=== PATIENT | female | born 1980 | race Caucasian/White ===

== ENCOUNTER 2017-10-19 21:39 | Emergency (ER) | payer MEDICARE, MEDICAID, SELFPAY ==
[2017-10-19 21:45] VITALS: BP 144/87; PULSE 86; RESP 16; TEMP 36.7; O2SAT 98
--- NOTE | 2017-10-20 03:03 | ED.GENADUL_ITS ---
Discharge Plan Discharge Details Chief Complaint: RashLesion Clinical Impression: Hymenoptera reaction, Insect bite Primary Care Provider: Talisha Treviño ED Provider: Yoel White Disposition Patient Disposition: HOME Condition: Good Home Meds and New Rx's Prescriptions: New diphenhydramine-zinc acetate [Benadryl Extra Strength] 2-0.1 % cream 1 applic TP TID Qty: 15 RF: 0 No Action hydrochlorothiazide 12.5 MG capsule PO RF: 0 amitriptyline 100 mg Tablet RF: 0 Discharge Instructions Instructions: Insect Bite or Sting (ED) Additional Instructions: Please use the Benadryl cream as directed. Please follow-up with your primary care provider as soon as possible for reassessment. Please avoid any further contact with bedbugs. If you notice any worsening of your symptoms, or any new symptoms such as vomiting, diarrhea, fever, chills, shortness of breath, chest pain, numbness, weakness, or fainting , please return immediately to the emergency department for reevaluation. Please follow up with your primary care provider as soon as possible for reassessment and reevaluation. As always, it was a pleasure participating in your medical care today. Medical Decision Making MDM Narrative Medical decision making narrative: This is a 37-year-old female who presents for evaluation of bug bites, she is concerned that is secondary to bedbugs. She does demonstrate 5 lesions, 2 on her left calf, 3 on her scalp. There is no evidence of infection, abscess, drainage, or other significant abnormality. They are mildly itchy. With no signs of systemic infection, I feel that she is safe for discharge home. It may be from bedbugs or some other hymenoptera or arthropod bite. We will give the patient a prescription for Benadryl cream. Recommended close follow-up with PCP. We discussed red flags for which return the patient understood. I have extensively reviewed the treatment plan and discharge instructions with the patient. I have addressed all patient concerns at this time. The patient was made aware of what symptoms to monitor for that would warrant a return to the emergency department. Discussed the plan with the patient, they demonstrate verbal understanding and agreement with our assessment and plan at this time. HPI - General Adult General Date/Time Provider Initiated Documentation: 10/19/17 22:28 . HPI Narrative: This is a 37-year-old female with a past medical history of hypertension, tubal appendectomy, who presents today for evaluation of bites on her head and her calf. The patient states that she has bedbugs at home, and noticed some bites on her left calf and scalp. She talked to the landlord about it as well as her health services department who recommended she come to the ER for documentation of the bites. Patient admits to mild itching for these areas. She denies any systemic symptoms of fevers or chills. She denies any history of significant severe allergies, anaphylaxis, no other complaints. She has no other complaints at this time. She denies IV or illicit drug use. Related Data Home Medications Medication Instructions Recorded Confirmed hydrochlorothiazide 0 PO 07/14/17 amitriptyline 10/19/17 Previous Rx's Medication Instructions Recorded diphenhydramine-zinc acetate 1 applic TP TID #15 gm 10/19/17 [Benadryl Extra Strength] Allergies Allergy/AdvReac Type Severity Reaction Status Date / Time No Known Allergies Allergy Unverified 08/05/17 10:08 General Stated Complaint: RashLesion CLIFFORD: 5 Review of Systems Review of Systems 10 point review of systems was performed, pertinent positives and negatives are noted in the history of present illness. [facility] Medical History Abdominal pain Asthma Calcium nephrolithiasis Chronic back pain Dyspareunia, female Hypertension Tobacco use Social History Smoking/Tobacco Use Status: Current every day Surgical History Ligation of fallopian tube Tooth extraction bone spur R foot. Exam Narrative Exam Narrative: 1.Const: Well-nourished, Well-developed, appearing stated age 2.Eyes: PERRL, no conjunctival injection, and symmetrical lids. 3.ENT: Atraumatic external nose and ears. Moist MM. Neck: Symmetric, trachea midline, No thyromegaly. 4.CVS: +S1/S2, No murmurs or gallops. Peripheral pulses 2+ and equal in all extremities. Brisk capillary refill in all extremities. 5.RESP: Unlabored respiratory effort. Clear to auscultation bilaterally. No wheezes rales or rhonchi 6.GI: Soft, Nontender/Nondistended, No hepatosplenomegaly. No guarding or rebound. 7.MSK: Normocephalic/Atraumatic, Extremities w/o deformity or ttp No cyanosis or clubbing, Normal movement of all extremities 8.Skin: Warm, Dry. The patient has 5 total small erythematous lesions roughly 5 mm in diameter each. They look like small mosquito bites or insect bites. 2 are located on her left calf, and 3 are on her scalp. No bleeding, no signs of infection. No discharge. No signs of an abscess. No other abnormalities. 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 Sensation grossly intact, no focal neurologic deficits. 10.Psych: (AAO) x3. Appropriate mood and affect Course Vital Signs Temperature 36.7 C 10/19/17 21:45 Pulse 86 10/19/17 21:45 Respiratory Rate 16 10/19/17 21:45 Blood Pressure 144/87 H 10/19/17 21:45 Pulse Oximetry 98 10/19/17 21:45 Temperature 36.7 C 10/19/17 21:45 Pulse 86 10/19/17 21:45 Respiratory Rate 16 10/19/17 21:45 Blood Pressure 144/87 H 10/19/17 21:45 Pulse Oximetry 98 10/19/17 21:45
== END 2017-10-19 22:36 | disposition home or self-care (01) ==
PROVIDERS: Emergency Provider Student in an Organized Health Care Education/Training Program; PCP Family Medicine
DX: S80.862A Insect bite (nonvenomous), left lower leg, initial encounter (principal); S00.06XA Insect bite (nonvenomous) of scalp, initial encounter; W57.XXXA Bitten or stung by nonvenomous insect and other nonvenomous arthropods, initial encounter; I10 Essential (primary) hypertension
CPT/HCPCS: 99283

== ENCOUNTER 2018-02-14 20:37 | Emergency (ER) | payer MEDICARE, MEDICAID, SELFPAY ==
[2018-02-14 20:44] VITALS: BP 129/71; PULSE 110; RESP 16; TEMP 36.5; O2SAT 96
[2018-02-14 21:28] VITALS: BP 129/71; PULSE 110; RESP 16; TEMP 36.5; O2SAT 96
--- NOTE | 2018-02-14 21:31 | ED.GENADUL_ITS ---
Discharge Plan Disposition Patient Disposition: HOME Condition: Fair Discharge Details Chief Complaint: EarProblem Clinical Impression: URI (upper respiratory infection) Primary Care Provider: Talisha Treviño ED Provider: Ambreen Robins Home Meds and New Rx's Prescriptions: New amoxicillin 500 mg capsule 500 mg PO TID Qty: 21 RF: 0 Continued lisinopril 10 mg Tablet 10 mg PO DAILY RF: 0 cyclobenzaprine 10 mg Tablet 10 mg PO BID RF: 0 amitriptyline 100 mg Tablet RF: 0 Discharge Instructions Instructions: Upper Respiratory Infection (ED) Additional Instructions: Encourage hydration. Tylenol and/or Motrin as needed for discomfort. At this point, you have fluid behind your ear but it is likely viral. However, if your pain increases, persists over the next 48 hours, you develop fever begin antibiotics as prescribed. If you begin the antibiotics please take the entire course. If you develop shortness of breath, difficulty breathing or other new/worsening symptoms please seek care urgently once again. Follow up with primary care in one week if not improving. Referrals: Talisha Treviño [Primary Care Provider] - Medical Decision Making Patient is a 37 year old female, accompanied by daughter, with c/c of right ear pain and left eye irritation. Reprots that she has had cold with cough, congestion and sore throat for the past 2-3 days. Denies fevers/chill. No GI upset. States that right ear began hurting over the past 24-48 hours. No change in hearing. States that she feels that she has water in her ear. Has tried to flush the ear. Also noted discharge from the left eye yesterday. None recently. Was also noting the left eye to be injected. On exam, patient appears nontoxic. She has fluid behind the right TM with mild erythema. Left eye is normal. No discharge, no injection. PERRLA. Lungs clear. Advised that at this time her history and exam is most consistent with viral URI. Encouraged hydration. Tylneol and/or Ibuprofen. Will prescribed Amoxicllin with a watch and wait approach with insructions on when to begin abx. Advised on worsening symptoms that should prompt her to seek care urgently once again. Advised f/u with PCP in one week if not improving. All of her questions and concerns were addressed, she is in agreement iwth this plan. HPI General Mode of arrival: ambulatory . Date/Time Provider Initiated Documentation: 02/14/18 21:07 . Limitations to Documentation: no limitations . Information obtained by: patient and family . History of Present Illness 37 year old F presents to the emergency department with the chief complaint of URI symptoms , described as moderate, Quality is described as aching (right ear), and is localized to the head (right ear) and mouth (sore throat). Patient reports no radiation. Patient started experiencing this day(s) (4) and it has been constant. No relieving factors improve symptom(s), No exacerbating factors reported . Patient notes cough; denies fever/chills, headaches, loss of appetite, nausea/vomiting, rash and shortness of breath. Patient did receive the following treatments prior to arrival, none Related Data Home Medications Medication Instructions Recorded Confirmed amitriptyline 10/19/17 amoxicillin 500 mg PO TID #21 cap 02/14/18 cyclobenzaprine 10 mg PO BID 02/14/18 02/14/18 lisinopril 10 mg PO DAILY 02/14/18 02/14/18 Previous Rx's Medication Instructions Recorded amoxicillin 500 mg PO TID #21 cap 02/14/18 Allergies Allergy/AdvReac Type Severity Reaction Status Date / Time No Known Allergies Allergy Unverified 02/14/18 20:49 General Stated Complaint: EarProblem CLIFFORD: 4 Review of Systems Constitutional Reports as per HPI and Denies headache(s) Eyes Reports as per HPI, Denies blurry vision, Denies change in vision, Reports eye discharge (had left eye discharge yesterday), Denies itchy eyes and Denies eye pain ENT Reports as per HPI, Denies abnormal hearing, Denies ear discharge, Reports otalgia, Denies headache(s), Reports nasal congestion, Denies sinus pain, Reports sore throat, Denies throat swelling and Denies tongue swelling Cardiovascular Reports as per HPI, Denies chest pain and Denies dyspnea Respiratory Reports as per HPI, Reports cough, Denies pain on inspiration, Denies pain with cough, Denies dyspnea and Denies wheezing Gastrointestinal Reports as per HPI, Denies abdominal pain, Denies change in bowel habits, Denies nausea and Denies vomiting Integumentary/Breasts Reports as per HPI and Denies rash Neurologic Denies abnormal hearing and Denies headache(s) Allergic/Immunologic Denies itchy eyes, Denies throat swelling, Denies tongue swelling and Denies wheezing PFSH Medical History Abdominal pain Asthma Calcium nephrolithiasis Chronic back pain Dyspareunia, female Hypertension Tobacco use Surgical History Ligation of fallopian tube Tooth extraction bone spur R foot. Social History Smoking/Tobacco Use Status: Current every day History History Para 0 Hx # Term Pregnancies Multiple births Hx # Pregnancies Ectopic pregnancies AB induced Hx Number of Living Children AB spontaneous Exam Const General: cooperative, healthy appearing, comfortable, no acute distress, well developed and well groomed Nutritional Appearance: average body habitus and well nourished Orientation: alert and awake HENMT Head: normal to inspection, normocephalic and atraumatic Ears: hearing grossly normal bilaterally, external ears normal, TM normal on the left, mastoids normal and TM abnormal wth effusion serous on the right and erythematous on the right; with no loss of landmarks, not obstructed by cerumen, not perforated and not retracted General nose exam: external nose normal and nares normal Face and sinus: normal facial exam, sinuses nontender and face symmetric Mouth: oral mucosae normal, lip normal, tongue normal, oropharynx normal and moist mucous membranes Teeth and gingiva: dentition normal Throat: posterior oropharynx normal, tonsils normal and uvula midline Eyes General: appearance normal, both eyes and all related structures Neck Neck: normal visual inspection, full ROM, no lymphadenopathy and no meningeal signs Resp Effort & Inspection: normal respiratory effort, able to speak in complete sentences and no respiratory distress Auscultation: clear to auscultation bilaterally, no rales, no rhonchi and no wheezes Cardio Rate: regular rate Rhythm: regular rhythm Heart Sounds: S1 normal and S2 normal Skin General skin exam: no rashes or lesions noted Neuro General: alert and awake Cognition: normal cognition Speech: speech normal Gait: normal gait Psych Appearance: grossly normal and well kempt Mental Status: mental status grossly normal Speech and Movement: speech and movement normal Course Vital Signs Temperature 36.5 C 02/14/18 20:44 Pulse 110 H 02/14/18 20:44 Respiratory Rate 16 02/14/18 20:44 Blood Pressure 129/71 02/14/18 20:44 Pulse Oximetry 96 02/14/18 20:44 Temperature 36.5 C 02/14/18 20:44 Temperature Source Skin 02/14/18 20:44 Pulse 110 H 02/14/18 20:44 Respiratory Rate 16 02/14/18 20:44 Respiratory Effort Non-Labored 02/14/18 20:51 Blood Pressure 129/71 02/14/18 20:44 Pulse Oximetry 96 02/14/18 20:44 Oxygen Delivery Method Room Air 02/14/18 20:44 Oxygen Flow Rate 0 02/14/18 20:44
== END 2018-02-14 21:30 | disposition home or self-care (01) ==
PROVIDERS: Emergency Provider Physician Assistant; PCP Family Medicine
DX: J06.9 Acute upper respiratory infection, unspecified (principal); I10 Essential (primary) hypertension
CPT/HCPCS: 99283

== ENCOUNTER 2018-06-01 20:03 | Emergency (ER) | payer MEDICARE, MEDICAID, SELFPAY ==
[2018-06-01 20:04] VITALS: BP 156/86; PULSE 108; RESP 16; TEMP 36.5; O2SAT 99
--- NOTE | 2018-06-01 20:06 | W.ED.GENAD ---
Discharge Plan Disposition Patient Disposition: HOME Condition: Good Discharge Details Chief Complaint: Orthopedic Clinical Impression: Finger pain, right Primary Care Provider: Talisha Treviño ED Provider: Yoni Harris Meds and New Rx's Prescriptions: New naproxen sodium 500 mg tablet, ER multiphase 24 hr 1,000 mg PO DAILY Qty: 20 RF: 0 Continued cyclobenzaprine 10 mg Tablet 10 mg PO BID RF: 0 albuterol sulfate [Ventolin HFA] 90 mcg/actuation Hfa Aerosol Inhaler 2 puff Inhalation Q6H PRNRF: 0 amitriptyline 100 mg Tablet RF: 0 Discharge Instructions Additional Instructions: X-rays reveal no significant bony injury or deformity. With a splint during the day to prevent overuse. You may remove at night while sleeping. Take naproxen once a day as directed. Follow-up with primary care next week. Return to ED for fever, increased swelling/redness. Referrals: Talisha Treviño [Primary Care Provider] - Medical Decision Making Does not appear to be related to gout or septic joint. There is no erythema or warmth. She denies any specific injury but will get x-ray since it is not getting better. If negative will continue nonsteroidals but also placed in a splint for mobilization and referred back to primary care in a week or so. Patient x-ray per my review is negative. There is no bony abnormality identified. Patient placed in a baseball aluminum/foam splint by me. Patient told to wear during the day but not necessarily at night. Will be placed on naproxen twice a day for the next week. Follow-up with primary care next week. Return to ED if fever, increasing pain/redness/swelling. HPI General Mode of arrival: ambulatory. Date/Time Provider Initiated Documentation: 06/01/18 20:05. Limitations to Documentation: no limitations. Information obtained by: patient. HPI Narrative: Patient presents to ED with right index finger pain and swelling. There is no specific injury that she recalls. It is mostly swollen and painful at the PIP joint. She has difficulty bending the finger. This started about a week and a half ago. She has used ice, ibuprofen, acetaminophen. She denies fevers. She denies any redness or warmth to the area. She was hoping that it would just get better but since it has not and she feels is getting worse she came to the ED tonight. She is right-hand dominant. Related Data Home Medications Medication Instructions Recorded Confirmed amitriptyline 10/19/17 cyclobenzaprine 10 mg PO BID 02/14/18 06/01/18 albuterol sulfate [Ventolin HFA] 2 puff INHALATION Q6H PRN 06/01/18 06/01/18 naproxen sodium 1,000 mg PO DAILY #20 tab 06/01/18 Previous Rx's Medication Instructions Recorded naproxen sodium 1,000 mg PO DAILY #20 tab 06/01/18 Allergies Allergy/AdvReac Type Severity Reaction Status Date / Time No Known Allergies Allergy Unverified 06/01/18 20:11 General CLIFFORD: 4 Review of Systems Constitutional Denies fever(s) Musculoskeletal Reports joint swelling and Reports stiffness Integumentary/Breasts Denies erythema and Denies sores [facility] Medical History Abdominal pain (Chronic) Asthma (Chronic) Calcium nephrolithiasis (Chronic) Chronic back pain (Chronic) Hypertension (Chronic) Tobacco use (Chronic) Surgical History Ligation of fallopian tube (Chronic) Tooth extraction (Resolved) bone spur R foot. (Resolved) Social History Smoking/Tobacco Use Status: Current every day Alcohol Intake: never Drug use: Never Substance use type: does not use Do you feel safe at home: Yes Do you feel safe in your relationship?: Yes History History Para 0 Hx # Term Pregnancies Multiple births Hx # Pregnancies Ectopic pregnancies AB induced Hx Number of Living Children AB spontaneous Exam Narrative Exam Narrative: Well-developed well-nourished female in no acute distress. Afebrile. Right hand with swelling to the index PIP joint. No erythema or warmth noted. No swelling of any other joints noted. Decreased range of motion of the index finger because of pain. Only the PIP joint is affected. Wrist is normal. Left hand normal. Procedures Orthopedic Splinting/Casting Injury #1: Side: right Upper Extremity Injury Location: finger Upper Extremity Immobilizer: aluminum form splint
--- NOTE | 2018-06-01 20:11 | ED.GENADUL_ITS ---
Discharge Plan Disposition Patient Disposition: HOME Condition: Good Discharge Details Chief Complaint: Orthopedic Clinical Impression: Finger pain, right Primary Care Provider: Talisha Treviño ED Provider: Yoni Harris Meds and New Rx's Prescriptions: New naproxen sodium 500 mg tablet, ER multiphase 24 hr 1,000 mg PO DAILY Qty: 20 RF: 0 Continued cyclobenzaprine 10 mg Tablet 10 mg PO BID RF: 0 albuterol sulfate [Ventolin HFA] 90 mcg/actuation Hfa Aerosol Inhaler 2 puff Inhalation Q6H PRNRF: 0 amitriptyline 100 mg Tablet RF: 0 Discharge Instructions Additional Instructions: X-rays reveal no significant bony injury or deformity. With a splint during the day to prevent overuse. You may remove at night while sleeping. Take naproxen once a day as directed. Follow-up with primary care next week. Return to ED for fever, increased swelling/redness. Referrals: Talisha Treviño [Primary Care Provider] - Medical Decision Making Does not appear to be related to gout or septic joint. There is no erythema or warmth. She denies any specific injury but will get x-ray since it is not getting better. If negative will continue nonsteroidals but also placed in a splint for mobilization and referred back to primary care in a week or so. Patient x-ray per my review is negative. There is no bony abnormality identified. Patient placed in a baseball aluminum/foam splint by me. Patient told to wear during the day but not necessarily at night. Will be placed on naproxen twice a day for the next week. Follow-up with primary care next week. Return to ED if fever, increasing pain/redness/swelling. HPI General Mode of arrival: ambulatory . Date/Time Provider Initiated Documentation: 06/01/18 20:05 . Limitations to Documentation: no limitations . Information obtained by: patient . HPI Narrative: Patient presents to ED with right index finger pain and swelling. There is no specific injury that she recalls. It is mostly swollen and painful at the PIP joint. She has difficulty bending the finger. This started about a week and a half ago. She has used ice, ibuprofen, acetaminophen. She denies fevers. She denies any redness or warmth to the area. She was hoping that it would just get better but since it has not and she feels is getting worse she came to the ED tonight. She is right-hand dominant. Related Data Home Medications Medication Instructions Recorded Confirmed amitriptyline 10/19/17 cyclobenzaprine 10 mg PO BID 02/14/18 06/01/18 albuterol sulfate [Ventolin HFA] 2 puff INHALATION Q6H PRN 06/01/18 06/01/18 naproxen sodium 1,000 mg PO DAILY #20 tab 06/01/18 Previous Rx's Medication Instructions Recorded naproxen sodium 1,000 mg PO DAILY #20 tab 06/01/18 Allergies Allergy/AdvReac Type Severity Reaction Status Date / Time No Known Allergies Allergy Unverified 06/01/18 20:11 General CLIFFORD: 4 Review of Systems Constitutional Denies fever(s) Musculoskeletal Reports joint swelling and Reports stiffness Integumentary/Breasts Denies erythema and Denies sores [facility] Medical History Abdominal pain (Chronic) Asthma (Chronic) Calcium nephrolithiasis (Chronic) Chronic back pain (Chronic) Hypertension (Chronic) Tobacco use (Chronic) Surgical History Ligation of fallopian tube (Chronic) Tooth extraction (Resolved) bone spur R foot. (Resolved) Social History Smoking/Tobacco Use Status: Current every day Alcohol Intake: never Drug use: Never Substance use type: does not use Do you feel safe at home: Yes Do you feel safe in your relationship?: Yes History History Para 0 Hx # Term Pregnancies Multiple births Hx # Pregnancies Ectopic pregnancies AB induced Hx Number of Living Children AB spontaneous Exam Narrative Exam Narrative: Well-developed well-nourished female in no acute distress. Afebrile. Right hand with swelling to the index PIP joint. No erythema or warmth noted. No swelling of any other joints noted. Decreased range of motion of the index finger because of pain. Only the PIP joint is affected. Wrist is normal. Left hand normal. Procedures Orthopedic Splinting/Casting Injury #1: Side: right Upper Extremity Injury Location: finger Upper Extremity Immobilizer: aluminum form splint
--- NOTE | 2018-06-01 20:19 | DI.RAD_ITS ---
SYMPTOM/DIAGNOSIS: PAIN, SWELLING PIP RIGHT INDEX FINGER: Three views were obtained. No fracture is seen.
--- NOTE | 2018-06-01 21:13 | DI.VRAD_ITS ---
EXAM: XR Right Finger(s), 2 or More Views EXAM DATE/TIME: 06/01/2018 8:45 PM CLINICAL HISTORY: 38 years old, female; Signs and symptoms; Other: Pain and swelling pip TECHNIQUE: Imaging protocol: XR Right finger minimum 2 views. COMPARISON: No relevant prior studies available. FINDINGS: Bones/joints: Grossly unremarkable. Soft tissues: Suggestion of mild soft tissue swelling. IMPRESSION: Mild soft tissue swelling, no aggressive osseous lesions identified. Dictated and Authenticated by: Myron Peters MD. Ordering:YUNG Vallejo MD
== END 2018-06-01 21:15 | disposition home or self-care (01) ==
PROVIDERS: Emergency Provider Emergency Medicine; PCP Family Medicine
DX: M79.644 Pain in right finger(s) (principal)
CPT/HCPCS: 99283; 73140; 99282

== ENCOUNTER 2018-06-02 11:29 | Emergency (ER) | payer MEDICARE, MEDICAID, SELFPAY ==
[2018-06-02 11:31] VITALS: BP 141/76; PULSE 100; RESP 24; TEMP 36.6; O2SAT 100
--- NOTE | 2018-06-02 11:47 | DI.RAD_ITS ---
SYMPTOMS/DIAGNOSIS: SHORTNESS OF BREATH PA AND LATERAL CHEST: The heart is not enlarged. There is a retrocardiac hiatus hernia. The lungs are clear. No pleural effusion seen. CONCLUSION: No evidence of acute process.
--- NOTE | 2018-06-02 11:52 | ED.GENADUL_ITS ---
Discharge Plan Disposition Patient Disposition: HOME Condition: Improving Discharge Details Chief Complaint: SOB Clinical Impression: Shortness of breath Primary Care Provider: Talisha Treviño ED Provider: Bj Prince Home Meds and New Rx's Prescriptions: Continued cyclobenzaprine 10 mg Tablet 10 mg PO BID RF: 0 albuterol sulfate [Ventolin HFA] 90 mcg/actuation Hfa Aerosol Inhaler 2 puff Inhalation Q6H PRNRF: 0 naproxen sodium 500 mg tablet, ER multiphase 24 hr 1,000 mg PO DAILY Qty: 20 RF: 0 amitriptyline 100 mg Tablet RF: 0 Discharge Instructions Instructions: Dyspnea (ED) Additional Instructions: Continue to use your inhaler as directed and make sure that you use this with the spacer as it will give you more medication into your lungs and help with your shortness of breath. Please follow-up with respiratory therapy for further testing and return to the emergency department for any new or significant worsening of symptoms or follow-up with your primary care as needed for reassessment. Referrals: Talisha Treviño [Primary Care Provider] - (As needed for reassessment or if not improving) Discharge Data Discharge Date/Time-TO BE ENTERED AT DEPARTURE: 06/02/18 14:30 Medical Decision Making Patient presenting the emergency department for chief complaint of shortness of breath. Patient states that she has had a chronic cough for over the past month but today while riding in the back She started getting some shortness of breath. She used an inhaler which did not seem to help much and when she went up the stairs to her apartment she had continued shortness of breath causing her to come to the emergency department due to feeling that her inhaler did not help her. Patient denies any fever chills, productive cough, hemoptysis, syncope or chest pain. Physical exam is unremarkable and shows actually clear lung sounds with no diminished, no crackles no wheeze, patient is slightly tachypneic otherwise exam is unremarkable specifically showing no hypoxia. Given the patient is a smoker we do plan on doing chest x-ray and checking d-dimer along with labs given duration of symptoms. Pending results patient given albuterol nebulizer. Review of labs show no leukocytosis and a chronic anemia, low CO2 otherwise not deny diagnostic CMP, negative d-dimer. Chest x-ray shows no acute findings. Patient reassessed and states some improvement after albuterol nebulizer so RT was consulted for spacer instructions as patient states that she does not have a spacer. Patient does report improvement of symptoms after using inhaler with spacer. I feel that given patient's history of smoking there may be a chance she is developing COPD but at this time I also question possible anxiety as a source of her event today. Patient encouraged to continue to use albuterol inhaler and pulmonary function test referral was also placed to have possibility of COPD further evaluated. After discussion of diagnosis and plan of care patient has no further needs, questions, or concerns and states clear understanding to return to the emergency department for any worsening symptoms. HPI General Mode of arrival: ambulatory . Date/Time Provider Initiated Documentation: 06/02/18 11:30 . Limitations to Documentation: no limitations . Information obtained by: patient and RN notes reviewed . History of Present Illness 38 year old F presents to the emergency department with the chief complaint of Shortness of breath, Quality is described as other (Denies pain), Patient started experiencing this month(s) (1-worsening over the past couple hours) and it has been constant. No relieving factors improve symptom(s), Patient did receive the following treatments prior to arrival, other (Albuterol inhaler) Related Data Home Medications Medication Instructions Recorded Confirmed amitriptyline 10/19/17 cyclobenzaprine 10 mg PO BID 02/14/18 06/01/18 albuterol sulfate [Ventolin HFA] 2 puff INHALATION Q6H PRN 06/01/18 06/01/18 naproxen sodium 1,000 mg PO DAILY #20 tab 06/01/18 Previous Rx's Medication Instructions Recorded naproxen sodium 1,000 mg PO DAILY #20 tab 06/01/18 Allergies Allergy/AdvReac Type Severity Reaction Status Date / Time No Known Allergies Allergy Unverified 06/01/18 20:11 General Stated Complaint: SOB CLIFFORD: 3 Review of Systems Constitutional Denies chills, Denies fever(s) and Denies malaise Cardiovascular Denies chest pain, Denies chest pain with activity, Denies syncope, Denies irregular heart rhythm and Reports dyspnea Respiratory Reports as per HPI, Reports cough, Denies hemoptysis and Reports dyspnea Neurologic Denies syncope Psychiatric Denies anxiety PFSH Medical History Abdominal pain (Chronic) Asthma (Chronic) Calcium nephrolithiasis (Chronic) Chronic back pain (Chronic) Hypertension (Chronic) Tobacco use (Chronic) Surgical History Ligation of fallopian tube (Chronic) Tooth extraction (Resolved) bone spur R foot. (Resolved) Social History Smoking/Tobacco Use Status: Current every day Alcohol Intake: never Drug use: Never Substance use type: does not use Do you feel safe at home: Yes Do you feel safe in your relationship?: Yes History History Para 0 Hx # Term Pregnancies Multiple births Hx # Pregnancies Ectopic pregnancies AB induced Hx Number of Living Children AB spontaneous Exam Const General: cooperative, healthy appearing, comfortable, no acute distress, not diaphoretic and not ill appearing Nutritional Appearance: average body habitus Orientation: alert, awake and oriented x3 Limitations: mental status not altered Neck Neck: normal visual inspection, full ROM, trachea midline, supple and no anterior neck swelling Thyroid: thyroid normal Carotids: normal carotid upstroke and no bruits Chest Chest: normal inspection of the chest Resp Effort & Inspection: normal respiratory effort and able to speak in complete sentences Auscultation: clear to auscultation bilaterally Cardio Jugular venous pressure: no JVD Palpation: normal PMI Rate: regular rate Rhythm: regular rhythm Heart Sounds: S1 normal, S2 normal, no click, no gallops, no murmurs and no rubs Bruits: no abdominal aortic bruits and no carotid bruits Pulses: radial pulses present bilaterally 2+ Skin General skin exam: no rashes or lesions noted Neuro General: alert, awake, oriented x3, tone normal and moves all extremities Course Vital Signs Temperature 36.6 C 06/02/18 11:31 Pulse 100 H 06/02/18 11:31 Respiratory Rate 24 06/02/18 11:31 Blood Pressure 141/76 H 06/02/18 11:31 Pulse Oximetry 100 06/02/18 11:31 Temperature 36.6 C 06/02/18 11:31 Temperature Source Skin 06/02/18 11:31 Pulse 100 H 06/02/18 11:31 Respiratory Rate 24 06/02/18 11:31 Respiratory Effort 06/02/18 11:46 Blood Pressure 141/76 H 06/02/18 11:31 Blood Pressure Position Sitting 06/02/18 11:31 Pulse Oximetry 100 06/02/18 11:31 Oxygen Delivery Method Room Air 06/02/18 11:31 Oxygen Flow Rate 0 06/02/18 11:31 Pain Level 5 06/02/18 11:31
[2018-06-02] MEDS: Normal Saline Flush 10 ML SYR IVP (12:00)
[2018-06-02 12:09] LABS: Abs Immature Grans 0.03 k/cumm (0.0-0.09); Absolute Basophil Count 0.06 k/cumm (0.0-0.2); Absolute Eosinophil Count 0.15 k/cumm (0.0-0.7); Absolute Lymphocyte Count 2.83 k/cumm (1.2-3.4); Absolute Monocyte Count 0.73 k/cumm (0.11-0.7); Absolute Neutrophil Count 5.82 k/cumm (1.2-6.7); Basophils % 0.6; Eosinophils % 1.6; HCT 36.4 % (36.0-46.0); HGB 11.4 g/dL (12.0-15.5); Immature Grans % 0.3; Lymphocytes % 29.4; Mean Corp. HGB Concentration 31.3 g/dL (32.0-36.0); Mean Corpuscular Hemoglobin 22.5 pg (27.0-33.0); Mean Corpuscular Volume 71.9 fL (80-95); Mean Platelet Volume 10.4 fL (8.0-11.0); Monocytes % 7.6; Neutrophils % 60.5; Platelet Count 385 x1000/uL (130-400); RBC 5.06 m/cumm (4.00-5.20); RBC Distribution Width 17.8 % (11.7-14.6); White Blood Cell Count 9.62 k/cumm (4.4-10.8)
[2018-06-02 12:21] LABS: ALT 20 U/L (12-78); AST 10 U/L (15-37); Albumin 3.9 g/dL (3.4-5.0); Alkaline Phosphatase 110 U/L (46-116); Anion Gap 13.2 mmol/L (3-11); BUN 16 mg/dL (7-18); Bilirubin, Total 0.2 mg/dL (0.2-1.0); CO2 20.8 mmol/L (21.0-32.0); CREATININE 0.94 mg/dL (0.55-1.02); Calcium 9.1 mg/dL (8.5-10.1); Chloride 105 mmol/L (98-107); Glucose 177 mg/dL (70-100); Potassium 3.6 mmol/L (3.5-5.1); Sodium 139 mmol/L (136-145); Total Protein 8.2 g/dL (6.4-8.2)
[2018-06-02 12:40] LABS: D-Dimer 246 ng/mlFEU (<500)
[2018-06-02 12:43] LABS: Anisocytosis 2+; Hypochromasia 1+; Microcytosis 2+; Poikilocytes 2+; Polychromasia Present
[2018-06-02 12:53] VITALS: RESP 24
[2018-06-02 12:57] LABS: Diff Comment Diff Reviewed
[2018-06-02] MEDS: Albuterol 2.5 MG/3 ML INH SOLN VIAL UPD (12:58)
[2018-06-02 14:33] VITALS: BP 132/70; PULSE 82; RESP 18; TEMP 36.6; O2SAT 100
== END 2018-06-02 14:30 | disposition home or self-care (01) ==
PROVIDERS: Emergency Provider Nurse Practitioner Family; PCP Family Medicine
DX: R06.02 Shortness of breath (principal); D50.9 Iron deficiency anemia, unspecified; F17.210 Nicotine dependence, cigarettes, uncomplicated
CPT/HCPCS: 36415; 80053; 94640; 99284; 71046; 85025; 85379; J7613

== ENCOUNTER 2018-06-09 14:50 | Emergency (ER) | payer MEDICARE, MEDICAID, SELFPAY ==
[2018-06-09 14:52] VITALS: BP 132/76; PULSE 104; RESP 16; TEMP 36.5; O2SAT 96
--- NOTE | 2018-06-09 15:12 | DI.RAD_ITS ---
SYMPTOMS/DIAGNOSIS: PAIN, INJURY RIGHT INDEX FINGER: No fracture or dislocation is seen. IMPRESSION: Negative right index finger.
--- NOTE | 2018-06-09 15:16 | W.ED.GENAD ---
Discharge Plan Disposition Patient Disposition: HOME Condition: Stable Discharge Details Chief Complaint: Recheck Clinical Impression: Mallet deformity of right index finger Primary Care Provider: Talisha Treviño ED Provider: Bj Prince Home Meds and New Rx's Prescriptions: Continued cyclobenzaprine 10 mg Tablet 10 mg PO BID RF: 0 albuterol sulfate [Ventolin HFA] 90 mcg/actuation Hfa Aerosol Inhaler 2 puff Inhalation Q6H PRNRF: 0 naproxen sodium 500 mg tablet, ER multiphase 24 hr 1,000 mg PO DAILY Qty: 20 RF: 0 amitriptyline 100 mg Tablet RF: 0 Discharge Instructions Instructions: Jammed Finger (ED) Additional Instructions: Please continue to take [id number] naproxen or ibuprofen acetaminophen combination as directed on bottles. Please call orthopedic office on Tuesday for arrangement of follow-up appointment. Please wear mallet splint at all times. Referrals: Cisco Smith MD [ [facility] STAFF PHYSICIAN] - (Call the office for arrangement of follow-up appointment) Discharge Data Discharge Date/Time-TO BE ENTERED AT DEPARTURE: 06/09/18 16:15 Medical Decision Making Patient presenting to the emergency department for chief complaint of right index finger injury and pain. Patient states that she had injured it approximately 2 weeks ago and seen in the emergency department and was placed in a foam metal splint. Pain had not changed as she intermittently wore the splint over the last 2 weeks but then today she reinjured her finger stating she bent it backwards and then after then could not fully straighten her finger. Physical exam shows some swelling and tenderness to the PIP with mallet deformity to the DIP along with inability to fully extend DIP. Patient does otherwise have flexion of the finger and both flexion and extension movement of PIP.. Exam is otherwise unremarkable. Plan to perform radiological imaging to rule out avulsion fracture but mostly suspicious of ligamentous type injury. Patient given ibuprofen acetaminophen pending results. Review of radiological imaging shows no signs of acute fracture so patient placed in mallet finger splinting. And placed upon Ortho list for arrangement of follow-up appointment. Given the patient was in a straight finger splint. After discussion of diagnosis and plan of care patient has no further needs, questions, or concerns and states clear understanding to return to the emergency department for any worsening symptoms. HPI General Mode of arrival: ambulatory. Date/Time Provider Initiated Documentation: 06/09/18 14:50. Limitations to Documentation: no limitations. Information obtained by: patient and RN notes reviewed. History of Present Illness 38 year old F presents to the emergency department with the chief complaint of finger pain, described as severe, with intensity rated at 10. Quality is described as sharp, and is localized to the right and upper extremity. Patient started experiencing this week(s) (2) and it has been constant. No relieving factors improve symptom(s), Movement worsens symptoms . Patient notes no other symptoms.. Patient did receive the following treatments prior to arrival, NSAID Related Data Home Medications Medication Instructions Recorded Confirmed amitriptyline 10/19/17 cyclobenzaprine 10 mg PO BID 02/14/18 06/01/18 albuterol sulfate [Ventolin HFA] 2 puff INHALATION Q6H PRN 06/01/18 06/01/18 naproxen sodium 1,000 mg PO DAILY #20 tab 06/01/18 Previous Rx's Medication Instructions Recorded naproxen sodium 1,000 mg PO DAILY #20 tab 06/01/18 Allergies Allergy/AdvReac Type Severity Reaction Status Date / Time No Known Allergies Allergy Unverified 06/01/18 20:11 General Stated Complaint: Recheck CLIFFORD: 5 Review of Systems Musculoskeletal Reports as per HPI, Reports joint swelling, Reports limited range of motion, Denies numbness and Denies tingling Integumentary/Breasts Denies rash Neurologic Denies numbness and Denies tingling [facility] Medical History Abdominal pain (Chronic) Asthma (Chronic) Calcium nephrolithiasis (Chronic) Chronic back pain (Chronic) Hypertension (Chronic) Tobacco use (Chronic) Surgical History Ligation of fallopian tube (Chronic) Tooth extraction (Resolved) bone spur R foot. (Resolved) Social History Smoking/Tobacco Use Status: Current every day Alcohol Intake: never Drug use: Never Substance use type: does not use Do you feel safe at home: Yes Do you feel safe in your relationship?: Yes History History Para 0 Hx # Term Pregnancies Multiple births Hx # Pregnancies Ectopic pregnancies AB induced Hx Number of Living Children AB spontaneous Exam Const General: cooperative and no acute distress Orientation: alert, awake and oriented x3 Resp Effort & Inspection: normal respiratory effort and able to speak in complete sentences Cardio Rate: regular rate Rhythm: regular rhythm Extrem Right upper extremity: wrist Details: normal to inspection and normal ROM; no tenderness and hand Details: normal capillary refill, neurosensory exam normal, tendon exam abnormal Location: function limited secondary to pain (2nd digit), tenderness Location: of the 2nd digit Location: at the PIP joint and at the DIP joint, swelling Location: of the 2nd digit Location: at the PIP joint and other (Mallet finger deformity to the second digit) Course Vital Signs Temperature 36.5 C 06/09/18 14:52 Pulse 104 H 06/09/18 14:52 Respiratory Rate 16 06/09/18 14:52 Blood Pressure 132/76 06/09/18 14:52 Pulse Oximetry 96 06/09/18 14:52 Temperature 36.5 C 06/09/18 14:52 Temperature Source Skin 06/09/18 14:52 Pulse 104 H 06/09/18 14:52 Respiratory Rate 16 06/09/18 14:52 Respiratory Effort Non-Labored 06/09/18 14:58 Blood Pressure 132/76 06/09/18 14:52 Blood Pressure Position Sitting 06/09/18 14:52 Pulse Oximetry 96 06/09/18 14:52 Oxygen Delivery Method Room Air 06/09/18 14:52 Oxygen Flow Rate 0 06/09/18 14:52 Pain Level 10 06/09/18 14:52
[2018-06-09] MEDS: Ibuprofen 600 MG TAB PO (15:38)
[2018-06-09] MEDS: Acetaminophen 325 MG TAB 650 MG PO (15:38)
[2018-06-09 16:16] VITALS: BP 132/76; PULSE 104; RESP 16; TEMP 36.5; O2SAT 96
== END 2018-06-09 16:15 | disposition home or self-care (01) ==
PROVIDERS: Emergency Provider Nurse Practitioner Family; PCP Family Medicine
DX: S69.81XA Other specified injuries of right wrist, hand and finger(s), initial encounter (principal); X50.9XXA Other and unspecified overexertion or strenuous movements or postures, initial encounter; M20.011 Mallet finger of right finger(s)
CPT/HCPCS: 29125; 99283; 73140

== ENCOUNTER → 2018-06-20 10:33 | Outpatient (BNVA) | payer MEDICARE, MEDICAID, SELFPAY | PROVIDERS: PCP Family Medicine; Referring Provider Family Medicine; Visit Provider Orthopaedic Surgery | DX: M79.644 Pain in right finger(s) (principal) | CPT/HCPCS: 99202; 99212 ==

== ENCOUNTER 2018-07-19 16:02 | Emergency (ER) | payer MEDICARE, MEDICAID, SELFPAY ==
[2018-07-19 16:15] VITALS: BP 145/71; PULSE 96; RESP 16; TEMP 36.7; O2SAT 98
--- NOTE | 2018-07-19 17:15 | DI.CT_ITS ---
SYMPTOM/DIAGNOSIS: LEFT LOWER PELVIC PAIN CT ABDOMEN AND PELVIS: Comparison is 07/08/16. Dependent atelectatic changes are seen in the lung bases which are otherwise clear. The liver has a normal appearance and no suspicious hepatic mass is seen. The portal, superior mesenteric and splenic veins are patent. The gallbladder is negative. There is no biliary ductal dilatation. The pancreas, spleen and adrenal glands are unremarkable. There are bilateral hypodense lesions seen in the kidneys most likely reflect cysts. No suspicious solid renal mass or obstruction is identified. The urinary bladder is intact. There is a 2.1 cm peripherally enhancing cyst in the left ovary likely reflecting a recently ruptured follicle. The reproductive organs are otherwise unremarkable. The abdominal aorta is of normal caliber with mild atherosclerosis. No significant abdominal or pelvic adenopathy, ascites or pneumoperitoneum id present. There is a moderate amount of stool seen throughout the colon. No evidence of bowel obstruction or inflammation is seen. There is a normal appendix present. Degenerative changes are seen in the spine. IMPRESSION: Findings suggestive of a recently ruptured cyst or left ovarian follicle measuring 2.1 cm. 2. Moderate amount of retained stool in the bowel.
[2018-07-19 17:53] LABS: Lactate-non-spesis 0.9 mmol/l (0.6-1.4)
[2018-07-19 17:54] LABS: Abs Immature Grans 0.01 k/cumm (0.0-0.09); Absolute Basophil Count 0.05 k/cumm (0.0-0.2); Absolute Eosinophil Count 0.11 k/cumm (0.0-0.7); Absolute Lymphocyte Count 2.81 k/cumm (1.2-3.4); Absolute Neutrophil Count 3.26 k/cumm (1.2-6.7); Basophils % 0.7; Eosinophils % 1.6; HCT 33.8 % (36.0-46.0); HGB 10.4 g/dL (12.0-15.5); Immature Grans % 0.1; Lymphocytes % 40.5; Mean Corp. HGB Concentration 30.8 g/dL (32.0-36.0); Mean Corpuscular Hemoglobin 21.8 pg (27.0-33.0); Mean Platelet Volume 10.1 fL (8.0-11.0); Monocytes % 10.1; Platelet Count 415 x1000/uL (130-400); RBC 4.76 m/cumm (4.00-5.20); RBC Distribution Width 18.5 % (11.7-14.6); White Blood Cell Count 6.94 k/cumm (4.4-10.8)
[2018-07-19 18:00] LABS: Bilirubin Negative (Negative); Blood Moderate (Negative); Clarity Clear; Glucose Negative (Negative); Ketones Negative (Negative); Leukocyte Esterase Negative (Negative); Nitrite Negative (Negative); Specific Gravity >= 1.030 (1.005-1.025); Urobilinogen 0.2 EU/dL (Up TO 0.2); pH 5.5 (5-8)
[2018-07-19 18:03] LABS: Bacteria Few HPF (Negative); Casts Negative LPF (Negative); Crystals Negative HPF (Negative); Epithelial Cells Many HPF (Negative); Mucus Heavy (Negative); WBC 0-2 HPF (0-5)
[2018-07-19 18:04] LABS: C & S Indicated? No/Sq. Contamination
[2018-07-19] MEDS: MORPHine 10 MG/ML VIAL 4 MG IVP (18:06)
[2018-07-19] MEDS: Ketorolac 15 MG/ML VIAL IVP (18:06)
[2018-07-19] MEDS: Normal Saline 1,000 ML 1000 ML IV (18:07)
[2018-07-19 18:11] LABS: ALT 17 U/L (12-78); AST 12 U/L (15-37); Albumin 3.6 g/dL (3.4-5.0); Alkaline Phosphatase 86 U/L (46-116); Anion Gap 9.9 mmol/L (3-11); BUN 9 mg/dL (7-18); Bilirubin, Total 0.1 mg/dL (0.2-1.0); CO2 23.1 mmol/L (21.0-32.0); CREATININE 0.71 mg/dL (0.55-1.02); Chloride 105 mmol/L (98-107); Glucose 94 mg/dL (70-100); Lipase 79 U/L (73-393); Sodium 138 mmol/L (136-145); Total Protein 7.3 g/dL (6.4-8.2)
[2018-07-19 18:14] LABS: Anisocytosis 1+; Hypochromasia 1+; Microcytosis 1+
--- NOTE | 2018-07-19 18:37 | ED.GENADUL_ITS ---
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 Primary Care Provider: Talisha Treviño ED Provider: Yoel White Home Meds and New Rx's Prescriptions: New hydrocodone-acetaminophen [Whitehouse] 7.5-325 mg tablet 1 tab PO Q6H PRN (Reason: pain) Qty: 5 RF: 0 acetaminophen [Mapap Extra Strength] 500 MG tablet 1,000 mg PO Q6H 5 Days Qty: 60 RF: 0 ibuprofen [Motrin IB] 200 MG tablet 600 mg PO Q6H 5 Days Qty: 60 RF: 0 metronidazole 0.75 % gel 1 appful VG BID 5 Days Qty: 70 RF: 0 No Action cyclobenzaprine 10 mg Tablet 10 mg PO BID RF: 0 albuterol sulfate [Ventolin HFA] 90 mcg/actuation Hfa Aerosol Inhaler 2 puff Inhalation Q6H PRNRF: 0 naproxen sodium 500 mg tablet, ER multiphase 24 hr 1,000 mg PO DAILY Qty: 20 RF: 0 amitriptyline 100 mg Tablet RF: 0 Discharge Instructions Instructions: Ovarian Cyst (ED) Additional Instructions: Please follow-up promptly with Dr. Moya at [facility]. Please take the medications as needed for pain. If you do decide to take the Whitehouse, do not take any Tylenol with it as it already has some Tylenol in it. If you notice any worsening of your symptoms, or any new symptoms such as worsening vaginal bleeding, vomiting, diarrhea, fever, chills, shortness of breath, chest pain, numbness, weakness, or fainting , please return immediately to the emergency department for reevaluation. Please follow up with your primary care provider as soon as possible for reassessment and reevaluation. As always, it was a pleasure participating in your medical care today. Referrals: Roslyn Moya MD [ [facility] STAFF PHYSICIAN] - Medical Decision Making This is a 38-year-old female with past medical history of tubal ligation who presents today for vaginal bleeding. Patient states that she had her period 9 days ago, had 7 days without any bleeding, and then bleeding and left-sided pelvic pain for the last 4 days. Exam demonstrates notable reproducible tenderness in the left lower quadrant, in addition to tenderness on the left side bimanual exam. Mild bleeding is noted in the vaginal vault on exam. No other significant abnormalities. Differential includes atypical ectopic , ruptured ovarian cyst, or tubo-ovarian abscess less likely. We will get a CT scan, treat the patient's pain rehydrate and reassess. 9 PM Patient's laboratory work-up has returned, vital signs remain normal, no significant white count, hemoglobin is 10.4 which is near her baseline but slightly lower than normal. Electrolytes normal renal function stable, lipase normal, urinalysis shows no evidence of infection. CT scan was ordered and shows evidence of a 2.1 cm collapsed cyst suggestive of a ruptured ovarian cyst. After initial medications the patient states that she is feeling much better. No tachycardia and no hypotension, no signs of severe blood loss or hemodynamic compromise. I did contact Dr. Moya and discussed the case with her, she recommends close follow-up, and close outpatient reevaluation. She did also give the option of admission if the patient's pain was not controlled. I did discuss this with the patient, at this time the patient states that she feels much better and would like to go home. We discussed the risks and benefits of this and the patient understands. Patient will be discharged respecting her wishes to this shared decision making process. I had a long discussion with the patient regarding the importance of close follow-up and prompt return if she has any return or worsening of her symptoms. Additionally I did request that Dr. Moya make certain that prompt follow-up appointment is made, and she agrees to this and states that she will contact their able to get this follow-up made. Patient will be discharged home. Diagnosis ruptured ovarian cyst. I have extensively reviewed the treatment plan and discharge instructions with the patient. I have addressed all patient concerns at this time. The patient was made aware of what symptoms to monitor for that would warrant a return to the emergency department. Discussed the plan with the patient, they demonstrate verb al understanding and agreement with our assessment and plan at this time. EXAM: CT Abdomen and Pelvis With Contrast EXAM DATE/TIME: 07/19/2018 5:17 PM CLINICAL HISTORY: 38 years old, female; Abdominal pain; Patient HX: Llq pain TECHNIQUE: Imaging protocol: Axial computed tomography images of the abdomen and pelvis with intravenous contrast. Coronal and sagittal reformatted images were created and reviewed. COMPARISON: CT ABD PELVIS WITH CONTRAST 11/02/2015 9:58 AM FINDINGS: Lungs: Visualized lung bases are clear. Heart: Heart size normal. ABDOMEN: Liver: Normal size and contour. No mass lesions. Gallbladder and bile ducts: Normal. No calcified stones. No ductal dilation. Pancreas: Normal. No inflammatory changes or ductal dilation. Spleen: Normal. No splenomegaly. Adrenals: Normal. No adrenal mass. Kidneys and ureters: 6 mm probable cyst in the upper pole cortex of the right kidney. 9 mm probable cyst in the lower pole cortex of the right kidney. 6 cm probable cyst in the upper pole of the left kidney. The kidneys are otherwise unremarkable. No hydronephrosis or urolithiasis. Stomach and bowel: The configuration of the GE junction suggests prior fundoplication without evidence of acute associated complication. No evidence of obstruction.. The small bowel is normal with no evidence of obstruction. There is moderate stool distributed in the mid and proximal colon suggesting constipation. Appendix: The appendix is normal in caliber and demonstrates no evidence of appendicitis. PELVIS: Bladder: Unremarkable as visualized. Reproductive: 2.1 cm collapsed appearing cystic lesion in the left ovary with peripheral enhancement suggesting a recently ruptured cyst/follicle. This is within physiologic range but could produce pain symptoms. ABDOMEN and PELVIS: Intraperitoneal space: No free fluid or air. Bones/joints: No acute osseous abnormalities. Soft tissues: Unremarkable. Vasculature: Mild atherosclerotic aortoiliac calcification without aneurysm. Lymph nodes: No adenopathy. IMPRESSION: 1. 2.1 cm collapsed appearing peripherally enhancing cyst in the left ovary suggesting a recently ruptured cyst/follicle. 2. There is moderate stool distributed in the mid and proximal colon suggesting constipation. Thank you for allowing us to participate in the care of your patient. Dictated and Authenticated by: Yefri Guerra MD 07/19/2018 7:10 PM Eastern Time ([place] & [place]) HPI General Date/Time Provider Initiated Documentation: 07/19/18 16:19 . HPI Narrative: This is a 38-year-old female with a past medical history of tubal ligation, kidney stones, hypertension, who presents today for evaluation of left lower quadrant abdominal and pelvic pain. The patient states that she had a regular. 10 days ago, she had 1 week of no symptoms and no vaginal bleeding, and then for the last 4 days she developed left lower quadrant and left-sided pelvic pain, in conjunction with vaginal spotting. It is gradually been getting worse and is been unchanged with NSAIDs. She denies any vomiting, diarrhea, fever, chills, right-sided pain. She does have a history of kidney stones and states that this feels different. She denies any other complaints. She denies any recent STDs or other vaginal discharge previous to this. Related Data Home Medications Medication Instructions Recorded Confirmed amitriptyline 10/19/17 06/20/18 cyclobenzaprine 10 mg PO BID 02/14/18 07/19/18 albuterol sulfate [Ventolin HFA] 2 puff INHALATION Q6H PRN 06/01/18 07/19/18 naproxen sodium 1,000 mg PO DAILY #20 tab 06/01/18 07/19/18 acetaminophen [Mapap Extra 1,000 mg PO Q6H 5 Days #60 tab 07/19/18 Strength] hydrocodone-acetaminophen [Whitehouse] 1 tab PO Q6H PRN #5 tab 07/19/18 ibuprofen [Motrin Ib] 600 mg PO Q6H 5 Days #60 tab 07/19/18 metronidazole 1 appful VG BID 5 Days #70 gm 07/19/18 Previous Rx's Medication Instructions Recorded naproxen sodium 1,000 mg PO DAILY #20 tab 06/01/18 acetaminophen [Mapap Extra 1,000 mg PO Q6H 5 Days #60 tab 07/19/18 Strength] hydrocodone-acetaminophen [Whitehouse] 1 tab PO Q6H PRN #5 tab 07/19/18 ibuprofen [Motrin Ib] 600 mg PO Q6H 5 Days #60 tab 07/19/18 metronidazole 1 appful VG BID 5 Days #70 gm 07/19/18 Allergies Allergy/AdvReac Type Severity Reaction Status Date / Time No Known Allergies Allergy Unverified 07/19/18 16:18 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: 3 Review of Systems Review of Systems All systems reviewed & are unremarkable except as noted in HPI and below PFSH Social History Smoking/Tobacco Use Status: Current every day Alcohol Intake: never Drug use: Never Substance use type: does not use Do you feel safe at home: Yes Do you feel safe in your relationship?: Yes History History Para 0 Hx # Term Pregnancies Multiple births Hx # Pregnancies Ectopic pregnancies AB induced Hx Number of Living Children AB spontaneous Exam Narrative Exam Narrative: 1.Const: Well-nourished, Well-developed, appearing stated age 2.Eyes: PERRL, no conjunctival injection, and symmetrical lids. 3.ENT: Atraumatic external nose and ears. Moist MM. Neck: Symmetric, trachea midline, No thyromegaly. 4.CVS: +S1/S2, No murmurs or gallops. Peripheral pulses 2+ and equal in all extremities. Brisk capillary refill in all extremities. 5.RESP: Unlabored respiratory effort. Clear to auscultation bilaterally. No wheezes rales or rhonchi 6.GI: Soft,Nondistended, No hepatosplenomegaly. Left lower quadrant abdominal and pelvic tenderness. Vaginal exam was performed with female nurse Rachele at bedside, and she demonstrates mild cervical motion tenderness and notable tenderness for her left bimanual exam.. Mild bleeding is present. No cervical lesions. 7.MSK: Normocephalic/Atraumatic, Extremities w/o deformity or ttp No cyanosis or clubbing, Normal movement of all extremities 8.Skin: Warm, Dry. No rashes or lesions. 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 Sensation grossly intact, no focal neurologic deficits. 10.Psych: (AAO) x3. Appropriate mood and affect Course Vital Signs Temperature 36.7 C 07/19/18 16:15 Pulse 96 H 07/19/18 16:15 Respiratory Rate 16 07/19/18 16:15 Blood Pressure 145/71 H 07/19/18 16:15 Pulse Oximetry 98 07/19/18 16:15 Temperature 36.7 C 07/19/18 16:15 Temperature Source Skin 07/19/18 16:15 Pulse 96 H 07/19/18 16:15 Respiratory Rate 16 07/19/18 16:15 Respiratory Effort Non-Labored 07/19/18 16:15 Blood Pressure 145/71 H 07/19/18 16:15 Blood Pressure Position Sitting 07/19/18 16:15 Pulse Oximetry 98 07/19/18 16:15 Oxygen Delivery Method Room Air 07/19/18 16:15 Oxygen Flow Rate 0 07/19/18 16:15 Pain Level 6 07/19/18 17:52 Lab/Test Results Lab/Test Results: 07/19/18 18:20 Vaginal Vaginitis Screen - Pending Laboratory Tests Range/Units 07/19/18 07/19/18 07/19/18 17:28 17:46 17:46 WBC (4.4-10.8) k/cumm RBC (4.00-5.20) m/cumm Hgb (12.0-15.5) g/dL Hct (36.0-46.0) % MCV (80-95) fL MCH (27.0-33.0) pg MCHC (32.0-36.0) g/dL RDW (11.7-14.6) % Plt Count (130-400) x1000/uL MPV (8.0-11.0) fL Immature Gran % Neutrophils % Lymphocytes % Monocytes % Eosinophils % Basophils % Absolute Neutrophils (1.2-6.7) k/cumm Absolute Lymphocytes (1.2-3.4) k/cumm Absolute Monocytes (0.11-0.7) k/cumm Absolute Eosinophils (0.0-0.7) k/cumm Absolute Basophils (0.0-0.2) k/cumm RBC Morphology Hypochromasia Anisocytosis Microcytosis Sodium (136-145) mmol/L 138 Potassium (3.5-5.1) mmol/L 4.0 Chloride (98-107) mmol/L 105 Carbon Dioxide (21.0-32.0) mmol/L 23.1 Anion Gap (3-11) mmol/L 9.9 BUN (7-18) mg/dL 9 Creatinine (0.55-1.02) mg/dL 0.71 Estimated GFR/1.73 m2 (mL/min/1.73m2) >= 60.00 Glucose (70-100) mg/dL 94 Lactate (0.6-1.4) mmol/l 0.9 Calcium (8.5-10.1) mg/dL 9.0 Total Bilirubin (0.2-1.0) mg/dL 0.1 L AST (15-37) U/L 12 L ALT (12-78) U/L 17 Alkaline Phosphatase (46-116) U/L 86 Total Protein (6.4-8.2) g/dL 7.3 Albumin (3.4-5.0) g/dL 3.6 Lipase (73-393) U/L 79 Urine Color (Yellow) Yellow Urine Clarity Clear Urine pH (5-8) 5.5 Ur Specific [place] (1.005-1.025) >= 1.030 H Urine Protein (Negative) mg/dL Negative Urine Ketones (Negative) mg/dL Negative Urine Blood (Negative) Moderate H Urine Nitrite (Negative) Negative Urine Bilirubin (Negative) Negative Urine Urobilinogen (Up TO 0.2) EU/dL 0.2 Ur Leukocyte Esterase (Negative) Negative Urine RBC (0-2) 5-10 H Urine WBC (0-5) HPF 0-2 Ur Epithelial Cells (Negative) HPF Many Urine Crystals (Negative) HPF Negative Urine Bacteria (Negative) HPF Few Urine Casts (Negative) LPF Negative Urine Mucus (Negative) Heavy Ur Culture Indicated? No/sq. contamination Urine Glucose (Negative) mg/dL Negative Range/Units 07/19/18 17:46 WBC (4.4-10.8) k/cumm 6.94 RBC (4.00-5.20) m/cumm 4.76 Hgb (12.0-15.5) g/dL 10.4 L Hct (36.0-46.0) % 33.8 L MCV (80-95) fL 71.0 L MCH (27.0-33.0) pg 21.8 L MCHC (32.0-36.0) g/dL 30.8 L RDW (11.7-14.6) % 18.5 H Plt Count (130-400) x1000/uL 415 H MPV (8.0-11.0) fL 10.1 Immature Gran % 0.1 Neutrophils % 47.0 Lymphocytes % 40.5 Monocytes % 10.1 Eosinophils % 1.6 Basophils % 0.7 Absolute Neutrophils (1.2-6.7) k/cumm 3.26 Absolute Lymphocytes (1.2-3.4) k/cumm 2.81 Absolute Monocytes (0.11-0.7) k/cumm 0.70 Absolute Eosinophils (0.0-0.7) k/cumm 0.11 Absolute Basophils (0.0-0.2) k/cumm 0.05 RBC Morphology See below Hypochromasia 1+ Anisocytosis 1+ Microcytosis 1+ Sodium (136-145) mmol/L Potassium (3.5-5.1) mmol/L Chloride (98-107) mmol/L Carbon Dioxide (21.0-32.0) mmol/L Anion Gap (3-11) mmol/L BUN (7-18) mg/dL Creatinine (0.55-1.02) mg/dL Estimated GFR/1.73 m2 (mL/min/1.73m2) Glucose (70-100) mg/dL Lactate (0.6-1.4) mmol/l Calcium (8.5-10.1) mg/dL Total Bilirubin (0.2-1.0) mg/dL AST (15-37) U/L ALT (12-78) U/L Alkaline Phosphatase (46-116) U/L Total Protein (6.4-8.2) g/dL Albumin (3.4-5.0) g/dL Lipase (73-393) U/L Urine Color (Yellow) Urine Clarity Urine pH (5-8) Ur Specific [place] (1.005-1.025) Urine Protein (Negative) mg/dL Urine Ketones (Negative) mg/dL Urine Blood (Negative) Urine Nitrite (Negative) Urine Bilirubin (Negative) Urine Urobilinogen (Up TO 0.2) EU/dL Ur Leukocyte Esterase (Negative) Urine RBC (0-2) Urine WBC (0-5) HPF Ur Epithelial Cells (Negative) HPF Urine Crystals (Negative) HPF Urine Bacteria (Negative) HPF Urine Casts (Negative) LPF Urine Mucus (Negative) Ur Culture Indicated? Urine Glucose (Negative) mg/dL POC- Test(urine) Negative
[2018-07-19] MEDS: Omnipaque 350 MG/ML 100 ML BTL IJ (18:45)
--- NOTE | 2018-07-19 19:10 | DI.VRAD_ITS ---
EXAM: CT Abdomen and Pelvis With Contrast EXAM DATE/TIME: 07/19/2018 5:17 PM CLINICAL HISTORY: 38 years old, female; Abdominal pain; Patient HX: Llq pain TECHNIQUE: Imaging protocol: Axial computed tomography images of the abdomen and pelvis with intravenous contrast. Coronal and sagittal reformatted images were created and reviewed. COMPARISON: CT ABD PELVIS WITH CONTRAST 11/02/2015 9:58 AM FINDINGS: Lungs: Visualized lung bases are clear. Heart: Heart size normal. ABDOMEN: Liver: Normal size and contour. No mass lesions. Gallbladder and bile ducts: Normal. No calcified stones. No ductal dilation. Pancreas: Normal. No inflammatory changes or ductal dilation. Spleen: Normal. No splenomegaly. Adrenals: Normal. No adrenal mass. Kidneys and ureters: 6 mm probable cyst in the upper pole cortex of the right kidney. 9 mm probable cyst in the lower pole cortex of the right kidney. 6 cm probable cyst in the upper pole of the left kidney. The kidneys are otherwise unremarkable. No hydronephrosis or urolithiasis. Stomach and bowel: The configuration of the GE junction suggests prior fundoplication without evidence of acute associated complication. No evidence of obstruction.. The small bowel is normal with no evidence of obstruction. There is moderate stool distributed in the mid and proximal colon suggesting constipation. Appendix: The appendix is normal in caliber and demonstrates no evidence of appendicitis. PELVIS: Bladder: Unremarkable as visualized. Reproductive: 2.1 cm collapsed appearing cystic lesion in the left ovary with peripheral enhancement suggesting a recently ruptured cyst/follicle. This is within physiologic range but could produce pain symptoms. ABDOMEN and PELVIS: Intraperitoneal space: No free fluid or air. Bones/joints: No acute osseous abnormalities. Soft tissues: Unremarkable. Vasculature: Mild atherosclerotic aortoiliac calcification without aneurysm. Lymph nodes: No adenopathy. IMPRESSION: 1. 2.1 cm collapsed appearing peripherally enhancing cyst in the left ovary suggesting a recently ruptured cyst/follicle. 2. There is moderate stool distributed in the mid and proximal colon suggesting constipation. Dictated and Authenticated by: Yefri Guerra MD. Ordering:GREG Diallo MD
[2018-07-19] MEDS: HYDROcodone 5/Acetaminophen 325 TAB PO (20:10)
[2018-07-19 20:15] VITALS: BP 135/76; PULSE 76; RESP 16; O2SAT 100
--- NOTE | 2018-07-20 08:51 | NUR.NOTE ---
Nursing Note: Referral faxed to [facility] for follow up. Dr. Moya aware. Fatuma Bustamante.
[2018-07-21 14:54] LABS: Chlamydia Result Negative; GC Result Negative; Specimen Description CERVIX
== END 2018-07-19 20:17 | disposition home or self-care (01) ==
PROVIDERS: Emergency Provider Student in an Organized Health Care Education/Training Program; PCP Family Medicine
DX: N83.202 Unspecified ovarian cyst, left side (principal)
CPT/HCPCS: 36415; 80053; 81025; 83690; 87491; 87591; 96361; 96374; 96375; 96376; 99285; 74177; 81003; 81015; 83605; 85025; 87480; 87510; 87660; 99284; J1885; J2270; J3490

== ENCOUNTER 2018-08-26 20:57 | Emergency (ER) | payer MEDICARE, MEDICAID, SELFPAY ==
[2018-08-26 21:00] VITALS: BP 129/73; PULSE 94; RESP 18; TEMP 36.8; O2SAT 97
--- NOTE | 2018-08-26 21:31 | ED.GENADUL_ITS ---
Discharge Plan Disposition Patient Disposition: HOME Condition: Good Discharge Details Chief Complaint: Abd Prob Clinical Impression: Nausea, Epigastric pain Primary Care Provider: Talisha Treviño ED Provider: Yoni Harris Home Meds and New Rx's Prescriptions: Continued cyclobenzaprine 10 mg Tablet 10 mg PO BID RF: 0 albuterol sulfate [Ventolin HFA] 90 mcg/actuation Hfa Aerosol Inhaler 2 puff Inhalation Q6H PRNRF: 0 Discharge Instructions Additional Instructions: Please stick to a liquid/bland diet over the next 12 hours or so. Advanced as tolerated. Follow-up with primary care next week if continued problems. Return to ED for difficulty breathing, vomiting, worsening pain, other concerns. Referrals: Talisha Trevñio [Primary Care Provider] - Discharge Data Discharge Date/Time-TO BE ENTERED AT DEPARTURE: 08/26/18 22:40 Medical Decision Making <Yoni Harris MD - Last Filed: 08/26/18 22:27> Patient presenting with complaints of nausea and epigastric discomfort after drinking soda that she states smells like sulfur. She brought the soda in. I cannot detect a sulfur odor. Her vital signs and her physical exam are normal. Her abdomen is completely benign. She thought we could test the soda but I informed her we have no ability to do testing like that. We will give Zofran ODT followed by GI cocktail in 15 to 20 minutes and reevaluate. Patient feels better after medications. Continues to look well. Will discharge home with instructions to return if any worsening symptoms. <TELLY Lanza - Last Filed: 08/27/18 16:22> My name was added to chart in error, patient was not seen by myself. HPI <Yoni Harris MD - Last Filed: 08/26/18 22:27> General Mode of arrival: ambulatory . Date/Time Provider Initiated Documentation: 08/26/18 21:31 . Limitations to Documentation: no limitations . Information obtained by: patient . HPI Narrative: Patient presents to ED with complaint of nausea and epigastric discomfort. Patient states that she was fine until she drank some soda from a place out by [place]. She reports that she could smell a sulfur odor coming from the soda but did not realize it until after she drank half of it. She has subsequently had nausea and epigastric discomfort. She has not vomited but states that she typically cannot vomit because she has had a Molly fundoplication. She has no chest pain or shortness of breath. She has no radiation of pain into her back. She describes the pain in her abdomen as [id number]. Related Data Home Medications Medication Instructions Recorded Confirmed cyclobenzaprine 10 mg PO BID 02/14/18 08/26/18 albuterol sulfate [Ventolin HFA] 2 puff INHALATION Q6H PRN 06/01/18 08/26/18 Allergies Allergy/AdvReac Type Severity Reaction Status Date / Time No Known Allergies Allergy Unverified 08/26/18 21:04 General Stated Complaint: Abd Prob CLIFFORD: 3 Review of Systems <Yoni Harris MD - Last Filed: 08/26/18 22:27> Review of Systems As documented in HPI otherwise negative as below. Const: no fever, chills, weakness Resp: no cough, SOB, pleuritic pain CV: no CP, diaphoresis, edema, syncope GI: abdominal pain and nausea; no vomiting, diarrhea Neuro: no headache, numbness, focal weakness, confusion PFSH <Yoni Harris MD - Last Filed: 08/26/18 22:27> Medical History Abdominal pain (Chronic) Asthma (Chronic) Calcium nephrolithiasis (Chronic) Chronic back pain (Chronic) Hypertension (Chronic) Tobacco use (Chronic) Surgical History (Updated 08/26/18 @ 21:46 by Yoni Harris MD) bone spur R foot. (Resolved) Ligation of fallopian tube (Chronic) Status post Molly fundoplication (Acute) Tooth extraction (Resolved) Social History Smoking/Tobacco Use Status: Current every day Tobacco Type: cigarettes Smoking cigarettes per day: 4 Alcohol Intake: never Drug use: Never Substance use type: does not use Do you feel safe at home: Yes Do you feel safe in your relationship?: Yes History History Para 0 Hx # Term Pregnancies Multiple births Hx # Pregnancies Ectopic pregnancies AB induced Hx Number of Living Children AB spontaneous Exam <Yoni Harris MD - Last Filed: 08/26/18 22:27> Narrative Exam Narrative: Vitals: Afebrile with normal vitals. Const: WDWN female in NAD. HEENT: NC/AT. Normal facial exam. Eyes: Normal conjunctiva and sclera. Neck: Supple. Trachea midline. Lungs: Normal respiratory effort. Lungs are clear. Cor: RRR without murmur/gallop. Good radial pulses. GI: Soft. NT/ND. No guarding or rebound. Neuro: A+O x 3. CN grossly in tact. Good strength and no focal deficit. Ext: No C/C/E. No deformity or tenderness. Skin: Warm and dry without rash. Course <Yoni Harris MD - Last Filed: 08/26/18 22:27> Vital Signs Temperature 98.2 F 08/26/18 21:00 Pulse 94 H 08/26/18 21:00 Respiratory Rate 18 08/26/18 21:00 Blood Pressure 129/73 08/26/18 21:00 Pulse Oximetry 97 08/26/18 21:00 Temperature 98.2 F 08/26/18 21:00 Temperature Source Skin 08/26/18 21:00 Pulse 94 H 08/26/18 21:00 Respiratory Rate 18 08/26/18 21:00 Respiratory Effort Non-Labored 08/26/18 21:03 Blood Pressure 129/73 08/26/18 21:00 Blood Pressure Position Supine 08/26/18 21:00 Pulse Oximetry 97 08/26/18 21:00 Oxygen Delivery Method Room Air 08/26/18 21:00 Oxygen Flow Rate 0 08/26/18 21:00 Pain Level 9 08/26/18 21:12
[2018-08-26] MEDS: Ondansetron O.D.T. 4 MG TABEF PO (21:42)
[2018-08-26 22:41] VITALS: BP 138/79; PULSE 79; RESP 16; TEMP 36.8; O2SAT 97
== END 2018-08-26 22:40 | disposition home or self-care (01) ==
PROVIDERS: Emergency Provider Emergency Medicine; PCP Family Medicine
DX: R11.0 Nausea (principal); R10.13 Epigastric pain; I10 Essential (primary) hypertension
CPT/HCPCS: 99283

== ENCOUNTER 2018-09-15 19:15 | Emergency (ER) | payer MEDICARE, MEDICAID, SELFPAY ==
[2018-09-15 19:17] VITALS: BP 142/71; PULSE 106; RESP 16; TEMP 36.3; O2SAT 98
[2018-09-15 19:53] VITALS: RESP 18
--- NOTE | 2018-09-15 20:05 | ED.GENADUL_ITS ---
Discharge Plan Disposition Patient Disposition: HOME Condition: Good Discharge Details Chief Complaint: Vascular Clinical Impression: Lower extremity edema Primary Care Provider: Talisha Treviño ED Provider: Yoel White Home Meds and New Rx's Prescriptions: New furosemide [Lasix] 20 mg tablet 20 mg PO PRN PRN (Reason: edema) Qty: 2 RF: 0 No Action cyclobenzaprine 10 mg Tablet 10 mg PO BID RF: 0 albuterol sulfate [Ventolin HFA] 90 mcg/actuation Hfa Aerosol Inhaler 2 puff Inhalation Q6H PRNRF: 0 Discharge Instructions Instructions: Edema (ED) Additional Instructions: With the mild lower extremity edema that you have it is very important that you avoid any salt in your diet,. Please use the RACHEL stalking as directed. If you notice any worsening of your symptoms, or any new symptoms such as vomiting, diarrhea, fever, chills, shortness of breath, chest pain, numbness, weakness, or fainting , please return immediately to the emergency department for reevaluation. Please follow up with your primary care provider as soon as possible for reassessment and reevaluation. As always, it was a pleasure participating in your medical care today. Referrals: Talisha Treviño [Primary Care Provider] - Discharge Data Discharge Date/Time-TO BE ENTERED AT DEPARTURE: 09/15/18 20:16 Medical Decision Making This is a 38-year-old female who presents today for evaluation of subjective swelling of her lower feet bilaterally for the past few days. She has no PE or DVT red flags. She denies any recent calf tenderness or pain. Family does have a history of mild congestive heart failure and does occasionally take water pills. Exam demonstrates minimal trace barely discernible swelling of the feet bilaterally. No evidence of significant pretibial edema, or other significant edema. Normal neurovascular exam. Patient's history demonstrates notable salt intake at home. Bedside limited cardiac echo demonstrates no evidence of significant right heart strain, or severe hypokinesis. No evidence of significant left or right ventricular dilatation. The remainder of her exam is otherwise benign. With a long discussion, recommendations were given for diet modification, RACHEL stockings, and furosemide only to be used on a limited as needed basis until she can follow-up with her PCP. Feel that medication is the least necessary component, we recommended that she avoid any use of it and primarily focus on diet modification and RACHEL stockings. Signs and symptoms are clinically inconsistent with a DVT. Patient will be discharged home with close follow-up with her PCP at her already scheduled appointments. I have extensively reviewed the treatment plan and discharge instructions with the patient and their family. I have addressed all patient concerns at this time. The patient and family was made aware of what symptoms to monitor for that would warrant a return to the emergency department. Discussed the plan with the patient and family, they demonstrate verbal understanding and agreement with our assessment and plan at this time. HPI General Date/Time Provider Initiated Documentation: 09/15/18 19:46 . HPI Narrative: This is a 38-year-old female with a past medical history of asthma who presents for evaluation of swelling in her feet. Patient states that over the last few days she has noticed mild amount of swelling in her feet bilaterally. She denies any calf pain or tenderness, denies DVT risk factors such as recent long car rides, immobilization, recent surgery, prior history of DVT or PE, family history of PE or DVT, morbid obesity, exogenous estrogen and smoking, hemoptysis, history of cancer. Review of her diet demonstrates notable amount of salty chip intake, canned foods and canned vegetables, meats. She does state that her mother has a history of congestive heart failure and does take a water pill. She denies any complaints of shortness of breath, chest pain, chest heaviness, chest tightness, numbness tingling or weakness. She denies any other modifying factors. She has no other complaints at this time. She does have an appointment coming up with her primary care provider, but is requesting that we give her a water pill for diuresis. She has never been on a diuretic. Related Data Home Medications Medication Instructions Recorded Confirmed cyclobenzaprine 10 mg PO BID 02/14/18 09/15/18 albuterol sulfate [Ventolin HFA] 2 puff INHALATION Q6H PRN 06/01/18 09/15/18 furosemide [Lasix] 20 mg PO PRN PRN #2 tab 09/15/18 Previous Rx's Medication Instructions Recorded furosemide [Lasix] 20 mg PO PRN PRN #2 tab 09/15/18 Allergies Allergy/AdvReac Type Severity Reaction Status Date / Time No Known Allergies Allergy Unverified 09/15/18 19:23 General Stated Complaint: Vascular CLIFFORD: 3 Review of Systems Review of Systems All systems reviewed & are unremarkable except as noted in HPI and below PFSH Medical History Abdominal pain (Chronic) Asthma (Chronic) Calcium nephrolithiasis (Chronic) Chronic back pain (Chronic) Hypertension (Chronic) Tobacco use (Chronic) Surgical History (Updated 08/26/18 @ 21:46 by Yoni Harris MD) bone spur R foot. (Resolved) Ligation of fallopian tube (Chronic) Status post Molly fundoplication (Acute) Tooth extraction (Resolved) Social History Smoking/Tobacco Use Status: Current every day Tobacco Type: cigarettes Smoking cigarettes per day: 5 Alcohol Intake: never Drug use: Never Substance use type: does not use Do you feel safe at home: Yes Do you feel safe in your relationship?: Yes History History Para 0 Hx # Term Pregnancies Multiple births Hx # Pregnancies Ectopic pregnancies AB induced Hx Number of Living Children AB spontaneous Exam Narrative Exam Narrative: 1.Const: Well-nourished, Well-developed, appearing stated age 2.Eyes: PERRL, no conjunctival injection, and symmetrical lids. 3.ENT: Atraumatic external nose and ears. Moist MM. Neck: Symmetric, trachea midline, No thyromegaly. 4.CVS: +S1/S2, No murmurs or gallops. Peripheral pulses 2+ and equal in all extremities. Brisk capillary refill in all extremities. 5.RESP: Unlabored respiratory effort. Clear to auscultation bilaterally. No wheezes rales or rhonchi 6.GI: Soft, Nontender/Nondistended, No hepatosplenomegaly. No guarding or rebound. 7.MSK: Normocephalic/Atraumatic, Extremities w/o deformity or ttp No cyanosis or clubbing, Normal movement of all extremities. No calf tenderness. No significant pretibial pitting edema. Minimal trace barely discernible swelling of her feet bilaterally. Dorsalis pedis and posterior tibial pulse +2 bilaterally. 8.Skin: Warm, Dry. No rashes or lesions. 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 Sensation grossly intact, no focal neurologic deficits. 10.Psych: (AAO) x3. Appropriate mood and affect Course Vital Signs Temperature 36.3 C L 08/02/19 19:17 Pulse 106 H 09/15/18 19:17 Respiratory Rate 16 09/15/18 19:17 Blood Pressure 142/71 H 09/15/18 19:17 Pulse Oximetry 98 09/15/18 19:17 Temperature 36.3 C L 09/15/18 19:17 Temperature Source Skin 09/15/18 19:17 Pulse 106 H 09/15/18 19:17 Respiratory Rate 18 09/15/18 19:53 Respiratory Effort 09/15/18 19:53 Respiratory Depth Normal 09/15/18 19:53 Respiratory Pattern Normal 09/15/18 19:53 Blood Pressure 142/71 H 09/15/18 19:17 Blood Pressure Position Sitting 09/15/18 19:17 Pulse Oximetry 98 09/15/18 19:17 Oxygen Delivery Method Room Air 09/15/18 19:17 Oxygen Flow Rate 0 09/15/18 19:17 Pain Level 7 09/15/18 19:53
[2018-09-15 20:23] VITALS: BP 142/71; PULSE 106; RESP 18; O2SAT 98
[2018-09-15] MEDS: Furosemide 20 MG TAB 10 MG PO (20:23)
== END 2018-09-15 20:16 | disposition home or self-care (01) ==
PROVIDERS: Emergency Provider Student in an Organized Health Care Education/Training Program; PCP Family Medicine
DX: R60.0 Localized edema (principal); I10 Essential (primary) hypertension
CPT/HCPCS: 99283

== ENCOUNTER 2018-09-23 10:02 | Inpatient (IN) | payer MEDICARE, MEDICAID, SELFPAY ==
[2018-09-23] VITALS (14 sets, daily range): BP systolic 105–122; BP diastolic 55–74; PULSE 81–115; RESP 14–23; TEMP 36.4–37.1; O2SAT 95–100
--- NOTE | 2018-09-23 10:07 | DI.CT_ITS ---
SYMPTOM/DIAGNOSIS: MID ABD PAIN, INCARCERATED HERNIA ABDOMEN AND PELVIC CT: CT examination of the abdomen and pelvis was performed with a bolus infusion of 100 cc's of Omnipaque 350. Note is made of a large hiatal hernia with possible fundoplication. Liver, spleen and pancreas are unremarkable in appearance. Gallbladder and bile ducts are CT normal. Adrenals are unremarkable bilaterally. There appear to be a few small bilateral renal cysts. No evidence of nephrolithiasis. 2 mm. stone again noted in mid right ureter. No change from 07/19/18. No additional ureterolithiasis is seen. There is a small umbilical hernia which contains a knuckle of unobstructed bowel. No evidence of bowel obstruction elsewhere. Appendix is normal. Probable partially collapsed cyst left ovary, pelvic ultrasound may be obtained if clinically indicated. No gross adenopathy is seen in the abdomen or pelvis. CONCLUSION: No evidence of acute intra-abdominal process. Umbilical hernia contains a widely patent minimal knuckle of bowel with no evidence of obstruction or inflammation.
--- NOTE | 2018-09-23 10:08 | W.ED.GENAD ---
Discharge Plan Disposition Patient Disposition: [facility] INPATIENT Condition: Stable Discharge Details Chief Complaint: Abd Prob Clinical Impression: Abdominal hernia Primary Care Provider: Talisha Treviño ED Provider: Samuel Patricio Home Meds and New Rx's Prescriptions: No Action losartan-hydrochlorothiazide 50-12.5 mg tablet 1 tab PO DAILY RF: 0 cyclobenzaprine 10 mg Tablet 10 mg PO BID RF: 0 albuterol sulfate [Ventolin HFA] 90 mcg/actuation Hfa Aerosol Inhaler 2 puff Inhalation Q6H PRNRF: 0 Medical Decision Making 38 yo female who states she has a known abodminal hernia comes in with increased abdominal rosa the past few days. Denies vomit, fevers, chest pain, sob, has been taking nsaids without relief. She has a palpable hernia just superior to the umbilicus that is midline and I am unable to reduce it, no overlying erythema or warmth. Will obtain lab work and imaging to eval for possible strangulation vs sbo and monitor. labs show lactate of 2.0 otherwise unremarkable, awaiting ct ct confirms umbilical hernia no sbo .I am unable to reduce the hernia and has pain still, will consult with surgery Dr. Helms is planning on bringing the pt to the OR. Pt updated annd is in agreement with the plan Differential Diagnosis strangulated hernia, pancreatitis Medical Records Medical records reviewed: Yes I reviewed the patient's medical records. Imaging Data Radiologic Study: Attestation: I personally reviewed and interpreted this imaging study as follows: Imaging: CT Scan Radiologist's impression: IMPRESSION: 1. Small umbilical hernia containing partially herniated bowel loop again noted. No evidence of bowel obstruction. 2. Possible fundoplication changes of the GE junction with a hiatal hernia again noted 3. Prominent cystic structure is in the left ovary again seen, likely an expected follicle/cyst. Lab Data Lab results reviewed: Yes I reviewed the patient's lab results. HPI General Mode of arrival: ambulatory. Date/Time Provider Initiated Documentation: 09/23/18 10:03. Limitations to Documentation: no limitations. Information obtained by: patient. History of Present Illness 38 year old F presents to the emergency department with the chief complaint of abdominal pain, described as moderate, Quality is described as stabbing and aching, Patient started experiencing this day(s) (2) No relieving factors improve symptom(s), No exacerbating factors reported . Patient did receive the following treatments prior to arrival, NSAID Related Data Home Medications Medication Instructions Recorded Confirmed cyclobenzaprine 10 mg PO BID 02/14/18 09/23/18 albuterol sulfate [Ventolin HFA] 2 puff INHALATION Q6H PRN 06/01/18 09/23/18 losartan 50 mg-hydrochlorothiazide 1 tab PO DAILY 09/21/18 09/23/18 12.5 mg tablet Allergies Allergy/AdvReac Type Severity Reaction Status Date / Time No Known Allergies Allergy Unverified 09/23/18 10:11 General CLIFFORD: 3 Review of Systems Review of Systems All systems reviewed & are unremarkable except as noted in HPI and below Constitutional Denies chills, Denies fever(s) and Denies weakness Cardiovascular Denies chest pain and Denies dyspnea Respiratory Denies cough and Denies dyspnea Gastrointestinal Denies nausea and Denies vomiting Musculoskeletal Denies joint swelling Integumentary/Breasts Denies rash Neurologic Denies weakness Endocrine Denies heat intolerance [facility] Medical History (Updated 09/21/18 @ 15:00 by Nilsa Duong RN) Abdominal hernia (Acute) Abdominal pain (Chronic) Asthma (Chronic) Bilateral lower extremity edema (Acute) Calcium nephrolithiasis (Chronic) Chronic back pain (Chronic) GERD (gastroesophageal reflux disease) (Chronic) Hematuria (Acute) Hiatal hernia (Chronic) Hypertension (Chronic) IBS (irritable bowel syndrome) (Chronic) Insomnia (Acute) Prediabetes (Acute) Tobacco use (Chronic) Surgical History (Updated 08/26/18 @ 21:46 by Yoni Harris MD) bone spur R foot. (Resolved) Ligation of fallopian tube (Chronic) Status post Molly fundoplication (Acute) Tooth extraction (Resolved) Social History Smoking/Tobacco Use Status: Current every day Tobacco Type: cigarettes Alcohol Intake: never Drug use: Never Substance use type: does not use Do you feel safe at home: Yes Do you feel safe in your relationship?: Yes History History Para 0 Hx # Term Pregnancies Multiple births Hx # Pregnancies Ectopic pregnancies AB induced Hx Number of Living Children AB spontaneous Exam Const General: no acute distress Orientation: alert HENMT Head: normal to inspection Ears: external ears normal General nose exam: external nose normal Mouth: moist mucous membranes Eyes General: appearance normal, both eyes and all related structures Neck Neck: normal visual inspection Resp Effort & Inspection: normal respiratory effort and able to speak in complete sentences Cardio Rate: regular rate GI Palpation: soft Skin General skin exam: no rashes or lesions noted Neuro General: alert and oriented x3 Extrem General: normal to inspection Psych Mental Status: mental status grossly normal
--- NOTE | 2018-09-23 10:35 | NUR.NOTE ---
Nursing Note: Difficulty obtaining IV and labs after failed multiple attempts. additional assistance requested.
[2018-09-23] MEDS: fentaNYL 100 MCG/2 ML VIAL IVP ×2 (10:50→18:12)
[2018-09-23] MEDS: Normal Saline 1,000 ML 1000 ML IV (10:50)
--- NOTE | 2018-09-23 11:04 | NUR.NOTE ---
Nursing Note: pt attached to continuos pulse oximitery post fentanyl administration. will continue to monitor. pt states that she is starting to have pain relief. .
[2018-09-23 11:11] LABS: Abs Immature Grans 0.05 k/cumm (0.0-0.09); Absolute Basophil Count 0.05 k/cumm (0.0-0.2); Absolute Eosinophil Count 0.09 k/cumm (0.0-0.7); Absolute Monocyte Count 0.58 k/cumm (0.11-0.7); Absolute Neutrophil Count 6.01 k/cumm (1.2-6.7); Basophils % 0.6; HCT 39.5 % (36.0-46.0); HGB 12.4 g/dL (12.0-15.5); Immature Grans % 0.6; Lymphocytes % 23.6; Mean Corp. HGB Concentration 31.4 g/dL (32.0-36.0); Mean Corpuscular Hemoglobin 21.7 pg (27.0-33.0); Mean Platelet Volume 10.2 fL (8.0-11.0); Monocytes % 6.5; Neutrophils % 67.7; Platelet Count 474 x1000/uL (130-400); RBC 5.71 m/cumm (4.00-5.20); RBC Distribution Width 19.7 % (11.7-14.6); White Blood Cell Count 8.88 k/cumm (4.4-10.8)
[2018-09-23 11:16] LABS: Mean Corpuscular Volume 69.2 fL (80-95)
[2018-09-23 11:25] LABS: ALT 22 U/L (12-78); AST 7 U/L (15-37); Albumin 4.1 g/dL (3.4-5.0); Alkaline Phosphatase 95 U/L (46-116); Anion Gap 14.6 mmol/L (3-11); BUN 14 mg/dL (7-18); Bilirubin, Total 0.2 mg/dL (0.2-1.0); CO2 19.4 mmol/L (21.0-32.0); CREATININE 0.93 mg/dL (0.55-1.02); Calcium 9.1 mg/dL (8.5-10.1); Chloride 103 mmol/L (98-107); Glucose 140 mg/dL (70-100); Lipase 79 U/L (73-393); Potassium 3.7 mmol/L (3.5-5.1); Sodium 137 mmol/L (136-145); Total Protein 8.3 g/dL (6.4-8.2)
[2018-09-23 11:26] LABS: INR 0.9 (0.9-1.1)
--- NOTE | 2018-09-23 11:30 | NUR.NOTE ---
Nursing Note: Pt resting in stretcher, no signs of distress. eyes closed, facial expression and body language relaxed. slow and even respirations noted.
[2018-09-23] MEDS: Omnipaque 350 MG/ML 100 ML BTL IJ (11:41)
--- NOTE | 2018-09-23 12:24 | DI.VRAD_ITS ---
EXAM: CT Abdomen and Pelvis With Contrast EXAM DATE/TIME: 09/23/2018 10:08 AM CLINICAL HISTORY: 38 years old, female; Abdominal pain; Patient HX: Known incarcerated hernia TECHNIQUE: Imaging protocol: Axial computed tomography images of the abdomen and pelvis with intravenous contrast. Coronal and sagittal reformatted images were created and reviewed. COMPARISON: CT ABDOMEN PELVIS W 07/19/2018 6:38 PM FINDINGS: Mediastinum: Moderately large hiatal hernia versus postop changes of fundoplication Liver: Normal. No mass. Gallbladder and bile ducts: Normal. No calcified stones. No ductal dilation. Pancreas: Normal. No ductal dilation. Spleen: Normal. No splenomegaly. Adrenals: Normal. No mass. Kidneys and ureters: Bilateral simple cystic appearing lesions in both kidneys measuring up to 61 mm are incompletely evaluated due to small size. Calcification measuring 2 mm , appears unchanged in the midportion of the right ureter. Stomach and bowel: Small umbilical hernia containing partially herniated bowel loop again noted. No evidence of bowel obstruction. Appendix: Partially visualized appendix (image 50 of the sagittal images) appears unremarkable. Intraperitoneal space: Normal. No free air. No significant fluid collection. Vasculature: Normal. No abdominal aortic aneurysm. Lymph nodes: Normal. No enlarged lymph nodes. Bladder: Unremarkable as visualized. Reproductive: Uterus is prominent. Prominent cystic structure that enhances in the left ovary again noted, likely a follicle / cyst. Bones/joints: No acute fracture. No dislocation. Soft tissues: Unremarkable. IMPRESSION: 1. Small umbilical hernia containing partially herniated bowel loop again noted. No evidence of bowel obstruction. 2. Possible fundoplication changes of the GE junction with a hiatal hernia again noted 3. Prominent cystic structure is in the left ovary again seen, likely an expected follicle/cyst. Dictated and Authenticated by: Luis Cardona MD. Ordering:CURTIS Baker MD
--- NOTE | 2018-09-23 12:53 | NUR.NOTE ---
Nursing Note: pt awaiting surgical MD assessment.
--- NOTE | 2018-09-23 13:49 | W.PM.HP.N ---
Date of service: 09/23/18 Time of Service: 13:49 Assessment and Plan (1) Recurrent umbilical hernia with incarceration: Current visit: Yes Status: Acute Patient had a knuckle of bowel through the hernia She is having acute, severe pain. No fever white count. No diffuse peritonitis. She will be taken to the OR for urgent repair consent is obtained explaining risks and benefits of procedure including but not limited to bleeding infection pneumonia blood clots, possible damage to bowel or blood vessels. Possible recurrence. If there is bowel she will have to undergo bowel resection. It is small bowel that is hernia. If not, then we will place mesh. Risks of mesh include chronic pain, chronic numbness, recurrence, and infection that requires removal. Risks from anesthesia. We reviewed postop care and instructions. She will be admitted overnight to the hospital. In and discharge in a.m. History of Present Illness Chief Complaint: abdom pain Consults Consult date: 09/23/18 Requesting physician: Samuel Patricio Narrative: Incarcerated umbilical hernia. started today. Has had x3 repairs w/ no mesh placed. No vomiting. no fever/chills. Has chronic problems w/ constipation- no signs of obstruction. recently started on losaarten. this is making her dizzy and nausated. Review of Systems Review of Systems All systems reviewed & are unremarkable except as noted in HPI and below Constitutional Reports as per HPI, Reports system reviewed and no additional complaints, except as docu, Denies anorexia, Denies chills, Denies difficulty sleeping, Denies fatigue, Denies headache(s), Denies lethargy, Denies malaise, Denies poor appetite, Denies weakness, Denies weight gain and Denies weight loss Eyes Reports as per HPI, Reports system reviewed and no additional complaints, except as docu and Denies change in vision ENT Reports system reviewed and no additional complaints, except as docu, Reports as per HPI, Denies change in voice, Denies dental pain, Denies dysphagia, Reports dizziness, Denies facial pain, Denies headache(s) and Denies odynophagia Cardiovascular Reports as per HPI, Reports system reviewed and no additional complaints, except as docu, Denies chest pain, Denies chest pain with activity, Denies syncope, Denies leg edema and Denies dyspnea Respiratory Reports as per HPI, Reports system reviewed and no additional complaints, except as docu, Denies chest congestion, Denies cough, Denies pain with cough and Denies dyspnea Comments: asthma. no recent problems. only use MDI prn +smoker Gastrointestinal Reports as per HPI, Reports system reviewed and no additional complaints, except as docu, Denies abdominal pain, Denies bloating, Denies change in bowel habits, Denies change in stool character, Denies constipation, Denies cramping, Denies dysphagia, Denies early satiety, Denies heartburn, Denies diarrhea, Denies nausea, Denies odynophagia and Denies vomiting Comments: s/p mirtha and can't throw up severe pain no fever/chills. hx of umilical hernia and s/p repiar Musculoskeletal Reports system reviewed and no additional complaints, except as docu, Reports as per HPI, Denies abnormal gait, Denies arthralgias and Denies muscle weakness Integumentary/Breasts Reports system reviewed and no additional complaints, except as docu, Reports as per HPI, Denies changing lesions, Denies new lesions and Denies jaundice Neurologic Reports system reviewed and no additional complaints, except as docu, Reports as per HPI, Denies abnormal speech, Denies abnormal gait, Reports dizziness, Denies syncope, Denies headache(s), Denies memory loss and Denies weakness Psychiatric Reports system reviewed and no additional complaints, except as docu, Reports as per HPI, Denies change in appetite and Denies memory loss Endocrine Denies fatigue, Denies polydipsia and Denies polyuria Hematologic/Lymphatic Reports system reviewed and no additional complaints, except as docu, Denies easy bleeding and Denies easy bruising Allergic/Immunologic Denies system reviewed and no additional complaints, except as docu, Reports as per HPI and Denies urticaria [facility] Medical History Abdominal hernia (Acute) Abdominal pain (Chronic) Asthma (Chronic) Bilateral lower extremity edema (Acute) Calcium nephrolithiasis (Chronic) Chronic back pain (Chronic) GERD (gastroesophageal reflux disease) (Chronic) Hematuria (Acute) Hiatal hernia (Chronic) Hypertension (Chronic) IBS (irritable bowel syndrome) (Chronic) Insomnia (Acute) Prediabetes (Acute) Tobacco use (Chronic) Surgical History bone spur R foot. (Resolved) Ligation of fallopian tube (Chronic) Status post Mirtha fundoplication (Acute) Tooth extraction (Resolved) Social History Smoking/Tobacco Use Status: Current every day Tobacco Type: cigarettes Alcohol Intake: never Drug use: Never Substance use type: does not use Do you feel safe at home: Yes Do you feel safe in your relationship?: Yes History History Para 0 Hx # Term Pregnancies Multiple births Hx # Pregnancies Ectopic pregnancies AB induced Hx Number of Living Children AB spontaneous Meds Home Medications Medication Instructions Recorded Confirmed Type cyclobenzaprine 10 mg PO BID 02/14/18 09/23/18 History albuterol sulfate [Ventolin HFA] 2 puff INHALATION Q6H PRN 06/01/18 09/23/18 History losartan 50 mg-hydrochlorothiazide 1 tab PO DAILY 09/21/18 09/23/18 History 12.5 mg tablet Allergies Allergy/AdvReac Type Severity Reaction Status Date / Time No Known Allergies Allergy Unverified 09/23/18 10:11 Exam Const General: cooperative, healthy appearing, comfortable, no acute distress, well developed and well groomed Nutritional Appearance: average body habitus and well nourished Orientation: alert, awake and oriented x3 HENMT Head: normal to inspection, normocephalic and atraumatic Ears: hearing grossly normal bilaterally and external ears normal General nose exam: external nose normal Face and sinus: normal facial exam and sinuses nontender Mouth: oral mucosae normal, lip normal, tongue normal and moist mucous membranes Teeth and gingiva: dentures Eyes General: appearance normal, both eyes and all related structures Conjunctivae: conjunctivae normal Sclera: sclerae normal Pupils: PERRL Neck Neck: normal visual inspection and full ROM Chest Chest: normal inspection of the chest Resp Effort & Inspection: normal respiratory effort, able to speak in complete sentences, no cough, no nasal flaring, not tachypneic and no use of accessory muscles Auscultation: clear to auscultation bilaterally, no rales, no rhonchi and no wheezes Cardio Jugular venous pressure: no JVD Rate: regular rate Rhythm: regular rhythm GI Inspection: normal to inspection, no edema and non-distended Palpation: soft, no masses, nontender and No ascites Auscultation: normal bowel sounds Other: post sx changes. no redness or obvious buges. + bs pt won't allow exam b/c hurts too much. tender only around umbilicus and no distention or diffuse peritonitis. I did personally review the CT scan images Skin General skin exam: no rashes or lesions noted Trauma: no lacerations or abrasions Neuro General: alert, oriented x3, oriented, gait normal, moves all extremities, no focal motor deficits and CN's II-XI intact bilaterally Cognition: normal cognition Speech: speech normal Gait: normal gait Motor: muscle tone normal throughout Extrem General: normal to inspection, full ROM and no clubbing, cyanosis or edema Psych Appearance: grossly normal and well kempt Mental Status: mental status grossly normal Speech and Movement: speech and movement normal Affect: normal affect Results Labs : 09/23/18 10:50 09/23/18 10:50 Laboratory Results - last 24 hr 09/23/18 09/23/18 09/23/18 10:50 10:50 10:50 WBC 8.88 RBC 5.71 H Hgb 12.4 Hct 39.5 MCV 69.2 L MCH 21.7 L MCHC 31.4 L RDW 19.7 H Plt Count 474 H MPV 10.2 Immature Gran % 0.6 Neutrophils % 67.7 Lymphocytes % 23.6 Monocytes % 6.5 Eosinophils % 1.0 Basophils % 0.6 Absolute Neutrophils 6.01 Absolute Lymphocytes 2.10 Absolute Monocytes 0.58 Absolute Eosinophils 0.09 Absolute Basophils 0.05 PT INR APTT Sodium 137 Potassium 3.7 Chloride 103 Carbon Dioxide 19.4 L Anion Gap 14.6 H BUN 14 Creatinine 0.93 Estimated GFR/1.73 m2 >= 60.00 Glucose 140 H Lactate 2.0 H Calcium 9.1 Total Bilirubin 0.2 AST 7 L ALT 22 Alkaline Phosphatase 95 Total Protein 8.3 H Albumin 4.1 Lipase 79 09/23/18 10:50 WBC RBC Hgb Hct MCV MCH MCHC RDW Plt Count MPV Immature Gran % Neutrophils % Lymphocytes % Monocytes % Eosinophils % Basophils % Absolute Neutrophils Absolute Lymphocytes Absolute Monocytes Absolute Eosinophils Absolute Basophils PT 9.0 L INR 0.9 APTT 23.0 Sodium Potassium Chloride Carbon Dioxide Anion Gap BUN Creatinine Estimated GFR/1.73 m2 Glucose Lactate Calcium Total Bilirubin AST ALT Alkaline Phosphatase Total Protein Albumin Lipase Last Vital Signs Temp 36.6 C 09/23/18 10:08 Pulse 81 09/23/18 12:28 Resp 15 09/23/18 12:28 BP 115/69 09/23/18 12:28 Pulse Ox 100 09/23/18 12:28
--- NOTE | 2018-09-23 13:53 | NUR.NOTE ---
Nursing Note: call out to pharmacy to verify Zosyn
[2018-09-23] MEDS: PIPERACILLIN/TAZO 4.5 GM in Normal Saline 100 ML IVPB (14:30)
[2018-09-23] MEDS: Lactated Ringers 1,000 ML 80 ML IV (15:13)
--- NOTE | 2018-09-23 16:09 | ROE_ITS ---
Date of service: 09/23/18 Time of Service: 16:09 Operative Note DATE OF PROCEDURE: 09/23/18 PRE-OP DIAGNOSIS: incarcerated umbilical hernia POST-OP DIAGNOSIS: same PROCEDURE: open reapir w/ mesh see RN notes for brand/lot # 2x3 piece used HONEY PROCESSOR: Abdi Chung ANESTHESIA: ARTUR ESTIMATED BLOOD LOSS: 10 PATHOLOGY: none sent COMPLICATIONS: None Patient was transported to: PACU Patient's condition: stable Indications: incarcerated smal bowel on CT Findings: bowel viable. reduced w/ paralytic Procedure Description: dictated
[2018-09-23] MEDS: Normal Saline 1,000 ML 125 ML IV (18:12)
[2018-09-23] MEDS: Enoxaparin 40 MG/0.4 ML SYR SC (18:13)
--- NOTE | 2018-09-23 19:38 | NUR.NOTE ---
Nursing Note: Pt to [facility] floor at 1646 accompanied by family. Ambulated independently from stretcher to stretcher in room. VSS, A&Ox3, family at bedside. Pt oriented to MS floor, call wilkerson, etc. Pain medications administered at arrival. Call wilkerson within reach. RN will continue to monitor.
[2018-09-23] MEDS: ACETAMINOPHEN 1,000 MG/100 ML BTL 400 MG IVPB (20:55)
--- NOTE | 2018-09-23 23:44 | W.PM.PROGNOT ---
Date of Service Date of service: 09/23/18 Time of Service: 23:45 Assessment and Plan (1) Recurrent umbilical hernia with incarceration: Current visit: Yes Status: Acute I did review the patient's care with her nurse. Patient is doing well. She has adequate pain control. She is doing her I-S and we will get her a nicotine patch for smoking she is albuterol as needed for her asthma symptoms she has morphine and [place] for pain. She does not require any further antibiotics. She can have clear liquids and advance diet as tolerated. She should be up walking. She did get her home medications. And we should be able to discharge her in a.m. all her questions were asked she is particularly concerned about instructions when she goes home we will address those in the morning. Subjective Interval history since last seen: Pt is doing well. no headaches. No CP or SOB. no productive cough. no dysuria. no leg pain or swelling. pain is controlled. dressing c/d/i. urinating OK. tolerating lclears. no smoking. Exam Const General: cooperative, healthy appearing, comfortable, no acute distress, well developed and well groomed Nutritional Appearance: average body habitus and well nourished Orientation: alert, awake and oriented x3 HENMT Head: normal to inspection, normocephalic and atraumatic Ears: hearing grossly normal bilaterally and external ears normal General nose exam: external nose normal Face and sinus: normal facial exam and sinuses nontender Mouth: oral mucosae normal, lip normal, tongue normal and moist mucous membranes Teeth and gingiva: edentulous and other (no thrush) Eyes General: appearance normal, both eyes and all related structures Conjunctivae: conjunctivae normal Sclera: sclerae normal Pupils: PERRL Other: no eye pain or redness Neck Neck: normal visual inspection and full ROM Chest Chest: normal inspection of the chest Resp Effort & Inspection: normal respiratory effort, able to speak in complete sentences, no cough, no nasal flaring, not tachypneic and no use of accessory muscles Auscultation: clear to auscultation bilaterally, no rales, no rhonchi and no wheezes Cardio Jugular venous pressure: no JVD Rate: regular rate Rhythm: regular rhythm GI Inspection: normal to inspection, no edema and non-distended Palpation: soft, no masses, nontender and No ascites Auscultation: normal bowel sounds Other: dressing c/d/i. + bs pain controlled Skin General skin exam: no rashes or lesions noted Trauma: no lacerations or abrasions Neuro General: alert, oriented x3, oriented, gait normal, moves all extremities, no focal motor deficits and CN's II-XI intact bilaterally Cognition: normal cognition Speech: speech normal Gait: normal gait Motor: muscle tone normal throughout Extrem General: normal to inspection, full ROM and no clubbing, cyanosis or edema Psych Appearance: grossly normal and well kempt Mental Status: mental status grossly normal Speech and Movement: speech and movement normal Affect: normal affect Objective Objective Clinical Data: Abnormal lab results 09/23/18 09/23/18 09/23/18 Range/Units 10:50 10:50 10:50 RBC 5.71 H (4.00-5.20) m/cumm MCV 69.2 L (80-95) fL MCH 21.7 L (27.0-33.0) pg MCHC 31.4 L (32.0-36.0) g/dL RDW 19.7 H (11.7-14.6) % Plt Count 474 H (130-400) x1000/uL PT (9.3-11.0) sec Carbon Dioxide 19.4 L (21.0-32.0) mmol/L Anion Gap 14.6 H (3-11) mmol/L Glucose 140 H (70-100) mg/dL Lactate 2.0 H (0.6-1.4) mmol/L AST 7 L (15-37) U/L Total Protein 8.3 H (6.4-8.2) g/dL 09/23/18 Range/Units 10:50 RBC (4.00-5.20) m/cumm MCV (80-95) fL MCH (27.0-33.0) pg MCHC (32.0-36.0) g/dL RDW (11.7-14.6) % Plt Count (130-400) x1000/uL PT 9.0 L (9.3-11.0) sec Carbon Dioxide (21.0-32.0) mmol/L Anion Gap (3-11) mmol/L Glucose (70-100) mg/dL Lactate (0.6-1.4) mmol/L AST (15-37) U/L Total Protein (6.4-8.2) g/dL Vital Signs Temperature 36.8 C 09/23/18 23:23 Temperature Source Tympanic 09/23/18 23:23 Pulse 100 H 09/23/18 23:23 Pulse Rhythm Regular 09/23/18 17:31 Pulse Strength Normal 09/23/18 14:36 Respiratory Rate 17 09/23/18 23:23 Respiratory Effort Non-Labored 09/23/18 17:31 Respiratory Depth Normal 09/23/18 17:31 Respiratory Pattern Normal 09/23/18 17:31 Blood Pressure 120/66 09/23/18 23:23 Blood Pressure Position Sitting 09/23/18 10:08 Pulse Oximetry 95 09/23/18 23:23 Respiratory End-tidal CO2 27 09/23/18 16:19 Oxygen Delivery Method Room Air 09/23/18 23:23 Oxygen Flow Rate 0 09/23/18 23:23 Pain Level 0 09/23/18 23:23 Intake & Output 09/22/18 09/23/18 09/23/18 23:59 11:59 23:59 Intake Total 1000 / 2670 1670 / 2670 Output Total 350 / 350 Balance 1000 / 2320 1320 / 2320 Weight 63.957 kg Intake: IV 1000 / 1710 710 / 1710 Oral 960 / 960 Output: Urine 350 / 350 Other: Urine Color Yellow Urine Appearance Clear Urine Odor Normal Emesis Description None Voiding Methods Bedside Commode Laboratory Results WBC 8.88 k/cumm (4.4-10.8) 09/23/18 10:50 RBC 5.71 m/cumm (4.00-5.20) H 09/23/18 10:50 Hgb 12.4 g/dL (12.0-15.5) 09/23/18 10:50 Hct 39.5 % (36.0-46.0) 09/23/18 10:50 MCV 69.2 fL (80-95) L 09/23/18 10:50 MCH 21.7 pg (27.0-33.0) L 09/23/18 10:50 MCHC 31.4 g/dL (32.0-36.0) L 09/23/18 10:50 RDW 19.7 % (11.7-14.6) H 09/23/18 10:50 Plt Count 474 x1000/uL (130-400) H 09/23/18 10:50 MPV 10.2 fL (8.0-11.0) 09/23/18 10:50 Immature Gran % 0.6 09/23/18 10:50 67.7 09/23/18 10:50 23.6 09/23/18 10:50 6.5 09/23/18 10:50 1.0 09/23/18 10:50 0.6 09/23/18 10:50 Absolute Neutrophils 6.01 k/cumm (1.2-6.7) 09/23/18 10:50 Absolute Lymphocytes 2.10 k/cumm (1.2-3.4) 09/23/18 10:50 Absolute Monocytes 0.58 k/cumm (0.11-0.7) 09/23/18 10:50 Absolute Eosinophils 0.09 k/cumm (0.0-0.7) 09/23/18 10:50 Absolute Basophils 0.05 k/cumm (0.0-0.2) 09/23/18 10:50 PT 9.0 sec (9.3-11.0) L 09/23/18 10:50 INR 0.9 (0.9-1.1) 09/23/18 10:50 APTT 23.0 sec (21.0-31.4) 09/23/18 10:50 Sodium 137 mmol/L (136-145) 09/23/18 10:50 Potassium 3.7 mmol/L (3.5-5.1) 09/23/18 10:50 Chloride 103 mmol/L (98-107) 09/23/18 10:50 Carbon Dioxide 19.4 mmol/L (21.0-32.0) L 09/23/18 10:50 14.6 mmol/L (3-11) H 09/23/18 10:50 BUN 14 mg/dL (7-18) 09/23/18 10:50 0.93 mg/dL (0.55-1.02) 09/23/18 10:50 >= 60.00 (mL/min/1.73m2) 09/23/18 10:50 Glucose 140 mg/dL (70-100) H 09/23/18 10:50 2.0 mmol/L (0.6-1.4) H 09/23/18 10:50 Calcium 9.1 mg/dL (8.5-10.1) 09/23/18 10:50 0.2 mg/dL (0.2-1.0) 09/23/18 10:50 AST 7 U/L (15-37) L 09/23/18 10:50 ALT 22 U/L (12-78) 09/23/18 10:50 95 U/L (46-116) 09/23/18 10:50 8.3 g/dL (6.4-8.2) H 09/23/18 10:50 4.1 g/dL (3.4-5.0) 09/23/18 10:50 79 U/L (73-393) 09/23/18 10:50
[2018-09-24] MEDS: Ondansetron 4 MG/2 ML VIAL IVP (00:59)
[2018-09-24] MEDS: Normal Saline Flush 10 ML SYR IVP ×3 (00:59→11:22)
[2018-09-24] MEDS: Normal Saline 1,000 ML 125 ML IV (03:01)
[2018-09-24] MEDS: ACETAMINOPHEN 1,000 MG/100 ML BTL 400 MG IVPB (06:21)
[2018-09-24 08:09] VITALS: BP 138/74; PULSE 95; RESP 20; TEMP 36.9; O2SAT 98
--- NOTE | 2018-09-24 10:01 | PDOC.CMIN ---
Care Management Initial Assess REASON FOR HOSPITALIZATION:: Incarcerated Umbilical Hernia-recurrent PAST MEDICAL HISTORY/PAST SURGICAL HISTORY:: abdominal hernia, abdominal pain, asthma, bilat LEEE, calcium nephrolithiasis, chronic back pain, GERD, Hematuria, hiatal hernia, hypertension, IBS, Insomnia, Prediabetes, recurrent umbilical hernia with incarceration, tobacco use, bone spur R foot, ligation of fallopian tube, mirtha fundoplication, tooth extraction. PREVIOUS FUNCTIONAL STATUS/SOCIAL/FAMILY SUPPORTS:: Ruby resides in [facility], her significant other Gissell and daughter Margaret reside in [facility] as well. ADVANCE DIRECTIVES:: None on file at [facility]. Has patient been provided with information about the portal?: Yes Did the patient sign up for the portal?: No CODE STATUS:: Full Code INSURANCE COVERAGE / FINANCIAL ISSUES:: Medicare. Medicaid PRIMARY CARE PHYSICIAN:: Talisha Treviño POTENTIAL DISCHARGE NEEDS:: Follow up appointments. PATIENT/FAMILY EDUCATION NEEDS:: Review of community based supports, discharge instructions, discuss Ask Me Three. ANTICIPATED BARRIERS TO DISCHARGE:: None identified. TRANSPORTATION:: Via private vehicle with family. PLAN:: Ruby will continue to be closely monitored post operatively for pain and her diet slowly advanced as tolerated. Anticipate she will return home with no additional services. She will transport via private vehicle with family. CM will continue to follow and support discharge planning considerations.
--- NOTE | 2018-09-24 11:36 | PHARADMIT ---
Admission Pharmacy Clinical Review INCARCERATED IMBILICAL HERNIA-RECURRENT ( went to OR 09/23) Code Status Full Code Current Weight Wgt-64 kg Renally Cleared and Narrow Therapeutic Index Meds CrCl~ 57.7 mL/min Meds-OK QTc Value / Action Taken QTc-417 na BP Control, Fever BP- 138/74 Tmax-36.9C Electrolytes reviewed Na- 137 K+3.7 DVT Prophylaxis Lovenox 40mg Opiate Usage / Scheduled Bowel Regimen Ordered Yes No Plt/SCr for Heparin / Enoxaparin Plts-474 SCr-0.93 INR for Warfarin inr-0.9 H/H stable, WBC/Bands H&H- 12.4/39.5 WBC- 8.88 Antibiotic appropriateness Zosyn pre-op Cultures and Sensitivities none Surgical ABX d/c within 24 hr na DM control / Insulin Dosing BG-140 Heart Failure (Check EF%) (KING's, B-Block, Diuretics) none IV to PO Switch No Home Meds Reviewed Yes Home Meds Not Ordered Rg Mcclurebelauryn, Comments
--- NOTE | 2018-09-24 11:56 | W.PM.DS.N ---
Date of service: 09/24/18 Time of Service: 11:56 DS: Diagnosis Discharge Diagnosis (1) Recurrent umbilical hernia with incarceration: Status: Acute Discharge Plan Disposition Patient Disposition: HOME Condition: Stable Discharge Details Chief Complaint: Abd Prob Clinical Impression: Abdominal hernia Reason For Visit: INCARCERATED UMBILICAL HERNIA-RECURRENT Admit Date/Time: 09/23/18 16:11 Admit Provider: Katja Helms Attending Provider: Katja Helms Primary Care Provider: Talisha Treviño ED Provider: Samuel Patricio Hospital Course Hospital Course: unremarkable Home Meds and New Rx's Prescriptions: New magnesium hydroxide 400 mg/5 mL suspension 30 ml PO DAILY PRN PRNQty: 100 RF: 0 ibuprofen [IBU] 600 mg tablet 600 mg PO QID PRN (Reason: pain) Qty: 60 RF: 4 hydrocodone-acetaminophen 5-325 mg tablet 1 tab PO Q6H PRN (Reason: pain) Qty: 10 RF: 0 polyethylene glycol 3350 [Miralax] 17 gram/dose powder 17 gm PO DAILY Qty: 119 RF: 0 nicotine (polacrilex) [Quit 2] 2 mg lozenge 2 mg MM Q5H PRN (Reason: nicotine cravings) Qty: 24 RF: 0 Continued cyclobenzaprine 10 mg Tablet 10 mg PO BID RF: 0 albuterol sulfate [Ventolin HFA] 90 mcg/actuation Hfa Aerosol Inhaler 2 puff Inhalation Q6H PRNRF: 0 Discontinued losartan-hydrochlorothiazide 50-12.5 mg tablet 1 tab PO DAILY RF: 0 Discharge Instructions Additional Instructions: Keep an ice bag on the incision. 20 minutes on and 20 minutes off. Ice keeps the swelling down and swelling causes pain. Make sure you wrap the ice pack in a towel and don't apply directly to the skin. -No driving x3 days or of you are taking narcotic pain medications. -Follow-up with Dr. Helms. You will need to call for an appt on Tuesday. F/u on . -soft diet, avoid spicy greasy foods x 1 wk. -no straining to move bowels -pain meds are very constipating: if you do not move your bowels daily take a dose of OTC milk of magnesia -It is ok to shower. No bathe, soaking, swimming or hot tubs -Keep wound clean and dry. Wash incision with soap and water daily. Pat dry, don't rub. - You may find that your appetite is smaller. Eat 3-6 small meals throughout the day. It is important to drink lots of water after surgery, 6-10 glasses a day. 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 -We do want you up walking, at least 5-6 times per day. This is very important to prevent pneumonia and blood clots. You can climb stairs, take them slowly. -No lifting over 5 pounds. x 3 wks. This is very important to avoid developing a hernia in your incision. -You may find that you are very tired after surgery- this is normal. -please do not smoke for a minimum of 72 hours after surgery. -F/u w/ PCP this week as well regarding intolerance to losaartin. stop taking this medication. Activity:: no lifting over 5#'s xx 3 weeks. up walking to avoid pneumonia and blood clots x5 daily Equipment/Supplies:: No Equipment Needed Diet:: As Tolerated DS: Data Vitals/I&O Vitals and I&O: Vital Signs Temperature 36.9 C 09/24/18 08:09 Temperature Source Tympanic 09/24/18 08:09 Pulse 95 H 09/24/18 08:09 Pulse Rhythm Regular 09/24/18 08:23 Pulse Strength Normal 09/23/18 14:36 Respiratory Rate 20 09/24/18 08:09 Respiratory Effort Non-Labored 09/24/18 08:23 Respiratory Depth Normal 09/24/18 08:23 Respiratory Pattern Normal 09/24/18 08:23 Blood Pressure 138/74 09/24/18 08:09 Blood Pressure Position Sitting 09/23/18 10:08 Pulse Oximetry 98 09/24/18 08:09 Respiratory End-tidal CO2 27 09/23/18 16:19 Oxygen Delivery Method Room Air 09/24/18 08:09 Oxygen Flow Rate 0 09/24/18 08:09 Pain Level 9 09/24/18 11:22 Intake & Output 09/23/18 09/23/18 09/24/18 11:59 23:59 11:59 Intake Total 1000 / 2770 1770 / 2770 2760 / 2760 Output Total 550 / 550 500 / 500 Balance 1000 / 2220 1220 / 2220 2260 / 2260 Weight 63.957 kg Intake: IV 1000 / 1810 810 / 1810 2120 / 2120 Oral 960 / 960 640 / 640 Output: Urine 550 / 550 500 / 500 Other: Urine Color Pale Pale Yellow Yellow Urine Appearance Clear Clear Urine Odor None None Comment Void x2 in toilet. Emesis Description None Voiding Methods Toilet Toilet [facility] Medical History (Updated 09/23/18 @ 15:18 by Katja Helms DO) Abdominal hernia (Acute) Abdominal pain (Chronic) Asthma (Chronic) Bilateral lower extremity edema (Acute) Calcium nephrolithiasis (Chronic) Chronic back pain (Chronic) GERD (gastroesophageal reflux disease) (Chronic) Hematuria (Acute) Hiatal hernia (Chronic) Hypertension (Chronic) IBS (irritable bowel syndrome) (Chronic) Insomnia (Acute) Prediabetes (Acute) Recurrent umbilical hernia with incarceration (Acute) Tobacco use (Chronic) Surgical History bone spur R foot. (Resolved) Ligation of fallopian tube (Chronic) Status post Molly fundoplication (Acute) Tooth extraction (Resolved) Social History Smoking/Tobacco Use Status: Current every day Tobacco Type: cigarettes Alcohol Intake: never Drug use: Never Substance use type: does not use Do you feel safe at home: Yes Do you feel safe in your relationship?: Yes History History Para 0 Hx # Term Pregnancies Multiple births Hx # Pregnancies Ectopic pregnancies AB induced Hx Number of Living Children AB spontaneous
--- NOTE | 2018-09-24 12:48 | W.PM.PROGNOT ---
Date of Service Date of service: 09/24/18 Time of Service: 12:48 Assessment and Plan (1) Recurrent umbilical hernia with incarceration: Current visit: No Status: Acute see d/c summary needs to f/u w/ PCP this week- pt was getting dizzy and nauseated from BP and meds. this will require re-eval. BP stable while in hosp. avoid any heavy lifting ovwer 5#'s for 3 wks off of work x 1 wk. no straining to move bowels/avoid constipation- continue to use Miralax Subjective Interval history since last seen: Pt is doing well. no headaches. No CP or SOB. no productive cough. no dysuria. no leg pain or swelling. tolerating po's. pain is controlled. plan dc home today. reviewed finding surginy and care at home Exam Const General: cooperative, healthy appearing, comfortable, no acute distress, well developed and well groomed Nutritional Appearance: average body habitus and well nourished Orientation: alert, awake and oriented x3 HENMT Head: normal to inspection, normocephalic and atraumatic Ears: hearing grossly normal bilaterally and external ears normal General nose exam: external nose normal Face and sinus: normal facial exam and sinuses nontender Mouth: oral mucosae normal, lip normal, tongue normal and moist mucous membranes Teeth and gingiva: dentition normal Eyes General: appearance normal, both eyes and all related structures Conjunctivae: conjunctivae normal Sclera: sclerae normal Pupils: PERRL Neck Neck: normal visual inspection and full ROM Chest Chest: normal inspection of the chest Resp Effort & Inspection: normal respiratory effort, able to speak in complete sentences, no cough, no nasal flaring, not tachypneic and no use of accessory muscles Auscultation: clear to auscultation bilaterally, no rales, no rhonchi and no wheezes Cardio Jugular venous pressure: no JVD Rate: regular rate Rhythm: regular rhythm GI Inspection: normal to inspection, no edema, non-distended and incision (c/d/i) Palpation: soft, no masses, tender and No ascites Auscultation: normal bowel sounds Skin General skin exam: no rashes or lesions noted Trauma: no lacerations or abrasions Neuro General: alert, oriented x3, oriented, gait normal, moves all extremities, no focal motor deficits and CN's II-XI intact bilaterally Cognition: normal cognition Speech: speech normal Gait: normal gait Motor: muscle tone normal throughout Extrem General: normal to inspection, full ROM and no clubbing, cyanosis or edema Psych Appearance: grossly normal and well kempt Mental Status: mental status grossly normal Speech and Movement: speech and movement normal Affect: normal affect Objective Objective Clinical Data: Vital Signs Temperature 36.9 C 09/24/18 08:09 Temperature Source Tympanic 09/24/18 08:09 Pulse 95 H 09/24/18 08:09 Pulse Rhythm Regular 09/24/18 08:23 Pulse Strength Normal 09/23/18 14:36 Respiratory Rate 20 09/24/18 08:09 Respiratory Effort Non-Labored 09/24/18 08:23 Respiratory Depth Normal 09/24/18 08:23 Respiratory Pattern Normal 09/24/18 08:23 Blood Pressure 138/74 09/24/18 08:09 Blood Pressure Position Sitting 09/23/18 10:08 Pulse Oximetry 98 09/24/18 08:09 Respiratory End-tidal CO2 27 09/23/18 16:19 Oxygen Delivery Method Room Air 09/24/18 08:09 Oxygen Flow Rate 0 09/24/18 08:09 Pain Level 9 09/24/18 11:22 Intake & Output 09/23/18 09/24/18 09/24/18 23:59 11:59 23:59 Intake Total 1770 / 2770 2760 / 2760 Output Total 550 / 550 500 / 500 Balance 1220 / 2220 2260 / 2260 Intake: IV 810 / 1810 2120 / 2120 Oral 960 / 960 640 / 640 Output: Urine 550 / 550 500 / 500 Other: Urine Color Pale Pale Yellow Yellow Urine Appearance Clear Clear Urine Odor None None Comment Void x2 in toilet. Emesis Description None Voiding Methods Toilet Toilet Laboratory Results WBC 8.88 k/cumm (4.4-10.8) 09/23/18 10:50 RBC 5.71 m/cumm (4.00-5.20) H 09/23/18 10:50 Hgb 12.4 g/dL (12.0-15.5) 09/23/18 10:50 Hct 39.5 % (36.0-46.0) 09/23/18 10:50 MCV 69.2 fL (80-95) L 09/23/18 10:50 MCH 21.7 pg (27.0-33.0) L 09/23/18 10:50 MCHC 31.4 g/dL (32.0-36.0) L 09/23/18 10:50 RDW 19.7 % (11.7-14.6) H 09/23/18 10:50 Plt Count 474 x1000/uL (130-400) H 09/23/18 10:50 MPV 10.2 fL (8.0-11.0) 09/23/18 10:50 Immature Gran % 0.6 09/23/18 10:50 67.7 09/23/18 10:50 23.6 09/23/18 10:50 6.5 09/23/18 10:50 1.0 09/23/18 10:50 0.6 09/23/18 10:50 Absolute Neutrophils 6.01 k/cumm (1.2-6.7) 09/23/18 10:50 Absolute Lymphocytes 2.10 k/cumm (1.2-3.4) 09/23/18 10:50 Absolute Monocytes 0.58 k/cumm (0.11-0.7) 09/23/18 10:50 Absolute Eosinophils 0.09 k/cumm (0.0-0.7) 09/23/18 10:50 Absolute Basophils 0.05 k/cumm (0.0-0.2) 09/23/18 10:50 PT 9.0 sec (9.3-11.0) L 09/23/18 10:50 INR 0.9 (0.9-1.1) 09/23/18 10:50 APTT 23.0 sec (21.0-31.4) 09/23/18 10:50 Sodium 137 mmol/L (136-145) 09/23/18 10:50 Potassium 3.7 mmol/L (3.5-5.1) 09/23/18 10:50 Chloride 103 mmol/L (98-107) 09/23/18 10:50 Carbon Dioxide 19.4 mmol/L (21.0-32.0) L 09/23/18 10:50 14.6 mmol/L (3-11) H 09/23/18 10:50 BUN 14 mg/dL (7-18) 09/23/18 10:50 0.93 mg/dL (0.55-1.02) 09/23/18 10:50 >= 60.00 (mL/min/1.73m2) 09/23/18 10:50 Glucose 140 mg/dL (70-100) H 09/23/18 10:50 2.0 mmol/L (0.6-1.4) H 09/23/18 10:50 Calcium 9.1 mg/dL (8.5-10.1) 09/23/18 10:50 0.2 mg/dL (0.2-1.0) 09/23/18 10:50 AST 7 U/L (15-37) L 09/23/18 10:50 ALT 22 U/L (12-78) 09/23/18 10:50 95 U/L (46-116) 09/23/18 10:50 8.3 g/dL (6.4-8.2) H 09/23/18 10:50 4.1 g/dL (3.4-5.0) 09/23/18 10:50 79 U/L (73-393) 09/23/18 10:50
--- NOTE | 2018-09-25 10:42 | ROE_ITS ---
DATE OF PROCEDURE: September 23, 2018 PREOPERATIVE DIAGNOSIS: Incarcerated recurrent umbilical hernia. POSTOPERATIVE DIAGNOSIS: Incarcerated recurrent umbilical hernia. SURGEON: Katja Helms D.O. ANESTHESIA: General. METER INSTALLER: Adriana Aguilar ESTIMATED BLOOD LOSS: < 5 cc's NO DRAINS. NO SPECIMEN. CONDITION: The patient tolerated the procedure well without complications. INDICATION FOR PROCEDURE: Ms. Sprague is a 38-year-old female who presented to the E.R. with a known umbilical hernia. It is currently incarcerated with the small bowel on CT scan and is not reducible. She has had umbilical hernia repair twice before. Mesh was never placed before. The patient will be taken to the O.R. for repair today on an emergent basis. Informed consent was obtained explaining risks and benefits of the procedure including but not limited to bleeding, infection, pneumonia, blood clots, possible damage to bowel, bladder or underlying organs; possible recurrence; possible bowel resection, possible reaction to the mesh or infections necessitating removal; complications of anesthesia; other unforetold complications. DESCRIPTION OF PROCEDURE: The patient is brought to the operative room suite and placed in the supine position. Anesthesia is administered per the Department of Anesthesia. A Garza catheter was placed. She did receive preop antibiotics. The patient is prepped and draped in the usual sterile fashion using a ChloraPrep scrub solution. A time-out is performed. 30 cc's of 0.25% Marcaine with epinephrine is used as a local anesthetic. A 2-inch incision is made in the supraumbilical area. Small Trinidad retractors are used to facilitate visualization. The hernia is noted; bowel reduced with induction and with paralytics. Bowel visualized is pink and healthy. There is a small piece of omentum that is protruding through; this was replaced into the abdomen. Electrocautery was used to dissect around the fascia around the hernia site. And again, everything appears to be healthy and viable and no signs of any infections. The hernia defect is closed with two stitches of #2-0 Prolene and a soft Marlex mesh is placed over the defect and sewn in place with #2-0 Vicryl. The wound is then irrigated. The deep tissue and the bellybutton are reapproximated with #3-0 Vicryl. The skin is approximated with #4-0 Monocryl in running subcuticular fashion and the skin is closed with skin glue. Compression dressings are applied. The patient tolerated the procedure well without complications, transferred to recovery room in stable condition. She will be kept in the hospital overnight and discharged in the morning. cc: Talisha Treviño M.D.
== END 2018-09-24 13:14 | disposition home or self-care (01) | DRG 355 ==
LOC: ER 14:19 → SUR 15:05 → MS 16:54
PROVIDERS: Admitting Provider Surgery; Emergency Provider Emergency Medicine; PCP Family Medicine; Visit Provider Surgery
PROC: 0WUF0JZ Supplement Abdominal Wall with Synthetic Substitute, Open Approach (ICD-10-PCS; CPT 49000; principal; 2018-09-23 15:00)
DX: K42.0 Umbilical hernia with obstruction, without gangrene (principal); K21.9 Gastro-esophageal reflux disease without esophagitis
CPT/HCPCS: 49587; 36415; 80053; 83690; 96361; 96365; 96375; 99222; 99232; 99238; 99285; J1650; NC; 74177; 83605; 85025; 85610; 85730; C1781; J0131; J1100; J1885; J2250; J2405; J2543; J3010; J3490

== ENCOUNTER 2018-09-26 10:31 | Emergency (ER) | payer MEDICARE, MEDICAID, SELFPAY ==
[2018-09-26] VITALS (27 sets, daily range): BP systolic 133–154; BP diastolic 68–93; PULSE 83–97; RESP 10–23; TEMP 37.3; O2SAT 92–98
[2018-09-26] MEDS: Normal Saline 1,000 ML 1000 ML IV (11:00)
--- NOTE | 2018-09-26 11:08 | ED.GENADUL_ITS ---
Discharge Plan Disposition Patient Disposition: HOME Condition: Stable Discharge Details Chief Complaint: Abd Prob Clinical Impression: Postoperative abdominal pain, Abdominal wall cellulitis Primary Care Provider: Talisha Treviño ED Provider: Bj Prince Home Meds and New Rx's Prescriptions: Continued cyclobenzaprine 10 mg Tablet 10 mg PO BID RF: 0 albuterol sulfate [Ventolin HFA] 90 mcg/actuation Hfa Aerosol Inhaler 2 puff Inhalation Q6H PRNRF: 0 bisacodyl [Bisa-Lax] 5 mg tablet,delayed release (DR/EC) 5 mg PO QHS PRN (Reason: constipation) 14 Days Qty: 14 RF: 0 polyethylene glycol 3350 [Miralax] 17 gram/dose powder 17 gm PO DAILY Qty: 119 RF: 0 amoxicillin-pot clavulanate 875-125 mg tablet 1 tab PO BID 7 Days Qty: 14 RF: 0 magnesium hydroxide 400 mg/5 mL suspension 30 ml PO DAILY PRN PRNQty: 100 RF: 0 ibuprofen [IBU] 600 mg tablet 600 mg PO QID PRN (Reason: pain) Qty: 60 RF: 4 hydrocodone-acetaminophen 5-325 mg tablet 1 tab PO Q6H PRN (Reason: pain) Qty: 10 RF: 0 nicotine (polacrilex) [Quit 2] 2 mg lozenge 2 mg MM Q5H PRN (Reason: nicotine cravings) Qty: 24 RF: 0 Discharge Instructions Instructions: Cellulitis (ED), Abdominal Pain (ED) Additional Instructions: Return immediately to the emergency department for any new or significant worsening of symptoms otherwise follow-up with general surgery as previously arranged. Take your medication as prescribed and start your antibiotic dose tonight. Referrals: Katja Helms DO [OSTEOPATHIC DOCTOR] - Discharge Data Discharge Date/Time-TO BE ENTERED AT DEPARTURE: 09/26/18 14:17 Medical Decision Making Patient presenting the emergency department chief complaint of abdominal pain. Patient reports that she has been having abdominal pain since her surgery 3 days ago but yesterday morning it felt slightly better but then by the evening it felt worse. Patient states that she is passing gas but still has not had a bowel movement since preop. Patient saw her primary care provider today who sent her to the emergency department due to worsening abdominal pain. Patient has diffuse abdominal tenderness with soft abdomen, normal active bowel sounds. Abdominal wall does have erythema inferior to the incision site but incision site itself looks like it is healing well. No dehiscence. Patient denies any nausea vomiting, increase activity, or lifting. Plan to check labs but I feel that patient's diffuse abdominal pain is more secondary to her operation but erythema may be a secondary infection. Review of labs shows baseline anemia, no leukocytosis or left shift, nondiagn ostic CMP. Initially spoke with Dr. Madera who was unable to come and evaluate patient but stated that patient should be given medication for constipation and continue to use her pain medication. Given the erythema noted on the anterior abdomen and patient having point tenderness there I did call Dr. Helms. She was able to come and evaluate the patient and recommended IV medication along with patient be placed on Augmentin on outpatient basis. Patient placed upon these recommendations and did discuss return precautions along with follow-up with surgery. After discussion of diagnosis and plan of care patient has no further needs, questions, or concerns and states clear understanding to return to the emergency department for any worsening symptoms. HPI General Mode of arrival: ambulatory . Date/Time Provider Initiated Documentation: 09/26/18 10:36 . Limitations to Documentation: no limitations . Information obtained by: patient and RN notes reviewed . History of Present Illness 38 year old F presents to the emergency department with the chief complaint of abd pain, described as severe, with intensity rated at 10. Quality is described as burning and sharp, and is localized to the abdomen. Patient started experiencing this day(s) (3) and it has been constant. No exacerbating factors reported . Patient did receive the following treatments prior to arrival, none Related Data Home Medications Medication Instructions Recorded Confirmed cyclobenzaprine 10 mg PO BID 02/14/18 09/23/18 albuterol sulfate [Ventolin HFA] 2 puff INHALATION Q6H PRN 06/01/18 09/23/18 hydrocodone-acetaminophen 1 tab PO Q6H PRN #10 tab 09/24/18 ibuprofen [IBU] 600 mg PO QID PRN #60 tab 09/24/18 magnesium hydroxide 30 ml PO DAILY PRN PRN #100 ml 09/24/18 nicotine (polacrilex) [Quit 2] 2 mg MM Q5H PRN #24 each 09/24/18 amoxicillin-pot clavulanate 1 tab PO BID 7 Days #14 tab 09/26/18 bisacodyl [Bisa-Lax] 5 mg PO QHS PRN 14 Days #14 tab 09/26/18 polyethylene glycol 3350 [Miralax] 17 gm PO DAILY #119 gm 09/26/18 Previous Rx's Medication Instructions Recorded hydrocodone-acetaminophen 1 tab PO Q6H PRN #10 tab 09/24/18 ibuprofen [IBU] 600 mg PO QID PRN #60 tab 09/24/18 magnesium hydroxide 30 ml PO DAILY PRN PRN #100 ml 09/24/18 nicotine (polacrilex) [Quit 2] 2 mg MM Q5H PRN #24 each 09/24/18 amoxicillin-pot clavulanate 1 tab PO BID 7 Days #14 tab 09/26/18 bisacodyl [Bisa-Lax] 5 mg PO QHS PRN 14 Days #14 tab 09/26/18 polyethylene glycol 3350 [Miralax] 17 gm PO DAILY #119 gm 09/26/18 Allergies Allergy/AdvReac Type Severity Reaction Status Date / Time No Known Allergies Allergy Unverified 09/23/18 10:11 General Stated Complaint: Abd Prob CLIFFORD: 3 Review of Systems Constitutional Denies chills, Denies fever(s) and Reports poor appetite Cardiovascular Denies chest pain and Denies dyspnea Respiratory Denies cough and Denies dyspnea Gastrointestinal Reports as per HPI, Reports abdominal pain, Denies melena, Denies change in bowel habits, Reports constipation, Denies diarrhea, Denies nausea and Denies vomiting Genitourinary Denies dysuria and Denies urinary incontinence Integumentary/Breasts Denies rash [facility] Medical History Abdominal hernia (Acute) Abdominal pain (Chronic) Asthma (Chronic) Bilateral lower extremity edema (Acute) Calcium nephrolithiasis (Chronic) Chronic back pain (Chronic) GERD (gastroesophageal reflux disease) (Chronic) Hematuria (Acute) Hiatal hernia (Chronic) Hypertension (Chronic) IBS (irritable bowel syndrome) (Chronic) Insomnia (Acute) Prediabetes (Acute) Recurrent umbilical hernia with incarceration (Acute) Tobacco use (Chronic) Surgical History bone spur R foot. (Resolved) Ligation of fallopian tube (Chronic) Status post Molly fundoplication (Acute) Tooth extraction (Resolved) Social History Smoking/Tobacco Use Status: Current every day Tobacco Type: cigarettes Alcohol Intake: never Drug use: Never Substance use type: does not use Do you feel safe at home: Yes Do you feel safe in your relationship?: Yes History History Para 0 Hx # Term Pregnancies Multiple births Hx # Pregnancies Ectopic pregnancies AB induced Hx Number of Living Children AB spontaneous Exam Const General: cooperative Orientation: alert, awake and oriented x3 Resp Effort & Inspection: normal respiratory effort and able to speak in complete sentences Auscultation: clear to auscultation bilaterally Cardio Rate: regular rate Rhythm: regular rhythm Heart Sounds: S1 normal and S2 normal GI Inspection: incision (Superior to umbilical) and other (Erythema inferior to incision) Palpation: soft, no hepatosplenomegaly, not firm, no guarding, no masses, no pulsatile masses, not rigid, no splenomegaly and tender (Diffuse nonfocal) Gonzalez's sign negative Auscultation: normal bowel sounds Back/Spine/Pelvis Back: no CVA tenderness Neuro General: alert, awake, oriented x3, gait normal and moves all extremities Course Vital Signs Temperature 37.3 C 09/26/18 10:42 Pulse 94 H 09/26/18 10:42 Respiratory Rate 16 09/26/18 10:42 Blood Pressure 138/93 H 09/26/18 10:42 Pulse Oximetry 98 09/26/18 10:42 Temperature 37.3 C 09/26/18 10:42 Temperature Source Oral 09/26/18 10:42 Pulse 94 H 09/26/18 10:42 Respiratory Rate 16 09/26/18 10:42 Blood Pressure 138/93 H 09/26/18 10:42 Blood Pressure Position Supine 09/26/18 10:42 Pulse Oximetry 98 09/26/18 10:42 Oxygen Delivery Method Room Air 09/26/18 10:42 Oxygen Flow Rate 0 09/26/18 10:42 Pain Level 10 09/26/18 10:42
[2018-09-26 11:09] LABS: Lactate 0.9 mmol/L (0.6-1.4)
[2018-09-26 11:12] LABS: Abs Immature Grans 0.02 k/cumm (0.0-0.09); Absolute Basophil Count 0.04 k/cumm (0.0-0.2); Absolute Lymphocyte Count 2.28 k/cumm (1.2-3.4); Absolute Monocyte Count 0.84 k/cumm (0.11-0.7); Basophils % 0.5; Eosinophils % 1.2; HCT 32.3 % (36.0-46.0); HGB 10.1 g/dL (12.0-15.5); Immature Grans % 0.2; Lymphocytes % 26.3; Mean Corp. HGB Concentration 31.3 g/dL (32.0-36.0); Mean Corpuscular Hemoglobin 21.9 pg (27.0-33.0); Mean Corpuscular Volume 70.1 fL (80-95); Mean Platelet Volume 10.1 fL (8.0-11.0); Monocytes % 9.7; Neutrophils % 62.1; Platelet Count 407 x1000/uL (130-400); RBC 4.61 m/cumm (4.00-5.20); White Blood Cell Count 8.68 k/cumm (4.4-10.8)
[2018-09-26] MEDS: Ondansetron 4 MG/2 ML VIAL IVP (11:14)
[2018-09-26 11:21] LABS: Lipase 43 U/L (73-393)
[2018-09-26 11:24] LABS: ALT 18 U/L (12-78); AST 8 U/L (15-37); Albumin 3.4 g/dL (3.4-5.0); Alkaline Phosphatase 78 U/L (46-116); Anion Gap 12.6 mmol/L (3-11); BUN 9 mg/dL (7-18); Bilirubin, Total 0.3 mg/dL (0.2-1.0); CO2 22.4 mmol/L (21.0-32.0); CREATININE 0.78 mg/dL (0.55-1.02); Calcium 8.8 mg/dL (8.5-10.1); Chloride 104 mmol/L (98-107); Glucose 111 mg/dL (70-100); Potassium 3.3 mmol/L (3.5-5.1); Sodium 139 mmol/L (136-145); Total Protein 7.2 g/dL (6.4-8.2)
[2018-09-26 11:29] LABS: Anisocytosis 2+; Diff Comment RBC Morph Reviewed; Microcytosis 1+; Polychromasia Present
[2018-09-26 11:30] LABS: Poikilocytes 1+
--- NOTE | 2018-09-26 13:08 | W.PM.PROGNOT ---
Date of Service Date of service: 09/26/18 Time of Service: 13:08 Assessment and Plan (1) Recurrent umbilical hernia with incarceration: Current visit: No Status: Acute (2) Abdominal wall cellulitis: Current visit: Yes Status: Acute will treat more aggressively b/c of new placed mesh w/ Augmentin f/u in clinic as previously scheduled yogurt daily while on abx (3) Constipation due to pain medication: Current visit: Yes Status: Acute mg citrate Rx placed for dulcolax prn cont Miralax Subjective Interval history since last seen: pt noted an area of increasing redness that is actually inferior to the incision. It is very tender to touch. She has not had a BM since b/f surgery. She denies any dysuria. No cough. no CP or SOB. She c/o of abdominal cramping. She is passing gas. She has been tolerating po's and no N/V. She has no pain/swelling/redness in LE. no thrush or yeast. Exam Const General: cooperative, healthy appearing, comfortable and no acute distress Nutritional Appearance: average body habitus and well nourished Orientation: alert, awake and oriented x3 HENMT Head: normal to inspection Ears: hearing grossly normal bilaterally Mouth: moist mucous membranes and normal tongue Teeth and gingiva: poor dentition Eyes Conjunctivae: conjunctivae normal Sclera: sclerae normal Resp Effort & Inspection: normal respiratory effort and able to speak in complete sentences Auscultation: clear to auscultation bilaterally Cardio Rate: regular rate Rhythm: regular rhythm GI Inspection: incision Palpation: soft Auscultation: normal bowel sounds Other: incision itself is c/d/i. there is an area of redness about 2 below the incision. 2x2. red/tender. doesn't feel fluctuate. + BS Abdomen image: 1. 2. 3. Skin Other: see above Extrem General: normal to inspection and no calf tenderness Objective Objective Clinical Data: Abnormal lab results 09/26/18 09/26/18 09/26/18 Range/Units 10:55 10:55 10:55 Hgb 10.1 L (12.0-15.5) g/dL Hct 32.3 L (36.0-46.0) % MCV 70.1 L (80-95) fL MCH 21.9 L (27.0-33.0) pg MCHC 31.3 L (32.0-36.0) g/dL RDW 19.0 H (11.7-14.6) % Plt Count 407 H (130-400) x1000/uL Absolute Monocytes 0.84 H (0.11-0.7) k/cumm Potassium 3.3 L (3.5-5.1) mmol/L Anion Gap 12.6 H (3-11) mmol/L Glucose 111 H (70-100) mg/dL AST 8 L (15-37) U/L Lipase 43 L (73-393) U/L Vital Signs Temperature 37.3 C 09/26/18 10:42 Temperature Source Oral 09/26/18 10:42 Pulse 90 09/26/18 12:46 Pulse 93 H 09/26/18 12:50 Respiratory Rate 16 09/26/18 12:50 Respiratory Effort 09/26/18 11:41 Blood Pressure 133/76 09/26/18 12:46 Blood Pressure Mean 90 09/26/18 12:46 Blood Pressure Position Supine 09/26/18 10:42 Pulse Oximetry 95 09/26/18 12:50 Oxygen Delivery Method Room Air 09/26/18 10:42 Oxygen Flow Rate 0 09/26/18 10:42 Pain Level 10 09/26/18 10:42 Intake & Output 09/25/18 09/26/18 09/26/18 23:59 11:59 23:59 Weight 65.771 kg Laboratory Results WBC 8.68 k/cumm (4.4-10.8) 09/26/18 10:55 RBC 4.61 m/cumm (4.00-5.20) 09/26/18 10:55 Hgb 10.1 g/dL (12.0-15.5) L 09/26/18 10:55 Hct 32.3 % (36.0-46.0) L 09/26/18 10:55 MCV 70.1 fL (80-95) L 09/26/18 10:55 MCH 21.9 pg (27.0-33.0) L 09/26/18 10:55 MCHC 31.3 g/dL (32.0-36.0) L 09/26/18 10:55 RDW 19.0 % (11.7-14.6) H 09/26/18 10:55 Plt Count 407 x1000/uL (130-400) H 09/26/18 10:55 MPV 10.1 fL (8.0-11.0) 09/26/18 10:55 Immature Gran % 0.2 09/26/18 10:55 62.1 09/26/18 10:55 26.3 09/26/18 10:55 9.7 09/26/18 10:55 1.2 09/26/18 10:55 0.5 09/26/18 10:55 Absolute Neutrophils 5.40 k/cumm (1.2-6.7) 09/26/18 10:55 Absolute Lymphocytes 2.28 k/cumm (1.2-3.4) 09/26/18 10:55 Absolute Monocytes 0.84 k/cumm (0.11-0.7) H 09/26/18 10:55 Absolute Eosinophils 0.10 k/cumm (0.0-0.7) 09/26/18 10:55 Absolute Basophils 0.04 k/cumm (0.0-0.2) 09/26/18 10:55 Rbc morph reviewed 09/26/18 10:55 RBC Morphology See below 09/26/18 10:55 Present 09/26/18 10:55 1+ 09/26/18 10:55 2+ 09/26/18 10:55 1+ 09/26/18 10:55 Sodium 139 mmol/L (136-145) 09/26/18 10:55 Potassium 3.3 mmol/L (3.5-5.1) L 09/26/18 10:55 Chloride 104 mmol/L (98-107) 09/26/18 10:55 Carbon Dioxide 22.4 mmol/L (21.0-32.0) 09/26/18 10:55 12.6 mmol/L (3-11) H 09/26/18 10:55 BUN 9 mg/dL (7-18) 09/26/18 10:55 0.78 mg/dL (0.55-1.02) 09/26/18 10:55 >= 60.00 (mL/min/1.73m2) 09/26/18 10:55 Glucose 111 mg/dL (70-100) H 09/26/18 10:55 0.9 mmol/L (0.6-1.4) 09/26/18 10:55 Calcium 8.8 mg/dL (8.5-10.1) 09/26/18 10:55 0.3 mg/dL (0.2-1.0) 09/26/18 10:55 AST 8 U/L (15-37) L 09/26/18 10:55 ALT 18 U/L (12-78) 09/26/18 10:55 78 U/L (46-116) 09/26/18 10:55 7.2 g/dL (6.4-8.2) 09/26/18 10:55 3.4 g/dL (3.4-5.0) 09/26/18 10:55 43 U/L (73-393) L 09/26/18 10:55
[2018-09-26] MEDS: Magnesium Citrate 300 ML BTL PO (13:29)
[2018-09-26] MEDS: PIPERACILLIN/TAZO 3.375 GM in Normal Saline 50 ML IVPB (13:29)
[2018-09-26] MEDS: Ondansetron O.D.T. 4 MG TABEF PO (13:47)
--- NOTE | 2018-09-26 14:06 | NUR.NOTE ---
Nursing Note: pt resting in stretcher, no signs of distress. Patient states that she is feeling better after zofran administration
== END 2018-09-26 14:17 | disposition home or self-care (01) ==
PROVIDERS: Emergency Provider Nurse Practitioner Family; PCP Family Medicine
DX: R10.33 Periumbilical pain (principal); G89.18 Other acute postprocedural pain; L03.311 Cellulitis of abdominal wall; Y83.8 Other surgical procedures as the cause of abnormal reaction of the patient, or of later complication, without mention of misadventure at the time of the procedure; I10 Essential (primary) hypertension
CPT/HCPCS: 36415; 80053; 83690; 96361; 96365; 96375; 96376; 99284; NC; 83605; 85025; J2405; J2543

== ENCOUNTER → 2018-09-28 08:54 | Outpatient (BNVA) | payer MEDICARE, MEDICAID, SELFPAY | PROVIDERS: PCP Family Medicine; Referring Provider Family Medicine; Visit Provider Surgery | DX: K46.9 Unspecified abdominal hernia without obstruction or gangrene (principal); Z48.815 Encounter for surgical aftercare following surgery on the digestive system; G89.18 Other acute postprocedural pain | CPT/HCPCS: J2212; 96372 ==

== ENCOUNTER 2018-10-04 08:48 | Emergency (ER) | payer MEDICARE, MEDICAID, SELFPAY ==
[2018-10-04 08:48] VITALS: BP 136/93; PULSE 102; RESP 18; TEMP 36.6
--- NOTE | 2018-10-04 08:52 | W.ED.GENAD ---
Discharge Plan Disposition Patient Disposition: HOME Condition: Stable Discharge Details Chief Complaint: Abd Prob Clinical Impression: Fluid collection at surgical site, Abdominal pain Primary Care Provider: Talisha Treviño ED Provider: Ekaterina Seaman Home Meds and New Rx's Prescriptions: Continued cyclobenzaprine 10 mg Tablet 10 mg PO BID RF: 0 albuterol sulfate [Ventolin HFA] 90 mcg/actuation Hfa Aerosol Inhaler 2 puff Inhalation Q6H PRNRF: 0 bisacodyl [Bisa-Lax] 5 mg tablet,delayed release (DR/EC) 5 mg PO QHS PRN (Reason: constipation) 14 Days Qty: 14 RF: 0 polyethylene glycol 3350 [Miralax] 17 gram/dose powder 17 gm PO DAILY Qty: 119 RF: 0 ibuprofen [IBU] 600 mg tablet 600 mg PO QID PRN (Reason: pain) Qty: 60 RF: 4 Discharge Instructions Instructions: Abdominal Pain (ED) Additional Instructions: Alternate warm and cool compresses to the area several times daily for 20 minutes at a time. Alternate Tylenol and Motrin as needed and directed for pain. Follow-up with surgery next week in the office. Return to the emergency department if you develop any worsening or new concerning symptoms. Discharge Data Discharge Date/Time-TO BE ENTERED AT DEPARTURE: 10/04/18 11:38 Discharge Physician: Ekaterina Seaman Medical Decision Making 38-year-old female who is 11 days status post umbilical hernia repair after noted to have incarcerated hernia on CT in the ED. Patient was seen here 8 days ago and in the ED for surgical site pain and diagnosed with surgical site cellulitis and started on Augmentin. Patient states she stopped taking her Augmentin 2 days ago after taking it for 4 days due to GI upset. She took 1 dose this morning. She admits to nausea but denies any vomiting due to history of Molly. She admits to multiple episodes of diarrhea last night. Heart rate 102. Afebrile. Patient appears nontoxic. Her abdomen is soft and has periumbilical tenderness. Surgical site appears without abscess or significant infection. As this is patient's second visit here postop due to pain and she has stopped taking her antibiotics 2 days ago, will place an IV, draw screening labs, urinalysis as well as CT abdomen and pelvis, bolus IV fluids, Toradol and Zofran. Labs and imaging reviewed. White blood cell count 11. Hemoglobin stable at 10. Lactate 1. CT notes a fluid collection in the subcutaneous tissue with gas concerning for per surgical hematoma or possible infection. No deep infection noted. Results discussed with Dr. Madera and she will come to evaluate patient and perform bedside drainage to assess whether seroma or pus. Dr. Madera evaluated patient and aspirated some fluid from the site which was noted to be serous. She recommended that patient can stop the antibiotics. Recommended that she alternate Tylenol and Motrin, ice and heat and to follow-up with surgery in the office next week. A fluid culture was sent for analysis. Patient was advised to return to the ER with any worsening or concerning symptoms. Medical Records Medical records reviewed: Yes I reviewed the patient's medical records. Imaging Data Radiologic Study: Radiologist's impression: ABDOMEN AND PELVIC CT: CT examination of the abdomen and pelvis was performed with a bolus infusion of 100 cc's of Omnipaque 350. The examination is compared with most recent previous CT of 09/23/18. Patient had hernia repair reportedly on 09/23/18. On today's examination, the previously noted umbilical hernia has been repaired. There is a fluid collection at the surgical site which on transaxial images measures about 5 by 2.5 cm. in diameter. This contains fluid and a small quantity of gas. The findings are nonspecific, the findings may represent post surgical hematoma or serosa with unresorbed gas postoperatively. The possibility of infectious process not excluded on the basis of this examination. No intraperitoneal abnormality is seen, no bowel pathology. No recurrent hernia. Liver, spleen, pancreas, gallbladder and bile ducts appear normal. Bilateral renal cysts noted. Adrenals are unremarkable. Abdominal aorta and major vascular structures appear intact. CONCLUSION: Fluid and gas collection at the surgical site in the subcutaneous tissues as described above. No evidence of intraperitoneal abnormality or bowel pathology Lab Data Lab results reviewed: Yes I reviewed the patient's lab results. Laboratory Tests Range/Units 10/04/18 10/04/18 10/04/18 09:30 09:30 09:30 WBC (4.4-10.8) k/cumm 11.85 H RBC (4.00-5.20) m/cumm 4.60 Hgb (12.0-15.5) g/dL 10.1 L Hct (36.0-46.0) % 32.7 L MCV (80-95) fL 71.1 L MCH (27.0-33.0) pg 22.0 L MCHC (32.0-36.0) g/dL 30.9 L RDW (11.7-14.6) % 18.8 H Plt Count (130-400) x1000/uL 495 H MPV (8.0-11.0) fL 10.1 Immature Gran % 0.2 Neutrophils % 78.8 Lymphocytes % 11.9 Monocytes % 7.6 Eosinophils % 1.2 Basophils % 0.3 Absolute Neutrophils (1.2-6.7) k/cumm 9.34 H Absolute Lymphocytes (1.2-3.4) k/cumm 1.41 Absolute Monocytes (0.11-0.7) k/cumm 0.90 H Absolute Eosinophils (0.0-0.7) k/cumm 0.14 Absolute Basophils (0.0-0.2) k/cumm 0.04 Sodium (136-145) mmol/L 147 H Potassium (3.5-5.1) mmol/L 3.7 Chloride (98-107) mmol/L 111 H Carbon Dioxide (21.0-32.0) mmol/L 23.3 Anion Gap (3-11) mmol/L 12.7 H BUN (7-18) mg/dL 13 Creatinine (0.55-1.02) mg/dL 0.75 Estimated GFR/1.73 m2 (mL/min/1.73m2) >= 60.00 Glucose (70-100) mg/dL 126 H Lactate (0.6-1.4) mmol/L 1.0 Calcium (8.5-10.1) mg/dL 8.4 L Total Bilirubin (0.2-1.0) mg/dL 0.2 AST (15-37) U/L 7 L ALT (12-78) U/L 17 Alkaline Phosphatase (46-116) U/L 83 Total Protein (6.4-8.2) g/dL 6.9 Albumin (3.4-5.0) g/dL 3.3 L Urine Color (Yellow) Urine Clarity (Clear) Urine pH (5-8) Ur Specific [place] (1.005-1.025) Urine Protein (Negative) mg/dL Urine Ketones (Negative) mg/dL Urine Blood (Negative) Urine Nitrite (Negative) Urine Bilirubin (Negative) Urine Urobilinogen (Up TO 0.2) EU/dL Ur Leukocyte Esterase (Negative) Urine Glucose (Negative) mg/dL Range/Units 10/04/18 10:20 WBC (4.4-10.8) k/cumm RBC (4.00-5.20) m/cumm Hgb (12.0-15.5) g/dL Hct (36.0-46.0) % MCV (80-95) fL MCH (27.0-33.0) pg MCHC (32.0-36.0) g/dL RDW (11.7-14.6) % Plt Count (130-400) x1000/uL MPV (8.0-11.0) fL Immature Gran % Neutrophils % Lymphocytes % Monocytes % Eosinophils % Basophils % Absolute Neutrophils (1.2-6.7) k/cumm Absolute Lymphocytes (1.2-3.4) k/cumm Absolute Monocytes (0.11-0.7) k/cumm Absolute Eosinophils (0.0-0.7) k/cumm Absolute Basophils (0.0-0.2) k/cumm Sodium (136-145) mmol/L Potassium (3.5-5.1) mmol/L Chloride (98-107) mmol/L Carbon Dioxide (21.0-32.0) mmol/L Anion Gap (3-11) mmol/L BUN (7-18) mg/dL Creatinine (0.55-1.02) mg/dL Estimated GFR/1.73 m2 (mL/min/1.73m2) Glucose (70-100) mg/dL Lactate (0.6-1.4) mmol/L Calcium (8.5-10.1) mg/dL Total Bilirubin (0.2-1.0) mg/dL AST (15-37) U/L ALT (12-78) U/L Alkaline Phosphatase (46-116) U/L Total Protein (6.4-8.2) g/dL Albumin (3.4-5.0) g/dL Urine Color (Yellow) Yellow Urine Clarity (Clear) Clear Urine pH (5-8) 6.0 Ur Specific [place] (1.005-1.025) <= 1.005 Urine Protein (Negative) mg/dL Negative Urine Ketones (Negative) mg/dL Negative Urine Blood (Negative) Moderate H Urine Nitrite (Negative) Negative Urine Bilirubin (Negative) Negative Urine Urobilinogen (Up TO 0.2) EU/dL 0.2 Ur Leukocyte Esterase (Negative) Negative Urine Glucose (Negative) mg/dL Negative HPI General Mode of arrival: ambulatory. Date/Time Provider Initiated Documentation: 10/04/18 08:53. Limitations to Documentation: no limitations. Information obtained by: patient. HPI Narrative: Patient is a 38-year-old female who is 11 days status post incarcerated umbilical hernia repair who presents for abdominal pain since the surgery, worse since last night. She states the abdominal pain is intermittent, sharp and located above her bellybutton and in her lower abdomen. She states the pain is currently 10/10 she admits to multiple episodes of watery brown diarrhea last night. She admits to nausea but denies any vomiting. She states she cannot vomit due to her history of Molly fundoplication 2 years ago which was done due to chronic reflux. She was seen here in the ED 8 days ago for surgical site pain and was diagnosed with cellulitis and started on Augmentin. She states she took 4 days of Augmentin and stopped taking it 2 days ago due to GI upset. She states she did take 1 dose this morning. She denies any fever. She states she has been eating mainly clear liquids in addition to grilled cheese. She states she took Motrin 2 hours ago without relief. She has not eaten any food today yet. Related Data Home Medications Medication Instructions Recorded Confirmed cyclobenzaprine 10 mg PO BID 02/14/18 10/04/18 albuterol sulfate [Ventolin HFA] 2 puff INHALATION Q6H PRN 06/01/18 10/04/18 ibuprofen [IBU] 600 mg PO QID PRN #60 tab 09/24/18 10/04/18 bisacodyl [Bisa-Lax] 5 mg PO QHS PRN 14 Days #14 tab 09/26/18 10/04/18 polyethylene glycol 3350 [Miralax] 17 gm PO DAILY #119 gm 09/26/18 10/04/18 Previous Rx's Medication Instructions Recorded ibuprofen [IBU] 600 mg PO QID PRN #60 tab 09/24/18 bisacodyl [Bisa-Lax] 5 mg PO QHS PRN 14 Days #14 tab 09/26/18 polyethylene glycol 3350 [Miralax] 17 gm PO DAILY #119 gm 09/26/18 Allergies Allergy/AdvReac Type Severity Reaction Status Date / Time No Known Allergies Allergy Verified 10/04/18 08:52 General Stated Complaint: Abd Prob CLIFFORD: 3 Review of Systems Review of Systems All systems reviewed & are unremarkable except as noted in HPI and below Constitutional Reports as per HPI, Denies chills and Denies fever(s) Eyes Denies blurry vision ENT Denies dizziness, Denies sore throat and Denies throat swelling Cardiovascular Denies chest pain and Denies dyspnea Respiratory Denies cough and Denies dyspnea Gastrointestinal Reports abdominal pain, Denies diarrhea, Reports nausea and Denies vomiting Genitourinary Denies hematuria and Denies dysuria Musculoskeletal Denies back pain and Denies numbness Integumentary/Breasts Denies lesions and Denies rash Neurologic Denies dizziness, Denies focal weakness and Denies numbness Allergic/Immunologic Denies throat swelling [facility] Medical History (Updated 10/04/18 @ 11:33 by Esme Madera MD) Abdominal hernia (Acute) Abdominal pain (Chronic) Asthma (Chronic) Bilateral lower extremity edema (Acute) Calcium nephrolithiasis (Chronic) Chronic back pain (Chronic) Diarrhea due to drug (Acute) GERD (gastroesophageal reflux disease) (Chronic) Hematuria (Acute) Hiatal hernia (Chronic) Hypertension (Chronic) IBS (irritable bowel syndrome) (Chronic) Insomnia (Acute) Postoperative seroma (Acute) Prediabetes (Acute) Recurrent umbilical hernia with incarceration (Acute) Tobacco use (Chronic) Surgical History bone spur R foot. (Resolved) History of hernia repair (Chronic) Ligation of fallopian tube (Chronic) Status post Molly fundoplication (Acute) Tooth extraction (Resolved) Social History Smoking/Tobacco Use Status: Current every day Tobacco Type: cigarettes Alcohol Intake: never Drug use: Never Substance use type: does not use Do you feel safe at home: Yes Do you feel safe in your relationship?: Yes History History Para 0 Hx # Term Pregnancies Multiple births Hx # Pregnancies Ectopic pregnancies AB induced Hx Number of Living Children AB spontaneous Exam Const General: cooperative, healthy appearing and no acute distress HENMT Head: normal to inspection Face and sinus: normal facial exam Eyes General: appearance normal, both eyes and all related structures EOM: EOM intact bilaterally Neck Neck: normal visual inspection and No submandibular swelling Lymphatic: no lymphadenopathy noted Chest Chest: normal inspection of the chest and no tenderness Resp Effort & Inspection: normal respiratory effort and able to speak in complete sentences Auscultation: clear to auscultation bilaterally Cardio Rate: regular rate Rhythm: regular rhythm GI Inspection: normal to inspection and scar (superior to umbilicus, no drainage/erythema/induration/abscess) Palpation: soft, not firm, not rigid and tender (superior and inferior to umbilicus) Auscultation: hypoactive bowel sounds Skin General skin exam: no rashes or lesions noted Neuro General: alert, awake and oriented x3 Cognition: normal cognition Speech: speech normal Motor: muscle tone normal throughout Sensory Exam: no sensory deficits noted Extrem General: normal to inspection, full ROM, normal capillary refill, no calf tenderness bilaterally and no edema Psych Appearance: grossly normal Mental Status: mental status grossly normal Speech and Movement: speech and movement normal Affect: normal affect Course Vital Signs Temperature 97.9 F 10/04/18 08:48 Pulse 102 H 10/04/18 08:48 Respiratory Rate 18 10/04/18 08:48 Blood Pressure 136/93 H 10/04/18 08:48 Temperature 97.9 F 10/04/18 08:48 Temperature Source Skin 10/04/18 08:48 Pulse 102 H 10/04/18 08:48 Respiratory Rate 18 10/04/18 08:48 Blood Pressure 136/93 H 10/04/18 08:48 Oxygen Delivery Method Room Air 10/04/18 08:48 Oxygen Flow Rate 0 10/04/18 08:48 Pain Level 10 10/04/18 08:48
[2018-10-04 09:36] LABS: Abs Immature Grans 0.02 k/cumm (0.0-0.09); Absolute Eosinophil Count 0.14 k/cumm (0.0-0.7); Absolute Lymphocyte Count 1.41 k/cumm (1.2-3.4); Basophils % 0.3; Eosinophils % 1.2; HCT 32.7 % (36.0-46.0); HGB 10.1 g/dL (12.0-15.5); Immature Grans % 0.2; Lymphocytes % 11.9; Mean Corp. HGB Concentration 30.9 g/dL (32.0-36.0); Mean Corpuscular Volume 71.1 fL (80-95); Mean Platelet Volume 10.1 fL (8.0-11.0); Monocytes % 7.6; Neutrophils % 78.8; Platelet Count 495 x1000/uL (130-400); RBC Distribution Width 18.8 % (11.7-14.6); White Blood Cell Count 11.85 k/cumm (4.4-10.8)
[2018-10-04 09:38] LABS: Absolute Basophil Count 0.04 k/cumm (0.0-0.2); Absolute Neutrophil Count 9.34 k/cumm (1.2-6.7)
[2018-10-04] MEDS: Ondansetron 4 MG/2 ML VIAL IVP (09:40)
[2018-10-04] MEDS: Normal Saline 1,000 ML 1000 ML IV (09:44)
[2018-10-04] MEDS: Normal Saline Flush 10 ML SYR IVP ×2 (09:50→11:01)
[2018-10-04 09:53] LABS: ALT 17 U/L (12-78); AST 7 U/L (15-37); Albumin 3.3 g/dL (3.4-5.0); Alkaline Phosphatase 83 U/L (46-116); Anion Gap 12.7 mmol/L (3-11); BUN 13 mg/dL (7-18); Bilirubin, Total 0.2 mg/dL (0.2-1.0); CO2 23.3 mmol/L (21.0-32.0); CREATININE 0.75 mg/dL (0.55-1.02); Calcium 8.4 mg/dL (8.5-10.1); Chloride 111 mmol/L (98-107); Glucose 126 mg/dL (70-100); Potassium 3.7 mmol/L (3.5-5.1); Sodium 147 mmol/L (136-145); Total Protein 6.9 g/dL (6.4-8.2)
[2018-10-04] MEDS: Omnipaque 350 MG/ML 100 ML BTL IJ (10:10)
--- NOTE | 2018-10-04 10:27 | DI.CT_ITS ---
SYMPTOM/DIAGNOSIS: PERIUMBILICAL ABD PAIN, S/P HERNIA REPAIR, ? SEROMA OR ABSCESS ABDOMEN AND PELVIC CT: CT examination of the abdomen and pelvis was performed with a bolus infusion of 100 cc's of Omnipaque 350. The examination is compared with most recent previous CT of 09/23/18. Patient had hernia repair reportedly on 09/23/18. On today's examination, the previously noted umbilical hernia has been repaired. There is a fluid collection at the surgical site which on transaxial images measures about 5 by 2.5 cm. in diameter. This contains fluid and a small quantity of gas. The findings are nonspecific, the findings may represent post surgical hematoma or serosa with unresorbed gas postoperatively. The possibility of infectious process not excluded on the basis of this examination. No intraperitoneal abnormality is seen, no bowel pathology. No recurrent hernia. Liver, spleen, pancreas, gallbladder and bile ducts appear normal. Bilateral renal cysts noted. Adrenals are unremarkable. Abdominal aorta and major vascular structures appear intact. CONCLUSION: Fluid and gas collection at the surgical site in the subcutaneous tissues as described above. No evidence of intraperitoneal abnormality or bowel pathology.
[2018-10-04 10:46] LABS: Bilirubin Negative (Negative); Blood Moderate (Negative); Clarity Clear (Clear); Glucose Negative (Negative); Ketones Negative (Negative); Leukocyte Esterase Negative (Negative); Nitrite Negative (Negative); Specific Gravity <= 1.005 (1.005-1.025); Urobilinogen 0.2 EU/dL (Up TO 0.2)
[2018-10-04] MEDS: Ketorolac 30 MG/ML VIAL IVP (10:56)
[2018-10-04 11:02] LABS: Bacteria Rare HPF (Negative); C & S Indicated? No; Casts Negative LPF (Negative); Crystals Negative HPF (Negative); Epithelial Cells Moderate HPF (Negative); Mucus Trace (Negative); WBC 0-2 HPF (0-5)
[2018-10-04 11:13] VITALS: BP 147/71; PULSE 96; RESP 18; TEMP 36.7; O2SAT 98
--- NOTE | 2018-10-04 11:22 | SCONE_ITS ---
Date of service: 10/04/18 Time of Service: 11:22 Assessment and Plan (1) Postoperative seroma: Current visit: Yes A\\ Post-operative Seroma Incision is c/d/i without cellulitis P\\ I will send the fluid for culture. If it grows anything then will place patient back on antibiotics Ibuprofen and Tylenol for pain Heat and ice alternating for pain Follow up next week with someone in our office Qualifiers: Surgical complication system/body Area: subcutaneous tissue Procedure type: non-dermatologic Qualified Code(s): L76.34 - Postprocedural seroma of skin and subcutaneous tissue following other procedure (2) Diarrhea due to drug: Current visit: Yes A\\ Diarrhea most likely due to antibiotics P\\ Encourage yogurt Keep well hydrated History of Present Illness Chief Complaint: Abdominal pain Narrative: Mrs. Sprague is a 38-year-old female who underwent recurrent umbilical hernia repair with mesh on September [address] Bowie. 3 days later she went to the emergency department with increasing abdominal pain. At that time some cellulitis was noted and Dr. Bowie placed her on Augmentin. The patient only took the Augmentin for 4 days and then stopped it because she was having an upset stomach. She unfortunately never called our office to let us know that she could not finish her antibiotic course due to abdominal pain and diarrhea. She comes back to the emergency department today with diarrhea and stabbing abdominal pain. Her incision looks good. Work-up in the emergency department showed slightly elevated white count although she other labs look like she might be a little dehydrated. CT scan showed a fluid collection with some air in it. There is a question of abscess. I was called regarding the CT scan findings. The ER physician was not really concerned for infection as her incision looked clean dry and intact. I told him I would come and see the patient and assess her.. Consults Consult date: 10/04/18 Requesting physician: Ekaterina Seaman Review of Systems Constitutional Denies chills, Denies fever(s) and Denies night sweats Eyes Denies change in vision Cardiovascular Denies chest pain and Denies dyspnea Respiratory Denies cough and Denies dyspnea Gastrointestinal Reports as per HPI Genitourinary Reports system reviewed and no additional complaints, except as docu [facility] Medical History Abdominal hernia (Acute) Abdominal pain (Chronic) Asthma (Chronic) Bilateral lower extremity edema (Acute) Calcium nephrolithiasis (Chronic) Chronic back pain (Chronic) GERD (gastroesophageal reflux disease) (Chronic) Hematuria (Acute) Hiatal hernia (Chronic) Hypertension (Chronic) IBS (irritable bowel syndrome) (Chronic) Insomnia (Acute) Prediabetes (Acute) Recurrent umbilical hernia with incarceration (Acute) Tobacco use (Chronic) Surgical History bone spur R foot. (Resolved) History of hernia repair (Chronic) Ligation of fallopian tube (Chronic) Status post Molly fundoplication (Acute) Tooth extraction (Resolved) Social History Smoking/Tobacco Use Status: Current every day Tobacco Type: cigarettes Alcohol Intake: never Drug use: Never Substance use type: does not use Do you feel safe at home: Yes Do you feel safe in your relationship?: Yes History History Para 0 Hx # Term Pregnancies Multiple births Hx # Pregnancies Ectopic pregnancies AB induced Hx Number of Living Children AB spontaneous Exam Const General: cooperative, comfortable and no acute distress Orientation: alert and oriented x3 HENMT Head: normocephalic and atraumatic Resp Effort & Inspection: normal respiratory effort Auscultation: clear to auscultation bilaterally Cardio Rate: regular rate Rhythm: regular rhythm GI Inspection: normal to inspection and incision (c/d/i. No erythema is noted) Palpation: soft, no hepatosplenomegaly and nontender Auscultation: normal bowel sounds Results Last Vital Signs Temp 98.1 F 10/04/18 11:13 Pulse 96 H 10/04/18 11:13 Resp 18 10/04/18 11:13 BP 147/71 H 10/04/18 11:13 Pulse Ox 98 10/04/18 11:13 Labs : 10/04/18 09:30 10/04/18 09:30 Laboratory Results - last 24 hr 10/04/18 10/04/18 10/04/18 09:30 09:30 09:30 WBC 11.85 H RBC 4.60 Hgb 10.1 L Hct 32.7 L MCV 71.1 L MCH 22.0 L MCHC 30.9 L RDW 18.8 H Plt Count 495 H MPV 10.1 Immature Gran % 0.2 Neutrophils % 78.8 Lymphocytes % 11.9 Monocytes % 7.6 Eosinophils % 1.2 Basophils % 0.3 Absolute Neutrophils 9.34 H Absolute Lymphocytes 1.41 Absolute Monocytes 0.90 H Absolute Eosinophils 0.14 Absolute Basophils 0.04 Sodium 147 H Potassium 3.7 Chloride 111 H Carbon Dioxide 23.3 Anion Gap 12.7 H BUN 13 Creatinine 0.75 Estimated GFR/1.73 m2 >= 60.00 Glucose 126 H Lactate 1.0 Calcium 8.4 L Total Bilirubin 0.2 AST 7 L ALT 17 Alkaline Phosphatase 83 Total Protein 6.9 Albumin 3.3 L Urine Color Urine Clarity Urine pH Ur Specific [place] Urine Protein Urine Ketones Urine Blood Urine Nitrite Urine Bilirubin Urine Urobilinogen Ur Leukocyte Esterase Urine RBC Urine WBC Ur Epithelial Cells Urine Crystals Urine Bacteria Urine Casts Urine Mucus Ur Culture Indicated? Urine Glucose 10/04/18 10:20 WBC RBC Hgb Hct MCV MCH MCHC RDW Plt Count MPV Immature Gran % Neutrophils % Lymphocytes % Monocytes % Eosinophils % Basophils % Absolute Neutrophils Absolute Lymphocytes Absolute Monocytes Absolute Eosinophils Absolute Basophils Sodium Potassium Chloride Carbon Dioxide Anion Gap BUN Creatinine Estimated GFR/1.73 m2 Glucose Lactate Calcium Total Bilirubin AST ALT Alkaline Phosphatase Total Protein Albumin Urine Color Yellow Urine Clarity Clear Urine pH 6.0 Ur Specific [place] <= 1.005 Urine Protein Negative Urine Ketones Negative Urine Blood Moderate H Urine Nitrite Negative Urine Bilirubin Negative Urine Urobilinogen 0.2 Ur Leukocyte Esterase Negative Urine RBC 5-10 H Urine WBC 0-2 Ur Epithelial Cells Moderate Urine Crystals Negative Urine Bacteria Rare Urine Casts Negative Urine Mucus Trace Ur Culture Indicated? No Urine Glucose Negative Procedures Other Procedure Description/Findings: Pre-op Dx: Post-surgical fluid collection, ? abscess Post-op Dx: post-operative wound seroma Surgeon: Jeffery Madera MD Anesthesia: 2% Lidocaine with epinephrine 5 cc Blood loss: 0 Specimen: fluid for culture Complications: no immediate complications Procedure: After informed consent was obtained the patient was placed in a supine position. The skin was cleaned with chlorhexidine around the incision and infiltrated with the above local anesthetic. An 18-gauge needle was then placed through the anesthetized skin into the fluid pocket. 20 cc of serosanguineous fluid was removed without complication. The fluid was not cloudy at all and did not look infected. The needle was removed and a Band-Aid was placed. The fluid was sent for culture. The patient tolerated the procedure well and there were no immediate complications.
== END 2018-10-04 11:38 | disposition home or self-care (01) ==
PROVIDERS: Emergency Provider Physician Assistant; PCP Family Medicine
DX: R10.33 Periumbilical pain (principal); G89.18 Other acute postprocedural pain; R11.0 Nausea; R19.7 Diarrhea, unspecified; T36.0X5A Adverse effect of penicillins, initial encounter; L76.34 Postprocedural seroma of skin and subcutaneous tissue following other procedure; Y83.8 Other surgical procedures as the cause of abnormal reaction of the patient, or of later complication, without mention of misadventure at the time of the procedure; I10 Essential (primary) hypertension
CPT/HCPCS: 10160; 36415; 80053; 81025; 96361; 96374; 96375; 99252; 99285; 74177; 81003; 81015; 83605; 85025; 87070; 87205; J1885; J2405; J3490

== ENCOUNTER → 2018-10-18 10:29 | Outpatient (BNVA) | payer MEDICARE, MEDICAID, SELFPAY | PROVIDERS: PCP Family Medicine; Referring Provider Family Medicine; Visit Provider Surgery | DX: Z48.815 Encounter for surgical aftercare following surgery on the digestive system (principal); R10.9 Unspecified abdominal pain; M79.2 Neuralgia and neuritis, unspecified ==

== ENCOUNTER 2018-11-14 16:26 | Emergency (ER) | payer MEDICARE, MEDICAID, SELFPAY ==
[2018-11-14 16:28] VITALS: BP 160/90; PULSE 96; RESP 16; TEMP 36.6; O2SAT 100
--- NOTE | 2018-11-14 16:52 | W.ED.GENAD ---
Discharge Plan Disposition Patient Disposition: HOME Condition: Stable Discharge Details Chief Complaint: Abd Prob Clinical Impression: Abdominal pain, Abdominal hernia Primary Care Provider: Talisha Treviño ED Provider: Ekaterina Seaman Home Meds and New Rx's Prescriptions: Continued bisacodyl 5 mg tablet 5 mg PO ONCE RF: 0 gabapentin 100 mg capsule 100 mg PO QHS Qty: 60 RF: 2 lidocaine 5 % adhesive patch,medicated 3 patch TP DAILY Qty: 30 RF: 0 bisacodyl 5 mg tablet 5 mg PO BID Qty: 60 RF: 12 cyclobenzaprine 10 mg Tablet 10 mg PO BID RF: 0 albuterol sulfate [Ventolin HFA] 90 mcg/actuation Hfa Aerosol Inhaler 2 puff Inhalation Q6H PRNRF: 0 ibuprofen [IBU] 600 mg tablet 600 mg PO QID PRN (Reason: pain) Qty: 60 RF: 4 Discharge Instructions Instructions: Abdominal Pain (ED), Ventral Hernia (ED) Additional Instructions: Apply ice to the affected area several times daily for 20 minutes at a time. Take ibuprofen 600 mg every 6 hours while pain present. Limit heavy lifting more than 20 pounds while symptoms still present and until follow-up with surgery for further recommendations. Call surgery Dr. Helms's office tomorrow morning to schedule follow-up appointment for reevaluation. Return immediately to the emergency department if you develop any worsening or new concerning symptoms such as fever, increased pain, redness, swelling, vomiting or constipation. Referrals: Katja Helms DO [OSTEOPATHIC DOCTOR] - Discharge Data Discharge Date/Time-TO BE ENTERED AT DEPARTURE: 11/14/18 17:16 Discharge Physician: Ekaterina Seaman Medical Decision Making 1630 -- 38yo F who is 7 weeks status post umbilical hernia repair with Dr. Helms presents with right sided abdominal pain after lifting a heavy object a few days ago with concern for another hernia. She denies any fever. She appears nontoxic. There is a palpable 1 cm defect to the right and just superior to the umbilicus but no bowel palpable, and no overlying signs of cellulitis. Patient looks well with normal vitals - likely would recommend Tylenol, Motrin, ice, and follow-up with surgery for reevaluation. I do not see an indication for labs or imaging at this time. H/o tubal ligation. [id number] -- Case d/w Dr. Madera who recommends that pt avoid heavy lifting, take ibuprofen as needed for pain and call Dr. Helms tomorrow to schedule follow-up appointment for reevaluation. Patient feels good with plan at this time. She is advised to call Dr. Helms's office tomorrow morning and to return to the ER immediately if she develops any worsening pain, fever, vomiting or constipation. Medical Records Medical records reviewed: Yes I reviewed the patient's medical records. HPI General Mode of arrival: ambulatory. Date/Time Provider Initiated Documentation: 11/14/18 16:39. Limitations to Documentation: no limitations. Information obtained by: patient. HPI Narrative: Patient is a 38-year-old female with a history of GERD, IBS, hypertension, prediabetes who was also 7 weeks status post umbilical hernia repair with Dr. Helms who presents with concern for another hernia after heavy lifting a few days ago. Patient states she was helped lifting a bed for her mom's boyfriend when she felt a sudden onset of right upper abdominal pain. She states since then she has had continual abdominal pain. She denies fever, nausea, vomiting, urinary symptoms or change in bowel movements. Last bowel movement today and normal. She has been taking ibuprofen without relief. Related Data Home Medications Medication Instructions Recorded Confirmed cyclobenzaprine 10 mg PO BID 02/14/18 11/14/18 albuterol sulfate [Ventolin HFA] 2 puff INHALATION Q6H PRN 06/01/18 11/14/18 ibuprofen [IBU] 600 mg PO QID PRN #60 tab 09/24/18 11/14/18 bisacodyl 5 mg tablet 5 mg PO ONCE 10/18/18 11/14/18 gabapentin 100 mg capsule 100 mg PO QHS #60 cap 10/18/18 11/14/18 lidocaine 5 % topical patch 3 patch TP DAILY #30 each 10/18/18 11/14/18 bisacodyl 5 mg tablet 5 mg PO BID #60 tab 10/27/18 11/14/18 Previous Rx's Medication Instructions Recorded ibuprofen [IBU] 600 mg PO QID PRN #60 tab 09/24/18 gabapentin 100 mg capsule 100 mg PO QHS #60 cap 10/18/18 lidocaine 5 % topical patch 3 patch TP DAILY #30 each 10/18/18 bisacodyl 5 mg tablet 5 mg PO BID #60 tab 10/27/18 Allergies Allergy/AdvReac Type Severity Reaction Status Date / Time No Known Allergies Allergy Verified 11/14/18 19:41 General Stated Complaint: Abd Prob CLIFFORD: 3 Review of Systems Review of Systems ROS Unobtainable: All systems reviewed & are unremarkable except as noted in HPI and below Constitutional Constitutional: Reports as per HPI, Denies chills and Denies fever(s) Eyes Eyes: Denies blurry vision ENT Ears, Nose, Mouth, and Throat: Denies dizziness, Denies sore throat and Denies throat swelling Cardiovascular Cardiovascular: Denies chest pain and Denies dyspnea Respiratory Respiratory: Denies cough and Denies dyspnea Gastrointestinal Gastrointestinal: Reports abdominal pain, Denies diarrhea and Denies vomiting Genitourinary Genitourinary: Denies hematuria and Denies dysuria Musculoskeletal Musculoskeletal: Denies back pain and Denies numbness Integumentary/Breasts Skin/Breast: Denies lesions and Denies rash Neurologic Neurologic: Denies dizziness, Denies focal weakness and Denies numbness Allergic/Immunologic Allergic/Immunologic: Denies throat swelling [facility] Medical History Abdominal hernia (Acute) just above umbilicus Abdominal pain (Chronic) chronic RLQ pain that did not improve with ureteroscopy. LUQ pain. W/U at [facility]. Pt thinks that she has hiatal hernia. No evidence on imaging studies. Asthma (Chronic) stable. no exacerbations for 1 yr. 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 Chronic back pain (Chronic) Diarrhea due to drug (Acute) GERD (gastroesophageal reflux disease) (Chronic) Hematuria (Acute) Hiatal hernia (Chronic) Hypertension (Chronic) IBS (irritable bowel syndrome) (Chronic) Insomnia (Acute) Postoperative seroma (Acute) Prediabetes (Acute) Recurrent umbilical hernia with incarceration (Acute) Tobacco use (Chronic) Surgical History bone spur R foot. (Resolved) History of hernia repair (Chronic) Ligation of fallopian tube (Chronic) Status post Molly fundoplication (Acute) Tooth extraction (Resolved) Social History Smoking/Tobacco Use Status: Current every day Tobacco Type: cigarettes Alcohol Intake: never Drug use: Never Substance use type: does not use Do you feel safe at home: Yes Do you feel safe in your relationship?: Yes History History Para 0 Hx # Term Pregnancies Multiple births Hx # Pregnancies Ectopic pregnancies AB induced Hx Number of Living Children AB spontaneous Exam Const General: cooperative, healthy appearing and no acute distress HENMT Head: normal to inspection Face and sinus: normal facial exam Eyes General: appearance normal, both eyes and all related structures Pupils: PERRL EOM: EOM intact bilaterally Neck Neck: normal visual inspection and No submandibular swelling Lymphatic: no lymphadenopathy noted Chest Chest: normal inspection of the chest and no tenderness Resp Effort & Inspection: normal respiratory effort and able to speak in complete sentences Auscultation: clear to auscultation bilaterally Cardio Rate: regular rate Rhythm: regular rhythm GI Inspection: normal to inspection Palpation: soft, not firm, not rigid and nontender Auscultation: normal bowel sounds Abdomen image: 1. There is a palpable 1 cm defect with tenderness to palpation just superior and to the right of the umbilicus. There is no bowel present. There is no surrounding erythema, edema, induration or fluctuance. 2. Well-healing incisional umbilical hernia repair wound without erythema, edema, fluctuance, drainage or induration. Skin General skin exam: no rashes or lesions noted Neuro General: alert, awake and oriented x3 Cognition: normal cognition Speech: speech normal Motor: muscle tone normal throughout Sensory Exam: no sensory deficits noted Extrem General: normal to inspection, full ROM, normal capillary refill, no calf tenderness bilaterally and no edema Psych Appearance: grossly normal Mental Status: mental status grossly normal Speech and Movement: speech and movement normal Affect: normal affect Course Vital Signs Vital signs: Vital Signs Temperature 97.9 F 11/14/18 16:28 Pulse 96 H 11/14/18 16:28 Respiratory Rate 16 11/14/18 16:28 Blood Pressure 160/90 H 11/14/18 16:28 Pulse Oximetry 100 11/14/18 16:28 Temperature 97.9 F 11/14/18 16:28 Pulse 96 H 11/14/18 16:28 Respiratory Rate 16 11/14/18 16:28 Respiratory Effort Non-Labored 11/14/18 16:31 Blood Pressure 160/90 H 11/14/18 16:28 Blood Pressure Position Sitting 11/14/18 16:28 Pulse Oximetry 100 11/14/18 16:28 Oxygen Delivery Method Room Air 11/14/18 16:28 Oxygen Flow Rate 0 11/14/18 16:28
[2018-11-14 17:17] VITALS: BP 155/84; PULSE 89; RESP 16; O2SAT 99
== END 2018-11-14 17:16 | disposition home or self-care (01) ==
LOC: ER 17:06
PROVIDERS: Emergency Provider Physician Assistant; PCP Family Medicine
DX: R10.9 Unspecified abdominal pain (principal); K46.9 Unspecified abdominal hernia without obstruction or gangrene; Z98.890 Other specified postprocedural states
CPT/HCPCS: 99283

== ENCOUNTER 2018-11-14 19:32 | Emergency (ER) | payer MEDICARE, MEDICAID, SELFPAY ==
--- NOTE | 2018-11-14 19:38 | ED.GENADUL_ITS ---
Discharge Plan Disposition Patient Disposition: HOME Condition: Good Discharge Details Chief Complaint: Abd Prob Clinical Impression: Constipation, Abdominal pain Primary Care Provider: Talisha Treviño ED Provider: Ambreen Robins Home Meds and New Rx's Prescriptions: Continued bisacodyl 5 mg tablet 5 mg PO ONCE RF: 0 gabapentin 100 mg capsule 100 mg PO QHS Qty: 60 RF: 2 lidocaine 5 % adhesive patch,medicated 3 patch TP DAILY Qty: 30 RF: 0 bisacodyl 5 mg tablet 5 mg PO BID Qty: 60 RF: 12 cyclobenzaprine 10 mg Tablet 10 mg PO BID RF: 0 albuterol sulfate [Ventolin HFA] 90 mcg/actuation Hfa Aerosol Inhaler 2 puff Inhalation Q6H PRNRF: 0 ibuprofen [IBU] 600 mg tablet 600 mg PO QID PRN (Reason: pain) Qty: 60 RF: 4 Discharge Instructions Instructions: Constipation (ED), Abdominal Pain (ED) Additional Instructions: Encourage hydration. Please continue with Tylenol and ibuprofen as needed for discomfort. Please call general surgery tomorrow to schedule follow-up appointment. If you develop new or worsening symptoms seek care urgently once again. Your labs and your CT scan were reassuring today. They did note that you have some constipation. You may use [id number] laxatives or stool softeners if needed. Referrals: Talisha Treviño [Primary Care Provider] - Discharge Data Discharge Date/Time-TO BE ENTERED AT DEPARTURE: 11/14/18 22:03 Medical Decision Making Patient is a 38-year-old female presenting with chief complaint of abdominal pain. She was seen here a few hours ago and diagnosed with a 1 cm abdominal wall defect consistent with a hernia. She did have a supraumbilical hernia repair on September 23, 2017. Had been healing well until she overexerted herself recently when trying to make a bed. Patient reports after going home from the emergency department this afternoon, her pain greatly increased. States that th is got much worse after going up a flight of stairs into her apartment. She denies any nausea vomiting. Is not had any fevers or chills. Pain does not radiate. On exam, she is resting comfortably. She is known to be slightly tachycardic at 109. She does have a palpable area of swelling over the supraumbilical region consistent with hernia surgery. This may be swelling/post surgical changes or new hernia. Not appreciate any erythema or warmth. She does not have peritoneal findings. However, given the patient's level of pain and area of swelling, I am concerned for possible incarcerated hernia. Is unusual from the size of the defect. However, will obtain CT and labs. Discussed this plan with the patient who is in agreement. Labs reviewed. No leukocytosis. Patient is anemic but this is baseline for the patient. No electrolyte abnormalities. Glucose is elevated at 148. Atypical this is not for the patient. FINDINGS: Lungs: Dependent atelectasis. Liver: Normal. No mass. Gallbladder and bile ducts: Normal. No calcified stones. No ductal dilation. Pancreas: Normal. No ductal dilation. Spleen: Normal. No splenomegaly. Adrenals: Normal. No mass. Kidneys and ureters: Stable renal cysts. Stomach and bowel: Stable large retrocardiac hernia versus postsurgical changes from fundoplication similar to prior study 10/04/2018. Constipation. Food-filled stomach. Appendix: No evidence of appendicitis. Intraperitoneal space: Unremarkable. No free air. No significant fluid collection. Vasculature: Mild atherosclerotic disease. Lymph nodes: Unremarkable. No enlarged lymph nodes. Bladder: Unremarkable as visualized. Reproductive: Unremarkable as visualized. Bones/joints: Unremarkable. No acute fracture. Soft tissues: Periumbilical fat infiltration consistent with recent surgery. Interval decrease in the subcutaneous fluid around the umbilicus compared with the prior study. IMPRESSION: 1. Interval decrease in the subcutaneous fluid around the postsurgical changes of the umbilicus. 2. Stable retrocardiac hernia. 3. Constipation. Discussed these findings with the patient. Advised that there is no acute surgical intervention at this time. I advised that she still may have a small hernia that is not visible on the CT scan and that she should follow-up with her primary care or surgeon. She is given strict return precautions. She appears calm and in no acute distress. Is able to ambulate out of the department without assistance. She will call her surgeon tomorrow to schedule follow-up appointment. All of her questions and concerns were addressed and she is in agreement this plan. HPI General Mode of arrival: ambulatory . Date/Time Provider Initiated Documentation: 11/14/18 19:37 . Limitations to Documentation: no limitations . Information obtained by: patient and RN notes reviewed . History of Present Illness 38 year old F presents to the emergency department with the chief complaint of central abdominal pain, described as severe, with intensity rated at 10. Quality is described as stabbing, and is localized to the abdomen. Patient reports no radiation. Patient started experiencing this hour(s) and it has been constant. No relieving factors improve symptom(s), No exacerbating factors reported . Patient notes loss of appetite; denies chest pain, diaphoresis, fever/chills, headaches, nausea/vomiting and shortness of breath. Patient did receive the following treatments prior to arrival, none Related Data Home Medications Medication Instructions Recorded Confirmed cyclobenzaprine 10 mg PO BID 02/14/18 11/14/18 albuterol sulfate [Ventolin HFA] 2 puff INHALATION Q6H PRN 06/01/18 11/14/18 ibuprofen [IBU] 600 mg PO QID PRN #60 tab 09/24/18 11/14/18 bisacodyl 5 mg tablet 5 mg PO ONCE 10/18/18 11/14/18 gabapentin 100 mg capsule 100 mg PO QHS #60 cap 10/18/18 11/14/18 lidocaine 5 % topical patch 3 patch TP DAILY #30 each 10/18/18 11/14/18 bisacodyl 5 mg tablet 5 mg PO BID #60 tab 10/27/18 11/14/18 Previous Rx's Medication Instructions Recorded ibuprofen [IBU] 600 mg PO QID PRN #60 tab 09/24/18 gabapentin 100 mg capsule 100 mg PO QHS #60 cap 10/18/18 lidocaine 5 % topical patch 3 patch TP DAILY #30 each 10/18/18 bisacodyl 5 mg tablet 5 mg PO BID #60 tab 10/27/18 Allergies Allergy/AdvReac Type Severity Reaction Status Date / Time No Known Allergies Allergy Verified 11/14/18 19:41 General CLIFFORD: 3 Review of Systems Constitutional Constitutional: Reports as per HPI, Denies chills, Denies fatigue, Denies fever(s) and Denies headache(s) ENT Ears, Nose, Mouth, and Throat: Denies headache(s) Cardiovascular Cardiovascular: Reports as per HPI, Denies chest pain and Denies dyspnea Respiratory Respiratory: Reports as per HPI, Denies cough and Denies dyspnea Gastrointestinal Gastrointestinal: Reports as per HPI Musculoskeletal Musculoskeletal: Reports as per HPI and Denies back pain Integumentary/Breasts Skin/Breast: Reports as per HPI and Denies rash Neurologic Neurologic: Reports as per HPI and Denies headache(s) Endocrine Endocrine: Denies fatigue [facility] Medical History Abdominal hernia (Acute) just above umbilicus Abdominal pain (Chronic) chronic RLQ pain that did not improve with ureteroscopy. LUQ pain. W/U at [facility]. Pt thinks that she has hiatal hernia. No evidence on imaging studies. Asthma (Chronic) stable. no exacerbations for 1 yr. 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 Chronic back pain (Chronic) Diarrhea due to drug (Acute) GERD (gastroesophageal reflux disease) (Chronic) Hematuria (Acute) Hiatal hernia (Chronic) Hypertension (Chronic) IBS (irritable bowel syndrome) (Chronic) Insomnia (Acute) Postoperative seroma (Acute) Prediabetes (Acute) Recurrent umbilical hernia with incarceration (Acute) Tobacco use (Chronic) Surgical History bone spur R foot. (Resolved) History of hernia repair (Chronic) Ligation of fallopian tube (Chronic) Status post Molly fundoplication (Acute) Tooth extraction (Resolved) Social History Smoking/Tobacco Use Status: Current every day Tobacco Type: cigarettes Alcohol Intake: never Drug use: Never Substance use type: does not use Do you feel safe at home: Yes Do you feel safe in your relationship?: Yes History History Para 0 Hx # Term Pregnancies Multiple births Hx # Pregnancies Ectopic pregnancies AB induced Hx Number of Living Children AB spontaneous Exam Const General: cooperative, healthy appearing, comfortable, no acute distress and well developed Nutritional Appearance: average body habitus and well nourished Orientation: alert and awake HENMT Head: normal to inspection Mouth: moist mucous membranes Resp Effort & Inspection: normal respiratory effort, able to speak in complete sentences and no respiratory distress Auscultation: clear to auscultation bilaterally, no rales, no rhonchi and no wheezes Cardio Rate: regular rate Rhythm: regular rhythm Heart Sounds: S1 normal and S2 normal GI Inspection: no edema, non-distended, incision (supraumbilical, well healed incision), no visible herniation and no visible pulsation Palpation: no hepatosplenomegaly, no aortic enlargement, no guarding and hernia (patient has a palpable area of firmness and tenderness superior to incision) Percussion: normal to percussion Auscultation: normal bowel sounds Back/Spine/Pelvis Back: no CVA tenderness Skin General skin exam: no rashes or lesions noted Trauma: no lacerations or abrasions Neuro General: alert and awake Cognition: normal cognition Speech: speech normal Gait: normal gait Psych Appearance: grossly normal and well kempt Mental Status: mental status grossly normal Speech and Movement: speech and movement normal
--- NOTE | 2018-11-14 19:38 | NUR.NOTE ---
Nursing Note: pt was seen here several HRs ago and was diagnosed with a hernia and told to come back t ER if pain worsened and to follow up with surgery in the morning. pt is here because pain dos santos increased from a 9 to a 10 pain is on RUQ
[2018-11-14 19:39] VITALS: BP 142/79; RESP 109; TEMP 37.1; O2SAT 98
[2018-11-14 20:18] LABS: Abs Immature Grans 0.02 k/cumm (0.0-0.09); Absolute Basophil Count 0.05 k/cumm (0.0-0.2); Absolute Eosinophil Count 0.11 k/cumm (0.0-0.7); Absolute Lymphocyte Count 2.03 k/cumm (1.2-3.4); Absolute Monocyte Count 0.81 k/cumm (0.11-0.7); Absolute Neutrophil Count 4.44 k/cumm (1.2-6.7); Basophils % 0.7; Eosinophils % 1.5; HCT 33.2 % (36.0-46.0); HGB 10.4 g/dL (12.0-15.5); Immature Grans % 0.3; Lymphocytes % 27.2; Mean Corp. HGB Concentration 31.3 g/dL (32.0-36.0); Mean Corpuscular Hemoglobin 21.8 pg (27.0-33.0); Mean Corpuscular Volume 69.5 fL (80-95); Mean Platelet Volume 10.2 fL (8.0-11.0); Monocytes % 10.9; Neutrophils % 59.4; Platelet Count 417 x1000/uL (130-400); RBC 4.78 m/cumm (4.00-5.20); RBC Distribution Width 18.1 % (11.7-14.6); White Blood Cell Count 7.46 k/cumm (4.4-10.8)
[2018-11-14] MEDS: MORPHine 10 MG/ML VIAL 2 MG IVP (20:19)
[2018-11-14] MEDS: Normal Saline 1,000 ML 1000 ML IV (20:20)
[2018-11-14] MEDS: Omnipaque 350 MG/ML 100 ML BTL IJ (20:22)
[2018-11-14 20:29] LABS: ALT 19 U/L (14-59); AST 10 U/L (15-37); Albumin 3.7 g/dL (3.4-5.0); Alkaline Phosphatase 94 U/L (46-116); Anion Gap 9.7 mmol/L (3-11); BUN 13 mg/dL (7-18); Bilirubin, Total 0.2 mg/dL (0.2-1.0); CO2 23.3 mmol/L (21.0-32.0); CREATININE 0.92 mg/dL (0.55-1.02); Calcium 8.7 mg/dL (8.5-10.1); Chloride 107 mmol/L (98-107); Glucose 148 mg/dL (70-100); Potassium 3.7 mmol/L (3.5-5.1); Sodium 140 mmol/L (136-145); Total Protein 7.3 g/dL (6.4-8.2)
--- NOTE | 2018-11-14 20:35 | DI.CT_ITS ---
EXAM: CT ABDOMEN PELVIS W CLINICAL HISTORY: umbilical hernia, ?incarceration. TECHNIQUE: Imaging Protocol: Axial computed tomography images with coronal and sagittal reformatted images were created and reviewed CONTRAST MATERIAL: Intravenous: Omnipaque 350 Contrast volume:91 mL contrast route:IV - Oral: No COMPARISON: CT ABDOMEN PELVIS W from 10/04/2018 FINDINGS: ABDOMEN: Lung Bases: Mild dependent atelectasis. Liver: Normal density. The portal, superior mesenteric, and splenic veins are patent. No mass is alexandra ntified. Gallbladder and biliary tract: No radiodense calculus or dilation. Pancreas: Normal density, no abnormal calcifications or inflammatory process. Spleen: Normal. Kidneys: Normal size, contour and axis. No radiodense stones or obstructive uropathy. There are stabl e bilateral renal cysts. Adrenal glands: No masses seen. Abdominal Aorta: Abdominal portion non-dilated. PELVIS: Bladder: Symmetric distention, no gross wall thickening. Bowel: No obstruction or bowel wall thickening. Findings at the gastroesophageal junction may reflect prior fundoplication versus stable hiatal hernia. There is a large amount of stool in the colon. T his may reflect constipation. Peritoneal cavity: No ascites, collection or mesenteric inflammatory response. Bones: Within normal limits. Reproductive organs: Within normal limits. Lymph nodes: Unremarkable. Other: There has been interval decrease in size of the subcutaneous fluid collection in the periumbil ical region. There is infiltration in the soft tissues in the periumbilical region which may reflect recent surgery. Impression: Interval decrease in size of the subcutaneous periumbilical fluid collection. DATA REPOSITORY: All CT scans at this facility are submitted to the National Radiology Data Registry (NRDR) Dose Index Registry (DIR) with the [employer] (A[employer]). RADIATION OPTIMIZATION: All CT scans at this facility use at least one of these dose optimization te chniques: automated exposure control; mA and/or kV adjustment per patient size (includes targeted exa ms where dose is matched to clinical indication); or iterative reconstruction.
[2018-11-14 20:41] LABS: Anisocytosis 2+; Basophilic Stippling Present; Microcytosis 2+
--- NOTE | 2018-11-14 21:24 | DI.VRAD_ITS ---
PROCEDURE INFORMATION: Exam: CT Abdomen and pelvis with contrast Exam date and time: 11/14/2018 8:28 PM Clinical history: 38 years old, female; Abdominal pain; Periumbilical; Prior surgery; Surgery date: <1 month; Surgery type: Hernia repair x 3, last surgery 10/28/18 with mesh, HX mirtha and tubal ligation; Additional info: Umbilical hernia, ? incarceration TECHNIQUE: Imaging protocol: Computed tomography of the abdomen and pelvis with intravenous contrast. Radiation optimization: All CT scans at this facility use at least one of these dose optimization techniques: automated exposure control; mA and/or kV adjustment per patient size (includes targeted exams where dose is matched to clinical indication); or iterative reconstruction. Contrast material: OMNIPAQUE 350; Contrast volume: 91 ml; Contrast route: IV; COMPARISON: CT ABDOMEN PELVIS W 04/10/2018 10:02 FINDINGS: Lungs: Dependent atelectasis. Liver: Normal. No mass. Gallbladder and bile ducts: Normal. No calcified stones. No ductal dilation. Pancreas: Normal. No ductal dilation. Spleen: Normal. No splenomegaly. Adrenals: Normal. No mass. Kidneys and ureters: Stable renal cysts. Stomach and bowel: Stable large retrocardiac hernia versus postsurgical changes from fundoplication similar to prior study 10/04/2018. Constipation. Food-filled stomach. Appendix: No evidence of appendicitis. Intraperitoneal space: Unremarkable. No free air. No significant fluid collection. Vasculature: Mild atherosclerotic disease. Lymph nodes: Unremarkable. No enlarged lymph nodes. Bladder: Unremarkable as visualized. Reproductive: Unremarkable as visualized. Bones/joints: Unremarkable. No acute fracture. Soft tissues: Periumbilical fat infiltration consistent with recent surgery. Interval decrease in the subcutaneous fluid around the umbilicus compared with the prior study. IMPRESSION: 1. Interval decrease in the subcutaneous fluid around the postsurgical changes of the umbilicus. 2. Stable retrocardiac hernia. 3. Constipation. Dictated and Authenticated by: Edwige Barbosa MD. Ordering:OBIE Crook MD
[2018-11-14 22:04] VITALS: BP 142/79; PULSE 86; RESP 16; O2SAT 98
== END 2018-11-14 22:03 | disposition home or self-care (01) ==
PROVIDERS: Emergency Provider Physician Assistant; PCP Family Medicine
DX: K59.00 Constipation, unspecified (principal); R10.9 Unspecified abdominal pain
CPT/HCPCS: 36415; 80053; 96361; 96374; 99283; 99285; 74177; 85025; 99284; J2270; J3490

== ENCOUNTER → 2018-11-16 10:47 | Outpatient (BNVA) | payer MEDICARE, MEDICAID, SELFPAY | PROVIDERS: PCP Family Medicine; Referring Provider Family Medicine; Visit Provider Surgery | DX: K46.9 Unspecified abdominal hernia without obstruction or gangrene (principal); Z48.815 Encounter for surgical aftercare following surgery on the digestive system; Z87.19 Personal history of other diseases of the digestive system ==

== ENCOUNTER 2018-12-11 22:04 | Emergency (ER) | payer MEDICARE, MEDICAID, SELFPAY ==
[2018-12-11 22:10] VITALS: BP 150/84; PULSE 99; RESP 18; TEMP 36.6; O2SAT 98
--- NOTE | 2018-12-11 22:21 | W.ED.GENAD ---
Discharge Plan Disposition Patient Disposition: HOME Condition: Improving Discharge Details Chief Complaint: Urinary Clinical Impression: Acute cystitis Primary Care Provider: Talisha Treviño ED Provider: Prince Cummins Home Meds and New Rx's Prescriptions: New cephalexin 500 mg tablet 500 mg PO TID 7 Days Qty: 21 RF: 0 Continued bisacodyl 5 mg tablet 5 mg PO ONCE RF: 0 gabapentin 100 mg capsule 100 mg PO QHS Qty: 60 RF: 2 bisacodyl 5 mg tablet 5 mg PO BID Qty: 60 RF: 12 cyclobenzaprine 10 mg Tablet 10 mg PO BID RF: 0 albuterol sulfate [Ventolin HFA] 90 mcg/actuation Hfa Aerosol Inhaler 2 puff Inhalation Q6H PRNRF: 0 ibuprofen [IBU] 600 mg tablet 600 mg PO QID PRN (Reason: pain) Qty: 60 RF: 4 Discharge Instructions Instructions: Urinary Tract Infection in Women (ED) Additional Instructions: Small, frequent sips of fluids so that she maintain hydration. Follow-up with regular doctor if not improving in 3 days time. Return to the emergency department for any acute concerns. Medical Decision Making 38-year-old female presents from home with one episode 3 days ago of bloody urination, recurrent again tonight. She has not had a fever or back pain. She has otherwise recently been well. States she had a normal menses 2 weeks ago, does not feel she is having vaginal discharge tonight. She is well-appearing on exam. Abdomen is nontender. Urinalysis is notable for both blood as well as leuk esterase. Consistent with acute cystitis. I will treat with a course of Keflex. She is stable for outpatient management at this time. HPI General Mode of arrival: ambulatory. Date/Time Provider Initiated Documentation: 12/11/18 22:06. Limitations to Documentation: no limitations. Information obtained by: patient. History of Present Illness 38 year old F presents to the emergency department with the chief complaint of Blood after urination, described as mild, and is localized to the pelvis and genitals. Patient reports no radiation. Patient started experiencing this minute(s) and it has been now resolved. No exacerbating factors reported . Patient notes no other symptoms.. Patient did receive the following treatments prior to arrival, none Related Data Home Medications Medication Instructions Recorded Confirmed cyclobenzaprine 10 mg PO BID 02/14/18 12/11/18 albuterol sulfate [Ventolin HFA] 2 puff INHALATION Q6H PRN 06/01/18 12/11/18 ibuprofen [IBU] 600 mg PO QID PRN #60 tab 09/24/18 12/11/18 bisacodyl 5 mg tablet 5 mg PO ONCE 10/18/18 12/11/18 gabapentin 100 mg capsule 100 mg PO QHS #60 cap 10/18/18 12/11/18 bisacodyl 5 mg tablet 5 mg PO BID #60 tab 10/27/18 12/11/18 cephalexin 500 mg PO TID 7 Days #21 tab 12/11/18 Previous Rx's Medication Instructions Recorded ibuprofen [IBU] 600 mg PO QID PRN #60 tab 09/24/18 gabapentin 100 mg capsule 100 mg PO QHS #60 cap 10/18/18 bisacodyl 5 mg tablet 5 mg PO BID #60 tab 10/27/18 cephalexin 500 mg PO TID 7 Days #21 tab 12/11/18 Allergies Allergy/AdvReac Type Severity Reaction Status Date / Time No Known Allergies Allergy Verified 12/11/18 22:14 General Stated Complaint: Urinary CLIFFORD: 4 Review of Systems Narrative: No fever, no back pain, normal bowel movements, denies vaginal discharge or bleeding, denies rectal bleeding. She has had some nerve pain since having abdominal hernia repair with mesh in the summer. [facility] Medical History Abdominal hernia (Acute) just above umbilicus Abdominal pain (Chronic) chronic RLQ pain that did not improve with ureteroscopy. LUQ pain. W/U at [facility]. Pt thinks that she has hiatal hernia. No evidence on imaging studies. Asthma (Chronic) stable. no exacerbations for 1 yr. 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 Chronic back pain (Chronic) Diarrhea due to drug (Acute) GERD (gastroesophageal reflux disease) (Chronic) Hematuria (Acute) Hiatal hernia (Chronic) Hypertension (Chronic) IBS (irritable bowel syndrome) (Chronic) Insomnia (Acute) Postoperative seroma (Acute) Prediabetes (Acute) Recurrent umbilical hernia with incarceration (Acute) Tobacco use (Chronic) Surgical History bone spur R foot. (Resolved) History of hernia repair (Chronic) History of hernia surgery (Chronic) Ligation of fallopian tube (Chronic) Status post Molly fundoplication (Acute) Tooth extraction (Resolved) Social History Smoking/Tobacco Use Status: Current every day Tobacco Type: cigarettes Alcohol Intake: never Drug use: Never Substance use type: does not use Do you feel safe at home: Yes Do you feel safe in your relationship?: Yes History History Para 0 Hx # Term Pregnancies Multiple births Hx # Pregnancies Ectopic pregnancies AB induced Hx Number of Living Children AB spontaneous Exam Narrative Exam Narrative: GEN: awake, alert, oriented 3. Pleasant, well groomed, interactive. HEAD: Normocephalic, atraumatic ENT: Mucous membranes moist, oropharynx unremarkable, External ear exam unremarkable EYES: PERRL, EOMI NECK: Full ROM, no MIESHA, no menigismus CHEST/RESP: Nontender, clear to auscultation bilateral, no wheeze/rhonchi/rales CARDIOVASCULAR: RRR, no murmur, rub kenny. 2+ Rad pulse bilateral ABDOMEN: Soft, nontender, no mass. +Bowel sounds. No flank tenderness. EXT: Full ROM, no edema, no rash Neuro: Grossly normal neurologic exam, conversant, interactive. Psych: Speech fluent, thoughts congruent, affect normal Course Vital Signs Vital signs: Vital Signs Temperature 36.6 C 12/11/18 22:10 Pulse 99 H 12/11/18 22:10 Respiratory Rate 18 12/11/18 22:10 Blood Pressure 150/84 H 12/11/18 22:10 Pulse Oximetry 98 12/11/18 22:10 Temperature 36.6 C 12/11/18 22:10 Temperature Source Temporal Artery Scan 12/11/18 22:10 Pulse 99 H 12/11/18 22:10 Respiratory Rate 18 12/11/18 22:10 Blood Pressure 150/84 H 12/11/18 22:10 Pulse Oximetry 98 12/11/18 22:10 Oxygen Delivery Method Room Air 12/11/18 22:10 Oxygen Flow Rate 0 12/11/18 22:10
[2018-12-11 22:43] LABS: Bilirubin Negative (Negative); Blood Trace-intact (Negative); Clarity Cloudy (Clear); Glucose Negative (Negative); Ketones Negative (Negative); Leukocyte Esterase Trace (Negative); Nitrite Negative (Negative); Specific Gravity 1.025 (1.005-1.025); Urobilinogen 0.2 EU/dL (Up TO 0.2)
[2018-12-11 22:56] LABS: Bacteria Moderate HPF (Negative); C & S Indicated? No/Sq. Contamination; Crystals Negative HPF (Negative); Epithelial Cells Many HPF (Negative); Mucus Negative (Negative); RBC 0-2 (0-2); WBC 0-2 HPF (0-5)
[2018-12-11] MEDS: Cephalexin 500 MG CAP, 4 CAPS/BTL PO (23:03)
== END 2018-12-11 23:07 | disposition home or self-care (01) ==
PROVIDERS: Emergency Provider Emergency Medicine; PCP Family Medicine
DX: N30.01 Acute cystitis with hematuria (principal)
CPT/HCPCS: 99283; 81003; 81015

== ENCOUNTER → 2019-02-02 09:59 | Outpatient (BNVA) | payer MEDICARE, MEDICAID, SELFPAY | PROVIDERS: PCP Family Medicine; Referring Provider Family Medicine; Visit Provider Surgery | DX: R10.13 Epigastric pain (principal); Z87.19 Personal history of other diseases of the digestive system | CPT/HCPCS: 99212; 99213 ==

== ENCOUNTER 2019-02-17 09:58 | Emergency (ER) | payer MEDICARE, MEDICAID, SELFPAY ==
[2019-02-17 10:01] VITALS: BP 154/61; PULSE 96; O2SAT 98
--- NOTE | 2019-02-17 10:37 | W.ED.GENAD ---
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 Primary Care Provider: Talisha Treviño ED Provider: Ekaterina Seaman Home Meds and New Rx's Prescriptions: Continued amoxicillin-pot clavulanate 875-125 mg tablet 1 tab PO BID RF: 0 bisacodyl 5 mg tablet 5 mg PO BID Qty: 60 RF: 12 cyclobenzaprine 10 mg Tablet 10 mg PO BID RF: 0 albuterol sulfate [Ventolin HFA] 90 mcg/actuation Hfa Aerosol Inhaler 2 puff Inhalation Q6H PRNRF: 0 ibuprofen [IBU] 600 mg tablet 600 mg PO QID PRN (Reason: pain) Qty: 60 RF: 4 Discharge Instructions Instructions: Pelvic Pain in Women (ED) Additional Instructions: Call women's wellness on Tuesday morning to schedule follow-up appointment for reevaluation. Alternate Tylenol and Motrin as needed and directed for pain. Return to the emergency department if you develop any worsening or new concerning symptoms. Discharge Data Discharge Date/Time-TO BE ENTERED AT DEPARTURE: 02/17/19 12:55 Discharge Physician: Ekaterina Seaman Medical Decision Making 1010 -- 38yo F w/ a c/o vaginal pain for the past 10 days. She states the pain is external with urination but also occasionally has a sharp pain within the vagina. She denies any actual intravaginal pain that occurs during intercourse and states that she only has pain when sitting with urination after intercourse. She denies any fever, vomiting, lower abdominal pain, vaginal bleeding, lesions. She states she is sexually active with one partner and does not use protection. She appears nontoxic. Vitals within normal limits. Abdomen soft nontender. Pelvic exam revealed very small 1 mm white papules around labia minora bilaterally. There were no obvious vesicles, blisters. This area was nontender to palpation. Vaginal exam noted clear brown discharge likely consistent with recent post menses. There was no cervical motion tenderness or bilateral adnexal tenderness or mass. Urinalysis, vaginal path screen and GC chlamydia ordered. Discussed with patient that her symptoms could be due to possibly vaginal atrophy, genital warts, less likely herpes or other STD. 1230 --urinalysis negative for infection. test negative. Patient is requesting to leave and would rather not wait for the vaginal path screen results. Advised that patient follow-up with women's wellness for further evaluation. A skin swab of the labia minora area was obtained as part of the pelvic exam. The laboratory states that they cannot run this as this was not a sample of any fluid. Usual and customary return precautions given prior to discharge. After discharge vaginal path screen results returned and negative. Medical Records Medical records reviewed: Yes I reviewed the patient's medical records. Lab Data Lab results reviewed: Yes I reviewed the patient's lab results. Labs: 02/17/19 11:05 Vaginal Vaginitis Screen - Final Laboratory Tests Range/Units 02/17/19 11:25 Urine Color (Yellow) Yellow Urine Clarity (Clear) Clear Urine pH (5-8) 6.0 Ur Specific [place] (1.005-1.025) >= 1.030 H Urine Protein (Negative) mg/dL Negative Urine Ketones (Negative) mg/dL Negative Urine Blood (Negative) Small H Urine Nitrite (Negative) Negative Urine Bilirubin (Negative) Negative Urine Urobilinogen (Up TO 0.2) EU/dL 0.2 Ur Leukocyte Esterase (Negative) Negative Urine RBC (0-2) HPF 0-2 Urine WBC (0-5) HPF 0-2 Ur Epithelial Cells (Negative) HPF Moderate Urine Crystals (Negative) HPF Negative Urine Bacteria (Negative) HPF Few Urine Casts (Negative) LPF Negative Urine Mucus (Negative) Moderate Ur Culture Indicated? No/sq. contamination Urine Glucose (Negative) mg/dL Negative HPI General Mode of arrival: ambulatory. Date/Time Provider Initiated Documentation: 02/17/19 10:07. Limitations to Documentation: no limitations. Information obtained by: patient. History of Present Illness 38 year old F presents to the emergency department with the chief complaint of vaginal pain , Quality is described as sharp, and is localized to the genitals (vaginal pain). Patient started experiencing this day(s) (10) and it has been constant. No relieving factors improve symptom(s), No exacerbating factors reported . Patient notes denies fever/chills, headaches, loss of appetite, malaise, nausea/vomiting, rash, seizure, shortness of breath, syncope and weakness. Patient did receive the following treatments prior to arrival, none Related Data Home Medications Medication Instructions Recorded Confirmed cyclobenzaprine 10 mg PO BID 02/14/18 02/17/19 albuterol sulfate [Ventolin HFA] 2 puff INHALATION Q6H PRN 06/01/18 02/17/19 ibuprofen [IBU] 600 mg PO QID PRN #60 tab 09/24/18 02/17/19 bisacodyl 5 mg tablet 5 mg PO BID #60 tab 10/27/18 02/17/19 amoxicillin 875 mg-potassium 1 tab PO BID 02/02/19 02/17/19 clavulanate 125 mg tablet Previous Rx's Medication Instructions Recorded ibuprofen [IBU] 600 mg PO QID PRN #60 tab 09/24/18 bisacodyl 5 mg tablet 5 mg PO BID #60 tab 10/27/18 Allergies Allergy/AdvReac Type Severity Reaction Status Date / Time No Known Allergies Allergy Verified 02/17/19 10:07 General 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 Review of Systems All systems reviewed & are unremarkable except as noted in HPI and below Constitutional Constitutional: Reports as per HPI, Denies chills and Denies fever(s) Eyes Eyes: Denies blurry vision ENT Ears, Nose, Mouth, and Throat: Denies dizziness, Denies sore throat and Denies throat swelling Cardiovascular Cardiovascular: Denies chest pain and Denies dyspnea Respiratory Respiratory: Denies cough and Denies dyspnea Gastrointestinal Gastrointestinal: Denies abdominal pain, Denies diarrhea and Denies vomiting Genitourinary Genitourinary: Denies hematuria and Denies dysuria Comments: vaginal pain Musculoskeletal Musculoskeletal: Denies back pain and Denies numbness Integumentary/Breasts Skin/Breast: Denies lesions and Denies rash Neurologic Neurologic: Denies dizziness, Denies focal weakness and Denies numbness Allergic/Immunologic Allergic/Immunologic: Denies throat swelling [facility] Medical History Abdominal hernia (Acute) just above umbilicus Abdominal pain (Chronic) chronic RLQ pain that did not improve with ureteroscopy. LUQ pain. W/U at [facility]. Pt thinks that she has hiatal hernia. No evidence on imaging studies. Asthma (Chronic) stable. no exacerbations for 1 yr. 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 Chronic back pain (Chronic) Diarrhea due to drug (Acute) GERD (gastroesophageal reflux disease) (Chronic) Hematuria (Acute) Hiatal hernia (Chronic) Hypertension (Chronic) IBS (irritable bowel syndrome) (Chronic) Insomnia (Acute) Postoperative seroma (Acute) Prediabetes (Acute) Recurrent umbilical hernia with incarceration (Acute) Tobacco use (Chronic) Surgical History bone spur R foot. (Resolved) History of hernia repair (Chronic) History of hernia surgery (Chronic) Ligation of fallopian tube (Chronic) Status post Molly fundoplication (Acute) Tooth extraction (Resolved) Social History Smoking/Tobacco Use Status: Current every day Tobacco Type: cigarettes Alcohol Intake: never Drug use: Never Substance use type: does not use Do you feel safe at home: Yes Do you feel safe in your relationship?: Yes History History Para 0 Hx # Term Pregnancies Multiple births Hx # Pregnancies Ectopic pregnancies AB induced Hx Number of Living Children AB spontaneous Exam Const General: cooperative, healthy appearing and no acute distress HENMT Head: normal to inspection Face and sinus: normal facial exam Eyes General: appearance normal, both eyes and all related structures EOM: EOM intact bilaterally Neck Neck: normal visual inspection and No submandibular swelling Lymphatic: no lymphadenopathy noted Chest Chest: normal inspection of the chest and no tenderness Resp Effort & Inspection: normal respiratory effort and able to speak in complete sentences Auscultation: clear to auscultation bilaterally Cardio Rate: regular rate Rhythm: regular rhythm GI Inspection: normal to inspection Palpation: soft, not firm, not rigid and nontender Auscultation: normal bowel sounds Other: Tiny 1 mm skin colored/hypopigmented papules noted within labia minora. This is the area of burning. Unclear if this is normal vaginal anatomy, or pathology. There are no vesicles, blisters, obvious genital warts, vaginal discharge, erythema, edema to the external area. Cervix noted clear/brown fluid endocervical likely consistent with recent post menses. Otherwise cervix normal to inspection. No cervical motion tenderness, adnexal mass or tenderness. Skin General skin exam: no rashes or lesions noted Neuro General: alert, awake and oriented x3 Cognition: normal cognition Speech: speech normal Motor: muscle tone normal throughout Sensory Exam: no sensory deficits noted Extrem General: normal to inspection, full ROM, normal capillary refill, no calf tenderness bilaterally and no edema Psych Appearance: grossly normal Mental Status: mental status grossly normal Speech and Movement: speech and movement normal Affect: normal affect Course Vital Signs Vital signs: Vital Signs Pulse 96 H 02/17/19 10:01 Blood Pressure 154/61 H 02/17/19 10:01 Pulse Oximetry 98 02/17/19 10:01 Temperature Source Skin 02/17/19 10:01 Pulse 96 H 02/17/19 10:01 Respiratory Effort 02/17/19 10:08 Blood Pressure 154/61 H 02/17/19 10:01 Pulse Oximetry 98 02/17/19 10:01 Oxygen Delivery Method Room Air 02/17/19 10:01 Oxygen Flow Rate 0 02/17/19 10:01
[2019-02-17 11:27] LABS: Bilirubin Negative (Negative); Blood Small (Negative); Clarity Clear (Clear); Glucose Negative (Negative); Ketones Negative (Negative); Leukocyte Esterase Negative (Negative); Nitrite Negative (Negative); Specific Gravity >= 1.030 (1.005-1.025); Urobilinogen 0.2 EU/dL (Up TO 0.2)
[2019-02-17 11:36] LABS: Bacteria Few HPF (Negative); C & S Indicated? No/Sq. Contamination; Casts Negative LPF (Negative); Crystals Negative HPF (Negative); Epithelial Cells Moderate HPF (Negative); Mucus Moderate (Negative); RBC 0-2 HPF (0-2); WBC 0-2 HPF (0-5)
[2019-02-19 13:15] LABS: Chlamydia Result Negative (Negative); GC Result Negative (Negative)
== END 2019-02-17 12:55 | disposition home or self-care (01) ==
PROVIDERS: Emergency Provider Physician Assistant; PCP Family Medicine
DX: R10.2 Pelvic and perineal pain (principal); I10 Essential (primary) hypertension
CPT/HCPCS: 81025; 87491; 87591; 99283; 81003; 81015; 87070; 87205; 87480; 87510; 87660

== ENCOUNTER 2019-04-09 11:29 | Emergency (ER) | payer MEDICARE, MEDICAID, SELFPAY ==
[2019-04-09 11:42] VITALS: BP 146/65; PULSE 116; RESP 18; TEMP 36.8; O2SAT 97
--- NOTE | 2019-04-09 12:00 | DI.CT_ITS ---
EXAM: CT ABDOMEN AND PELVIS W CLINICAL HISTORY: RECENT MESH, ABDOMINAL PAIN TECHNIQUE: CT examination abdomen and pelvis was performed with a bolus infusion of 100 cc of Omnipa que 350. COMPARISON: CT ABDOMEN PELVIS W from 11/14/2018 FINDINGS: Images obtained through the lung bases are unremarkable. There is a hiatal hernia containing signifi cant portion of the gastric fundus. Prior surgery of the esophageal hiatus is noted. Liver, spleen and pancreas appear normal. Gallbladder and bile ducts are CT normal. Adrenals and ki dneys are unremarkable with small bilateral renal cysts and possible tiny nonobstructing upper pole l eft renal calculus. Abdominal aorta is of normal diameter and no major vascular abnormality is seen. Patient has reportedly had prior ventral hernia surgery and there are postsurgical changes of the ant erior abdominal wall. No recurrent hernia seen. No bowel abnormality. Unremarkable appearance of t he appendix. No evidence of diverticulitis. 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 No evidence of abdominal or pelvic adenopathy. IMPRESSION: No evidence of acute intraabdominal process.
[2019-04-09] MEDS: Normal Saline 1,000 ML 1000 ML IV ×2 (12:53→15:04)
[2019-04-09 12:55] LABS: Lactate 1.5 mmol/L (0.6-1.4)
[2019-04-09 13:03] LABS: Abs Immature Grans 0.03 k/cumm (0.0-0.09); Absolute Basophil Count 0.05 k/cumm (0.0-0.2); Absolute Eosinophil Count 0.12 k/cumm (0.0-0.7); Absolute Lymphocyte Count 1.88 k/cumm (1.2-3.4); Absolute Monocyte Count 0.86 k/cumm (0.11-0.7); Absolute Neutrophil Count 6.01 k/cumm (1.2-6.7); Basophils % 0.6; Eosinophils % 1.3; HCT 34.7 % (36.0-46.0); HGB 10.7 g/dL (12.0-15.5); Immature Grans % 0.3 %; Mean Corp. HGB Concentration 30.8 g/dL (32.0-36.0); Mean Corpuscular Volume 64.7 fL (80-95); Mean Platelet Volume 9.9 fL (8.0-11.0); Monocytes % 9.6; Neutrophils % 67.2; Platelet Count 554 x1000/uL (130-400); RBC 5.36 m/cumm (4.00-5.20); RBC Distribution Width 18.8 % (11.7-14.6); White Blood Cell Count 8.95 k/cumm (4.4-10.8)
[2019-04-09 13:12] LABS: PTT Activated 22.5 sec (21.0-31.4); Prothrombin Time 9.8 sec (9.3-11.0)
[2019-04-09 13:26] LABS: ALT 17 U/L (14-59); AST 11 U/L (15-37); Albumin 3.8 g/dL (3.4-5.0); Alkaline Phosphatase 108 U/L (46-116); Anion Gap 12.6 mmol/L (3-11); BUN 12 mg/dL (7-18); Bilirubin, Total 0.2 mg/dL (0.2-1.0); CO2 23.4 mmol/L (21.0-32.0); CREATININE 0.91 mg/dL (0.55-1.02); Calcium 8.7 mg/dL (8.5-10.1); Chloride 102 mmol/L (98-107); Glucose 143 mg/dL (74-106); Lipase 67 U/L (73-393); Potassium 3.1 mmol/L (3.5-5.1); Sodium 138 mmol/L (136-145); Total Protein 7.7 g/dL (6.4-8.2)
[2019-04-09 14:39] LABS: Bilirubin Negative (Negative); Blood Negative (Negative); Clarity Sl Cloudy (Clear); Glucose Negative (Negative); Ketones Negative (Negative); Leukocyte Esterase Negative (Negative); Nitrite Negative (Negative); Specific Gravity 1.025 (1.005-1.025); Urobilinogen 0.2 EU/dL (Up TO 0.2)
[2019-04-09] MEDS: Omnipaque 350 MG/ML 100 ML BTL IJ (14:46)
[2019-04-09] MEDS: Potassium Chloride 20 MEQ TABCR 40 MEQ PO (15:04)
--- NOTE | 2019-04-09 15:22 | W.ED.GENAD ---
Discharge Plan Disposition Patient Disposition: HOME Condition: Good Discharge Details Chief Complaint: Abd Prob Clinical Impression: Abdominal pain Primary Care Provider: Talisha Treviño ED Provider: Yoel White Home Meds and New Rx's Prescriptions: New oxycodone 5 mg capsule 5 mg PO BID PRN (Reason: pain) Qty: 7 RF: 0 No Action bisacodyl 5 mg tablet 5 mg PO BID Qty: 60 RF: 12 cyclobenzaprine 10 mg Tablet 10 mg PO BID RF: 0 promethazine 25 mg Tablet 25 mg PO Q12H PRNRF: 0 albuterol sulfate [ProAir HFA] 90 mcg/actuation Hfa Aerosol Inhaler See Rx Instructions .ROUTE .COMPLEX RF: 0 pantoprazole [Protonix] 40 mg Tablet,Delayed Release (Dr/Ec) 40 mg PO DAILY RF: 0 gabapentin 300 mg Capsule PO DAILY RF: 0 ibuprofen [IBU] 600 mg tablet 600 mg PO QID PRN (Reason: pain) Qty: 60 RF: 4 Discharge Instructions Instructions: Abdominal Pain (ED) Additional Instructions: At this time the CT scan shows no significant abnormalities that would require repeat surgery. Your symptoms may be secondary to the mesh, but there is no evidence of significant problem with the surgery itself. Your potassium is low, please eat foods that are high in potassium like bananas, legumes, kidney beans. Please follow-up closely with your surgeon in [place] Dr. Monae. Their clinic number is [phone] please take Tylenol and Motrin as needed for pain, and only for breakthrough pain please take the oxycodones if absolutely needed. If you notice any worsening of your symptoms, or any new symptoms such as vomiting, diarrhea, fever, chills, shortness of breath, chest pain, numbness, weakness, or fainting , please return immediately to the emergency department for reevaluation. Please follow up with your primary care provider as soon as possible for reassessment and reevaluation. As always, it was a pleasure participating in your medical care today. Referrals: Talisha Treviño [Primary Care Provider] - Medical Decision Making 38-year-old female with a past medical history of tubal ligation, irritable bowel syndrome, GERD, previous umbilical hernia surgery multiple times, the most recent being 2 to 3 months ago in conjunction with an incarcerated umbilical hernia, no mesh was placed at that time by Dr. Helms, however the patient had continued pain at home, which led to a subsequent second opinion in [place] with Dr. Monae, where she had a mesh placed 1 month ago. Since the mesh was placed she has had daily vomiting, continued pain and nausea. This is gradually been continuing and worsening, she is running out of her narcotic medications at this time and was concerned about this in conjunction with her continued and worsening pain. did contact her surgeon's office in [place], they recommended she come to the ER for further evaluation. Currently she denies any hematemesis, stools are normal. She denies any melena. She denies any fever or chills. She denies any chest pain or shortness of breath. No other complaints at this time. No other modifying factors. No urinary or vaginal symptoms. She does have a history of a tubal ligation. Physical exam demonstrates mild tenderness in in the umbilical region. No other abnormalities bruising signs of cellulitis warmth discharge or mass. CT scan was ordered and demonstrates no signs of acute process incarceration free fluid repeat hernia or other abnormality. I did contact [place] [facility], and spoke with Dr. Tiffanie Parker who is very familiar with the patient. I discussed the labs and imaging finding. She has no additional recommendations at this time and does recommend close follow-up on an outpatient basis. Patient's potassium is 3.1 and this was replaced with oral potassium, recommend continued foods high in potassium at home. This time with no signs of an acute surgical abdomen, no other significant life-threatening abnormality on exam I do feel that she can be safely discharged with close follow-up. I have extensively reviewed the treatment plan and discharge instructions with the patient. I have addressed all patient concerns at this time. The patient was made aware of what symptoms to monitor for that would warrant a return to the emergency department. Discussed the plan with the patient, they demonstrate verbal understanding and agreement with our assessment and plan at this time. FINDINGS: Images obtained through the lung bases are unremarkable. There is a hiatal hernia containing significant portion of the gastric fundus. Prior surgery of the esophageal hiatus is noted. Liver, spleen and pancreas appear normal. Gallbladder and bile ducts are CT normal. Adrenals and kidneys are unremarkable with small bilateral renal cysts and possible tiny nonobstructing upper pole left renal calculus. Abdominal aorta is of normal diameter and no major vascular abnormality is seen. Patient has reportedly had prior ventral hernia surgery and there are postsurgical changes of the anterior abdominal wall. No recurrent hernia seen. No bowel abnormality. Unremarkable appearance of the appendix. No evidence of diverticulitis. 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 No evidence of abdominal or pelvic adenopathy. IMPRESSION: No evidence of acute intraabdominal process. HPI General Date/Time Provider Initiated Documentation: 04/09/19 11:48. HPI Narrative: 38-year-old female with a past medical history of tubal ligation, irritable bowel syndrome, GERD, previous umbilical hernia surgery multiple times, the most recent being 2 to 3 months ago in conjunction with an incarcerated umbilical hernia, no mesh was placed at that time by Dr. Helms, however the patient had continued pain at home, which led to a subsequent second opinion in [place] with Dr. Monae, where she had a mesh placed 1 month ago. Since the mesh was placed she has had daily vomiting, continued pain and nausea. This is gradually been continuing and worsening, she is running out of her narcotic medications at this time and was concerned about this in conjunction with her continued and worsening pain. did contact her surgeon's office in [place], they recommended she come to the ER for further evaluation. Currently she denies any hematemesis, stools are normal. She denies any melena. She denies any fever or chills. She denies any chest pain or shortness of breath. No other complaints at this time. No other modifying factors. No urinary or vaginal symptoms. She does have a history of a tubal ligation. Related Data Home Medications Medication Instructions Recorded Confirmed cyclobenzaprine 10 mg PO BID 02/14/18 04/09/19 ibuprofen [IBU] 600 mg PO QID PRN #60 tab 09/24/18 04/09/19 bisacodyl 5 mg tablet 5 mg PO BID #60 tab 10/27/18 04/09/19 albuterol sulfate [ProAir HFA] See Rx Instructions .ROUTE .COMPLEX 04/09/19 04/09/19 gabapentin mg PO DAILY 04/09/19 oxycodone 5 mg PO BID PRN #7 cap 04/09/19 pantoprazole [Protonix] 40 mg PO DAILY 04/09/19 04/09/19 promethazine 25 mg PO Q12H PRN 04/09/19 04/09/19 Previous Rx's Medication Instructions Recorded ibuprofen [IBU] 600 mg PO QID PRN #60 tab 09/24/18 bisacodyl 5 mg tablet 5 mg PO BID #60 tab 10/27/18 oxycodone 5 mg PO BID PRN #7 cap 04/09/19 Allergies Allergy/AdvReac Type Severity Reaction Status Date / Time lisinopril AdvReac Mild cough Unverified 04/09/19 11:52 General Stated Complaint: Abd Prob CLIFFORD: 3 Review of Systems All systems reviewed & are unremarkable except as noted in HPI and below PFSH Social History Smoking/Tobacco Use Status: Current every day Tobacco Type: cigarettes Alcohol Intake: never Drug use: Never Substance use type: does not use Do you feel safe at home: Yes Do you feel safe in your relationship?: Yes History History Para 0 Hx # Term Pregnancies Multiple births Hx # Pregnancies Ectopic pregnancies AB induced Hx Number of Living Children AB spontaneous Exam Narrative Exam Narrative: 1.Const: Well-nourished, Well-developed, appearing stated age 2.Eyes: PERRL, no conjunctival injection, and symmetrical lids. 3.ENT: Atraumatic external nose and ears. Moist MM. Neck: Symmetric, trachea midline, No thyromegaly. 4.CVS: +S1/S2, No murmurs or gallops. Peripheral pulses 2+ and equal in all extremities. Brisk capillary refill in all extremities. 5.RESP: Unlabored respiratory effort. Clear to auscultation bilaterally. No wheezes rales or rhonchi 6.GI: Soft,Nondistended, No hepatosplenomegaly. No guarding or rebound. No signs of an acute surgical abdomen. Minimal tenderness over the umbilical region. No significant bruising. No postoperative redness, drainage discharge or warmth. No mass. 7.MSK: Normocephalic/Atraumatic, Extremities w/o deformity or ttp No cyanosis or clubbing, Normal movement of all extremities 8.Skin: Warm, Dry. No rashes or lesions. 9.Neuro: tannery gummer II-XII grossly intact. Sensation grossly intact, no focal neurologic deficits. 10.Psych: (AAO) x3. Appropriate mood and affect Course Vital Signs Vital signs: Vital Signs Temperature 36.8 C 04/09/19 11:42 Pulse 116 H 04/09/19 11:42 Respiratory Rate 18 04/09/19 11:42 Blood Pressure 146/65 H 04/09/19 11:42 Pulse Oximetry 97 04/09/19 11:42 Temperature 36.8 C 04/09/19 11:42 Temperature Source Skin 04/09/19 11:42 Pulse 116 H 04/09/19 11:42 Respiratory Rate 18 04/09/19 11:42 Respiratory Effort Non-Labored 04/09/19 14:26 Blood Pressure 146/65 H 04/09/19 11:42 Blood Pressure Position Sitting 04/09/19 11:42 Pulse Oximetry 97 04/09/19 11:42 Oxygen Delivery Method Room Air 04/09/19 11:42 Oxygen Flow Rate 0 04/09/19 11:42 Pain Level 5 04/09/19 13:00 Comment 04/09/19 11:42 Lab/Test Results Lab/Test Results: Laboratory Tests Range/Units 04/09/19 04/09/19 04/09/19 12:45 12:45 12:45 WBC (4.4-10.8) k/cumm 8.95 RBC (4.00-5.20) m/cumm 5.36 H Hgb (12.0-15.5) g/dL 10.7 L Hct (36.0-46.0) % 34.7 L MCV (80-95) fL 64.7 L MCH (27.0-33.0) pg 20.0 L MCHC (32.0-36.0) g/dL 30.8 L RDW (11.7-14.6) % 18.8 H Plt Count (130-400) x1000/uL 554 H MPV (8.0-11.0) fL 9.9 Immature Gran % % 0.3 Neutrophils % 67.2 Lymphocytes % 21.0 Monocytes % 9.6 Eosinophils % 1.3 Basophils % 0.6 Absolute Neutrophils (1.2-6.7) k/cumm 6.01 Absolute Lymphocytes (1.2-3.4) k/cumm 1.88 Absolute Monocytes (0.11-0.7) k/cumm 0.86 H Absolute Eosinophils (0.0-0.7) k/cumm 0.12 Absolute Basophils (0.0-0.2) k/cumm 0.05 PT (9.3-11.0) sec INR (0.9-1.1) APTT (21.0-31.4) sec Sodium (136-145) mmol/L 138 Potassium (3.5-5.1) mmol/L 3.1 L Chloride (98-107) mmol/L 102 Carbon Dioxide (21.0-32.0) mmol/L 23.4 Anion Gap (3-11) mmol/L 12.6 H BUN (7-18) mg/dL 12 Creatinine (0.55-1.02) mg/dL 0.91 Estimated GFR/1.73 m2 (mL/min/1.73m2) >= 60.00 Glucose (74-106) mg/dL 143 H Lactate (0.6-1.4) mmol/L 1.5 H Calcium (8.5-10.1) mg/dL 8.7 Total Bilirubin (0.2-1.0) mg/dL 0.2 AST (15-37) U/L 11 L ALT (14-59) U/L 17 Alkaline Phosphatase (46-116) U/L 108 Total Protein (6.4-8.2) g/dL 7.7 Albumin (3.4-5.0) g/dL 3.8 Lipase (73-393) U/L 67 Urine Color (Yellow) Urine Clarity (Clear) Urine pH (5-8) Ur Specific [place] (1.005-1.025) Urine Protein (Negative) mg/dL Urine Ketones (Negative) mg/dL Urine Blood (Negative) Urine Nitrite (Negative) Urine Bilirubin (Negative) Urine Urobilinogen (Up TO 0.2) EU/dL Ur Leukocyte Esterase (Negative) Urine Glucose (Negative) mg/dL Range/Units 04/09/19 04/09/19 12:45 14:17 WBC (4.4-10.8) k/cumm RBC (4.00-5.20) m/cumm Hgb (12.0-15.5) g/dL Hct (36.0-46.0) % MCV (80-95) fL MCH (27.0-33.0) pg MCHC (32.0-36.0) g/dL RDW (11.7-14.6) % Plt Count (130-400) x1000/uL MPV (8.0-11.0) fL Immature Gran % % Neutrophils % Lymphocytes % Monocytes % Eosinophils % Basophils % Absolute Neutrophils (1.2-6.7) k/cumm Absolute Lymphocytes (1.2-3.4) k/cumm Absolute Monocytes (0.11-0.7) k/cumm Absolute Eosinophils (0.0-0.7) k/cumm Absolute Basophils (0.0-0.2) k/cumm PT (9.3-11.0) sec 9.8 INR (0.9-1.1) 1.0 APTT (21.0-31.4) sec 22.5 Sodium (136-145) mmol/L Potassium (3.5-5.1) mmol/L Chloride (98-107) mmol/L Carbon Dioxide (21.0-32.0) mmol/L Anion Gap (3-11) mmol/L BUN (7-18) mg/dL Creatinine (0.55-1.02) mg/dL Estimated GFR/1.73 m2 (mL/min/1.73m2) Glucose (74-106) mg/dL Lactate (0.6-1.4) mmol/L Calcium (8.5-10.1) mg/dL Total Bilirubin (0.2-1.0) mg/dL AST (15-37) U/L ALT (14-59) U/L Alkaline Phosphatase (46-116) U/L Total Protein (6.4-8.2) g/dL Albumin (3.4-5.0) g/dL Lipase (73-393) U/L Urine Color (Yellow) Yellow Urine Clarity (Clear) Sl cloudy Urine pH (5-8) 6.0 Ur Specific [place] (1.005-1.025) 1.025 Urine Protein (Negative) mg/dL Negative Urine Ketones (Negative) mg/dL Negative Urine Blood (Negative) Negative Urine Nitrite (Negative) Negative Urine Bilirubin (Negative) Negative Urine Urobilinogen (Up TO 0.2) EU/dL 0.2 Ur Leukocyte Esterase (Negative) Negative Urine Glucose (Negative) mg/dL Negative POC- Test(urine) Negative
[2019-04-09 15:51] VITALS: BP 142/66; PULSE 98; RESP 16; TEMP 36.9; O2SAT 99
== END 2019-04-09 15:52 | disposition home or self-care (01) ==
PROVIDERS: Emergency Provider Student in an Organized Health Care Education/Training Program; PCP Family Medicine
DX: R10.33 Periumbilical pain (principal); G89.18 Other acute postprocedural pain; K42.0 Umbilical hernia with obstruction, without gangrene; E87.6 Hypokalemia; Z98.890 Other specified postprocedural states
CPT/HCPCS: 36415; 80053; 81025; 83690; 96361; 96374; 96375; 99285; 74177; 81003; 83605; 85025; 85610; 85730; J3490

== ENCOUNTER 2019-05-02 09:39 | Emergency (ER) | payer MEDICARE, MEDICAID, SELFPAY ==
--- NOTE | 2019-05-02 09:41 | W.ED.GENAD ---
Discharge Plan Disposition Patient Disposition: HOME Condition: Good Discharge Details Chief Complaint: GenMedical Clinical Impression: Nausea, Acute epigastric pain Primary Care Provider: Talisha Treviño ED Provider: Yoel White Home Meds and New Rx's Prescriptions: New potassium chloride 20 mEq tablet extended release 20 meq PO DAILY Qty: 5 RF: 0 dicyclomine 20 mg tablet 20 mg PO BID Qty: 20 RF: 0 No Action bisacodyl 5 mg tablet 5 mg PO BID Qty: 60 RF: 12 cyclobenzaprine 10 mg Tablet 10 mg PO BID RF: 0 promethazine 25 mg Tablet 25 mg PO Q12H PRNRF: 0 albuterol sulfate [ProAir HFA] 90 mcg/actuation Hfa Aerosol Inhaler See Rx Instructions .ROUTE .COMPLEX RF: 0 pantoprazole [Protonix] 40 mg Tablet,Delayed Release (Dr/Ec) 40 mg PO DAILY RF: 0 gabapentin 300 mg Capsule 300 mg PO DAILY RF: 0 oxycodone 5 mg capsule 5 mg PO BID PRN (Reason: pain) Qty: 7 RF: 0 ibuprofen [IBU] 600 mg tablet 600 mg PO QID PRN (Reason: pain) Qty: 60 RF: 4 Discharge Instructions Instructions: Iron Deficiency Anemia (ED), Acute Nausea and Vomiting (ED) Additional Instructions: At this time the ultrasound and x-ray show no evidence of significant abnormality. I am concerned that your symptoms are likely from a virus. Please stick with an easy diet over the next few days of soups, bread, rice, bananas. Avoid any spicy foods, greasy foods. Your potassium is low, which is very chronic for you, I would recommend taking the supplemental potassium as directed for the next few days. Your hemoglobin is also at its chronic slightly low level, but it does appear that there may be a slight worsening, potentially likely from your frequent procedures. Would recommend eating a diet high in red meats, and supplementing with iron. We have placed a referral for you with the surgeons here, please contact their office as soon as convenient. If you notice any worsening of your symptoms, or any new symptoms such as vomiting, diarrhea, fever, chills, shortness of breath, chest pain, numbness, weakness, or fainting , please return immediately to the emergency department for reevaluation. Please follow up with your primary care provider as soon as possible for reassessment and reevaluation. As always, it was a pleasure participating in your medical care today. Referrals: Caitlin Lopez MD [ [facility] STAFF PHYSICIAN] - Esme Madera MD [ [facility] STAFF PHYSICIAN] - Katja Helms DO [OSTEOPATHIC DOCTOR] - Discharge Data Discharge Date/Time-TO BE ENTERED AT DEPARTURE: 05/02/19 12:20 Medical Decision Making 38-year-old female with a past medical history of tubal ligation, irritable bowel syndrome, Molly, GERD, previous umbilical hernia surgery multiple times, the most recent being 2 to 3 months ago in conjunction with an incarcerated umbilical hernia, no mesh was placed at that time by Dr. Helms, however the patient had continued pain at home, which led to a subsequent second opinion in [place] with Dr. Monae, where she had a mesh placed 2 month ago, which per patient is because of continued symptoms of chronic lower abdominal pain. She presents today for evaluation of epigastric pain, which she states is in the location of her previous hernia, which I assume was her hiatal hernia. She states that for the last 4 days she has had epigastric pain in that area, nausea but no vomiting. She admits to regular bowel movements, but denies any hematochezia, melena, acholic stool or diarrhea. She states that when she discussed this with Dr. Monae's office they recommended that she be evaluated at [facility] where she had her Molly performed, however because of the current COVID scenario she states that no one is traveling to [facility] and would like to be referred to our surgeons here. She states that she is presenting now for evaluation of the current epigastric pain. Patient has no other complaints at this time. No other acute changes. She denies alcohol intake, history of pancreatitis or other abnormalities. She still does have her gallbladder. She denies pertinent family history. Physical exam demonstrates no evidence of an acute surgical abdomen. She does have mild epigastric tenderness, no bulging, no red warm firm mass. There is no evidence of significant ventral herniation that I can appreciate. No pain at McBurney's point, negative Gonzalez sign. Differential includes previous hernia complication, pancreatitis, less likely gallbladder pathology. I did discuss imaging options for the patient especially in light of her multiple CAT scans that she has had and at this time through notable discussion, weighing the risks and benefits, and a shared decision making process the patient has refused CT imaging at this time. Patient is of an appropriate age to make decisions. The patient is of sound mind, appears clinically sober, and has capacity to make decisions by my clinical exam. Respecting the patient's wishes we will hold off on CT imaging. We will get an abdominal series x-ray, labs, monitor closely and reassess. 10:47 AM Patient's laboratory work-up is returned, mostly unremarkable, potassium is 3.0, and the patient normally trends on the low end of normal for potassium. We will give 40 mEq orally here. We will also recommend prescription of potassium for home use and high potassium foods at home. Also of note the patient's hemoglobin is low at 10.1, now while this is certainly at the baseline for the patient her MCV has been noticing a gradual but slow trend down, suggesting a mild microcytic anemia. This may be secondary to the patient's multiple surgical procedures, or due to an underlying illness otherwise. She has no evidence of hematochezia, no melena, no other complaints to suggest a GI bleed. I do feel that this is notably chronic in nature and not acute or indicative of the problem today. We will add this to the referral with her surgeon for the outpatient basis. 10:46 AM X-ray and ultrasound have both returned negative, no acute process no evidence of obstruction or cholecystitis. I did rediscuss imaging with the patient she would like to continue to hold off on CAT scan. Patient's mother is here with notably identical symptoms, and in conjunction with her relatively unremarkable work-up I do feel her signs and symptoms at this time are clinically consistent with mild gastroenteritis and clinically inconsistent with incarcerated or strangulated hernia, or acute surgical abdominal pathology or cholecystitis.. No other evidence of significant acute surgical process. This time the patient symptoms are improved with Bentyl and NSAIDs. Signs and symptoms remain inconsistent with an acute surgical abdomen or pathology. This time I do feel close follow-up with surgery is notably important. We will place a referral with surgery per her request. Recommend bland diet, plenty of fluids, discussed red flags which to return. I have extensively reviewed the treatment plan and discharge instructions with the patient. I have addressed all patient concerns at this time. The patient was made aware of what symptoms to monitor for that would warrant a return to the emergency department. Discussed the plan with the patient, they demonstrate verbal understanding and agreement with our assessment and plan at this time. FINDINGS: Three views were obtained. Bowel gas pattern is within normal limits. No free intraperitoneal air seen. There appears to be a hiatal hernia. No gross organomegaly. IMPRESSION: No evidence of acute process. FINDINGS: Abdominal ultrasound was performed according to the usual protocol. Visualized liver parenchyma is normal in appearance. There is no evidence of cholelithiasis or gallbladder wall thickening. Negative sonographic Gonzalez sign noted. There is no biliary dilatation. Pancreas appears intact as visualized. Right kidney is unremarkable in appearance with no hydronephrosis or nephrolithiasis. Abdominal aorta nonvisualized. IVC of normal diameter. IMPRESSION: Negative abdominal ultrasound. No evidence of cholelithiasis. DATA REPOSITORY: [facility] General Date/Time Provider Initiated Documentation: 05/02/19 09:40. HPI Narrative: 38-year-old female with a past medical history of tubal ligation, irritable bowel syndrome, Molly, GERD, previous umbilical hernia surgery multiple times, the most recent being 2 to 3 months ago in conjunction with an incarcerated umbilical hernia, no mesh was placed at that time by Dr. Helms, however the patient had continued pain at home, which led to a subsequent second opinion in [place] with Dr. Monae, where she had a mesh placed 2 month ago, which per patient is because of continued symptoms of chronic lower abdominal pain. She presents today for evaluation of epigastric pain, which she states is in the location of her previous hernia, which I assume was her hiatal hernia. She states that for the last 4 days she has had epigastric pain in that area, nausea but no vomiting. She admits to regular bowel movements, but denies any hematochezia, melena, acholic stool or diarrhea. She states that when she discussed this with Dr. Monae's office they recommended that she be evaluated at [facility] where she had her Molly performed, however because of the current COVID scenario she states that no one is traveling to [facility] and would like to be referred to our surgeons here. She states that she is presenting now for evaluation of the current epigastric pain. Patient has no other complaints at this time. No other acute changes. She denies alcohol intake, history of pancreatitis or other abnormalities. She still does have her gallbladder. She denies pertinent family history. Related Data Home Medications Medication Instructions Recorded Confirmed cyclobenzaprine 10 mg PO BID 02/14/18 05/02/19 ibuprofen [IBU] 600 mg PO QID PRN #60 tab 09/24/18 05/02/19 bisacodyl 5 mg tablet 5 mg PO BID #60 tab 10/27/18 05/02/19 albuterol sulfate [ProAir HFA] See Rx Instructions .ROUTE .COMPLEX 04/09/19 05/02/19 gabapentin 300 mg PO DAILY 04/09/19 05/02/19 oxycodone 5 mg PO BID PRN #7 cap 04/09/19 05/02/19 pantoprazole [Protonix] 40 mg PO DAILY 04/09/19 05/02/19 promethazine 25 mg PO Q12H PRN 04/09/19 05/02/19 dicyclomine 20 mg PO BID #20 tab 05/02/19 potassium chloride 20 meq PO DAILY #5 tab 05/02/19 Previous Rx's Medication Instructions Recorded ibuprofen [IBU] 600 mg PO QID PRN #60 tab 09/24/18 bisacodyl 5 mg tablet 5 mg PO BID #60 tab 10/27/18 oxycodone 5 mg PO BID PRN #7 cap 04/09/19 dicyclomine 20 mg PO BID #20 tab 05/02/19 potassium chloride 20 meq PO DAILY #5 tab 05/02/19 Allergies Allergy/AdvReac Type Severity Reaction Status Date / Time lisinopril AdvReac Mild cough Unverified 04/09/19 11:52 General CLIFFORD: 3 Review of Systems All systems reviewed & are unremarkable except as noted in HPI and below PFSH Medical History Abdominal hernia (Acute) just above umbilicus Abdominal pain (Chronic) chronic RLQ pain that did not improve with ureteroscopy. LUQ pain. W/U at [facility]. Pt thinks that she has hiatal hernia. No evidence on imaging studies. Asthma (Chronic) stable. no exacerbations for 1 yr. 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 Chronic back pain (Chronic) Diarrhea due to drug (Acute) GERD (gastroesophageal reflux disease) (Chronic) Hematuria (Acute) Hiatal hernia (Chronic) Hypertension (Chronic) IBS (irritable bowel syndrome) (Chronic) Insomnia (Acute) Postoperative seroma (Acute) Prediabetes (Acute) Recurrent umbilical hernia with incarceration (Acute) Tobacco use (Chronic) Surgical History bone spur R foot. (Resolved) History of hernia repair (Chronic) History of hernia surgery (Chronic) Ligation of fallopian tube (Chronic) Status post Molly fundoplication (Acute) Tooth extraction (Resolved) Social History Smoking/Tobacco Use Status: Current every day Tobacco Type: cigarettes Alcohol Intake: never Drug use: Never Substance use type: does not use Do you feel safe at home: Yes Do you feel safe in your relationship?: Yes History History Para 0 Hx # Term Pregnancies Multiple births Hx # Pregnancies Ectopic pregnancies AB induced Hx Number of Living Children AB spontaneous Exam Narrative Exam Narrative: 1.Const: Well-nourished, Well-developed, appearing stated age 2.Eyes: PERRL, no conjunctival injection, and symmetrical lids. 3.ENT: Atraumatic external nose and ears. Moist MM. Neck: Symmetric, trachea midline, No thyromegaly. 4.CVS: +S1/S2, No murmurs or gallops. Peripheral pulses 2+ and equal in all extremities. Brisk capillary refill in all extremities. 5.RESP: Unlabored respiratory effort. Clear to auscultation bilaterally. No wheezes rales or rhonchi 6.GI: Soft, Nondistended, No hepatosplenomegaly. No guarding or rebound. Mild epigastric tenderness is present, negative Gonzalez sign, no pain at McBurney's point. Bowel sounds are present throughout. Questionable minimal rectus diastases, but no evidence of clear ventral hernia. No warm red or firm masses. 7.MSK: Normocephalic/Atraumatic, Extremities w/o deformity or ttp No cyanosis or clubbing, Normal movement of all extremities 8.Skin: Warm, Dry. No rashes or lesions. 9.Neuro: cupola melter II-XII grossly intact. Sensation grossly intact, no focal neurologic deficits. 10.Psych: (AAO) x3. Appropriate mood and affect
[2019-05-02 09:42] VITALS: BP 131/83; PULSE 105; RESP 16; TEMP 36.6; O2SAT 97
--- NOTE | 2019-05-02 09:45 | DI.RAD_ITS ---
EXAM: XR ABDOMEN FLAT UPRIGHT CLINICAL HISTORY: epigastric pain TECHNIQUE: COMPARISON: ABDOMEN FLAT PLATE from 07/22/2017 FINDINGS: Three views were obtained. Bowel gas pattern is within normal limits. No free intraperitoneal air s een. There appears to be a hiatal hernia. No gross organomegaly. IMPRESSION: No evidence of acute process.
[2019-05-02 09:49] VITALS: RESP 16
--- NOTE | 2019-05-02 10:00 | DI.US_ITS ---
EXAM: US ABDOMEN LIMITED CLINICAL HISTORY: epigastric and RUQ pain TECHNIQUE: Ultrasound performed using standard protocol. COMPARISON: No exams were available for comparison FINDINGS: Abdominal ultrasound was performed according to the usual protocol. Visualized liver parenchyma is n ormal in appearance. There is no evidence of cholelithiasis or gallbladder wall thickening. Negativ e sonographic Gonzalez sign noted. There is no biliary dilatation. Pancreas appears intact as visuali zed. Right kidney is unremarkable in appearance with no hydronephrosis or nephrolithiasis. Abdomina l aorta nonvisualized. IVC of normal diameter. IMPRESSION: Negative abdominal ultrasound. No evidence of cholelithiasis. DATA REPOSITORY:
[2019-05-02 10:19] LABS: Lactate 1.6 mmol/L (0.6-1.4)
[2019-05-02] MEDS: Dicyclomine 20 MG TAB PO (10:19)
[2019-05-02] MEDS: Ondansetron 4 MG/2 ML VIAL IVP (10:20)
[2019-05-02] MEDS: ACETAMINOPHEN 1,000 MG/100 ML BTL 400 MG IVPB (10:20)
[2019-05-02] MEDS: Normal Saline 1,000 ML 1000 ML IV (10:20)
[2019-05-02 10:21] LABS: Abs Immature Grans 0.03 k/cumm (0.0-0.09); Absolute Basophil Count 0.05 k/cumm (0.0-0.2); Absolute Eosinophil Count 0.12 k/cumm (0.0-0.7); Absolute Lymphocyte Count 2.19 k/cumm (1.2-3.4); Absolute Monocyte Count 0.88 k/cumm (0.11-0.7); Basophils % 0.5; Eosinophils % 1.2; HCT 33.4 % (36.0-46.0); HGB 10.1 g/dL (12.0-15.5); Immature Grans % 0.3 %; Lymphocytes % 22.4; Mean Corp. HGB Concentration 30.2 g/dL (32.0-36.0); Mean Corpuscular Volume 66.1 fL (80-95); Mean Platelet Volume 9.9 fL (8.0-11.0); Neutrophils % 66.6; Platelet Count 451 x1000/uL (130-400); RBC 5.05 m/cumm (4.00-5.20); RBC Distribution Width 19.4 % (11.7-14.6); White Blood Cell Count 9.77 k/cumm (4.4-10.8)
[2019-05-02 10:34] LABS: Prothrombin Time 9.9 sec (9.3-11.0)
[2019-05-02 10:42] LABS: ALT 14 U/L (14-59); AST 12 U/L (15-37); Albumin 3.7 g/dL (3.4-5.0); Alkaline Phosphatase 92 U/L (46-116); BUN 14 mg/dL (7-18); Bilirubin, Total 0.2 mg/dL (0.2-1.0); CREATININE 0.89 mg/dL (0.55-1.02); Calcium 8.9 mg/dL (8.5-10.1); Chloride 104 mmol/L (98-107); Glucose 132 mg/dL (74-106); Lipase 78 U/L (73-393); Sodium 140 mmol/L (136-145); Total Protein 7.3 g/dL (6.4-8.2)
[2019-05-02 10:46] LABS: Anisocytosis 1+; Diff Comment RBC Morph Reviewed; Microcytosis 1+; Poikilocytes 1+
[2019-05-02 11:55] LABS: Bilirubin Negative (Negative); Blood Negative (Negative); Clarity Clear (Clear); Glucose Negative (Negative); Ketones Negative (Negative); Leukocyte Esterase Negative (Negative); Nitrite Negative (Negative); Specific Gravity 1.025 (1.005-1.025); Urobilinogen 0.2 EU/dL (Up TO 0.2)
--- NOTE | 2019-05-02 11:57 | NUR.NOTE ---
Referral faxed to surgical assoc. [phone]
[2019-05-02] MEDS: Potassium Chloride 20 MEQ TABCR 40 MEQ PO (12:13)
[2019-05-02 12:20] VITALS: BP 131/78; PULSE 78; RESP 20; TEMP 37.1; O2SAT 98
== END 2019-05-02 12:20 | disposition home or self-care (01) ==
PROVIDERS: Emergency Provider Student in an Organized Health Care Education/Training Program; PCP Family Medicine
DX: R10.13 Epigastric pain (principal); R11.0 Nausea; E87.6 Hypokalemia
CPT/HCPCS: 80053; 83690; 96361; 96365; 96366; 96375; 99285; 74019; 76705; 81003; 83605; 85025; 85610; 85730; 99284; J0131; J2405

== ENCOUNTER 2019-05-09 09:33 | Emergency (ER) | payer MEDICARE, MEDICAID, SELFPAY ==
[2019-05-09 09:41] VITALS: BP 147/79; PULSE 127; RESP 16; TEMP 36.6; O2SAT 97
--- NOTE | 2019-05-09 09:51 | DI.RAD_ITS ---
EXAM: XR LUMBAR SPINE COMPLETE CLINICAL HISTORY: Fall. TECHNIQUE: 2D digital imaging was performed. COMPARISON: ABDOMEN FLAT PLATE from 07/22/2017 XR ABDOMEN FLAT UPRIGHT from 05/02/2019 FINDINGS: BONES: No fracture or destructive lesion. Vertebral bodies are unremarkable. No facet hypertrophy alexandra ntified. DISKS: Intervertebral disc spaces are maintained. ALIGNMENT: Lumbar spinal alignment is within normal limits. SOFT TISSUE: Normal. IMPRESSION: Unremarkable radiographs of the lumbar spine. DATA REPOSITORY: [facility] DOSE DELIVERED:
[2019-05-09 09:54] VITALS: RESP 16
--- NOTE | 2019-05-09 09:54 | W.ED.GENAD ---
Discharge Plan Disposition Patient Disposition: HOME Condition: Stable Discharge Details Chief Complaint: Dizzy/Sync Clinical Impression: Lumbar back sprain, Vertigo Primary Care Provider: Talisha Treviño ED Provider: Vandana Amanda Home Meds and New Rx's Prescriptions: New methocarbamol 500 mg tablet 500 mg PO TID PRN (Reason: spasm) Qty: 7 RF: 0 Continued bisacodyl 5 mg tablet 5 mg PO BID Qty: 60 RF: 12 cyclobenzaprine 10 mg Tablet 10 mg PO BID RF: 0 promethazine 25 mg Tablet 25 mg PO Q12H PRNRF: 0 albuterol sulfate [ProAir HFA] 90 mcg/actuation Hfa Aerosol Inhaler See Rx Instructions .ROUTE .COMPLEX RF: 0 pantoprazole [Protonix] 40 mg Tablet,Delayed Release (Dr/Ec) 40 mg PO DAILY RF: 0 gabapentin 300 mg Capsule 300 mg PO DAILY RF: 0 oxycodone 5 mg capsule 5 mg PO BID PRN (Reason: pain) Qty: 7 RF: 0 potassium chloride 20 mEq tablet extended release 20 meq PO DAILY Qty: 5 RF: 0 dicyclomine 20 mg tablet 20 mg PO BID Qty: 20 RF: 0 ibuprofen [IBU] 600 mg tablet 600 mg PO QID PRN (Reason: pain) Qty: 60 RF: 4 Discharge Instructions Instructions: Vertigo (ED), Lower Back Exercises (ED) Additional Instructions: Follow up with primary care provider in 3-5 days. Return to ED sooner if any worsening or concerns. Increase oral fluids. Please take Tylenol or Ibuprofen with food every 4-6 hours as needed for pain and swelling. Take medications as directed. Referrals: Talisha Treviño [Primary Care Provider] - Medical Decision Making 39-year-old female with a history of abdominal pain, abdominal hernia, asthma and chronic back pain presents after an episode of dizziness this morning where she reports that she fell on a tile floor. She denies hitting her head or any LOC. She is complaining of right lower paraspinous tenderness with palpation. She also has other multiple complaints including midepigastric abdominal pain from hernia which she has not followed up for as of yet and some right lower jaw/gum tenderness. She states that Flexeril is not working for back pain. She does have some mild tenderness to palpation of her midepigastrium, she has no teeth noted on her right lower gumline no area of fluctuance or swelling. At this time initial work-up includes CBC, CMP, lipase, normal saline, Zofran, Toradol, L-spine x-ray and urinalysis. FINDINGS: BONES: No fracture or destructive lesion. Vertebral bodies are unremarkable. No facet hypertrophy identified. DISKS: Intervertebral disc spaces are maintained. ALIGNMENT: Lumbar spinal alignment is within normal limits. SOFT TISSUE: Normal. IMPRESSION: Unremarkable radiographs of the lumbar spine. 1100: Initial work-up is within normal limits discussed results with patient. She is complaining of muscle spasms and is requesting a Valium. Valium p.o. 2 mg ordered. I viewed the x-rays and they look within normal limits at this time. Plan is to discharge patient home with additional muscle relaxer methocarbamol 500 mg 3 times a day as needed and instructed to follow-up with PCP. Differential Diagnosis includes: Occult fracture, Syncope, Lumbago HPI General Mode of arrival: ambulatory. Date/Time Provider Initiated Documentation: 05/09/19 09:37. Limitations to Documentation: no limitations. Information obtained by: patient. HPI Narrative: 39-year-old female with a history of abdominal pain, abdominal hernia, asthma and chronic back pain presents after an episode of dizziness this morning where she reports that she fell on a tile floor. She denies hitting her head or any LOC. She is complaining of right lower paraspinous tenderness with palpation. She also has other multiple complaints including midepigastric abdominal pain from hernia which she has not followed up for as of yet and some right lower jaw/gum tenderness. She states that Flexeril is not working for back pain. She does have some mild tenderness to palpation of her midepigastrium, she has no teeth noted on her right lower gumline no area of fluctuance or swelling. Related Data Home Medications Medication Instructions Recorded Confirmed cyclobenzaprine 10 mg PO BID 02/14/18 05/09/19 ibuprofen [IBU] 600 mg PO QID PRN #60 tab 09/24/18 05/09/19 bisacodyl 5 mg tablet 5 mg PO BID #60 tab 10/27/18 05/09/19 albuterol sulfate [ProAir HFA] See Rx Instructions .ROUTE .COMPLEX 04/09/19 05/09/19 gabapentin 300 mg PO DAILY 04/09/19 05/09/19 oxycodone 5 mg PO BID PRN #7 cap 04/09/19 05/09/19 pantoprazole [Protonix] 40 mg PO DAILY 04/09/19 05/09/19 promethazine 25 mg PO Q12H PRN 04/09/19 05/09/19 dicyclomine 20 mg PO BID #20 tab 05/02/19 05/09/19 potassium chloride 20 meq PO DAILY #5 tab 05/02/19 05/09/19 methocarbamol 500 mg PO TID PRN #7 tab 05/09/19 Previous Rx's Medication Instructions Recorded ibuprofen [IBU] 600 mg PO QID PRN #60 tab 09/24/18 bisacodyl 5 mg tablet 5 mg PO BID #60 tab 10/27/18 oxycodone 5 mg PO BID PRN #7 cap 04/09/19 dicyclomine 20 mg PO BID #20 tab 05/02/19 potassium chloride 20 meq PO DAILY #5 tab 05/02/19 methocarbamol 500 mg PO TID PRN #7 tab 05/09/19 Allergies Allergy/AdvReac Type Severity Reaction Status Date / Time lisinopril AdvReac Mild cough Unverified 05/09/19 09:45 General Stated Complaint: Dizzy/Sync CLIFFORD: 3 Review of Systems Narrative: Constitutional: Negative for weight loss, fever, alert and oriented, well groomed, normal body habitus, appears comfortable. HEENT: Denies headaches, blurry vision, nasal discharge, sore throat, trouble swallowing. Reports right lower gum tenderness, has a history of vertigo. Chest: Denies chest pain, palpitations, irregular rhythm, hypertension. Respiratory: Denies Shortness of breath, cough, hemoptysis. GI: Denies vomiting, constipation. Reports midepigastric abdominal pain, loose stools. Does have a history of hiatal hernia. : Denies dysuria, hematuria, flank pain, rectal bleeding. Neuro: Denies blurry vision, weakness, syncope, headache or facial numbness. Hematologic: Denies easy bruising, intolerance to heat or cold, hair loss. [facility] Medical History Abdominal hernia (Acute) just above umbilicus Abdominal pain (Chronic) chronic RLQ pain that did not improve with ureteroscopy. LUQ pain. W/U at [facility]. Pt thinks that she has hiatal hernia. No evidence on imaging studies. Asthma (Chronic) stable. no exacerbations for 1 yr. 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 Chronic back pain (Chronic) Diarrhea due to drug (Acute) GERD (gastroesophageal reflux disease) (Chronic) Hematuria (Acute) Hiatal hernia (Chronic) Hypertension (Chronic) IBS (irritable bowel syndrome) (Chronic) Insomnia (Acute) Postoperative seroma (Acute) Prediabetes (Acute) Recurrent umbilical hernia with incarceration (Acute) Tobacco use (Chronic) Surgical History bone spur R foot. (Resolved) History of hernia repair (Chronic) History of hernia surgery (Chronic) Ligation of fallopian tube (Chronic) Status post Molly fundoplication (Acute) Tooth extraction (Resolved) Social History Smoking/Tobacco Use Status: Current every day Tobacco Type: cigarettes Alcohol Intake: never Drug use: Never Substance use type: does not use Do you feel safe at home: Yes Do you feel safe in your relationship?: Yes History History Para 0 Hx # Term Pregnancies Multiple births Hx # Pregnancies Ectopic pregnancies AB induced Hx Number of Living Children AB spontaneous Exam Narrative Exam Narrative: Constitutional: Allert and oriented x3. Appears stated age. Normal body habitus. Head: Normocephalic, no trauma. Eyes: Pupils PERRLA, Red reflex noted, EOM's intact. Eyelids symmetrical withour lesions, discharge, or swelling. ENT: Bilateral TM's WNL, External ear normal to inspection, no mastoid TTP, swelling, or erythema, Nasal turbinates WNL, no nasal discharge. Poor dentition, she has absent teeth on her right lower jaw 27 through 32 are missing. No gingival erythema, swelling or area of fluctuance noted posterior pharynx WNL, no exudate. Chest: Tachycardia at 127, normal S1, S2, distal pulses intact. Resp: Lungs clear to auscultation bilaterally, no wheezes, rales, or rhonchi. Abdomen: Soft normal active bowel sounds all 4 quadrants. Mild tenderness to palpation midepigastrium negative Gonzalez sign. No tenderness over McBurney's point. Musculoskeletal: Normal gait, 5/5 strength to all four extremities. She does have right-sided lower paraspinous tenderness to palpation no midline L-spine tenderness or C-spine tenderness. Skin: No suspicious rashes or lesions. Capillary refill less than 2 sec. Neurologic: Cranial nerves II-XII intact. Alert and oriented x 3. DTR's intact. Hematologic/Lymphatic: No ecchymosis, no lymphadenopathy. Course Vital Signs Vital signs: Vital Signs Temperature 36.6 C 05/09/19 09:41 Pulse 127 H 05/09/19 09:41 Respiratory Rate 16 05/09/19 09:41 Blood Pressure 147/79 H 05/09/19 09:41 Pulse Oximetry 97 05/09/19 09:41 Temperature 36.6 C 05/09/19 09:41 Temperature Source Skin 05/09/19 09:41 Pulse 127 H 05/09/19 09:41 Respiratory Rate 16 05/09/19 09:41 Respiratory Effort Non-Labored 05/09/19 09:41 Blood Pressure 147/79 H 05/09/19 09:41 Blood Pressure Position Sitting 05/09/19 09:41 Pulse Oximetry 97 05/09/19 09:41 Pain Level 10 05/09/19 09:41
[2019-05-09] MEDS: Normal Saline 1,000 ML 1000 ML IV (10:19)
[2019-05-09 10:20] LABS: Bilirubin Negative (Negative); Blood Negative (Negative); Clarity Cloudy (Clear); Glucose Negative (Negative); Ketones Negative (Negative); Leukocyte Esterase Trace (Negative); Nitrite Negative (Negative); Specific Gravity >= 1.030 (1.005-1.025); Urobilinogen 0.2 EU/dL (Up TO 0.2)
[2019-05-09] MEDS: Ondansetron 4 MG/2 ML VIAL IVP (10:20)
[2019-05-09] MEDS: Ketorolac 15 MG/ML VIAL IVP (10:21)
[2019-05-09 10:27] LABS: Abs Immature Grans 0.02 k/cumm (0.0-0.09); Absolute Basophil Count 0.05 k/cumm (0.0-0.2); Absolute Eosinophil Count 0.12 k/cumm (0.0-0.7); Absolute Lymphocyte Count 2.28 k/cumm (1.2-3.4); Absolute Monocyte Count 0.89 k/cumm (0.11-0.7); Absolute Neutrophil Count 4.81 k/cumm (1.2-6.7); Basophils % 0.6; Eosinophils % 1.5; HCT 34.8 % (36.0-46.0); HGB 10.6 g/dL (12.0-15.5); Immature Grans % 0.2 %; Lymphocytes % 27.9; Mean Corp. HGB Concentration 30.5 g/dL (32.0-36.0); Mean Corpuscular Volume 65.7 fL (80-95); Monocytes % 10.9; Neutrophils % 58.9; Platelet Count 476 x1000/uL (130-400); RBC Distribution Width 20.7 % (11.7-14.6); White Blood Cell Count 8.17 k/cumm (4.4-10.8)
[2019-05-09 10:36] LABS: Lipase 105 U/L (73-393)
[2019-05-09 10:40] LABS: ALT 18 U/L (14-59); AST 11 U/L (15-37); Alkaline Phosphatase 99 U/L (46-116); Anion Gap 12.1 mmol/L (3-11); BUN 13 mg/dL (7-18); Bilirubin, Total 0.3 mg/dL (0.2-1.0); CO2 21.9 mmol/L (21.0-32.0); CREATININE 0.84 mg/dL (0.55-1.02); Calcium 9.1 mg/dL (8.5-10.1); Chloride 106 mmol/L (98-107); Glucose 144 mg/dL (74-106); Potassium 3.8 mmol/L (3.5-5.1); Sodium 140 mmol/L (136-145); Total Protein 7.6 g/dL (6.4-8.2)
[2019-05-09 10:51] LABS: C & S Indicated? No/Sq. Contamination; Epithelial Cells Many HPF (Negative)
[2019-05-09 11:08] VITALS: BP 132/70; PULSE 86; RESP 20; TEMP 37; O2SAT 99
[2019-05-09] MEDS: diazePAM 2 MG TAB PO (11:09)
[2019-05-09 11:52] VITALS: BP 132/70; PULSE 86; RESP 20; TEMP 37; O2SAT 99
== END 2019-05-09 11:55 | disposition home or self-care (01) ==
PROVIDERS: Emergency Provider Registered Nurse Emergency; PCP Family Medicine
DX: S33.5XXA Sprain of ligaments of lumbar spine, initial encounter (principal); W19.XXXA Unspecified fall, initial encounter; R42 Dizziness and giddiness; R68.84 Jaw pain; R10.13 Epigastric pain; I10 Essential (primary) hypertension
CPT/HCPCS: 36415; 80053; 83690; 96361; 96374; 96375; 99284; 72110; 81003; 81015; 85025; J1885; J2405

== ENCOUNTER 2019-05-21 14:55 | Emergency (ER) | payer MEDICARE, MEDICAID, SELFPAY ==
--- NOTE | 2019-05-21 15:00 | DI.US_ITS ---
EXAM: US ABDOMEN CLINICAL HISTORY: RUQ abdominal pain TECHNIQUE: Ultrasound performed using standard protocol. COMPARISON: US ABDOMEN LIMITED from 05/02/2019 FINDINGS: Abdominal ultrasound was performed according to the usual protocol. Gallbladder is contracted but th ere is no evidence of cholelithiasis. No biliary dilatation seen. Pancreas appears intact as visual ized. Kidneys appear normal. No evidence of urinary tract obstruction or nephrolithiasis. Liver and spleen appear normal. No hepatosplenomegaly. Abdominal aorta is of normal diameter as visualized. IMPRESSION: Negative abdominal ultrasound. DATA REPOSITORY:
[2019-05-21 15:01] VITALS: BP 144/97; PULSE 105; TEMP 37.1; O2SAT 99
--- NOTE | 2019-05-21 15:14 | W.ED.GENAD ---
Discharge Plan Disposition Patient Disposition: HOME Condition: Stable Discharge Details Chief Complaint: Abd Prob Clinical Impression: Abdominal pain Primary Care Provider: Talisha Treviño ED Provider: Vandana Amanda Home Meds and New Rx's Prescriptions: No Action bisacodyl 5 mg tablet 5 mg PO BID Qty: 60 RF: 12 cyclobenzaprine 10 mg Tablet 10 mg PO BID RF: 0 promethazine 25 mg Tablet 25 mg PO Q12H PRNRF: 0 pantoprazole [Protonix] 40 mg Tablet,Delayed Release (Dr/Ec) 40 mg PO DAILY RF: 0 potassium chloride 20 mEq tablet extended release 20 meq PO DAILY Qty: 5 RF: 0 ibuprofen [IBU] 600 mg tablet 800 mg PO BID RF: 0 Discharge Instructions Instructions: Abdominal Pain (ED) Additional Instructions: Continue your daily medications as discussed. Follow-up with your primary care doctor as discussed. Your ultrasound today is unremarkable. Follow-up with your outpatient testing as planned. Your labs are unchanged from your baseline and not alarming at this time. Return to the emergency room for any acute concerns, worsening or alarming symptoms sooner if needed Discharge Data Discharge Date/Time-TO BE ENTERED AT DEPARTURE: 05/21/19 18:31 Medical Decision Making <Vandana Amanda - Last Filed: 05/22/19 08:01> 39-year-old female presents with right upper quadrant abdominal pain which is been ongoing for 2 months. Patient has a history of hiatal hernia and hernia repair. She has had multiple CTs done in 2019 and reports that she supposed to follow-up at [facility]. She was seen last week for back pain and dizziness and a fall. She has a history of asthma, GERD, irritable bowel syndrome, and she is a smoker. Initial work-up ordered including labs, UA, and ultrasound to evaluate gallbladder. Normal saline and Bentyl p.o. ordered. Care is to be signed out to oncoming provider TELLY Velasquez pending lab work and ultrasound result. If normal ultrasound and labs expected discharge is to be discharged home with follow-up with GI or PCP as previously arranged. <TELLY Chapman - Last Filed: 05/22/19 21:55> This a 39-year-old patient who is signed out to me pending ultrasound of her right upper quadrant for concern of cholecystitis. Patient had reported abdominal pain for the last several months. Patient reports she has had multiple evaluations for the abdominal complaints over the last several months including CTs. Patient reports CT imaging is revealed no acute etiology of her pain. Patient has a plan to follow-up as an outpatient for endoscopy and colonoscopy by her description, patient is somewhat vague in her responses to my questions. I have tried to focus her discussion. Patient ultimately does report she has had multiple work-ups in the emergency room as well as has seen her outpatient providers for similar complaints of abdominal pain. Again patient was signed out pending ultrasound which is unremarkable for evidence of cholecystitis at this time. Ultrasound reveals a contracted gallbladder and per radiology asst patient had eaten prior to imaging which explains contracted finding. Patient's labs today reveal no significant leukocytosis. H&H are noted to be 10.4 and 34.1 respectively this is typical of this patient's labs. Patient's electrolytes within normal limits, kidney function normal, glucose noted to be 158 patient's LFTs reviewed and normal. Patient's lipase normal. Patient advised of her results this evening. Patient feels comfortable discharge home at this time. I recommended she continue to pursue outpatient follow-up with her primary care doctors and additional outpatient testing which seemed has been arranged or is planned with PCPs. Patient's vital signs reviewed and are normal. I was not asked to reevaluate this patient and did not specifically repeat the exam however patient does not feel comfortable in bed during our conversation and does feel comfortable discharge home at this time. The patient was stable and requested discharge. Prior to discharge, my usual and customary return precautions were reviewed with the patient - this included follow-up instructions and reasons to return to the Emergency Department if conditions worsens, does not improve as expected, or other new concerns arise. HPI <Vandana Amanda - Last Filed: 05/22/19 08:01> General Mode of arrival: ambulatory. Date/Time Provider Initiated Documentation: 05/21/19 15:00. Limitations to Documentation: no limitations. Information obtained by: patient. HPI Narrative: 39-year-old female presents with right upper quadrant abdominal pain which is been ongoing for 2 months. Patient has a history of hiatal hernia and hernia repair. She has had multiple CTs done in 2019 and reports that she supposed to follow-up at [facility]. She was seen last week for back pain and dizziness and a fall. She has a history of asthma, GERD, irritable bowel syndrome, and she is a smoker. Related Data Home Medications Medication Instructions Recorded Confirmed cyclobenzaprine 10 mg PO BID 02/14/18 05/21/19 bisacodyl 5 mg tablet 5 mg PO BID #60 tab 10/27/18 05/21/19 pantoprazole [Protonix] 40 mg PO DAILY 04/09/19 05/21/19 promethazine 25 mg PO Q12H PRN 04/09/19 05/21/19 potassium chloride 20 meq PO DAILY #5 tab 05/02/19 05/21/19 ibuprofen [IBU] 800 mg PO BID 05/21/19 05/21/19 Previous Rx's Medication Instructions Recorded bisacodyl 5 mg tablet 5 mg PO BID #60 tab 10/27/18 potassium chloride 20 meq PO DAILY #5 tab 05/02/19 Allergies Allergy/AdvReac Type Severity Reaction Status Date / Time lisinopril AdvReac Mild cough Unverified 05/21/19 15:07 General Stated Complaint: Abd Prob CLIFFORD: 3 Review of Systems <Vandana Amanda - Last Filed: 05/22/19 08:01> Narrative: Constitutional: Negative for weight loss, alert and oriented, well groomed, normal body habitus, appears comfortable. HEENT: Denies trauma, headaches, blurry vision, nasal discharge, sore throat, trouble swallowing. Chest: Denies chest pain, palpitations, irregular rhythm, hypertension. Respiratory: Denies Shortness of breath, cough, hemoptysis. GI: Denies nausea, vomiting, diarrhea, constipation. Positive right upper quadrant abdominal pain. : Denies dysuria, hematuria, flank pain, rectal bleeding. Neuro: Denies dizziness, blurry vision, weakness, syncope, headache or facial numbness. Hematologic: Denies easy bruising, intolerance to heat or cold, hair loss. [facility] <Vandana Amanda - Last Filed: 05/22/19 08:01> Medical History Abdominal hernia (Acute) just above umbilicus Abdominal pain (Chronic) chronic RLQ pain that did not improve with ureteroscopy. LUQ pain. W/U at [facility]. Pt thinks that she has hiatal hernia. No evidence on imaging studies. Asthma (Chronic) stable. no exacerbations for 1 yr. 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 Chronic back pain (Chronic) Diarrhea due to drug (Acute) GERD (gastroesophageal reflux disease) (Chronic) Hematuria (Acute) Hiatal hernia (Chronic) Hypertension (Chronic) IBS (irritable bowel syndrome) (Chronic) Insomnia (Acute) Postoperative seroma (Acute) Prediabetes (Acute) Recurrent umbilical hernia with incarceration (Acute) Tobacco use (Chronic) Surgical History bone spur R foot. (Resolved) History of hernia repair (Chronic) History of hernia surgery (Chronic) Ligation of fallopian tube (Chronic) Status post Molly fundoplication (Acute) Tooth extraction (Resolved) Social History Smoking/Tobacco Use Status: Current every day Tobacco Type: cigarettes Alcohol Intake: never Drug use: Never Substance use type: does not use Do you feel safe at home: Yes Do you feel safe in your relationship?: Yes History History Para 0 Hx # Term Pregnancies Multiple births Hx # Pregnancies Ectopic pregnancies AB induced Hx Number of Living Children AB spontaneous Exam <Vandana Amanda - Last Filed: 05/22/19 08:01> Narrative Exam Narrative: Constitutional: Alert and oriented x3. Appears stated age. Normal body habitus. Head: Normocephalic, no trauma. Eyes: Pupils PERRLA, Red reflex noted, EOM's intact. Eyelids symmetrical without lesions, discharge, or swelling. ENT: Bilateral TM's WNL, External ear normal to inspection, no mastoid TTP, swelling, or erythema, Nasal turbinates WNL, no nasal discharge. Normal dentition, Posterior pharynx WNL, no exudate. Chest: RRR, Normal S1, S2, distal pulses intact. Resp: Lungs clear to auscultation bilaterally, no wheezes, rales, or rhonchi. Abdomen: Right upper quadrant tender to palpation. Abdomen is soft. Musculoskeletal: Normal gait, 5/5 strength to all four extremities. Skin: No suspicious rashes or lesions. Capillary refill less than 2 sec. Neurologic: Cranial nerves II-XII intact. Alert and oriented x 3. DTR's intact. Hematologic/Lymphatic: No ecchymosis, no lymphadenopathy. Course <Vandana Amanda - Last Filed: 05/22/19 08:01> Vital Signs Vital signs: Vital Signs Temperature 37.1 C 05/21/19 15:01 Pulse 105 H 05/21/19 15:01 Blood Pressure 144/97 H 05/21/19 15:01 Pulse Oximetry 99 05/21/19 15:01 Temperature 37.1 C 05/21/19 15:01 Temperature Source Skin 05/21/19 15:01 Pulse 105 H 05/21/19 15:01 Blood Pressure 144/97 H 05/21/19 15:01 Blood Pressure Position Sitting 05/21/19 15:01 Pulse Oximetry 99 05/21/19 15:01 Oxygen Delivery Method Room Air 05/21/19 15:01 Oxygen Flow Rate 0 05/21/19 15:01 Pain Level 8 05/21/19 15:01 Comment 05/21/19 15:01
[2019-05-21 16:22] LABS: ALT 19 U/L (14-59); AST 13 U/L (15-37); Alkaline Phosphatase 114 U/L (46-116); Anion Gap 10.6 mmol/L (3-11); BUN 14 mg/dL (7-18); Bilirubin, Total 0.1 mg/dL (0.2-1.0); CO2 25.4 mmol/L (21.0-32.0); CREATININE 0.99 mg/dL (0.55-1.02); Calcium 9.3 mg/dL (8.5-10.1); Chloride 105 mmol/L (98-107); Glucose 158 mg/dL (74-106); Lipase 99 U/L (73-393); Potassium 3.6 mmol/L (3.5-5.1); Sodium 141 mmol/L (136-145); Total Protein 7.7 g/dL (6.4-8.2)
[2019-05-21] MEDS: Dicyclomine 10 MG CAP PO (16:26)
--- NOTE | 2019-05-21 16:30 | DI.VRAD_ITS ---
PROCEDURE INFORMATION: Exam: US Abdomen Complete Exam date and time: 05/21/2019 4:14 PM Age: 39 years old Clinical indication: Abdominal pain; Localized; Right upper quadrant (ruq) TECHNIQUE: Imaging protocol: Real-time ultrasound of the abdomen with image documentation. COMPARISON: US RENAL ULTRASOUND(P) 08/05/2017 8:58 AM FINDINGS: Liver: Normal. No mass. Gallbladder: Contracted. Common bile duct: Normal. No stones. No dilation. Pancreas: Visualized pancreas is unremarkable. Right kidney: Normal. No mass. No hydronephrosis. Left kidney: Normal. No mass. No hydronephrosis. Spleen: Normal. No splenomegaly. Aorta: Normal. No aneurysm. Inferior vena cava: Normal. IMPRESSION: No acute findings. Dictated and Authenticated by: Da Duckworth MD. Ordering:AMADA Ross MD
[2019-05-21 16:58] LABS: Abs Immature Grans 0.02 k/cumm (0.0-0.09); Absolute Basophil Count 0.06 k/cumm (0.0-0.2); Absolute Eosinophil Count 0.15 k/cumm (0.0-0.7); Absolute Lymphocyte Count 2.47 k/cumm (1.2-3.4); Absolute Monocyte Count 0.71 k/cumm (0.11-0.7); Absolute Neutrophil Count 4.88 k/cumm (1.2-6.7); Basophils % 0.7; Eosinophils % 1.8; HCT 34.1 % (36.0-46.0); HGB 10.4 g/dL (12.0-15.5); Immature Grans % 0.2 %; Lymphocytes % 29.8; Mean Corp. HGB Concentration 30.5 g/dL (32.0-36.0); Mean Corpuscular Hemoglobin 20.4 pg (27.0-33.0); Mean Corpuscular Volume 66.9 fL (80-95); Mean Platelet Volume 9.8 fL (8.0-11.0); Monocytes % 8.6; Neutrophils % 58.9; Platelet Count 516 x1000/uL (130-400); RBC Distribution Width 20.2 % (11.7-14.6); White Blood Cell Count 8.29 k/cumm (4.4-10.8)
[2019-05-21 17:11] LABS: Bilirubin Negative (Negative); Blood Trace-intact (Negative); Clarity Clear (Clear); Glucose Negative (Negative); Ketones Negative (Negative); Leukocyte Esterase Negative (Negative); Nitrite Negative (Negative); Specific Gravity 1.025 (1.005-1.025); Urobilinogen 0.2 EU/dL (Up TO 0.2)
[2019-05-21 17:15] LABS: Anisocytosis 2+; Hypochromasia 2+; Microcytosis 2+
[2019-05-21 17:32] VITALS: BP 126/77; PULSE 84; RESP 18; TEMP 37; O2SAT 97
[2019-05-21 17:50] LABS: Bacteria Negative HPF (Negative); C & S Indicated? No; Casts Negative LPF (Negative); Crystals Negative HPF (Negative); Epithelial Cells Many HPF (Negative); Mucus Negative (Negative); Other Cells Negative (Negative); RBC Negative HPF (0-2); WBC 0-2 HPF (0-5)
[2019-05-21 18:17] VITALS: BP 132/86; PULSE 90; TEMP 37; O2SAT 98
== END 2019-05-21 18:31 | disposition home or self-care (01) ==
PROVIDERS: Emergency Provider Registered Nurse Emergency; PCP Family Medicine
DX: R10.11 Right upper quadrant pain (principal); Z87.19 Personal history of other diseases of the digestive system; I10 Essential (primary) hypertension
CPT/HCPCS: 80053; 83690; 99284; 76700; 81003; 81015; 85025

== ENCOUNTER → 2019-06-19 14:42 | Outpatient (BNVA) | payer MEDICARE, MEDICAID, SELFPAY | PROVIDERS: PCP Family Medicine; Referring Provider Family Medicine; Visit Provider Urology | DX: R69 Illness, unspecified (principal) ==

== ENCOUNTER 2019-07-12 08:20 | Emergency (ER) | payer MEDICARE, MEDICAID, SELFPAY ==
[2019-07-12 08:30] VITALS: BP 124/69; PULSE 74; TEMP 36.6; O2SAT 96
[2019-07-12 09:10] LABS: Bilirubin Negative (Negative); Blood Negative (Negative); Clarity Clear (Clear); Glucose Negative (Negative); Ketones Negative (Negative); Leukocyte Esterase Negative (Negative); Nitrite Negative (Negative); Specific Gravity >= 1.030 (1.005-1.025)
--- NOTE | 2019-07-12 09:13 | W.ED.GENAD ---
Discharge Plan Disposition Patient Disposition: HOME Condition: Stable Discharge Details Chief Complaint: Urinary Clinical Impression: Candidiasis of vagina Primary Care Provider: Talisha Treviño ED Provider: Lei Hidalgo Home Meds and New Rx's Prescriptions: New fluconazole [Diflucan] 40 mg/mL suspension for reconstitution 150 mg PO DAILY 1 Days Qty: 3.75 RF: 0 Continued bisacodyl 5 mg tablet 5 mg PO BID Qty: 60 RF: 12 cyclobenzaprine 10 mg Tablet 10 mg PO BID RF: 0 promethazine 25 mg Tablet 25 mg PO Q12H PRNRF: 0 potassium chloride 20 mEq tablet extended release 20 meq PO DAILY Qty: 5 RF: 0 ibuprofen [IBU] 600 mg tablet 800 mg PO BID RF: 0 diazepam [Valium] 5 mg Tablet 5 mg PO BID PRNRF: 0 Discharge Instructions Instructions: Yeast Infection (ED) Additional Instructions: At this time you are presumptively being treated for a vaginal yeast infection. Liquid Diflucan x1 dose. Laboratory values are otherwise pending. Please watch for new or worsening symptoms and return to the ER for any concerns. I do recommend that you reach out to your primary care provider tomorrow for prompt outpatient reevaluation, they can also follow your laboratory values and give the results once they have resulted. Medical Decision Making <TELLY Newton - Last Filed: 07/12/19 09:39> 39-year-old female presenting with 2-3-week history of vaginal irritation, discharge, concerned for yeast infection. Reports she has had similar symptoms in the past. She reports that her surgery at [facility] went well on 06-24 and is denying any current abdominal pain, nausea, vomiting. Examination reveals a healthy-appearing 39-year-old female. Abdomen is soft, nontender, surgical incisions appear well healed. Pelvic examination performed with female RN in the room. There are no lesions noted. Scant white discharge, certainly could be consistent with mild yeast infection. Cultures obtained and will obtain urinalysis. Urinalysis without signs of infection. Vaginal swabs pending Patient reports that she needs liquid medication given her recent surgery. Will be given a one-time dose of 150 p.o. Diflucan, liquid. Case was discussed with Dr. Varner who evaluated the patient himself, please see his note Patient was discharged, I subsequently received a call from lab. Apparently there was a single swab missing from the kit and they were unable to run the vaginal path screen swab. Given how well the patient appeared, her evaluation, I do not feel as though the patient needs to be called emergently to return to the ER to have another swab obtained. Medical Records Medical records reviewed: Yes I reviewed the patient's medical records. Lab Data Lab results reviewed: Yes I reviewed the patient's lab results. Lab results narrative: 07/12/19 09:18 Vaginal Vaginitis Screen - Pending Laboratory Tests Range/Units 07/12/19 08:43 Urine Color (Yellow) Yellow Urine Clarity (Clear) Clear Urine pH (5-8) 6.0 Ur Specific [place] (1.005-1.025) >= 1.030 H Urine Protein (Negative) mg/dL Negative Urine Ketones (Negative) mg/dL Negative Urine Blood (Negative) Negative Urine Nitrite (Negative) Negative Urine Bilirubin (Negative) Negative Urine Urobilinogen (Up TO 0.2) EU/dL 1.0 H Ur Leukocyte Esterase (Negative) Negative Urine Glucose (Negative) mg/dL Negative <Fran Varner MD - Last Filed: 07/12/19 09:29> Patient seen, examined, and discussed with TELLY Hidalgo. Abdominal exam benign. I agree with treatment plan as discussed/documented. HPI <TELLY Newton - Last Filed: 07/12/19 09:39> General Mode of arrival: ambulatory. Date/Time Provider Initiated Documentation: 07/12/19 08:20. Limitations to Documentation: no limitations. Information obtained by: patient. HPI Narrative: This is a 39-year-old female presenting to the ER reporting 3-week history of mild vaginal irritation, swelling, white discharge. She reports that she is sexually active with one partner for the past 5 years, does not use protection, but denies history of STD exposure. She reports that her partner is asymptomatic. She reports this feels like previous yeast infections however has not tried any [id number] medication for her symptoms, nor did she bring this up to her primary care provider when she was last seen. Patient denies any vaginal bleeding, dysuria, hematuria, back pain, fevers, nausea, vomiting. The patient reports that she had recent surgery at [facility], the 11th of this month, for Molly fundoplication, which went well. She reports that the surgical site is still minimally uncomfortable. Patient has had tubal ligation. She has no additional questions or concerns. She denies any change in bowel or bladder function Related Data Home Medications Medication Instructions Recorded Confirmed cyclobenzaprine 10 mg PO BID 02/14/18 07/12/19 bisacodyl 5 mg tablet 5 mg PO BID #60 tab 10/27/18 07/12/19 promethazine 25 mg PO Q12H PRN 04/09/19 07/12/19 potassium chloride 20 meq PO DAILY #5 tab 05/02/19 07/12/19 ibuprofen [IBU] 800 mg PO BID 05/21/19 07/12/19 diazepam [Valium] 5 mg PO BID PRN 07/12/19 07/12/19 fluconazole [Diflucan] 150 mg PO DAILY 1 Days #3.75 ml 07/12/19 Previous Rx's Medication Instructions Recorded bisacodyl 5 mg tablet 5 mg PO BID #60 tab 10/27/18 potassium chloride 20 meq PO DAILY #5 tab 05/02/19 fluconazole [Diflucan] 150 mg PO DAILY 1 Days #3.75 ml 07/12/19 Allergies Allergy/AdvReac Type Severity Reaction Status Date / Time lisinopril AdvReac Mild cough Unverified 07/12/19 08:33 General Stated Complaint: Urinary CLIFFORD: 3 Review of Systems <TELLY Newton - Last Filed: 07/12/19 09:39> Constitutional Constitutional: Denies fever(s) Cardiovascular Cardiovascular: Denies chest pain and Denies dyspnea Respiratory Respiratory: Denies cough and Denies dyspnea Gastrointestinal Gastrointestinal: Reports abdominal pain (Status post surgery), Denies nausea and Denies vomiting Genitourinary Genitourinary: Denies abnormal vaginal bleeding, Denies dysuria and Reports vaginal discharge Musculoskeletal Musculoskeletal: Denies back pain Integumentary/Breasts Skin/Breast: Denies rash PFS <TELLY Newton - Last Filed: 07/12/19 09:39> Medical History Abdominal hernia (Acute) just above umbilicus Abdominal pain (Chronic) chronic RLQ pain that did not improve with ureteroscopy. LUQ pain. W/U at [facility]. Pt thinks that she has hiatal hernia. No evidence on imaging studies. Asthma (Chronic) stable. no exacerbations for 1 yr. 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 Chronic back pain (Chronic) Diarrhea due to drug (Acute) GERD (gastroesophageal reflux disease) (Chronic) Hematuria (Acute) Hiatal hernia (Chronic) Hypertension (Chronic) IBS (irritable bowel syndrome) (Chronic) Insomnia (Acute) Postoperative seroma (Acute) Prediabetes (Acute) Recurrent umbilical hernia with incarceration (Acute) Tobacco use (Chronic) Surgical History bone spur R foot. (Resolved) History of hernia repair (Chronic) History of hernia surgery (Chronic) Ligation of fallopian tube (Chronic) Status post Molly fundoplication (Acute) Tooth extraction (Resolved) Social History Smoking/Tobacco Use Status: Current every day Tobacco Type: cigarettes Alcohol Intake: never Drug use: Never Substance use type: does not use Do you feel safe at home: Yes Do you feel safe in your relationship?: Yes History History Para 0 Hx # Term Pregnancies Multiple births Hx # Pregnancies Ectopic pregnancies AB induced Hx Number of Living Children AB spontaneous Exam <TELLY Newton - Last Filed: 07/12/19 09:39> Const General: cooperative, healthy appearing, comfortable and no acute distress Orientation: alert and awake HENMT Head: normal to inspection, normocephalic and atraumatic Mouth: moist mucous membranes Eyes Conjunctivae: conjunctivae normal Neck Neck: normal visual inspection, trachea midline and supple Resp Effort & Inspection: normal respiratory effort and able to speak in complete sentences Auscultation: clear to auscultation bilaterally Cardio Rate: regular rate Rhythm: regular rhythm GI Inspection: incision (Surgical incisions appear well healing, otherwise unremarkable) Palpation: soft, not firm, no guarding, not rigid and nontender Auscultation: normal bowel sounds External Female Exam: normal external appearance ( exam performed with female RN in the room) Speculum Exam - Vagina: normal appearance of the vagina and abnormal vaginal discharge white (Mild) Speculum Exam - Cervix: normal appearance of the cervix Bimanual Exam- Vagina & Uterus: normal bimanual exam and normal palpation Bimanual Exam- Adnexa, other: normal adnexae Back/Spine/Pelvis Back: No back tenderness Skin General skin exam: no rashes or lesions noted Neuro General: patient alert, patient awake, moves all extremities and no focal motor deficits Sensory Exam: no sensory deficits noted Psych Appearance: grossly normal Mental Status: mental status grossly normal Course <TELLY Newton - Last Filed: 07/12/19 09:39> Vital Signs Vital signs: Vital Signs Temperature 36.6 C 07/12/19 08:30 Pulse 74 07/12/19 08:30 Blood Pressure 124/69 07/12/19 08:30 Pulse Oximetry 96 07/12/19 08:30 Temperature 36.6 C 07/12/19 08:30 Temperature Source Oral 07/12/19 08:30 Pulse 74 07/12/19 08:30 Respiratory Effort Non-Labored 07/12/19 08:40 Blood Pressure 124/69 07/12/19 08:30 Blood Pressure Position Sitting 07/12/19 08:30 Pulse Oximetry 96 07/12/19 08:30 Oxygen Delivery Method Room Air 07/12/19 08:30 Oxygen Flow Rate 0 07/12/19 08:30 Pain Level 10 07/12/19 08:30
[2019-07-16 13:18] LABS: Chlamydia Result Negative (Negative); GC Result Negative (Negative)
== END 2019-07-12 09:29 | disposition home or self-care (01) ==
PROVIDERS: Emergency Provider Physician Assistant; PCP Family Medicine
DX: B37.3 Candidiasis of vulva and vagina (principal); I10 Essential (primary) hypertension
CPT/HCPCS: 87491; 87591; 99284; 81003; 87480; 87510; 87660; 99283

== ENCOUNTER 2019-09-02 16:52 | Emergency (ER) | payer MEDICARE, MEDICAID, SELFPAY ==
[2019-09-02 17:01] VITALS: BP 132/103; PULSE 89; RESP 18; TEMP 36.1; O2SAT 98
--- NOTE | 2019-09-02 17:08 | W.ED.GENAD ---
Discharge Plan Disposition Patient Disposition: HOME Condition: Improving Discharge Details Chief Complaint: Abd Prob Clinical Impression: Abdominal pain Primary Care Provider: Talisha Treviño ED Provider: Rama Turner Home Meds and New Rx's Prescriptions: Continued bisacodyl 5 mg tablet 5 mg PO BID Qty: 60 RF: 12 cyclobenzaprine 10 mg Tablet 10 mg PO BID RF: 0 promethazine 25 mg Tablet 25 mg PO Q12H PRNRF: 0 ibuprofen [IBU] 600 mg tablet 800 mg PO BID RF: 0 tizanidine 2 mg Tablet 2 mg PO BID RF: 0 polyethylene glycol 3350 [Miralax] 17 gram Powder In Packet 17 g PO BID RF: 0 citalopram 20 mg Tablet 20 mg PO DAILY RF: 0 albuterol sulfate [Ventolin HFA] 90 mcg/actuation Hfa Aerosol Inhaler 2 puff INHALATION 6XD PRNRF: 0 Discharge Instructions Instructions: Abdominal Pain (ED) Additional Instructions: Drink at least 6 to 8 glasses water daily to stay well-hydrated. Continue your medications as previously prescribed Return for new or worsening symptoms Referrals: Talisha Treviño [Primary Care Provider] - Medical Decision Making This is a 39-year-old female patient who complaints of lower abdominal pain. She has had no fevers she is eating and drinking. Hemodynamically stable. Urine obtained which was negative. IV established and routine labs CBC CMP lipase obtained which were all unremarkable. During the visit patient used the restroom one more time and states she expelled a lot of gas which relieved her symptoms. At this point she feels back to her baseline and states she is stable for discharge to home. As her symptoms have resolved and she feels back at her baseline it is reasonable to discharge her to home with no further evaluation. She was advised to follow-up with her primary care provider. Her hemoglobin was noted at 9.8 which is just below her baseline of 10.1-10.4. Medical Records Medical records reviewed: Yes I reviewed the patient's medical records. Lab Data Lab results reviewed: Yes I reviewed the patient's lab results. Labs: Laboratory Tests Range/Units 09/02/19 09/02/19 09/02/19 17:05 17:30 17:30 WBC (4.4-10.8) k/cumm 10.26 RBC (4.00-5.20) m/cumm 4.66 Hgb (12.0-15.5) g/dL 9.8 L Hct (36.0-46.0) % 31.6 L MCV (80-95) fL 67.8 L MCH (27.0-33.0) pg 21.0 L MCHC (32.0-36.0) g/dL 31.0 L RDW (11.7-14.6) % 20.6 H Plt Count (130-400) x1000/uL 473 H MPV (8.0-11.0) fL 9.5 Immature Gran % % 0.2 Neutrophils % 62.6 Lymphocytes % 25.7 Monocytes % 9.6 Eosinophils % 1.3 Basophils % 0.6 Absolute Neutrophils (1.2-6.7) k/cumm 6.43 Absolute Lymphocytes (1.2-3.4) k/cumm 2.64 Absolute Monocytes (0.11-0.7) k/cumm 0.98 H Absolute Eosinophils (0.0-0.7) k/cumm 0.13 Absolute Basophils (0.0-0.2) k/cumm 0.06 Differential Comment Rbc morph reviewed RBC Morphology See below Anisocytosis 3+ Microcytosis 3+ Sodium (136-145) mmol/L 140 Potassium (3.5-5.1) mmol/L 3.9 Chloride (98-107) mmol/L 107 Carbon Dioxide (21.0-32.0) mmol/L 21.3 Anion Gap (3-11) mmol/L 11.7 H BUN (7-18) mg/dL 13 Creatinine (0.55-1.02) mg/dL 0.74 Estimated GFR/1.73 m2 (mL/min/1.73m2) >= 60.00 Glucose (74-106) mg/dL 97 Calcium (8.5-10.1) mg/dL 8.4 L Magnesium (1.8-2.4) mg/dL 2.2 Total Bilirubin (0.2-1.0) mg/dL 0.2 AST (15-37) U/L 13 L ALT (14-59) U/L 20 Alkaline Phosphatase (46-116) U/L 86 Total Protein (6.4-8.2) g/dL 7.1 Albumin (3.4-5.0) g/dL 3.7 Lipase (73-393) U/L 86 Urine Color (Yellow) Yellow Urine Clarity (Clear) Clear Urine pH (5-8) 6.0 Ur Specific [place] (1.005-1.025) >= 1.030 H Urine Protein (Negative) mg/dL Negative Urine Ketones (Negative) mg/dL Negative Urine Blood (Negative) Negative Urine Nitrite (Negative) Negative Urine Bilirubin (Negative) Negative Urine Urobilinogen (Up TO 0.2) EU/dL 0.2 Ur Leukocyte Esterase (Negative) Negative Urine Glucose (Negative) mg/dL Negative HPI General Mode of arrival: ambulatory. Date/Time Provider Initiated Documentation: 09/02/19 16:57. Limitations to Documentation: no limitations. Information obtained by: patient. HPI Narrative: Patient presents to the emergency department for evaluation of lower abdominal pain and discomfort that has occurred over the past 3 days. She denies any urinary frequency or dysuria. She states her appetite has been diminished. She denies any diarrhea or constipation. She has had no fever Related Data Home Medications Medication Instructions Recorded Confirmed cyclobenzaprine 10 mg PO BID 02/14/18 09/02/19 bisacodyl 5 mg tablet 5 mg PO BID #60 tab 10/27/18 09/02/19 promethazine 25 mg PO Q12H PRN 04/09/19 09/02/19 ibuprofen [IBU] 800 mg PO BID 05/21/19 09/02/19 albuterol sulfate [Ventolin HFA] 2 puff INHALATION 6XD PRN 09/02/19 09/02/19 citalopram 20 mg PO DAILY 09/02/19 09/02/19 polyethylene glycol 3350 [Miralax] 17 g PO BID 09/02/19 09/02/19 tizanidine 2 mg PO BID 09/02/19 09/02/19 Previous Rx's Medication Instructions Recorded bisacodyl 5 mg tablet 5 mg PO BID #60 tab 10/27/18 Allergies Allergy/AdvReac Type Severity Reaction Status Date / Time lisinopril AdvReac Mild cough Unverified 09/02/19 17:08 General Stated Complaint: Abd Prob CLIFFORD: 3 Review of Systems Constitutional Constitutional: Denies fever(s) and Reports poor appetite Eyes Eyes: Denies change in vision Cardiovascular Cardiovascular: Denies chest pain and Denies lightheadedness Respiratory Respiratory: Denies cough Gastrointestinal Gastrointestinal: Reports abdominal pain, Denies melena, Denies hematochezia, Denies constipation, Denies diarrhea, Denies nausea and Denies vomiting Genitourinary Genitourinary: Reports abnormal menses, Denies dyspareunia, Denies dysmenorrhea, Denies dysuria, Denies pelvic pain, Denies sexual dysfunction, Denies urinary urgency, Denies vaginal discharge, Denies vaginal dryness, Denies vaginal odor and Denies vaginal pruritus Musculoskeletal Musculoskeletal: Denies back pain Integumentary/Breasts Skin/Breast: Denies rash Hematologic/Lymphatic Hematologic/Lymphatic: Denies easy bleeding and Denies easy bruising [facility] Medical History Abdominal hernia (Acute) just above umbilicus Abdominal pain (Chronic) chronic RLQ pain that did not improve with ureteroscopy. LUQ pain. W/U at [facility]. Pt thinks that she has hiatal hernia. No evidence on imaging studies. Asthma (Chronic) stable. no exacerbations for 1 yr. 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 Chronic back pain (Chronic) Diarrhea due to drug (Acute) GERD (gastroesophageal reflux disease) (Chronic) Hematuria (Acute) Hiatal hernia (Chronic) Hypertension (Chronic) IBS (irritable bowel syndrome) (Chronic) Insomnia (Acute) Postoperative seroma (Acute) Prediabetes (Acute) Recurrent umbilical hernia with incarceration (Acute) Tobacco use (Chronic) Social History Smoking/Tobacco Use Status: Current every day Tobacco Type: cigarettes Alcohol Intake: never Drug use: Never Substance use type: does not use Do you feel safe at home: Yes Do you feel safe in your relationship?: Yes History History Para 0 Hx # Term Pregnancies Multiple births Hx # Pregnancies Ectopic pregnancies AB induced Hx Number of Living Children AB spontaneous Exam Const General: cooperative, healthy appearing, comfortable and no acute distress Nutritional Appearance: average body habitus Orientation: alert, awake and oriented x3 HENMT Head: normal to inspection, normocephalic and atraumatic Resp Effort & Inspection: normal respiratory effort Auscultation: clear to auscultation bilaterally Cardio Rate: regular rate Rhythm: regular rhythm GI Inspection: normal to inspection and non-distended Palpation: soft, not firm, no guarding, not rigid and tender in the LLQ and in the RLQ Skin General skin exam: no rashes or lesions noted Neuro General: patient alert, patient awake and patient oriented x3 Extrem General: normal to inspection and full ROM
[2019-09-02 17:15] LABS: Bilirubin Negative (Negative); Blood Negative (Negative); Clarity Clear (Clear); Glucose Negative (Negative); Ketones Negative (Negative); Leukocyte Esterase Negative (Negative); Nitrite Negative (Negative); Specific Gravity >= 1.030 (1.005-1.025); Urobilinogen 0.2 EU/dL (Up TO 0.2)
[2019-09-02] MEDS: Normal Saline 1,000 ML 1000 ML IV (17:38)
[2019-09-02 17:57] LABS: Abs Immature Grans 0.02 k/cumm (0.0-0.09); Absolute Basophil Count 0.06 k/cumm (0.0-0.2); Absolute Eosinophil Count 0.13 k/cumm (0.0-0.7); Absolute Lymphocyte Count 2.64 k/cumm (1.2-3.4); Absolute Monocyte Count 0.98 k/cumm (0.11-0.7); Absolute Neutrophil Count 6.43 k/cumm (1.2-6.7); Basophils % 0.6; Eosinophils % 1.3; HCT 31.6 % (36.0-46.0); HGB 9.8 g/dL (12.0-15.5); Immature Grans % 0.2 %; Lymphocytes % 25.7; Mean Corpuscular Volume 67.8 fL (80-95); Mean Platelet Volume 9.5 fL (8.0-11.0); Monocytes % 9.6; Neutrophils % 62.6; Platelet Count 473 x1000/uL (130-400); RBC 4.66 m/cumm (4.00-5.20); RBC Distribution Width 20.6 % (11.7-14.6); White Blood Cell Count 10.26 k/cumm (4.4-10.8)
[2019-09-02 18:09] LABS: ALT 20 U/L (14-59); AST 13 U/L (15-37); Albumin 3.7 g/dL (3.4-5.0); Alkaline Phosphatase 86 U/L (46-116); Anion Gap 11.7 mmol/L (3-11); BUN 13 mg/dL (7-18); Bilirubin, Total 0.2 mg/dL (0.2-1.0); CO2 21.3 mmol/L (21.0-32.0); CREATININE 0.74 mg/dL (0.55-1.02); Calcium 8.4 mg/dL (8.5-10.1); Chloride 107 mmol/L (98-107); Glucose 97 mg/dL (74-106); Lipase 86 U/L (73-393); Magnesium 2.2 mg/dL (1.8-2.4); Potassium 3.9 mmol/L (3.5-5.1); Sodium 140 mmol/L (136-145); Total Protein 7.1 g/dL (6.4-8.2)
[2019-09-02 18:40] LABS: Anisocytosis 3+; Diff Comment RBC Morph Reviewed; Microcytosis 3+
[2019-09-02 19:00] VITALS: BP 143/81; PULSE 78; RESP 16; O2SAT 96
== END 2019-09-02 19:15 | disposition home or self-care (01) ==
PROVIDERS: Emergency Provider Nurse Practitioner Acute Care; PCP Family Medicine
DX: R10.30 Lower abdominal pain, unspecified (principal); I10 Essential (primary) hypertension
CPT/HCPCS: 36415; 80053; 81025; 83690; 96360; 99284; 81003; 83735; 85025; 99283

== ENCOUNTER 2019-11-05 18:25 | Emergency (ER) | payer MEDICARE, MEDICAID, SELFPAY ==
--- NOTE | 2019-11-05 18:30 | DI.RAD_ITS ---
EXAM: XR KNEE RT 3V AP,LAT,HAZEL CLINICAL HISTORY: R anterior knee pain. TECHNIQUE: 2D digital imaging was performed. COMPARISON: No exams were available for comparison FINDINGS: BONES: No acute fracture is present. No bony destructive lesion is seen. JOINTS: The knee is normally aligned. No joint effusion is seen. SOFT TISSUE: Normal. IMPRESSION: Unremarkable radiographs of the right knee. DATA REPOSITORY: RADIATION DOSE DELIVERED:
[2019-11-05 18:31] VITALS: BP 167/83; PULSE 75; RESP 18; TEMP 36.1; O2SAT 98
--- NOTE | 2019-11-05 18:40 | ED.GENADUL_ITS ---
Discharge Plan Disposition Patient Disposition: HOME Condition: Stable Discharge Details Clinical Impression: Degenerative joint disease of right knee Primary Care Provider: Talisha Treviño ED Provider: Prince Cummins Home Meds and New Rx's Prescriptions: New tramadol 50 mg tablet 50 mg PO BID PRN (Reason: pain) Qty: 7 RF: 0 Continued bisacodyl 5 mg tablet 5 mg PO BID Qty: 60 RF: 12 ibuprofen [IBU] 600 mg tablet 800 mg PO BID RF: 0 tizanidine 2 mg Tablet 2 mg PO BID RF: 0 polyethylene glycol 3350 [Miralax] 17 gram Powder In Packet 17 g PO BID RF: 0 citalopram 20 mg Tablet 20 mg PO DAILY RF: 0 albuterol sulfate [Ventolin HFA] 90 mcg/actuation Hfa Aerosol Inhaler 2 puff INHALATION 6XD PRNRF: 0 Discharge Instructions Instructions: Osteoarthritis (ED) Additional Instructions: Marco bandage as needed for comfort while awake and out of bed. Remove at nighttime. I ice area to reduce discomfort. Ibuprofen as previously prescribed. You may use the prescribed tramadol as needed for severe or breakthrough pain. Follow-up with Dr. Edwards orthopedics as planned. Return to the ER for any acute concerns. Medical Decision Making 39-year-old female with 2 weeks of right anterior knee pain that is worse when climbing stairs. She has plans to follow-up with Dr. Edwards in orthopedics in approximately 2 weeks time. Her exam does reveal nonfocal anterior joint line tenderness without laxity, no effusion appreciated. She is referred for x-ray which reveals mild medial joint degenerative narrowing, no fractures or lesions. Will provide Marco bandage for comfort and compression. She requests a small number of tramadol which I do feel is reasonable. She will follow-up with orthopedics as planned. HPI General Mode of arrival: ambulatory . Date/Time Provider Initiated Documentation: 11/05/19 18:25 . Limitations to Documentation: no limitations . Information obtained by: patient . History of Present Illness 39 year old F presents to the emergency department with the chief complaint of Atraumatic right knee pain for 2 weeks, worse 3 days, described as moderate, Quality is described as constant, and is localized to the right and lower extremity. Patient distal. Patient started experiencing this day(s) and it has been constant. Rest improves symptom(s), Movement worsens symptoms . Patient notes denies fever/chills and rash. Patient did receive the following treatments prior to arrival, none Related Data Home Medications Medication Instructions Recorded Confirmed bisacodyl 5 mg tablet 5 mg PO BID #60 tab 10/27/18 11/05/19 ibuprofen [IBU] 800 mg PO BID 05/21/19 11/05/19 albuterol sulfate [Ventolin HFA] 2 puff INHALATION 6XD PRN 09/02/19 11/05/19 citalopram 20 mg PO DAILY 09/02/19 11/05/19 polyethylene glycol 3350 [Miralax] 17 g PO BID 09/02/19 11/05/19 tizanidine 2 mg PO BID 09/02/19 11/05/19 tramadol 50 mg PO BID PRN #7 tab 11/05/19 Previous Rx's Medication Instructions Recorded bisacodyl 5 mg tablet 5 mg PO BID #60 tab 10/27/18 tramadol 50 mg PO BID PRN #7 tab 11/05/19 Allergies Allergy/AdvReac Type Severity Reaction Status Date / Time lisinopril AdvReac Mild cough Unverified 11/05/19 18:34 General Stated Complaint: Orthopedic CLIFFORD: 3 Review of Systems Narrative: Denies fall or trauma. No fever, no chills, no rash, no swelling. Worse with walking up her 38 stairs. 6 systems reviewed and otherwise negative. [facility] Medical History (Updated 11/05/19 @ 19:26 by Prince Cummins MD) Abdominal hernia just above umbilicus Abdominal pain chronic RLQ pain that did not improve with ureteroscopy. LUQ pain. W/U at [facility]. Pt thinks that she has hiatal hernia. No evidence on imaging studies. Asthma stable. no exacerbations for 1 yr. 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 Chronic back pain Diarrhea due to drug GERD (gastroesophageal reflux disease) Hematuria Hiatal hernia Hypertension IBS (irritable bowel syndrome) Insomnia Postoperative seroma Prediabetes Recurrent umbilical hernia with incarceration Tobacco use Surgical History bone spur R foot. History of hernia repair History of hernia surgery Ligation of fallopian tube Status post Molly fundoplication Tooth extraction Social History Smoking/Tobacco Use Status: Current every day Tobacco Type: cigarettes Alcohol Intake: never Drug use: Never Substance use type: does not use Do you feel safe at home: Yes Do you feel safe in your relationship?: Yes History History Para 0 Hx # Term Pregnancies Multiple births Hx # Pregnancies Ectopic pregnancies AB induced Hx Number of Living Children AB spontaneous Exam Narrative Exam Narrative: GEN: awake, alert, oriented 3. Pleasant, well groomed, interactive. HEAD: Normocephalic, atraumatic ABDOMEN: Soft, nontender, no mass. +Bowel sounds EXT: Full ROM, no edema, no rash. Anterior knee tenderness. No significant change with varus or valgus stress. Motor is 5 out of 5. There is no laxity of the joint. There is no significant distal edema. Neuro: Grossly normal neurologic exam, conversant, interactive. Psych: Speech fluent, thoughts congruent, affect normal Course Vital Signs Vital signs: Vital Signs Temperature 36.1 C L 11/05/19 18:31 Pulse 75 11/05/19 18:31 Respiratory Rate 18 11/05/19 18:31 Blood Pressure 167/83 H 11/05/19 18:31 Pulse Oximetry 98 11/05/19 18:31 Temperature 36.1 C L 11/05/19 18:31 Pulse 75 11/05/19 18:31 Respiratory Rate 18 11/05/19 18:31 Respiratory Effort Non-Labored 11/05/19 18:37 Blood Pressure 167/83 H 11/05/19 18:31 Blood Pressure Position Sitting 11/05/19 18:31 Pulse Oximetry 98 11/05/19 18:31 Oxygen Delivery Method Room Air 11/05/19 18:31 Oxygen Flow Rate 0 11/05/19 18:31 Pain Level 10 11/05/19 18:31
[2019-11-05] MEDS: Acetaminophen 500 MG TAB 1000 MG PO (18:43)
--- NOTE | 2019-11-05 19:20 | DI.VRAD_ITS ---
PROCEDURE INFORMATION: Exam: XR Right Knee Exam date and time: 11/05/2019 7:08 PM Age: 39 years old Clinical indication: Right; Patient HX: Anterior knee pain, no known trauma TECHNIQUE: Imaging protocol: XR Right knee. Views: 3 views. COMPARISON: CR RIGHT KNEE COMPLETE 09/16/2015 5:05 PM FINDINGS: Bones/joints: Mild medial joint compartment degenerative narrowing. No focal bone lesions. No fracture. No significant joint effusion.. Soft tissues: Normal. IMPRESSION: 1. No acute findings. 2. Degenerative medial joint space narrowing of mild severity. Dictated and Authenticated by: Adnres Peñaloza MD. Ordering:AURA Morrison MD
[2019-11-05 19:33] VITALS: BP 159/88; PULSE 75; RESP 16; TEMP 36.8; O2SAT 97
== END 2019-11-05 19:45 | disposition home or self-care (01) ==
PROVIDERS: Emergency Provider Emergency Medicine; PCP Family Medicine
DX: M17.11 Unilateral primary osteoarthritis, right knee (principal); I10 Essential (primary) hypertension
CPT/HCPCS: 73562; 99283; 99284

== ENCOUNTER 2019-11-14 10:35 | Outpatient (CLI) | payer MEDICARE, MEDICAID, SELFPAY ==
--- NOTE | 2019-11-14 09:45 | DI.RAD_ITS ---
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 COMPARISON: CR,XR XR KNEE RT 3V AP,LAT,HAZEL from 11/05/2019 TECHNIQUE: 2D digital imaging was performed. FINDINGS: The patella are normally positioned bilaterally. There is no significant joint space narrowing. The re is minimal periarticular spurring. IMPRESSION: Minimal symmetric degenerative changes. DATA REPOSITORY: RADIATION DOSE DELIVERED:
== END 2019-11-14 10:55 ==
PROVIDERS: PCP Family Medicine; Referring Provider Family Medicine; Visit Provider Orthopaedic Surgery
DX: M17.11 Unilateral primary osteoarthritis, right knee (principal); M22.2X1 Patellofemoral disorders, right knee; M25.561 Pain in right knee
CPT/HCPCS: 73565; 99214

== ENCOUNTER 2019-12-20 09:44 | Emergency (ER) | payer MEDICARE, MEDICAID, SELFPAY ==
[2019-12-20] VITALS (13 sets, daily range): BP systolic 138–144; BP diastolic 68–88; PULSE 79–98; RESP 4–17; TEMP 36.8; O2SAT 95–100
[2019-12-20] MEDS: Normal Saline Flush 10 ML SYR IVP ×2 (10:00→11:10)
[2019-12-20] MEDS: Lactated Ringers 1,000 ML 1000 ML IV (10:23)
[2019-12-20 10:24] LABS: Abs Immature Grans 0.03 10^3/uL (0.0-0.06); Absolute Basophil Count 0.06 10^3/uL (0.0-0.2); Absolute Eosinophil Count 0.16 10^3/uL (0.0-0.7); Absolute Lymphocyte Count 2.25 10^3/uL (1.2-3.4); Basophils % 0.7; Eosinophils % 1.8; HCT 32.9 % (36.0-46.0); HGB 9.6 g/dL (11.2-15.7); Immature Grans % 0.3; Lymphocytes % 25.9; MCH 20.3 pg (27.0-33.0); MCHC 29.2 % (32.0-36.0); MCV 69.7 fL (80-95); MPV 10.3 fL (8.0-11.0); Monocytes % 9.2; Neutrophils % 62.1; Nucleated RBC 0 %; RBC 4.72 10^6/uL (3.93-5.22); RDW 18.8 % (11.7-14.6); RDW-SD 46.4 fL
[2019-12-20 10:35] LABS: ALT 13 U/L (14-59); AST 9 U/L (15-37); Albumin 3.6 g/dL (3.4-5.0); Alkaline Phosphatase 87 U/L (46-116); Anion Gap 11.7 mmol/L (3-11); BUN 12 mg/dL (7-18); Bilirubin, Total 0.2 mg/dL (0.2-1.0); CO2 22.3 mmol/L (21.0-32.0); CREATININE 0.82 mg/dL (0.55-1.02); Calcium 8.9 mg/dL (8.5-10.1); Chloride 108 mmol/L (98-107); Glucose 100 mg/dL (74-106); Lipase 65 U/L (73-393); Potassium 3.6 mmol/L (3.5-5.1); Sodium 142 mmol/L (136-145)
[2019-12-20 10:40] LABS: Anisocytosis 1+; Diff Comment RBC Morph Reviewed; Hypochromasia 3+; Microcytosis 3+; Platelet Count 469 10^3/uL (130-400)
[2019-12-20 10:41] LABS: Poikilocytes 1+; Polychromasia Present
[2019-12-20] MEDS: Normal Saline - Diluent 50 ML VIAL IV (11:09)
[2019-12-20] MEDS: Omnipaque 350 MG/ML 100 ML BTL IJ (11:09)
--- NOTE | 2019-12-20 11:10 | DI.CT_ITS ---
EXAM: CT ABDOMEN PELVIS W CLINICAL HISTORY: ruq abd pain, prior mirtha, prior hernia TECHNIQUE: Imaging Protocol: Axial computed tomography images with coronal and sagittal reformatted images were created and reviewed CONTRAST MATERIAL: Intravenous: Omnipaque 350 Contrast volume:100 mL Oral: No COMPARISON: CT CT ABDOMEN PELVIS W from 11/14/[address] ABDOMEN PELVIS W from 11/14/[address] ABDOMEN PELVIS W from 04/09/2019 FINDINGS: ABDOMEN: Lung Bases: Dependent atelectasis. Liver: Normal density. No measurable mass. Portal, Superior Mesenteric, and Splenic Veins: Unremarkable. Gallbladder and Biliary Tract: No radiodense calculus or dilation. Pancreas: Normal density, no abnormal calcifications or inflammatory process. Spleen: Normal. Adrenals: No masses seen. Kidneys: Normal size, contour and axis. 1 mm nonobstructing stone in the superior pole of the left ki dney. Calcification adjacent to the mid right ureter is unchanged. No masses seen. Abdominal Aorta: Abdominal portion non-dilated. Mild atherosclerosis. Bowel: No obstruction or bowel wall thickening. Appendix is unremarkable. The patient has a Mirtha fu ndoplication. Peritoneal Cavity: No ascites, collection or mesenteric inflammatory response. Lymph Nodes: Within normal limits. Bones: Unremarkable. Soft Tissues: No evidence of a recurrent abdominal wall hernia. PELVIS: Bladder: Symmetric distention, no gross wall thickening. Reproductive Organs: Unremarkable as visualized. Lymph Nodes: Within normal limits. Bones: Within normal limits. IMPRESSION: No acute abdominal or pelvic process. Findings were discussed with the emergency department on the date of the examination. RADIATION DOSE DELIVERED: 942.2mGy.cm Total DLP DATA REPOSITORY: All CT scans at this facility are submitted to the National Radiology Data Registry (NRDR) Dose Index Registry (DIR) with the [employer] ([employer]). RADIATION OPTIMIZATION: All CT scans at this facility use at least one of these dose optimization te chniques: automated exposure control; mA and/or kV adjustment per patient size (includes targeted exa ms where dose is matched to clinical indication); or iterative reconstruction.
--- NOTE | 2019-12-20 11:31 | W.ED.GENAD ---
Discharge Plan Disposition Patient Disposition: HOME Condition: Stable Discharge Details Clinical Impression: Acute upper abdominal pain, Nausea, Anemia Primary Care Provider: Edie Ellis ED Provider: Fran Varner Home Meds and New Rx's Prescriptions: New prochlorperazine maleate [Compazine] 10 mg tablet 10 mg PO BID PRNQty: 20 RF: 0 omeprazole 20 mg capsule,delayed release(DR/EC) 20 mg PO BID Qty: 60 RF: 0 Continued tizanidine 2 mg Tablet 2 mg PO BID RF: 0 polyethylene glycol 3350 [Miralax] 17 gram Powder In Packet 17 g PO BID RF: 0 citalopram 20 mg Tablet 20 mg PO DAILY RF: 0 albuterol sulfate [Ventolin HFA] 90 mcg/actuation Hfa Aerosol Inhaler 2 puff INHALATION 6XD PRNRF: 0 Discontinued ibuprofen [IBU] 600 mg tablet 800 mg PO BID RF: 0 Discharge Instructions Instructions: Abdominal Pain (ED), Anemia (ED) Additional Instructions: Please take medication as prescribed. Please stop taking ibuprofen. Please contact your primary care physician to arrange follow-up. Be sure to discuss your ongoing anemia. Please follow-up with your gastrointestinal surgical team or [facility] general surgeon. Please call them today to arrange timely follow-up. Return to the ER for any worsening or new concerning symptoms. Referrals: Caitlin Lopez MD [ [facility] STAFF PHYSICIAN] - Edie Ellis [Primary Care Provider] - Discharge Data Discharge Date/Time-TO BE ENTERED AT DEPARTURE: 12/20/19 12:17 Medical Decision Making 39-year-old female here status post remote Molly fundoplication, complicated by hernia and need for revision, here with 3 days of right upper abdominal pain and epigastric discomfort that feels like when she had hernia in the past. CT the abdomen pelvis was interpreted by radiology, I called and spoke with Dr. Connelly about the study, he notes negative study with no acute process, Molly fundoplication without inflammatory changes, no hernia. Labs reviewed and nondiagnostic. Patient continues to have anemia which she has had in the past. She denies bright red blood per rectum or black or dark stool. No leukocytosis. LFTs normal. Lipase normal. Patient was given IV fluid bolus. Patient was given Compazine orally for her nausea. I did call and speak with general surgeon on-call, Dr. Lopez, discussed ED presentation and course including diagnostics, she reviewed CT scan, she agrees with plan for antiemetic and PPI and will be happy to see the patient in follow-up for possible endoscopy. Usual customary discharge instructions were reviewed with patient. Patient verbalized understanding. I emphasized the need to return immediately for any worsening or new concerning symptoms and the importance of timely follow-up. HPI General Mode of arrival: ambulatory. Date/Time Provider Initiated Documentation: 12/20/19 09:53. Limitations to Documentation: no limitations. Information obtained by: patient. HPI Narrative: 39-year-old female here status post remote Molly fundoplication, complicated by hernia and need for revision, here with chief complaint of right upper quadrant abdominal pain. Patient notes 3 days of right upper abdominal pain and epigastric discomfort that feels like when she had hernia in the past. No modifiers. She does have associated nausea. Related Data Home Medications Medication Instructions Recorded Confirmed albuterol sulfate [Ventolin HFA] 2 puff INHALATION 6XD PRN 09/02/19 12/20/19 citalopram 20 mg PO DAILY 09/02/19 12/20/19 polyethylene glycol 3350 [Miralax] 17 g PO BID 09/02/19 12/20/19 tizanidine 2 mg PO BID 09/02/19 12/20/19 omeprazole 20 mg PO BID #60 cap 12/20/19 prochlorperazine maleate 10 mg PO BID PRN #20 tab 12/20/19 [Compazine] Previous Rx's Medication Instructions Recorded omeprazole 20 mg PO BID #60 cap 12/20/19 prochlorperazine maleate 10 mg PO BID PRN #20 tab 12/20/19 [Compazine] Allergies Allergy/AdvReac Type Severity Reaction Status Date / Time lisinopril AdvReac Mild cough Unverified 12/20/19 10:01 General Stated Complaint: Abd Prob CLIFFORD: 3 Review of Systems All systems reviewed & are unremarkable except as noted in HPI and below Constitutional Constitutional: Denies fever(s) Gastrointestinal Gastrointestinal: Reports abdominal pain [facility] Medical History Abdominal hernia just above umbilicus Abdominal pain chronic RLQ pain that did not improve with ureteroscopy. LUQ pain. W/U at [facility]. Pt thinks that she has hiatal hernia. No evidence on imaging studies. Asthma stable. no exacerbations for 1 yr. 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 Chronic back pain Diarrhea due to drug GERD (gastroesophageal reflux disease) Hematuria Hiatal hernia Hypertension IBS (irritable bowel syndrome) Insomnia Patellofemoral syndrome, right Postoperative seroma Prediabetes Recurrent umbilical hernia with incarceration Right knee pain Tobacco use Surgical History bone spur R foot. History of hernia repair History of hernia surgery Ligation of fallopian tube Status post Molly fundoplication Tooth extraction Social History Smoking/Tobacco Use Status: Current every day Tobacco Type: cigarettes Smoking risk assessment performed?: Yes Alcohol Intake: never Drug use: Never Substance use type: does not use Current gender identity: female Do you feel safe at home: Yes Do you feel safe in your relationship?: Yes History History Para 0 Hx # Term Pregnancies Multiple births Hx # Pregnancies Ectopic pregnancies AB induced Hx Number of Living Children AB spontaneous Exam Const General: cooperative and no acute distress HENMT Mouth: moist mucous membranes Eyes Conjunctivae: normal conjunctivae Sclera: normal sclerae Neck Neck: trachea midline and supple Resp Auscultation: clear to auscultation bilaterally, no rales, no rhonchi and no wheezes Cardio Jugular venous pressure: no JVD Rate: regular rate and not tachycardic Rhythm: regular rhythm GI Palpation: soft, not firm, no guarding, no masses, not rigid and tender in the epigastrum and in the RUQ Skin General skin exam: no rashes or lesions noted Neuro General: patient alert, patient awake, patient oriented x3 and tone normal Extrem General: no edema Psych Appearance: grossly normal Mental Status: mental status grossly normal Speech and Movement: speech and movement normal Course Vital Signs Vital signs: Vital Signs Temperature 36.8 C 12/20/19 09:49 Pulse 86 12/20/19 09:49 Respiratory Rate 17 12/20/19 09:49 Blood Pressure 140/68 12/20/19 09:49 Pulse Oximetry 100 12/20/19 09:49 Temperature 36.8 C 12/20/19 09:49 Temperature Source Temporal Artery Scan 12/20/19 09:49 Pulse 86 12/20/19 10:18 Pulse 84 12/20/19 10:30 Respiratory Rate 15 12/20/19 10:30 Respiratory Effort Non-Labored 12/20/19 09:57 Blood Pressure 144/78 H 12/20/19 11:19 Blood Pressure Mean 92 12/20/19 10:18 Blood Pressure Position Supine 12/20/19 09:49 Pulse Oximetry 98 12/20/19 10:30 Oxygen Delivery Method Room Air 12/20/19 09:49 Oxygen Flow Rate 0 12/20/19 09:49 Pain Level 10 12/20/19 09:49 Lab/Test Results Lab/Test Results: Laboratory Tests Range/Units 12/20/19 12/20/19 10:15 10:15 WBC (4.4-10.8) 10^3/uL 8.70 RBC (3.93-5.22) 10^6/uL 4.72 Hgb (11.2-15.7) g/dL 9.6 L Hct (36.0-46.0) % 32.9 L MCV (80-95) fL 69.7 L MCH (27.0-33.0) pg 20.3 L MCHC (32.0-36.0) % 29.2 L RDW (11.7-14.6) % 18.8 H Plt Count (130-400) 10^3/uL 469 H MPV (8.0-11.0) fL 10.3 Immature Gran % 0.3 Neutrophils % 62.1 Lymphocytes % 25.9 Monocytes % 9.2 Eosinophils % 1.8 Basophils % 0.7 Nucleated RBC % % 0 Absolute Neutrophils (1.2-6.7) 10^3/uL 5.40 Absolute Lymphocytes (1.2-3.4) 10^3/uL 2.25 Absolute Monocytes (0.1-0.8) 10^3/uL 0.80 Absolute Eosinophils (0.0-0.7) 10^3/uL 0.16 Absolute Basophils (0.0-0.2) 10^3/uL 0.06 RBC Morphology See below Polychromasia Present Hypochromasia 3+ Poikilocytosis 1+ Anisocytosis 1+ Microcytosis 3+ Sodium (136-145) mmol/L 142 Potassium (3.5-5.1) mmol/L 3.6 Chloride (98-107) mmol/L 108 H Carbon Dioxide (21.0-32.0) mmol/L 22.3 Anion Gap (3-11) mmol/L 11.7 H BUN (7-18) mg/dL 12 Creatinine (0.55-1.02) mg/dL 0.82 Estimated GFR/1.73 m2 (mL/min/1.73m2) >= 60.00 Glucose (74-106) mg/dL 100 Calcium (8.5-10.1) mg/dL 8.9 Total Bilirubin (0.2-1.0) mg/dL 0.2 AST (15-37) U/L 9 L ALT (14-59) U/L 13 L Alkaline Phosphatase (46-116) U/L 87 Total Protein (6.4-8.2) g/dL 7.0 Albumin (3.4-5.0) g/dL 3.6 Lipase (73-393) U/L 65
[2019-12-20] MEDS: Prochlorperazine 10 MG TAB PO (11:56)
[2019-12-20] MEDS: Pantoprazole 40 MG TABCR PO (12:02)
== END 2019-12-20 12:17 | disposition home or self-care (01) ==
PROVIDERS: Emergency Provider Student in an Organized Health Care Education/Training Program; PCP Nurse Practitioner Adult Health
DX: R10.11 Right upper quadrant pain (principal); R11.0 Nausea; D64.9 Anemia, unspecified; R10.13 Epigastric pain; Z98.890 Other specified postprocedural states; I10 Essential (primary) hypertension
CPT/HCPCS: 36415; 80053; 83690; 96360; 99285; 74177; 85025; J3490

== ENCOUNTER → 2019-12-24 13:54 | Outpatient (BNVA) | payer MEDICARE, MEDICAID, SELFPAY | PROVIDERS: PCP Nurse Practitioner Adult Health; Referring Provider Nurse Practitioner Adult Health; Visit Provider Surgery | DX: R11.0 Nausea (principal); D64.9 Anemia, unspecified; I10 Essential (primary) hypertension; Z87.19 Personal history of other diseases of the digestive system | CPT/HCPCS: 99214 ==

== ENCOUNTER 2019-12-25 07:33 | Outpatient (CLI) | payer MEDICARE, MEDICAID, SELFPAY ==
[2019-12-26 12:31] LABS: SARS-CoV-2 RNA Not Detected (NotDetected); SARS-CoV-2 RNA Source Nasal/Nares
== END 2019-12-25 07:53 ==
PROVIDERS: PCP Nurse Practitioner Adult Health; Visit Provider Surgery
DX: Z11.59 Encounter for screening for other viral diseases (principal); Z01.818 Encounter for other preprocedural examination
CPT/HCPCS: U0003

== ENCOUNTER 2019-12-28 08:35 | Day surgery (SDC) | payer MEDICARE, MEDICAID, SELFPAY ==
[2019-12-28 08:57] VITALS: BP 128/75; PULSE 90; RESP 18; TEMP 36.5; O2SAT 99
[2019-12-28] MEDS: Lactated Ringers 1,000 ML 80 ML IV (09:05)
--- NOTE | 2019-12-28 09:45 | W.PM.DSUDISC ---
Discharge Plan Disposition Patient Disposition: HOME Condition: Good Discharge Details Reason For Visit: EGD Attending Provider: Caitlin Lopez Primary Care Provider: Edie Ellis Home Meds and New Rx's Prescriptions: Continued prochlorperazine maleate [Compazine] 10 mg tablet 10 mg PO BID PRNQty: 20 RF: 0 omeprazole 20 mg capsule,delayed release(DR/EC) 20 mg PO BID Qty: 60 RF: 0 Linzess 145 mcg capsule 145 mcg PO DAILY RF: 0 tizanidine 2 mg Tablet 2 mg PO BID RF: 0 polyethylene glycol 3350 [Miralax] 17 gram Powder In Packet 17 g PO BID RF: 0 citalopram 20 mg Tablet 20 mg PO DAILY RF: 0 albuterol sulfate [Ventolin HFA] 90 mcg/actuation Hfa Aerosol Inhaler 2 puff INHALATION 6XD PRNRF: 0 Discharge Instructions Additional Instructions: Findings: A shallow but healing ulcer was noted in the stomach. My office will contact you with biopsy results. Continue the twice a day antacid (omeprazole) for two months. Please call if you develop: fevers >101.5 Nausea or Vomiting Abdominal pain that is not transient [facility] POST EGD INSTRUCTIONS 1. Because there will be medication in your system for the next 24 hours, you may feel a little sleepy. Your coordination will be affected. Therefore: a. Do not drive or operate dangerous equipment for 24 hours. b. Do not drink alcohol beverages for 24 hours (not even beer). c. Plan to go home and rest for the day. 2. Generally there are no restrictions on your activity after a day or so has gone by, but you may feel a bit fatigued for a few days. 3 After you arrive home you may have a light meal and return to a normal diet as you can tolerate it without feeling sick to your stomach. 4. After surgery, you may feel pain or discomfort. This should be only transient, but if it persists please contact your doctor. 5. If there are any questions regarding the findings of your procedure, please feel free to contact your doctor. 6. If you are unable to contact your doctor with a problem, contact the hospital at [phone]. 7. Continue all your regular medications unless directed otherwise. I understand the above instructions and have no questions. Signature of Patient or Responsible Adult Escort Date/Time Name of Responsible Adult Escort Signature of Nurse Date/Time Activity:: Activity as Tolerated Diet:: As Tolerated Discharge Orders Discharge Orders: Discharge Order (Routine); Ordered 12/28/19 Ordered By: Caitlin Lopez DS: Diagnosis Discharge Diagnosis (1) Gastric ulcer: Status: Acute
--- NOTE | 2019-12-28 09:46 | ENDO_ITS ---
Date of service: 12/28/19 Time of Service: 10:38 Endoscopy Report DATE OF PROCEDURE: 12/28/19 PRE-OP DIAGNOSIS: Nausea, anemia POST-OP DIAGNOSIS: other (Shallow gastric ulcer, s/p lap Molly) PROCEDURE: EGD with duodenal and gastric biopsies SURGEON: Caitlin Lopez ANESTHESIA: MAC INDICATIONS: This 39 year old woman presents with nausea on a daily basis. She also has microcytic anemia with a HgB of 9.6 PROCEDURE DESCRIPTION: The patient was placed in the left lateral position and propofol titrated to sedation. The endoscope was advanced into the esophagus under direct visualization. The scope was passed through the stomach and into the duodenum. There was no duodenitis or ulceration noted. Biopsies were taken from the second portion of the duodenum to evaluate for celiac disease. The stomach itself showed a shallow and healing ulcer in the antrum. Biopsies w ere taken from the periphery. Retroflexed view of the fundus and lesser curvature showed an intact wrap with no evidence of a recurrent hiatal hernia. The GE junction was inspected and showed no significant stricture, inflammation, masses or Barretts. The scope was slowly withdrawn with no other esophageal lesions found. The patient tolerated the procedure well and was stable to recovery. Advised to continue the BID PPI for 2 months.
--- NOTE | 2019-12-28 10:22 | STOM_PTH ---
PATIENT: Ruby Sprague LOC: [facility] U#:[id number] AGE/SX: 39/F ROOM: RE12/28/[address]: Caitlin Lopez MD : 1980 BED: DIS: 12/28/2019 SPEC #: [id number] RECD: 12/28/19 12:52 STATUS: TIFFANIE REQ #: [id number] LATASHA: 12/28/19 10:[address]: Caitlin Lopez DEPT: Surgical Specimen RECD BY: Candace He ENTERED: 12/28/19 12:52 SP TYPE: STOMACH OTHR DR: Edie Ellis Tissues: 1 - BIOPSY BOWEL 2 - STOMACH BIOPSY Procedures: GROSS AND MICRO LEVEL 4 Comments: [id number] ([id number] [facility]#)
[2019-12-28] MEDS: Simethicone 80 MG CHEW PO (10:49)
[2019-12-28 11:10] VITALS: BP 135/72; PULSE 80; RESP 16; TEMP 36.8; O2SAT 98
== END 2019-12-28 11:49 | disposition home or self-care (01) ==
PROVIDERS: PCP Nurse Practitioner Adult Health; Visit Provider Surgery
PROC: 0DJ68ZZ Inspection of Stomach, Via Natural or Artificial Opening Endoscopic (ICD-10-PCS; CPT 43235; principal; 2019-12-28 09:45)
DX: K25.9 Gastric ulcer, unspecified as acute or chronic, without hemorrhage or perforation (principal); D50.9 Iron deficiency anemia, unspecified; I10 Essential (primary) hypertension; J45.909 Unspecified asthma, uncomplicated
CPT/HCPCS: 43239; 88305; J2001; J2704

== ENCOUNTER 2020-01-04 04:19 | Outpatient (CLI) | payer MEDICARE, MEDICAID, SELFPAY ==
--- NOTE | 2020-01-04 | DI.RAD_ITS ---
EXAM: XR KNEE LT 3V AP,LAT,HAZEL CLINICAL HISTORY: LT KNEE JOINT PAIN,M25.562. TECHNIQUE: 2D digital imaging was performed. COMPARISON: CR,XR XR KNEE RT 3V AP,LAT,HAZEL from 11/05/2019 FINDINGS: BONES: No acute fracture is present. No bony destructive lesion is seen. JOINTS: The knee is normally aligned. No joint effusion is seen. SOFT TISSUE: Normal. IMPRESSION: Normal radiographs of the left knee. DATA REPOSITORY: RADIATION DOSE DELIVERED:
== END 2020-01-04 04:39 ==
PROVIDERS: PCP Nurse Practitioner Adult Health; Visit Provider Physician Assistant Medical
DX: M25.562 Pain in left knee (principal)
CPT/HCPCS: 73562

== ENCOUNTER 2020-01-07 10:06 | Emergency (ER) | payer MEDICARE, MEDICAID, SELFPAY ==
[2020-01-07 10:10] VITALS: BP 151/89; PULSE 87; RESP 18; TEMP 36.7; O2SAT 98
--- NOTE | 2020-01-07 10:36 | W.ED.GENAD ---
Discharge Plan Disposition Patient Disposition: HOME Condition: Stable Discharge Details Clinical Impression: Knee pain Primary Care Provider: Edie Ellis ED Provider: Lei Hidalgo Home Meds and New Rx's Prescriptions: Continued prochlorperazine maleate [Compazine] 10 mg tablet 10 mg PO BID PRNQty: 20 RF: 0 omeprazole 20 mg capsule,delayed release(DR/EC) 20 mg PO BID Qty: 60 RF: 0 Linzess 145 mcg capsule 145 mcg PO DAILY RF: 0 tizanidine 2 mg Tablet 2 mg PO BID RF: 0 polyethylene glycol 3350 [Miralax] 17 gram Powder In Packet 17 g PO BID RF: 0 citalopram 20 mg Tablet 20 mg PO DAILY RF: 0 albuterol sulfate [Ventolin HFA] 90 mcg/actuation Hfa Aerosol Inhaler 2 puff INHALATION 6XD PRNRF: 0 Discharge Instructions Instructions: Knee Pain (ED) Additional Instructions: I reviewed the x-ray that you had as an outpatient last week, was unremarkable. As we discussed where Marco wrap as needed, advance activity as tolerated. Rest, elevate, cool and/or warm compresses every 2 hours for 20 minutes. [id number] Tylenol and/or Motrin as directed for discomfort. Please watch for new or worsening symptoms and return to the ER for any concerns. Please follow-up with your doctor on Tuesday as already scheduled for your follow-up regarding your knee pain. Medical Decision Making 39-year-old female who has been experiencing left knee pain for at least 2 months presents requesting x-ray results. She denies any recent trauma or new symptoms since being evaluated by Dr. Logan. She does not want to wait until Tuesday when she is scheduled to be seen. I was able to review her left knee x-ray from 01-04-20, read by radiology as unremarkable. I relayed these results to the patient. She was relieved that nothing was wrong but frustrated as she still has discomfort and does not know why. She questions that she may need an MRI through her specialist. We discussed options, Marco wrap was applied. She will use [id number] Tylenol and/or Motrin, Marco wrap, cool and/or warm compresses. She will follow up on Tuesday as already scheduled, encouraged to return to the ER for new or worsening symptoms. Medical Records Medical records reviewed: Yes I reviewed the patient's medical records. HPI General Mode of arrival: ambulatory. Date/Time Provider Initiated Documentation: 01/07/20 10:06. Limitations to Documentation: no limitations. Information obtained by: patient. HPI Narrative: 39-year-old female with history of gastric ulcer, chronic knee pain, renal stones, anemia, asthma, GERD, IBS, presents to the ER requesting her x-ray results from last week. She states that she has been having a left sided knee pain for at least 2 months, has been seen as an outpatient by her specialist Dr. Logan who ordered outpatient x-rays. She has not received a call with her x-ray results and she is scheduled to see Dr. Logan on Tuesday but does not want to wait that long. She would like her x-ray results now and is questioning whether or not she should wear an Marco wrap. She has no additional questions or concerns. She reports the knee pain is mild to moderate, along the anterior aspect, worse with bearing weight or movement. She denies any obvious trauma, fever, chest pain, shortness of breath, numbness, tingling, weakness, pain or swelling in her calf. Related Data Home Medications Medication Instructions Recorded Confirmed albuterol sulfate [Ventolin HFA] 2 puff INHALATION 6XD PRN 09/02/19 01/07/20 citalopram 20 mg PO DAILY 09/02/19 01/07/20 polyethylene glycol 3350 [Miralax] 17 g PO BID 09/02/19 01/07/20 tizanidine 2 mg PO BID 09/02/19 01/07/20 omeprazole 20 mg PO BID #60 cap 12/20/19 01/07/20 prochlorperazine maleate 10 mg PO BID PRN #20 tab 12/20/19 01/07/20 [Compazine] Linzess 145 mcg PO DAILY 12/26/19 01/07/20 Previous Rx's Medication Instructions Recorded omeprazole 20 mg PO BID #60 cap 12/20/19 prochlorperazine maleate 10 mg PO BID PRN #20 tab 12/20/19 [Compazine] Allergies Allergy/AdvReac Type Severity Reaction Status Date / Time lisinopril AdvReac Mild cough Unverified 01/07/20 10:15 hydrocodone AdvReac Headache Verified 01/07/20 10:15 General Stated Complaint: Orthopedic CLIFFORD: 4 Review of Systems Constitutional Constitutional: Denies fever(s) and Denies weakness Cardiovascular Cardiovascular: Denies chest pain and Denies dyspnea Respiratory Respiratory: Denies dyspnea Musculoskeletal Musculoskeletal: Reports arthralgias, Denies numbness and Denies tingling Integumentary/Breasts Skin/Breast: Denies erythema Neurologic Neurologic: Denies numbness, Denies tingling and Denies weakness [facility] Medical History Abdominal hernia just above umbilicus Abdominal pain chronic RLQ pain that did not improve with ureteroscopy. LUQ pain. W/U at [facility]. Pt thinks that she has hiatal hernia. No evidence on imaging studies. Asthma stable. no exacerbations for 1 yr. 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 Chronic back pain Diarrhea due to drug GERD (gastroesophageal reflux disease) Hematuria Hiatal hernia Hypertension IBS (irritable bowel syndrome) Insomnia Patellofemoral syndrome, right Postoperative seroma Prediabetes Recurrent umbilical hernia with incarceration Right knee pain Tobacco use Surgical History bone spur R foot. History of hernia repair History of hernia surgery Hx of esophagogastroduodenoscopy Ligation of fallopian tube Status post Molly fundoplication Tooth extraction Social History Smoking/Tobacco Use Status: Current every day Tobacco Type: cigarettes Smoking risk assessment performed?: Yes Alcohol Intake: never Drug use: Never Substance use type: does not use Current gender identity: female Do you feel safe at home: Yes Do you feel safe in your relationship?: Yes History History Para 0 Hx # Term Pregnancies Multiple births Hx # Pregnancies Ectopic pregnancies AB induced Hx Number of Living Children AB spontaneous Exam Const General: cooperative, healthy appearing, comfortable and no acute distress Orientation: alert and awake HENAL Head: normal to inspection, normocephalic and atraumatic Eyes General: appearance normal, both eyes and all related structures Conjunctivae: conjunctivae normal Sclera: sclerae normal Neck Neck: normal visual inspection, trachea midline and supple Resp Effort & Inspection: normal respiratory effort and able to speak in complete sentences Cardio Rate: regular rate Rhythm: regular rhythm Skin General skin exam: no rashes or lesions noted Neuro General: patient alert, patient awake, moves all extremities and no focal motor deficits Cognition: normal cognition Speech: speech normal Gait: normal gait Motor: muscle tone normal throughout Sensory Exam: no sensory deficits noted Extrem General: normal to inspection, full ROM and capillary refill normal Left lower extremity: normal to inspection, full ROM, normal capillary refill and knee Details: normal to inspection, tenderness (Diffuse mild anterior aspect), normal ROM and knee ligament exam normal; no swelling, no ecchymosis and no unusual warmth Psych Appearance: grossly normal Mental Status: mental status grossly normal Course Vital Signs Vital signs: Vital Signs Temperature 36.7 C 01/07/20 10:10 Pulse 87 01/07/20 10:10 Respiratory Rate 18 01/07/20 10:10 Blood Pressure 151/89 H 01/07/20 10:10 Pulse Oximetry 98 01/07/20 10:10 Temperature 36.7 C 01/07/20 10:10 Temperature Source Temporal Artery Scan 01/07/20 10:10 Pulse 87 01/07/20 10:10 Respiratory Rate 18 01/07/20 10:10 Respiratory Effort Non-Labored 01/07/20 10:15 Blood Pressure 151/89 H 01/07/20 10:10 Blood Pressure Position Sitting 01/07/20 10:10 Pulse Oximetry 98 01/07/20 10:10 Oxygen Delivery Method Room Air 01/07/20 10:10 Oxygen Flow Rate 0 01/07/20 10:10 Pain Level 10 01/07/20 10:10
== END 2020-01-07 10:49 | disposition home or self-care (01) ==
PROVIDERS: Emergency Provider Physician Assistant; PCP Nurse Practitioner Adult Health
DX: M25.562 Pain in left knee (principal)
CPT/HCPCS: 99282; 99283

== ENCOUNTER 2020-04-23 13:42 | Outpatient (REF) | payer MEDICARE, MEDICAID, SELFPAY ==
[2020-04-23 16:14] LABS: HCT 32.7 % (36.0-46.0); HGB 9.6 g/dL (11.2-15.7); MCH 19.8 pg (27.0-33.0); MCHC 29.4 % (32.0-36.0); MCV 67.6 fL (80-95); Platelet Count 414 10^3/uL (130-400); RBC 4.84 10^6/uL (3.93-5.22); RDW-SD 47.6 fL; WBC 9.05 10^3/uL (4.4-10.8)
[2020-04-23 17:08] LABS: Anion Gap 12.6 mmol/L (3-11); BUN 9 mg/dL (7-18); CO2 20.4 mmol/L (21.0-32.0); CREATININE 0.7 mg/dL (0.55-1.02); Calcium 8.7 mg/dL (8.5-10.1); Calculated LDL 137 mg/dL (<100); Chloride 106 mmol/L (98-107); Cholesterol 198 mg/dL (<200); Glucose 84 mg/dL (74-106); HDL Cholesterol 27 mg/dL (40-60); Potassium 4.1 mmol/L (3.5-5.1); Sodium 139 mmol/L (136-145); Triglyceride 172 mg/dL (<150); Vitamin B12 148 pg/mL (193-986)
[2020-04-24 04:47] LABS: Vitamin D 25 Total 11.9 ng/ml (30-100)
== END 2020-04-23 13:43 | disposition home or self-care (01) ==
LOC: NCHCN 13:42
PROVIDERS: PCP Nurse Practitioner Adult Health; Visit Provider Physician Assistant
DX: D64.9 Anemia, unspecified (principal); I10 Essential (primary) hypertension; E55.9 Vitamin D deficiency, unspecified; E53.8 Deficiency of other specified B group vitamins
CPT/HCPCS: 80048; 80061; 82306; 85027; 82607

== ENCOUNTER 2020-05-30 09:46 | Emergency (ER) | payer MEDICARE, MEDICAID, SELFPAY ==
[2020-05-30 09:49] VITALS: BP 143/83; PULSE 94; RESP 14; TEMP 36.2; O2SAT 98
--- NOTE | 2020-05-30 10:00 | DI.RAD_ITS ---
EXAM: XR WRIST RT COMPLETE CLINICAL HISTORY: pain, tingling. TECHNIQUE: 2D digital imaging was performed. COMPARISON: No exams were available for comparison FINDINGS: BONES: No acute fracture is present. No bony destructive lesion is seen. JOINTS: The carpal bones are normally aligned. SOFT TISSUE: Normal. IMPRESSION: Unremarkable radiographs of the right wrist. DATA REPOSITORY: RADIATION DOSE DELIVERED:
[2020-05-30] MEDS: Acetaminophen 325 MG TAB 650 MG PO (10:14)
--- NOTE | 2020-05-30 10:25 | ED.GENADUL_ITS ---
Discharge Plan Disposition Patient Disposition: HOME Condition: Stable Discharge Details Clinical Impression: Acute pain of right wrist, Carpal tunnel syndrome Primary Care Provider: Edie Ellis ED Provider: Fran Varner Home Meds and New Rx's Prescriptions: New diclofenac sodium [Voltaren] 1 % gel 2 g topical QID Qty: 100 RF: 0 Continued omeprazole 20 mg capsule,delayed release(DR/EC) 20 mg PO BID Qty: 60 RF: 0 albuterol sulfate [ProAir HFA] 90 mcg/actuation Hfa Aerosol Inhaler 1 - 2 puff INHALATION PRN PRNRF: 0 pregabalin [Lyrica] 150 mg Capsule 150 mg PO BID RF: 0 Zelnorm 6 mg Tablet 6 mg PO BID RF: 0 cyanocobalamin (vitamin B-12) 1,000 mcg tablet 1,000 mcg PO DAILY RF: 0 cholecalciferol (vitamin D3) 25 mcg (1,000 unit) tablet 2,000 unit PO DAILY RF: 0 lactulose 10 gram/15 mL solution 15 ml PO BID PRNRF: 0 polyethylene glycol 3350 [Miralax] 17 gram Powder In Packet 17 g PO DAILY PRNRF: 0 citalopram 20 mg Tablet 20 mg PO HS RF: 0 No Action atorvastatin 20 mg tablet 20 mg PO DAILY RF: 0 Linzess 290 mcg capsule 290 mcg PO DAILY RF: 0 ibuprofen 800 mg tablet 800 mg PO TID PRNRF: 0 prochlorperazine maleate [Compazine] 10 mg tablet 10 mg PO BID PRNQty: 20 RF: 0 prednisone 20 mg tablet 40 mg PO DAILY Qty: 10 RF: 0 Discharge Instructions Instructions: Arthralgia (ED) Additional Instructions: Use wrist splint and rest your wrist. Avoid any activities that worsen pain. Please take ibuprofen over the counter. Take 600mg by mouth every 6 hours as needed for pain. Please take acetaminophen (tylenol) - 650mg every 6 hours by mouth as needed for pain. Please contact orthopedic to arrange follow-up. Return to the ER for any worsening or new concerning symptoms. Referrals: [facility] [Provider Group] Edie Ellis [Primary Care Provider] - Discharge Data Discharge Date/Time-TO BE ENTERED AT DEPARTURE: 05/30/20 11:38 Medical Decision Making 40-year-old female with 2 months of symptoms consistent with carpal tunnel syndrome right. No acute injury. No inflammatory changes on exam X-ray of the right wrist was reviewed no fracture or other concerning finding noted Volar wrist splint applied, patient was advised to rest her wrist and use Tylenol and ibuprofen and patient was encouraged to follow-up with orthopedics. HPI General Mode of arrival: ambulatory . Date/Time Provider Initiated Documentation: 05/30/20 09:59 . Limitations to Documentation: no limitations . Information obtained by: patient . HPI Narrative: 40-year-old female with 2 months of right wrist pain and tingling paresthesias in her 1st-3rd digit. Symptoms are moderate. No associated trauma. Related Data Home Medications Medication Instructions Recorded Confirmed citalopram 20 mg PO HS 09/02/19 06/09/20 polyethylene glycol 3350 [Miralax] 17 g PO DAILY PRN 09/02/19 05/30/20 omeprazole 20 mg PO BID #60 cap 12/20/19 05/30/20 prochlorperazine maleate 10 mg PO BID PRN #20 tab 12/20/19 01/07/20 [Compazine] Zelnorm 6 mg PO BID 05/30/20 05/30/20 albuterol sulfate [ProAir HFA] 1 - 2 puff INHALATION PRN PRN 05/30/20 06/09/20 cholecalciferol (vitamin D3) 2,000 unit PO DAILY 05/30/20 06/09/20 cyanocobalamin (vitamin B-12) 1,000 mcg PO DAILY 05/30/20 06/09/20 diclofenac sodium [Voltaren] 2 g TOPICAL QID #100 g 05/30/20 06/09/20 lactulose 15 ml PO BID PRN 05/30/20 05/30/20 pregabalin [Lyrica] 150 mg PO BID 05/30/20 06/09/20 prednisone 40 mg PO DAILY #10 tab 06/09/20 atorvastatin 20 mg tablet 20 mg PO DAILY 06/18/20 ibuprofen 800 mg tablet 800 mg PO TID PRN tab 06/18/20 linaclotide 290 mcg capsule 290 mcg PO DAILY 06/18/20 Previous Rx's Medication Instructions Recorded omeprazole 20 mg PO BID #60 cap 12/20/19 prochlorperazine maleate 10 mg PO BID PRN #20 tab 12/20/19 [Compazine] diclofenac sodium [Voltaren] 2 g TOPICAL QID #100 g 05/30/20 prednisone 40 mg PO DAILY #10 tab 06/09/20 Allergies Allergy/AdvReac Type Severity Reaction Status Date / Time lisinopril AdvReac Mild cough Unverified 05/30/20 09:58 hydrocodone AdvReac Headache Verified 05/30/20 09:58 General Stated Complaint: Orthopedic CLIFFORD: 4 Review of Systems Constitutional Constitutional: Denies fever(s) Musculoskeletal Musculoskeletal: Reports as per [facility] Medical History (Updated 06/18/20 @ 08:56 by Judith Howard RN) Abdominal hernia just above umbilicus Abdominal pain chronic RLQ pain that did not improve with ureteroscopy. LUQ pain. W/U at [facility]. Pt thinks that she has hiatal hernia. No evidence on imaging studies. Asthma stable. no exacerbations for 1 yr. 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 Chronic back pain Diarrhea due to drug Generalized anxiety disorder GERD (gastroesophageal reflux disease) Hematuria Hiatal hernia History of IBS History of prediabetes Hypertension IBS (irritable bowel syndrome) Insomnia Low back pain Myofascial pain syndrome Obesity Pain, joint, knee, left Patellofemoral syndrome, right Peripheral neuropathy Postoperative seroma Prediabetes Recurrent umbilical hernia with incarceration Right knee pain Smoker Tobacco dependence Tobacco use Vitamin B12 deficiency Vitamin B12 deficiency (non anemic) Vitamin D deficiency Surgical History bone spur R foot. History of hernia repair History of hernia surgery Hx of esophagogastroduodenoscopy Ligation of fallopian tube Status post Molly fundoplication Tooth extraction Social History Smoking/Tobacco Use Status: Current every day Tobacco Type: cigarettes Smoking risk assessment performed?: Yes Alcohol Intake: never Drug use: Never Substance use type: does not use Current gender identity: female Do you feel safe at home: Yes Do you feel safe in your relationship?: Yes History History Para 0 Hx # Term Pregnancies Multiple births Hx # Pregnancies Ectopic pregnancies AB induced Hx Number of Living Children AB spontaneous Exam Const General: cooperative and no acute distress Cardio Rate: regular rate Rhythm: regular rhythm Pulses: radial pulses present on the right 2+ Skin General skin exam: no rashes or lesions noted Extrem General: no edema Right upper extremity: wrist (+tinel's) Details: tenderness; no swelling and no unusual warmth Course Vital Signs Vital signs: Vital Signs Temperature 36.2 C L 05/30/20 09:49 Pulse 94 H 05/30/20 09:49 Respiratory Rate 14 05/30/20 09:49 Blood Pressure 143/83 H 05/30/20 09:49 Pulse Oximetry 98 05/30/20 09:49 Temperature 36.2 C L 05/30/20 09:49 Temperature Source Skin 05/30/20 09:49 Pulse 94 H 05/30/20 09:49 Respiratory Rate 14 05/30/20 09:49 Respiratory Effort 05/30/20 09:53 Blood Pressure 143/83 H 05/30/20 09:49 Blood Pressure Position Sitting 05/30/20 09:49 Pulse Oximetry 98 05/30/20 09:49 Oxygen Delivery Method Room Air 05/30/20 09:49 Oxygen Flow Rate 0 05/30/20 09:49 Pain Level 10 05/30/20 10:14 Lab/Test Results Lab/Test Results: POC- Test(urine) Negative
== END 2020-05-30 11:38 | disposition home or self-care (01) ==
PROVIDERS: Emergency Provider Student in an Organized Health Care Education/Training Program; PCP Nurse Practitioner Adult Health
DX: M25.531 Pain in right wrist (principal); G56.01 Carpal tunnel syndrome, right upper limb
CPT/HCPCS: 29125; 81025; 99283; 73110

== ENCOUNTER 2020-06-09 06:03 | Emergency (ER) | payer MEDICARE, MEDICAID, SELFPAY ==
--- NOTE | 2020-06-09 06:09 | ED.GENADUL_ITS ---
Discharge Plan Disposition Patient Disposition: HOME Condition: Good Discharge Details Clinical Impression: Carpal tunnel syndrome, Neuropathic pain Primary Care Provider: Edie Ellis ED Provider: Yoni Harris Meds and New Rx's Prescriptions: New prednisone 20 mg tablet 40 mg PO DAILY Qty: 10 RF: 0 Continued prochlorperazine maleate [Compazine] 10 mg tablet 10 mg PO BID PRNQty: 20 RF: 0 omeprazole 20 mg capsule,delayed release(DR/EC) 20 mg PO BID Qty: 60 RF: 0 Linzess 145 mcg capsule 145 mcg PO DAILY RF: 0 albuterol sulfate [ProAir HFA] 90 mcg/actuation Hfa Aerosol Inhaler 1 - 2 puff INHALATION PRN PRNRF: 0 ibuprofen 800 mg tablet 800 mg PO QID PRNRF: 0 pregabalin [Lyrica] 150 mg Capsule 150 mg PO BID RF: 0 Zelnorm 6 mg Tablet 6 mg PO BID RF: 0 cyanocobalamin (vitamin B-12) 1,000 mcg tablet 1,000 mcg PO DAILY RF: 0 cholecalciferol (vitamin D3) 25 mcg (1,000 unit) tablet 2,000 unit PO DAILY RF: 0 lactulose 10 gram/15 mL solution 15 ml PO BID PRNRF: 0 diclofenac sodium [Voltaren] 1 % gel 2 g topical QID Qty: 100 RF: 0 tizanidine 2 mg Tablet 2 mg PO BID RF: 0 polyethylene glycol 3350 [Miralax] 17 gram Powder In Packet 17 g PO DAILY PRNRF: 0 citalopram 20 mg Tablet 20 mg PO HS RF: 0 albuterol sulfate [Ventolin HFA] 90 mcg/actuation Hfa Aerosol Inhaler 2 puff INHALATION 6XD PRNRF: 0 Discharge Instructions Additional Instructions: Continue to wear the splint and use the gel previously prescribed. Please take the prednisone as directed. 4 Vicodin for use until follow-up with primary in [address] you on referral list for orthopedics to see if we can get you in sooner. Referrals: [facility] [Provider Group] Edie Ellis [Primary Care Provider] - Medical Decision Making Agree with diagnosis of carpal tunnel syndrome. Recommend continuing splint, nonsteroidals gel. Will burst with prednisone. Patient requesting pain medication until she can see primary. Agreed to provide Vicodin to go. Would not prescribe anything stronger. Will place on orthopedic referral list to try to get an earlier appointment. HPI General Mode of arrival: ambulatory . Date/Time Provider Initiated Documentation: 06/09/20 06:09 . Limitations to Documentation: no limitations . Information obtained by: patient and RN notes reviewed . HPI Narrative: Patient presents to ED with continued/worsening right wrist and hand pain. Seen last week and diagnosed as carpal tunnel. Has been wearing the splint, using the diclofenac gel, taking ibuprofen as directed. Does have follow-up appointment with primary care in 2 days. Cannot be seen by orthopedics until mid July. Is having difficulty sleeping and has burning pain in the wrist down into the thumb, index, long finger. Occasionally pain up into the forearm. Difficulty holding objects more so because of pain as opposed to true weakness. Related Data Home Medications Medication Instructions Recorded Confirmed albuterol sulfate [Ventolin HFA] 2 puff INHALATION 6XD PRN 09/02/19 06/09/20 citalopram 20 mg PO HS 09/02/19 06/09/20 polyethylene glycol 3350 [Miralax] 17 g PO DAILY PRN 09/02/19 05/30/20 tizanidine 2 mg PO BID 09/02/19 01/07/20 omeprazole 20 mg PO BID #60 cap 12/20/19 05/30/20 prochlorperazine maleate 10 mg PO BID PRN #20 tab 12/20/19 01/07/20 [Compazine] Linzess 145 mcg PO DAILY 12/26/19 06/09/20 Zelnorm 6 mg PO BID 05/30/20 05/30/20 albuterol sulfate [ProAir HFA] 1 - 2 puff INHALATION PRN PRN 05/30/20 06/09/20 cholecalciferol (vitamin D3) 2,000 unit PO DAILY 05/30/20 06/09/20 cyanocobalamin (vitamin B-12) 1,000 mcg PO DAILY 05/30/20 06/09/20 diclofenac sodium [Voltaren] 2 g TOPICAL QID #100 g 05/30/20 06/09/20 ibuprofen 800 mg PO QID PRN 05/30/20 06/09/20 lactulose 15 ml PO BID PRN 05/30/20 05/30/20 pregabalin [Lyrica] 150 mg PO BID 05/30/20 06/09/20 prednisone 40 mg PO DAILY #10 tab 06/09/20 Previous Rx's Medication Instructions Recorded omeprazole 20 mg PO BID #60 cap 12/20/19 prochlorperazine maleate 10 mg PO BID PRN #20 tab 12/20/19 [Compazine] diclofenac sodium [Voltaren] 2 g TOPICAL QID #100 g 05/30/20 prednisone 40 mg PO DAILY #10 tab 06/09/20 Allergies Allergy/AdvReac Type Severity Reaction Status Date / Time lisinopril AdvReac Mild cough Unverified 05/30/20 09:58 hydrocodone AdvReac Headache Verified 05/30/20 09:58 General CLIFFORD: 4 Review of Systems Constitutional Constitutional: Denies fever(s) Cardiovascular Cardiovascular: Denies dyspnea Respiratory Respiratory: Denies cough and Denies dyspnea Musculoskeletal Musculoskeletal: Reports limited range of motion (Right wrist) and Reports numbness Integumentary/Breasts Skin/Breast: Denies change in pigmentation and Denies erythema Neurologic Neurologic: Reports burning sensations and Reports numbness [facility] Medical History Abdominal hernia just above umbilicus Abdominal pain chronic RLQ pain that did not improve with ureteroscopy. LUQ pain. W/U at [facility]. Pt thinks that she has hiatal hernia. No evidence on imaging studies. Asthma stable. no exacerbations for 1 yr. 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 Chronic back pain Diarrhea due to drug GERD (gastroesophageal reflux disease) Hematuria Hiatal hernia Hypertension IBS (irritable bowel syndrome) Insomnia Patellofemoral syndrome, right Postoperative seroma Prediabetes Recurrent umbilical hernia with incarceration Right knee pain Tobacco use Surgical History bone spur R foot. History of hernia repair History of hernia surgery Hx of esophagogastroduodenoscopy Ligation of fallopian tube Status post Molly fundoplication Tooth extraction Social History Smoking/Tobacco Use Status: Current every day Tobacco Type: cigarettes Smoking risk assessment performed?: Yes Alcohol Intake: never Drug use: Never Substance use type: does not use Current gender identity: female Do you feel safe at home: Yes Do you feel safe in your relationship?: Yes History History Para 0 Hx # Term Pregnancies Multiple births Hx # Pregnancies Ectopic pregnancies AB induced Hx Number of Living Children AB spontaneous Exam Narrative Exam Narrative: Const: WDWN female in NAD. HEENT: NC/AT. Normal facial exam. Neck: Supple. Trachea midline. Lungs: Normal respiratory effort. Neuro: A+O x 3. Normal speech, mentation, gait. Cranial nerves II - XII grossly intact. Nonfocal but unable to perform good strength exam of right hand due to complaints of severe pain. Burning and numbness involving median nerve distribution. Ext: No abnormal swelling of upper extremities or hand. Limited range of motion of right wrist and hand due to pain. Skin: Warm and dry without erythema or rash.
[2020-06-09 06:10] VITALS: BP 148/84; PULSE 84; RESP 18; TEMP 36.6; O2SAT 98
== END 2020-06-09 06:57 | disposition home or self-care (01) ==
PROVIDERS: Emergency Provider Emergency Medicine; PCP Nurse Practitioner Adult Health
DX: G56.01 Carpal tunnel syndrome, right upper limb (principal)
CPT/HCPCS: 99283

== ENCOUNTER 2020-07-08 09:46 | Emergency (ER) | payer MEDICARE, MEDICAID, SELFPAY ==
[2020-07-08 09:49] VITALS: BP 155/90; PULSE 91; RESP 16; TEMP 36.8; O2SAT 98
--- NOTE | 2020-07-08 10:06 | ED.GENADUL_ITS ---
Discharge Plan Disposition Patient Disposition: HOME Condition: Stable Discharge Details Clinical Impression: Right wrist sprain, Sprain of forearm, right Primary Care Provider: Edie Ellis ED Provider: Samuel Patricio Home Meds and New Rx's Prescriptions: New tramadol 100 mg tablet 100 mg PO BID PRN (Reason: pain) Qty: 10 RF: 0 Continued atorvastatin 20 mg tablet 20 mg PO DAILY RF: 0 Linzess 290 mcg capsule 290 mcg PO DAILY RF: 0 ibuprofen 800 mg tablet 800 mg PO TID PRNRF: 0 albuterol sulfate [ProAir HFA] 90 mcg/actuation Hfa Aerosol Inhaler 1 - 2 puff INHALATION PRN PRNRF: 0 pregabalin [Lyrica] 150 mg Capsule 150 mg PO BID RF: 0 cyanocobalamin (vitamin B-12) 1,000 mcg tablet 1,000 mcg PO DAILY RF: 0 cholecalciferol (vitamin D3) 25 mcg (1,000 unit) tablet 2,000 unit PO DAILY RF: 0 diclofenac sodium [Voltaren] 1 % gel 2 g topical QID Qty: 100 RF: 0 polyethylene glycol 3350 [Miralax] 17 gram Powder In Packet 17 g PO DAILY PRNRF: 0 citalopram 20 mg Tablet 20 mg PO HS RF: 0 Discharge Instructions Instructions: Wrist Sprain (ED) Additional Instructions: Your xrays did not show any concerning findings continue using the diclofenac gel. Also use 1000mg tylenol and 600mg ibuprofen every 6 hours for pain do not drink alcohol or drive heavy machinery if you take the tramadol follow up with ortho as scheduled if you have severe worsening pain, fevers, or severe swelling return to the emergency department Medical Decision Making 40 yo female who was diagnosed with carpal tunnel syndrome last month and is wearing a splint on the right wrist comes in with increased pain in the right wrist. She states it started yesterday evening after her father was falling out of the bed of a pickup truck and she caught him which increased the pain in the right wrist. No falls or other trauma. She localizes the pain to the mid right wrist and forearm. She has limited range of motion due to the pain, normal distal sensation and pulses and no pain in the fingers or hand, full range of motion of the elbow and normal pulses. No erythema or warmth. Suspect sprain but will xray to evaluate for possible fracture. No snuffbox tenderness so doubt scaphoid fracture. No swelling and soft muscles so doubt compartment syndrome xrays unremarkable, suspect sprain, placed in thumb spica splin and has f/u on July 28 with ortho. REturn precautions given Differential Diagnosis Differential Diagnosis: strain, sprain, tendonitis Medical Records Medical records reviewed: Yes I reviewed the patient's medical records. Imaging Data Radiologic Study: Attestation: I personally reviewed and interpreted this imaging study as follows: Imaging: X-Ray Radiologist's impression: no acute findings wrist xray Radiologic Study #2: Attestation: I personally reviewed and interpreted this imaging study as follows: Imaging: X-Ray Radiologist's impression: no acute findings forearm xray HPI General Mode of arrival: ambulatory . Date/Time Provider Initiated Documentation: 07/08/20 09:58 . Limitations to Documentation: no limitations . Information obtained by: patient . History of Present Illness 40 year old F presents to the emergency department with the chief complaint of right arm pain, described as moderate, Quality is described as aching, and is localized to the right and upper extremity. Patient reports no radiation. Patient started experiencing this day(s) (1) and it has been constant. Rest improves symptom(s), Movement worsens symptoms . Patient notes no other symptoms.. Patient did receive the following treatments prior to arrival, NSAID Related Data Home Medications Medication Instructions Recorded Confirmed citalopram 20 mg PO HS 09/02/19 07/08/20 polyethylene glycol 3350 [Miralax] 17 g PO DAILY PRN 09/02/19 07/08/20 albuterol sulfate [ProAir HFA] 1 - 2 puff INHALATION PRN PRN 05/30/20 07/08/20 cholecalciferol (vitamin D3) 2,000 unit PO DAILY 05/30/20 07/08/20 cyanocobalamin (vitamin B-12) 1,000 mcg PO DAILY 05/30/20 07/08/20 diclofenac sodium [Voltaren] 2 g TOPICAL QID #100 g 05/30/20 07/08/20 pregabalin [Lyrica] 150 mg PO BID 05/30/20 07/08/20 atorvastatin 20 mg tablet 20 mg PO DAILY 06/18/20 07/08/20 ibuprofen 800 mg tablet 800 mg PO TID PRN tab 06/18/20 07/08/20 linaclotide 290 mcg capsule 290 mcg PO DAILY 06/18/20 07/08/20 tramadol 100 mg PO BID PRN #10 tab 07/08/20 Previous Rx's Medication Instructions Recorded diclofenac sodium [Voltaren] 2 g TOPICAL QID #100 g 05/30/20 tramadol 100 mg PO BID PRN #10 tab 07/08/20 Allergies Allergy/AdvReac Type Severity Reaction Status Date / Time lisinopril AdvReac Mild cough Unverified 07/08/20 09:55 hydrocodone AdvReac Headache Verified 07/08/20 09:55 General Stated Complaint: Orthopedic CLIFFORD: 4 Review of Systems All systems reviewed & are unremarkable except as noted in HPI and below Constitutional Constitutional: Denies chills and Denies fever(s) Cardiovascular Cardiovascular: Denies chest pain and Denies dyspnea Respiratory Respiratory: Denies cough and Denies dyspnea Gastrointestinal Gastrointestinal: Denies abdominal pain, Denies nausea and Denies vomiting Musculoskeletal Musculoskeletal: Denies joint swelling [facility] Medical History (Updated 07/08/20 @ 10:36 by Samuel Patricio MD) Abdominal hernia just above umbilicus Abdominal pain chronic RLQ pain that did not improve with ureteroscopy. LUQ pain. W/U at [facility]. Pt thinks that she has hiatal hernia. No evidence on imaging studies. Asthma stable. no exacerbations for 1 yr. 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 Chronic back pain Diarrhea due to drug Generalized anxiety disorder GERD (gastroesophageal reflux disease) Hematuria Hiatal hernia History of IBS History of prediabetes Hypertension IBS (irritable bowel syndrome) Insomnia Low back pain Myofascial pain syndrome Obesity Pain, joint, knee, left Patellofemoral syndrome, right Peripheral neuropathy Postoperative seroma Prediabetes Recurrent umbilical hernia with incarceration Right knee pain Smoker Tobacco dependence Tobacco use Vitamin B12 deficiency Vitamin B12 deficiency (non anemic) Vitamin D deficiency Surgical History bone spur R foot. History of hernia repair History of hernia surgery Hx of esophagogastroduodenoscopy Ligation of fallopian tube Status post Molly fundoplication Tooth extraction Social History Smoking/Tobacco Use Status: Current every day Tobacco Type: cigarettes Smoking risk assessment performed?: Yes Alcohol Intake: never Drug use: Never Substance use type: does not use Current gender identity: female Do you feel safe at home: Yes Do you feel safe in your relationship?: Yes History History Para 0 Hx # Term Pregnancies Multiple births Hx # Pregnancies Ectopic pregnancies AB induced Hx Number of Living Children AB spontaneous Exam Const General: no acute distress Orientation: alert HENMT Head: normal to inspection Ears: external ears normal General nose exam: external nose normal Mouth: moist mucous membranes Eyes General: appearance normal, both eyes and all related structures Neck Neck: normal visual inspection Resp Effort & Inspection: normal respiratory effort and able to speak in complete sentences Cardio Rate: regular rate Skin General skin exam: no rashes or lesions noted Neuro General: patient alert and patient oriented x3 Extrem General: normal to inspection Psych Mental Status: mental status grossly normal Course Vital Signs Vital signs: Vital Signs Temperature 36.8 C 07/08/20 09:49 Pulse 91 H 07/08/20 09:49 Respiratory Rate 16 07/08/20 09:49 Blood Pressure 155/90 H 07/08/20 09:49 Pulse Oximetry 98 07/08/20 09:49 Temperature 36.8 C 07/08/20 09:49 Temperature Source Oral 07/08/20 09:49 Pulse 91 H 07/08/20 09:49 Respiratory Rate 16 07/08/20 09:49 Respiratory Effort Non-Labored 07/08/20 09:54 Blood Pressure 155/90 H 07/08/20 09:49 Blood Pressure Position Sitting 07/08/20 09:49 Pulse Oximetry 98 07/08/20 09:49 Oxygen Delivery Method Room Air 07/08/20 09:49 Oxygen Flow Rate 0 07/08/20 09:49 Pain Level 10 07/08/20 10:01
[2020-07-08] MEDS: traMADol 50 MG TAB PO (10:08)
--- NOTE | 2020-07-08 10:20 | DI.RAD_ITS ---
Exam(s) XR FOREARM RT XR WRIST RT COMPLETE EXAM: XR WRIST RT COMPLETE CLINICAL HISTORY: pain. TECHNIQUE: 2D digital imaging was performed. COMPARISON: CR RIGHT HAND COMPLETE from 08/09/2009 CR XR finger RT index from 06/01/2018 CR XR finger RT index from 06/09/2018 CR XR WRIST RT COMPLETE from 05/30/2020 CR XR FOREARM RT from 07/08/2020 FINDINGS: BONES: No acute fracture is present. No bony destructive lesion is seen. JOINTS: The carpal bones are normally aligned. The elbow is unremarkable. Minimal degenerative yue nges. SOFT TISSUE: Normal. IMPRESSION: Unremarkable radiographs of the right wrist and right forearm. DATA REPOSITORY: RADIATION DOSE DELIVERED:
== END 2020-07-08 10:47 | disposition home or self-care (01) ==
PROVIDERS: Emergency Provider Emergency Medicine; PCP Nurse Practitioner Adult Health
DX: S63.591A Other specified sprain of right wrist, initial encounter (principal); X50.0XXA Overexertion from strenuous movement or load, initial encounter
CPT/HCPCS: 29125; 99284; 73090; 73110; 99283

== ENCOUNTER → 2020-07-28 08:43 | Outpatient (BNVA) | payer MEDICARE, MEDICAID, SELFPAY | PROVIDERS: PCP Nurse Practitioner Adult Health; Referring Provider Nurse Practitioner Adult Health; Visit Provider Student in an Organized Health Care Education/Training Program | DX: G56.01 Carpal tunnel syndrome, right upper limb (principal) | CPT/HCPCS: 99213 ==

== ENCOUNTER → 2020-08-07 08:32 | Outpatient (BNVA) | payer MEDICARE, MEDICAID, SELFPAY | PROVIDERS: PCP Nurse Practitioner Adult Health; Referring Provider Physician Assistant; Visit Provider Psychiatry & Neurology Neurology | DX: M25.531 Pain in right wrist (principal); R20.0 Anesthesia of skin | CPT/HCPCS: 95909; 99213 ==

== ENCOUNTER 2020-08-13 10:01 | Day surgery (SDC) | payer MEDICARE, MEDICAID, SELFPAY ==
[2020-08-13 10:20] VITALS: BP 134/83; PULSE 93; RESP 18; TEMP 36.1; O2SAT 98
[2020-08-13] MEDS: Lactated Ringers 1,000 ML 80 ML IV (10:40)
--- NOTE | 2020-08-13 11:02 | ANES.PREOP_ITS ---
General Info Date of Service Date Performed: 08/13/20 Height: 4 ft 10.5 in Weight: 71.3 kg Body Mass Index (BMI): 32.3 Surgical Procedure: Operation Date: 08/13/20 12:40 Proposed Procedures Side Surgeon p Wrist ECTR Right Cisco Smith MD Meds Allergies and Home Medications Allergies Allergy/AdvReac Type Severity Reaction Status Date / Time lisinopril AdvReac Mild cough Verified 08/13/20 10:18 hydrocodone AdvReac Headache Verified 08/13/20 10:18 Home Medication Medication Instructions Recorded albuterol sulfate [ProAir HFA] 1 - 2 puff INHALATION PRN PRN 05/30/20 cholecalciferol (vitamin D3) 2,000 unit PO DAILY 05/30/20 cyanocobalamin (vitamin B-12) 1,000 mcg PO DAILY 05/30/20 pregabalin [Lyrica] 150 mg PO BID 05/30/20 atorvastatin 20 mg tablet 20 mg PO DAILY 06/18/20 ibuprofen 800 mg tablet 800 mg PO TID PRN tab 06/18/20 linaclotide 290 mcg capsule 290 mcg PO DAILY 06/18/20 hydrocortisone 2.5 % topical cream 1 applic TOPICAL BID PRN 07/28/20 trazodone 50 mg PO HS 08/12/20 Current Visit Medications: Current Medications Generic Name Dose Route Start Last Admin Trade Name Freq PRN Reason Stop Dose Admin Ringer's Solution 1,000 mls @ 80 mls/hr 08/13/20 06:00 08/13/20 10:40 IV 09/11/20 23:59 80 mls/hr INFUSION JANETT Administration Cefazolin Sodium/Dextrose 2 gm in 50 mls @ 100 mls/hr 08/13/20 06:00 Ancef Duplex IVPB 09/11/20 23:59 PREOP JANETT IV Miscellaneous Supplies 1 each 08/13/20 06:00 Iv Access IV 09/11/20 23:59 DIRECTED JANETT Sodium Chloride 0 ml 08/13/20 06:00 Normal Saline Flush 10 Ml Syr IV 09/11/20 23:59 PRN PRN Sodium Chloride 0 ml 08/13/20 06:00 Normal Saline 10 Ml Vial IJ 09/11/20 23:59 DIRECTED PRN Sterile Water 0 ml 08/13/20 06:00 Water,Injection,Sterile 10 Ml Vial IJ 09/11/20 23:59 DIRECTED PRN PFS Active Problems Active Problems: Problem Status Onset Code Right carpal tunnel syndrome G56.01 Right wrist sprain S63.501A Sprain of forearm, right S63.501A Vitamin B12 deficiency E53.8 Acute pain of right wrist M25.531 Carpal tunnel syndrome G56.00 Gastric ulcer K25.9 Knee sprain S83.90XA Knee contusion S80.00XA Knee fracture [id number] Bilateral kidney stones 11/04/15 N20.0 Abdominal wall cellulitis L03.311 Constipation due to pain medication K59.03 Neuropathic pain M79.2 Abdominal pain R10.9 Patellofemoral syndrome, right M22.2X1 Right knee pain M25.561 History of hernia surgery Z98.890, Z87.19 Abdominal hernia K46.9 Recurrent umbilical hernia with incarceration K42.0 Medical History Medical History Abdominal hernia just above umbilicus Abdominal pain chronic RLQ pain that did not improve with ureteroscopy. LUQ pain. W/U at [facility]. Pt thinks that she has hiatal hernia. No evidence on imaging studies. Asthma stable. no exacerbations for 1 yr. 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 Chronic back pain Diarrhea due to drug Generalized anxiety disorder GERD (gastroesophageal reflux disease) Hematuria Hiatal hernia History of IBS History of prediabetes Hypertension IBS (irritable bowel syndrome) Insomnia Low back pain Myofascial pain syndrome Obesity Pain, joint, knee, left Patellofemoral syndrome, right Peripheral neuropathy Postoperative seroma Prediabetes Recurrent umbilical hernia with incarceration Right knee pain Smoker Tobacco dependence Tobacco use Vitamin B12 deficiency Vitamin B12 deficiency (non anemic) Vitamin D deficiency Surgical History Surgical History bone spur R foot. History of hernia repair History of hernia surgery Hx of esophagogastroduodenoscopy Ligation of fallopian tube Status post Molly fundoplication Tooth extraction Tobacco Smoking/Tobacco Use Status: Current every day (1/2 - 3/4 pack a day) Tobacco Type: cigarettes Smoking packs per day: 0.5 Smoking cigarettes per day: 10.0 Alcohol Alcohol Intake: never Substance Use Substance use: Never Substance use type: does not use Prental History History Para 0 Hx # Term Pregnancies Multiple births Hx # Pregnancies Ectopic pregnancies AB induced Hx Number of Living Children AB spontaneous Vital Signs and Lab Results Vital Signs Most Recent Vital Signs in EMR: Most Recent Vital Signs Temp Pulse Resp BP Pulse Ox 36.1 C L 93 H 18 134/83 98 08/13/20 10:20 08/13/20 10:20 08/13/20 10:20 08/13/20 10:20 08/13/20 10:20 Lab Results Blood Type / Crossmatch: No Data to Display Complete Blood Count: No Data to Display Complete Metabolic Panel: No Data to Display Liver Function Panel: No Data to Display Coagulation Panel: No Data to Display Cardiac Panel: No Data to Display Arterial Blood Gas: No Data to Display Venous Blood Gas: No Data to Display Pancreas Panel: No Data to Display Thyroid Panel: No Data to Display Infectious Disease: No Data to Display Blood Cultures: No Data to Display Toxicology Panel: No Data to Display Panel: No Data to Display Anesthesia Assessment and Plan Anesthesia History Personal History: No History of Anesthesia Complications Family History: No Family History of Anesthesia Complications Exercise Tolerance Exercise Tolerance: Metabolic Equivalents>4 Pertinent Negatives Pertinent Negatives: No Symptoms of GERD (Well controlled with medication), No Major Cardiovascular Symptoms or Complaints, No Major Pulmonary Symptoms or Complaints (Asthma well controlled today, no sx's today) and No History of CVA/TIA Cardiac & Pulmonary Exam Cardiac Exam: Normal S1/S2 Heart Sounds Pulmonary Exam: Clear Bilateral Breath Sounds Airway Exam Known Difficult Airway: No Mallampati Class: 2 Mouth Opening: Normal (> 3cm) Thyromental Distance: Greater than 3 cm Neck Range of Motion: Full ROM Neck Circumference: Normal Teeth Condition: Normal Dentition (Poor dentition on bottom) and Removable Dentures/Plates Upper (Upper) ASA Classification ASA Score: ASA 2 Emergency Case?: No NPO Status NPO Status: NPO Clears >2 hours, Solids >8 hours Status Status: Not Relevant due to Medical History Anesthesia Plan Resuscitation Status: Full Code Anesthesia Technique: General Anesthesia Airway Planned: Natural Airway Monitors Used: Standard Monitors
[2020-08-13 11:10] VITALS: BMI 32.3
--- NOTE | 2020-08-13 11:15 | W.PM.DSUDISC ---
Discharge Plan Disposition Patient Disposition: HOME Condition: Good Discharge Details Reason For Visit: R ECTR Attending Provider: Cisco Smith Primary Care Provider: Edie Ellis Home Meds and New Rx's Prescriptions: New acetaminophen 500 mg capsule 1,000 mg PO Q8H PRN PRNQty: 90 RF: 0 ibuprofen 600 mg tablet 600 mg PO TID PRN (Reason: pain) Qty: 30 RF: 0 oxycodone 5 mg tablet 5 mg PO Q8H MDD 15mg PRN (Reason: pain) Qty: 10 RF: 0 Continued hydrocortisone 2.5 % cream 1 applic topical BID PRNRF: 0 atorvastatin 20 mg tablet 20 mg PO DAILY RF: 0 Linzess 290 mcg capsule 290 mcg PO DAILY RF: 0 albuterol sulfate [ProAir HFA] 90 mcg/actuation Hfa Aerosol Inhaler 1 - 2 puff INHALATION PRN PRNRF: 0 pregabalin [Lyrica] 150 mg Capsule 150 mg PO BID RF: 0 cyanocobalamin (vitamin B-12) 1,000 mcg tablet 1,000 mcg PO DAILY RF: 0 cholecalciferol (vitamin D3) 25 mcg (1,000 unit) tablet 2,000 unit PO DAILY RF: 0 trazodone 100 mg tablet 50 mg PO HS RF: 0 Discontinued ibuprofen 800 mg tablet 800 mg PO TID PRNRF: 0 Discharge Instructions Stand Alone Forms: Luis Connell Tunnel Release Referrals: Cisco Smith MD [ [facility] STAFF PHYSICIAN] - Activity:: Activity as Tolerated Remove Dressings/Wound Care:: 48 hours Shower/Bathe:: 48 hours Diet:: As Tolerated Discharge Orders Discharge Orders: Discharge Order (Routine); Ordered 08/13/20 Ordered By: Abdi Chung DS: Diagnosis Discharge Diagnosis (1) Right carpal tunnel syndrome: Status: Acute
[2020-08-13] MEDS: ceFAZolin 2 GM/50 ML BAG IVPB (11:55)
[2020-08-13] MEDS: Sodium Bicarbonate 50 MEQ/50 ML VIAL (12:09)
--- NOTE | 2020-08-13 12:14 | ROE_ITS ---
Date of service: 08/13/20 Time of Service: 12:14 Operative Note Operative Note DATE OF PROCEDURE: 08/13/20 PRE-OP DIAGNOSIS: Right Carpal Tunnel Syndrome POST-OP DIAGNOSIS: same PROCEDURE: Right Endoscopic Carpal Tunnel Release SURGEON: Cisco Smith ANESTHESIA TYPE: General:No Airway Refer to Anesthesia Record ESTIMATED BLOOD LOSS: 0 PATHOLOGY: none sent TOURNIQUET TIME: 4 COMPLICATIONS: None Patient was transported to: same day Patient's condition: stable Indications: I have seen Ruby in clinic for symptoms of carpal tunnel syndrome. The numbness, tingling, and pain limited function. Clinical exam findings were multifocal and nerve conduction studies were not conclusive but the diagnosis of carpal tunnel syndrome seemed to be the most likely diagnosis. Nonoperative measures such as bracing, time, activity modifications had been tried but disability and pain persisted. I discussed carpal tunnel release with the patient. I reviewed the risks of the procedure to include, but not limited to, bleeding, infection, pain, stiffness, incomplete release, damage to nerves or vessels, persistent numbness, recurrence. Despite these risks, the patient elected to proceed. Findings: There was no significant tightness of the carpal tunnel. It was dilated and released successfully with the endoscopic with increased space within the tunnel. The antebrachial fascia was released proximally freeing the median nerve at the wrist. No masses. Procedure Description: Ruby was greeted in the preoperative holding area where the correct side was identified and marked. The consent was reviewed with the patient and signed. The history and physical was updated. All questions were answered. She was taken back to the operating room. The patient was placed into the supine position on the operating room table with the right arm on an arm board. A nonsterile tourniquet was placed high onto the arm. All bony prominences were well padded. Prophylactic antibiotics in the form of Cefazolin were administer ed. The right arm was then prepped with Chloraprep and draped in a standard fashion with stockinette and extremity drape. A timeout to confirm correct identity, side and site, procedure, allergies, anesthesia, and medical concerns was performed. The surgical site was marked in the volar wrist creases in line with the radial border of the fourth ray. This area was anesthetized with approximately 6cc of 1% Lidocaine. The limb was then exsanguinated with an Esmarch. The skin was incised with a 15 blade, approximately 1cm. The skin only was cut and the deeper tissue was dissected bluntly with a tenotomy scissor, avoiding passing nerve and venous structures. The fascia was penetrated and opened bluntly. A two-prong skin hook was placed under this proximal fascial edge. A series of hamate finders were used to identify and dilate the carpal tunnel. Synovial elevator was used to free synovial attachments to the underside of the transverse carpal ligament. My thumb was kept in the palm to helen the distal extent of the carpal tunnel and correctly position the hand. The Microaire endoscope was inserted without difficulty and without resistance. Excellent visualization showed horizontally running fibers of the transverse carpal ligament (TCL). The distal extent of the TCL was visualized and the end of the scope palpated with the thumb. The blade was elevated and withdrawn from distal to proximal. The TCL was split into two flaps. The endoscope was reinserted to confirm complete release and any remnant ligament was incised. The scope was withdrawn and the proximal aspect of the carpal tunnel was grossly inspected and appeared release with the median nerve visible. The antebrachial fascia at the level of the wrist was then freed from the overlying skin and then the underlying median nerve with blunt dissection. This was transected longitudinally for about 3cm proximal to the wrist incision. The wound was then irrigated with easy flow of irrigant distally and proximally. The incision was closed with a single 4-0 Nylon suture. The wound was dressed with Xeroform, Gauze, Kerlix and Marco. The tourniquet was deflated with the initial dressing and held with some pressure. Blood flow returned easily to all digits with capillary refill less than 2 seconds. The patient tolerated the procedure well and was returned to the Same Day Surgery area in a stable condition suffering no known complication.
[2020-08-13 12:20] VITALS: BP 108/63; PULSE 70; RESP 14; TEMP 36.2; O2SAT 94
--- NOTE | 2020-08-13 12:25 | W.ANESPOSTOP ---
Postoperative Evaluation Date, Time and Location Date Performed: 08/13/20 Time Performed: 12:25 Patient Location: Day Surgery Unit Vital Signs Most Recent Imported Vital Signs: Most Recent Vital Signs Temp Pulse Resp BP Pulse Ox 36.1 C L 93 H 18 134/83 98 08/13/20 10:20 08/13/20 10:20 08/13/20 10:20 08/13/20 10:20 08/13/20 10:20 Most Recent Manually Entered Vital Signs: Adult Blood Pressure: 108/63 Heart Rate: 89 Respirations: 14 Oxygen Saturation (%): 92 Temperature (C): 36.2 C Pain Score (0-10 Scale): 0 Pain Score Most Recent Pain Score: 0 Assessment Mental Status: Arousable with meaningful communication Airway and Respiratory Function: Patent airway with normal (patient baseline) respiratory exam Cardiovascular Function: Hemodynamically Stable Hydration Status: Adequately Hydrated Nausea & Vomiting: No Nausea or Vomiting Pain: Pt. Denies Any Pain Peripheral Nerve Block: Patient did not receive a nerve block
[2020-08-13 12:27] VITALS: BP 108/63; PULSE 89; RESP 14; TEMPC 36.2; O2SAT 92
[2020-08-13] MEDS: oxyCODONE 5 MG TAB PO (12:41)
[2020-08-13 12:50] VITALS: BP 119/72; PULSE 72; RESP 16; TEMP 36.3; O2SAT 98
== END 2020-08-13 13:10 | disposition home or self-care (01) ==
PROVIDERS: PCP Nurse Practitioner Adult Health; Visit Provider Student in an Organized Health Care Education/Training Program
PROC: 01N54ZZ Release Median Nerve, Percutaneous Endoscopic Approach (ICD-10-PCS; CPT 29848; principal; 2020-08-13 12:30)
DX: G56.01 Carpal tunnel syndrome, right upper limb (principal)
CPT/HCPCS: 29848; J0690; J2250; J2704

== ENCOUNTER → 2020-08-21 08:20 | Outpatient (BNVA) | payer MEDICARE, MEDICAID, SELFPAY | PROVIDERS: PCP Nurse Practitioner Adult Health; Referring Provider Nurse Practitioner Adult Health; Visit Provider Physician Assistant | DX: Z47.89 Encounter for other orthopedic aftercare (principal); G56.02 Carpal tunnel syndrome, left upper limb | CPT/HCPCS: 99213 ==

== ENCOUNTER 2020-09-24 13:42 | Outpatient (CLI) | payer MEDICARE, MEDICAID, SELFPAY ==
--- NOTE | 2020-09-24 13:15 | DI.RAD_ITS ---
Exam(s) XR WRIST RT COMPLETE EXAM: XR WRIST RT COMPLETE CLINICAL HISTORY: right wrist pain. TECHNIQUE: 2D digital imaging was performed. COMPARISON: CR XR WRIST RT COMPLETE from 07/08/2020 FINDINGS: BONES: No acute fracture is present. No bony destructive lesion is seen. JOINTS: The carpal bones are normally aligned. No significant degenerative changes. SOFT TISSUE: Normal. IMPRESSION: Unremarkable radiographs of the right wrist. DATA REPOSITORY: RADIATION DOSE DELIVERED:
== END 2020-09-24 13:43 | disposition home or self-care (01) ==
LOC: DIORS 13:42
PROVIDERS: PCP Nurse Practitioner Adult Health; Referring Provider Nurse Practitioner Adult Health; Visit Provider Physician Assistant
DX: G56.01 Carpal tunnel syndrome, right upper limb (principal); Z47.89 Encounter for other orthopedic aftercare; G89.18 Other acute postprocedural pain; M25.531 Pain in right wrist
CPT/HCPCS: 73110

== ENCOUNTER 2020-10-21 04:47 | Outpatient (CLI) | payer MEDICARE, MEDICAID, SELFPAY ==
[2020-10-21 09:32] LABS: HCT 32.6 % (36.0-46.0); HGB 10.1 g/dL (11.2-15.7); MCH 21.9 pg (27.0-33.0); MCV 70.6 fL (80-95); MPV 10.6 fL (8.0-11.0); Platelet Count 400 10^3/uL (130-400); RBC 4.62 10^6/uL (3.93-5.22); RDW 18.7 % (11.7-14.6); RDW-SD 46.5 fL; Reticulocyte 1.6 % (0.5-2.4); WBC 10.03 10^3/uL (4.4-10.8)
== END 2020-10-21 04:48 | disposition home or self-care (01) ==
PROVIDERS: PCP Nurse Practitioner Adult Health; Visit Provider Physician Assistant
DX: D64.9 Anemia, unspecified (principal)
CPT/HCPCS: 36415; 85027; 85045

== ENCOUNTER 2020-12-15 12:02 | Outpatient (REF) | payer MEDICARE, MEDICAID, SELFPAY ==
[2020-12-17 12:06] LABS: COVID-19 RT-PCR UVMMC Result Negative (Negative)
== END 2020-12-15 12:03 | disposition home or self-care (01) ==
LOC: LBN 12:02
PROVIDERS: PCP Nurse Practitioner Adult Health; Visit Provider Physician Assistant
DX: Z20.822 Contact with and (suspected) exposure to COVID-19 (principal); R43.8 Other disturbances of smell and taste
CPT/HCPCS: U0003

== ENCOUNTER 2020-12-20 10:27 | Emergency (ER) | payer MEDICARE, MEDICAID, SELFPAY ==
[2020-12-20 10:31] VITALS: BP 130/55; PULSE 69; RESP 16; TEMP 36.4; O2SAT 100
--- NOTE | 2020-12-20 10:39 | W.ED.GENAD ---
Discharge Plan Disposition Patient Disposition: HOME Condition: Good Discharge Details Clinical Impression: Acute oral pain, Jaw pain Primary Care Provider: Edie Ellis ED Provider: Ambreen Robins Home Meds and New Rx's Prescriptions: Continued atorvastatin 20 mg tablet 20 mg PO DAILY RF: 0 albuterol sulfate [ProAir HFA] 90 mcg/actuation Hfa Aerosol Inhaler 1 - 2 puff INHALATION PRN PRNRF: 0 pregabalin [Lyrica] 150 mg Capsule 150 mg PO BID RF: 0 sertraline 100 mg tablet 100 mg PO BOLUSMAXRATE RF: 0 folic acid 1 mg tablet 1 mg DAILY RF: 0 propranolol 20 mg tablet 20 mg PO DAILY RF: 0 amoxicillin-pot clavulanate 875-125 mg tablet 875 tab PO BID RF: 0 Linzess 290 mcg capsule 290 mcg PO DAILY RF: 0 Discharge Instructions Instructions: Toothache (ED) Additional Instructions: Your exam is reassuring here today. I do not see any evidence to suggest infection in your oral cavity. Your exam is very reassuring. As we discussed, this could be persistent discomfort associated with your recent swollen salivary gland, or pain associated with your TMJ. Please encourage hydration. You may continue with Tylenol and/or ibuprofen as needed for comfort. Please take as directed on the bottle. Keep please keep your upcoming dentist appointment. Please follow-up with your primary care in 2 weeks for reevaluation. If you develop fever/chills, swelling or other new/worsening symptom please seek care urgently once again. Referrals: Edie Ellis [Primary Care Provider] - Discharge Data Discharge Date/Time-TO BE ENTERED AT DEPARTURE: 12/20/20 15:45 Medical Decision Making Patient is a 40 year old female presenting today with c/c of dental pain. States that this started one week ago. Initially was seen in urgent care who diagnosed him with blocked salivary duct. She states that she was then seen by PCP 2 days ago who was concerned for, deep space infection and was started on Augmentin. Despite this, patient has had persistent symptoms. She is concerned taht she had some swollen gums. She denies any fevers/chills. No difficulty breathing, no difficulty swallowing. No pain with eating. On exam, patient appears nontoxic. She is handling secretions, normal respirations. Patient is largely edentulous. She indicates the right lower jawline is area of subjective swelling and discomfort. Cannot appreciate any swelling compared to the contralateral side. No discoloration. Normal posterior oropharynx. No swelling under the tongue. No enlarged lymph nodes. No enlarged salivary glands. Moist mucous membranes. She has good range of motion of the TMJ. No erythema or warmth in gums or jawline I do not see any evidence to suggest dental infection, enlarged salivary gland, abscess in the oropharynx, peritonsillar abscess, or Ludwigs. I advised her that if she had developed an infection, it appears to be improving. She reports she did initially have more objective swelling. Advised to continue with the Augmentin. She was concerned she may need a different antibiotic, we discussed antibiotic stewardship. I do not see need to change at this time. She has upcoming dental appointment. Gave APAP and NSAID to help with discomfort, this did begin bringing down her pain. Advised she f/u with PCP in 2 weeks for reevaluation. Return precautions were discussed. All of her questions and concerns were addressed, she is in agreement wt this plan. HPI General Mode of arrival: ambulatory. Date/Time Provider Initiated Documentation: 12/20/20 10:39. Limitations to Documentation: no limitations. Information obtained by: patient and RN notes reviewed. History of Present Illness 40 year old F presents to the emergency department with the chief complaint of right lower jaw pain, described as severe, Quality is described as aching, and is localized to the mouth. Patient reports no radiation. Patient started experiencing this week(s) (1) and it has been constant. No relieving factors improve symptom(s), No exacerbating factors reported . Patient notes no other symptoms.. Patient did receive the following treatments prior to arrival, none Related Data Home Medications Medication Instructions Recorded Confirmed albuterol sulfate [ProAir HFA] 1 - 2 puff INHALATION PRN PRN 05/30/20 12/20/20 pregabalin [Lyrica] 150 mg PO BID 05/30/20 12/20/20 atorvastatin 20 mg tablet 20 mg PO DAILY 06/18/20 12/20/20 Linzess 290 mcg PO DAILY 12/20/20 12/20/20 amoxicillin-pot clavulanate 875 tab PO BID 12/20/20 12/20/20 folic acid 1 mg DAILY 11/06/21 11/06/21 propranolol 20 mg PO DAILY 12/20/20 12/20/20 sertraline 100 mg PO BOLUSMAXRATE 12/20/20 12/20/20 Allergies Allergy/AdvReac Type Severity Reaction Status Date / Time lisinopril AdvReac Mild cough Verified 12/20/20 10:39 hydrocodone AdvReac Headache Verified 12/20/20 10:39 General Stated Complaint: DentalOral CLIFFORD: 4 Review of Systems Constitutional Constitutional: Reports as per HPI, Denies chills, Denies fever(s), Denies headache(s) and Denies poor appetite ENT Ears, Nose, Mouth, and Throat: Reports as per HPI, Reports dental pain, Denies dysphagia, Denies dry mouth, Denies otalgia, Reports facial pain, Denies headache(s), Denies hoarseness, Denies nasal congestion, Denies odynophagia and Denies sore throat Respiratory Respiratory: Reports as per HPI and Denies cough Gastrointestinal Gastrointestinal: Denies dysphagia and Denies odynophagia Integumentary/Breasts Skin/Breast: Reports as per HPI, Denies erythema, Denies rash and Denies skin pain Neurologic Neurologic: Reports as per HPI and Denies headache(s) [facility] Medical History (Updated 12/20/20 @ 11:36 by TELLY Lanza) Abdominal hernia just above umbilicus Abdominal pain chronic RLQ pain that did not improve with ureteroscopy. LUQ pain. W/U at [facility]. Pt thinks that she has hiatal hernia. No evidence on imaging studies. Asthma stable. no exacerbations for 1 yr. 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 Chronic back pain Diarrhea due to drug Generalized anxiety disorder GERD (gastroesophageal reflux disease) Hematuria Hiatal hernia History of IBS History of prediabetes Hypertension IBS (irritable bowel syndrome) Insomnia Left carpal tunnel syndrome Low back pain Myofascial pain syndrome Obesity Pain, joint, knee, left Patellofemoral syndrome, right Peripheral neuropathy Postoperative seroma Prediabetes Recurrent umbilical hernia with incarceration Right knee pain Smoker Tobacco dependence Tobacco use Vitamin B12 deficiency Vitamin B12 deficiency (non anemic) Vitamin D deficiency Surgical History (Updated 08/13/20 @ 11:16 by TELLY Aguilar) bone spur R foot. History of hernia repair History of hernia surgery Hx of esophagogastroduodenoscopy Ligation of fallopian tube Right carpal tunnel syndrome S/P ECTR: 08/13/2020 Status post Molly fundoplication Tooth extraction Family History Mother Diabetes Father Epilepsy Social History Smoking/Tobacco Use Status: Current every day Tobacco Type: cigarettes Smoking packs per day: 0.5 Smoking cigarettes per day: 10.0 Smoking risk assessment performed?: Yes Alcohol Intake: never Drug use: Never Substance use type: does not use Number of Children: 4 current occupation: Disabled Current gender identity: female What is your relationship status?: living with partner Panel score (0-1 are the most socially isolated patients): 1 Do you feel safe at home: Yes Do you feel safe in your relationship?: Yes History History Para 0 Hx # Term Pregnancies Multiple births Hx # Pregnancies Ectopic pregnancies AB induced Hx Number of Living Children AB spontaneous Exam Const General: cooperative, healthy appearing, comfortable, no acute distress, well developed and well groomed Nutritional Appearance: average body habitus and well nourished Orientation: alert and awake [facility] Head: normal to inspection, normocephalic and atraumatic Ears: hearing grossly normal bilaterally, external ears normal and TM's normal bilaterally General nose exam: external nose normal and nares normal Face and sinus: normal facial exam, sinuses nontender, face symmetric, no crepitus, no erythema, no edema, no fluctuance, no sinus tenderness and no tenderness Mouth: oral mucosae normal, lip normal, tongue normal, salivary ducts normal, oropharynx normal, moist mucous membranes, no drooling, no muffled voice, no trismus and No restricted motion Teeth and gingiva: normal gingiva and poor dentition Teeth image: 1. Area of pain. Edentulous in this are. No swelling, erythema, fluctuance, drainage. No swelling under tongue. Normal posterior oropharynx. No swelling to salivary ducts palpable. Handling secretions well. Throat: posterior oropharynx normal, tonsils normal and uvula midline Eyes General: appearance normal, both eyes and all related structures Neck Neck: normal visual inspection, full ROM, no lymphadenopathy, supple and no anterior neck swelling Resp Effort & Inspection: normal respiratory effort, able to speak in complete sentences and no respiratory distress Auscultation: clear to auscultation bilaterally, no rales, no rhonchi and no wheezes Cardio Rate: regular rate Rhythm: regular rhythm Heart Sounds: S1 normal and S2 normal Skin General skin exam: no rashes or lesions noted Trauma: no lacerations or abrasions Neuro General: patient alert and patient awake Cognition: normal cognition Speech: speech normal Gait: normal gait Psych Appearance: grossly normal and well kempt Mental Status: mental status grossly normal Speech and Movement: speech and movement normal Course Vital Signs Vital signs: Vital Signs Temperature 36.4 C L 12/20/20 10:31 Pulse 69 12/20/20 10:31 Respiratory Rate 16 12/20/20 10:31 Blood Pressure 130/55 L 12/20/20 10:31 Pulse Oximetry 100 12/20/20 10:31 Temperature 36.4 C L 12/20/20 10:31 Temperature Source Tympanic 12/20/20 10:31 Pulse 69 12/20/20 10:31 Respiratory Rate 16 12/20/20 10:31 Respiratory Effort Non-Labored 12/20/20 10:36 Blood Pressure 130/55 L 12/20/20 10:31 Blood Pressure Position Sitting 12/20/20 10:31 Pulse Oximetry 100 12/20/20 10:31 Oxygen Delivery Method Room Air 12/20/20 10:31 Oxygen Flow Rate 0 12/20/20 10:31 Pain Level 10 12/20/20 10:31
[2020-12-20] MEDS: Acetaminophen 500 MG TAB 1000 MG PO (11:45)
[2020-12-20] MEDS: Ibuprofen 600 MG TAB PO (11:46)
== END 2020-12-20 15:45 | disposition home or self-care (01) ==
PROVIDERS: Emergency Provider Physician Assistant; PCP Nurse Practitioner Adult Health
DX: R68.84 Jaw pain (principal)
CPT/HCPCS: 99283

== ENCOUNTER 2021-02-04 18:43 | Outpatient (REF) | payer MEDICARE, MEDICAID, SELFPAY ==
--- NOTE | 2021-02-04 14:24 | PAPFT_PTH ---
PATIENT: Ruby Sprague LOC: [facility]#:[id number] AGE/SX: 40/F ROOM: RE02/04/[address]: Caleb Ballard : 1980 BED: DIS: 02/04/2021 SPEC #: [id number] RECD: 02/04/21 18:55 STATUS: TIFFANIE REEdward #: [id number] LATASHA: 02/04/21 14:[address]: Caleb Ballard DEPT: [facility] Cytology RECD BY: Candace He ENTERED: 02/04/21 18:56 SP TYPE: PAPFT IKE DR: Edie Ellis Tissues: 1 - CX/ENDOCX FOR PAP SMEARS Procedures: PAP THIN PREP/UVM Screening HPV DNA PROBE Comments: [id number]
== END 2021-02-04 18:44 | disposition home or self-care (01) ==
LOC: NCHCN 18:43
PROVIDERS: PCP Nurse Practitioner Adult Health; Visit Provider Physician Assistant
DX: Z01.419 Encounter for gynecological examination (general) (routine) without abnormal findings (principal); Z11.51 Encounter for screening for human papillomavirus (HPV); Z12.4 Encounter for screening for malignant neoplasm of cervix; R10.2 Pelvic and perineal pain
CPT/HCPCS: 88142; 87480; 87510; 87624; 87660

== ENCOUNTER 2021-05-05 00:55 | Outpatient (CLI) | payer MEDICARE, MEDICAID, SELFPAY ==
--- NOTE | 2021-05-05 13:00 | DI.US_ITS ---
Exam(s) US PELVIS TRANSVAGINAL EXAM: US PELVIS TRANSVAGINAL CLINICAL HISTORY: PELVIC PAIN R10.2 W/ IRREGULAR MENSTRUATION TECHNIQUE: Transabdominal and transvaginal imaging was performed using standard protocol. COMPARISON: CT CT ABDOMEN PELVIS W from 12/20/2019 FINDINGS: KIDNEYS: Kidneys are symmetric in size. No evidence of renal calculi. No evidence of hydronephrosis. No renal mass or cyst identified. UTERUS: Anteverted. 8.3 x 4.3 x 5.9 cm Endometrium: 3 millimeters Myometrium: Heterogeneous. No focal fibroids. Cervix: Unremarkable. OVARIES: Right: Cyst or mass: None. Left: Cyst or mass: None. DOPPLER: Color: Symmetric and uniform flow to both ovaries. No hyperemia. CUL-DE-SAC: Free fluid: None. IMPRESSION: 1. Heterogeneous myometrium. Endometrial stripe within normal limits. 2. Unremarkable bilateral ovaries. DATA REPOSITORY:
== END 2021-05-05 01:15 ==
PROVIDERS: PCP Nurse Practitioner Adult Health; Visit Provider Physician Assistant
DX: R10.2 Pelvic and perineal pain (principal)
CPT/HCPCS: 76830; 76856

== ENCOUNTER 2021-05-29 13:13 | Outpatient (REF) | payer MEDICARE, MEDICAID, SELFPAY ==
[2021-05-29 20:41] LABS: HGB 12.9 g/dL (11.2-15.7)
[2021-05-31 13:16] LABS: Chlamydia Result Negative (Negative); GC Result Negative (Negative)
[2021-06-01 09:51] LABS: Syphilis Serology (RPR) Negative (Negative)
[2021-06-01 10:12] LABS: Hepatitis C Ab w Rflx HCV PCR Negative (Negative)
[2021-06-01 15:25] LABS: HIV-1/2 Ag & Ab Screen Negative (Negative)
== END 2021-05-29 13:14 | disposition home or self-care (01) ==
LOC: NCHCN 13:13
PROVIDERS: PCP Nurse Practitioner Adult Health; Visit Provider Physician Assistant
DX: Z11.3 Encounter for screening for infections with a predominantly sexual mode of transmission (principal); R10.2 Pelvic and perineal pain; D64.9 Anemia, unspecified; Z72.89 Other problems related to lifestyle
CPT/HCPCS: 86803; 87389; 87491; 87591; 85018; 86592; 87480; 87510; 87660

== ENCOUNTER 2021-08-03 08:08 | Emergency (ER) | payer MEDICARE, MEDICAID, SELFPAY ==
[2021-08-03 08:13] VITALS: BP 134/56; PULSE 87; RESP 17; TEMP 36.7; O2SAT 100
--- NOTE | 2021-08-03 08:45 | DI.RAD_ITS ---
Exam(s) XR FOOT LT COMPLETE EXAM: XR FOOT LT COMPLETE CLINICAL HISTORY: distal 4 5th metatarsal/toe injury. TECHNIQUE: 2D digital imaging was performed of the left foot. Three images were obtained. AP, obli que and lateral views were obtained. COMPARISON: CR LEFT FOOT COMPLETE from 03/03/2014 FINDINGS: BONES: No acute fracture is present. No bony destructive lesion is seen. JOINTS: No dislocation present. SOFT TISSUE: Normal. IMPRESSION: No acute fracture or dislocation. DATA REPOSITORY: RADIATION DOSE DELIVERED:
--- NOTE | 2021-08-03 09:12 | ED.GENADUL_ITS ---
Discharge Plan Disposition Patient Disposition: HOME Condition: Stable Discharge Details Clinical Impression: Foot pain, left Primary Care Provider: Caleb Ballard ED Provider: Bj Prince Home Meds and New Rx's Prescriptions: No Action atorvastatin 20 mg tablet 20 mg PO DAILY albuterol sulfate [ProAir HFA] 90 mcg/actuation Hfa Aerosol Inhaler 1 - 2 puff INHALATION PRN PRN pregabalin [Lyrica] 150 mg Capsule 150 mg PO DAILY sertraline 100 mg tablet 100 mg PO BOLUSMAXRATE Label Comments: TAKE 1 TABLET BY MOUTH EVERY DAY folic acid 1 mg tablet 1 mg DAILY Label Comments: TAKE 1 TABLET BY MOUTH DAILY propranolol 20 mg tablet 20 mg PO DAILY Label Comments: TAKE 1 TABLET BY MOUTH TWICE DAILY NEEDED FOR ANXIETY Linzess 290 mcg capsule 290 mcg PO DAILY Label Comments: TAKE 1 CAPSULE BY MOUTH DAILY ferrous sulfate [iron] 325 mg (65 mg iron) Tablet 325 mg PO DAILY topiramate 100 mg tablet 1 tab PO HS Label Comments: TAKE 1 TABLET BY MOUTH EVERY NIGHT Discharge Instructions Instructions: Foot Sprain (ED) Additional Instructions: You may continue to use [id number] pain medication as needed for discomfort. It is recommended that with any activity you use the postop shoe for additional support and allow for plenty of rest over the next 3 days with slowly increasing activity as tolerated by discomfort and swelling. You have been placed on a follow-up list to follow-up with orthopedist for reassessment and please contact their office in 2 days for arrangement of your appointment. Referrals: [facility] [Provider Group] Medical Decision Making Patient presenting to the emergency department for chief complaint of left foot pain. She reports injury to her fourth and fifth toes and metatarsals approximately 2 months ago. Her primary care provider at the time did not see t he need for radiological imaging but her pain has continued and not improved. She does report that she is recommended to wear a hard soled shoe but was unable to. Patient denies any new injury or trauma. Does state some intermittent swelling with increased activity and continued significant pain. Physical exam shows tenderness to even light touch to the fourth and fifth digit, normal appearance to foot and no obvious ecchymosis or other signs of injury or trauma. We will plan on performing radiological imaging for evaluation of fracture. Review of radiological imaging shows no signs of acute or subacute fracture. No dislocation, otherwise unremarkable acute x-ray imaging of the left foot. Suspect possible foot sprain with patient continuing to have repetitive injury given that she is not allowing for rest or appropriate footwear to aid in healing. Will place patient in postop shoe, encouraged continued use of [id number] pain medication along with rest over the next couple days, and to follow-up with orthopedic for reassessment given 2 months of discomfort. After discussion of diagnosis and plan of care patient has no further needs, questions, or concerns and states clear understanding to return to the emergency department for any worsening symptoms. This documentation was generated using [employer] system, please disregard any oddities of phrase or misspellings. Imaging Data Radiologic Study: Imaging: X-Ray Radiologist's impression: FINDINGS: BONES: No acute fracture is present. No bony destructive lesion is seen. JOINTS: No dislocation present. SOFT TISSUE: Normal. IMPRESSION: No acute fracture or dislocation. HPI General Mode of arrival: ambulatory . Date/Time Provider Initiated Documentation: 08/03/21 08:49 . Limitations to Documentation: no limitations . Information obtained by: patient, RN notes reviewed and old records reviewed . History of Present Illness 41 year old F presents to the emergency department with the chief complaint of lefyt foot injury, described as severe, with intensity rated at 10. Quality is described as aching, and is localized to the left and lower extremity. Patient reports no radiation. Patient started experiencing this month(s) (2) and it has been constant. No relieving factors improve symptom(s), Movement worsens symptoms . Patient notes no other symptoms.. Patient did receive the following treatments prior to arrival, none Related Data Home Medications Medication Instructions Recorded Confirmed albuterol sulfate 90 mcg/actuation 1 - 2 puff inhalation PRN PRN 05/30/20 08/03/21 aerosol inhaler (ProAir HFA) pregabalin 150 mg capsule (Lyrica) 150 mg PO DAILY 05/30/20 08/03/21 atorvastatin 20 mg tablet 20 mg PO DAILY 06/18/20 08/03/21 folic acid 1 mg tablet 1 mg DAILY 12/20/20 08/03/21 linaclotide 290 mcg capsule 290 mcg PO DAILY 12/20/20 08/03/21 (Linzess) propranolol 20 mg tablet 20 mg PO DAILY 12/20/20 08/03/21 sertraline 100 mg tablet 100 mg PO BOLUSMAXRATE 12/20/20 08/03/21 ferrous sulfate 325 mg (65 mg 325 mg PO DAILY 08/03/21 08/03/21 iron) tablet (iron) topiramate 100 mg tablet 1 tab PO HS 08/03/21 08/03/21 Allergies Allergy/AdvReac Type Severity Reaction Status Date / Time lisinopril AdvReac Mild cough Verified 08/03/21 08:21 hydrocodone AdvReac Headache Verified 08/03/21 08:21 General Stated Complaint: Orthopedic CLIFFORD: 4 Review of Systems Narrative: 6 systems reviewed and unremarkable except what is marked below. Musculoskeletal Musculoskeletal: Reports as per HPI, Reports arthralgias, Reports joint swelling (Intermittently with increased use), Denies numbness and Denies tingling Integumentary/Breasts Skin/Breast: Denies erythema and Denies rash Neurologic Neurologic: Denies numbness and Denies tingling PFSH All Active Problems (Updated 08/03/21 @ 09:43 by Bj Prince NP) Acute oral pain (Acute) Jaw pain (Acute) Foot pain, left (Acute) Right carpal tunnel syndrome (Acute) S/P ECTR: 08/13/2020 Right wrist sprain (Acute) Sprain of forearm, right (Acute) Vitamin B12 deficiency (Acute) Acute pain of right wrist (Acute) Carpal tunnel syndrome (Acute) Gastric ulcer (Acute) Knee sprain (Acute) Knee contusion (Acute) Knee fracture (Acute) Bilateral kidney stones (Acute 11/04/15) Abdominal wall cellulitis (Acute) Constipation due to pain medication (Acute) Neuropathic pain (Acute) Abdominal pain (Acute) Patellofemoral syndrome, right (Acute) Right knee pain (Acute) History of hernia surgery (Chronic) Abdominal hernia (Acute) just above umbilicus Recurrent umbilical hernia with incarceration (Acute) Medical History Abdominal pain chronic RLQ pain that did not improve with ureteroscopy. LUQ pain. W/U at [facility]. Pt thinks that she has hiatal hernia. No evidence on imaging studies. Asthma stable. no exacerbations for 1 yr. 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 Chronic back pain Diarrhea due to drug Generalized anxiety disorder GERD (gastroesophageal reflux disease) Hematuria Hiatal hernia History of IBS History of prediabetes Hypertension IBS (irritable bowel syndrome) Insomnia Low back pain Myofascial pain syndrome Obesity Pain, joint, knee, left Peripheral neuropathy Postoperative seroma Prediabetes Smoker Tobacco dependence Tobacco use Vitamin B12 deficiency (non anemic) Vitamin D deficiency Surgical History bone spur R foot. History of hernia repair Hx of esophagogastroduodenoscopy Ligation of fallopian tube Status post Molly fundoplication Tooth extraction Family History Mother Diabetes Father Epilepsy Social History Smoking/Tobacco Use Status: Current every day Tobacco Type: cigarettes Smoking packs per day: 0.5 Smoking cigarettes per day: 10.0 Smoking risk assessment performed?: Yes Alcohol Intake: never Drug use: Never Substance use type: does not use Number of Children: 4 current occupation: Disabled Current gender identity: female What is your relationship status?: living with partner Panel score (0-1 are the most socially isolated patients): 1 Do you feel safe at home: Yes Do you feel safe in your relationship?: Yes History History Para 0 Hx # Term Pregnancies Multiple births Hx # Pregnancies Ectopic pregnancies AB induced Hx Number of Living Children AB spontaneous Exam Const General: cooperative and no acute distress Orientation: alert, awake and oriented x3 Resp Effort & Inspection: normal respiratory effort and able to speak in complete sentences Cardio Rate: regular rate Rhythm: regular rhythm Pulses: posterior tibial pulses present and dorsalis pedis present Skin Trauma: no lacerations or abrasions Extrem General: normal exam except as noted Left lower extremity: foot Details: normal capillary refill, tenderness Location: of the dorsal foot Location: distally, of the plantar foot Location: distally and of another digit Location: the 4th digit, the 5th digit and along the entire digit; not of the base of the 5th metatarsal, abnormal ROM of toe Details: pain with active ROM and pain with passive ROM, vascular exam Details: dorsalis pedis pulse present, posterior tibial pulse present and normal capillary refill and motor-sensory exam Details: two point discrimination normal and light-touch normal; no lacerations and no ecchymosis Course Vital Signs Vital signs: Vital Signs Temperature 36.7 C 08/03/21 08:13 Pulse 87 08/03/21 08:13 Respiratory Rate 17 08/03/21 08:13 Blood Pressure 134/56 L 08/03/21 08:13 Pulse Oximetry 100 08/03/21 08:13 Temperature 36.7 C 08/03/21 08:13 Temperature Source Temporal Artery Scan 08/03/21 08:13 Pulse 87 08/03/21 08:13 Respiratory Rate 17 08/03/21 08:13 Respiratory Effort Non-Labored 08/03/21 08:16 Blood Pressure 134/56 L 08/03/21 08:13 Blood Pressure Position Sitting 08/03/21 08:13 Pulse Oximetry 100 08/03/21 08:13 Oxygen Delivery Method Room Air 08/03/21 08:13 Oxygen Flow Rate 0 08/03/21 08:13 Pain Level 10 08/03/21 08:16
== END 2021-08-03 09:51 | disposition home or self-care (01) ==
PROVIDERS: Emergency Provider Nurse Practitioner Family; PCP Physician Assistant
DX: M79.672 Pain in left foot (principal); X58.XXXA Exposure to other specified factors, initial encounter
CPT/HCPCS: 99283; 73630

== ENCOUNTER 2021-08-11 15:40 | Outpatient (REF) | payer MEDICARE, MEDICAID, SELFPAY ==
[2021-08-11 14:46] LABS: HCT 37.9 % (36.0-46.0); HGB 12.8 g/dL (11.2-15.7); MCH 29.5 pg (27.0-33.0); MCHC 33.8 % (32.0-36.0); MCV 87 fL (80-95); MPV 11.6 fL (8.0-11.0); Platelet Count 304 10^3/uL (130-400); RBC 4.34 10^6/uL (3.93-5.22); RDW 14.8 % (11.7-14.6); RDW-SD 47.9 fL; WBC 7.66 10^3/uL (4.4-10.8)
[2021-08-11 15:36] LABS: ALT 28 U/L (14-59); AST 16 U/L (15-37); Albumin 3.4 g/dL (3.4-5.0); Alkaline Phosphatase 88 U/L (46-116); Anion Gap 9.9 mmol/L (3-11); BUN 9 mg/dL (7-18); Bilirubin, Total 0.4 mg/dL (0.2-1.0); CO2 19.1 mmol/L (21.0-32.0); CREATININE 0.5 mg/dL (0.55-1.02); Calcium 8.4 mg/dL (8.5-10.1); Calculated LDL 93 mg/dL (<100); Chloride 110 mmol/L (98-107); Cholesterol 151 mg/dL (<200); Ferritin 15 ng/mL (8-252); Glucose 89 mg/dL (74-106); HDL Cholesterol 33 mg/dL (40-60); Sodium 139 mmol/L (136-145); TSH 0.86 uIU/mL (0.36-3.74); Total Protein 6.3 g/dL (6.4-8.2); Triglyceride 127 mg/dL (<150); Vitamin B12 162 pg/mL (193-986)
[2021-08-11 15:48] LABS: Hemoglobin A1C 5.7 % (<5.7)
[2021-08-11 15:58] LABS: FREE T4 0.98 ng/dL (0.76-1.46)
== END 2021-08-11 15:41 | disposition home or self-care (01) ==
LOC: NCHCN 15:40
PROVIDERS: PCP Physician Assistant; Visit Provider Physician Assistant
DX: D64.9 Anemia, unspecified (principal); I10 Essential (primary) hypertension; E53.8 Deficiency of other specified B group vitamins; R73.03 Prediabetes; L65.9 Nonscarring hair loss, unspecified; E78.5 Hyperlipidemia, unspecified
CPT/HCPCS: 80053; 80061; 85027; 82607; 82728; 83036; 84439; 84443

== ENCOUNTER 2021-08-24 09:24 | Emergency (ER) | payer MEDICARE, MEDICAID, SELFPAY ==
[2021-08-24 09:31] VITALS: BP 107/87; PULSE 80; RESP 18; TEMP 37.1; O2SAT 98
--- NOTE | 2021-08-24 09:37 | ED.GENADUL_ITS ---
Discharge Plan Disposition Patient Disposition: HOME Condition: Good Discharge Details Clinical Impression: Contusion, Muscle spasm, Lung nodule Primary Care Provider: Caleb Ballard ED Provider: Ambreen Robins Home Meds and New Rx's Prescriptions: New methocarbamol 500 mg tablet 1,000 mg PO TID PRN (Reason: muscle spasm) Qty: 20 0RF Continued atorvastatin 20 mg tablet 20 mg PO DAILY albuterol sulfate [ProAir HFA] 90 mcg/actuation Hfa Aerosol Inhaler 1 - 2 puff INHALATION PRN PRN pregabalin [Lyrica] 150 mg Capsule 150 mg PO DAILY sertraline 100 mg tablet 100 mg PO BOLUSMAXRATE Label Comments: TAKE 1 TABLET BY MOUTH EVERY DAY folic acid 1 mg tablet 1 mg DAILY Label Comments: TAKE 1 TABLET BY MOUTH DAILY propranolol 20 mg tablet 20 mg PO DAILY Label Comments: TAKE 1 TABLET BY MOUTH TWICE DAILY NEEDED FOR ANXIETY Linzess 290 mcg capsule 290 mcg PO DAILY Label Comments: TAKE 1 CAPSULE BY MOUTH DAILY ferrous sulfate [iron] 325 mg (65 mg iron) Tablet 325 mg PO DAILY topiramate 100 mg tablet 1 tab PO HS Label Comments: TAKE 1 TABLET BY MOUTH EVERY NIGHT Discharge Instructions Instructions: Contusion in Adults (ED), Muscle Spasm (ED) Additional Instructions: Your imaging is reassuring here today. No acute fracture or dislocation. Please encourage hydration. Please continue with Tylenol and/or ibuprofen as needed for discomfort. You may augment this with the methocarbamol as prescribed, this should help with some of the muscle spasm. Please encourage stretching, frequent ambulation. You may also find help with heat and/or ice. As we discussed, a small nodule was noted on your chest x-ray today. I would like for you to follow-up with your primary care regarding this as well as the pain in your back. Please call to schedule appointment in the next week. If you develop increased pain, shortness of breath, fever/chills or other new/worsening symptom please seek care urgently once again. Referrals: Caleb Ballard [Primary Care Provider] - Discharge Data Discharge Date/Time-TO BE ENTERED AT DEPARTURE: 08/24/21 13:02 Medical Decision Making Patient is a 41-year-old female presenting today with chief complaint of diffuse back pain. States that 2 days ago she was sitting on the ground when her 5-year-old granddaughter jumped onto her causing her to fall backwards. Suffered a 1 cm abrasion to the left scapula. Since then, her pain has become more diffuse about her back. No change in bowel or bladder habits. No fevers or chills. States that she used ibuprofen with minimal relief. Tetanus is up-to-date, states she had this within the last year. States that she also struck her left elbow and that she can occasionally have burning pain that radiates into the left hand. No dermatomal pattern with this discomfort, rather a fairly diffuse pain. Patient is [id number]. On exam, patient appears nontoxic. Her vital signs are stable. Patient was initially fitted with a collar by nursing staff. However, no midline C-spine pain was elicited. She does feel tight with range of motion and this is elicited bilaterally extending towards the shoulders. She does feel tight along the trapezius as well as paraspinal muscles extending down to her back. Patient diffusely tender although I feel no focal step-off or deformity. No focal area of discomfort on spine exam. Maximal along thoracic. She does have a well- healing 1 cm superficial abrasion over the left scapula with no surrounding erythema, warmth or drainage. Her lungs are clear. Exam the left upper extr emity reveals neurovascularly intact. No objective evidence of trauma. She has full range of motion at the elbow. Full range of motion of the wrist. 2+ distal pulses. Sensation is intact currently. She is point tender primarily over the olecranon on the left elbow. Based on mechanism and physical exam findings, I have fairly low suspicion for fracture. However, with the patient is severity of pain, I do feel that imaging would be appropriate. More likely, the patient suffering from some muscular spasm associated with her back injury. We will augment the ibuprofen she took with Tylenol, methocarbamol and lidocaine patch. Patient did not drive herself here. XR reviewed by radiologist: FINDINGS: 3 views No evidence of fracture or listesis.? No pars defects.? Disc spaces exhibit normal height at each level.? Bone density normal.? No osseous lesions.? No scoliosis.? Facet joints unremarkable.? Sacroiliac joints unremarkable. IMPRESSION: No significant radiographic findings on these three views of the lumbosacral spine and no significant change compared to 05/09/2019 FINDINGS: 3 views No evidence of compression fracture or listhesis.? No disc space narrowing.? No scoliosis.? No abnormal widening of the paraspinal lines. IMPRESSION: No significant radiograph findings in the thoracic spinal column. FINDINGS: 3 views There is no evidence of fracture or joint effusion.? No swelling of the olecranon bursa. Epicondyles appear unremarkable.? Bone density normal. IMPRESSION: No fracture evident.? No joint effusion. FINDINGS: 2 views: Previously present hiatal hernia is less evident on the present study. Heart size is normal.? The mediastinum is not widened. Right lung is clear.? There is platelike atelectasis in the left lung base.? This is in the inferior lingular segment. Also subtle suggestion of a small nodular infiltrate in the left upper lobe between the 1st and 2nd ribs interspace.? The medial aspect of the scapula is also over this area. Discussed findings with alison patient. Spoke with radiologist, they recommended f/u regarding the nodule. Patient will discuss nodule further with PCP. In regard to alison discomfort, patient's history and exam most consistent with muscular spasm. Encouraged movement, stretching, frequent ambulation. Encouraged hydration. Discussed OTC medications that can help. Will also continue with muscle relaxant. Advised not to drive or drink ETOH with this. Advised that she f/u with PCP regarding her back pain and LUE discomfort. The radiation of pain toard the hand from the left elbow likely associated with spasm or subclinical swelling. There is no indication of neurovascular defecit at this time. We did discuss new or worsening signs/symptoms that shold prompt her to return for reevaluation. Encouraged close f/u. All of her questions and concerns were addressed, she is in agreement with this plan. [facility] General Mode of arrival: ambulatory . Date/Time Provider Initiated Documentation: 08/24/21 09:28 . Limitations to Documentation: no limitations . Information obtained by: patient, RN notes reviewed and old records reviewed . History of Present Illness 41 year old F presents to the emergency department with the chief complaint of Diffuse back pain, left elbow pain, described as severe, with intensity rated at 10. Quality is described as burning (LUE) and aching (back), Patient reports radiation to back (initally started more focal and has spread diffusely) and extremity (Pain began in left elbow but now radiates toward the left hand). Patient started experiencing this day(s) and it has been constant. Immobilization improves symptom(s), Movement worsens symptoms . Patient notes no other symptoms.. Patient did receive the following treatments prior to arrival, NSAID Related Data Home Medications Medication Instructions Recorded Confirmed albuterol sulfate 90 mcg/actuation 1 - 2 puff inhalation PRN PRN 05/30/20 08/24/21 aerosol inhaler (ProAir HFA) pregabalin 150 mg capsule (Lyrica) 150 mg PO DAILY 05/30/20 08/24/21 atorvastatin 20 mg tablet 20 mg PO DAILY 06/18/20 08/24/21 folic acid 1 mg tablet 1 mg DAILY 12/20/20 08/24/21 linaclotide 290 mcg capsule 290 mcg PO DAILY 12/20/20 08/24/21 (Linzess) propranolol 20 mg tablet 20 mg PO DAILY 12/20/20 08/24/21 sertraline 100 mg tablet 100 mg PO BOLUSMAXRATE 12/20/20 08/24/21 ferrous sulfate 325 mg (65 mg 325 mg PO DAILY 08/03/21 08/24/21 iron) tablet (iron) topiramate 100 mg tablet 1 tab PO HS 08/03/21 08/24/21 methocarbamol 500 mg tablet 1,000 mg PO TID PRN muscle spasm 08/24/21 #20 tabs Previous Rx's Medication Instructions Recorded methocarbamol 500 mg tablet 1,000 mg PO TID PRN muscle spasm 08/24/21 #20 tabs Allergies Allergy/AdvReac Type Severity Reaction Status Date / Time lisinopril AdvReac Mild cough Verified 08/03/21 08:21 hydrocodone AdvReac Headache Verified 08/03/21 08:21 General Stated Complaint: Nk/Back Pain CLIFFORD: 3 Review of Systems Constitutional Constitutional: Reports as per HPI, Denies chills, Denies fever(s) and Denies headache(s) Eyes Eyes: Denies change in vision ENT Ears, Nose, Mouth, and Throat: Denies headache(s) Cardiovascular Cardiovascular: Denies chest pain, Denies dyspnea and Denies dyspnea on exertion Respiratory Respiratory: Denies cough, Denies dyspnea and Denies dyspnea on exertion Gastrointestinal Gastrointestinal: Denies abdominal pain, Denies change in bowel habits and Denies fecal incontinence Genitourinary Genitourinary: Reports as per HPI, Denies urinary incontinence and Denies urinary hesitancy Musculoskeletal Musculoskeletal: Reports as per HPI, Reports back pain, Denies muscle weakness and Reports stiffness Integumentary/Breasts Skin/Breast: Reports as per HPI Neurologic Neurologic: Reports as per HPI, Denies headache(s), Denies localized weakness, Denies sensory deficit and Denies paresthesias [facility] All Active Problems (Updated 08/24/21 @ 12:47 by TELLY Lanza) Acute oral pain (Acute) Jaw pain (Acute) Foot pain, left (Acute) Contusion (Acute) Muscle spasm (Acute) Lung nodule (Acute) Right carpal tunnel syndrome (Acute) S/P ECTR: 08/13/2020 Right wrist sprain (Acute) Sprain of forearm, right (Acute) Vitamin B12 deficiency (Acute) Acute pain of right wrist (Acute) Carpal tunnel syndrome (Acute) Gastric ulcer (Acute) Knee sprain (Acute) Knee contusion (Acute) Knee fracture (Acute) Bilateral kidney stones (Acute 11/04/15) Abdominal wall cellulitis (Acute) Constipation due to pain medication (Acute) Neuropathic pain (Acute) Abdominal pain (Acute) Patellofemoral syndrome, right (Acute) Right knee pain (Acute) History of hernia surgery (Chronic) Abdominal hernia (Acute) just above umbilicus Recurrent umbilical hernia with incarceration (Acute) Medical History Abdominal pain chronic RLQ pain that did not improve with ureteroscopy. LUQ pain. [facility] Pt thinks that she has hiatal hernia. No evidence on imaging studies. Asthma stable. no exacerbations for 1 yr. 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 Chronic back pain Diarrhea due to drug Generalized anxiety disorder GERD (gastroesophageal reflux disease) Hematuria Hiatal hernia History of IBS History of prediabetes Hypertension IBS (irritable bowel syndrome) Insomnia Low back pain Myofascial pain syndrome Obesity Pain, joint, knee, left Peripheral neuropathy Postoperative seroma Prediabetes Smoker Tobacco dependence Tobacco use Vitamin B12 deficiency (non anemic) Vitamin D deficiency Surgical History bone spur R foot. History of hernia repair Hx of esophagogastroduodenoscopy Ligation of fallopian tube Status post Molly fundoplication Tooth extraction Family History Mother Diabetes Father Epilepsy Social History Smoking/Tobacco Use Status: Current every day Tobacco Type: cigarettes Smoking packs per day: 0.5 Smoking cigarettes per day: 10.0 Smoking risk assessment performed?: Yes Alcohol Intake: never Drug use: Never Substance use type: does not use Number of Children: 4 current occupation: Disabled Current gender identity: female What is your relationship status?: living with partner Panel score (0-1 are the most socially isolated patients): 1 Do you feel safe at home: Yes Do you feel safe in your relationship?: Yes History History Para 0 Hx # Term Pregnancies Multiple births Hx # Pregnancies Ectopic pregnancies AB induced Hx Number of Living Children AB spontaneous Exam Const General: cooperative, healthy appearing, uncomfortable (moving slowely), no acute distress, well developed, well groomed and anxious Nutritional Appearance: average body habitus and well nourished Orientation: alert and awake [facility] Head: normal to inspection, no palpable skull fracture, normocephalic and atraumatic Eyes General: appearance normal, both eyes and all related structures Neck Neck: normal visual inspection, full ROM and no lymphadenopathy Chest Chest: normal inspection of the chest and normal palpation of entire chest wall Resp Effort & Inspection: normal respiratory effort and able to speak in complete sentences Auscultation: clear to auscultation bilaterally, no rales, no rhonchi and no wheezes Cardio Rate: regular rate Rhythm: regular rhythm Heart Sounds: S1 normal and S2 normal Back/Spine/Pelvis Cervical Spine: normal cervical lordosis, cervical ROM normal, cervical muscular tenderness (lateral toward shoulders, L>R), No pain with cervical ROM, No cervical spinal tenderness and No step off deformity Thoracic/Lumbar Spine: thoracic and lumbar spine normal to inspection, No mass, paraspinal tenderness, thoraco-lumbar ROM limited (secondary to discomfort), thoraco-lumbar spasm, thoracic spinal tenderness (diffuse pain, no focal area of discomfort) and lumbar spinal tenderness (diffuse discomfort, no focal area of discomfort. Thoracic more tender) Pelvis: no pain with anterior-posterior compression Sacroiliac joints: bilaterally nontender Skin Trauma: abrasion (small, superficial abrasion left scapula, healing well without infection) Neuro General: patient alert and patient awake Cognition: normal cognition Speech: speech normal Gait: normal gait Motor: muscle tone normal throughout, strength 5/5 throughout, no movement abnormalities noted and no fasciculations Sensory Exam: no sensory deficits noted (no saddle paresthesias) DTR's: Rt Patellar: 2+, Lt Patellar: 2+, Rt Ankle: 2+ and Lt Ankle: 2+ Extrem General: normal to inspection, full ROM, capillary refill normal, no joint enlargement, no pedal edema, no calf tenderness and normal gait Left upper extremity: normal to inspection, full ROM, normal capillary refill, no joint enlargement, shoulder/upper arm Details: inspection abnormal, elbow/forearm Details: normal to inspection, tenderness Location: of the olecranon, normal ROM and distal pulses intact; no swelling, no lacerations, no ecchymosis, no crepitus, no penetrating wound and no deformity, wrist Details: normal to inspection, normal ROM, normal vascular exam and radial pulse present; no tenderness (pain radiating from elbow but no pain with palpation at the wrist), no swelling, no unusual warmth, no ecchymosis, no crepitus and no deformity and hand Details: normal to inspection, normal capillary refill, neuromotor exam normal Details: wrist extension normal, thumb opposition normal, thumb IP flexion normal, thumb ADduction normal and fingers 2-5 ABduction normal, neurosensory exam normal and vascular exam Details: radial pulse present and normal capillary refill; no tenderness, no unusual warmth and no swelling; no cyanosis and no edema Psych Appearance: grossly normal and well kempt Mental Status: mental status grossly normal Speech and Movement: speech and movement normal Course Vital Signs Vital signs: Vital Signs Temperature 37.1 C 08/24/21 09:31 Pulse 80 08/24/21 09:31 Respiratory Rate 18 08/24/21 09:31 Blood Pressure 107/87 08/24/21 09:31 Pulse Oximetry 98 08/24/21 09:31 Temperature 37.1 C 08/24/21 09:31 Temperature Source Temporal Artery Scan 08/24/21 09:31 Pulse 80 08/24/21 09:31 Respiratory Rate 18 08/24/21 09:31 Blood Pressure 107/87 08/24/21 09:31 Blood Pressure Position Sitting 08/24/21 09:31 Pulse Oximetry 98 08/24/21 09:31 Oxygen Delivery Method Room Air 08/24/21 09:31 Oxygen Flow Rate 0 08/24/21 09:31
--- NOTE | 2021-08-24 09:45 | DI.RAD_ITS ---
Exam(s) XR ELBOW LT COMPLETE EXAM: XR ELBOW LT COMPLETE CLINICAL HISTORY: fall from seated position. TECHNIQUE: 2D digital imaging was performed. COMPARISON: No exams were available for comparison FINDINGS: 3 views There is no evidence of fracture or joint effusion. No swelling of the olecranon bursa. Epicondyles appear unremarkable. Bone density normal. IMPRESSION: No fracture evident. No joint effusion. DATA REPOSITORY: RADIATION DOSE DELIVERED:
--- NOTE | 2021-08-24 09:45 | DI.RAD_ITS ---
Exam(s) XR CHEST 2V PA LATERAL EXAM: XR CHEST 2V PA LATERAL CLINICAL HISTORY: fall from sitting postition. TECHNIQUE: 2D digital imaging was performed. COMPARISON: CR XR CHEST 2V PA LATERAL from 06/02/2018 FINDINGS: 2 views: Previously present hiatal hernia is less evident on the present study. Heart size is normal. The mediastinum is not widened. Right lung is clear. There is platelike atelectasis in the left lung base. This is in the inferior lingular segment. Also subtle suggestion of a small nodular infiltrate in the left upper lobe between the 1st and 2nd r ibs interspace. The medial aspect of the scapula is also over this area. IMPRESSION: There is subsegmental platelike atelectasis in the inferior lingular segment of the left lung. Also subtle suggestion of a 7 millimeter nodular infiltrate in the left upper lobe DATA REPOSITORY: RADIATION DOSE DELIVERED:
--- NOTE | 2021-08-24 09:45 | DI.RAD_ITS ---
Exam(s) XR THORACIC SPINE COMPLETE EXAM: XR THORACIC SPINE COMPLETE CLINICAL HISTORY: fall from sitted position. TECHNIQUE: 2D digital imaging was performed. COMPARISON: CR THORACIC SPINE from 04/04/2012 FINDINGS: 3 views No evidence of compression fracture or listhesis. No disc space narrowing. No scoliosis. No abnorm al widening of the paraspinal lines. IMPRESSION: No significant radiograph findings in the thoracic spinal column. DATA REPOSITORY: RADIATION DOSE DELIVERED:
--- NOTE | 2021-08-24 10:15 | DI.RAD_ITS ---
Exam(s) XR LUMBAR SPINE AP, LAT EXAM: XR LUMBAR SPINE AP, LAT CLINICAL HISTORY: fall from seated position. TECHNIQUE: 2D digital imaging was performed. COMPARISON: CR XR LUMBAR SPINE COMPLETE from 05/09/2019 FINDINGS: 3 views No evidence of fracture or listhesis. No pars defects. Disc spaces exhibit normal height at each le edilberto. Bone density normal. No osseous lesions. No scoliosis. Facet joints unremarkable. Sacroilia c joints unremarkable. IMPRESSION: No significant radiographic findings on these three views of the lumbosacral spine and no significant change compared to 05/09/2019 DATA REPOSITORY: RADIATION DOSE DELIVERED:
[2021-08-24] MEDS: Lidocaine 5% Patch 1 PATCH TP (10:46)
[2021-08-24] MEDS: Acetaminophen 325 MG TAB 650 MG PO (10:47)
[2021-08-24] MEDS: Methocarbamol 500 MG TAB 1000 MG PO (10:47)
[2021-08-24 12:54] VITALS: BP 113/77; PULSE 60; TEMP 36.4; O2SAT 98
[2021-08-24 12:59] VITALS: BP 113/77; PULSE 60; RESP 16; TEMP 36.4; O2SAT 98
== END 2021-08-24 13:02 | disposition home or self-care (01) ==
PROVIDERS: Emergency Provider Physician Assistant; PCP Physician Assistant
DX: S40.212A Abrasion of left shoulder, initial encounter; M62.838 Other muscle spasm; R91.1 Solitary pulmonary nodule; M54.50 Low back pain, unspecified; M54.6 Pain in thoracic spine; M25.522 Pain in left elbow; W18.30XA Fall on same level, unspecified, initial encounter; I10 Essential (primary) hypertension; F17.210 Nicotine dependence, cigarettes, uncomplicated
CPT/HCPCS: 99284; 71046; 72072; 72100; 73080

== ENCOUNTER → 2021-08-28 14:05 | Outpatient (CLI) | payer MEDICARE, MEDICAID, SELFPAY ==
--- NOTE | 2021-08-28 | DI.CT_ITS ---
Exam(s) CT THORACIC SPINE WO EXAM: CT THORACIC SPINE WO CLINICAL HISTORY: BACK PAIN, TENDERNESS T2-4, INJURY. TECHNIQUE: Imaging Protocol: Axial computed tomography images with coronal and sagittal reformatted images were created and reviewed. COMPARISON: No exams were available for comparison FINDINGS: Bones: No fractures or dislocations are seen. The alignment of the spine is normal including the cerv icothoracic junction. Soft tissues: The soft tissues of the chest are unremarkable. No large disk herniations are identifie d. IMPRESSION: Normal CT of the thoracic spine. RADIATION DOSE DELIVERED: 580.2mGy.cm Total DLP 580.2mGy.cm Total DLP DATA REPOSITORY: All CT scans at this facility are submitted to the National Radiology Data Registry (NRDR) Dose Index Registry (DIR) with the [employer] ([employer]). RADIATION OPTIMIZATION: All CT scans at this facility use at least one of these dose optimization te chniques: automated exposure control; mA and/or kV adjustment per patient size (includes targeted exa ms where dose is matched to clinical indication); or iterative reconstruction.
--- NOTE | 2021-08-28 | DI.CT_ITS ---
Exam(s) CT CERVICAL SPINE WO EXAM: CT CERVICAL SPINE WO CLINICAL HISTORY: C 3-4 TENDERNESS, INJURY, NECK PAIN. TECHNIQUE: Imaging Protocol: Axial computed tomography images with coronal and sagittal reformatted images were created and reviewed COMPARISON: No exams were available for comparison FINDINGS: Bones: No acute fracture or subluxation. Soft Tissues: Unremarkable. Lung Apices: Clear. IMPRESSION: No acute fracture or subluxation in the cervical spine. RADIATION DOSE DELIVERED: 270.94mGy.cm Total DLP 270.94mGy.cm Total DLP DATA REPOSITORY: All CT scans at this facility are submitted to the National Radiology Data Registry (NRDR) Dose Index Registry (DIR) with the [employer] ([employer]). RADIATION OPTIMIZATION: All CT scans at this facility use at least one of these dose optimization te chniques: automated exposure control; mA and/or kV adjustment per patient size (includes targeted exa ms where dose is matched to clinical indication); or iterative reconstruction.
--- NOTE | 2021-08-28 | DI.CT_ITS ---
Exam(s) CT LUMBAR SPINE WO EXAM: CT LUMBAR SPINE WO CLINICAL HISTORY: BACK PAIN, INJURY,TENDERNESS COMPLETE LS SPINE. TECHNIQUE: Imaging Protocol: Axial computed tomography images with coronal and sagittal reformatted images were created and reviewed. COMPARISON: CT CT THORACIC SPINE WO from 08/28/2021 FINDINGS: Bones: No fractures or dislocations are seen. The alignment of the spine is normal including the thor acolumbar junction. Soft tissues: The soft tissues of the visualized abdomen and chest are unremarkable. No large disk he rniations are identified. IMPRESSION: No acute fracture or subluxation in the lumbar spine. RADIATION DOSE DELIVERED: 542.38mGy.cm Total DLP 542.38mGy.cm Total DLP DATA REPOSITORY: All CT scans at this facility are submitted to the National Radiology Data Registry (NRDR) Dose Index Registry (DIR) with the [employer] ([employer]). RADIATION OPTIMIZATION: All CT scans at this facility use at least one of these dose optimization te chniques: automated exposure control; mA and/or kV adjustment per patient size (includes targeted exa ms where dose is matched to clinical indication); or iterative reconstruction.
== END ==
PROVIDERS: PCP Physician Assistant; Visit Provider Physician Assistant Medical
DX: S19.9XXA Unspecified injury of neck, initial encounter (principal); S39.92XA Unspecified injury of lower back, initial encounter; S29.9XXA Unspecified injury of thorax, initial encounter; X58.XXXA Exposure to other specified factors, initial encounter
CPT/HCPCS: 72125; 72128; 72131

== ENCOUNTER → 2021-12-24 02:10 | Outpatient (CLI) | payer MEDICARE, MEDICAID, SELFPAY ==
--- NOTE | 2021-12-24 | DI.RAD_ITS ---
Exam(s) XR CHEST 2V PA LATERAL EXAM: XR CHEST 2V PA LATERAL CLINICAL HISTORY: F/U PULMONARY NODULE, ON 09/04 XR, R91.1 TECHNIQUE: 2D digital imaging was performed of the chest. Two images were obtained. PA and lateral views were obtained. COMPARISON: CR XR CHEST 2V PA LATERAL from 06/02/2018 CR XR CHEST 2V PA LATERAL from 08/24/2021 FINDINGS: MEDIASTINUM: Normal. HEART: Normal. PULMONARY VASCULATURE: Normal. LUNGS: There is an ovoid density seen in the left upper lobe laterally. The lungs are otherwise lalo r. PLEURAL SPACE: No pleural effusion or pneumothorax. BONE:Within normal limits for the patient's age. OTHER FINDINGS:Normal. IMPRESSION: Small ovoid density in the left upper lobe. CT scan of the chest is recommended for further evaluati on. DATA REPOSITORY: RADIATION DOSE DELIVERED:
== END ==
PROVIDERS: PCP Physician Assistant; Visit Provider Physician Assistant
DX: R91.8 Other nonspecific abnormal finding of lung field (principal)
CPT/HCPCS: 71046

== ENCOUNTER → 2022-01-22 00:55 | Outpatient (CLI) | payer MEDICARE, MEDICAID, SELFPAY ==
--- NOTE | 2022-01-22 08:45 | DI.CT_ITS ---
Exam(s) CT CHEST WO EXAM: CT CHEST WO CLINICAL HISTORY: PULMONARY NODULE, R91.1. TECHNIQUE: Imaging protocol: Axial computed tomography images were obtained and coronal and sagittal reformatted images were created and reviewed. COMPARISON: CR XR CHEST 2V PA LATERAL from 12/24/2021 FINDINGS: The examination is limited due to patient motion artifact.. Tracheobronchial tree: Patent where visualized. Pulmonary parenchyma: No consolidation or dominant measurable mass. No architectural distortion. Mediastinum and Iesha: No dominant adenopathy or fluid collection. The esophagus is unremarkable. Thyroid gland: Unremarkable. Pleura: No effusion or pneumothorax. Heart: The heart is not dilated. No coronary artery calcifications are seen. No pericardial effusion. Aorta: Thoracic aorta non-dilated. Minimal atherosclerosis is present. Upper abdomen: Postsurgical changes are seen at the gastroesophageal junction. Lymph nodes: Within normal limits. Soft tissues: Unremarkable. Bones:Within normal limits for the patient's age. IMPRESSION: 1. No pulmonary nodules are identified. 2. No acute pulmonary process. RADIATION DOSE DELIVERED: 456.53mGy.cm Total DLP 456.53mGy.cm Total DLP DATA REPOSITORY: All CT scans at this facility are submitted to the National Radiology Data Registry (NRDR) Dose Index Registry (DIR) with the [employer] (ACR). RADIATION OPTIMIZATION: All CT scans at this facility use at least one of these dose optimization te chniques: automated exposure control; mA and/or kV adjustment per patient size (includes targeted exa ms where dose is matched to clinical indication); or iterative reconstruction.
== END ==
PROVIDERS: PCP Physician Assistant; Visit Provider Physician Assistant
DX: R91.1 Solitary pulmonary nodule (principal)
CPT/HCPCS: 71250

== ENCOUNTER 2022-01-27 15:35 | Outpatient (REF) | payer MEDICARE, MEDICAID, SELFPAY ==
[2022-01-27 20:59] LABS: HCT 39.8 % (36.0-46.0); HGB 13.1 g/dL (11.2-15.7); MCH 28.5 pg (27.0-33.0); MCHC 32.9 % (32.0-36.0); MCV 87 fL (80-95); MPV 11.1 fL (8.0-11.0); Platelet Count 339 10^3/uL (130-400); RDW 13.1 % (11.7-14.6); RDW-SD 41.1 fL; WBC 7.71 10^3/uL (4.4-10.8)
[2022-01-27 21:10] LABS: ESR 14 mm/hr (0-20)
[2022-01-27 21:33] LABS: Ferritin 10 ng/mL (8-252)
[2022-01-27 22:00] LABS: Hemoglobin A1C 6.1 % (<5.7)
== END 2022-01-27 15:36 | disposition home or self-care (01) ==
LOC: NCHCN 15:35
PROVIDERS: PCP Physician Assistant; Visit Provider Physician Assistant
DX: R73.03 Prediabetes (principal); D64.9 Anemia, unspecified
CPT/HCPCS: 85027; 85652; 82728; 83036

== ENCOUNTER 2022-07-02 09:23 | Emergency (ER) | payer MEDICARE, MEDICAID, SELFPAY ==
[2022-07-02 09:26] VITALS: BP 118/65; PULSE 86; RESP 16; TEMP 36.8; O2SAT 99
--- NOTE | 2022-07-02 09:43 | W.ED.GENAD ---
Discharge Plan Disposition Patient Disposition: Home Condition: Stable Discharge Details Clinical Impression: Pain, dental Primary Care Provider: Caleb Ballard ED Provider: Bj Prince Home Meds and New Rx's Prescriptions: New penicillin V potassium 500 mg tablet 500 mg PO QID 7 Days Qty: 28 0RF Continued prednisone 20 mg tablet 40 mg PO DAILY mecobalamin (vitamin B12) 1,000 mcg tablet,chewable 1,000 mcg PO DAILY ibuprofen 800 mg tablet 800 mg PO TID PRN zolpidem [Ambien] 5 mg tablet 5 mg PO QHS PRN cholecalciferol (vitamin D3) 25 mcg (1,000 unit) capsule 25 mcg PO DAILY atorvastatin 20 mg tablet 20 mg PO DAILY albuterol sulfate [ProAir HFA] 90 mcg/actuation Hfa Aerosol Inhaler 1 - 2 puff INHALATION PRN PRN pregabalin [Lyrica] 150 mg Capsule 150 mg PO DAILY sertraline 100 mg tablet 100 mg PO BOLUSMAXRATE Patient Comments: TAKE 1 TABLET BY MOUTH EVERY DAY folic acid 1 mg tablet 1 mg DAILY Patient Comments: TAKE 1 TABLET BY MOUTH DAILY propranolol 20 mg tablet 20 mg PO DAILY Patient Comments: TAKE 1 TABLET BY MOUTH TWICE DAILY NEEDED FOR ANXIETY Linzess 290 mcg capsule 290 mcg PO DAILY Patient Comments: TAKE 1 CAPSULE BY MOUTH DAILY ferrous sulfate [iron] 325 mg (65 mg iron) Tablet 325 mg PO DAILY topiramate 100 mg tablet 1 tab PO HS Patient Comments: TAKE 1 TABLET BY MOUTH EVERY NIGHT methocarbamol 500 mg tablet 1,000 mg PO TID PRN (Reason: muscle spasm) Qty: 20 0RF Discharge Instructions Instructions: Toothache (ED) Additional Instructions: At this time it does not appear that you have a dental abscess and you should continue to take [id number] acetaminophen or ibuprofen as needed for pain. You have been given a antibiotic to only use if you have facial swelling or obvious swelling to your gumline then start the antibiotic and take until fully completed. It is very important that you follow-up with a dental provider for definitive care of your dental complaint. Referrals: [facility] [Provider Group] - 1 week Medical Decision Making Patient presenting to the emergency department for chief complaint of dental pain. Patient has poor dentition to begin with but due to 3 days of dental pain is concern for possible abscess. Patient denies fever chills, facial swelling, difficulty breathing swallowing. Physical exam is unremarkable, patient states that pain and discomfort is around where 228 would be but patient has teeth 28 and 29 removed. No obvious abscess, no gumline swelling, no erythema. Patient overall does have poor dentition with multiple missing and removed teeth. no signs of deep neck space infection ( Retropharyngeal abscess, Nehemias's angina, Parapharyngeal space infection, Peritonsillar Abscess ([employer])) or Epiglottitis. Pt non toxic and stable. Will give patient pocket prescription for antibiotic but she was informed that she should not take this for at least 24 to 48 hours and should only started if she has facial swelling or more signs of obvious abscess otherwise patient instructed to follow-up with dental provider for definitive care. After discussion of diagnosis and plan of care patient has no further needs, questions, or concerns and states clear understanding to return to the emergency department for any worsening symptoms. This documentation was generated using [employer] dictation system, please disregard any oddities of phrase or misspellings. HPI General Mode of arrival: ambulatory. Date/Time Provider Initiated Documentation: 07/02/22 09:27. Limitations to Documentation: no limitations. Information obtained by: patient and RN notes reviewed. History of Present Illness 42 year old F presents to the emergency department with the chief complaint of Dental pain, described as moderate, Quality is described as aching, and is localized to the mouth. Patient started experiencing this day(s) (3) and it has been constant. No relieving factors improve symptom(s), No exacerbating factors reported . Patient notes no other symptoms.. Patient did receive the following treatments prior to arrival, NSAID Related Data Home Medications Medication Instructions Recorded Confirmed albuterol sulfate 90 mcg/actuation 1 - 2 puff inhalation PRN PRN 05/30/20 07/02/22 aerosol inhaler (ProAir HFA) pregabalin 150 mg capsule (Lyrica) 150 mg PO DAILY 05/30/20 07/02/22 atorvastatin 20 mg tablet 20 mg PO DAILY 06/18/20 07/02/22 folic acid 1 mg tablet 1 mg DAILY 12/20/20 07/02/22 linaclotide 290 mcg capsule 290 mcg PO DAILY 12/20/20 07/02/22 (Linzess) propranolol 20 mg tablet 20 mg PO DAILY 12/20/20 07/02/22 sertraline 100 mg tablet 100 mg PO BOLUSMAXRATE 12/20/20 07/02/22 ferrous sulfate 325 mg (65 mg 325 mg PO DAILY 08/03/21 07/02/22 iron) tablet (iron) topiramate 100 mg tablet 1 tab PO HS 08/03/21 07/02/22 methocarbamol 500 mg tablet 1,000 mg PO TID PRN muscle spasm 08/24/21 #20 tabs cholecalciferol (vitamin D3) 25 25 mcg PO DAILY 04/02/22 07/02/22 mcg (1,000 unit) capsule ibuprofen 800 mg tablet 800 mg PO TID PRN 04/02/22 07/02/22 mecobalamin (vitamin B12) 1,000 1,000 mcg PO DAILY 04/02/22 07/02/22 mcg chewable tablet prednisone 20 mg tablet 40 mg PO DAILY 04/02/22 zolpidem 5 mg tablet (Ambien) 5 mg PO QHS PRN 04/02/22 07/02/22 penicillin V potassium 500 mg 500 mg PO QID 7 days #28 tabs 07/02/22 tablet Previous Rx's Medication Instructions Recorded methocarbamol 500 mg tablet 1,000 mg PO TID PRN muscle spasm 08/24/21 #20 tabs penicillin V potassium 500 mg 500 mg PO QID 7 days #28 tabs 07/02/22 tablet Allergies Allergy/AdvReac Type Severity Reaction Status Date / Time lisinopril AdvReac Mild cough Verified 07/02/22 09:31 hydrocodone AdvReac Headache Verified 07/02/22 09:31 General Stated Complaint: DentalOral CLIFFORD: 4 Review of Systems Constitutional Constitutional: Denies chills and Denies fever(s) ENT Ears, Nose, Mouth, and Throat: Reports as per HPI, Denies change in voice, Reports dental pain, Denies dysphagia, Denies throat swelling and Denies tongue swelling Cardiovascular Cardiovascular: Denies chest pain and Denies dyspnea Respiratory Respiratory: Denies dyspnea, Denies stridor and Denies wheezing Gastrointestinal Gastrointestinal: Denies abdominal pain, Denies dysphagia, Denies nausea and Denies vomiting Integumentary/Breasts Skin/Breast: Denies rash Allergic/Immunologic Allergic/Immunologic: Denies throat swelling, Denies tongue swelling and Denies wheezing PFSH All Active Problems Pain, dental (Acute) Acute oral pain (Acute) Jaw pain (Acute) Right carpal tunnel syndrome (Acute) S/P ECTR: 08/13/2020 Right wrist sprain (Acute) Sprain of forearm, right (Acute) Vitamin B12 deficiency (Acute) Acute pain of right wrist (Acute) Carpal tunnel syndrome (Acute) Gastric ulcer (Acute) Knee sprain (Acute) Knee contusion (Acute) Knee fracture (Acute) Bilateral kidney stones (Acute 11/04/15) Abdominal wall cellulitis (Acute) Constipation due to pain medication (Acute) Neuropathic pain (Acute) Abdominal pain (Acute) Patellofemoral syndrome, right (Acute) Right knee pain (Acute) History of hernia surgery (Chronic) Abdominal hernia (Acute) just above umbilicus Recurrent umbilical hernia with incarceration (Acute) Medical History Abdominal pain chronic RLQ pain that did not improve with ureteroscopy. LUQ pain. W/U at [facility]. Pt thinks that she has hiatal hernia. No evidence on imaging studies. Asthma stable. no exacerbations for 1 yr. 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 Chronic back pain Diarrhea due to drug Generalized anxiety disorder GERD (gastroesophageal reflux disease) Hair loss Headache Hematuria Hiatal hernia History of IBS History of prediabetes Hyperlipidemia Hypertension IBS (irritable bowel syndrome) Insomnia Low back pain Myofascial pain syndrome Obesity Pain, joint, knee, left Peripheral neuropathy Phantosmia Postoperative seroma Prediabetes Radicular pain Smoker Tobacco dependence Tobacco use Vitamin B12 deficiency (non anemic) Vitamin D deficiency Surgical History bone spur R foot. History of hernia repair Hx of esophagogastroduodenoscopy Ligation of fallopian tube Status post Molly fundoplication Tooth extraction Family History Mother Diabetes Father Epilepsy Social History Smoking/Tobacco Use Status: Current every day Tobacco Type: e-cigarettes Smoking risk assessment performed?: Yes Alcohol Intake: never Drug use: Never Substance use type: does not use Number of Children: 4 current occupation: Disabled Current gender identity: female What is your relationship status?: living with partner Panel score (0-1 are the most socially isolated patients): 1 Do you feel safe at home: Yes Do you feel safe in your relationship?: Yes History History Para 0 Hx # Term Pregnancies Multiple births Hx # Pregnancies Ectopic pregnancies AB induced Hx Number of Living Children AB spontaneous Exam Const General: cooperative Orientation: alert, awake and oriented x3 Limitations: mental status not altered HENMT Head: normal to inspection, normocephalic and atraumatic Ears: hearing grossly normal bilaterally, normal mastoids bilaterally and no periauricular adenopathy General nose exam: external nose normal Mouth: oropharynx normal, no drooling, no muffled voice, normal tongue and no trismus Teeth and gingiva: caries, poor dentition and other (Gumline tenderness around missing tooth #28) Throat: posterior oropharynx normal, tonsils normal and uvula midline Eyes General: appearance normal, both eyes and all related structures Pupils: PERRL Neck Neck: normal visual inspection, full ROM, no lymphadenopathy, no meningeal signs, trachea midline, supple, no anterior neck swelling and no midline deformity Resp Effort & Inspection: normal respiratory effort and able to speak in complete sentences Course Vital Signs Vital signs: Vital Signs Temperature 36.8 C 07/02/22 09:26 Pulse 86 07/02/22 09:26 Respiratory Rate 16 07/02/22 09:26 Blood Pressure 118/65 07/02/22 09:26 Pulse Oximetry 99 07/02/22 09:26 Temperature 36.8 C 07/02/22 09:26 Temperature Source Tympanic 07/02/22 09:26 Pulse 86 07/02/22 09:26 Respiratory Rate 16 07/02/22 09:26 Blood Pressure 118/65 07/02/22 09:26 Blood Pressure Position Sitting 07/02/22 09:26 Pulse Oximetry 99 07/02/22 09:26 Oxygen Delivery Method Room Air 07/02/22 09:26 Oxygen Flow Rate 0 07/02/22 09:26 Pain Level 10 07/02/22 09:35
[2022-07-02 09:53] VITALS: BP 118/65; PULSE 86; RESP 16; TEMP 36.8; O2SAT 99
== END 2022-07-02 17:50 | disposition home or self-care (01) ==
PROVIDERS: Emergency Provider Nurse Practitioner Family; PCP Physician Assistant
DX: R68.84 Jaw pain (principal); K08.89 Other specified disorders of teeth and supporting structures; I10 Essential (primary) hypertension
CPT/HCPCS: 99283; 99284

== ENCOUNTER 2022-10-01 08:55 | Emergency (ER) | payer MEDICARE, MEDICAID, SELFPAY ==
[2022-10-01 09:10] VITALS: BP 103/72; PULSE 88; RESP 15; TEMP 37; O2SAT 100
--- NOTE | 2022-10-01 09:33 | ED.GENADUL_ITS ---
Discharge Plan Disposition Patient Disposition: Home Condition: Stable Discharge Details Clinical Impression: Head injury, closed Primary Care Provider: Caleb Ballard ED Provider: Bj Prince Home Meds and New Rx's Prescriptions: Continued prednisone 20 mg tablet 40 mg PO DAILY mecobalamin (vitamin B12) 1,000 mcg tablet,chewable 1,000 mcg PO DAILY ibuprofen 800 mg tablet 800 mg PO TID PRN zolpidem [Ambien] 5 mg tablet 5 mg PO QHS PRN cholecalciferol (vitamin D3) 25 mcg (1,000 unit) capsule 25 mcg PO DAILY atorvastatin 20 mg tablet 20 mg PO DAILY albuterol sulfate [ProAir HFA] 90 mcg/actuation Hfa Aerosol Inhaler 1 - 2 puff INHALATION PRN PRN pregabalin [Lyrica] 150 mg Capsule 150 mg PO DAILY sertraline 100 mg tablet 100 mg PO BOLUSMAXRATE Patient Comments: TAKE 1 TABLET BY MOUTH EVERY DAY folic acid 1 mg tablet 1 mg DAILY Patient Comments: TAKE 1 TABLET BY MOUTH DAILY propranolol 20 mg tablet 20 mg PO DAILY Patient Comments: TAKE 1 TABLET BY MOUTH TWICE DAILY NEEDED FOR ANXIETY Linzess 290 mcg capsule 290 mcg PO DAILY Patient Comments: TAKE 1 CAPSULE BY MOUTH DAILY ferrous sulfate [iron] 325 mg (65 mg iron) Tablet 325 mg PO DAILY topiramate 100 mg tablet 1 tab PO HS Patient Comments: TAKE 1 TABLET BY MOUTH EVERY NIGHT methocarbamol 500 mg tablet 1,000 mg PO TID PRN (Reason: muscle spasm) Qty: 20 0RF Discharge Instructions Instructions: Head Injury (ED) Additional Instructions: At this time I am not concerned for a major head injury or severe concussion. Your exam is nonconcerning and does not require any advanced imaging at this time. You may continue to take ibuprofen 600 mg every 6 hours along with 500 mg of acetaminophen at the same time. Get plenty of rest and stay well-hydrated. Feel free to return the emergency department for any new or significant worsening of symptoms otherwise follow-up with your primary care provider as needed Referrals: Caleb Ballard [Primary Care Provider] - (As needed for reassessment) Medical Decision Making Patient presenting to the emergency department for chief complaint of headache secondary to injury. She states that yesterday a small child threw a rock that hit her in the back of the head. She states it was a small to medium size rock. She denies any loss of consciousness, vomiting, or focal neurological symptoms. Since the injury she has had a headache, and intermittent nausea. Patient has a past medical history of headaches, back pain, insomnia, anxiety. Physical exam is completely benign. I cannot appreciate any sort of scalp defect, swelling, or even signs of injury. Neuro exam is otherwise unremarkable. I am not concerned for any intracranial process depressed skull fracture or life- threatening head injury. we will treat patient with IM Toradol acetaminophen and a dose of Zofran. Otherwise I do not feel any additional work-up is needed at this time. Informed patient of return and follow-up precautions. After discussion of diagnosis and plan of care patient has no further needs, questions, or concerns and states clear understanding to return to the emergency department for any worsening symptoms. This documentation was generated using [employer] system, please disregard any oddities of phrase or misspellings. HPI General Mode of arrival: ambulatory . Date/Time Provider Initiated Documentation: 10/01/22 09:21 . Limitations to Documentation: no limitations . Information obtained by: patient and RN notes reviewed . History of Present Illness 42 year old F presents to the emergency department with the chief complaint of head injury, described as moderate, Quality is described as aching, and is localized to the head. Patient started experiencing this day(s) (1) and it has been constant. No relieving factors improve symptom(s), Patient did receive the following treatments prior to arrival, NSAID Related Data Home Medications Medication Instructions Recorded Confirmed albuterol sulfate 90 mcg/actuation 1 - 2 puff inhalation PRN PRN 05/30/20 10/01/22 aerosol inhaler (ProAir HFA) pregabalin 150 mg capsule (Lyrica) 150 mg PO DAILY 05/30/20 10/01/22 atorvastatin 20 mg tablet 20 mg PO DAILY 06/18/20 10/01/22 folic acid 1 mg tablet 1 mg DAILY 12/20/20 10/01/22 linaclotide 290 mcg capsule 290 mcg PO DAILY 12/20/20 10/01/22 (Linzess) propranolol 20 mg tablet 20 mg PO DAILY 12/20/20 10/01/22 sertraline 100 mg tablet 100 mg PO BOLUSMAXRATE 12/20/20 10/01/22 ferrous sulfate 325 mg (65 mg 325 mg PO DAILY 08/03/21 10/01/22 iron) tablet (iron) topiramate 100 mg tablet 1 tab PO HS 08/03/21 10/01/22 methocarbamol 500 mg tablet 1,000 mg PO TID PRN muscle spasm 08/24/21 #20 tabs cholecalciferol (vitamin D3) 25 25 mcg PO DAILY 04/02/22 10/01/22 mcg (1,000 unit) capsule ibuprofen 800 mg tablet 800 mg PO TID PRN 04/02/22 10/01/22 mecobalamin (vitamin B12) 1,000 1,000 mcg PO DAILY 04/02/22 10/01/22 mcg chewable tablet prednisone 20 mg tablet 40 mg PO DAILY 04/02/22 10/01/22 zolpidem 5 mg tablet (Ambien) 5 mg PO QHS PRN 04/02/22 10/01/22 Previous Rx's Medication Instructions Recorded methocarbamol 500 mg tablet 1,000 mg PO TID PRN muscle spasm 08/24/21 #20 tabs Allergies Allergy/AdvReac Type Severity Reaction Status Date / Time lisinopril AdvReac Mild cough Verified 10/01/22 09:16 hydrocodone AdvReac Headache Verified 10/01/22 09:16 General Stated Complaint: HeadInjury CLIFFORD: 3 Review of Systems Constitutional Constitutional: Denies body ache(s), Denies chills, Denies fever(s), Reports headache(s) and Reports malaise Eyes Eyes: Denies change in vision ENT Ears, Nose, Mouth, and Throat: Denies dizziness and Reports headache(s) Cardiovascular Cardiovascular: Denies chest pain and Denies syncope Gastrointestinal Gastrointestinal: Reports nausea and Reports vomiting Neurologic Neurologic: Reports as per HPI, Denies dizziness, Denies syncope, Reports headache(s) and Denies sensory deficit PFSH All Active Problems Head injury, closed (Acute) Acute oral pain (Acute) Jaw pain (Acute) Right carpal tunnel syndrome (Acute) S/P ECTR: 08/13/2020 Right wrist sprain (Acute) Sprain of forearm, right (Acute) Vitamin B12 deficiency (Acute) Acute pain of right wrist (Acute) Carpal tunnel syndrome (Acute) Gastric ulcer (Acute) Knee sprain (Acute) Knee contusion (Acute) Knee fracture (Acute) Bilateral kidney stones (Acute 11/04/15) Abdominal wall cellulitis (Acute) Constipation due to pain medication (Acute) Neuropathic pain (Acute) Abdominal pain (Acute) Patellofemoral syndrome, right (Acute) Right knee pain (Acute) History of hernia surgery (Chronic) Abdominal hernia (Acute) just above umbilicus Recurrent umbilical hernia with incarceration (Acute) Medical History Abdominal pain chronic RLQ pain that did not improve with ureteroscopy. LUQ pain. W/U at [facility]. Pt thinks that she has hiatal hernia. No evidence on imaging studies. Asthma stable. no exacerbations for 1 yr. 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 Chronic back pain Diarrhea due to drug Generalized anxiety disorder GERD (gastroesophageal reflux disease) Hair loss Headache Hematuria Hiatal hernia History of IBS History of prediabetes Hyperlipidemia Hypertension IBS (irritable bowel syndrome) Insomnia Low back pain Myofascial pain syndrome Obesity Pain, joint, knee, left Peripheral neuropathy Phantosmia Postoperative seroma Prediabetes Radicular pain Smoker Tobacco dependence Tobacco use Vitamin B12 deficiency (non anemic) Vitamin D deficiency Surgical History bone spur R foot. History of hernia repair Hx of esophagogastroduodenoscopy Ligation of fallopian tube Status post Molly fundoplication Tooth extraction Family History Mother Diabetes Father Epilepsy Social History Smoking/Tobacco Use Status: Current every day Tobacco Type: e-cigarettes Smoking risk assessment performed?: Yes Alcohol Intake: never Drug use: Never Substance use type: does not use Housing: apartment Number of Children: 4 current occupation: Disabled Current gender identity: female What is your relationship status?: living with partner Panel score (0-1 are the most socially isolated patients): 1 Do you feel safe at home: Yes Do you feel safe in your relationship?: Yes History History Para 0 Hx # Term Pregnancies Multiple births Hx # Pregnancies Ectopic pregnancies AB induced Hx Number of Living Children AB spontaneous Exam Const General: cooperative, healthy appearing, no acute distress and well groomed Orientation: alert, awake and oriented x3 HENMT Head: normal to inspection Ears: hearing grossly normal bilaterally and TM's normal bilaterally Mouth: oral mucosae normal and moist mucous membranes Throat: posterior oropharynx normal Eyes Visual Solorio: normal visual solorio by confrontation Alignment and Position: alignment normal Periorbital: periorbital findings normal Eyelids: eyelids normal Sclera: sclerae normal Cornea: corneas normal Pupils: PERRL EOM: EOM intact bilaterally Neck Neck: normal visual inspection, full ROM, no lymphadenopathy and no meningeal signs Resp Effort & Inspection: normal respiratory effort and able to speak in complete sentences Auscultation: clear to auscultation bilaterally Cardio Rate: regular rate Rhythm: regular rhythm Heart Sounds: S1 normal and S2 normal Neuro General: patient alert, patient awake, patient oriented x3, gait normal, tone normal, moves all extremities, CN's II-XI intact bilaterally and not confused Cognition: normal cognition Speech: speech normal Motor: muscle tone normal throughout, strength 5/5 throughout, no pronator drift, no movement abnormalities noted and no fasciculations Sensory Exam: no sensory deficits noted Coordination: [id number] test normal, Romberg test normal and Does not sway with eyes open Course Vital Signs Vital signs: Vital Signs Temperature 37.0 C 10/01/22 09:10 Pulse 88 10/01/22 09:10 Respiratory Rate 15 10/01/22 09:10 Blood Pressure 103/72 10/01/22 09:10 Pulse Oximetry 100 10/01/22 09:10 Temperature 37.0 C 10/01/22 09:10 Temperature Source Temporal Artery Scan 10/01/22 09:10 Pulse 88 10/01/22 09:10 Respiratory Rate 15 10/01/22 09:10 Respiratory Effort Normal 10/01/22 09:14 Respiratory Depth Normal 10/01/22 09:14 Respiratory Pattern Normal 10/01/22 09:14 Blood Pressure 103/72 10/01/22 09:10 Blood Pressure Position Sitting 10/01/22 09:10 Pulse Oximetry 100 10/01/22 09:10 Oxygen Delivery Method Room Air 10/01/22 09:10 Oxygen Flow Rate 0 10/01/22 09:10 Pain Level 10 10/01/22 09:10
[2022-10-01] MEDS: Acetaminophen 500 MG TAB 1000 MG PO (09:45)
[2022-10-01] MEDS: Ketorolac 30 MG/ML VIAL (09:45)
== END 2022-10-01 09:46 | disposition home or self-care (01) ==
PROVIDERS: Emergency Provider Nurse Practitioner Family; PCP Physician Assistant
DX: S09.90XA Unspecified injury of head, initial encounter (principal); X58.XXXA Exposure to other specified factors, initial encounter
CPT/HCPCS: 96372; 99284; J1885

== ENCOUNTER 2022-10-05 10:27 | Emergency (ER) | payer MEDICARE, MEDICAID, SELFPAY ==
[2022-10-05 10:57] VITALS: BP 103/89; PULSE 75; RESP 18; TEMP 36.8; O2SAT 99
== END 2022-10-05 11:40 | disposition left against medical advice (07) ==
PROVIDERS: PCP Physician Assistant
DX: Z53.21 Procedure and treatment not carried out due to patient leaving prior to being seen by health care provider (principal)

== ENCOUNTER → 2022-10-06 10:31 | Outpatient (CLI) | payer MEDICARE, MEDICAID, SELFPAY ==
--- NOTE | 2022-10-06 | DI.CT_ITS ---
Exam(s) CT HEAD WO EXAM: CT HEAD WO CLINICAL HISTORY: CLOSED HEAD INJURY,Z87.820,STRUCK BY SMALL ROCK,MENTAL CHANGES,HEADACHE,?. TECHNIQUE: Imaging Protocol: Axial computed tomography images with coronal and sagittal reformatted images were created and reviewed COMPARISON: CT HEAD WITHOUT CONTRAST from 08/13/2010 FINDINGS: Ventricles and Extra axial spaces: Normal in size and morphology for the patient's age. Hemorrhage: None. Cerebral parenchyma: Normal. Midline shift: None. Brainstem/Cerebellum: Normal. Calvarium: Normal. Visualized Paranasal sinuses/Mastoids: Clear. Soft Tissues: Unremarkable. IMPRESSION: No acute intracranial process. RADIATION DOSE DELIVERED: 664.55mGy.cm Total DLP DATA REPOSITORY: All CT scans at this facility are submitted to the National Radiology Data Registry (NRDR) Dose Index Registry (DIR) with the [employer] (ACR). RADIATION OPTIMIZATION: All CT scans at this facility use at least one of these dose optimization te chniques: automated exposure control; mA and/or kV adjustment per patient size (includes targeted exa ms where dose is matched to clinical indication); or iterative reconstruction.
== END ==
PROVIDERS: PCP Physician Assistant; Visit Provider Physician Assistant Medical
DX: Z87.820 Personal history of traumatic brain injury (principal); R51.9 Headache, unspecified
CPT/HCPCS: 70450

== ENCOUNTER 2022-11-10 11:13 | Outpatient (REF) | payer MEDICARE, MEDICAID, SELFPAY ==
[2022-11-10 16:26] LABS: HCT 32.9 % (36.0-46.0); MCH 22.5 pg (27.0-33.0); MPV 11.4 fL (8.0-11.0); Platelet Count 382 10^3/uL (130-400); RBC 4.44 10^6/uL (3.93-5.22); RDW-SD 44.5 fL; WBC 6.81 10^3/uL (4.4-10.8)
[2022-11-10 17:28] LABS: ALT 27 U/L (14-59); AST 15 U/L (15-37); Albumin 3.4 g/dL (3.4-5.0); Alkaline Phosphatase 105 U/L (46-116); Anion Gap 12.3 mmol/L (3-11); BUN 15 mg/dL (7-18); Bilirubin, Total 0.2 mg/dL (0.2-1.0); CO2 17.7 mmol/L (21.0-32.0); CREATININE 0.8 mg/dL (0.55-1.02); Calculated LDL 91 mg/dL (<100); Chloride 109 mmol/L (98-107); Cholesterol 160 mg/dL (<200); Estimated GFR 93.12 (mL/min/1.73m2); FREE T4 0.94 ng/dL (0.76-1.46); Glucose 193 mg/dL (74-106); HDL Cholesterol 33 mg/dL (40-60); Sodium 139 mmol/L (136-145); TSH 1.77 uIU/mL (0.36-3.74); Total Protein 6.7 g/dL (6.4-8.2); Triglyceride 184 mg/dL (<150)
[2022-11-10 17:35] LABS: MCHC 30.4 % (32.0-36.0); MCV 74 fL (80-95); RDW 16.6 % (11.7-14.6)
[2022-11-10 18:07] LABS: Hemoglobin A1C 6.7 % (<5.7)
[2022-11-10 18:30] LABS: Vitamin B12 183 pg/mL (193-986)
== END 2022-11-10 11:14 | disposition home or self-care (01) ==
LOC: NCHCN 11:13
PROVIDERS: PCP Physician Assistant; Visit Provider Physician Assistant
DX: R41.3 Other amnesia (principal); R73.03 Prediabetes; E53.8 Deficiency of other specified B group vitamins; D64.9 Anemia, unspecified; I10 Essential (primary) hypertension
CPT/HCPCS: 80053; 80061; 85027; 82607; 83036; 84439; 84443

== ENCOUNTER 2022-12-02 01:44 | Outpatient (CLI) | payer MEDICARE, MEDICAID, SELFPAY ==
--- NOTE | 2022-12-02 09:45 | DI.RAD_ITS ---
Exam(s) XR FOOT LT COMPLETE EXAM: XR FOOT LT COMPLETE CLINICAL HISTORY: LT FOOT PAIN, M79.672,JUST LAT TO 5TH MTP. TECHNIQUE: 2D digital imaging was performed of the left foot. Three images were obtained. AP, obli que and lateral views were obtained. COMPARISON: CR LEFT FOOT COMPLETE from 01/03/2014 CR LEFT FOOT COMPLETE from 03/03/2014 CR XR FOOT LT COMPLETE from 08/03/2021 FINDINGS: BONES: No acute fracture is present. No bony destructive lesion is seen. There is no change in the ch ronic bilobed appearance of the head of the 5th metatarsal bone. This is unchanged dating back to th e oldest film available dating 2013. No destructive change is seen. JOINTS: No dislocation present. The joint spaces are well maintained. SOFT TISSUE: There is mild soft tissue swelling lateral to the head of the 5th metatarsal. IMPRESSION: 1. Mild soft tissue swelling lateral to the head of the 5th metatarsal. 2. Stable chronic appearance of the head of the 5th metatarsal bone. DATA REPOSITORY: RADIATION DOSE DELIVERED:
== END 2022-12-02 02:04 ==
LOC: DI 01:44
PROVIDERS: PCP Physician Assistant; Visit Provider Physician Assistant
DX: M79.672 Pain in left foot (principal)
CPT/HCPCS: 73630

== ENCOUNTER 2022-12-12 10:44 | Emergency (ER) | payer MEDICARE, MEDICAID, SELFPAY ==
[2022-12-12 10:45] VITALS: BP 113/54; PULSE 66; RESP 16; TEMP 36.7; O2SAT 99
--- NOTE | 2022-12-12 11:12 | ED.GENADUL_ITS ---
Discharge Plan Disposition Patient Disposition: Home Condition: Stable Discharge Details Clinical Impression: Back spasm, Right wrist sprain Primary Care Provider: Caleb Ballard ED Provider: Fran Varner Home Meds and New Rx's Prescriptions: Continued mecobalamin (vitamin B12) 1,000 mcg tablet,chewable 1,000 mcg PO DAILY ibuprofen 800 mg tablet 800 mg PO TID PRN zolpidem [Ambien] 5 mg tablet 5 mg PO QHS PRN atorvastatin 20 mg tablet 20 mg PO DAILY albuterol sulfate [ProAir HFA] 90 mcg/actuation Hfa Aerosol Inhaler 1 - 2 puff INHALATION PRN PRN pregabalin [Lyrica] 150 mg Capsule 150 mg PO DAILY sertraline 100 mg tablet 100 mg PO BOLUSMAXRATE Patient Comments: TAKE 1 TABLET BY MOUTH EVERY DAY folic acid 1 mg tablet 1 mg DAILY Patient Comments: TAKE 1 TABLET BY MOUTH DAILY propranolol 20 mg tablet 20 mg PO DAILY Patient Comments: TAKE 1 TABLET BY MOUTH TWICE DAILY NEEDED FOR ANXIETY Linzess 290 mcg capsule 290 mcg PO DAILY Patient Comments: TAKE 1 CAPSULE BY MOUTH DAILY ferrous sulfate [iron] 325 mg (65 mg iron) Tablet 325 mg PO DAILY topiramate 100 mg tablet 1 tab PO HS Patient Comments: TAKE 1 TABLET BY MOUTH EVERY NIGHT methocarbamol 500 mg tablet 1,000 mg PO TID PRN (Reason: muscle spasm) Qty: 20 0RF Discontinued prednisone 20 mg tablet 40 mg PO DAILY Hold Instructions: Prescription Finished cholecalciferol (vitamin D3) 25 mcg (1,000 unit) capsule 25 mcg PO DAILY Hold Instructions: Pt Stopped/Never Started Discharge Instructions Instructions: Muscle Spasm (ED), Wrist Sprain (ED) Additional Instructions: Please take ibuprofen over the counter. Take 600mg by mouth every 6 hours as needed for pain. Please contact your primary care physician to arrange follow-up. Return to the ER immediately for any worsening or new concerning symptoms. Referrals: Caleb Ballard [Primary Care Provider] - Medical Decision Making 42-year-old female here with fall from chair to the ground 2 days ago with injury to her right wrist. Patient has tenderness of her distal radius and ulna. She has pain with any flexion or extension at the wrist. No proximal forearm tenderness or pain. Patient is neurovascular intact distally. Patient also notes diffuse back pain that has since developed. She has diffuse paraspinal back tenderness with no focal midline tenderness. X-ray of the right wrist was reviewed and interpreted by radiology: There is no evidence of acute fracture in any of the visualized osseous structures. There is no evidence of misalignment or dislocation of any visualized joint. Plan for volar wrist splint and routine follow-up with PCP. Usual customary discharge instructions were reviewed. HPI General Mode of arrival: ambulatory . Date/Time Provider Initiated Documentation: 12/12/22 10:57 . Limitations to Documentation: no limitations . Information obtained by: patient . HPI Narrative: 42-year-old female presents with chief complaint of wrist pain. Patient notes she fell from the chair to the ground 2 days ago. She injured her right wrist during the fall. She has had pain in her wrist since the injury. She also notes that she adriano her back during the fall and has pain in her entire back as well. No other injury sustained. Related Data Home Medications Medication Instructions Recorded Confirmed albuterol sulfate 90 mcg/actuation 1 - 2 puff inhalation PRN PRN 05/30/20 12/12/22 aerosol inhaler (ProAir HFA) pregabalin 150 mg capsule (Lyrica) 150 mg PO DAILY 05/30/20 12/12/22 atorvastatin 20 mg tablet 20 mg PO DAILY 06/18/20 12/12/22 folic acid 1 mg tablet 1 mg DAILY 12/20/20 10/01/22 linaclotide 290 mcg capsule 290 mcg PO DAILY 12/20/20 12/12/22 (Linzess) propranolol 20 mg tablet 20 mg PO DAILY 12/20/20 12/12/22 sertraline 100 mg tablet 100 mg PO BOLUSMAXRATE 12/20/20 12/12/22 ferrous sulfate 325 mg (65 mg 325 mg PO DAILY 08/03/21 12/12/22 iron) tablet (iron) topiramate 100 mg tablet 1 tab PO HS 08/03/21 12/12/22 methocarbamol 500 mg tablet 1,000 mg (2 x 500 mg) PO TID PRN 08/24/21 12/12/22 muscle spasm #20 tabs ibuprofen 800 mg tablet 800 mg PO TID PRN 04/02/22 12/12/22 mecobalamin (vitamin B12) 1,000 1,000 mcg PO DAILY 04/02/22 12/12/22 mcg chewable tablet zolpidem 5 mg tablet (Ambien) 5 mg PO QHS PRN 04/02/22 12/12/22 Previous Rx's Medication Instructions Recorded methocarbamol 500 mg tablet 1,000 mg (2 x 500 mg) PO TID PRN 08/24/21 muscle spasm #20 tabs Allergies Allergy/AdvReac Type Severity Reaction Status Date / Time lisinopril AdvReac Mild cough Verified 12/12/22 11:01 hydrocodone AdvReac Headache Verified 12/12/22 11:01 General Stated Complaint: Orthopedic CLIFFORD: 4 Review of Systems Musculoskeletal Musculoskeletal: Reports as per HPI PFSH All Active Problems (Updated 12/12/22 @ 11:42 by Fran Varner MD) Right wrist sprain (Acute) Back spasm (Acute) Acute oral pain (Acute) Jaw pain (Acute) Right carpal tunnel syndrome (Acute) S/P ECTR: 08/13/2020 Right wrist sprain (Acute) Sprain of forearm, right (Acute) Vitamin B12 deficiency (Acute) Acute pain of right wrist (Acute) Carpal tunnel syndrome (Acute) Gastric ulcer (Acute) Knee sprain (Acute) Knee contusion (Acute) Knee fracture (Acute) Bilateral kidney stones (Acute 11/04/15) Abdominal wall cellulitis (Acute) Constipation due to pain medication (Acute) Neuropathic pain (Acute) Abdominal pain (Acute) Patellofemoral syndrome, right (Acute) Right knee pain (Acute) History of hernia surgery (Chronic) Abdominal hernia (Acute) just above umbilicus Recurrent umbilical hernia with incarceration (Acute) Medical History Abdominal pain chronic RLQ pain that did not improve with ureteroscopy. LUQ pain. W/U at [facility]. Pt thinks that she has hiatal hernia. No evidence on imaging studies. Asthma stable. no exacerbations for 1 yr. 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 Chronic back pain Diarrhea due to drug Generalized anxiety disorder GERD (gastroesophageal reflux disease) Hair loss Headache Hematuria Hiatal hernia History of IBS History of prediabetes Hyperlipidemia Hypertension IBS (irritable bowel syndrome) Insomnia Low back pain Myofascial pain syndrome Obesity Pain, joint, knee, left Peripheral neuropathy Phantosmia Postoperative seroma Prediabetes Radicular pain Smoker Tobacco dependence Tobacco use Vitamin B12 deficiency (non anemic) Vitamin D deficiency Surgical History bone spur R foot. History of hernia repair Hx of esophagogastroduodenoscopy Ligation of fallopian tube Status post Molly fundoplication Tooth extraction Family History Mother Diabetes Father Epilepsy Social History Smoking/Tobacco Use Status: Current every day Tobacco Type: e-cigarettes Smoking risk assessment performed?: Yes Alcohol Intake: never Drug use: Never Substance use type: does not use Housing: apartment Number of Children: 4 current occupation: Disabled Current gender identity: female What is your relationship status?: living with partner Panel score (0-1 are the most socially isolated patients): 1 Do you feel safe at home: Yes Do you feel safe in your relationship?: Yes History History Para 0 Hx # Term Pregnancies Multiple births Hx # Pregnancies Ectopic pregnancies AB induced Hx Number of Living Children AB spontaneous Exam Const General: cooperative and no acute distress HENMT Head: normocephalic and atraumatic Cardio Rate: regular rate and not tachycardic Rhythm: regular rhythm Back/Spine/Pelvis Cervical Spine: cervical ROM normal, No cervical spinal tenderness and No step off deformity Thoracic/Lumbar Spine: paraspinal tenderness (Entire back), No thoracic spinal tenderness and No lumbar spinal tenderness Neuro General: patient alert, patient awake and tone normal Extrem General: no edema Right upper extremity: wrist Details: tenderness Location: of the distal radius and of the distal ulna and abnormal ROM Details: pain with active ROM during Details: with extension and with flexion; no swelling and hand Details: neuromotor exam normal and neurosensory exam normal Course Vital Signs Vital signs: Vital Signs Temperature 36.7 C 12/12/22 10:45 Pulse 66 12/12/22 10:45 Respiratory Rate 16 12/12/22 10:45 Blood Pressure 113/54 L 12/12/22 10:45 Pulse Oximetry 99 12/12/22 10:45 Temperature 36.7 C 12/12/22 10:45 Temperature Source Skin 12/12/22 10:45 Pulse 66 12/12/22 10:45 Respiratory Rate 16 12/12/22 10:45 Respiratory Effort Normal 12/12/22 11:04 Blood Pressure 113/54 L 12/12/22 10:45 Blood Pressure Position Sitting 12/12/22 10:45 Pulse Oximetry 99 12/12/22 10:45 Oxygen Delivery Method Room Air 12/12/22 10:45 Oxygen Flow Rate 0 12/12/22 10:45 Pain Level 10 12/12/22 10:45
--- NOTE | 2022-12-12 11:26 | DI.RAD_ITS ---
Exam(s) XR WRIST RT COMPLETE EXAM: XR WRIST RT COMPLETE CLINICAL HISTORY: pain, fall. TECHNIQUE: 2D digital imaging was performed. Three views. COMPARISON: CR XR WRIST RT COMPLETE from 09/24/2020 FINDINGS: BONES: No acute fracture is present. No bony destructive lesion is seen. JOINTS: The carpal bones are normally aligned. SOFT TISSUE: Normal. IMPRESSION: Unremarkable radiographs of the right wrist. DATA REPOSITORY: RADIATION DOSE DELIVERED:
--- NOTE | 2022-12-12 11:31 | DI.VRAD_ITS ---
PROCEDURE INFORMATION: Exam: XR Right Wrist Exam date and time: 12/12/2022 11:14 AM Age: 42 years old Clinical indication: Injury or trauma; Fall; Swelling (edema); Wrist; Right; Injury date: 12/10/2022 TECHNIQUE: Imaging protocol: Radiologic exam of the right wrist. Views: 3 or more views. COMPARISON: CR XR WRIST RT COMPLETE 09/24/2020 1:40 PM FINDINGS: Bones/joints: There is no evidence of acute fracture in any of the visualized osseous structures.. There is no evidence of malalignment or dislocation of any visualized joint. Mild Degenerative changes in the carpal bones Soft tissues: Normal. IMPRESSION: 1. There is no evidence of acute fracture in any of the visualized osseous structures.. 2. There is no evidence of malalignment or dislocation of any visualized joint. Dictated and Authenticated by: Selvin Valentino MD. Ordering:PEDRO Peters MD
== END 2022-12-12 11:59 | disposition home or self-care (01) ==
PROVIDERS: Emergency Provider Student in an Organized Health Care Education/Training Program; PCP Physician Assistant
DX: M79.601 Pain in right arm (principal); M62.830 Muscle spasm of back; S63.501A Unspecified sprain of right wrist, initial encounter; W07.XXXA Fall from chair, initial encounter; I10 Essential (primary) hypertension; Z79.899 Other long term (current) drug therapy; F17.200 Nicotine dependence, unspecified, uncomplicated; M54.50 Low back pain, unspecified; M54.9 Dorsalgia, unspecified; Z88.8 Allergy status to other drugs, medicaments and biological substances
CPT/HCPCS: 29125; 99283; 73110

== ENCOUNTER → 2023-01-19 01:15 | Outpatient (CLI) | payer MEDICARE, MEDICAID, SELFPAY ==
--- NOTE | 2023-01-19 | DI.MRI_ITS ---
Exam(s) MR BRAIN WO EXAM: MR BRAIN WO CLINICAL HISTORY: MEMORY LOSS R41.3 TECHNIQUE: Multiplanar multisequence MRI of the brain was performed. COMPARISON: CT CT HEAD WO from 10/06/2022 FINDINGS: CEREBRAL PARENCHYMA: There is no evidence of intracranial hemorrhage, mass effect, or shift of midline structures. There are no extra-axial fluid collections. Ventricles are not enlarged or shifted. There is no significant focal signal abnormality in the cerebellar hemispheres nor within the kacey, m idbrain, and thalami. There is no abnormal signal abnormality in the periventricular white matter. No evidence of demyelin ating disease. There is no significant focal signal abnormality evident on diffusion imaging to suggest acute ischem ic event. No restricted diffusion. Amount of involutional changes consistent with this patient's age. No evidence of prominent atrophy. PITUITARY GLAND: No mass nor parasellar abnormality. No obvious abnormality in the cavernous sinuses. FLOW VOIDS: The expected flow void are noted. No evidence of obvious aneurysm nor obvious vascular ma lformation. PARANASAL SINUSES: The visualized paranasal sinuses appear unremarkable. No obvious finding ORBITS: No obvious findings. IMPRESSION: No significant intracranial findings on this noninfused MRI scan of the brain. DATA REPOSITORY:
--- OUTSIDE RECORDS SUMMARY | 2023-01-19 01:17 | XMS_ITS | CCD ---
Author Name Unknown Address [address] [place] [address] [id number] Organization Unknown Address [address] [place] [address] [id number] Care Team Providers Care Dental Secretary Name Role Phone SUMAN AHMADI Attending Physician [phone] Vital Signs Unknown or Not Available. Allergies Allergy Code Allergy Type Reaction Status No Known Allergies 0 No known allergies Active Procedures Unknown or Not Available. History of Immunizations Unknown or Not Available. Problems Unknown or Not Available. Results Unknown or Not Available. Active Medications Unknown or Not Available. Medications Administered During Visit Unknown or Not Available. Encounters Encounter Diagnosis Diagnosis Code Start Date Personal history of traumatic brain injury [id number] 11/24/2022 Social History Smoking Status Code Start Date End Date Current every day smoker [id number] Patient Decision Aids Unknown or Not Available. Discharge Instructions You were admitted to [facility] on 11/24/2022 13:30 with a principal diagnosis of Personal history of traumatic brain injury You were discharged from [facility] Should you have any questions prior to discharge, please contact a member of your healthcare team. If you have left the hospital and have any questions, please contact your primary care physician. Chief Complaint and Reason For Visit Unknown or Not Available. Function Status Unknown or Not Available. Plan of Care Unknown or Not Available. Referral/Transition of Care Unknown or Not Available.
== END ==
PROVIDERS: PCP Physician Assistant; Visit Provider Physician Assistant
DX: R41.3 Other amnesia (principal)
CPT/HCPCS: 70551

== ENCOUNTER 2023-07-20 10:51 | Outpatient (REF) | payer MEDICARE, MEDICAID, SELFPAY ==
[2023-07-20 15:11] LABS: HCT 32.3 % (36.0-46.0); HGB 9.4 g/dL (11.2-15.7); MCH 20.8 pg (27.0-33.0); MPV 11.8 fL (8.0-11.0); Platelet Count 430 10^3/uL (130-400); RBC 4.53 10^6/uL (3.93-5.22); WBC 5.94 10^3/uL (4.4-10.8)
[2023-07-20 15:50] LABS: MCV 71 fL (80-95)
[2023-07-20 15:51] LABS: MCHC 29.1 % (32.0-36.0); RDW 18.7 % (11.7-14.6)
[2023-07-20 15:57] LABS: ALT 19 U/L (14-59); AST 9 U/L (15-37); Albumin 3.7 g/dL (3.4-5.0); Alkaline Phosphatase 94 U/L (46-116); BUN 13 mg/dL (7-18); Bilirubin, Total 0.3 mg/dL (0.2-1.0); CREATININE 0.8 mg/dL (0.55-1.02); Calcium 8.8 mg/dL (8.5-10.1); Calculated LDL 113 mg/dL (<100); Chloride 110 mmol/L (98-107); Cholesterol 178 mg/dL (<200); Estimated GFR 92.54 (mL/min/1.73m2); Glucose 145 mg/dL (74-106); HDL Cholesterol 40 mg/dL (40-60); Potassium 4.5 mmol/L (3.5-5.1); Sodium 142 mmol/L (136-145); Total Protein 7.1 g/dL (6.4-8.2); Triglyceride 125 mg/dL (<150); Vitamin B12 397 pg/mL (193-986)
[2023-07-20 16:03] LABS: Hemoglobin A1C 7.2 % (<5.7)
== END 2023-07-20 10:52 | disposition home or self-care (01) ==
LOC: NCHCN 10:51
PROVIDERS: PCP Physician Assistant; Visit Provider Physician Assistant
DX: E78.5 Hyperlipidemia, unspecified (principal); E11.9 Type 2 diabetes mellitus without complications; E53.8 Deficiency of other specified B group vitamins; D64.9 Anemia, unspecified
CPT/HCPCS: 80053; 80061; 85027; 82607; 83036

== ENCOUNTER 2023-10-06 16:58 | Outpatient (REF) | payer MEDICARE, MEDICAID, SELFPAY ==
--- OUTSIDE RECORDS SUMMARY | 2023-10-06 17:03 | XMS_ITS | Encounter Summary ---
Author Organization [facility] Address [facility] [place] [address] Care Team Providers Care Hotel Desk Clerk Name Role Phone Caleb Ballard Primary Care Provider [phone] Reason for Referral * Consultation (Routine) - Closed Specialty Diagnoses / Procedures Referred By Contac t Referred To Contact Pain Management Diagnoses Radicular pain Worsening chronic low back pain/ new RLE n/t/ CT (total spine) 08/28/21 @ [facility] Caleb Ballard PA [address] [place] [address] [place], [place] Referral ID Status Reason Start Date Expiration Date V isits Requested Visits Authorized [id number] Closed Consult, Test & Treat PCP Updated and/or Approved 09/07/2021 09/07/2022 6 6 Encounter Details Date Type Department Care Team (Late st Contact Info) Description 09/07/2021 Transcribe Orders eDH Incoming Referrals [phone] Caleb Ballard PA [address] [place] [address] Radicular pain Social History Tobacco Use Types Packs/Day Years Used Date Smoking Tobacco: Light Smoker Cigarettes Smokeless Tobacco: Never Comments:5 per day, will be starting patches Alcohol Use Standard Drinks/Week Comments No 0 (1 standard drink = 0.6 oz pur e alcohol) Sex and Gender Information Value Date Recorded Sex Assigned at Not on file Gender Identity Not on file Sexual Orientation Not on file documented as of this encounter Plan of Treatment Scheduled Referrals Name Type Priority Associated Diagnoses Orde r Schedule Referral to Spine Center Outpatient Referral Routine Radicular pain Ordered: 09/07/2021 documented as of this encounter Visit Diagnoses Diagnosis Radicular pain Neuralgia, neuritis, and radiculitis, unspecified documented in this encounter Care Teams Hotel Desk Clerk Relationship Specialty Start Date End Date Caleb Ballard PA [address] [place] [address] PCP - General Internal Medicine 10/28/20 documented as of this encounter
--- OUTSIDE RECORDS SUMMARY | 2023-10-06 17:03 | XMS_ITS | Encounter Summary ---
Author Organization [facility] Address [facility] [address] [place] [address] Care Team Providers Care Treater Name Role Phone Caleb Ballard Primary Care Provider [phone] Encounter Details Date Type Department Care Team (Late st Contact Info) Description 11/18/2020 Telephone [place]ematology [place] [phone] Katja Mc, APARTMENT MAINTENANCE MANAGER [facility] DR HEMATOLOGY [place] [address] Social History Tobacco Use Types Packs/Day Years [...] on file documented as of this encounter Miscellaneous Notes * Telephone Encounter - Katja Mc, RN - 11/18/2020 3:07 PM EDT Call placed to Ruby to remind her to garbage pick up man prescription for Folic Acid at the [facility] pharmacy in [facility]. In addition encouraged Ruby to continue taking vitamin B12. Instructed her that she will be contacted by [facility] for iron infusions. She wants to take oral iron rather that IV - Iexplained the issue she has with absorption. I encouraged her to seek transportation for the IV iron as this is most likely going to help her feel better along with replacement of Folic Acid and Vit B12. Will follow up next week. documented in this encounter Plan of Treatment Not on file documented as of this encounter Visit Diagnoses Not on filedocumented in this encounter Care Teams Treater Relationship Specialty Start Date End Date Caleb Ballard PA [address] [place] [address] PCP - General Internal Medicine 10/28/20 documented as of this encounter
--- OUTSIDE RECORDS SUMMARY | 2023-10-06 17:03 | XMS_ITS | Encounter Summary ---
Author Organization [facility] [place] [address] Care Team Providers Care Shop Clerk Name Role Phone Caleb Ballard Primary Care Provider [phone] Reason for Referral * Consultation (Routine) - Closed Specialty Diagnoses / Procedures Referred By Dayan parker Referred To Contact Neurology Diagnoses Memory loss Caleb Ballard PA [address] [place] [address] [facility] [address] [place] [phone] Referral ID Status Reason Start Date Expiration Date V isits Requested Visits Authorized [id number] Closed Consult, Test & Treat PCP Updated and/or Approved 11/01/2022 11/02/2023 12 12 Encounter Details Date Type Department Care Team (Late st Contact Info) Description 11/03/2022 Transcribe Orders eDH Incoming Referrals [phone] Caleb Ballard PA [address] [place] [address] Memory loss Social History Tobacco Use Types Packs/Day Years [...] Associated Diagnoses Orde r Schedule Referral to Neurology Outpatient Referral Routine Memory loss Ordered: 11/03/2022 documented as of this encounter Visit Diagnoses Diagnosis Memory loss documented in this encounter Care Teams Shop Clerk Relationship Specialty Start Date End Date Caleb Ballard PA [address] [place] [address] PCP - General Internal Medicine 10/28/20 documented as of this encounter
--- OUTSIDE RECORDS SUMMARY | 2023-10-06 17:03 | XMS_ITS ---
Author Organization Unknown Address [address] [place] [phone] Phone Care Team Providers Care Tree Tapping Laborer Name Role Phone DAIANA WILL Attending Unavailable PADILLA FLANAGAN Primary Unavailable Social History Type Status Start Date End Date Code Code Syst em Smoking History Current every day smoker [id number] SNOMED CT Sex Female Hospital Discharge Instructions Should you have any questions prior to discharge, please contact a member of your healthcare team. If you have left the hospital and have any questions, please contact your primary care physician. Reason For Referral No Data Found Allergies and Adverse Reactions Allergy Substance Reaction Severity Start Date Concern Status Co de Code System No Known Allergies Moderate Active [id number] SN OMED-CT Plan of Treatment No Data Found Encounters Encounter Diagnosis Start Date Code Code Sys tem Personal history of traumatic brain injury 11/24/2022 SNOMED-CT Personal Care Team Section Performer Name Performer Role Active Date Inactive Da italia
--- OUTSIDE RECORDS SUMMARY | 2023-10-06 17:03 | XMS_ITS | Encounter Summary ---
Author Organization [facility] [place] [address] Care Team Providers Care Presentation Team Member Name Role Phone Caleb Ballard Primary Care Provider [phone] Encounter Details Date Type Department Care Team (Latest Contact Info) Description 11/14/2020 11:00 AM EDT - 11/14/2020 11:59 PM EDT Hospital Encounter [place] [address] Microcytic anemia Discharge Disposition: Home Social History Tobacco Use Types Packs/Day Years [...] on file documented as of this encounter Medications at Time of Discharge Medication Sig Dispensed Refills Start Date End Date ferrous sulfate EC 325 mg (65 mg iron) Tablet, Delayed Release (E.C.) Take 1 tablet by mouth every other day. 30 tablet 2 11/14/2020 acetaminophen (Tylenol) 650 mg/20.3 mL Solution Take 20.3 mLs by mouth every 4 hours as needed (Mild Pain 1-3). 500 mL 06/28/2019 oxyCODONE (Roxicodone) 5 mg/5 mL Solution Take 5 mLs by mouth every 4 hours as needed for Pain (Moderate pain 4-10). 50 mL 06/28/2019 hydroCHLOROthiazide (Hydrodiuril) 25 mg Tablet TK 1 T PO D 04/06/2019 diazePAM (Valium) 5 mg Tablet TK 1 T PO BID FOR MUSCLE SPASM 06/01/2019 VENTOLIN HFA 90 mcg/actuation HFA Aerosol Inhaler 1-2 puffs as needed. 0 05/29/2018 cyclobenzaprine (FLEXERIL) 10 mg Tablet 1 tablet 2 times daily. 0 05/24/2018 ibuprofen (ADVIL;MOTRIN) 800 mg tablet 800MG = 1 Tablet(s), PO, Three times daily 10/03/2005 documented as of this encounter Plan of Treatment Not on file documented as of this encounter Procedures Procedure Name Priority Date/Time Associated Diagnosis Comments PATHOLOGY SLIDE REVIEW Routine 12:14 PM EDT TYPE AND SCREEN VALIDITY Routine 11/14/2020 11:26 AM EDT ABORH RECHECK STATUS Routine 11/14/2020 11:26 AM EDT ABO/RH TYPING Routine 11/14/2020 11:26 AM EDT Microcytic anemia ANTIBODY SCREEN Routine 11/14/2020 11:26 AM EDT Microcytic anemia HC ANTIBODY DETECTION,CAPTURE-R Routine 11/14/2020 11:26 AM EDT Microcytic anemia HC DIRECT ANTI-GLOBULIN TEST, BROAD SPECTRUM Routine 11/14/2020 11:26 AM EDT Microcytic anemia IMMUNOGLOBULIN FREE LIGHT CHAINS, SERUM Routine 11/14/2020 11:25 AM EDT Microcytic anemia PATHOLOGY SLIDE REVIEW Routine 11:25 AM EDT Microcytic anemia HC IGG, SERUM Routine 11/14/2020 11:25 AM EDT Microcytic anemia SCAN, PERIPHERAL BLOOD Routine 11:25 AM EDT HEMOGRAM Routine 11/14/2020 11:25 AM EDT Microcytic anemia DIFFERENTIAL, AUTOMATED Routine 11/15/19 11:25 AM EDT Microcytic anemia HC IRON BINDING CAPACITY Routine 11/14/2020 11:25 AM EDT Microcytic anemia HC RETIC,AUTO INCLUDES RETHE & IRF Routine 11/14/2020 11:25 AM EDT Microcytic anemia HC CBC,PLT & AUTO DIFF Routine 11:25 AM EDT Microcytic anemia HC SERUM PROT. ELECTROPHORESIS Routine 11/14/2020 11:25 AM EDT Microcytic anemia HC LACTIC DEHYDROGENASE Routine 11/15/19 11:25 AM EDT Microcytic anemia HC HAPTOGLOBINS, SERUM Routine 11:25 AM EDT Microcytic anemia HC FOLATE, SERUM Routine 11/14/2020 11:2 5 AM EDT Microcytic anemia HC FERRITIN, SERUM Routine 11/14/2020 11 :25 AM EDT Microcytic anemia HC VITAMIN B12 SERUM Routine 11/14/2020 11:25 AM EDT Microcytic anemia HC BETA 2 MICROGLOBULIN Routine 11/15/19 11:25 AM EDT Microcytic anemia COMPREHENSIVE METABOLIC PANEL Routine 11/14/2020 11:25 AM EDT Microcytic anemia documented in this encounter Results * Smear Review Report (11/14/2020 12:14 PM EDT) Smear Review Report [id number] ? Location: The signing pathologist has (i) examined the relevant preparation(s) for the specimen(s) and (ii) rendered or confirmed the diagnosis(es). . ? Smear Review DIAGNOSIS Microcytic anemia c/w iron defy Electronically signed by: ?Allison SOLORZANO, Obey Verified: ??11/14/2020 17:53 ??Hematopatholog ist Performed at: ??-[facility] Dept. of Pathology, [place], [place] DISCUSSION Reticulated Hemoglobin ( RET-HE test offered under reticulocyte count) is a more sensitive indicator of current iron stores and at 23.9 supports the finding . ADDITIONAL STUDIES See e-DH: LAB and PATHOLOGY, Lab Results, CBC and manual differential. CLINICAL INFORMATION . [facility] 11/14/2020 12:1 4 PM EDT Jovani Andino MD HEMATOLOGY ORDERABLE S Performing Organization Address [facility] Co de Phone Number [facility] [place] [address] * Type and Screen Validity (11/14/2020 11:26 AM EDT) T&S only valid at [facility] Comment:This Type and Screen result is only valid at the [facility] Blood 11/14/2020 11:2 6 AM EDT 11/14/2020 11:36 AM EDT Narrative Resulting Agency Comment Spec In Lab Jovani Andino MD BLOOD BANK LAB ORDER ROSENDO Performing Organization Address [facility]/ZIP Co de Phone Number [facility] [place] [address] * ABORH Recheck Status (11/14/2020 11:26 AM EDT) ABORH Type Recheck Completed [facility] Blood 11/14/2020 11:2 6 AM EDT 11/14/2020 11:36 AM EDT Narrative Resulting Agency Comment Spec In Lab Jovani Andino MD BLOOD BANK LAB ORDER ROSENDO [facility] [place] [address] * Antibody screen (11/14/2020 11:26 AM EDT) Ab Screen Interp Negative [facility] Expires at [id number] on: 11/17/2020 [facility] Blood 11/14/2020 11:2 6 AM EDT 11/14/2020 11:36 AM EDT Narrative Resulting Agency Comment Spec In Lab Jovani Andino MD BLOOD BANK LAB ORDER ROSENDO [facility] [place] [address] * ABO/Rh Typing (11/14/2020 11:26 AM EDT) ABORH Type A Pos [facility] Blood 11/14/2020 11:2 6 AM EDT 11/14/2020 11:36 AM EDT Narrative Resulting Agency Comment Spec In Lab Jovani Andino MD BLOOD BANK LAB ORDER ROSENDO [facility] [place] [address] * Direct antiglobulin test (11/14/2020 11:26 AM EDT) SUN Poly Negative [facility] Blood 11/14/2020 11:2 6 AM EDT 11/14/2020 11:36 AM EDT Narrative Resulting Agency Comment Spec In Lab Cisco Negro MD BLOOD BANK LAB ORD ERABLES [facility] [place] [place] [address] * Scan, Peripheral Blood (11/14/2020 11:25 AM EDT) Plat estimate Normal [facility] RBC Morphology Abnormal [facility] Microcyte 6-10 /HPF [facility] Hypochromia Slight [facility] Ovalocytes 1-5 /HPF [facility] [place] Cells 1-5 /HPF [facility] Blood 11/14/2020 11:2 5 AM EDT 11/14/2020 11:42 AM EDT Narrative Resulting Agency Comment Spec In Lab Jovani Andino MD HEMATOLOGY ORDERABLE S [facility] [place] [address] * Differential, Automated (11/14/2020 11:25 AM EDT) Pathologist [facility] Neutrophil % 55.9 % [facility] Neutrophil Absolute 4.39 1.70 - 6.10 x10(3)/[facility] LABORAT[facility] Lymph % 30.7 % [facility] Lymphocytes Abs 2.4 0.9 - 3.2 x10(3)/[facility] Monocyte % 9.6 % [facility] Monocyte Abs 0.8 0.3 - 0.9 x10(3)/[facility] Eos % 2.7 % [facility] Eosinophils Abs 0.2 0.0 - 0.4 x10(3)/[facility] Basophil % 1.0 % [facility] Baso Absolute 0.1 0.0 - 0.1 x10(3)/[facility] Immature Gran % 0.10 % [facility] Comment: Immature granulocytes(IG's)percentage and absolute count will include metamyelocytes, myelocytes, and promyelocytes. Blood smears from CBCs yielding IG's will be scanned manually for concordance. If this scan disagrees with the automated IG or if promyelocytes are noted, a manual differential will be performed. Immature Gran Absolute 0.01 0.00 - 0.04 x10(3)/mcL [facility] Blood 11/14/2020 11:2 5 AM EDT 11/14/2020 11:42 AM EDT Narrative Resulting Agency Comment Spec In Lab Jovani Andino MD HEMATOLOGY ORDERABLE S [facility] [place] [place] [address] * (ABNORMAL) Hemogram (11/14/2020 11:25 AM EDT) White Blood Cell 7.8 4.0 - 9.5 x10(3)/[facility] Red Blood Cell 5.06 4.00 - 5.21 x10(6)/[facility] Hemoglobin 10.9(L) 11.7 - 15.5 g/dL [facility] Hematocrit 35.2(L) 35.7 - 45.8 % [facility] Mean Cell Volume 69.6(L) 82.6 - 94.4 fL [facility] Mean Cell Hemoglobin 21.5(L) 27.1 - 32.0 pg [facility] Mean Cell Hemoglobin Concentration 31.0(L) 31.7 - 35.0 g/dL [facility] Platelet 388(H) 145 - 357 x10(3)/[facility] RDW Standard Deviation 45.1 37.0 - 46.0 [facility]ORY RDW coefficient of variation 18.7(H) 11.5 - 14.1 % [facility] Mean Platelet Volume 11.5 7.6 - 12.9 fL [facility] NRBC% auto 0.0 % [facility] NRBC Absolute 0.000 0.000 - 0.000 x10(3)/ L [facility] Blood 11/14/2020 11:2 5 AM EDT 11/14/2020 11:42 AM EDT Narrative Resulting Agency Comment Spec In Lab Jovani Andino MD HEMATOLOGY ORDERABLE S Performing Organization Address City/[facility]/ZIP Co de Phone Number [facility] [place] [address] * (ABNORMAL) Iron and TIBC (11/14/2020 11:25 AM EDT) Iron 11(L) 30 - 150 mcg/dL [facility] TIBC 400 250 - 450 mcg/dL [facility] Iron Saturation 3(L) 20 - 50 % [facility] Blood 11/14/2020 11:2 5 AM EDT 11/14/2020 11:42 AM EDT Narrative Resulting Agency Comment Spec In Lab Cisco Negro MD CHEMISTRY ORDERABL ES Performing Organization Address [facility] Co de Phone Number [facility] [place] [address] * (ABNORMAL) Comprehensive metabolic panel (non-fasting) (11/14/2020 11:25 AM EDT) [facility] Glucose 145 65 - 199 mg/dL [facility] Comment:Diabetes: >=200 mg/d L plus symptoms Blood Urea Nitrogen 13 8 - 18 mg/dL [facility] Creatinine 1.03 0.70 - 1.20 mg/dL [facility] Sodium 137 135 - 145 mmol/L [facility] Potassium 3.3(L) 3.5 - 5.0 mmol/L [facility] Comment: Please note: ??Patients with WBC >100,000 may have falsely elevated Potassium levels. ??For accurate Potassium quantification in these patients send serum separator tube (gold top) for subsequent determinations. ??Contact the Clinical Chemistry Laboratory if there are any questions. Chloride 107 98 - 107 mmol/L [facility] Carbon Dioxide 17(L) 22 - 31 mmol/L [facility] Anion Gap 13 5 - 15 mmol/L [facility] Calcium 9.2 8.5 - 10.5 mg/dL [facility] Protein, Total 7.3 6.1 - 8.0 g/dL [facility] Albumin 4.3 3.2 - 5.2 g/dL [facility] Aspartate Aminotransferase 14 0 - 30 unit/L [facility] Alanine Aminotransferase 13 0 - 30 unit/L [facility] Alkaline Phosphatase 119(H) 35 - 105 unit/L [facility] Bilirubin, Total 0.2 0.2 - 1.3 mg/dL [facility] Est Glomerular Filtration Rate 67 >=60 mL/min/1. 73 m?? [facility] Comment: This patient? s estimated glomerular filtration rate (eGFR) is between 67 mL/min/1.73 m2 (patients with less muscle mass) and 78 mL/min/1.73 m2 (patients with more muscle mass) as determined by the CKD-EPI equation. Assessment of eGFR is not appropriate when creatinine concentrations are rapidly changing. For clinical decisions where creatinine clearance will affect therapy, a 24-hour urine creatinine clearance may be advised. Assignment of CKD stage 1 - 5 for patients with an eGFR near the transition point between stages may be based on clinical assessment of muscle mass and symptoms in addition to eGFR. Blood 11/14/2020 11:2 5 AM EDT 11/14/2020 11:42 AM EDT Narrative Resulting Agency Comment Spec In Lab Cisco Negro MD CHEMISTRY ORDERABL ES [facility] [place] [address] * Lactate Dehydrogenase (11/14/2020 11:25 AM EDT) Lactate Dehydrogenase 149 110 - 220 unit/L [facility] Blood 11/14/2020 11:2 5 AM EDT 11/14/2020 11:42 AM EDT Narrative Resulting Agency Comment Spec In Lab Cisco Negro MD CHEMISTRY ORDERABL ES Performing Organization Address [facility]/ZIP Co de Phone Number [facility] [place] [address] * Peripheral Smear Review (11/14/2020 11:25 AM EDT) Peripheral Smear Review See Comment [facility] Comment: When completed by the Pathologist, report [id number] will display under Hematopathology Reports. Blood 11/14/2020 11:2 5 AM EDT 11/14/2020 11:42 AM EDT Narrative Resulting Agency Comment Spec In Lab Cisco Negro MD HEMATOLOGY ORDERAB LES Performing Organization Address [facility] Co de Phone Number [facility] [place] [address] * (ABNORMAL) Reticulocyte Count (11/14/2020 11:25 AM EDT) Reticulocyte % 1.0 0.7 - 2.5 % [facility] Retic Abs # 0.050 0.020 - 0.110 x10(6)/mcL [facility] Immature Retic% 21.9(H) 0.5 - 13.8 % [facility] Reticulated Hgb 23.9(L) 29.8 - 39.4 pg [facility] Blood 11/14/2020 11:2 5 AM EDT 11/14/2020 11:42 AM EDT Narrative Resulting Agency Comment Spec In Lab Cisco Negro MD HEMATOLOGY ORDERAB LES Performing Organization Address [facility]/ZIP Co de Phone Number [facility] [place] [address] * Vitamin B12 (11/14/2020 11:25 AM EDT) Vitamin B12 242 232 - 1,245 pg/mL [facility] Blood 11/14/2020 11:2 5 AM EDT 11/14/2020 11:42 AM EDT Narrative Resulting Agency Comment Spec In Lab Cisco Negro MD CHEMISTRY ORDERABL ES Performing Organization Address [facility]/ZIP Co de Phone Number [facility] [place] [address] * (ABNORMAL) Folate, serum (11/14/2020 11:25 AM EDT) Folate 4.6(L) 4.8 - 24.2 ng/mL [facility] Blood 11/14/2020 11:2 5 AM EDT 11/14/2020 11:42 AM EDT Narrative Resulting Agency Comment Spec In Lab Cisco Negro MD CHEMISTRY ORDERABL ES Performing Organization Address [facility] Co de Phone Number [facility] [place] [address] * (ABNORMAL) Ferritin (11/14/2020 11:25 AM EDT) Ferritin 7(L) 15 - 150 ng/mL [facility] Comment: Pediatric reference ranges not verified at [facility], interpret with caution. Reference ranges for females greater than 50 years of age approach values for men, i.e., 30-400 ng/mL. Blood 11/14/2020 11:2 5 AM EDT 11/14/2020 11:42 AM EDT Narrative Resulting Agency Comment Spec In Lab Cisco Negro MD CHEMISTRY ORDERABL ES Performing Organization Address [facility]/ZIP Co de Phone Number [facility] [place] [address] * Haptoglobin (11/14/2020 11:25 AM EDT) Haptoglobin 200 30 - 200 mg/dL [facility] Comment: Haptoglobin concentrations in newborns is low to undetectable; however, adult concentrations are usually attained by 4 months of age. ??No sex-related differences for haptoglobin have been detected. Blood 11/14/2020 11:2 5 AM EDT 11/14/2020 11:42 AM EDT Narrative Resulting Agency Comment Spec In Lab Cisco Negro MD CHEMISTRY ORDERABL ES Performing Organization Address [facility] Co de Phone Number [facility] [place] [address] * (ABNORMAL) Beta 2 Microglobulin, serum (11/14/2020 11:25 AM EDT) Beta 2 Microglobulin 2.3(H) 0.8 - 2.2 mg/L [facility] Blood 11/14/2020 11:2 5 AM EDT 11/14/2020 11:42 AM EDT Narrative Resulting Agency Comment Spec In Lab Cisco Negro MD CHEMISTRY ORDERABL ES Performing Organization Address [facility] Co de Phone Number [facility] [place] [address] * Immunoglobulins, Quantitative (11/14/2020 11:25 AM EDT) Immunoglobulin G 980 700 - 1,600 mg/dL [facility] Comment: Pediatric Reference Intervals obtained from the [employer] Reference Interval project. http://www.sickkids.ca/caliperproject/index.html IgA 191 70 - 400 mg/dL [facility] IgM 108 40 - 230 mg/dL [facility] Blood 11/14/2020 11:2 5 AM EDT 11/14/2020 11:42 AM EDT Narrative Resulting Agency Comment Spec In Lab Cisco Negro MD CHEMISTRY ORDERABL ES Performing Organization Address [facility] Co de Phone Number [facility] [place] [address] * Free Light Chains, Serum (11/14/2020 11:25 AM EDT) Reserve Free Light Chain 1.82 0.72 - 2.75 mg/dL [facility] Lambda Free Light Chain 2.04 0.57 - 2.15 mg/dL [facility] Reserve/Lambda FLC Ratio 0.8922 0.4000 - 2.5800 [facility] Blood 11/14/2020 11:2 5 AM EDT 11/14/2020 11:42 AM EDT Narrative Resulting Agency Comment Spec In Lab Cisco Negro MD CHEMISTRY ORDERABL ES Performing Organization Address [facility] Co de Phone Number [facility] [place] [address] * Protein Electrophoresis, serum (11/14/2020 11:25 AM EDT) Total Prot Electrophoresis 6.8 6.1 - 8.0 g/dL [facility] Albumin Electrophoresis 4.41 3.60 - 6.00 g/dL [facility] Alpha 1 Globulin 0.17 0.10 - 0.30 g/dL [facility] Alpha 2 Globulin 0.69 0.40 - 0.90 g/dL [facility] Beta Globulin 0.78 0.50 - 1.00 g/dL [facility] Gamma Globulin 0.74 0.50 - 1.30 g/dL [facility] M1 Band None Detected None Detected [facility] Blood 11/14/2020 11:2 5 AM EDT 11/14/2020 11:42 AM EDT Narrative Resulting Agency Comment Spec In Lab Cisco Negro MD CHEMISTRY ORDERABL ES Performing Organization Address [facility] Co de Phone Number [facility] [place] [address] documented in this encounter Visit Diagnoses Diagnosis Microcytic anemia Iron deficiency anemia, unspecified documented in this encounter Care Teams Presentation Team Member Relationship Specialty Start Date End Date Caleb Ballard PA [address] [place] [address] PCP - General Internal Medicine 10/28/20 documented as of this encounter
--- OUTSIDE RECORDS SUMMARY | 2023-10-06 17:03 | XMS_ITS | Encounter Summary ---
Author Organization [facility]ly [facility] Address [facility] Chris [address]dr[address]uez [place] [address] Care Team Providers Care Stringed Instrument Tuner Name Role Phone Caleb Ballard Primary Care Provider [phone] Encounter Details Date Type Department Care Team (Late st Contact Info) Description 11/18/2020 Orders Only [place] [address] Cisco Negro MD [facility] [address] [place] [address] Social History Tobacco Use Types Packs/Day Years [...] on filedocumented in this encounter Care Teams Stringed Instrument Tuner Relationship Specialty Start Date End Date Caleb Ballard PA [address] [place], [place] [id number] PCP - General Internal Medicine 10/28/20 documented as of this encounter
--- OUTSIDE RECORDS SUMMARY | 2023-10-06 17:03 | XMS_ITS | Clinical Summary ---
Author Organization [facility] Address [facility] [place] [address] Care Team Providers Care Retail Sales Representative Name Role Phone Caleb Ballard Primary Care Provider [phone] Allergies Active Allergy Reactions Criticality Noted Date Comments Lisinopril High 11/14/2020 Dry cough Medications Medication Sig Dispensed Refills Start Date End Date Status ibuprofen (ADVIL;MOTRIN) 800 mg tablet 800MG = 1 Tablet(s), PO, Three times daily 10/03/2005 Active VENTOLIN HFA 90 mcg/actuation HFA Aerosol Inhaler 1-2 puffs as needed. 0 05/29/2018 Active cyclobenzaprine (FLEXERIL) 10 mg Tablet 1 tablet 2 times daily. 0 05/24/2018 Active hydroCHLOROthiazide (Hydrodiuril) 25 mg Tablet TK 1 T PO D 04/06/2019 Active diazePAM (Valium) 5 mg Tablet TK 1 T PO BID FOR MUSCLE SPASM 06/01/2019 Active acetaminophen (Tylenol) 650 mg/20.3 mL Solution Take 20.3 mLs by mouth every 4 hours as needed (Mild Pain 1-3). 500 mL 06/28/2019 Active oxyCODONE (Roxicodone) 5 mg/5 mL Solution Take 5 mLs by mouth every 4 hours as needed for Pain (Moderate pain 4-10). 50 mL 06/28/2019 Active Additional Information Patient not taking.Reported on 11/14/2020 ferrous sulfate EC 325 mg (65 mg iron) Tablet, Delayed Release (E.C.) Take 1 tablet by mouth every other day. 30 tablet 2 11/14/2020 Active folic acid (Folvite) 1 mg Tablet Take 1 tablet by mouth daily. 90 tablet 3 11/18/2020 Active Active Problems Problem Noted Date Diagnosed Date S/P Molly fundoplication (w ithout gastrostomy tube) procedure 06/27/2019 Chronic bilateral low back pain without sciatica 06/22/2018 GERD (gastroesophageal reflux disease) 7 Social History Tobacco Use Types Packs/Day Years Used Date Smoking Tobacco: Light Smoker Cigarettes Smokeless Tobacco: Never Tobacco Cessation:Ready to Q uit: Yes Comments:5 per day, will be starting patches Alcohol Use Standard Drinks/Week Comments No 0 (1 standard drink = 0.6 oz pur e alcohol) Sex and Gender Information Value Date Recorded Sex Assigned at Not on file Gender Identity Not on file Sexual Orientation Not on file Last Filed Vital Signs Vital Sign Reading Time Taken Comments Blood Pressure 152/83 11/14/2020 10:01 AM EDT Pulse 85 11/14/2020 10:01 AM EDT Temperature 36.7 ??C (98.1 ??F) 11/14/2020 1 0:01 AM EDT Respiratory Rate 16 11/14/2020 10:0 1 AM EDT Oxygen Saturation 99% 11/14/2020 10: 01 AM EDT Inhaled Oxygen Concentration - - Weight 69.3 kg (152 lb 12.8 oz) 021 10:01 AM EDT Height 148.8 cm (4' 10.58) 11/14/2020 10:01 AM EDT Body Mass Index 31.3 11/14/2020 10:01 AM EDT Plan of Treatment Health Maintenance Due Date Last Done Comments CT Colonography 1978 Colonoscopy 1978 Colorectal Cancer Screening 1978 FIT DNA 1978 FIT 1978 Sigmoidoscopy (10 year) with FIT yearly 1978 Sigmoidoscopy 1978 Pneumococcal Vaccine: At-Ris k 5-64yrs (1 of 2 - PCV) 1984 HIV screen 1996 Hepatitis C Screening 1996 Lipid Screening 1996 Hepatitis B vaccine (0-59 yrs) (1) 1997 Tdap adult 1997 Tetanus vaccine 1997 HPV test 2008 PAP Smear 2008 Breast Cancer Share Decision Needed 2018 Breast Cancer screening 2018 Covid-19 Vaccine ( - 2022-2 4 season) 2022 Influenza (Flu) vaccine (1 o f 1 - Influenza standard series) 10/16/2023 Diabetes Screening (HgbA1C o r Glucose) 11/15/2023 11/14/2020, 06/28/2019, 06/27/2019, Additional history exists Procedures Procedure Name Priority Date/Time Associated Diagnosis Comments COMPREHENSIVE METABOLIC PANEL Routine 11/14/2020 11:25 AM EDT Microcytic anemia from Last 3 Months or Most Recently Relevant to Health Maintenance Results * (ABNORMAL) Comprehensive metabolic panel (non-fasting) (11/14/2020 11:25 AM EDT) Glucose 145 65 - 199 mg/dL [facility] Comment:Diabetes: >=200 mg/d L plus symptoms Blood Urea Nitrogen 13 8 - 18 mg/dL [facility] Creatinine 1.03 0.70 - 1.20 mg/dL [facility] Sodium 137 135 - 145 mmol/L [facility] Potassium 3.3(L) 3.5 - 5.0 mmol/L [facility] Comment: Please note: ??Patients with WBC >100,000 may have falsely elevated Potassium levels. ??For accurate Potassium quantification in these patients send serum separator tube (gold top) for subsequent determinations. ??Contact the Clinical Chemistry Laboratory if there are any questions. Chloride 107 98 - 107 mmol/L [facility] Carbon Dioxide 17(L) 22 - 31 mmol/L [facility] Anion Gap 13 5 - 15 mmol/L [facility] Calcium 9.2 8.5 - 10.5 mg/dL [facility] Protein, Total 7.3 6.1 - 8.0 g/dL [facility] Albumin 4.3 3.2 - 5.2 g/dL [facility] Aspartate Aminotransferase 14 0 - 30 unit/L [facility] Alanine Aminotransferase 13 0 - 30 unit/L [facility] Alkaline Phosphatase 119(H) 35 - 105 unit/L [facility] Bilirubin, Total 0.2 0.2 - 1.3 mg/dL [facility] Est Glomerular Filtration Rate 67 >=60 mL/min/1. 73 m?? [facility] Comment: This patient? s estimated glomerular [...] Lab Cisco Negro MD CHEMISTRY ORDERABL ES [facility] [place] [address] from Last 3 Months or Most Recently Relevant to Health Maintenance Advance Directives Documents on File Type Date Recorded Patient Parts Remover Padmini amezquita Personal [employer] Remover 04/22/2017 8:20 AM suad hunter Personal [employer] Remover 04/22/2017 8:20 AM monica riley Personal [employer] Remover 04/22/2017 8:20 AM suman suarez * Full Code (Latest Code Status on File) Date Activated Date Inactivated Comments 06/25/2019 2:12 PM 06/28/2019 6:26 PM Question Answer Comments Does patient have capacity to make decision: Yes * Full Code Date Activated Date Inactivated Comments 09/09/2016 3:54 PM 09/11/2016 3:19 PM Question Answer Comments Does patient have capacity to make decision: Yes Care Teams Retail Sales Representative Relationship Specialty Start Date End Date Caleb Ballard PA [address] [place] [address] PCP - General Internal Medicine 10/28/20
--- OUTSIDE RECORDS SUMMARY | 2023-10-06 17:04 | XMS_ITS | Encounter Summary ---
Author Organization [facility] Address [facility] Chris rodríguez [place] [address] Care Team Providers Care Rn Imcu Name Role Phone Caleb Ballard Primary Care Provider [phone] Reason for Visit * Consultation (Routine) - Closed Specialty Diagnoses / Procedures Referred By Dayan parker Referred To Contact Hematology and Oncology Diagnoses Anemia, unspecified Caleb Ballard PA [address] [facility] [address] [place] [address] [facility] [address] [place] [address] Referral ID Status Reason Start Date Expiration Date V isits Requested Visits Authorized [id number] Closed Consult, Test & Treat Connection Center PCP Updated and/or Approved 10/21/2020 04/20/2021 6 6 Encounter Details Date Type Department Care Team (Late st Contact Info) Description 11/14/2020 10:00 AM EDT Office Visit Hematology [place] [address] Cisco Negro MD [facility] [address] [place] [address] Jovani Andino MD [facility] HEMATOLOGY/[place] [address] Microcytic anemia (Primary Dx) Social History Tobacco Use Types Packs/Day Years [...] on file documented as of this encounter Last Filed Vital Signs Vital Sign Reading [...] Mass Index 31.3 11/14/2020 10:01 AM EDT documented in this encounter Progress Notes * Jovani Andino MD - 11/14/2020 10:00 AM EDT OUTPATIENT HEMATOLOGY/ ONCOLOGY CONSULTATION HISTORY PRESENT ILLNESS This patient is a 40 y.o. female with PMH GERD, erosive gastritis, and vitamin B12 deficiency presenting for evaluation of anemia. Initial Presentation She has been having ongoing fatigue for past couple of years. Patient initially had Molly fundoplication in 08/2016. It appeared hemoglobin was 12.1 at that time after the procedure. She used iron supplementation a couple years ago but did not feel like it helped. She had dysphasia and found to have recurrent hernia with a paraesophageal component and underwent revision of molly fundoplasty + hernia repair in 06/2019. Hemoglobin during that time was approximately in the 8s. Currently, she has decreased exercise tolerance and feels like she has to rest after 10-20 minutes. Family history of anemia in mother with CHIP. Current denies fevers, chills, drenching night sweats. She has irregular periods and requires 15 pads a day on heaviest cycles which she says is nothing new. No history of transfusion. She has history of vitamin B12 sometime this year. CBC 04/23/20 showed Hb 9.6 and MCV 67.6. Repeat CBC 10/20/20 showed Hb of 10.1 and MCV 70.6. Reticulocyte count was 1.6%. Relevant PMHx/ risk factors: GERD, erosive gastritis, and vitamin B12 deficiency Work up Imaging: - N/A Labs: - Repeat CBC 10/20/20 showed Hb of 10.1 and MCV 70.6. Reticulocyte count was 1.6% Biopsy: - N/A Stage: - N/A Treatment Course - Observation INTERIM HISTORY See presentation SOCIAL HISTORY- reviewed with significant changes noted Social History Socioeconomic History ??? Marital status: Spouse name: Not on file ??? Number of children: Not on file ??? Years of education: Not on file ??? Highest education level: Not on file Occupational History ??? Not on file Tobacco Use ??? Smoking status: Light Tobacco Smoker Packs/day: 0.25 Types: Cigarettes ??? Smokeless tobacco: Never Used ??? Tobacco comment: 5 per day, will be starting patches Vaping Use ??? Vaping Use: Never used Substance and Sexual Activity ??? Alcohol use: No ??? Drug use: No ??? Sexual activity: Not on file Other Topics Concern ??? Not on file Social History Narrative ??? Not on file Social Determinants of Health Financial Resource Strain: ??? Difficulty of Paying Living Expenses: Not on file Food Insecurity: ??? Worried About Running Out of Food in the Last Year: Not on file ??? Ran Out of Food in the Last Year: Not on file Transportation Needs: ??? Lack of Transportation (Medical): Not on file ??? Lack of Transportation (Non-Medical): Not on file Physical Activity: ??? Days of Exercise per Week: Not on file ??? Minutes of Exercise per Session: Not on file MEDICATIONS AND ALLERGIES- reviewed at this visit Medications 11/14/20 1009 Medication Sig Taking? acetaminophen (Tylenol) 650 mg/20.3 mL Solution Take 20.3 mLs by mouth every 4 hours as needed (Mild Pain 1-3). Yes VENTOLIN HFA 90 mcg/actuation HFA Aerosol Inhaler 1-2 puffs as needed. Yes ibuprofen (ADVIL;MOTRIN) 800 mg tablet 800MG = 1 Tablet(s), PO, Three times daily Yes oxyCODONE (Roxicodone) 5 mg/5 mL Solution Take 5 mLs by mouth every 4 hours as needed for Pain (Moderate pain 4-10). Patient not taking: Reported on 11/14/2020 hydroCHLOROthiazide (Hydrodiuril) 25 mg Tablet TK 1 T PO D diazePAM (Valium) 5 mg Tablet TK 1 T PO BID FOR MUSCLE SPASM cyclobenzaprine (FLEXERIL) 10 mg Tablet 1 tablet 2 times daily. PAST MEDICAL HISTORY- reviewed Patient Active Problem List Diagnosis Code ??? GERD (gastroesophageal reflux disease) K21.9 ??? Chronic bilateral low back pain without sciatica M54.50, G89.29 ??? S/P Molly fundoplication (without gastrostomy tube) procedure Z98.890 PAST SURGICAL HISTORY Past Surgical History: Procedure Laterality Date ??? PRO LAP, ESOPHAGOGAST FUNDOPLASTY N/A 09/09/2016 LAPAROSCOPIC MOLLY FUNDOPLASTY (WRVU 18.1) performed by César Barron MD at [facility] MAIN OR ??? PRO LAP, ESOPHAGUS, OTHER PROC N/A 06/25/2019 LAPAROSCOPIC REVISION OF MOLLY FUNDOPLASTY (WRVU *) performed by César Barron MD at [facility] OR ??? PRO LAP, ESOPHAGUS, OTHER PROC N/A 06/25/2019 LAPAROSCOPIC TAKEDOWN PREVIOUS MOLLY (WRVU *) performed by César Barron MD at [facility] OR ??? PRO UPPER GI ENDOSCOPY, BIOPSY N/A 07/30/2016 EGD WITH BIOPSY (WRVU 2.49) performed by Jovani Treviño MD at [facility] ENDOSCOPY ??? PRO UPPER GI ENDOSCOPY, DIAGNOSTIC N/A 06/25/2019 EGD, UPPER GI ENDOSCOPY performed by César Barron MD at [facility] MAIN OR ??? UMBILICAL HERNIA REPAIR FAMILY HISTORY- reviewed No family history on file. COMPREHENSIVE REVIEW OF SYSTEMS Besides what is mentioned in the HPI, all other systems are negative PHYSICAL EXAMINATION Patient Vitals for the past 24 hrs: Temp Pulse Resp BP SpO2 11/14/20 1001 36.7 ??C (98.1 ??F) 85 16 152/83 99 % NAD, pleasant, Heart is RRR Lung sounds are CTAB Abd is soft, NT/ ND, there is no palpable organomegally Lymphadenopathy is not appreciated in neck or axilla Joints are not swollen or inflamed There are no gross neurologic deficits. Facial movement is symmetric. Speech is fluent and congruent. Gait and balance are normal Affect and mood are appropriate for the situation There are no appreciable rashes LABORATORY EVALUATION No results found for this or any previous visit (from the past 24 hour(s)). RADIOGRAPHIC EVALUATION As above PATHOLOGY EVALUATION As above ASSESSMENT: Ruby Sprague is a 40 y.o. female with PMH GERD, erosive gastritis, and vitamin [id number] presenting for evaluation of anemia. #Microcytic anemia Suspect likely due to iron deficiency anemia with possibly a component of vitamin B12 deficiency. Thalassemia is a consideration but less likely, mother has CHIP which should not contribute to current presentation. Will order full anemia panel workup and start patient on oral supplementation ferrous sulfate 325mgevery other day. However due to gastric surgery/revision it may be difficult to replenish. Will also start IV iron infusion. Plan for patient to follow up with PCP Caleb Ballard in 3 months and re-check iron studies at that time. Jovani Andino MD Hematology/Oncology Fellow Pager: [phone] [facility] * Cisco Negro MD - 11/14/2020 10:00 AM EDT Images from the original note were not included. N [facility] HEMATOLOGY AND ONCOLOGY AT [facility] [address] Date: 11/14/2020 Patient Name: Ruby Sprague : 1980 Diagnosis: ____Iron deficiency anemia Referral to [site]: ____[facility] Orders: Venofer 300mg IV weekly x 4 Signature: ___Cisco Negro MD beeper # ____[phone] * Cisco Negro MD - 11/14/2020 10:00 AM EDT Hematology Staff Addendum I have seen and examined the patient, as well as reviewed the relevant clinical, laboratory and radiological data with Hematology medical team today. Please refer to comprehensive progress note from today, with which I concur, for complete details of our encounter with this patient. I have reviewedand endorse the plan as outlined and have made any additions/corrections below. Patient likely with severe MOISE. Will replete with IV iron in [facility] Pt unsure she will have ride to iron infusions Pt unable to reliably return to clinic, and wishes to f/u with PCP. Will reach out again if we can be of help. I recommend PCP check CBC, ferritin in February I am happy to see Ms Sprague back, but hoping we can manage her care closer to home to alleviate some social barriers. Cisco Negro MD Pager [phone] documented in this encounter Plan of Treatment Not on file documented as of this encounter Results * Direct antiglobulin test (11/14/2020 11:26 AM EDT) [facility] SUN Poly Negative [facility] Blood 11/14/2020 11:2 6 AM EDT 11/14/2020 11:36 AM EDT Narrative Resulting Agency Comment Spec In Lab Cisco Negro MD BLOOD BANK LAB ORD ERABLES [facility] [place] [address] * Protein Electrophoresis, serum (11/14/2020 11:25 AM EDT) [facility] Total Prot Electrophoresis 6.8 6.1 - 8.0 g/dL [facility] Albumin Electrophoresis 4.41 3.60 - 6.00 g/dL [facility] Alpha 1 Globulin 0.17 0.10 - 0.30 g/dL [facility] Alpha 2 Globulin 0.69 0.40 - 0.90 g/dL [facility] Beta Globulin 0.78 0.50 - 1.00 g/dL [facility] Gamma Globulin 0.74 0.50 - 1.30 g/dL [facility] M1 Band None Detected None Detected [facility] Blood 11/14/2020 11:2 5 AM EDT 11/14/2020 11:42 AM EDT Narrative Resulting Agency Comment Spec In Lab Cisco Negro MD CHEMISTRY ORDERABL ES Performing Organization Address [facility] Co de Phone Number [facility] [place] [address] * Free Light Chains, Serum (11/14/2020 11:25 AM EDT) [facility] Parc Free Light Chain 1.82 0.72 - 2.75 mg/dL [facility] Lambda Free Light Chain 2.04 0.57 - 2.15 mg/dL [facility] Parc/Lambda FLC Ratio 0.8922 0.4000 - 2.5800 [facility] Blood 11/14/2020 11:2 5 AM EDT 11/14/2020 11:42 AM EDT Narrative Resulting Agency Comment Spec In Lab Cisco Negro MD CHEMISTRY ORDERABL ES Performing Organization Address [facility] Co de Phone Number [facility] [place] [address] * Immunoglobulins, Quantitative (11/14/2020 11:25 AM EDT) Pathologist [facility] Immunoglobulin G 980 700 - 1,600 mg/dL [facility] Comment: Pediatric Reference Intervals obtained from the Caliper Reference Interval project. http://www.sickkids.ca/caliperproject/index.html IgA 191 70 - 400 mg/dL [facility] IgM 108 40 - 230 mg/dL [facility] Blood 11/14/2020 11:2 5 AM EDT 11/14/2020 11:42 AM EDT Narrative Resulting Agency Comment Spec In Lab Cisco Negro MD CHEMISTRY ORDERABL ES Performing Organization Address [facility] Co de Phone Number [facility] [place] [address] * (ABNORMAL) Beta 2 Microglobulin, serum (11/14/2020 11:25 AM EDT) Beta 2 Microglobulin 2.3(H) 0.8 - 2.2 mg/L [facility] Blood 11/14/2020 11:2 5 AM EDT 11/14/2020 11:42 AM EDT Narrative Resulting Agency Comment Spec In Lab Cisco Negro MD CHEMISTRY ORDERABL ES Performing Organization Address [facility] de Phone Number [facility] [place] [address] * Haptoglobin (11/14/2020 11:25 AM EDT) Haptoglobin 200 30 - 200 mg/dL [facility] Comment: Haptoglobin concentrations in newborns is low to undetectable; however, adult concentrations are usually attained by 4 months of age. ??No sex-related differences for haptoglobin have been detected. Blood 11/14/2020 11:2 5 AM EDT 11/14/2020 11:42 AM EDT Narrative Resulting Agency Comment Spec In Lab Cisco Negro MD CHEMISTRY ORDERABL ES Performing Organization Address [facility]/ZIP Co de Phone Number [facility] [place] [address] * (ABNORMAL) Ferritin (11/14/2020 11:25 AM EDT) Ferritin 7(L) 15 - 150 ng/mL [facility] Comment: Pediatric reference ranges not verified at [facility], interpret with caution. Reference ranges for females greater than 50 years of age approach values for men, i.e., 30-400 ng/mL. Blood 11/14/2020 11:2 5 AM EDT 11/14/2020 11:42 AM EDT Narrative Resulting Agency Comment Spec In Lab Cisco Negro MD CHEMISTRY ORDERABL ES Performing Organization Address [facility]/ZIP Co de Phone Number [facility] [place] [address] * (ABNORMAL) Folate, serum (11/14/2020 11:25 AM EDT) Folate 4.6(L) 4.8 - 24.2 ng/mL [facility] Blood 11/14/2020 11:2 5 AM EDT 11/14/2020 11:42 AM EDT Narrative Resulting Agency Comment Spec In Lab Cisco Negro MD CHEMISTRY ORDERABL ES Performing Organization Address City/[facility]/ZIP Co de Phone Number [facility] [place] [address] * Vitamin B12 (11/14/2020 11:25 AM EDT) Vitamin B12 242 232 - 1,245 pg/mL [facility] Blood 11/14/2020 11:2 5 AM EDT 11/14/2020 11:42 AM EDT Narrative Resulting Agency Comment Spec In Lab Cisco Negro MD CHEMISTRY ORDERABL ES [facility] [place] [address] * (ABNORMAL) Reticulocyte Count (11/14/2020 11:25 AM EDT) Reticulocyte % 1.0 0.7 - 2.5 % [facility] Retic Abs # 0.050 0.020 - 0.110 x10(6)/mcL [facility] Immature Retic% 21.9(H) 0.5 - 13.8 % [facility] Reticulated Hgb 23.9(L) 29.8 - 39.4 pg [facility] Blood 11/14/2020 11:2 5 AM EDT 11/14/2020 11:42 AM EDT Narrative Resulting Agency Comment Spec In Lab Cisco Negro MD HEMATOLOGY ORDERAB LES Performing Organization Address [facility] de Phone Number [facility] [place] [address] * Peripheral Smear Review (11/14/2020 11:25 AM EDT) Peripheral Smear Review See Comment [facility] Comment: When completed by the Pathologist, report [id number] will display under Hematopathology Reports. Blood 11/14/2020 11:2 5 AM EDT 11/14/2020 11:42 AM EDT Narrative Resulting Agency Comment Spec In Lab Cisco Negro MD HEMATOLOGY ORDERAB LES Performing Organization Address [facility] Co de Phone Number [facility] [place] [address] * Lactate Dehydrogenase (11/14/2020 11:25 AM EDT) Lactate Dehydrogenase 149 110 - 220 unit/L [facility] Blood 11/14/2020 11:2 5 AM EDT 11/14/2020 11:42 AM EDT Narrative Resulting Agency Comment Spec In Lab Cisco Negro MD CHEMISTRY ORDERABL ES [facility] [place] [address] * (ABNORMAL) Comprehensive metabolic panel (non-fasting) (11/14/2020 11:25 AM EDT) Glucose 145 65 - 199 mg/dL [facility] Comment:Diabetes: >=200 mg/d L plus symptoms Blood Urea Nitrogen 13 8 - 18 mg/dL [facility] Creatinine 1.03 0.70 - 1.20 mg/dL [facility] Sodium 137 135 - 145 mmol/L [facility] Potassium 3.3(L) 3.5 - 5.0 mmol/L [facility] Comment: Please note: ??Patients with WBC >100,000 may have falsely elevated Potassium levels. ??For accurate Potassium quantification in these patients send serum separator tube (gold top) for subsequent determinations. ??Contact the Clinical Chemistry Laboratory if there are any questions. Chloride 107 98 - 107 mmol/L [facility] Carbon Dioxide 17(L) 22 - 31 mmol/L [facility] Anion Gap 13 5 - 15 mmol/L [facility] Calcium 9.2 8.5 - 10.5 mg/dL [facility] Protein, Total 7.3 6.1 - 8.0 g/dL [facility] Albumin 4.3 3.2 - 5.2 g/dL [facility] Aspartate Aminotransferase 14 0 - 30 unit/L [facility] Alanine Aminotransferase 13 0 - 30 unit/L [facility] Alkaline Phosphatase 119(H) 35 - 105 unit/L [facility] Bilirubin, Total 0.2 0.2 - 1.3 mg/dL [facility] Est Glomerular Filtration Rate 67 >=60 mL/min/1. 73 m?? [facility] Comment: This patient? s estimated [...] MD CHEMISTRY ORDERABL ES Performing Organization Address City/[facility]/ZIP Co de Phone Number [facility] [place] [address] * (ABNORMAL) Iron and TIBC (11/14/2020 11:25 AM EDT) Iron 11(L) 30 - 150 mcg/dL [facility] TIBC 400 250 - 450 mcg/dL [facility] Iron Saturation 3(L) 20 - 50 % [facility] Blood 11/14/2020 11:2 5 AM EDT 11/14/2020 11:42 AM EDT Narrative Resulting Agency Comment Spec In Lab Cisco Negro MD CHEMISTRY ORDERABL ES Performing Organization Address City/[facility]/ZIP Co de Phone Number [facility] [place] [address] documented in this encounter Visit Diagnoses Diagnosis Microcytic anemia- Primary Iron deficiency anemia, unspecified documented in this encounter Care Teams Rn Imcu Relationship Specialty Start Date End Date Caleb Ballard PA [address] [place] [address] PCP - General Internal Medicine 10/28/20 documented as of this encounter
--- OUTSIDE RECORDS SUMMARY | 2023-10-06 17:04 | XMS_ITS | Encounter Summary ---
Author Organization [facility] [place] [address] Care Team Providers Care Business Management Manager Name Role Phone Talisha Treviño MD Primary Care Provider [phone] Encounter Details Date Type Department Care Team (Late st Contact Info) Description 07/23/2019 Telephone [place] [phone] Geri Avalos Social History Tobacco Use Types Packs/Day Years [...] encounter Miscellaneous Notes * Telephone Encounter - Geri Avalos - 07/23/2019 1:50 PM EDT Contacted patient to schedule a gif with oJhn (recall) but the patient stated that she still has not recovered from surgery and would like to wait to schedule. The patient said that she would contact the office when she was healed. documented in this encounter Plan of Treatment Not on file documented as of this encounter Visit Diagnoses Not on filedocumented in this encounter Care Teams Business Management Manager Relationship Specialty Start Date End Date Talisha Treviño MD [address] [place] [address] PCP - General Family Medicine 12/05/17 10/27/20 documented as of this encounter
--- OUTSIDE RECORDS SUMMARY | 2023-10-06 17:04 | XMS_ITS | Encounter Summary ---
Author Organization [facility] [place] [address] Care Team Providers Care Cable Cutter And Swager Name Role Phone Talisha Treviño MD Primary Care Provider [phone] Encounter Details Date Type Department Care Team (Late st Contact Info) Description 01/26/2019 Telephone [place] [phone] Hodan Singleton RN Social History Tobacco Use Types Packs/Day Years [...] encounter Miscellaneous Notes * Telephone Encounter - Hodan Singleton RN - 01/26/2019 3:59 PM EST Discussed below with Dr. Brantley in John Delaney'Carmen's absence. Please see Dr. Brantley's recommendation/response below for when patient returns call to the office. Covering for Tracia, patient with SIBO unable to tolerate neomycin or flagyl, rifaximin too expensive. I prescribed per augmentin 875/125 x10 days per Tracia's plan of care. * Telephone Encounter - Hodan Singleton RN - 01/26/2019 1:59 PM EST Patient calls the office leaving a message on the RN voicemail stating, I am getting sick from the new medication, getting confused, dry heaving a lot and major abdominal pain. occasionally not knowing where I am. Returned call to the patient to discuss above, was unable to reach patient by phone, left message on voicemail to call the office at her convenience. documented in this encounter Plan of Treatment Not on file documented as of this encounter Visit Diagnoses Not on filedocumented in this encounter Care Teams Cable Cutter And Swager Relationship Specialty Start Date End Date Talisha Treviño MD [address] [place] [address] PCP - General Family Medicine 12/05/17 10/27/20 documented as of this encounter
--- OUTSIDE RECORDS SUMMARY | 2023-10-06 17:04 | XMS_ITS | Encounter Summary ---
Author Organization [facility] [place] [address] Care Team Providers Care Lathe Puller Name Role Phone Talisha Treviño MD Primary Care Provider [phone] Reason for Visit * Reason Onset Date Comments Prior Authorization 12/20/2018 Encounter Details Date Type Department Care Team (Late st Contact Info) Description 12/20/2018 Tele[place] [phone] [facility] Prior Authorization Social History Tobacco Use Types Packs/Day Years [...] as of this encounter Miscellaneous Notes * Addendum Note - Tawana Duffy RN - 01/02/2019 4:23 PM ESTAddended by: TAWANA DUFFY on: 01/02/2019 04:23 PM Modules accepted: Orders * Telephone Encounter - Tawana Duffy RN - 01/02/2019 4:13 PM EST Received call from patient asking for status of PA for Rifaximin. Returned call to patient to advise per provider notes: Sibo: rifaximin 550mg bid x 14 days; if notcovered by insurance then neomycin 550mg tid x 14 days. Discussed potential side effects with patient and advised to stop should she develop tinnitus. She does not have a history of kidney disease. Discussed more common side effects. Advised to call if she experiences any adverse symptoms. New script for Neomycin pended to provider. * Telephone Encounter - Bety Sánchez LNA - 12/20/2018 11:25 AM EST Medication Prior Authorization 4L Gastroenterology / [place] [address] Subscriber Insurance: [employer] Phone: Fax: Physician: John Garner Return Pharmacy: [facility] Fax: Medication Requested: Xifaxin Strength: 550mg Frequency: Twice Daily Disp.: 28 Refills: 1 Currently taking: Diagnosis for this medication: SIBO ICD-10 code: K63.89 Prior medications trialed in this patient: Medication: Outcome/Adverse Reactions: Decision: Denied Tracking number/Case number/Reference number: Effective date: Start: End: documented in this encounter Plan of Treatment Not on file documented as of this encounter Visit Diagnoses Diagnosis Small intestinal bacterial overgrowth documented in this encounter Care Teams Lathe Puller Relationship Specialty Start Date End Date Talisha Treviño MD [address] [place] [address] PCP - General Family Medicine 12/05/17 10/27/20 documented as of this encounter
--- OUTSIDE RECORDS SUMMARY | 2023-10-06 17:04 | XMS_ITS | Encounter Summary ---
Author Organization [facility] Address [facility] [address] [place] [address] Care Team Providers Care Candles Pourer Name Role Phone Talisha Treviño MD Primary Care Provider [phone] Encounter Details Date Type Department Care Team (Late st Contact Info) Description 01/26/2019 Telephone [place] [id number] Ezequiel Brantley MD [facility] [place] [address] Social History Tobacco Use Types Packs/Day Years [...] encounter Miscellaneous Notes * Telephone Encounter - Ezequiel Brantley MD - 01/26/2019 2:44 PM EST Covering for Tracia, patient with SIBO unable to tolerate neomycin or flagyl, rifaximin too expensive. I prescribed per augmentin 875/125 x10 days per Tracia's plan of care. documented in this encounter Plan of Treatment Not on file documented as of this encounter Visit Diagnoses Not on filedocumented in this encounter Care Teams Candles Pourer Relationship Specialty Start Date End Date Talisha Treviño MD [address] [place] [address] PCP - General Family Medicine 12/05/17 10/27/20 documented as of this encounter
--- OUTSIDE RECORDS SUMMARY | 2023-10-06 17:04 | XMS_ITS | Encounter Summary ---
Author Organization [facility] Address [facility] [place] [address] Care Team Providers Care Material Handler 1St Shift Name Role Phone Talisha Treviño MD Primary Care Provider [phone] Reason for Visit * Auth/Cert Specialty Diagnoses / Procedures Referred By Dayan t Referred To Contact Diagnoses GERD (gastroesophageal reflux disease) recurrent hiatal hernia Post-Op monitoring Procedures PRO LAP, ESOPHAGUS, OTHER PROC PRO LAP, ESOPHAGUS, OTHER PROC PRO UPPER GI ENDOSCOPY, DIAGNOSTIC LAPAROSCOPIC REVISION OF BECCA FUNDOPLASTY (WRVU *) LAPAROSCOPIC TAKEDOWN PREVIOUS BECCA (WRVU *) EGD, UPPER GI ENDOSCOPY MODIFIER, HIATAL HERNIA Referral ID Status Reason Start Date Expiration Date Visits Re quested Visits Authorized [id number] 1 1 Encounter Details Date Type Department Care Team (Latest Contact Info) Description 06/25/2019 9:38 AM EDT - 06/28/2019 4:15 PM EDT Hospital Encounter [address] [place] [id number] Mariaelena Godinez MD [facility] [place] [address] Tachycardia; S/P Becca fundoplication (without gastrostomy tube) procedure Discharge Disposition: Home Social History Tobacco Use [...] Sign Reading Time Taken Comments Blood Pressure 125/76 06/28/2019 3:14 AM EDT Pulse 108 06/25/2019 7:38 PM EDT Temperature 36.9 ??C (98.4 ??F) 06/28/2019 3:14 AM ED T Respiratory Rate 18 06/28/2019 3:14 AM EDT Oxygen Saturation 89% 06/28/2019 12:00 PM EDT Inhaled Oxygen Concentration - - Weight 64.2 kg (141 lb 8.6 oz) 06/28/2019 8:00 A M EDT Height 149.9 cm (4' 11) 06/28/2019 8:00 AM EDT Body Mass Index 28.59 06/28/2019 8:00 AM EDT documented in this encounter Discharge Summaries * Margaret Rios PA - 06/26/2019 7:20 AM EDT General Surgery Discharge Summary Patient Name: Ruby Sprague Patient Age: 39 y.o. Birthdate: 1980 Admit date: 06/25/2019 Discharge date and time: 06/28/2019 Attending Physician: Mariaelena Godinez MD Primary Diagnosis: Recurrent Hiatal Hernia Secondary Diagnosis: Anxiety; Asthma; GERD; HTN; Post-op Anemia of Unknown Source; Hypoxemia secondary to Atelectasis Operations and Procedures: Laparoscopic Revision of Becca Fundoplasty with Takedown of Previous Becca and Intraoperative Upper Endoscopy Surgeons: Surgeon(s) and Role: * Mariaelena Godinez MD - Primary * Atif Mendez MD - Fellow History of Present Illness: Ruby Sprague is a 39-year-old female who underwent a Becca fundoplication back in August 2016. Recently she has developed dysphasia as well as recurrent reflux symptoms.She had a upper GI series done at an outside facility which showed a recurrent hernia with a paraesophageal component. It is possible her symptoms are all largely attributable to this recurrent hiatal hernia and a laparoscopic repair is recommended. Since she was last seen, she has had a repair of recurrent umbilical hernia with mesh, and this will not be a barrier to proceeding laparoscopically. Hospital Course: Ruby Sprague is a 39 y.o. female who was admitted on 06/25/2019 for laparoscopic revision of becca fundoplasty with takedown of previous becca and intraoperative upper endoscopy. The operative course was uneventful. On POD# 0 she was started on a post Becca clear liquid diet, and when she tolerated that she was advanced to a post Becca full liquid diet. She was noted to have a Hbg of 8.2, and on multiple checks it remained stable, there was no indication of active bleeding. On POD# 2 she was noted to continue having tachycardia and an oxygen requirement. An EKG demonstrated sinus tachycardia and ST & T wave abnormality, but her Troponin was <0.01. She was then noted to have hypokalemia and hypophosphatemia, which were repleted, and she was started on telemetry.When she continued to require oxygen, she was scheduled for a CT PE, which was negative for PE, butdid demonstrate bilateral small pleural effusions with associated compressive atelectasis. On POD# 3 her potassium remained low, so it was again repleted. She was no longer requiring supplemental oxygen. Her pain was managed with elixir Tylenol and Oxycodone. She was voiding without difficulty. On POD# 1 -3 the dressings were dry and intact and the wounds were benign. She did not have a bowel movement prior to discharge but was passing flatus and taking PO without difficulty. Prior to discharge on POD# 3 Ruby Sprague was afebrile, with stable vital signs. On POD# 3, she was discharged to home in stable condition. Vital Signs: Last value Range last 24hrs Temperature Temp: 36.9 ??C (98.4 ??F) Temp: [36.8 ??C (98.2 ??F)-37 ??C (98.6 ??F)] Heart Rate Heart Rate: (!) 108 Heart Rate: -- Blood Pressure BP: 125/76 BP: (125-152)/(76-94) Respiratory Rate Resp: 18 Resp: [15-18] SpO2 SpO2: (!) 89 % SpO2: [85 %-96 %] Pertinent Lab Data: Recent Labs 06/28/19 0721 06/27/19 0811 06/26/19 1136 06/26/19 0339 WBC 9.0 10.9* 14.2* 15.4* HGB 9.0* 8.3* 8.3* 8.2* HCT 29.7* 28.3* 28.2* 28.2* PLATELET 384* 415* 417* 419* Recent Labs 06/28/19 0721 06/27/19 0811 06/26/19 0339 06/25/19 1452 NA 138 140 139 138 K 2.9* 2.7* 3.5 3.6 CL 99 104 109* 106 CO2 26 25 21* 20* BUN 7* 5* 11 13 CREATININE 0.55* 0.65* 0.64* 0.88 GLUCOSE 99 111 144 281* CALCIUM 9.1 8.8 8.5 8.6 MAGNESIUM 0.86 0.74 -- 0.79 PHOS 4.0 2.2* -- 3.4 Physical Exam: General: NAD, resting comfortably, pleasant, conversant HEENT: PERRL, anicteric sclerae CVS: RRR Pulm: CTAB Abd: soft, appropriately tender, non-distended. 6 port sites without evidence of edema, erythema orecchymosis. No drainage or s/s of infection noted. : no problems with voiding Skin: warm, dry Ext: no c/c/e Neuro: CN 2-12 grossly intact, nonfocal,moving all four extremities spontaneously Imaging: Film Library- Storage Only Dx Gu Study Result Date: 06/11/2019 This exam is auto-finalizing. It's purpose is for storage only. Condition at discharge: Stable Mental Status: awake and alert, oriented x 3 Medications: Your Medications New Medications Dose Details oxyCODONE 5 mg/5 mL Soln Commonly known as: Roxicodone Take 5 mLs by mouth every 4 hours as needed for Pain (Moderate pain 4-10). 5 mg Quantity: 50 mL Refills: 0 potassium chloride ER 20 mEq Tbtq Commonly known as: K-Dur/Klor-Con Take 1 tablet by mouth 3 times daily for 30 days. Dissolve tablet in 6-8oz of water and drink. 20 mEq Quantity: 90 tablet Refills: 0 sennosides 8.8 mg/5 mL Syrp Commonly known as: Senokot Take 5 mLs by mouth daily as needed for up to 30 days. 5 mL Quantity: 150 mL Refills: 0 Continued medications with new dosing Dose Details acetaminophen 650 mg/20.3 mL Soln Commonly known as: Tylenol Take 20.3 mLs by mouth every 4 hours as needed (Mild Pain 1-3). What changed: reasons to take this 650 mg Quantity: 500 mL Refills: 0 promethazine 25 mg Tab Commonly known as: Phenergan Take 1 tablet by mouth every 6 hours as needed for Nausea for up to 7 days. What changed: See the new instructions. 25 mg Quantity: 28 tablet Refills: 0 Continued medications, unchanged Dose Details cyclobenzaprine 10 mg Tab Commonly known as: Flexeril 1 tablet 2 times daily. 1 tablet Refills: 0 diazePAM 5 mg Tab Commonly known as: Valium TK 1 T PO BID FOR MUSCLE SPASM Refills: 0 hydroCHLOROthiazide 25 mg Tab Commonly known as: Hydrodiuril TK 1 T PO D Refills: 0 ibuprofen 800 mg Tab Commonly known as: Advil;Motrin 800MG = 1 Tablet(s), PO, Three times daily Refills: 0 Ventolin HFA 90 mcg/actuation Hfaa 1-2 puffs as needed. Generic drug: albuterol 1-2 puff Refills: 0 STOPPED Medications Bisacodyl 5 mg Tab pantoprazole EC 40 mg Tbec Commonly known as: Protonix Disposition: Home Allergies: No Known Allergies Outpatient Services/Studies: No discharge procedures on file. Scheduled Appointments: Future Appointments and Orders Future Appointments and Orders Future Appointments Provider Department Dept Phone 08/01/2019 3:20 PM Mariaelena Godinez MD General Surgery at [facility] Arrive at: Industrial/Organizational Psychologist Area [phone] Future Orders Complete By Madalyn Walker standard [EQ135 Custom] As directed Process Instructions: Scheduling Instructions: Comments: Ruby Sprague [address] [address] Telephone Information: Diagnosis: Recent surgery with Unsteady gait Significant weakness, ataxia or gait abnormality Patient's: Hgt: 4'11Wgt : 141 lbs VENDOR: [facility] Ordering: Front wheel walker Deliver to [facility] room #: 318a cadence- dc today Questions: Vendor Name/Contact information: [facility] Instructions Given to Patient at Discharge: Call your doctor if you develop: Fever greater than 101.3 degrees Farenheit (38.5 degrees Celcius), chills, nausea or vomiting. Alsocall if you develop severe pain not relieved by your prescribed oral pain medicine. CALL THE GENERAL SURGERY CLINIC DURING WORKING HOURS AT , OR CALL AFTERCLINIC HOURS, WEEKENDS AND HOLIDAYS: ASK FOR THE GENERAL SURGERY RESIDENT LUMBER PULLER IF ANY OF THE ABOVE OCCUR. Activity level: Increase your activity slowly. You may tire easily, so frequent rest periods may be necessary. Do not lift more than 10 pounds for 4 weeks. Walk three times a day. Use common sense. Don't exhaust yourself. Driving: Do not drive while taking narcotic pain medications. If you are no longer taking pain medication, it should safe to drive when it no longer hurts getting in and out of the vehicle, and when you can quickly move your leg from the gas to the brake pedal without it causing pain. Diet: You should follow a post Becca diet, as instructed by the thermometer maker in the hospital for a period of approximately 3 weeks. The main purpose of this diet is to have you consume foods that will slide easily down into your stomach. Most foods when well chewed should pass through the esophagus and into your stomach. However, patients do not always chew foods well enough. Slow, thorough chewing isrecommended. Moistening foods with sauce, gravy, syrup or other liquids can be helpful. You should consume only very soft, small particle foods. You should not eat bread or drink carbonated beverages. You should start with more bland foods and if these are tolerated you may increase the amount of spice in your food. If you find there are foods that don't agree with you, try these sparingly until y ou can tolerate them. You need to remain in an upright position for 30-60 minutes after you eat. You may find that you need to eat smaller meals with frequent between meal snacks to get enough calories. Pills: Please crush all pills for 4 weeks. Other Medication Changes: Please discontinue the use of Protonix or any antacid medications until you are seen in the clinic for follow-up. This procedure should have helped with the heartburn symptoms, and if the medication is not stopped, we will not know if the surgery was successful. You have been given a medication to help keep your potassium levels in a normal range. Please continue this medication until otherwise directed by your PCP. There have been no changes to your other medications (other than crushing them for the next 4 weeks). Please resume taking them as you had prior to surgery. Pain Medication: Take only as needed. -Take the medication exactly as it is prescribed and make sure to read all instructions that come with the medication. -Over the next couple of days you should be requiring less of this medication to control your pain,so that eventually you will not need any at all. You do not have to take all of the medication thatwas prescribed, you may have some left over. -Use ibuprofen (motrin, advil) and/or tylenol prior to using this medication. If your pain is stillnot controlled, you may then use this medication. -Taking more than the prescribed amount of medication or using with alcohol or other drugs can cause you to stop breathing resulting in coma, brain damage or . -Opioids can slow reaction time, cause drowsiness or cloud judgement. No driving for 8 hours after any dose of opioid pain medication if one was prescribed for you. -Using this drug may cause addiction. While addiction is more common in people with a personal or family history of addiction, it can occur in anyone. -Opioids are at risk of being diverted by anyone with access to your home. Opioids should be storedin a safe and secure place, such as a locked cabinet or safe. -Unused opioids should be disposed of appropriately. They may be returned to a take-back location, or mixed with a small amount of water and poured over an undesirable waste such as used coffee grounds or cat litter. -Please note that most pain medications can cause constipation. You may use a stool softener such as Miralax to prevent this. Other Means for Pain Relief: Other than medications. ?? Learn deep breathing exercises or meditation to help you relax ?? Reduce stress ?? Your body produces natural endorphins from exercise which can help reduce pain. Even walking is considered exercise. Talk with your provider/surgical team about what exercises are appropriate for you to perform. ?? You may use a heating pad or apply ice to the painful area unless specifically discouraged by the surgical team. ?? Find ways to distract yourself from the pain. Shower/Bath: You may shower and let water run over wound 48 hours after your surgery. No soaking baths or swimming for 2 weeks from surgery. Wound Care: Once showering, wash your incision(s) daily with soap and rinse well, pat dry. Assess for any signsof infection such as increased redness, pain, warmth or drainage. The Steri-Strips will fall off in7-10 days. The brown bandaids can be removed at any time. Follow-up: You have a follow-up appointment scheduled to see Dr. Godinez at the [facility], on Tuesday, August 01, 2019 at 3:20pm. You will receive a letter in the mail confirming the appointment date and time. Your follow-up is very important to us. Please call [phone] if you do not hear from us within 7 days of discharge or if you need to change the appointment date/time. You also have an appointment at your PCP's office, either with Dr. Treviño or Dr. Shi at 3:05 on Tuesday, June 29, 2019. You were noted to have an elevated heart rate, low potassium, and an oxygen requirement while inpatient, please discuss these issues with your PCP. Signed: TELLY ALFARO 06/28/2019 Primary Care Physician: Talisha Treviño MD [address] / [facility] [address] documented in this encounter Discharge Instructions * Discharge Instructions* Margaret Rios PA - 06/28/2019 1:55 PM EDT Scheduled Appointments: Future Appointments and Orders Future Appointments and Orders Future Appointments Provider Department Dept Phone 08/01/2019 3:20 PM Mariaelena Godinez MD General Surgery at [facility] Arrive at: Industrial/Organizational Psychologist Area Instructions Given to Patient at Discharge: Call your doctor if you develop: Fever greater than 101.3 degrees Farenheit (38.5 degrees Celcius), chills, nausea or vomiting. Alsocall if you develop severe pain not relieved by your prescribed oral pain medicine. CALL THE GENERAL SURGERY CLINIC DURING WORKING HOURS AT , OR CALL AFTERCLINIC HOURS, WEEKENDS AND HOLIDAYS: ASK FOR THE GENERAL SURGERY RESIDENT LUMBER PULLER IF ANY OF THE ABOVE OCCUR. Activity level: Increase your activity slowly. You may tire easily, so frequent rest periods may be necessary. Do not lift more than 10 pounds for 4 weeks. Walk three times a day. Use common sense. Don't exhaust yourself. Driving: Do not drive while taking narcotic pain medications. If you are no longer taking pain medication, it should safe to drive when it no longer hurts getting in and out of the vehicle, and when you can quickly move your leg from the gas to the brake pedal without it causing pain. Diet: You should follow a post Becca diet, as instructed by the thermometer maker in the hospital for a period of approximately 3 weeks. The main purpose of this diet is to have you consume foods that will slide easily down into your stomach. Most foods when well chewed should pass through the esophagus and into your stomach. However, patients do not always chew foods well enough. Slow, thorough chewing isrecommended. Moistening foods with sauce, gravy, syrup or other liquids can be helpful. You should consume only very soft, small particle foods. You should not eat bread or drink carbonated beverages. You should start with more bland foods and if these are tolerated you may increase the amount of spice in your food. If you find there are foods that don't agree with you, try these sparingly until y ou can tolerate them. You need to remain in an upright position for 30-60 minutes after you eat. You may find that you need to eat smaller meals with frequent between meal snacks to get enough calories. Pills: Please crush all pills for 4 weeks. Other Medication Changes: Please discontinue the use of Protonix or any antacid medications until you are seen in the clinic for follow-up. This procedure should have helped with the heartburn symptoms, and if the medication is not stopped, we will not know if the surgery was successful. You have been given a medication to help keep your potassium levels in a normal range. Please continue this medication until otherwise directed by your PCP. There have been no changes to your other medications (other than crushing them for the next 4 weeks). Please resume taking them as you had prior to surgery. Pain Medication: Take only as needed. -Take the medication exactly as it is prescribed and make sure to read all instructions that come with the medication. -Over the next couple of days you should be requiring less of this medication to control your pain,so that eventually you will not need any at all. You do not have to take all of the medication thatwas prescribed, you may have some left over. -Use ibuprofen (motrin, advil) and/or tylenol prior to using this medication. If your pain is stillnot controlled, you may then use this medication. -Taking more than the prescribed amount of medication or using with alcohol or other drugs can cause you to stop breathing resulting in coma, brain damage or . -Opioids can slow reaction time, cause drowsiness or cloud judgement. No driving for 8 hours after any dose of opioid pain medication if one was prescribed for you. -Using this drug may cause addiction. While addiction is more common in people with a personal or family history of addiction, it can occur in anyone. -Opioids are at risk of being diverted by anyone with access to your home. Opioids should be storedin a safe and secure place, such as a locked cabinet or [employer]. -Unused opioids should be disposed of appropriately. They may be returned to a take-back location, or mixed with a small amount of water and poured over an undesirable waste such as used coffee grounds or cat litter. -Please note that most pain medications can cause constipation. You may use a stool softener such as Miralax to prevent this. Other Means for Pain Relief: Other than medications. ?? Learn deep breathing exercises or meditation to help you relax ?? Reduce stress ?? Your body produces natural endorphins from exercise which can help reduce pain. Even walking is considered exercise. Talk with your provider/surgical team about what exercises are appropriate for you to perform. ?? You may use a heating pad or apply ice to the painful area unless specifically discouraged by the surgical team. ?? Find ways to distract yourself from the pain. Shower/Bath: You may shower and let water run over wound 48 hours after your surgery. No soaking baths or swimming for 2 weeks from surgery. Wound Care: Once showering, wash your incision(s) daily with soap and rinse well, pat dry. Assess for any signsof infection such as increased redness, pain, warmth or drainage. The Steri-Strips will fall off in7-10 days. The brown bandaids can be removed at any time. Follow-up: You have a follow-up appointment scheduled to see Dr. Godinez at the [facility], on Thursday, August 01, 2019 at 3:20pm. You will receive a letter in the mail confirming the appointment date and time. Your follow-up is very important to us. Please call [phone] if you do not hear from us within 7 days of discharge or if you need to change the appointment date/time. You also have an appointment at your PCP's office, either with Dr. Treviño or Dr. Shi at 3:05 on Saturday, June 29, 2019. You were noted to have an elevated heart rate, low potassium, and an oxygen requirement while inpatient, please discuss these issues with your PCP. * Attachments The following attachments cannot be sent through Care Everywhere. * Becca Fundoplication: Post-op (Paraguayan) * Becca Fundoplication Surgery: General Info ([place]aguayan) documented in this encounter Medications at Time of Discharge Medication Sig Dispensed Refills Start Date End Date acetaminophen (Tylenol) 650 mg/20.3 mL Solution Take [...] 1 Tablet(s), PO, Three times daily 10/03/2005 potassium chloride ER (K-Dur/Klor-Con) 20 mEq Tab Sust.Rel. Particle/Crystal Take 1 tablet by mouth 3 times daily for 30 days. Dissolve tablet in 6-8oz of water and drink. 90 tablet 06/28/2019 07/28/2019 sennosides (Senokot) 8.8 mg/5 mL Syrup Take 5 mLs by mouth daily as needed for up to 30 days. 150 mL 06/28/2019 07/28/2019 promethazine (Phenergan) 25 mg Tablet Take 1 tablet by mouth every 6 hours as needed for Nausea for up to 7 days. 28 tablet 06/28/2019 07/05/2019 documented as of this encounter Progress Notes * Sandrnie Morton RN - 06/28/2019 3:59 PM EDT Patient alert and oriented x 4. Discharge instructions reviewed with patient at this time, all questions answered. Peripheral IV x 2 removed per TANKERMAN, cath tips intact. Patient tachycardic 100-120's at rest and 140's-150's with activity, team notified. Patient given oxy 5 mg x 2 for pain and valium 5mg x 1 this shift with positive effect. Patient oxygen saturation 90-94% this shift on room air. Patient did not require oxygen this shift but did require oxygen over night, team notified. IS encouraged every hour. Patient ambulating on unit with FWW and SBA, gait steady. Patient requested walker for use at home, sample case porter notified. [facility] delivered walker prior to discharge. Incision sitesCDI, PA removed bandaids prior to discharge. Patient left unit via wheelchair with TANKERMAN. Fiance to transport patient home at this time. Patient to follow up with PCP tomorrow. * Vale Solis RN - 06/28/2019 1:33 PM EDT Office of Care Management/Discharge Planning Note Care reviewed with primary medical team (Service: Gen Surg) and discussed in interdisciplinary rounds. Medical record reviewed. Patient to [facility] home via private car. Walker ordered through [facility]. No other services needed. Care Management will continue to monitor progress, follow for continuity of care, and assist with discharge planning. Patient Scheduler: Vale Solis Pager [phone] * Vale Solis RN - 06/28/2019 1:30 PM EDT The patient/payroll representative has been provided a list of Home Health Agencies/DME vendors which servetheir preferred geographic area. A letter describing our affiliations was reviewed with them and they were educated about their right to choose where referrals are placed. Patient requests referral to : [facility] for walker Expected date of discharge: now. Referral routed to the [employer] for matching with agency/vendor and to provide any required information. * Alia Ramos RN - 06/27/2019 5:00 PM EDT Patient off floor for CT. Tele removed. Will continue to monitor when patient returns to unit. Alia Ramos RN * Margaret Rios PA - 06/27/2019 10:40 AM EDT Minimally Invasive Surgery Inpatient Progress Note ID: Ruby Sprague is a 39 y.o. female s/p laparoscopic revision of becca fundoplasty with takedown of previous becca and intraoperative upper endosocpy. Now 2 Days Post-Op. 24hr events: ?? No acute events ?? Hbg 8.3 this am; continues to remain stable ?? Continues requiring oxygen, even with inactivity; Likely d/t atelectasis ?? EKG with sinus tachycardia and ST & T wave abnormalities; Troponins negative ?? Potassium and Phosphorous low this am; being replaced ?? Now on Telemetry Subjective: She admits to feeling ok this am, but states she feels very tired, and she is also noted to be shaky. She states she did not attempt any of the breakfast because she did not like what they gave her, but she did eat jello, and she has been drinking plenty of fluids. She did ambulate a few times yesterday, but had not attempted to ambulate yet this am. She states her pain is fairly wellcontrolled. She is also voiding without any problems. She currently denies n/v/cp/sob O: Last value Range last 24hrs Temperature Temp: 37.1 ??C (98.8 ??F) Temp: [36.9 ??C (98.4 ??F)-37.2 ??C (99 ??F)] Heart Rate Heart Rate: (!) 108 Heart Rate: -- Blood Pressure BP: 155/87 BP: (148-170)/(86-107) Respiratory Rate Resp: 17 Resp: [15-18] SpO2 SpO2: 94 % SpO2: [87 %-95 %] 06/25 0701 - 06/26 0700 In: 1000 [P.O.:1000] Out: 1750 [Urine:1750] Physical Exam: General: NAD, resting comfortably, pleasant, conversant HEENT: PERRL, anicteric sclerae CVS: Tachycardic, otherwise RRR Pulm: CTAB Abd: soft, appropriately tender, non-distended. 6 port sites without evidence of edema, erythema orecchymosis. No drainage or s/s of infection noted. : no problems with voiding Skin: warm, dry Ext: no c/c/e Neuro: non-focal, moving all four extremities spontaneously Labs: Recent Labs 06/27/19 0811 06/26/19 1136 06/26/19 0339 WBC 10.9* 14.2* 15.4* HGB 8.3* 8.3* 8.2* HCT 28.3* 28.2* 28.2* PLATELET 415* 417* 419* Recent Labs 06/27/19 0811 06/26/19 0339 06/25/19 1452 NA 140 139 138 K 2.7* 3.5 3.6 CL 104 109* 106 CO2 25 21* 20* BUN 5* 11 13 CREATININE 0.65* 0.64* 0.88 GLUCOSE 111 144 281* CALCIUM 8.8 8.5 8.6 MAGNESIUM 0.74 -- 0.79 PHOS 2.2* -- 3.4 Microbiology: None New Studies: EKG from 06/27/19 INTERPRETATION Preliminary Sinus tachycardia ST & T wave abnormality, consider anterolateral ischemia Abnormal ECG When compared with ECG of 06-OCT-2016 09:47, T wave inversion more evident in Anterior leads ASSESSMENT: Ruby Sprague is a 39 y.o. female s/p laparoscopic revision of becca fundoplasty with takedown of previous becca and intraoperative upper endosocpy. Now 2 Days Post-Op Progressing post-operatively with Hbg of 8.3 this am, continues to remain stable. No concerns for bleeding. Likely post-op anemia of uncertain cause. Potassium and Phosphorous low this am; replacing. Tachycardia, will monitor with telemetry. Continues to require oxygen for atelectasis, will attempt to wean when able. PLAN: NEURO: Pain control with elixir Tylenol and Oxycodone. Resume home Valium and Flexeril. CV: Continued tachycardia, EKG not completely normal, troponins negative. Resume home HCTZ. Monitorwith telemetry. PULM: Encourage frequent ambulation and IS use. Resume home Albuterol. Continues to require oxygen for atelectasis. GI: Diet Post-Becca Full Liquid diet Full Liquid : no problems with voiding; monitor UOP closely FEK: HLIV; monitor lytes and replace prn. Replace low potassium and phosphorous today. ID: no indication of active infection HEME: Hbg 8.3 this am; remains stable. No evidence of active bleeding ENDO: no active issues PROPHYLAXIS: None DISPO: Floor status, Full Code Plan for discharge tomorrow based on progress. TELLY ALFARO 06/27/2019 * Karson Madison - 06/26/2019 10:38 AM EDT Nutrition Services - Education Note Ruby Sprague : 1980 AGE: 39 y.o. MedDx/PMHx: Becca Reason for Nutrition Intervention: Consult Diet Order: Becca, Full liquids Appetite: Fair per patient Food allergies: NKFA Ht Readings from Last 3 Encounters: 06/25/19 147.3 cm (4' 10) 06/13/19 148.6 cm (4' 10.5) 12/18/18 148.6 cm (4' 10.5) Wt Readings from Last 3 Encounters: 06/25/19 61.7 kg (136 lb) 06/13/19 62 kg (136 lb 11.2 oz) 12/18/18 67.1 kg (148 lb) Body mass index is 28.42 kg/m??. Education: Becca dietary guidelines provided. Verbalized good understanding. Education material, with means of contact provided. Assessment: Patient seen regarding Consult - post-Becca diet education. Ruby verbalized good understanding of Becca guidelines. Highly recommended to follow foods allowed/foods not allowed list for 3 full weeks. Labor Relations Officer and patient discussed all foods on the allowed not allowed list in great detail. Patient had a list of questions, singer songwriter answered all questions patient had. Discussed incorporating supplemental shakes for additional calories and protein consumption. Labor Relations Officer will also provide 2 Boost Plus shakes on lunch tray for patient to take home and trial. Emphasized the importance ofno bread products, no carbonated beverages, no nuts, no seeds and no straw use and why. Encouraged 6 small meals daily with meats ground with gravy for the first week. Per patient, she had this procedure done a few years ago and was told by her Dr back than that she could drink soda after 3 days of her procedure. Labor Relations Officer encouraged patient to avoid soda for 3 weeks and if any concern, to check with her PA. Patient expressed good understanding. Patient consumed cream of rice cereal, and apple juice for breakfast. Labor Relations Officer collected patient???s diet appropriate lunch choices to promote and encourage PO Intake with foods patient likes. Encouraged strained soup, patient states that she does not have a motor transport inspector at home. Suggested pre made broth soup only. I have provided contact information in case any further questions should arise. Nutrition will continue to monitor and follow up with patient as needed. Nutrition Plan: Diet: Becca week 3. Encourage good po intake. Boost Plus or milk shakes 3 x day. No Bread, No Carbonated Beverages. 6 small meals encouraged. Meat ground with gravy for the first week. No nuts, no seeds. Moist/soft for 3 weeks. No straws. Monitor weight. Support and encouragement provided. Nutrition services to follow weekly through hospital course unless consulted in the interim. NAVIN Crook Pager #[phone] * Margaret Rios PA - 06/26/2019 7:46 AM EDT Minimally Invasive Surgery Inpatient Progress Note ID: Ruby Sprague is a 39 y.o. female s/p laparoscopic revision of becca fundoplasty with takedown of previous becca and intraoperative upper endosocpy. Now 1 Day Post-Op. 24hr events: ?? No acute events ?? Hbg 8.2 this am; also noted to have dizziness with ambulation ?? 2 episodes of nausea and retching Subjective: She admits to feeling ok this am. She states she feels better now than she did in the middle of the night. She was able to tolerate some of her breakfast, and states she has not had any nausea this morning. She also denies feeling dizzy when she is laying in the bed. She states her painis fairly well controlled. She is also voiding without any problems. She currently denies n/v/cp/sob O: Last value Range last 24hrs Temperature Temp: 36.8 ??C (98.2 ??F) Temp: [36 ??C (96.8 ??F)-36.8 ??C (98.2 ??F)] Heart Rate Heart Rate: (!) 108 Heart Rate: [87-108] Blood Pressure BP: (!) 154/95 BP: (116-171)/(47-96) Respiratory Rate Resp: 16 Resp: [15-16] SpO2 SpO2: 97 % SpO2: [93 %-100 %] 06/24 0701 - 06/25 0700 In: 2353 [P.O.:230; I.V.:2123] Out: 684 [Urine:675] Physical Exam: General: NAD, resting comfortably, pleasant, conversant HEENT: PERRL, anicteric sclerae CVS: RRR Pulm: CTAB Abd: soft, appropriately tender, non-distended. 6 port sites without evidence of edema, erythema orecchymosis. No drainage or s/s of infection noted. : no problems with voiding Skin: warm, dry Ext: no c/c/e Neuro: non-focal, moving all four extremities spontaneously Labs: Recent Labs 06/26/19 0339 WBC 15.4* HGB 8.2* HCT 28.2* PLATELET 419* Recent Labs 06/26/19 0339 06/25/19 1452 NA 139 138 K 3.5 3.6 CL 109* 106 CO2 21* 20* BUN 11 13 CREATININE 0.64* 0.88 GLUCOSE 144 281* CALCIUM 8.5 8.6 MAGNESIUM -- 0.79 PHOS -- 3.4 Microbiology: None New Studies: None ASSESSMENT: Ruby Sprague is a 39 y.o. female s/p laparoscopic revision of becca fundoplasty with takedown of previous becca and intraoperative upper endosocpy. Now 1 Day Post-Op Progressing post-operatively with Hbg of 8.2 this am, unsure of exact reason. Will recheck at 1200 and determine a plan at that time. PLAN: NEURO: Pain control with elixir Tylenol and Oxycodone. Resume home Valium and Flexeril. CV: No acute issues. Resume home HCTZ PULM: Encourage frequent ambulation and IS use. Resume home Albuterol. GI: Diet Post-Becca Full Liquid diet Full Liquid : no problems with voiding; monitor UOP closely FEK: HLIV; monitor lytes and replace prn ID: no indication of active infection HEME: Hbg 8.2 this am; dizziness when ambulating; will recheck and determine a plan ENDO: no active issues PROPHYLAXIS: None DISPO: Floor status, Full Code Plan for discharge later today or tomorrow based on progress. TELLY ALFARO 06/26/2019 * Kris Iverson RN - 06/25/2019 5:45 PM EDT Pt arrived to unit from PACU. Patient is sleepy, oriented x4. Vital signs stable. No complaints of chest pain or trouble breathing. No nausea or vomiting. Pain is 10/10 to midline chest & abdomen. Pt voided 100mL clear, yellow urine upon arriving to unit; ambulated to with 2 assist/FWW. Abdominal lap sites x6 are clean, dry and steri strips intact. See flowsheet for further assessments. Ptoriented to room and call wilkerson. Call wilkerson within reach. Will continue to monitor. Kris Iverson RN * Tawana Mistry RN - 06/25/2019 4:26 PM EDT 1620) Assuming care until patient able to get to her room. Resting comfortably. Awaiting floor to accept handoff. Allyson HERNANDEZ 1645) Handoff accepted and transportation requested. Allyson HERNANDEZ * Gema Oropeza RN - 06/25/2019 4:00 PM EDT Pt reports her abdominal pain is improving. She is sleeping quietly with even and unlabored respirations. She opens eyes spontaneously and is taking small sips of juice. * Gema Oropeza RN - 06/25/2019 3:31 PM EDT Pt is slowly becoming more alert. Facial expressions remain calm and relaxed, but she reports her upper abdomen is pretty painful. Head of bed elevated and treated for pain per PACU orders. Will continue to monitor. * Gema Oropeza RN - 06/25/2019 2:30 PM EDT Frequent episodes of bigeminy noted. Pt continues to rest quietly with even and unlabored respirations. PACU radiology resident notified. Labs ordered. Will continue to monitor. documented in this encounter H&P Notes * Atif Mendez MD - 06/25/2019 10:33 AM EDT Interval H&P HPI: The following was taken from Dr. Godinez's clinic note dated 06/13/2019: Ruby Sprague is a 39-year-old female who underwent a Becca fundoplication back in August 2016. I have not seen her back since her initial postoperative visit but more recently she has developed dysphasia as well as recurrent reflux symptoms. She had a upper GI series done at outside facility which shows a recurrent hernia with a paraesophageal component. Is a speak with her today I think her symptoms are all largely attributable to this recurrent hiatal hernia and I would recommend a laparoscopic repair. Since I last saw her she has had a repair of recurrent umbilical hernia with mesh I do not think this will be a barrier to proceeding laparoscopically. I mentioned risks to include possibility infection possibility bleeding requiring transfusion possible injury to the esophagus or stomach and a small chance of having to convert to the open surgery. There is also chance of recurrenceof hernia recurrence of reflux. Postop she is likely to experience a component of early satiety dysphasia and bloating majority symptoms diminished the further she gets out from surgery. Overall she seems understand would like to proceed we will give her date for surgery at some point in the near future. Overall I spent 40 minutes with her today the entire time in [id number] conversation regarding these issues PMH: Past Medical History: Diagnosis Date ??? Anxiety ??? Asthma ??? Back spasm ??? GERD (gastroesophageal reflux disease) ??? Hiatal hernia ??? HTN (hypertension) ??? Umbilical hernia PSH: Past Surgical History: Procedure Laterality Date ??? PRO LAP, ESOPHAGOGAST FUNDOPLASTY N/A 09/09/2016 LAPAROSCOPIC BECCA FUNDOPLASTY (WRVU 18.1) performed by Mariaelena Godinez MD at [facility] MAIN OR ??? PRO UPPER GI ENDOSCOPY, BIOPSY N/A 07/30/2016 EGD WITH BIOPSY (WRVU 2.49) performed by Jovani Treviño MD at [facility] ENDOSCOPY Medications: No current facility-administered medications on file prior to encounter. Current Outpatient Medications on File Prior to Encounter Medication Sig Dispense Refill ??? pantoprazole EC (Protonix) 40 mg Tablet, Delayed Release (E.C.) TK 1 T PO BID 30 MIN B ANGELIA AND SUPPER ??? hydroCHLOROthiazide (Hydrodiuril) 25 mg Tablet TK 1 T PO D ??? diazePAM (Valium) 5 mg Tablet TK 1 T PO BID FOR MUSCLE SPASM ??? promethazine (Phenergan) 25 mg Tablet TK 1 T PO Q 12 H PRN ??? Bisacodyl 5 mg Tablet Take 1 tablet by mouth 2 times daily. 60 tablet 11 ??? cyclobenzaprine (FLEXERIL) 10 mg Tablet 1 tablet 2 times daily. 0 ??? ibuprofen (ADVIL;MOTRIN) 800 mg tablet 800MG = 1 Tablet(s), PO, Three times daily ??? VENTOLIN HFA 90 mcg/actuation HFA Aerosol Inhaler 1-2 puffs as needed. 0 ??? acetaminophen (TYLENOL) 650 mg/20.3 mL Solution Take 20.3 mLs by mouth every 4 hours as needed.(Patient not taking: Reported on 06/13/2019) 3654 mL 3 Allergies: No Known Allergies Social Hx: Social History Socioeconomic History ??? Marital status: Spouse name: Not on file ??? Number of children: Not on file ??? Years of education: Not on file ??? Highest education level: Not on file Occupational History ??? Not on file Social Needs ??? Financial resource strain: Not on file ??? Food insecurity Worry: Not on file Inability: Not on file ??? Transportation needs Medical: Not on file Non-medical: Not on file Tobacco Use ??? Smoking status: Light Tobacco Smoker Packs/day: 0.25 Types: Cigarettes ??? Smokeless tobacco: Never Used ??? Tobacco comment: 5 per day, will be starting patches Substance and Sexual Activity ??? Alcohol use: No ??? Drug use: No ??? Sexual activity: Not on file Lifestyle ??? Physical activity Days per week: Not on file Minutes per session: Not on file ??? Stress: Not on file Relationships ??? Social connections Talks on phone: Not on file Gets together: Not on file Attends yazidism service: Not on file Active member of club or organization: Not on file Attends meetings of clubs or organizations: Not on file Relationship status: Not on file ??? Intimate partner violence Fear of current or ex partner: Not on file Emotionally abused: Not on file Physically abused: Not on file Forced sexual activity: Not on file Other Topics Concern ??? Not on file Social History Narrative ??? Not on file No interval changes. No recent illness or changes in health. Physical Exam: General: NAD Cardiac: RRR Respiratory: CTAB Abdomen: soft, NT/ND, prior incisions well healed Plan: Will proceed with planned surgery - laparoscopic hiatal hernia repair and redo- Becca fundoplication. Booked and consented. Atif Mendez MD documented in this encounter Miscellaneous Notes * Plan of Care - Gucci Elmore RN - 06/28/2019 7:44 AM EDT Problem: Patient Care Overview Goal: Plan of Care Review 06/26/1944406/28/19220 Coping/Psychosocial Plan Of Care Reviewed With -- patient Plan of Care Review Progress progress toward functional goals is gradual -- OUTCOME EVALUATION NOTE: OUTCOME SUMMARY: Pt anxious overnight, sleeping on/off. Nausea relieved by compazine IV. Abdominal pain relieved by oxycodone. PLAN MOVING FORWARD: Pain control, GI assessment. Full liquid diet for now. INDIVIDUALIZED FALL PREVENTION INTERVENTIONS: Patient-specific fall risk factors per assessment: [current deficits]: Pain meds, Assistance [level of assistance required for transfers and ambulation]: Up with standby. Supervision [direct monitoring required during toileting and ADLs]: Eyes onl Surveillance [continuous indirect monitoring]: Purposeful rounding, masimo Patient-specific fall prevention interventions for sensory deficits provided, if applicable: [X] No CPG GOAL OUTCOME EVALUATION: Goal: Individualization & Mutuality 06/26/19444 Individualization Patient Specific Goals Pain control, increase mobility Patient Specific Interventions Slow movements, clear liquids provided Goal: Fall Prevention-Safe Patient Handling 06/27/19 0800 06/27/19 2320 06/28/19 022 Daily Care Interventions Self-Care Promotion independence encouraged -- -- Perera Fall Risk History of Falling -- -- 0 Secondary Diagnosis -- -- 15 Ambulatory Aids -- -- 15 Intravenous Therapy/Heparin/Saline Lock -- -- 20 Gait/Transferring -- -- 10 Mental Status -- -- 0 Score -- -- 60 OTHER Perera Fall Risk -- -- High Restraint Interventions Safety Promotion/Fall Prevention -- -- activity supervised Positioning Body Position independent -- -- Activity Activity Type -- ambulated in wilson -- Activity Assistance Provided -- assistance, stand-by -- Assistive Device Utilized -- front-wheel walker -- Goal: Infection Control 06/27/19 0800 06/28/19 0221 Safety Interventions Isolation Precautions standard precautions maintained -- Infection Prevention rest/sleep promoted -- Coping Strategies Supportive Measures -- active listening utilized Goal: Discharge Needs Assessment 06/26/19 0445 06/26/19 1454 Discharge Needs Assessment Readmission Within The Last 30 Days -- no previous admission in last 30 days Current Discharge Risk -- dependent with mobility/activities of daily living Discharge Disposition still a patient -- Current Health Anticipated Changes Related to Illness -- none Activity/Self Care Review of Systems Equipment Currently Used at Home -- none Living Environment Transportation Available -- family or friend will provide (boyfriend able to come after 2pm) * Plan of Care - Alia Ramos RN - 06/27/2019 5:16 PM EDT Problem: Skin Integrity Impairment, Risk/Actual (Adult) Goal: Skin Integrity/Wound Healing Patient will demonstrate the desired outcomes by discharge/transition of care. Outcome: Ongoing (Interventions Implemented as Appropriate) 06/26/19444 Skin Integrity Impairment, Risk/Actual (Adult) Skin Integrity/Wound Healing making progress toward outcome OUTCOME EVALUATION NOTE: OUTCOME SUMMARY: Patient A/Ox4, patient tachy throughout shift, MD aware, on 2L NC, otherwise VSS. Patient placed ontele this shift. Pain controlled with scheduled and PRN medications, see mar. Dressings to abdomen with small amounts of dry serosanguinous drainage; otherwise, c/d/i. Patient up with standby assist and FWW, patient walked once around unit with nursing staff. Up to the bathroom, voiding adequately.Patient resting between care. Patient off unit to CT for PE rule out. Will continue to monitor. PLAN MOVING FORWARD: Pain control PT/OT Decrease oxygen demand CT for PE rule out D/C planning INDIVIDUALIZED FALL PREVENTION INTERVENTIONS: Patient-specific fall risk factors per assessment: [current deficits]: Pain, recent surgery, generalized weakness, hospital environment Assistance [level of assistance required for transfers and ambulation]: SBA w/FWW Supervision [direct monitoring required during toileting and ADLs]: Hands on eyes on Surveillance [continuous indirect monitoring]: Masimo, tele, hourly rounding, safety checks, nurse knowledge exchange CPG GOAL OUTCOME EVALUATION: Problem: Patient Care Overview Goal: Plan of Care Review Outcome: Ongoing (Interventions Implemented as Appropriate) 06/26/1944406/27/19 08 Coping/Psychosocial Plan Of Care Reviewed With -- patient Plan of Care Review Progress progress toward functional goals is gradual -- Goal: Individualization & Mutuality Outcome: Ongoing (Interventions Implemented as Appropriate) 06/26/19 044 Individualization Patient Specific Goals Pain control, increase mobility Patient Specific Interventions Slow movements, clear liquids provided Goal: Fall Prevention-Safe Patient Handling Outcome: Ongoing (Interventions Implemented as Appropriate) 06/27/19 0806/27/19 1655 Daily Care Interventions Self-Care Promotion independence encouraged -- Perera Fall Risk History of Falling 0 -- Secondary Diagnosis 15 -- Ambulatory Aids 15 -- Intravenous Therapy/Heparin/Saline Lock 20 -- Gait/Transferring 10 -- Mental Status 0 -- Score 60 -- OTHER Perera Fall Risk High -- Restraint Interventions Safety Promotion/Fall Prevention activity supervised;nonskid shoes/slippers when out of bed;safety round/check completed -- Positioning Body Position independent -- Activity Activity Type -- activity adjusted per tolerance Activity Assistance Provided -- assistance, stand-by Assistive Device Utilized -- front-wheel walker Goal: Infection Control Outcome: Ongoing (Interventions Implemented as Appropriate) 06/27/19 08 Safety Interventions Isolation Precautions standard precautions maintained Infection Prevention rest/sleep promoted Coping Strategies Supportive Measures active listening utilized;self-care encouraged Goal: Discharge Needs Assessment Outcome: Ongoing (Interventions Implemented as Appropriate) 06/26/1944406/26/19 1454 Discharge Needs Assessment Readmission Within The Last 30 Days -- no previous admission in last 30 days Current Discharge Risk -- dependent with mobility/activities of daily living Discharge Disposition still a patient -- Current Health Anticipated Changes Related to Illness -- none Activity/Self Care Review of Systems Equipment Currently Used at Home -- none Living Environment Transportation Available -- family or friend will provide (boyfriend able to come after 2pm) Goal: Interdisciplinary Rounds/Family Conf Outcome: Ongoing (Interventions Implemented as Appropriate) 06/26/19 1454 Interdisciplinary Rounds/Family Conf Participants nursing;physician;patient Problem: Nausea/Vomiting (Adult) Goal: Symptom Relief Patient will demonstrate the desired outcomes by discharge/transition of care. Outcome: Ongoing (Interventions Implemented as Appropriate) 06/26/19444 Nausea/Vomiting (Adult) Symptom Relief making progress toward outcome Goal: Adequate Hydration Patient will demonstrate the desired outcomes by discharge/transition of care. Outcome: Ongoing (Interventions Implemented as Appropriate) 06/26/19444 Nausea/Vomiting (Adult) Adequate Hydration making progress toward outcome Problem: Pain, Acute (Adult) Goal: Acceptable Pain Control/Comfort Level Patient will demonstrate the desired outcomes by discharge/transition of care. Outcome: Ongoing (Interventions Implemented as Appropriate) 06/26/19444 Pain, Acute (Adult) Acceptable Pain Control/Comfort Level making progress toward outcome * Plan of Care - Adelina Mills RN - 06/27/2019 5:06 AM EDT Problem: Patient Care Overview Goal: Plan of Care Review Outcome: Ongoing (Interventions Implemented as Appropriate) 06/26/1944406/26/192017 Coping/Psychosocial Plan Of Care Reviewed With -- patient Plan of Care Review Progress progress toward functional goals is gradual -- OUTCOME EVALUATION NOTE: OUTCOME SUMMARY: Patient progressing towards d/c goals appropriately at this time. Patient A&O x 4, maintaining on 2L NC throughout the night. IS and ambulation encouraged. High BPs this shift, PRN hydralazine ordered with + effect. Patient ambulated around unit with SBA. Patient voiding adequately. Abdominal lap sites with steri strips SUPERVISORY HISTORIAN and c/d/i. Patients pain adequately controlled, see MAR for medications given. Patient denies chest pain, shortness of breath, numbness or tingling. Will continue to monitor and help patient reach d/c goals. PLAN MOVING FORWARD: Pain control Monitor O2 needs D/c planning INDIVIDUALIZED FALL PREVENTION: Patient is currently a medium risk to Fall. Patient educated on bed/chair alarm, demonstrates proper use of call wilkerson and verbalizes understanding of fall preventions implemented. Patient-specific fall risk factors per assessment: [current deficits]: Recent surgery, IV Sites, Pain, Medications, Hospital Environment. Assistance [level of assistance required for transfers and ambulation]: SBA, FWW Supervision [direct monitoring required during toileting and ADLs]: Eyes on assistance with ADL's Surveillance [continuous indirect monitoring]: Masimo, Purposeful Rounding, Bedside Report Patient-specific fall prevention interventions for sensory deficits provided, if applicable: [X] Yes CPG GOAL OUTCOME EVALUATION: Goal: Individualization & Mutuality Outcome: Ongoing (Interventions Implemented as Appropriate) 06/26/19444 Individualization Patient Specific Goals Pain control, increase mobility Patient Specific Interventions Slow movements, clear liquids provided Goal: Fall Prevention-Safe Patient Handling Outcome: Ongoing (Interventions Implemented as Appropriate) 06/26/19145306/26/192017 Daily Care Interventions Self-Care Promotion independence encouraged;BADL personal objects within reach;safe use of adaptiveequipment encouraged -- Perera Fall Risk History of Falling -- 0 Secondary Diagnosis -- 15 Ambulatory Aids -- 15 Intravenous Therapy/Heparin/Saline Lock -- 20 Gait/Transferring -- 10 Mental Status -- 0 Score -- 60 OTHER Perera Fall Risk -- High Restraint Interventions Safety Promotion/Fall Prevention -- activity supervised;safety round/check completed Positioning Body Position -- supine, head elevated Activity Activity Type -- activity adjusted per tolerance Activity Assistance Provided -- assistance, stand-by Assistive Device Utilized -- front-wheel walker Goal: Infection Control Outcome: Ongoing (Interventions Implemented as Appropriate) 06/26/192017 Safety Interventions Isolation Precautions standard precautions maintained Infection Prevention rest/sleep promoted Coping Strategies Supportive Measures active listening utilized;verbalization of feelings encouraged Goal: Discharge Needs Assessment Outcome: Ongoing (Interventions Implemented as Appropriate) 06/26/1944406/26/191453 Discharge Needs Assessment Readmission Within The Last 30 Days -- no previous admission in last 30 days Current Discharge Risk -- dependent with mobility/activities of daily living Discharge Disposition still a patient -- Current Health Anticipated Changes Related to Illness -- none Activity/Self Care Review of Systems Equipment Currently Used at Home -- none Living Environment Transportation Available -- family or friend will provide (boyfriend able to come after 2pm) Goal: Interdisciplinary Rounds/Family Conf Outcome: Ongoing (Interventions Implemented as Appropriate) 06/26/191453 Interdisciplinary Rounds/Family Conf Participants nursing;physician;patient Problem: Nausea/Vomiting (Adult) Goal: Symptom Relief Patient will demonstrate the desired outcomes by discharge/transition of care. Outcome: Ongoing (Interventions Implemented as Appropriate) 06/26/19444 Nausea/Vomiting (Adult) Symptom Relief making progress toward outcome Goal: Adequate Hydration Patient will demonstrate the desired outcomes by discharge/transition of care. Outcome: Ongoing (Interventions Implemented as Appropriate) 06/26/19444 Nausea/Vomiting (Adult) Adequate Hydration making progress toward outcome Problem: Pain, Acute (Adult) Goal: Acceptable Pain Control/Comfort Level Patient will demonstrate the desired outcomes by discharge/transition of care. Outcome: Ongoing (Interventions Implemented as Appropriate) 06/26/19444 Pain, Acute (Adult) Acceptable Pain Control/Comfort Level making progress toward outcome * Plan of Care - Macy Gamez RN - 06/26/2019 3:02 PM EDT Problem: Skin Integrity Impairment, Risk/Actual (Adult) Goal: Skin Integrity/Wound Healing Patient will demonstrate the desired outcomes by discharge/transition of care. Outcome: Ongoing (Interventions Implemented as Appropriate) 06/26/19444 Skin Integrity Impairment, Risk/Actual (Adult) Skin Integrity/Wound Healing making progress toward outcome Problem: Patient Care Overview Goal: Plan of Care Review Outcome: Ongoing (Interventions Implemented as Appropriate) 06/26/1944406/26/19 1454 Coping/Psychosocial Plan Of Care Reviewed With -- patient Plan of Care Review Progress progress toward functional goals is gradual -- OUTCOME EVALUATION NOTE: OUTCOME SUMMARY: Patient alert and oriented; VSs stable on 2L NC. Pain well controlled with PRN oxycodone. Dressingsto abdomen with small amounts of dry serosanguinous drainage; otherwise, c/d/i. Patient up with standby assist and FWW; took several walks around the unit. Up to the bathroom, voiding small amounts with low- moderate PVRs. Patient resting between care. Will continue to monitor. PLAN MOVING FORWARD: Continue to monitor pain, encourage ambulation, titrate oxygen, discharge planning INDIVIDUALIZED FALL PREVENTION INTERVENTIONS: Patient-specific fall risk factors per assessment: [current deficits]: Narcotic medications, surgery, generalized weakness Assistance [level of assistance required for transfers and ambulation]: SBA w/ FWW Supervision [direct monitoring required during toileting and ADLs]: Arms' reach Surveillance [continuous indirect monitoring]: Masimo, purposeful rounding, bed alarm, bedside NKE,safety checks. Patient-specific fall prevention interventions for sensory deficits provided, if applicable: CPG GOAL OUTCOME EVALUATION: Goal: Individualization & Mutuality Outcome: Ongoing (Interventions Implemented as Appropriate) 06/26/19444 Individualization Patient Specific Goals Pain control, increase mobility Patient Specific Interventions Slow movements, clear liquids provided Goal: Fall Prevention-Safe Patient Handling Outcome: Ongoing (Interventions Implemented as Appropriate) 06/26/19 0900 06/26/19 1244 06/26/19 145 Daily Care Interventions Self-Care Promotion -- -- independence encouraged;BADL personal objects within reach;safe use of adaptive equipment encouraged Perera Fall Risk History of Falling 0 -- -- Secondary Diagnosis 15 -- -- Ambulatory Aids 15 -- -- Intravenous Therapy/Heparin/Saline Lock 20 -- -- Gait/Transferring 10 -- -- Mental Status 0 -- -- Score 60 -- -- OTHER Perera Fall Risk High -- -- Restraint Interventions Safety Promotion/Fall Prevention activity supervised;fall prevention program maintained;nonskid shoes/slippers when out of bed;safety round/check completed -- -- Positioning Body Position independent -- -- Activity Activity Type -- ambulated to bathroom -- Activity Assistance Provided -- assistance, stand-by -- Assistive Device Utilized -- front-wheel walker -- Goal: Infection Control Outcome: Ongoing (Interventions Implemented as Appropriate) 06/26/19 09 Safety Interventions Isolation Precautions standard precautions maintained Infection Prevention barrier precautions utilized;environmental surveillance performed;rest/sleep promoted Coping Strategies Supportive Measures active listening utilized;goal setting facilitated;positive reinforcement provided;verbalization of feelings encouraged Goal: Discharge Needs Assessment Outcome: Ongoing (Interventions Implemented as Appropriate) 06/26/1944406/26/191453 Discharge Needs Assessment Readmission Within The Last 30 Days -- no previous admission in last 30 days Current Discharge Risk -- dependent with mobility/activities of daily living Discharge Disposition still a patient -- Current Health Anticipated Changes Related to Illness -- none Activity/Self Care Review of Systems Equipment Currently Used at Home -- none Living Environment Transportation Available -- family or friend will provide (boyfriend able to come after 2pm) Goal: Interdisciplinary Rounds/Family Conf Outcome: Ongoing (Interventions Implemented as Appropriate) 06/26/191453 Interdisciplinary Rounds/Family Conf Participants nursing;physician;patient Problem: Nausea/Vomiting (Adult) Goal: Symptom Relief Patient will demonstrate the desired outcomes by discharge/transition of care. Outcome: Ongoing (Interventions Implemented as Appropriate) 06/26/19444 Nausea/Vomiting (Adult) Symptom Relief making progress toward outcome Goal: Adequate Hydration Patient will demonstrate the desired outcomes by discharge/transition of care. Outcome: Ongoing (Interventions Implemented as Appropriate) 06/26/19444 Nausea/Vomiting (Adult) Adequate Hydration making progress toward outcome Problem: Pain, Acute (Adult) Goal: Acceptable Pain Control/Comfort Level Patient will demonstrate the desired outcomes by discharge/transition of care. Outcome: Ongoing (Interventions Implemented as Appropriate) 06/26/19444 Pain, Acute (Adult) Acceptable Pain Control/Comfort Level making progress toward outcome * Initial Assessments - Vale Solis RN - 06/26/2019 2:20 PM EDT Office of Care Management Assessment Medical record reviewed. Plan of care and patient status discussed with direct care RN and/or Care Team in multidisciplinary rounds. Screen[age] y.o. female here for planned surgery - laparoscopic hiatal hernia repair and redo-Becca fundoplication . Present on Admission: ??? GERD (gastroesophageal reflux disease) Patient has not been admitted to a hospital within the last 30 days. Patient receiving hospital care under Same Day Overnight (OP) status. Admission order reviewed. Primary Insurance on file: MEDICARE Secondary Insurance on file: [place] Primary care provider on file: Talisha Treviño MD [phone] Advance Directive on file and Code Status: <no information>, Full Code HAS ADVANCED DIRECTIVE, REQUESTED COPY. MOTHER SPEAKS FOR DAUGHTER Patient???s Functional Status: bedrest, independent prior Living Situation:lives with velasquez, and mother lives down [address] in [facility] building. Mother and velasqueze will be with her [phone] [facility] [address] [facility] [address] Supports:Mother and velasqueze Assessment: Patient with no apparent RNCM/SW needs at this time. No housing, transportation, insurance, resources concerns identified at this time. Supports in place to achieve a safe post-hospital transition. No identified barriers to accessing necessary care and/or follow-up after discharge. Plan: Patient to d/c to home via private car tomorrow if pain controlled and medically ready. open source developer/Sales And Customer Relations Rep will continue to follow patient???s progress and remain available if situation changes for coordination of care, psychosocial support and/or discharge planning. Vale Solis RN Pager [phone] * Op Note - Mariaelena Godinez MD - 06/26/2019 1:43 PM EDT [facility] Operative Note Patient Name: Ruby Sprague : [id number] MR#: [id number] Case Date: 06/25/2019 Surgeon: Surgeon(s) and Role: * Mariaelena Godinez MD - Primary * Atif Mendez MD - Fellow Preoperative diagnosis: recurrent hiatal hernia Postoperative diagnosis: recurrent hiatal hernia Procedure(s) (LRB): LAPAROSCOPIC REVISION OF BECCA FUNDOPLASTY (WRVU *) (N/A) LAPAROSCOPIC TAKEDOWN PREVIOUS BECCA (WRVU *) (N/A) EGD, UPPER GI ENDOSCOPY (N/A) MODIFIER, HIATAL HERNIA (N/A) Indications for surgery: Patient is a 39-year-old female who had undergone a Becca fundoplication and 2017. She did well initially but had recurrent symptoms and following review of her options following appropriate evaluation she has elected to undergo repair of a recurrent hiatal hernia takedownof fundoplication and re-formation and upper GI endoscopy Findings at the time of surgery: Patient was noted to have a recurrent hiatal hernia she had initial fundoplication taken down the stomach returned to its anatomic configuration the stomach was completely reduced out of the mediastinum and upper GI endoscopy was performed which did not show any evidence of injury to the esophagus or stomach and also documented the location of the gastroesophagealjunction also confirming adequate intra-abdominal esophageal length. We close the diaphragm using pledgeted sutures and reformed a fundoplication over a 60 Burkinan bougie there were no complications. Details of the operation: Patient was brought to the operating placed in the supine position and following uneventful induction of general endotracheal anesthesia an orogastric tube was placed as well as Venodyne stockings and her legs were spread using straight leg extensions. Her abdomen was thenprepped and draped in the usual sterile fashion. A small incision was made in the left upper quadrant just below the costal margin and a Veress needle was inserted in the peritoneal cavity without complication and its location was confirmed using the saline drop test and a pneumoperitoneum to 15 mmHg pressure was obtained without difficulty. The first trocar was a 11 mm trocar placed 15 cm inferior to the xiphoid just left of midline through this a 45 degree laparoscope was inserted all remaining trochars were inserted under direct visualization. The Veress needle was visualized and no evidence of intra-abdominal injury was seen and the needle was removed. The next trocar was 11 mm trocar placed 10 cm from the xiphoid along left costal margin next trocar was a 5 mm trocar placed 20 cm long left costal margin next trocar was a 5 mm trocar placed midway between the left lateral trocar in the umbilicus. The next trocar was an 11 mm trocar placed 10 cm long of the right costal margin through this an expandable fan retractor was positioned below the left lower liver which is then retracted cephalad. Adhesions between the undersurface of the left lobe liver and the previous fundoplication were taken down using careful sharp and blunt dissection. The liver retractor was repositioned and held in place using a mechanical arm. Last trocar was a 5 mm trocar placed in the right upper quadrant. With the surgeons stand up in the patient's legs the upper abdomen was then visually inspectedshe was noted to have a recurrent hiatal hernia consistent with her preoperative imaging. Using atraumatic grasping forceps the hernia stomach was reduced back in the abdominal cavity the initial sutures from her fundoplication were visualized these were cut using sharp dissection. The left portionof the fundoplication fell away easily we did were able to develop a plane between the right portion of the fundoplication and the underlying esophagus and using combination of blunt sharp and harmonic dissection were able to dissect off the right half of the fundoplication there was some posteriorattachments of the fundoplication to the diaphragm again these were taken down using careful blunt and sharp dissection. We are able to develop a plane circumferentially around the esophagus and thiswas encircled with a Anders drain was was held in place using a Endoloop. Further periesophageal dissection was performed until we had the stomach completely mobilized out of the mediastinum and also returned to its original anatomic configuration. Both the anterior posterior vagus nerves were identified and left adherent to the wall of the esophagus. At this point an upper GI endoscopy was performed this was done to rule out any injury to the esophagus or stomach using the saline insufflationtest of which there was no injury. We also used it to confirm the true anatomic location of the isabella roesophageal junction in order to confirm our laparoscopic impression of where this was located. Were able to document at the gastroesophageal junction and also the document that she had adequate intra-abdominal length of esophagus. At this point the gastroscope was used to decompress the stomach and was removed. We then closed the diaphragmatic hiatus using interrupted sutures of 0 Nurolon tied over David pledgets following closure of the diaphragm the fundus was then wrapped from the left right direction posterior to the esophagus a 60 Burkinan bougie was passed by anesthesia down the esophagus into the stomach without difficulty. A fundoplication was then performed by 3 interrupted sutures of 2-0 Nurolon the initial bite included fundus and fundus the 2 subsequent sutures included fundus esophagus and fundus with care taken avoid injury to the anterior vagus nerve. Following completion of the fundoplication the bougie was removed and 2 additional posterior gastric sutures were placed between the fundus and the diaphragm. At this point the abdomen is irrigated excellent hemostasis was assured the Anders drain was cut and removed the liver retractor was released and removed and all trocar sites were then removed under direct visualization to assure hemostasis at these sites. All trocar sites were closed at the skin level using a running subcuticular closure of 4-0 Vicryl followed by Steri-Strips followed by Band-Aids overall she tolerated procedure well and was taken to recovery postop in stable condition Attestation: Case Date: 06/25/2019 I performed this procedure without the involvement of a resident. MARIAELENA GODINEZ MD 06/26/2019 * Plan of Care - Adelina Everett RN - 06/26/2019 5:01 AM EDT Problem: Skin Integrity Impairment, Risk/Actual (Adult) Intervention: Promote/Optimize Nutrition 06/26/19 4299 Nutrition Interventions Oral Nutrition Promotion physical activity promoted;safe use of adaptive equipment encouraged Intervention: Prevent/Manage Excess Moisture 06/25/19192706/26/19 0110 Hygiene Care Perineal Care -- absorbent pad changed;perianal area cleansed;perineal area cleansed Bathing/Skin Care -- bath, partial;dressed/undressed;linen changed Skin Interventions Skin Protection adhesive use limited;incontinence pads utilized;tubing/devices free from skin contact -- Intervention: Prevent/Minimize Sheer/Friction Injuries 06/25/191927 Skin Interventions Pressure Reduction Devices pressure-redistributing mattress utilized Pressure Reduction Techniques frequent weight shift encouraged Positioning Positioning/Transfer Devices pillows;in use Goal: Identify Related Risk Factors and Signs and Symptoms Related risk factors and signs and symptoms are identified upon initiation of Human Response Clinical Practice Guideline (CPG) Outcome: Outcome (s) achieved Date Met: 06/26/19 06/26/19444 Skin Integrity Impairment, Risk/Actual Skin Integrity Impairment, Risk/Actual: Related Risk Factors surgery/procedure Goal: Skin Integrity/Wound Healing Patient will demonstrate the desired outcomes by discharge/transition of care. Outcome: Ongoing (Interventions Implemented as Appropriate) 06/26/19444 Skin Integrity Impairment, Risk/Actual (Adult) Skin Integrity/Wound Healing making progress toward outcome Problem: Patient Care Overview Goal: Plan of Care Review Outcome: Ongoing (Interventions Implemented as Appropriate) 06/26/19444 Coping/Psychosocial Plan Of Care Reviewed With patient Plan of Care Review Progress progress toward functional goals is gradual OUTCOME EVALUATION NOTE: OUTCOME SUMMARY: Pt A/Ox4, but lethargic at beginning of shift, improving with shift progression. VSS on 3L NC. Steri strips and bandaids in place to lap sites x 6, c/d/i except for one site with small amount of serosanguinous drainage. Patient's pain level high throughout shift -11/23, but she states that it is tolerable and decreasing. Pt voiding in bedside commode, PVRs 100's-200's, but trending down. Pt had dry heaving/emesis episodes x 2 immediately after stand-pivoting back to bed. Pt denies shortness ofbreath or new numbness or tingling. Pt endorses chest pain r/t surgery, team aware. Pt very motivated, wanted to ambulate in hallway, made it 40 ft outside of room w/ 1 assist and felt lightheaded, wheeled back to bed via chair, VSS during episode. Pt pleasant and cooperative throughout shift. Willcontinue to monitor. PLAN MOVING FORWARD: Pain control Diet tolerance w/o nausea Mobilize D/c planning INDIVIDUALIZED FALL PREVENTION INTERVENTIONS: Pt is currently a high risk to fall. Patient educatedon bed/chair alarm, demonstrates proper use of call wilkerson and verbalizes understanding of fall preventions implemented. Patient-specific fall risk factors per assessment: [current deficits]: Pain, nausea, surgery, Pain,IV Sites, Hospital environment, medications. Assistance [level of assistance required for transfers and ambulation]: hands on, 1 assist w/ FWW Supervision [direct monitoring required during toileting and ADLs]: Eyes on, Moderate assistance with ADLs Surveillance [continuous indirect monitoring]: Masimo, bed alarm Patient-specific fall prevention interventions for sensory deficits provided, if applicable: [X] N/A Goal: Individualization & Mutuality Outcome: Ongoing (Interventions Implemented as Appropriate) 06/26/19444 Individualization Patient Specific Goals Pain control, increase mobility Patient Specific Interventions Slow movements, clear liquids provided Goal: Fall Prevention-Safe Patient Handling Outcome: Ongoing (Interventions Implemented as Appropriate) 06/25/191927 Perera Fall Risk History of Falling 0 Secondary Diagnosis 15 Ambulatory Aids 15 Intravenous Therapy/Heparin/Saline Lock 20 Gait/Transferring 10 Mental Status 0 Score 60 OTHER Perera Fall Risk High Restraint Interventions Safety Promotion/Fall Prevention activity supervised;fall prevention program maintained;nonskid shoes/slippers when out of bed;safety round/check completed Positioning Body Position supine, head elevated Activity Activity Type activity adjusted per tolerance Activity Assistance Provided assistance, 1 person;assistance, 2 people Assistive Device Utilized front-wheel walker Goal: Infection Control Outcome: Ongoing (Interventions Implemented as Appropriate) 06/25/191927 Safety Interventions Isolation Precautions standard precautions maintained Infection Prevention environmental surveillance performed;personal protective equipment utilized;rest/sleep promoted Coping Strategies Supportive Measures active listening utilized;counseling provided;decision- making supported;goal setting facilitated;positive reinforcement provided;problem solving facilitated;relaxation techniques promoted;self-care encouraged;verbalization of feelings encouraged Goal: Discharge Needs Assessment Outcome: Ongoing (Interventions Implemented as Appropriate) 06/26/19444 Discharge Needs Assessment Discharge Disposition still a patient Goal: Interdisciplinary Rounds/Family Conf Outcome: Ongoing (Interventions Implemented as Appropriate) 06/26/19444 Interdisciplinary Rounds/Family Conf Participants nursing;patient Problem: Nausea/Vomiting (Adult) Intervention: Minimize Nausea Triggers/Manage Symptoms 06/26/194906/26/19444 Coping/Psychosocial Interventions Environmental Support -- calm environment promoted;rest periods encouraged Monitor/Manage Hypovolemia Nausea/Vomiting Interventions cool cloth applied;nausea triggers minimized;slow deep breathing encouraged;other (see comments) (compazine) -- Intervention: Position to Prevent Aspiration 06/25/191927 Positioning Head of Bed (HOB) HOB at 20-30 degrees Body Position supine, head elevated Intervention: Promote/Maintain Hydration 06/26/19444 Nutrition Interventions Fluid/Electrolyte Management fluids provided Goal: Identify Related Risk Factors and Signs and Symptoms Related risk factors and signs and symptoms are identified upon initiation of Human Response Clinical Practice Guideline (CPG) Outcome: Outcome (s) achieved Date Met: 06/26/19 06/26/19444 Nausea/Vomiting Nausea/Vomiting: Related Risk Factors female gender;gastric irritation;recent surgery with general anesthesia Nausea/Vomiting: Signs and Symptoms abdominal discomfort/pain;report of queasy sensation;retching/gagging;weakness Goal: Symptom Relief Patient will demonstrate the desired outcomes by discharge/transition of care. Outcome: Ongoing (Interventions Implemented as Appropriate) 06/26/19444 Nausea/Vomiting (Adult) Symptom Relief making progress toward outcome Goal: Adequate Hydration Patient will demonstrate the desired outcomes by discharge/transition of care. Outcome: Ongoing (Interventions Implemented as Appropriate) 06/26/19444 Nausea/Vomiting (Adult) Adequate Hydration making progress toward outcome Problem: Pain, Acute (Adult) Intervention: Monitor/Manage Analgesia 06/25/19192706/26/19444 Manage Acute Burn Pain Bowel Intervention -- adequate fluid intake promoted;ambulation promoted;privacy promoted Pain Management Interventions pain management plan reviewed with patient/caregiver;relaxation techniques promoted;pillow support provided -- Safety Interventions Medication Review/Management medications reviewed;high risk medications identified -- Intervention: Mutually Develop/Implement Acute Pain Management Plan 06/25/19192706/26/19444 Cognitive Interventions Sensory Stimulation Regulation -- care clustered;lighting decreased;quiet environment promoted Manage Acute Burn Pain Pain Management Interventions pain management plan reviewed with patient/caregiver;relaxation techniques promoted;pillow support provided -- Intervention: Support/Optimize Psychosocial Response to Acute Pain 06/25/191927 Coping Strategies Supportive Measures active listening utilized;counseling provided;decision- making supported;goal setting facilitated;positive reinforcement provided;problem solving facilitated;relaxation techniques promoted;self-care encouraged;verbalization of feelings encouraged Diversional Activities smartphone Family/Support System Care self-care encouraged Trust Relationship/Rapport care explained;choices provided;emotional support provided;empathic listening provided;questions answered;questions encouraged;reassurance provided;thoughts/feelings acknowledged Goal: Identify Related Risk Factors and Signs and Symptoms Related risk factors and signs and symptoms are identified upon initiation of Human Response Clinical Practice Guideline (CPG) Outcome: Outcome (s) achieved Date Met: 06/26/19 06/26/19444 Pain, Acute Related Risk Factors (Acute Pain) procedure/treatment;surgery;persistent pain;disease process Signs and Symptoms (Acute Pain) guarding/abnormal posturing/positioning;verbalization of pain descriptors Goal: Acceptable Pain Control/Comfort Level Patient will demonstrate the desired outcomes by discharge/transition of care. Outcome: Ongoing (Interventions Implemented as Appropriate) 06/26/19444 Pain, Acute (Adult) Acceptable Pain Control/Comfort Level making progress toward outcome * Brief Op Note - Mariaelena Godinez MD - 06/25/2019 1:32 PM EDT Brief Operative Note Patient Name: Ruby Sprague : [id number] MR#: [id number] Case Date: 06/25/2019 Surgeon: Surgeon(s) and Role: * Mariaelena Gdoinez MD - Primary * Atif Mendez MD - Fellow Preoperative diagnosis: recurrent hiatal hernia Postoperative diagnosis: recurrent hiatal hernia Procedure(s) (LRB): LAPAROSCOPIC REVISION OF BECCA FUNDOPLASTY (WRVU *) (N/A) LAPAROSCOPIC TAKEDOWN PREVIOUS BECCA (WRVU *) (N/A) EGD, UPPER GI ENDOSCOPY (N/A) MODIFIER, HIATAL HERNIA (N/A) Anesthesia: General Findings: recurrent hiatal hernia Complications: none Intake: Intraprocedure Crystalloid Total lactated ringers infusion Volume (mL) 800 mL Transfusion No data found in the last 1 encounters. Output: Estimated Blood Loss: 9cc Urine Output:: (no urine output recorded) Other Output: (no other output recorded) Drains: none Specimens removed during surgery: none Disposition: PACU Condition: Stable Attestation: Case Date: 06/25/2019 No resident was involved. (Please see the Surgical Encounter Summary for any Implant and Specimen details pertinent to this patient.) documented in this encounter Plan of Treatment Not on file documented as of this encounter Procedures Procedure Name Priority Date/Time Associated Diagnosis Comments HEMOGRAM Routine 06/28/2019 7:21 AM EDT DIFFERENTIAL, AUTOMATED Routine 06/28/2019 7:21 AM EDT HC CBC,PLT & AUTO DIFF Routine 06/28/2019 7:21 AM EDT HC PHOSPHORUS, SERUM Routine 06/28/2019 7:21 AM EDT HC MAGNESIUM, SERUM Routine 06/28/2019 7 :21 AM EDT BASIC METABOLIC PANEL Routine 06/28/2019 7:[address] CHEST PULMONARY EMBOLISM W CONTRAST STAT 06/27/2019 5:22 PM EDT HEMOGRAM Timed 06/27/2019 8:11 AM EDT DIFFERENTIAL, AUTOMATED Timed 06/27/2019 8:11 AM EDT HC VENIPUNCTURE Timed 06/27/2019 8:11 AM EDT HC TROPONIN T STAT 06/27/2019 8:11 AM EDT PHOSPHORUS STAT 06/27/2019 8:11 AM EDT MAGNESIUM STAT 06/27/2019 8:11 AM EDT BASIC METABOLIC PANEL Timed 06/27/2019 8:11 AM EDT EKG 12-LEAD Routine 06/27/2019 7:21 AM EDT Tachycardia SCAN, PERIPHERAL BLOOD Timed 06/26/2019 11:36 AM EDT HEMOGRAM Timed 06/26/2019 11:36 AM EDT DIFFERENTIAL, AUTOMATED Timed 06/26/2019 11:36 AM EDT HC CBC,PLT & AUTO DIFF Timed 06/26/2019 11:36 AM EDT SCAN, PERIPHERAL BLOOD Routine 06/26/2019 3:39 AM EDT HEMOGRAM Routine 06/26/2019 3:39 AM EDT DIFFERENTIAL, AUTOMATED Routine 06/26/2019 3:39 AM EDT HC CBC,PLT & AUTO DIFF Routine 06/26/2019 3:39 AM EDT BASIC METABOLIC PANEL Routine 06/26/2019 3:39 AM EDT HC PHOSPHORUS, SERUM Routine 06/25/2019 2:52 PM EDT HC MAGNESIUM, SERUM Routine 06/25/2019 2 :52 PM EDT BASIC METABOLIC PANEL Routine 06/25/2019 2:52 PM EDT MODIFIER, HIATAL HERNIA Yes 06/25/2019 11:14 AM EDT recurrent hiatal hernia Upper GI Endoscopy, Diagnostic ([id number]) Yes 06/25/2019 11:14 AM EDT recurrent hiatal hernia Unlisted Laparoscopic Procedure Esophagus ([id number]) Yes 06/25/2019 11:14 AM EDT recurrent hiatal hernia Unlisted Laparoscopic Procedure Esophagus ([id number]) Yes 06/25/2019 11:14 AM EDT recurrent hiatal hernia ABORH RECHECK STATUS STAT 06/25/2019 9:59 AM EDT HC ABO-MICROTITER STAT 06/25/2019 9:5 9 AM EDT ABO/RH TYPING STAT 06/25/2019 9:59 AM EDT ANTIBODY SCREEN STAT 06/25/2019 9:59 AM EDT documented in this encounter Results * (ABNORMAL) Differential, Automated (06/28/2019 7:21 AM EDT) Pathologist [facility] Neutrophil % 62.7 % [facility] Neutrophil Absolute 5.66 1.70 - 6.10 x10(3)/ L [facility] Lymph % 23.1 % [facility] Lymphocytes Abs 2.1 0.9 - 3.2 x10(3)/ L [facility] Monocyte % 11.2 % [facility] Monocyte Abs 1.0(H) 0.3 - 0.9 x10(3)/[facility] Eos % 2.1 % [facility] Eosinophils Abs 0.2 0.0 - 0.4 x10(3)/[facility] Basophil % 0.7 % [facility] Baso Absolute 0.1 0.0 - 0.1 x10(3)/ L [facility] Immature Gran % 0.20 % [facility] Comment: Immature granulocytes(IG's)percentage and absolute count will include metamyelocytes, myelocytes, and promyelocytes. Blood smears from CBCs yielding IG's will be scanned manually for concordance. If this scan disagrees with the automated IG or if promyelocytes are noted, a manual differential will be performed. Immature Gran Absolute 0.02 0.00 - 0.04 x10(3)/ L [facility] Blood specimen (specimen) 06/28/2019 7:21 AM EDT 06/28/2019 7:26 AM EDT Narrative Resulting Agency Comment Spec In Lab Margaret VARNER HEMATOLOGY ORDERABLE S [facility] [place] [address] * (ABNORMAL) Hemogram (06/28/2019 7:21 AM EDT) White Blood Cell 9.0 4.0 - 9.5 x10(3)/[facility] Red Blood Cell 4.38 4.00 - 5.21 x10(6)/[facility] Hemoglobin 9.0(L) 11.7 - 15.5 gm/dL [facility] Hematocrit 29.7(L) 35.7 - 45.8 % [facility] Mean Cell Volume 67.8(L) 82.6 - 94.4 fL [facility] Mean Cell Hemoglobin 20.5(L) 27.1 - 32.0 pg [facility] Mean Cell Hemoglobin Concentration 30.3(L) 31.7 - 35.0 gm/dL [facility] Platelet 384(H) 145 - 357 x10(3)/[facility] RDW Standard Deviation 48.1(H) 37.0 - 46.0 [facility] RDW coefficient of variation 19.8(H) 11.5 - 14.1 % [facility] Mean Platelet Volume 9.4 7.6 - 12.9 fL [facility] NRBC% auto 0.0 % [facility] NRBC Absolute 0.000 0.000 - 0.000 x10(3)/[facility] Blood specimen (specimen) 06/28/2019 7:21 AM EDT 06/28/2019 7:26 AM EDT Narrative Resulting Agency Comment Spec In Lab Margaret VARNER HEMATOLOGY ORDERABLE S [facility] [place] [address] * Phosphorus (06/28/2019 7:21 AM EDT) Pathologist [facility] Phosphorus 4.0 2.5 - 4.5 mg/dL [facility] Comment:result rechecked-sabrina Blood specimen (specimen) 06/28/2019 7:21 AM EDT 06/28/2019 7:26 AM EDT Narrative Resulting Agency Comment Spec In Lab Mariaelena Godinez MD CHEMISTRY ORDERABLE S Performing Organization Address City/[facility]/ZIP Co de Phone Number [facility] [place] [address] * Magnesium (06/28/2019 7:21 AM EDT) Magnesium 0.86 0.69 - 1.07 mmol/L [facility] Blood specimen (specimen) 06/28/2019 7:21 AM EDT 06/28/2019 7:26 AM EDT Narrative Resulting Agency Comment Spec In Lab Mariaelena Godinez MD CHEMISTRY ORDERABLE S Performing Organization Address [facility] de Phone Number [facility] [place] [address] * (ABNORMAL) Basic Metabolic Panel (non-fasting) (06/28/2019 7:21 AM EDT) Glucose 99 65 - 199 mg/dL [facility] Comment:Diabetes: >=200 mg/d L plus symptoms Blood Urea Nitrogen 7(L) 8 - 18 mg/dL [facility] Creatinine 0.55(L) 0.70 - 1.20 mg/dL [facility] Sodium 138 135 - 145 mmol/L [facility] Potassium 2.9(Criti navneet) 3.5 - 5.0 mmol/L [facility] Comment: Called by: sabrina, Read back by: Ruby Morton, Date/Time:06/28/19 08:12. Please note: ??Patients with WBC >100,000 may have falsely elevated Potassium levels. ??For accurate Potassium quantification in these patients send serum separator tube (gold top) for subsequent determinations. ??Contact the Clinical Chemistry Laboratory if there are any questions. Chloride 99 98 - 107 mmol/L [facility] Carbon Dioxide 26 22 - 31 mmol/L [facility] Anion Gap 13 5 - 15 mmol/L [facility] Calcium 9.1 8.5 - 10.5 mg/dL [facility] Est Glomerular Filtration Rate 116 >=60 mL/min/1. 73 m?? [facility] Comment: The eGFR was calculated using the CKD-EPI equation. As with all creatinine based estimates of kidney function, eGFR values calculated with the CKD-EPI equation are not accurate in patients with acute kidney failure, extremes of body mass or the acutely ill. http://[employer]/[facility] eGFR 135 >=60 mL/min/1. 73 m?? [facility] Comment: The eGFR was calculated using the CKD-EPI equation. As with all creatinine based estimates of kidney function, eGFR values calculated with the CKD-EPI equation are not accurate in patients with acute kidney failure, extremes of body mass or the acutely ill. http://[employer]/[facility] Blood specimen (specimen) 06/28/2019 7:21 AM EDT 06/28/2019 7:26 AM EDT Narrative Resulting Agency Comment Spec In Lab Mariaelena Godinez MD CHEMISTRY ORDERABLE S [facility] [place] [address] * CT Angiogram Chest for Pulmonary Embolus w Contrast (06/27/2019 5:22 PM EDT) Anatomical Region Laterality Modality Chest Computed Tomogra phy Impressions 06/27/2019 5:43 PM EDT 1. ??No pulmonary embolism identified. 2. ??Bilateral small pleural effusions with associated compressive atelectasis versis pneumonia.. 3. ??Expected postsurgical changes at the distal esophagus/proximal stomach. I have personally reviewed the image(s) and the resident's interpretation and agree with the findings, Samuel Ren at 06/27/2019 5:43 PM Thank you for letting us participate in the care of this patient. For questions regarding this report, please contact the number below. ? Narrative 06/27/2019 5:43 PM EDT EXAMINATION: CTA CHEST PULMONARY EMBOLISM W CONTRAST CLINICAL HISTORY: Dyspnea on exertion 39yo 2 days s/p Becca redo with continued oxygen requirement and EKG changes. Please eval. TECHNIQUE: 3mm thick axial contiguous sections were obtained through the chest via helical acquisition after the intravenous administration of contrast, Administered 47.0 ml of OMNIPAQUE 350.00 mg/ml. Thin-section reconstructions as well as coronal and sagittal MIP reformatted images were generated to aid in evaluation. COMPARISON: Chest radiograph 10/06/2016 FINDINGS: Pulmonary arteries: No pulmonary arterial filling defects. Other cardiovascular structures: No significant findings. Pulmonary parenchyma: Small bilateral pleural effusions with associated compressive atelectasis. Airways: The large airways are patent and without debris. Pleura: No calcifications. Small bilateral effusions as above. Lymph nodes: No mediastinal or hilar adenopathy. Other mediastinal structures: Postsurgical changes in the distal esophagus/gastric cardia with surgical clips and paraesophageal edema which is likely postsurgical in nature. Upper abdomen: Status post fundoplication with surgical clips present within the proximal stomach. No other significant findings. Skeletal structures: No significant findings. Procedure Note Samuel Ren MD - 06/27/2019 EXAMINATION: CTA CHEST PULMONARY EMBOLISM W CONTRAST CLINICAL HISTORY: Dyspnea on exertion 39yo 2 days s/p Becca redo with continued oxygen requirement and EKGchanges. Please eval. TECHNIQUE: 3mm thick axial contiguous sections were obtained through thechest via helical acquisition after the intravenous administration ofcontrast, Administered 47.0 ml of OMNIPAQUE 350.00 mg/ml. Thin-sectionreconstructions as well as coronal and sagittal MIP reformatted images were generated to aidin evaluation. COMPARISON: Chest radiograph 10/06/2016 FINDINGS: Pulmonary arteries: No pulmonary arterial filling defects. Other cardiovascular structures: No significant findings. Pulmonary parenchyma: Small bilateral pleural effusions with associated compressive atelectasis. Airways: The large airways are patent and without debris. Pleura: No calcifications. Small bilateral effusions as above. Lymph nodes: No mediastinal or hilar adenopathy. Other mediastinal structures: Postsurgical changes in the distal esophagus/gastric cardia with surgical clips and paraesophageal edemawhich is likely postsurgical in nature. Upper abdomen: Status post fundoplication with surgical clips presentwithin the proximal stomach. No other significant findings. Skeletal structures: No significant findings. IMPRESSION 1. No pulmonary embolism identified. 2. Bilateral small pleural effusions with associated compressiveatelectasis versis pneumonia.. 3. Expected postsurgical changes at the distal esophagus/proximalstomach. I have personally reviewed the image(s) and the resident's interpretationand agree with the findings, Samuel Ren at 06/27/2019 5:43 PM Thank you for letting us participate in the care of this patient. Forquestions regarding this report, please contact the number below. Mariaelena Godinez MD IMG CT ORDERABLES * (ABNORMAL) Phosphorus (06/27/2019 8:11 AM EDT) Pathologist [facility] Phosphorus 2.2(L) 2.5 - 4.5 mg/dL [facility] Blood specimen (specimen) Venous Draw / Unknown 06/27/2019 8:11 AM EDT 06/27/2019 8:35 AM EDT Narrative Resulting Agency Comment Spec In Lab Atif Mendez MD CHEMISTRY ORDERABLES [facility] [place] [place] [address] * Magnesium (06/27/2019 8:11 AM EDT) Magnesium 0.74 0.69 - 1.07 mmol/L [facility] Blood specimen (specimen) Venous Draw / Unknown 06/27/2019 8:11 AM EDT 06/27/2019 8:35 AM EDT Narrative Resulting Agency Comment Spec In Lab Atif Mendez MD CHEMISTRY ORDERABLES Performing Organization Address City/[facility]/ZIP Co de Phone Number [facility] [place] [place] [address] * Troponin (06/27/2019 8:11 AM EDT) Pathologist [facility] Troponin-T <0.01 0.00 - 0.00 ng/mL [facility] Comment: The 99th percentile for Troponin T is less than 0.01 ng/mL, any detectable cTnT concentration using this assay should be considered elevated. According to the third universal definition of myocardial infarction the following criteria with a clinical presentation consistent with acute myocardial ischemia meets the diagnosis for a myocardial infarction (CT). Detection of a rise and/or fall of cTnT, with at least one value greater than the 99th percentile (> or = 0.01) and with at least one of the following ?? Symptoms of ischemia ?? New or presumed new significant EG-mbgbuyb-Q wave (ST-T) changes or new left bundle branch block (LBBB) ?? Development of pathologic Q waves in the ECG ?? Imaging evidence of new loss of viable myocardium or new regional wall motion abnormality ?? Identification of an intracoronary thrombus by angiography or autopsy Samples for cTnT testing should be obtained serially upon first assessment and again 3 to 6 hours later. If the clinical suspicion is high and previous samples have been negative an additional sample may be indicated. Reference: Third Cardwell Definition of Myocardial Infarction. Journal of the [employer] [place] [employer] 2012;60:1581-98 Blood specimen (specimen) 06/27/2019 8:11 AM EDT 06/27/2019 8:35 AM EDT Narrative Resulting Agency Comment Spec In Lab Mariaelena Godinez MD CHEMISTRY ORDERABLE S Performing Organization Address [facility]/ZIP Co de Phone Number [facility] [place] [place] [address] * (ABNORMAL) Differential, Automated (06/27/2019 8:11 AM EDT) Neutrophil % 68.3 % [facility] Neutrophil Absolute 7.46(H) 1.70 - 6.10 x10(3)/[facility] Lymph % 20.0 % [facility] Lymphocytes Abs 2.2 0.9 - 3.2 x10(3)/[facility] Monocyte % 10.1 % [facility] Monocyte Abs 1.1(H) 0.3 - 0.9 x10(3)/[facility] Eos % 0.6 % [facility] Eosinophils Abs 0.1 0.0 - 0.4 x10(3)/[facility] Basophil % 0.5 % [facility] Baso Absolute 0.0 0.0 - 0.1 x10(3)/[facility] Immature Gran % 0.50 % [facility] Comment: Immature granulocytes(IG's)percentage and absolute count will include metamyelocytes, myelocytes, and promyelocytes. Blood smears from CBCs yielding IG's will be scanned manually for concordance. If this scan disagrees with the automated IG or if promyelocytes are noted, a manual differential will be performed. Immature Gran Absolute 0.05(H) 0.00 - 0.04 x10(3)/[facility] Blood specimen (specimen) 06/27/2019 8:11 AM EDT 06/27/2019 8:35 AM EDT Narrative Resulting Agency Comment Spec In Lab Margaret VARNER HEMATOLOGY ORDERABLE S [facility] [place] [address] * (ABNORMAL) Hemogram (06/27/2019 8:11 AM EDT) White Blood Cell 10.9(H) 4.0 - 9.5 x10(3)/mc L [facility] Red Blood Cell 4.13 4.00 - 5.21 x10(6)/mc L [facility] Hemoglobin 8.3(L) 11.7 - 15.5 gm/dL [facility] Hematocrit 28.3(L) 35.7 - 45.8 % [facility] Mean Cell Volume 68.5(L) 82.6 - 94.4 fL [facility] Mean Cell Hemoglobin 20.1(L) 27.1 - 32.0 pg [facility] Mean Cell Hemoglobin Concentration 29.3(L) 31.7 - 35.0 gm/dL [facility] Platelet 415(H) 145 - 357 x10(3)/[facility] RDW Standard Deviation 48.4(H) 37.0 - 46.0 [facility] RDW coefficient of variation 20.0(H) 11.5 - 14.1 % [facility] Mean Platelet Volume 10.3 7.6 - 12.9 [facility] NRBC% auto 0.0 % [facility] NRBC Absolute 0.000 0.000 - 0.000 x10(3)/[facility] Blood specimen (specimen) 06/27/2019 8:11 AM EDT 06/27/2019 8:35 AM EDT Narrative Resulting Agency Comment Spec In Lab Margaret VARNER HEMATOLOGY ORDERABLE S [facility] [place] [address] * (ABNORMAL) Basic Metabolic Panel (non-fasting) (06/27/2019 8:11 AM EDT) Glucose 111 65 - 199 mg/dL [facility] Comment:Diabetes: >=200 mg/d L plus symptoms Blood Urea Nitrogen 5(L) 8 - 18 mg/dL [facility] Creatinine 0.65(L) 0.70 - 1.20 mg/dL [facility] Sodium 140 135 - 145 mmol/L [facility] Potassium 2.7(Criti navneet) 3.5 - 5.0 mmol/L [facility] Comment: Results rechecked Called by: tamy, Read back by: Laurel Ayoub, Date/Time:06/27/19 09:21. Please note: ??Patients with WBC >100,000 may have falsely elevated Potassium levels. ??For accurate Potassium quantification in these patients send serum separator tube (gold top) for subsequent determinations. ??Contact the Clinical Chemistry Laboratory if there are any questions. Chloride 104 98 - 107 mmol/L [facility] Carbon Dioxide 25 22 - 31 mmol/L [facility] Anion Gap 11 5 - 15 mmol/L [facility] Calcium 8.8 8.5 - 10.5 mg/dL [facility] Est Glomerular Filtration Rate 110 >=60 mL/min/1. 73 m?? [facility] Comment: The eGFR was calculated using the CKD-EPI equation. As with all creatinine based estimates of kidney function, eGFR values calculated with the CKD-EPI equation are not accurate in patients with acute kidney failure, extremes of body mass or the acutely ill. http://[employer]/[facility] eGFR 128 >=60 mL/min/1. 73 m?? [facility] Comment: The eGFR was calculated using the CKD-EPI equation. As with all creatinine based estimates of kidney function, eGFR values calculated with the CKD-EPI equation are not accurate in patients with acute kidney failure, extremes of body mass or the acutely ill. http://[employer]/[facility] Blood specimen (specimen) 06/27/2019 8:11 AM EDT 06/27/2019 8:35 AM EDT Narrative Resulting Agency Comment Spec In Lab Mariaelena Godinez MD CHEMISTRY ORDERABLE S [facility] [place] [address] * EKG 12 Lead (06/27/2019 7:21 AM EDT) [facility] Ventricular rate 109 BPM MUSE SYSTEM Atrial Rate 109 BPM MUSE SYSTEM P-R Interval 162 ms MUSE SYSTEM QRS Duration 80 ms MUSE SYSTEM Q-T Interval 328 ms MUSE SYSTEM QTC Calculated (Bezet) 441 ms MUSE SYSTEM Calculated P [place] 49 degrees MUSE SYSTEM Calculated R [place] 17 degrees MUSE SYSTEM Calculated T [place] -64 degrees MUSE SYSTEM INTERPRETATION Sinus tachycardia ST & T wave abnormality, consider anterolateral ischemia Abnormal ECG When compared with ECG of 06-OCT-2016 09:47, ST & T wave inversion now evident in Anterolateral leads I personally reviewed the tracing and edited the fellows interpretation Confirmed by fellow SenserJose Carlos ([id number]) on 06/27/2019 1:44:51 PM Confirmed by Kiera Woodard ([id number]) on 06/27/2019 3:12:50 PM MUSE SYSTEM 06/27/2019 7:21 AM EDT 06/27/2019 3:12 PM EDT Atif Mendez MD ECG ORDERABLES MUSE SYSTEM * Scan, Peripheral Blood (06/26/2019 11:36 AM EDT) [facility] Plat estimate Increased [facility] RBC Morphology Abnormal [facility] Microcyte 1-5 /HPF [facility] Hypochromia Slight [facility] Ovalocytes 1-5 /HPF [facility] Blood specimen (specimen) 06/26/2019 11:36 AM EDT 06/26/2019 11:50 AM EDT Narrative Resulting Agency Comment Spec In Lab Margaret VARNER HEMATOLOGY ORDERABLE S [facility] [place] [address] * (ABNORMAL) Differential, Automated (06/26/2019 11:36 AM EDT) [facility] Neutrophil % 77.7 % [facility] Neutrophil Absolute 11.02(H) 1.70 - 6.10 x10(3)/[facility] Lymph % 11.0 % [facility] Lymphocytes Abs 1.6 0.9 - 3.2 x10(3)/[facility] Monocyte % 10.6 % [facility] Monocyte Abs 1.5(H) 0.3 - 0.9 x10(3)/[facility] Eos % 0.1 % [facility] Eosinophils Abs 0.0 0.0 - 0.4 x10(3)/[facility] Basophil % 0.1 % [facility] Baso Absolute 0.0 0.0 - 0.1 x10(3)/[facility] Immature Gran % 0.50 % [facility] [facility] Comment: Immature granulocytes(IG's)percentage and absolute count will include metamyelocytes, myelocytes, and promyelocytes. Blood smears from CBCs yielding IG's will be scanned manually for concordance. If this scan disagrees with the automated IG or if promyelocytes are noted, a manual differential will be performed. Immature Gran Absolute 0.07(H) 0.00 - 0.04 x10(3)/[facility] LABORATORY Blood specimen (specimen) 06/26/2019 11:36 AM EDT 06/26/2019 11:50 AM EDT Narrative Resulting Agency Comment Spec In Lab Margaret VARNER HEMATOLOGY ORDERABLE S [facility] [place] [address] * (ABNORMAL) Hemogram (06/26/2019 11:36 AM EDT) [facility] White Blood Cell 14.2(H) 4.0 - 9.5 x10(3)/[facility] LABORATORY Red Blood Cell 4.14 4.00 - 5.21 x10(6)/ L [facility] Hemoglobin 8.3(L) 11.7 - 15.5 gm/dL [facility] Hematocrit 28.2(L) 35.7 - 45.8 % [facility] Mean Cell Volume 68.1(L) 82.6 - 94.4 fL [facility] Mean Cell Hemoglobin 20.0(L) 27.1 - 32.0 pg [facility] Mean Cell Hemoglobin Concentration 29.4(L) 31.7 - 35.0 gm/dL [facility] Platelet 417(H) 145 - 357 x10(3)/mc L [facility] RDW Standard Deviation 48.2(H) 37.0 - 46.0 fL [facility] RDW coefficient of variation 20.0(H) 11.5 - 14.1 % [facility] Mean Platelet Volume 9.7 7.6 - 12.9 fL [facility] NRBC% auto 0.0 % [facility] NRBC Absolute 0.000 0.000 - 0.000 x10(3)/mc L [facility] Blood specimen (specimen) 06/26/2019 11:36 AM EDT 06/26/2019 11:50 AM EDT Narrative Resulting Agency Comment Spec In Lab Margaret VARNER HEMATOLOGY ORDERABLE S [facility] [place] [address] * Scan, Peripheral Blood (06/26/2019 3:39 AM EDT) Plat estimate Increased [facility] RBC Morphology Abnormal [facility] Microcyte 1-5 /HPF [facility] Hypochromia Slight [facility] Ovalocytes 6-10 /HPF [facility] Morenci Cells 1-5 /HPF [facility] Blood specimen (specimen) 06/26/2019 3:39 AM EDT 06/26/2019 4:38 AM EDT Narrative Resulting Agency Comment Spec In Lab Atif Mendez MD HEMATOLOGY ORDERABLE S [facility] [place] [place] [address] * (ABNORMAL) Differential, Automated (06/26/2019 3:39 AM EDT) Neutrophil % 83.9 % [facility] Neutrophil Absolute 12.93(H) 1.70 - 6.10 x10(3)/[facility] LABORATORY Lymph % 6.9 % [facility] Lymphocytes Abs 1.1 0.9 - 3.2 x10(3)/[facility]ORATORY Monocyte % 8.4 % [facility] Monocyte Abs 1.3(H) 0.3 - 0.9 x10(3)/[facility] LABORATORY Eos % 0.0 % [facility] Eosinophils Abs 0.0 0.0 - 0.4 x10(3)/[facility]OR[facility] Basophil % 0.1 % [facility] Baso Absolute 0.0 0.0 - 0.1 x10(3)/[facility] Immature Gran % 0.70 % [facility] Comment: Immature granulocytes(IG's)percentage and absolute count will include metamyelocytes, myelocytes, and promyelocytes. Blood smears from CBCs yielding IG's will be scanned manually for concordance. If this scan disagrees with the automated IG or if promyelocytes are noted, a manual differential will be performed. Immature Gran Absolute 0.11(H) 0.00 - 0.04 x10(3)/ L [facility] Blood specimen (specimen) 06/26/2019 3:39 AM EDT 06/26/2019 4:38 AM EDT Narrative Resulting Agency Comment Spec In Lab Atif Mendez MD HEMATOLOGY ORDERABLE S [facility] [place] [address] * (ABNORMAL) Hemogram (06/26/2019 3:39 AM EDT) White Blood Cell 15.4(H) 4.0 - 9.5 x10(3)/mc L [facility] Red Blood Cell 4.01 4.00 - 5.21 x10(6)/mc L [facility] Hemoglobin 8.2(L) 11.7 - 15.5 gm/dL [facility] Hematocrit 28.2(L) 35.7 - 45.8 % [facility] Mean Cell Volume 70.3(L) 82.6 - 94.4 fL [facility] Mean Cell Hemoglobin 20.4(L) 27.1 - 32.0 pg [facility] Mean Cell Hemoglobin Concentration 29.1(L) 31.7 - 35.0 gm/dL [facility] Platelet 419(H) 145 - 357 x10(3)/mc L [facility] RDW Standard Deviation 49.9(H) 37.0 - 46.0 fL [facility] RDW coefficient of variation 19.8(H) 11.5 - 14.1 % [facility] Mean Platelet Volume 10.3 7.6 - 12.9 fL [facility] NRBC% auto 0.0 % [facility] NRBC Absolute 0.000 0.000 - 0.000 x10(3)/ L [facility] Blood specimen (specimen) 06/26/2019 3:39 AM EDT 06/26/2019 4:38 AM EDT Narrative Resulting Agency Comment Spec In Lab Atif Mendez MD HEMATOLOGY ORDERABLE S [facility] [place] [address] * (ABNORMAL) Basic Metabolic Panel (non-fasting) (06/26/2019 3:39 AM EDT) Glucose 144 65 - 199 mg/dL [facility] Comment:Diabetes: >=200 mg/d L plus symptoms Blood Urea Nitrogen 11 8 - 18 mg/dL [facility] Creatinine 0.64(L) 0.70 - 1.20 mg/dL [facility] Sodium 139 135 - 145 mmol/L [facility] Potassium 3.5 3.5 - 5.0 mmol/L [facility] Comment: Please note: ??Patients with WBC >100,000 may have falsely elevated Potassium levels. ??For accurate Potassium quantification in these patients send serum separator tube (gold top) for subsequent determinations. ??Contact the Clinical Chemistry Laboratory if there are any questions. Chloride 109(H) 98 - 107 mmol/L [facility] Carbon Dioxide 21(L) 22 - 31 mmol/L [facility] Anion Gap 9 5 - 15 mmol/L [facility] Calcium 8.5 8.5 - 10.5 mg/dL [facility] Est Glomerular Filtration Rate 111 >=60 mL/min/1. 73 m?? [facility] Comment: The eGFR was calculated using the CKD-EPI equation. As with all creatinine based estimates of kidney function, eGFR values calculated with the CKD-EPI equation are not accurate in patients with acute kidney failure, extremes of body mass or the acutely ill. http://[employer]/[facility]f eGFR 128 >=60 mL/min/1. 73 m?? [facility] Comment: The eGFR was calculated using the CKD-EPI equation. As with all creatinine based estimates of kidney function, eGFR values calculated with the CKD-EPI equation are not accurate in patients with acute kidney failure, extremes of body mass or the acutely ill. http://[employer]/[facility] Blood specimen (specimen) 06/26/2019 3:39 AM EDT 06/26/2019 4:38 AM EDT Narrative Resulting Agency Comment Spec In Lab Atif Mendez MD CHEMISTRY ORDERABLES [facility] [place] [address] * Phosphorus (06/25/2019 2:52 PM EDT) Phosphorus 3.4 2.5 - 4.5 mg/dL [facility] Blood specimen (specimen) 06/25/2019 2:52 PM EDT 06/25/2019 3:11 PM EDT Narrative Resulting Agency Comment Spec In Lab Mariaelena Godinez MD CHEMISTRY ORDERABLE S Performing Organization Address [facility] Co de Phone Number [facility] [place] [address] * Magnesium (06/25/2019 2:52 PM EDT) Pathologist [facility] Magnesium 0.79 0.69 - 1.07 mmol/L [facility] Blood specimen (specimen) 06/25/2019 2:52 PM EDT 06/25/2019 3:11 PM EDT Narrative Resulting Agency Comment Spec In Lab Mariaelena Godinez MD CHEMISTRY ORDERABLE S Performing Organization Address City/[facility]/ZIP Co de Phone Number [facility] [place] [address] * (ABNORMAL) Basic Metabolic Panel (non-fasting) (06/25/2019 2:52 PM EDT) Glucose 281(H) 65 - 199 mg/dL [facility] Comment:Diabetes: >=200 mg/d L plus symptoms Blood Urea Nitrogen 13 8 - 18 mg/dL [facility] Creatinine 0.88 0.70 - 1.20 mg/dL [facility] Sodium 138 135 - 145 mmol/L [facility] Potassium 3.6 3.5 - 5.0 mmol/L [facility] Comment: Please note: ??Patients with WBC >100,000 may have falsely elevated Potassium levels. ??For accurate Potassium quantification in these patients send serum separator tube (gold top) for subsequent determinations. ??Contact the Clinical Chemistry Laboratory if there are any questions. Chloride 106 98 - 107 mmol/L [facility] Carbon Dioxide 20(L) 22 - 31 mmol/L [facility] Anion Gap 12 5 - 15 mmol/L [facility] Calcium 8.6 8.5 - 10.5 mg/dL [facility] Est Glomerular Filtration Rate 82 >=60 mL/min/1. 73 m?? [facility] Comment: The eGFR was calculated using the CKD-EPI equation. As with all creatinine based estimates of kidney function, eGFR values calculated with the CKD-EPI equation are not accurate in patients with acute kidney failure, extremes of body mass or the acutely ill. http://[employer]/[facility] eGFR 95 >=60 mL/min/1. 73 m?? [facility] Comment: The eGFR was calculated using the CKD-EPI equation. As with all creatinine based estimates of kidney function, eGFR values calculated with the CKD-EPI equation are not accurate in patients with acute kidney failure, extremes of body mass or the acutely ill. http://[employer]/[facility]nk[facility] Blood specimen (specimen) 06/25/2019 2:52 PM EDT 06/25/2019 3:11 PM EDT Narrative Resulting Agency Comment Spec In Lab Mariaelena Godinez MD CHEMISTRY ORDERABLE S [facility] [place] [address] * ABORH Recheck Status (06/25/2019 9:59 AM EDT) ABORH Type Recheck Completed [facility] Blood specimen (specimen) 06/25/2019 9:59 AM EDT 06/25/2019 10:01 AM EDT Narrative Resulting Agency Comment Spec In Lab Mariaelena Godinez MD BLOOD BANK LAB JOS[facility] TOLLIVER Performing Organization Address City/[facility]/ZIP Co de Phone Number [facility] [place] [address] * Antibody screen (06/25/2019 9:59 AM EDT) Ab Screen Interp Negative [facility] Expires at [id number] on: 06/28/2019 [facility] Blood specimen (specimen) 06/25/2019 9:59 AM EDT 06/25/2019 10:01 AM EDT Narrative Resulting Agency Comment Spec In Lab Mariaelena Godinez MD BLOOD BANK LAB [facility] TOLLIVER Performing Organization Address [facility]/ZIP Co de Phone Number [facility] [place] [place] [address] * ABO/Rh Typing (06/25/2019 9:59 AM EDT) ABORH Type A Pos [facility] Blood specimen (specimen) 06/25/2019 9:59 AM EDT 06/25/2019 10:01 AM EDT Narrative Resulting Agency Comment Spec In Lab Mariaelena Godinez MD BLOOD BANK LAB [facility] TO[facility]IVER Performing Organization Address City/[facility] Co de Phone Number [facility] [place] [address] documented in this encounter Visit Diagnoses Diagnosis Tachycardia Tachycardia, unspecified S/P Becca fundoplication (without gastrostomy tube) procedure Follow-up examination, following unspecified surgery GERD (gastroesophageal reflux disease) Esophageal reflux S/P Becca fundoplication (without gastrostomy tube) procedure Follow-up examination, following unspecified surgery documented in this encounter Administered Medications Inactive Administered Medications - up to 3 most recent administrations Medication Order MAR Action Action Date Dose Rate Site acetaminophen (Tylenol) (32.02 mg/mL) oral liquid 650 mg 650 mg, Oral, EVERY 4 HOURS PRN, Starting on 06/25/19 at 1743, Until Bev 06/28/19 at 1821, Pain, Mild Pain 1-3, Maximum dose of acetaminophen is 4000 mg from all sources in 24 hours. Should be given concomitantly if other Analgesics are ordered., Routine Given 06/27/2019 1:07 PM EDT 650 mg Given 06/26/2019 6:04 PM EDT 650 mg Given 06/26/2019 12:28 AM EDT 650 mg acetaminophen (Tylenol) tablet 650 mg 650 mg, Oral, ONCE, 1 dose, On Tue06/25/19 at 1100, Administer with SIP of H2O only., Day of Surgery (Day of Procedure), Routine Given 06/25/2019 10:33 AM E DT 650 mg albuterol (PROVENTIL) nebulizer solution 2.5 mg 2.5 mg, Nebulization, 4 TIMES DAILY, First dose on Tue06/25/19 at 1800, Until Discontinued Given 06/28/2019 1:39 PM EDT 2.5 mg Given 06/28/2019 9:25 AM EDT 2.5 mg Given 06/27/2019 9:21 PM EDT 2.5 mg cyclobenzaprine (Flexeril) tablet 10 mg 10 mg, Oral, 2 TIMES DAILY, First dose on Tue06/26/19 at 0900, Until Discontinued, Routine Given 06/28/2019 9:25 AM EDT 10 mg Given 06/27/2019 9:21 PM EDT 10 mg Given 06/26/2019 8:59 AM EDT 10 mg diazePAM (Valium) tablet 5 mg 5 mg, Oral, 2 TIMES DAILY PRN, Starting on Tue06/26/19 at 0000, Until Bev 06/28/19 at 1821, Muscle spasm, Routine Given 06/28/2019 10:30 AM EDT 5 mg hydrALAZINE (APRESOLINE) injection 5 mg 5 mg, Intravenous, EVERY 6 HOURS PRN, Starting on Tue06/27/19 at 0325, Until Tue06/28/19 at 1821, High Blood Pressure, Give for SBP>180, Hold for HR <60 Given 06/27/2019 4:02 AM EDT 5 mg hydroCHLOROthiazide (Hydrodiuril) tablet 25 mg 25 mg, Oral, DAILY, First dose on Tue06/26/19 at 0900, Until Discontinued, Routine Given 06/28/2019 9:25 AM EDT 25 mg Given 06/27/2019 9:20 AM EDT 25 mg Given 06/26/2019 8:59 AM EDT 25 mg HYDROmorphone (DILAUDID) injection 0.2-0.4 mg 0.2-0.4 mg, Intravenous, EVERY 5 MIN PRN, Starting on Tue06/25/19 at 1342, Until Tue06/25/19 at 1714, Pain, Give 0.2 mg every 5 minutes PRN for mild to moderate pain (1-5) Give 0.4 mg every 5 minutes PRN for moderate to severe pain (6-10). Hold for respiratory rate less than 10 per minute. Maximum dose 4 mg over one hour. If multiple pain medications are ordered, start with hydromorphone or morphine and use fentanyl for breakthrough pain., PACU Recovery, Routine Given 06/25/2019 3:40 PM EDT 0.2 mg Given 06/25/2019 3:27 PM EDT 0.2 mg HYDROmorphone (DILAUDID) injection 0.4 mg 0.4 mg, Intravenous, EVERY 2 HOURS PRN, Starting on Tue06/25/19 at 1743, Until Tue06/26/19 at 0759, Pain, Severe pain not relieved by oral pain medications, Routine Given 06/26/2019 3:51 AM EDT 0 .4 mg Given 06/25/2019 9:35 PM EDT 0.4 mg iohexoL (OMNIPAQUE) 350 mg/mL solution 0-200 mL 0-200 mL, Intravenous, ONCE PRN, 1 dose, Starting on Tue06/27/19 at 1710, Until Tue06/27/19 at 1710, Per Protocol, Warning Vesicant/Irritant Medication , Radiology Contrast, Routine Given 06/27/2019 5:10 PM EDT 47 mLs lactated ringers infusion 1,000 mL, at 100 mL/hr, Intravenous, CONTINUOUS, Starting on Tue06/25/19 at 1100, Until Tue06/25/19 at 1450, Day of Surgery (Day of Procedure) New Bag 06/25/2019 1:56 PM EDT Rate/Dose Verify 06/25/2019 10:34 AM EDT 100 mL /hr New Bag 06/25/2019 10:30 AM EDT 1,000 mLs 100 mL/hr lactated ringers infusion 1,000 mL, at 100 mL/hr, Intravenous, CONTINUOUS, Starting on Tue06/25/19 at 1630, Until 06/26/19 at 0854, Recovery (Recovery-Hospital Unit) New Bag 06/26/2019 12:30 AM EDT 1,000 mLs 100 m L/hr New Bag 06/25/2019 4:06 PM EDT 1,000 mLs 100 mL/hr ondansetron (ZOFRAN) injection 4 mg 4 mg, Intravenous, EVERY 8 HOURS PRN, Starting on Tue06/25/19 at 1743, Until Bev 06/28/19 at 1821, Nausea, May repeat times one in 30 minutes if ineffective. If multiple antiemetics are ordered, use ondansetron first, Recovery (Recovery-Hospital Unit) ondansetron (Zofran) tablet 4 mg 4 mg, Oral, EVERY 8 HOURS PRN, Starting on Tue06/25/19 at 1743, Until Bev 06/28/19 at 1821, Nausea, Vomiting, If multiple antiemetics are ordered, use ondansetron first. PO Preferred. If patient unable to take PO, may give IV if ordered. May repeat times one in 45 minutes if ineffective., Recovery (Recovery-Hospital Unit), Routine oxyCODONE (Roxicodone) (1 mg/mL) oral liquid 5 mg 5 mg, Oral, EVERY 4 HOURS PRN, Starting on Tue06/25/19 at 1631, Until Bev 06/28/19 at 1821, Pain, Moderate pain 4-10, Routine Given 06/28/2019 3:20 PM EDT 5 mg Given 06/28/2019 9:31 AM EDT 5 mg Given 06/28/2019 2:21 AM EDT 5 mg potassium chloride ER (K-Dur/Klor-Con) tablet 20 mEq 20 mEq, Oral, 3 TIMES DAILY, 6 doses, First dose on Tue06/27/19 at 1000, Last dose on Tue06/28/19 at 2100, 20 mEq tablet may be dissolved in water for administration, Routine Given 06/28/2019 3:31 PM EDT 20 mEq Given 06/28/2019 9:25 AM EDT 20 mEq Given 06/27/2019 9:20 PM EDT 20 mEq prochlorperazine (COMPAZINE) injection 10 mg 10 mg, Intravenous, EVERY 6 HOURS PRN, Starting on Tue06/25/19 at 2128, Until Bev 06/28/19 at 1821, Nausea, Routine Given 06/27/2019 9:37 PM EDT 10 mg Given 06/26/2019 12:48 AM EDT 10 mg sodium chloride 0.9 % (flush) flush 5 mL 5 mL, Intravenous, 2 TIMES DAILY, First dose on Tue06/25/19 at 2100, Until Discontinued, Recovery (Recovery-Hospital Unit), Routine Given 06/28/2019 9:26 AM EDT 5 mLs Given 06/27/2019 9:21 PM EDT 5 mLs Given 06/27/2019 9:21 AM EDT 5 mLs sodium chloride 0.9 % (flush) flush 5-20 mL 5-20 mL, Intravenous, EVERY 1 MIN PRN, Starting on Tue06/25/19 at 1743, Until Bev 06/28/19 at 1821, flush, Flush pertains to all indwelling lines. Flush per protocol found in the job aid using the link provided on this medication record., Recovery (Recovery-Hospital Unit), Routine Given 06/25/2019 9:35 PM EDT 5 mLs documented in this encounter Active and Recently Administered Medications Times are shown in EDT. Scheduled Medication Order 06/26/2019 06/27/2019 06/28/2019 albuterol (PROVENTIL) nebulizer solution 2.5 mg 2.5 mg, Nebulization, 4 TIMES DAILY, First dose on Tue06/25/19 at 1800, Until Discontinued 0859 (Given - Provider: Macy Gamez RN)1225 (Given - Provider: Macy Gamez RN)1805 (Given - Provider: Ruby Cowan RN)202 (Given - Provider: Adelina Mills RN) 09 (Given - Provider: Alia Ramos RN)1308 (Given - Provider: Alia Ramos RN)1834 (Given - Provider: Alia Ramos RN)212 (Given - Provider: Gucci Elmore RN) 09 (Given - Provider: Sandrine Morton RN)1339 (Given - Provider: Sandrine Morton RN) cyclobenzaprine (Flexeril) tablet 10 mg 10 mg, Oral, 2 TIMES DAILY, First dose on Tue06/26/19 at 0900, Until Discontinued, Routine 0859 (Given - Provider: Macy Gamez RN)2100 (Not Given - Provider: Adelina Mills RN - Reason: Patient/family refused) 09 (Not Given - Provider: Alia Ramos RN - Reason: Patient/family refused)2120 (Given - Provider: Gucci Elmore, DAVID) 09 (Given - Provider: Sandrine Morton RN) hydroCHLOROthiazide (Hydrodiuril) tablet 25 mg 25 mg, Oral, DAILY, First dose on Tue06/26/19 at 0900, Until Discontinued, Routine 0859 (Given - Provider: Macy Gamez RN) 09 (Given - Provider: Alia Ramos RN - Comment: BP 155/87, okay per PA) 09 (Given - Provider: Sandrine Morton RN) potassium chloride ER (K-Dur/Klor-Con) tablet 20 mEq 20 mEq, Oral, 3 TIMES DAILY, 6 doses, First dose on Tue06/27/19 at 1000, Last dose on Tue06/28/19 at 2100, 20 mEq tablet may be dissolved in water for administration, Routine 1030 (Given - Provider: Alia Ramos RN)1450 (Given - Provider: Alia Ramos RN)2119 (Given - Provider: Gucci Elmore, DAVID) 09 (Given - Provider: Sandrine Morton RN)153 (Given - Provider: Sandrine Morton RN) sodium chloride 0.9 % (flush) flush 5 mL 5 mL, Intravenous, 2 TIMES DAILY, First dose on Tue06/25/19 at 2100, Until Discontinued, Recovery (Recovery-Hospital Unit), Routine 0028 (Given - Provider: Adelina Everett RN)09 (Given - Provider: Macy Gamez, DAVID)2024 (Given - Provider: Adelina Mills, DAVID) 09 (Given - Provider: Alia Ramos RN)2120 (Given - Provider: Gucci Elmore RN) 0926 (Given - Provider: Sandrine Morton, DAVID) Continuous Medication Order 06/26/2019 06/27/2019 06/28/2019 lactated ringers infusion (CANCELED) 1,000 mL, at 100 mL/hr, Intravenous, CONTINUOUS, Starting on Tue06/25/19 at 1630, Until Tue06/26/19 at 0854, Recovery (Recovery-Hospital Unit) 0030 (New Bag - Provider: Adelina Everett RN) PRN Medication Order 06/26/2019 06/27/2019 06/28/2019 acetaminophen (Tylenol) (32.02 mg/mL) oral liquid 650 mg 650 mg, Oral, EVERY 4 HOURS PRN, Starting on Tue06/25/19 at 1743, Until Bev 06/28/19 at 1821, Pain, Mild Pain 1-3, Maximum dose of acetaminophen is 4000 mg from all sources in 24 hours. Should be given concomitantly if other Analgesics are ordered., Routine 0028 (Given - Provider: Adelina Everett RN)1804 (Given - Provider: Ruby Cowan RN) 1307 (Given - Provider: Alia Ramos RN) diazePAM (Valium) tablet 5 mg 5 mg, Oral, 2 TIMES DAILY PRN, Starting on Tue06/26/19 at 0000, Until Bev 06/28/19 at 1821, Muscle spasm, Routine 1030 (Given - Provider: Sandrine Morton, DAVID) hydrALAZINE (APRESOLINE) injection 5 mg 5 mg, Intravenous, EVERY 6 HOURS PRN, Starting on Tue06/27/19 at 0325, Until Bev 06/28/19 at 1821, High Blood Pressure, Give for SBP>180, Hold for HR <60 0402 (Given - Provider: Adelina Mills RN) HYDROmorphone (DILAUDID) injection 0.4 mg (CANCELED) 0.4 mg, Intravenous, EVERY 2 HOURS PRN, Starting on Tue06/25/19 at 1743, Until Tue06/26/19 at 0759, Pain, Severe pain not relieved by oral pain medications, Routine 0351 (Given - Provider: Adelina Everett RN) iohexoL (OMNIPAQUE) 350 mg/mL solution 0-200 mL (COMPLETED) 0-200 mL, Intravenous, ONCE PRN, 1 dose, Starting on Tue06/27/19 at 1710, Until Tue06/27/19 at 1710, Per Protocol, Warning Vesicant/Irritant Medication , Radiology Contrast, Routine 171 (Given - Provider: Maggie Kraus) lidocaine (XYLOCAINE) 10 mg/mL (1 %) injection 3 mg 3 mg (0.3 mL), Subcutaneous, ONCE PRN, 1 dose, Starting on 06/25/19 at 1743, Until Bev 06/28/19 at 1821, for discomfort with PIV insertion, Recovery (Recovery-Hospital Unit), Routine ondansetron (ZOFRAN) injection 4 mg(Linked Group 1) 4 mg, Intravenous, EVERY 8 HOURS PRN, Starting on Tue06/25/19 at 1743, Until Bev 06/28/19 at 1821, Nausea, May repeat times one in 30 minutes if ineffective. If multiple antiemetics are ordered, use ondansetron first, Recovery (Recovery-Hospital Unit) 2127 (See Alternative - Provider: Gucci Elmore RN) ondansetron (Zofran) tablet 4 mg(Linked Group 1) 4 mg, Oral, EVERY 8 HOURS PRN, Starting on Tue06/25/19 at 1743, Until Bev 06/28/19 at 1821, Nausea, Vomiting, If multiple antiemetics are ordered, use ondansetron first. PO Preferred. If patient unable to take PO, may give IV if ordered. May repeat times one in 45 minutes if ineffective., Recovery (Recovery-Hospital Unit), Routine 2127 (Not Given - Provider: Gucci Elmore RN - Reason: Patient/family refused - Comment: pt states gives her h.a.) oxyCODONE (Roxicodone) (1 mg/mL) oral liquid 5 mg 5 mg, Oral, EVERY 4 HOURS PRN, Starting on Tue06/25/19 at 1631, Until Bev 06/28/19 at 1821, Pain, Moderate pain 4-10, Routine 0028 (Given - Provider: Adelina Everett RN)0659 (Given - Provider: Adelina Everett RN)1229 (Given - Provider: Macy Gamez DAVID)1804 (Given - Provider: Ruby Cowan, DAVID)2212 (Given - Provider: Adelina Mills, DAVID) 0208 (Given - Provider: Adelina Mills RN)0614 (Given - Provider: Adelina Mills, DAVID)1030 (Given - Provider: Alia Ramos, DAVID)1450 (Given - Provider: Alia Ramos, DAVID)1944 (Given - Provider: Gucci Elmore, DAVID) 0221 (Given - Provider: Gucci Elmore, RN)0931 (Given - Provider: Sandrine Morton, DAVID)1520 (Given - Provider: Darling Connelly RN) prochlorperazine (COMPAZINE) injection 10 mg 10 mg, Intravenous, EVERY 6 HOURS PRN, Starting on 06/25/19 at 2128, Until Bev 06/28/19 at 1821, Nausea, Routine 0048 (Given - Provider: Adelina Everett RN) 2136 (Given - Provider: Gucci Elmore, DAVID) sodium chloride 0.9 % (flush) flush 5-20 mL 5-20 mL, Intravenous, EVERY 1 MIN PRN, Starting on 06/25/19 at 1743, Until Bev 06/28/19 at 1821, flush, Flush pertains to all indwelling lines. Flush per protocol found in the job aid using the link provided on this medication record., Recovery (Recovery-Hospital Unit), Routine Linked Groups Order Group 1: ondansetron (Zofran) tablet 4 mgJump to med 4 mg, Oral, EVERY 8 HOURS PRN, Starting on 06/25/19 at 1743, Until Bev 06/28/19 at 1821, Nausea, Vomiting, If multiple antiemetics are ordered, use ondansetron first. PO Preferred. If patient unable to take PO, may give IV if ordered. May repeat times one in 45 minutes if ineffective., Recovery (Recovery-Hospital Unit), Routine Or ondansetron (ZOFRAN) injection 4 mgJump to med 4 mg, Intravenous, EVERY 8 HOURS PRN, Starting on 06/25/19 at 1743, Until Bev 06/28/19 at 1821, Nausea, May repeat times one in 30 minutes if ineffective. If multiple antiemetics are ordered, use ondansetron first, Recovery (Recovery-Hospital Unit) documented in this encounter Care Teams Material Handler 1St Shift Relationship Specialty Start Date End Date Talisha Treviño MD [address] [place] [address] PCP - General Family Medicine 12/05/17 10/27/20 documented as of this encounter
--- OUTSIDE RECORDS SUMMARY | 2023-10-06 17:04 | XMS_ITS | Encounter Summary ---
Author Organization [facility] [place] [address] Care Team Providers Care Sugar Cane Planter Name Role Phone Talisha Treviño MD Primary Care Provider [phone] Encounter Details Date Type Department Care Team (Late st Contact Info) Description 07/26/2019 Telephone [place] [phone] José Feldman Social History Tobacco Use Types Packs/Day Years [...] encounter Miscellaneous Notes * Telephone Encounter - José Feldman - 07/26/2019 2:11 PM EDT Spoke to patient, who does not think the procedure is necessary anymore. Directed patient to follow up with RMD and submit a new referral with updated info if necessary. documented in this encounter Plan of Treatment Not on file documented as of this encounter Visit Diagnoses Not on filedocumented in this encounter Care Teams Sugar Cane Planter Relationship Specialty Start Date End Date Talisha Treviño MD [address] [place] [address] PCP - General Family Medicine 12/05/17 10/27/20 documented as of this encounter
--- OUTSIDE RECORDS SUMMARY | 2023-10-06 17:04 | XMS_ITS | Encounter Summary ---
Author Organization [facility] Address [facility] [address] [place] [address] Care Team Providers Care Frame Changer Name Role Phone Talisha Treviño MD Primary Care Provider [phone] Reason for Visit * Reason Onset Date Comments Medication Refill 02/19/2019 Encounter Details Date Type Department Care Team (Late st Contact Info) Description 02/19/2019 Refill [place] [address] John Garner APRN [facility] DR [place] [address] Small intestinal bacterial overgrowth Social History Tobacco Use Types Packs/Day Years [...] overgrowth documented in this encounter Care Teams Frame Changer Relationship Specialty Start Date End Date Talisha Treviño MD [address] [place] [address] PCP - General Family Medicine 12/05/17 10/27/20 documented as of this encounter
--- OUTSIDE RECORDS SUMMARY | 2023-10-06 17:04 | XMS_ITS | Encounter Summary ---
Author Organization [facility] [place] [address] Care Team Providers Care Global Marketing Manager Name Role Phone Talisha Treviño MD Primary Care Provider [phone] Encounter Details Date Type Department Care Team (Late st Contact Info) Description 07/02/2019 Telephone [place] [phone] Lakshmi Duckworth RN Social History Tobacco Use Types Packs/Day [...] encounter Miscellaneous Notes * Telephone Encounter - Lakshmi Duckworth RN - 07/02/2019 11:18 AM EDT Ms. Sprague is s/p lap Molly redo on 06/25/[address] Barron. She went home on 06/27. She calls today to request a refill of oxycodone, a prescription for a muscle relaxer, and a prescription for another laxative. Pt reports she has not had a BM since pre-op. She has taken senna liquid daily per her prescription. She reports she feels a BM is imminent yet is not happening. Recommended she get MOM and use that according to instructions on the bottle while also continuing her senna as prescribed until she has a good BM. She agrees. Discussed she was getting flexeril and valium in the hospital as she was on those pre-op for her back pain. She reports she does not have prescriptions for those and would like valium as it is more effective for her. She reports she is almost out of oxycodone. She states she fell in the shower yesterday, and she had to take extra oxycodone to help with the pain that caused. She isn't sure how shefell but denies hitting her head. She reports taking liquid Tylenol as well. Overall her pain is the same as it was in the hospital but slightly better. Advised I will send her prescription requests to a provider. documented in this encounter Plan of Treatment Not on file documented as of this encounter Visit Diagnoses Not on filedocumented in this encounter Care Teams Global Marketing Manager Relationship Specialty Start Date End Date Talisha Treviño MD [address] [place] [address] PCP - General Family Medicine 12/05/17 10/27/20 documented as of this encounter
--- OUTSIDE RECORDS SUMMARY | 2023-10-06 17:04 | XMS_ITS | Encounter Summary ---
Author Organization [place] [address] Care Team Providers Care Semiconductor Lab Technician Name Role Phone Talisha Treviño MD Primary Care Provider [phone] Encounter Details Date Type Department Care Team (Late st Contact Info) Description 06/12/2019 [place] [phone] Hodan Singleton RN Social History Tobacco Use [...] Telephone Encounter - Hodan Singleton RN - 06/12/2019 10:27 AM EDT Patient calls the office leaving a message on the RN voicemail stating that John Garner APRN prescribed a medication for bacterial overgrowth, but I never received the medication. Before returning call to patient, this scientific technical writer reviewed the chart. Patient had a positive HBT on 12/05/2018, was seen on 12/18/2018, Rifaximin was prescribed, but patients insurance denied coverage. Per documentation patient was unable to tolerate neomycin or flagyl, augmentin 875/125mg x10 days was prescribed by a covering provider on 01/26/2019 in John Garner's absence. Yesterday our office reached out to patient to schedule her routine follow up with John Garner APRN, office staff spoke with patient today, but declined appointment per documentation. Returned call to patient to discuss above. Patient states, I never took the last medication that was called in, because the when I called the pharmacy they said they didn't have in and then I had alot going on with me and jennifer mom's surgeries so I didn't call back. Patient states that she is seeing a surgeon at [facility] tomorrow, 06/13/19, for her hernia. Explained to patient that once things have settled down and she knows if she will be having surgery she can contact our office to schedule an appointment to review plan gong forward. Patient verbalized understanding and agrees with plan. Forwarding to John Garner APRN documented in this encounter Plan of Treatment Not on file documented as of this encounter Visit Diagnoses Not on filedocumented in this encounter Care Teams Semiconductor Lab Technician Relationship Specialty Start Date End Date Talisha Treviño MD [address] [place] [address] PCP - General Family Medicine 12/05/17 10/27/20 documented as of this encounter
--- OUTSIDE RECORDS SUMMARY | 2023-10-06 17:04 | XMS_ITS | Encounter Summary ---
Author Organization [facility] [place] [facility] Address [facility] [address] [place] [address] Care Team Providers Care Program Officer Name Role Phone Talisha Treviño MD Primary Care Provider [phone] Reason for Visit * Reason Comments Hernia Encounter Details Date Type Department Care Team (Latest Contact Info) Description 06/13/2019 1:20 PM EDT Office [place] [address] César Barron MD [facility] [place] [address] Paraesophageal hernia Social History Tobacco Use Types Packs/Day Years [...] Sign Reading Time Taken Comments Blood Pressure 131/59 06/13/2019 12:41 PM EDT Pulse 115 06/13/2019 12:41 PM EDT Temperature - - Respiratory Rate 18 06/13/2019 12:41 PM EDT Oxygen Saturation 100% 06/13/2019 12:41 PM EDT Inhaled Oxygen Concentration - - Weight 62 kg (136 lb 11.2 oz) 06/13/2019 12:41 P M EDT Height 148.6 cm (4' 10.5) 06/13/2019 12:41 PM E DT Body Mass Index 28.08 06/13/2019 12:41 PM EDT documented in this encounter Progress Notes * César Barron MD - 06/13/2019 1:20 PM EDT Patient is a 39-year-old female who underwent a Molly fundoplication back in August 2016. I have notseen her back since her initial postoperative visit [...] injury to the esophagus or stomach and asmall chance of having to convert to the open surgery. There is also chance of recurrence of herniarecurrence of reflux. Postop she is likely to experience a component of early satiety dysphasia andbloating majority symptoms diminished the further she gets out from surgery. Overall she seems understand would like to proceed we will give her date for surgery at some point in the near future. Overall I spent 40 minutes with her today the entire time in [id number] conversation regarding these issues documented in this encounter Plan of Treatment Not on file documented as of this encounter Visit Diagnoses Diagnosis Paraesophageal hernia Diaphragmatic hernia without mention of obstruction or gangrene documented in this encounter Care Teams Program Officer Relationship Specialty Start Date End Date Talisha Treviño MD [address] [place] [address] PCP - General Family Medicine 12/05/17 10/27/20 documented as of this encounter
--- OUTSIDE RECORDS SUMMARY | 2023-10-06 17:04 | XMS_ITS | Encounter Summary ---
Author Organization [facility] [place] [address] Care Team Providers Care Mate Relief Name Role Phone Talisha Treviño MD Primary Care Provider [phone] Encounter Details Date Type Department Care Team (Late st Contact Info) Description 12/18/2018 Telephone [place] [phone] Tawana Newell, RN Social History Tobacco Use Types Packs/Day [...] encounter Miscellaneous Notes * Telephone Encounter - Tawana Newell RN - 12/18/2018 2:52 PM EST Received message from patient stating that she needs a prior authorization for Rifaximin. Returned call. Advised that I would pass on to prior auth team. documented in this encounter Plan of Treatment Not on file documented as of this encounter Visit Diagnoses Not on filedocumented in this encounter Care Teams Mate Relief Relationship Specialty Start Date End Date Talisha Treviño MD [address] [place] [address] PCP - General Family Medicine 12/05/17 10/27/20 documented as of this encounter
--- OUTSIDE RECORDS SUMMARY | 2023-10-06 17:04 | XMS_ITS | Encounter Summary ---
Author Organization [place] [address] Care Team Providers Care Pbx Installer Name Role Phone Talisha Treviño MD Primary Care Provider [phone] Encounter Details Date Type Department Care Team (Late st Contact Info) Description 06/06/2019 Telephone [place] [phone] Geri Avalos Social History Tobacco Use Types [...] * Telephone Encounter - Geri Avalos - 06/12/2019 8:15 AM EDT Patient declined to schedule at this time because she may have to go back in for surgery. A reminder letter is being sent and the patient stated she would contact the office to schedule at a later date. * Telephone Encounter - Geri Avalos - 06/11/2019 8:38 AM EDT Left message for patient to contact the office to schedule an May with Tracia but no voicemail picked up (recall). * Telephone Encounter - Geri Avalos - 06/06/2019 8:54 AM EDT Attempted phoning patient to schedule May with Tracia but no voicemail picked up (recall). documented in this encounter Plan of Treatment Not on file documented as of this encounter Visit Diagnoses Not on filedocumented in this encounter Care Teams Pbx Installer Relationship Specialty Start Date End Date Talisha Treviño MD [address] [place] [address] PCP - General Family Medicine 12/05/17 10/27/20 documented as of this encounter
--- OUTSIDE RECORDS SUMMARY | 2023-10-06 17:04 | XMS_ITS | Encounter Summary ---
Author Organization [facility] [place] [address] Care Team Providers Care Guest Service Representative Name Role Phone Talisha Treviño MD Primary Care Provider Encounter Details Date Type Department Care Team (Late st Contact Info) Description 07/13/2019 Telephone [place] [phone] Poonam Palomino RN Social History Tobacco Use Types Packs/Day [...] encounter Miscellaneous Notes * Telephone Encounter - Poonam Mariee RN - 07/13/2019 1:06 PM EDT I received a call labeled as urgent from Ruby who in her messages wants to know if she can now eat bread and swallow her pills. I called her and reveiwed the below information which was obtained from her discharge paperwork. Patient Name: Ruby Sprague : [id number] MR#: [id number] Case Date: 06/25/2019 Surgeon: Surgeon(s) and Role: * César Barron MD - Primary * Atif Mendez MD - Fellow Preoperative diagnosis: recurrent hiatal hernia Postoperative diagnosis: recurrent hiatal hernia ?? Procedure(s) (LRB): LAPAROSCOPIC REVISION OF MOLLY FUNDOPLASTY (WRVU *) (N/A) LAPAROSCOPIC TAKEDOWN PREVIOUS MOLLY (WRVU *) (N/A) EGD, UPPER GI ENDOSCOPY (N/A) MODIFIER, HIATAL HERNIA (N/A) ?? 07/16/2019 Diet: You should follow a post Molly diet, as instructed by the revenue accounting manager in the hospital for aperiod of approximately 3 weeks. The main purpose of this diet is to have you consume foods that will slide easily down into your stomach. Most foods when well chewed should pass through the esophagus and into your stomach. However, patients do not always chew foods well enough. Slow, thorough chewing is recommended. Moistening foods with sauce, gravy, syrup or [...] agree with you, try these sparingly until you can tolerate them. You need to remain in an upright position for 30-60 minutes after you eat. You may find that you need to eat smaller meals with frequent between meal snacks to get enough calories. 07/23/2019?? Pills: Please crush all pills for 4 weeks. ?? General Surgery Discharge Summary?? Patient Name: Ruby Sprague Patient Age: 39 y.o. Birthdate: 1980 Admit date: 06/25/2019 Discharge date and time: 06/28/2019 Attending Physician: César Barron MD Primary Diagnosis: Recurrent Hiatal Hernia Secondary Diagnosis: Anxiety; Asthma; GERD; HTN; Post-op Anemia of Unknown Source; Hypoxemia secondary to Atelectasis Operations and Procedures: Laparoscopic Revision of Molly Fundoplasty with Takedown of Previous Molly and Intraoperative Upper Endoscopy Surgeons: Surgeon(s) and Role: * César Barron MD - Primary * Atif Mendez MD - Fellow ??History of Present Illness: Ruby Sprague is a 39-year-old female who underwent a Molly fundoplication back in August 2016. ??Recently she has developed dysphasia as well as recurrent reflux symptoms. ??She had a upper GI series done at an outside facility which showed a recurrent hernia with a p araesophageal component. ??It is possible her symptoms are all largely attributable to this recurrent hiatal hernia and a laparoscopic repair is recommended. ??Since she was last seen, she has had a repair of recurrent umbilical hernia with mesh, and this will not be a barrier to proceeding laparoscopically. ? Hospital Course: Ruby Sprague is a 39 y.o. female who was admitted on 06/25/2019 for laparoscopic revision of molly fundoplasty with takedown of previous molly and intraoperative upper endoscopy. The operative course was uneventful. On POD# 0 she was started on a post Molly clear liquid diet, and when she tolerated that she was advanced to a post Molly full liquid diet. She was noted to have a Hbg of 8.2, and on multiple checks it remained stable, there was no indication of active bleeding. ?? On POD# 2 she was noted to [...] small pleural effusions with associated compressive atelectasis. ?? On POD# 3 her potassium remained low, so it was again repleted. She was no longer requiring supplemental oxygen. ?? Her pain was managed with elixir Tylenol [...] was discharged to home in stable condition. ?? documented in this encounter Plan of Treatment Not on file documented as of this encounter Visit Diagnoses Not on filedocumented in this encounter Care Teams Guest Service Representative Relationship Specialty Start Date End Date Talisha Treviño MD [address] [place] [address] PCP - General Family Medicine 12/05/17 10/27/20 documented as of this encounter
--- OUTSIDE RECORDS SUMMARY | 2023-10-06 17:04 | XMS_ITS | Encounter Summary ---
Author Organization [facility] Address [facility] [address] Care Team Providers Care Hydro Plant Site Manager Name Role Phone Talisha Treviño MD Primary Care Provider [phone] Reason for Visit * Reason Onset Date Comments Medication Refill Medication Refill 07/02/2019 Encounter Details Date Type Department Care Team (Late st Contact Info) Description 06/28/2019 Refill [place] [address] Margaret Rios PA [facility] [place] [address] Social History Tobacco Use Types Packs/Day Years [...] on filedocumented in this encounter Care Teams Hydro Plant Site Manager Relationship Specialty Start Date End Date Talisha Treviño MD [address] [place] [address] PCP - General Family Medicine 12/05/17 10/27/20 documented as of this encounter
--- OUTSIDE RECORDS SUMMARY | 2023-10-06 17:04 | XMS_ITS | Encounter Summary ---
Author Organization [facility] [place] [address] Care Team Providers Care Metal Extrusion Supervisor Name Role Phone Talisha Treviño MD Primary Care Provider [phone] Encounter Details Date Type Department Care Team (Late st Contact Info) Description 11/20/2018 Telephone [place] [address]-1000 Tawana Newell RN Social History Tobacco Use Types Packs/Day [...] Telephone Encounter - Tawana Newell RN - 11/20/2018 5:29 PM EDT Returned call to patient. Reviewed that she would need to be off her laxatives x 1 week prior to the HBT. She confirms that she will be able to do this. Reviewed other instructions for HBT with patient. * Telephone Encounter - Tawana Newell RN - 11/20/2018 5:27 PM EDT ----- Message from Fernanda Almodovar sent at 11/14/2018 5:26 PM EDT ----- Regarding: FW: Tracia patient rescheduled for HBT-Lactulose on . 12/05/18 Tawana, Would you mind calling Ruby to let her know about this? That is why I sent the question to John and you in case she had any other questions or concerns. Thank you! Fernanda ----- Message ----- From: John Garner APRN Sent: 11/13/2018 10:09 AM EDT To: Fernanda Almodovar Subject: RE: Lluviaa patient rescheduled for HBT-Lactu# That would be ideal. ----- Message ----- From: Fernanda Almodovar Sent: 11/10/2018 4:28 PM EDT To: Tawana Newell RN, John Garner APRN, # Subject: John patient rescheduled for HBT-Lactulose# Hello, Finally getting a chance to send this message. Ruby is taking Dulcolax twice daily as directed by her surgeon who did her hernia surgery on September 23, 2018. She does have problems with constipation if she stops the Dulcolax. Does she need to stop the Dulcolax 1 week prior to the HBT-Lactulose as her patient instructions read? Thank you! Fernanda documented in this encounter Plan of Treatment Not on file documented as of this encounter Visit Diagnoses Not on filedocumented in this encounter Care Teams Metal Extrusion Supervisor Relationship Specialty Start Date End Date Talisha Treviño MD [address] [place] [address] PCP - General Family Medicine 12/05/17 10/27/20 documented as of this encounter
--- OUTSIDE RECORDS SUMMARY | 2023-10-06 17:04 | XMS_ITS | Encounter Summary ---
Author Organization [facility] [place] [address] Care Team Providers Care Office Engineer Name Role Phone Talisha Treviño MD Primary Care Provider [phone] Reason for Visit * Surgical (Routine) - Closed Specialty Diagnoses / Procedures Referred By Dayan parker Referred To Contact Gastroenterology Diagnoses Gas/bloat/distention Procedures Lactulose breath test John Garner APRN [facility] [place] [address] [facility] [address] [place] [address] Referral ID Status Reason Start Date Expiration Date Visits Re quested Visits Authorized [id number] Closed 09/18/2018 09/18/2019 1 1 Encounter Details Date Type Department Care Team (Latest Contact Info) Description 12/05/2018 8:00 AM EDT Procedure visit [place] [address] Small intestinal bacterial overgrowth; Bloating Social History Tobacco Use Types Packs/Day Years [...] on file documented as of this encounter Progress Notes * Angelic Villarreal APRN - 12/05/2018 8:00 AM EDT Gastroenterology Breath Test Report Patient: Ruby Sprague Date Of : 1980 PCP: Talisha Treviño MD Referring: John Garner STUDY DATE: 12/06/2018 PROVIDER: Angelic Villarreal APRN INDICATION: bloating ppmH2 ppmCH4 CO2(f) Fasting Baseline 13 21 3.4/1.79 Administer sugar: Lactulose 10g with 90 mL H2O Sample Time ppmH2 ppmCH4 CO2(f) 1. 15 min 14 24 3.5/1.74 2. 30 min 16 28 3.9/1.56 3. 45 min 14 24 3.8/1.60 4. 60 min 21 30 3.4/1.79 5. 75 min 50 38 3.5/1.74 6. 90 min 68 41 3.6/1.69 7. 105 min 70 40 3.5/1.74 8. 120 min 90 41 4.1/1.48 Interpretation: Positive hydrogen breath test. Patient had excess production of methane which can be associated with constipation. Patient reported abdominal pain, bloating, and nausea symptoms during the test. Clinical interpretation is based on the Hydrogen and Methane-Based Breath Testing in Gastrointestinal Disorders: The [place] Consensus (Am J Gastroenterol 2017; 112(5):775-84. Apositive breath test is defined as a rise in hydrogen production >20 ppm compared to baseline within 90 minutes. Methane-positive is defined by at least 10 ppm production of methane. Signed, Angelic Villarreal APRN Gastroenterology and Hepatology [place] [id number] P: [phone] F: [phone] Copy: John Treviño MD documented in this encounter Plan of Treatment Not on file documented as of this encounter Visit Diagnoses Diagnosis Small intestinal bacterial overgrowth Bloating Flatulence, eructation, and gas pain documented in this encounter Care Teams Office Engineer Relationship Specialty Start Date End Date Talisha Treviño MD [address] [place], [place] [address] PCP - General Family Medicine 12/05/17 10/27/20 documented as of this encounter
--- OUTSIDE RECORDS SUMMARY | 2023-10-06 17:04 | XMS_ITS | Encounter Summary ---
Author Organization [facility] [place] [address] Care Team Providers Care Business Office Representative Name Role Phone Talisha Treviño MD Primary Care Provider [phone] Encounter Details Date Type Department Care Team (Late st Contact Info) Description 06/11/2019 Telephone [place] [address]1000 Helena Kraus Social History Tobacco Use Types Packs/Day Years [...] filedocumented in this encounter Care Teams Business Office Representative Relationship Specialty Start Date End Date Talisha Treviño MD [address] [place] [address] PCP - General Family Medicine 12/05/17 10/27/20 documented as of this encounter
--- OUTSIDE RECORDS SUMMARY | 2023-10-06 17:04 | XMS_ITS | Encounter Summary ---
Author Organization [facility] [place] [address] Care Team Providers Care Colliery Clerk Name Role Phone Talisha Treviño MD Primary Care Provider [phone] Encounter Details Date Type Department Care Team (Late st Contact Info) Description 02/05/2019 Telephone [place] [id number] Tawana Newell RN Social History Tobacco Use [...] encounter Miscellaneous Notes * Telephone Encounter - Twaana Newell RN - 02/20/2019 9:40 AM EST Returned call to patient to advise that probiotics prescribed. Send patient hand outs on SIBO diet for her review. * Telephone Encounter - Tawana Newell RN - 02/19/2019 9:58 AM EST Returned call to patient to relay message from provider: She should stop (Augmentin). Will review if alternative ideas are indicated. Patient states she is not able to come in for an appointment with Carin Saha to discuss SIBO diet. * Telephone Encounter - Tawana Newell RN - 02/05/2019 12:23 PM EST Received call from patient who states I think I'm having a side effect to Augmentin. Patient states she is having pain in her bones and muscles. She states she has only taken one per day since 01/26. Patient has tried neomycin, flagyl. She wasn't approved for Rifaximin. Advised I would review with provider to determine if patient should proceed with the remaining course of medication since she has not taken twice daily as prescribed. Alternative idea - submit updated PA to insurance for Rifaximin in light of failed courses of antibiotics? documented in this encounter Plan of Treatment Not on file documented as of this encounter Visit Diagnoses Not on filedocumented in this encounter Care Teams Colliery Clerk Relationship Specialty Start Date End Date Talisha Treviño MD [address] [place] [address] PCP - General Family Medicine 12/05/17 10/27/20 documented as of this encounter
--- OUTSIDE RECORDS SUMMARY | 2023-10-06 17:04 | XMS_ITS | Encounter Summary ---
Author Organization Formerly [facility] Address [facility] [address] Care Team Providers Care Integration Developer Name Role Phone Talisha Treviño MD Primary Care Provider Encounter Details Date Type Department Care Team (Late st Contact Info) Description 06/08/2019 Ancillary Procedure [place] [id number] César Barron MD [facility] [place] [address] Social History Tobacco Use Types Packs/Day Years [...] Procedure Name Priority Date/Time Associated Diagnosis Comments FILM LIBRARY STORAGE ONLY DX STUDY Routine 06/08/2019 12:00 AM EDT documented in this encounter Results * Film Library- Storage Only DX Study (06/08/2019 12:00 AM EDT) Narrative RAD - 06/11/2019 2:06 PM EDT This exam is auto-finalizing. It's purpose is for storage only. César Barron MD IMG FILM LIBRARY OR DERABLES Performing Organization Address City/State/[facility] Co de Phone Number [place], [place] documented in this encounter Visit Diagnoses Not on filedocumented in this encounter Care Teams Integration Developer Relationship Specialty Start Date End Date Talisha Treviño MD [address] [place] [address] PCP - General Family Medicine 12/05/17 10/27/20 documented as of this encounter
--- OUTSIDE RECORDS SUMMARY | 2023-10-06 17:04 | XMS_ITS | Encounter Summary ---
Author Organization [facility] Address [facility] [address] [place] [address] Care Team Providers Care Sap Business Intelligence Consultant Name Role Phone Talisha Treviño MD Primary Care Provider [phone] Reason for Referral * Diagnostic Test (Routine) - Specialty Diagnoses / Procedures Referred By Dayan parker Referred To Contact Radiology Diagnoses Paraesophageal hernia Procedures XR Fluoro Barium Swallow César Barron MD [facility] [place] [address] [facility] Rad Xray [address] [place] [address] [place] [address] Referral ID Status Reason Start Date Expiration Date Visits Requested Visits Authorized [id number] Specialty Service Requested 06/08/2019 12/07/2020 1 1 Encounter Details Date Type Department Care Team (Late st Contact Info) Description 06/08/2019 Orders [place] [address] [facility] [place] [address] Paraesophageal hernia Social History Tobacco Use Types [...] of this encounter Plan of Treatment Scheduled Orders Name Type Priority Associated Diagnoses Orde r Schedule XR Fluoro Barium Swallow Imaging Routine Paraesophageal hernia Expected: 06/08/2019, Expires: 06/07/2020 documented as of this encounter Visit Diagnoses Diagnosis Paraesophageal hernia Diaphragmatic hernia without mention of obstruction or gangrene documented in this encounter Care Teams Sap Business Intelligence Consultant Relationship Specialty Start Date End Date Talisha Treviño MD [address] [place] [address] PCP - General Family Medicine 12/05/17 10/27/20 documented as of this encounter
--- OUTSIDE RECORDS SUMMARY | 2023-10-06 17:04 | XMS_ITS | Encounter Summary ---
Author Organization [facility] [place] [address] Care Team Providers Care Deckhand Sponge Boat Name Role Phone Talisha Treviño MD Primary Care Provider [phone] Encounter Details Date Type Department Care Team (Late st Contact Info) Description 01/08/2019 Telephone [place] [phone] Tawana Newell RN Social History Tobacco Use [...] Telephone Encounter - Tawana Newell RN - 01/17/2019 10:37 AM EST Phoned patient to advise script sent to her pharmacy. * Telephone Encounter - Tawana Newell RN - 01/08/2019 3:08 PM EST Received message from patient asking for update on alternative medication to be prescribed for SIBO. Call placed to patient. LVMM letting patient know that Neomycin script pended to provider. documented in this encounter Plan of Treatment Not on file documented as of this encounter Visit Diagnoses Not on filedocumented in this encounter Care Teams Deckhand Sponge Boat Relationship Specialty Start Date End Date Talisha Treviño MD [address] [place] [address] PCP - General Family Medicine 12/05/17 10/27/20 documented as of this encounter
--- OUTSIDE RECORDS SUMMARY | 2023-10-06 17:04 | XMS_ITS | Encounter Summary ---
Author Organization [facility] Address [facility] [address] [place] [address] Care Team Providers Care Network Technical Analyst Name Role Phone Talisha Treviño MD Primary Care Provider [phone] Encounter Details Date Type Department Care Team (Late st Contact Info) Description 12/18/2018 8:30 AM EST Office [place] [phone] John Garner APRN [facility] [place] [address] Small intestinal bacterial overgrowth Social History Tobacco [...] Sign Reading Time Taken Comments Blood Pressure 138/82 12/18/2018 8:39 AM EST Pulse 105 12/18/2018 8:39 AM EST Temperature - - Respiratory Rate - - Oxygen Saturation - - Inhaled Oxygen Concentration - - Weight 67.1 kg (148 lb) 12/18/2018 8:39 AM EST Height 148.6 cm (4' 10.5) 12/18/2018 8:39 AM ES T Body Mass Index 30.41 12/18/2018 8:39 AM EST documented in this encounter Progress Notes * John Garner, DAVID - 12/18/2018 8:30 AM EST _25___minutes of this__30__-minute visit were spent in face to face discussion and/or counseling the patient, regarding symptoms and treatment options as detailed below. The patient is here for follow up regarding gi testing. Positive hbt. Ongoing gas and bloating. Worse after eating. Hx of mirtha fundoplication 2017. Recently began having reflux. miralax did not work well for constipation. Pt began taking dulcolax 5mg bid. This is allowing her to have a bowel movement qod. She is having more stool and feels more empty. Plan: 1. Gerd: omeprazole 40mg qd, 30 minutes before breakfast. 2. Sibo: rifaximin 550mg bid x 14 days; if not covered by insurance then neomycin 550mg tid x 14 days 3. Constipation: dulcolax 2-4 tablets qd; goal: daily stool 4. Pelvic floor dysfunction: encouraged use of foot stool 5. Pt will call with progress. documented in this encounter Plan of Treatment Not on file documented as of this encounter Visit Diagnoses Diagnosis Small intestinal bacterial overgrowth documented in this encounter Care Teams Network Technical Analyst Relationship Specialty Start Date End Date Talisha Treviño MD [address] [place] [address] PCP - General Family Medicine 12/05/17 10/27/20 documented as of this encounter
--- OUTSIDE RECORDS SUMMARY | 2023-10-06 17:04 | XMS_ITS | Encounter Summary ---
Author Organization [facility] Address [facility] [place] [address] Care Team Providers Care Sales Service Route Manager Name Role Phone Talisha Treviño MD Primary Care Provider [phone] Reason for Visit * Reason Onset Date Comments Abdominal Pain 01/19/2019 from Neomycin Encounter Details Date Type Department Care Team (Late st Contact Info) Description 01/19/2019 Tele[place] [address] Nadia Myers Abdominal Pain (from Neomycin) Social History Tobacco Use Types Packs/Day Years [...] Telephone Encounter - Tawana Newell RN - 01/23/2019 10:17 AM EST Follow-up call placed to patient to advise that alternative prescribed for treatment of SIBO and sent to her pharmacy. Discussed abstaining from alcohol while on flagyl. Patient verbalizes understanding. * Telephone Encounter - Tawana Newell RN - 01/22/2019 4:00 PM EST Received call back from patient. Discussed that she has had stomach upset/severe nausea since starting on Neomycin. She has only taken 5 tablets total since starting medication one week ago. Has not been able to tolerate twice dailydosing. Agreed with patient to stop Neomycin. Advised that I would review alternative with provider. Insurance will not cover Rifaximin for SIBO.Only covered for IBS-D. Per HBT results: Interpretation: Positive hydrogen breath test. Patient had excess production of methane which can be associated with constipation. Patient reported abdominal pain, bloating, and nausea symptoms during the test. * Telephone Encounter - Tawana Newell RN - 01/22/2019 9:10 AM EST Call returned. [facility] requesting call back. * Telephone Encounter - Nadia Myers - 01/19/2019 10:28 AM EST Caller and relationship to patient (if other than patient): self Best time to reach caller: [place] Message or Reason for Call: Medication, Neomycin is upsetting patient's stomach, stomach pains. Is there another medication she could take without side effects? Appt Needed and Reason: No Call Back Provider: Daysi documented in this encounter Plan of Treatment Not on file documented as of this encounter Visit Diagnoses Not on filedocumented in this encounter Care Teams Sales Service Route Manager Relationship Specialty Start Date End Date Talisha Treviño MD [address] [place] [address] PCP - General Family Medicine 12/05/17 10/27/20 documented as of this encounter
--- OUTSIDE RECORDS SUMMARY | 2023-10-06 17:04 | XMS_ITS | Encounter Summary ---
Author Organization [facility] [place] [address] Care Team Providers Care Rn Hematology Name Role Phone Talisha Treviño MD Primary Care Provider [phone] Encounter Details Date Type Department Care Team (Late st Contact Info) Description 07/06/2019 Telephone [place] [phone] Poonam Palomino, RN Social History Tobacco Use Types Packs/Day [...] Telephone Encounter - Poonam Mariee RN - 07/06/2019 3:58 PM EDT I received a call from Ruby, we reviewed her diet. I let her know Soda Pop is not recommended. she can have mac and cheese and hamburger (cooked in gravy). She will continue to be compliant with her dietary choices. We discussed everything needs to be soft and wet and to drink as she is eating to ensue easy passage. I gave her the general surgery nurse's line to call for any problems, questions or concerns. I let her know there is someone collection agent at all times. She notes she thinks she is doing well, she has had some follow up with her PCP for medications as she had a fall. She feels she is doing better and notes only some residual tenderness at times. She has follow up with Dr. Barron and will come as scheduled. Case Date: 06/25/2019 ?? Surgeon: Surgeon(s) and Role: * César Barron MD - Primary * Atif Mendez MD - Fellow ?? Preoperative diagnosis: recurrent hiatal hernia ?? Postoperative diagnosis: recurrent hiatal hernia ?? Procedure(s) (LRB): LAPAROSCOPIC REVISION OF MOLLY FUNDOPLASTY (WRVU *) (N/A) LAPAROSCOPIC TAKEDOWN PREVIOUS MOLLY (WRVU *) (N/A) EGD, UPPER GI ENDOSCOPY (N/A) MODIFIER, HIATAL HERNIA (N/A) ?? Indications for surgery: Patient is a 39-year-old female who had undergone a Molly fundoplication and 2017. She did well initially but had recurrent symptoms and following review of her options following appropriate evaluation she has elected to undergo repair of a recurrent hiatal hernia takedownof fundoplication and re-formation and upper GI endoscopy ?? Findings at the time of surgery: Patient [...] and reformed a fundoplication over a 60 [place] bougie there were no complications. documented in this encounter Plan of Treatment Not on file documented as of this encounter Visit Diagnoses Not on filedocumented in this encounter Care Teams Rn Hematology Relationship Specialty Start Date End Date Talisha Treviño MD [address] [place] [address] PCP - General Family Medicine 12/05/17 10/27/20 documented as of this encounter
--- OUTSIDE RECORDS SUMMARY | 2023-10-06 17:04 | XMS_ITS | Encounter Summary ---
Author Organization [facility] Address [facility] [place] [address] Care Team Providers Care Cutter And Presser Name Role Phone Talisha Treviño MD Primary Care Provider [phone] Reason for Visit * Reason Onset Date Comments Medication Refill 01/08/2019 Medication Refill 01/16/2019 Encounter Details Date Type Department Care Team (Late st Contact Info) Description 01/08/2019 Refill [place] [address] John Garner APRN [facility] DR [place] [address] Small intestinal bacterial overgrowth Social History Tobacco [...] overgrowth documented in this encounter Care Teams Cutter And Presser Relationship Specialty Start Date End Date Talisha Treviño MD [address] [place] [address] PCP - General Family Medicine 12/05/17 10/27/20 documented as of this encounter
--- OUTSIDE RECORDS SUMMARY | 2023-10-06 17:04 | XMS_ITS | Encounter Summary ---
Author Organization [facility] Address [facility] [address] [place] [address] Care Team Providers Care Etcher Apprentice Name Role Phone Talisha Treviño MD Primary Care Provider [phone] Reason for Visit * Reason Onset Date Comments Medication Refill 01/23/2019 Encounter Details Date Type Department Care Team (Late st Contact Info) Description 01/23/2019 Ref[place] [address] John Garner APRN [facility] DR GASTROENTER[place] [address] Small intestinal bacterial overgrowth Social History Tobacco [...] overgrowth documented in this encounter Care Teams Etcher Apprentice Relationship Specialty Start Date End Date Talisha Treviño MD [address] [place] [address] PCP - General Family Medicine 12/05/17 10/27/20 documented as of this encounter
--- OUTSIDE RECORDS SUMMARY | 2023-10-06 17:04 | XMS_ITS | Encounter Summary ---
Author Organization [facility] [place] [address] Care Team Providers Care Nurse Aide Name Role Phone Talisha Treviño MD Primary Care Provider [phone] Encounter Details Date Type Department Care Team (Latest Contact Info) Description 12/25/2019 1:33 PM EST - 12/25/2019 11:59 PM EST Hospital [place] [address] Discharge Disposition: Home Social History Tobacco Use [...] Procedure Name Priority Date/Time Associated Diagnosis Comments COVID-19 PCR Routine 12/25/2019 8:48 AM EST documented in this encounter Results * COVID-19 PCR (12/25/2019 8:48 AM EST) SARS-CoV-2 RNA Not Detected Not Detected [facility] Comment: This result should be interpreted in combination with the clinical observations, patient history and epidemiological information in making a final diagnosis. For testing of asymptomatic individuals, assay performance characteristics and clinical utility have not been evaluated. Testing for SARS-CoV-2 (Severe acute respiratory syndrome coronavirus 2, formerly known as 2019 novel coronavirus or 2019-nCoV) to aid in the diagnosis of COVID-19 is performed using the [employer] m SARS-CoV-2 Assay as authorized by the FDA Emergency Use Authorization (EUA). This EUA assay is intended for In-vitro Diagnostic (IVD) use with respiratory specimens such as nasopharyngeal swabs collected from individuals during the acute phase of infection. This assay is performed based on the instructions for use provided by [employer] and additional guidance provided by CDC and FDA. Testing is performed in the [facility] within the Department of Pathology and Laboratory Medicine at [facility], certified under the Clinical Laboratory Improvement Amendments of 1988 (CLIA), 42 U.S.C. 263a, to perform high complexity tests. Assay performance has been verified according to clinical laboratory regulatory requirements for use with specimens collected from individuals suspected of COVID-19. Test results are provided above. A result of ? Not Detected? indicates that the viral RNA target is not present above the limit of detection, but does not preclude SARS-CoV-2 infection. False negative results may occur if a specimen is improperly collected, transported or handled; if amplification inhibitors are present; or if inadequate numbers of viral particles are present in the specimen. When a diagnostic test is negative, the possibility of a false negative result should be considered in the context of a patient? s recent exposures and the presence of clinical signs and symptoms consistent with COVID-19. A result of ? Detected? indicates that RNA from SARS-CoV-2 was detected and the patient is infected. As required or requested by public health authorities, positive specimens may be sent for additional testing. Positive and negative predictive values for this test are highly dependent on disease prevalence. A result of ? Invalid? indicates that neither the viral RNA targets nor the internal control target was detected. An invalid result suggests the presence of inhibitors. Recollection and re-testing is recommended in the case of an invalid result. CDC COVID-19 criteria for testing on human specimens and clinical management guidance information are available at the CDC Coronavirus Disease 2019 (COVID-19) webpage under ? Information for Healthcare Professionals? (https://www.cdc.gov/coronavirus/2019-ncov/hcp/index.html) Additional information about this and other EUA tests can be found in provider and patient fact sheets at the following FDA website: https://www.fda.gov/medical-devices/gobkxeqjwvi-piewwfr-2363-toddw-74-lfweprjic- use-a fftzpfapdbvjx-jpghwdm-ppkmclo/althr-vaxwfzwobqo-nbbm SARS-CoV-2 RNA Source Nasal [facility] Specimen from nose (specimen) Other / Unknown 12/25/2019 8:48 AM EST 12/26/2019 1:09 AM EST Narrative Resulting Agency Comment Spec In Lab Caitlin Lopez MD MOLECULAR ORDERABLES Performing Organization Address City/State/[facility] Co de Phone Number [facility] [place] [address] documented in this encounter Visit Diagnoses Not on filedocumented in this encounter Care Teams Nurse Aide Relationship Specialty Start Date End Date Talisha Treviño MD [address] [place] [address] PCP - General Family Medicine 12/05/17 10/27/20 documented as of this encounter
--- OUTSIDE RECORDS SUMMARY | 2023-10-06 17:04 | XMS_ITS | Encounter Summary ---
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 Name Role Phone Talisha Treviño MD Primary Care Provider [phone] Reason for Visit * Auth/Cert Specialty Diagnoses / Procedures Referred By Contac t Referred To Contact Diagnoses GERD (gastroesophageal reflux disease) recurrent hiatal hernia Post-Op monitoring Procedures PRO LAP, ESOPHAGUS, OTHER PROC PRO LAP, ESOPHAGUS, OTHER PROC PRO UPPER GI ENDOSCOPY, DIAGNOSTIC LAPAROSCOPIC REVISION OF BECCA FUNDOPLASTY (WRVU *) LAPAROSCOPIC TAKEDOWN PREVIOUS BECCA (WRVU *) EGD, UPPER GI ENDOSCOPY MODIFIER, HIATAL HERNIA Referral ID Status Reason Start Date Expiration Date Visits Re quested Visits Authorized [id number] 1 1 Encounter Details Date Type Department Care Team (Late st Contact Info) Description 06/25/2019 11:09 AM EDT Anesthesia Event [place] [address] Lakshmi Elise MD [facility] [address] [place] [address] Anesthesia Record Procedure Summary Procedure Name Responsible Anesthesiologist Anesthesia Start Time Anesthesia Stop Time LAPAROSCOPIC REVISION OF BECCA FUNDOPLASTY (WRVU 48.75) (Abdomen) Lakshmi Elise MD 06/25/19 1109 06/25/19 1356 Events Date Time Event Comment 06/25/2019 1037 1109 AN Verify 1109 Start 1115 An Start Data 1121 An Induction 1123 An Intubation 1132 Anesthesia Ready 1207 An Data Art Pulse ox malfuc tion 1225 Airway Problems Reverse T be rg reversed for pulmonary assessment. No breath sounds on left. ETT pulled back to 18 cm for diminished breath sounds on left. Surgeon and MDA aware 1247 Quick Note EGD by surgical pathologist 1254 Break/Relief In I assumed ca re for Break Relief before which we: 1. Identified the patient 2. Identified the responsible provider(s) 3. Reviewed the pertinent medical history 4. Discussed the surgical plan and course 5. Reviewed intra-op anesthesia management and issues during anesthesia 6. Set expectations for the relief (and/or post-procedure) period 7. Allowed opportunity for questions and acknowledgement of understanding LAKSHMI ELISE MD 1318 Quick Note Bougie out @ SR 1328 Break/Relief Out 1344 Extubation/LMA Out 1350 an stop data 1356 Recovery or ICU Handoff Vaishali ent care was transferred to the destination unit staff after review of the patient's medical history, current anesthetic/surgical status and plan, according to the Provider Handoff Checklist. 1356 Stop Meds Name Total IV Lidocaine 40 mg Propofol 140 mg Propofol INF 357.86 mg Rocuronium 50 mg Ondansetron 4 mg Dexamethasone 8 mg Neostigmine 3 mg Glycopyrrolate 0.4 mg HYDROmorphone 1.5 mg ceFAZolin (Ancef) 2g in dextrose 5% 100 mL (2 x 1g/50mL premix bags) IV 2 g lactated ringers infusion 1,000 mL * Agents Name O2 Air N2O Sevoflurane (et) O2 Auxiliary Flowmeter 1 * Blood No blood administrations on file. Lines, Drains, and Airways Type Details Placement Removal Incision 09/11/16; 0734; abdo men; laparoscopic punctures (specify); LDA not present upon assessment; 10/12/21 (LDA cleanup utility RA#[id number]); 1715 (LDA cleanup utility RA#[id number]) 09/11/16 0734 by Bianka Mccabe RN 10/12/21 1715 by Lalitha Rosales (RETIRED) Peripheral IV Line - Single Lumen 06/25/19; 1027; metacarpal vein (top of hand), left; [id number] catheter system; 20 gauge; Concepción Miles; distraction, intradermal injection; no longer indicated, removed per policy/procedure, catheter/device intact, site care per policy/procedure; 06/28/19; 1600 06/25/19 1027 by Tammie Loya RN 06/28/19 1600 by Sandrine Morton RN NG/OG Tube 06/25/19; 1125; orogastric; 18 Fr; mouth; Secured; low continuous suction; 06/25/19; 1330 06/25/19 1125 by Angelic Ponce CRNA 06/25/19 1330 by Angelic Ponce CRNA (RETIRED) Peripheral IV Line - Single Lumen 06/25/19; 1132; metacarpal vein (top of hand), right; [id number]-[id number] catheter system; 18 gauge; YESSI Yadav; (under GA); 0; painful with flush, pt doesn't need two IV's, other IV patent; site symptomatic; 06/26/19; 0100 06/25/19 1132 by Angelic Ponce CRNA 06/26/19 0100 by Adelina Chang RN Incision 06/25/19; 1155; abdo men (dressing: mastisol,steri strips and bandaids); laparoscopic puncture (x multiple sites); 10/12/21 (LDA cleanup utility RA#[id number]); 171 (LDA cleanup utility RA#[id number]) 06/25/19 1155 by Ruby Rowan RN 10/12/21 1715 by Lalitha Rosales ETT Mask Ventilation: Ea sy (1); ETT Type: Cuffed; ETT Size: 6.5 mm; Frances Blade: 2; Notes: Asleep, Pre-O2, Stylette; Attempts: 1; Laryngoscopy Grade: 1; ETT Placement Verified By: Auscultation, Capnometry, Visual; Secured at Teeth: 22 cm; Inserted by: YESSI Yadav; Removal Date: 06/25/19; Removal Time: 1344 06/25/19 1225 by Angelic Ponce CRNA 06/25/19 1344 by Angelic Ponce CRNA documented in this encounter Social History Tobacco Use Types Packs/Day Years [...] on file documented as of this encounter OR Notes * Anesthesia Postprocedure Evaluation - Lakshmi Elise MD - 06/25/2019 3:09 PM EDT Department of Anesthesiology Post-procedure Note Patient: Ruby Sprague Procedure Summary Date: 06/25/19 Room / Location: [address] MAIN OR Anesthesia Start: 1109 Anesthesia Stop: 1356 Procedures: LAPAROSCOPIC REVISION OF BECCA FUNDOPLASTY (WRVU *) (N/A Abdomen) LAPAROSCOPIC TAKEDOWN PREVIOUS BECCA (WRVU *) (N/A Abdomen) EGD, UPPER GI ENDOSCOPY (N/A ) MODIFIER, HIATAL HERNIA (N/A Abdomen) Diagnosis: (recurrent hiatal hernia) Surgeon: César Barron MD Responsible Provider: Lakshmi Elise MD Anesthesia Type: general ASA Status: 2 All Anesthesia Providers: Anesthesiologist: Lakshmi Elise MD DESK TOP PUBLISHER: Angelic Ponce CRNA Vitals Value Taken Time BP 144/76 06/25/2019 2:44 PM Temp 36 ??C (96.8 ??F) 06/25/2019 1:51 PM Pulse 99 06/25/2019 2:44 PM Resp SpO2 99 % 06/25/2019 2:44 PM Pain Level Patient Location: PACU/[facility] Level of Consciousness: Conscious but Sleepy Pain Management: Satisfactory Analgesia PONV: None Cardiovascular Status: At Baseline Respiratory Status: At Baseline Postoperative Fluid Status: Intravascular EUvolemia Possible Anesthetic Complications: NONE apparent at time of evaluation Final Primary Anesthesia Type: General (The anesthetic type performed was the same as planned.) Comments: * Anesthesia Preprocedure Evaluation - Lakshmi Elise MD - 06/25/2019 10:37 AM EDT Images from the original note were not included. Pre-Anesthesia Evaluation for: Ruby Sprague a 39 y.o. female. Procedure(s): LAPAROSCOPIC REVISION OF BECCA FUNDOPLASTY (WRVU *) LAPAROSCOPIC TAKEDOWN PREVIOUS BECCA (WRVU *) EGD, UPPER GI ENDOSCOPY MODIFIER, HIATAL HERNIA Patient Active Problem List Diagnosis ??? Chronic bilateral low back pain without sciatica ??? GERD (gastroesophageal reflux disease) Past Medical History: Diagnosis Date ??? Anxiety ??? Asthma ??? Back spasm ??? GERD (gastroesophageal reflux disease) ??? Hiatal hernia ??? HTN (hypertension) ??? Umbilical hernia Past Surgical History: Procedure Laterality Date ??? PRO LAP, ESOPHAGOGAST FUNDOPLASTY N/A 09/09/2016 LAPAROSCOPIC BECCA FUNDOPLASTY (WRVU 18.1) performed by César Barron MD at [facility] MAIN OR ??? PRO UPPER GI ENDOSCOPY, BIOPSY N/A 07/30/2016 EGD WITH BIOPSY (WRVU 2.49) performed by Jovani Treviño MD at [facility] ENDOSCOPY ??? UMBILICAL HERNIA REPAIR Social History Tobacco Use ??? Smoking status: Light Tobacco Smoker Packs/day: 0.25 Types: Cigarettes ??? Smokeless tobacco: Never Used ??? Tobacco comment: 5 per day, will be starting patches Substance Use Topics ??? Alcohol use: No Social History Substance and Sexual Activity Drug Use No No Known Allergies Medications: MAR and/or home medications have been reviewed. Physical Exam: Most Recent Vitals: 06/25/19 1009 BP: 121/78 Pulse: 87 Resp: 16 Temp: 36.7 ??C (98.1 ??F) SpO2: 100% Body mass index is 28.42 kg/m??. Height: 147.3 cm (4' 10) Weight: 61.7 kg (136 lb) Airway Assessment: Mallampati: II TM distance: >3 FB Neck ROM: full Cardiovascular Assessment: Pulmonary Assessment: Dental Assessment: (+) upper dentures Misc Assessment: IV access: Peripheral line Anesthesia Plan: ASA 2 general, with a(n) intravenous induction 39 y.o. female with a history of HTN (controlled on meds) and GERD scheduled for: Procedure(s): LAPAROSCOPIC REVISION OF BECCA FUNDOPLASTY (WRVU *) LAPAROSCOPIC TAKEDOWN PREVIOUS BECCA (WRVU *) EGD, UPPER GI ENDOSCOPY MODIFIER, HIATAL HERNIA Previous anesthetics without issue- 09/09/16 Lap Becca, Mac 3, grade 1 view, no PONV Tobacco: 1/2 PPD GERD: on Protonix Plan GA with routine monitors- ETT. Plans and risks reviewed. Questions answered. Region - Other Informed Consent: Anesthetic plan and risks discussed with patient. Plan discussed with DESK TOP PUBLISHER and attending. PAT Clinic Note documented in this encounter Plan of Treatment Not on file documented as of this encounter Visit Diagnoses Not on filedocumented in this encounter Administered Medications Inactive Administered Medications - up to 3 most recent administrations Medication Order MAR Action Action Date Dose Rate Site ceFAZolin (Ancef) 2g in dextrose 5% 100 mL (2 x 1g/50mL premix bags) IV 2 g, Intravenous, 30 MIN PRE-OP, 1 dose, On Tue06/25/19 at 1100, Administer over 30 Minutes, Total dose of ceFAZolin 2 grams, administered using two ceFAZolin 1g/50mL IV bags. Infuse each ceFAZolin 1g/50mL bag over 30 minutes (100 ml/hr) for total infusion time of 60 minutes. On the MAR, document administration of first bag using New Bag (1 of 2) MAR action for dose of 1g. On the APR, document administration of second bag using Next Bag (2 of 2) MAR action for dose of 1g (resulting in total dose of 2g)., Indication for (Active or Suspected): Prophylaxis Given 06/25/2019 11:49 AM EDT 2 g dexamethasone (DECADRON) injection PRN, Starting on Tue06/25/19 at 1133, Until Tue06/25/19 at 1356, Anesthesia Intra-op, Routine Given 06/25/2019 11:33 AM EDT 8 mg glycopyrrolate (ROBINUL) multi-dose injection PRN, Starting on Tue06/25/19 at 1333, Until Tue06/25/19 at 1356, Anesthesia Intra-op, Routine Given 06/25/2019 1:33 PM EDT 0.4 mg HYDROmorphone (DILAUDID) injection PRN, Starting on Tue06/25/19 at 1109, Until Tue06/25/19 at 1356, Anesthesia Intra-op, Routine Given 06/25/2019 12:36 PM EDT 0.5 mg Given 06/25/2019 11:58 AM EDT 0.5 mg Given 06/25/2019 11:09 AM EDT 0.5 mg lactated ringers infusion 1,000 mL, at 100 mL/hr, Intravenous, CONTINUOUS, Starting on Tue06/25/19 at 1100, Until Tue06/25/19 at 1450, Day of Surgery (Day of Procedure) New Bag 06/25/2019 1:56 PM EDT Rate/Dose Verify 06/25/2019 10:34 AM EDT 100 mL /hr New Bag 06/25/2019 10:30 AM EDT 1,000 mLs 100 mL/hr lidocaine (PF) (XYLOCAINE) 100 mg/5 mL (2 %) injection PRN, Starting on Tue06/25/19 at 1121, Until Tue06/25/19 at 1356, Anesthesia Intra-op, Routine Given 06/25/2019 11:21 AM EDT 40 mg neostigmine (BLOXIVERZ) injection PRN, Starting on Tue06/25/19 at 1333, Until Tue06/25/19 at 1356, Anesthesia Intra-op, Routine Given 06/25/2019 1:33 PM EDT 3 mg ondansetron (ZOFRAN) injection PRN, Starting on Tue06/25/19 at 1330, Until Tue06/25/19 at 1356, Anesthesia Intra-op, Routine Given 06/25/2019 1:30 PM EDT 4 mg propofol (DIPRIVAN) 10 mg/mL bolus injection (Anesthesia) PRN, Starting on Tue06/25/19 at 1121, Until Tue06/25/19 at 1356, Anesthesia Intra-op Given 06/25/2019 11:21 AM EDT 140 mg propofol (DIPRIVAN) infusion CONTINUOUS PRN, Starting on Tue06/25/19 at 1102, Until Tue06/25/19 at 1356, Anesthesia Intra-op, Routine New Bag 06/25/2019 11:32 AM EDT 50 mcg/kg/min 18.5 mL/hr rocuronium (ZEMURON) multi-dose injection PRN, Starting on Tue06/25/19 at 1121, Until 06/25/19 at 1356, Anesthesia Intra-op, Routine Given 06/25/2019 12:06 PM EDT 10 mg Given 06/25/2019 11:21 AM EDT 40 mg documented in this encounter Care Teams Light Rail Operator Relationship Specialty Start Date End Date Talisha Treviño MD [address] [place] [address] PCP - General Family Medicine 12/05/17 10/27/20 documented as of this encounter
--- OUTSIDE RECORDS SUMMARY | 2023-10-06 17:04 | XMS_ITS | Encounter Summary ---
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 Off Saw Operator Name Role Phone Talisha Treviño MD Primary Care Provider [phone] Reason for Visit * Auth/Cert Specialty Diagnoses [...] Expiration Date Visits Re quested Visits Authorized [id number] 1 1 Encounter Details Date Type Department Care Team (Late st Contact Info) Description 06/25/2019 10:06 AM EDT - 06/25/2019 2:04 PM EDT Surgery [place] [id number] Mariaelena Godinez MD [facility] [place] [address] LAPAROSCOPIC REVISION OF BECCA FUNDOPLASTY (WRVU 48.75) Social History Tobacco Use Types Packs/Day Years [...] Sign Reading Time Taken Comments Blood Pressure 116/47 06/25/2019 1:51 PM EDT Pulse 90 06/25/2019 1:51 PM EDT Temperature 36 ??C (96.8 ??F) 06/25/2019 1:51 PM EDT Respiratory Rate 16 06/25/2019 10:09 AM EDT Oxygen Saturation 97% 06/25/2019 1:51 PM EDT Inhaled Oxygen Concentration - - Weight 61.7 kg (136 lb) 06/25/2019 10:09 AM EDT Height 147.3 cm (4' 10) 06/25/2019 10:09 AM EDT Body Mass Index 28.59 06/28/2019 [...] PM Mariaelena Godinez MD General [facility] at [facility] Arrive at: Extension Work Instructor Area [phone] Future Orders Complete By Madalyn Walker standard [EQ135 Custom] As directed Process Instructions: Scheduling Instructions: Comments: Ruby Sprague [address] [place] [id number] Telephone Information: Diagnosis: Recent surgery with Unsteady gait Significant weakness, ataxia or gait abnormality Patient's: Hgt: 4'11Wgt : 141 lbs VENDOR: [facility] Ordering: Front wheel walker [facility] room #: 318a cadence- dc today Questions: [...] HOLIDAYS: ASK FOR THE GENERAL SURGERY RESIDENT INSTRUCTIONAL COORDINATOR IF ANY OF THE ABOVE OCCUR. Activity [...] post Becca diet, as instructed by the cyber workforce developer and manager in the hospital for a period of [...] at the General Surgery Outpatient Clinic - Extension Work Instructor 4L, on Tuesday, August 01, 2019 at 3:20pm. You will receive a letter in the mail confirming the appointment date and time. Your follow-up is very important to us. Please call [phone] if you do not hear from us [...] Talisha Treviño MD [address] / [facility] [address] documented in this encounter Discharge Instructions * Discharge Instructions* Margaret Rios PA - 06/28/2019 1:55 PM EDT Scheduled Appointments: Future Appointments and Orders Future Appointments and Orders Future Appointments Provider Department Dept Phone 08/01/2019 3:20 PM Mariaelena Godinez MD General Surgery at [facility] Arrive at: Extension Work Instructor Area 4L [phone] Instructions Given to Patient at Discharge: Call your doctor if you develop: Fever greater than 101.3 degrees Farenheit (38.5 degrees Celcius), chills, nausea or vomiting. Alsocall if you develop severe pain not relieved by your prescribed oral pain medicine. CALL THE GENERAL SURGERY CLINIC DURING WORKING HOURS AT , OR CALL AFTERCLINIC HOURS, WEEKENDS AND HOLIDAYS: ASK FOR THE GENERAL SURGERY RESIDENT INSTRUCTIONAL COORDINATOR IF ANY OF THE ABOVE OCCUR. Activity [...] post Becca diet, as instructed by the cyber workforce developer and manager in the hospital for a period of [...] at the General Surgery Outpatient Clinic - Extension Work Instructor 4L, on Tuesday, August 01, 2019 at 3:20pm. You will receive a letter in the mail confirming the appointment date and time. Your follow-up is very important to us. Please call [phone] if you do not hear from us [...] through Care Everywhere. * Becca Fundoplication: Post-op (Bahraini) * Becca Fundoplication Surgery: General Info (Bahraini) documented in this encounter Medications at Time [...] as of this encounter Progress Notes * Sandrine Morton RN - 06/28/2019 3:59 PM EDT Patient alert and oriented x 4. Discharge instructions reviewed with patient at this time, all questions answered. Peripheral IV x 2 removed per COMPLIANCE PROFESSIONAL, cath tips intact. Patient tachycardic 100-120's at [...] Patient requested walker for use at home, registered nurse hh case manager notified. [facility] delivered walker prior to discharge. Incision sitesCDI, PA removed bandaids prior to discharge. Patient left unit via wheelchair with COMPLIANCE PROFESSIONAL. Fiance to transport patient home at this time. Patient to follow up with PCP tomorrow. * Vale Solis RN - 06/28/2019 1:33 PM EDT Office of Care Management/Discharge Planning Note Care reviewed with primary medical team (Service: Gen Surg) and discussed in interdisciplinary rounds. Medical record reviewed. Patient to tn home via private car. Walker ordered through [facility]. No other services needed. Care Management will continue to monitor progress, follow for continuity of care, and assist with discharge planning. 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 A letter describing our affiliations was reviewed with them and they were educated about their right to choose where referrals are placed. Patient requests referral to : [facility] for walker Expected date of discharge: now. Referral routed to the Oven Laborer for matching with agency/vendor and to provide [...] not allowed list for 3 full weeks. Vegetable Preparer and patient discussed all foods on the allowed not allowed list in great detail. Patient had a list of questions, public relations writer answered all questions patient had. Discussed incorporating supplemental shakes for additional calories and protein consumption. Vegetable Preparer will also provide 2 Boost Plus shakes [...] soda after 3 days of her procedure. Vegetable Preparer encouraged patient to avoid soda for 3 weeks and if any concern, to check with her PA. Patient expressed good understanding. Patient consumed cream of rice cereal, and apple juice for breakfast. Vegetable Preparer collected patient???s diet appropriate lunch choices to promote and encourage PO Intake with foods patient likes. Encouraged strained soup, patient states that she does not have a tracer powder blender at home. Suggested pre made broth soup [...] consulted in the interim. NAVIN Crook Pager #[phone] * Margaret Rios PA - 06/26/2019 7:46 [...] urine upon arriving to unit; ambulated to BR with 2 assist/FWW. Abdominal lap sites x6 are clean, dry and steri strips intact. See flowsheet for further assessments. Ptoriented to room and call rock. Call rock within reach. Will continue to monitor. Kris [...] quietly with even and unlabored respirations. PACU residential tech notified. Labs ordered. Will continue to monitor. [...] with her today the entire time in [id number] conversation regarding these issues PMH: Past Medical History: Diagnosis Date ??? Anxiety ??? Asthma ??? Back spasm ??? GERD (gastroesophageal reflux disease) ??? Hiatal hernia ??? HTN (hypertension) ??? Umbilical hernia PSH: Past Surgical History: Procedure Laterality Date ??? PRO LAP, ESOPHAGOGAST FUNDOPLASTY N/A 09/09/2016 LAPAROSCOPIC BECCA FUNDOPLASTY (WRVU 18.1) performed by Mariaelena Godinez MD at [facility] MAIN OR ??? PRO UPPER GI ENDOSCOPY, BIOPSY N/A 07/30/2016 EGD WITH BIOPSY (WRVU 2.49) performed by Jovani Treviño MD at [facility] ENDOSCOPY Medications: No current facility-administered medications on [...] file Gets together: Not on file Attends zoroastrianism service: Not on file Active member of [...] Outcome: Ongoing (Interventions Implemented as Appropriate) 06/26/19 145 Interdisciplinary Rounds/Family Conf Participants nursing;physician;patient Problem: Nausea/Vomiting [...] adequately. Abdominal lap sites with steri strips RIDE OPERATOR and c/d/i. Patients pain adequately controlled, see [...] file: MEDICARE Secondary Insurance on file: MEDICAID [place] Primary care provider on file: Talisha Treviño MD [phone] Advance Directive on file and Code Status: <no information>, Full Code HAS ADVANCED DIRECTIVE, REQUESTED COPY. MOTHER SPEAKS FOR DAUGHTER Patient???s Functional Status: bedrest, independent prior Living Situation:lives with velasquez, and mother lives [place] [address] [facility]. Mother and velasqueze will be with her 24-[address] [facility] [address] [facility] [address] Supports:Mother and velasqueze Assessment: Patient with no apparent RNCM/SW needs at this time. No housing, transportation, insurance, resources concerns identified at this time. Supports in place to achieve a safe post-hospital transition. No identified barriers to accessing necessary care and/or follow-up after discharge. Plan: Patient to d/c to home via private car tomorrow if pain controlled and medically ready. solar installer pv/Tax Manager Public will continue to follow patient???s progress and remain available if situation changes for coordination of care, psychosocial support and/or discharge planning. Vale Solis RN Pager [phone] * Op Note - Mariaelena Godinez MD - 06/26/2019 1:43 PM EDT [facility] Operative Note Patient Name: Ruby Sprague : [id number] MR#: [id number] Case Date: 06/25/2019 Surgeon: Surgeon(s) and Role: [...] and reformed a fundoplication over a 60 Icelandic bougie there were no complications. Details of [...] the esophagus and thiswas encircled with a Sebree drain was was held in place using [...] direction posterior to the esophagus a 60 Icelandic bougie was passed by anesthesia down the [...] is irrigated excellent hemostasis was assured the Sebree drain was cut and removed the liver [...] Impairment, Risk/Actual (Adult) Intervention: Promote/Optimize Nutrition 06/26/19 5447 Nutrition Interventions Oral Nutrition Promotion physical activity [...] drainage. Patient's pain level high throughout shift 8-11/23, but she states that it is tolerable [...] Operative Note Patient Name: Ruby Sprague : [id number] MR#: [id number] Case Date: 06/25/2019 Surgeon: Surgeon(s) and Role: [...] recurrent hiatal hernia Upper GI Endoscopy, Diagnostic (22219) Yes 06/25/2019 11:14 AM EDT recurrent hiatal hernia Unlisted Laparoscopic Procedure Esophagus (79459) Yes 06/25/2019 11:14 AM EDT recurrent hiatal hernia Unlisted Laparoscopic Procedure Esophagus (17971) Yes 06/25/2019 11:14 AM EDT recurrent hiatal hernia ABORH RECHECK STATUS STAT 06/25/2019 9:59 AM EDT HC ABO-MICROTITER STAT 06/25/2019 9:5 9 AM EDT ABO/RH TYPING STAT 06/25/2019 9:59 AM EDT ANTIBODY SCREEN STAT 06/25/2019 9:59 AM EDT documented in this encounter Results * (ABNORMAL) Differential, Automated (06/28/2019 7:21 AM EDT) Neutrophil % 62.7 % [facility] Neutrophil Absolute 5.66 1.70 - 6.10 x10(3)/ L [facility] Lymph % 23.1 % [facility] Lymphocytes Abs 2.1 0.9 - 3.2 x10(3)/[facility] Monocyte % 11.2 % [facility] Monocyte Abs 1.0(H) 0.3 - 0.9 x10(3)/[facility] Eos % 2.1 % [facility] Eosinophils Abs 0.2 0.0 - 0.4 x10(3)/[facility] Basophil % 0.7 % [facility] Baso Absolute 0.1 0.0 - 0.1 x10(3)/[facility] Immature Gran % 0.20 % [facility] Comment: Immature granulocytes(IG's)percentage and absolute count will include metamyelocytes, myelocytes, and promyelocytes. Blood smears from CBCs yielding IG's will be scanned manually for concordance. If this scan disagrees with the automated IG or if promyelocytes are noted, a manual differential will be performed. Immature Gran Absolute 0.02 0.00 - 0.04 x10(3)/[facility] Blood specimen (specimen) 06/28/2019 7:21 AM EDT 06/28/2019 7:26 AM EDT Narrative Resulting Agency Comment Spec In Lab Margaret VARNER HEMATOLOGY ORDERABLE S [facility] [place] [address] * (ABNORMAL) Hemogram (06/28/2019 7:21 AM EDT) White Blood Cell 9.0 4.0 - 9.5 x10(3)/[facility] Red Blood Cell 4.38 4.00 - 5.21 x10(6)/[facility] Hemoglobin 9.0(L) 11.7 - 15.5 gm/dL [facility] Hematocrit 29.7(L) 35.7 - 45.8 % [facility] Mean Cell Volume 67.8(L) 82.6 - 94.4 fL [facility] Mean Cell Hemoglobin 20.5(L) 27.1 - 32.0 pg [facility] Mean Cell Hemoglobin Concentration 30.3(L) 31.7 - 35.0 gm/dL [facility] Platelet 384(H) 145 - 357 x10(3)/[facility] RDW Standard Deviation 48.1(H) 37.0 - 46.0 fL [facility] RDW coefficient of variation 19.8(H) 11.5 - 14.1 % [facility] Mean Platelet Volume 9.4 7.6 - 12.9 fL [facility] NRBC% auto 0.0 % [facility] NRBC Absolute 0.000 0.000 - 0.000 x10(3)/[facility] Blood specimen (specimen) 06/28/2019 7:21 AM EDT 06/28/2019 7:26 AM EDT Narrative Resulting Agency Comment Spec In Lab Margaret VARNER HEMATOLOGY ORDERABLE S [facility] [place] [address] * Phosphorus (06/28/2019 7:21 AM EDT) Phosphorus 4.0 2.5 - 4.5 mg/dL [facility] Comment:result rechecked-sabrina Blood specimen (specimen) 06/28/2019 7:21 AM EDT 06/28/2019 7:26 AM EDT Narrative Resulting Agency Comment Spec In Lab Mariaelena Godinez MD CHEMISTRY ORDERABLE S [facility] [address] * Magnesium (06/28/2019 7:21 AM EDT) Pathologist [facility] Magnesium 0.86 0.69 - 1.07 mmol/L [facility] Blood specimen (specimen) 06/28/2019 7:21 AM EDT 06/28/2019 7:26 AM EDT Narrative Resulting Agency Comment Spec In Lab Mariaelena Godinez MD CHEMISTRY ORDERABLE S Performing Organization Address [facility] Co de Phone Number [facility] [place] [address] * (ABNORMAL) Basic Metabolic Panel (non-fasting) (06/28/2019 7:21 AM EDT) [facility] Glucose 99 65 - 199 mg/dL [facility] Comment:Diabetes: >=200 mg/d L plus symptoms Blood Urea Nitrogen 7(L) 8 - 18 mg/dL [facility] Creatinine 0.55(L) 0.70 - 1.20 mg/dL [facility] Sodium 138 135 - 145 mmol/L [facility] Potassium 2.9(Criti navneet) 3.5 - 5.0 mmol/L [facility] Comment: Called by: sabrina, Read back by: Ruby Morton, Date/Time:06/28/19 08:12. Please note: ??Patients with WBC >100,000 may have falsely elevated Potassium levels. ??For accurate Potassium quantification in these patients send serum separator tube (gold top) for subsequent determinations. ??Contact the Clinical Chemistry Laboratory if there are any questions. Chloride 99 98 - 107 mmol/L [facility] Carbon Dioxide 26 22 - 31 mmol/L [facility] Anion Gap 13 5 - 15 mmol/L [facility] Calcium 9.1 8.5 - 10.5 mg/dL [facility] Est Glomerular Filtration Rate 116 >=60 mL/min/1. 73 m?? [facility] Comment: The eGFR was calculated using the CKD-EPI equation. As with all creatinine based estimates of kidney function, eGFR values calculated with the CKD-EPI equation are not accurate in patients with acute kidney failure, extremes of body mass or the acutely ill. [email or web address] eGFR 135 >=60 mL/min/1. 73 m?? [facility] Comment: The eGFR was calculated using the CKD-EPI equation. As with all creatinine based estimates of kidney function, eGFR values calculated with the CKD-EPI equation are not accurate in patients with acute kidney failure, extremes of body mass or the acutely ill. [email or web address] Blood specimen (specimen) 06/28/2019 7:21 AM EDT 06/28/2019 7:26 AM EDT Narrative Resulting Agency Comment Spec In Lab Mariaelena Godinez MD CHEMISTRY ORDERABLE S [facility] [place] [address] * CT Angiogram Chest for Pulmonary Embolus [...] Phosphorus (06/27/2019 8:11 AM EDT) Pathologist [facility] Phosphorus 2.2(L) 2.5 - 4.5 mg/dL [facility] Blood specimen (specimen) Venous Draw / Unknown 06/27/2019 8:11 AM EDT 06/27/2019 8:35 AM EDT Narrative Resulting Agency Comment Spec In Lab Atif Mendez MD CHEMISTRY ORDERABLES [facility] [place] [address] * Magnesium (06/27/2019 8:11 AM EDT) Magnesium 0.74 0.69 - 1.07 mmol/L [facility] Blood specimen (specimen) Venous Draw / Unknown 06/27/2019 8:11 AM EDT 06/27/2019 8:35 AM EDT Narrative Resulting Agency Comment Spec In Lab Atif Mendez MD CHEMISTRY ORDERABLES Performing Organization Address [facility] Co de Phone Number [facility] [place] [address] * Troponin (06/27/2019 8:11 AM EDT) [facility] Troponin-T <0.01 0.00 - 0.00 ng/mL [facility] Comment: The 99th percentile for Troponin T is less than 0.01 ng/mL, any detectable cTnT concentration using this assay should be considered elevated. According to the third universal definition of myocardial infarction the following criteria with a clinical presentation consistent with acute myocardial ischemia meets the diagnosis for a myocardial infarction (MO). Detection of a rise and/or fall of cTnT, with at least one value greater than the 99th percentile (> or = 0.01) and with at least one of the following ?? Symptoms of ischemia ?? New or presumed new significant EL-gsqnyiv-N wave (ST-T) changes or new left bundle [...] additional sample may be indicated. Reference: Third [place] Definition of Myocardial Infarction. Journal of the [place] [employer] 2012;60:1581-98 Blood specimen (specimen) 06/27/2019 8:11 AM EDT 06/27/2019 8:35 AM EDT Narrative Resulting Agency Comment Spec In Lab Mariaelena Godinez MD CHEMISTRY ORDERABLE S Performing Organization Address [facility] Co de Phone Number [facility] [place] [address] * (ABNORMAL) Differential, Automated (06/27/2019 8:11 AM EDT) Neutrophil % 68.3 % [facility] Neutrophil Absolute 7.46(H) 1.70 - 6.10 x10(3)/[facility] Lymph % 20.0 % [facility] Lymphocytes Abs 2.2 0.9 - 3.2 x10(3)/[facility] Monocyte % 10.1 % [facility] Monocyte Abs 1.1(H) 0.3 - 0.9 x10(3)/[facility] Eos % 0.6 % [facility] Eosinophils Abs 0.1 0.0 - 0.4 x10(3)/[facility] Basophil % 0.5 % [facility] Baso Absolute 0.0 0.0 - 0.1 x10(3)/[facility] Immature Gran % 0.50 % [facility] Comment: Immature granulocytes(IG's)percentage and absolute count will include metamyelocytes, myelocytes, and promyelocytes. Blood smears from CBCs yielding IG's will be scanned manually for concordance. If this scan disagrees with the automated IG or if promyelocytes are noted, a manual differential will be performed. Immature Gran Absolute 0.05(H) 0.00 - 0.04 x10(3)/[facility] Blood specimen (specimen) 06/27/2019 8:11 AM EDT 06/27/2019 8:35 AM EDT Narrative Resulting Agency Comment Spec In Lab Margaret VARNER HEMATOLOGY ORDERABLE S [facility] [place] [address] * (ABNORMAL) Hemogram (06/27/2019 8:11 AM EDT) White Blood Cell 10.9(H) 4.0 - 9.5 x10(3)/mc L [facility] Red Blood Cell 4.13 4.00 - 5.21 x10(6)/[facility] Hemoglobin 8.3(L) 11.7 - 15.5 gm/dL [facility] Hematocrit 28.3(L) 35.7 - 45.8 % [facility] Mean Cell Volume 68.5(L) 82.6 - 94.4 fL [facility] Mean Cell Hemoglobin 20.1(L) 27.1 - 32.0 pg [facility] Mean Cell Hemoglobin Concentration 29.3(L) 31.7 - 35.0 gm/dL [facility] Platelet 415(H) 145 - 357 x10(3)/[facility] RDW Standard Deviation 48.4(H) 37.0 - 46.0 fL [facility] RDW coefficient of variation 20.0(H) 11.5 - 14.1 % [facility] Mean Platelet Volume 10.3 7.6 - 12.9 [facility] NRBC% auto 0.0 % [facility] NRBC Absolute 0.000 0.000 - 0.000 x10(3)/[facility] Blood specimen (specimen) 06/27/2019 8:11 AM EDT 06/27/2019 8:35 AM EDT Narrative Resulting Agency Comment Spec In Lab Margaret VARNER HEMATOLOGY ORDERABLE S [facility] [place] [address] * (ABNORMAL) Basic Metabolic Panel (non-fasting) (06/27/2019 8:11 AM EDT) Glucose 111 65 - 199 mg/dL [facility] Comment:Diabetes: >=200 mg/d L plus symptoms Blood Urea Nitrogen 5(L) 8 - 18 mg/dL [facility] Creatinine 0.65(L) 0.70 - 1.20 mg/dL [facility] Sodium 140 135 - 145 mmol/L [facility] Potassium 2.7(Criti navneet) 3.5 - 5.0 mmol/L [facility] Comment: Results rechecked Called by: tamy, Read back by: Laurel Ayoub, Date/Time:06/27/19 09:21. Please note: ??Patients with WBC >100,000 may have falsely elevated Potassium levels. ??For accurate Potassium quantification in these patients send serum separator tube (gold top) for subsequent determinations. ??Contact the Clinical Chemistry Laboratory if there are any questions. Chloride 104 98 - 107 mmol/L [facility] Carbon Dioxide 25 22 - 31 mmol/L [facility] Anion Gap 11 5 - 15 mmol/L [facility] Calcium 8.8 8.5 - 10.5 mg/dL [facility] Est Glomerular Filtration Rate 110 >=60 mL/min/1. 73 m?? [facility] Comment: The eGFR was calculated using the CKD-EPI equation. As with all creatinine based estimates of kidney function, eGFR values calculated with the CKD-EPI equation are not accurate in patients with acute kidney failure, extremes of body mass or the acutely ill. [email or web address] eGFR 128 >=60 mL/min/1. 73 m?? [facility] Comment: The eGFR was calculated using the CKD-EPI equation. As with all creatinine based estimates of kidney function, eGFR values calculated with the CKD-EPI equation are not accurate in patients with acute kidney failure, extremes of body mass or the acutely ill. [email or web address] Blood specimen (specimen) 06/27/2019 8:11 AM EDT 06/27/2019 8:35 AM EDT Narrative Resulting Agency Comment Spec In Lab Mariaelena Godinez MD CHEMISTRY ORDERABLE S [facility] [place] [address] * EKG 12 Lead (06/27/2019 7:21 AM EDT) Ventricular rate 109 BPM MUSE SYSTEM Atrial Rate 109 BPM MUSE SYSTEM P-R Interval 162 ms MUSE SYSTEM QRS Duration 80 ms MUSE SYSTEM Q-T Interval 328 ms MUSE SYSTEM QTC Calculated (Bezet) 441 ms MUSE SYSTEM Calculated P [place] 49 degrees MUSE SYSTEM Calculated R [place] 17 degrees MUSE SYSTEM Calculated T [place] -64 degrees MUSE SYSTEM INTERPRETATION Sinus tachycardia ST & T wave abnormality, consider anterolateral ischemia Abnormal ECG When compared with ECG of 06-OCT-2016 09:47, ST & T wave inversion now evident in Anterolateral leads I personally reviewed the tracing and edited the fellows interpretation Confirmed by fellow SenserJose Carlos ([id number]) on 06/27/2019 1:44:51 PM Confirmed by Kiera Woodard ([id number]) on 06/27/2019 3:12:50 PM MUSE SYSTEM 06/27/2019 7:21 AM EDT 06/27/2019 3:12 PM EDT Atif Mendez MD ECG ORDERABLES MUSE SYSTEM * Scan, Peripheral Blood (06/26/2019 11:36 AM EDT) Pathologist [facility] Plat estimate Increased [facility] RBC Morphology Abnormal [facility] Microcyte 1-5 /HPF [facility] Hypochromia Slight [facility] Ovalocytes 1-5 /HPF [facility] Blood specimen (specimen) 06/26/2019 11:36 AM EDT 06/26/2019 11:50 AM EDT Narrative Resulting Agency Comment Spec In Lab Margaret VARNER HEMATOLOGY ORDERABLE S [facility] [place] [address] * (ABNORMAL) Differential, Automated (06/26/2019 11:36 AM EDT) [facility] Neutrophil % 77.7 % [facility] Neutrophil Absolute 11.02(H) 1.70 - 6.10 x10(3)/[facility] Lymph % 11.0 % [facility] Lymphocytes Abs 1.6 0.9 - 3.2 x10(3)/[facility] Monocyte % 10.6 % [facility] Monocyte Abs 1.5(H) 0.3 - 0.9 x10(3)/[facility] Eos % 0.1 % [facility] Eosinophils Abs 0.0 0.0 - 0.4 x10(3)/[facility] Basophil % 0.1 % [facility] Baso Absolute 0.0 0.0 - 0.1 x10(3)/[facility] Immature Gran % 0.50 % [facility] Comment: Immature granulocytes(IG's)percentage and absolute count will include metamyelocytes, myelocytes, and promyelocytes. Blood smears from CBCs yielding IG's will be scanned manually for concordance. If this scan disagrees with the automated IG or if promyelocytes are noted, a manual differential will be performed. Immature Gran Absolute 0.07(H) 0.00 - 0.04 x10(3)/[facility] Blood specimen (specimen) 06/26/2019 11:36 AM EDT 06/26/2019 11:50 AM EDT Narrative Resulting Agency Comment Spec In Lab Margaret VARNER HEMATOLOGY ORDERABLE S [facility] [place] [address] * (ABNORMAL) Hemogram (06/26/2019 11:36 AM EDT) White Blood Cell 14.2(H) 4.0 - 9.5 x10(3)/[facility] Red Blood Cell 4.14 4.00 - 5.21 x10(6)/[facility] Hemoglobin 8.3(L) 11.7 - 15.5 gm/dL [facility] Hematocrit 28.2(L) 35.7 - 45.8 % [facility] Mean Cell Volume 68.1(L) 82.6 - 94.4 fL [facility] Mean Cell Hemoglobin 20.0(L) 27.1 - 32.0 pg [facility] Mean Cell Hemoglobin Concentration 29.4(L) 31.7 - 35.0 gm/dL [facility] Platelet 417(H) 145 - 357 x10(3)/mc L [facility] RDW Standard Deviation 48.2(H) 37.0 - 46.0 fL [facility] RDW coefficient of variation 20.0(H) 11.5 - 14.1 % [facility] Mean Platelet Volume 9.7 7.6 - 12.9 fL [facility] NRBC% auto 0.0 % [facility] NRBC Absolute 0.000 0.000 - 0.000 x10(3)/mc L [facility] Blood specimen (specimen) 06/26/2019 11:36 AM EDT 06/26/2019 11:50 AM EDT Narrative Resulting Agency Comment Spec In Lab Margaret VARNER HEMATOLOGY ORDERABLE S [facility] [place] [address] * Scan, Peripheral Blood (06/26/2019 3:39 AM EDT) Plat estimate Increased [facility] RBC Morphology Abnormal [facility] Microcyte 1-5 /HPF [facility] Hypochromia Slight [facility] Ovalocytes 6-10 /HPF [facility] Bernardo Cells 1-5 /HPF [facility] Blood specimen (specimen) 06/26/2019 3:39 AM EDT 06/26/2019 4:38 AM EDT Narrative Resulting Agency Comment Spec In Lab Atif Mendez MD HEMATOLOGY ORDERABLE S [facility] [address] * (ABNORMAL) Differential, Automated (06/26/2019 3:39 AM EDT) Neutrophil % 83.9 % [facility] Neutrophil Absolute 12.93(H) 1.70 - 6.10 x10(3)/ L [facility] Lymph % 6.9 % [facility] Lymphocytes Abs 1.1 0.9 - 3.2 x10(3)/ L [facility] Monocyte % 8.4 % [facility] Monocyte Abs 1.3(H) 0.3 - 0.9 x10(3)/ L [facility] Eos % 0.0 % [facility] Eosinophils Abs 0.0 0.0 - 0.4 x10(3)/[facility] Basophil % 0.1 % [facility] Baso Absolute 0.0 0.0 - 0.1 x10(3)/ L [facility] Immature Gran % 0.70 % [facility] Comment: Immature granulocytes(IG's)percentage and absolute count will include metamyelocytes, myelocytes, and promyelocytes. Blood smears from CBCs yielding IG's will be scanned manually for concordance. If this scan disagrees with the automated IG or if promyelocytes are noted, a manual differential will be performed. Immature Gran Absolute 0.11(H) 0.00 - 0.04 x10(3)/ L [facility] Blood specimen (specimen) 06/26/2019 3:39 AM EDT 06/26/2019 4:38 AM EDT Narrative Resulting Agency Comment Spec In Lab Atif Mendez MD HEMATOLOGY ORDERABLE S [facility] [place] [address] * (ABNORMAL) Hemogram (06/26/2019 3:39 AM EDT) White Blood Cell 15.4(H) 4.0 - 9.5 x10(3)/mc L [facility] Red Blood Cell 4.01 4.00 - 5.21 x10(6)/mc L [facility] Hemoglobin 8.2(L) 11.7 - 15.5 gm/dL [facility] Hematocrit 28.2(L) 35.7 - 45.8 % [facility] Mean Cell Volume 70.3(L) 82.6 - 94.4 fL [facility] Mean Cell Hemoglobin 20.4(L) 27.1 - 32.0 pg [facility] Mean Cell Hemoglobin Concentration 29.1(L) 31.7 - 35.0 gm/dL [facility] Platelet 419(H) 145 - 357 x10(3)/mc L [facility] RDW Standard Deviation 49.9(H) 37.0 - 46.0 fL [facility] RDW coefficient of variation 19.8(H) 11.5 - 14.1 % [facility] Mean Platelet Volume 10.3 7.6 - 12.9 fL [facility] NRBC% auto 0.0 % [facility] NRBC Absolute 0.000 0.000 - 0.000 x10(3)/mc L [facility] Blood specimen (specimen) 06/26/2019 3:39 AM EDT 06/26/2019 4:38 AM EDT Narrative Resulting Agency Comment Spec In Lab Atif Mendez MD HEMATOLOGY ORDERABLE S Performing Organization Address City/[facility]/ZIP Co de Phone Number [facility] [place] [address] * (ABNORMAL) Basic Metabolic Panel (non-fasting) (06/26/2019 3:39 AM EDT) Glucose 144 65 - 199 mg/dL [facility] Comment:Diabetes: >=200 mg/d L plus symptoms Blood Urea Nitrogen 11 8 - 18 mg/dL [facility] Creatinine 0.64(L) 0.70 - 1.20 mg/dL [facility] Sodium 139 135 - 145 mmol/L [facility] Potassium 3.5 3.5 - 5.0 mmol/L [facility] Comment: Please note: ??Patients with WBC >100,000 may have falsely elevated Potassium levels. ??For accurate Potassium quantification in these patients send serum separator tube (gold top) for subsequent determinations. ??Contact the Clinical Chemistry Laboratory if there are any questions. Chloride 109(H) 98 - 107 mmol/L [facility] Carbon Dioxide 21(L) 22 - 31 mmol/L [facility] Anion Gap 9 5 - 15 mmol/L [facility] Calcium 8.5 8.5 - 10.5 mg/dL [facility] Est Glomerular Filtration Rate 111 >=60 mL/min/1. 73 m?? [facility] Comment: The eGFR was calculated using the CKD-EPI equation. As with all creatinine based estimates of kidney function, eGFR values calculated with the CKD-EPI equation are not accurate in patients with acute kidney failure, extremes of body mass or the acutely ill. [email or web address] eGFR 128 >=60 mL/min/1. 73 m?? [facility] Comment: The eGFR was calculated using the CKD-EPI equation. As with all creatinine based estimates of kidney function, eGFR values calculated with the CKD-EPI equation are not accurate in patients with acute kidney failure, extremes of body mass or the acutely ill. [email or web address] Blood specimen (specimen) 06/26/2019 3:39 AM EDT 06/26/2019 4:38 AM EDT Narrative Resulting Agency Comment Spec In Lab Atif Mendez MD CHEMISTRY ORDERABLES [facility] [address] * Phosphorus (06/25/2019 2:52 PM EDT) Pathologist [facility] Phosphorus 3.4 2.5 - 4.5 mg/dL [facility] Blood specimen (specimen) 06/25/2019 2:52 PM EDT 06/25/2019 3:11 PM EDT Narrative Resulting Agency Comment Spec In Lab Mariaelena Godinez MD CHEMISTRY ORDERABLE S Performing Organization Address [facility]/ZIP Co de Phone Number [facility] [place] [address] * Magnesium (06/25/2019 2:52 PM EDT) Pathologist [facility] Magnesium 0.79 0.69 - 1.07 mmol/L [facility] Blood specimen (specimen) 06/25/2019 2:52 PM EDT 06/25/2019 3:11 PM EDT Narrative Resulting Agency Comment Spec In Lab Mariaelena Godinez MD CHEMISTRY ORDERABLE S Performing Organization Address City/[facility]/ZIP Co de Phone Number [facility] [place] [address] * (ABNORMAL) Basic Metabolic Panel (non-fasting) (06/25/2019 2:52 PM EDT) Glucose 281(H) 65 - 199 mg/dL [facility] Comment:Diabetes: >=200 mg/d L plus symptoms Blood Urea Nitrogen 13 8 - 18 mg/dL [facility] Creatinine 0.88 0.70 - 1.20 mg/dL [facility] Sodium 138 135 - 145 mmol/L [facility] Potassium 3.6 3.5 - 5.0 mmol/L [facility] Comment: Please note: ??Patients with WBC >100,000 may have falsely elevated Potassium levels. ??For accurate Potassium quantification in these patients send serum separator tube (gold top) for subsequent determinations. ??Contact the Clinical Chemistry Laboratory if there are any questions. Chloride 106 98 - 107 mmol/L [facility] Carbon Dioxide 20(L) 22 - 31 mmol/L [facility] Anion Gap 12 5 - 15 mmol/L [facility] Calcium 8.6 8.5 - 10.5 mg/dL [facility] Est Glomerular Filtration Rate 82 >=60 mL/min/1. 73 m?? [facility] Comment: The eGFR was calculated using the CKD-EPI equation. As with all creatinine based estimates of kidney function, eGFR values calculated with the CKD-EPI equation are not accurate in patients with acute kidney failure, extremes of body mass or the acutely ill. [email or web address] eGFR 95 >=60 mL/min/1. 73 m?? [facility] Comment: The eGFR was calculated using the CKD-EPI equation. As with all creatinine based estimates of kidney function, eGFR values calculated with the CKD-EPI equation are not accurate in patients with acute kidney failure, extremes of body mass or the acutely ill. [email or web address] Blood specimen (specimen) 06/25/2019 2:52 PM EDT 06/25/2019 3:11 PM EDT Narrative Resulting Agency Comment Spec In Lab Mariaelena Godinez MD CHEMISTRY ORDERABLE S [facility] [address] * ABORH Recheck Status (06/25/2019 9:59 AM EDT) ABORH Type Recheck Completed [facility] Blood specimen (specimen) 06/25/2019 9:59 AM EDT 06/25/2019 10:01 AM EDT Narrative Resulting Agency Comment Spec In Lab Mariaelena Godinez MD BLOOD BANK LAB ORDE RABLES Performing Organization Address City/[facility]/ZIP Co de Phone Number [facility] [place] [address] * Antibody screen (06/25/2019 9:59 AM EDT) Ab Screen Interp Negative [facility] Expires at 2359 on: 06/28/2019 [facility] Blood specimen (specimen) 06/25/2019 9:59 AM EDT 06/25/2019 10:01 AM EDT Narrative Resulting Agency Comment Spec In Lab Mariaelena Godinez MD BLOOD BANK LAB JOSÉ TOLLIVER Performing Organization Address [facility] Co de Phone Number [facility] [place] [address] * ABO/Rh Typing (06/25/2019 9:59 AM EDT) ABORH Type A Pos [facility] Blood specimen (specimen) 06/25/2019 9:59 AM EDT 06/25/2019 10:01 AM EDT Narrative Resulting Agency Comment Spec In Lab aMriaelena Godinez MD BLOOD BANK LAB JOSÉ TOLLIVER Performing Organization Address [facility] Co de Phone Number [facility] [place] [address] documented in this encounter Visit Diagnoses Not [...] Given 06/26/2019 12:28 AM EDT 650 mg albuterol (PROVENTIL) nebulizer solution 2.5 mg 2.5 mg, Nebulization, 4 TIMES DAILY, First dose on Tue06/25/19 at 1800, Until Discontinued Given 06/28/2019 1:39 PM EDT 2.5 mg Given 06/28/2019 9:25 AM EDT 2.5 mg Given 06/27/2019 9:21 PM EDT 2.5 mg BUpivacaine (PF) (MARCAINE) 0.25 % (2.5 mg/mL) injection ONCE PRN, Starting on Tue06/25/19 at 1330, Until Tue06/28/19 at 1821, Intra-Operative (Intra-Procedure), Routine Given 06/25/2019 1:30 PM EDT 16 mLs 19- Surgical Site cyclobenzaprine (Flexeril) tablet 10 mg 10 mg, Oral, 2 TIMES DAILY, First dose on Tue06/26/19 at 0900, Until Discontinued, Routine Given 06/28/2019 9:25 AM EDT 10 mg Given 06/27/2019 9:21 PM EDT 10 mg Given 06/26/2019 8:59 AM EDT 10 mg diazePAM (Valium) tablet 5 mg 5 mg, Oral, 2 TIMES DAILY PRN, Starting on Tue06/26/19 at 0000, Until Tue06/28/19 at 1821, Muscle spasm, Routine Given 06/28/2019 [...] Given 06/26/2019 8:59 AM EDT 25 mg ondansetron (ZOFRAN) injection 4 mg 4 mg, [...] Gamez RN)1805 (Given - Provider: Ruby Cowan RN)2024 (Given - Provider: Adelina Mills RN) 0920 (Given - Provider: Alia Ramos RN)1308 (Given - Provider: Alia Ramos RN)1834 (Given - Provider: Alia Ramos RN)212 (Given - Provider: Gucci Elmore RN) 0925 (Given - Provider: Sandrine Morton, DAVID)1339 (Given - Provider: Sandrine Morton, DAVID) cyclobenzaprine (Flexeril) tablet 10 mg 10 mg, Oral, 2 TIMES DAILY, First dose on Tue06/26/19 at 0900, Until Discontinued, Routine 0859 (Given - Provider: Macy Gamez RN)2100 (Not Given - Provider: Adelina Mills RN - Reason: Patient/family refused) 09 (Not Given - Provider: Alia Ramos RN - Reason: Patient/family refused)212 (Given - Provider: Gucci Elmore, DAVID) 0925 (Given - Provider: Sandrine Morton, DAVID) hydroCHLOROthiazide (Hydrodiuril) tablet 25 mg 25 mg, Oral, DAILY, First dose on Tue06/26/19 at 0900, Until Discontinued, Routine 0859 (Given - Provider: Macy Gamez, DAVID) 0920 (Given - Provider: Alia Ramos RN - Comment: BP 155/87, okay per PA) 0925 (Given - Provider: Sandrine Morton RN) potassium chloride ER (K-Dur/Klor-Con) tablet 20 mEq 20 mEq, Oral, 3 TIMES DAILY, 6 doses, First dose on Tue06/27/19 at 1000, Last dose on Tue06/28/19 at 2100, 20 mEq tablet may be dissolved in water for administration, Routine 1030 (Given - Provider: Alia Ramos RN)1450 (Given - Provider: Alia Ramos, DAVID)212 (Given - Provider: Gucci Elmore, DAVID) 09 (Given - Provider: Sandrine Morton RN)153 (Given - Provider: Sandrine Morton RN) sodium chloride 0.9 % (flush) flush 5 mL 5 mL, Intravenous, 2 TIMES DAILY, First dose on Tue06/25/19 at 2100, Until Discontinued, Recovery (Recovery-Hospital Unit), Routine 0028 (Given - Provider: Adelina Everett RN)09 (Given - Provider: Macy Gamez, DAVID)2024 (Given - Provider: Adelina Mills RN) 09 (Given - Provider: Alia Ramos RN)212 (Given - Provider: Gucci Elmore, DAVID) 0926 (Given - Provider: Sandrine Morton, DAVID) [...] PRN, Starting on Tue06/25/19 at 1743, Until Tue06/28/19 at 1821, Pain, Mild Pain 1-3, Maximum dose of acetaminophen is 4000 mg from all sources in 24 hours. Should be given concomitantly if other Analgesics are ordered., Routine 0028 (Given - Provider: Adelina Everett RN)1804 (Given - Provider: uRby Cowan RN) 1307 (Given - Provider: Alia Ramos, DAVID) diazePAM (Valium) tablet 5 mg 5 mg, Oral, 2 TIMES DAILY PRN, Starting on Tue06/26/19 at 0000, Until Tue06/28/19 at 1821, Muscle spasm, Routine 1030 (Given - Provider: Sandrine Morton RN) hydrALAZINE (APRESOLINE) injection 5 mg 5 mg, [...] Warning Vesicant/Irritant Medication , Radiology Contrast, Routine 1710 (Given - Provider: Maggie Kraus) lidocaine (XYLOCAINE) 10 mg/mL (1 %) injection 3 mg 3 mg (0.3 mL), Subcutaneous, ONCE PRN, 1 dose, Starting on Tue06/25/19 at 1743, Until Bev [...] Unit) 2127 (See Alternative - Provider: Gucci Elmore, RN) ondansetron (Zofran) tablet 4 mg(Linked Group [...] Routine 2127 (Not Given - Provider: Gucci Elmore, RN - Reason: Patient/family refused - Comment: pt states gives her h.a.) oxyCODONE (Roxicodone) (1 mg/mL) oral liquid 5 mg 5 mg, Oral, EVERY 4 HOURS PRN, Starting on 06/25/19 at 1631, Until Bev 06/28/19 at 1821, Pain, Moderate pain 4-10, Routine 0028 (Given - Provider: Adelina Everett RN)0659 (Given - Provider: Adelina Everett RN)1229 (Given - Provider: Macy Gamez, DAVID)1804 (Given - Provider: Ruby Cowan, DAVID)2212 (Given - Provider: Adelina Mills RN) 0208 (Given - Provider: Adelina Mills RN)0614 (Given - Provider: Adelina Mills RN)1030 (Given - Provider: Alia Ramos, DAVID)1450 (Given - Provider: Alia Ramos RN)1944 (Given - Provider: Gucci Elmore, RN) 0221 (Given - Provider: Gucci Elmore, RN)0931 (Given - Provider: Sandrine Morton, DAVID)1520 (Given - Provider: Darling Connelly, DAVID) prochlorperazine (COMPAZINE) injection 10 mg 10 mg, Intravenous, EVERY 6 HOURS PRN, Starting on 06/25/19 at 2128, Until Bev 06/28/19 at 1821, Nausea, Routine 0048 (Given - Provider: Adelina Everett RN) 213 (Given - Provider: Gucci Elmore RN) sodium chloride 0.9 % (flush) flush 5-20 [...] Unit) documented in this encounter Care Teams Stave Log Cut Off Saw Operator Relationship Specialty Start Date End Date Talisha Treviño MD [address] [place] [address] PCP - General Family Medicine 12/05/17 10/27/20 documented as of this encounter
--- OUTSIDE RECORDS SUMMARY | 2023-10-06 17:05 | XMS_ITS | Encounter Summary ---
Author Organization [facility] [place] [address] Care Team Providers Care Stab Setter And Driller Name Role Phone Shital Brooke APRN Primary Care Provider [phone] Reason for Visit * Reason Onset Date Comments Other 09/13/2016 Encounter Details Date Type Department Care Team (Late st Contact Info) Description 09/13/2016 Telephone [place] [address] Concepción Michel, RN Other Social History Tobacco Use Types Packs/Day Years Used Date Smoking Tobacco: Every Day Cigarettes Alcohol Use Standard Drinks/Week Comments No 0 (1 standard drink = 0.6 oz pur e alcohol) Sex and Gender Information Value Date Recorded Sex Assigned at Not on file Gender Identity Not on file Sexual Orientation Not on file documented as of this encounter Miscellaneous Notes * Telephone Encounter - Concepción Michel, RN - 09/13/2016 11:27 AM EDT Images from the original note were not included. Nursing Triage - Phone Note DATE OF CALL: 09/13/2016 TIME OF CALL: 11:27 AM PATIENT DATE OF : 1980 CALLER: Pt to the General Surgery Clinic Learning Needs Assessment Reviewed: Yes SUBJECTIVE - I would like to eat more. PERTINENT PAST MEDICAL HISTORY: Pt is s/p Op Note Date of Service: 09/09/2016 3:18 PM César Barron MD General Surgery []Hide copied text []Hover for attribution information [facility] [place] ?? Patient Name: Ruby Sprague DOB: [id number] MR#: [id number] ?? Case Date: 09/09/2016 ?? Surgeon: Surgeon(s) and Role: * César Barron MD - Primary * Atif Mendez MD ?? Preoperative diagnosis: GERD ?? Postoperative diagnosis: GERD ?? Procedure(s) (LRB): LAPAROSCOPIC MOLLY FUNDOPLASTY (WRVU 18.1) (N/A) MODIFIER, HIATAL HERNIA (N/A) ? Indications for Procedure: The patient is a 33-year-old female with long- standing history of gastroesophageal reflux disease. Following appropriate preoperative evaluation and review of her therapeutic options, she has elected to undergo a laparoscopic Molly fundoplication. ?? Operative Findings: The patient was noted to have a small hiatal hernia and a modest amount of paraesophageal scarring. She underwent a 3-stitch, 2.5-cm fundoplication performed over a 60-Romanian bougie. There were no intraoperative complications. ?? NURSING OBJECTIVE/ASSESSMENT: Pt reports that she is tolerating full liquids. I asked her if she has the post molly diet and she states I left it at the hospital. I gave her all the guide lines and put a copy in the mail for her. INTERVENTION/PLAN/ FOLLOW UP: PT will go slow and call with any questions or concerns. She has the guidelines and the diet is in the mail. If your symptoms do not improve, or they worsen, report to your local emergency department. CALLER AGREES: Yes PCP: Shital Brooke APRN documented in this encounter Plan of Treatment Not on file documented as of this encounter Visit Diagnoses Not on filedocumented in this encounter Care Teams Stab Setter And Driller Relationship Specialty Start Date End Date Shital Brooke APRN [facility] [place] [address] PCP - General Family Medicine 07/20/16 12/04/17 documented as of this encounter
--- OUTSIDE RECORDS SUMMARY | 2023-10-06 17:05 | XMS_ITS | Encounter Summary ---
Author Organization Formerly [facility] Address [facility] [place] [address] Care Team Providers Care Prospecting Driller Name Role Phone Shital Brooke JANET Primary Care Provider Encounter Details Date Type Department Care Team (Latest Contact Info) Description 02/25/2017 - 02/25/2017 11:59 PM EST Hospital Encounter Radiology Library at [facility] [place] [address] Leonardo Burris [place] [facility] [place] [address] Discharge Disposition: Home Social History Tobacco Use Types Packs/Day Years Used Date Smoking Tobacco: Every Day Cigarettes Smokeless Tobacco: Current Alcohol Use Standard Drinks/Week Comments No 0 (1 standard drink = 0.6 oz pur e alcohol) Sex and Gender Information Value Date Recorded Sex Assigned at Not on file Gender Identity Not on file Sexual Orientation Not on file documented as of this encounter Medications at Time of Discharge Medication Sig Dispensed Refills Start Date End Date ibuprofen (ADVIL;MOTRIN) 800 mg tablet 800MG = 1 Tablet(s), PO, Three times daily 10/03/2005 omeprazole (PRILOSEC) 20 mg Capsule, Delayed Release(E.C.) Take 1 capsule by mouth daily. 30 capsule 5 11/03/2016 04/07/2017 cyclobenzaprine (FLEXERIL) 5 mg Tablet Take 1-2 tablets by mouth 3 times daily as needed for Muscle spasms. 15 tablet 10/06/2016 04/07/2017 oxyCODONE (ROXICODONE) 5 mg/5 mL Solution Take 5 mLs by mouth every 4 hours as needed for Pain. 20 mL 09/26/2016 04/07/2017 acetaminophen (TYLENOL) 650 mg/20.3 mL Solution Take 20.3 mLs by mouth every 4 hours as needed. 3654 mL 3 09/11/2016 06/28/2019 hydroCHLOROthiazide (HYDRODIURIL) 12.5 mg Tablet Take 12.5 mg by mouth daily. 06/22/2018 amitriptyline (ELAVIL) 100 mg Tablet Take 50 mg by mouth Daily. Reported on 08/25/2016 06/13/2019 meclizine (ANTIVERT) 25 mg Tablet Take 25 mg by mouth Three times a day. 06/22/2018 polyethylene glycol (MIRALAX) 17 gram/dose Powder Take 17-34 g by mouth daily. 850 g 11 07/01/2016 03/28/2017 documented as of this encounter Plan of Treatment Not on file documented as of this encounter Procedures Procedure Name Priority Date/Time Associated Diagnosis Comments FILM LIBRARY STORAGE ONLY DX LOWER EXTREMITY Routine 02/25/2017 12:00 AM EST documented in this encounter Results * Film Library- Storage Only DX Lower Extremity (02/25/2017 12:00 AM EST) Narrative [facility] - 12/05/2017 8:39 AM EDT This exam is for storage only and is auto-finalizing. Leonardo Burris APRN IMG FILM LIBRARY ORDERABLES Performing Organization Address City/State/[facility] Co de Phone Number [place], [place] documented in this encounter Visit Diagnoses Not on filedocumented in this encounter Care Teams Prospecting Driller Relationship Specialty Start Date End Date Shital Brooke APRN [address] [place] [address] PCP - General Family Medicine 07/20/16 12/04/17 documented as of this encounter
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
--- OUTSIDE RECORDS SUMMARY | 2023-10-06 17:05 | XMS_ITS | Encounter Summary ---
Author Organization [facility] Address [facility] Chris [address] [address] Care Team Providers Care Associate Director Regulatory Affairs Name Role Phone Shital Brooke APRN Primary Care Provider [phone] Reason for Visit * Reason Comments Chest Pain Encounter Details Date Type Department Care Team (Late st Contact Info) Description 10/06/2016 9:38 AM EDT - 10/06/2016 12:33 PM EDT [place] [address] Dione Silveira MD [facility] [address] [place] [address] Atypical chest pain; Chest pain, unspecified type; Epigastric pain Discharge Disposition: Home Social History Tobacco Use [...] Sign Reading Time Taken Comments Blood Pressure 132/64 10/06/2016 12:31 PM EDT Pulse 72 10/06/2016 12:31 PM EDT Temperature 36.8 ??C (98.2 ??F) 10/06/2016 9:47 AM ED T Respiratory Rate 16 10/06/2016 12:31 PM EDT Oxygen Saturation 98% 10/06/2016 12:31 PM EDT Inhaled Oxygen Concentration - - Weight 68 kg (150 lb) 10/06/2016 9:47 AM EDT Height 147.3 cm (4' 10) 10/06/2016 9:47 AM EDT Body Mass Index 31.35 10/06/2016 9:47 AM EDT documented in this encounter Discharge Instructions * Discharge Instructions* Dione Silveira MD - 10/06/2016 12:16 PM EDT We will let Dr. Barron's office know about your ongoing discomfort. Please keep your appointment next week Return if your pain worsens, if you develop shortness of breath, feel sick, develop a fever or haveother medical concerns Follow up with your PCP Continue to increase your activity - gentle activity will help you get back to your baseline. documented in this encounter Medications at Time of Discharge Medication Sig Dispensed Refills Start Date End Date ibuprofen (ADVIL;MOTRIN) 800 mg tablet 800MG = 1 Tablet(s), PO, Three times daily 10/03/2005 cyclobenzaprine (FLEXERIL) 5 mg Tablet Take 1-2 [...] 07/01/2016 03/28/2017 documented as of this encounter ED Notes * Cholo Richards 10/06/2016 11:35 AM EDT Ruby Sprague is an 36 y.o. female who presents to the ED with: Chief Complaint Patient presents with ??? Chest Pain I saw this patient 10/06/2016 at ~ 11:35 AM HPI Ruby Sprague is a 36 y.o. female with a PMH significant for GERD and recent Molly fundoplication for antireflux surgery in late August of this year who presents to the Emergency Department with upper abdominal and chest pain. The patient states that pain has been ongoing ever since she had the procedure on 09/09. She states the pain was improved with the oxycodone she was prescribed after the procedure, but now that she has run out, the pain has worsened. She has been taking some ibuprofen without significant relief. The pain is located over the epigastric area, substernal area, and left side of the chest with radiation up to the left shoulder. She states the pain is relatively constant and does not have aggravating or alleviating factors. She does not have shortness of breath, palpitations, back or jaw pain. No diaphoresis, nausea, or vomiting. She has called the surgery clinic multiple times. She had not established care with her PCP yet and was instructed to do so. The patient stat es she has a PCP now but has not followed up with her yet. She has a scheduled appointment later this month to follow-up in the surgery clinic. The patient still has some of her Steri-Strips intact from her laboratory procedure and was told to just let them fall off. The patient has no known cardiac history, no known family history of cardiac. She is a smoker and smokes roughly 5 cigarettes per day. The patient does not have hemoptysis, syncope or near-syncope, unilateral leg swelling or pain, a history of DVT or PE, FH of clotting disorders, recent surgery or immobilization and does not take estrogen products. Review of Systems: Review of Systems Constitutional: Negative for chills, diaphoresis and fever. HENT: Negative for rhinorrhea, sore throat and trouble swallowing. Eyes: Negative for visual disturbance. Respiratory: Negative for cough, shortness of breath and wheezing. Cardiovascular: Positive for chest pain. Negative for palpitations and leg swelling. Gastrointestinal: Positive for abdominal pain. Negative for constipation, diarrhea, nausea and vomiting. Genitourinary: Negative for dysuria and hematuria. Musculoskeletal: Negative for back pain and neck pain. Skin: Negative for rash. Neurological: Negative for light-headedness, numbness and headaches. Psychiatric/Behavioral: Negative for agitation and confusion. Patient Vitals for the past 8 hrs: BP Temp Temp src Pulse Resp SpO2 Height Weight 10/06/16 0947 145/78 36.8 ??C (98.2 ??F) Oral 80 18 97 % (!) 147.3 cm (4' 10) 68 kg (150 lb) 10/06/16 0945 145/78 - - 80 - 97 % - - I have reviewed the vital signs, which demonstrates AVSS Physical Exam: Physical Exam Constitutional: She is oriented to person, place, and time. She appears well- developed and well-nourished. No distress. HENT: Head: Normocephalic and atraumatic. Right Ear: External ear normal. Left Ear: External ear normal. Nose: Nose normal. Mouth/Throat: Oropharynx is clear and moist. No oropharyngeal exudate. Eyes: Conjunctivae are normal. Pupils are equal, round, and reactive to light. Neck: Normal range of motion. No thyromegaly present. Cardiovascular: Normal rate, regular rhythm, normal heart sounds and intact distal pulses. No murmur heard. Pulmonary/Chest: Effort normal and breath sounds normal. No respiratory distress. She has no wheezes. Abdominal: Soft. Bowel sounds are normal. She exhibits no distension. No significant tenderness throughout. She does have 5 Steri-Strips still in place with wounds that appear well healing Musculoskeletal: Normal range of motion. She exhibits no edema or tenderness. Lymphadenopathy: She has no cervical adenopathy. Neurological: She is alert and oriented to person, place, and time. No cranial nerve deficit. Skin: Skin is warm and dry. She is not diaphoretic. ED Course: - Patient was evaluated and discussed with Dr. Silveira - Medications, allergies and past medical history reviewed ED Course: - Medications and fluid administered: Tylenol, Flexeril - I have reviewed the labs, which are significant for: no leukocytosis or anemia, CO2 21, normal LFTs and lipase, and negative troponin - I have reviewed the imaging, which is significant for: unremarkable CXR - I have reviewed the EKG, which is significant for: NSR with rate of [address] or T wavechanges Assessment and Plan: MDM: 36 y.o. female who presents for upper abdominal and chest pain following her niece's fundoplication that was done roughly one month ago. The patient has continued to have pain following stoppingher narcotics. Given she is having chest pain, an EKG was performed and labs were sent including a troponin. LFTs and lipase were also sent given her complaints of some epigastric pain. Her labs are overall reassuring and her EKG did not show any acute signs of ischemia. A chest x-ray was performedgiven her recent procedure and does not show any evidence of diaphragmatic hernia or tracking of mediastinal air. The patient is overall well-appearing and hemodynamically stable. She was treated with Tylenol and was also given a Flexeril, which somewhat improved her pain. She was instructed to follow up as planned next week with her surgery team here at [facility] and to also follow up with her primary care provider within the next 2 days to make sure she is improving. The patient was amenable to this plan. She was given a prescription for Flexeril to use at home. Return precautions were verbally discussed with the patient. The patient expressed understanding that they could come back to the ED at any time and agreed to the follow-up plan. Plan: - Discharge home - Tylenol, NSAIDs prn - Rx Flexeril - Follow up with PCP, surgery - Return precautions were discussed with the pt This note was written using Cli[employer] dictation software Cholo Richards MD Resident 10/06/16 8572 Associated attestation - Dione Silveira MD - 10/11/2016 10:19 AM EDT The patient was seen in conjunction with Dr. Richards, the resident physician. I have independently performed the jones portions of the history and physical exam. I have reviewed all diagnostic studies personally including labs, imaging studies and EKG's. I have discussed the details of the case with the resident and agree with the assessment and plan as described in the resident note above unless noted otherwise below. Reassuring abd exam, and labs, not short Of breath, pain not c/w ACS - as it was post op and persistent. Agree with plan per Dr. Richards * Jose Nava, RN - 10/06/2016 11:30 AM EDT Pt unable to swollow pills, med changed to fluid. documented in this encounter Plan of Treatment Not on file documented as of this encounter Procedures Procedure Name Priority Date/Time Associated Diagnosis Comments XR CHEST PA AND LATERAL STAT 10/06/2016 10:56 AM EDT HEMOGRAM STAT 10/06/2016 10:07 AM EDT DIFFERENTIAL, AUTOMATED STAT 10/06/2016 10:07 AM EDT GOLD TUBE HOLD STAT 10/06/2016 10:07 AM EDT BLUE TUBE HOLD STAT 10/06/2016 10:07 AM EDT CBC (WITH DIFF) STAT 10/06/2016 10:07 AM EDT TROPONIN STAT 10/06/2016 10:07 AM EDT LIPASE STAT 10/06/2016 10:07 AM EDT HEPATIC FUNCTION PANEL STAT 10/06/2016 10:07 AM EDT BASIC METABOLIC PANEL STAT 10/06/2016 10:07 AM EDT EKG 12-LEAD STAT 10/06/2016 9:47 AM EDT documented in this encounter Results * XR Chest PA & Lateral (Generic) (10/06/2016 10:56 AM EDT) Anatomical Region Laterality Modality Chest N/A Digital Radiogra phy Impressions 10/06/2016 11:03 AM EDT No significant abnormality. Narrative 10/06/2016 11:03 AM EDT EXAMINATION: XR CHEST PA AND LATERAL (GENERIC) CLINICAL HISTORY: pain in mid and left side of chest that has been worsening over the past month. recent nissens fundoplication procedure 1 month ago TECHNIQUE: Standing PA and lateral chest COMPARISON: None FINDINGS: The lungs are clear. The cardiomediastinal silhouette and yusuf appear normal. No pleural effusion, pneumothorax or significant bone abnormality is seen. Procedure Note César Wick MD - 10/06/2016 EXAMINATION: XR CHEST PA AND LATERAL (GENERIC) CLINICAL HISTORY: pain in mid and left side of chest that has beenworsening over the past month. recent nissens fundoplication procedure 1 month ago TECHNIQUE: Standing PA and lateral chest COMPARISON: None FINDINGS: The lungs are clear. The cardiomediastinal silhouette and yusuf appearnormal. No pleural effusion, pneumothorax or significant bone abnormality is seen. IMPRESSION No significant abnormality. Andres Cho MD IMG DX ORDERABLES * Lipase (10/06/2016 10:07 AM EDT) Lipase 17 0 - 60 unit/L [facility] Blood specimen (specimen) Venous Draw / Unknown 10/06/2016 10:07 AM EDT 10/06/2016 10:16 AM EDT Narrative Resulting Agency Comment Spec In Lab Dione Silveira MD CHEMISTRY ORDERABLE S [facility] [place] [address] * Hepatic Function Panel (10/06/2016 10:07 AM EDT) Protein, Total 7.0 6.1 - 8.0 gm/dL [facility] Albumin 4.1 3.2 - 5.2 gm/dL [facility] Aspartate Aminotransferase 13 0 - 30 unit/L [facility] Alanine Aminotransferase 12 0 - 30 unit/L [facility] Alkaline Phosphatase 77 40 - 104 unit/L [facility] Bilirubin, Total 0.2 0.2 - 1.3 mg/dL [facility] Bilirubin, Direct 0.1 0.0 - 0.3 mg/dL [facility] Blood specimen (specimen) Venous Draw / Unknown 10/06/2016 10:07 AM EDT 10/06/2016 10:16 AM EDT Narrative Resulting Agency Comment Spec In Lab Dione Silveira MD CHEMISTRY ORDERABLE S Performing Organization Address [facility]/ZIP Co de Phone Number [facility] [place] [address] * Gold Tube HOLD (10/06/2016 10:07 AM EDT) Gold Hold Sample in lab. [facility] Blood specimen (specimen) No Charge / Unknown 10/06/2016 10:07 AM EDT 10/06/2016 10:14 AM EDT Dione Silveira MD CHEMISTRY ORDERABLE S Performing Organization Address City/[facility] Co de Phone Number [facility] [place] [address] * Differential, Automated (10/06/2016 10:07 AM EDT) Neutrophil % 61.2 % [facility] Neutrophil Absolute 5.29 1.70 - 6.10 x10(3)/[facility] Lymph % 24.8 % [facility] Lymphocytes Abs 2.1 0.9 - 3.2 x10(3)/[facility] Monocyte % 10.9 % [facility] Monocyte Abs 0.9 0.3 - 0.9 x10(3)/[facility] Eos % 1.9 % [facility] Eosinophils Abs 0.2 0.0 - 0.4 x10(3)/[facility] Basophil % 0.9 % [facility] Baso Absolute 0.1 0.0 - 0.1 x10(3)/[facility] Immature Gran % 0.30 % [facility] Comment: Immature granulocytes(IG's)percentage and absolute count will include metamyelocytes, myelocytes, and promyelocytes. Blood smears from CBCs yielding IG's will be scanned manually for concordance. If this scan disagrees with the automated IG or if promyelocytes are noted, a manual differential will be performed. Immature Gran Absolute 0.03 0.00 - 0.04 x10(3)/[facility] Blood specimen (specimen) 10/06/2016 10:07 AM EDT 10/06/2016 10:13 AM EDT Narrative Resulting Agency Comment Spec In Lab Dione Silveira MD HEMATOLOGY ORDERABL ES [facility] [place] [address] * (ABNORMAL) Hemogram (10/06/2016 10:07 AM EDT) White Blood Cell 8.6 4.0 - 9.5 x10(3)/[facility] Red Blood Cell 4.87 4.00 - 5.21 x10(6)/[facility] Hemoglobin 12.1 11.7 - 15.5 gm/dL [facility] Hematocrit 37.1 35.7 - 45.8 % [facility] Mean Cell Volume 76.2(L) 82.6 - 94.4 fL [facility] Mean Cell Hemoglobin 24.8(L) 27.1 - 32.0 pg [facility] Mean Cell Hemoglobin Concentration 32.6 31.7 - 35.0 gm/dL [facility] Platelet 383(H) 145 - 357 x10(3)/ L [facility] RDW Standard Deviation 48.0(H) 37.0 - 46.0 fL [facility] RDW coefficient of variation 17.4(H) 11.5 - 14.1 % [facility] Mean Platelet Volume 10.8 7.6 - 12.9 fL [facility] NRBC% auto 0.0 % [facility] NRBC Absolute 0.000 0.000 - 0.000 x10(3)/mc L [facility] Blood specimen (specimen) 10/06/2016 10:07 AM EDT 10/06/2016 10:13 AM EDT Narrative Resulting Agency Comment Spec In Lab Dione Silveira MD HEMATOLOGY ORDERABL ES [facility] [place] [address] * (ABNORMAL) Basic Metabolic Panel (non-fasting) (10/06/2016 10:07 AM EDT) Glucose 102 65 - 199 mg/dL [facility] Comment:Diabetes: >=200 mg/d L plus symptoms Blood Urea Nitrogen 9 8 - 18 mg/dL [facility] Creatinine 0.66(L) 0.70 - 1.20 mg/dL [facility] Comment: Please note that the pediatric reference intervals supplied above were not validated at [facility]. Results from pediatric patients should be interpreted in conjunction to the patient's age, height and muscle mass. Sodium 143 135 - 145 mmol/L [facility] Potassium 3.7 3.5 - 5.0 mmol/L [facility] Comment: Please note: ??Patients with WBC >100,000 may have falsely elevated Potassium levels. ??For accurate Potassium quantification in these patients send serum separator tube (gold top) for subsequent determinations. ??Contact the Clinical Chemistry Laboratory if there are any questions. Chloride 108(H) 98 - 107 mmol/L [facility] Carbon Dioxide 21(L) 22 - 31 mmol/L [facility] Anion Gap 14 5 - 15 mmol/L [facility] Calcium 9.5 8.5 - 10.5 mg/dL [facility] Est Glomerular Filtration Rate >60 >=60 [facility] Comment: This estimated GFR (eGFR) value was calculated using the MDRD equation which has been validated on patients between the ages of 18 and 70. The MDRD should not be used to assess kidney function in patients < 18 years of age or in patients with extremes of body mass, or in patients with acute kidney failure. This value should be multiplied by 1.2 for patients. For further information please copy and paste the following links into your internet browser. http://Orteq/DHnkdep [email or web address]://Orteq/DHMCnkf Blood specimen (specimen) 10/06/2016 10:07 AM EDT 10/06/2016 10:13 AM EDT Narrative Resulting Agency Comment Spec In Lab Dione Silveira MD CHEMISTRY ORDERABLE S [facility] [place] [address] * Troponin T (10/06/2016 10:07 AM EDT) Troponin-T <0.01 0.00 - 0.00 ng/mL [facility] Comment: The 99th percentile for Troponin T is less than 0.01 ng/mL, any detectable cTnT concentration using this assay should be considered elevated. According to the third universal definition of myocardial infarction the following criteria with a clinical presentation consistent with acute myocardial ischemia meets the diagnosis for a myocardial infarction (NC). Detection of a rise and/or fall of cTnT, with at least one value greater than the 99th percentile (> or = 0.01) and with at least one of the following ?? Symptoms of ischemia ?? New or presumed new significant NK-mznbqis-B wave (ST-T) changes or new left bundle [...] additional sample may be indicated. Reference: Third [place] Definition of Myocardial Infarction. Journal of the [place] [employer] 2012;60:1581-98 Blood specimen (specimen) 10/06/2016 10:07 AM EDT 10/06/2016 10:13 AM EDT Narrative Resulting Agency Comment Spec In Lab Dione Silveira MD CHEMISTRY ORDERABLE S Performing Organization Address [facility] Co de Phone Number [facility] [place] [address] * Blue Tube HOLD (10/06/2016 10:07 AM EDT) Blue Hold Sample in lab. [facility] Blood specimen (specimen) 10/06/2016 10:07 AM EDT 10/06/2016 10:13 AM EDT Dione Silveira MD HEMATOLOGY ORDERABL ES Performing Organization Address [facility] Co de Phone Number [facility] [place] [address] * EKG 12 Lead (10/06/2016 9:47 AM EDT) Ventricular rate 75 BPM MUSE SYSTEM Atrial Rate 75 BPM MUSE SYSTEM P-R Interval 122 ms MUSE SYSTEM QRS Duration 78 ms MUSE SYSTEM Q-T Interval 394 ms MUSE SYSTEM QTC Calculated (Bezet) 439 ms MUSE SYSTEM Calculated P [place] 37 degrees MUSE SYSTEM Calculated R [place] 5 degrees MUSE SYSTEM Calculated T [place] -22 degrees MUSE SYSTEM INTERPRETATION Normal sinus rhythm Minimal voltage criteria for LVH, may be normal variant Nonspecific T wave abnormality Abnormal ECG When compared with ECG of 09-SEP-2016 20:56, Vent. rate has decreased BY ??39 BPM Confirmed by MD ERIN, RAJENDRA ([id number]) on 10/06/2016 6:10:48 PM MUSE SYSTEM 10/06/2016 9:47 AM EDT 10/06/2016 6:10 PM EDT Dione Silveira MD ECG ORDERABLES Performing Organization Address [facility]/ZIP Co de Phone Number MUSE SYSTEM documented in this encounter Visit Diagnoses Diagnosis Atypical chest pain Other chest pain Chest pain, unspecified type Epigastric pain Abdominal pain, epigastric documented in this encounter Administered Medications Inactive Administered Medications - up to 3 most recent administrations Medication Order MAR Action Action Date Dose Rate Site acetaminophen (TYLENOL) 650 mg/20.3 mL oral liquid 1 dose, Starting on Tue10/06/16 at 1146, Until Tue10/06/16 at 1147, JOSE NAVA: cabinet override Given 10/06/2016 11:47 AM EDT 1,000 mg cyclobenzaprine (FLEXERIL) tablet 10 mg 10 mg, Oral, ONCE, 1 dose, On Tue10/06/16 at 1203, STAT Given 10/06/2016 12:03 PM EDT 10 mg documented in this encounter Active and Recently Administered Medications Times are shown in EDT. Scheduled Medication Order 10/04/2016 10/05/2016 10/06/2016 acetaminophen (TYLENOL) tablet 1,000 mg 1,000 mg, Oral, ONCE, 1 dose, On Tue10/06/16 at 1035, Maximum dose of acetaminophen is 4000 mg from all sources in 24 hours., STAT 1035 (Not Given - Pr ovider: Jose Nava RN - Reason: See comment - Comment: pt can not take pills, changed to liquid) cyclobenzaprine (FLEXERIL) tablet 10 mg (COMPLETED) 10 mg, Oral, ONCE, 1 dose, On Tue10/06/16 at 1203, STAT 1203 (Given - Provid er: Jose Nava RN - Comment: med crushed and given with applesauce) No Frequency Medication Order 10/04/2016 10/05/2016 10/06/2016 acetaminophen (TYLENOL) 650 mg/20.3 mL oral liquid (COMPLETED) 1 dose, Starting on Tue10/06/16 at 1146, Until Tue10/06/16 at 1147, JOSE NAVA: cabinet override 1147 (Given - Provid er: Jose Nava RN - Comment: oral route) documented in this encounter Care Teams Associate Director Regulatory Affairs Relationship Specialty Start Date End Date Shital Brooke, [address] [place] [address] PCP - General Family Medicine 07/20/16 12/04/17 documented as of this encounter
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
--- OUTSIDE RECORDS SUMMARY | 2023-10-06 17:05 | XMS_ITS | Encounter Summary ---
Author Organization [facility] Address [facility] [place] [address] Care Team Providers Care Punch Press Feeder Name Role Phone Shital Brooke APRN Primary Care Provider [phone] Reason for Visit * Reason Comments Other Encounter Details Date Type Department Care Team (Late st Contact Info) Description 09/22/2016 Telephone [place] [phone] Lakshmi Duckworth RN Other Social History Tobacco Use Types [...] Telephone Encounter - Lakshmi Duckworth RN - 09/22/2016 2:04 PM EDT Ms. Sprague is s/p lap Molly on 09/09/[address] Barron. She calls to ask if she can eat saltine crackers with butter - advised they would be too dry and would get stuck in her throat even if she chewed them really well. She asks when she can stop crushing her pills - advised that is 4 weeks fromsurgery which would be Oct 07. documented in this encounter Plan of Treatment Not on file documented as of this encounter Visit Diagnoses Not on filedocumented in this encounter Care Teams Punch Press Feeder Relationship Specialty Start Date End Date Shital Brooke, METAL GRINDER [address] [place] [place] [address] PCP - General Family Medicine 07/20/16 12/04/17 documented as of this encounter
--- OUTSIDE RECORDS SUMMARY | 2023-10-06 17:05 | XMS_ITS | Encounter Summary ---
Author Organization [facility] Address [facility] [place] [address] Care Team Providers Care Purchasing Analyst Name Role Phone Edwardo Shital GONZALES Primary Care Provider [phone] Reason for Visit * Reason Onset Date Comments Constipation 08/09/2017 Encounter Details Date Type Department Care Team (Late st Contact Info) Description 08/09/2017 Telephone [place] [phone] Emmanuel Morel RN Constipation Social History Tobacco Use Types Packs/Day Years [...] Telephone Encounter - Hodan Singleton RN - 08/11/2017 1:36 PM EDT Per JANET Neves: reviewed her xray Moderate amount of stool. This does not indicate not having a bowel movement for one month She does not necessarily need a clean out. She can use something over the counter. miralax 1-3 capfuls daily or pericolace 2-4 qhs or dulcolax 2 qhs Returned call to the patient to discuss above. Patient verbalized understanding and agrees with plan. * Telephone Encounter - Hodan Singleton RN - 08/10/2017 9:17 AM EDT Received x-rays from [facility], these were faxed down to be scanned into the patients chart and originals were given to John Garner APRN for her review and to advise. * Telephone Encounter - Emamnuel Morel RN - 08/09/2017 1:42 PM EDT Patient calls complaining of severe constipation. No significant bowel movement for 1 month. Seen recently by urologist, Dr. David Felton in [facility], for removal of kidney stones. After an x-ray showed incidental finding of constipation he prescribed her magnesium citrate. This caused nausea and she couldn't finish it. No BM. Having intermittent abdominal pain. Has tried suppositories and miralax with no effect. Requesting a referral for a surgical clean out under anesthesia. Discussed with John Garner APRN. After reviewing x-ray may recommend clean out with Go-Lytely, but need to see x- ray first X-ray urgently requested from [facility]. Advised patient of above. Patient states she will probably go to ED in [place] to be seen instead. documented in this encounter Plan of Treatment Not on file documented as of this encounter Visit Diagnoses Not on filedocumented in this encounter Care Teams Purchasing Analyst Relationship Specialty Start Date End Date Shital Brooke APRN [address] [place] [address] PCP - General Family Medicine 07/20/16 12/04/17 documented as of this encounter
--- OUTSIDE RECORDS SUMMARY | 2023-10-06 17:05 | XMS_ITS | Encounter Summary ---
Author Organization [facility] Address [facility] [place] [address] Care Team Providers Care Government Affairs Researcher Name Role Phone Shital Brooke APRN Primary Care Provider [phone] Reason for Referral * Consultation (Routine) - Closed Specialty Diagnoses / Procedures Referred By Dayan parker Referred To Contact Otolaryngology Diagnoses Lichen planus Jovani Treviño MD [facility] [place] [address] [facility] Otolaryngology [address] [place] [phone] Referral ID Status Reason Start Date Expiration Date V isits Requested Visits Authorized [id number] Closed Consult, Test & Treat 07/30/2016 07/30/2017 1 1 Encounter Details Date Type Department Care Team (Late st Contact Info) Description 07/30/2016 Orders [place] [address] Jovani Treviño MD [facility] [place] [address] Lichen planus Social History Tobacco Use Types Packs/Day Years [...] Associated Diagnoses Orde r Schedule Referral to ENT Outpatient Referral Routine Lichen planus Ordered: 07/30/2016 documented as of this encounter Visit Diagnoses Diagnosis Lichen planus documented in this encounter Care Teams Government Affairs Researcher Relationship Specialty Start Date End Date Shital Brooke, CASH REGISTER BALANCER [address] [place] [address] PCP - General Family Medicine 07/20/16 12/04/17 documented as of this encounter
--- OUTSIDE RECORDS SUMMARY | 2023-10-06 17:05 | XMS_ITS | Encounter Summary ---
Author Organization [facility] [place] [address] Care Team Providers Care Food Preparation Worker Name Role Phone Talisha Treviño MD Primary Care Provider [phone] Encounter Details Date Type Department Care Team (Late st Contact Info) Description 05/30/2018 Telephone [place] [phone] Kaila Fontanez Social History Tobacco Use Types Packs/Day Years [...] encounter Miscellaneous Notes * Telephone Encounter - Kaila Fontanez - 05/30/2018 8:43 AM EDT Left a VM for PT to call [phone] to re-schedule June 21 appt with Leonardo Burris. documented in this encounter Plan of Treatment Not on file documented as of this encounter Visit Diagnoses Not on filedocumented in this encounter Care Teams Food Preparation Worker Relationship Specialty Start Date End Date Talisha Treviño MD [address] [place] [address] PCP - General Family Medicine 12/05/17 10/27/20 documented as of this encounter
--- OUTSIDE RECORDS SUMMARY | 2023-10-06 17:05 | XMS_ITS | Encounter Summary ---
Author Organization [facility] Address [facility] [address] [place] [address] Care Team Providers Care Pecan Grower Name Role Phone Shital Brooke CARPET CUTTER Primary Care Provider [phone] Encounter Details Date Type Department Care Team (Late st Contact Info) Description 09/27/2016 Telephone [place] [phone] Ricardo Hwang MD [facility] [place] [address] Social History Tobacco Use Types Packs/Day Years [...] encounter Miscellaneous Notes * Telephone Encounter - Ricardo Hwang MD - 09/27/2016 6:45 PM EDT Patient called again today and said that she is in a lot of pain in the chest and neck and the doses I gave her yesterday, did not suffice. She has yet not established care with her PCP and I recommended her to do that. I did not prescribe any more narcotic pain medication and I advised her that ifshe truly is not feeling well and has that much pain then it would be advisable for her to come to ED and get herself checked out to make sure she is alright. She was in agreement with this plan. Ricardo Hwang M.D. PGY2-General Surgery [id number] documented in this encounter Plan of Treatment Not on file documented as of this encounter Visit Diagnoses Not on filedocumented in this encounter Care Teams Pecan Grower Relationship Specialty Start Date End Date Shital Brooke, CARPET CUTTER [address] [place] [address] PCP - General Family Medicine 07/20/16 12/04/17 documented as of this encounter
--- OUTSIDE RECORDS SUMMARY | 2023-10-06 17:05 | XMS_ITS | Encounter Summary ---
Author Organization [facility] [place] [address] Care Team Providers Care Welding Machine Operator Helper Gas Name Role Phone Shital Brooke APRN Primary Care Provider [phone] Encounter Details Date Type Department Care Team (Late st Contact Info) Description 09/21/2016 Telephone [place] [phone] Concepción Michel, RN Social History Tobacco Use Types Packs/Day [...] Telephone Encounter - Concepción Michel, RN - 09/21/2016 1:41 PM EDT Nursing Triage - Phone Note DATE OF CALL: 09/21/2016 TIME OF CALL: 1:41 PM PATIENT DATE OF : 1980 CALLER: Pt to the General surgical clinic Learning Needs Assessment Reviewed: Yes SUBJECTIVE - I would like another prescription for pain. PERTINENT PAST MEDICAL HISTORY: Pt to the [facility] Operative Note ?? Patient Name: Ruby Sprague : [id number] MR#: [id number] ?? Case Date: 09/09/2016 ?? Surgeon: Surgeon(s) [...] to undergo a laparoscopic Molly fundoplication. ?? NURSING OBJECTIVE/ASSESSMENT: PT calling requesting another prescription for oxycodone elixar. Thiswill be the third request for pain prescription. INTERVENTION/PLAN/ FOLLOW UP: Discussed with Dr. Hwang , at this time we will not refill the Roxicodone prescription. PT to take liquid tylenol/ibuprofen use heat and ice. If your symptoms do not improve, or they worsen, report to your local emergency department. CALLER AGREES: Yes PCP: Shital Brooke APRN documented in this encounter Plan of Treatment Not on file documented as of this encounter Visit Diagnoses Not on filedocumented in this encounter Care Teams Welding Machine Operator Helper Gas Relationship Specialty Start Date End Date Sihtal Brooke APRN [address] [place] [address] [place] [address] PCP - General Family Medicine 07/20/16 12/04/17 documented as of this encounter
--- OUTSIDE RECORDS SUMMARY | 2023-10-06 17:05 | XMS_ITS | Encounter Summary ---
Author Organization [facility] [place] [address] Care Team Providers Care Social Media Marketing Manager Name Role Phone Shital Brooke APRN Primary Care Provider [phone] Encounter Details Date Type Department Care Team (Late st Contact Info) Description 03/31/2017 [place] [phone] Hodan Singleton RN Social History Tobacco Use [...] Telephone Encounter - Hodan Singleton RN - 04/01/2017 9:53 AM EST Patient requesting that John write a letter to Medicare stating that she needs a tummy tuck Made patient aware that this is not something that a GI provider normally does and that if anyone she should discuss with her PCP. Patient verbalized understanding. * Telephone Encounter - Hodan Singleton RN - 04/01/2017 9:46 AM EST Patient returned call to the office. This radio script writer returned her call , but was unable to reach her. Left message on patients VM asking her to leave a good time to reach her or to have the guidance secretary put the call through to the RN pager. * Telephone Encounter - Hodan Singleton RN - 03/31/2017 9:33 AM EST Patient calls the office leaving a message on the RN voicemail stating, [please call me. Returned call to patient, unable to reach patient by phone, left message on voicemail to call the office at her convenience. documented in this encounter Plan of Treatment Not on file documented as of this encounter Visit Diagnoses Not on filedocumented in this encounter Care Teams Social Media Marketing Manager Relationship Specialty Start Date End Date Shital Brooke APRN [address] [place] [address] PCP - General Family Medicine 07/20/16 12/04/17 documented as of this encounter
--- OUTSIDE RECORDS SUMMARY | 2023-10-06 17:05 | XMS_ITS | Encounter Summary ---
Author Organization [facility] Address [facility] [address] [place] [address] Care Team Providers Care Rabbit Dresser Name Role Phone Shital Brooke APRN Primary Care Provider Encounter Details Date Type Department Care Team (Latest Contact Info) Description 08/02/2016 9:00 PM EDT Tech [place] [address] Eric Martinez MD [facility] [place] [address] Gastroesophageal reflux disease, esophagitis presence not specified Social History Tobacco Use Types Packs/Day Years Used Date Smoking Tobacco: Every Day Cigarettes Alcohol Use Standard Drinks/Week Comments No 0 (1 standard drink = 0.6 oz pur e alcohol) Sex and Gender Information Value Date Recorded Sex Assigned at Not on file Gender Identity Not on file Sexual Orientation Not on file documented as of this encounter Progress Notes * Eric Martinez MD - 08/02/2016 9:00 PM EDT [id number] WIRELESS pH CAPSULE STUDY AFTER UPPER ENDOSCOPY Ruby Sprague Female, 36 y.o., 1980 , SR None PCP: Shital Brooke APRN STUDY DATES: 07/30/16 to 08/01/16 INTERPRETATION DATE: 08/02/16 PROVIDER: [place] ([id number]) INDICATION Reflux symptoms. Upper endoscopy on 07/30/16 revealed LA grade C esophagitis. NOTE: This study was performed off of medications used to treat acid reflux. METHODS After upper endoscopy where landmarks were visualized and measured, in a supervised setting, and after informed consent, a Petersen pH telemetry capsule was deployed orally and attached to the esophageal wall at 5 cm above the upper border of the LES. No complications were noted during this procedure. FINDINGS Visual inspection of the study shows fluctuations in pH values throughout the study consistent witha technically adequate study. DAY ONE Upright: 7 hours, 58 minutes Supine: 16 hours, 2 minutes Total Number of Reflux Episodes: 37 Upright Position: 23 Supine Position: 14 Reflux Episodes Longer than Five Minutes: 4 Upright: 3 Supine: 1 Duration of Longest Episode: 27 minute(s), supine position Total Distal Esophageal Acid Exposure Time: 2 hours, 20 minute(s). Percent of Total Recording Time: 10.4% Percent of Upright Recording Time: 23.1% Percent of Supine Recording Time: 4.9% Calculated DeMeester Score (normal values are up to 14.72) Day One Calculated DeMeester Score: 34.5 DAY TWO Upright: 8 hours, 3 minutes Supine: 15 hours, 57 minutes Total Number of Reflux Episodes: 74 Upright Position: 24 Supine Position: 50 Reflux Episodes Longer than Five Minutes: 12 Upright: 0 Supine: 12 Duration of Longest Episode: 23 minute(s), supine position Total Distal Esophageal Acid Exposure Time: 3 hours, 12 minute(s). Percent of Total Recording Time: 15.1% Percent of Upright Recording Time: 5.2% Percent of Supine Recording Time: 19.8% Calculated DeMeester Score (normal values are up to 14.72) Day Two Calculated DeMeester Score: 54.3 Gwjjm-Bandn-Eomh (Total) Fraction of Time with pH Less Than 4%: 12.7% Vppkl-Ogfjw-Tzor DeMeester Score (Total): 44.2 Day One Symptoms Association Probability (SAP) for Heartburn: 0% Chest pain: 0% Regurgitation: 96% Day Two SAP for Heartburn: 0% Chest pain: 0% Regurgitation: 100% Qkqmx-Uujjt-Xoik SAP for Heartburn: 0% Chest pain: 0% Regurgitation: 98% IMPRESSION During this recording period, while the patient was not on medications for acid reflux, there was evidence of pathologic acid reflux into the distal esophagus on both day one and day two. Symptom association for regurgitation was elevated and statistically significant. NORMAL VALUES FOR WIRELESS pH CAPSULE STUDY 1. Total number of reflux episodes = less than 50. 2. Number of episodes longer than 5 minutes = less than 3. 3. Acid exposure time Total = less than 5.3% Upright = less than 6.3% Supine = less than 1.2%. ADDENDUM SAP expresses the likelihood that a specific symptom, i.e., heartburn, regurgitation, chest pain, is associated with acid reflux. By convention, SAP values greater than 95% are positive. Eric Martinez, PhD, MD scale assembly set up worker, [facility] [employer] Chief, Section of Gastroenterology and Hepatology [facility] [place] [address] V: [phone] F: [phone] ROXANNE/isabel EC/CC: PCP - fax copy 08/03/16 John Garner APRN - staff msg copy 08/03/16 documented in this encounter Plan of Treatment Not on file documented as of this encounter Visit Diagnoses Diagnosis Gastroesophageal reflux disease, esophagitis presence not specified documented in this encounter Care Teams Rabbit Dresser Relationship Specialty Start Date End Date Shital Brooke APRN [address] [place] [address] PCP - General Family Medicine 07/20/16 12/04/17 documented as of this encounter
--- OUTSIDE RECORDS SUMMARY | 2023-10-06 17:05 | XMS_ITS | Encounter Summary ---
Author Organization [facility] Address [facility] [address] [place] [address] Care Team Providers Care Rn Pool Name Role Phone Shital Brooke APRN Primary Care Provider [phone] Encounter Details Date Type Department Care Team (Late st Contact Info) Description 09/26/2016 Telephone [place] [id number] Ricardo Hwang MD [facility] [place] [address] Social History Tobacco Use Types Packs/Day Years [...] Telephone Encounter - Ricardo Hwang MD - 09/26/2016 8:49 AM EDT Patient called again today and reported that her pain in the chest and back had not gone away. Her cold and cough had gone away and tylenol and ibuprofen was not helping. She also wanted to start eating solid food which I advised her against doing as she had not yet completed her 3 week of Post mirtha diet. I prescribed 20 ml of oxycodone liquid and sent it to her pharmacy and told her that she would have to call her PCP for more pain medications if she needs it. Ricardo Hwang M.D. PGY2-General Surgery [id number] documented in this encounter Plan of Treatment Not on file documented as of this encounter Visit Diagnoses Not on filedocumented in this encounter Care Teams Rn Pool Relationship Specialty Start Date End Date Shital Brooke, FLOORING GRADER [address] [place] [address] PCP - General Family Medicine 07/20/16 12/04/17 documented as of this encounter
--- OUTSIDE RECORDS SUMMARY | 2023-10-06 17:05 | XMS_ITS | Encounter Summary ---
Author Organization [facility] Address [facility] [place] [address] Care Team Providers Care Small Products I Assembler Name Role Phone Shital Brooke APRN Primary Care Provider [phone] Reason for Visit * Auth/Cert Specialty Diagnoses / Procedures Referred By Contac t Referred To Contact Diagnoses GERD (gastroesophageal reflux disease) GERD Procedures PRO LAP, ESOPHAGOGAST FUNDOPLASTY LAPAROSCOPIC BECCA FUNDOPLASTY (WRVU 18.1) MODIFIER, HIATAL HERNIA Referral ID Status Reason Start Date Expiration Date Visits Re quested Visits Authorized [id number] 1 1 Encounter Details Date Type Department Care Team (Late st Contact Info) Description 09/09/2016 12:54 PM EDT Anesthesia Event [place] [address] Helena Spicer MD [facility] [place] [address] Rodri Mathews MD [facility] [place] [address] Anesthesia Record Procedure Summary Procedure Name Responsible Anesthesiologist Anesthesia Start Time Anesthesia Stop Time LAPAROSCOPIC BECCA FUNDOPLASTY (WRVU 18.1) (Abdomen) Helena Spicer MD 09/09/16 1254 09/09/16 1554 Events Date Time Event Comment 09/09/2016 1211 1254 AN Verify 1254 Start 1255 An Start Data 1305 An Induction 1306 An Intubation 1307 Anesthesia Ready 1311 Break/Relief In Helena suero MD 1331 Procedure Start 1341 Break/Relief Out 1350 Quick Note OG and temp pro be out per surgeon request 1449 Quick Note Bougie in 1451 An Data Art Pulse ox not re ading well on ear, moved to nose with improved wave form 1503 Quick Note Bougie out 1508 Break/Relief In Helena suero MD 1538 Procedure Stop 1540 Extubation/LMA Out 1545 an stop data 1552 Recovery or ICU Handoff Vaishali ent care was transferred to the destination unit staff after review of the patient's medical history, current anesthetic/surgical status and plan, according to the Provider Handoff Checklist. 1554 Stop Meds Name Total Midazolam 2 mg fentaNYL 175 mcg Propofol 200 mg Rocuronium 50 mg PHENYLephrine 480 mcg Ondansetron 4 mg Dexamethasone 8 mg Neostigmine 2 mg Glycopyrrolate 0.2 mg ceFAZolin (ANCEF) 3g in dextrose 5% 100 mL 2 g Succinylcholine 120 mg Labetalol 10 mg Propofol INF 146.2 mg lactated Ringers infusion 1,000 mL 1,300 mL * Agents Name O2 Air N2O Sevoflurane (et) * Blood No blood administrations on file. Lines, Drains, and Airways Type Details Placement Removal (RETIRED) Peripheral IV Line - Single Lumen 09/09/16; 1051; basilic vein (medial side of arm), left; euzg-cct-zgyfni catheter system; 20 gauge, 1 in length; DAVID Lopes; intradermal injection, tolerated well, appears comfortable; 0; 09/11/16; 1122 09/09/16 1051 by Renee Almaguer RN 09/11/16 1122 by Stefanie Tesfaye LNA ETT Mask Ventilation: No t Attempted (0); ETT Type: Cuffed; ETT Size: 7 mm; Mac Blade: 3; Notes: Asleep, Pre-O2, RSI, Cricoid Pressure, Stylette; Attempts: 1; Laryngoscopy Grade: 1; ETT Placement Verified By: Auscultation, Capnometry; Secured at Teeth: 21 cm; Inserted by: Bisi; Removal Date: 09/09/16; Removal Time: 1540 09/09/16 1306 by Rodri Mathews MD 09/09/16 1540 by Rodri Mathews MD (RETIRED) Peripheral IV Line - Single Lumen 09/09/16; 1315; other (see comments); 20 gauge; no longer indicated; 09/11/16; 1122 09/09/16 1315 by Rodri Mathews MD 09/11/16 1122 by Stefanie Tesfaye LNA documented in this encounter Social History Tobacco [...] OR Notes * Anesthesia Postprocedure Evaluation - Rodri Mathwes MD - 09/09/2016 5:45 PM EDT [facility] [place] Department of Anesthesiology Post-procedure Note Patient: Ruby Sprague Procedure Summary Date Anesthesia Start Anesthesia Stop Room / Location 09/09/16 1254 1554 [facility] OR 26 / [facility] MAIN OR Procedure Diagnosis Surgeon Responsible Provider LAPAROSCOPIC BECCA FUNDOPLASTY (WRVU 18.1) (N/A Abdomen); MODIFIER, HIATAL HERNIA (N/A ) (GERD) César Barron MD Peters, Julia C, MD All Anesthesia Providers: Anesthesiologist: Helena Spicer MD Hardboard Factory Worker: Rodri Mathews MD Last (1hr) Vitals: BP 161/86 (09/09/16 1730) Temp Pulse 95 (09/09/16 1730) Resp 16 (09/09/16 1730) SpO2 92 % (09/09/16 1730) Patient Location: PACU/[facility] Level of Consciousness: Conscious but Sleepy Pain Management: Satisfactory Analgesia PONV: PONV Resolved with Rx Cardiovascular Status: At Baseline and Hemodynamically Stable Respiratory Status: Supplemental O2 (NC or FM) Postoperative Fluid Status: Intravascular EUvolemia Possible Anesthetic Complications: NONE apparent at time of evaluation Final Primary Anesthesia Type: General (The anesthetic type performed was the same as planned.) Comments: Mild nausea, received zofran 4 mg in PACU with improvement. * Anesthesia Preprocedure Evaluation - Helena Spicer MD - 09/08/2016 4:38 PM EDT Pre-Anesthesia Evaluation for: Ruby Sprague a 36 y.o. female. Procedure(s): LAPAROSCOPIC BECCA FUNDOPLASTY (WRVU 18.1) MODIFIER, HIATAL HERNIA There are no active problems to display for this patient. No past medical history on file. Past Surgical History: Procedure Laterality Date ??? PRO UPPER GI ENDOSCOPY, BIOPSY N/A 07/30/2016 EGD WITH BIOPSY (WRVU 2.49) performed by Jovani Treviño MD at [facility] ENDOSCOPY Social History Substance Use Topics ??? Smoking status: Current Every Day Smoker Packs/day: 0.50 ??? Smokeless tobacco: Not on file ??? Alcohol use No History Drug Use No No Known Allergies Medications: MAR and/or home medications have been reviewed. Physical Exam: There were no vitals filed for this visit. There is no height or weight on file to calculate BMI. Airway Assessment: Mallampati: I TM distance: >3 FB Neck ROM: full Cardiovascular Assessment: Pulmonary Assessment: Dental Assessment: (+) upper dentures Misc Assessment: Anesthesia Plan: ASA 2 general, with a(n) intravenous induction 36 y.o. female with hiatal hernia presenting for laparoscopic becca fundoplasty and hiatal hernia repair PMH significant for current smoker (0.5 ppd), HTN, GERD (with breakthrough sx while on PPI), grade C esophagitis, obesity (BMI 33), asthma, Vertigo, IBS-C Anesthetic hx: No reported prior complications with anesthesia Airway hx: no records No results for input(s): ABORH in the last 7068 hours. Allergies: No Known Allergies NPO Status: Appropriate Anesthetic Plan: RSI GA with ETT Standard ASA monitoring Adequate IV access Region - Other Informed Consent: Anesthetic plan and risks discussed with patient. Plan discussed with resident. PAT Staff Note documented in this encounter Plan of Treatment Not on file documented as of this encounter Visit Diagnoses Not on filedocumented in this encounter Administered Medications Inactive Administered Medications - up to 3 most recent administrations Medication Order MAR Action Action Date Dose Rate Site ceFAZolin (ANCEF) 3g in dextrose 5% 100 mL 3 g, Intravenous, 30 MIN PRE-OP, 1 dose, On Tue09/10/16 at 0000, Administer over 30 Minutes, Indication for (Active or Suspected): Prophylaxis Given 09/09/2016 1:07 PM EDT 2 g dexamethasone (DECADRON) injection PRN, Starting on Tue09/09/16 at 1331, Until Bev 09/09/16 at 1554, Anesthesia Intra-op, Routine Given 09/09/2016 1:31 PM EDT 8 mg fentaNYL 50 mcg/mL multi-dose injection PRN, Starting on Tue09/09/16 at 1329, Until Bev 09/09/16 at 1554, Pain, Anesthesia Intra-op, Routine Given 09/09/2016 3:31 PM EDT 25 mcg Given 09/09/2016 1:45 PM EDT 50 mcg Given 09/09/2016 1:38 PM EDT 50 mcg glycopyrrolate (ROBINUL) multi-dose injection PRN, Starting on Tue09/09/16 at 1518, Until Tue09/09/16 at 1554, Anesthesia Intra-op, Routine Given 09/09/2016 3:18 PM EDT 0.2 mg labetalol (NORMODYNE,TRANDATE) multi-dose injection PRN, Starting on Tue09/09/16 at 1349, Until Tue09/09/16 at 1554, High Blood Pressure, Anesthesia Intra-op, Routine Given 09/09/2016 1:49 PM EDT 10 mg midazolam (PF) (VERSED) 1 mg/mL multi-dose injection PRN, Starting on Tue09/09/16 at 1252, Until Tue09/09/16 at 1554, Sleep, Anesthesia Intra-op, Routine Given 09/09/2016 12:52 PM EDT 2 mg neostigmine (BLOXIVERZ) injection PRN, Starting on Tue09/09/16 at 1518, Until Tue09/09/16 at 1554, Anesthesia Intra-op, Routine Given 09/09/2016 3:18 PM EDT 2 mg ondansetron (ZOFRAN) injection PRN, Starting on Tue09/09/16 at 1457, Until Tue09/09/16 at 1554, Nausea, Anesthesia Intra-op, Routine Given 09/09/2016 2:57 PM EDT 4 mg PHENYLephrine HCl in NS (PF) (CHET-SYNEPHRINE) 0.8 mg/10 mL (80 mcg/mL) multi-dose injection Syrg PRN, Starting on Bev 09/09/16 at 1434, Until Bev 09/09/16 at 1554, Anesthesia Intra-op, Routine Given 09/09/2016 2:59 PM EDT 160 mcg Given 09/09/2016 2:49 PM EDT 160 mcg Given 09/09/2016 2:39 PM EDT 80 mcg propofol (DIPRIVAN) 10 mg/mL bolus injection (Anesthesia) PRN, Starting on Bev 09/09/16 at 1305, Until Bev 09/09/16 at 1554, Anesthesia Intra-op Given 09/09/2016 1:05 PM EDT 200 mg propofol (DIPRIVAN) infusion CONTINUOUS PRN, Starting on Bev 09/09/16 at 1352, Until Bev 09/09/16 at 1554, Anesthesia Intra-op, Routine New Bag 09/09/2016 1:52 PM EDT 50 mcg/kg/min 20.4 mL/hr rocuronium (ZEMURON) multi-dose injection PRN, Starting on Bev 09/09/16 at 1315, Until Bev 09/09/16 at 1554, Anesthesia Intra-op, Routine Given 09/09/2016 2:20 PM EDT 20 mg Given 09/09/2016 1:15 PM EDT 30 mg succinylcholine (ANECTINE) injection PRN, Starting on Bev 09/09/16 at 1305, Until Bev 09/09/16 at 1554, Anesthesia Intra-op, Routine Given 09/09/2016 1:05 PM EDT 120 mg documented in this encounter Care Teams Small Products I Assembler Relationship Specialty Start Date End Date Shital Brooke APRN [address] [place] [address] PCP - General Family Medicine 07/20/16 12/04/17 documented as of this encounter
--- OUTSIDE RECORDS SUMMARY | 2023-10-06 17:05 | XMS_ITS | Encounter Summary ---
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 Name Role Phone Shital Brooke APRN Primary Care Provider [phone] Reason for Visit * Auth/Cert Specialty Diagnoses / Procedures Referred By Dayan t Referred To Contact Diagnoses GERD (gastroesophageal reflux disease) GERD Procedures PRO LAP, ESOPHAGOGAST FUNDOPLASTY LAPAROSCOPIC MIRTHA FUNDOPLASTY (WRVU 18.1) MODIFIER, HIATAL HERNIA Referral ID Status Reason Start Date Expiration Date Visits Re quested Visits Authorized [id number] 1 1 Encounter Details Date Type Department Care Team (Latest Contact Info) Description 09/09/2016 10:06 AM EDT - 09/11/2016 1:19 PM EDT Hospital Encounter [address] [place] [address] Mariaelena Godinez MD [facility] [place] [address] Gastroesophageal reflux disease, esophagitis presence not specified Discharge Disposition: Home Social History Tobacco Use [...] Sign Reading Time Taken Comments Blood Pressure 153/98 09/11/2016 7:41 AM EDT Pulse 106 09/11/2016 7:41 AM EDT Temperature 37.2 ??C (99 ??F) 09/11/2016 7:41 AM EDT Respiratory Rate 18 09/11/2016 7:41 AM EDT Oxygen Saturation 96% 09/11/2016 3:03 AM EDT Inhaled Oxygen Concentration - - Weight 68 kg (150 lb) 09/09/2016 10:40 AM EDT Height 147.3 cm (4' 10) 09/09/2016 10:40 AM EDT Body Mass Index 31.35 09/09/2016 10:40 AM EDT documented in this encounter Discharge Summaries * Inocencia Mendez - 09/11/2016 9:56 AM EDT General Surgery Discharge Summary Patient Name: Ruby Sprague Patient Age: 36 y.o. Birthdate: 1980 Admit date: 09/09/2016 Discharge date and time: 09/11/2016 Attending Physician: Mariaelena Godinez MD Primary Diagnosis: GERD Secondary Diagnosis: Hypophosphatemia Operations and Procedures: Laparoscopic Mirtha Fundoplasty Surgeons: Surgeon(s) and Role: * Mariaelena Godinez MD - Primary * Inocencia Mendez MD History of Present Illness: Ruby Sprague is a 36-year-old female who is referred to for possibleantireflux surgery. She states she has had significant reflux symptoms for manyyears. She is currently on a PPI and states that she has significant breakthrough symptoms. She has had previous surgery of umbilical hernia repair in the past. She has had a recentupper GI endoscopy which showed grade C esophagitis and a hiatal hernia. She had esophageal motility done, which showed a normotensive lower esophageal sphincter with appropriate relaxation. She has normal esophageal motility, although theydo mention she had one swallow that had significantly higher pressures than normal, possibly consistent with a jackhammer diagnosis. She does not give any symptoms that correlate to this finding, butthis was explained to her. She also had pH probe testing, on day 1 of the study she had acid in herdistal esophagus for 10.4% of the time; the second day it was just over 15%, both days a significant pathologic amount of reflux. The goal of surgery would be to repair her hiatal hernia and perform a full fundoplication and it is very likely we could do this laparoscopically. ?? Hospital Course: Ruby Sprague is a 36 y.o. female who was admitted on 09/09/2016 for laparoscopicnissen fundoplasty. The operative course was uneventful. On POD# 0 she was started on a post Nissenclear liquid diet, and when she tolerated that she was advanced to a post Mirtha full liquid diet. She was noted to have low phosphorous, and that was replaced. She was changed to oral pain medications and the PRODUCTION UNDERWRITER was discontinued on POD# 1. She was voiding without difficulty. On POD# 1 the dressings were dry and intact and the wounds were benign. She did not have a bowel movement prior to discharge but was passing flatus and taking PO without difficulty. Prior to discharge Ruby Sprague was afebrile, with stable vital signs. On 2 Days Post-Op, she was discharged to home in stable condition. Vital Signs: Last value Range last 24hrs Temperature Temp: 37.2 ??C (99 ??F) Temp: [37 ??C (98.6 ??F)-37.4 ??C (99.3 ??F)] Heart Rate Heart Rate: 95 Heart Rate: -- Blood Pressure BP: (!) 153/98 BP: (140-175)/(87-113) Respiratory Rate Resp: 18 Resp: [16-20] SpO2 SpO2: 96 % SpO2: [93 %-97 %] Pertinent Lab Data: Recent Labs 09/11/16 0431 09/10/16 1440 09/10/16 0515 WBC 15.4* 22.3* 23.2* HGB 11.5* 12.0 11.9 HCT 35.1* 36.1 36.0 PLATELET 337 446* 419* Recent Labs 09/11/16 0431 09/10/16 1440 09/10/16 0515 09/09/16 2124 NA 138 140 137 134* K 4.0 4.0 3.9 4.0 CL 101 102 103 100 CO2 20* 20* 20* 19* BUN 8 8 9 10 CREATININE 0.74 0.88 0.79 0.80 GLUCOSE 144 150 167 236* CALCIUM 8.9 9.4 9.4 9.6 9.0 MAGNESIUM 0.83 0.93 0.98 0.73 PHOS 3.9 4.1 1.3* 1.1* Physical Exam: General: NAD, resting comfortably, pleasant, conversant HEENT: PERRL, anicteric sclerae CVS: RRR Pulm: CTAB Abd: soft, appropriately tender, non-distended. 7 port sites without evidence of edema, erythema orecchymosis. No drainage or s/s of infection noted. : no problems with voiding Skin: warm, dry Ext: no c/c/e Neuro: CN 2-12 grossly intact, nonfocal,moving all four extremities spontaneously Imaging: No results found. Condition at discharge: Stable Mental Status: awake and alert, oriented x 3 Medications: Your Medications New Medications Dose Details acetaminophen 650 mg/20.3 mL Soln Commonly known as: TYLENOL Take 20.3 mLs by mouth every 4 hours as needed. 650 mg Quantity: 3654 mL Refills: 3 oxyCODONE 5 mg/5 mL Soln Commonly known as: ROXICODONE Take 5-10 mLs by mouth every 4 hours as needed for Pain (for pain 1-5 give 5mg; for pain 6-10 give 10mg). 5-10 mg Quantity: 300 mL Refills: 0 Continued medications, unchanged Dose Details amitriptyline 100 mg Tab Commonly known as: ELAVIL Take 100 mg by mouth Daily. Reported on 08/25/2016 100 mg Refills: 0 hydroCHLOROthiazide 12.5 mg Tab Commonly known as: HYDRODIURIL Take 12.5 mg by mouth daily. 12.5 mg Refills: 0 ibuprofen 800 mg Tab Commonly known as: ADVIL;MOTRIN 800MG = 1 Tablet(s), PO, Three times daily Refills: 0 meclizine 25 mg Tab Commonly known as: ANTIVERT Take 25 mg by mouth Three times a day. 25 mg Refills: 0 polyethylene glycol 17 gram/dose Powd Commonly known as: MIRALAX Take 17-34 g by mouth daily. 17-34 g Quantity: 850 g Refills: 11 STOPPED Medications omeprazole 20 mg Cpdr Commonly known as: PriLOSEC Disposition: Home Allergies: No Known Allergies Outpatient Services/Studies: No discharge procedures on file. Scheduled Appointments: Future Appointments and Orders Future Appointments Provider Department Dept Phone 09/14/2016 9:00 AM John Garner APRN Gastroenterology [phone] 10/13/2016 4:20 PM Mariaelena Godinez MD General Surgery [phone] 10/20/2016 1:40 PM Adelina Howard MD Otolaryngology [phone] Instructions Given to Patient at Discharge: Call your doctor if you develop: Fever greater than 101.3 degrees Farenheit (38.5 degrees Celcius), chills, nausea or vomiting. [place]all if you develop severe pain not relieved by your prescribed oral pain medicine. CALL THE GENERAL SURGERY CLINIC DURING WORKING HOURS AT , OR CALL AFTERCLINIC HOURS, WEEKENDS AND HOLIDAYS: ASK FOR THE GENERAL SURGERY [address] MACHINE OPERATOR IF ANY OF THE ABOVE OCCUR. Activity level: Increase your activity slowly. You may tire easily, so frequent rest periods may be necessary. Do not lift more than 10 pounds for 4 weeks. Walk three times a day. Use common sense. Don't exhaust yourself. Diet: You should follow a post Mirtha diet, as instructed by the equip maint eng in the hospital for a period of [...] Medication Changes: Please discontinue the use of Prilosec or any other antacid medications until you are seen in the clinic for follow-up. This procedure should have helped with the heartburn symptoms, and if the medication is not stopped, we will not know if the surgery was successful. There have been no changes to your other medications. Please resume taking them as you had prior tosurgery. Pain Medication: Take only as needed. -Take [...] ways to distract yourself from the pain. Driving: Do not drive while taking narcotic pain medications such as Roxicodone. Shower/Bath: You may shower and let water [...] at the [facility], on Tuesday, October 13, 2016 at 4:20pm. You need to follow-up with your PCP regarding your blood pressure in the next 1- 2 weeks. Please call if you have any issues. You will receive a letter in the mail confirming the appointment date and time. Your follow-up is very important to us. Please call [phone] if you do not hear from us within 7 days of discharge or if you need to change the appointment date/time. Signed: INOCENCIA MENDEZ MD 09/11/2016 Primary Care Physician: Shital Brooke APRN [address] [facility] [id number] documented in this encounter Medications at Time of Discharge Medication Sig Dispensed Refills Start Date End Date ibuprofen (ADVIL;MOTRIN) 800 mg tablet 800MG = 1 Tablet(s), PO, Three times daily 10/03/2005 acetaminophen (TYLENOL) 650 mg/20.3 mL Solution Take 20.3 mLs by mouth every 4 hours as needed. 3654 mL 3 09/11/2016 06/28/2019 oxyCODONE (ROXICODONE) 5 mg/5 mL Solution Take 5-10 mLs by mouth every 4 hours as needed for Pain (for pain 1-5 give 5mg; for pain 6-10 give 10mg). 300 mL 09/11/2016 09/19/2016 hydroCHLOROthiazide (HYDRODIURIL) 12.5 mg Tablet Take 12.5 [...] 07/01/2016 03/28/2017 documented as of this encounter Progress Notes * Bianka Mccabe RN - 09/11/2016 12:41 PM EDT Patient Name: Ruby Sprague Patient Age: 36 y.o. Birthdate: 1980 Admit date: 09/09/2016 Attending Physician: Mariaelena Godinez MD Pt d/c'd to home with no services. Reviewed D/C instructions with patient and family, pt aware of when and why to notify MD and of follow up appointments. Pt had no questions regarding summary instructions. IV d/c'd, catheter intact. Rx rcvd by pt. MD Mendez aware of elevated BP and elevated HR, has advised pt to follow up with primary care. Pt left via wheelchair with her family who will be transporting her home. * Tad Robertson - 09/10/2016 10:10 AM EDT Nutrition Services - Education Note Ruby Sprague : 1980 AGE: 36 y.o. MedDx/PMHx: Mirtha Reason for Nutrition Intervention: Consult Diet Order: Mirtha, Full liquids Appetite: Fair Food allergies: NKFA Ht Readings from Last 3 Encounters: 09/09/16 (!) 147.3 cm (4' 10) 07/01/16 (!) 147.3 cm (4' 10) Wt Readings from Last 3 Encounters: 09/09/16 68 kg (150 lb) 08/25/16 68.5 kg (151 lb) 07/01/16 71.8 kg (158 lb 3.2 oz) Body mass index is 31.35 kg/(m^2). Education: Mirtha dietary guidelines. Verbalized good understanding. Education material, with means of contact provided. Assessment: Patient verbalized good understanding of Mirtha guidelines. Highly recommended to follow foods allowed/foods not allowed list. Encouraged pt to include a supplement drink into diet onceat home for additional calories and protein consumption. Pt family had concerns with housing once pt is discharged. Pt father stated he had booked a hotel for the pt and her fiance and was concerned about the three flights of stairs she would have to walk up. I spoke with Margaret VARNER about family concerns, Margaret stated she would address. Assisted pt with filling out her menu for lunch for today. I have provided contact information in case any further questions should arise. Nutrition Plan: Diet: Mirtha Encourage good po intake. Monitor weight. Support and encouragement provided. Nutrition services to follow weekly thru hospital course unless consulted in the interim. Tad Robertson DT * Margaret Rios PA - 09/10/2016 7:06 AM EDT Minimally Invasive Surgery Inpatient Progress Note ID: Ruby Sprague is a 36 y.o. female s/p laparoscopic mirtha fundoplasty. Now 1 Day Post-Op. 24hr events: ?? No acute events ?? Noted to have low Phosphorous; replaced with Potassium Phosphorous ?? Noted to have mildly elevated WBC without any outward s/s of infection Subjective: Admits to feeling ok this am. Has been voiding and tolerating clear liquids without anyproblems. She currently denies n/v/cp/sob. Has not ambulated out of the room, using commode beside bed. O: Last value Range last 24hrs Temperature Temp: 36.9 ??C (98.4 ??F) Temp: [36.4 ??C (97.5 ??F)-37.1 ??C (98.8 ??F)] Heart Rate Heart Rate: 95 Heart Rate: [77-99] Blood Pressure BP: (!) 130/96 BP: (130-174)/(73-96) Respiratory Rate Resp: 16 Resp: [14-21] SpO2 SpO2: 93 % SpO2: [91 %-100 %] 09/09 700 - 09/10 07 In: 2365.2 [P.O.:60; I.V.:2305.2] Out: 2080 [Urine:2074] Physical Exam: General: NAD, resting comfortably, pleasant, conversant HEENT: PERRL, anicteric sclerae CVS: RRR Pulm: CTAB Abd: soft, appropriately tender, non-distended. 7 port sites without evidence of edema, erythema orecchymosis. No drainage or s/s of infection noted. : no problems with voiding Skin: warm, dry Ext: no c/c/e Neuro: non-focal, moving all four extremities spontaneously Labs: Recent Labs 09/10/16 05 WBC 23.2* HGB 11.9 HCT 36.0 PLATELET 419* Recent Labs 09/10/1615 09/09/164 NA 137 134* K 3.9 4.0 CL 103 100 CO2 20* 19* BUN 9 10 CREATININE 0.79 0.80 GLUCOSE 167 236* CALCIUM 9.6 9.0 MAGNESIUM 0.98 0.73 PHOS 1.3* 1.1* Microbiology: None New Studies: None ASSESSMENT: Ruby Sprague is a 36 y.o. female s/p laparoscopic mirtha fundoplasty. Now 1 Day Post-Op Phosphorous noted to be low on post-op labs; replaced with K-Phos. Results continued to be low, Potassium Phosphate 15mmol x4 ordered. Slightly elevated WBC without s/s of infection or reasons for concern. Will continue to monitor. PLAN: NEURO: Pain control with PRODUCTION UNDERWRITER Dilaudid and IV Tylenol; transition to elixir Oxycodone and Tylenol when tolerating po. CV: No acute issues. PULM: Encourage frequent ambulation and IS use. GI: Diet Post-Mirtha Full Liquid diet Full Liquid : no problems with voiding; monitor UOP closely. FEK: LR 100cc/hr until tolerating adequate po intake; Phosphorous low, replace with Potassium Phosphate 15mmol x4; will continue to monitor. ID: no indication of active infection HEME: no indication of active bleeding ENDO: no active issues PROPHYLAXIS: JANETT for DVT DISPO: Floor status, Full Code Low phosphorous; replace and recheck. Progressing without any other problems. Possible discharge later today or tomorrow based on progress. TELLY ALFARO 09/10/2016 * Katja Rossi MD - 09/09/2016 8:21 PM EDT Post-op Check Patient Name: Ruby Sprague Patient Age: 36 y.o. Attending Physician: Mariaelena Godinez MD Ruby Sprague is a 36 y.o. female s/p Procedure(s) (LRB): LAPAROSCOPIC MIRTHA FUNDOPLASTY (WRVU 18.1) (N/A) MODIFIER, HIATAL HERNIA (N/A) Subjective: Ruby Sprague is a 36 year old female with history of GERD now s/p laparoscopic Mirtha fundoplication. Complaining of 8/10 constant chest tightness of 1 hour duration w/ no radiation or associated symptoms. Denies N/V, dizziness, diaphoresis, SOB. Vitals Last value Range last 24hrs Temperature Temp: 36.4 ??C (97.5 ??F) Temp: [36.4 ??C (97.5 ??F)-37 ??C (98.6 ??F)] Heart Rate Heart Rate: 95 Heart Rate: [77-99] Blood Pressure BP: (!) 169/94 BP: (147-174)/(73-95) Respiratory Rate Resp: 16 Resp: [14-21] SpO2 SpO2: 96 % SpO2: [91 %-100 %] General: NAD, A/O x 3 HEENT: NC/AT, PERRL, EOMI CV: RRR, no appreciable murmurs Pulm: CTAB, no w/r/r Abd: mildly distended. Minimally tender to palpation. Incisions c/d/i Extremity: no c/c/e Skin: Warm, Dry Neuro: CN 2-12 grossly intact, nonfocal No results for input(s): WBC, HGB, HCT, PLATELET, PT, INR, PTT in the last 72 hours. No results for input(s): NA, K, CL, CO2, BUN, CREATININE, GLUCOSE, CALCIUM, MAGNESIUM, PHOS in the last 72 hours. A/P: Ruby Sprague is a 36 y.o. female patient s/p above procedures currently in stable conditionand recovering well after surgery. - Appropriate for floor - EKG showed NSR, will f/u cardiac enzymes and BMP - BP elevated, prn hydralazine given. Otherwise vitals normal -UOP adequate - Continue post-op plan Katja Rossi MD 09/09/2016 8:21 PM * Loretta Hendrickson RN - 09/09/2016 8:11 PM EDT Pt BP 170/95, 5mg hydralazine given at change of shift. BP rechecked in 30 min; 169/94, additional 5mg of hydralazine given. Recheck, 155/89. Pt c/o slight chest discomfort. MD notified. EKG ordered.No actions taken. Will continue to monitor. * Bianka Mcacbe RN - 09/09/2016 6:50 PM EDT Pt arrived from PACU at 1850, oriented, requesting to urinate. Oriented to room and use of call wilkerson system. BP elevated 170s'/90's, made aware. Will continue to monitor and assess. * Enid Hunter RN - 09/09/2016 5:28 PM EDT C/o thirst , pain, wanting , and needing to urinate 1730 On bedpan twice in twenty minutes Medicated for pain and PRODUCTION UNDERWRITER set up... NPO status maintained 1800 Report to floor Asked again for Bedpan Placed on prior to transfer to floor * Marylin Hand RN - 09/09/2016 4:14 PM EDT Break coverage. documented in this encounter H&P Notes * Inocencia Mendez - 09/09/2016 12:20 PM EDT Interval H&P HPI: The following was taken from Dr. Godinez's clinic note dated 08/25/2016: Ruby Sprague is a 36-year-old female who is referred to me by for possible antireflux surgery. She states she has had significant reflux symptoms for many years. She is currently on a PPI and states that she has significant breakthrough symptoms. She has had previous surgery of umbilical hernia repair in the past. She has had a recent upper GI endoscopy which showed grade C esophagitis and a hiatal hernia. She had esophageal motility done, which showed a normotensive lower esophageal sphincter with appropriate relaxation. She normal esophageal motility, although they do mention she had one swallow that had significantly higher pressures than normal, possibly consistent with a jackhammer diagnosis. She does not give any symptoms that I could correlate to this finding, but I did explain it to her. She also has had pH probe testing, on day 1 of the study she had acid in her distal esophagus for 10.4% of the time; the second day it was just over 15%, both days a significant pathologic amount of reflux. I shared all this information with her today. I discussed with her, she would be a reasonable candidate for surgery. The goal of surgery would be to repair her hiatal hernia and perform a full fundoplication and it is very likely we could do this laparoscopically. I mentioned risks of surgery to include possibility of infection, possibility of bleeding requiring transfusion, possible injury to esophagus or stomach and a very small change of having to convert to open surgery and a roughly 10% chance of long-term risk of recurrent hernia or recurrent reflux. She does have a BMI in the low 30s, therefore, I would advocate for a low-fat preop diet for 2 weeks prior to the date of surgery in order to minimize the impact of fatty liver infiltration and exposure of the gastroesophageal junction. Postop, she is likely to experience a component of early satiety, dysphagia and bloating. The majority of symptoms decrease the further she gets out from surgery. Overall, she seems to understand and would like to proceed with this in mind. We will give her a date for surgery for surgery at some point in the near future, as well as urging compliance with the low-fat preop diet. PMH: No past medical history on file. PSH: Past Surgical History: Procedure Laterality Date ??? PRO UPPER GI ENDOSCOPY, BIOPSY N/A 07/30/2016 EGD WITH BIOPSY (WRVU 2.49) performed by Jovani Treviño MD at [facility] ENDOSCOPY Medications: No current facility-administered medications on file prior to encounter. Current Outpatient Prescriptions on File Prior to Encounter Medication Sig Dispense Refill ??? omeprazole (PRILOSEC) 20 mg Capsule, Delayed Release(E.C.) Take 20 mg by mouth daily. Reported on 07/30/2016 ??? meclizine (ANTIVERT) 25 mg Tablet Take 25 mg by mouth Three times a day. ??? polyethylene glycol (MIRALAX) 17 gram/dose Powder Take 17-34 g by mouth daily. 850 g 11 ??? ibuprofen (ADVIL;MOTRIN) 800 mg tablet 800MG = 1 Tablet(s), PO, Three times daily ??? amitriptyline (ELAVIL) 100 mg Tablet Take 100 mg by mouth Daily. Reported on 08/25/2016 Allergies: No Known Allergies Social Hx: Social History Social History ??? Marital status: Spouse name: N/A ??? Number of children: N/A ??? Years of education: N/A Occupational History ??? Not on file. Social History Main Topics ??? Smoking status: Current Every Day Smoker Packs/day: 0.50 ??? Smokeless tobacco: Not on file ??? Alcohol use No ??? Drug use: No ??? Sexual activity: Not on file Other Topics Concern ??? Not on file Social History Narrative No interval changes. No recent illness or changes in health. Physical Exam: General: NAD Cardiac: RRR Respiratory: CTAB Abdomen: soft, prior scar well healed, NT/ND Plan: Will proceed with planned surgery - lap mirtha fundoplication. Booked, marked, and consented. INOCENCIA MENDEZ MD documented in this encounter Miscellaneous Notes * Plan of Care - Adelina Pradhan RN - 09/11/2016 5:28 AM EDT Problem: Patient Care Overview Goal: Plan of Care Review Outcome: Ongoing (Interventions Implemented as Appropriate) 09/11/16 0526 Coping/Psychosocial Plan Of Care Reviewed With patient Plan of Care Review Progress no change OUTCOME EVALUATION NOTE: OUTCOME SUMMARY: Patient alert and orientated. Vital signs- hypertensive with pain overnight. Dressings clean, dry, and intact. PLAN MOVING FORWARD: Monitor vital signs, pain management, monitor labs closely. INDIVIDUALIZED FALL PREVENTION INTERVENTIONS: Patient-specific fall risk factors per assessment: [current deficits]: medical equipment, pain. Assistance [level of assistance required for transfers and ambulation]: one assist. Supervision [direct monitoring required during toileting and ADLs]: one assist. Surveillance [continuous indirect monitoring]: Rounding, room surveillance. * Plan of Care - Wandy Leiva RN - 09/10/2016 7:57 PM EDT Problem: Patient Care Overview Goal: Plan of Care Review Outcome: Ongoing (Interventions Implemented as Appropriate) 09/10/161951 Coping/Psychosocial Plan Of Care Reviewed With patient;significant other;father Plan of Care Review Progress improving OUTCOME EVALUATION NOTE: OUTCOME SUMMARY: Pt hoping to go home in AM. PRODUCTION UNDERWRITER dc'd, pt tolerating pain control w/10mg oxy and tylenol po. Pt ambulated unit. Pt's phos low and requires replacement prior to safe discharge. Pt stated understanding of this and agrees with plan. IV phos replacement and check labs in AM, then possible DC home. PLAN MOVING FORWARD: IV phos replacement, pain control. INDIVIDUALIZED FALL PREVENTION INTERVENTIONS: Patient-specific fall risk factors per assessment: [current deficits]: IV, pain meds Assistance [level of assistance required for transfers and ambulation]: SBA Supervision [direct monitoring required during toileting and ADLs]: No, pt demonstrates proper use of call wilkerson. Surveillance [continuous indirect monitoring]: Alber, staff rounding Patient-specific fall prevention interventions for sensory deficits provided, if applicable: [X] No CPG GOAL OUTCOME EVALUATION: * Initial Assessments - Uma Carcamo RN - 09/10/2016 12:51 PM EDT Office of Care Management Initial Assessment Uma Carcamo RN reviewed record and discussed patient with Care Team. Source of Information: Chart review, MD report, & patient interview. Introduced self/reviewed role; services accepted. Reason for Hospitalization: 36 y/o woman who had laparoscopic Mirtha Fundoplasty on 09/09/16. No past medical history on file. Hospitalizations Within the Past 30 Days: No Anticipated Length Of Stay (If known): 1-3 days Current Decision-Making Capacity: Patient alert, oriented, & able to make own choices. Advance Care Planning: No found in chart Current Coping/Education/Information Needs: Patient verbalizes understanding of procedure completed& dietary instructions provided. Current Functional Ability: Indpendent Functional Status Prior to Admission: Independent Home Environment: Currently staying in [facility] until permanent housing available. Social & Family Supports/Community Resources: Lives with boyfriend/Gissell eng. Behavioral Health History: Denies any Substance Use/Abuse: No Other Pertinent/Service Specific Information: No Health/Prescription Coverage: Primary Insurance: MEDICARE A+B Secondary Insurance: MEDICAID [place] Prescription Coverage: Medicaid Preferred Pharmacy: [facility] in [place], [place] Other: No Primary Care Provider: Shital Brooke, STORAGE MANAGEMENT ARCHITECT [phone] Patient/Caregiver Goals of Treatment: Control pain & confirm tolerance of oral intake for discharge home with dietary instructions. Potential Needs for Transition of Care: Rehab/SNF: No Home Health: No DME: No Dialysis: No Community Resources: No Transportation: Henri Lowe, will provide ride home. Other: No Anticipated Barriers to Discharge/Special Considerations: No barriers anticipated. Plan: CM will maintain contact with patient & providers to coordinate any services needed for discharge. Uma Carcamo RN Pager: [phone] * Plan of Care - Loretta Hendrickson RN - 09/10/2016 5:01 AM EDT Problem: Patient Care Overview Goal: Plan of Care Review Outcome: Ongoing (Interventions Implemented as Appropriate) 09/10/16 0502 Coping/Psychosocial Plan Of Care Reviewed With patient;spouse Plan of Care Review Progress improving OUTCOME EVALUATION NOTE: OUTCOME SUMMARY: Ruby had a good night. Pt slept in between care throughout shift. 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 Lap sites CDI. Pt voiding adequate amounts. Pt had high BPs, treated with hydralazine; see previous note. Will continue to monitor. PLAN MOVING FORWARD: Encourage independence. Encourage ambulation. Encourage fluids. Maintain pain control. Control nausea. INDIVIDUALIZED FALL PREVENTION INTERVENTIONS: Patient-specific fall risk factors per assessment: [current deficits]: Pain, narcotics, IV pole/line, vision aid Assistance [level of assistance required for transfers and ambulation]: SBA Supervision [direct monitoring required during toileting and ADLs]: Eyes on Surveillance [continuous indirect monitoring]: Masimo, purposeful rounding, call wilkerson in reach Patient-specific fall prevention interventions for sensory deficits provided, if applicable: [X] Yes, environmental modifications, lights adjusted to task, non- skid socks, glasses at bedside CPG GOAL OUTCOME EVALUATION: * Op Note - Mariaelena Godinez MD - 09/09/2016 3:18 PM EDT [facility] [place] Patient Name: Ruby Sprague : [id number] MR#: [id number] Case Date: 09/09/2016 Surgeon: Surgeon(s) and Role: * Mariaelena Godinez MD - Primary * Inocencia Mendez MD Preoperative diagnosis: GERD Postoperative diagnosis: GERD Procedure(s) (LRB): LAPAROSCOPIC MIRTHA FUNDOPLASTY (WRVU 18.1) (N/A) MODIFIER, HIATAL HERNIA (N/A) Indications for Procedure: The patient is a 33-year-old female with long- standing history of gastroesophageal reflux disease. Following appropriate preoperative evaluation and review of her therapeutic options, she has elected to undergo a laparoscopic Mirtha fundoplication. Operative Findings: The patient was noted to have a small hiatal hernia and a modest amount of paraesophageal scarring. She underwent a 3-stitch, 2.5-cm fundoplication performed over a 60-English bougie. There were no intraoperative complications. Details of Operation: The patient was brought to the Operating Room and placed in the supine position. Following uneventful induction of general endotracheal anesthesia, a Garza catheter was placed, as well as Venodyne stockings, and an orogastric tube. Her legs were then spread using the straight-leg extensions. The abdomen was prepped and draped in the usual sterile fashion. A small incision was made at the base of the umbilicus followed by insertion of a Veress needle into the peritoneal cavity. A pneumoperitoneum to 15- mmHg pressure was obtained without difficulty. The first trocar was a10-mm trocar placed 15 cm inferior to the xiphoid just left of midline. Through this, a 45-degree la paroscope was inserted. All remaining trocars were inserted under direct visualization. The next trocar was a 10-mm trocar placed 10 cm along the left costal margin. The next trocar was a 5-mm trocarplaced 20 cm along the left costal margin. The next trocar was a 5-mm trocar placed midway between the left lateral trocar and the umbilicus. The next trocar was a 10-mm trocar placed 10 cm along theright costal margin. Through this, an expandable fan retractor was positioned below the left lobe of the liver which was then retracted cephalad and held in place using mechanical arm. The next trocar was a 5-mm trocar placed in the right epigastrium. With the surgeon standing between the patient'slegs, the epiphrenic fat pad was grasped and retracted inferiorly to the patient's left, placing the hepatogastric omentum on stretch which was then divided using the harmonic scalpel. A blunt plane was developed between the right amalia of the diaphragm and the esophagus. Multiple cardiophrenic attachments were then taken down in the region of the angle of His. We then mobilized the fundus of the s sanya by beginning approximately one-half the way down the greater curvature of the stomach. All short gastric vessels and posterior gastric attachments were divided up to the angle of His. We then developed a posterior esophageal window under direct visualization and the anterior and posterior vagus nerves were left adherent to the wall of the esophagus. The esophagus was then encircled using a [place] which was held in place using Endoloop. Further paraesophageal dissection was performed until we had obtained approximately 3 cm of tension- free intraabdominal esophagus. At this point, the diaphragmatic hiatus was approximated using interrupted sutures of 0 Nurolon tied over David pledgets. We then wrapped the stomach posterior to the esophagus and a 60-English bougie was passed by Anesthesiology down the esophagus into the stomach without complication. With the bougie in place, a 3- stitch, 2.5-cm fundoplication was performed. Each bite of the fundoplication included fundus, esophagus, and fundus. Care was taken to avoid injury to the anterior vagus nerve with the esophageal suture bites. Following completion of the fundoplication, the bougie was removed. The abdomen was irrigated. Excellent hemostasis was assured. The Anders drain was cut and removed. The liver retractor wasreleased and removed. All trocars were removed under direct visualization and hemostasis was assured at the insertion site. The pneumoperitoneum was evacuated. All trocar sites were closed at the skin level using a running subcuticular closure of 4-0 Vicryl followed by Steri-Strips, followed by Band-Aids. Overall, the patient tolerated the procedure well and was taken to the recovery room postoperatively in stable condition. Attestation: Case Date: 09/09/2016 I was the attending for the procedure and was present throughout the operation and supervised the resident MARIAELENA GODINEZ MD 09/09/2016 documented in this encounter Plan of Treatment Not on file documented as of this encounter Procedures Procedure Name Priority Date/Time Associated Diagnosis Comments ECG SCAN 09/12/2016 12:00 AM EDT HEMOGRAM Routine 09/11/2016 4:31 AM EDT DIFFERENTIAL, AUTOMATED Routine 09/11/2016 4:31 AM EDT CBC (WITH DIFF) Routine 09/11/2016 4:31 AM EDT PHOSPHORUS Routine 09/11/2016 4:31 AM EDT MAGNESIUM Routine 09/11/2016 4:31 AM EDT BASIC METABOLIC PANEL Routine 09/11/2016 4:31 AM EDT HEMOGRAM Routine 09/10/2016 2:40 PM EDT DIFFERENTIAL, AUTOMATED Routine 09/10/2016 2:40 PM EDT CBC (WITH DIFF) Routine 09/10/2016 2:40 PM EDT PHOSPHORUS Routine 09/10/2016 2:40 PM EDT MAGNESIUM Routine 09/10/2016 2:40 PM EDT CALCIUM Routine 09/10/2016 2:40 PM EDT COMPREHENSIVE METABOLIC PANEL Routine 09/10/2016 2:40 PM EDT SCAN, PERIPHERAL BLOOD Routine 7 5:15 AM EDT HEMOGRAM Routine 09/10/2016 5:15 AM EDT DIFFERENTIAL, AUTOMATED Routine 09/10/2016 5:15 AM EDT CBC (WITH DIFF) Routine 09/10/2016 5:15 AM EDT PHOSPHORUS Routine 09/10/2016 5:15 AM EDT MAGNESIUM Routine 09/10/2016 5:15 AM EDT BASIC METABOLIC PANEL Routine 09/10/2016 5:15 AM EDT CARDIAC ENZYMES ([facility]) STAT 09/09/2016 9:24 PM EDT PHOSPHORUS Routine 09/09/2016 9:24 PM EDT MAGNESIUM Routine 09/09/2016 9:24 PM EDT BASIC METABOLIC PANEL Routine 09/09/2016 9:24 PM EDT EKG 12-LEAD STAT 09/09/2016 8:56 PM EDT Gastroesophageal reflux disease, esophagitis presence not specified MODIFIER, HIATAL HERNIA 09/09/2016 12:58 PM EDT GERD LAPAROSCOPIC MIRTHA FUNDOPLASTY (WRVU 18.1) 09/09/2016 12:58 PM EDT GERD documented in this encounter Results * SCAN DOC: ECG (09/12/2016 12:00 AM EDT) Narrative 09/12/2016 12:00 AM EDT Ordered by an unspecified provider. Scanning Provider MEDIA MGR SCAN EXT O RDR/RSLT * (ABNORMAL) Differential, Automated (09/11/2016 4:31 AM EDT) Neutrophil % 73.0 % [facility] Neutrophil Absolute 11.23(H) 1.70 - 6.10 x10(3)/mc L [facility] Lymph % 15.3 % [facility] Lymphocytes Abs 2.4 0.9 - 3.2 x10(3)/mc L [facility] Monocyte % 10.5 % [facility] Monocyte Abs 1.6(H) 0.3 - 0.9 x10(3)/mc L [facility] Eos % 0.2 % [facility] Eosinophils Abs 0.0 0.0 - 0.4 x10(3)/mc L [facility] Basophil % 0.4 % [facility] Baso Absolute 0.1 0.0 - 0.1 x10(3)/mc L [facility] Immature Gran % 0.60 % [facility] Comment: Immature granulocytes(IG's)percentage and absolute count will include metamyelocytes, myelocytes, and promyelocytes. Blood smears from CBCs yielding IG's will be scanned manually for concordance. If this scan disagrees with the automated IG or if promyelocytes are noted, a manual differential will be performed. Immature Gran Absolute 0.10(H) 0.00 - 0.04 x10(3)/mc L [facility] Blood specimen (specimen) 09/11/2016 4:31 AM EDT 09/11/2016 4:50 AM EDT Narrative Resulting Agency Comment Spec In Lab Mariaelena Godinez MD HEMATOLOGY ORDERABL ES [facility] [place] [address] * (ABNORMAL) Hemogram (09/11/2016 4:31 AM EDT) White Blood Cell 15.4(H) 4.0 - 9.5 x10(3)/[facility] Red Blood Cell 4.57 4.00 - 5.21 x10(6)/[facility] Hemoglobin 11.5(L) 11.7 - 15.5 gm/dL [facility] Hematocrit 35.1(L) 35.7 - 45.8 % [facility] Mean Cell Volume 76.8(L) 82.6 - 94.4 fL [facility] Mean Cell Hemoglobin 25.2(L) 27.1 - 32.0 pg [facility] Mean Cell Hemoglobin Concentration 32.8 31.7 - 35.0 gm/dL [facility] Platelet 337 145 - 357 x10(3)/[facility] RDW Standard Deviation 49.5(H) 37.0 - 46.0 [facility] RDW coefficient of variation 17.9(H) 11.5 - 14.1 % [facility] Mean Platelet Volume 10.2 7.6 - 12.9 [facility] NRBC% auto 0.0 % [facility] NRBC Absolute 0.000 0.000 - 0.000 x10(3)/mc L [facility] Blood specimen (specimen) 09/11/2016 4:31 AM EDT 09/11/2016 4:50 AM EDT Narrative Resulting Agency Comment Spec In Lab Mariaelena Godinez MD HEMATOLOGY ORDERABL ES Performing Organization Address City/[facility]/ZIP Co de Phone Number [facility] [place] [address] * Phosphorus (09/11/2016 4:31 AM EDT) Phosphorus 3.9 2.5 - 4.5 mg/dL [facility] Blood specimen (specimen) 09/11/2016 4:31 AM EDT 09/11/2016 4:50 AM EDT Narrative Resulting Agency Comment Spec In Lab Mariaelena Godinez MD CHEMISTRY ORDERABLE S Performing Organization Address [facility] Co de Phone Number [facility] [place] [address] * Magnesium (09/11/2016 4:31 AM EDT) Magnesium 0.83 0.69 - 1.07 mmol/L [facility] Blood specimen (specimen) 09/11/2016 4:31 AM EDT 09/11/2016 4:50 AM EDT Narrative Resulting Agency Comment Spec In Lab Mariaelena Godinez MD CHEMISTRY ORDERABLE S Performing Organization Address [facility] Co de Phone Number [facility] [place] [address] * (ABNORMAL) Basic Metabolic Panel (non-fasting) (09/11/2016 4:31 AM EDT) Glucose 144 65 - 199 mg/dL [facility] Comment:Diabetes: >=200 mg/d L plus symptoms Blood Urea Nitrogen 8 8 - 18 mg/dL [facility] Creatinine 0.74 0.70 - 1.20 mg/dL [facility] Comment: Please note that the pediatric reference intervals supplied above were not validated [place] [facility] Results from pediatric patients should be interpreted in conjunction to the patient's age, height and muscle mass. Sodium 138 135 - 145 mmol/L [facility] Potassium 4.0 3.5 - 5.0 mmol/L [facility] Comment: Please note: ??Patients with WBC >100,000 may have falsely elevated Potassium levels. ??For accurate Potassium quantification in these patients send serum separator tube (gold top) for subsequent determinations. ??Contact the Clinical Chemistry Laboratory if there are any questions. Chloride 101 98 - 107 mmol/L [facility] Carbon Dioxide 20(L) 22 - 31 mmol/L [facility] Anion Gap 17(H) 5 - 15 mmol/L [facility] Calcium 8.9 8.5 - 10.5 mg/dL [facility] Est Glomerular Filtration Rate >60 >=60 [facility] Comment: This estimated GFR (eGFR) [...] the following links into your internet browser. [email or web address] Blood specimen (specimen) 09/11/2016 4:31 AM EDT 09/11/2016 4:50 AM EDT Narrative Resulting Agency Comment Spec In Lab Mariaelena Godinez MD CHEMISTRY ORDERABLE S [facility] [place] [address] * (ABNORMAL) Differential, Automated (09/10/2016 2:40 PM EDT) Neutrophil % 76.7 % [facility] Neutrophil Absolute 17.12(H) 1.70 - 6.10 x10(3)/[facility] Lymph % 11.0 % [facility] Lymphocytes Abs 2.5 0.9 - 3.2 x10(3)/[facility] Monocyte % 11.1 % [facility] Monocyte Abs 2.5(H) 0.3 - 0.9 x10(3)/[facility] Eos % 0.0 % [facility] Eosinophils Abs 0.0 0.0 - 0.4 x10(3)/[facility] Basophil % 0.2 % [facility] Baso Absolute 0.0 0.0 - 0.1 x10(3)/[facility] Immature Gran % 1.00 % [facility] Comment: Immature granulocytes(IG's)percentage and absolute count will include metamyelocytes, myelocytes, and promyelocytes. Blood smears from CBCs yielding IG's will be scanned manually for concordance. If this scan disagrees with the automated IG or if promyelocytes are noted, a manual differential will be performed. Immature Gran Absolute 0.22(H) 0.00 - 0.04 x10(3)/[facility] Blood specimen (specimen) 09/10/2016 2:40 PM EDT 09/10/2016 2:47 PM EDT Narrative Resulting Agency Comment Spec In Lab Mariaelena Godinez MD HEMATOLOGY ORDERABL ES [facility] [place] [address] * (ABNORMAL) Hemogram (09/10/2016 2:40 PM EDT) White Blood Cell 22.3(H) 4.0 - 9.5 x10(3)/[facility] Red Blood Cell 4.81 4.00 - 5.21 x10(6)/mc L [facility] Hemoglobin 12.0 11.7 - 15.5 gm/dL [facility] Hematocrit 36.1 35.7 - 45.8 % [facility] Mean Cell Volume 75.1(L) 82.6 - 94.4 fL [facility] Mean Cell Hemoglobin 24.9(L) 27.1 - 32.0 pg [facility] Mean Cell Hemoglobin Concentration 33.2 31.7 - 35.0 gm/dL [facility] Platelet 446(H) 145 - 357 x10(3)/mc L [facility] RDW Standard Deviation 47.6(H) 37.0 - 46.0 fL [facility] RDW coefficient of variation 17.6(H) 11.5 - 14.1 % [facility] Mean Platelet Volume 10.4 7.6 - 12.9 [facility] NRBC% auto 0.0 % [facility] NRBC Absolute 0.000 0.000 - 0.000 x10(3)/mc L [facility] Blood specimen (specimen) 09/10/2016 2:40 PM EDT 09/10/2016 2:47 PM EDT Narrative Resulting Agency Comment Spec In Lab Mariaelena Godinez MD HEMATOLOGY ORDERABL ES [facility] [place] [address] * Phosphorus (09/10/2016 2:40 PM EDT) Phosphorus 4.1 2.5 - 4.5 mg/dL [facility] Comment:result rechecked-MARIAH Blood specimen (specimen) 09/10/2016 2:40 PM EDT 09/10/2016 2:47 PM EDT Narrative Resulting Agency Comment Spec In Lab Mariaelena Godinez MD CHEMISTRY ORDERABLE S Performing Organization Address City/[facility]/ZIP Co de Phone Number [facility] [place] [address] * Magnesium (09/10/2016 2:40 PM EDT) [facility] Magnesium 0.93 0.69 - 1.07 mmol/L [facility] Blood specimen (specimen) 09/10/2016 2:40 PM EDT 09/10/2016 2:47 PM EDT Narrative Resulting Agency Comment Spec In Lab Mariaelena Godinez MD CHEMISTRY ORDERABLE S Performing Organization Address [facility] Co de Phone Number [facility] [place] [address] * (ABNORMAL) Comprehensive metabolic panel (non-fasting) (09/10/2016 2:40 PM EDT) [facility] Glucose 150 65 - 199 mg/dL [facility] Comment:Diabetes: >=200 mg/d L plus symptoms Blood Urea Nitrogen 8 8 - 18 mg/dL [facility] Creatinine 0.88 0.70 - 1.20 mg/dL [facility] Comment: Please note that the pediatric reference intervals supplied above were not validated [place] [facility] Results from pediatric patients should be interpreted in conjunction to the patient's age, height and muscle mass. Sodium 140 135 - 145 mmol/L [facility] Potassium 4.0 3.5 - 5.0 mmol/L [facility] Comment: Please note: ??Patients with WBC >100,000 may have falsely elevated Potassium levels. ??For accurate Potassium quantification in these patients send serum separator tube (gold top) for subsequent determinations. ??Contact the Clinical Chemistry Laboratory if there are any questions. Chloride 102 98 - 107 mmol/L [facility] Carbon Dioxide 20(L) 22 - 31 mmol/L [facility] Anion Gap 18(H) 5 - 15 mmol/L [facility] Calcium 9.4 8.5 - 10.5 mg/dL [facility] Protein, Total 7.2 6.1 - 8.0 gm/dL [facility] Albumin 4.0 3.2 - 5.2 gm/dL [facility] Aspartate Aminotransferase 54(H) 0 - 30 unit/L [facility] Alanine Aminotransferase 73(H) 0 - 30 unit/L [facility] Alkaline Phosphatase 99 40 - 104 unit/L [facility] Bilirubin, Total 0.3 0.2 - 1.3 mg/dL [facility] Est Glomerular Filtration Rate >60 >=60 [facility] Comment: This estimated GFR (eGFR) [...] the following links into your internet browser. [email or web address] [email or web address] Blood specimen (specimen) 09/10/2016 2:40 PM EDT 09/10/2016 2:47 PM EDT Narrative Resulting Agency Comment Spec In Lab Mariaelena Godinez MD CHEMISTRY ORDERABLE S Performing Organization Address City/[facility]/[place] [address] * Calcium (09/10/2016 2:40 PM EDT) Calcium 9.4 8.5 - 10.5 mg/dL [facility] Blood specimen (specimen) 09/10/2016 2:40 PM EDT 09/10/2016 2:47 PM EDT Narrative Resulting Agency Comment Spec In Lab Mariaelena Godinez MD CHEMISTRY ORDERABLE S Performing Organization Address City/[facility]/ZIP Co de Phone Number [facility] [place] [address] * Scan, Peripheral Blood (09/10/2016 5:15 AM EDT) Pathologist [facility] Plat estimate Normal [facility] RBC Morphology Abnormal [facility] Microcyte 1-5 /HPF [facility] Ovalocytes 1-5 /HPF [facility] Blood specimen (specimen) 09/10/2016 5:15 AM EDT 09/10/2016 5:51 AM EDT Narrative Resulting Agency Comment Spec In Lab Mariaelena Godinez MD HEMATOLOGY ORDERABL ES [place] [id number] * (ABNORMAL) Differential, Automated (09/10/2016 5:15 AM EDT) Pathologist [facility] Neutrophil % 84.2 % [facility] Neutrophil Absolute 19.49(H) 1.70 - 6.10 x10(3)/mc L [facility] Lymph % 6.5 % [facility] Lymphocytes Abs 1.5 0.9 - 3.2 x10(3)/mc L [facility] Monocyte % 8.2 % [facility] Monocyte Abs 1.9(H) 0.3 - 0.9 x10(3)/mc L [facility] Eos % 0.0 % [facility] Eosinophils Abs 0.0 0.0 - 0.4 x10(3)/mc L [facility] Basophil % 0.1 % [facility] Baso Absolute 0.0 0.0 - 0.1 x10(3)/mc L [facility] Immature Gran % 1.00 % [facility] Comment: Immature granulocytes(IG's)percentage and absolute count will include metamyelocytes, myelocytes, and promyelocytes. Blood smears from CBCs yielding IG's will be scanned manually for concordance. If this scan disagrees with the automated IG or if promyelocytes are noted, a manual differential will be performed. Immature Gran Absolute 0.23(H) 0.00 - 0.04 x10(3)/ L [facility] Blood specimen (specimen) 09/10/2016 5:15 AM EDT 09/10/2016 5:51 AM EDT Narrative Resulting Agency Comment Spec In Lab Mariaelena Godinez MD HEMATOLOGY ORDERABL ES [facility] [place] [address] * (ABNORMAL) Hemogram (09/10/2016 5:15 AM EDT) White Blood Cell 23.2(H) 4.0 - 9.5 x10(3)/[facility] Red Blood Cell 4.78 4.00 - 5.21 x10(6)/[facility] Hemoglobin 11.9 11.7 - 15.5 gm/dL [facility] Hematocrit 36.0 35.7 - 45.8 % [facility] Mean Cell Volume 75.3(L) 82.6 - 94.4 fL [facility] Mean Cell Hemoglobin 24.9(L) 27.1 - 32.0 pg [facility] Mean Cell Hemoglobin Concentration 33.1 31.7 - 35.0 gm/dL [facility] Platelet 419(H) 145 - 357 x10(3)/ L [facility] RDW Standard Deviation 47.5(H) 37.0 - 46.0 fL [facility] RDW coefficient of variation 17.3(H) 11.5 - 14.1 % [facility] Mean Platelet Volume 10.5 7.6 - 12.9 fL [facility] NRBC% auto 0.0 % [facility] NRBC Absolute 0.000 0.000 - 0.000 x10(3)/ L [facility] Blood specimen (specimen) 09/10/2016 5:15 AM EDT 09/10/2016 5:51 AM EDT Narrative Resulting Agency Comment Spec In Lab Mariaelena Godinez MD HEMATOLOGY ORDERABL ES Performing Organization Address [facility]/ZIP Co de Phone Number [facility] [place] [address] * (ABNORMAL) Phosphorus (09/10/2016 5:15 AM EDT) Phosphorus 1.3(Critic al) 2.5 - 4.5 mg/dL [facility] Comment:Called by: tang, Read back by: loretta hendrickson, Date/Time:09/10/16 06:42. Blood specimen (specimen) 09/10/2016 5:15 AM EDT 09/10/2016 5:51 AM EDT Narrative Resulting Agency Comment Spec In Lab Mariaelena Godinez MD CHEMISTRY ORDERABLE S Performing Organization Address [facility]/ZIP Co de Phone Number [facility] [facility] [place] [address] * Magnesium (09/10/2016 5:15 AM EDT) [facility] Magnesium 0.98 0.69 - 1.07 mmol/L [facility] Blood specimen (specimen) 09/10/2016 5:15 AM EDT 09/10/2016 5:51 AM EDT Narrative Resulting Agency Comment Spec In Lab Mariaelena Godinez MD CHEMISTRY ORDERABLE S Performing Organization Address [facility]/ZIP Co de Phone Number [facility] [place] [address] * (ABNORMAL) Basic Metabolic Panel (non-fasting) (09/10/2016 5:15 AM EDT) Glucose 167 65 - 199 mg/dL [facility] Comment:Diabetes: >=200 mg/d L plus symptoms Blood Urea Nitrogen 9 8 - 18 mg/dL [facility] Creatinine 0.79 0.70 - 1.20 mg/dL [facility] Comment: Please note that the pediatric reference intervals supplied above were not validated at [facility]. Results from pediatric patients should be interpreted in conjunction to the patient's age, height and muscle mass. Sodium 137 135 - 145 mmol/L [facility] Potassium 3.9 3.5 - 5.0 mmol/L [facility] Comment: Please note: ??Patients with WBC >100,000 may have falsely elevated Potassium levels. ??For accurate Potassium quantification in these patients send serum separator tube (gold top) for subsequent determinations. ??Contact the Clinical Chemistry Laboratory if there are any questions. Chloride 103 98 - 107 mmol/L [facility] Carbon Dioxide 20(L) 22 - 31 mmol/L [facility] Anion Gap 14 5 - 15 mmol/L [facility] Calcium 9.6 8.5 - 10.5 mg/dL [facility] Est Glomerular Filtration Rate >60 >=60 [facility] Comment: This estimated GFR (eGFR) [...] the following links into your internet browser. [email or web address] Blood specimen (specimen) 09/10/2016 5:15 AM EDT 09/10/2016 5:51 AM EDT Narrative Resulting Agency Comment Spec In Lab Mariaelena Godinez MD CHEMISTRY ORDERABLE S [facility] [place] [address] * (ABNORMAL) Phosphorus (09/09/2016 9:24 PM EDT) Phosphorus 1.1(Critic al) 2.5 - 4.5 mg/dL [facility] Comment:Called by: joni, Read back by: Eladia Dominique, Date/Time:09/09/16 22:39_. Blood specimen (specimen) 09/09/2016 9:24 PM EDT 09/09/2016 9:38 PM EDT Narrative Resulting Agency Comment Spec In Lab Mariaelena Godinez MD CHEMISTRY ORDERABLE S Performing Organization Address [facility] Co de Phone Number [facility] [place] [address] * Magnesium (09/09/2016 9:24 PM EDT) [facility] Magnesium 0.73 0.69 - 1.07 mmol/L [facility] Blood specimen (specimen) 09/09/2016 9:24 PM EDT 09/09/2016 9:38 PM EDT Narrative Resulting Agency Comment Spec In Lab Mariaelena Godinez MD CHEMISTRY ORDERABLE S Performing Organization Address [facility] Co de Phone Number [facility] [place] [address] * (ABNORMAL) Basic Metabolic Panel (non-fasting) (09/09/2016 9:24 PM EDT) [facility] Glucose 236(H) 65 - 199 mg/dL [facility] Comment:Diabetes: >=200 mg/d L plus symptoms Blood Urea Nitrogen 10 8 - 18 mg/dL [facility] Creatinine 0.80 0.70 - 1.20 mg/dL [facility] Comment: Please note that the pediatric reference intervals supplied above were not validated at [facility]. Results from pediatric patients should be interpreted in conjunction to the patient's age, height and muscle mass. Sodium 134(L) 135 - 145 mmol/L [facility] Potassium 4.0 3.5 - 5.0 mmol/L [facility] Comment: Please note: ??Patients with WBC >100,000 may have falsely elevated Potassium levels. ??For accurate Potassium quantification in these patients send serum separator tube (gold top) for subsequent determinations. ??Contact the Clinical Chemistry Laboratory if there are any questions. Chloride 100 98 - 107 mmol/L [facility] Carbon Dioxide 19(L) 22 - 31 mmol/L [facility] Anion Gap 15 5 - 15 mmol/L [facility] Calcium 9.0 8.5 - 10.5 mg/dL [facility] Est Glomerular Filtration Rate >60 >=60 [facility] Comment: This estimated GFR (eGFR) [...] the following links into your internet browser. [email or web address] Blood specimen (specimen) 09/09/2016 9:24 PM EDT 09/09/2016 9:38 PM EDT Narrative Resulting Agency Comment Spec In Lab Mariaelena Godinez MD CHEMISTRY ORDERABLE S [facility] [place] [address] * (ABNORMAL) Cardiac Enzymes (09/09/2016 9:24 PM EDT) Troponin-T <0.03 <=0.03 ng/mL [facility] Comment: 0.03 ng/mL: Represents the 99th percentile upper reference limit for normals. >0.03 ng/mL: Elevated cardiac troponin T level indicative of myocardial damage. Diagnosis of acute, evolving or recent MN requires a typical rise and gradual fall of cTnT with at least ONE of the following: a) Ischemic symptoms b) Development of pathologic Q waves on the ECG c) ECG changes indicative of eschemia (S-T segment elevation/depression) d) Coronary artery intervention Serial bloods should be obtained for testing on admission, at 6 to 9 hrs and again at 12 to 24 hrs if earlier samples are negative and the clinical index of suspicion is high. Reference: [Myocardial infarction redefined? a consensus document of the Joint Society of Cardiology/[place] [employer] Committee for the redefinition of myocardial infarction. ??Journal of the [place] [employer] 2000; 36: 959-969] Creatine Kinase 161(H) 0 - 160 unit/L [facility] Blood specimen (specimen) 09/09/2016 9:24 PM EDT 09/09/2016 9:38 PM EDT Narrative Resulting Agency Comment Spec In Lab Mariaelena Godinez MD CHEMISTRY ORDERABLE S Performing Organization Address [facility] Co de Phone Number [facility] [place] [phone] * EKG 12 Lead (09/09/2016 8:56 PM EDT) Ventricular rate 114 BPM MUSE SYSTEM Atrial Rate 114 BPM MUSE SYSTEM P-R Interval 122 ms MUSE SYSTEM QRS Duration 84 ms MUSE SYSTEM Q-T Interval 346 ms MUSE SYSTEM QTC Calculated (Bezet) 476 ms MUSE SYSTEM Calculated P [place] 37 degrees MUSE SYSTEM Calculated R [place] 9 degrees MUSE SYSTEM Calculated T [place] 9 degrees MUSE SYSTEM INTERPRETATION Sinus tachycardia Minimal voltage criteria for LVH, may be normal variant ST & T wave abnormality, consider anterolateral ischemia Abnormal ECG No previous ECGs available Confirmed by MD GARCIA ARMIN ([id number]) on 09/10/2016 2:22:59 PM MUSE SYSTEM 09/09/2016 8:56 PM EDT 09/10/2016 2:22 PM EDT Mariaelena Godinez MD ECG ORDERABLES Performing Organization Address City/[facility]/ZIP Co de Phone Number MUSE SYSTEM documented in this encounter Visit Diagnoses Diagnosis Gastroesophageal reflux disease, esophagitis presence not specified GERD (gastroesophageal reflux disease) Esophageal reflux documented in this encounter Admitting Diagnoses Diagnosis GERD (gastroesophageal reflux disease) Esophageal reflux documented in this encounter Administered Medications Inactive Administered Medications - up to 3 most recent administrations Medication Order MAR Action Action Date Dose Rate Site acetaminophen (OFIRMEV) injection 1,000 mg 1,000 mg, Intravenous, at 400 mL/hr, Administer over 15 Minutes, EVERY 8 HOURS SCHEDULED, 3 doses, First dose on Tue09/09/16 at 1645, Last dose on Tue09/10/16 at 0600, Maximum dose of acetaminophen is 4000 mg from all sources in 24 hours., Routine, Is ketorolac (Toradol) IV contraindicated? Yes, Can this patient tolerate oral medications or suppositories? No Given 09/10/2016 5:48 AM EDT 1,000 mg 400 mL/hr Given 09/09/2016 11:30 PM EDT 1,000 mg 400 mL/hr Given 09/09/2016 4:20 PM EDT 1,000 mg 400 mL/hr acetaminophen (TYLENOL) 650 mg/20.3 mL oral liquid 650 mg 650 mg, Oral, EVERY 4 HOURS PRN, Starting on Tue09/10/16 at 0556, Until 09/11/16 at 1519, Pain, Maximum dose of acetaminophen is 4,000 mg from all sources in 24 hours., Routine Given 09/10/2016 4:58 PM EDT 650 mg Given 09/10/2016 12:52 PM EDT 650 mg heparin (porcine) subcutaneous injection 5,000 Units 5,000 Units, Subcutaneous, EVERY 8 HOURS SCHEDULED, First dose on Tue09/09/16 at 2200, Until Discontinued, Routine Given 09/11/2016 5:48 AM EDT 5,000 Unit s Given 09/10/2016 2:11 PM EDT 5,000 Units Given 09/10/2016 5:47 AM EDT 5,000 Units hydrALAZINE (APRESOLINE) injection 5-10 mg 5-10 mg, Intravenous, EVERY 6 HOURS PRN, Starting on Tue09/09/16 at 1850, Until 09/11/16 at 1519, High Blood Pressure, For SBP > 160, OK to give 5 mg additional Given 09/09/2016 8:38 PM EDT 5 mg Given 09/09/2016 7:00 PM EDT 5 mg hydroCHLOROthiazide (HYDRODIURIL) tablet 12.5 mg 12.5 mg, Oral, DAILY, First dose on Tue09/10/16 at 1000, Until Discontinued, Routine Given 09/11/2016 8:18 AM EDT 12.5 mg Given 09/10/2016 10:00 AM EDT 12.5 mg HYDROmorphone (DILAUDID) 1 mg/mL PRODUCTION UNDERWRITER 50 mL Intravenous, PRODUCTION UNDERWRITER ONLY, Starting on Bev 09/09/16 at 1645, Until Tue09/10/16 at 0932, Recovery (Recovery-Hospital Unit) New Syringe/Cartridge 09/09/2016 4:45 PM EDT HYDROmorphone (DILAUDID) syringe 0.2-0.4 mg 0.2-0.4 mg, Intravenous, EVERY 5 MIN PRN, Pain, Starting on Bev 09/09/16 at 1544, Until Bev 09/09/16 at 1810, For moderate pain (4-6) give: 0.2 mg every 5 minute prn For severe pain (7-10) give: 0.4 mg every 5 minutes prn Maximum dose: 4 mg per hour Hold for respiratory rate less than 10 per minute., PACU Recovery Given 09/09/2016 5:24 PM EDT 0.4 mg Given 09/09/2016 4:53 PM EDT 0.4 mg Given 09/09/2016 4:34 PM EDT 0.4 mg lactated Ringers infusion 1,000 mL 1,000 mL, at 100 mL/hr, Intravenous, CONTINUOUS, Starting on Bev 09/09/16 at 1115, Until Bev 09/09/16 at 1810, Day of Surgery (Day of Procedure) New Bag 09/09/2016 11:15 AM EDT 1,000 mLs 100 mL/hr lactated Ringers infusion 1,000 mL 1,000 mL, at 100 mL/hr, Intravenous, CONTINUOUS, Starting on Bev 09/09/16 at 1645, Until Tue09/10/16 at 0932, Recovery (Recovery-Hospital Unit) New Bag 09/10/2016 6:18 AM EDT 1,000 mLs 100 mL /hr New Bag 09/09/2016 4:30 PM EDT 1,000 mLs 100 mL/hr magnesium sulfate 1g in dextrose 5% 100mL 1 g, Intravenous, ONCE, 1 dose, On Tue09/10/16 at 0215, Administer over 60 Minutes New Bag 09/10/2016 2:24 AM EDT 1 g 100 mL/hr ondansetron (ZOFRAN) injection 4 mg 4 mg, Intravenous, EVERY 30 MIN PRN, Starting on Bev 09/09/16 at 1544, Until Bev 09/09/16 at 1810, Nausea, May repeat 4 mg once in 30 minutes. If multiple antiemetics ordered, use ondansetron first and if ineffective use prochlorperazine second and if ineffective use promethazine, PACU Recovery Given 09/09/2016 4:33 PM EDT 4 mg ondansetron (ZOFRAN) injection 4 mg 4 mg, Intravenous, EVERY 8 HOURS PRN, Starting on Bev 09/09/16 at 1850, Until 09/11/16 at 1519, Nausea, May repeat times one in 30 minutes if ineffective. If multiple antiemetics are ordered, use ondanstron first, Recovery (Recovery-Hospital Unit) Given 09/09/2016 10:35 PM EDT 4 mg ondansetron (ZOFRAN) tablet 4 mg 4 mg, Oral, EVERY 8 HOURS PRN, Starting on Bev 09/09/16 at 1850, Until 09/11/16 at 1519, Nausea, Vomiting, If multiple antiemetics are ordered, use ondansetron first. PO Preferred. If patient unable to take PO, may give IV if ordered. May repeat times one in 45 minutes if ineffective., Recovery (Recovery-Hospital Unit), Routine oxyCODONE (ROXICODONE) 5 mg/5 mL solution 5 mg 5 mg, Oral, EVERY 4 HOURS PRN, Starting on Bev 09/09/16 at 1615, Until Tue09/10/16 at 1249, Pain, Routine Given 09/10/2016 9:55 AM EDT 5 mg oxyCODONE (ROXICODONE) 5 mg/5 mL solution 5-10 mg 5-10 mg, Oral, EVERY 4 HOURS PRN, Starting on Tue09/10/16 at 1248, Until 09/11/16 at 1519, Pain, for pain 1-5 give 5mg; for pain 6-10 give 10mg, Routine Given 09/11/2016 8:19 AM EDT 10 mg Given 09/11/2016 3:11 AM EDT 10 mg Given 09/10/2016 10:28 PM EDT 10 mg potassium phosphate (monobasic) (K-PHOS) tablet 500 mg 500 mg, Oral, 4 TIMES DAILY WITH MEALS & NIGHTLY, 4 doses, First dose on Tue09/09/16 at 2345, Last dose on Tue09/10/16 at 1700, Dissolve tablets in 6-8 oz of water; for best results, soak tablets in water for 2-5 minutes, then stir and give to patient., STAT Given 09/10/2016 12:45 AM EDT 500 mg potassium phosphate 15 mMol in sodium chloride 0.9% 250 mL 15 mmol, Intravenous, EVERY 4 HOURS, 4 doses, First dose on Tue09/10/16 at 0800, Last dose on Tue09/10/16 at 2000, Administer over 4 Hours, Administer over 4-6 hours New Bag 09/10/2016 10:29 PM EDT 15 mmol 62.5 mL/hr New Bag 09/10/2016 6:11 PM EDT 15 mmol 62.5 mL/hr New Bag 09/10/2016 2:11 PM EDT 15 mmol 62.5 mL/hr prochlorperazine (COMPAZINE) injection 10 mg 10 mg, Intravenous, EVERY 6 HOURS PRN, Starting on Bev 09/09/16 at 1850, Until 09/11/16 at 1519, Nausea, Vomiting, If multiple antiemetics are ordered, use ondansetron first. If ondansetron ineffective use prochlorperazine. , Recovery (Recovery-Hospital Unit), Routine Given 09/10/2016 1:05 AM EDT 10 mg prochlorperazine (COMPAZINE) tablet 10 mg 10 mg, Oral, EVERY 6 HOURS PRN, Starting on Bev 09/09/16 at 1850, Until 09/11/16 at 1519, Nausea, Vomiting, If multiple antiemetics are ordered, use ondansetron first. If ondansetron ineffective use prochlorperazine. PO Preferred. If patient unable to take PO, may give IV if ordered., Recovery (Recovery-Hospital Unit), Routine sodium chloride 0.9 % flush 5 mL 5 mL, Intravenous, 2 TIMES DAILY, First dose on Bev 09/09/16 at 2100, Until Discontinued, Recovery (Recovery-Hospital Unit), Routine Given 09/11/2016 8:21 AM EDT 5 mLs Given 09/10/2016 9:00 PM EDT 5 mLs Given 09/10/2016 9:00 AM EDT 5 mLs documented in this encounter Active and Recently Administered Medications Times are shown in EDT. Scheduled Medication Order 09/09/2016 09/10/2016 09/11/2016 acetaminophen (OFIRMEV) injection 1,000 mg (COMPLETED) 1,000 mg, Intravenous, at 400 mL/hr, Administer over 15 Minutes, EVERY 8 HOURS SCHEDULED, 3 doses, First dose on Bev 09/09/16 at 1645, Last dose on Tue09/10/16 at 0600, Maximum dose of acetaminophen is 4000 mg from all sources in 24 hours., Routine, Is ketorolac (Toradol) IV contraindicated? Yes, Can this patient tolerate oral medications or suppositories? No 1620 (Given - Provider: Marylin Hand RN)2330 (Given - Provider: Silvana Hanson RN) 0548 (Given - Provider: Loretta Hendrickson RN) ceFAZolin (ANCEF) 3g in dextrose 5% 100 mL (COMPLETED) 3 g, Intravenous, 30 MIN PRE-OP, 1 dose, On Tue09/10/16 at 0000, Administer over 30 Minutes, Indication for (Active or Suspected): Prophylaxis 1307 (Given - Provider: Rodri Mathews MD) 0000 (Not Given - Provider: Loretta Hendrickson RN - Reason: See comment - Comment: pt in OR) heparin (porcine) subcutaneous injection 5,000 Units 5,000 Units, Subcutaneous, EVERY 8 HOURS SCHEDULED, First dose on Tue09/09/16 at 2200, Until Discontinued, Routine 2327 (Given - Provider: Silvana Hanson, DAVID) 0547 (Given - Provider: Loretta Hendrickson RN)1411 (Given - Provider: Gia Barnes RN)2229 (Not Given - Provider: Adelina Pradhan RN - Reason: Patient/family refused) 0548 (Given - Provider: Adelina Pradhan RN) hydroCHLOROthiazide (HYDRODIURIL) tablet 12.5 mg 12.5 mg, Oral, DAILY, First dose on Tue09/10/16 at 1000, Until Discontinued, Routine 1000 (Given - Provider: Wandy Leiva RN) 0818 (Given - Provider: Bianka Mccabe, RN) magnesium sulfate 1g in dextrose 5% 100mL (COMPLETED) 1 g, Intravenous, ONCE, 1 dose, On Tue09/10/16 at 0215, Administer over 60 Minutes 0224 (New Bag - Provider: Loretta Hendrickson, DAVID) potassium phosphate (monobasic) (K-PHOS) tablet 500 mg (CANCELED) 500 mg, Oral, 4 TIMES DAILY WITH MEALS & NIGHTLY, 4 doses, First dose on Tue09/09/16 at 2345, Last dose on Tue09/10/16 at 1700, Dissolve tablets in 6-8 oz of water; for best results, soak tablets in water for 2-5 minutes, then stir and give to patient., STAT 0045 (Given - Provider: Loretta Hendrickson RN)0800 (Not Given - Provider: Wandy Leiva RN - Reason: Medication Discontinued) potassium phosphate 15 mMol in sodium chloride 0.9% 250 mL (COMPLETED) 15 mmol, Intravenous, EVERY 4 HOURS, 4 doses, First dose on Tue09/10/16 at 0800, Last dose on Tue09/10/16 at 2000, Administer over 4 Hours, Administer over 4-6 hours 0941 (New Bag - Provider: Wandy Leiva RN)1411 (New Bag - Provider: Gia Barnes RN)1811 (New Bag - Provider: Wandy Leiva RN)2229 (New Bag - Provider: Adelina Pradhan, DAVID) sodium chloride 0.9 % flush 5 mL 5 mL, Intravenous, 2 TIMES DAILY, First dose on Tue09/09/16 at 2100, Until Discontinued, Recovery (Recovery-Hospital Unit), Routine 2037 (Given - Provider: Loretta Hendrickson, DAVID) 0900 (Given - Provider: Wandy Leiva RN)2100 (Given - Provider: Adelina Pradhan, DAVID) 0821 (Given - Provider: Bianka Mccabe, DAVID) Continuous Medication Order 09/09/2016 09/10/2016 09/11/2016 HYDROmorphone (DILAUDID) 1 mg/mL PRODUCTION UNDERWRITER 50 mL (CANCELED) Intravenous, PRODUCTION UNDERWRITER ONLY, Starting on Tue09/09/16 at 1645, Until Tue09/10/16 at 0932, Recovery (Recovery-Hospital Unit) 1645 (New Syringe/Cartridge - Provider: Marylin Hand RN) lactated Ringers infusion 1,000 mL (CANCELED) 1,000 mL, at 100 mL/hr, Intravenous, CONTINUOUS, Starting on Bev 09/09/16 at 1115, Until Bev 09/09/16 at 1810, Day of Surgery (Day of Procedure) 1115 (New Bag - Provider: Renee Almaguer RN)1540 (Anesthesia Volume Adjustment - Provider: Rodri Mathews MD) lactated Ringers infusion 1,000 mL (CANCELED) 1,000 mL, at 100 mL/hr, Intravenous, CONTINUOUS, Starting on Bev 09/09/16 at 1645, Until Tue09/10/16 at 0932, Recovery (Recovery-Hospital Unit) 1630 (New Bag - Provider: Marylin Hand RN) 0618 (New Bag - Provider: Loretta Hendrickson RN) PRN Medication Order 09/09/2016 09/10/2016 09/11/2016 acetaminophen (TYLENOL) 650 mg/20.3 mL oral liquid 650 mg 650 mg, Oral, EVERY 4 HOURS PRN, Starting on 09/10/16 at 0556, Until 09/11/16 at 1519, Pain, Maximum dose of acetaminophen is 4,000 mg from all sources in 24 hours., Routine 1252 (Given - Provider: Gia Barnes, DAVID)1658 (Given - Provider: Gia Barnes, RN) BUpivacaine (PF) (MARCAINE) 0.25 % (2.5 mg/mL) injection (CANCELED) ONCE PRN, Starting on Bev 09/09/16 at 1353, Until 09/11/16 at 1519, Intra-Operative (Intra-Procedure), Routine 1353 (Given - Provider: Mariaelena Godinez MD) diphenhydrAMINE (BENADRYL) injection 25 mg 25 mg, Intravenous, EVERY 30 MIN PRN, 2 doses, Starting on Bev 09/09/16 at 1850, Until 09/11/16 at 1519, Itching, May repeat dose in 30 minutes if pruritis not relieved. Per PRODUCTION UNDERWRITER order., Recovery (Recovery-Hospital Unit), Routine hydrALAZINE (APRESOLINE) injection 5-10 mg 5-10 mg, Intravenous, EVERY 6 HOURS PRN, Starting on Bev 09/09/16 at 1850, Until 09/11/16 at 1519, High Blood Pressure, For SBP > 160, OK to give 5 mg additional 1900 (Given - Provider: Bianka Mccabe RN)2037 (Given - Provider: Loretta Hendrickson, DAVID) HYDROmorphone (DILAUDID) syringe 0.2-0.4 mg (CANCELED) 0.2-0.4 mg, Intravenous, EVERY 5 MIN PRN, Pain, Starting on Bev 09/09/16 at 1544, Until Bev 09/09/16 at 1810, For moderate pain (4-6) give: 0.2 mg every 5 minute prn For severe pain (7-10) give: 0.4 mg every 5 minutes prn Maximum dose: 4 mg per hour Hold for respiratory rate less than 10 per minute., PACU Recovery 1608 (Given - Provider: Enid Hunter RN)1634 (Given - Provider: Marylin Hand RN)1653 (Given - Provider: Enid Hunter, DAVID)1724 (Given - Provider: Enid Hunter, DAVID) lidocaine (XYLOCAINE) 10 mg/mL (1 %) injection 3 mg 3 mg (0.3 mL), Subcutaneous, ONCE PRN, 1 dose, Starting on Bev 09/09/16 at 1850, Until 09/11/16 at 1519, for discomfort with PIV insertion, Recovery (Recovery-Hospital Unit), Routine naloxone (NARCAN) injection 0.2 mg 0.2 mg, Intravenous, EVERY 1 MIN PRN, Starting on Bev 09/09/16 at 1850, Until 09/11/16 at 1519, Opioid Reversal, May repeat every 60 seconds to increase respiratory rate. DO NOT exceed 2 mg total dose. Per PRODUCTION UNDERWRITER order., Recovery (Recovery-Hospital Unit), Routine ondansetron (ZOFRAN) injection 4 mg (CANCELED) 4 mg, Intravenous, EVERY 30 MIN PRN, Starting on Bev 09/09/16 at 1544, Until Bev 7/27/17 at 1810, Nausea, May repeat 4 mg once in 30 minutes. If multiple antiemetics ordered, use ondansetron first and if ineffective use prochlorperazine second and if ineffective use promethazine, PACU Recovery 1633 (Given - Provider: Marylin Hand RN) ondansetron (ZOFRAN) injection 4 mg(Linked Group 1) 4 mg, Intravenous, EVERY 8 HOURS PRN, Starting on Bev 09/09/16 at 1850, Until 09/11/16 at 1519, Nausea, May repeat times one in 30 minutes if ineffective. If multiple antiemetics are ordered, use ondanstron first, Recovery (Recovery-Hospital Unit) 2235 (Given - Provider: Loretta Hendrickson RN) ondansetron (ZOFRAN) tablet 4 mg(Linked Group 1) 4 mg, Oral, EVERY 8 HOURS PRN, Starting on Bev 09/09/16 at 1850, Until 09/11/16 at 1519, Nausea, Vomiting, If multiple antiemetics are ordered, use ondansetron first. PO Preferred. If patient unable to take PO, may give IV if ordered. May repeat times one in 45 minutes if ineffective., Recovery (Recovery-Hospital Unit), Routine 2235 (See Alternative - Provider: Loretta Hendrickson RN) oxyCODONE (ROXICODONE) 5 mg/5 mL solution 5 mg (CANCELED) 5 mg, Oral, EVERY 4 HOURS PRN, Starting on Bev 09/09/16 at 1615, Until 09/10/16 at 1249, Pain, Routine 0955 (Given - Provider: Gia Barnes, DAVID) oxyCODONE (ROXICODONE) 5 mg/5 mL solution 5-10 mg 5-10 mg, Oral, EVERY 4 HOURS PRN, Starting on 09/10/16 at 1248, Until 09/11/16 at 1519, Pain, for pain 1-5 give 5mg; for pain 6-10 give 10mg, Routine 1411 (Given - Provider: Gia Barnes, DAVID)1810 (Given - Provider: Wandy Leiva RN)2228 (Given - Provider: Adelina Pradhan RN) 0311 (Given - Provider: Brook rIaheta, DAVID)0819 (Given - Provider: Bianka Mccabe RN) prochlorperazine (COMPAZINE) injection 10 mg(Linked Group 2) 10 mg, Intravenous, EVERY 6 HOURS PRN, Starting on Bev 7 at 1850, Until 09/11/16 at 1519, Nausea, Vomiting, If multiple antiemetics are ordered, use ondansetron first. If ondansetron ineffective use prochlorperazine. , Recovery (Recovery-Hospital Unit), Routine 0105 (Given - Provider: Loretta Hendrickson, DAVID) prochlorperazine (COMPAZINE) tablet 10 mg(Linked Group 2) 10 mg, Oral, EVERY 6 HOURS PRN, Starting on Bev 7 at 1850, Until 09/11/16 at 1519, Nausea, Vomiting, If multiple antiemetics are ordered, use ondansetron first. If ondansetron ineffective use prochlorperazine. PO Preferred. If patient unable to take PO, may give IV if ordered., Recovery (Recovery-Hospital Unit), Routine 0105 (See Alternative - Provider: Loretta Hendrickson, DAVID) sodium chloride 0.9 % flush 5-20 mL 5-20 mL, Intravenous, EVERY 1 MIN PRN, Starting on Bev 09/09/16 at 1850, Until 09/11/16 at 1519, flush, Flush pertains to all indwelling lines. Flush per protocol found in the job aid using the link provided on this medication record., Recovery (Recovery-Hospital Unit), Routine Linked Groups Order Group 1: ondansetron (ZOFRAN) tablet 4 mgJump to med 4 mg, Oral, EVERY 8 HOURS PRN, Starting on Bev 09/09/16 at 1850, Until 09/11/16 at 1519, Nausea, Vomiting, If multiple antiemetics are ordered, use ondansetron first. PO Preferred. If patient unable to take PO, may give IV if ordered. May repeat times one in 45 minutes if ineffective., Recovery (Recovery-Hospital Unit), Routine Or ondansetron (ZOFRAN) injection 4 mgJump to med 4 mg, Intravenous, EVERY 8 HOURS PRN, Starting on Bev 09/09/16 at 1850, Until 09/11/16 at 1519, Nausea, May repeat times one in 30 minutes if ineffective. If multiple antiemetics are ordered, use ondanstron first, Recovery (Recovery- Hospital Unit) Group 2: prochlorperazine (COMPAZINE) tablet 10 mgJump to med 10 mg, Oral, EVERY 6 HOURS PRN, Starting on Bev 09/09/16 at 1850, Until 09/11/16 at 1519, Nausea, Vomiting, If multiple antiemetics are ordered, use ondansetron first. If ondansetron ineffective use prochlorperazine. PO Preferred. If patient unable to take PO, may give IV if ordered., Recovery (Recovery-Hospital Unit), Routine Or prochlorperazine (COMPAZINE) injection 10 mgJump to med 10 mg, Intravenous, EVERY 6 HOURS PRN, Starting on Bev 09/09/16 at 1850, Until 09/11/16 at 1519, Nausea, Vomiting, If multiple antiemetics are ordered, use ondansetron first. If ondansetron ineffective use prochlorperazine. , Recovery (Recovery-Hospital Unit), Routine documented in this encounter Care Teams Head Wrestling Coach Relationship Specialty Start Date End Date Shital Brooke, STORAGE MANAGEMENT ARCHITECT [address] [place] [address] PCP - General Family Medicine 07/20/16 12/04/17 documented as of this encounter
--- OUTSIDE RECORDS SUMMARY | 2023-10-06 17:05 | XMS_ITS | Encounter Summary ---
Author Organization [facility] Address [facility] [address] [place] [address] Care Team Providers Care Air Traffic Instructor Name Role Phone Shital Brooke APRN Primary Care Provider [phone] Encounter Details Date Type Department Care Team (Late st Contact Info) Description 09/25/2016 Telephone [place] [phone] Marybeth Barnes MD [facility] [place] [address] Social History Tobacco Use Types Packs/Day Years [...] encounter Miscellaneous Notes * Telephone Encounter - Marybeth Barnes MD - 09/25/2016 3:20 PM EDT [place] Manager Telephone Note Pt is s/p lap Molly repair on 09/09. She calls complaining of sore throat with runny nose and says nyquil 'isn't doing it' and is requesting codeine derivative medications to assist with cough. Explained that this is most likely not related to her surgery and she will need to be evaluated by a primary care provider for both her symptoms and for a narcotic derived prescription to manage her symptom s. Patient understood and agreed with plan. MARYBETH BARNES MD 09/25/2016 documented in this encounter Plan of Treatment Not on file documented as of this encounter Visit Diagnoses Not on filedocumented in this encounter Care Teams Air Traffic Instructor Relationship Specialty Start Date End Date Shital Brooke, SURGICAL COORDINATOR [address] [place] [address] PCP - General Family Medicine 07/20/16 12/04/17 documented as of this encounter
--- OUTSIDE RECORDS SUMMARY | 2023-10-06 17:05 | XMS_ITS | Encounter Summary ---
Author Organization [facility] [address] Care Team Providers Care Crime Scene Investigator Name Role Phone Shital Brooke APRN Primary Care Provider [phone] Encounter Details Date Type Department Care Team (Late st Contact Info) Description 10/25/2016 Telephone [place] [phone] Alannah Maza Social History Tobacco Use Types Packs/Day Years [...] encounter Miscellaneous Notes * Telephone Encounter - Alannah Maza - 10/25/2016 10:22 AM EDT Please completed the following grid for all new vertigo pts. Make the unshaded boxes yes for postive responses to the questions on the right. Make an appointment only for those services that have a postive response (yes) in that column. Neurotology Neurology Vestibular Rehab Audiology VNG with AE Do you have hearing loss that is worse in one ear? no no Does your ear feel full or ring ONLY when or around the time you have a dizzy spell? sometimes sometimes Is your dizziness worse when you lie down or roll over in bed? (BPPV) Schedule VNG first then PT nono Have you been previously seen or have an appointment with Neurology for your dizziness? no no Have you been previously seen an ENT doctor for your dizziness? 1. schedule VNG if have not had a VNG for 1 year or more 2. schedule audiogram if >6 mo since last AE no no no Do you have a history of migraine headaches? yes yes yes Do you have blackout spells or have your passed out at any time from feeling dizzy? yes yes yes Are you over 70 yrs of age or have balance problems on a regular basis? n/a n/a Appointments to be made (any marked unshaded box in the column above): Checklist for appts Completed If you have been seen in Neurology or ENT please provide all notes prior to your appointment. Please have them faxed to [phone]. Please provide any imaging (x-rays, CT Scans, MRIs) prior to your appointment. This would include the images along with the assessment of the scans. unsure We will be sending some information for your appointment. There is a questionnaire that needs to befilled out and mailed in prior to your appointment or brought in the day of your appointment. Please make sure to complete this questionnaire as it provides valuable information for our vertigo team. Should you have any questions regarding your appointment, please contact us at [phone]. If they are yes for BPPV they should see PT (Here at [facility] no outside PT ) first and no VNG Date Mailed Vertigo Information: documented in this encounter Plan of Treatment Not on file documented as of this encounter Visit Diagnoses Not on filedocumented in this encounter Care Teams Crime Scene Investigator Relationship Specialty Start Date End Date Shital Brooke APRN [address] [place] [address] PCP - General Family Medicine 07/20/16 12/04/17 documented as of this encounter
--- OUTSIDE RECORDS SUMMARY | 2023-10-06 17:05 | XMS_ITS | Encounter Summary ---
Author Organization [facility] Address [facility] [place] [address] Care Team Providers Care Belling Machine Operator Name Role Phone Shital Brooke APRN Primary Care Provider [phone] Encounter Details Date Type Department Care Team (Late st Contact Info) Description 09/19/2016 Orders [place] [address] Miguel Avila MD [facility] [place] [address] Social History Tobacco Use Types Packs/Day Years Used Date Smoking Tobacco: Every Day Cigarettes Alcohol Use Standard Drinks/Week Comments No 0 (1 standard drink = 0.6 oz pur e alcohol) Sex and Gender Information Value Date Recorded Sex Assigned at Not on file Gender Identity Not on file Sexual Orientation Not on file documented as of this encounter Progress Notes * Miguel Avila MD - 09/19/2016 8:54 AM EDT Surgery Telephone Note Received call from Ruby Celestine who reports she has been doing relatively well after her surgerybut still has some epigastric pain and mild pain over her lower ribs on the left. This is worst when she lays down and finds it hard to get comfortable. Pain is improving when compared to pain at time of discharge. Is using tylenol as well. Patient will run out of oxycodone liquid today and is hoping for a refill. Denies fever, chills, N/V, CP, SOB. Patient also would like to know if it is safe to resume miralax for constipation. Discussed that this is in fact safe and was listed on her AVS as medication to continue. Have written for 3 days of oxycodone liquid. Patient will contact the clinic if she has ongoing pain or pain that is worsening to be evaluated. Reviewed worrisome signs and symptoms with patient and she reported understanding and would contact the clinic with any further questions or concerns. Adriane Avila Vascular Surgery, PGY2 Pager #[phone] documented in this encounter Plan of Treatment Not on file documented as of this encounter Visit Diagnoses Not on filedocumented in this encounter Care Teams Belling Machine Operator Relationship Specialty Start Date End Date Shital Brooke APRN [address] [place] [address] PCP - General Family Medicine 07/20/16 12/04/17 documented as of this encounter
--- OUTSIDE RECORDS SUMMARY | 2023-10-06 17:05 | XMS_ITS | Encounter Summary ---
Author Organization [facility] Address [facility] [address] [place] [address] Care Team Providers Care Card Dealer Name Role Phone Shital Brooke APRN Primary Care Provider [phone] Encounter Details Date Type Department Care Team (Latest Contact Info) Description 11/03/2016 4:40 PM EDT Office Visit [place] [address] César Barron MD [facility] [place] [address] Paraesophageal hernia Social History Tobacco Use Types [...] as of this encounter Progress Notes * César Barron MD - 11/03/2016 4:40 PM EDT Ruby Sprague is a 36-year-old female who presents in followup. She is status post laparoscopic Molly fundoplication and hernia repair 09/09/16. She initially did well from surgery; however, she states that almost a month out from surgery she developed chest pain that led to an evaluation in the ED which was negative for any diagnostic abnormalities, and she states now that she feels as though some of her reflux symptoms have returned, and she feels food is catching in her upper abdomen. As best I can tell, this may represent some rebound hyperacidity secondary to elevated gastrin levels on chronic PPI use. My advice would be to go back on a PPI on a daily basis for the next 2 weeks, followed by every other day use for the next 2 weeks and then stop. I would like to see her back in 4 weeks with a barium swallow to allow us to assess the postoperative anatomy, and I will see her back on that same day. Otherwise, on exam, all trocar sites are healing well without any evidence of erythema or herniation. Her abdomen is soft, flat, and nontender. documented in this encounter Plan of Treatment Not on file documented as of this encounter Visit Diagnoses Diagnosis Paraesophageal hernia Diaphragmatic hernia without mention of obstruction or gangrene documented in this encounter Care Teams Card Dealer Relationship Specialty Start Date End Date Shital Brooke, JANET [address] [place] [address] PCP - General Family Medicine 07/20/16 12/04/17 documented as of this encounter
--- OUTSIDE RECORDS SUMMARY | 2023-10-06 17:05 | XMS_ITS | Encounter Summary ---
Author Organization [facility] Address [facility] [address] [place] [address] Care Team Providers Care Crime Victim Specialist Name Role Phone Edwardo Shital JANET Primary Care Provider [phone] Reason for Referral * Consultation (Routine) - Closed Specialty Diagnoses / Procedures Referred By Dayan parker Referred To Contact Plastic Surgery Diagnoses Bloated abdomen John Garner APRN [facility] [place] [address] [facility] Surg [address] [place] [address] Referral ID Status Reason Start Date Expiration Date V isits Requested Visits Authorized [id number] Closed Consult, Test & Treat 03/28/2017 03/28/2018 1 1 Encounter Details Date Type Department Care Team (Late st Contact Info) Description 03/28/2017 9:30 AM EST Office [place] [address] John Garner APRN [facility] [place] [address] Chronic idiopathic constipation; Bloated abdomen Social History Tobacco Use Types Packs/Day Years [...] Sign Reading Time Taken Comments Blood Pressure 117/73 03/28/2017 9:31 AM EST Pulse 137 03/28/2017 9:31 AM EST Temperature - - Respiratory Rate - - Oxygen Saturation - - Inhaled Oxygen Concentration - - Weight 65.9 kg (145 lb 3.2 oz) 03/28/2017 9:31 A M EST Height 148.6 cm (4' 10.5) 03/28/2017 9:31 AM ES T Body Mass Index 29.83 03/28/2017 9:31 AM EST documented in this encounter Progress Notes * John Garner RN - 03/28/2017 9:30 AM EST _25___minutes of this__30__-minute visit were spent in face to face discussion and/or counseling the patient, regarding symptoms and treatment options as detailed below. Pt is here due to stomach issues. Pt has a hx of gerd. Grade C esophagitis. Underwent a mirtha in August 2016. Pt is having upper abdominal distention post-prandially. Does not improve with passage of gas. Significant amount of flatulence. No reflux, dysphagia, odynophagia, n/v. Weight overall stable. Reviewed diet. Salads, milk, whole wheat products. No correlation with sx and diet. No chronic nsaids. Long hx of constipation. Slow transit. Without laxatives will not have a bowel movement for severalweeks. a month. Takes miralax 17-34grams every two weeks. No blood in stool. No fecal seepage. No straining. Feels empty after defecation. Pt discussed her long hx of back pain. She has lost some weight. But would like to consult with someone about a tummy tuck. Plan: 1. Gas/bloat/distention: low fodmap diet; kefir; schedule hbt 2. CIC: possible slow transit. Discussed using miralax regularly. kub today 3. Gif in 6-8 weeks documented in this encounter Plan of Treatment Scheduled Referrals Name Type Priority Associated Diagnoses Orde r Schedule Referral to Plastic Surgery Outpatient Referral Routine Bloated abdomen Ordered: 03/28/2017 documented as of this encounter Visit Diagnoses Diagnosis Chronic idiopathic constipation Unspecified constipation Bloated abdomen Flatulence, eructation, and gas pain documented in this encounter Care Teams Crime Victim Specialist Relationship Specialty Start Date End Date Shital Brooke, JANET [address] [place] [address] PCP - General Family Medicine 07/20/16 12/04/17 documented as of this encounter
--- OUTSIDE RECORDS SUMMARY | 2023-10-06 17:05 | XMS_ITS | Encounter Summary ---
Author Organization [facility] [place] [address] Care Team Providers Care Flight Test Data Acquisition Technician Name Role Phone Talisha Treviño MD Primary Care Provider [phone] Encounter Details Date Type Department Care Team (Late st Contact Info) Description 09/19/2018 Telephone [place] [address] Serenity Pacheco Social History Tobacco Use Types Packs/Day Years [...] encounter Miscellaneous Notes * Telephone Encounter - Serenity Pacheco - 09/19/2018 1:33 PM EDT BREATH TEST CLINICAL SAFETY CHECKLIST 09/19/2018 Serenity Sprague [address] [facility] [address] [facility] [address] [id number] : 1980 REFERRING PROVIDER: John PRIMARY CARE PROVIDER: Talisha Treviño MD PRIMARY SYMPTOM (DIARRHEA, ABDOMINAL PAIN, ETC): other: gas, bloat, distention SUGAR(S) REQUESTED (lactose, lactulose, glucose, fructose): lactulose If a provider requests lactose or fructose breath testing: Do we have documentation of previous lactulose or glucose breath testing? IF YES: ok to schedule IF NO: The provider must submit an additional request for a lactulose or glucose breath test. DO NOT SCHEDULE either breath test, until this request is submitted. Separate breath test appointments are needed to test multiple sugars. If a patient needs more than one breath test, the breath tests must be scheduled on separate days. QUESTIONS FOR THE PATIENT DIABETIC? n Diabetic patients should speak with their PCP or managing provider at least two weeks before the test to ask what medication or insulin adjustments are needed for testing. Patients fast 12 hours before testing and the test lasts 2-3 hours. DID THE PATIENT HAVE A COLONOSCOPY OR ANTIBIOTICS IN THE LAST 4 WEEKS? No to both If yes, the breath test must be scheduled at least four weeks after colonoscopy or last antibiotic dose. DOES THE PATIENT USE A WHEELCHAIR? n VERBAL PATIENT INSTRUCTIONS The written instructions are very important for the patient to review and contain specific dietary and medication instructions prior to testing. These instructions will give the patient the most accurate test result. The patient should speak with their referring provider or our office if they have any questions. APPOINTMENT NOTES TEMPLATE lactulose breath test, symptom: other: gas, bloat, distention, RMD: Traciparveen, PCP: Talisha Treviño MD, wheelchair: No Please copy/paste the template above for each breath test that is needed. documented in this encounter Plan of Treatment Not on file documented as of this encounter Visit Diagnoses Not on filedocumented in this encounter Care Teams Flight Test Data Acquisition Technician Relationship Specialty Start Date End Date Talisha Treviño MD [address] [place] [id number] PCP - General Family Medicine 12/05/17 10/27/20 documented as of this encounter
--- OUTSIDE RECORDS SUMMARY | 2023-10-06 17:05 | XMS_ITS | Encounter Summary ---
Author Organization [facility] Address [facility] [address] [place] [address] Care Team Providers Care Policy Loan Calculator Name Role Phone Shital Brooke APRN Primary Care Provider [phone] Encounter Details Date Type Department Care Team (Latest Contact Info) Description 07/30/2016 6:46 AM EDT - 07/30/2016 9:47 AM EDT Hospital En[place] [address] Jovani Treviño MD [facility] [place] [address] Discharge Disposition: Home Social History Tobacco Use [...] Sign Reading Time Taken Comments Blood Pressure 161/81 07/30/2016 9:20 AM EDT Pulse 92 07/30/2016 8:49 AM EDT Temperature - - Respiratory Rate 18 07/30/2016 8:49 AM EDT Oxygen Saturation 96% 07/30/2016 9:20 AM EDT Inhaled Oxygen Concentration - - Weight - - Height - - Body Mass Index - - documented in this encounter Discharge Instructions * Discharge Instructions* Gia Graves RN - 07/30/2016 8:49 AM EDT Please call [phone] before 8pm with problems, questions or concerns, after 5pm call the Hospital at [phone] and ask to speak to the Pneumatic Deicer Inspector weapons engineer and the pleating machine operator will contact that person for you. Discharge instructions reviewed with patient who expresses understanding. You may have received medications before and/or during your procedure which effects your judgement and reaction time. Do not drive, operate machinery, drink alcoholic beverages or make important decisions for 24 hours. Be careful on stairs as you may be unsteady on your feet. You may eat a regular diet as tolerated. Do not smoke if you are alone. IV site: Slight redness or tenderness is normal, you can use a warm compress if you would like. If tenderness and/or redness increase or if foul drainage occurs, please contact your Doctor. * Attachments The following attachments cannot be sent through Care Everywhere. * EGD (UPPER ENDOSCOPY): POST-OP (AMHARIC) documented in this encounter Medications at Time of Discharge Medication Sig Dispensed Refills Start Date End Date ibuprofen (ADVIL;MOTRIN) 800 mg tablet 800MG = 1 Tablet(s), PO, Three times daily 10/03/2005 omeprazole (PRILOSEC) 20 mg Capsule, Delayed Release(E.C.) Take 20 mg by mouth daily. Reported on 07/30/2016 09/11/2016 amitriptyline (ELAVIL) 100 mg Tablet Take 50 mg by mouth Daily. Reported on 08/25/2016 06/13/2019 lisinopril (PRINIVIL;ZESTRIL) 10 mg Tablet Take 10 mg by mouth. 017 meclizine (ANTIVERT) 25 mg Tablet Take 25 mg by mouth Three times a day. 06/22/2018 cyclobenzaprine (FLEXERIL) 10 mg Tablet TAKE ONE TABLET BY MOUTH AT BEDTIME NEEDED 1 06/28/2016 08/25/2016 polyethylene glycol (MIRALAX) 17 gram/dose Powder Take 17-34 g by mouth daily. 850 g 11 07/01/2016 03/28/2017 documented as of this encounter H&P Notes * Jovani Treviño MD - 07/30/2016 7:54 AM EDT PROBLEM LIST There is no problem list on file for this patient. HISTORY OF PRESENT ILLNESS Ruby Sprague is a 36 y.o. y/o who presents for EGD for dyspepsia. MEDICATIONS No current facility-administered medications on file prior to encounter. Current Outpatient Prescriptions on File Prior to Encounter Medication Sig Dispense Refill ??? amitriptyline (ELAVIL) 100 mg Tablet Take 100 mg by mouth Daily. ??? lisinopril (PRINIVIL;ZESTRIL) 10 mg Tablet Take 10 mg by mouth. ??? meclizine (ANTIVERT) 25 mg Tablet Take 25 mg by mouth Three times a day. ??? cyclobenzaprine (FLEXERIL) 10 mg Tablet TAKE ONE TABLET BY MOUTH AT BEDTIME NEEDED 1 ??? polyethylene glycol (MIRALAX) 17 gram/dose Powder Take 17-34 g by mouth daily. 850 g 11 ??? [DISCONTINUED] pantoprazole (PROTONIX) 40 mg Tablet, Delayed Release (E.C.) Take 1 tablet by mouth daily. (Patient not taking: Reported on 07/29/2016) 90 tablet 3 ??? ibuprofen (ADVIL;MOTRIN) 800 mg tablet 800MG = 1 Tablet(s), PO, Three times daily PHYSICAL EXAM: Blood pressure (!) 153/92, pulse 88, resp. rate 16, last menstrual period 07/15/2016, SpO2 94 %. GEN: Alert, cooperative. Pleasant. In NAD HEENT: No oropharyngeal lesions. Neck supple. No masses. Thyroid symmetric LUNGS: CTAB CARD: RRR without m/g/r ASAII RECENT LABS No results found for this or any previous visit (from the past 24 hour(s)). ASSESSMENT AND PLAN Ruby Sprague is a 36 y.o. y/o who presents for endoscopy. Risks extensively discussed including bleeding, infection, reaction to anesthesia, perforation, and/or other unforseen complication. Consent signed and patient well informed of the risks of the procedure. documented in this encounter Plan of Treatment Not on file documented as of this encounter Procedures Procedure Name Priority Date/Time Associated Diagnosis Comments UPPER GI ENDOSCOPY Routine 07/30/2016 8: 03 AM EDT EGD WITH BIOPSY (WRVU 2.39) 07/30/2016 8:02 AM EDT Gastroesophageal reflux disease, esophagitis presence not specified documented in this encounter Results * UPPER GI ENDOSCOPY (07/30/2016 8:03 AM EDT) Pathologist [facility] UPPER GI ENDOSCOPY [facility] Endoscopy Procedure Date: 07/30/2016 8:03 AM ? Patient Name: Ruby Sprague ? N: [id number] ? Date of : 1980 ? Age: 36 ? Order #: [id number] ? Instrument Name: [id number] ? Procedure: ? Upper GI endoscopy Indications: ? Heartburn, Abnormal PHELPS pH capsule ? results Providers: ? Jovani Treviño MD, Marco A ? Bc, DAVID, Nellie Gonzalez, ? Global Lead Referring : ?Yefri Hare Medicines: ? Fentanyl 250 micrograms IV, Midazolam ? 5 mg IV, Diphenhydramine 50 mg IV Complications: ? No immediate complications. Procedure: ? Pre-Anesthesia Assessment: ? - Prior to the procedure, a History ? and Physical was performed, and ? patient medications, allergies and ? sensitivities were reviewed. The ? patient's tolerance of previous ? anesthesia was reviewed. ? - The risks and benefits of the ? procedure and the sedation options ? and risks were discussed with the ? patient. All questions were answered ? and informed consent was obtained. ? - Patient identification and proposed ? procedure were verified prior to the ? procedure by the physician. The ? procedure was verified in the ? pre-procedure area. ? - Pre-procedure physical examination ? revealed no contraindications to ? sedation. ? - ASA Grade Assessment: II - A ? patient with mild systemic disease. ? - After reviewing the risks and ? benefits, the patient was deemed in ? satisfactory condition to undergo the ? procedure. ? - The anesthesia plan was to use ? moderate sedation/analgesia ? (conscious sedation). ? The procedure, indications, benefits, ? risks and alternatives were explained ? to the patient. Specifically ? discussed were potential ? complications including, but not ? limited to, bleeding, perforation, ? infection, missing a cancer, and ? adverse medication reactions. The ? Endoscope was introduced through the ? mouth, and advanced to the second ? part of duodenum. The patient ? tolerated the procedure well. The ? upper GI endoscopy was accomplished ? without difficulty. The patient ? tolerated the procedure well. ? Findings: ? The examined duodenum was normal. ? The entire examined stomach was normal. ? LA Grade C (one or more mucosal breaks continuous ? between tops of 2 or more mucosal folds, less than ? 75% circumference) esophagitis was found. The PHELPS ? capsule with delivery system was introduced through ? the mouth and advanced into the esophagus, such that ? the PHELPS pH capsule was positioned 29 cm from the ? incisors, which was 6 cm proximal to the GE junction. ? The PHELPS pH capsule was then deployed and attached ? to the esophageal mucosa. The delivery system was ? then withdrawn. Endoscopy was utilized for probe ? placement and diagnostic evaluation. ? Slightly nodular erythema was found throughout the ? hard palate ? Moderate Sedation: ? I was present during the intraservice time as ? documented by the sedation RN. Impression: ?- LA Grade C reflux esophagitis. ? - Slightly nodular erythema was found ? diffusely, throughout the hard palate ? - The PHELPS pH capsule was deployed. ? - No specimens collected. Recommendation: ?- Discharge patient to home ? (ambulatory). ? - Resume previous diet. ? - Continue present medications. ? - Follow an antireflux regimen. ? - Return to referring physician as ? previously scheduled. ? - Follow up PHELPS recordings ? - Follow up with ENT regarding ? findings on hard palate. ? Procedure Code(s): ?? --- Professional --- ? 77930, Esophagogastroduoden oscopy, ? flexible, transoral; diagnostic, ? including collection of specimen(s) ? by brushing or washing, when ? performed (separate procedure) ? --- Technical --- ? 28129, 59, ? Esophagogastroduoden oscopy, flexible, ? transoral; diagnostic, including ? collection of specimen(s) by brushing ? or washing, when performed (separate ? procedure) ? 18333, TC, Esophagus, ? gastroesophageal reflux test; with ? mucosal attached telemetry pH ? electrode placement, recording, ? analysis and interpretation CPT copyright 2016 [employer]. All rights reserved. The codes documented in this report are preliminary and upon security analyst review may be revised to meet current compliance requirements. Attending Participation: ? I was present and participated during the entire ? procedure, including non-jones portions. ? _ Jovani Treviño MD 07/30/2016 9:03:52 AM This report has been signed electronically. Number of Addenda: 0 Note Initiated On: 07/30/2016 8:03 AM PROVATION 07/30/2016 8:03 AM EDT Yefri Hare MD GENERAL SURGICAL ORD ERABLES PROVATION documented in this encounter Visit Diagnoses Not on filedocumented in this encounter Active and Recently Administered Medications Times are shown in EDT. PRN Medication Order 07/28/2016 07/29/2016 07/30/2016 diphenhydrAMINE (BENADRYL) injection (CANCELED) ONCE PRN, Starting on Tue07/30/16 at 0813, Until Tue07/30/16 at 1147, Intra-Operative (Intra-Procedure), Routine 0813 (Given - Provid er: Marco A Yancey RN)0816 (Given - Provider: Marco A Yancey RN) fentaNYL 50 mcg/mL multi-dose injection (CANCELED) ONCE PRN, Starting on Tue07/30/16 at 0813, Until Tue07/30/16 at 1147, Intra-Operative (Intra-Procedure), Routine 0813 (Given - Provid er: Marco A Yancey RN)0816 (Given - Provider: Marco A Yancey RN)0820 (Given - Provider: Marco A Yancey RN)0824 (Given - Provider: Marco A Yancey RN)0829 (Given - Provider: Marco A Yancey RN) midazolam (PF) (VERSED) 1 mg/mL multi-dose injection (CANCELED) ONCE PRN, Starting on Tue07/30/16 at 0823, Until Tue07/30/16 at 1147, Intra-Operative (Intra-Procedure), Routine 0813 (Given - Provid er: Marco A Yancey RN)0816 (Given - Provider: Marco A Yancey RN)0820 (Given - Provider: Marco A Yancey RN)0823 (Given - Provider: Marco A Yancey RN)0829 (Given - Provider: Marco A Yancey RN) documented in this encounter Care Teams Policy Loan Calculator Relationship Specialty Start Date End Date Shital Brooke APRN [address] [place] [address] PCP - General Family Medicine 07/20/16 12/04/17 documented as of this encounter
--- OUTSIDE RECORDS SUMMARY | 2023-10-06 17:05 | XMS_ITS | Encounter Summary ---
[place] [address] Care Team Providers Care Industrial Ecology Technician Name Role Phone Shital Brooke APRN Primary Care Provider [phone] Encounter Details Date Type Department Care Team (Latest Contact Info) Description 07/30/2016 8:00 AM EDT Procedure visit [place] [address] Gastroesophageal reflux disease, esophagitis presence not specified [...] as of this encounter Progress Notes * Brook Maddox RN - 07/30/2016 8:00 AM EDT At 8:31 Petersen capsule deployed following EGD with Dr. Jimmy Mukherjee and Dr. Javier Treviño present. Placed at 29cm from incisors without difficulty. Capsule visualized via scope with good attachment. Study being performed off acid suppression medications. First pH: 5.5 Petersen teaching completed prior to procedures. Patient verbalized understanding of Petersen procedure and use of the athletic instructor. documented in this encounter Plan of Treatment Not on file documented as of this encounter Visit Diagnoses Diagnosis Gastroesophageal reflux disease, esophagitis presence not specified documented in this encounter Care Teams Industrial Ecology Technician Relationship Specialty Start Date End Date Shital Brooke, JANET [address] [place] [address] PCP - General Family Medicine 07/20/16 12/04/17 documented as of this encounter
--- OUTSIDE RECORDS SUMMARY | 2023-10-06 17:05 | XMS_ITS | Encounter Summary ---
Author Organization [place] [address] Care Team Providers Care Ventilating Engineer Name Role Phone Talisha Treviño MD Primary Care Provider [phone] Encounter Details Date Type Department Care Team (Late st Contact Info) Description 09/15/2018 [place] [phone] Maria Guadalupe Turner Social History Tobacco Use Types Packs/Day Years [...] encounter Miscellaneous Notes * Telephone Encounter - Maria Guadalupe Turner - 09/15/2018 2:31 PM EDT Pt called in asking if she could still sched the HBT Tracia orders last year for her. I let her know I would make sure that was ok with Tracia and I would give her a call back on her mobile line whenI hear back documented in this encounter Plan of Treatment Not on file documented as of this encounter Visit Diagnoses Not on filedocumented in this encounter Care Teams Ventilating Engineer Relationship Specialty Start Date End Date Talisha Treviño MD [address] [place], [place] [address] PCP - General Family Medicine 12/05/17 10/27/20 documented as of this encounter
--- OUTSIDE RECORDS SUMMARY | 2023-10-06 17:05 | XMS_ITS | Encounter Summary ---
Author Organization [facility] Address [facility] [address] [place] [address] Care Team Providers Care Manufacturing Engineering Director Name Role Phone Shital Brooke APRN Primary Care Provider Encounter Details Date Type Department Care Team (Late st Contact Info) Description 07/30/2016 8:00 AM EDT - 07/30/2016 8:30 AM EDT [place] [address] Jovani Treviño MD [facility] [place] [address] EGD WITH BIOPSY (WRVU 2.39) Social History Tobacco Use Types Packs/Day Years [...] Sign Reading Time Taken Comments Blood Pressure 173/101 07/30/2016 8:30 AM EDT Pulse 121 07/30/2016 8:30 AM EDT Temperature - - Respiratory Rate 14 07/30/2016 8:30 AM EDT Oxygen Saturation 94% 07/30/2016 8:30 AM EDT Inhaled Oxygen Concentration - - Weight - - Height - - Body Mass Index - - documented in this encounter Discharge Instructions * Discharge Instructions* Gia Graves RN - 07/30/2016 8:49 AM EDT Please call [phone] before 8pm with problems, questions or concerns, after 5pm call the Hospital at [phone] and ask to speak to the Water Main Installer Helper exhibition designer and the dehydrator operator will contact that person for you. [...] Care Everywhere. * EGD (UPPER ENDOSCOPY): POST-OP ([place]) documented in this encounter Medications at Time [...] GI ENDOSCOPY (07/30/2016 8:03 AM EDT) Pathologist [facility] UPPER GI ENDOSCOPY [facility] Endoscopy Procedure Date: 07/30/2016 8:03 AM ? Patient Name: Ruby Sprague ? N: [id number] ? Date of : 1980 ? Age: 36 ? Order #: [id number] ? Instrument Name: [id number] ? Procedure: ? Upper GI endoscopy Indications: ? Heartburn, Abnormal PHELPS pH capsule ? results Providers: ? Jovani Treviño MD, Marco A ? Bc, DAVID, Nellie Gonzalez, ? Sales Attendant Referring : ?Yefri Hare Medicines: ? Fentanyl [...] Procedure Code(s): ?? --- Professional --- ? 98393, Esophagogastroduoden oscopy, ? flexible, transoral; diagnostic, ? including collection of specimen(s) ? by brushing or washing, when ? performed (separate procedure) ? --- Technical --- ? 44363, 59, ? Esophagogastroduoden oscopy, flexible, ? transoral; diagnostic, including ? collection of specimen(s) by brushing ? or washing, when performed (separate ? procedure) ? 38149, TC, Esophagus, ? gastroesophageal reflux test; with ? mucosal attached telemetry pH ? electrode placement, recording, ? analysis and interpretation CPT copyright 2016 [employer]. All rights reserved. The codes documented in this report are preliminary and upon insurance coder review may be revised to meet current [...] PROVATION documented in this encounter Visit Diagnoses Diagnosis Gastroesophageal reflux disease, esophagitis presence not specified documented in this encounter Administered Medications Inactive Administered Medications - up to 3 most recent administrations Medication Order MAR Action Action Date Dose Rate Site diphenhydrAMINE (BENADRYL) injection ONCE PRN, Starting on Tue07/30/16 at 0813, Until Tue07/30/16 at 1147, Intra-Operative (Intra-Procedure), Routine Given 07/30/2016 8:16 AM EDT 25 mg Given 07/30/2016 8:13 AM EDT 25 mg fentaNYL 50 mcg/mL multi-dose injection ONCE PRN, Starting on Tue07/30/16 at 0813, Until Tue07/30/16 at 1147, Intra-Operative (Intra-Procedure), Routine Given 07/30/2016 8:29 AM EDT 50 mcg Given 07/30/2016 8:24 AM EDT 50 mcg Given 07/30/2016 8:20 AM EDT 50 mcg midazolam (PF) (VERSED) 1 mg/mL multi-dose injection ONCE PRN, Starting on Tue07/30/16 at 0823, Until Tue07/30/16 at 1147, Intra-Operative (Intra-Procedure), Routine Given 07/30/2016 8:29 AM EDT 1 mg Given 07/30/2016 8:23 AM EDT 1 mg Given 07/30/2016 8:20 AM EDT 1 mg documented in this encounter Active and Recently Administered Medications Times are shown in EDT. PRN Medication Order 07/28/2016 07/29/2016 07/30/2016 diphenhydrAMINE (BENADRYL) injection (CANCELED) ONCE PRN, Starting on Tue07/30/16 at 0813, Until Tue07/30/16 at 1147, Intra-Operative (Intra-Procedure), Routine 08 (Given - Provid er: Marco A Yancey RN)0816 (Given - Provider: Marco A Yancey, DAVID) fentaNYL 50 mcg/mL multi-dose injection (CANCELED) ONCE PRN, Starting on Tue07/30/16 at 0813, Until Tue07/30/16 at 1147, Intra-Operative (Intra-Procedure), Routine 0813 (Given - Provid er: Marco A Yancey RN)0816 (Given - Provider: Marco A Yancey RN)0820 (Given - Provider: Marco A Yancey RN)0824 (Given - Provider: Marco A Yancey RN)0829 (Given - Provider: Marco A Yancey, RN) midazolam (PF) (VERSED) 1 mg/mL multi-dose injection (CANCELED) ONCE PRN, Starting on Tue07/30/16 at 0823, Until Tue07/30/16 at 1147, Intra-Operative (Intra-Procedure), Routine 0813 (Given - Provid er: Marco A Yancey, RN)0816 (Given - Provider: Marco A Yancey, DAVID)08 (Given - Provider: Marco A Yancey, DAVID)0823 (Given - Provider: Marco A Yancey, DAVID)08 (Given - Provider: Marco A Yancey, DAVID) documented in this encounter Care Teams Manufacturing Engineering Director Relationship Specialty Start Date End Date Shital Brooke, CARPENTER REPAIR [address] [place] [address] PCP - General Family Medicine 07/20/16 12/04/17 documented as of this encounter
--- OUTSIDE RECORDS SUMMARY | 2023-10-06 17:05 | XMS_ITS | Encounter Summary ---
Author Organization [facility] Address [facility] [address] [place] [address] Care Team Providers Care Econometrician Name Role Phone Edwardo Shital JANET Primary Care Provider [phone] Reason for Visit * Reason Comments Gastroesophageal Reflux * Consultation (Routine) - Closed Specialty Diagnoses / Procedures Referred By Dayan parker Referred To Contact General Surgery Diagnoses Gastroesophageal reflux disease, esophagitis presence not specified John Garner APRN [facility] [place] [address] [facility] [address] [place] [address] Referral ID Status Reason Start Date Expiration Date V isits Requested Visits Authorized [id number] Closed Consult, Test & Treat 07/01/2016 07/01/2017 1 1 Encounter Details Date Type Department Care Team (Latest Contact Info) Description 08/25/2016 9:20 AM EDT Office [place] [phone] César Barron MD [facility] [place] [address] Gastroesophageal reflux disease with esophagitis Social History Tobacco Use Types Packs/Day Years [...] Sign Reading Time Taken Comments Blood Pressure 121/54 08/25/2016 9:16 AM EDT Pulse 88 08/25/2016 9:16 AM EDT Temperature 36.7 ??C (98 ??F) 08/25/2016 9:16 AM EDT Respiratory Rate 18 08/25/2016 9:16 AM EDT Oxygen Saturation 99% 08/25/2016 9:16 AM EDT Inhaled Oxygen Concentration - - Weight 68.5 kg (151 lb) 08/25/2016 9:16 AM EDT Height - - Body Mass Index 31.56 07/01/2016 7:47 AM EDT documented in this encounter Progress Notes * César Barron MD - 08/25/2016 9:20 AM EDT Ruby Sprague is a 36-year-old female [...] urging compliance with the low-fat preop diet. documented in this encounter Plan of Treatment Scheduled Referrals Name Type Priority Associated Diagnoses Orde r Schedule Referral to General Surgery Outpatient Referral Routine Gastroesophageal reflux disease, esophagitis presence not specified Ordered: 07/01/2016 documented as of this encounter Visit Diagnoses Diagnosis Gastroesophageal reflux disease with esophagitis documented in this encounter Care Teams Econometrician Relationship Specialty Start Date End Date Shital Brooke APRN [address] [place] [address] PCP - General Family Medicine 07/20/16 12/04/17 documented as of this encounter
--- OUTSIDE RECORDS SUMMARY | 2023-10-06 17:05 | XMS_ITS | Encounter Summary ---
Author Organization [facility] [place] [address] Care Team Providers Care Podiatrist Name Role Phone Shital Brooke APRN Primary Care Provider [phone] Encounter Details Date Type Department Care Team (Late st Contact Info) Description 09/20/2016 Telephone [place] [phone] Poonam Palomino RN Social History Tobacco Use [...] Telephone Encounter - Poonam Mariee RN - 09/20/2016 10:24 AM EDT I received a call from Ruby she notes she has not moved her bowels since her surgery Nursing Triage - Phone Note DATE OF CALL: 09/20/2016 TIME OF CALL: 10:25 AM PATIENT DATE OF : 1980 CALLER: Ruby Learning Needs Assessment Reviewed: Yes SUBJECTIVE - I have shoulder pain and I have not moved my bowels since before surgery. PERTINENT PAST MEDICAL HISTORY: NURSING OBJECTIVE/ASSESSMENT: Ruby calls to say she still has shoulder pain since surgery which is uncomfortable for her if she hiccups or coughs. This is expected with this type of surgery and can take some time to resolve I reassured her. Symptom onset: Location: Duration: Characteristics: Aggravating factors: Relieving factors: Timing: Severity: INTERVENTION/PLAN/ FOLLOW UP: She notes she is constipated and has not moved her bowels since surgery. She said she is drinking a32 ounce bottle of Gator solomon with 2 cap fulls of Miralax powder in it which is what she normally does. She said she started taking the Morena lax yesterday when she realized she may be constipated. She wanted a refill of oxycodone but I explained this would add to the constipation and she has oxycodone currently at home but wanted more in case of greater pain. She is to push fluids, ambulate, take laxatives and will let us know how she does. She notes she has a long history of trouble with constipation and has had to seek care in the past for this. I let her know I would write this up and let Dr. Barron know. If your symptoms do not improve, or they worsen, report to your local emergency department. CALLER AGREES: Yes PCP: Shital Brooke APRN Patient Name: Ruby Sprague Patient Age: 36 y.o. Birthdate: 1980 Admit date: 09/09/2016 Discharge date and time: 09/11/2016 Attending Physician: César Barron MD ?? Primary Diagnosis: GERD Secondary Diagnosis: Hypophosphatemia Operations and Procedures: Laparoscopic Molly Fundoplasty Surgeon(s) and Role: * César Barron MD - Primary * Atif Mendez MD ?? History of Present Illness: Ruby Sprague is a 36-year-old female who is referred to for possibleantireflux surgery. ??She states she has had significant reflux symptoms for manyyears. ??She is currently on a PPI and states that she has significant breakthrough symptoms. ??She has had previous surgery of umbilical hernia repair in the past. She has had a recent upper GI endoscopy which showed grade C esophagitis and a hiatal hernia. ??She had esophageal motility done, which showed a normotensive lower esophageal sphincter with appropriate relaxation. 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 ??She does not give any symptoms that correlate to this finding,but this was explained to her. ??She also had pH probe testing, on day 1 of the study she had acid in her distal esophagus for 10.4% of the time; the second day it was just over 15%, both days a significant pathologic amount of reflux. ??The goal of surgery would be to repair her hiatal hernia and perform a full fundoplication and it is very likely we could do this laparoscopically. ? Hospital Course: Ruby Sprague is a 36 [...] changed to oral pain medications and the [employer] was discontinued on POD# 1. She was [...] on filedocumented in this encounter Care Teams Podiatrist Relationship Specialty Start Date End Date Shital Brooke, JANET [address] [place] [address] PCP - General Family Medicine 07/20/16 12/04/17 documented as of this encounter
--- OUTSIDE RECORDS SUMMARY | 2023-10-06 17:05 | XMS_ITS | Encounter Summary ---
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 Role Phone Shital Brooke APRN Primary Care Provider [phone] Reason for Visit * Auth/Cert Specialty Diagnoses / Procedures Referred By Contac t Referred To Contact Diagnoses GERD (gastroesophageal reflux disease) GERD Procedures PRO LAP, ESOPHAGOGAST FUNDOPLASTY LAPAROSCOPIC MIRTHA FUNDOPLASTY (WRVU 18.1) MODIFIER, HIATAL HERNIA Referral ID Status Reason Start Date Expiration Date Visits Re quested Visits Authorized [id number] 1 1 Encounter Details Date Type Department Care Team (Late st Contact Info) Description 09/09/2016 11:28 AM EDT - 09/09/2016 2:56 PM EDT Surgery [place] [address] Mariaelena Godinez MD [facility] [place] [address] LAPAROSCOPIC MIRTHA FUNDOPLASTY (WRVU 18.1) Social History Tobacco Use Types Packs/Day Years [...] Sign Reading Time Taken Comments Blood Pressure 147/78 09/09/2016 10:40 AM EDT Pulse 77 09/09/2016 10:40 AM EDT Temperature 37 ??C (98.6 ??F) 09/09/2016 10:40 AM EDT Respiratory Rate 16 09/09/2016 10:40 AM EDT Oxygen Saturation 99% 09/09/2016 10:40 AM EDT Inhaled Oxygen Concentration - - Weight 68 kg (150 lb) 09/09/2016 10:40 AM EDT Height 147.3 cm (4' 10) 09/09/2016 10:40 AM EDT Body Mass Index 31.35 09/09/2016 10:40 AM EDT documented in this encounter Discharge Summaries * Inocencia Mednez - 09/11/2016 9:56 AM EDT General Surgery [...] changed to oral pain medications and the PROTECTIVE SIGNAL INSTALLER HELPER was discontinued on POD# 1. She was [...] 09/14/2016 9:00 AM John Garner APRN Gastroenterology [phone] 10/13/2016 4:20 PM Mariaelena Godinez MD General Surgery [phone] 10/20/2016 1:40 PM Adelina Howard MD Otolaryngology [phone] Instructions Given to Patient at Discharge: Call your doctor if you develop: Fever greater than 101.3 degrees Farenheit (38.5 degrees Celcius), chills, nausea or vomiting. Alsocall if you develop severe pain not relieved by your prescribed oral pain medicine. CALL THE GENERAL SURGERY CLINIC DURING WORKING HOURS AT , OR CALL AFTERCLINIC HOURS, WEEKENDS AND HOLIDAYS: ASK FOR THE GENERAL SURGERY RESIDENT ANIMAL CARE ASSISTANT IF ANY OF THE ABOVE OCCUR. Activity level: Increase your activity slowly. You may tire easily, so frequent rest periods may be necessary. Do not lift more than 10 pounds for 4 weeks. Walk three times a day. Use common sense. Don't exhaust yourself. Diet: You should follow a post Mirtha diet, as instructed by the continuing education director in the hospital for a period of [...] at the General Surgery Outpatient [facility] - [facility] All Operator 4L, on Tuesday, October 13, 2016 at 4:20pm. You need to follow-up with your PCP regarding your blood pressure in the next 1- 2 weeks. Please call if you have any issues. You will receive a letter in the mail confirming the appointment date and time. Your follow-up is very important to us. Please call [phone] if you do not hear from us within 7 days of discharge or if you need to change the appointment date/time. Signed: INOCENCIA MENDEZ MD 09/11/2016 Primary Care Physician: Shital Brooke APRN [phone] [facility] [id number] documented in this encounter Medications at Time [...] course unless consulted in the interim. Tad Robertson, DT * Margaret Rios PA - 09/10/2016 [...] 93 % SpO2: [91 %-100 %] 09/09 07 - 09/10 0700 In: 2365.2 [P.O.:60; I.V.:2305.2] Out: 2080 [Urine:2074] [...] 11.9 HCT 36.0 PLATELET 419* Recent Labs 09/10/1651409/09/164 NA 137 134* K 3.9 4.0 CL [...] to monitor. PLAN: NEURO: Pain control with PROTECTIVE SIGNAL INSTALLER HELPER Dilaudid and IV Tylenol; transition to elixir [...] taken. Will continue to monitor. * Bianka Mccabe RN - 09/09/2016 6:50 PM EDT Pt [...] in twenty minutes Medicated for pain and PROTECTIVE SIGNAL INSTALLER HELPER set up... NPO status maintained 1800 Report [...] 2.49) performed by Jovani Treviño MD at [facility] Medications: No current facility-administered medications on [...] Pt hoping to go home in AM. PROTECTIVE SIGNAL INSTALLER HELPER dc'd, pt tolerating pain control w/10mg oxy [...] Admission: Independent Home Environment: Currently staying in [facility] until permanent housing available. Social & Family Supports/Community Resources: Lives with boyfriend/Gissell eng. Behavioral Health History: Denies any Substance Use/Abuse: No Other Pertinent/Service Specific Information: No Health/Prescription Coverage: Primary Insurance: MEDICARE A+B Secondary Insurance: MEDICAID [place] Prescription Coverage: Medicaid Preferred Pharmacy: [facility] in [place], [place] Other: No Primary Care Provider: Shital Brooke, CRITICAL CARE CNS [phone] Patient/Caregiver Goals of Treatment: Control pain & [...] needed for discharge. Uma Carcamo RN Pager: [phone] * Plan of Care - Loretta Hendrickson [...] care throughout shift. Pain well controlled with PROTECTIVE SIGNAL INSTALLER HELPER.Pt c/o intermittent nausea; treated with zofran and [...] 09/09/2016 3:18 PM EDT [facility] Operative Note Patient Name: Ruby Sprague : [id number] MR#: [id number] Case Date: 09/09/2016 Surgeon: Surgeon(s) and Role: [...] a 3-stitch, 2.5-cm fundoplication performed over a 60-Bulgarian bougie. There were no intraoperative complications. Details [...] The esophagus was then encircled using a Anders which was held in place using Endoloop. Further paraesophageal dissection was performed until we had obtained approximately 3 cm of tension- free intraabdominal esophagus. At this point, the diaphragmatic hiatus was approximated using interrupted sutures of 0 Nurolon tied over David pledgets. We then wrapped the stomach posterior to the esophagus and a 60-Bulgarian bougie was passed by Anesthesiology down the [...] was irrigated. Excellent hemostasis was assured. The [place] drain was cut and removed. The liver [...] 4:31 AM EDT) Neutrophil % 73.0 % [facility] Neutrophil Absolute 11.23(H) 1.70 - 6.10 x10(3)/mc L [facility] Lymph % 15.3 % [facility] Lymphocytes Abs 2.4 0.9 - 3.2 x10(3)/mc L [facility] Monocyte % 10.5 % [facility] Monocyte Abs 1.6(H) 0.3 - 0.9 x10(3)/mc L [facility] Eos % 0.2 % [facility] Eosinophils Abs 0.0 0.0 - 0.4 x10(3)/mc L [facility] Basophil % 0.4 % [facility] Baso Absolute 0.1 0.0 - 0.1 x10(3)/mc L [facility] Immature Gran % 0.60 % [facility] Comment: Immature granulocytes(IG's)percentage and absolute count will include metamyelocytes, myelocytes, and promyelocytes. Blood smears from CBCs yielding IG's will be scanned manually for concordance. If this scan disagrees with the automated IG or if promyelocytes are noted, a manual differential will be performed. Immature Gran Absolute 0.10(H) 0.00 - 0.04 x10(3)/[facility] Blood specimen (specimen) 09/11/2016 4:31 AM EDT 09/11/2016 4:50 AM EDT Narrative Resulting Agency Comment Spec In Lab Mariaelena Godinez MD HEMATOLOGY ORDERABL ES [facility] [place] [address] * (ABNORMAL) Hemogram (09/11/2016 4:31 AM EDT) White Blood Cell 15.4(H) 4.0 - 9.5 x10(3)/[facility] Red Blood Cell 4.57 4.00 - 5.21 x10(6)/[facility] Hemoglobin 11.5(L) 11.7 - 15.5 gm/dL [facility] Hematocrit 35.1(L) 35.7 - 45.8 % [facility] Mean Cell Volume 76.8(L) 82.6 - 94.[address] [facility] Mean Cell Hemoglobin 25.2(L) 27.1 - 32.[address] [facility] Mean Cell Hemoglobin Concentration 32.8 31.7 - 35.0 gm/dL [facility] Platelet 337 145 - 357 x10(3)/[facility] RDW Standard Deviation 49.5(H) 37.0 - 46.0 [facility] RDW coefficient of variation 17.9(H) 11.5 - 14.1 % [facility] Mean Platelet Volume 10.2 7.6 - 12.9 [facility] NRBC% auto 0.0 % [facility] NRBC Absolute 0.000 0.000 - 0.000 x10(3)/mc L [facility] Blood specimen (specimen) 09/11/2016 4:31 AM EDT 09/11/2016 4:50 AM EDT Narrative Resulting Agency Comment Spec In Lab Mariaelena Godinez MD HEMATOLOGY ORDERABL ES Performing Organization Address City/[facility]/ZIP Co de Phone Number [facility] [place] [address] * Phosphorus (09/11/2016 4:31 AM EDT) Phosphorus 3.9 2.5 - 4.5 mg/dL [facility] Blood specimen (specimen) 09/11/2016 4:31 AM EDT 09/11/2016 4:50 AM EDT Narrative Resulting Agency Comment Spec In Lab Mariaelena Godinez MD CHEMISTRY ORDERABLE S Performing Organization Address [facility] Co de Phone Number [facility] [place] [address] * Magnesium (09/11/2016 4:31 AM EDT) Magnesium 0.83 0.69 - 1.07 mmol/L [facility] Blood specimen (specimen) 09/11/2016 4:31 AM EDT 09/11/2016 4:50 AM EDT Narrative Resulting Agency Comment Spec In Lab Mariaelena Godinez MD CHEMISTRY ORDERABLE S Performing Organization Address [facility] Co de Phone Number [facility] [place] [address] * (ABNORMAL) Basic Metabolic Panel (non-fasting) (09/11/2016 4:31 AM EDT) Glucose 144 65 - 199 mg/dL [facility] Comment:Diabetes: >=200 mg/d L plus symptoms Blood Urea Nitrogen 8 8 - 18 mg/dL [facility] Creatinine 0.74 0.70 - 1.20 mg/dL [facility] Comment: Please note that the pediatric reference intervals supplied above were not validated at [facility]. Results from pediatric patients should be interpreted in conjunction to the patient's age, height and muscle mass. Sodium 138 135 - 145 mmol/L [facility] Potassium 4.0 3.5 - 5.0 mmol/L [facility] Comment: Please note: ??Patients with WBC >100,000 may have falsely elevated Potassium levels. ??For accurate Potassium quantification in these patients send serum separator tube (gold top) for subsequent determinations. ??Contact the Clinical Chemistry Laboratory if there are any questions. Chloride 101 98 - 107 mmol/L [facility] Carbon Dioxide 20(L) 22 - 31 mmol/L [facility] Anion Gap 17(H) 5 - 15 mmol/L [facility] Calcium 8.9 8.5 - 10.5 mg/dL [facility] Est Glomerular Filtration Rate >60 >=60 [facility] Comment: This estimated GFR (eGFR) value [...] the following links into your internet browser. [email or web address] Blood specimen (specimen) 09/11/2016 4:31 AM EDT 09/11/2016 4:50 AM EDT Narrative Resulting Agency Comment Spec In Lab Mariaelena Godinez MD CHEMISTRY ORDERABLE S [facility] [place] [address] * (ABNORMAL) Differential, Automated (09/10/2016 2:40 PM EDT) Neutrophil % 76.7 % [facility] Neutrophil Absolute 17.12(H) 1.70 - 6.10 x10(3)/[facility] Lymph % 11.0 % [facility] Lymphocytes Abs 2.5 0.9 - 3.2 x10(3)/[facility] Monocyte % 11.1 % [facility] Monocyte Abs 2.5(H) 0.3 - 0.9 x10(3)/[facility] Eos % 0.0 % [facility] Eosinophils Abs 0.0 0.0 - 0.4 x10(3)/[facility] Basophil % 0.2 % [facility] Baso Absolute 0.0 0.0 - 0.1 x10(3)/[facility] Immature Gran % 1.00 % [facility] Comment: Immature granulocytes(IG's)percentage and absolute count will include metamyelocytes, myelocytes, and promyelocytes. Blood smears from CBCs yielding IG's will be scanned manually for concordance. If this scan disagrees with the automated IG or if promyelocytes are noted, a manual differential will be performed. Immature Gran Absolute 0.22(H) 0.00 - 0.04 x10(3)/[facility] Blood specimen (specimen) 09/10/2016 2:40 PM EDT 09/10/2016 2:47 PM EDT Narrative Resulting Agency Comment Spec In Lab Mariaelena Godinez MD HEMATOLOGY ORDERABL ES [facility] [place] [address] * (ABNORMAL) Hemogram (09/10/2016 2:40 PM EDT) White Blood Cell 22.3(H) 4.0 - 9.5 x10(3)/[facility] Red Blood Cell 4.81 4.00 - 5.21 x10(6)/mc L [facility] Hemoglobin 12.0 11.7 - 15.5 gm/dL [facility] Hematocrit 36.1 35.7 - 45.8 % [facility] Mean Cell Volume 75.1(L) 82.6 - 94.[address] [facility] Mean Cell Hemoglobin 24.9(L) 27.1 - 32.[address] [facility] Mean Cell Hemoglobin Concentration 33.2 31.7 - 35.0 gm/dL [facility] Platelet 446(H) 145 - 357 x10(3)/mc L [facility] RDW Standard Deviation 47.6(H) 37.0 - 46.[address] [facility] RDW coefficient of variation 17.6(H) 11.5 - 14.1 % [facility] Mean Platelet Volume 10.4 7.6 - 12.9 [facility] NRBC% auto 0.0 % [facility] NRBC Absolute 0.000 0.000 - 0.000 x10(3)/mc L [facility] Blood specimen (specimen) 09/10/2016 2:40 PM EDT 09/10/2016 2:47 PM EDT Narrative Resulting Agency Comment Spec In Lab Mariaelena Godinez MD HEMATOLOGY ORDERABL ES [facility] [place] [address] * Phosphorus (09/10/2016 2:40 PM EDT) Phosphorus 4.1 2.5 - 4.5 mg/dL [facility] Comment:result rechecked-MARIAH Blood specimen (specimen) 09/10/2016 2:40 PM EDT 09/10/2016 2:47 PM EDT Narrative Resulting Agency Comment Spec In Lab Mariaelena Godinez MD CHEMISTRY ORDERABLE S Performing Organization Address City/[facility]/ZIP Co de Phone Number [facility] [place] [address] * Magnesium (09/10/2016 2:40 PM EDT) Pathologist [facility] Magnesium 0.93 0.69 - 1.07 mmol/L [facility] Blood specimen (specimen) 09/10/2016 2:40 PM EDT 09/10/2016 2:47 PM EDT Narrative Resulting Agency Comment Spec In Lab Mariaelena Godinez MD CHEMISTRY ORDERABLE S Performing Organization Address [facility] Co de Phone Number [facility] [place] [address] * (ABNORMAL) Comprehensive metabolic panel (non-fasting) (09/10/2016 2:40 PM EDT) [facility] Glucose 150 65 - 199 mg/dL [facility] Comment:Diabetes: >=200 mg/d L plus symptoms Blood Urea Nitrogen 8 8 - 18 mg/dL [facility] Creatinine 0.88 0.70 - 1.20 mg/dL [facility] Comment: Please note that the pediatric reference intervals supplied above were not validated at [facility]. Results from pediatric patients should be interpreted in conjunction to the patient's age, height and muscle mass. Sodium 140 135 - 145 mmol/L [facility] Potassium 4.0 3.5 - 5.0 mmol/L [facility] Comment: Please note: ??Patients with WBC >100,000 may have falsely elevated Potassium levels. ??For accurate Potassium quantification in these patients send serum separator tube (gold top) for subsequent determinations. ??Contact the Clinical Chemistry Laboratory if there are any questions. Chloride 102 98 - 107 mmol/L [facility] Carbon Dioxide 20(L) 22 - 31 mmol/L [facility] Anion Gap 18(H) 5 - 15 mmol/L [facility] Calcium 9.4 8.5 - 10.5 mg/dL [facility] Protein, Total 7.2 6.1 - 8.0 gm/dL [facility] Albumin 4.0 3.2 - 5.2 gm/dL [facility] Aspartate Aminotransferase 54(H) 0 - 30 unit/L [facility] Alanine Aminotransferase 73(H) 0 - 30 unit/L [facility] Alkaline Phosphatase 99 40 - 104 unit/L [facility] Bilirubin, Total 0.3 0.2 - 1.3 mg/dL [facility] Est Glomerular Filtration Rate >60 >=60 [facility] Comment: This estimated GFR (eGFR) value [...] the following links into your internet browser. [email or web address] Blood specimen (specimen) 09/10/2016 2:40 PM EDT 09/10/2016 2:47 PM EDT Narrative Resulting Agency Comment Spec In Lab Mariaelena Godinez MD CHEMISTRY ORDERABLE S Performing Organization Address City/[facility]/ZIP Co de Phone Number [facility] [place] [address] * Calcium (09/10/2016 2:40 PM EDT) Calcium 9.4 8.5 - 10.5 mg/dL [facility] Blood specimen (specimen) 09/10/2016 2:40 PM EDT 09/10/2016 2:47 PM EDT Narrative Resulting Agency Comment Spec In Lab Mariaelena Godinez MD CHEMISTRY ORDERABLE S [facility] [place] [address] * Scan, Peripheral Blood (09/10/2016 5:15 AM EDT) Pathologist [facility] Plat estimate Normal [facility] RBC Morphology Abnormal [facility] Microcyte 1-5 /HPF [facility] Ovalocytes 1-5 /HPF [facility] Blood specimen (specimen) 09/10/2016 5:15 AM EDT 09/10/2016 5:51 AM EDT Narrative Resulting Agency Comment Spec In Lab Mariaelena Godinez [place] [address] * (ABNORMAL) Differential, Automated (09/10/2016 5:15 AM EDT) Pathologist [facility] Neutrophil % 84.2 % [facility] Neutrophil Absolute 19.49(H) 1.70 - 6.10 x10(3)/mc L [facility] Lymph % 6.5 % [facility] Lymphocytes Abs 1.5 0.9 - 3.2 x10(3)/mc L [facility] Monocyte % 8.2 % [facility] Monocyte Abs 1.9(H) 0.3 - 0.9 x10(3)/mc L [facility] Eos % 0.0 % [facility] Eosinophils Abs 0.0 0.0 - 0.4 x10(3)/mc L [facility] Basophil % 0.1 % [facility] Baso Absolute 0.0 0.0 - 0.1 x10(3)/mc L [facility] Immature Gran % 1.00 % [facility] Comment: Immature granulocytes(IG's)percentage and absolute count will include metamyelocytes, myelocytes, and promyelocytes. Blood smears from CBCs yielding IG's will be scanned manually for concordance. If this scan disagrees with the automated IG or if promyelocytes are noted, a manual differential will be performed. Immature Gran Absolute 0.23(H) 0.00 - 0.04 x10(3)/ L [facility] Blood specimen (specimen) 09/10/2016 5:15 AM EDT 09/10/2016 5:51 AM EDT Narrative Resulting Agency Comment Spec In Lab Mariaelena Godinez MD HEMATOLOGY ORDERABL ES [facility] [place] [address] * (ABNORMAL) Hemogram (09/10/2016 5:15 AM EDT) White Blood Cell 23.2(H) 4.0 - 9.5 x10(3)/[facility] Red Blood Cell 4.78 4.00 - 5.21 x10(6)/[facility] Hemoglobin 11.9 11.7 - 15.5 gm/dL [facility] Hematocrit 36.0 35.7 - 45.8 % [facility] Mean Cell Volume 75.3(L) 82.6 - 94.[address] [facility] Mean Cell Hemoglobin 24.9(L) 27.1 - 32.[address] [facility] Mean Cell Hemoglobin Concentration 33.1 31.7 - 35.0 gm/dL [facility] Platelet 419(H) 145 - 357 x10(3)/ L [facility] RDW Standard Deviation 47.5(H) 37.0 - 46.[address] [facility] RDW coefficient of variation 17.3(H) 11.5 - 14.1 % [facility] Mean Platelet Volume 10.5 7.6 - 12.[address] [facility] NRBC% auto 0.0 % [facility] NRBC Absolute 0.000 0.000 - 0.000 x10(3)/ L [facility] Blood specimen (specimen) 09/10/2016 5:15 AM EDT 09/10/2016 5:51 AM EDT Narrative Resulting Agency Comment Spec In Lab Mariaelena Godinez MD HEMATOLOGY ORDERABL ES Performing Organization Address [facility]/ZIP Co de Phone Number [facility] [place] [address] * (ABNORMAL) Phosphorus (09/10/2016 5:15 AM EDT) Phosphorus 1.3(Critic al) 2.5 - 4.5 mg/dL [facility] Comment:Called by: tang, Read back by: loretta hendrickson, Date/Time:09/10/16 06:42. Blood specimen (specimen) 09/10/2016 5:15 AM EDT 09/10/2016 5:51 AM EDT Narrative Resulting Agency Comment Spec In Lab Mariaelena Godinez MD CHEMISTRY ORDERABLE S Performing Organization Address [facility]/ZIP Co de Phone Number [facility] [place] [address] * Magnesium (09/10/2016 5:15 AM EDT) [facility] Magnesium 0.98 0.69 - 1.07 mmol/L [facility] Blood specimen (specimen) 09/10/2016 5:15 AM EDT 09/10/2016 5:51 AM EDT Narrative Resulting Agency Comment Spec In Lab Mariaelena Godinez MD CHEMISTRY ORDERABLE S Performing Organization Address [facility]/ZIP Co de Phone Number [facility] [place] [address] * (ABNORMAL) Basic Metabolic Panel (non-fasting) (09/10/2016 5:15 AM EDT) Glucose 167 65 - 199 mg/dL [facility] Comment:Diabetes: >=200 mg/d L plus symptoms Blood Urea Nitrogen 9 8 - 18 mg/dL [facility] Creatinine 0.79 0.70 - 1.20 mg/dL [facility] Comment: Please note that the pediatric reference intervals supplied above were not validated at [facility]. Results from pediatric patients should be interpreted in conjunction to the patient's age, height and muscle mass. Sodium 137 135 - 145 mmol/L [facility] Potassium 3.9 3.5 - 5.0 mmol/L [facility] Comment: Please note: ??Patients with WBC >100,000 may have falsely elevated Potassium levels. ??For accurate Potassium quantification in these patients send serum separator tube (gold top) for subsequent determinations. ??Contact the Clinical Chemistry Laboratory if there are any questions. Chloride 103 98 - 107 mmol/L [facility] Carbon Dioxide 20(L) 22 - 31 mmol/L [facility] Anion Gap 14 5 - 15 mmol/L [facility] Calcium 9.6 8.5 - 10.5 mg/dL [facility] Est Glomerular Filtration Rate >60 >=60 [facility] Comment: This estimated GFR (eGFR) value [...] the following links into your internet browser. [email or web address] Blood specimen (specimen) 09/10/2016 5:15 AM EDT 09/10/2016 5:51 AM EDT Narrative Resulting Agency Comment Spec In Lab Mariaelena Godinez MD CHEMISTRY ORDERABLE S [facility] [place] [address] * (ABNORMAL) Phosphorus (09/09/2016 9:24 PM EDT) [facility] Phosphorus 1.1(Critic al) 2.5 - 4.5 mg/dL [facility] Comment:Called by: joni, Read back by: Eladia Dominique, Date/Time:09/09/16 22:39_. Blood specimen (specimen) 09/09/2016 9:24 PM EDT 09/09/2016 9:38 PM EDT Narrative Resulting Agency Comment Spec In Lab Mariaelena Godinez MD CHEMISTRY ORDERABLE S Performing Organization Address [facility] Co de Phone Number [facility] [place] [address] * Magnesium (09/09/2016 9:24 PM EDT) [facility] Magnesium 0.73 0.69 - 1.07 mmol/L [facility] Blood specimen (specimen) 09/09/2016 9:24 PM EDT 09/09/2016 9:38 PM EDT Narrative Resulting Agency Comment Spec In Lab Mariaelena Godinez MD CHEMISTRY ORDERABLE S Performing Organization Address [facility] Co de Phone Number [facility] [place] [address] * (ABNORMAL) Basic Metabolic Panel (non-fasting) (09/09/2016 9:24 PM EDT) [facility] Glucose 236(H) 65 - 199 mg/dL [facility] Comment:Diabetes: >=200 mg/d L plus symptoms Blood Urea Nitrogen 10 8 - 18 mg/dL [facility] Creatinine 0.80 0.70 - 1.20 mg/dL [facility] Comment: Please note that the pediatric reference intervals supplied above were not validated at [facility]. Results from pediatric patients should be interpreted in conjunction to the patient's age, height and muscle mass. Sodium 134(L) 135 - 145 mmol/L [facility] Potassium 4.0 3.5 - 5.0 mmol/L [facility] Comment: Please note: ??Patients with WBC >100,000 may have falsely elevated Potassium levels. ??For accurate Potassium quantification in these patients send serum separator tube (gold top) for subsequent determinations. ??Contact the Clinical Chemistry Laboratory if there are any questions. Chloride 100 98 - 107 mmol/L [facility] Carbon Dioxide 19(L) 22 - 31 mmol/L [facility] Anion Gap 15 5 - 15 mmol/L [facility] Calcium 9.0 8.5 - 10.5 mg/dL [facility] Est Glomerular Filtration Rate >60 >=60 [facility] Comment: This estimated GFR (eGFR) value [...] the following links into your internet browser. [email or web address] [email or web address] Blood specimen (specimen) 09/09/2016 9:24 PM EDT 09/09/2016 9:38 PM EDT Narrative Resulting Agency Comment Spec In Lab Mariaelena Godinez MD CHEMISTRY ORDERABLE S [facility] [place] [address] * (ABNORMAL) Cardiac Enzymes (09/09/2016 9:24 PM EDT) Troponin-T <0.03 <=0.03 ng/mL [facility] Comment: 0.03 ng/mL: Represents the 99th percentile upper reference limit for normals. >0.03 ng/mL: Elevated cardiac troponin T level indicative of myocardial damage. Diagnosis of acute, evolving or recent GA requires a typical rise and gradual fall [...] consensus document of the Joint Society of Cardiology/[place] [employer] Committee for the redefinition of myocardial infarction. ??Journal of the [place] College of [employer]iology 2000; 36: 959-969] Creatine Kinase 161(H) 0 - 160 unit/L [facility] Blood specimen (specimen) 09/09/2016 9:24 PM EDT 09/09/2016 9:38 PM EDT Narrative Resulting Agency Comment Spec In Lab Mariaelena Godinez MD CHEMISTRY ORDERABLE S Performing Organization Address [facility] Co de Phone Number [facility] [place] [phone] * EKG 12 Lead (09/09/2016 8:56 PM EDT) Ventricular rate 114 BPM MUSE SYSTEM Atrial Rate 114 BPM MUSE SYSTEM P-R Interval 122 ms MUSE SYSTEM QRS Duration 84 ms MUSE SYSTEM Q-T Interval 346 ms MUSE SYSTEM QTC Calculated (Bezet) 476 ms MUSE SYSTEM Calculated P [place] 37 degrees MUSE SYSTEM Calculated R [place] 9 degrees MUSE SYSTEM Calculated T [place] 9 degrees MUSE SYSTEM INTERPRETATION Sinus tachycardia Minimal voltage criteria for LVH, may be normal variant ST & T wave abnormality, consider anterolateral ischemia Abnormal ECG No previous ECGs available Confirmed by MD GARCIA ARMIN ([id number]) on 09/10/2016 2:22:59 PM MUSE SYSTEM 09/09/2016 8:56 PM EDT 09/10/2016 2:22 PM EDT Mariaelena Godinez MD ECG ORDERABLES Performing Organization Address City/[facility]/ZIP Co de Phone Number MUSE SYSTEM documented in this encounter Visit Diagnoses Not on filedocumented in this encounter Admitting Diagnoses Diagnosis GERD [...] Given 09/10/2016 12:52 PM EDT 650 mg BUpivacaine (PF) (MARCAINE) 0.25 % (2.5 mg/mL) injection ONCE PRN, Starting on Bev 09/09/16 at 1353, Until 09/11/16 at 1519, Intra-Operative (Intra-Procedure), Routine Given 09/09/2016 1:53 PM EDT 7 mLs heparin (porcine) subcutaneous injection 5,000 Units 5,000 [...] EDT 12.5 mg HYDROmorphone (DILAUDID) 1 mg/mL PROTECTIVE SIGNAL INSTALLER HELPER 50 mL Intravenous, PROTECTIVE SIGNAL INSTALLER HELPER ONLY, Starting on Bev 09/09/16 at 1645, [...] EVERY 8 HOURS SCHEDULED, First dose on Bev 09/09/16 at 2200, Until Discontinued, Routine 2327 (Given - Provider: Silvana Hanson RN) 0547 (Given - Provider: Loretta Hendrickson RN)1411 (Given - Provider: Gia Barnes RN)2229 (Not Given - Provider: Adelina Pradhan RN - Reason: Patient/family refused) 0548 (Given - Provider: Adelina Pradhan, DAVID) hydroCHLOROthiazide (HYDRODIURIL) tablet 12.5 mg 12.5 mg, Oral, DAILY, First dose on Tue09/10/16 at 1000, Until Discontinued, Routine 1000 (Given - Provider: Wandy Leiva RN) 0818 (Given - Provider: Bianka Mccabe, DAVID) magnesium sulfate 1g in dextrose 5% 100mL [...] patient., STAT 0045 (Given - Provider: Loretta Hendrickson, DAVID)0800 (Not Given - Provider: Wandy Leiva RN [...] Barnes RN)1811 (New Bag - Provider: Wandy Leiva, DAVID)2229 (New Bag - Provider: Adelina Pradhan, DAVID) sodium chloride 0.9 % flush 5 mL 5 mL, Intravenous, 2 TIMES DAILY, First dose on Tue09/09/16 at 2100, Until Discontinued, Recovery (Recovery-Hospital Unit), Routine 2037 (Given - Provider: Loretta Hendrickson RN) 0900 (Given - Provider: Wandy Leiva RN)2100 (Given - Provider: Adelina Pradhan RN) 0821 (Given - Provider: Bianka Mccabe RN) Continuous Medication Order 09/09/2016 09/10/2016 09/11/2016 HYDROmorphone (DILAUDID) 1 mg/mL PROTECTIVE SIGNAL INSTALLER HELPER 50 mL (CANCELED) Intravenous, PROTECTIVE SIGNAL INSTALLER HELPER ONLY, Starting on Bev 09/09/16 at 1645, [...] RN) 0618 (New Bag - Provider: Loretta Hendrickson, DAVID) PRN Medication Order 09/09/2016 09/10/2016 09/11/2016 acetaminophen (TYLENOL) 650 mg/20.3 mL oral liquid 650 mg 650 mg, Oral, EVERY 4 HOURS PRN, Starting on 09/10/16 at 0556, Until 09/11/16 at 1519, Pain, Maximum dose of acetaminophen is 4,000 mg from all sources in 24 hours., Routine 1252 (Given - Provider: Gia Barnes, DAVID)1658 (Given - Provider: Gia Barnes, DAVID) BUpivacaine (PF) (MARCAINE) 0.25 % (2.5 mg/mL) [...] 30 minutes if pruritis not relieved. Per PROTECTIVE SIGNAL INSTALLER HELPER order., Recovery (Recovery-Hospital Unit), Routine hydrALAZINE (APRESOLINE) injection 5-10 mg 5-10 mg, Intravenous, EVERY 6 HOURS PRN, Starting on Bev 09/09/16 at 1850, Until 09/11/16 at 1519, High Blood Pressure, For SBP > 160, OK to give 5 mg additional 190 (Given - Provider: Bianka Mccabe RN)2037 (Given - Provider: Loretta Hendrickson RN) HYDROmorphone (DILAUDID) syringe 0.2-0.4 mg (CANCELED) 0.2-0.4 [...] NOT exceed 2 mg total dose. Per PROTECTIVE SIGNAL INSTALLER HELPER order., Recovery (Recovery-Hospital Unit), Routine ondansetron (ZOFRAN) [...] Pain, Routine 0955 (Given - Provider: Gia Barnes RN) oxyCODONE (ROXICODONE) 5 mg/5 mL solution 5-10 mg 5-10 mg, Oral, EVERY 4 HOURS PRN, Starting on 09/10/16 at 1248, Until 09/11/16 at 1519, Pain, for pain 1-5 give 5mg; for pain 6-10 give 10mg, Routine 1411 (Given - Provider: Gia Barnes, RN)1810 (Given - Provider: Wandy Leiva, RN)2228 (Given - Provider: Adelina Pradhan, DAVID) 0311 (Given - Provider: Brook Iraheta, RN)0819 (Given - Provider: Bianka Mccabe, DAVID) prochlorperazine (COMPAZINE) injection 10 mg(Linked Group 2) [...] Routine documented in this encounter Care Teams Rotary Screen Printing Machine Operator Relationship Specialty Start Date End Date Shital Brooke, CRITICAL CARE CNS [address] [place] [address] PCP - General Family Medicine 07/20/16 12/04/17 documented as of this encounter
--- OUTSIDE RECORDS SUMMARY | 2023-10-06 17:05 | XMS_ITS | Encounter Summary ---
Author Organization [facility] Address [facility] [place] [address] Care Team Providers Care Reel Film Inspector Name Role Phone Mary Carmenkdprashant Shital JANET Primary Care Provider [phone] Reason for Visit * Reason Comments Advice Only panni * Consultation (Routine) - Closed Specialty Diagnoses / Procedures Referred By Dayan parker Referred To Contact Plastic Surgery Diagnoses Bloated abdomen John Garner APRN [facility] [place] [address] [facility] [address] [place] [address] Referral ID Status Reason Start Date Expiration Date V isits Requested Visits Authorized [id number] Closed Consult, Test & Treat 03/28/2017 03/28/2018 1 1 Encounter Details Date Type Department Care Team (Late st Contact Info) Description 04/07/2017 10:15 AM EST Office [place] [address] Samuel Peck MD [facility] [place] [address] Abdominal panniculus Social History Tobacco Use Types Packs/Day Years [...] Sign Reading Time Taken Comments Blood Pressure - - Pulse - - Temperature - - Respiratory Rate - - Oxygen Saturation - - Inhaled Oxygen Concentration - - Weight 68 kg (150 lb) 04/07/2017 10:09 AM EST Height 149.9 cm (4' 11) 04/07/2017 10:09 AM EST Body Mass Index 30.3 04/07/2017 10:09 AM EST documented in this encounter Progress Notes * Samuel Peck MD - 04/07/2017 10:15 AM EST Plastic Surgery Consultation Note PCP: Shital Brooke APRN CC: Abdominal pannus HPI: Ruby Sprague is a 36 y.o. female seen in my office today for consideration for abdominal panniculectomy at the request of John Garner APRN. She reports she has been trying to lose weightbut is having difficulty losing weight in her stomach. Her maximum weight was 155 lbs. She now weighs 150 lbs and has a goal weight of approximately 120 pounds. She denies any rashes due to her abdomen. She has back pain but has not consulted a math specialist for this. She denies hx of skin problems at site of abdominal panniculus. She currently smokes 1/2 pack of cigarettes a day. She has had prior abdominal surgeries including a hernia repair and fundoplasty. No past medical history on file. Past Surgical History: Procedure Laterality Date ??? PRO LAP, ESOPHAGOGAST FUNDOPLASTY N/A 09/09/2016 LAPAROSCOPIC BECCA FUNDOPLASTY (WRVU 18.1) performed by César Barron MD at [facility] OR ??? PRO UPPER GI ENDOSCOPY, BIOPSY N/A 07/30/2016 EGD WITH BIOPSY (WRVU 2.49) performed by Jovani Treviño MD at [facility] ENDOSCOPY Social History Social History ??? Marital status: Spouse name: N/A ??? Number of children: N/A ??? Years of education: N/A Occupational History ??? Not on file. Social History Main Topics ??? Smoking status: Current Every Day Smoker Packs/day: 0.50 ??? Smokeless tobacco: Current User ??? Alcohol use No ??? Drug use: No ??? Sexual activity: Not on file Other Topics Concern ??? Not on file Social History Narrative Examination: Ht 149.9 cm (4' 11) Wt 68 kg (150 lb) BMI 30.3 kg/m2 female in no acute distress, comfortable. She was well oriented and asked appropriate questions throughout the visit. HEENT: MMM, normocephalic, sclera: white, no facial abrasions Muscuskeletal: gross full ROM x 4 extrem, ambulating, no lesions Abdomen: intra-abdominal fullness and upper abdominal fullness, lower abdomenal panniculus overhanging belt line but not covering mons or genitalia. Grade 1: Panniculus barely covers the hairline of the mons pubis but not the genitalia She has a well healed, pericumbilical scars Hernia palpable no Diastasis no Active rash or intertrigo no Impression: Ruby Sprague is not a suitable candidate for panniculectomy. I explained that insurance will typically cover the panniculectomy procedure if there is evidence of recurrent infections due to the abdominal fold. It is also more likely to be done for patients who have lost a significantamount of weight, most likely from gastric surgery. I emphasized that the panniculectomy is not a weight loss procedure and that results are optimal when it is done when patients are at a stable goalweight. We will submit the request to insurance to determine if the procedure will be covered. Photos were obtained today. Insurance Guidelines [ ] Pannus grade 2 or higher [ ] Rashes; prescribed and documented treatment for any rashes that don???t respond to 3 - 6 monthsof treatment. [ ] If the weight has been lost due to gastric bypass, it must be 18 months s/p bariatric surgery [ ] Patient must be at goal weight and stable 6 months Based on this, we will request insurance pre-determination. I will communicate my recommendations to Shital Brooke APRN. I, Nola Broderick, am acting as scribe for Samuel Knowles MD . All work documented was performed by Samuel Knowles MD. ???I performed the above scribed service and agree with the accuracy of the note?? Samuel Peck MD. documented in this encounter Plan of Treatment Scheduled Referrals Name Type Priority Associated Diagnoses Orde r Schedule Referral to Plastic Surgery Outpatient Referral Routine Bloated abdomen Ordered: 03/28/2017 documented as of this encounter Visit Diagnoses Diagnosis Abdominal panniculus Localized adiposity documented in this encounter Care Teams Reel Film Inspector Relationship Specialty Start Date End Date Shital Brooke, DIRECTOR OF EVENT MANAGEMENT [address] [place] [address] PCP - General Family Medicine 07/20/16 12/04/17 documented as of this encounter
--- OUTSIDE RECORDS SUMMARY | 2023-10-06 17:06 | XMS_ITS | Encounter Summary ---
Author Organization [facility] Address [address] [place] [address] Care Team Providers Care Ratoprinter Name Role Phone Elio Caleb Augustine BERGER Primary Care Provider [phone] [phone] Reason for Referral * Office Procedure (Routine) - Specialty Report Received Specialty Diagnoses / Procedures Referred By Dayan parker Referred To Contact Neurology Diagnoses Visual field defect Procedures VISUAL EVOKED POTENTIAL (VEP) Jayden Roger MD [address] [place] [phone] [facility] [address] [place] [address] Referral ID Status Reason Start Date Expiration Date V isits Requested Visits Authorized [id number] Specialty Report Received 02/29/2020 1 1 * Office Procedure (Routine) - Specialty Report Received Specialty Diagnoses / Procedures Referred By Dayan parker Referred To Contact Neurology Diagnoses Visual field defect Procedures ELECTRORETINOGRAM (ERG) Jayden Roger MD [address] [address] [facility] [address] [place] [address] Referral ID Status Reason Start Date Expiration Date V isits Requested Visits Authorized [id number] Specialty Report Received 02/29/2020 1 1 Reason for Visit * Reason Comments Referral Request Eye Problem Encounter Details Date Type Department Care Team (Late st Contact Info) Description 02/29/2020 10:00 EST Office Visit [facility] Ophthalmology - Main [place] [address] [place] [address] Jayden Roger MD [address] [facility], [address] [place] [address] Social History Tobacco Use Types Packs/Day Years Used Date Smoking Tobacco: Every Day Cigarettes Smokeless Tobacco: Never Comments:02/29/20 - Pt down t o 5 cigs/day. Alcohol Use Standard Drinks/Week Comments Yes 1 (1 standard drink = 0.6 oz pur e alcohol) Interpersonal Safety Answer Date Record ed Physically Hurt Never 09/16/2019 Verbally Threaten Not on file 09/16/2019 Sex and Gender Information Value Date Recorded Sex Assigned at Not on file Gender Identity Female 02/27/2020 19:23 EST Sexual Orientation Not on file COVID-19 Exposure Response Date Recorded In the last month, have you been in contact with someone who was confirmed or suspected to have Coronavirus / COVID-19? No / Unsure 02/27/2020 19:23 EST documented as of this encounter Progress Notes * Jayden Roger MD - 02/29/2020 1000 EST DIVISION OF OPHTHALMOLOGY [facility] NEURO-OPHTHALMOLOGY FOLLOW-UP 02/29/2020 Ms. Sprague returned for follow-up Neuro-Ophthalmological examination because of the history of left eye pain and vision loss. To recall this is a 39-year-old woman who was initially evaluated by my colleague Dr. Lizarraga due tovisual field defect in the left eye, thought potentially nonphysiologic at the time. The patient was subsequently seen by me in May 2019 via telemedicine consult due to recurrence of her symptomatology. She had seen Dr. Jackman with an OCT suggesting possible sectorial thinning that not particularly different when compared to previous evaluations by Dr. Dowell. In addition, when the patient was last seen by Dr. Lizarraga, the patient had subnormal best corrected visual acuity and ongoing visual field defect. When I saw the patient virtually, I recommended that we continue with the plan that had been formulated by Dr. Dowell five years prior; specifically to obtain visual evoked potentials and ERG. The patient has not had these in the interval she reports ongoing eye pain and headache. The patient's symptoms persist and are similar to what she is described in the past however she reports that this is new 10/10 left eye pain. She reports that it hurts all the time she describes pain with eye movement over the past few weeks (she describes this previously) the patient has occasional nausea she has not had no double vision she does describe a kaleidoscope of colors in the left eye that lasts seconds. Patient has tried artificial tears she reports that [id number] medications provide minimal relief. A trial of magnesium riboflavin and co-Q10 have not been helpful. Shedenies other difficulties in the interval. Of note, in 2014 in the context of her evaluations with Dr. Dowell she did have dedicated contrast-enhanced MRI of the brain and orbits that showed no pathology to account for the patient's symptoms. The ocular history, medical history, surgical history, social history, family history, medications and allergies are all unchanged except as noted above and documented in the EMR. The neuro-ophthalmic examination found the patient be communicative cooperative for testing. Visualacuities with correction were 20/25 in the right eye without pinhole improvement Peña 1+ near card; 20/40 in the left eye with pinhole or refractive refinement, Peña 7. Color vision (Ishihara) showed no dyschromatopsia in the right eye; the patient was unable to identify even the control plate with the left eye. The pupils were equal in size and showed normal response to light and near with no afferent pupillary defect. The external examination eyes and orbits was normal. The patient was profoundly light sensitive and reports pain with eye movement however ductions appeared full there wasno nystagmus. Choppy pursuit with otherwise normal saccades. Applanation tonometry at 1115 hrs. was16 mils helen in the right eye 15 that was marked in the left eye. Slit-lamp examination was limiteddue to the patient's profound light sensitivity but showed normal anterior segments with no cell/or other anterior chamber allergy to account for the patient's symptomatology. Automated Bloom woo were performed with a moderate degree of technical difficulty the right eye showed a few scattered areas of decreased sensitivity medium score -0.59 dB a foveal threshold 37 dB the left eye showed a dense inferior temporal defect that crosses the vertical and horizontal seems to spare the macula mean deviation score -12.22 dB and foveal threshold 35 dB. Dilated stereoscopic (indirect) funduscopy found the nerves to be pink healthy flat cup-to-disc ratio of 0.5 in each eye the vessels are mildly tortuous the macula remarkable. Spectral domain OCT nerve fiber layer analysis showed no clear thi nning or edema at the discs with average in fiber thickness of 85 ??m on the right and 84 ??m on the left there may be a few areas of sectorial thinning in the each eye working. Superiorly there was no evidence for thinning or edema at the macula. FORMULATION: This is a 39-year-old woman seen for follow-up neuro ophthalmic evaluation because of a history of left eye pain and visual field defect. 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 She has had neuroimaging to evaluate this in the past with no lesion noted. I recommended that we pursue the visual evoked potential and ERG placed in order for the same today we will determine follow-up pending the results of that study in the meantime I recommended that the patient continue to treat with artificial tears. There are features of her symptoms that are suggestive of migraine and ultimately that may be the cause of her pain symptoms however quadrantic defect requires further evaluation. Nonetheless, I am reassured that it is at least stable when compared to studies [id number] and the patient has previously had negative neuroimaging. Please do not hesitate to contact me with any further questions or concerns. Sincerely, Jayden Roger MD Diplomate, the [place] [employer] Neu[employer] title searcher Department of Ophthalmology documented in this encounter Plan of Treatment Pending Results Name Type Priority Associated Diagnoses Date /Time BLOOM VF 24-2 STANDARD - OU - BOTH EYES Ophthalmology Routine Visual field defect 02/29/2020 10:37 EST OCT, OPTIC NERVE - OU - BOTH EYES Ophthalmology Routine Visual field defect 02/29/2020 10:37 EST documented as of this encounter Procedures Procedure Name Priority Date/Time Associated Diagnosis Comments OCT, OPTIC NERVE - OU - BOTH EYES Routine 02/29/2020 10:37 EST Visual field defect BLOOM VF 24-2 STANDARD - OU - BOTH EYES Routine 02/29/2020 10:37 EST Visual field defect documented in this encounter Results * VISUAL EVOKED POTENTIAL (VEP) (03/20/2020 12:30 EST) Narrative [facility] POINT OF CARE - 03/20/2020 12:30 EST Luis Aranda MD ? 03/24/2020 10:56 Electroretinogram ??Report Referring Physician: ? Jayden Roger MD Study Number: ?ERG 21? 3 Clinical Indication: Patient with left eye pain and visual field defect in need of further definition of the cause. Patient condition: ??Alert and cooperative Visual Acuity: ??Left ?? 20/40 ?Right 20/20 with correction Medications Administered: ?? proparacaine 0.5% tropicamide 1% Technical Description: ??The patient's eye to be tested is numbed, dialted and dark adapted for 30 minutes in a dark room. ??A DTL fiber electrode is placed in the eye referenced to Fz. ??A Ganzfeld stimulator is used for all flash stimuli. ??In the dark adapted state a very dim flash is used to elicit a pure monserrat response. ??A bright flash is used to elicit a mixed monserrat and cone response and the oscillatory potentials. ??The eye is then light adapted for 10 minutes ??and the bright flash elicits a pure cone response and thirty Hz flicker stimulus also provides a pure cone response. ??Filter settings are: ?? LFF 0.3Hz, HFF 500Hz Findings: ??See ??data in scans in PRISM Impression: The photopic and scotopic electroretinogram to whole field flashes entirely normal in the left and right eyes. ??The implicit time calculated by the computer on the 30 Hz flicker is borderline in the left eye but there is no confirmation of this in the bright flash in the photopic state or scotopic state. Luis Aranda MD, PhD [facility] Neurology [facility] Clinical [facility] Pattern Visual Evoked Potential Report Referring Physician: ? Jayden Roger MD Study Number: ?EP 21? 5 Clinical Indication: Patient with left eye pain and left visual field defect in need of further delineation of the possible origin. Patient condition: Alert and cooperative Technical Description: ??Independent monocular stimulation is performed using a pattern reversal stimulus with standard check size of 27 minutes. ??Filter settings are: ??LFF 1 Hz, HFF 1,000 Hz. ??At least two independent averages are obtained. ??Eight recording channels are employed including Oz-Fz as well as O1 and O2 and other lateral posterior channels. Findings: Wave ?? Left (msec) ??Right (msec) ??L.D. (msec) P100 ?? 91.0 ?? 94.0 ? 3.0 ? L.D. = Latency Difference Impression: The latency of the pattern reversal visual evoked potential is entirely normal in each eye and comparisons in terms of latency between the eyes is also normal. ??There are no significant hemispheric asymmetries to suggest a retrochiasmatic process, although this does not exclude the possibility of a chiasmatic disturbance Luis Aranda MD, PhD [facility] Neurology [facility] Clinical Neurophysiology Jayden Roger MD NEUROLOGY [facility] Organization Address City/State/[facility] Co de Phone Number [facility] * ELECTRORETINOGRAM (ERG) (03/20/2020 12:30 EST) Narrative [facility] POINT OF CARE - 03/20/2020 12:30 EST Luis Aranda MD ? 03/24/2020 10:56 Electroretinogram ??Report Referring Physician: ? Jayden Roger MD Study Number: ?ERG 21? 3 Clinical Indication: Patient with left eye pain and visual field defect in need of further definition of the cause. Patient condition: ??Alert and cooperative Visual Acuity: ??Left ?? 20/40 ?Right 20/20 with correction Medications Administered: ?? proparacaine 0.5% tropicamide 1% Technical Description: ??The patient's eye to be tested is numbed, dialted and dark adapted for 30 minutes in a dark room. ??A DTL fiber electrode is placed in the eye referenced to Fz. ??A Ganzfeld stimulator is used for all flash stimuli. ??In the dark adapted state a very dim flash is used to elicit a pure monserrat response. ??A bright flash is used to elicit a mixed monserrat and cone response and the oscillatory potentials. ??The eye is then light adapted for 10 minutes ??and the bright flash elicits a pure cone response and thirty Hz flicker stimulus also provides a pure cone response. ??Filter settings are: ?? LFF 0.3Hz, HFF 500Hz Findings: ??See ??data in scans in PRISM Impression: The photopic and scotopic electroretinogram to whole field flashes entirely normal in the left and right eyes. ??The implicit time calculated by the computer on the 30 Hz flicker is borderline in the left eye but there is no confirmation of this in the bright flash in the photopic state or scotopic state. Luis Aranda MD, PhD ABPN Neurology [facility] Clinical Neurophysiology Pattern Visual Evoked Potential Report Referring Physician: ? Jayden Roger MD Study Number: ?EP 21? 5 Clinical Indication: Patient with left eye pain and left visual field defect in need of further delineation of the possible origin. Patient condition: Alert and cooperative Technical Description: ??Independent monocular stimulation is performed using a pattern reversal stimulus with standard check size of 27 minutes. ??Filter settings are: ??LFF 1 Hz, HFF 1,000 Hz. ??At least two independent averages are obtained. ??Eight recording channels are employed including Oz-Fz as well as O1 and O2 and other lateral posterior channels. Findings: Wave ?? Left (msec) ??Right (msec) ??L.D. (msec) P100 ?? 91.0 ?? 94.0 ? 3.0 ? L.D. = Latency Difference Impression: The latency of the pattern reversal visual evoked potential is entirely normal in each eye and comparisons in terms of latency between the eyes is also normal. ??There are no significant hemispheric asymmetries to suggest a retrochiasmatic process, although this does not exclude the possibility of a chiasmatic disturbance Luis Aranda MD, PhD ABPN Neurology [facility] Clinical Neurophysiology Jayden Roger MD NEUROLOGY [facility] POINT OF CARE documented in this encounter Visit Diagnoses Diagnosis Visual field defect- Primary Visual field defect, unspecified Visual field defect Visual field defect, unspecified Decreased peripheral vision of left eye Pain of left eye Pain in or around eye documented in this encounter Historical Medications * This list may reflect changes made after this encounter. Medication Sig Dispensed Refills Start Date End Date linaCLOtide (LINZESS) 145 mcg capsule Take 145 mcg by mouth daily. citalopram (CELEXA) 20 mg tablet Take 20 mg by mouth at bedtime. tiZANidine (ZANAFLEX) 2 mg tablet Take 2 mg by mouth daily. added in this encounter Eye Exam Visual Acuity (Snellen - Linear) Right eye Left eye Dist cc 20/25 20/40 Dist ph cc NI NI Near cc J1+ J7 Correction: Glasses Tonometry (Applanation, 11:15) Right eye Left eye Pressure 16 15 Pupils Dark Light Shape React APD Right eye 4 3 Round Brisk None Left eye 4 3 Round Brisk No apparen t APD Visual Woo Right eye Left eye Full Restrictions Total inferior t emporal, inferior nasal deficiencies Extraocular Movement Unable to assess eye movements - pt winces in pain when left eye moves beyond primary gaze. Neuro/Psych Oriented x3: Yes Mood/Affect: Normal [place] Right eye Left eye straight lines - all 4 corners v isualized wavy lines sup to dot, can only visualize the top corners. Color Right eye Left eye Ishihara 12/12 correct unable to identi fy test plate Slit Lamp Exam Right eye Left eye Anterior Chamber mod, quiet mod, quiet Wearing Rx Sphere Cylinder [place] Right eye -3.75 +1.75 129 Left eye -2.25 +0.50 089 Age: 1yr Type: SVL - distanc Care Teams Ratoprinter Relationship Specialty Start Date End Date Caleb Ballard RPA [facility] [address] [place], [place] [id number] PCP - General 02/27/20 documented as of this encounter
--- OUTSIDE RECORDS SUMMARY | 2023-10-06 17:06 | XMS_ITS | Encounter Summary ---
Author Organization [facility] Address [address] [place] [address] Care Team Providers Care Mortar Maker Name Role Phone Caleb Ballard RPA Primary Care Provider [phone] [phone] Encounter Details Date Type Department Care Team (Late st Contact Info) Description 05/30/2021 Lab Requisition [facility] Pathology & Laboratory Medicine - [facility] [address] [place] [address] Outr Resulting Lab, Provider Social History Tobacco Use Types Packs/Day Years [...] 19:23 EST Sexual Orientation Not on file documented as of this encounter Plan of Treatment Not on file documented as of this encounter Procedures Procedure Name Priority Date/Time Associated Diagnosis Comments CHLAMYDIA/N. GONORRHOEAE AMPLIFIED NUCLEIC ACID Routine 05/29/2021 10:14 EDT documented in this encounter Results * CHLAMYDIA/N. GONORRHOEAE AMPLIFIED RNA (05/29/2021 10:14 EDT) Neisseria gonorrhoeae Result Negative Negative 05/31/2021 13:10 EDT [facility] Chlamydia trachomatis Result Negative Negative 05/31/2021 13:10 EDT [facility] Urine URINE / Unknown 05/29/2021 1 0:14 EDT 05/30/2021 22:25 EDT Narrative [facility] - 05/31/2021 13:10 EDT A first catch urine specimen is acceptable for detection of Gonorrhea and Chlamydia, but might detect up to 10% fewer infections when compared with vaginal and endocervical swab samples. Provider Outr Resulting Lab MICROBIOLOGY - GENERAL ORDERABLES [facility] [address] [place] [address] documented in this encounter Visit Diagnoses Not on filedocumented in this encounter Care Teams Mortar Maker Relationship Specialty Start Date End Date Caleb Ballard RPA [address] [place] [address] PCP - General 02/27/20 documented as of this encounter
--- OUTSIDE RECORDS SUMMARY | 2023-10-06 17:06 | XMS_ITS | Encounter Summary ---
Author Organization [facility] Address [address] [place] [address] Care Team Providers Care Title One Teacher Name Role Phone Naty Ballardrick Augustine BERGER Primary Care Provider [phone] [phone] Encounter Details Date Type Department Care Team (Late st Contact Info) Description 09/12/2020 Lab Requisition [facility] Pathology & Laboratory Medicine - [address] [address] Miguel Vaughn MD [address] [place] [phone] Gastro-esophageal reflux disease without esophagitis; Other postprocedural complications and disorders of digestive system Social History Tobacco Use Types Packs/Day Years [...] Procedure Name Priority Date/Time Associated Diagnosis Comments SURGICAL PATHOLOGY Today 09/11/2020 11 :00 EDT Gastro-esophageal reflux disease without esophagitis Other postprocedural complications and disorders of digestive system documented in this encounter Results * SURGICAL PATHOLOGY (09/11/2020 11:00 EDT) Note to Patient The following pathology results have been interpreted by your pathologist and may be available to you before your health provider has had the opportunity to review them. Please allow time for your provider to receive these results and explore management options, if applicable. 09/16/2020 13:23 [facility] Final Diagnosis A. DUODENUM, BIOPSY: - No significant pathologic abnormality B. DUODENUM, BULB, BIOPSY: - Mild peptic duodenitis C. STOMACH, ANTRUM, BIOPSY: - Mild reactive (chemical) gastropathy D. STOMACH, BODY, BIOPSY: - No significant pathologic abnormality E. ESOPHAGUS, DISTAL, BIOPSY: - Squamous mucosa with no significant pathologic abnormality F. ESOPHAGUS, MID, BIOPSY: - Squamous mucosa with no significant pathologic abnormality 09/16/2020 13:23 [facility] Attestation By the signature below, the attending physician certifies that they have 1) personally conducted a gross and/or microscopic examination of the described specimen(s), and/or personally interpreted the results of laboratory testing of the described specimen(s), and 2) personally rendered or confirmed the above diagnosis. 09/16/2020 13:23 [facility] at 1323 Clinical History GERD, nausea, slipped mirtha fundoplication, gastric erosions; clinical diagnosis code: K21.9, K91.89, R11 09/16/2020 13:23 [facility] Gross Description A. Received in formalin labelled with proper patient identification (initials C, R) and duodenum Bx are 2 fragments of stanley soft tissue (0.2 x 0.2 x 0.2 cm and 0.4 x 0.2 x 0.2 cm). The specimen is entirely submitted in A1. B. Received in formalin labelled with proper patient identification (initials C, R) and duodenal bulb Bx are fragments of stanley soft tissue (0.1 x 0.1 x 0.1 cm and 0.3 x 0.2 x 0.2 cm). The specimen is entirely submitted in B1. C. Received in formalin labelled with proper patient identification (initials C, R) and antrum Bx is a single fragment of stanley soft tissue (0.3 x 0.3 x 0.2 cm). The specimen is entirely submitted in C1. D. Received in formalin labelled with proper patient identification (initials C, R) and gastric body Bx is a single fragment of stanley-yellow soft tissue (0.4 x 0.3 x 0.2 cm). The specimen is entirely submitted in D1. E. Received in formalin labelled with proper patient identification (initials C, R) and distal esophagus Bx are 2 fragments of quiroga-white soft tissue (0.2 x 0.2 x 0.2 cm and 0.4 x 0.3 x 0.2 cm). The specimen is entirely submitted in E1. F. Received in formalin labelled with proper patient identification (initials C, R) and midesophagus Bx are 2 fragments of pink-white soft tissue (0.2 x 0.2 x 0.2 cm and 0.3 x 0.2 x 0.2 cm). The specimen is entirely submitted in F1. TELLY CAZARES(ASCP) 09/12/2020 11:29 09/16/2020 13:23 [facility] Performing Lab [facility] 09/16/2020 13:23 T [facility] Scanned Images 09/16/2020 13:23 [facility] Tissue ENTIRE ESOPHAGUS / Unknown 09/11/2020 11:00 EDT 09/12/2020 9:43 EDT Tissue specimen (specimen) STRUCTURE OF SMALL INTESTINE / Unknown 09/11/2020 11:00 EDT 09/12/2020 9:43 EDT Tissue specimen (specimen) STOMACH STRUCTURE / Unknown 09/11/2020 11:00 EDT 09/12/2020 9:43 EDT Tissue specimen (specimen) STOMACH STRUCTURE / Unknown 09/11/2020 11:00 EDT 09/12/2020 9:43 EDT Tissue specimen (specimen) ESOPHAGEAL STRUCTURE / Unknown 09/11/2020 11:00 EDT 09/12/2020 9:43 EDT Tissue specimen (specimen) ESOPHAGEAL STRUCTURE / Unknown 09/11/2020 11:00 EDT 09/12/2020 9:43 EDT Miguel Vaughn MD PATHOLOGY ORD ERABLES [facility] [address] [place] [address] documented in this encounter Visit Diagnoses Diagnosis Gastro-esophageal reflux disease without esophagitis Esophageal reflux Other postprocedural complications and disorders of digestive system documented in this encounter Care Teams Title One Teacher Relationship Specialty Start Date End Date Caleb Ballard RPA [address] [place] [address] PCP - General 02/27/20 documented as of this encounter
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
--- OUTSIDE RECORDS SUMMARY | 2023-10-06 17:06 | XMS_ITS | Encounter Summary ---
Author Organization [facility] Address [address] [place] [address] Care Team Providers Care Heel Packer Name Role Phone Shital Brooke SAMUEL Primary Care Provider [phone] Reason for Visit * Reason Onset Date Comments Appointment Related 04/13/2016 Encounter Details Date Type Department Care Team (Late st Contact Info) Description 04/13/2016 Telephone [facility] Bariatric Surgery - [address] [phone] Maegan Horton MD [address] [place] [phone] Appointment Related Social History Tobacco Use Types Packs/Day Years [...] encounter Miscellaneous Notes * Telephone Encounter - Padma Bruce - 04/13/2016 7839 EST Called Ruby to confirm surgery check-in time with Dr. Mckeon. Surgery is scheduled on 2017 at 10:15 am. She will check-in with Level 3 Registration at the [facility] [place] [facility] by 08:15 am. Reminder, nothing by mouth after midnight, except medications with small sips of water. documented in this encounter Plan of Treatment Not on file documented as of this encounter Visit Diagnoses Not on filedocumented in this encounter Care Teams Heel Packer Relationship Specialty Start Date End Date Shital Brooke NP [address] [place] [address] PCP - General 02/26/16 02/26/20 documented as of this encounter
--- OUTSIDE RECORDS SUMMARY | 2023-10-06 17:06 | XMS_ITS | Encounter Summary ---
Author Organization [facility] Address [address] [place] [address] Care Team Providers Care Registered Safety Engineer Name Role Phone Shital Brooke BARREL INSPECTOR TIGHT Primary Care Provider [phone] Reason for Visit * Reason Onset Date Comments Other 04/26/2016 Pt is at the [facility] ER and the Nurse has questions about Pain med, and to touch base please call Encounter Details Date Type Department Care Team (Late st Contact Info) Description 04/26/2016 Telephone [facility] General Surgery - [address] [address] Maegan Horton MD [address] [place] [phone] Other ( Pt is at the [place] ER and the Nurse has questions about Pain med, and to touch base please call ) Social History Tobacco Use Types Packs/Day Years [...] encounter Miscellaneous Notes * Telephone Encounter - Ekaterina Hunter RN - 04/26/2016 1247 EDT Spoke with nurse Ambreen in [place], [place] ER. She has questions regarding care for patient. Patient is s/p umbilical hernia repair on 04/14/[address] Horton. She states that the patient was taking oxycodone for pain management but stopped because of nausea.She states on physical exam, patient is afebrile with non- tender abdomen. Does c/o generalized abdominal pain. Advised her that I spoke with patient on 04/21/16, post op day 7 and explained to her that she neededto be seen by provider for more pain medication if she was still experiencing that much pain. Advised the nurse to get ultrasound to rule out recurrence and if no hernia, advise ibuprofen/tylenol. Made appt with Dr. Horton for 04/30/16 at 1pm for follow up. Nurse agrees with plan and will call me with any questions or concerns. Electronically signed by Ekaterina Hunter RN CBN documented in this encounter Plan of Treatment Not on file documented as of this encounter Visit Diagnoses Not on filedocumented in this encounter Care Teams Registered Safety Engineer Relationship Specialty Start Date End Date Shital Brooke [place] [address] [place] [address] PCP - General 02/26/16 02/26/20 documented as of this encounter
--- OUTSIDE RECORDS SUMMARY | 2023-10-06 17:06 | XMS_ITS | Encounter Summary ---
Author Organization [facility] Address [address] [place] [address] Care Team Providers Care High Worker Name Role Phone Caleb Ballard CELINE Primary Care Provider [phone] Reason for Visit * Reason Comments Eye Problem Encounter Details Date Type Department Care Team (Late st Contact Info) Description 04/16/2020 9:15 EST Office Visit [facility] Ophthalmology - [address] [phone] Yoni Vega MD [address] [facility], [address] [place] [address] Social History Tobacco Use Types [...] as of this encounter Progress Notes * Yoni Vega MD - 04/16/2020 0915 EST Chief Complaint Patient presents with ??? Eye Problem Comments Retina consult per Dr Roger,Pt stats left eye pain x few months with blurry vision, very sensitive to light, + tearing, pain 10/10 at times, no flashes no floaters, using AT's once a week both eyes HPI Location: Left eye Pain: Quality: Aching, Burning, Blurry, Stabbing Severity: Severe Duration: Days Timing: Constant Lasts: Continuous Context: Retina consult per Dr Roger,Pt stats left eye pain x few months with blurry vision, very sensitive to light, + tearing, pain 10/10 at times, no flashes no floaters, using AT's once a week both eyes Modifying factors: nothing Associated Signs & Symptoms: unknown Visual Fluctuations: None Attestation: Base Eye Exam Visual Acuity (Snellen - Linear) Right Left Dist sc 20/150 Dist cc 20/25 -2 Dist ph sc 20/80 Dist ph cc NI Correction: Glasses Tonometry (Applanation, 9:11) Right Left Pressure 18 17 Pupils Dark Light Shape React APD Right 4 3 Round Brisk None Left 4 3 Round Brisk None Visual Woo Right Left Full Restrictions Total inferior temporal, inferior nasal deficiencies Neuro/Psych Oriented x3: Yes Mood/Affect: Normal Dilation Both eyes: Phenylephrine 2.5%, Tropicamide 1% @ 9:11 Slit Lamp and Fundus Exam External Exam Right Left External Normal Normal Slit Lamp Exam Right Left Lids/Lashes Normal Normal Conjunctiva/Sclera White and quiet White and quiet Cornea Clear Clear Anterior Chamber Deep and quiet Trace Cell Iris Round and reactive Round and reactive Lens Clear Clear Vitreous Normal no vit cell Fundus Exam Right Left Disc Healthy Rim deep C/D Ratio 0.5 0.5 Macula Normal dry, couple tiny hard drusen Vessels Normal Normal Periphery flat, no holes, tears or lesions flat, no holes, tears or lesions Imaging: B-Scan Ultrasound - OS - Left Eye Quality was good. Findings included normal observations. Notes No evidence of T sign consistent with posterior scleritis Impression: 1. Pain of left eye B-SCAN ULTRASOUND - OS - LEFT EYE 2. Visual field defect Plan: Eye pain left eye, ? Etiology? ? AC inflammation seen post dilation VF defect but no APD and nl scan No retinal abnormality to explain I, Dr. Vega, have performed my own HPI and reviewed the tech's ROS. I have also reviewed the patient's past medical, family, social and surgical history, as well as the patient's medications, allergies, and problem list. I am scribing for, Yoni Vega MD, while he is personally performing the service. JOO Wade (Scribe) documented in this encounter Plan of Treatment Not on file documented as of this encounter Procedures Procedure Name Priority Date/Time Associated Diagnosis Comments B-SCAN ULTRASOUND - OS - LEFT EYE Routine 04/16/2020 12:50 EST Pain of left eye documented in this encounter Results * B-SCAN ULTRASOUND - OS - LEFT EYE (04/16/2020 12:50 EST) Narrative [facility] POINT OF CARE - 04/16/2020 12:50 EST Quality was good. Findings included normal observations. Notes No evidence of T sign consistent with posterior scleritis bscan of the retina-indication media opacity preventing adequate visualization of the fundus with indirect ophthalmoscopy FINDINGS- shows the retina to be flat in all cuts including superior, superonasal,nasal, inferior, inferiornasal,nasal,superiornasal,disc and macular cuts ASSESS- no evidence on Bscan of retinal detachment or mass lesion Plan no retinal detachment surgery or laser surgery for holes or tears based on bscan done today Yoni Vega MD OPHTH ULTRASOUND [facility] POINT OF CARE documented in this encounter Visit Diagnoses Diagnosis Pain of left eye- Primary Pain in or around eye Visual field defect Visual field defect, unspecified documented in this encounter Eye Exam Visual Acuity (Snellen - Linear) Right eye Left eye Dist sc 20/150 Dist cc 20/25 -2 Dist ph sc 20/80 Dist ph cc NI Correction: Glasses Tonometry (Applanation, 9:11) Right eye Left eye Pressure 18 17 Pupils Dark Light Shape React APD Right eye 4 3 Round Brisk None Left eye 4 3 Round Brisk None Visual Woo Right eye Left eye Full Restrictions Total inferior t emporal, inferior nasal deficiencies Neuro/Psych Oriented x3: Yes Mood/Affect: Normal Dilation Both eyes: Phenylephrine 2.5 %, Tropicamide 1% @ 9:11 External Exam Right eye Left eye External Normal Normal Slit Lamp Exam Right eye Left eye Lids/Lashes Normal Normal Conjunctiva/Sclera White and quiet White and lobito et Cornea Clear Clear Anterior Chamber Deep and quiet Trace Cell Iris Round and reactive Round and tahir ctive Lens Clear Clear Vitreous Normal no vit cell Fundus Exam Right eye Left eye Disc Healthy Rim deep C/D Ratio 0.5 0.5 Macula Normal dry, couple tiny hard drusen Vessels Normal Normal Periphery flat, no holes, tears or lesions flat, no holes, tears or lesions Care Teams High Worker Relationship Specialty Start Date End Date Caleb Ballard RPA [address] [place] [id number] PCP - General 02/27/20 documented as of this encounter
--- OUTSIDE RECORDS SUMMARY | 2023-10-06 17:06 | XMS_ITS | Encounter Summary ---
Author Organization [facility] Address [address] [place] [address] Care Team Providers Care Sales Clerk Name Role Phone Caleb Ballard RPA Primary Care Provider [phone] Encounter Details Date Type Department Care Team (Late st Contact Info) Description 12/15/2020 Lab Requisition [facility] Pathology & Laboratory Medicine - [facility] [address] [place] [address] Outr Resulting Lab, Provider Social History Tobacco [...] Procedure Name Priority Date/Time Associated Diagnosis Comments ZZCOVID-19 TEST [facility] PCR Today 12/15/2020 9:32 EDT COVID-19 TESTING Routine 12/15/2020 9:32 EDT documented in this encounter Results * COVID-19 TEST [facility] PCR (12/15/2020 9:32 EDT) Swab ENTIRE NASOPHARYNX / Unknown 12/15/2020 9:32 EDT 12/16/2020 16:45 EDT Provider Outr Resulting Lab MICROBIOLOGY - GENERAL ORDERABLES Performing Organization Address City/[facility]/ZIP Co de Phone Number [facility] [address] [place] [address] * COVID-19 TESTING (12/15/2020 9:32 EDT) COVID-19 rt-PCR Result Negative Negative 12/17/2020 12:01 EDT [facility] Comment: This test has not been FDA cleared or approved. This test has been authorized by FDA under an EUA for use by authorized laboratories. This test has been authorized only for detection of nucleic acid from 2019-nCoV, not for any other viruses or pathogens. This test is only authorized for the duration of the declaration that circumstances exist justifying the authorization of emergency use of in vitro diagnostic tests for detection and/or diagnosis of 2019-nCoV under section 564(b)(1) of Act, 21 U.S.C ?? 360bbb-3(b) (1), unless the authorization is terminated or revoked sooner. Negative results do not preclude 2019-nCoV infection and should not be used as the sole basis for treatment or other patient management decisions. Negative results must be combined with clinical observations, patient history, and epidemiological information. Testing was performed using the goldie SARS-CoV-2 assay ([employer] on the Goldie 6800 System Performing Lab Goldie 6800 [facility] 12/17/2020 12:01 EDT [facility] Swab 12/15/2020 9:32 EDT 12/16/2020 16:45 EDT Provider Outr Resulting Lab MICROBIOLOGY - GENERAL ORDERABLES Performing Organization Address City/[facility]/ZIP Co de Phone Number [facility] [address] [place] [address] documented in this encounter Visit Diagnoses Not on filedocumented in this encounter Care Teams Sales Clerk Relationship Specialty Start Date End Date Caleb Ballard RPA [address] [place] [id number] PCP - General 02/27/20 documented as of this encounter
--- OUTSIDE RECORDS SUMMARY | 2023-10-06 17:06 | XMS_ITS | Encounter Summary ---
Author Organization [facility] Address [address] [place] [address] Care Team Providers Care Electrical Equipment Tester Name Role Phone Shital Brooke FACE WORKER Primary Care Provider Reason for Visit * Reason Comments Abdominal Pain Surgery 04/14/16 for u mbilical hernia. Increasing pain since surgery. Encounter Details Date Type Department Care Team (Late st Contact Info) Description 05/25/2016 11:32 EDT - 05/25/2016 19:17 EDT Emergency [facility] Emergency Department - [address] [id number] Laurel Reza PA-C [address] [place] [phone] Geronimo Sarmiento PA-C [address] [place] [phone] Abdi Vital MD [address] [place] [phone] Emergency, MD Iza Epigastric pain (Primary Dx) Discharge Disposition: Home or Self Care Social History Tobacco Use Types Packs/Day Years [...] Sign Reading Time Taken Comments Blood Pressure 142/81 05/25/20161915 EDT Pulse 86 05/25/2016 191 EDT Temperature 37.1 ??C (98.8 ??F) 05/25/2016 1139 EDT Respiratory Rate 16 05/25/20161915 EDT Oxygen Saturation 98% 05/25/2016 191 EDT Inhaled Oxygen Concentration - - Weight 63.5 kg (140 lb) 05/25/2016 1139 EDT Height 147.3 cm (4' 10) 05/25/2016 1139 EDT Body Mass Index 29.26 05/25/2016 1139 EDT documented in this encounter Discharge Diagnoses Diagnosis R10.33 Periumbilical pain-R10.33[ICD-10-CM] G89.29 Other chronic pain-G89.29[ICD-10-CM] R10.10 Upper abdominal pain, unspecified-R10.10[ICD-10-CM] F17.210 Nicotine dependence, cigarettes, uncomplicated-F17.210[ICD-10-CM] Z98.890 Other specified postprocedural states-Z98.890[ICD-10-CM] Z79.899 Other mcfp (current) drug therapy-Z79.899[ICD-10-CM] documented in this encounter Discharge Instructions * Discharge Instructions* Geronimo Sarmiento PA - 05/25/2016 19:26 EDT Follow-up with your primary care provider for further care. You may try the Bentyl as prescribed for abdominal cramps. At this time the CT scan shows no abnormalities around the hernia site Bentyl * Attachments The following attachments cannot be sent through Care Everywhere. * ABDOMINAL PAIN (YI) documented in this encounter Medications at Time of Discharge Medication Sig Dispensed Refills Start Date End Date amitriptyline (ELAVIL) 100 mg tablet Take 100 mg by mouth at bedtime as needed for Sleep. Reported on 03/08/2016 dicyclomine (BENTYL) 10 mg capsule Take 1 Cap by mouth 4 times daily (before meals and at bedtime). 15 Cap 05/25/2016 lisinopril (PRINIVIL, ZESTRIL) 10 mg tablet Take 10 mg by mouth daily. meclizine (ANTIVERT) 25 mg tabletIndications:vertigo Take 25 mg by mouth 3 times daily as needed. oxyCODONE (ROXICODONE) 5 mg immediate release tablet Take 1-2 Tabs by mouth every 6 hours as needed for Pain. Daily Max: 40 mg 20 Tab 2016 traMADol (ULTRAM) 50 mg tablet Take 50 mg by mouth every 6 hours. Reported on 05/25/2016 documented as of this encounter Ordered Prescriptions Prescription Sig Dispensed Refills Start Date End Da te dicyclomine (BENTYL) 10 mg capsule Take 1 Cap by mouth 4 times daily (before meals and at bedtime). 15 Cap 05/25/2016 documented in this encounter Discharge Disposition Disposition Code Departure Means Destination Home or Self Nursing Home documented in this encounter Consult Notes * Migel Rhodes MD - 05/25/2016 1534 EDT Emergency Department Surgical Consult Admit Date: 05/25/2016 Date of Service: 05/25/2016 Hospital day: LOS: 0 days Chief Complaint: Pain at prior Hernia Site HPI: (The history is obtained from the chart, providers, and the patient.) Ms. Ruby Sprague is a 36 y.o. female who presents to the [facility] ED with worsening abdominal pain for 3-4 weeks after having an umbilical hernia repaired by Dr. Horton on 04/14/16. The patient presented on 04/14 for an outpatient repair of her umbilical hernia. It was discovered while seeing her PCP for chronic upper abdominal pain for which she had been referred to GI at [facility] however has not seen. The repair was uncomplicated, without mesh, and she was discharged home from PACU on POD 0. On 04/21, she called the general surgery clinic and asked for more pain medications since the oxycodone she was prescribed made her nauseated; however, she was told she should no longer be needing painmeds and agreed with that. However, she presents to an OSH ER on 04/26 requesting more pain medication for ongoing, generalized, abdominal pain. She was discharged with the plan to follow-up with Dr. Horton on 04/30. He statedthat she was doing well at that time, without issues related to her prior surgery, and did not believe she needed additional pain medication. However, the pain persisted per the patient, and she made several trips to the ED near her home. She believes they found a defect and needed to be seen by Dr. Horton. An appointment was made for the 07 of June. However, her pain again worsened, and she now presented to the [facility] ED. She states her pain has been constant since surgery but has intensified since seeing Dr. Horton. She describes it as a constant, sharp, non-radiating pain at her incision. She has some nausea with it but no vomiting. She has not experienced changes in bowel movements or urination. The pain feels similar to her pre-operative pain. Movement and activity make the pain worse. After 2 hours of laying/relaxing, sometimes the pain improves. She has not experienced constipation symptoms or had weightloss. Ruby Sprague otherwise denies dizziness, lightheadedness, headache, changes in vision/taste, confusion, trouble swallowing, difficulty word finding, fevers, chills, vomiting, chest pain, palpitations, SOB, changes in bowel or bladder habits/functions, weakness, numbness, tingling, or unexplained lumps, bumps, bruises, or bleeding. PMH PSH No past medical history on file. Past Surgical History: Procedure Laterality Date ??? MOUTH SURGERY 2006 Upper teeth extracted ??? TUBAL LIGATION Social History Family history Social History Substance Use Topics ??? Smoking status: Current Every Day Smoker Packs/day: 0.25 ??? Smokeless tobacco: Never Used ??? Alcohol use 0.6 oz/week 1 Cans of beer per week Family History Problem Relation Age of Onset ??? Diabetes Mother Medications (Not in a hospital admission) Allergies No Known Allergies Review of Systems: Pertinent items are noted in Subjective/HPI Objective/Physical Exam: VS: Patient Vitals for the past 8 hrs: BP Pulse Heart Rate Resp Temp SpO2 05/25/16 1606 (!) 158/87 - 84 BPM 16 - 99 % 05/25/16 1139 (!) 145/133 94 - - 37.1 ??C (98.8 ??F) 99 % Pain: Patient Vitals for the past 8 hrs: Numeric Pain Level (Scale 1-10) 05/25/16 1606 10 05/25/16 1139 10 Exam: General Appearance: alert, cooperative, no distress Lung: clear to auscultation bilaterally, non labored breathing Heart: regular rhythm Abdomen: soft, extremely tender near incision site when touching skin, non- tender in remainder of abdomen Extremities: all extremities warm and well perfused Skin: Skin color, temperature, turgor normal. No rashes or lesions, incision is clean, dry, well-healed, without redness Data Review: CBC, BMP, Pending Radiography: (Please refer to the chart for a full radiology report including all of the findings and impressions.) CT with IV contrast pending Assessment Active Hospital Problems Diagnosis ??? Periumbilical abdominal pain Priority: Medium Chronic, Has been referred to GI MsJed Sprague is a 36 y.o. female s/p umbilical hernia repair with persistent abdominal pain most consistent with her chronic abdominal pain to which she had been referred to GI medicine. However, to ensure this is not a more urgent or surgical issues, we recommend a set of labs with a CT scan with IV contrast to assess her more completely. Problems/Plan/Recomendations: - Full set of labs (CBC, BMP) - CT with IV contrast - Follow-up with GI as originally planned - PCP for evaluation of pain - Would not prescribe narcotics for any concern related to surgical pain unless source identified on CT Thank you for involving us in the care of this patient. Please call us with questions or with acutechanges in symptoms or exam. Migel Rhodes MD 16:32, 05/25/16 documented in this encounter ED Notes * Geronimo Sarmiento PA - 05/25/2016 1917 EDT DOS: 05/25/2016 Chief Complaint Patient presents with ??? Abdominal Pain Surgery 04/14/16 for umbilical hernia. Increasing pain since surgery. HPI The patient is a 36 y.o. female who presents today with Abdominal Pain (Surgery 04/14/16 for umbilical hernia. Increasing pain since surgery. ) HPI Comments: 36-year-old female here complaining of abdominal pain, states that the patient had surgery approximately 6 weeks ago of a small umbilical hernia with 1 suture placed. Notes state the patient has been to her primary care provider in [facility] multiple times needing pain medications. Shestates that she went to [facility] had recent ultrasound which was normal. She arrives here complaining again of diffuse abdominal pain especially worse around her umbilicus no nausea vomiting requesting pain medication The history is provided by the patient. Abdominal Pain Associated symptoms: no chest pain, no chills, no dysuria, no fever, no shortness of breath and no sore throat Review of Systems Review of Systems Constitutional: Negative. Negative for chills and fever. HENT: Negative. Negative for congestion, sore throat and trouble swallowing. Eyes: Negative. Negative for visual disturbance. Respiratory: Negative. Negative for chest tightness and shortness of breath. Cardiovascular: Negative. Negative for chest pain, palpitations and leg swelling. Gastrointestinal: Positive for abdominal pain. Negative for abdominal distention. Endocrine: Negative. Genitourinary: Negative. Negative for dysuria and frequency. Musculoskeletal: Negative. Negative for arthralgias. Skin: Negative. Negative for rash. Allergic/Immunologic: Negative. Negative for immunocompromised state. Neurological: Negative. Negative for dizziness and headaches. Hematological: Negative. Negative for adenopathy. Does not bruise/bleed easily. Psychiatric/Behavioral: Negative. Negative for confusion. All other systems reviewed and are negative. No Known Allergies Vital Signs Vitals Reassessment?: Yes Temp: 37.1 ??C (98.8 ??F) Temp src: Tympanic Pulse: 86 Heart Rate: 84 BPM Resp: 16 SpO2: 98 % BP: (!) 142/81 BP MAP: 136 mm Hg BP Device: BP Machine Patient Position: Sitting BP Cuff Location: Right arm O2 Device: None (Room air) Physical Exam Constitutional: She appears well-developed and well-nourished. HENT: Head: Normocephalic and atraumatic. Right Ear: External ear normal. Left Ear: External ear normal. Nose: Nose normal. Eyes: Pupils are equal, round, and reactive to light. Right eye exhibits no discharge. Left eye exhibits no discharge. Neck: Normal range of motion. Neck supple. No tracheal deviation present. Cardiovascular: Normal rate, regular rhythm and normal heart sounds. Pulmonary/Chest: Breath sounds normal. No respiratory distress. Abdominal: Soft. Bowel sounds are normal. She exhibits no distension and no mass. There is tenderness. There is guarding. There is no rebound. Moderate tenderness in the periumbilical region to very light palpation Musculoskeletal: Normal range of motion. She exhibits no edema or deformity. Neurological: She is alert. She has normal strength. No sensory deficit. Skin: No rash noted. Psychiatric: She has a normal mood and affect. Nursing note and vitals reviewed. RESULTS EKG orders: None Radiology orders: CT ABDOMEN, PELVIS W CONTRAST Imaging Reviewed. I have independently reviewed the images. There are no significant abnormalities ED Lab Results Labs Reviewed HEMAGRAM AND DIFFERENTIAL - Abnormal Result Value Status MCV 75 (*) Final MCH 24.0 (*) Final RDW-CV 18.6 (*) Final PLT 406 (*) Final ABS Monocytes 0.85 (*) Final WBC 10.06 Final RBC 4.99 Final Hemoglobin 12.0 Final HCT 37.4 Final Hypochromia 1+ Final MCHC 32.1 Final RDW-SD 49.6 Final Anisocytosis 1+ Final MPV 10.7 Final Neutrophils 61.2 Final Lymphocytes 27.2 Final Monocytes 8.4 Final Eosinophils 1.8 Final Basophils 0.9 Final Immature Grans 0.5 Final ABS Neutrophils 6.15 Final ABS Lymphs 2.74 Final ABS Eosinophils 0.18 Final ABS Basophils 0.09 Final ABS Immature Grans 0.05 Final Type of Diff: Automated Final POCT URINE DIPSTICK - Abnormal Ketones Trace (*) Final Protein Trace (*) Final Color YELLOW Final Clarity, UA Clear Final Glucose Neg Final Bilirubin Neg Final Specific [place] >=1.030 Final Blood Neg Final pH 5.5 Final Urobilinogen 0.2 Final Nitrite Neg Final Leuk Esterase Neg Final Tech ID [id number] Final BASIC METABOLIC PANEL Sodium 142 Final Potassium 4.1 Final Chloride 109 Final CO2 23 Final BUN 13 Final Creatinine 0.72 Final GFR, Calculated 107 Final Calcium 9.3 Final Calculated Calcium 9.2 Final Glucose, Serum 79 Final Fasting? Unknown Final POCT TEST, CLINITEK UPT Result Neg Final Tech ID [id number] Final Relevant Data Procedures Imaging Results CT ABDOMEN, PELVIS W CONTRAST (Final result) Result time: 05/26/16 11:41:[address] ABDOMEN AND PELVIS Final result Narrative: CT ABDOMEN, PELVIS W CONTRAST 05/25/2016 5:36 PM Clinical History/Comments: Periumbilical pain status post 6 weeks hernia repair Technique: CT of the abdomen and pelvis was performed following the administration intravenous contrast; coronal and sagittal multiplanar reconstructions generated. Comparison: 11/02/2015 CT abdomen pelvis. Findings: Lower chest: With exception of minimal dependent bibasilar atelectasis, there is no significant abnormality of the lungs. Hepatobiliary: There is a tiny periportal cyst, as well as an adjacent small ill-defined hypoattenuating lesion in the right hepatic lobe (axial 104). Otherwise, liver is unremarkable. Gallbladder is normal. There is no intrahepatic or extrahepatic biliary ductal dilatation. Spleen, pancreas, adrenal glands: A splenic cyst along the posterior aspect (axial 76) is unchanged since October 2015. Pancreas and adrenal glands are normal. Kidneys, ureters, bladder: There are multiple bilateral renal cysts. An eccentrically positioned 4 mm calculus associated with the mid right ureter is redemonstrated. There is no associated hydronephrosis. This is unchanged compared to October 2015. Of note, there had been a calculus within the lower pole of the right kidney in October 2014, which is no longer present. There are multiple other small nonobstructing calculi within the kidneys. Uterus, ovaries: There are small cysts in the region of the adnexa on both sides, though largest on the left is decreased in comparison to 2016 CT. Uterus is unremarkable. Bowel: There is no obstruction, adjacent stranding, or abnormal enhancement. Appendix is normal (coronal 203). Peritoneal cavity / Subperitoneal space: There is no intraperitoneal fluid or collection. Lymphovascular: No lymphadenopathy. Punctate calcifications are scattered throughout the aorto iliac vasculature. Abdominal wall: Patient is post periumbilical hernia repair, with expected minimal soft tissue stranding locally. There is no associated collection or findings concerning for infection. No recurrent hernia is identified. Musculoskeletal: No significant abnormality. Impression: 1. No acute abnormalities. 2. Unchanged eccentrically positioned 4 mm calcification likely within the proximal to mid right ureter and likely representing chronic nonobstructive ureteral calculus. Mild eccentric thickening of the ureter is identified in this region, similar as November 02, 2015. Urological consultation is advised. 3. Multiple additional nonobstructive renal calculi are noted. 3. Post hernia repair with minimal soft tissue stranding locally around the umbilicus, unremarkable post repair. 4. Small bilateral ovarian cysts. 5. Unchanged splenic cyst. 6. Tiny hypoattenuating lesions of the inferior right hepatic lobe, unchanged since prior CT, likely cysts. Dr. Richy Carcamo reviewed these findings with Lakshmi Crowe, RN (triage nurse) at [facility], who will relay the findings and recommendation for urology consult to Shital Obrien (PCP) on 05/26/2016 10:30 AM. I have personally reviewed the images and the above interpretation and agree with the findings. Preliminary result Narrative: PRELIMINARY RESIDENT REPORT CT ABDOMEN, PELVIS W CONTRAST 05/25/2016 5:36 PM Clinical History/Comments: Periumbilical pain status post 6 weeks hernia repair Technique: CT of the abdomen and pelvis was performed following the administration intravenous contrast; coronal and sagittal multiplanar reconstructions generated. Comparison: 11/02/2015 CT abdomen pelvis. Findings: Lower chest: With exception of minimal dependent bibasilar atelectasis, there is no significant abnormality of the lungs. Hepatobiliary: There is a tiny periportal cyst, as well as an adjacent small ill-defined hypoattenuating lesion in the right hepatic lobe (axial 104). Otherwise, liver is unremarkable. Gallbladder is normal. There is no intrahepatic or extrahepatic biliary ductal dilatation. Spleen, pancreas, adrenal glands: A splenic cyst along the posterior aspect (axial 76) is unchanged since October 2015. Pancreas and adrenal glands are normal. Kidneys, ureters, bladder: There are multiple bilateral renal cysts. An eccentrically positioned 4 mm calculus associated with the mid right ureter is redemonstrated. There is no associated hydronephrosis. This is unchanged compared to October 2015. Of note, there had been a calculus within the lower pole of the right kidney in October 2014, which is no longer present. There are multiple other small nonobstructing calculi within the kidneys. Uterus, ovaries: There are small cysts in the region of the adnexa on both sides, though largest on the left is decreased in comparison to 2016 CT. Uterus is unremarkable. Bowel: There is no obstruction, adjacent stranding, or abnormal enhancement. Appendix is normal (coronal 203). Peritoneal cavity / Subperitoneal space: There is no intraperitoneal fluid or collection. Lymphovascular: No lymphadenopathy. Punctate calcifications are scattered throughout the aorto iliac vasculature. Abdominal wall: Patient is post periumbilical hernia repair, with expected minimal soft tissue stranding locally. There is no associated collection or findings concerning for infection. No recurrent hernia is identified. Musculoskeletal: No significant abnormality. Impression: 1. No acute abnormalities. 2. Unchanged eccentrically positioned 4 mm calcification likely within the proximal to mid right ureter and likely representing chronic nonobstructive ureteral calculus. Mild eccentric thickening of the ureter is identified in this region, similar as November 02, 2015. Urological consultation is advised. 3. Multiple additional nonobstructive renal calculi are noted. 3. Post hernia repair with minimal soft tissue stranding locally around the umbilicus, unremarkable post repair. 4. Small bilateral ovarian cysts. 5. Unchanged splenic cyst. 6. Tiny hypoattenuating lesions of the inferior right hepatic lobe, unchanged since prior CT, likely cysts. Dr. Richy Carcamo reviewed these findings with Lakshmi Crowe, RN (triage nurse) at [facility], who will relay the findings and recommendation for urology consult to Shital Obrien (PCP) on 05/26/2016 10:30 AM. I have personally reviewed the images and the above interpretation and agree with the findings. Preliminary result Narrative: PRELIMINARY RESIDENT REPORT CT ABDOMEN, PELVIS W CONTRAST 05/25/2016 5:36 PM Clinical History/Comments: Periumbilical pain status post 6 weeks hernia repair Technique: CT of the abdomen and pelvis was performed following the administration intravenous contrast; coronal and sagittal multiplanar reconstructions generated. Comparison: 11/02/2015 CT abdomen pelvis. Findings: Lower chest: With exception of minimal dependent bibasilar atelectasis, there is no significant abnormality of the lungs. Hepatobiliary: There is a tiny periportal cyst, as well as an adjacent small ill-defined hypoattenuating lesion in the right hepatic lobe (axial 104). Otherwise, liver is unremarkable. Gallbladder is normal. There is no intrahepatic or extrahepatic biliary ductal dilatation. Spleen, pancreas, adrenal glands: A splenic cyst along the posterior aspect (axial 76) is unchanged since October 2015. Pancreas and adrenal glands are normal. Kidneys, ureters, bladder: There are multiple bilateral renal cysts. An eccentrically positioned 4 mm calculus associated with the mid right ureter is redemonstrated. There is no associated hydronephrosis. This is unchanged compared to October 2015. Of note, there had been a calculus within the lower pole of the right kidney in October 2014, which is no longer present. There are multiple other small nonobstructing calculi within the kidneys. Uterus, ovaries: There are small cysts in the region of the adnexa on both sides, though largest on the left is decreased in comparison to 2016 CT. Uterus is unremarkable. Bowel: There is no obstruction, adjacent stranding, or abnormal enhancement. Appendix is normal (coronal 203). Peritoneal cavity / Subperitoneal space: There is no intraperitoneal fluid or collection. Lymphovascular: No lymphadenopathy. Punctate calcifications are scattered throughout the aorto iliac vasculature. Abdominal wall: Patient is post periumbilical hernia repair, with expected minimal soft tissue stranding locally. There is no associated collection or findings concerning for infection. No recurrent hernia is identified. Musculoskeletal: No significant abnormality. Impression: 1. No acute abnormalities. 2. Unchanged eccentrically positioned 4 mm calcification likely within the proximal to mid right ureter and likely representing chronic nonobstructive ureteral calculus. Mild eccentric thickening of the ureter is identified in this region, similar as November 02, 2015. Urological consultation is advised. 3. Multiple additional nonobstructive renal calculi are noted. 3. Post hernia repair with minimal soft tissue stranding locally around the umbilicus, unremarkable post repair. 4. Small bilateral ovarian cysts. 5. Unchanged splenic cyst. 6. Tiny hypoattenuating lesions of the inferior right hepatic lobe, unchanged since prior CT, likely cysts. Dr. Richy Carcamo reviewed these findings with Lakshmi Crowe, RN (triage nurse) at [facility], who will relay the findings and recommendation for urology consult to Shital Obrien (PCP) on 05/26/2016 10:30 AM. Preliminary result Narrative: PRELIMINARY RESIDENT REPORT CT ABDOMEN, PELVIS W CONTRAST 05/25/2016 5:36 PM Clinical History/Comments: Periumbilical pain status post 6 weeks hernia repair Technique: CT of the abdomen and pelvis was performed following the administration intravenous contrast; coronal and sagittal multiplanar reconstructions generated. Comparison: 11/02/2015 CT abdomen pelvis. Findings: Lower chest: With exception of minimal dependent bibasilar atelectasis, there is no significant abnormality of the lungs. Hepatobiliary: There is a tiny periportal cyst, as well as an adjacent small ill-defined hypoattenuating lesion in the right hepatic lobe (axial 104). Otherwise, liver is unremarkable. Gallbladder is normal. There is no intrahepatic or extrahepatic biliary ductal dilatation. Spleen, pancreas, adrenal glands: A splenic cyst along the posterior aspect (axial 76) is unchanged since October 2015. Pancreas and adrenal glands are normal. Kidneys, ureters, bladder: There are multiple bilateral renal cysts. An eccentrically positioned 4 mm calculus associated with the mid right ureter is redemonstrated. There is no associated hydronephrosis. This is unchanged compared to October 2015. Of note, there had been a calculus within the lower pole of the right kidney in October 2014, which is no longer present. There are multiple other small nonobstructing calculi within the kidneys. Uterus, ovaries: There are small cysts in the region of the adnexa on both sides, though largest on the left is decreased in comparison to 2015 CT. Uterus is unremarkable. Bowel: There is no obstruction, adjacent stranding, or abnormal enhancement. Appendix is normal (coronal 203). Peritoneal cavity / Subperitoneal space: There is no intraperitoneal fluid or collection. Lymphovascular: No lymphadenopathy. Punctate calcifications are scattered throughout the aorto iliac vasculature. Abdominal wall: Patient is post periumbilical hernia repair, with expected minimal soft tissue stranding locally. There is no associated collection or findings concerning for infection. No recurrent hernia is identified. Musculoskeletal: No significant abnormality. Impression: 1. No acute abnormalities. 2. Unchanged eccentrically positioned 4 mm calcification likely within the proximal to mid right ureter and likely representing chronic nonobstructive ureteral calculus. Mild eccentric thickening of the ureter is identified in this region, similar as November 02, 2015. Urological consultation is advised. 3. Multiple additional nonobstructive renal calculi are noted. 3. Post hernia repair with minimal soft tissue stranding locally around the umbilicus, unremarkable post repair. 4. Small bilateral ovarian cysts. 5. Unchanged splenic cyst. 6. Tiny hypoattenuating lesions of the inferior right hepatic lobe, unchanged since prior CT, likely cysts. Preliminary result Narrative: PRELIMINARY RESIDENT REPORT CT ABDOMEN, PELVIS W CONTRAST 05/25/2016 5:36 PM Clinical History/Comments: Periumbilical pain status post 6 weeks hernia repair Technique: CT of the abdomen and pelvis was performed following the administration intravenous contrast; coronal and sagittal multiplanar reconstructions generated. Comparison: 11/02/2015 CT abdomen pelvis. Findings: Lower chest: With exception of minimal dependent bibasilar atelectasis, there is no significant abnormality of the lungs. Hepatobiliary: There is a tiny periportal cyst, as well as an adjacent small ill-defined hypoattenuating lesion in the right hepatic lobe (axial 104). Otherwise, liver is unremarkable. Gallbladder is normal. There is no intrahepatic or extrahepatic biliary ductal dilatation. Spleen, pancreas, adrenal glands: A splenic cyst along the posterior aspect (axial 76) is unchanged since October 2015. Pancreas and adrenal glands are normal. Kidneys, ureters, bladder: There are multiple bilateral renal cysts. An eccentrically positioned 4 mm calculus associated with the mid right ureter is redemonstrated. There is no associated hydronephrosis. This is unchanged compared to October 2015. Of note, there had been a calculus within the lower pole of the right kidney in October 2014, which is no longer present. There are multiple other small nonobstructing calculi within the kidneys. Uterus, ovaries: There are small cysts in the region of the adnexa on both sides, though largest on the left is decreased in comparison to 2016 CT. Uterus is unremarkable. Bowel: There is no obstruction, adjacent stranding, or abnormal enhancement. Appendix is normal (coronal 203). Peritoneal cavity / Subperitoneal space: There is no intraperitoneal fluid or collection. Lymphovascular: No lymphadenopathy. Punctate calcifications are scattered throughout the aorto iliac vasculature. Abdominal wall: Patient is post periumbilical hernia repair, with expected minimal soft tissue stranding locally. There is no associated collection or findings concerning for infection. Musculoskeletal: No significant abnormality. Impression: 1. No acute abnormalities. 2. Unchanged eccentrically positioned 4 mm calcification likely within the proximal to mid right ureter and likely representing chronic nonobstructive ureteral calculus. Multiple additional nonobstructive renal calculi are noted. 3. Post hernia repair with minimal soft tissue stranding locally around the umbilicus, unremarkable post repair. 4. Small bilateral ovarian cysts. 5. Unchanged splenic cyst. 6. Tiny hypoattenuating lesions of the inferior right hepatic lobe, unchanged since prior CT, likely cysts. Dr. Richy Carcamo discussed with Dr. Lei Winslow, senior client services vice president. Preliminary result Narrative: PRELIMINARY RESIDENT REPORT PRELIMINARY RESIDENT REPORT: COMPARISON: 11/02/2015 CT abdomen and pelvis There is minimal soft tissue stranding the region of the recent periumbilical hernia repair. There is no herniation of fat or bowel in this region. No fluid collections or findings concerning for abscess or wound infection. There are multiple bilateral renal cysts. An eccentrically positioned 4 mm calculus associated with the mid right ureter is redemonstrated. There is no associated hydronephrosis. This is unchanged compared to October 2015. Of note, there had been a calculus within the lower pole of the right kidney in October 2014, which is no longer present. There are multiple other small nonobstructing calculi within the kidneys. A cyst along the posterior aspect of the spleen is unchanged. No bowel obstruction. Appendix is normal (coronal 203). Lungs show minimal dependent bibasilar atelectasis. IMPRESSION: 1. No acute abnormalities. 2. Unchanged eccentrically positioned 4 mm calcification associated with the mid right ureter, likely representing a chronic nonobstructive ureteral calculus. Multiple additional nonobstructive renal calculi are noted. 3. Post hernia repair with minimal soft tissue stranding around the umbilicus, unremarkable post repair. Dr. Richy Carcamo discussed with Dr. Lei Winslow, senior client services vice president. ED COURSE A medical screening exam was performed. Patient was seen by surgical team they recommended doing a CT chest to clear that there is no other surgical intervention needed. This was performed which was read as normal with no surgical complications. ASSESSMENT AND PLAN Final diagnoses: Epigastric pain ED Current Prescriptions Medication Dispense Auth. Provider dicyclomine (BENTYL) 10 mg capsule 15 Cap Geronimo Sarmiento PA DISPOSITION: Discharged The patient's pain was managed to an adequate level weighing risk vs. benefit of further medications. Upon departure from the Emergency Department, the patient's pain was 5 on a zero to ten scale. Condition at departure from the Emergency Department: Good PCP: Shital Brooke [facility] 05/28/2016 22:04 No flowsheet data found. * Abdi Vital MD - 05/25/2016 1517 EDT I, Rama Prescott, am scribing for Abdi Vital M.D. while he is personally performing the service. Rama Prescott 05/25/2016 15:17 I performed a history and exam of this patient and discussed the case with the PA. Any descrepency between my chart and the PA chart reflect differences in the history and exam that were present on my evaluation of the patient. I fully participated in the patient's care. My plan is outlined below. Ruby Sprague is a 36 y.o. female with a history of s/p periumbilical hernia repair on 04/14 byDr. Horton. Patient presents to the ED with progressive constant pain around the hernia site. Shestates that she has had pain prior to her surgery but that it worsened following the procedure. Patient endorses normal bowel movements and passing of gas recently. She has presented to an outside provider for post-op pain multiple times. Patient reports that she has been getting hot and cold lately. Patient denies fever, vomiting, dysuria, chest pain, shortness of breath, cough, sore throat, or any other medical complaints. ROS: Positive for abdominal pain, subjective fever and chills. Negative for constipation, fever, vomiting, dysuria, chest pain, shortness of breath, cough, sore throat. My standard 10 point review ofsystems for this complaint is otherwise negative PE: Nontoxic appearing, normocephalic atraumatic, mucous membranes are moist, neck supple, lungs are clear bilaterally, heart regular rhythm, abdomen soft and minimally diffusely tender. No rash on visible skin. No gross deformities of extremities. No edema. Awake and alert. Patient is following commands speaking in full sentences. Affect is normal. Assessment: 36 yo F who presents with pain around her hernia ~6 weeks s/p hernia repair. No signs of infection on exam. Plan is for surg consult given proximity to surgery and CT scan. PLAN: Patient to receive CT abdomen in the ED. Patient signed out to oncoming ED MD with CT pending. This documentation is recorded by Rama Prescott acting as Scribe under the direction and presence of Abdi Vital M.D.: I personally performed the services recorded by the scribe in my presence. I confirm the scribe's documentation has been reviewed by me to accurately and completely record my work,treatment, procedures, and medical decision making. * Seble Delong, RN - 05/25/2016 3423 EDT Pt amb to bathroom for urine specimen. documented in this encounter Plan of Treatment Not on file documented as of this encounter Procedures Procedure Name Priority Date/Time Associated Diagnosis Comments CT ABDOMEN, PELVIS W CONTRAST STAT 05/25/2016 17:36 EDT COMPLETE BLOOD COUNT AND DIFFERENTIAL STAT 05/25/2016 16:01 EDT BASIC METABOLIC PANEL (BMP) STAT 05/25/2016 16:01 EDT POCT TEST, CLINITEK STAT 05/25/2016 15:02 EDT POCT URINE DIPSTICK, CLINITEK STAT 05/25/2016 15:00 EDT documented in this encounter Results * CT ABDOMEN, PELVIS W CONTRAST (05/25/2016 17:36 EDT) Anatomical Region Laterality Modality Other 05/25/2016 17:3 6 EDT 05/26/2016 11:41 EDT Narrative 05/26/2016 11:[address] ABDOMEN, PELVIS W CONTRAST ??05/25/2016 5:36 PM Clinical History/Comments: Periumbilical pain status post 6 weeks hernia repair Technique: CT of the abdomen and pelvis was performed following the administration intravenous contrast; coronal and sagittal multiplanar reconstructions generated. Comparison: 11/02/2015 CT abdomen pelvis. Findings: Lower chest: With exception of minimal dependent bibasilar atelectasis, there is no significant abnormality of the lungs. Hepatobiliary: There is a tiny periportal cyst, as well as an adjacent small ill-defined hypoattenuating lesion in the right hepatic lobe (axial 104). Otherwise, liver is unremarkable. Gallbladder is normal. There is no intrahepatic or extrahepatic biliary ductal dilatation. Spleen, pancreas, adrenal glands: A splenic cyst along the posterior aspect (axial 76) is unchanged since October 2015. Pancreas and adrenal glands are normal. Kidneys, ureters, bladder: There are multiple bilateral renal cysts. An eccentrically positioned 4 mm calculus associated with the mid right ureter is redemonstrated. There is no associated hydronephrosis. This is unchanged compared to October 2015. Of note, there had been a calculus within the lower pole of the right kidney in October 2014, which is no longer present. There are multiple other small nonobstructing calculi within the kidneys. Uterus, ovaries: There are small cysts in the region of the adnexa on both sides, though largest on the left is decreased in comparison to 2016 CT. Uterus is unremarkable. Bowel: There is no obstruction, adjacent stranding, or abnormal enhancement. Appendix is normal (coronal 203). Peritoneal cavity / Subperitoneal space: There is no intraperitoneal fluid or collection. Lymphovascular: No lymphadenopathy. Punctate calcifications are scattered throughout the aorto iliac vasculature. Abdominal wall: Patient is post periumbilical hernia repair, with expected minimal soft tissue stranding locally. There is no associated collection or findings concerning for infection. No recurrent hernia is identified. Musculoskeletal: No significant abnormality. Impression: 1. No acute abnormalities. 2. Unchanged eccentrically positioned 4 mm calcification likely within the proximal to mid right ureter and likely representing chronic nonobstructive ureteral calculus. Mild eccentric thickening of the ureter is identified in this region, similar as November 02, 2015. Urological consultation is advised. 3. Multiple additional nonobstructive renal calculi are noted. 3. Post hernia repair with minimal soft tissue stranding locally around the umbilicus, unremarkable post repair. 4. Small bilateral ovarian cysts. 5. Unchanged splenic cyst. 6. Tiny hypoattenuating lesions of the inferior right hepatic lobe, unchanged since prior CT, likely cysts. Dr. Richy Carcamo reviewed these findings with Lakshmi Crowe RN (triage nurse) [facility], who will relay the findings and recommendation for urology consult to Shital Obrien (PCP) on 05/26/2016 10:30 AM. I have personally reviewed the images and the above interpretation and agree with the findings. Procedure Note Yang Bruce MD - 05/26/2016 CT ABDOMEN, PELVIS W CONTRAST 05/25/2016 5:36 PM Clinical History/Comments: Periumbilical pain status post 6 weeks hernia repair Technique: CT of the abdomen and pelvis was performed following the administration intravenous contrast; coronal and sagittal multiplanar reconstructions generated. Comparison: 11/02/2015 CT abdomen pelvis. Findings: Lower chest: With exception of minimal dependent bibasilar atelectasis, there is no significant abnormality of the lungs. Hepatobiliary: There is a tiny periportal cyst, as well as an adjacent small ill-defined hypoattenuating lesion in the right hepatic lobe (axial 104). Otherwise, liver is unremarkable. Gallbladder is normal. There is no intrahepatic or extrahepatic biliary ductal dilatation. Spleen, pancreas, adrenal glands: A splenic cyst along the posterior aspect (axial 76) is unchanged since October 2015. Pancreas and adrenal glands are normal. Kidneys, ureters, bladder: There are multiple bilateral renal cysts. An eccentrically positioned 4 mm calculus associated with the mid right ureter is redemonstrated. There is no associated hydronephrosis. This is unchanged compared to October 2015. Of note, there had been a calculus within the lower pole of the right kidney in October 2014, which is no longer present. There are multiple other small nonobstructing calculi within the kidneys. Uterus, ovaries: There are small cysts in the region of the adnexa on both sides, though largest on the left is decreased in comparison to 2016 CT. Uterus is unremarkable. Bowel: There is no obstruction, adjacent stranding, or abnormal enhancement. Appendix is normal (coronal 203). Peritoneal cavity / Subperitoneal space: There is no intraperitoneal fluid or collection. Lymphovascular: No lymphadenopathy. Punctate calcifications are scattered throughout the aorto iliac vasculature. Abdominal wall: Patient is post periumbilical hernia repair, with expected minimal soft tissue stranding locally. There is no associated collection or findings concerning for infection. No recurrent hernia is identified. Musculoskeletal: No significant abnormality. Impression: 1. No acute abnormalities. 2. Unchanged eccentrically positioned 4 mm calcification likely within the proximal to mid right ureter and likely representing chronic nonobstructive ureteral calculus. Mild eccentric thickening of the ureter is identified in this region, similar as November 02, 2015. Urological consultation is advised. 3. Multiple additional nonobstructive renal calculi are noted. 3. Post hernia repair with minimal soft tissue stranding locally around the umbilicus, unremarkable post repair. 4. Small bilateral ovarian cysts. 5. Unchanged splenic cyst. 6. Tiny hypoattenuating lesions of the inferior right hepatic lobe, unchanged since prior CT, likely cysts. Dr. Richy Carcamo reviewed these findings with Lakshmi Crowe, RN (triage nurse) [facility], who will relay the findings and recommendation for urology consult to Shital Obrien (PCP) on 05/26/2016 10:30 AM. I have personally reviewed the images and the above interpretation and agree with the findings. Geronimo Sarmiento PA-C IMG CT ORDERABLES * (ABNORMAL) HEMAGRAM AND DIFFERENTIAL (05/25/2016 16:01 EDT) WBC 10.06 4.0 - 12.4 K/cmm 05/25/2016 16:31 [facility] RBC 4.99 3.86 - 5.04 M/cmm 05/25/2016 16:31 [facility] Hemoglobin 12.0 11.6 - 15.2 gm/dl 05/25/2016 16:31 [facility] HCT 37.4 34.9 - 44.4 % 05/25/2016 16:31 [facility] MCV 75(L) 81 - 98 fl 05/25/2016 16:31 [facility] MCH 24.0(L) 26.7 - 33.3 pg 05/25/2016 16:31 [facility] Hypochromia 1+ 05/25/2016 16:31 [facility] MCHC 32.1 32.1 - 35.9 gm/dl 05/25/2016 16:31 [facility] RDW-CV 18.6(H) 11.7 - 14.6 % 05/25/2016 16:31 [facility] RDW-SD 49.6 37.6 - 50.3 fl 05/25/2016 16:31 [facility] Anisocytosis 1+ 05/25/2016 16:31 [facility] PLT 406(H) 141 - 377 K/cmm 05/25/2016 16:31 [facility] MPV 10.7 9.5 - 12.7 fl 05/25/2016 16:31 [facility] % Neutrophils 61.2 % 05/25/2016 16:31 [facility] % Lymphocytes 27.2 % 05/25/2016 16:31 [facility] % Monocytes 8.4 % 05/25/2016 16:31 [facility] % Eosinophils 1.8 % 05/25/2016 16:31 [facility] % Basophils 0.9 % 05/25/2016 16:31 [facility] % Immature Grans 0.5 % 05/26/19 17 16:31 [facility] ABS Neutrophils 6.15 2.20 - 8.85 K/cmm 05/25/2016 16:31 [facility] ABS Lymphs 2.74 1.09 - 3.30 K/cmm 05/25/2016 16:31 [facility] ABS Monocytes 0.85(H) 0.1 - 0.8 K/cmm 05/25/2016 16:31 [facility] ABS Eosinophils 0.18 0.03 - 0.61 K/cmm 05/25/2016 16:31 [facility] ABS Basophils 0.09 0.01 - 0.11 K/cmm 05/25/2016 16:31 [facility] ABS Immature Grans 0.05 0 - 0.06 K/cmm 05/25/2016 16:31 [facility] Type of Diff: Automated 05/25/2016 16:31 [facility] Blood specimen (specimen) BLOOD SPECIMEN / Unknown 05/25/2016 16:01 EDT 05/25/2016 16:17 EDT Geronimo Sarmiento PA-C PACKAGES & DNA PROBE ORDERABLES Performing Organization Address City/[facility]/ZIP Co de Phone Number [facility] [address] [place] [address] * BASIC METABOLIC PANEL (05/25/2016 16:01 EDT) Sodium 142 136 - 145 mEq/L 05/25/2016 16:46 T [facility] Potassium 4.1 3.5 - 5.0 mEq/L 05/25/2016 16:46 [facility] Chloride 109 96 - 110 mEq/L 05/25/2016 16:46 [facility] CO2 23 22 - 32 mEq/L 05/25/2016 16:46 [facility] BUN 13 10 - 26 mg/dl 05/25/2016 16:46 [facility] Creatinine 0.72 0.52 - 1.04 mg/dl 05/25/2016 16:46 [facility] GFR, Calculated 107 >60 ml/min/1.7 3m2 05/25/2016 16:46 [facility] Comment: eGFR calculated using CKD-EPI equation for non Americans. Multiply eGFR by 1.16 for Americans. Calcium 9.3 8.5 - 10.5 mg/dl 05/25/2016 16:46 [facility] Calculated Calcium 9.2 8.5 - 10.5 mg/dl 05/25/2016 16:46 [facility] Glucose, Serum 79 70 - 100 mg/dl 05/25/2016 16:46 [facility] Fasting? Unknown 05/25/2016 16:18 [facility] Blood specimen (specimen) BLOOD SPECIMEN / Unknown 05/25/2016 16:01 EDT 05/25/2016 16:17 EDT Geronimo Sarmiento PA-C CHEMISTRY & BLOOD GA S ORDERABLES Performing Organization Address [facility]/ZIP Co de Phone Number [facility] [address] [place] [address] * POCT TEST, CLINITEK (05/25/2016 15:02 EDT) UPT Result Neg Neg 05/25/2016 15:20 [facility] thermal surfacing machine operator ID [id number] 05/25/2016 15:20 [facility] Comment:Test performed at [facility] Urine specimen (specimen) URINE / Unknown 05/25/2016 15:02 EDT 05/25/2016 15:20 EDT Laurel Reza PA-C POINT OF CAR E TEST ORDERABLES [facility] [address] [place] [address] * (ABNORMAL) POCT URINE DIPSTICK (05/25/2016 15:00 EDT) Color YELLOW 05/25/2016 15:13 [facility] Clarity, UA Clear 05/25/2016 15:13 [facility] Glucose Neg Neg 05/25/2016 15:13 [facility] Bilirubin Neg Neg 05/25/2016 15:13 [facility] Ketones Trace(A) Neg 05/25/2016 15:13 [facility] Specific [place] >=1.030 1.001 - 1.035 05/25/2016 15:13 [facility] Blood Neg Neg 05/25/2016 15:13 [facility] pH 5.5 4.6 - 8.0 05/25/2016 15:13 [facility] Protein Trace(A) Neg 05/25/2016 15:13 [facility] Urobilinogen 0.2 0.2 - 1.0 E.U./dl 05/25/2016 15:13 [facility] Nitrite Neg Neg 05/25/2016 15:13 [facility] Leuk Esterase Neg Neg 05/25/2016 15:13 [facility] thermal surfacing machine operator ID [id number] 05/25/2016 15:13 [facility] Comment:Test performed at [facility] Urine specimen (specimen) URINE / Unknown 05/25/2016 15:00 EDT 05/25/2016 15:13 EDT Laurel Reza PA-C POINT OF CAR E TEST ORDERABLES [facility] [address] [place] [address] documented in this encounter Visit Diagnoses Diagnosis Epigastric pain- Primary Abdominal pain, epigastric Periumbilical abdominal pain Abdominal pain, periumbilic documented in this encounter Administered Medications Inactive Administered Medications - up to 3 most recent administrations Medication Order MAR Action Action Date Dose Rate Site ketOROLAC (TORADOL) injection 30 mg 30 mg, intravenous, NOW X1, 1 dose, On e 05/25/16 at 1845, STAT Given 05/25/2016 18:36 EDT 30 mg traMADol (ULTRAM) tablet 50 mg 50 mg, oral, NOW X1, 1 dose, On Tue05/25/16 at 1915, STAT Given 05/25/2016 19:16 EDT 50 mg documented in this encounter Active and Recently Administered Medications Times are shown in EDT. Scheduled Medication Order 05/23/2016 05/24/2016 05/25/2016 ketOROLAC (TORADOL) injection 30 mg (COMPLETED) 30 mg, intravenous, NOW X1, 1 dose, On Tue05/25/16 at 1845, STAT 1836 (Given - Provid er: Seble Delong, DAVID) traMADol (ULTRAM) tablet 50 mg (COMPLETED) 50 mg, oral, NOW X1, 1 dose, On Tue05/25/16 at 1915, STAT 1916 (Given - Provid er: Seble Delong, RN) documented in this encounter Orders Nursing Count Last Ordered Date First Orde red Date INSERT PERIPHERAL IV 1 05/25/2016 documented in this encounter Care Teams Electrical Equipment Tester Relationship Specialty Start Date End Date Shital Brooke NP [address] [place] [address] PCP - General 02/26/16 02/26/20 documented as of this encounter
--- OUTSIDE RECORDS SUMMARY | 2023-10-06 17:06 | XMS_ITS | Encounter Summary ---
Author Organization [facility] Address [facility] [place] [address] Care Team Providers Care Mathematics Department Chair Name Role Phone Regina Correa MD Primary Care Provider [phone] Encounter Details Date Type Department Care Team (Latest Contact Info) Description 04/04/2012 - 04/04/2012 11:59 PM EST Hospital Encounter [place] [address] Leonardo Burris APRN [facility] [place] [address] Discharge Disposition: Home Social History Tobacco Use Types Packs/Day Years Used Date Smoking Tobacco: Never Assessed Sex and Gender Information Value Date Recorded [...] Diagnosis Comments FILM LIBRARY STORAGE ONLY DX SPINE Routine 04/04/2012 12:00 AM EST documented in this encounter Results * Film Library- Storage Only DX Spine (04/04/2012 12:00 AM EST) Narrative [facility] - 12/05/2017 8:19 AM EDT This exam is for storage only and is auto-finalizing. Leonardo Burris HOG CONFINEMENT SYSTEM MANAGER IMG FILM LIBRARY ORDERABLES Performing Organization Address City/State/[facility] Co de Phone Number DH [place], [place] documented in this encounter Visit Diagnoses Not on filedocumented in this encounter Care Teams Mathematics Department Chair Relationship Specialty Start Date End Date Regina Correa MD [address] [place] [id number] PCP - General 01/06/10 08/14/12 documented as of this encounter
--- OUTSIDE RECORDS SUMMARY | 2023-10-06 17:06 | XMS_ITS | Encounter Summary ---
Author Organization [facility] [address] [place] [address] Care Team Providers Care Jammer Hooker Name Role Phone Braydon Casillas APRN Primary Care Provider [phone] Encounter Details Date Type Department Care Team (Latest Contact Info) Description 09/16/2015 - 09/16/2015 11:59 PM EDT Hospital Encounter [place] [address] Leonardo Burris APRN [facility] [place] [address] Discharge Disposition: Home Social History Tobacco Use [...] Diagnosis Comments FILM LIBRARY STORAGE ONLY DX KNEE Routine 09/16/2015 12:00 AM EDT documented in this encounter Results * Film Library- Storage Only DX Knee (09/16/2015 12:00 AM EDT) Narrative [facility] - 12/05/2017 8:35 AM EDT This exam is for storage only and is auto-finalizing. Leonardo Burris APRN IMG FILM LIBRARY ORDERABLES Performing Organization Address City/State/[facility] Co de Phone Number [place], [place] documented in this encounter Visit Diagnoses Not on filedocumented in this encounter Care Teams Jammer Hooker Relationship Specialty Start Date End Date Braydon Casillas APRN PCP - General 08/15/12 11/09/15 documented as of this encounter
--- OUTSIDE RECORDS SUMMARY | 2023-10-06 17:06 | XMS_ITS | Encounter Summary ---
Author Organization [facility] Address [address] [place] [address] Care Team Providers Care Ultrasound Specialist Name Role Phone Shital Brooke OXYGEN FURNACE OPERATOR Primary Care Provider [phone] Reason for Visit * Reason Onset Date Comments Other 05/25/2016 Patient called. Extremely uncomfortable, wants to know if she comes [facility] ER if they can help her. Please call Encounter Details Date Type Department Care Team (Late st Contact Info) Description 05/25/2016 Telephone [facility] General Surgery - [facility] [address] [place] [address] Maegan Horton MD [address] [place] [phone] Other (Patient called. Extremely uncomfortable, wants to know if she comes [facility] if they can help her. Please call) Social History Tobacco Use Types Packs/Day Years [...] Telephone Encounter - Ekaterina Hunter RN - 05/25/2016 1012 EDT Spoke with patient. S/p umbilical hernia repair on 04/14/[address] Horton. She calls today to report that she is in a lot of pain and she keeps going to [facility] and they aren't doing anything.Wants to know if she should come to [facility] ER. I also asked if patient had an ultrasound to see if recurrent hernia, and patient couldn't recall. Advised patient to go to ER for evaluation. Patient agrees with plan. Electronically signed by Ekaterina Hunter RN CBN documented in this encounter Plan of Treatment Not on file documented as of this encounter Visit Diagnoses Not on filedocumented in this encounter Care Teams Ultrasound Specialist Relationship Specialty Start Date End Date Shital Brooke NP [address] [place] [address] PCP - General 02/26/16 02/26/20 documented as of this encounter
--- OUTSIDE RECORDS SUMMARY | 2023-10-06 17:06 | XMS_ITS | Encounter Summary ---
Author Organization [facility] Address [address] [place] [address] Care Team Providers Care Emergency Care Attendant Name Role Phone Shital Brooke ACADEMIC AFFAIRS COORDINATOR Primary Care Provider [phone] Reason for Visit * Reason Onset Date Comments Other 06/21/2019 Encounter Details Date Type Department Care Team (Late st Contact Info) Description 06/21/2019 Telephone [facility] Op[facility]mology - Main [place] [address] [place], [place] [id number] Jayden Roger MD [address] [facility], [address] [place] [address] Other Social History Tobacco Use Types Packs/Day [...] encounter Miscellaneous Notes * Telephone Encounter - Parris [place]ley - 06/22/2019 1611 EDT Pt having should surgery. Last time she had this in 2011 it took 3m to recover. Said she will call us to schedule once she can make the drive here. She will call if she has any concerns in the meantime * Telephone Encounter - Rosy Rea COA - 06/21/2019 1408 EDT Gladis Baxter has reminder to call patient back to schedule an appointment when she is able to make the trip here. * Telephone Encounter - Corinne Strickland - 06/21/2019 1350 EDT Called to schedule 6wk follow up. She said she is getting surgery around the and isn't sure what the recovery period is but wont be comfortable to drive here anytime soon. * Telephone Encounter - Corinne Strickland - 06/21/2019 1201 EDT Pt wanted to let Dr Roger know that she has received her lenses she was required to get. documented in this encounter Plan of Treatment Not on file documented as of this encounter Visit Diagnoses Not on filedocumented in this encounter Care Teams Emergency Care Attendant Relationship Specialty Start Date End Date Shital Brooke NP [address] [place] [address] PCP - General 02/26/16 02/26/20 documented as of this encounter
--- OUTSIDE RECORDS SUMMARY | 2023-10-06 17:06 | XMS_ITS | Encounter Summary ---
Author Organization [facility] Address [address] [place] [address] Care Team Providers Care Custom Tailor Apprentice Name Role Phone Shital Brooke NP Primary Care Provider [phone] Caleb Ballard RPA Primary Care Provider [phone] Encounter Details Date Type Department Care Team (Late st Contact Info) Description 07/12/2019 Lab Requisition [facility] Pathology & Laboratory Medicine - [address] [id number] Outr Resulting Lab, Provider Social History Tobacco [...] Comments CHLAMYDIA/N. GONORRHOEAE AMPLIFIED NUCLEIC ACID Routine 07/12/2019 9:18 EDT documented in this encounter Results * CHLAMYDIA/N. GONORRHOEAE AMPLIFIED RNA (07/12/2019 9:18 EDT) Neisseria gonorrhoeae Result Negative Negative 07/16/2019 13:13 EDT [facility] Chlamydia trachomatis Result Negative Negative 07/16/2019 13:13 EDT [facility] Swab ENTIRE WALL OF CERVIX / Unknown 07/12/2019 9:18 EDT 07/12/2019 17:01 EDT Provider Outr Resulting Lab MICROBIOLOGY - GENERAL ORDERABLES Performing Organization Address City/State/[facility] Co de Phone Number [facility] [address] [place] [address] documented in this encounter Visit Diagnoses Not on filedocumented in this encounter Care Teams Custom Tailor Apprentice Relationship Specialty Start Date End Date Shital Brooke NP [address] [place], [place] [id number] PCP - General 02/26/16 02/26/20 Caleb Ballard RPA [address] [id number] PCP - General 02/27/20 documented as of this encounter
--- OUTSIDE RECORDS SUMMARY | 2023-10-06 17:06 | XMS_ITS | Encounter Summary ---
Author Organization [facility] Address [address] [place] [address] Care Team Providers Care Rn Labor And Delivery Name Role Phone Elio Caleb Augustine BERGER Primary Care Provider [phone] Reason for Visit * Reason Onset Date Comments Follow-up 04/01/2020 Encounter Details Date Type Department Care Team (Late st Contact Info) Description 04/01/2020 Telephone [facility] Ophthalmology - [address] [address] Jayden Roger MD [address] [facility], [address] [place] [address] Follow-up Social History Tobacco Use Types Packs/Day Years [...] encounter Miscellaneous Notes * Telephone Encounter - Bridgette Robison - 04/07/2020 1218 EST Pt called back and is scheduled * Telephone Encounter - Bridgette Robison - 04/07/2020 1130 EST Lmom for pt to call back and scheduled an appointment with one of our retina providers * Telephone Encounter - David Miller - 04/01/2020 1156 EST Patient reports she has not heard from either of the providers or labs that Dr. Roger advised she would be hearing from. Patient states she was told to call if not hearing from them by now. Patient's contact info updated. documented in this encounter Plan of Treatment Not on file documented as of this encounter Visit Diagnoses Not on filedocumented in this encounter Care Teams Rn Labor And Delivery Relationship Specialty Start Date End Date Caleb Ballard RPA [address] [place] [address] PCP - General 02/27/20 documented as of this encounter
--- OUTSIDE RECORDS SUMMARY | 2023-10-06 17:06 | XMS_ITS | Encounter Summary ---
Author Organization [facility] Address [address] [place] [address] Care Team Providers Care Simulation Tech Name Role Phone Caleb Ballard RPA Primary Care Provider [phone] Encounter Details Date Type Department Care Team (Late st Contact Info) Description 05/30/2021 Lab Requisition [facility] Pathology & Laboratory Medicine - [facility] [address] [place], [place] [address] Outr Resulting Lab, Provider Social History Tobacco [...] Procedure Name Priority Date/Time Associated Diagnosis Comments HIV 1/2 ANTIGEN AND ANTIBODY, 4TH GENERATION Routine 05/29/2021 10:14 EDT documented in this encounter Results * HIV 1/2 ANTIGEN AND ANTIBODY, 4TH GENERATION (05/29/2021 10:14 EDT) HIV 1 and 2 Antibody/p24 Antigen, 4th Generation Negative Negative 06/01/2021 15:20 EDT [facility] Comment:If acute HIV-1 infec tion is suspected in a high risk patient, submit plasma specimen for HIV-1 RNA quantitation test. Blood VENOUS BLOOD / Unknown 05/29/2021 10:14 EDT 05/30/2021 22:06 EDT Narrative [facility] - 06/01/2021 15:20 EDT Fourth Generation assay performed on the Siemens webtideaur XPT. Provider Outr Resulting Lab IMMUNOLOGY A ND SEROLOGY ORDERABLES [facility] [address] [place] [address] documented in this encounter Visit Diagnoses Not on filedocumented in this encounter Care Teams Simulation Tech Relationship Specialty Start Date End Date Caleb Ballard RPA [address] [place] [address] PCP - General 02/27/20 documented as of this encounter
--- OUTSIDE RECORDS SUMMARY | 2023-10-06 17:06 | XMS_ITS | Encounter Summary ---
Author Organization [facility] Address [address] [place] [address] Care Team Providers Care Obgyn Hospitalist Physician Name Role Phone EloisedraganShital plunkett SAMUEL Primary Care Provider [phone] Reason for Visit * Reason Comments Post-OP Follow Up POV Umb Hernia f/u E D 04/26 * Follow Up (Routine) - Closed Specialty Diagnoses / Procedures Referred By Contjessi t Referred To Contact General Surgery Diagnoses Umbilical hernia without obstruction and without gangrene Mariela Lou MD [address] [place] [address] Referral ID Status Reason Start Date Expiration Date V isits Requested Visits Authorized [id number] Closed Specialty Services Required 2016 1 1 Encounter Details Date Type Department Care Team (Late st Contact Info) Description 04/30/2016 13:00 EDT Office Visit [facility] General Surgery - Main [place] [address] [place], [place] [address] Maegan Horton MD [address] [place] [phone] S/P umbilical hernia repair, follow-up exam (Primary Dx) Social History Tobacco Use Types [...] as of this encounter Progress Notes * Maegan Horton MD - 04/30/2016 1300 EDT Subjective: [place] presents to the clinic following 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 Eating a regular diet without difficulty. Bowel movements are normal. The patient is not having anypain. CC: pain abd. Objective: General: alert, cooperative and no distress Abdomen: soft, bowel sounds active, non-tender, no hernias Incision: healing well, no drainage, no erythema, no hernia, no seroma, no swelling, well approximated Assessment: Doing well postoperatively.The op note was given to the patient. Plan: 1. Continue any current medications. 2. Wound care discussed. 3. Pt is to increase activities as tolerated. May drive starting today. Return to light duty in 2 weeks. Return to full duty in 4 weeks. 4. Follow up with his PCP & with us as needed. F/U with her GI physician.No surgical issues. Abd binder. documented in this encounter Plan of Treatment Not on file documented as of this encounter Visit Diagnoses Diagnosis S/P umbilical hernia repair, follow-up exam- Primary Follow-up examination, following other surgery documented in this encounter Discontinued Medications Medication Sig Discontinue Reason Start Date End Da te DM/PSEUDOEPHED/ACETAMIN OPHEN (VICKS DAYQUIL ORAL) Take by mouth. Reported on 04/30/2016 04/30/2016 documented as of this encounter Historical Medications * This list may reflect changes made after this encounter. Medication Sig Dispensed Refills Start Date End Date traMADol (ULTRAM) 50 mg tablet Take 50 mg by mouth every 6 hours. Reported on 05/25/2016 added in this encounter Care Teams Obgyn Hospitalist Physician Relationship Specialty Start Date End Date Shital Brooke NP [facility] [address] [facility] [place] [address] PCP - General 02/26/16 02/26/20 documented as of this encounter
--- OUTSIDE RECORDS SUMMARY | 2023-10-06 17:06 | XMS_ITS | Encounter Summary ---
Author Organization [facility] Address [address] [place] [address] Care Team Providers Care Musical Engineer Name Role Phone Caleb Ballard RPA Primary Care Provider [phone] Reason for Visit * Reason Onset Date Comments Appointment Related 03/19/2020 Encounter Details Date Type Department Care Team (Late st Contact Info) Description 03/19/2020 Telephone [facility] Neurophysiology - [facility] [address] [place], [place] [id number] Norberto Daly MD Appointment Related Social History Tobacco Use Types [...] 19:23 EST documented as of this encounter Miscellaneous Notes * Telephone Encounter - Fatuma Quick - 03/19/2020 1140 EST Pt called to confirm tomorrows appointment, confirmed Pt thinks she hit no on conformation call She would like to KEEP the appt documented in this encounter Plan of Treatment Not on file documented as of this encounter Visit Diagnoses Not on filedocumented in this encounter Care Teams Musical Engineer Relationship Specialty Start Date End Date Caleb Ballard RPA [address] [place] [address] PCP - General 02/27/20 documented as of this encounter
--- OUTSIDE RECORDS SUMMARY | 2023-10-06 17:06 | XMS_ITS | Encounter Summary ---
Author Organization [facility] Address [facility] [address] [place] [address] Care Team Providers Care Electronic Typesetting Machine Operator Name Role Phone Shital Brooke APRN Primary Care Provider [phone] Encounter Details Date Type Department Care Team (Latest Contact Info) Description 07/29/2016 8:00 PM EDT Tech [place] [address] Eric Martinez MD [facility] [place] [address] Gastroesophageal reflux disease, esophagitis presence not specified; Jackhammer esophagus Social History Tobacco Use Types Packs/Day Years Used Date Smoking Tobacco: Every Day Cigarettes Sex and Gender Information Value Date Recorded Sex Assigned at Not on file Gender Identity Not on file Sexual Orientation Not on file documented as of this encounter Progress Notes * Eric Martinez MD - 07/29/2016 8:00 PM EDT HIGH-RESOLUTION ESOPHAGEAL MANOMETRY [place] [address] [facility] [address] : 1980 STUDY DATE: 07-29-2016 PROVIDER: Eric Martinez, [place] ([id number]) INDICATION GERD; preoperative evaluation METHODS Stationary esophageal manometry was performed with the ManoScan ESO version 3.0 in a supervised setting after verbal consent and after topical anesthesia to the nares. This system uses 36 individual circumferential solid state sensors spaced 1 cm apart. The outer diameter of the probe is 4.2 mm. Length, resting pressure, pressure inversion point (PIP), and relaxation of the lower esophageal sphincter (LES) was measured. The high pressure zone of the upper esophageal sphincter (UES) was measured. Water swallows were provided after a 7-le-6-minute accommodation period to assess LES function andfunction of the esophageal body. FINDINGS LES (lower esophageal sphincter) Distal border of LES identified at 40.2 cm. Proximal border of LES identified at 37.2 cm. Hiatal hernia present? No Basal pressure respiratory mean pressure 15 mmHg (normal = 15-34 mmHg). Residual mean pressure (integrated relaxation pressure - IRP) 7 mmHg (normal = <15 mmHg). BODY OF ESOPHAGUS Water Swallows: 10. Failed: 0%. Transmitted (peristaltic): 100%. Panesophageal pressurization: 0% Premature: 0% Rapid: 0% With large breaks: 0%. With small breaks: 0%. DCI (distal contractile integral): 4272 mmHg-cm-s (normal is 450 to 5000 mmHg-cm-s). Contractile front velocity: 3.1 cm/s (normal is <9.0 cm/s). Intrabolus pressure (average maximum): 7.4 mmHg (normal is <17.0 mmHg). Distal latency: 7.8 UES (upper esophageal sphincter) Distal border of UES identified at 18.9 cm and extended to 16.4 cm. UES basal pressure 81 mmHg (normal = 34-104 mmHg). Residual pressure 7.5 mmHg (normal = <12 mmHg). IMPRESSION 1. Normal LES resting pressure. 2. Normal LES relaxation (IRP, integrated relaxation pressure). 3. Normal UES resting pressure. 4. Normal UES relaxation. 5. Normal motility in the body of the esophagus. 6. No evidence of a hiatal hernia on this study. 7. Normal DCI (distal contractile integral). This is a measure of contractile vigor. However, one swallow was associated with an overly strong contraction (elevated DCI of 9751). This is consistent with the diagnosis of jackhammer esophagus. This can be found in some individuals without symptoms ofchest pain or dysphagia. 8. Normal intrabolus pressure. This is a measure of esophageal clearance. *Measurements and diagnostic criteria per [place] 3.0 Classification. Eric Martinez, PhD, MD plastics engineer, [employer] Chief, Section of Gastroenterology and Hepatology [facility] [place] [address] [place] [address] V: [phone] F: [phone] CC/EC: PCP documented in this encounter Plan of Treatment Not on file documented as of this encounter Visit Diagnoses Diagnosis Gastroesophageal reflux disease, esophagitis presence not specified Jackhammer esophagus documented in this encounter Care Teams Electronic Typesetting Machine Operator Relationship Specialty Start Date End Date Shiatl Brooke, JANET [address] [place] [address] PCP - General Family Medicine 07/20/16 12/04/17 documented as of this encounter
--- OUTSIDE RECORDS SUMMARY | 2023-10-06 17:06 | XMS_ITS | Encounter Summary ---
Author Organization [facility] [address] [place] [address] Care Team Providers Care Abstract Searcher Name Role Phone Braydon Casillas APRN Primary Care Provider [phone] Encounter Details Date Type Department Care Team (Latest Contact Info) Description 07/05/2015 - 07/05/2015 11:59 PM EDT Hospital Encounter [place] [address] Leonardo Burris APRN [facility] [place] [address] Discharge Disposition: Home Social History Tobacco Use [...] FILM LIBRARY STORAGE ONLY DX KNEE Routine 07/05/2015 12:00 AM EDT documented in this encounter Results * Film Library- Storage Only DX Knee (07/05/2015 12:00 AM EDT) Narrative [facility] - 12/05/2017 8:26 AM EDT This exam is for storage only and is auto-finalizing. Leonardo Burris APRN IMG FILM LIBRARY ORDERABLES Performing Organization Address City/State/[facility] Co de Phone Number [place], [place] documented in this encounter Visit Diagnoses Not on filedocumented in this encounter Care Teams Abstract Searcher Relationship Specialty Start Date End Date Braydon Casillas APRN PCP - General 08/15/12 11/09/15 documented as of this encounter
--- OUTSIDE RECORDS SUMMARY | 2023-10-06 17:06 | XMS_ITS | Encounter Summary ---
Author Organization [facility] Address [address] [place] [address] Care Team Providers Care Mechanics Supervisor Name Role Phone Caleb Ballard Augustine BERGER Primary Care Provider [phone] Reason for Visit * Reason Comments Follow-up Encounter Details Date Type Department Care Team (Late st Contact Info) Description 03/26/2020 9:45 EST Telemedicine [facility] Ophthalmology - Main [place] [address] [place] [address], [place] [id number] Jayden Roger MD [address] [facility], [address] [place] [address] Visual field defect (Primary Dx) Social History Tobacco Use Types [...] 19:23 EST documented as of this encounter Patient Instructions * Patient Instructions* Jayden Roger MD - 03/26/2020 9:45 EST To Retina for ? Retinal cause of eye pain and field defect as possibly suggested by ERG Patient inquired about patient assistance for transportation to [facility] documented in this encounter Progress Notes * Jayden Roger MD - 03/26/2020 0945 EST DIVISION OF OPHTHALMOLOGY [facility] NEURO-OPHTHALMOLOGY TELEMEDICINE FOLLOW-UP 03/26/2020 Due to the priorities of social distancing and minimization of infectious exposure during the COVID-19 pandemic, this encounter was completed via telephone-based visit, with on-site follow up at a later date, as deemed necessary. The clinical encounter was conducted virtually using HIPAA-compliant videoconferencing technology, [employer]. At the time of the encounter, the patient was located at their [place] residence of record, please refer to the EMR for address details. Jayden Roger MD, the provider, was located at home [facility] . Verbal informed consent for telemedicine services was obtained by the clinicstaff at the time of scheduling. The following technical issues were present: None I spent 10 minutes in conversation and discussion via the video link, with more than 50% of that time used for counseling and coordination of care. Ms. Sprague was contacted for follow-up neuro-ophthalmological evaluation because of the history ofleft eye pain and a visual field defect. To recall this is a 39-year-old woman who was previously evaluated by my colleague Dr. Dowell due tovisual field defect in the left eye as well as persistent light sensitivity and chronic eye pain headache. The patient was evaluated by me in February 29, 2020 after having been seen via telemedicine link in the spring 2019 with recommendations to pursue the previously formulated plan from the time of her visit with Dr. Lizarraga. In part due to restrictions about Covid as well as the patient's own social situation, the patient did not have the electrophysiologic test and as such when seen by me onJanuary 15, in the context of persisting symptoms, I recommended and ordered the same. The patient was contacted today to review the results and discuss additional steps. In the meantime since the patient was last evaluated, she is discovered that by patching her left eye she can reduce her headaches and decrease her eye pain. She denies new difficulties in the interval. On March 20, 2020, the patient underwent visual evoked potential and electroretinogram. The visual evoked potentials were entirely normal. The electroretinogram suggested possible borderline signalfrom the left eye on the 30 Hz flicker that was not confirmed on other testing. Explained to the patient that this certainly could reflect artifact, however, given that this was seen in the symptomatic eye, I think it reasonable for the patient to have a consultation with my colleagues in the retina clinic to look a rash to note etiology of the patient's symptoms. FORMULATION: This is a 39-year-old woman who was contacted to review electrophysiology due to her persistent symptoms of left-sided eye pain and persistent field defect in the same eye. Mild the finding on the full-field ERG may be artifact, the fact that this is occurring in the symptomatic chronic Nunez's is to look into this further. I recommended the patient have a consultation with my colleagues in retina to look for a retinal or ocular cause, to include posterior scleritis. The patient expressed concerns that the symptoms may be multiple sclerosis related. There are no findings on her MRI from 2014 to suggest a structural cause for inflammation to support a diagnosis of multiple sclerosis, more importantly, the visual evoked potential be entirely normal is most sensitive test to exclude optic neuritis (related to multiple sclerosis) as a cause for the patient's symptoms. I have left things open ended with me for the time being, I look forward to my read that colleagues input. Please do not hesitate to contact me with any further questions or concerns. Sincerely, Jayden Roger MD Diplomate, the [place] [employer] duck farmer Department of Ophthalmology documented in this encounter Plan of Treatment Not on file documented as of this encounter Visit Diagnoses Diagnosis Visual field defect- Primary Visual field defect, unspecified documented in this encounter Care Teams Mechanics Supervisor Relationship Specialty Start Date End Date Caleb Ballard RPA [address] [place] [id number] PCP - General 02/27/20 documented as of this encounter
--- OUTSIDE RECORDS SUMMARY | 2023-10-06 17:06 | XMS_ITS | Encounter Summary ---
Author Organization [facility] Address [address] [place] [address] Care Team Providers Care Pocket Closer Name Role Phone Edwardo Shital BAKER Primary Care Provider Caleb Ballard RPA Primary Care Provider [phone] Encounter Details Date Type Department Care Team (Late st Contact Info) Description 02/18/2019 Lab Requisition [facility] Pathology & Laboratory Medicine - [address] [address] Unknown, Provider, Social History Tobacco Use Types Packs/Day Years [...] Comments CHLAMYDIA/N. GONORRHOEAE AMPLIFIED NUCLEIC ACID Routine 02/17/2019 11:05 EST documented in this encounter Results * CHLAMYDIA/N. GONORRHOEAE AMPLIFIED RNA (02/17/2019 11:05 EST) Neisseria gonorrhoeae Result Negative Negative 02/19/2019 13:10 EST [facility] Chlamydia trachomatis Result Negative Negative 02/19/2019 13:10 EST [facility] Swab SPECIMEN FROM UTERINE CERVIX / Unknown 02/17/2019 11:05 EST 02/18/2019 16:17 EST Provider Unknown MICROBIOLOGY - GENER AL ORDERABLES Performing Organization Address City/State/[facility] Co de Phone Number [facility] [address] [place] [address] documented in this encounter Visit Diagnoses Not on filedocumented in this encounter Care Teams Pocket Closer Relationship Specialty Start Date End Date Shital Brooke NP [address] [place], [place] [id number] PCP - General 02/26/16 02/26/20 Caleb Ballard RPA [address] [address] PCP - General 02/27/20 documented as of this encounter
--- OUTSIDE RECORDS SUMMARY | 2023-10-06 17:06 | XMS_ITS | Encounter Summary ---
Author Organization [facility] Address [facility] [place] [address] Care Team Providers Care Oracle Reports Developer Name Role Phone Yefri Hare MD Primary Care Provider [phone] Encounter Details Date Type Department Care Team (Latest Contact Info) Description 03/20/2016 - 03/20/2016 11:59 PM EST Hospital Encounter [place] [address] Leonardo Burris APRN [facility] [place] [id number] Discharge Disposition: Home Social History Tobacco Use [...] Diagnosis Comments FILM LIBRARY STORAGE ONLY DX SHOULDER Routine 03/20/2016 12:00 AM EST documented in this encounter Results * Film Library- Storage Only DX Shoulder (03/20/2016 12:00 AM EST) Narrative [facility] - 12/05/2017 8:38 AM EDT This exam is for storage only and is auto-finalizing. Leonardo Burris FACILITIES SPECIALIST IMG FILM LIBRARY ORDERABLES Performing Organization Address City/State/[facility] Co de Phone Number [place], [place] documented in this encounter Visit Diagnoses Not on filedocumented in this encounter Care Teams Oracle Reports Developer Relationship Specialty Start Date End Date Yefri Hare MD [address] [place] [address] PCP - General Family Medicine 11/10/15 07/19/16 documented as of this encounter
--- OUTSIDE RECORDS SUMMARY | 2023-10-06 17:06 | XMS_ITS | Encounter Summary ---
Author Organization [facility] Address [address] [place] [address] Care Team Providers Care Splash Line Operator Name Role Phone Caleb Ballard RPA Primary Care Provider [phone] Reason for Visit * Reason Onset Date Comments Appointment Related 05/07/2020 Encounter Details Date Type Department Care Team (Late st Contact Info) Description 05/07/2020 Telephone [facility] Ophthalmology - [address] [phone] Yoni Vega MD [address] [facility], [address] [place] [address] Appointment Related Social History Tobacco Use Types [...] encounter Miscellaneous Notes * Telephone Encounter - Divine Villa - 05/07/2020 1115 EDT LM Patient did not show today for a 1-2 week follow up (UNDILATED) she is overdue for this apt as her visit with Dr Vega was 04/16/20 She cancelled due to illness on 04/30 and we rescheduled to 05/07, called to check in and see if she is on her way or plans to come to today's appt? Pass call to Divine to discuss and schedule Divine Villa 05/07/2020 11:16 documented in this encounter Plan of Treatment Not on file documented as of this encounter Visit Diagnoses Not on filedocumented in this encounter Care Teams Splash Line Operator Relationship Specialty Start Date End Date Caleb Ballard RPA [address] [place] [address] PCP - General 02/27/20 documented as of this encounter
--- OUTSIDE RECORDS SUMMARY | 2023-10-06 17:06 | XMS_ITS | Encounter Summary ---
Author Organization [facility] Address [facility] [place] [address] Care Team Providers Care Clean Out Driller Helper Name Role Phone Yefri Hare MD Primary Care Provider [phone] Reason for Visit * Reason Onset Date Comments Other 07/06/2016 Encounter Details Date Type Department Care Team (Late st Contact Info) Description 07/06/2016 [place] [phone] Emmanuel Morel RN Other Social History Tobacco Use Types Packs/Day Years Used Date Smoking Tobacco: Every Day Cigarettes Sex and Gender Information Value Date Recorded Sex Assigned at Not on file Gender Identity Not on file Sexual Orientation Not on file documented as of this encounter Miscellaneous Notes * Telephone Encounter - Hodan Singleton RN - 07/07/2016 3:50 PM EDT Patient calls the office leaving a message on the RN voicemail stating, I spoke with someone about increasing the dose of my medication I can not pronounce. Returned call to patient. Per Dr. John Garner, SLAB DEPILER OPERATOR: Ok, 4 days is really not enough time. Really should wait 2-3 weeks. But she can go to 25mg qhs. Patient verbalized understanding and stated that she would try to give it a little while longer. * Telephone Encounter - Emmanuel Morel RN - 07/06/2016 9:04 AM EDT Patient calls with update. Has been taking desipramine 10 mg nightly x 4 days. Has not noticed any improvement in symptoms. Denies any side effects. Would like to try increasing dose. documented in this encounter Plan of Treatment Not on file documented as of this encounter Visit Diagnoses Not on filedocumented in this encounter Care Teams Clean Out Driller Helper Relationship Specialty Start Date End Date Yefri Hare MD [address] [place] [address] PCP - General Family Medicine 11/10/15 07/19/16 documented as of this encounter
--- OUTSIDE RECORDS SUMMARY | 2023-10-06 17:06 | XMS_ITS | Encounter Summary ---
Author Organization [facility] Address [address] [place] [address] Care Team Providers Care Registered Phlebotomist Part Time Name Role Phone Shital Brooke IT TEACHER Primary Care Provider [phone] Reason for Visit * Reason Onset Date Comments Medication Management 04/21/2016 Encounter Details Date Type Department Care Team (Late st Contact Info) Description 04/21/2016 Telephone [facility] General Surgery - [address] [address] Maegan Horton MD [address] [place] [phone] Medication Management Social History Tobacco Use Types Packs/Day Years [...] Telephone Encounter - Ekaterina Hunter RN - 04/21/2016 1353 EST Spoke with patient. S/p simple repair of umbilical hernia with 1 interrupted Ethibond suture on 04/14/[address] Horton. She calls today regarding getting a different pain medication than the oxycodone. She states that the oxycodone made her sick to her stomach and she had 10 pills left and took them to a pharmacy for appropriate disposal. Advised patient that she would need to be seen by surgeon for more pain medication. Advised her that she is 1 week out from surgery and her pain should be getting better. Encouraged rest, ibuprofen/tylenol for pain management. Advised her to call us back if pain not getting better and can schedule apt with surgeon. Patient agrees with plan. Electronically signed by Ekaterina Hunter RN CBN * Telephone Encounter - Divine Ureña - 04/21/2016 1144 EST Patient calling oxyCODONE making her vomiting. Wondering if she could get a different medication for Tramadol. Would like called into [facility] in [facility]. documented in this encounter Plan of Treatment Not on file documented as of this encounter Visit Diagnoses Not on filedocumented in this encounter Care Teams Registered Phlebotomist Part Time Relationship Specialty Start Date End Date Shital Brooke [place] [address] [place] [address] PCP - General 02/26/16 02/26/20 documented as of this encounter
--- OUTSIDE RECORDS SUMMARY | 2023-10-06 17:06 | XMS_ITS | Encounter Summary ---
Author Organization [facility] Address [address] [place] [address] Care Team Providers Care Boat Carpenter Name Role Phone Shital Brooke UI PROGRAMMER Primary Care Provider [phone] Encounter Details Date Type Department Care Team (Late st Contact Info) Description 12/28/2019 Results Only [facility] Lab - Main [place] [address] [place] [address] Unknown, Provider, Social History Tobacco Use Types [...] Priority Date/Time Associated Diagnosis Comments SURGICAL PATHOLOGY Routine 12/28/2019 documented in this encounter Results * SURGICAL PATHOLOGY (12/28/2019) 12/28/2019 12/31/2019 8:5 4 EST Narrative [facility] - 01/01/2020 15:01 EST ----- ------- Name: RAUL SPRAGUE ?: [birth year] ?Age/Sex: 39/F ?Unit#: [id number] ? Loc: LAB.POP ? Status: REG REF ?? Reg Date: 12/28/19 ? Pt.Phone Number: ? ----- ------- Specimen: [id number] ? STATUS: SOUT ?Spec Date:12/28/19 ? Physician Copies: ?NONE,NONE ? Tissues: A ?? Endoscopy specimen (DUODENAL BX) ? JAYLEN YOUSSEF ? B ?? Endoscopy specimen (SHALLOW GASTRIC ULCER BX) ?CANDICE FLANAGAN ?? CPT: 28269 ?? Units: ??2 ?FINAL DIAGNOSIS ? A. DUODENUM, BIOPSY: ? - Duodenal mucosa with no significant diagnostic abnormality. ? B. STOMACH, ULCER, BIOPSY: ? - Antral mucosa with mild active ? inflammation, foveolar metaplasia and mild reactive ? epithelial atypia; features consistent with nearby ulceration. ? - Negative for H. pylori on H E stains. ? - Negative for dysplasia and malignancy. ----- ------- ?COMMENT ? [id number] ? GROSS DESCRIPTION ? Received in formalin in two containers, each labeled with proper patient ? identification (initials C,R). ? A. ??Labeled duodenal biopsy are two fragments of stanley tissue measuring 0.3 cm ? and 0.4 cm in greatest dimension. ??The specimens are submitted in A. ? B. ??Labeled shallow gastric ulcer biopsy is a single fragment of stanley tissue ? (0.2 x 0.2 x 0.2 cm). ??The specimen is submitted in B. ??/KD Signed ____(signature on file)____ Wilfrido Kam 01/01/20 ? By the signature above, the attending physician certifies that he/she has personally conducted a gross and/or microscopic examination of the described specimens and rendered or confirmed the above diagnosis. Test Performed by [facility], [address] [place] [address] Stage Electrician: Padma Strickland MD PHD ----- ------- Provider Unknown PATHOLOGY ORDERABLES [facility] [address] [place] [address] documented in this encounter Visit Diagnoses Not on filedocumented in this encounter Care Teams Boat Carpenter Relationship Specialty Start Date End Date Shital Brooke NP [address] [place] [address] PCP - General 02/26/16 02/26/20 documented as of this encounter
--- OUTSIDE RECORDS SUMMARY | 2023-10-06 17:06 | XMS_ITS | Encounter Summary ---
Author Organization [facility] [address] [place] [address] Care Team Providers Care Front Office Associate Name Role Phone Braydon Casillas APRN Primary Care Provider [phone] Encounter Details Date Type Department Care Team (Latest Contact Info) Description 06/26/2015 - 06/26/2015 11:59 PM EDT Hospital Encounter [place] [address] Leonardo Burris [place] [facility] [place] [address] Discharge Disposition: Home Social History Tobacco Use [...] FILM LIBRARY STORAGE ONLY DX KNEE Routine 06/26/2015 12:00 AM EDT documented in this encounter Results * Film Library- Storage Only DX Knee (06/26/2015 12:00 AM EDT) Narrative [facility] - 12/05/2017 8:23 AM EDT This exam is for storage only and is auto-finalizing. Leonardo Burris APRN IMG FILM LIBRARY ORDERABLES Performing Organization Address City/State/[facility] Co de Phone Number [place], [place] documented in this encounter Visit Diagnoses Not on filedocumented in this encounter Care Teams Front Office Associate Relationship Specialty Start Date End Date Braydon Casillas APRN PCP - General 08/15/12 11/09/15 documented as of this encounter
--- OUTSIDE RECORDS SUMMARY | 2023-10-06 17:06 | XMS_ITS | Encounter Summary ---
Author Organization [facility] [place] [address] Care Team Providers Care Rodeo Clown Name Role Phone Yefri Hare MD Primary Care Provider [phone] Reason for Referral * Consultation (Routine) - Closed Specialty Diagnoses / Procedures Referred By Contac t Referred To Contact General Surgery Diagnoses Gastroesophageal reflux disease, esophagitis presence not specified John Garner APRN [facility] [place] [address] [facility] [address] [place] [phone] Referral ID Status Reason Start Date Expiration Date V isits Requested Visits Authorized [id number] Closed Consult, Test & Treat 07/01/2016 07/01/2017 1 1 Reason for Visit * Reason Comments GI Problem * Consultation (Routine) - Closed Specialty Diagnoses / Procedures Referred By Contac t Referred To Contact Gastroenterology Diagnoses IBS; GERD Yefri Hare MD [address] [place] [address] [place] [address] [facility] [address] [place] [id number] Referral ID Status Reason Start Date Expiration Date V isits Requested Visits Authorized [id number] Closed Consult, Test & Treat [facility] PCP Updated and/or Approved 11/10/2015 11/09/2016 1 1 Encounter Details Date Type Department Care Team (Latest Contact Info) Description 07/01/2016 8:00 AM EDT Office Visit [place] [address] John Garner APRN [facility] [place] [address] Gastroesophageal reflux disease, esophagitis presence not specified Social History Tobacco Use Types Packs/Day Years Used Date Smoking Tobacco: Every Day Cigarettes Sex and Gender Information Value Date Recorded Sex Assigned at Not on file Gender Identity Not on file Sexual Orientation Not on file documented as of this encounter Last Filed Vital Signs Vital Sign Reading Time Taken Comments Blood Pressure 125/97 07/01/2016 7:47 AM EDT Pulse 100 07/01/2016 7:47 AM EDT Temperature - - Respiratory Rate - - Oxygen Saturation - - Inhaled Oxygen Concentration - - Weight 71.8 kg (158 lb 3.2 oz) 07/01/2016 7:47 A M EDT Height 147.3 cm (4' 10) 07/01/2016 7:47 AM EDT Body Mass Index 33.06 07/01/2016 7:47 AM EDT documented in this encounter Progress Notes * John Garner RN - 07/01/2016 8:00 AM EDT Section of Gastroenterology and Hepatology [address] [place] [id number] .Ruby Sprague : 1980 Patient is here for further evaluation of gastrointestinal symptoms at the request of Yefri Hare MD. HPI: Long hx of gerd. Daily substernal burning. As well as regurgitation and acid taste. it macdonald my ears. Frequently awakes during the night with sx. No dysphagia, odynophagia, ent concerns. When sx are bad can have n/v. Intermittent chest pain associated with reflux sx. Frequent stomach burning and pain. Early satiety. Significant amount of gas and bloating. Post-prandial heaviness, fullness, distention. Weight fluctuates about 5 pounds. Intentionally trying to lose weight. Reviewed diet. Salads. Decreasing junk food. No coffee. No soda. Supper: meat/veg. Does not eat late. No food allergies. No chronic nsaids. She notes that the flexeril she is using for her back sometimes helps her stomach. I get spasms inmy stomach. Aggravating foods: coffee, chocolate, some vegetables, citrus. But as time goes on more foods bother her. Has tried nexium bid, prilosec bid, dexilant bid all with no relief. No relief from pepcid, zantac and carafate. Hx of ibs-c. Can go several weeks without a stool. miralax is helpful. If she remains active she can have 1-2 stools per week. Sometimes stools are hard and she has to strain. Does not feel empty. No blood in stool. Tried manydiet changes and adding fiber with no change in sx. 2014 normal colonoscopy. Associated lower abdominal cramping and urgency. Sx can improve with emptying. No fecal seepage or incontinence. Social History Social History ??? Marital status: Spouse name: N/A ??? Number of children: N/A ??? Years of education: N/A Occupational History ??? Not on file. Social History Main Topics ??? Smoking status: Current Every Day Smoker Packs/day: 0.50 ??? Smokeless tobacco: Not on file ??? Alcohol use Not on file ??? Drug use: Not on file ??? Sexual activity: Not on file Other Topics Concern ??? Not on file Social History Narrative ??? No narrative on file Medical History: asthma, htn, vertigo Surgical History: umbilical hernia repair; bone spur removed right foot Family History: grandfather: colon cancer No Known Allergies Current Outpatient Prescriptions: ??? amitriptyline (ELAVIL) 100 mg Tablet, Take 100 mg by mouth Daily., Disp: , Rfl: ??? lisinopril (PRINIVIL;ZESTRIL) 10 mg Tablet, Take 10 mg by mouth., Disp: , Rfl: ??? meclizine (ANTIVERT) 25 mg Tablet, Take 25 mg by mouth Three times a day., Disp: , Rfl: ??? cyclobenzaprine (FLEXERIL) 10 mg Tablet, TAKE ONE TABLET BY MOUTH AT BEDTIME NEEDED, Disp: ,Rfl: 1 ??? ibuprofen (ADVIL;MOTRIN) 800 mg tablet, 800MG = 1 Tablet(s), PO, Three times daily, Disp: , Rfl: ??? OXYcodone-acetaminophen (PERCOCET) 5-325 mg per tablet, 1 Tablet(s), PO, Q6H,PRN (Patient not taking: No sig reported), Disp: , Rfl: Review of Systems - Negative except General: Cardiac: Resp: GI: see above : MS: Neuro: Skin: Psyche: Sleep: Endo: Physical Exam: soft, tender throughout, no mass or organomegaly Impression: 1. Gerd: discussed medical and surgical tx. Pt would like to pursue surgery. Schedule upper endoscopy, moody off meds and hrem. Refer to general surgery. Trial of protonix 40mg qd, 30 minutes before breakfast. Can increase to bid. 2. IBS: low fodmap diet; kefir; miralax 1-2 capfuls qd. Desipramine 10mg qhs. May need to consider hbt. 3. Pelvic floor dysfunction: am routine; relaxation; foot stool or squatty potty. May need to consider PT. 4. Gif in 2-3 months. I spent a total of 55 minutes face to face with this patient; 40 minutes were spent counseling the patient in the medical problems described above. Sincerely, John Garner NP Section of Gastroenterology and Hepatology documented in this encounter Plan of Treatment Scheduled Orders Name Type Priority Associated Diagnoses Orde r Schedule UPPER GI ENDOSCOPY Procedures Routine Gastroesophageal reflux disease, esophagitis presence not specified Ordered: 07/01/2016 Scheduled Referrals Name Type Priority Associated Diagnoses Orde r Schedule Referral to General Surgery Outpatient Referral Routine Gastroesophageal reflux disease, esophagitis presence not specified Ordered: 07/01/2016 documented as of this encounter Visit Diagnoses Diagnosis Gastroesophageal reflux disease, esophagitis presence not specified documented in this encounter Care Teams Rodeo Clown Relationship Specialty Start Date End Date Yefri Hare MD [facility] [place] [id number] PCP - General Family Medicine 11/10/15 07/19/16 documented as of this encounter
--- OUTSIDE RECORDS SUMMARY | 2023-10-06 17:06 | XMS_ITS | Encounter Summary ---
Author Organization [facility] Address [facility] [place] [id number] Care Team Providers Care Crime Prevention Worker Name Role Phone Edwardo Shital JANET Primary Care Provider [phone] Reason for Visit * Diagnostic Test (Routine) - Canceled Specialty Diagnoses / Procedures Referred By Dayan parker Referred To Contact Gastroenterology Diagnoses Gastroesophageal reflux disease, esophagitis presence not specified GERD Procedures Manometry Esophageal HREM - sched by John Manjarrez APRN [facility] [place] [address] [facility] [place] [address] [place] [address] Referral ID Status Reason Start Date Expiration Date Visits Requested Visits Authorized [id number] Canceled Specialty Service Requested 07/01/2016 07/01/2017 1 1 Encounter Details Date Type Department Care Team (Latest Contact Info) Description 07/29/2016 3:00 PM EDT Procedure visit [place] [address] Gastroesophageal reflux disease, esophagitis presence not specified Social History Tobacco Use Types Packs/Day Years Used Date Smoking Tobacco: Every Day Cigarettes Sex and Gender Information Value Date Recorded Sex Assigned at Not on file Gender Identity Not on file Sexual Orientation Not on file documented as of this encounter Progress Notes * Brook Maddox RN - 07/29/2016 3:00 PM EDT HREM catheter placed via right naris without difficulty. Patient tolerated procedure well. documented in this encounter Plan of Treatment Not on file documented as of this encounter Visit Diagnoses Diagnosis Gastroesophageal reflux disease, esophagitis presence not specified documented in this encounter Care Teams Crime Prevention Worker Relationship Specialty Start Date End Date Shital Brooke, JANET [address] [place] [address] PCP - General Family Medicine 07/20/16 12/04/17 documented as of this encounter
--- OUTSIDE RECORDS SUMMARY | 2023-10-06 17:06 | XMS_ITS | Referral Summary ---
Author Organization [facility] Address [address] [place] [address] Care Team Providers Care Deputy Sheriff Building Guard Name Role Phone Naty Ballardrick Augustine [facility] Primary Care Provider [phone] Allergies No known active allergies Medications Medication Sig Dispensed Refills Start Date End Date Status amitriptyline (ELAVIL) 100 mg tablet Take 100 mg by mouth at bedtime as needed for Sleep. Reported on 03/08/2016 Active meclizine (ANTIVERT) 25 mg tabletIndications:pramod tigo Take 25 mg by mouth 3 times daily as needed. Active lisinopril (PRINIVIL, ZESTRIL) 10 mg tablet Take 10 mg by mouth daily. Active oxyCODONE (ROXICODONE) 5 mg immediate release tablet Take 1-2 Tabs by mouth every 6 hours as needed for Pain. Daily Max: 40 mg 20 Tab 2016 Active traMADol (ULTRAM) 50 mg tablet Take 50 mg by mouth every 6 hours. Reported on 05/25/2016 Active dicyclomine (BENTYL) 10 mg capsule Take 1 Cap by mouth 4 times daily (before meals and at bedtime). 15 Cap 05/25/2016 Active tiZANidine (ZANAFLEX) 2 mg tablet Take 2 mg by mouth daily. Active citalopram (CELEXA) 20 mg tablet Take 20 mg by mouth at bedtime. Active linaCLOtide (LINZESS) 145 mcg capsule Take 145 mcg by mouth daily. 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 Social History Tobacco Use Types Packs/Day Years [...] 19:23 EST Sexual Orientation Not on file Last Filed Vital Signs Vital Sign Reading Time Taken Comments Blood Pressure 142/81 05/25/2016 1916 EDT Pulse 86 05/25/2016 1916 EDT Temperature 37.1 ??C (98.8 ??F) 05/25/2016 1139 EDT Respiratory Rate 16 05/25/2016 1916 EDT Oxygen Saturation 98% 05/25/2016 1916 EDT Inhaled Oxygen Concentration - - Weight 63.5 kg (140 lb) 05/25/2016 1139 EDT Height 147.3 cm (4' 10) 05/25/2016 1139 EDT Body Mass Index 29.26 05/25/2016 1139 EDT Plan of Treatment Not on file Procedures Procedure Name Priority Date/Time Associated Diagnosis Comments HEPATITIS C AB W REFLEX TO HCV RNA BY PCR Routine 05/29/2021 10:14 EDT from Last 3 Months or Most Recently Relevant to Health Maintenance Results * HEPATITIS C AB W REFLEX TO HCV RNA BY PCR (05/29/2021 10:14 EDT) Hep C Antibody Negative Negative 06/01/2021 10:07 EDT [facility] Blood VENOUS BLOOD / Unknown 05/29/2021 10:14 EDT 05/30/2021 22:05 EDT Provider Outr Resulting Lab CHEMISTRY & BLOOD GAS ORDERABLES [facility] [address] [place] [address] from Last 3 Months or Most Recently Relevant to Health Maintenance [address] [place] [id number] Ruby Sprague Personal/Famil y Self [address] [place] [address] [place] [address] Ruby Sprague Personal/Famil y Self [address] [place] [address] [place] [address] Ruby Sprague Personal/Famil y Self [address] [place] [address] [place] [address] Carmen Spragueca L Personal/Famil y Self [address] [place] [address] [place] [address] Ruby Sprague Personal/Famil y Self [address] [place] [address] [place] [address] Ruby Sprague Personal/Famil y Self [address] [place] [address] [place] [address] Carmen Spragueca Benny Personal/Famil y Self [address] [place] [address] [place] [address] Care Teams Deputy Sheriff Building Guard Relationship Specialty Start Date End Date Caleb Ballard RPA [address] [facility] [address] [place] [address] PCP - General 02/27/20
--- OUTSIDE RECORDS SUMMARY | 2023-10-06 17:06 | XMS_ITS | Encounter Summary ---
Author Organization [facility] Address [address] [place] [address] Care Team Providers Care Transmission Tester Name Role Phone Shital Brooke CHINCHILLA FARMER Primary Care Provider [phone] Reason for Visit * Reason Onset Date Comments Provider Referred 02/21/2020 Encounter Details Date Type Department Care Team (Late st Contact Info) Description 02/21/2020 Telephone [facility] Ophthalmology - [address] [address] Jayden Roger MD [address] [facility], [address] [place] [address] Provider Referred Social History Tobacco Use Types Packs/Day Years [...] encounter Miscellaneous Notes * Telephone Encounter - Corinne Strickland - 02/25/2020 1536 EST PT scheduled 02/28 * Telephone Encounter - Corinne Strickland - 02/25/2020 1353 EST Tried calling patient again. Unable to leave message * Telephone Encounter - Corinne Strickland - 02/22/2020 1345 EST Unable to leave message on either phone * Telephone Encounter - Rommel Ashraf RN - 02/22/[address] Meron steinbergay to see next week. Dr. Lizarraga is out. Gladis to call and schedule. Rommel Gordillo RN 02/22/2020 8:39 * Telephone Encounter - Rommel Ashraf RN - 02/21/[address] Lizarraga. He would like Dr Roger to review. 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 Will fax exam notes to [facility]. documented in this encounter Plan of Treatment Not on file documented as of this encounter Visit Diagnoses Not on filedocumented in this encounter Care Teams Transmission Tester Relationship Specialty Start Date End Date [place] [address] PCP - General 02/26/16 02/26/20 documented as of this encounter
--- OUTSIDE RECORDS SUMMARY | 2023-10-06 17:06 | XMS_ITS | Encounter Summary ---
Author Organization [facility] Address [address] [place] [address] Care Team Providers Care Softwood Faller Name Role Phone Caleb Ballard RPA Primary Care Provider [phone] Encounter Details Date Type Department Care Team (Latest Contact Info) Description 02/09/2021 Lab Requisition [facility] Pathology & Laboratory Medicine - [facility] [address] [place] [address] Caleb Ballard, RPA [address] [place] [address] Encounter for general adult medical examination without abnormal findings; Encounter for screening for malignant neoplasm of cervix; Encounter for screening for human papillomavirus (HPV) Social History Tobacco Use Types Packs/Day Years [...] Procedure Name Priority Date/Time Associated Diagnosis Comments PAP TEST Today 02/04/2021 14:24 EST Encounter for general adult medical examination without abnormal findings Encounter for screening for malignant neoplasm of cervix Encounter for screening for human papillomavirus (HPV) HPV DNA DETECTION WITH GENOTYPING, PCR Today 02/04/2021 14:24 EST Encounter for general adult medical examination without abnormal findings Encounter for screening for malignant neoplasm of cervix Encounter for screening for human papillomavirus (HPV) documented in this encounter Results * HUMAN PAPILLOMAVIRUS (HPV) DETECTION-HIGH RISK TYPES (02/04/2021 14:24 EST) HPV other High Risk types, PCR Negative Negative 02/19/2021 15:15 [facility] Comment:No E6 or E7 mRNA is detected from HPV types 16,18,31,33,35,39,45,51,52,56,58,59,66, and 68 by lawn mower mechanic mediated amplification. Papanicolaou smear specimen (specimen) CERVIX UTERI STRUCTURE / Unknown 02/04/2021 14:24 EST 02/17/2021 11:33 EST Caleb Ballard [facility] MICRO[facility]OLOG[facility] - [facility] ORDERABLES [facility] [address] [place] [address] * PAP TEST (02/04/2021 14:24 EST) Specimens A. Cervix and/or Endocervix , ThinPrep Imaging System with Manual Evaluation 02/19/2021 15:15 [facility] Specimen Adequacy Satisfactory for Evaluation - transformation zone component present 02/19/2021 15:15 [facility] General Categorization Negative for intraepithelial lesion or malignancy 02/19/2021 15:15 [facility] Attestation . 02/19/2021 15:15 [facility] at 1515 Clinical History See below 02/19/19 15:15 [facility] HPV The result for the Human Papillomavirus (HPV) Detection-High Risk Types is Negative. No E6 or E7 mRNA is detected from HPV types 16,18,31,33,35,39 ,45,51,52,56,58,5 9,66, and 68 by lawn mower mechanic mediated amplification.Eugenia ting was performed on specimen [id number] and was resulted on 02/19/2021 0708 EST by CHERIE, LAB INSTRUMENT RESULTS IN 02/19/2021 15:15 EST [facility] Performing Lab [facility] 02/19/2021 15:15 EST [facility] Scanned Images 02/19/2021 15:15 EST [facility] Papanicolaou smear specimen (specimen) CERVIX UTERI STRUCTURE / Unknown 02/04/2021 14:24 EST 02/09/2021 15:20 EST Caleb Ballard RPA PATHOLOGY ORDERAB LES [facility] [address] [place] [address] documented in this encounter Visit Diagnoses Diagnosis Encounter for general adult medical examination without abnormal findings Unspecified general medical examination Encounter for screening for malignant neoplasm of cervix Screening for malignant neoplasm of the cervix Encounter for screening for human papillomavirus (HPV) Special screening examination for human papillomavirus (HPV) documented in this encounter Care Teams Softwood Faller Relationship Specialty Start Date End Date Caleb Ballard RPA [address] [place] [address] PCP - General 02/27/20 documented as of this encounter
--- OUTSIDE RECORDS SUMMARY | 2023-10-06 17:06 | XMS_ITS | Encounter Summary ---
Author Organization [facility] Address [address] [place] [address] Care Team Providers Care Malted Milk Supervisor Name Role Phone Elio Caleb Augustine BERGER Primary Care Provider [phone] [phone] Reason for Referral * Office Procedure (Routine) - Specialty Report Received Specialty Diagnoses / Procedures Referred By Dayan parker Referred To Contact Neurology Diagnoses Visual field defect Procedures VISUAL EVOKED POTENTIAL (VEP) Jayden Roger MD [address] [place] [phone] [facility] Neu[facility]usc [facility] Clin Neurophys [address] [place] [phone] Referral ID Status Reason Start Date Expiration Date V isits Requested Visits Authorized [id number] Specialty Report Received 02/29/2020 1 1 * Office Procedure (Routine) - Specialty Report Received Specialty Diagnoses / Procedures Referred By Dayan parker Referred To Contact Neurology Diagnoses Visual field defect Procedures ELECTRORETINOGRAM (ERG) Jayden Roger MD [address] [address] [facility] Clin Neurophys [address] [place] [address] Referral ID Status Reason Start Date Expiration Date V isits Requested Visits Authorized [id number] Specialty Report Received 02/29/2020 1 1 Reason for Visit * Office Procedure (Routine) - Specialty Report Received Specialty Diagnoses / Procedures Referred By Dayan parker Referred To Contact Neurology Diagnoses Visual field defect Procedures ELECTRORETINOGRAM (ERG) Jayden Roger MD [address] [place] [address], [address] [place] [address] [facility] Neuromusc [facility] Clin Neurophys [address] [place] [phone] Referral ID Status Reason Start Date Expiration Date V isits Requested Visits Authorized [id number] Specialty Report Received 02/29/2020 1 1 Encounter Details Date Type Department Care Team (Latest Contact Info) Description 03/20/2020 12:28 EST - 03/20/2020 23:59 EST Hospital Encounter [facility] [place] [address] Norberto Daly MD Visual field defect; Decreased peripheral vision of left eye; Pain of left eye Discharge Disposition: Home or Self Care Social [...] 19:23 EST documented as of this encounter Medications at Time of Discharge Medication Sig Dispensed Refills Start Date End Date amitriptyline (ELAVIL) 100 mg tablet Take 100 mg by mouth at bedtime as needed for Sleep. Reported on 03/08/2016 citalopram (CELEXA) 20 mg tablet Take 20 mg by mouth at bedtime. dicyclomine (BENTYL) 10 mg capsule Take 1 Cap by mouth 4 times daily (before meals and at bedtime). 15 Cap 05/25/2016 linaCLOtide (LINZESS) 145 mcg capsule Take 145 mcg by mouth daily. lisinopril (PRINIVIL, ZESTRIL) 10 mg tablet Take 10 mg by mouth daily. meclizine (ANTIVERT) 25 mg tabletIndications:vertigo Take 25 mg by mouth 3 times daily as needed. oxyCODONE (ROXICODONE) 5 mg immediate release tablet Take 1-2 Tabs by mouth every 6 hours as needed for Pain. Daily Max: 40 mg 20 Tab 2016 tiZANidine (ZANAFLEX) 2 mg tablet Take 2 mg by mouth daily. traMADol (ULTRAM) 50 mg tablet Take 50 mg by mouth every 6 hours. Reported on 05/25/2016 documented as of this encounter Discharge Disposition Disposition Code Departure Means Destination Home or Self Care documented in this encounter Procedure Notes * Luis Aranda MD - 03/20/2020 1230 ESTAssociated Order(s): ELECTRORETINOGRAM (ERG); VISUAL EVOKED POTENTIAL (VEP) Electroretinogram Report Referring Physician: Jayden Roger MD Study Number: ERG 21-3 Clinical Indication: Patient with left eye pain and visual field defect in need of further definition of the cause. Patient condition: Alert and cooperative Visual Acuity: Left 20/40 Right 20/20 with correction Medications Administered: proparacaine 0.5% tropicamide 1% Technical Description: The patient's eye to be tested is numbed, dialted and dark adapted for 30 minutes in a dark room. A DTL fiber electrode is placed in the eye referenced to Fz. A Ganzfeld stimulator is used for all flash stimuli. In the dark adapted state a very dim flash is used to elicit a pure monserrat response. A bright flash is used to elicit a mixed monserrat and cone response and the oscillatorypotentials. The eye is then light adapted for 10 minutes and the bright flash elicits a pure cone response and thirty Hz flicker stimulus also provides a pure cone response. Filter settings are: LFF 0.3Hz, HFF 500Hz Findings: See data in scans in PRISM Impression: The photopic and scotopic electroretinogram to whole field flashes entirely normal in the left and right eyes. The implicit time calculated by the computer on the 30 Hz flicker is borderline in the left eye but there is no confirmation of this in the bright flash in the photopic state or scotopic state. Luis Aranda MD, PhD [facility] Neurology [facility] Clinical Neurophysiology Pattern Visual Evoked Potential Report Referring Physician: Jayden Roger MD Study Number: [id number] 21-5 Clinical Indication: Patient with left eye pain and left visual field defect in need of further delineation of the possible origin. Patient condition: Alert and cooperative Technical Description: Independent monocular stimulation is performed using a pattern reversal stimulus with standard check size of 27 minutes. Filter settings are: LFF 1 Hz, HFF 1,000 Hz. At least two independent averages are obtained. Eight recording channels are employed including Oz-Fz as well as O1 and O2 and other lateral posterior channels. Findings: Wave Left (msec) Right (msec) L.D. (msec) P100 91.0 94.0 3.0 L.D. = Latency Difference Impression: The latency of the pattern reversal visual evoked potential is entirely normal in each eye and comparisons in terms of latency between the eyes is also normal. There are no significant hemispheric asymmetries to suggest a retrochiasmatic process, although this does not exclude the possibility of a chiasmatic disturbance Luis Aranda MD, PhD [facility] Neurology [facility] Clinical Neurophysiology documented in this encounter Plan of Treatment Not on file documented as of this encounter Procedures Procedure Name Priority Date/Time Associated Diagnosis Comments ELECTRORETINOGRAM (ERG) Routine 03/20/19 12:30 EST Visual field defect VISUAL EVOKED POTENTIAL (VEP) Routine 03/20/2020 12:30 EST Visual field defect documented in this encounter Results * VISUAL EVOKED POTENTIAL (VEP) (03/20/2020 12:30 EST) Narrative [facility] POINT OF CARE - 03/20/2020 12:30 [...] ABCN Clinical Neurophysiology Jayden Roger [facility] Organization Address City/State/ZIP Co de Phone Number [facility] POINT OF CARE * ELECTRORETINOGRAM (ERG) (03/20/2020 12:30 EST) Narrative [facility] POINT OF CARE - 03/20/2020 12:30 [...] state. Luis Aranda MD, PhD [facility] Pattern Visual Evoked Potential [...] disturbance Luis Aranda MD, PhD [facility] Neurology [facility] Clinical Neurophysiology Jayden Roger MD NEUROLOGY [facility] Organization Address City/State/ZIP Co de Phone Number [facility] POINT OF CARE documented in this encounter Visit Diagnoses Diagnosis Visual field defect Visual field defect, unspecified Decreased peripheral vision of left eye Pain of left eye Pain in or around eye documented in this encounter Care Teams Malted Milk Supervisor Relationship Specialty Start Date End Date Caleb Ballard RPA [address] [place] [id number] PCP - General 02/27/20 documented as of this encounter
--- OUTSIDE RECORDS SUMMARY | 2023-10-06 17:06 | XMS_ITS | Encounter Summary ---
Author Organization [facility] Address [address] [place] [address] Care Team Providers Care Manager Purchasing Name Role Phone EloisedraganShital plunkett SAMUEL Primary Care Provider Reason for Visit * Reason Onset Date Comments Abdominal Pain 05/24/2016 S/P Primary repa ir of umbilical hernia ON 04/14/16. Patient went to [facility] in [place] for pain, call patient for more details. Encounter Details Date Type Department Care Team (Late st Contact Info) Description 05/24/2016 Telephone [facility] General Surgery - [place] [address] [place], [place] [id number] Maegan Horton MD [address] [place] [phone] Abdominal Pain (S/P Primary repair of umbilical hernia ON 04/14/16. Patient went to [facility] in [place] for pain, call patient for more details.) Social History Tobacco Use Types Packs/Day Years [...] Telephone Encounter - Ekaterina Hunter RN - 05/24/2016 0956 EDT Spoke with patient. S/p umbilical hernia repair on 04/14/[address] Horton. She calls today to report that she has gone to the ER in [place] a couple of times in the past week with abdominal pain.She states that they found a defect and said she needs to be seen by Dr. Horton. Offered patient appointment on 06/07/16 at 3pm. Patient agrees with plan. Electronically signed by Ekaterina Hunter RN CBN documented in this encounter Plan of Treatment Not on file documented as of this encounter Visit Diagnoses Not on filedocumented in this encounter Care Teams Manager Purchasing Relationship Specialty Start Date End Date Shital Brooke NP [address] [address] PCP - General 02/26/16 02/26/20 documented as of this encounter
--- OUTSIDE RECORDS SUMMARY | 2023-10-06 17:06 | XMS_ITS | Encounter Summary ---
Author Organization [facility] Address [address] [place] [address] Care Team Providers Care Green Building Energy Engineer Name Role Phone Caleb Ballard RPA Primary Care Provider [phone] Reason for Visit * Reason Onset Date Comments Patient Information Update 07/08/2020 Encounter Details Date Type Department Care Team (Late st Contact Info) Description 07/08/2020 Telephone [facility] [place] [address] [place] [address] Edie Ellis NP [address] [place] [phone] Patient Information Update Social History Tobacco Use Types Packs/Day Years [...] encounter Miscellaneous Notes * Telephone Encounter - Renu Nassar - 07/08/2020 1208 EDT [facility] 07/08/20 Right wrist sprain. Discharged home. documented in this encounter Plan of Treatment Not on file documented as of this encounter Visit Diagnoses Not on filedocumented in this encounter Care Teams Green Building Energy Engineer Relationship Specialty Start Date End Date Caleb Ballard RPA [address] [place] [id number] PCP - General 02/27/20 documented as of this encounter
--- OUTSIDE RECORDS SUMMARY | 2023-10-06 17:06 | XMS_ITS | Encounter Summary ---
Author Organization [facility] Address [address] [place] [address] Care Team Providers Care Head Char Filter Tank Tender Name Role Phone Caleb Ballard RPA Primary Care Provider [phone] Encounter Details Date Type Department Care Team (Latest Contact Info) Description 02/27/2020 Travel Social History Tobacco Use Types Packs/Day Years [...] 19:23 EST documented as of this encounter Plan of Treatment Not on file documented as of this encounter Visit Diagnoses Not on filedocumented in this encounter Care Teams Head Char Filter Tank Tender Relationship Specialty Start Date End Date Caleb Ballard RPA [address] [place], [place] [id number] PCP - General 02/27/20 documented as of this encounter
--- OUTSIDE RECORDS SUMMARY | 2023-10-06 17:06 | XMS_ITS | Clinical Summary ---
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 Surgical History Surgery Date Site/Laterality Comments TUBAL LIGATION MOUTH SURGERY 02/14/2005 - 02/13/2006 Upper teeth extracted Family History Medical History Relation Comments Cataract Mother Diabetes Mother Blindness Neg Hx Glaucoma Neg Hx Keratoconus Neg Hx Macular Degeneration Neg Hx Retinal Detachment Neg Hx Retinitis Pigmentosa Neg Hx Relation Status Comments Mother Alive Social History Tobacco Use Types Packs/Day Years [...] 19:23 EST Sexual Orientation Not on file Obstetrics History Last Filed Vital Signs Vital Sign Reading Time Taken Comments Blood Pressure 142/81 05/25/2016 191 EDT Pulse 86 05/25/2016 1916 EDT Temperature 37.1 ??C (98.8 ??F) 05/25/2016 1139 EDT Respiratory Rate 16 05/25/2016 1916 EDT Oxygen Saturation 98% 05/25/2016 1916 EDT Inhaled Oxygen Concentration - - Weight 63.5 kg (140 lb) 05/25/2016 1139 EDT Height 147.3 cm (4' 10) 05/25/2016 1139 EDT Body Mass Index 29.26 05/25/2016 1139 EDT Plan of Treatment Health Maintenance Due Date Last Done Comments Pneumococcal Immunization (1 of 2 - PCV) 1984 Hepatitis B Vaccine (1 of 3 - 19+ 3-dose series) 04/14 COVID-19 Vaccine (1 - 2022-24 season) 2022 Hepatitis C Screen Completed 05/29/2021 Procedures Procedure Name Priority Date/Time Associated Diagnosis Comments HEPATITIS C AB W REFLEX TO HCV RNA BY PCR Routine 05/29/2021 10:14 EDT from Last 3 Months or Most Recently Relevant to Health Maintenance Results * HEPATITIS C AB W REFLEX TO HCV RNA BY PCR (05/29/2021 10:14 EDT) Hep C Antibody Negative Negative 06/01/2021 10:07 EDT [facility] Blood VENOUS BLOOD / Unknown 05/29/2021 10:14 EDT 05/30/2021 22:05 EDT Provider Outr Resulting Lab CHEMISTRY & BLOOD GAS ORDERABLES [facility] [address] [place] [address] from Last 3 Months or Most Recently Relevant to Health Maintenance [address] [place] [address] Carmen Spragueson Zapata Personal/Famil y Self [address] [place] [address] [address] [place] [address] Ruby Sprague Benny Personal/Famil y Self [address] [place] [address] [address] [place] [address] Ruby Sprague Benny Personal/Famil y Self [address] [place] [address] [address] [place] [address] Ruby Sprague Benny Personal/Famil y Self [address] [place] [address] [address] [place] [address] Ruby Sprague Personal/Famil y Self [address] [place] [address] [address] [place] [address] Ruby Sprague Personal/Famil y Self [address] [place] [address] Ruby Sprague Personal/Famil y Self [address] [place] [address] Care Teams Hebrew Teacher Relationship Specialty Start Date End Date Caleb Ballard RPA [address] [facility] [address] [place] [phone] PCP - General 02/27/20
--- OUTSIDE RECORDS SUMMARY | 2023-10-06 17:06 | XMS_ITS | Encounter Summary ---
Author Organization [facility] Address [address] [place] [address] Care Team Providers Care Roller Skates Assembler Name Role Phone ElioCaleb Augustine BERGER Primary Care Provider [phone] Reason for Visit * Reason Onset Date Comments Results 03/21/2020 Encounter Details Date Type Department Care Team (Late st Contact Info) Description 03/21/2020 Telephone [facility] Ophthalmology - [facility] [address] [place], [place] [phone] Jayden Roger MD [address] [facility], [address] [place] [address] Results Social History Tobacco Use Types Packs/Day Years [...] * Telephone Encounter - Corinne Strickland - 03/21/2020 1318 EST Pt scheduled for telemed 03/26 * Telephone Encounter - David Miller - 03/21/2020 1205 EST Patient requests to review results from [facility] labs completed 03/[address] Roger when possible. documented in this encounter Plan of Treatment Not on file documented as of this encounter Visit Diagnoses Not on filedocumented in this encounter Care Teams Roller Skates Assembler Relationship Specialty Start Date End Date Caleb Ballard RPA [address] [place] [address] PCP - General 02/27/20 documented as of this encounter
--- OUTSIDE RECORDS SUMMARY | 2023-10-06 17:06 | XMS_ITS | Encounter Summary ---
Author Organization [facility] Address [address] [place] [address] Care Team Providers Care Terminal Worker Name Role Phone Caleb Ballard RPA Primary Care Provider [phone] Encounter Details Date Type Department Care Team (Late st Contact Info) Description 05/30/2021 Lab Requisition [facility] Pathology & Laboratory Medicine - [facility] [address] [place], [place] [address] Outr Resulting Lab, Provider Social History Tobacco [...] Procedure Name Priority Date/Time Associated Diagnosis Comments SYPHILIS SEROLOGY Routine 05/29/2021 10: 14 EDT HEPATITIS C AB W REFLEX TO HCV RNA BY PCR Routine 05/29/2021 10:14 EDT documented in this encounter Results * SYPHILIS SEROLOGY (05/29/2021 10:14 EDT) Syphilis Serology Negative Negative 06/01/2021 9:41 EDT [facility] Blood VENOUS BLOOD / Unknown 05/29/2021 10:14 EDT 05/30/2021 22:05 EDT Provider Outr Resulting Lab IMMUNOLOGY A ND SEROLOGY ORDERABLES Performing Organization Address City/[facility]/ZIP Co de Phone Number [facility] [address] [place] [address] * HEPATITIS C AB W REFLEX TO HCV RNA BY PCR (05/29/2021 10:14 EDT) Hep C Antibody Negative Negative 06/01/2021 10:07 EDT [facility] Blood VENOUS BLOOD / Unknown 05/29/2021 10:14 EDT 05/30/2021 22:05 EDT Provider Outr Resulting Lab CHEMISTRY & BLOOD GAS ORDERABLES Performing Organization Address City/[facility]/ZIP Co de Phone Number [facility] [address] [place] [address] documented in this encounter Visit Diagnoses Not on filedocumented in this encounter Care Teams Terminal Worker Relationship Specialty Start Date End Date Caleb Ballard RPA [address] [place] [id number] PCP - General 02/27/20 documented as of this encounter
--- OUTSIDE RECORDS SUMMARY | 2023-10-06 17:06 | XMS_ITS | Encounter Summary ---
Author Organization [facility] Address [address] [place] [address] Care Team Providers Care Director Export Name Role Phone Shital Brooke NP Primary Care Provider [phone] Reason for Referral * (Routine) - Closed Specialty Diagnoses / Procedures Referred By Contac t Referred To Contact Mariela Lou MD [address] [place] [id number] Referral ID Status Reason Start Date Expiration Date V isits Requested Visits Authorized [id number] Closed Specialty Services Required 2016 1 1 Comments Please make an appointment with your physician in 4 week(s), they will call you with an appointment. Call your physician immediately if you have any fevers greater than 102.5, drainage from you wound that is not clear or looks infected, persistent bleeding, increasing abdominal pain, problems urinating, or persistent nausea/vomiting. * (Routine) - Closed Specialty Diagnoses / Procedures Referred By Contac t Referred To Contact Mariela Lou MD [address] [place] [id number] Referral ID Status Reason Start Date Expiration Date V isits Requested Visits Authorized [id number] Closed Specialty Services Required 2016 1 1 Comments We are currently collecting quality data on patients having surgery. You may receive a phone call, email, and/or letter about your surgery asking you a series of follow up questions to evaluate specifics aspects of your care. Thank you for your participation. * Follow Up (Routine) - Closed Specialty Diagnoses / Procedures Referred By Contac t Referred To Contact General Surgery Diagnoses Umbilical hernia without obstruction and without gangrene Mariela Lou MD [address] [place] [address] Referral ID Status Reason Start Date Expiration Date V isits Requested Visits Authorized [id number] Closed Specialty Services Required 2016 1 1 Question Answer Reason for Request: s/p umbilical hernia repair Scheduling Comments (optional ? describe specific scheduling needs if applicable): 4 weeks s/p dc Encounter Details Date Type Department Care Team (Latest Contact Info) Description 2016 8:17 EST - 2016 14:12 EST Hospital Encounter [facility] Perioperative Services- [address] [address] Maegan Horton MD [address] [place] [phone] Umbilical hernia without obstruction and without gangrene (Primary Dx) Discharge Disposition: Home or Self [...] Sign Reading Time Taken Comments Blood Pressure 140/93 2016 1315 EST Pulse - - Temperature 36.5 ??C (97.7 ??F) 2016 1358 EST Respiratory Rate 16 2016 1358 EST Oxygen Saturation 96% 2016 1400 EST Inhaled Oxygen Concentration - - Weight 69.4 kg (153 lb) 04/02/2016 0932 EST Height 147.3 cm (4' 10) 04/02/2016 0932 EST Body Mass Index 31.98 04/02/2016 0932 EST documented in this encounter Discharge Diagnoses Diagnosis K42.0 Umbilical hernia with obstruction, without gangrene-K42.0[ICD-10-CM] F17.210 Nicotine dependence, cigarettes, uncomplicated-F17.210[ICD-10-CM] K21.9 Gastro-esophageal reflux disease without esophagitis-K21.9[ICD-10-CM] documented in this encounter Medications at Time of Discharge Medication Sig Dispensed Refills Start Date End Date amitriptyline (ELAVIL) 100 mg tablet Take 100 mg by mouth at bedtime as needed for Sleep. Reported on 03/08/2016 lisinopril (PRINIVIL, ZESTRIL) 10 mg tablet Take 10 mg by mouth daily. meclizine (ANTIVERT) 25 mg tabletIndications:vertig o Take 25 mg by mouth 3 times daily as needed. oxyCODONE (ROXICODONE) 5 mg immediate release tablet Take 1-2 Tabs by mouth every 6 hours as needed for Pain. Daily Max: 40 mg 20 Tab 2016 DM/PSEUDOEPHED/ACETAMINO PHEN (VICKS DAYQUIL ORAL) Take by mouth. Reported on 04/30/2016 04/30/2016 documented as of this encounter Ordered Prescriptions Prescription Sig Dispensed Refills Start Date End Da te oxyCODONE (ROXICODONE) 5 mg immediate release tablet Take 1-2 Tabs by mouth every 6 hours as needed for Pain. Daily Max: 40 mg 20 Tab 2016 documented in this encounter Discharge Disposition Disposition Code Departure Means Destination Home or Self Care documented in this encounter Progress Notes * Carmen Elias, RN - 04/02/2016 0949 EST Ruby Sprague has been instructed as follows regarding medication administration for the day ofthe scheduled procedure. Date of Surgery: 2016 Instructions for Taking Medications Day of Surgery Medication Sig Last Dose Hold DOS Take DOS amitriptyline (ELAVIL) 100 mg tablet Take 100 mg by mouth at bedtime as needed for Sleep. Reported on 03/08/2016 hs DM/PSEUDOEPHED/ACETAMINOPHEN (VICKS DAYQUIL ORAL) Take by mouth. hs lisinopril (PRINIVIL, ZESTRIL) 10 mg tablet Take 10 mg by mouth daily. Yes meclizine (ANTIVERT) 25 mg tablet Take 25 mg by mouth 3 times daily as needed. yes No nsaids, vitamins or supplements for 7 days prior to surgery documented in this encounter H&P Notes * Mariela Fairchild MD - 2016 0908 EST GENERAL SURGERY H&P 2016 9:09 Subjective: Ruby Sprague is a 35 y.o. female who presents today for Hernia (npv/umbilical hernia on ct) I am seeing Ruby Sprague in consultation, at the request of Renee Knowles NP, for periumbilical pain and bulge.? Patient History of Present Illness: ?? This patient with chronic upper abd pain Under the care of GI. She is scheduled to see GI @ [facility] on April. Patient complains of a bulge that she & her PCP discovered it few weeks ago . She also noted a big bulge in the upper midline when contacting the abdominal wall muscles.He describes the bulge being noticeable when he is standing, walking or when lifting objects. It has not c hanged in size and he has no history of hernia. When lays down the bulge disappears. He has had no other significant symptoms The patient's problem list, allergies, immunizations, and medications were documented, reviewed, and updated as follows: ?? No past medical history on file. Past Surgical History: Procedure Laterality Date ??? MOUTH SURGERY 2006 Upper teeth extracted ??? TUBAL LIGATION Social History Social History ??? Marital status: Spouse name: N/A ??? Number of children: N/A ??? Years of education: N/A Occupational History ??? Not on file. Social History Main Topics ??? Smoking status: Current Every Day Smoker Packs/day: 0.25 ??? Smokeless tobacco: Never Used ??? Alcohol use 0.6 oz/week 1 Cans of beer per week ??? Drug use: No ??? Sexual activity: Not on file Other Topics Concern ??? Not on file Social History Narrative Family History Problem Relation Age of Onset ??? Diabetes Mother No current facility-administered medications on file prior to encounter. Current Outpatient Prescriptions on File Prior to Encounter Medication Sig Dispense Refill ??? amitriptyline (ELAVIL) 100 mg tablet Take 100 mg by mouth at bedtime as needed for Sleep. Reported on 03/08/2016 ??? meclizine (ANTIVERT) 25 mg tablet Take 25 mg by mouth 3 times daily as needed. Review of Systems: A 11-point review of systems was completed. Pertinent items are noted in Subjective/HPI. Constitutional: Negative for fever. HENT: Negative for neck pain. Eyes: Negative for blurred vision. Respiratory: Negative for shortness of breath. Cardiovascular: Negative for chest pain, palpitations and orthopnea. Gastrointestinal: (+) for abdominal pain. Genitourinary: Negative for dysuria. Skin: Negative for rash. Neurological: Negative for dizziness. Endo/Heme/Allergies: Negative. Psychiatric/Behavioral: Normal. ?? Objective: Physical Examination: Visit Vitals ??? BP (!) 145/89 (BP Cuff Location: Right arm, Patient Position: Semi fowlers) Comment: Jes is aware ??? Temp 36.9 ??C (98.4 ??F) (Oral) ??? Resp 18 ??? Ht (!) 147.3 cm (58) ??? Wt 69.4 kg (153 lb) ??? SpO2 97% ??? BMI 31.98 kg/m2 Constitutional: She appears well-nourished. No distress. Obese. HENT: Normal Head: Atraumatic. Right Ear: External ear normal. Left Ear: External ear normal. Mouth/Throat: Oropharynx is clear and moist. Eyes: Conjunctivae are normal. No scleral icterus. Neck: Neck supple. Cardiovascular: Normal rate, regular rhythm and normal heart sounds. Pulmonary/Chest: Effort normal and breath sounds normal. No respiratory distress. Abdominal: obvious abdominal scar. Abdomen soft, lax, no distention or tenderness. Bowel sounds arenormal .Supraumbilical bulge noticed on abdominal wall muscles contraction.Big midline defect extend from the above umbilicus to the epigastric area. Musculoskeletal: She exhibits no edema. Neurological: She is alert. Skin: Skin is warm. Psychiatric: She has a normal mood and affect. Her behavior is normal. Judgment and thought contentnormal. ?? Assessment: Ventral hernia( umbilical ) / divarication of recti muscle. Plan: OR for umbilical hernia repair NPO since midnight Pre-op antibiotics ordered Consent in chart ?? Mariela Fairchild MD 2016 9:10 documented in this encounter OR Notes * OR Surgeon - Maegan Horton MD - 2016 0000 EST OPERATIVE REPORT SERVICE DATE: 2016 SURGEON: Maegan Mckeon MD, FACS, [employer] PRINCIPAL: Mariela Lou MD PREOPERATIVE DIAGNOSIS: Reducible ventral umbilical hernia divarication of recti muscle. POSTOPERATIVE DIAGNOSIS: 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 FINDINGS: Small chronic incarcerated umbilical hernia with a defect about 1 cm and divarication of recti muscle. PROCEDURE: Simple repair of umbilical hernia with 1 interrupted Ethibond suture. ANESTHESIA: General with endotracheal intubation. INDICATIONS: This lady with chronic abdominal pain under the care of GI and she is complaining of abulge in the umbilical and supraumbilical area. We had a lengthy discussion about the nature of theumbilical as well as the divarication of recti muscle. She was informed that no intervention of divarication of recti muscle will be taken. We also discussed the repair of umbilical hernia. PAST MEDICAL HISTORY: Hypertension. PAST SURGICAL HISTORY: Mouth surgery and tubal ligation. ALLERGIES: None. The diagnosis, the plan procedure, the risks, benefits and alternatives were explained. The operative procedure was discussed including the risks of general anesthesia and medication and the potential risk of complications. The risks include but are not limited to bleeding, infection with abscess formation, visceral injury, vessel injury and recurrence. There could be also the need for reoperation. Postoperative recovery was discussed, as well as the need for post- surgery follow up. The patientand her family understood the risks and any and all questions were answered to the patient's satisfaction. Consent form was obtained. NARRATIVE: The patient was brought to the operating room on a stretcher, and then moved to operating table in supine position. He was strapped to the table. Both arms were kept abducted at the right angle of his body. After the induction of anesthesia, one dose of antibiotic prophylaxis was given. For DVT prophylaxis, sequential compression devices were applied to both lower extremities. For hypothermia prophylaxis, upper body Danielle Hugger was applied. The patient's abdomen was prepped and draped in usual sterile surgical fashion. The WHO comprehensive safety checklist was completed with the patient's participation. Everybody inthe room introduced him/herself. A time-out was completed. The patient was identified by the name, medical record number and date of . Plan for procedure was confirmed. Consent form was checked. Instruments and equipment were checked and everything we needed was available in the room. We started our procedure by making a small curved supraumbilical incision of about 2 cm in length. The wound was deepened in layers, skin, subcutaneous tissue until we reached the fascia. We dissected the subcutaneous tissue of the fascia 360 degrees for about 2 cm back to the healthy tissue. The umbilicus was detached. The hernia sac was identified, entered and the content reduced and the sac excised down to the fascial level. The size of the defect was about 1 cm. The peritoneal surface underlying the defect was swept of any adhesions. The edges of the fascia were grasped with 2 Arielle clamps. One interrupted [id number] Ethibond suture was utilized. The area was irrigated with warm normal saline and suctioned. No bleeding points were identified. The umbilicus was tacked back to the fascia by using Opal 2-0. The subcutaneous tissue was approximated using 3-0 Opal. The skin was approximated with Vicryl l 4-0 in PC 5 in subcuticular fashion. A total of 7 mL of mixed local anesthesia, Marcaine 0.5% and lidocaine 1% were infiltrated in the wound. Steri- Strip, tegaderm were applied. During the whole procedure, the patient remained stable. Hewas transferred to recovery room in stable condition. At the end of the procedure, all sponges, needles and instrument counts were correct. A medium-sized abdominal binder was applied. ESTIMATED BLOOD LOSS: Nil. URINE OUTPUT: Not recorded. FLUIDS: 1 L. SPECIMENS: None. COMPLICATIONS: None. CULTURE: None. DRAINS: None. I discussed the procedure immediately thereafter with her family and subsequently with her. POSTOPERATIVE RECOMMENDATIONS: To keep the patient n.p.o. for 2 hours, IV fluid, then to advance astolerated. Anticipated discharge this p.m. The patient was seen before discharge. She was doing well. Her vitals were stable. I instructed her no driving while on pain medication and no heavy abdominal exercise or lifting for at least 6 weeks. She can walk. she can jog without limitation. She can shower tomorrow, but no bathing. The patient demonstrated full understanding of these instructions and I will see him in 6 weeks. Prescription for pain medication was given. she was instructed to call our office if increased pain, incision discharge or erythema. Unless otherwise noted, there were no complications, no blood loss, no cultures obtained, no specimens removed, and no drains retained. Maegan Mckeon MD, LINDA LOVELL 06 01 PM / Maegan Mckeon MD, LINDA LOVELL rn Confirmation: [id number] Dictation ID: [id number] documented in this encounter Miscellaneous Notes * Brief Op Note - Mariela Fairchild MD - 2016 1057 EST Brief Post-Op Note Date of Surgery: 2016 Surgeon: Linda SOLORZANO Assistants: Carmine PGY3 Pre-Op Diagnosis: Umbilical hernia Post-Op Diagnosis: Same Procedure(s): Primary repair of umbilical hernia Findings: See formal op note for full details. Fat containing hernia. Anesthesia Type: General and Local Estimated Blood Loss: Unless otherwise noted, there was no blood loss, specimens removed, cultures obtained, or drains retained. The estimated blood loss was Minimal Fluids: Ruby Sprague received Crystalloids 600 mL of fluid replacement. Urine Output: NR Specimens/Cultures: None Drains/Packs: None Complications: None Disposition and Condition: Ruby Sprague was sent to PACU in Stable condition. Mariela Fairchild MD 2016 10:57 documented in this encounter Plan of Treatment Pending Results Name Type Priority Associated Diagnoses Date /Time OUTSIDE IMAGES - US BODY Imaging 03/08/2016 16:26 EST Scheduled Referrals Name Type Priority Associated Diagnoses Orde r Schedule AMB CONS/FOLLOW UP GENERAL SURGERY Outpatient Referral Routine Umbilical hernia without obstruction and without gangrene Ordered: 2016 PROVIDER FOLLOW-UP INSTRUCTIONS Outpatient Referral Routine Ordered: 2016 PROVIDER FOLLOW-UP INSTRUCTIONS Outpatient Referral Routine Ordered: 2016 documented as of this encounter Procedures Procedure Name Priority Date/Time Associated Diagnosis Comments ECG REPORT - SCANNED 04/19/2016 8:42 EST documented in this encounter Results * ECG REPORT - SCANNED (04/19/2016 8:42 EST) 04/19/2016 8:42 EST Scan 2 Content Director PROCEDURE/MINOR TRACEY GICAL ORDERABLES documented in this encounter Visit Diagnoses Diagnosis Umbilical hernia without obstruction and without gangrene- Primary documented in this encounter Administered Medications Inactive Administered Medications - up to 3 most recent administrations Medication Order MAR Action Action Date Dose Rate Site atropine 0.1 mg/mL syringe 0.5 mg 0.5 mg, intravenous, PRN, Starting on Tue04/14/16 at 1053, Until Tue04/14/16 at 1615, Symptomatic HR < 50, Routine, Recovery (only) ceFAZolin (ANCEF) syringe 2 g 2 g, intravenous, Administer over 10 Minutes, PRE-OP ONCE, 1 dose, On Tue04/14/16 at 0930, Routine Given by Other 2016 10:14 EST 2 g diphenhydrAMINE (BENADRYL) injection 6.25 mg 6.25 mg, intravenous, PRN, 2 doses, Starting on Tue04/14/16 at 1053, Until Tue04/14/16 at 1615, nausea, Routine, Recovery (only) fentaNYL citrate (PF) 50 mcg/mL injection 25-100 mcg 25-100 mcg, intravenous, EVERY 5 MIN PRN, Starting on Tue04/14/16 at 1053, Until Tue04/14/16 at 1615, Pain, Routine, Recovery (only) Given 2016 11:38 EST 50 mcg Given 2016 11:30 EST 50 mcg HYDROmorphone (DILAUDID) injection 0.2-1 mg 0.2-1 mg, intravenous, EVERY 10 MINUTES PRN, Starting on Tue04/14/16 at 1053, Until Tue04/14/16 at 1615, Pain, Routine, Recovery (only) Given 2016 11 :43 EST 0.5 mg Given 2016 11:37 EST 0.5 mg lactated ringers (LR) infusion at 25 mL/hr, intravenous, CONTINUOUS, Starting on Tue04/14/16 at 0900, Until Tue04/14/16 at 1615, Routine, Pre Op Day of Surgery New Bag 2016 8:52 EST 25 mL/hr lactated ringers (LR) infusion at 75 mL/hr, intravenous, CONTINUOUS, Starting on Tue04/14/16 at 1115, Until Tue04/14/16 at 1615, Routine, Recovery (only) New Bag 2016 11:46 EST 75 mL/hr metoCLOPramide (REGLAN) injection 10 mg 10 mg, intravenous, PRN, 1 dose, Starting on Tue04/14/16 at 1053, Until Tue04/14/16 at 1130, Nausea, Routine, Recovery (only) Given 2016 11:30 EST 10 mg naloxone (NARCAN) injection 0.2 mg 0.2 mg, intravenous, PRN, Starting on Tue04/14/16 at 1053, Until Tue04/14/16 at 1615, Opioid Reversal, Routine, Recovery (only) ondansetron (PF) (ZOFRAN) injection 2 mg 2 mg, intravenous, PRN, 1 dose, Starting on Tue04/14/16 at 1053, Until Tue04/14/16 at 1130, Nausea, Vomiting, Routine, Recovery (only) Given 2016 11:30 EST 2 mg oxyCODONE (ROXICODONE) immediate release tablet 5 mg 5 mg, oral, PRN, 2 doses, Starting on Tue04/14/16 at 1053, Until Tue04/14/16 at 1615, Pain, Routine, Recovery (only) Given 2016 11:30 EST 10 mg promethazine (PHENERGAN) 25 mg tablet 1 dose, Starting on Tue04/14/16 at 1355, Until Tue04/14/16 at 1358 promethazine (PHENERGAN) tablet 25 mg 25 mg, oral, Once (Without Time Specified), 1 dose, Starting on Tue04/14/16 at 1400, Until Tue04/14/16 at 1358, Routine, Recovery (only) Given 2016 13:58 EST 25 mg documented in this encounter Discontinued Medications Medication Sig Discontinue Reason Start Date End Da te UNABLE TO FIND daily. Med Name: high blood pressure medication Therapy completed 04/02/2016 Ibuprofen-Diphenhydram ine HCl 200-25 mg capsule Take by mouth at bedtime as needed Therapy completed 04/02/2016 documented as of this encounter Historical Medications * This list may reflect changes made after this encounter. Medication Sig Dispensed Refills Start Date End Date lisinopril (PRINIVIL, ZESTRIL) 10 mg tablet Take 10 mg by mouth daily. DM/PSEUDOEPHED/ACETAMINO PHEN (VICKS DAYQUIL ORAL) Take by mouth. Reported on 04/30/2016 04/30/2016 added in this encounter Active and Recently Administered Medications Times are shown in EST. Scheduled Medication Order 04/12/2016 04/13/2016 2016 ceFAZolin (ANCEF) syringe 2 g (COMPLETED) 2 g, intravenous, Administer over 10 Minutes, PRE-OP ONCE, 1 dose, On Tue04/14/16 at 0930, Routine 1014 (Given by Other - Provider: Allison Tan - Comment: Given by Suma Denny CRNA) promethazine (PHENERGAN) tablet 25 mg (COMPLETED) 25 mg, oral, Once (Without Time Specified), 1 dose, Starting on Tue04/14/16 at 1400, Until Tue04/14/16 at 1358, Routine, Recovery (only) 1358 (Given - Provid er: Ivis Aggarwal RN) Continuous Medication Order 04/12/2016 04/13/2016 2016 lactated ringers (LR) infusion at 25 mL/hr, intravenous, CONTINUOUS, Starting on Tue04/14/16 at 0900, Until Tue04/14/16 at 1615, Routine, Pre Op Day of Surgery 0852 (New Bag - Prov ider: Silvana Guerrero RN)1109 (Completed - Provider: Ivis Aggarwal RN) lactated ringers (LR) infusion at 75 mL/hr, intravenous, CONTINUOUS, Starting on Tue04/14/16 at 1115, Until Tue04/14/16 at 1615, Routine, Recovery (only) 1109 (Continued Infu hyun - Provider: Ivis Aggarwal RN)1146 (New Bag - Provider: Ivis Aggarwal RN) PRN Medication Order 04/12/2016 04/13/2016 2016 atropine 0.1 mg/mL syringe 0.5 mg 0.5 mg, intravenous, PRN, Starting on Tue04/14/16 at 1053, Until Tue04/14/16 at 1615, Symptomatic HR < 50, Routine, Recovery (only) diphenhydrAMINE (BENADRYL) injection 6.25 mg 6.25 mg, intravenous, PRN, 2 doses, Starting on Tue04/14/16 at 1053, Until Tue04/14/16 at 1615, nausea, Routine, Recovery (only) fentaNYL citrate (PF) 50 mcg/mL injection 25-100 mcg 25-100 mcg, intravenous, EVERY 5 MIN PRN, Starting on Tue04/14/16 at 1053, Until Tue04/14/16 at 1615, Pain, Routine, Recovery (only) 1130 (Given - Provid er: Ivis Aggarwal RN)1138 (Given - Provider: Ivis Aggarwal RN) HYDROmorphone (DILAUDID) injection 0.2-1 mg 0.2-1 mg, intravenous, EVERY 10 MINUTES PRN, Starting on Tue04/14/16 at 1053, Until Tue04/14/16 at 1615, Pain, Routine, Recovery (only) 1137 (Given - Provid er: Ivis Aggarwal RN)1143 (Given - Provider: Ivis Aggarwal RN) metoCLOPramide (REGLAN) injection 10 mg (COMPLETED) 10 mg, intravenous, PRN, 1 dose, Starting on Tue04/14/16 at 1053, Until Tue04/14/16 at 1130, Nausea, Routine, Recovery (only) 1130 (Given - Provid er: Ivis Aggarwal RN) naloxone (NARCAN) injection 0.2 mg 0.2 mg, intravenous, PRN, Starting on Tue04/14/16 at 1053, Until Tue04/14/16 at 1615, Opioid Reversal, Routine, Recovery (only) ondansetron (PF) (ZOFRAN) injection 2 mg (COMPLETED) 2 mg, intravenous, PRN, 1 dose, Starting on Tue04/14/16 at 1053, Until Tue04/14/16 at 1130, Nausea, Vomiting, Routine, Recovery (only) 1130 (Given - Provid er: Ivis Aggarwal RN) oxyCODONE (ROXICODONE) immediate release tablet 5 mg 5 mg, oral, PRN, 2 doses, Starting on Tue04/14/16 at 1053, Until Tue04/14/16 at 1615, Pain, Routine, Recovery (only) 1130 (Given - Provid er: Ivis Aggarwal RN) documented in this encounter Orders Medications Ordered That Troy ht Not Have Been Administered Count Last Ordered Date First Ordered Date atropine 0.1 mg/mL syringe 0.5 mg 1 017 diphenhydrAMINE (BENADRYL) i njection 6.25 mg 1 2016 naloxone (NARCAN) injection 0.2 mg 1 2016 Diet Count Last Ordered Date First Orde red Date DISCHARGE DIET 1 2016 Nursing Count Last Ordered Date First Orde red Date ACTIVITY INSTRUCTIONS 1 2016 APPLY WARMING BLANKET 1 2016 INSERT PERIPHERAL IV [address] SEQUENTIAL COMPRESSION DEVICE 1 04/14 WOUND CARE INSTRUCTIONS 2016 Transfer Count Last Ordered Date First Orde red Date NOTIFY PPS PACU PATIENT DISCHARGE 1 017 NOTIFY PPS PATIENT ARRIVAL IN PACU 1 2016 Discharge Count Last Ordered Date First Orde red Date DISCHARGE PATIENT 1 2016 Legal Count Last Ordered Date First Orde red Date MISCELLANEOUS DISCHARGE INSTRUCTIONS 02/2016 documented in this encounter Care Teams Director Export Relationship Specialty Start Date End Date Shital Brooke NP [address] [facility] [place] [address] PCP - General 02/26/16 02/26/20 documented as of this encounter
--- OUTSIDE RECORDS SUMMARY | 2023-10-06 17:06 | XMS_ITS | Encounter Summary ---
Author Organization [facility] Address [address] [place] [address] Care Team Providers Care Machine Repairer Maintenance Name Role Phone EdwardoNiaprashant BAKER Primary Care Provider [phone] Caleb Ballard RPA Primary Care Provider [phone] Encounter Details Date Type Department Care Team (Late st Contact Info) Description 03/02/2019 Lab Requisition [facility] Pathology & Laboratory Medicine - [address] [address] Betty Treviño MD [address] [place] [id number] Periumbilical pain Social History Tobacco Use Types Packs/Day [...] Date/Time Associated Diagnosis Comments SURGICAL PATHOLOGY Today 03/01/2019 8:30 EST Periumbilical pain documented in this encounter Results * SURGICAL PATHOLOGY (03/01/2019 8:30 EST) Final Diagnosis A. PERIUMBILICAL MESH AND ATTACHED SOFT TISSUE, EXCISION: - Portions of surgical mesh (gross diagnosis). - Fibro-aponeurotic and adipose tissue with focal fibrosis. 03/06/2019 5:52 [facility] at 0552 Clinical History Periumbilical mesh Excised umbilical mesh 03/06/2019 5:52 [facility] Attestation There was significant resident/fellow involvement in the diagnostic evaluation of this case. By the signature below, the attending physician certifies that they have personally conducted a gross and/or microscopic examination of the described specimens and rendered or confirmed the above diagnosis. 03/06/2019 5:52 [facility] at 0552 Gross Description A. Received in formalin labelled with proper patient identification (initials C, R) and excised umbilical mesh are 2 portions of clear mesh (5.0 x 2.5 x 1.5 cm and 6.3 x 2.6 x 1.7 cm). Each piece is surfaced by quiroga-white to yellow-pink fibrofatty tissue. The smaller portion of mesh has a small amount of attached green suture material. Paint Factory Worker sections of the fibrofatty tissue are submitted in A1. Nilsa Nieto 03/02/2019 10:51 03/06/2019 5:52 [facility] Resident/Luciano w: Patti Walsh MD 03/06/2019 5:52 [facility] Scanned Images 03/06/2019 5:52 [facility] Tissue FOREIGN BODY / Unknown 03/01/2019 8:30 EST 03/02/2019 8:48 EST Betty Treviño MD PATHOLOGY ORDERABLES [facility] [address] [place] [address] documented in this encounter Visit Diagnoses Diagnosis Periumbilical pain Abdominal pain, periumbilic documented in this encounter Care Teams Machine Repairer Maintenance Relationship Specialty Start Date End Date Shital Brooke NP [address] [place] [address] PCP - General 02/26/16 02/26/20 Caleb Ballard RPA [address] [facility] [address] [place], [place] [id number] PCP - General 02/27/20 documented as of this encounter
--- OUTSIDE RECORDS SUMMARY | 2023-10-06 17:06 | XMS_ITS | Encounter Summary ---
Author Organization [facility] Address [address] [place] [address] Care Team Providers Care Plate Molder Name Role Phone Shital Brooke COMMUNICATIONS PROGRAMMER Primary Care Provider [phone] Reason for Visit * Reason Onset Date Comments Other 05/24/2016 Wants to discuss patient as this is her 3rd trip to ER asking for pain meds. Please call Encounter Details Date Type Department Care Team (Late st Contact Info) Description 05/24/2016 Telephone [facility] General Surgery - Main [address] [address] Maegan Horton MD [address] [place] [phone] Other (Wants to discuss patient as this is her 3rd trip to ER asking for pain meds. Please call) Social History Tobacco Use Types [...] Ekaterina Hunter RN - 05/25/2016 1012 EDT Unable to reach. Electronically signed by Ekaterina Hunter, RN CBN documented in this encounter Plan of Treatment Not on file documented as of this encounter Visit Diagnoses Not on filedocumented in this encounter Care Teams Plate Molder Relationship Specialty Start Date End Date Shital Brooke NP [address] [place] [address] PCP - General 02/26/16 02/26/20 documented as of this encounter
--- OUTSIDE RECORDS SUMMARY | 2023-10-06 17:06 | XMS_ITS | Encounter Summary ---
Author Organization [facility] Address [address] [place] [address] Care Team Providers Care Panel Laminator Name Role Phone Caleb Ballard RPA Primary Care Provider [phone] Reason for Visit * Reason Onset Date Comments Appointment Related 04/30/2020 cancellation for today 04/30 Encounter Details Date Type Department Care Team (Late st Contact Info) Description 04/30/2020 Telephone [facility] Ophthalmology - [address] [address] Yoni Vega MD [address] [facility], [address] [place] [address] Appointment Related (cancellation for today 04/30) Social History Tobacco Use Types Packs/Day Years [...] * Telephone Encounter - [facility] - 04/30/2020 0820 [address]T Apt cancelled will call to reschedule [facility] 04/30/2020 8:21 * Telephone Encounter - Nadia Rushing - 04/30/2020 0654 EDT PAS Message: Patient called to cancel appointment with Dr Vega at 10 am today because she said she is not feeling well. Please call patient back to reschedule documented in this encounter Plan of Treatment Not on file documented as of this encounter Visit Diagnoses Not on filedocumented in this encounter Care Teams Panel Laminator Relationship Specialty Start Date End Date Caleb Ballard RPA [address] [place] [address] PCP - General 02/27/20 documented as of this encounter
--- OUTSIDE RECORDS SUMMARY | 2023-10-06 17:06 | XMS_ITS | Encounter Summary ---
Author Organization [facility] Address [address] [place] [address] Care Team Providers Care Airplane Charter Clerk Name Role Phone MerryNia cerdaprashant BAKER Primary Care Provider [phone] Caleb Ballard RPA Primary Care Provider [phone] Reason for Visit * Reason Onset Date Comments Post-op Problem 04/26/2016 S/P Umbilical he rnia on 04/14/16. Patient c/o constant abdominal pain, unable to sleep. Has no pain medicaiton. Encounter Details Date Type Department Care Team (Late st Contact Info) Description 04/26/2016 Telephone [facility] General Surgery - Main [place] [address] [place] [address] Maegan Horton MD [address] [place] [phone] Post-op Problem (S/P Umbilical hernia on 04/14/16. Patient c/o constant abdominal pain, unable to sleep. Has no pain medicaiton. ) Social History Tobacco Use Types Packs/Day [...] on filedocumented in this encounter Care Teams Airplane Charter Clerk Relationship Specialty Start Date End Date Shital Brooke NP [address] [place] [address] PCP - General 02/26/16 02/26/20 Caleb Ballard RPA [address] [address] PCP - General 02/27/20 documented as of this encounter
--- OUTSIDE RECORDS SUMMARY | 2023-10-06 17:07 | XMS_ITS | Encounter Summary ---
Author Organization [facility] Address [address] [place] [address] Care Team Providers Care Gym Attendant Name Role Phone Unavailable Primary Care Provider Unavailabl e Encounter Details Date Type Department Care Team (Late st Contact Info) Description 08/20/2009 Abstract Used for ABSTRACTING Data [phone] Unknown, Doctor Social History Tobacco Use Types Packs/Day Years [...]
--- OUTSIDE RECORDS SUMMARY | 2023-10-06 17:07 | XMS_ITS | Encounter Summary ---
Author Organization [facility] Address [address] [place] [address] Care Team Providers Care Hospitality Team Member Name Role Phone Renee Knowles NP Primary Care Provider [phone] Encounter Details Date Type Department Care Team (Late st Contact Info) Description 11/05/2014 Phlebotomy Only [facility] [address] [place] [address] [employer], Outpatient VFD (visual field defect); Eye pain, left; Decreased peripheral vision of left eye; Visual field contraction, left Social History Tobacco Use Types Packs/Day Years [...] Procedure Name Priority Date/Time Associated Diagnosis Comments HOMOCYSTEINE Routine 11/05/2014 12:58 EDT VFD (visual field defect) Eye pain, left Decreased peripheral vision of left eye Visual field contraction, left SS-B (LA) ANTIBODY, IGG Routine 11/05/2014 12:57 EDT VFD (visual field defect) Eye pain, left Decreased peripheral vision of left eye Visual field contraction, left ZZHN SSA ANTIBODIES BY DEBORAH Routine 11/05/2014 12:57 EDT VFD (visual field defect) Eye pain, left Decreased peripheral vision of left eye Visual field contraction, left SYPHILIS SEROLOGY Routine 11/05/2014 12: 57 EDT VFD (visual field defect) Eye pain, left Decreased peripheral vision of left eye Visual field contraction, left LYME AB Routine 11/05/2014 12:57 EDT VFD (visual field defect) Eye pain, left Decreased peripheral vision of left eye Visual field contraction, left PROTEIN S ACTIVITY Routine 11/05/2014 12 :57 EDT VFD (visual field defect) Eye pain, left Decreased peripheral vision of left eye Visual field contraction, left METHYLMALONIC ACID Routine 11/05/2014 12 :57 EDT VFD (visual field defect) Eye pain, left Decreased peripheral vision of left eye Visual field contraction, left VITAMIN A, S Routine 11/05/2014 12:57 EDT VFD (visual field defect) Eye pain, left Decreased peripheral vision of left eye Visual field contraction, left SED RATE Routine 11/05/2014 12:57 EDT VFD (visual field defect) Eye pain, left Decreased peripheral vision of left eye Visual field contraction, left COMPLETE BLOOD COUNT AND DIFFERENTIAL Routine 11/05/2014 12:57 EDT VFD (visual field defect) Eye pain, left Decreased peripheral vision of left eye Visual field contraction, left PROTEIN C ACTIVITY Routine 11/05/2014 12 :57 EDT VFD (visual field defect) Eye pain, left Decreased peripheral vision of left eye Visual field contraction, left RHEUMATOID FACTOR Routine 11/05/2014 12: 57 EDT VFD (visual field defect) Eye pain, left Decreased peripheral vision of left eye Visual field contraction, left ANGIOTENSIN CONVERTING ENZYME (KING) Routine 11/05/2014 12:57 EDT VFD (visual field defect) Eye pain, left Decreased peripheral vision of left eye Visual field contraction, left C REACTIVE PROTEIN Routine 11/05/2014 12 :57 EDT VFD (visual field defect) Eye pain, left Decreased peripheral vision of left eye Visual field contraction, left ANTI NUCLEAR AB (NISA), IFA Routine 11/05/2014 12:57 EDT VFD (visual field defect) Eye pain, left Decreased peripheral vision of left eye Visual field contraction, left BUN Routine 11/05/2014 12:57 EDT VFD (visual field defect) Eye pain, left Decreased peripheral vision of left eye Visual field contraction, left FOLATE Routine 11/05/2014 12:57 EDT VFD (visual field defect) Eye pain, left Decreased peripheral vision of left eye Visual field contraction, left VITAMIN B12 Routine 11/05/2014 12:57 EDT VFD (visual field defect) Eye pain, left Decreased peripheral vision of left eye Visual field contraction, left CREATININE Routine 11/05/2014 12:57 EDT VFD (visual field defect) Eye pain, left Decreased peripheral vision of left eye Visual field contraction, left documented in this encounter Results * HOMOCYSTEINE (11/05/2014 12:58 EDT) Homocysteine 11.8 4.5 - 12.4 umol/L 11/06/2014 12:38 EDT [facility] Comment: Reference range may not apply to non-fasting samples. It is not recommended that EDTA and serum from the same patient be used interchangeably. Serum concentrations have been observed to be up to 10% higher than EDTA plasma. ??Reference range may not apply to serum results. Blood specimen (specimen) BLOOD SPECIMEN / Unknown 11/05/2014 12:58 EDT 11/05/2014 13:18 EDT Kimani Lizarraga MD CHEMISTRY & BLOOD G ORDERABLES Performing Organization Address [facility] Co de Phone Number [facility] [address] [place] [address] * VITAMIN A, S (11/05/2014 12:57 EDT) [facility] Vitamin A 33.8 32.5 - 78.0 mcg/dL 11/08/2014 13:10 EDT [facility] Comment: Performed by: [place], [address], [place] [address], Division Supervisor: Candace Kim, Ph.D. Blood specimen (specimen) BLOOD SPECIMEN / Unknown 11/05/2014 12:57 EDT 11/05/2014 13:18 EDT Kimani Lizarraga MD CHEMISTRY & BLOOD G ORDERABLES Performing Organization Address [facility] de Phone Number [facility] [address] [place] [address] * PROTEIN C ACTIVITY (11/05/2014 12:57 EDT) [facility] Protein C Clot >150 71 - 199 % 11/07/2014 11:18 EDT [facility] Comment: a. ??Acquired Protein C deficiencies are associated with liver disease, oral anticoagulants, acute thrombotic events and DIC. b. ??Results may be affected by plasma heparin levels greater than 1.5 U/mL for UFH and 0.8 for LMWH. c. ??Results may be overestimated in the presence of direct thrombin inhibitors such as Hirudin (Refludan) and Argatroban (Novastan). d. ??Acute illness and/or thrombosis may influence test results in an unpredictable manner, therefore results should be interpreted with caution in this setting. Blood specimen (specimen) BLOOD SPECIMEN / Unknown 11/05/2014 12:57 EDT 11/05/2014 13:18 EDT Kimani Lizarraga MD HEMATOLOGY & PF4 OR DERABLES Performing Organization Address [facility] Co de Phone Number [facility] [address] [place] [address] * PROTEIN S ACTIVITY (11/05/2014 12:57 EDT) Protein S Activity 139 64 - 147 % 2014 9:57 EDT [facility] Comment: a. ??Acquired Protein S deficiencies are associated with oral anticoagulants, acute thrombotic events, , vitamin K deficiency, L-aspariginase treatment and inflammatory syndrome. Deficiencies may or may not be present with liver disease and DIC. b. ??Results may be affected by plasma heparin levels greater than 1.6U/mL for UFH or greater than 1.8 U/mL for LMWH. c. ??Results may be overestimated in the presence of direct thrombin inhibitors such as Hirudin (Refludan) and Argatroban (Novastan). d. ??Acute illness and/or thrombosis may influence test results in an unpredictable manner, therefore results should be interpreted with caution in this setting. e. ??Age and hormonal status may affect the normal range for females. Blood specimen (specimen) BLOOD SPECIMEN / Unknown 11/05/2014 12:57 EDT 11/05/2014 13:18 EDT Kimani Lizarraga MD HEMATOLOGY & PF4 OR DERABLES Performing Organization Address [facility] Co de Phone Number [facility] [address] [place] [address] * METHYLMALONIC ACID (11/05/2014 12:57 EDT) Pathologist [facility] Methylmalonic Acid 0.25 <=0.40 nmol/mL 11/08/2014 13:10 EDT [facility] Comment: Performed or Referred by: [facility] Labs: [employer] [facility] [employer] [facility], [address] [place] [address], Lab Dir: Earl Vance III, MD Blood specimen (specimen) BLOOD SPECIMEN / Unknown 11/05/2014 12:57 EDT 11/05/2014 13:18 EDT Kimani Lizarraga MD CHEMISTRY & BLOOD G ORDERABLES Performing Organization Address [facility] Co de Phone Number [facility] [address] [place] [address] * (ABNORMAL) HEMAGRAM AND DIFFERENTIAL (11/05/2014 12:57 ED) WBC 10.19 4.0 - 12.4 K/cmm 11/05/2014 13:27 [facility] RBC 4.37 3.86 - 5.04 M/cmm 11/05/2014 13:27 [facility] Hemoglobin 12.0 11.6 - 15.2 gm/dl 11/05/2014 13:27 [facility] HCT 36.2 34.9 - 44.4 % 11/05/2014 13:27 [facility] MCV 83 81 - 98 fl 11/05/2014 13:27 [facility] MCH 27.6 26.7 - 33.3 pg 11/05/2014 13:27 [facility] MCHC 33.2 32.1 - 35.9 gm/dl 11/05/2014 13:27 [facility] RDW-CV 16.6(H) 11.7 - 14.6 % 11/05/2014 13:27 [facility] RDW-SD 47.7 37.6 - 50.3 fl 11/05/2014 13:27 [facility] Anisocytosis 1+ 11/05/2014 13:27 [facility] PLT 397(H) 141 - 320 K/cmm 11/05/2014 13:27 [facility] MPV 8.3 7.5 - 11.2 fl 11/05/2014 13:27 [facility] % Neutrophils 65.6 45.5 - 79.7 % 11/05/2014 13:27 [facility] % Lymphocytes 22.9 15.0 - 46.8 % 11/05/2014 13:27 [facility] % Monocytes 7.6 1.8 - 12.0 % 11/05/2014 13:27 [facility] % Eosinophils 2.7 0.6 - 6.9 % 11/05/2014 13:27 [facility] % Basophils 1.2 0.2 - 1.4 % 11/05/2014 13[facility] Neutrophils 6.69 2.20 - 8.85 K/cm 11/05/2014 13:27 [facility] ABS Lymphs 2.33 1.09 - 3.30 K/[facility] 11/05/2014 13:27 [facility] ABS Monocytes 0.78 0.1 - 0.8 K/cm 11/05/2014 13:27 [facility] ABS Eosinophils 0.28 0.03 - 0.61 K/[facility] 11/05/2014 13:27 [facility] ABS Basophils 0.12(H) 0.01 - 0.11 K/[facility] 11/05/2014 13:27 [facility] Type of Diff: Automated 11/05/2014 13:27 [facility] Blood specimen (specimen) BLOOD SPECIMEN / Unknown 11/05/2014 12:57 EDT 11/05/2014 13:18 EDT Kimani Lizarraga MD PACKAGES & DNA PROB E ORDERABLES Performing Organization Address [facility] de Phone Number [facility] [address] [place] [address] * SSB ANTIBODIES BY DEBORAH (11/05/2014 12:57 EDT) SSB Antibody 1.9 <20 Units 11/08/2014 8:32 EDT [facility] Comment: Negative: <20 Units Weak Positive: 20 - 29 Units Moderate Positive: 40 - 80 Units Strong Positive: >80 Units The following results were obtained with the [employer] SS-B DEBORAH. SS-B values obtained with different manufacturers'assay methods may not be used interchangeably. The magnitude of the reported IgG levels cannot be correlated to an endpoint titer. Blood specimen (specimen) BLOOD SPECIMEN / Unknown 11/05/2014 12:57 EDT 11/05/2014 13:18 EDT Kimani Lizarraga MD IMMUNOLOGY AND SERO LOGY ORDERABLES Performing Organization Address [facility] Co de Phone Number [facility] [address] [place] [address] * SSA ANTIBODIES BY DEBORAH (11/05/2014 12:57 EDT) Pathologist [facility] SSA Antibody 2.0 <20 Units 11/08/2014 8:30 EDT [facility] Comment: Negative: <20 Units Weak Positive: 20 - 29 Units Moderate Positive: 40 - 80 Units Strong Positive: >80 Units The following results were obtained with the [facility] QUANTA Lite SS-A DEBORAH. SS-A values obtained with different manufacturers' assay methods may not be used interchangeably. The magnitude of the reported IgG levels cannot be correlated to an endpoint titer. Blood specimen (specimen) BLOOD SPECIMEN / Unknown 11/05/2014 12:57 EDT 11/05/2014 13:18 EDT Kimani Lizarraga MD IMMUNOLOGY AND SERO LOGY ORDERABLES Performing Organization Address [facility] Co de Phone Number [facility] [address] [place] [address] * RHEUMATOID FACTOR (11/05/2014 12:57 EDT) [facility] Rheumatoid Factor <20 <20 IU/ml 11/05/2014 15:12 EDT [facility] Blood specimen (specimen) BLOOD SPECIMEN / Unknown 11/05/2014 12:57 EDT 11/05/2014 13:18 EDT Kimani Lizarraga MD CHEMISTRY & BLOOD G ORDERABLES Performing Organization Address [facility] Co de Phone Number [facility] [address] [place] [address] * SYPHILIS SEROLOGY (11/05/2014 12:57 EDT) Pathologist [facility] Syphilis Serology Negative 11/06/2014 13:40 EDT [facility] Comment:Reference Range: Neg ative Blood specimen (specimen) BLOOD SPECIMEN / Unknown 11/05/2014 12:57 EDT 11/05/2014 13:18 EDT Kimani Lizarraga MD IMMUNOLOGY AND SERO LOGY ORDERABLES Performing Organization Address [facility] Co de Phone Number [facility] [address] [place] [address] * LYME AB (11/05/2014 12:57 EDT) Lyme AB Negative 11/06/2014 13:39 EDT [facility] Comment:Reference Range: Neg ative Blood specimen (specimen) BLOOD SPECIMEN / Unknown 11/05/2014 12:57 EDT 11/05/2014 13:18 EDT Kimani Lizarraga MD IMMUNOLOGY AND SERO LOGY ORDERABLES Performing Organization Address [facility] Co de Phone Number [facility] [address] [place] [address] * ANGIOTENSIN CONVERTING ENZYME (KING) (11/05/2014 12:57 EDT) Pathologist [facility] Angiotensin Converting Enzyme 38 8 - 53 U/L 11/08/2014 13:10 EDT [facility] Comment: Performed by: [place], [address], [place] [address], Division Supervisor: Candace Kim, Ph.D. Blood specimen (specimen) BLOOD SPECIMEN / Unknown 11/05/2014 12:57 EDT 11/05/2014 13:18 EDT Kimani Lizarraga MD CHEMISTRY & BLOOD G ORDERABLES Performing Organization Address [facility] Co de Phone Number [facility] [address] [place] [address] * (ABNORMAL) SED. RATE:WESTERGREN (11/05/2014 12:57 EDT) Pathologist [facility] Sed. Rate Westergren 36(H) 0 - 20 mm/hr 11/05/2014 13:34 EDT [facility] Blood specimen (specimen) BLOOD SPECIMEN / Unknown 11/05/2014 12:57 EDT 11/05/2014 13:18 EDT Kimani Lizarraga MD HEMATOLOGY & PF4 OR DERABLES Performing Organization Address City/[facility]/ZIP Co de Phone Number [facility] [address] [place] [address] * VITAMIN B12 (11/05/2014 12:57 EDT) Vitamin B-12 277 211 - 911 pg/ml 11/05/2014 14:48 EDT [facility] Blood specimen (specimen) BLOOD SPECIMEN / Unknown 11/05/2014 12:57 EDT 11/05/2014 13:18 EDT Kimani Lizarraga MD CHEMISTRY & BLOOD G ORDERABLES Performing Organization Address City/[facility]/ZIP Co de Phone Number [facility] [address] [place] [address] * BUN (11/05/2014 12:57 EDT) BUN 10 10 - 26 mg/dl 11/05/2014 14:14 EDT [facility] Blood specimen (specimen) BLOOD SPECIMEN / Unknown 11/05/2014 12:57 EDT 11/05/2014 13:18 EDT Kimani Lizarraga MD CHEMISTRY & BLOOD G ORDERABLES Performing Organization Address City/[facility] Co de Phone Number [facility] [address] [place] [address] * FOLATE (11/05/2014 12:57 EDT) Folate 8.9 ng/mL 11/05/2014 14:47 EDT [facility] Comment: Deficient: ??Less than 3.4 ng/mL Indeterminate: ??3.4-5.4 ng/mL Normal: ??Greater than 5.4 ng/mL Blood specimen (specimen) BLOOD SPECIMEN / Unknown 11/05/2014 12:57 EDT 11/05/2014 13:18 EDT Kimani Lizarraga MD CHEMISTRY & BLOOD G ORDERABLES Performing Organization Address City/[facility]/ZIP Co de Phone Number [facility] [address] [place] [address] * CREATININE (11/05/2014 12:57 EDT) Creatinine 0.77 0.52 - 1.04 mg/dl 11/05/2014 14:14 EDT [facility] GFR, Calculated 100 >60 ml/min/1.7 3m2 11/05/2014 14:14 EDT [facility] Comment: eGFR calculated using CKD-EPI equation for non Americans. Multiply eGFR by 1.16 for Americans. Blood specimen (specimen) BLOOD SPECIMEN / Unknown 11/05/2014 12:57 EDT 11/05/2014 13:18 EDT Kimani Lizarraga MD CHEMISTRY & BLOOD G ORDERABLES Performing Organization Address [facility] de Phone Number [facility] [address] [place] [address] * (ABNORMAL) C REACTIVE PROTEIN (11/05/2014 12:57 EDT) C Reactive Protein 10.7(H) <10.0 mg/L 11/05/2014 14:17 EDT [facility] Comment: Note units change to mg/L. Values will be 10 fold higher than with previous units of mg/dl. Blood specimen (specimen) BLOOD SPECIMEN / Unknown 11/05/2014 12:57 EDT 11/05/2014 13:18 EDT Kimani Lizarraga MD CHEMISTRY & BLOOD G ORDERABLES Performing Organization Address [facility] de Phone Number [facility] [address] [place] [address] * ANTI NUCLEAR ANTIBODY (11/05/2014 12:57 EDT) Anti Nuclear Ab <40 0 - 40 Dils 11/06/2014 15:25 EDT [facility] Blood specimen (specimen) BLOOD SPECIMEN / Unknown 11/05/2014 12:57 EDT 11/05/2014 13:18 EDT Kimani Lizarraga MD IMMUNOLOGY AND SERO LOGY ORDERABLES Performing Organization Address [facility]/ZIP Co de Phone Number [facility] [address] [place] [address] documented in this encounter Visit Diagnoses Diagnosis VFD (visual field defect) Visual field defect, unspecified Eye pain, left Decreased peripheral vision of left eye Visual field contraction, left documented in this encounter Care Teams Hospitality Team Member Relationship Specialty Start Date End Date Renee Knowles NP PCP - General 10/11/14 02/25/16 documented as of this encounter
--- OUTSIDE RECORDS SUMMARY | 2023-10-06 17:07 | XMS_ITS | Encounter Summary ---
Author Organization [facility] Address [address] [place] [address] Care Team Providers Care Machine Tech Name Role Phone Unknown, Provider Primary Care Provider [phone] Encounter Details Date Type Department Care Team (Latest Contact Info) Description 10/08/2014 10:14 EDT - 10/08/2014 23:59 EDT Hospital Encounter [address] [address] Unknown, Provider, Discharge Disposition: Home or Self Care Social History Tobacco Use Types Packs/Day Years Used Date Smoking Tobacco: Never Assessed Sex and Gender Information Value Date Recorded Sex Assigned at Not on file Gender Identity Female 02/27/2020 19:23 EST Sexual Orientation Not on file documented as of this encounter Discharge Disposition Disposition Code Departure Means Destination Home or Self Shelter documented in this encounter Plan of Treatment Not on file documented as of this encounter Visit Diagnoses Not on filedocumented in this encounter Care Teams Machine Tech Relationship Specialty Start Date End Date Unknown, Provider, PCP - General 09/06/14 10/10/14 documented as of this encounter
--- OUTSIDE RECORDS SUMMARY | 2023-10-06 17:07 | XMS_ITS | Encounter Summary ---
Author Organization [facility] Address [address] [place] [address] Care Team Providers Care Manager Bar Name Role Phone Liliana Barreto SAMUEL Primary Care Provider Encounter Details Date Type Department Care Team (Late st Contact Info) Description 10/15/2014 Results Only [facility] [phone] Gianni Veras MD [address] [facility] [address] [place] [address] Social History Tobacco Use Types Packs/Day Years [...] Date/Time Associated Diagnosis Comments SURGICAL PATHOLOGY Routine 10/15/2014 19 :01 EDT documented in this encounter Results * SURGICAL PATHOLOGY (10/15/2014 19:01 EDT) Pathology Report: SURGICAL PATHOLOGY REPORT Reports generated via electronic interface contain original data; however they are lacking the format of the original report. Caution should be taken when reading/interpret ing unformatted reports. Name: ? RAUL SPRAGUE ? Accession #: ? [id number] ? : ? 1980 (Age: 34) ??F ? Collect Date: ? 10/15/2014 ? Location: ? [facility] ? Receive Date: ? 10/16/2014 ? Provider: CINDA VERAS MD Copy to: LILIANA BARRETO BACK WINDER ? Final Pathologic Diagnosis: A. COLON, ASCENDING, BIOPSY: - ??Colonic mucosa with no diagnostic abnormality. B. COLON, DESCENDING, BIOPSY: - ??Colonic mucosa with increased ceroid laden macrophages in the lamina propria. C. COLON, SIGMOID, BIOPSY: - ??Colonic mucosa with no diagnostic abnormality. Document reviewed and electronically signed by: Amee Schuler MD Report ??Date: 10/18/2014 17:40 By the signature above, the attending physician certifies that he/she has personally conducted a gross and/or microscopic examination of the described specimens and rendered or confirmed the above diagnosis. Specimen(s) Received: A. ??Ascending colon bx B. ??Descending colon bx C. ??Sigmoid colon bx Clinical History: Pt had EGD w/bx recently 10/15/14; altered bowels; clinical diagnosis code: 536.8, 787.99 Gross Description: A. ?Received in formalin labelled with proper patient identification (initials C, R) and ascending colon bx is a single pink-stanley tissue fragment (0.3 x 0.2 x 0.2 cm). Submitted intact in A1. B. ?Received in formalin labelled with proper patient identification (initials C, R) and descending colon bx is a single pink-stanley tissue fragment (0.3 x 0.2 x 0.2 cm). Submitted intact in B1. C. ?Received in formalin labelled with proper patient identification (initials C, R) and sigmoid colon bx is a single pink-stanley tissue fragment (0.3 x 0.2 x 0.2 cm). Submitted intact in C1. 10/17/2014 11:31 AM End of Report [facility] 10/15/2014 19:0 1 EDT 10/16/2014 19:01 EDT Gianni Veras MD PATHOLOGY ORDERABLES [facility] [address] [place] [address] documented in this encounter Visit Diagnoses Not on filedocumented in this encounter Care Teams Manager Bar Relationship Specialty Start Date End Date Liliana Barreto NP PCP - General 10/11/14 02/25/16 documented as of this encounter
--- OUTSIDE RECORDS SUMMARY | 2023-10-06 17:07 | XMS_ITS | Encounter Summary ---
Author Organization [facility] Address [address] [place] [address] Care Team Providers Care Box Truck Washer Name Role Phone Shital Crockett POCKET MARKER Primary Care Provider [phone] Reason for Visit * Reason Comments Hernia npv/umbilical hernia on ct Encounter Details Date Type Department Care Team (Late st Contact Info) Description 03/08/2016 15:00 EST Office Visit [facility] General Surgery [address] [id number] Maegan Horton MD [address] [place] [phone] Umbilical hernia without obstruction and without gangrene (Primary Dx) Discharge Disposition: Auto Discharge Social History Tobacco Use Types Packs/Day Years [...] Sign Reading Time Taken Comments Blood Pressure 130/70 03/08/2016 1449 EST Pulse 64 03/08/2016 1449 EST Temperature - - Respiratory Rate - - Oxygen Saturation - - Inhaled Oxygen Concentration - - Weight 72 kg (158 lb 12.8 oz) 03/08/2016 1449 ES T Height 149.9 cm (4' 11) 03/08/2016 1449 EST Body Mass Index 32.07 03/08/2016 1449 EST documented in this encounter Discharge Diagnoses Diagnosis K42.9 Umbilical hernia without obstruction or gangrene-K42.9[ICD-10-CM] documented in this encounter Discharge Disposition Disposition Code Departure Means Destination Auto Discharge documented in this encounter Progress Notes * Maegan Horton MD - 03/08/2016 1500 EST [facility] General Surgery Consultation Note - Initial Visit Note Date: 03/08/2016 Patient: Raul Sprague Subjective: Raul Sprague is a 35 y.o. female who presents today for Hernia (npv/umbilical hernia on ct) I am seeing Raul Sprague in consultation, at the request of Renee Knowles NP, for periumbilical pain and bulge. Patient History of Present Illness: This patient with chronic upper abd pain Under the care of GI. She is scheduled to see GI @ [facility] on April. Patient complains of a bulge [...] were documented, reviewed, and updated as follows: Patient Active Problem List Diagnosis ??? Ataxic gait ??? Pain of left eye ??? Decreased peripheral vision of left eye ??? Visual field defects Allergies: Review of patient's allergies indicates no known allergies. Immunizations: There is no immunization history on file for this patient. Medications: Current Outpatient Prescriptions Medication Sig Dispense Refill ??? amitriptyline (ELAVIL) 100 mg tablet Take 100 mg by mouth at bedtime as needed for Sleep. Reported on 03/08/2016 ??? Ibuprofen-Diphenhydramine HCl 200-25 mg capsule Take by mouth at bedtime as needed ??? meclizine (ANTIVERT) 25 mg tablet Take 25 mg by mouth 3 times daily as needed. ??? UNABLE TO FIND daily. Med Name: high blood pressure medication No current facility-administered medications for this visit. History was documented as follows: PMH: HTN Past Surgical History: Procedure Laterality Date ??? [...] Relation Age of Onset ??? Diabetes Mother Review of Systems: A 11-point review of [...] Negative for dizziness. Endo/Heme/Allergies: Negative. Psychiatric/Behavioral: Normal. Objective: Physical Examination: Vitals: Visit Vitals ??? BP 130/70 ??? Pulse 64 ??? Ht (!) 149.9 cm (59) ??? Wt 72 kg (158 lb 12.8 oz) ??? BMI 32.07 kg/m2 Ms. Sprague is a pleasant female who is awake, alert, oriented x3. She did not show any signs of acute distress. She is not in pain. Her vitals were stable. Nursing note and vitals reviewed. The patient was examined & the plan was discussed in the presence of our RN, Ekaterina. Constitutional: She appears well-nourished. No distress. Obese. [...] behavior is normal. Judgment and thought contentnormal. Laboratory: Results Only on 02/19/2016 Component Date Value Ref Range Status ??? Pathology Report: 02/19/2016 Final Value:CYTOPATHOLOGY REPORT Reports generated via electronic interface contain original data; however they are lacking the format of the original report. Caution should be taken when reading/interpreting unformatted reports. Name: RAUL SPRAGUE : 1980 (Age: 35) F Collect Date: 02/19/2016 Location: [facility] Receive Date: 02/20/2016 Provider: MARGARET WALDRON MD Copy to: SHITAL CROCKETT NP Final Report SPECIMEN ADEQUACY Satisfactory for Evaluation - transformation zone component present GENERAL CATEGORIZATION Negative for Intraepithelial Lesion or Malignancy INTERPRETATION Reactive cellular changes associated with inflammation present (includes repair). Hormonal/Contraceptive status: None Other: Additional clinical information: previous PAP 2014 Specimen/Source: Pap Test, Cervix/Endocervix, ThinPrep Imaging System with manual evaluation Document reviewed and electronically signed by: MARLON FABIAN MD Report Date: 02/25/2016 10:42 HPV with Pap Test Date Ordered: 02/25/2016 Status: Signed Out Date Complete: 02/27/2016 By: System Interface Date Reported: 02/27/2016 Interpretation RESULT: Negative for HPV. No E6 or E7 mRNA is detected from HPV types 16,18,31,33,35, 39,45,51,52,56,58,59,66, and 68 by sexual assault response coordinator mediated amplification. Comments Document reviewed and electronically signed by: System Interface Report date: 02/27/2016 By the signature above, the attending physician certifies that he/she has personally conducted a gross and/or microscopic examination of the described specimens and rendered or confirmed the above diagnosis. End of Report Assessment: Ventral hernia( umbilical ) / divarication of recti muscle. Plan: I had a long discussion with the patient describing his risk for recurrence of the hernia due to her central obesity . She was informed that without significant lifestyle modification, repair was unlikely to be long-lasting. The operative procedure was discussed including the risks of general anesthetic and medications and the potential risk of complications. The risks include but not limited to infection, bleeding, recurrence, chronic pain, nerve, vessels & visceral injury . There could also be the need for re-operation. She demonstrated understanding. Post-operative recovery was discussed, as well as the need for postsurgery follow-up. The patient understands the risks; any and all questions were answered to the patient's satisfaction. She was encouraged to come to our emergency room if the hernia becomes incarcerated.After discussing the risks and benefits of a surgical repair, the patient decided he would like to lose weight before moving forward with surgical intervention as this will decrease the likelihood of recurrence. Also , she was made aware that her upper abd symptoms may persist following surgery.No intervention for divarication of recti muscle will be taken. He was counseled about signs & symptoms of incarceration. He was also was consoled about medical & surgical weight loss. I would like to thank Renee Knowles NP for providing me the opportunity to participate in the management of this patient. Submitted by: Maegan Horton MD documented in this encounter Plan of Treatment Not on file documented as of this encounter Results * (ABNORMAL) HEMAGRAM (03/08/2016 15:18 EST) WBC 12.05 4.0 - 12.4 K/cmm 03/08/2016 18:32 [facility] RBC 4.70 3.86 - 5.04 M/cmm 03/08/2016 18:32 [facility] Hemoglobin 11.4(L) 11.6 - 15.2 gm/dl 03/08/2016 18:32 [facility] HCT 36.1 34.9 - 44.4 % 03/08/2016 18:32 [facility] MCV 77(L) 81 - 98 fl 03/08/2016 18:32 [facility] MCH 24.3(L) 26.7 - 33.3 pg 03/08/2016 18:32 [facility] Hypochromia 1+ 03/08/2016 18:32 [facility] MCHC 31.6(L) 32.1 - 35.9 gm/dl 03/08/2016 18:32 [facility] RDW-CV 17.5(H) 11.7 - 14.6 % 03/08/2016 18:32 [facility] RDW-SD 48.4 37.6 - 50.3 fl 03/08/2016 18:32 [facility] Anisocytosis 1+ 03/08/2016 18:32 [facility] PLT 471(H) 141 - 377 K/cmm 03/08/2016 18:32 [facility] MPV 10.0 9.5 - 12.7 fl 03/08/2016 18:32 [facility] Blood specimen (specimen) BLOOD SPECIMEN / Unknown 03/08/2016 15:18 EST 03/08/2016 18:19 EST Maegan Horton MD HEMATOLOGY & PF4 ORD ERABLES Performing Organization Address City/State/[facility] Co de Phone Number [facility] [address] [place] [address] documented in this encounter Visit Diagnoses Diagnosis Umbilical hernia without obstruction and without gangrene- Primary documented in this encounter Historical Medications * This list may reflect changes made after this encounter. Medication Sig Dispensed Refills Start Date End Date meclizine (ANTIVERT) 25 mg tabletIndications:verti go Take 25 mg by mouth 3 times daily as needed. UNABLE TO FIND daily. Med Name: high blood pressure medication 04/02/2016 added in this encounter Care Teams Box Truck Washer Relationship Specialty Start Date End Date Shital Crockett NP [address] [place] [address] PCP - General 02/26/16 02/26/20 documented as of this encounter
--- OUTSIDE RECORDS SUMMARY | 2023-10-06 17:07 | XMS_ITS | Encounter Summary ---
Author Organization [facility] Address [address] [place] [address] Care Team Providers Care Group Reservations Coordinator Name Role Phone Benson Renee BAKER Primary Care Provider [phone] Encounter Details Date Type Department Care Team (Late st Contact Info) Description 12/07/2014 13:13 EDT - 12/07/2014 23:59 EDT Hospital Encounter [facility] [address] [place] [address] Kimani Lizarraga MD [address] [facility], [address] [place] [phone] Discharge Disposition: Home or Self Care Social [...] file documented as of this encounter Discharge Diagnoses Diagnosis Z01.89 Encounter for other specified special examinations-Z01.89[ICD-10-CM] documented in this encounter Medications at Time of Discharge Medication Sig Dispensed Refills Start Date End Date amitriptyline (ELAVIL) 100 mg tablet Take 100 mg by mouth at bedtime as needed for Sleep. Reported on 03/08/2016 Ibuprofen-Diphenhydramin e HCl 200-25 mg capsule Take by mouth at bedtime as needed 04/02/2016 documented as of this encounter Discharge Disposition Disposition Code Departure Means Destination Home or Self [facility] documented in this encounter Plan of Treatment Not on file documented as of this encounter Visit Diagnoses Not on filedocumented in this encounter Care Teams Group Reservations Coordinator Relationship Specialty Start Date End Date Renee Knowles NP PCP - General 10/11/14 02/25/16 documented as of this encounter
--- OUTSIDE RECORDS SUMMARY | 2023-10-06 17:07 | XMS_ITS | Encounter Summary ---
Author Organization [facility] Address [address] [place] [address] Care Team Providers Care Manufacture Specialist Name Role Phone Unavailable Primary Care Provider Unavailabl e Encounter Details Date Type Department Care Team (Late st Contact Info) Description 04/05/2013 Results Only [facility] Laboratory Services - [facility] ([facility] [address] [place] [address] Liliana Barreto NP [address] [place] [address] Social History Tobacco Use Types Packs/Day Years Used Date Smoking Tobacco: Never Assessed Sex and Gender Information Value Date Recorded Sex Assigned at Not on file Gender Identity Female 02/27/2020 19:23 EST Sexual Orientation Not on file documented as of this encounter Plan of Treatment Not on file documented as of this encounter Procedures Procedure Name Priority Date/Time Associated Diagnosis Comments PAP TEST- RESULT ONLY Routine 04/05/2013 0:00 EST documented in this encounter Results * PAP TEST- RESULT ONLY (04/05/2013 0:00 EST) Pathology Report: CYTOPATHOLOGY REPORT Reports generated via electronic interface contain original data; however they are lacking the format of the original report. Caution should be taken when reading/interpreti ng unformatted reports. Name: ? RAUL SPRAGUE ? Accession #: ? [id number] ? : ? 1980 (Age: 32) ??F ?Collect Date: ? 04/05/2013 ? Location: ? [facility] ? Receive Date: ? 04/09/2013 ? Provider: LILIANA BARRETO RESIDENTIAL SALES REPRESENTATIVE Copy to: ? Final Report SPECIMEN ADEQUACY ? Satisfactory for Evaluation - transformation zone component present GENERAL CATEGORIZATION ? Negative for Intraepithelial Lesion or Malignancy INTERPRETATION ? Shift in mary ellen present suggestive of bacterial vaginosis. Last Menstrual Period: 03/03/13 Specimen/Source: ??Pap Test, Cervix/Endocervix, ThinPrep Imaging System with manual evaluation Document reviewed and electronically signed by: ? Yvan Barajas, CT(ASCP) ? Report ??Date: 04/12/2013 12:49 HPV with Pap Test ? Date Ordered: ? 04/12/2013 ? Status: ?? Signed Out ?Date Complete: ? 04/16/2013 ? By: ??System Interface ? Date Reported: ? 04/16/2013 ? Interpretation RESULT: Negative for HPV. No E6 or E7 mRNA is detected from HPV types 16,18,31,33,35, 39,45,51,52,56,58, 59,66, and 68 by munitions handler supervisor mediated amplification. Comments Document reviewed and electronically signed by: ? System Interface ? Report date: 04/16/2013 By the signature above, the attending physician certifies that he/she has personally conducted a gross and/or microscopic examination of the described specimens and rendered or confirmed the above diagnosis. End of Report MÓNICA DUFFY 04/05/2013 04/09/2013 Liliana Barreto NP PATHOLOGY ORDERABLES Performing Organization Address City/State/[place] Co de Phone Number MÓNICA DUFFY [address] [place] [address] documented in this encounter Visit Diagnoses Not on filedocumented in this encounter
--- OUTSIDE RECORDS SUMMARY | 2023-10-06 17:07 | XMS_ITS | Encounter Summary ---
Author Organization [facility] Address [address] [place] [address] Care Team Providers Care Cardiographer Name Role Phone KnowlesRenee fernández SAMUEL Primary Care Provider Reason for Visit * Reason Comments Eye Problem decreased vision/ ey e pain Encounter Details Date Type Department Care Team (Late st Contact Info) Description 12/17/2014 15:00 EST Office Visit [facility] Ophthalmology - [address] [address] Kimani Lizarraga MD [address] [facility], [address] [place] [address] Discharge Disposition: Auto Discharge Social History Tobacco [...] as of this encounter Discharge Diagnoses Diagnosis H57.12 Ocular pain, left eye-H57.12[ICD-10-CM] H53.452 Other localized visual field defect, left eye-H53.452[ICD-10-CM] H53.40 Unspecified visual field defects-H53.40[ICD-10-CM] documented in this encounter Discharge Disposition Disposition Code Departure Means Destination Auto Discharge documented in this encounter Progress Notes * Kimani Lizarraga MD - 12/17/2014 1634 EST . Base Eye Exam Visual Acuity (Snellen - Linear) Right Left Dist cc 20/20 -1 20/200 Near cc J1+(-2) J10 Tonometry No done, No P-Binh, stains only. Pupils Dark Light React APD Right 6 4 Brisk None Left 7 5 Brisk None Pupils checked by LYNNE - normal Visual Woo Right Left Result Full Restrictions Partial superior temporal, inferior temporal, superior nasal, inferior nasal deficiencies Extraocular Movement Right Left Result Full, Ortho Full, Ortho Notes painful elevation. Neuro/Psych Oriented x3: Yes Mood/Affect: Normal Additional Tests Amsler Right Left Amsler Normal Wavy lines Color Right Left AO PIP 10/14 0/14 Stereo Fly: + Circles: 0/9 Slit Lamp and Fundus Exam Slit Lamp Exam Right Left Lids/Lashes Rosacea Rosacea Conjunctiva/Sclera Trace - 1+ LG Stain Trace - 1+ LG Stain Cornea No Stain, TBUT 2 No Stain, TBUT 2 Anterior Chamber Deep and quiet Deep and quiet Iris No TI No TI Refraction Wearing Rx Sphere Cylinder Center [place] Right -2.25 +0.25 120 Left -1.75 +0.25 075 Age: 1yrs Type: SVL Manifest Refraction (Retinoscopy) Sphere Cylinder Center [place] Dist Right Left -1.50 +0.75 080 20/80 Unrefined ROS, Medications, Allergies reviewed. This note has been dictated and scanned. MRI review of brain and orbits: Contrast-enhanced MRI of the brain within normal limits for age. No orbital abnormality identified IMP: Ruby was seen today for no specified reason. Diagnoses and associated orders for this visit: Eye pain, left - Visual Evoked Potential; Standing - Electroretinogram (ERG); Standing Decreased peripheral vision, left - Visual Evoked Potential; Standing - Electroretinogram (ERG); Standing Visual field defects - Visual Evoked Potential; Standing - Electroretinogram (ERG); Standing PLAN: See dictated note and notes in scans/media also. See shadow chart for hard copies of VF's and OCT's. I am scribing for Kimani Lizarraga MD while he is personally performing the service. Rosy Rea, MARCE 12/17/2014 16:54 documented in this encounter Consult Notes * Kimani Lizarraga MD - 12/18/2014 9842 EST [facility] OPHTHALMOLOGY CONSULTATION - 12/17/2014 Renee Knowles NP [address] [phone] Dear Ms Knowles: Our mutual patient returns today. We had seen her in the end of October because of pain in and around the left eye, decreased vision in the left eye, and a markedly contracted visual field. The examination at that time demonstrated a completely normal Goldmann field that is full and normal in the right eye and a contracted field in the left eye. Incidentally, the field in the left eye was contracted within about 5 to 10 degrees around fixation. We did do nerve fiber analysis. The average thickness is 85 microns in the right and 87 microns in the left, and there is no area that is significantly thinned or is there significant asymmetry. The macular region was normal in each eye. Because of the pain and abnormal vision and visual field, we did investigate. Specifically, she hadan MRI of the brain and orbits with and without enhancement. This was essentially normal with no enhancement of the optic nerve on either side. The only abnormality was a single punctate focus of high T2 signal in the subcortical white matter of the right frontal lobe. It was noted that a single focus of this type is considered within normal limits for the patient's age. There were no focal lesions to suggest demyelinating disease identified in the corpus callosum, brain stem, or cerebellum. The orbital scan was completely normal without any enhancement of the optic nerve or other abnormality. The next thing we did was multiple laboratory studies looking for causes for possible optic neuropathy. The study included a couple of abnormalities, one was a C-reactive protein of 10.7, less than 10 is normal, the next abnormality was that of a platelet count of 397. In addition, the sedimentation rate was 36. This is slightly high for her age. An additional abnormality was that the B12 was on the low side, but within the normal limits at 277. The methylmalonic acid was normal. Because of the inflammatory markers, I am going to ask her to check in with you again and perhaps repeat these to see if this was a one off, possibly related to some other inflammatory process going on at the time. In addition, I have ordered a visual-evoked potential and an electroretinogram looking to see if there is a conduction deficit in the left side as compared to the right or an abnormal retinal study. Neither of these should cause pain and that is a bit of a problem. I do not see a cause for the pain. Hopefully, you can evaluate for an inflammatory point of view to see if there is any further investigation pending repeating the results closer to home. We will set up the studies and hopefully we can get them done before the snow falls in [place]. I am going to leave things a bit open. We can review these results, but not that same day, so we can have her back to review them. If that is the case, then I would repeat a visual field to see if there has been any improvement or change, and we can also try a simultaneous Goldmann field as well. I will leave things a bit open. We will get the studies and then once they have been completed and we know the time for them, we can see if it is possible for them to come back another day to review the results and carry out additional testing. Thanking you in advance for your attention to the issues that were raised. Hopefully, we can find a cause for the discomfort she is having and the abnormal visual field, as well as her headache. P.S. It is fortunate that the MRI is totally unremarkable, and it was carried out with and without enhancement. Sincerely, Kimani Lizarraga MD 05 06 PM - Kimani Lizarraga MD cn Dictation ID: [id number] cc: Renee Knowles NP, [address] [address] Samuel Melgar OD, [facility] [address] [place] [address], [address], [place] [address] documented in this encounter Plan of Treatment Not on file documented as of this encounter Visit Diagnoses Diagnosis Eye pain, left- Primary Decreased peripheral vision, left Visual field defects Visual field defect, unspecified documented in this encounter Eye Exam Visual Acuity (Snellen - Linear) Right eye Left eye Dist cc 20/20 -1 20/200 Near cc J1+(-2) J10 Tonometry No done, No P-Binh, stains only. Pupils Dark Light React APD Right eye 6 4 Brisk None Left eye 7 5 Brisk None Pupils checked by LYNNE - normal Visual Woo Right eye Left eye Full Restrictions Partial outer cohen perior temporal, inferior temporal, superior nasal, inferior nasal deficiencies Extraocular Movement Right eye Left eye Full, Ortho Full, Ortho Notes painful elevation. Neuro/Psych Oriented x3: Yes Mood/Affect: Normal Amsler Right eye Left eye Normal Wavy lines Color Right eye Left eye AO PIP /14 0/14 Stereo Fly: + Circles: 0/9 Slit Lamp Exam Right eye Left eye Lids/Lashes Rosacea Rosacea Conjunctiva/Sclera Trace - 1+ LG Stain Trace - 1 + LG Stain Cornea No Stain, TBUT 2 No Stain, TBUT 2 Anterior Chamber Deep and quiet Deep and quiet Iris No TI No TI Wearing Rx Sphere Cylinder Center [place] Right eye -2.25 +0.25 120 Left eye -1.75 +0.25 075 Age: 1yrs Type: SVL Manifest Refraction (Retinoscopy) Sphere Cylinder Center [place] Dist [place] Right eye Left eye -1.50 +0.75 080 20/80 Unrefined Care Teams Cardiographer Relationship Specialty Start Date End Date Renee Knowles NP PCP - General 10/11/14 02/25/16 documented as of this encounter
--- OUTSIDE RECORDS SUMMARY | 2023-10-06 17:07 | XMS_ITS | Encounter Summary ---
Author Organization [facility] Address [address] [place] [address] Care Team Providers Care Opal Miner Name Role Phone Shital Brooke PARLIAMENTARY ARCHIVIST Primary Care Provider Reason for Visit * Reason Onset Date Comments Other 03/12/2016 Encounter Details Date Type Department Care Team (Late st Contact Info) Description 03/12/2016 Telephone [facility] General Surgery - [address] [address] Maegan Horton MD [address] [place] [phone] Other Social History Tobacco Use Types Packs/Day [...] encounter Miscellaneous Notes * Telephone Encounter - Rangel Garvey - 03/12/2016 1538 EST Attemempted to leave voicemail but none of the contact numbers we have are working. documented in this encounter Plan of Treatment Not on file documented as of this encounter Visit Diagnoses Not on filedocumented in this encounter Care Teams Opal Miner Relationship Specialty Start Date End Date Shital Brooke NP [address] [place] [address] PCP - General 02/26/16 02/26/20 documented as of this encounter
--- OUTSIDE RECORDS SUMMARY | 2023-10-06 17:07 | XMS_ITS | Encounter Summary ---
Author Organization [facility] Address [address] [place] [address] Care Team Providers Care Customer Service Supervisor Name Role Phone KnowlesRenee fernández SAMUEL Primary Care Provider [phone] Encounter Details Date Type Department Care Team (Late st Contact Info) Description 02/19/2016 Results Only [facility] [phone] Margaret Waldron MD [facility] [place], [place] [id number] Social History Tobacco Use Types Packs/Day Years [...] Diagnosis Comments PAP TEST- RESULT ONLY Routine 02/19/2016 0:00 EST documented in this encounter Results * PAP TEST- RESULT ONLY (02/19/2016 0:00 EST) Pathology Report: CYTOPATHOLOGY REPORT Reports generated via electronic interface contain original data; however they are lacking the format of the original report. Caution should be taken when reading/interpreti ng unformatted reports. Name: ? MAU, RAUL L ? Accession #: ? [id number] ? : ? 1980 (Age: 35) ??F ?Collect Date: ? 02/19/2016 ? Location: ? [facility] ? Receive Date: ? 02/20/2016 ? Provider: MARGARET WALDRON MD Copy to: [employer]IR [employer]OCK[employer]ER ? Final Report SPECIMEN ADEQUACY ? Satisfactory for Evaluation - transformation zone component present GENERAL CATEGORIZATION ? Negative for Intraepithelial Lesion or Malignancy INTERPRETATION ? Reactive cellular changes associated with inflammation present (includes repair). Hormonal/Contracep tive status: None Other: Additional clinical information: previous PAP 2014 Specimen/Source: ??Pap Test, Cervix/Endocervix, ThinPrep Imaging System with manual evaluation Document reviewed and electronically signed by: ? MARLON FABIAN MD ? Report ??Date: 02/25/2016 10:42 HPV with Pap Test ? Date Ordered: ? 02/25/2016 ? Status: ?? Signed Out ?Date Complete: ? 02/27/2016 ? By: ??System Interface ? Date Reported: ? 02/27/2016 ? Interpretation RESULT: Negative for HPV. No E6 or E7 mRNA is detected from HPV types 16,18,31,33,35, 39,45,51,52,56,58, 59,66, and 68 by utility service worker mediated amplification. Comments Document reviewed and electronically signed by: ? System Interface ? Report date: 02/27/2016 By the signature above, the attending physician certifies that he/she has personally conducted a gross and/or microscopic examination of the described specimens and rendered or confirmed the above diagnosis. End of Report [facility] 02/19/2016 02/20/2016 Margaret Waldron MD PATHOLOGY ORDERABLES [facility] [address] [place] [address] documented in this encounter Visit Diagnoses Not on filedocumented in this encounter Care Teams Customer Service Supervisor Relationship Specialty Start Date End Date Renee Knowles NP PCP - General 10/11/14 02/25/16 documented as of this encounter
--- OUTSIDE RECORDS SUMMARY | 2023-10-06 17:07 | XMS_ITS | Encounter Summary ---
Author Organization [facility] Address [address] [place] [address] Care Team Providers Care Senior Accountant Name Role Phone Knowles, Renee NP Primary Care Provider [phone] Reason for Referral * (Routine) - Closed Specialty Diagnoses / Procedures Referred By Dayan parker Referred To Contact Diagnoses VFD (visual field defect) Eye pain, left Decreased peripheral vision of left eye Visual field contraction, left Procedures OCT (OPHTHALMIC DIGITAL IMAGING, POSTERIOR SEGMENT) Kimani Lizararga MD [address] [place] [phone] Referral ID Status Reason Start Date Expiration Date Visits Re quested Visits Authorized [id number] Closed 11/05/2014 1 1 * (Routine) - Closed Specialty Diagnoses / Procedures [facility] Referred To Contact Diagnoses VFD (visual field defect) Eye pain, left Decreased peripheral vision of left eye Visual field contraction, left Procedures VISUAL FIELD EXAM, EXTENDED Kimani Lizarraga MD [address] [place] [phone] Referral ID Status Reason Start Date Expiration Date Visits Re quested Visits Authorized [id number] Closed 11/05/2014 1 1 Reason for Visit * Reason Comments Visual Field Change Patient refered by Wang Melgar OD due to temporal field loss in the left eye. Patient notes headache in the left eye and VF loss in the left eye for about one year. Patient denies tinnitus and obscurations. Notes baseline floaters as well as some itch and tearing. States FB senstations in left eye. Patient denies use of eye meds, history of Ocular surgery, Ocular injury, and flashes. Patient notes deficet of B12, D2, Iron and Potassium. Encounter Details Date Type Department Care Team (Late st Contact Info) Description 11/05/2014 9:00 EDT Office Visit [facility] Ophthalmology - [address] [address] Kimani Lizarraga MD [address] [facility], [address] [place] [address] Social History Tobacco Use Types [...] - Inhaled Oxygen Concentration - - Weight 68.9 kg (152 lb) 11/05/2014 0954 EDT Height 152.4 cm (5') 11/05/2014 0954 EDT Body Mass Index 29.69 11/05/2014 0954 EDT documented in this encounter Progress Notes * Kimani Lizarraga MD - 11/05/2014 1013 EDT . Base Eye Exam Visual Acuity (Snellen - Linear) Right Left Dist cc 20/30 +3 20/80 +1 Dist ph cc NI Near cc J1+(-2) J5 Tonometry (Applanation, 11:00) Right Left Pressure 14 14 Pupils Dark Light React APD Right 6 3 Brisk None Left 6 3 Brisk None Right trace larger than left. LYNNE agrees, no RAPD seen. Visual Woo Right Left Result Full Restrictions Partial superior temporal, inferior temporal, superior nasal, inferior nasal deficiencies Extraocular Movement Right Left Result Full, Ortho Full, Ortho Painful motility in left eye. Neuro/Psych Oriented x3: Yes Mood/Affect: Normal Dilation Both eyes: Paremyd @ 11:27 Additional Tests Amsler Right Left Amsler Normal Wavy lines Color Right Left AO PIP 12/14 0/14 Stereo Fly: + ? Fly Slit Lamp and Fundus Exam Slit Lamp Exam Right Left Lids/Lashes Rosacea Rosacea Conjunctiva/Sclera No LG Stain No LG Stain Cornea TBUT 7 TBUT 7, Barely trace infranasal SPK Anterior Chamber Deep and quiet Deep and quiet Iris No TI No TI Lens Trace Nuclear sclerosis, peripheral cortical Trace Nuclear sclerosis, peripheral cortical Vitreous Vitreous syneresis, rare cell Vitreous syneresis, rare cell Fundus Exam Right Left Disc intact rim, P&H, no pallor intact rim, P&H, no pallor C/D Ratio 0.4 x 0.4 0.5x0.5 Macula dry, brisk luteal reflex dry Vessels Normal; no sheathing Normal; no sheathing Periphery Normal, no inflammation, no pigment abnormalities Normal, no inflammation, no pigment abnormalities Edited by: Geronimo Collins; Kimani Lizarraga MD Refraction Wearing Rx Sphere Cylinder Beatrice Right -2.25 +0.50 120 Left -1.75 +0.25 080 Age: 1yrs Type: SVL Manifest Refraction (Retinoscopy) Sphere Cylinder Beatrice Dist Right -2.75 +1.00 120 20/25+ Left -1.50 +0.50 080 20/40+ Cornea examined, all 5 layers. ROS, Medications, Allergies reviewed. CVF, Pupil check and EOM's rechecked to include versions & ductions. Lids, lashes, lacrimal and orbit examined. All normal unless otherwise noted. This note has been dictated and scanned. 78D and 20D were used for the posterior exam. IMP: Ruby was seen today for visual field change. Diagnoses and associated orders for this visit: VFD (visual field defect) Comments: Left - Visual Field Exam, Extended - OCT (Ophthalmic Digital Imaging, Posterior Segment) - MR HEAD - MR ORBITS - Anti Nuclear Antibody; Future - C-Reactive Protein; Future - Creatinine; Future - Folate; Future - BUN; Future - Vitamin B12; Future - Sed. Rate:Westergren; Future - Angiotensin Converting Enzyme (KING); Future - Lyme Antibody; Future - Syphilis Serology; Future - Rheumatoid Factor; Future - SSA Antibodies by DEBORAH; Future - SSB Antibodies by DEBORAH; Future - Hemagram & Differential; Future - Methylmalonic Acid; Future - Protein S Activity; Future - Protein C Activity; Future - Homocysteine, Serum; Future - Vitamin A, S; Future Eye pain, left - Visual Field Exam, Extended - OCT (Ophthalmic Digital Imaging, Posterior Segment) - MR HEAD - MR ORBITS - Anti Nuclear Antibody; Future - C-Reactive Protein; Future - Creatinine; Future - Folate; Future - BUN; Future - Vitamin B12; Future - Sed. Rate:Westergren; Future - Angiotensin Converting Enzyme (KING); Future - Lyme Antibody; Future - Syphilis Serology; Future - Rheumatoid Factor; Future - SSA Antibodies by DEBORAH; Future - SSB Antibodies by DEBORAH; Future - Hemagram & Differential; Future - Methylmalonic Acid; Future - Protein S Activity; Future - Protein C Activity; Future - Homocysteine, Serum; Future - Vitamin A, S; Future Decreased peripheral vision of left eye - Visual Field Exam, Extended - OCT (Ophthalmic Digital Imaging, Posterior Segment) - MR HEAD - MR ORBITS - Anti Nuclear Antibody; Future - C-Reactive Protein; Future - Creatinine; Future - Folate; Future - BUN; Future - Vitamin B12; Future - Sed. Rate:Westergren; Future - Angiotensin Converting Enzyme (KING); Future - Lyme Antibody; Future - Syphilis Serology; Future - Rheumatoid Factor; Future - SSA Antibodies by DEBORAH; Future - SSB Antibodies by DEBORAH; Future - Hemagram & Differential; Future - Methylmalonic Acid; Future - Protein S Activity; Future - Protein C Activity; Future - Homocysteine, Serum; Future - Vitamin A, S; Future Visual field contraction, left - Visual Field Exam, Extended - OCT (Ophthalmic Digital Imaging, Posterior Segment) - MR HEAD - MR ORBITS - Anti Nuclear Antibody; Future - C-Reactive Protein; Future - Creatinine; Future - Folate; Future - BUN; Future - Vitamin B12; Future - Sed. Rate:Westergren; Future - Angiotensin Converting Enzyme (KING); Future - Lyme Antibody; Future - Syphilis Serology; Future - Rheumatoid Factor; Future - SSA Antibodies by DEBORAH; Future - SSB Antibodies by DEBORAH; Future - Hemagram & Differential; Future - Methylmalonic Acid; Future - Protein S Activity; Future - Protein C Activity; Future - Homocysteine, Serum; Future - Vitamin A, S; Future Other Orders - amitriptyline (ELAVIL) 100 mg tablet; Take 100 mg by mouth at bedtime as needed for Sleep - Ibuprofen-Diphenhydramine HCl 200-25 mg capsule; Take by mouth at bedtime as needed Test Performed: GVF Indications for test: Constricted visual field - left Results/Findings: Full right eye/ contracted Within 10 degrees left Plan: investigate Test Performed: OCT RNFL/Mac Indications for test: VF defect left/severely constricted. Results/Findings: 85/87- macula dry Plan: investigate PLAN: I am scribing for Kimani Lizarraga MD while he is personally performing the service. NICOLE Lopez (Scribe) documented in this encounter Consult Notes * Kimani Lizarraga MD - 11/05/20142124 EDT [facility] OPHTHALMOLOGY CONSULTATION - 11/05/2014 [facility] [address] [place] [address], [address] [place] [address] Melgar: I had the privilege of seeing your patient, and she was evaluated because of eye pain in the left, decreased vision, and contracted visual field, especially in the left eye. This note was dictated with the patient and her parents present. The patient was examined thoroughly. The pertinent historical features include a past history of head injuries. She also has a headache in and around the left eye, which increases with eye movement. The patient denies any operations on the eyes or patching. She was reported to have had some vitamindeficiencies and, in particular, vitamin B12. I will address that in just a moment. On examination, the patient's vision is 20/30 and 20/80. With careful refraction, she improves to 20/25 and 20/40+. Her near vision is Peña 1+ and Peña 5. The ocular pressure is 14 mmHg in each eye. The pupils are equal and there is no afferent defect. The confrontational field in the right eyeis full and the left eye is markedly contracted. It is important to note that the field does not expand with confrontation testing at varying distances. The ocular motility is completely normal and orthophoric. Versions and ductions are full. The color vision is 12/14 in the right eye correct and 0/14 in the left eye with the [employer] pseudoisochromatic plates. It is important that she could not see the demonstration plate either.The Amsler grid is normal in the right eye, and there were wavy lines present in the left eye. On stereopsis testing, she could just barely/question see the fly. The slit-lamp examination of the anterior segment and the adnexa is remarkably unremarkable. There is some rosacea, but no stain with lissamine green, and there is not a particularly rapid breakup ofthe tear film time. The breakup of the tear film time is about 7 seconds in each eye. There is onlya trace of some stain inferiorly on the left eye. The cornea is otherwise clear. The anterior chamber is deep and quiet and the iris is normal. There are no transillumination defects. In each eye, there is trace nuclear sclerosis and there are some peripheral cortical opacities, none of which should impair her vision. The capsule is healthy. In each eye, there is vitreous syneresis. There is a very rare cell in the vitreous in each eye. The optic nerves themselves are pink and healthy with a cup-disc ratio of about 0.4 and 0.5 in the right and 0.5 x 0.5 in the left. The cup is deep in each eye, but there is no pallor of the rim. Thevessels are normal and there are no hemorrhages or exudates and the macula is dry. There is no sheathing of the vessels. Finally, the retinal periphery was examined and is completely normal. There are no inflammatory changes and no pigment clumping. We did do visual woo. We did Goldmann visual woo. The field in the right eye is remarkably full. This is in contrast to the field that you provided for the right eye. In the left eye, the fieldis concentrically contracted within about 10 degrees around fixation and with the larger isopters. Next, we did nerve fiber analysis. The average thickness was 85 microns in the right and 87 microns in the left. There is no specifically thin area. There is some borderline areas that are thin, but not anything significant. The macula in each eye is completely dry and normal. There is no evidence of edema and no other changes on the optical coherence tomography. Because of the eye pain, decreased vision, and abnormal visual woo, as well as a past history ofvitamin deficiency, I have ordered multiple laboratory studies looking for causes for inflammatory,nutritional, and infectious causes for visual decrease. In addition, I have ordered an MRI of the brain and orbits with and without enhancement looking specifically for causes for the abnormal visual field and decreased vision in the left eye. It is important to note there are some features that are nonphysiologic in the examination, and we will keep that in mind as we investigate. I feel because of the eye pain and decreased vision, it isprudent that we look thoroughly one time, and I have ordered the MRI with and without enhancement and with MS protocol as well as ordered the laboratory studies. The patient will have the laboratory studies drawn today. She will have the MRI in the reasonable future. I will see her once the MRI has been completed, and we can review the laboratory studies at that time as well. The patient knows to call me if there is change or concern in the interval. Again, I will see her once all of the studies have been completed. I will keep you posted of the subsequent findings. Dr Melgar, thank you for allowing me to share in the care of this patient. Sincerely, Kimani Lizarraga MD 12 44 PM - Kimani Lizarraga MD cn Dictation ID: [id number] cc: Renee Knowles LAST REPAIRER, [address] [id number] Samuel Melgar OD, [facility] [address] [place] [address], [address], [place] [address] documented in this encounter Plan of Treatment Scheduled Orders Name Type Priority Associated Diagnoses Orde r Schedule VISUAL FIELD EXAM, EXTENDED Ophthalmology Routine VFD (visual field defect) Eye Pain, Left Decreased Peripheral Vision Of Left Eye Visual Field Contraction, Left Ordered: 11/05/2014 OCT (OPHTHALMIC DIGITAL IMAGING, POSTERIOR SEGMENT) Ophthalmology Routine VFD (visual field defect) Eye Pain, Left Decreased Peripheral Vision Of Left Eye Visual Field Contraction, Left Ordered: 11/05/2014 documented as of this encounter Procedures Procedure Name Priority Date/Time Associated Diagnosis Comments MR HEAD AND ORBIT W/WO CONTRAST 12/07/2014 14:57 EDT documented in this encounter Results * MR BRAIN AND ORBIT W/WO CONTRAST (12/07/2014 14:57 EDT) Anatomical Region Laterality Modality Other 12/07/2014 14:5 7 EDT 12/09/2014 14:52 EDT Narrative 12/09/2014 14:52 EDT MR BRAIN AND ORBIT W/WO CONTRAST ??12/07/2014 2:57 PM Clinical History/Comments: 368.40-Visual field defect, [id number]-CM 379.91-Pain in or around ugd-[id number]-5-CM; patient with unexplained vision loss left eye and contracted VF left eye/ pain on eye movement/ past history of head injuries. Comparison: None available. HEAD: Technique: Sagittal T2 FLAIR, axial T2, T2 FLAIR, SWI, DWI and triplanar T1 pre- and postcontrast MR images of the brain were obtained. Findings: The ventricles and sulci are age-appropriate. There is no midline shift. The basilar cisterns are patent. The cerebellar tonsils are in normal location. There is a single punctate focus of high T2 signal intensity demonstrated in the subcortical white matter of the right frontal lobe. A single focus of this type is considered within normal limits for patient age. There are no focal lesions identified in the corpus callosum, brainstem or cerebellum. Flow voids are demonstrated in the major intracranial arteries and dural venous sinuses. No enhancing lesions are seen following contrast administration. The paranasal sinuses and mastoid air cells are essentially clear. Incidental note is made of a typical hemangioma within the right mandibular condylar head. Impression: Contrast-enhanced MRI of the brain within normal limits for age. ORBITS: Technique: Axial T1 pre- and postcontrast and coronal T1, T2 and T1 postcontrast fat saturated MR images of the orbits were obtained. Findings: The orbital preseptal soft tissues are unremarkable in appearance. Globes and lacrimal glands appear normal. The retro-orbital fat is clear. The superior ophthalmic veins, extraocular muscles and optic nerves are symmetric in size and normal in caliber. No abnormal signal or enhancement is identified within the optic nerves. The optic chiasm appears normal. There is symmetric enhancement of the cavernous sinuses. Impression: No orbital abnormality identified. Procedure Note Tiffanie Arrieta MD - 12/09/2014 MR BRAIN AND ORBIT W/WO CONTRAST 12/07/2014 2:57 PM Clinical History/Comments: 368.40-Visual field defect, [id number]-TSK-4-CM 379.91-Pain in or around tau-NCE-5-CM; patient with unexplained vision loss left eye and contracted VF left eye/ pain on eye movement/ past history of head injuries. Comparison: None available. HEAD: Technique: Sagittal T2 FLAIR, axial T2, T2 FLAIR, SWI, DWI and triplanar T1 pre- and postcontrast MR images of the brain were obtained. Findings: The ventricles and sulci are age-appropriate. There is no midline shift. The basilar cisterns are patent. The cerebellar tonsils are in normal location. There is a single punctate focus of high T2 signal intensity demonstrated in the subcortical white matter of the right frontal lobe. A single focus of this type is considered within normal limits for patient age. There are no focal lesions identified in the corpus callosum, brainstem or cerebellum. Flow voids are demonstrated in the major intracranial arteries and dural venous sinuses. No enhancing lesions are seen following contrast administration. The paranasal sinuses and mastoid air cells are essentially clear. Incidental note is made of a typical hemangioma within the right mandibular condylar head. Impression: Contrast-enhanced MRI of the brain within normal limits for age. ORBITS: Technique: Axial T1 pre- and postcontrast and coronal T1, T2 and T1 postcontrast fat saturated MR images of the orbits were obtained. Findings: The orbital preseptal soft tissues are unremarkable in appearance. Globes and lacrimal glands appear normal. The retro-orbital fat is clear. The superior ophthalmic veins, extraocular muscles and optic nerves are symmetric in size and normal in caliber. No abnormal signal or enhancement is identified within the optic nerves. The optic chiasm appears normal. There is symmetric enhancement of the cavernous sinuses. Impression: No orbital abnormality identified. Kimani Lizarraga MD [facility] MRI ORDERABLES * HOMOCYSTEINE (11/05/2014 12:58 EDT) Pathologist [facility] Homocysteine 11.8 4.5 - 12.4 umol/L 11/06/2014 12:[address] [facility] Comment: Reference range may not [...] & BLOOD G ORDERABLES Performing Organization Address [facility] Co de Phone Number [facility] [address] [place] [address] * VITAMIN A, S (11/05/2014 12:57 EDT) [facility] Vitamin A 33.8 32.5 - 78.0 mcg/dL 11/08/2014 13:[address] [facility] Comment: Performed by: [facility], [address] [facility], [place] [address], Rail Project Engineer: Candace Kim, Ph.D. Blood specimen (specimen) BLOOD SPECIMEN / Unknown 11/05/2014 12:57 EDT 11/05/2014 13:18 EDT Kimani Lizarraga MD CHEMISTRY & BLOOD G ORDERABLES Performing Organization Address [facility] Co de Phone Number [facility] [address] [place] [address] * PROTEIN C ACTIVITY (11/05/2014 12:57 EDT) [facility] Protein C Clot >150 71 - 199 % 11/07/2014 11:[address] [facility] Comment: a. ??Acquired Protein C [...] & PF4 OR DERABLES Performing Organization Address [facility] de Phone Number [facility] [address] [place] [address] * PROTEIN S ACTIVITY (11/05/2014 12:57 EDT) Pathologist [facility] Protein S Activity 139 64 - 147 % 2014 9:[address] [facility] Comment: a. ??Acquired Protein S [...] & PF4 OR DERABLES Performing Organization Address [facility] Co de Phone Number [facility] [address] [place] [address] * METHYLMALONIC ACID (11/05/2014 12:57 EDT) Methylmalonic Acid 0.25 <=0.40 nmol/mL 11/08/2014 13:10 [facility] Comment: Performed or Referred by: [facility] Labs: [facility], [address] [facility], [place] [address], Lab Dir: Earl Vance III, MD Blood specimen (specimen) BLOOD SPECIMEN / Unknown 11/05/2014 12:57 EDT 11/05/2014 13:18 EDT Kimani Lizarraga MD CHEMISTRY & BLOOD G ORDERABLES [facility] [address] [place] [address] * (ABNORMAL) HEMAGRAM AND DIFFERENTIAL (11/05/2014 12:57 EDT) WBC 10.19 4.0 - 12.4 K/cmm 11/05/2014 13:27 [facility] RBC 4.37 3.86 - 5.04 M/cmm 11/05/2014 13:27 [facility] Hemoglobin 12.0 11.6 - 15.2 gm/dl 11/05/2014 13:27 [facility] HCT 36.2 34.9 - 44.4 % 11/05/2014 13:27 [facility] MCV 83 81 - 98 fl 11/05/2014 13:27 [facility] MCH 27.6 26.7 - 33.3 pg 11/05/2014 13:27 [facility] MCHC 33.2 32.1 - 35.9 gm/dl 11/05/2014 13:27 [facility] RDW-CV 16.6(H) 11.7 - 14.6 % 11/05/2014 13:27 [facility] RDW-SD 47.7 37.6 - 50.3 fl 11/05/2014 13:27 [facility] Anisocytosis 1+ 11/05/2014 13:27 [facility] PLT 397(H) 141 - 320 K/cmm 11/05/2014 13:27 [facility] MPV 8.3 7.5 - 11.2 fl 11/05/2014 13:27 [facility] % Neutrophils 65.6 45.5 - 79.7 % 11/05/2014 13:27 [facility] % Lymphocytes 22.9 15.0 - 46.8 % 11/05/2014 13:27 [facility] % Monocytes 7.6 1.8 - 12.0 % 11/05/2014 13:27 [facility] % Eosinophils 2.7 0.6 - 6.9 % 11/05/2014 13:27 [facility] % Basophils 1.2 0.2 - 1.4 % 11/05/2014 13:27 [facility] ABS Neutrophils 6.69 2.20 - 8.85 K/cmm 11/05/2014 13:27 [facility] ABS Lymphs 2.33 1.09 - 3.30 K/cmm 11/05/2014 13:27 [facility] ABS Monocytes 0.78 0.1 - 0.8 K/cmm 11/05/2014 13:27 [facility] ABS Eosinophils 0.28 0.03 - 0.61 K/cmm 11/05/2014 13:27 [facility] ABS Basophils 0.12(H) 0.01 - 0.11 K/cmm 11/05/2014 13:27 [facility] Type of Diff: Automated 11/05/2014 13:27 [facility] Blood specimen (specimen) BLOOD SPECIMEN / Unknown 11/05/2014 12:57 EDT 11/05/2014 13:18 EDT Kimani Lizarraga MD PACKAGES & DNA PROB E ORDERABLES [facility] [address] [place] [address] * SSB ANTIBODIES BY DEBORAH (11/05/2014 12:57 EDT) SSB Antibody 1.9 <20 Units 11/08/2014 8:32 EDT [facility] Comment: Negative: <20 Units Weak Positive: 20 - 29 Units Moderate Positive: 40 - 80 Units Strong Positive: >80 Units The following results were obtained with the [employer] SS-B DEBORAH. SS-B values obtained with different manufacturers'assay methods may not be used interchangeably. The magnitude of the reported IgG levels cannot be correlated to an endpoint titer. Blood specimen (specimen) BLOOD SPECIMEN / Unknown 11/05/2014 12:57 EDT 11/05/2014 13:18 EDT Kimani Lizarraga MD IMMUNOLOGY AND SERO LOGY ORDERABLES Performing Organization Address [facility] de Phone Number [facility] [address] [place] [address] * SSA ANTIBODIES BY DEBORAH (11/05/2014 12:57 EDT) SSA Antibody 2.0 <20 Units 11/08/2014 8:[address] [facility] Comment: Negative: <20 Units Weak Positive: 20 - 29 Units Moderate Positive: 40 - 80 Units Strong Positive: >80 Units The following results were obtained with the [employer] Lite SS-A DEBORAH. SS-A values obtained with different manufacturers' assay methods may not be used interchangeably. The magnitude of the reported IgG levels cannot be correlated to an endpoint titer. Blood specimen (specimen) BLOOD SPECIMEN / Unknown 11/05/2014 12:57 EDT 11/05/2014 13:18 EDT Kimani Lizarraga MD IMMUNOLOGY AND SERO LOGY ORDERABLES Performing Organization Address [facility] Co de Phone Number [facility] [address] [place] [address] * RHEUMATOID FACTOR (11/05/2014 12:57 EDT) Rheumatoid Factor <20 <20 IU/ml 11/05/2014 15:[address] [facility] Blood specimen (specimen) BLOOD SPECIMEN / Unknown 11/05/2014 12:57 EDT 11/05/2014 13:18 EDT Kimani Lizarraga MD CHEMISTRY & BLOOD G ORDERABLES Performing Organization Address [facility] Co de Phone Number [facility] [address] [place] [address] * SYPHILIS SEROLOGY (11/05/2014 12:57 EDT) Syphilis Serology Negative 11/06/2014 13:[address] [facility] Comment:Reference Range: Neg ative Blood specimen (specimen) BLOOD SPECIMEN / Unknown 11/05/2014 12:57 EDT 11/05/2014 13:18 EDT Kimani Lizarraga MD IMMUNOLOGY AND SERO LOGY ORDERABLES Performing Organization Address [facility] Co de Phone Number [facility] [address] [place] [address] * LYME AB (11/05/2014 12:57 EDT) Lyme AB Negative 11/06/2014 13:[address] [facility] Comment:Reference Range: Neg ative Blood specimen (specimen) BLOOD SPECIMEN / Unknown 11/05/2014 12:57 EDT 11/05/2014 13:18 EDT Kiamni Lizarraga MD IMMUNOLOGY AND SERO LOGY ORDERABLES Performing Organization Address [facility] Co de Phone Number [facility] [address] [place] [address] * ANGIOTENSIN CONVERTING ENZYME (KING) (11/05/2014 12:57 EDT) Angiotensin Converting Enzyme 38 8 - 53 U/L 11/08/2014 13:[address] [facility] Comment: Performed by: [facility] [place], [address], [place] [address], Rail Project Engineer: Candace Kim, Ph.D. Blood specimen (specimen) BLOOD SPECIMEN / Unknown 11/05/2014 12:57 EDT 11/05/2014 13:18 EDT Kimani Lizarraga MD CHEMISTRY & BLOOD G ORDERABLES Performing Organization Address City/[facility]/ZIP Co de Phone Number [facility] [address] [place] [address] * (ABNORMAL) SED. RATE:WESTERGREN (11/05/2014 12:57 EDT) [facility] Sed. Rate Westergren 36(H) 0 - 20 mm/hr 11/05/2014 13:[address] [facility] Blood specimen (specimen) BLOOD SPECIMEN / Unknown 11/05/2014 12:57 EDT 11/05/2014 13:18 EDT Kimani Lizarraga MD HEMATOLOGY & PF4 OR DERABLES Performing Organization Address [facility]/ZIP Co de Phone Number [facility] [address] [place] [address] * VITAMIN B12 (11/05/2014 12:57 EDT) [facility] Vitamin B-12 277 211 - 911 pg/ml 11/05/2014 14:[address] [facility] Blood specimen (specimen) BLOOD SPECIMEN / Unknown 11/05/2014 12:57 EDT 11/05/2014 13:18 EDT Kimani Lizarraga MD CHEMISTRY & BLOOD G ORDERABLES Performing Organization Address [facility] Co de Phone Number [facility] [address] [place] [address] * BUN (11/05/2014 12:57 EDT) [facility] BUN 10 10 - 26 mg/dl 11/05/2014 14:[address] [facility] Blood specimen (specimen) BLOOD SPECIMEN / Unknown 11/05/2014 12:57 EDT 11/05/2014 13:18 EDT Kimani Lizarraga MD CHEMISTRY & BLOOD G ORDERABLES Performing Organization Address [facility]/ZIP Co de Phone Number [facility] [address] [place] [address] * FOLATE (11/05/2014 12:57 EDT) [facility] Folate 8.9 ng/mL 11/05/2014 14:[address] [facility] Comment: Deficient: ??Less than 3.4 ng/mL Indeterminate: ??3.4-5.4 ng/mL Normal: ??Greater than 5.4 ng/mL Blood specimen (specimen) BLOOD SPECIMEN / Unknown 11/05/2014 12:57 EDT 11/05/2014 13:18 EDT Kimani Lizarraga MD CHEMISTRY & BLOOD G ORDERABLES Performing Organization Address [facility] Co de Phone Number [facility] [address] [place] [address] * CREATININE (11/05/2014 12:57 EDT) [facility] Creatinine 0.77 0.52 - 1.04 mg/dl 11/05/2014 14:[address] [facility] GFR, Calculated 100 >60 ml/min/1.7 3m2 11/05/2014 14:[address] [facility] Comment: eGFR calculated using CKD-EPI equation for non Americans. Multiply eGFR by 1.16 for Americans. Blood specimen (specimen) BLOOD SPECIMEN / Unknown 11/05/2014 12:57 EDT 11/05/2014 13:18 EDT Kimani Lizarraga MD CHEMISTRY & BLOOD G ORDERABLES Performing Organization Address [facility] de Phone Number [facility] [address] [place] [address] * (ABNORMAL) C REACTIVE PROTEIN (11/05/2014 12:57 EDT) [facility] C Reactive Protein 10.7(H) <10.0 mg/L 11/05/2014 14:[address] [facility] Comment: Note units change to mg/L. Values will be 10 fold higher than with previous units of mg/dl. Blood specimen (specimen) BLOOD SPECIMEN / Unknown 11/05/2014 12:57 EDT 11/05/2014 13:18 EDT Kimani Lizarraga MD CHEMISTRY & BLOOD G ORDERABLES Performing Organization Address City/[facility]/ZIP Co de Phone Number [facility] [address] [place] [address] * ANTI NUCLEAR ANTIBODY (11/05/2014 12:57 EDT) Anti Nuclear Ab <40 0 - 40 Dils 11/06/2014 15:[address] [facility] Blood specimen (specimen) BLOOD SPECIMEN / Unknown 11/05/2014 12:57 EDT 11/05/2014 13:18 EDT Kimani Lizarraga MD IMMUNOLOGY AND SERO LOGY ORDERABLES Performing Organization Address [facility] Co de Phone Number [facility] [address] [place] [address] documented in this encounter Visit Diagnoses Diagnosis VFD (visual field defect)- Primary Visual field defect, unspecified Eye pain, left Decreased peripheral vision of left eye Visual field contraction, left documented in this encounter Historical Medications * This list may reflect changes made after this encounter. Medication Sig Dispensed Refills Start Date End Date amitriptyline (ELAVIL) 100 mg tablet Take 100 mg by mouth at bedtime as needed for Sleep. Reported on 03/08/2016 Ibuprofen-Diphenhydramin e HCl 200-25 mg capsule Take by mouth at bedtime as needed 04/02/2016 added in this encounter Eye Exam Visual Acuity (Snellen - Linear) Right eye Left eye Dist cc 20/30 +3 20/80 +1 Dist ph cc NI Near cc J1+(-2) J5 Tonometry (Applanation, 11:00) Right eye Left eye Pressure 14 14 Pupils Dark Light React APD Right eye 6 3 Brisk None Left eye 6 3 Brisk None Right trace larger than left. LYNNE agrees, no RAPD seen. Visual Woo Right eye Left eye Full Restrictions Partial outer cohen perior temporal, inferior temporal, superior nasal, inferior nasal deficiencies Extraocular Movement Right eye Left eye Full, Ortho Full, Ortho Painful motility in left eye. Neuro/Psych Oriented x3: Yes Mood/Affect: Normal Dilation Both eyes: Paremyd @ 11:27 Amsler Right eye Left eye Normal Wavy lines Color Right eye Left eye AO PIP 12/14 0/14 Stereo Fly: + ? Fly Slit Lamp Exam Right eye Left eye Lids/Lashes Rosacea Rosacea Conjunctiva/Sclera No LG Stain No LG Stain Cornea TBUT 7 TBUT 7, Barely t race infranasal SPK Anterior Chamber Deep and quiet Deep and quiet Iris No TI No TI Lens Trace Nuclear sclero sis, peripheral cortical Trace Nuclear sclerosis, peripheral cortical Vitreous Vitreous syneresis, rare cell Vi treous syneresis, rare cell Fundus Exam Right eye Left eye Disc intact rim, P&H, no pallor intac t rim, P&H, no pallor C/D Ratio 0.4 x 0.4 0.5x0.5 Macula dry, brisk luteal reflex dry Vessels Normal; no sheathing Normal; no sheathing Periphery Normal, no inflammat ion, no pigment abnormalities Normal, no inflammation, no pigment abnormalities Wearing Rx Sphere Cylinder Beatrice Right eye -2.25 +0.50 120 Left eye -1.75 +0.25 080 Age: 1yrs Type: SVL Manifest Refraction (Retinoscopy) Sphere Cylinder Beatrice Dist VA Right eye -2.75 +1.00 120 20/25+ Left eye -1.50 +0.50 080 20/40+ Care Teams Senior Accountant Relationship Specialty Start Date End Date Renee Knowles NP PCP - General 10/11/14 02/25/16 documented as of this encounter
--- OUTSIDE RECORDS SUMMARY | 2023-10-06 17:07 | XMS_ITS | Encounter Summary ---
Author Organization [facility] Address [address] [place] [address] Care Team Providers Care Expanded Function Dental Assistant Name Role Phone Unknown, Provider Primary Care Provider [phone] Encounter Details Date Type Department Care Team (Late st Contact Info) Description 10/08/2014 Results Only [facility] [phone] Gianni Veras MD [address] [facility] [address] [place] [address] Social History Tobacco Use Types [...] Date/Time Associated Diagnosis Comments SURGICAL PATHOLOGY Routine 10/08/2014 6:56 EDT documented in this encounter Results * SURGICAL PATHOLOGY (10/08/2014 6:56 EDT) Pathology Report: SURGICAL PATHOLOGY REPORT Reports generated via electronic interface contain original data; however they are lacking the format of the original report. Caution should be taken when reading/interpretin g unformatted reports. Name: ? RAUL SPRAGUE ? Accession #: ? [id number] ? : ? 1980 (Age: 34) ??F ? Collect Date: ? 10/08/2014 ? Location: ? [facility] ? Receive Date: ? 10/09/2014 ? Provider: CINDA VERAS MD Copy to: LLIIANA BARRETO CRIMINAL LEGAL ASSISTANT ? Final Pathologic Diagnosis: A. SMALL BOWEL, DUODENUM, 2ND PORTION, BIOPSY: - ??Enteric mucosa with Juan David gland hyperplasia, otherwise unremarkable. B. STOMACH, ANTRUM AND BODY, BIOPSY: - ??Antral/transition al mucosa with reactive gastropathy. - ??Negative for Helicobacter pylori on H&E. - ??A separate fragment of unremarkable enteric-type mucosa. See comment. C. GASTROESOPHAGEAL JUNCTION, BIOPSY: - ??Squamous mucosa with features of reflux esophagitis. - ??Cardia type mucosa with foveolar hyperplasia; negative for intestinal metaplasia or dysplasia. Comment: Part B. A separate fragment of enteric type mucosa may represent a carry-over artifact from the small bowel sample. However, a possibility of intestinal metaplasia can not be entirely excluded and correlation/ follow up is recommended. Document reviewed and electronically signed by: AMARI MOTA MD Report ??Date: 10/14/2014 10:28 By the signature above, the attending physician certifies that he/she has personally conducted a gross and/or microscopic examination of the described specimens and rendered or confirmed the above diagnosis. Specimen(s) Received: A. ??2nd portion duodenum B. ??Antrum & body C. ??EGJ Clinical History: Dyspepsia; clinical diagnosis code: ??536.8 Gross Description: A. ?Received in formalin labelled with proper patient identification (initials C, R) and A. 2nd portion duodenum is a single light stanley tissue fragment (0.4 x 0.2 x 0.2 cm). Submitted intact in A1. B. ?Received in formalin labelled with proper patient identification (initials C, R) and B. antrum + body is one light stanley tissue and one white tissue (0.2 x 0.2 x 0.1 cm and 0.2 x 0.1 x 0.1 cm, respectively). Entirely submitted in B1. C. ?Received in formalin labelled with proper patient identification (initials C, R) and C. EGJ are four stanley-white tissues (0.4 x 0.2 x 0.1 cm to 0.1 x 0.1 x 0.1 cm). Entirely submitted in C1-C2. Luis Garay 10/10/2014 9:35 AM End of Report [facility] 10/08/2014 6:56 EDT 10/09/2014 6:56 EDT Gianni Veras MD PATHOLOGY ORDERABLES Performing Organization Address City/State/[facility] Co de Phone Number [facility] [address] [place] [address] documented in this encounter Visit Diagnoses Not on filedocumented in this encounter Care Teams Expanded Function Dental Assistant Relationship Specialty Start Date End Date Unknown, Provider, PCP - General 09/06/14 10/10/14 documented as of this encounter
--- OUTSIDE RECORDS SUMMARY | 2023-10-06 17:07 | XMS_ITS | Encounter Summary ---
Author Organization [facility] Address [address] [place] [address] Care Team Providers Care Wood Cabinet Finisher Name Role Phone Renee Knowles NP Primary Care Provider [phone] Encounter Details Date Type Department Care Team (Latest Contact Info) Description 10/15/2014 11:00 EDT - 10/15/2014 23:59 EDT Hospital Encounter [facility] - [address] [address] Unknown, Provider, Discharge Disposition: Home or Self Care Social History Tobacco Use Types Packs/Day Years Used Date Smoking Tobacco: Never Assessed Sex and Gender Information Value Date Recorded Sex Assigned at Not on file Gender Identity Female 02/27/2020 19:23 EST Sexual Orientation Not on file documented as of this encounter Discharge Disposition Disposition Code Departure Means Destination Home or Self Half-Way documented in this encounter Plan of Treatment Not on file documented as of this encounter Visit Diagnoses Not on filedocumented in this encounter Care Teams Wood Cabinet Finisher Relationship Specialty Start Date End Date Renee Knowles NP PCP - General 10/11/14 02/25/16 documented as of this encounter
--- OUTSIDE RECORDS SUMMARY | 2023-10-06 17:07 | XMS_ITS | Encounter Summary ---
Author Organization [facility] Address [address] [place] [address] Care Team Providers Care Affiliate Marketing Specialist Name Role Phone Shital Brooke PREPARATION SUPERVISOR Primary Care Provider Encounter Details Date Type Department Care Team (Late st Contact Info) Description 03/08/2016 Phlebotomy Only [address] [address] Investment Strategist, Outpatient Umbilical hernia without obstruction and without gangrene (Primary Dx) Social History Tobacco Use Types [...] Procedure Name Priority Date/Time Associated Diagnosis Comments COMPLETE BLOOD COUNT Routine 03/08/2016 15:18 EST Umbilical hernia without obstruction and without gangrene documented in this encounter Results * (ABNORMAL) HEMAGRAM (03/08/2016 15:18 EST) WBC 12.05 4.0 - 12.4 K/cmm 03/08/2016 18:[address] [facility] RBC 4.70 3.86 - 5.04 M/cmm 03/08/2016 18:32 [facility] Hemoglobin 11.4(L) 11.6 - 15.2 gm/dl 03/08/2016 18:32 [facility] HCT 36.1 34.9 - 44.4 % 03/08/2016 18:32 [facility] MCV 77(L) 81 - 98 fl 03/08/2016 18:32 [facility] MCH 24.3(L) 26.7 - 33.3 pg 03/08/2016 18:32 [facility] Hypochromia 1+ 03/08/2016 18:32 [facility] MCHC 31.6(L) 32.1 - 35.9 gm/dl 03/08/2016 18:32 [facility] RDW-CV 17.5(H) 11.7 - 14.6 % 03/08/2016 18:32 [facility] RDW-SD 48.4 37.6 - 50.3 fl 03/08/2016 18:32 [facility] Anisocytosis 1+ 03/08/2016 18:32 [facility] PLT 471(H) 141 - 377 K/cmm 03/08/2016 18:32 [facility] MPV 10.0 9.5 - 12.7 fl 03/08/2016 18:32 [facility] Blood specimen (specimen) BLOOD SPECIMEN / Unknown 03/08/2016 15:18 EST 03/08/2016 18:19 EST Maegan Horton MD HEMATOLOGY & PF4 ORD ERABLES [facility] [address] [place] [address] documented in this encounter Visit Diagnoses Diagnosis Umbilical hernia without obstruction and without gangrene- Primary documented in this encounter Care Teams Affiliate Marketing Specialist Relationship Specialty Start Date End Date Shital Brooke NP [address] [place] [address] PCP - General 02/26/16 02/26/20 documented as of this encounter
--- OUTSIDE RECORDS SUMMARY | 2023-10-06 17:07 | XMS_ITS | Encounter Summary ---
Author Organization [facility] Address [address] [place] [address] Care Team Providers Care Shop Hand Name Role Phone Shital Brooke HEALTH CARE LAW SPECIALIST Primary Care Provider Encounter Details Date Type Department Care Team (Lorna Contact Info) Description 03/02/2016 Results Only Imaging [facility] [phone] Unknown, Provider, Social History Tobacco Use Types [...] as of this encounter Plan of Treatment Pending Results Name Type Priority Associated Diagnoses Date /Time RAD OUTSIDE CD - US BODY Imaging 03/02/2016 16:50 EST OUTSIDE CD - CT BODY Imaging 02/14 16:50 EST OUTSIDE CD - CT BODY Imaging 02/14 16:50 EST documented as of this encounter Visit Diagnoses Not on filedocumented in this encounter Care Teams Shop Hand Relationship Specialty Start Date End Date Shital Brooke NP [address] [place] [address] PCP - General 02/26/16 02/26/20 documented as of this encounter
--- OUTSIDE RECORDS SUMMARY | 2023-10-06 17:07 | XMS_ITS | Encounter Summary ---
Author Organization [facility] Address [address] [place] [address] Care Team Providers Care Ground Crewman Aircraft Support Name Role Phone Knowles, Renee NP Primary Care Provider [phone] Reason for Visit * Reason Onset Date Comments Appointment Related 11/13/2014 Encounter Details Date Type Department Care Team (Late st Contact Info) Description 11/13/2014 Telephone [facility] Ophthalmology - [address] [phone] Kimani Lizarraga MD [address] [facility], [facility] [address] [place] [address] Appointment Related Social History Tobacco [...] encounter Miscellaneous Notes * Telephone Encounter - Norman Martinezna - 11/13/2014 1321 EDT Called and spoke to Ruby with date and time of MRI, which is scheduled on Tuesday, December 07, 2014 at 2 pm, at [facility] with check in time at 1:30 pm at 3-rd floor registration. Ruby will return to see Dr Lizarraga to review MRI and labs on Thursday, December 11, 2014 at 8 am. documented in this encounter Plan of Treatment Not on file documented as of this encounter Visit Diagnoses Not on filedocumented in this encounter Care Teams Ground Crewman Aircraft Support Relationship Specialty Start Date End Date Renee Knowles NP PCP - General 10/11/14 02/25/16 documented as of this encounter
[2023-10-06 19:33] LABS: HCT 36.7 % (36.0-46.0); HGB 10.8 g/dL (11.2-15.7); MCH 21.6 pg (27.0-33.0); MPV 10.8 fL (8.0-11.0); Platelet Count 385 10^3/uL (130-400); RDW-SD 52.8 fL; WBC 7.69 10^3/uL (4.4-10.8)
[2023-10-06 19:55] LABS: MCHC 29.4 % (32.0-36.0); MCV 73 fL (80-95)
[2023-10-06 19:56] LABS: RDW 20.4 % (11.7-14.6)
[2023-10-06 20:05] LABS: Iron 100 ug/dL (50-170); Total Iron Binding Capacity 389 ug/dL (250-450); Transferrin Sat 26 % (15-50)
== END 2023-10-06 16:59 | disposition home or self-care (01) ==
LOC: NCHCN 16:58
PROVIDERS: PCP Physician Assistant; Visit Provider Physician Assistant
DX: E11.9 Type 2 diabetes mellitus without complications (principal)
CPT/HCPCS: 85027; 83036; 83540; 83550

== ENCOUNTER 2023-11-07 09:57 | Emergency (ER) | payer MEDICARE, MEDICAID, SELFPAY ==
[2023-11-07 10:02] VITALS: BP 132/85; PULSE 80; RESP 18; TEMP 36.6; O2SAT 98
--- NOTE | 2023-11-07 10:14 | W.ED.GENAD ---
Discharge Plan Disposition Patient Disposition: Home Condition: Stable Discharge Details Clinical Impression: Closed fracture of fifth toe of left foot Primary Care Provider: Caleb Ballard ED Provider: Fran Varner Home Meds and New Rx's Prescriptions: Continued mecobalamin (vitamin B12) 1,000 mcg tablet,chewable 1,000 mcg PO DAILY ibuprofen 800 mg tablet 800 mg PO TID PRN zolpidem [Ambien] 5 mg tablet 5 mg PO QHS PRN atorvastatin 20 mg tablet 20 mg PO DAILY albuterol sulfate [ProAir HFA] 90 mcg/actuation Hfa Aerosol Inhaler 1 - 2 puff INHALATION PRN PRN pregabalin [Lyrica] 150 mg Capsule 150 mg PO DAILY folic acid 1 mg tablet 1 mg PO DAILY Patient Comments: TAKE 1 TABLET BY MOUTH DAILY propranolol 20 mg tablet 20 mg PO DAILY Patient Comments: TAKE 1 TABLET BY MOUTH TWICE DAILY NEEDED FOR ANXIETY Linzess 290 mcg capsule 290 mcg PO DAILY Patient Comments: TAKE 1 CAPSULE BY MOUTH DAILY ferrous sulfate [iron] 325 mg (65 mg iron) Tablet 325 mg PO DAILY topiramate 100 mg tablet 1 tab PO HS Patient Comments: TAKE 1 TABLET BY MOUTH EVERY NIGHT duloxetine 60 mg capsule,delayed release(DR/EC) 60 mg PO DAILY Patient Comments: TAKE ONE CAPSULE BY MOUTH EVERY DAY Discharge Instructions Instructions: Toe Fracture ED Additional Instructions: Please use orthopedic shoe and crutches. Weight-bear as tolerated. Keep your foot elevated is much as possible over the next week. Please take acetaminophen (tylenol) - 650mg every 6 hours by mouth as needed for pain. Take your ibuprofen as prescribed. Please follow-up with podiatry. Call to schedule an appointment. Return to the ER immediately for any worsening or new concerning symptoms. Referrals: Esther Norris DPM [[facility] STAFF PHYSICIAN] - Discharge Data Discharge Date/Time-TO BE ENTERED AT DEPARTURE: 11/07/23 11:46 HPI General Mode of arrival: ambulatory. Date/Time Provider Initiated Documentation: 11/07/23 10:07. Limitations to Documentation: no limitations. Information obtained by: patient. HPI Narrative: 43-year-old female here with left fifth toe injury. Patient notes she jammed her left fifth toe at 8 AM this morning on a stool. She has had pain since the injury. No other injury sustained. Related Data Home Medications ?Medication ?Instructions ?Recorded ?Confirmed albuterol sulfate 90 mcg/actuation 1 - 2 puff inhalation PRN PRN 05/30/20 11/07/23 aerosol inhaler (ProAir HFA) pregabalin 150 mg capsule (Lyrica) 150 mg PO DAILY 05/30/20 11/07/23 atorvastatin 20 mg tablet 20 mg PO DAILY 06/18/20 11/07/23 folic acid 1 mg tablet 1 mg PO DAILY 12/20/20 11/07/23 linaclotide 290 mcg capsule 290 mcg PO DAILY 12/20/20 11/07/23 (Linzess) propranolol 20 mg tablet 20 mg PO DAILY 12/20/20 11/07/23 ferrous sulfate 325 mg (65 mg 325 mg PO DAILY 08/03/21 11/07/23 iron) tablet (iron) topiramate 100 mg tablet 1 tab PO HS 08/03/21 11/07/23 ibuprofen 800 mg tablet 800 mg PO TID PRN 04/02/22 11/07/23 mecobalamin (vitamin B12) 1,000 1,000 mcg PO DAILY 04/02/22 11/07/23 mcg chewable tablet zolpidem 5 mg tablet (Ambien) 5 mg PO QHS PRN 04/02/22 11/07/23 duloxetine 60 mg capsule,delayed 60 mg PO DAILY 11/07/23 11/07/23 release Allergies Allergy/AdvReac Type Severity Reaction Status Date / Time lisinopril AdvReac Mild cough Verified 11/07/23 09:59 hydrocodone AdvReac Headache Verified 11/07/23 09:59 General Stated Complaint: Orthopedic CLIFFORD: 4 Review of Systems Musculoskeletal Musculoskeletal: Reports as per HPI Exam Extrem Left lower extremity: foot Details: tenderness Location: of another digit Location: the 5th digit; not of the base of the 5th metatarsal, abnormal ROM of toe Details: pain with passive ROM Location: of the 5th digit and motor-sensory exam Details: light-touch normal Course Vital Signs Vital signs: Vital Signs Temperature 36.6 C 11/07/23 10:02 Pulse 80 11/07/23 10:02 Respiratory Rate 18 11/07/23 10:02 Blood Pressure 132/85 11/07/23 10:02 Pulse Oximetry 98 11/07/23 10:02 Temperature 36.6 C 11/07/23 10:02 Pulse 80 11/07/23 10:02 Respiratory Rate 18 11/07/23 10:02 Respiratory Effort Normal, Non-Labored 11/07/23 10:07 Blood Pressure 132/85 11/07/23 10:02 Pulse Oximetry 98 11/07/23 10:02 Pain Level 10 11/07/23 10:02 Medical Decision Making 43-year-old female here with his left fifth toe pain after jamming her toe this morning. Patient took ibuprofen prior to arrival. Patient was given acetaminophen and ice. X-ray of the fifth toe was interpreted by radiology: Acute angulated fracture involving the proximal phalanx of the left 5th toe. Plan for post op shoe and outpatient followup with podiatry. Quality:SDOH Health Related Social Needs: No Data to Display PFSH All Active Problems (Updated 11/07/23 @ 11:24 by Fran Varner MD) Closed fracture of fifth toe of left foot (Acute) Acute oral pain (Acute) Jaw pain (Acute) Right carpal tunnel syndrome (Acute) S/P ECTR: 08/13/2020 Right wrist sprain (Acute) Sprain of forearm, right (Acute) Vitamin B12 deficiency (Acute) Acute pain of right wrist (Acute) Carpal tunnel syndrome (Acute) Gastric ulcer (Acute) Knee sprain (Acute) Knee contusion (Acute) Knee fracture (Acute) Bilateral kidney stones (Acute 11/04/15) Abdominal wall cellulitis (Acute) Constipation due to pain medication (Acute) Neuropathic pain (Acute) Abdominal pain (Acute) Patellofemoral syndrome, right (Acute) Right knee pain (Acute) History of hernia surgery (Chronic) Abdominal hernia (Acute) just above umbilicus Recurrent umbilical hernia with incarceration (Acute) Medical History Headache Phantosmia Hyperlipidemia Hair loss Radicular pain Smoker History of IBS History of prediabetes Low back pain Obesity Tobacco dependence Generalized anxiety disorder Myofascial pain syndrome Pain, joint, knee, left Vitamin B12 deficiency (non anemic) Vitamin D deficiency Peripheral neuropathy Diarrhea due to drug Postoperative seroma Hematuria Hiatal hernia IBS (irritable bowel syndrome) GERD (gastroesophageal reflux disease) Insomnia Prediabetes Bilateral lower extremity edema Asthma stable. no exacerbations for 1 yr. Hypertension Abdominal pain chronic RLQ pain that did not improve with ureteroscopy. LUQ pain. W/U at [facility]. Pt thinks that she has hiatal hernia. No evidence on imaging studies. 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 Surgical History Hx of esophagogastroduodenoscopy History of hernia repair Status post Molly fundoplication bone spur R foot. Ligation of fallopian tube Tooth extraction Family History Mother Diabetes Father Epilepsy Social History Smoking/Tobacco Use Status: Current every day Tobacco Type: e-cigarettes Smoking risk assessment performed?: Yes Alcohol Intake: never Drug use: Never Substance use type: does not use Housing: apartment Number of Children: 4 current occupation: Disabled Current gender identity: female What is your relationship status?: living with partner Panel score (0-1 are the most socially isolated patients): 1 Do you feel safe at home: Yes Do you feel safe in your relationship?: Yes Additional Social history: lives with boyfriend History History Para 0 Hx # Term Pregnancies Multiple births Hx # Pregnancies Ectopic pregnancies AB induced Hx Number of Living Children AB spontaneous
--- NOTE | 2023-11-07 10:39 | DI.RAD_ITS ---
Exam(s) XR TOE LT FIFTH EXAM: XR TOE LT FIFTH CLINICAL HISTORY: jammed, pain. TECHNIQUE: 2D digital imaging was performed. Three images were obtained. COMPARISON: CR XR FOOT LT COMPLETE from 12/02/2022 FINDINGS: BONES: There is an acute transverse oriented fracture through the proximal metaphysis of the proxima l phalanx of the left 5th toe. The fracture does not extend into the metatarsophalangeal joint. The distal fracture is significantly angulated dorsally. No bony destructive lesion is seen. JOINTS: No dislocation present. SOFT TISSUE: There is soft tissue swelling in the region of the 5th metatarsophalangeal joint. No ra diopaque foreign body is seen. IMPRESSION: Acute angulated fracture involving the proximal phalanx of the left 5th toe. DATA REPOSITORY: RADIATION DOSE DELIVERED:
[2023-11-07] MEDS: Acetaminophen 325 MG TAB 650 MG PO (10:44)
[2023-11-07 11:31] VITALS: BP 132/79; PULSE 65; RESP 16; O2SAT 98
== END 2023-11-07 11:46 | disposition home or self-care (01) ==
PROVIDERS: Emergency Provider Student in an Organized Health Care Education/Training Program; PCP Physician Assistant
DX: S92.512A Displaced fracture of proximal phalanx of left lesser toe(s), initial encounter for closed fracture (principal); W22.8XXA Striking against or struck by other objects, initial encounter
CPT/HCPCS: 99283; 73660

== ENCOUNTER → 2023-11-16 10:29 | Outpatient (BNVA) | payer MEDICARE, MEDICAID, SELFPAY | PROVIDERS: PCP Physician Assistant; Referring Provider Student in an Organized Health Care Education/Training Program; Visit Provider Nurse Practitioner Family | DX: M79.675 Pain in left toe(s) (principal) | CPT/HCPCS: NC OV ==

== ENCOUNTER → 2023-11-22 14:08 | Outpatient (BNVA) | payer MEDICARE, MEDICAID, SELFPAY ==
--- NOTE | 2024-01-11 15:05 | NUR.NOTE ---
Accessed patient chart to print provider note to be faxed to [facility] for billing purposes. Nursing Note:
== END ==
PROVIDERS: PCP Physician Assistant; Referring Provider Student in an Organized Health Care Education/Training Program; Visit Provider Podiatrist
DX: S92.512A Displaced fracture of proximal phalanx of left lesser toe(s), initial encounter for closed fracture (principal); W22.03XA Walked into furniture, initial encounter
CPT/HCPCS: 99203; 99213

== ENCOUNTER 2023-12-22 02:15 | Outpatient (CLI) | payer MEDICARE, MEDICAID, SELFPAY ==
--- NOTE | 2023-12-22 10:46 | DI.RAD_ITS ---
Exam(s) XR TOE LT FIFTH EXAM: XR TOE LT FIFTH CLINICAL HISTORY: F/U FX,? CONSOLIDATION,S92.502A,S90.32XA,CONTUSION LT FOOT. TECHNIQUE: 2D digital imaging was performed of the left toe. Three images were obtained. AP, obliq ue and lateral views were obtained. COMPARISON: CR XR TOE LT FIFTH from 11/07/2023 FINDINGS: BONES: There is again seen a fracture involving the proximal aspect of the proximal phalanx of the 5t h toe. Alignment appears similar compared to the prior examination. No bridging callus formation is seen at this time. No bony destructive lesion is seen. JOINTS: No dislocation present. SOFT TISSUE: Soft tissue swelling adjacent to the 5th metatarsophalangeal joint. IMPRESSION: Stable alignment of the fracture of the proximal phalanx of the 5th toe with associated soft tissue s welling. DATA REPOSITORY: RADIATION DOSE DELIVERED:
== END 2023-12-22 02:35 ==
PROVIDERS: PCP Physician Assistant; Visit Provider Podiatrist
DX: S92.512D Displaced fracture of proximal phalanx of left lesser toe(s), subsequent encounter for fracture with routine healing (principal); S90.32XD Contusion of left foot, subsequent encounter; S92.502D Displaced unspecified fracture of left lesser toe(s), subsequent encounter for fracture with routine healing
CPT/HCPCS: 73660

== ENCOUNTER 2024-01-31 01:38 | Outpatient (CLI) | payer MEDICARE, MEDICAID, SELFPAY ==
--- NOTE | 2024-01-31 07:23 | DI.RAD_ITS ---
Exam(s) XR FOOT LT COMPLETE EXAM: XR FOOT LT COMPLETE CLINICAL HISTORY: F/U Fx,S92.512A. TECHNIQUE: 2D digital imaging was performed of the left foot. Three images were obtained. AP, obli que and lateral views were obtained. COMPARISON: CR XR FOOT LT COMPLETE from 12/02/2022 CR XR TOE LT FIFTH from 12/22/2023 FINDINGS: BONES: There has been no change in alignment of the fracture involving the proximal phalanx of the 5t h toe. The fracture line is still visualized. No bony destructive lesion is seen. Unchanged chronic deformity involving the head of the 5th metatarsal bone. JOINTS: No dislocation present. SOFT TISSUE: Soft tissue swelling persists around the 5th MTP joint. IMPRESSION: Stable alignment of the fracture involving the proximal phalanx of the 5th toe. There is persistent associated soft tissue swelling. DATA REPOSITORY: RADIATION DOSE DELIVERED:
== END 2024-01-31 01:58 ==
PROVIDERS: PCP Physician Assistant; Visit Provider Podiatrist
DX: S92.512D Displaced fracture of proximal phalanx of left lesser toe(s), subsequent encounter for fracture with routine healing (principal); X58.XXXD Exposure to other specified factors, subsequent encounter
CPT/HCPCS: 73630

== ENCOUNTER → 2024-02-02 09:07 | Outpatient (BNVA) | payer MEDICARE, MEDICAID, SELFPAY | PROVIDERS: PCP Physician Assistant; Referring Provider Physician Assistant; Visit Provider Podiatrist | DX: S92.512A Displaced fracture of proximal phalanx of left lesser toe(s), initial encounter for closed fracture (principal); S92.502A Displaced unspecified fracture of left lesser toe(s), initial encounter for closed fracture; S90.32XA Contusion of left foot, initial encounter; L60.3 Nail dystrophy; M79.672 Pain in left foot; M86.9 Osteomyelitis, unspecified; X58.XXXA Exposure to other specified factors, initial encounter | CPT/HCPCS: 99215 ==

== ENCOUNTER 2024-02-03 12:57 | Outpatient (CLI) | payer MEDICARE, MEDICAID, SELFPAY ==
[2024-02-03 10:40] LABS: Abs Immature Grans 0.02 10^3/uL (0.0-0.06); Absolute Basophil Count 0.07 10^3/uL (0.0-0.2); Absolute Eosinophil Count 0.09 10^3/uL (0.0-0.7); Absolute Lymphocyte Count 1.89 10^3/uL (1.2-3.4); Absolute Monocyte Count 0.63 10^3/uL (0.1-0.8); Absolute Neutrophil Count 4.14 10^3/uL (1.2-6.7); Eosinophils % 1.3 %; HCT 34.8 % (36.0-46.0); HGB 10.5 g/dL (11.2-15.7); Immature Grans % 0.3 %; Lymphocytes % 27.6 %; MCH 21.7 pg (27.0-33.0); MCHC 30.2 % (32.0-36.0); MCV 72 fL (80-95); MPV 10.8 fL (8.0-11.0); Monocytes % 9.2 %; Neutrophils % 60.6 %; Platelet Count 409 10^3/uL (130-400); RBC 4.84 10^6/uL (3.93-5.22); RDW 17.1 % (11.7-14.6); RDW-SD 44.4 fL; WBC 6.84 10^3/uL (4.4-10.8)
[2024-02-03 10:44] LABS: ESR 13 mm/hr (0-20)
[2024-02-03 11:08] LABS: Diff Comment RBC Morph Reviewed; Microcytosis 2+; Poikilocytes 1+
[2024-02-03 11:35] LABS: ALT 16 U/L (14-59); AST 10 U/L (15-37); Albumin 3.6 g/dL (3.4-5.0); Alkaline Phosphatase 84 U/L (46-116); BUN 11 mg/dL (7-18); Bilirubin, Total 0.46 mg/dL (0.2-1.0); CREATININE 0.9 mg/dL (0.55-1.02); Calcium 9.1 mg/dL (8.5-10.1); Chloride 111 mmol/L (98-107); Estimated GFR 80.34 (mL/min/1.73m2); Glucose 113 mg/dL (74-106); Potassium 3.5 mmol/L (3.5-5.1); Sodium 144 mmol/L (136-145); Total Protein 6.9 g/dL (6.4-8.2)
[2024-02-03 11:48] LABS: C-Reactive Protein < 0.50 mg/dL (<or=0.5)
--- OUTSIDE RECORDS SUMMARY | 2024-02-03 13:02 | XMS_ITS ---
Author Organization Unknown Address [address] [place] [phone] Phone Care Team Providers Care Senior Software Analyst Name Role Phone DAIANA WILL Attending Unavailable PADILLA FLANAGAN Primary Unavailable Social History Type Status Start Date End Date Code Code Syst em Smoking History Current every day smoker [id number] SNOMED CT Sex Female Hospital Discharge Instructions [...] Code System No Known Allergies Moderate Active 580369952 SN OMED-CT Plan of Treatment No Data Found Encounters Encounter Diagnosis Start Date Code Code Sys tem Personal history of traumatic brain injury 11/24/2022 SNOMED-CT Personal Care Team Section Performer Name Performer Role Active Date Inactive Da italia
--- OUTSIDE RECORDS SUMMARY | 2024-02-03 13:02 | XMS_ITS | Encounter Summary ---
Author Organization [place] [address] Care Team Providers Care Bilingual Teacher Aide Name Role Phone Talisha Treviño MD Primary Care Provider [phone] Encounter Details Date Type Department Care Team (Late st Contact Info) Description 07/23/2019 Telephone [place] [phone] Geri Avalos Social History Tobacco Use Types [...] Contacted patient to schedule a gif with John (recall) but the patient stated that she still has not recovered from surgery and would like to wait to schedule. The patient said that she would contact the office when she was healed. documented in this encounter Plan of Treatment Not on file documented as of this encounter Visit Diagnoses Not on filedocumented in this encounter Care Teams Bilingual Teacher Aide Relationship Specialty Start Date End Date Talisha Treviño MD [address] [place] [address] PCP - General Family Medicine 12/05/17 10/27/20 documented as of this encounter
--- OUTSIDE RECORDS SUMMARY | 2024-02-03 13:02 | XMS_ITS | Encounter Summary ---
Author Organization [facility] Address [facility] [place] [address] Care Team Providers Care Egg Gatherer Name Role Phone Talisha Treviño MD Primary Care Provider [phone] Reason for Visit * Reason Onset Date Comments Medication Refill Medication Refill 07/02/2019 Encounter Details Date Type Department Care Team (Late st Contact Info) Description 06/28/2019 Refill [place] [address] Margaret Rios PA [facility] [place] [address] Social History Tobacco Use Types Packs/Day Years [...] on filedocumented in this encounter Care Teams Egg Gatherer Relationship Specialty Start Date End Date Talisha Treviño MD [address] [place] [address] PCP - General Family Medicine 12/05/17 10/27/20 documented as of this encounter
--- OUTSIDE RECORDS SUMMARY | 2024-02-03 13:02 | XMS_ITS | Encounter Summary ---
Author Organization [facility] [address] Care Team Providers Care Worm Raiser Name Role Phone Caleb Ballard Primary Care Provider [phone] Reason for Referral * Consultation (Routine) - Closed Specialty Diagnoses / Procedures Referred By Dayan parker Referred To Contact Neurology Diagnoses Memory loss Caleb Ballard PA [address] [place] [address] [facility] [address] [place] [id number] Referral ID Status Reason Start Date Expiration Date V isits Requested Visits Authorized [id number] Closed Consult, Test & Treat PCP Updated and/or Approved 11/01/2022 11/02/2023 12 12 Encounter Details Date Type Department Care Team (Late st Contact Info) Description 11/03/2022 Transcribe Orders eDH Incoming Referrals [phone] Caleb Ballard PA [address] [place] [address] Memory loss Social History Tobacco [...] loss documented in this encounter Care Teams Worm Raiser Relationship Specialty Start Date End Date Caleb Ballard PA [address] [place] [address] PCP - General Internal Medicine 10/28/20 documented as of this encounter
--- OUTSIDE RECORDS SUMMARY | 2024-02-03 13:02 | XMS_ITS | Encounter Summary ---
Author Organization [facility] [place] [address] Care Team Providers Care Lugger Name Role Phone Talisha Treviño MD Primary Care Provider [phone] Encounter Details Date Type Department Care Team (Latest Contact Info) Description 12/25/2019 1:33 PM EST - 12/25/2019 11:59 PM EST [place] [address] Discharge Disposition: Home Social History Tobacco Use [...] EST) SARS-CoV-2 RNA Not Detected Not Detected [facility] Comment: This result should be [...] diagnosis of COVID-19 is performed using the [employer] Alinity m SARS-CoV-2 Assay as authorized by the FDA Emergency Use Authorization (EUA). This EUA assay is intended for In-vitro Diagnostic (IVD) use with respiratory specimens such as nasopharyngeal swabs collected from individuals during the acute phase of infection. This assay is performed based on the instructions for use provided by [employer] and additional guidance provided by CDC and FDA. Testing is performed in the [facility] within the Department of Pathology and Laboratory Medicine at [facility], certified under the Clinical Laboratory [...] fact sheets at the following FDA website: https://www.fda.gov/medical-devices/yasywsddyja-oeahjyn-4779-rolpz-55-jboiosrfl- use-a ozkomxqpappvn-yacdwgq-wnldzrt/xjofc-waykmaqslqn-ecea SARS-CoV-2 RNA Source Nasal [facility] Specimen from nose (specimen) Other / Unknown 12/25/2019 8:48 AM EST 12/26/2019 1:09 AM EST Narrative Resulting Agency Comment Spec In Lab Caitlin Lopez MD MOLECULAR ORDERABLES Performing Organization Address City/State/[facility] Co de Phone Number [facility] [place] [address] documented in this encounter Visit Diagnoses Not on filedocumented in this encounter Care Teams Lugger Relationship Specialty Start Date End Date Talisha Treviño MD [address] [place] [address] PCP - General Family Medicine 12/05/17 10/27/20 documented as of this encounter
--- OUTSIDE RECORDS SUMMARY | 2024-02-03 13:02 | XMS_ITS | Encounter Summary ---
Author Organization [facility] [place] [address] Care Team Providers Care Peanut Picker Name Role Phone Talisha Treviño MD Primary Care Provider [phone] Encounter Details Date Type Department Care Team (Late st Contact Info) Description 07/26/2019 Tele[place] [phone] José Feldman Social History Tobacco Use Types [...] on filedocumented in this encounter Care Teams Peanut Picker Relationship Specialty Start Date End Date Talisha Treviño MD [address] [place] [address] PCP - General Family Medicine 12/05/17 10/27/20 documented as of this encounter
--- OUTSIDE RECORDS SUMMARY | 2024-02-03 13:02 | XMS_ITS | Clinical Summary ---
Author Organization [facility] Address [facility] [place] [address] Care Team Providers Care Billet Heater Operator Name Role Phone Caleb Ballard Primary Care Provider [phone] Allergies Active Allergy Reactions Criticality Noted Date [...] year) with FIT yearly 1978 Sigmoidoscopy 1978 HIV screen 1996 Hepatitis C Screening 1996 Lipid Screening 1996 Hepatitis B vaccine (0-59 yr s) (1) 1997 Tetanus/Diphtheria/Pertussis Vaccines (1 - Tdap) 1997 HPV test 2008 PAP Smear 2008 Breast Cancer Share Decision Needed 2018 Breast Cancer screening 2018 Covid-19 Vaccine (2023-2 5 season) 2023 Influenza (Flu) vaccine (1 o f 1 - Influenza standard series) 10/16/2023 Diabetes Screening (HgbA1C o r Glucose) Discontinued 11/14/2020, 06/28/2019, 06/27/2019, Additional history exists Procedures Procedure Name Priority Date/Time Associated Diagnosis Comments COMPREHENSIVE METABOLIC PANEL Routine 11/14/2020 11:25 AM EDT Microcytic anemia from Last 3 Months or Most Recently Relevant to Health Maintenance Results * (ABNORMAL) Comprehensive metabolic panel (non-fasting) (11/14/2020 11:25 AM EDT) Glucose 145 65 - 199 mg/dL [facility] Comment:Diabetes: >=200 mg/d L plus symptoms Blood Urea Nitrogen 13 8 - 18 mg/dL [facility] Creatinine 1.03 0.70 - 1.20 mg/dL [facility] Sodium 137 135 - 145 mmol/L [facility] Potassium 3.3(L) 3.5 - 5.0 mmol/L [facility] Comment: Please note: ??Patients with WBC >100,000 may have falsely elevated Potassium levels. ??For accurate Potassium quantification in these patients send serum separator tube (gold top) for subsequent determinations. ??Contact the Clinical Chemistry Laboratory if there are any questions. Chloride 107 98 - 107 mmol/L [facility] Carbon Dioxide 17(L) 22 - 31 mmol/L [facility] Anion Gap 13 5 - 15 mmol/L [facility] Calcium 9.2 8.5 - 10.5 mg/dL [facility] Protein, Total 7.3 6.1 - 8.0 g/dL [facility] Albumin 4.3 3.2 - 5.2 g/dL [facility] Aspartate Aminotransferase 14 0 - 30 unit/L [facility] Alanine Aminotransferase 13 0 - 30 unit/L [facility] Alkaline Phosphatase 119(H) 35 - 105 unit/L [facility] Bilirubin, Total 0.2 0.2 - 1.3 mg/dL [facility] Est Glomerular Filtration Rate 67 >=60 mL/min/1. 73 m?? [facility] Comment: This patient? s estimated [...] Lab Cisco Negro MD CHEMISTRY ORDERABL ES [facility] [place] [address] from Last 3 Months or Most Recently Relevant to Health Maintenance Advance Directives Documents on File Type Date Recorded Patient Fuel Cell Technician Expl bia Personal Fuel Cell Technician 04/22/2017 8:20 AM suad hunter Personal Fuel Cell Technician 04/22/2017 8:20 AM monica riley Personal Fuel Cell Technician 04/22/2017 8:20 AM suman suarez * Full Code (Latest Code Status on File) Date Activated Date Inactivated Comments 06/25/2019 2:12 PM 06/28/2019 6:26 PM Question Answer Comments Does patient have capacity to make decision: Yes * Full Code Date Activated Date Inactivated Comments 09/09/2016 3:54 PM 09/11/2016 3:19 PM Question Answer Comments Does patient have capacity to make decision: Yes Care Teams Billet Heater Operator Relationship Specialty Start Date End Date Caleb Ballard PA [address] [place] [address] PCP - General Internal Medicine 10/28/20
--- OUTSIDE RECORDS SUMMARY | 2024-02-03 13:02 | XMS_ITS | Encounter Summary ---
Author Organization [facility] Address [facility] [address] [address] Care Team Providers Care Sales Coach Name Role Phone Caleb Ballard Primary Care Provider [phone] Reason for Visit * Consultation (Routine) - Closed Specialty Diagnoses / Procedures Referred By Dayan parker Referred To Contact Hematology and Oncology Diagnoses Anemia, unspecified Caleb Ballard PA [address] [facility] [address] [place] [address] [facility] Hem Onc [address] [place] [address] Referral ID Status Reason Start Date Expiration Date V isits Requested Visits Authorized [id number] Closed Consult, Test & Treat Connection Center PCP Updated and/or Approved 10/21/2020 04/20/2021 6 6 Encounter Details Date Type Department Care Team (Late st Contact Info) Description 11/14/2020 10:00 AM EDT Office Visit Hematology [place] [phone] Cisco Negro MD [facility] [address] [place] [address] Jovani Andino MD Microcytic anemia (Primary Dx) Social History Tobacco [...] 18.1) performed by César Barron MD at [facility] OR ??? PRO LAP, ESOPHAGUS, OTHER PROC N/A 06/25/2019 LAPAROSCOPIC REVISION OF MOLLY FUNDOPLASTY (WRVU *) performed by César Barron MD at [facility] OR ??? PRO LAP, ESOPHAGUS, OTHER PROC N/A 06/25/2019 LAPAROSCOPIC TAKEDOWN PREVIOUS MOLLY (WRVU *) performed by César Barron MD at [facility] OR ??? PRO UPPER GI ENDOSCOPY, BIOPSY N/A 07/30/2016 EGD WITH BIOPSY (WRVU 2.49) performed by Jovani Treviño MD at [facility] ENDOSCOPY ??? PRO UPPER GI ENDOSCOPY, DIAGNOSTIC N/A 06/25/2019 EGD, UPPER GI ENDOSCOPY performed by César Barron MD at [facility] OR ??? UMBILICAL HERNIA REPAIR FAMILY HISTORY- [...] with PMH GERD, erosive gastritis, and vitamin [id number] presenting for evaluation of anemia. #Microcytic anemia [...] time. Jovani Andino MD Hematology/Oncology Fellow Pager: [phone] [facility] * Cisco Negro MD - 11/14/2020 10:00 AM EDT Images from the original note were not included. N [facility] HEMATOLOGY AND ONCOLOGY AT [facility] [id number] Date: 11/14/2020 Patient Name: Ruby Sprague : 1980 Diagnosis: ____Iron deficiency anemia Ref[facility] to [facility] Orders: Venofer 300mg IV weekly x 4 Signature: ___Cisco Negro MD beeper # ____[id number] * Cisco Negro MD - 11/14/2020 10:00 [...] MOISE. Will replete with IV iron in [facility] Pt unsure she will have ride to [...] some social barriers. Cisco Negro MD Pager [phone] documented in this encounter Plan of Treatment Not on file documented as of this encounter Results * Direct antiglobulin test (11/14/2020 11:26 AM EDT) SUN Poly Negative [facility] Blood 11/14/2020 11:2 6 AM EDT 11/14/2020 11:36 AM EDT Narrative Resulting Agency Comment Spec In Lab Cisco Negro MD BLOOD BANK LAB ORD ERABLES [facility] [place] [address] * Protein Electrophoresis, serum (11/14/2020 11:25 AM EDT) Total Prot Electrophoresis 6.8 6.1 - 8.0 g/dL [facility] Albumin Electrophoresis 4.41 3.60 - 6.00 g/dL [facility] Alpha 1 Globulin 0.17 0.10 - 0.30 g/dL [facility] Alpha 2 Globulin 0.69 0.40 - 0.90 g/dL [facility] Beta Globulin 0.78 0.50 - 1.00 g/dL [facility] Gamma Globulin 0.74 0.50 - 1.30 g/dL [facility] M1 Band None Detected None Detected [facility] Blood 11/14/2020 11:2 5 AM EDT 11/14/2020 11:42 AM EDT Narrative Resulting Agency Comment Spec In Lab Cisco Negro MD CHEMISTRY ORDERABL ES Performing Organization Address [facility] Co de Phone Number [facility] [place] [address] * Free Light Chains, Serum (11/14/2020 11:25 AM EDT) [place] Free Light Chain 1.82 0.72 - 2.75 mg/dL [facility] Lambda Free Light Chain 2.04 0.57 - 2.15 mg/dL [facility] [place]/Lambda FLC Ratio 0.8922 0.4000 - 2.5800 [facility] Blood 11/14/2020 11:2 5 AM EDT 11/14/2020 11:42 AM EDT Narrative Resulting Agency Comment Spec In Lab Cisco Negro MD CHEMISTRY ORDERABL ES Performing Organization Address [facility] Co de Phone Number [facility] [place] [address] * Immunoglobulins, Quantitative (11/14/2020 11:25 AM EDT) Immunoglobulin G 980 700 - 1,600 mg/dL [facility] Comment: Pediatric Reference Intervals obtained from the Caliper Reference Interval project. http://www.sickkids.ca/caliperproject/index.html IgA 191 70 - 400 mg/dL [facility] IgM 108 40 - 230 mg/dL [facility] Blood 11/14/2020 11:2 5 AM EDT 11/14/2020 11:42 AM EDT Narrative Resulting Agency Comment Spec In Lab Cisco Negro MD CHEMISTRY ORDERABL ES Performing Organization Address [facility]/ZIP Co de Phone Number [facility] [place] [address] * (ABNORMAL) Beta 2 Microglobulin, serum (11/14/2020 11:25 AM EDT) Beta 2 Microglobulin 2.3(H) 0.8 - 2.2 mg/L [facility] Blood 11/14/2020 11:2 5 AM EDT 11/14/2020 11:42 AM EDT Narrative Resulting Agency Comment Spec In Lab Cisco Negro MD CHEMISTRY ORDERABL ES Performing Organization Address [facility] Co de Phone Number [facility] [place] [address] * Haptoglobin (11/14/2020 11:25 AM EDT) Haptoglobin 200 30 - 200 mg/dL [facility] Comment: Haptoglobin concentrations in newborns is low to undetectable; however, adult concentrations are usually attained by 4 months of age. ??No sex-related differences for haptoglobin have been detected. Blood 11/14/2020 11:2 5 AM EDT 11/14/2020 11:42 AM EDT Narrative Resulting Agency Comment Spec In Lab Cisco Negro MD CHEMISTRY ORDERABL ES Performing Organization Address [facility]/ZIP Co de Phone Number [facility] [place] [address] * (ABNORMAL) Ferritin (11/14/2020 11:25 AM EDT) Ferritin 7(L) 15 - 150 ng/mL [facility] Comment: Pediatric reference ranges not verified at [facility], interpret with caution. Reference ranges for females greater than 50 years of age approach values for men, i.e., 30-400 ng/mL. Blood 11/14/2020 11:2 5 AM EDT 11/14/2020 11:42 AM EDT Narrative Resulting Agency Comment Spec In Lab Cisco Negro MD CHEMISTRY ORDERABL ES Performing Organization Address [facility]/ZIP Co de Phone Number [facility] [place] [address] * (ABNORMAL) Folate, serum (11/14/2020 11:25 AM EDT) Folate 4.6(L) 4.8 - 24.2 ng/mL [facility] Blood 11/14/2020 11:2 5 AM EDT 11/14/2020 11:42 AM EDT Narrative Resulting Agency Comment Spec In Lab Cisco Negro MD CHEMISTRY ORDERABL ES Performing Organization Address [facility]/ZIP Co de Phone Number [facility] [place] [address] * Vitamin B12 (11/14/2020 11:25 AM EDT) Vitamin B12 242 232 - 1,245 pg/mL [facility] Blood 11/14/2020 11:2 5 AM EDT 11/14/2020 11:42 AM EDT Narrative Resulting Agency Comment Spec In Lab Cisco Negro MD CHEMISTRY ORDERABL ES Performing Organization Address [facility] Co de Phone Number [facility] [place] [address] * (ABNORMAL) Reticulocyte Count (11/14/2020 11:25 AM EDT) Reticulocyte % 1.0 0.7 - 2.5 % [facility] Retic Abs # 0.050 0.020 - 0.110 x10(6)/mcL [facility] Immature Retic% 21.9(H) 0.5 - 13.8 % [facility] Reticulated Hgb 23.9(L) 29.8 - 39.4 pg [facility] Blood 11/14/2020 11:2 5 AM EDT 11/14/2020 11:42 AM EDT Narrative Resulting Agency Comment Spec In Lab Cisco Negro MD HEMATOLOGY ORDERAB LES Performing Organization Address [facility] Co de Phone Number [facility] [place] [address] * Peripheral Smear Review (11/14/2020 11:25 AM EDT) Peripheral Smear Review See Comment [facility] Comment: When completed by the Pathologist, report [id number] will display under Hematopathology Reports. Blood 11/14/2020 11:2 5 AM EDT 11/14/2020 11:42 AM EDT Narrative Resulting Agency Comment Spec In Lab Cisco Negro MD HEMATOLOGY ORDERAB LES Performing Organization Address [facility] Co de Phone Number [facility] [place] [address] * Lactate Dehydrogenase (11/14/2020 11:25 AM EDT) Lactate Dehydrogenase 149 110 - 220 unit/L [facility] Blood 11/14/2020 11:2 5 AM EDT 11/14/2020 11:42 AM EDT Narrative Resulting Agency Comment Spec In Lab Cisco Negro MD CHEMISTRY ORDERABL ES Performing Organization Address [facility] Co de Phone Number [facility] [place] [address] * (ABNORMAL) Comprehensive metabolic panel (non-fasting) (11/14/2020 [...] MD CHEMISTRY ORDERABL ES Performing Organization Address [facility] Co de Phone Number [facility] [place] [address] * (ABNORMAL) Iron and TIBC (11/14/2020 11:25 AM EDT) Iron 11(L) 30 - 150 mcg/dL [facility] TIBC 400 250 - 450 mcg/dL [facility] Iron Saturation 3(L) 20 - 50 % [facility] Blood 11/14/2020 11:2 5 AM EDT 11/14/2020 11:42 AM EDT Narrative Resulting Agency Comment Spec In Lab Cisco Negro MD CHEMISTRY ORDERABL ES Performing Organization Address [facility] Co de Phone Number [facility] [place] [address] documented in this encounter Visit Diagnoses Diagnosis Microcytic anemia- Primary Iron deficiency anemia, unspecified documented in this encounter Care Teams Sales Coach Relationship Specialty Start Date End Date Caleb Ballard PA [address] [place] [address] PCP - General Internal Medicine 10/28/20 documented as of this encounter
--- OUTSIDE RECORDS SUMMARY | 2024-02-03 13:02 | XMS_ITS | Encounter Summary ---
Author Organization [facility] [place] [address] Care Team Providers Care Equipment Installer Name Role Phone Caleb Ballard Primary Care Provider [phone] Encounter Details Date Type Department Care Team (Late st Contact Info) Description 11/18/2020 Telephone [place] [phone] Katja Mc, JANET Social History Tobacco Use Types Packs/Day Years [...] Miscellaneous Notes * Telephone Encounter - Katja Mc RN - 11/18/2020 3:07 PM EDT Call placed to Ruby to remind her to pick pack worker prescription for Folic Acid at the [facility] pharmacy in [facility]. In addition encouraged Ruby to continue taking vitamin B12. Instructed her that she will be contacted by [facility] for iron infusions. She wants to [...] on filedocumented in this encounter Care Teams Equipment Installer Relationship Specialty Start Date End Date Caleb Ballard PA [address] [place] [address] PCP - General Internal Medicine 10/28/20 documented as of this encounter
--- OUTSIDE RECORDS SUMMARY | 2024-02-03 13:02 | XMS_ITS | Encounter Summary ---
Author Organization [facility] [place] [address] Care Team Providers Care Staff Occupational Therapist Name Role Phone Talisha Treviño MD Primary Care Provider Encounter Details Date Type Department Care Team (Late st Contact Info) Description 07/06/2019 Telephone [place] [phone] Poonam Palomino, RN Social History Tobacco Use [...] I let her know there is someone post tronic machine operator at all times. She notes she thinks [...] and reformed a fundoplication over a 58 [place] bougie there were no complications. documented in this encounter Plan of Treatment Not on file documented as of this encounter Visit Diagnoses Not on filedocumented in this encounter Care Teams Staff Occupational Therapist Relationship Specialty Start Date End Date Talisha Treviño MD [address] [place] [address] PCP - General Family Medicine 12/05/17 10/27/20 documented as of this encounter
--- OUTSIDE RECORDS SUMMARY | 2024-02-03 13:02 | XMS_ITS | Encounter Summary ---
Author Organization [facility] [place] [address] Care Team Providers Care Merchandise Manager Name Role Phone Talisha Treviño MD Primary Care Provider [phone] Encounter Details Date Type Department Care Team (Late st Contact Info) Description 07/13/2019 Telephone [place] [phone] Poonam Palomino RN Social History Tobacco Use [...] discharge paperwork. Patient Name: Ruby Sprague : [id number] MR#: [id number] Case Date: 06/25/2019 Surgeon: Surgeon(s) and Role: [...] post Molly diet, as instructed by the public works supervisor in the hospital for aperiod of approximately [...] on filedocumented in this encounter Care Teams Merchandise Manager Relationship Specialty Start Date End Date Talisha Treviño MD [address] [place] [address] PCP - General Family Medicine 12/05/17 10/27/20 documented as of this encounter
--- OUTSIDE RECORDS SUMMARY | 2024-02-03 13:02 | XMS_ITS | Encounter Summary ---
Author Organization [facility] [place] [address] Care Team Providers Care Group Sales Manager Name Role Phone Talisha Treviño MD Primary Care Provider [phone] Encounter Details Date Type Department Care Team (Late st Contact Info) Description 07/02/2019 Telephone [place] [phone] Lakshmi Duckworth RN Social History Tobacco Use [...] filedocumented in this encounter Care Teams Group Sales Manager Relationship Specialty Start Date End Date Talisha Treviño MD [address] [place] [address] PCP - General Family Medicine 12/05/17 10/27/20 documented as of this encounter
--- OUTSIDE RECORDS SUMMARY | 2024-02-03 13:02 | XMS_ITS | Encounter Summary ---
Author Organization [facility] Address [facility] [address] [place] [address] Care Team Providers Care Supervisor Agricultural Education Name Role Phone Caleb Ballard Primary Care Provider [phone] Encounter Details Date Type Department Care Team (Late st Contact Info) Description 11/18/2020 Orders Only [place]ology [place] [address] Cisco Negro MD [facility] [address] [place] [address] Social History Tobacco Use Types Packs/Day Years [...] on filedocumented in this encounter Care Teams Supervisor Agricultural Education Relationship Specialty Start Date End Date Caleb Ballard PA [address] [place], [place] [id number] PCP - General Internal Medicine 10/28/20 documented as of this encounter
--- OUTSIDE RECORDS SUMMARY | 2024-02-03 13:02 | XMS_ITS | Encounter Summary ---
Author Organization [facility] [place] [address] Care Team Providers Care Psychiatry Adult Physician Name Role Phone Caleb Ballard Primary Care Provider [phone] Encounter Details Date Type Department Care Team (Latest Contact Info) Description 11/14/2020 11:00 AM EDT - 11/14/2020 11:59 PM EDT Hospital Encounter [place]ology [place] [address] Microcytic anemia Discharge Disposition: Home Social History [...] (11/14/2020 12:14 PM EDT) Smear Review Report [id number] ? Location: The signing pathologist has (i) examined the relevant preparation(s) for the specimen(s) and (ii) rendered or confirmed the diagnosis(es). . ? Smear Review DIAGNOSIS Microcytic anemia c/w iron defy Electronically signed by: ?Allison SOLORZANO, Obey Verified: ??11/14/2020 17:53 ??Hematopatholog ist Performed at: ??-[facility]. [facility] [place], [place], [place] DISCUSSION Reticulated Hemoglobin ( RET-HE test offered under reticulocyte count) is a more sensitive indicator of current iron stores and at 23.9 supports the finding . ADDITIONAL STUDIES See e-DH: LAB and PATHOLOGY, Lab Results, CBC and manual differential. CLINICAL INFORMATION . [facility] 11/14/2020 12:1 4 PM EDT Jovani Andino MD HEMATOLOGY ORDERABLE S Performing Organization Address [facility] Co de Phone Number [facility] [place] [address] * Type and Screen Validity (11/14/2020 11:26 AM EDT) T&S only valid at [facility]ORATORY Comment:This Type and Screen result is only valid at the [facility] Blood 11/14/2020 11:2 6 AM EDT 11/14/2020 11:36 AM EDT Narrative Resulting Agency Comment Spec In Lab Jovani Andino MD BLOOD BANK LAB ORDER ROSENDO Performing Organization Address [facility]/ZIP Co de Phone Number [facility] [place] [address] * ABORH Recheck Status (11/14/2020 11:26 AM EDT) ABORH Type Recheck Completed [facility] Blood 11/14/2020 11:2 6 AM EDT 11/14/2020 11:36 AM EDT Narrative Resulting Agency Comment Spec In Lab Jovani Andino MD BLOOD BANK LAB ORDER ROSENDO [facility] [place] [address] * Antibody screen (11/14/2020 11:26 AM EDT) Ab Screen Interp Negative [facility] Expires at [id number] on: 11/17/2020 [facility] Blood 11/14/2020 11:2 6 AM EDT 11/14/2020 11:36 AM EDT Narrative Resulting Agency Comment Spec In Lab Jovani Andino MD BLOOD BANK LAB ORDER ROSENDO [facility] [place] [address] * ABO/Rh Typing (11/14/2020 11:26 AM EDT) ABORH Type A Pos [facility] Blood 11/14/2020 11:2 6 AM EDT 11/14/2020 11:36 AM EDT Narrative Resulting Agency Comment Spec In Lab Jovani Andino MD BLOOD BANK LAB ORDER ROSENDO [facility] [place] [address] * Direct antiglobulin test (11/14/2020 11:26 AM EDT) SUN Poly Negative [facility] Blood 11/14/2020 11:2 6 AM EDT 11/14/2020 11:36 AM EDT Narrative Resulting Agency Comment Spec In Lab Cisco Negro MD BLOOD BANK LAB ORD ERABLES [facility] [place] [address] * Scan, Peripheral Blood (11/14/2020 11:25 AM EDT) Plat estimate Normal [facility] RBC Morphology Abnormal [facility] Microcyte 6-10 /HPF [facility] Hypochromia Slight [facility] Ovalocytes 1-5 /HPF [facility] Bernardo Cells 1-5 /HPF [facility] Blood 11/14/2020 11:2 5 AM EDT 11/14/2020 11:42 AM EDT Narrative Resulting Agency Comment Spec In Lab Jovani Adnino MD HEMATOLOGY ORDERABLE S [facility] [place] [address] * Differential, Automated (11/14/2020 11:25 AM EDT) Pathologist [facility] Neutrophil % 55.9 % [facility] Neutrophil Absolute 4.39 1.70 - 6.10 x10(3)/[facility]AT[facility] Lymph % 30.7 % [facility] Lymphocytes Abs 2.4 0.9 - 3.2 x10(3)/[facility] Monocyte % 9.6 % [facility] Monocyte Abs 0.8 0.3 - 0.9 x10(3)/[facility] Eos % 2.7 % [facility] Eosinophils Abs 0.2 0.0 - 0.4 x10(3)/[facility] Basophil % 1.0 % [facility] Baso Absolute 0.1 0.0 - 0.1 x10(3)/[facility] Immature Gran % 0.10 % [facility] Comment: Immature granulocytes(IG's)percentage and absolute count will include metamyelocytes, myelocytes, and promyelocytes. Blood smears from CBCs yielding IG's will be scanned manually for concordance. If this scan disagrees with the automated IG or if promyelocytes are noted, a manual differential will be performed. Immature Gran Absolute 0.01 0.00 - 0.04 x10(3)/mcL [facility] Blood 11/14/2020 11:2 5 AM EDT 11/14/2020 11:42 AM EDT Narrative Resulting Agency Comment Spec In Lab Jovani Andino MD HEMATOLOGY ORDERABLE S [facility] [place] [address] * (ABNORMAL) Hemogram (11/14/2020 11:25 AM EDT) White Blood Cell 7.8 4.0 - 9.5 x10(3)/[facility] Red Blood Cell 5.06 4.00 - 5.21 x10(6)/[facility] Hemoglobin 10.9(L) 11.7 - 15.5 g/dL [facility] Hematocrit 35.2(L) 35.7 - 45.8 % [facility] Mean Cell Volume 69.6(L) 82.6 - 94.4 fL [facility] Mean Cell Hemoglobin 21.5(L) 27.1 - 32.0 pg [facility] Mean Cell Hemoglobin Concentration 31.0(L) 31.7 - 35.0 g/dL [facility] Platelet 388(H) 145 - 357 x10(3)/[facility]ATORY RDW Standard Deviation 45.1 37.0 - 46.0 [facility] RDW coefficient of variation 18.7(H) 11.5 - 14.1 % [facility] Mean Platelet Volume 11.5 7.6 - 12.9 fL [facility] NRBC% auto 0.0 % [facility] NRBC Absolute 0.000 0.000 - 0.000 x10(3)/ L [facility] Blood 11/14/2020 11:2 5 AM EDT 11/14/2020 11:42 AM EDT Narrative Resulting Agency Comment Spec In Lab Jovani Andino MD HEMATOLOGY ORDERABLE S Performing Organization Address City/[facility]/ZIP Co de Phone Number [facility] [place] [address] * (ABNORMAL) Iron and TIBC (11/14/2020 11:25 AM EDT) Iron 11(L) 30 - 150 mcg/dL [facility] TIBC 400 250 - 450 mcg/dL [facility] Iron Saturation 3(L) 20 - 50 % [facility] Blood 11/14/2020 11:2 5 AM EDT 11/14/2020 11:42 AM EDT Narrative Resulting Agency Comment Spec In Lab Cisco Negro MD CHEMISTRY ORDERABL ES Performing Organization Address [facility] Co de Phone Number [facility] [place] [address] * (ABNORMAL) Comprehensive metabolic panel (non-fasting) (11/14/2020 11:25 AM EDT) [facility] Glucose 145 65 - 199 mg/dL [facility] Comment:Diabetes: >=200 mg/d L plus symptoms Blood Urea Nitrogen 13 8 - 18 mg/dL [facility] Creatinine 1.03 0.70 - 1.20 mg/dL [facility] Sodium 137 135 - 145 mmol/L [facility] Potassium 3.3(L) 3.5 - 5.0 mmol/L [facility] Comment: Please note: ??Patients with WBC >100,000 may have falsely elevated Potassium levels. ??For accurate Potassium quantification in these patients send serum separator tube (gold top) for subsequent determinations. ??Contact the Clinical Chemistry Laboratory if there are any questions. Chloride 107 98 - 107 mmol/L [facility] Carbon Dioxide 17(L) 22 - 31 mmol/L [facility] Anion Gap 13 5 - 15 mmol/L [facility] Calcium 9.2 8.5 - 10.5 mg/dL [facility] Protein, Total 7.3 6.1 - 8.0 g/dL [facility] Albumin 4.3 3.2 - 5.2 g/dL [facility] Aspartate Aminotransferase 14 0 - 30 unit/L [facility] Alanine Aminotransferase 13 0 - 30 unit/L [facility] Alkaline Phosphatase 119(H) 35 - 105 unit/L [facility] Bilirubin, Total 0.2 0.2 - 1.3 mg/dL [facility] Est Glomerular Filtration Rate 67 >=60 mL/min/1. 73 m?? [facility] Comment: This patient? s estimated [...] Lab Cisco Negro MD CHEMISTRY ORDERABL ES [facility] [place] [address] * Lactate Dehydrogenase (11/14/2020 11:25 AM EDT) Lactate Dehydrogenase 149 110 - 220 unit/L [facility] Blood 11/14/2020 11:2 5 AM EDT 11/14/2020 11:42 AM EDT Narrative Resulting Agency Comment Spec In Lab Cisco Negro MD CHEMISTRY ORDERABL ES Performing Organization Address [facility]/ZIP Co de Phone Number [facility] [place] [address] * Peripheral Smear Review (11/14/2020 11:25 AM EDT) Peripheral Smear Review See Comment [facility] Comment: When completed by the Pathologist, report [id number] will display under Hematopathology Reports. Blood 11/14/2020 11:2 5 AM EDT 11/14/2020 11:42 AM EDT Narrative Resulting Agency Comment Spec In Lab Cisco Negro MD HEMATOLOGY ORDERAB LES Performing Organization Address [facility] Co de Phone Number [facility] [place] [address] * (ABNORMAL) Reticulocyte Count (11/14/2020 11:25 AM EDT) Reticulocyte % 1.0 0.7 - 2.5 % [facility] Retic Abs # 0.050 0.020 - 0.110 x10(6)/mcL [facility] Immature Retic% 21.9(H) 0.5 - 13.8 % [facility] Reticulated Hgb 23.9(L) 29.8 - 39.4 pg [facility] Blood 11/14/2020 11:2 5 AM EDT 11/14/2020 11:42 AM EDT Narrative Resulting Agency Comment Spec In Lab Cisco Negor MD HEMATOLOGY ORDERAB LES Performing Organization Address [facility]/ZIP Co de Phone Number [facility] [place] [address] * Vitamin B12 (11/14/2020 11:25 AM EDT) Vitamin B12 242 232 - 1,245 pg/mL [facility] Blood 11/14/2020 11:2 5 AM EDT 11/14/2020 11:42 AM EDT Narrative Resulting Agency Comment Spec In Lab Cisco Negro MD CHEMISTRY ORDERABL ES Performing Organization Address [facility]/ZIP Co de Phone Number [facility] [place] [address] * (ABNORMAL) Folate, serum (11/14/2020 11:25 AM EDT) Folate 4.6(L) 4.8 - 24.2 ng/mL [facility] Blood 11/14/2020 11:2 5 AM EDT 11/14/2020 11:42 AM EDT Narrative Resulting Agency Comment Spec In Lab Cisco Negro MD CHEMISTRY ORDERABL ES Performing Organization Address [facility] Co de Phone Number [facility] [place] [address] * (ABNORMAL) Ferritin (11/14/2020 11:25 AM EDT) Ferritin 7(L) 15 - 150 ng/mL [facility] Comment: Pediatric reference ranges not verified at [facility], interpret with caution. Reference ranges for females greater than 50 years of age approach values for men, i.e., 30-400 ng/mL. Blood 11/14/2020 11:2 5 AM EDT 11/14/2020 11:42 AM EDT Narrative Resulting Agency Comment Spec In Lab Cisco Negro MD CHEMISTRY ORDERABL ES Performing Organization Address [facility]/ZIP Co de Phone Number [facility] [place] [address] * Haptoglobin (11/14/2020 11:25 AM EDT) Haptoglobin 200 30 - 200 mg/dL [facility] Comment: Haptoglobin concentrations in newborns is low to undetectable; however, adult concentrations are usually attained by 4 months of age. ??No sex-related differences for haptoglobin have been detected. Blood 11/14/2020 11:2 5 AM EDT 11/14/2020 11:42 AM EDT Narrative Resulting Agency Comment Spec In Lab Cisco Negro MD CHEMISTRY ORDERABL ES Performing Organization Address [facility] Co de Phone Number [facility] [place] [address] * (ABNORMAL) Beta 2 Microglobulin, serum (11/14/2020 11:25 AM EDT) Beta 2 Microglobulin 2.3(H) 0.8 - 2.2 mg/L [facility] Blood 11/14/2020 11:2 5 AM EDT 11/14/2020 11:42 AM EDT Narrative Resulting Agency Comment Spec In Lab Cisco Negro MD CHEMISTRY ORDERABL ES Performing Organization Address [facility] Co de Phone Number [facility] [place] [address] * Immunoglobulins, Quantitative (11/14/2020 11:25 AM EDT) Immunoglobulin G 980 700 - 1,600 mg/dL [facility] Comment: Pediatric Reference Intervals obtained from the Cal[employer] Reference Interval project. http://www.sickkids.ca/caliperproject/index.html IgA 191 70 - 400 mg/dL [facility] IgM 108 40 - 230 mg/dL [facility] Blood 11/14/2020 11:2 5 AM EDT 11/14/2020 11:42 AM EDT Narrative Resulting Agency Comment Spec In Lab Cisco Negro MD CHEMISTRY ORDERABL ES Performing Organization Address [facility] Co de Phone Number [facility] [place] [address] * Free Light Chains, Serum (11/14/2020 11:25 AM EDT) Brea Free Light Chain 1.82 0.72 - 2.75 mg/dL [facility] Lambda Free Light Chain 2.04 0.57 - 2.15 mg/dL [facility] Brea/Lambda FLC Ratio 0.8922 0.4000 - 2.5800 [facility] Blood 11/14/2020 11:2 5 AM EDT 11/14/2020 11:42 AM EDT Narrative Resulting Agency Comment Spec In Lab Cisco Negro MD CHEMISTRY ORDERABL ES Performing Organization Address [facility] Co de Phone Number [facility] [place] [address] * Protein Electrophoresis, serum (11/14/2020 11:25 AM EDT) Total Prot Electrophoresis 6.8 6.1 - 8.0 g/dL [facility] Albumin Electrophoresis 4.41 3.60 - 6.00 g/dL [facility] Alpha 1 Globulin 0.17 0.10 - 0.30 g/dL [facility] Alpha 2 Globulin 0.69 0.40 - 0.90 g/dL [facility] Beta Globulin 0.78 0.50 - 1.00 g/dL [facility] Gamma Globulin 0.74 0.50 - 1.30 g/dL [facility] M1 Band None Detected None Detected [facility] Blood 11/14/2020 11:2 5 AM EDT 11/14/2020 11:42 AM EDT Narrative Resulting Agency Comment Spec In Lab Cisco Negro MD CHEMISTRY ORDERABL ES Performing Organization Address [facility] Co de Phone Number [facility] [place] [address] documented in this encounter Visit Diagnoses Diagnosis Microcytic anemia Iron deficiency anemia, unspecified documented in this encounter Care Teams Psychiatry Adult Physician Relationship Specialty Start Date End Date Caleb Ballard PA [address] [place] [address] PCP - General Internal Medicine 10/28/20 documented as of this encounter
--- OUTSIDE RECORDS SUMMARY | 2024-02-03 13:02 | XMS_ITS | Encounter Summary ---
Author Organization [facility] Address [facility] [place] [address] Care Team Providers Care [employer] Member Name Role Phone Caleb Ballard Primary Care Provider [phone] Reason for Referral * Consultation (Routine) - Closed Specialty Diagnoses / Procedures Referred By Contac t Referred To Contact Pain Management Diagnoses Radicular pain Worsening chronic low back pain/ new RLE n/t/ CT (total spine) 08/28/21 @ [facility] Caleb Ballard PA [address] [place] [address] [place], [place] Referral ID Status Reason Start Date Expiration Date V isits Requested Visits Authorized [id number] Closed Consult, Test & Treat PCP Updated and/or Approved 09/07/2021 09/07/2022 6 6 Encounter Details Date Type Department Care Team (Late st Contact Info) Description 09/07/2021 Transcribe Orders eDH Incoming Referrals [phone] Caleb Ballard PA [address] [place] [address] Radicular pain Social History Tobacco [...] unspecified documented in this encounter Care Teams Ballet Company Member Relationship Specialty Start Date End Date Caleb Ballard PA [address] [place] [address] PCP - General Internal Medicine 10/28/20 documented as of this encounter
--- OUTSIDE RECORDS SUMMARY | 2024-02-03 13:03 | XMS_ITS | Encounter Summary ---
Author Organization [facility] Address [facility] [address] [place] [address] Care Team Providers Care School Bus Inspector Name Role Phone Talisha Treviño MD Primary Care Provider [phone] Reason for Visit * Reason Onset Date Comments Medication Refill 02/19/2019 Encounter Details Date Type Department Care Team (Late st Contact Info) Description 02/19/2019 Refill [place] [address] John Garner APRN [facility] [place] [address] Small intestinal bacterial overgrowth Social History Tobacco [...] overgrowth documented in this encounter Care Teams School Bus Inspector Relationship Specialty Start Date End Date Talisha Treviño MD [address] [place] [address] PCP - General Family Medicine 12/05/17 10/27/20 documented as of this encounter
--- OUTSIDE RECORDS SUMMARY | 2024-02-03 13:03 | XMS_ITS | Encounter Summary ---
Author Organization [facility] Address [facility] [place] [address] Care Team Providers Care Inspector Balance Wheel Motion Name Role Phone Talisha Treviño MD Primary Care Provider [phone] Reason for Referral * Diagnostic Test (Routine) - Specialty Diagnoses / Procedures Referred By Dayan parker Referred To Contact Radiology Diagnoses Paraesophageal hernia Procedures XR Fluoro Barium Swallow César Barron MD [facility] [place] [address] [facility] Rad Xray [address] [place] [address] [place] [address] Referral ID Status Reason Start Date Expiration Date Visits Requested Visits Authorized [id number] Specialty Service Requested 06/08/2019 12/07/2020 1 1 Encounter Details Date Type Department Care Team (Late st Contact Info) Description 06/08/2019 Orders Only General Surgery at [facility] [place] [id number] César Barron MD Paraesophageal hernia Social History Tobacco Use Types [...] gangrene documented in this encounter Care Teams Inspector Balance Wheel Motion Relationship Specialty Start Date End Date Talisha Treviño MD [address] [place] [address] PCP - General Family Medicine 12/05/17 10/27/20 documented as of this encounter
--- OUTSIDE RECORDS SUMMARY | 2024-02-03 13:03 | XMS_ITS | Encounter Summary ---
Author Organization [facility] [place] [address] Care Team Providers Care Top Screw Name Role Phone Talisha Treviño MD Primary Care Provider [phone] Reason for Visit * Auth/Cert Specialty Diagnoses [...] Expiration Date Visits Re quested Visits Authorized [id number] 1 1 Encounter Details Date Type Department Care Team (Latest Contact Info) Description 06/25/2019 9:38 AM EDT - 06/28/2019 4:15 PM EDT Hospital Encounter [address] [place] [id number] Mariaelena Godinez MD Tachycardia; S/P Becca fundoplication (without gastrostomy tube) [...] PM Mariaelena Godinez MD General Surgery at [facility] Arrive at: Director Social Welfare Area [phone] Future Orders Complete By Madalyn Walker standard [EQ135 Custom] As directed Process Instructions: Scheduling Instructions: Comments: Ruby Sprague [address] [place] [phone] Telephone Information: Diagnosis: Recent surgery with Unsteady gait Significant weakness, ataxia or gait abnormality Patient's: Hgt: 4'11Wgt : 141 lbs VENDOR: [facility] Ordering: Front wheel walker Deliver to [facility] room #: 318a cadence- dc today [...] HOLIDAYS: ASK FOR THE GENERAL SURGERY RESIDENT CARD FIXER IF ANY OF THE ABOVE OCCUR. Activity [...] post Becca diet, as instructed by the lawyers in the hospital for a period of [...] at the General Surgery Outpatient Clinic - Director Social Welfare 4, on Tuesday, August 01, 2019 at 3:20pm. You will receive a letter in the mail confirming the appointment date and time. Your follow-up is very important to us. Please call [phone] if you do not hear from us [...] 06/28/2019 Primary Care Physician: Talisha Treviño MD [address] [address] documented in this encounter Discharge Instructions * Discharge Instructions* Margaret Rios PA - 06/28/2019 1:55 PM EDT Scheduled Appointments: Future Appointments and Orders Future Appointments and Orders Future Appointments Provider Department Dept Phone 08/01/2019 3:20 PM Mariaelena Godinez MD General Surgery at [facility] Arrive at: Director Social Welfare Area Instructions Given to Patient at Discharge: Call your doctor if you develop: Fever greater than 101.3 degrees Farenheit (38.5 degrees Celcius), chills, nausea or vomiting. Alsocall if you develop severe pain not relieved by your prescribed oral pain medicine. CALL THE GENERAL SURGERY CLINIC DURING WORKING HOURS AT , OR CALL AFTERCLINIC HOURS, WEEKENDS AND HOLIDAYS: ASK FOR THE GENERAL SURGERY RESIDENT CARD FIXER IF ANY OF THE ABOVE OCCUR. Activity [...] post Becca diet, as instructed by the lawyers in the hospital for a period of [...] at the General Surgery Outpatient Clinic - Director Social Welfare 4L, on Tuesday, August 01, 2019 at 3:20pm. You will receive a letter in the mail confirming the appointment date and time. Your follow-up is very important to us. Please call [phone] if you do not hear from us [...] through Care Everywhere. * Becca Fundoplication: Post-op (Stateless) * Becca Fundoplication Surgery: General Info (Stateless) documented in this encounter Medications at Time [...] answered. Peripheral IV x 2 removed per AEROSPACE ENGINEER OFFICER ARMAMENT, cath tips intact. Patient tachycardic 100-120's at [...] Patient requested walker for use at home, dependency case manager notified. [facility] delivered walker prior to discharge. Incision sitesCDI, TELLY removed bandaids prior to discharge. Patient left unit via wheelchair with AEROSPACE ENGINEER OFFICER ARMAMENT. Fiance to transport patient home at this time. Patient to follow up with PCP tomorrow. * Vale Solis RN - 06/28/2019 1:33 PM EDT Office of Care Management/Discharge Planning Note Care reviewed with primary medical team (Service: Gen Surg) and discussed in interdisciplinary rounds. Medical record reviewed. Patient to [place] home via private car. Walker ordered through [facility]. No other services needed. Care Management will continue to monitor progress, follow for continuity of care, and assist with discharge planning. Oncology Patient Navigator: Vale Solis Pager [phone] * Vale Solis RN - 06/28/2019 1:30 PM EDT The patient/professional healthcare representative has been provided a list of Home Health Agencies/DME vendors which servetheir preferred geographic area. A letter describing our affiliations was reviewed with them and they were educated about their right to choose where referrals are placed. Patient requests referral to : [facility] for walker Expected date of discharge: now. Referral routed to the Apiculture Teacher for matching with agency/vendor and to provide [...] Abnormal ECG When compared with ECG of 23-AUG-2017 09:47, T wave inversion more evident in [...] based on progress. TELLY ALFARO 06/27/2019 * Karosn Madison - 06/26/2019 10:38 AM EDT Nutrition [...] not allowed list for 3 full weeks. Rn Lvn and patient discussed all foods on the allowed not allowed list in great detail. Patient had a list of questions, advertising copywriter answered all questions patient had. Discussed incorporating supplemental shakes for additional calories and protein consumption. Rn Lvn will also provide 2 Boost Plus shakes [...] soda after 3 days of her procedure. Rn Lvn encouraged patient to avoid soda for 3 weeks and if any concern, to check with her PA. Patient expressed good understanding. Patient consumed cream of rice cereal, and apple juice for breakfast. Rn Lvn collected patient???s diet appropriate lunch choices to promote and encourage PO Intake with foods patient likes. Encouraged strained soup, patient states that she does not have a outsole flexer at home. Suggested pre made broth soup [...] consulted in the interim. NAVIN Crook Pager #[phone] * Margaret Rios, PA - 06/26/2019 7:46 AM EDT Minimally [...] quietly with even and unlabored respirations. PACU resident services coordinator notified. Labs ordered. Will continue to monitor. [...] with her today the entire time in [id number] conversation regarding these issues PMH: Past Medical History: Diagnosis Date ??? Anxiety ??? Asthma ??? Back spasm ??? GERD (gastroesophageal reflux disease) ??? Hiatal hernia ??? HTN (hypertension) ??? Umbilical hernia PSH: Past Surgical History: Procedure Laterality Date ??? PRO LAP, ESOPHAGOGAST FUNDOPLASTY N/A 09/09/2016 LAPAROSCOPIC BECCA FUNDOPLASTY (WRVU 18.1) performed by Mariaelena Godinez MD at [facility] MAIN OR ??? PRO UPPER GI ENDOSCOPY, BIOPSY N/A 07/30/2016 EGD WITH BIOPSY (WRVU 2.49) performed by Jovani Treviño MD at [facility] ENDOSCOPY Medications: No current facility-administered medications [...] file Gets together: Not on file Attends presybeterian service: Not on file Active member of [...] adequately. Abdominal lap sites with steri strips MARCE and c/d/i. Patients pain adequately controlled, see [...] as Appropriate) 06/26/19 0900 06/26/19 1244 06/26/19 1454 Daily Care Interventions Self-Care Promotion -- -- [...] file: MEDICARE Secondary Insurance on [place] Primary care provider on file: Talisha Treviño MD [phone] Advance Directive on file and Code Status: <no information>, Full Code HAS ADVANCED DIRECTIVE, REQUESTED COPY. MOTHER SPEAKS FOR DAUGHTER Patient???s Functional Status: bedrest, independent prior Living Situation:lives with velasquez, and mother lives down [address] in [facility]. Mother and velasqueze will be with her [phone] [facility] [address] [facility] [address] Supports:Mother and carmen Assessment: Patient with no apparent RNCM/SW needs at this time. No housing, transportation, insurance, resources concerns identified at this time. Supports in place to achieve a safe post-hospital transition. No identified barriers to accessing necessary care and/or follow-up after discharge. Plan: Patient to d/c to home via private car tomorrow if pain controlled and medically ready. business broker/Supervisor Process Testing will continue to follow patient???s progress and remain available if situation changes for coordination of care, psychosocial support and/or discharge planning. Vale Solis RN Pager [phone] * Op Note - Mariaelena Godinez MD - 06/26/2019 1:43 PM EDT [facility] Operative Note Patient Name: Ruby Sprague : [id number] MR#: [id number] Case Date: 06/25/2019 Surgeon: Surgeon(s) and Role: [...] and reformed a fundoplication over a 60 Vincentian bougie there were no complications. Details of [...] direction posterior to the esophagus a 60 Vincentian bougie was passed by anesthesia down the [...] is irrigated excellent hemostasis was assured the Worthington drain was cut and removed the liver [...] Impairment, Risk/Actual (Adult) Intervention: Promote/Optimize Nutrition 06/26/19 0445 Nutrition Interventions Oral Nutrition Promotion physical activity promoted;safe use of adaptive equipment encouraged Intervention: Prevent/Manage Excess Moisture 06/25/19 1928 06/26/19 0110 Hygiene Care Perineal Care -- absorbent [...] Nausea/Vomiting (Adult) Intervention: Minimize Nausea Triggers/Manage Symptoms 06/26/190 06/26/19444 Coping/Psychosocial Interventions Environmental Support -- calm environment [...] Operative Note Patient Name: Ruby Sprague : [id number] MR#: [id number] Case Date: 06/25/2019 Surgeon: Surgeon(s) and Role: [...] recurrent hiatal hernia Upper GI Endoscopy, Diagnostic (90855) Yes 06/25/2019 11:14 AM EDT recurrent hiatal hernia Unlisted Laparoscopic Procedure Esophagus (90177) Yes 06/25/2019 11:14 AM EDT recurrent hiatal hernia Unlisted Laparoscopic Procedure Esophagus (79715) Yes 06/25/2019 11:14 AM EDT recurrent hiatal hernia ABORH RECHECK STATUS STAT 06/25/2019 9:59 AM EDT HC ABO-MICROTITER STAT 06/25/2019 9:5 9 AM EDT ABO/RH TYPING STAT 06/25/2019 9:59 AM EDT ANTIBODY SCREEN STAT 06/25/2019 9:59 AM EDT documented in this encounter Results * (ABNORMAL) Differential, Automated (06/28/2019 7:21 AM EDT) Neutrophil % 62.7 % [facility] Neutrophil Absolute 5.66 1.70 - 6.10 x10(3)/[facility] Lymph % 23.1 % [facility] Lymphocytes Abs 2.1 0.9 - 3.2 x10(3)/[facility] Monocyte % 11.2 % [facility] Monocyte Abs 1.0(H) 0.3 - 0.9 x10(3)/[facility] Eos % 2.1 % [facility] Eosinophils Abs 0.2 0.0 - 0.4 x10(3)/[facility] Basophil % 0.7 % [facility] Baso Absolute 0.1 0.0 - 0.1 x10(3)/[facility] Immature Gran % 0.20 % [facility] Comment: Immature granulocytes(IG's)percentage and absolute count will include metamyelocytes, myelocytes, and promyelocytes. Blood smears from CBCs yielding IG's will be scanned manually for concordance. If this scan disagrees with the automated IG or if promyelocytes are noted, a manual differential will be performed. Immature Gran Absolute 0.02 0.00 - 0.04 x10(3)/[facility] Blood specimen (specimen) 06/28/2019 7:21 AM EDT 06/28/2019 7:26 AM EDT Narrative Resulting Agency Comment Spec In Lab Margaret VARNER HEMATOLOGY ORDERABLE S [facility] [place] [address] * (ABNORMAL) Hemogram (06/28/2019 7:21 AM EDT) Pathologist [facility] White Blood Cell 9.0 4.0 - 9.5 x10(3)/[facility] Red Blood Cell 4.38 4.00 - 5.21 x10(6)/mc L [facility] Hemoglobin 9.0(L) 11.7 - 15.5 gm/dL [facility] Hematocrit 29.7(L) 35.7 - 45.8 % [facility] Mean Cell Volume 67.8(L) 82.6 - 94.4 fL [facility] Mean Cell Hemoglobin 20.5(L) 27.1 - 32.0 pg [facility] Mean Cell Hemoglobin Concentration 30.3(L) 31.7 - 35.0 gm/dL [facility] Platelet 384(H) 145 - 357 x10(3)/mc L [facility] RDW Standard Deviation 48.1(H) 37.0 - 46.0 fL [facility] RDW coefficient of variation 19.8(H) 11.5 - 14.1 % [facility] Mean Platelet Volume 9.4 7.6 - 12.9 [facility] NRBC% auto 0.0 % [facility] NRBC Absolute 0.000 0.000 - 0.000 x10(3)/mc L [facility] Blood specimen (specimen) 06/28/2019 7:21 AM EDT 06/28/2019 7:26 AM EDT Narrative Resulting Agency Comment Spec In Lab Margaret VARNER HEMATOLOGY ORDERABLE S [facility] [place] [address] * Phosphorus (06/28/2019 7:21 AM EDT) Phosphorus 4.0 2.5 - 4.5 mg/dL [facility] Comment:result rechecked-sabrina Blood specimen (specimen) 06/28/2019 7:21 AM EDT 06/28/2019 7:26 AM EDT Narrative Resulting Agency Comment Spec In Lab Mariaelena Godinez MD CHEMISTRY ORDERABLE S Performing Organization Address City/[facility]/ZIP Co de Phone Number [facility] [place] [address] * Magnesium (06/28/2019 7:21 AM EDT) [facility] Magnesium 0.86 0.69 - 1.07 mmol/L [facility] Blood specimen (specimen) 06/28/2019 7:21 AM EDT 06/28/2019 7:26 AM EDT Narrative Resulting Agency Comment Spec In Lab Mariaelena Godinez MD CHEMISTRY ORDERABLE S Performing Organization Address [facility] Co de Phone Number [facility] [place] [address] * (ABNORMAL) Basic Metabolic Panel (non-fasting) (06/28/2019 7:21 AM EDT) [facility] Glucose 99 65 - 199 mg/dL [facility] Comment:Diabetes: >=200 mg/d L plus symptoms Blood Urea Nitrogen 7(L) 8 - 18 mg/dL [facility] Creatinine 0.55(L) 0.70 - 1.20 mg/dL [facility] Sodium 138 135 - 145 mmol/L [facility] Potassium 2.9(Criti navneet) 3.5 - 5.0 mmol/L [facility] Comment: Called by: sabrina, Read back by: Ruby Morton, Date/Time:06/28/19 08:12. Please note: ??Patients with WBC >100,000 may have falsely elevated Potassium levels. ??For accurate Potassium quantification in these patients send serum separator tube (gold top) for subsequent determinations. ??Contact the Clinical Chemistry Laboratory if there are any questions. Chloride 99 98 - 107 mmol/L [facility] Carbon Dioxide 26 22 - 31 mmol/L [facility] Anion Gap 13 5 - 15 mmol/L [facility] Calcium 9.1 8.5 - 10.5 mg/dL [facility] Est Glomerular Filtration Rate 116 >=60 mL/min/1. 73 m?? [facility] Comment: The eGFR was calculated using the CKD-EPI equation. As with all creatinine based estimates of kidney function, eGFR values calculated with the CKD-EPI equation are not accurate in patients with acute kidney failure, extremes of body mass or the acutely ill. http://[employer]/[facility] eGFR 135 >=60 mL/min/1. 73 m?? [facility] Comment: The eGFR was calculated using the CKD-EPI equation. As with all creatinine based estimates of kidney function, eGFR values calculated with the CKD-EPI equation are not accurate in patients with acute kidney failure, extremes of body mass or the acutely ill. http://[employer] [facility]nkf Blood specimen (specimen) 06/28/2019 7:21 AM EDT 06/28/2019 7:26 AM EDT Narrative Resulting Agency Comment Spec In Lab Mariaelena Godinez MD CHEMISTRY ORDERABLE S [facility] [place] [address] * CT Angiogram Chest for Pulmonary Embolus [...] (ABNORMAL) Phosphorus (06/27/2019 8:11 AM EDT) Pathologist [facility] Phosphorus 2.2(L) 2.5 - 4.5 mg/dL [facility] Blood specimen (specimen) Venous Draw / Unknown 06/27/2019 8:11 AM EDT 06/27/2019 8:35 AM EDT Narrative Resulting Agency Comment Spec In Lab Atif Mendez MD CHEMISTRY ORDERABLES [facility] [place] [address] * Magnesium (06/27/2019 8:11 AM EDT) Magnesium 0.74 0.69 - 1.07 mmol/L [facility] Blood specimen (specimen) Venous Draw / Unknown 06/27/2019 8:11 AM EDT 06/27/2019 8:35 AM EDT Narrative Resulting Agency Comment Spec In Lab Atif Mendez MD CHEMISTRY ORDERABLES Performing Organization Address [facility] Co de Phone Number [facility] [place] [address] * Troponin (06/27/2019 8:11 AM EDT) [facility] Troponin-T <0.01 0.00 - 0.00 ng/mL [facility] Comment: The 99th percentile for Troponin T is less than 0.01 ng/mL, any detectable cTnT concentration using this assay should be considered elevated. According to the third universal definition of myocardial infarction the following criteria with a clinical presentation consistent with acute myocardial ischemia meets the diagnosis for a myocardial infarction (MT). Detection of a rise and/or fall of cTnT, with at least one value greater than the 99th percentile (> or = 0.01) and with at least one of the following ?? Symptoms of ischemia ?? New or presumed new significant VS-nigikbf-I wave (ST-T) changes or new left bundle [...] additional sample may be indicated. Reference: Third [place] Definition of Myocardial Infarction. Journal of the [place] [employer] 2012;60:1581-98 Blood specimen (specimen) 06/27/2019 8:11 AM EDT 06/27/2019 8:35 AM EDT Narrative Resulting Agency Comment Spec In Lab Mariaelena Godinez MD CHEMISTRY ORDERABLE S Performing Organization Address [facility]/ZIP Co de Phone Number [facility] [place] [address] * (ABNORMAL) Differential, Automated (06/27/2019 8:11 AM EDT) [facility] Neutrophil % 68.3 % [facility] Neutrophil Absolute 7.46(H) 1.70 - 6.10 x10(3)/[facility] Lymph % 20.0 % [facility] Lymphocytes Abs 2.2 0.9 - 3.2 x10(3)/[facility] Monocyte % 10.1 % [facility] Monocyte Abs 1.1(H) 0.3 - 0.9 x10(3)/[facility] Eos % 0.6 % [facility] Eosinophils Abs 0.1 0.0 - 0.4 x10(3)/[facility] Basophil % 0.5 % [facility] Baso Absolute 0.0 0.0 - 0.1 x10(3)/[facility] Immature Gran % 0.50 % [facility] Comment: Immature granulocytes(IG's)percentage and absolute count will include metamyelocytes, myelocytes, and promyelocytes. Blood smears from CBCs yielding IG's will be scanned manually for concordance. If this scan disagrees with the automated IG or if promyelocytes are noted, a manual differential will be performed. Immature Gran Absolute 0.05(H) 0.00 - 0.04 x10(3)/[facility] Blood specimen (specimen) 06/27/2019 8:11 AM EDT 06/27/2019 8:35 AM EDT Narrative Resulting Agency Comment Spec In Lab Margaret VARNER HEMATOLOGY ORDERABLE S [facility] [place] [address] * (ABNORMAL) Hemogram (06/27/2019 8:11 AM EDT) Pathologist [facility] White Blood Cell 10.9(H) 4.0 - 9.5 x10(3)/[facility] Red Blood Cell 4.13 4.00 - 5.21 x10(6)/mc L [facility] Hemoglobin 8.3(L) 11.7 - 15.5 gm/dL [facility] Hematocrit 28.3(L) 35.7 - 45.8 % [facility] Mean Cell Volume 68.5(L) 82.6 - 94.4 fL [facility] Mean Cell Hemoglobin 20.1(L) 27.1 - 32.0 pg [facility] Mean Cell Hemoglobin Concentration 29.3(L) 31.7 - 35.0 gm/dL [facility] Platelet 415(H) 145 - 357 x10(3)/mc L [facility] RDW Standard Deviation 48.4(H) 37.0 - 46.0 [facility] RDW coefficient of variation 20.0(H) 11.5 - 14.1 % [facility] Mean Platelet Volume 10.3 7.6 - 12.9 [facility] NRBC% auto 0.0 % [facility] NRBC Absolute 0.000 0.000 - 0.000 x10(3)/mc L [facility] Blood specimen (specimen) 06/27/2019 8:11 AM EDT 06/27/2019 8:35 AM EDT Narrative Resulting Agency Comment Spec In Lab Margaret VARNER HEMATOLOGY ORDERABLE S [facility] [place] [address] * (ABNORMAL) Basic Metabolic Panel (non-fasting) (06/27/2019 8:11 AM EDT) Glucose 111 65 - 199 mg/dL [facility] Comment:Diabetes: >=200 mg/d L plus symptoms Blood Urea Nitrogen 5(L) 8 - 18 mg/dL [facility] Creatinine 0.65(L) 0.70 - 1.20 mg/dL [facility] Sodium 140 135 - 145 mmol/L [facility] Potassium 2.7(Criti navneet) 3.5 - 5.0 mmol/L [facility] Comment: Results rechecked Called by: tamy, Read back by: Laurel Ayoub, Date/Time:06/27/19 09:21. Please note: ??Patients with WBC >100,000 may have falsely elevated Potassium levels. ??For accurate Potassium quantification in these patients send serum separator tube (gold top) for subsequent determinations. ??Contact the Clinical Chemistry Laboratory if there are any questions. Chloride 104 98 - 107 mmol/L [facility] Carbon Dioxide 25 22 - 31 mmol/L [facility] Anion Gap 11 5 - 15 mmol/L [facility] Calcium 8.8 8.5 - 10.5 mg/dL [facility] Est Glomerular Filtration Rate 110 >=60 mL/min/1. 73 m?? [facility] Comment: The eGFR was calculated using the CKD-EPI equation. As with all creatinine based estimates of kidney function, eGFR values calculated with the CKD-EPI equation are not accurate in patients with acute kidney failure, extremes of body mass or the acutely ill. http://[employer] [facility] eGFR 128 >=60 mL/min/1. 73 m?? [facility] Comment: The eGFR was calculated using the CKD-EPI equation. As with all creatinine based estimates of kidney function, eGFR values calculated with the CKD-EPI equation are not accurate in patients with acute kidney failure, extremes of body mass or the acutely ill. http://[employer]/[facility]nkf Blood specimen (specimen) 06/27/2019 8:11 AM EDT 06/27/2019 8:35 AM EDT Narrative Resulting Agency Comment Spec In Lab Mariaelena Godinez MD CHEMISTRY ORDERABLE S [facility] [place] [address] * EKG 12 Lead (06/27/2019 7:21 AM EDT) Ventricular rate 109 BPM MUSE SYSTEM Atrial Rate 109 BPM MUSE SYSTEM P-R Interval 162 ms MUSE SYSTEM QRS Duration 80 ms MUSE SYSTEM Q-T Interval 328 ms MUSE SYSTEM QTC Calculated (Bezet) 441 ms MUSE SYSTEM Calculated P Cisco 49 degrees MUSE SYSTEM Calculated R Cisco 17 degrees MUSE SYSTEM Calculated T Cisco -64 degrees MUSE SYSTEM INTERPRETATION Sinus tachycardia ST & T wave abnormality, consider anterolateral ischemia Abnormal ECG When compared with ECG of 06-OCT-2016 09:47, ST & T wave inversion now evident in Anterolateral leads I personally reviewed the tracing and edited the fellows interpretation Confirmed by fellow Senser, Jose Carlos Kingston ([id number]) on 06/27/2019 1:44:51 PM Confirmed by Kiera Woodard ([id number]) on 06/27/2019 3:12:50 PM MUSE SYSTEM 06/27/2019 7:21 AM EDT 06/27/2019 3:12 PM EDT Atif Mendez MD ECG ORDERABLES MUSE SYSTEM * Scan, Peripheral Blood (06/26/2019 11:36 AM EDT) Pathologist [facility] Plat estimate Increased [facility] RBC Morphology Abnormal [facility] Microcyte 1-5 /HPF [facility] Hypochromia Slight [facility] Ovalocytes 1-5 /HPF [facility] Blood specimen (specimen) 06/26/2019 11:36 AM EDT 06/26/2019 11:50 AM EDT Narrative Resulting Agency Comment Spec In Lab Margaret VARNER HEMATOLOGY ORDERABLE S [facility] [place] [address] * (ABNORMAL) Differential, Automated (06/26/2019 11:36 AM EDT) Neutrophil % 77.7 % [facility] Neutrophil Absolute 11.02(H) 1.70 - 6.10 x10(3)/mc L [facility] Lymph % 11.0 % [facility] Lymphocytes Abs 1.6 0.9 - 3.2 x10(3)/[facility] Monocyte % 10.6 % [facility] Monocyte Abs 1.5(H) 0.3 - 0.9 x10(3)/[facility] Eos % 0.1 % [facility] Eosinophils Abs 0.0 0.0 - 0.4 x10(3)/[facility] Basophil % 0.1 % [facility] Baso Absolute 0.0 0.0 - 0.1 x10(3)/[facility] Immature Gran % 0.50 % [facility] Comment: Immature granulocytes(IG's)percentage and absolute count will include metamyelocytes, myelocytes, and promyelocytes. Blood smears from CBCs yielding IG's will be scanned manually for concordance. If this scan disagrees with the automated IG or if promyelocytes are noted, a manual differential will be performed. Immature Gran Absolute 0.07(H) 0.00 - 0.04 x10(3)/[facility] Blood specimen (specimen) 06/26/2019 11:36 AM EDT 06/26/2019 11:50 AM EDT Narrative Resulting Agency Comment Spec In Lab Margaret VARNER HEMATOLOGY ORDERABLE S [facility] [place] [address] * (ABNORMAL) Hemogram (06/26/2019 11:36 AM EDT) White Blood Cell 14.2(H) 4.0 - 9.5 x10(3)/[facility] Red Blood Cell 4.14 4.00 - 5.21 x10(6)/[facility] Hemoglobin 8.3(L) 11.7 - 15.5 gm/dL [facility] Hematocrit 28.2(L) 35.7 - 45.8 % [facility] Mean Cell Volume 68.1(L) 82.6 - 94.4 fL [facility] Mean Cell Hemoglobin 20.0(L) 27.1 - 32.0 pg [facility] Mean Cell Hemoglobin Concentration 29.4(L) 31.7 - 35.0 gm/dL [facility] Platelet 417(H) 145 - 357 x10(3)/mc L [facility] RDW Standard Deviation 48.2(H) 37.0 - 46.0 fL [facility] RDW coefficient of variation 20.0(H) 11.5 - 14.1 % [facility] Mean Platelet Volume 9.7 7.6 - 12.9 fL [facility] NRBC% auto 0.0 % [facility] NRBC Absolute 0.000 0.000 - 0.000 x10(3)/mc L [facility] Blood specimen (specimen) 06/26/2019 11:36 AM EDT 06/26/2019 11:50 AM EDT Narrative Resulting Agency Comment Spec In Lab Margaret VARNER HEMATOLOGY ORDERABLE S [facility] [place] [address] * Scan, Peripheral Blood (06/26/2019 3:39 AM EDT) Plat estimate Increased [facility] RBC Morphology Abnormal [facility] Microcyte 1-5 /HPF [facility] Hypochromia [facility] Ovalocytes 6-10 /HPF [facility] Bernardo Cells 1-5 /HPF [facility] Blood specimen (specimen) 06/26/2019 3:39 AM EDT 06/26/2019 4:38 AM EDT Narrative Resulting Agency Comment Spec In Lab Atif Mendez MD HEMATOLOGY ORDERABLE S [facility] [place] [address] * (ABNORMAL) Differential, Automated (06/26/2019 3:39 AM EDT) Neutrophil % 83.9 % [facility] Neutrophil Absolute 12.93(H) 1.70 - 6.10 x10(3)/mc L [facility] Lymph % 6.9 % [facility] Lymphocytes Abs 1.1 0.9 - 3.2 x10(3)/ L [facility] Monocyte % 8.4 % [facility] Monocyte Abs 1.3(H) 0.3 - 0.9 x10(3)/ L [facility] Eos % 0.0 % [facility] Eosinophils Abs 0.0 0.0 - 0.4 x10(3)/ L [facility] Basophil % 0.1 % [facility] Baso Absolute 0.0 0.0 - 0.1 x10(3)/ L [facility] Immature Gran % 0.70 % [facility] Comment: Immature granulocytes(IG's)percentage and absolute count will include metamyelocytes, myelocytes, and promyelocytes. Blood smears from CBCs yielding IG's will be scanned manually for concordance. If this scan disagrees with the automated IG or if promyelocytes are noted, a manual differential will be performed. Immature Gran Absolute 0.11(H) 0.00 - 0.04 x10(3)/ L [facility] Blood specimen (specimen) 06/26/2019 3:39 AM EDT 06/26/2019 4:38 AM EDT Narrative Resulting Agency Comment Spec In Lab Atif Mendez MD HEMATOLOGY ORDERABLE S Performing Organization Address City/[facility]/ZIP Co de Phone Number [facility] [place] [address] * (ABNORMAL) Hemogram (06/26/2019 3:39 AM EDT) [facility] White Blood Cell 15.4(H) 4.0 - 9.5 x10(3)/[facility] Red Blood Cell 4.01 4.00 - 5.21 x10(6)/[facility] Hemoglobin 8.2(L) 11.7 - 15.5 gm/dL [facility] Hematocrit 28.2(L) 35.7 - 45.8 % [facility] Mean Cell Volume 70.3(L) 82.6 - 94.4 fL [facility] Mean Cell Hemoglobin 20.4(L) 27.1 - 32.0 pg [facility] Mean Cell Hemoglobin Concentration 29.1(L) 31.7 - 35.0 gm/dL [facility] Platelet 419(H) 145 - 357 x10(3)/[facility] RDW Standard Deviation 49.9(H) 37.0 - 46.0 [facility] RDW coefficient of variation 19.8(H) 11.5 - 14.1 % [facility] Mean Platelet Volume 10.3 7.6 - 12.9 fL [facility] NRBC% auto 0.0 % [facility] NRBC Absolute 0.000 0.000 - 0.000 x10(3)/[facility] Blood specimen (specimen) 06/26/2019 3:39 AM EDT 06/26/2019 4:38 AM EDT Narrative Resulting Agency Comment Spec In Lab Atif Mendez MD HEMATOLOGY ORDERABLE S [facility] [place] [address] * (ABNORMAL) Basic Metabolic Panel (non-fasting) (06/26/2019 3:39 AM EDT) Glucose 144 65 - 199 mg/dL [facility] Comment:Diabetes: >=200 mg/d L plus symptoms Blood Urea Nitrogen 11 8 - 18 mg/dL [facility] Creatinine 0.64(L) 0.70 - 1.20 mg/dL [facility] Sodium 139 135 - 145 mmol/L [facility] Potassium 3.5 3.5 - 5.0 mmol/L [facility] Comment: Please note: ??Patients with WBC >100,000 may have falsely elevated Potassium levels. ??For accurate Potassium quantification in these patients send serum separator tube (gold top) for subsequent determinations. ??Contact the Clinical Chemistry Laboratory if there are any questions. Chloride 109(H) 98 - 107 mmol/L [facility] Carbon Dioxide 21(L) 22 - 31 mmol/L [facility] Anion Gap 9 5 - 15 mmol/L [facility] Calcium 8.5 8.5 - 10.5 mg/dL [facility] Est Glomerular Filtration Rate 111 >=60 mL/min/1. 73 m?? [facility] Comment: The eGFR was calculated using the CKD-EPI equation. As with all creatinine based estimates of kidney function, eGFR values calculated with the CKD-EPI equation are not accurate in patients with acute kidney failure, extremes of body mass or the acutely ill. http://[employer]/[facility] eGFR 128 >=60 mL/min/1. 73 m?? [facility] Comment: The eGFR was calculated using the CKD-EPI equation. As with all creatinine based estimates of kidney function, eGFR values calculated with the CKD-EPI equation are not accurate in patients with acute kidney failure, extremes of body mass or the acutely ill. http://[employer] [facility] Blood specimen (specimen) 06/26/2019 3:39 AM EDT 06/26/2019 4:38 AM EDT Narrative Resulting Agency Comment Spec In Lab Atif Mendez MD CHEMISTRY ORDERABLES [facility] [place] [address] * Phosphorus (06/25/2019 2:52 PM EDT) Pathologist [facility] Phosphorus 3.4 2.5 - 4.5 mg/dL [facility] Blood specimen (specimen) 06/25/2019 2:52 PM EDT 06/25/2019 3:11 PM EDT Narrative Resulting Agency Comment Spec In Lab Mariaelena Godinez MD CHEMISTRY ORDERABLE S Performing Organization Address [facility]/ZIP Co de Phone Number [facility] [place] [address] * Magnesium (06/25/2019 2:52 PM EDT) [facility] Magnesium 0.79 0.69 - 1.07 mmol/L [facility] Blood specimen (specimen) 06/25/2019 2:52 PM EDT 06/25/2019 3:11 PM EDT Narrative Resulting Agency Comment Spec In Lab Mariaelena Godinez MD CHEMISTRY ORDERABLE S Performing Organization Address [facility] Co de Phone Number [facility] [place] [address] * (ABNORMAL) Basic Metabolic Panel (non-fasting) (06/25/2019 2:52 PM EDT) Pathologist [facility] Glucose 281(H) 65 - 199 mg/dL [facility] Comment:Diabetes: >=200 mg/d L plus symptoms Blood Urea Nitrogen 13 8 - 18 mg/dL [facility] Creatinine 0.88 0.70 - 1.20 mg/dL [facility] Sodium 138 135 - 145 mmol/L [facility] Potassium 3.6 3.5 - 5.0 mmol/L [facility] Comment: Please note: ??Patients with WBC >100,000 may have falsely elevated Potassium levels. ??For accurate Potassium quantification in these patients send serum separator tube (gold top) for subsequent determinations. ??Contact the Clinical Chemistry Laboratory if there are any questions. Chloride 106 98 - 107 mmol/L [facility] Carbon Dioxide 20(L) 22 - 31 mmol/L [facility] Anion Gap 12 5 - 15 mmol/L [facility] Calcium 8.6 8.5 - 10.5 mg/dL [facility] Est Glomerular Filtration Rate 82 >=60 mL/min/1. 73 m?? [facility] Comment: The eGFR was calculated using the CKD-EPI equation. As with all creatinine based estimates of kidney function, eGFR values calculated with the CKD-EPI equation are not accurate in patients with acute kidney failure, extremes of body mass or the acutely ill. http://[employer]/[facility] eGFR 95 >=60 mL/min/1. 73 m?? [facility] Comment: The eGFR was calculated using the CKD-EPI equation. As with all creatinine based estimates of kidney function, eGFR values calculated with the CKD-EPI equation are not accurate in patients with acute kidney failure, extremes of body mass or the acutely ill. http://[employer]/DHnkf Blood specimen (specimen) 06/25/2019 2:52 PM EDT 06/25/2019 3:11 PM EDT Narrative Resulting Agency Comment Spec In Lab Mariaelena Godinez MD CHEMISTRY ORDERABLE S [facility] [place] [address] * ABORH Recheck Status (06/25/2019 9:59 AM EDT) ABORH Type Recheck Completed [facility] Blood specimen (specimen) 06/25/2019 9:59 AM EDT 06/25/2019 10:01 AM EDT Narrative Resulting Agency Comment Spec In Lab Mariaelena Godinez MD BLOOD BANK LAB JOSÉ TOLLIVER [facility] [place] [address] * Antibody screen (06/25/2019 9:59 AM EDT) Ab Screen Interp Negative [facility] Expires at 2359 on: 06/28/2019 [facility] Blood specimen (specimen) 06/25/2019 9:59 AM EDT 06/25/2019 10:01 AM EDT Narrative Resulting Agency Comment Spec In Lab Mariaelena Godinez MD BLOOD BANK LAB ORDMilan TOLLIVER [facility] [place] [address] * ABO/Rh Typing (06/25/2019 9:59 AM EDT) ABORH Type A Pos [facility] Blood specimen (specimen) 06/25/2019 9:59 AM EDT 06/25/2019 10:01 AM EDT Narrative Resulting Agency Comment Spec In Lab Mariaelena Godinez MD BLOOD BANK LAB ORDMilan TOLLIVER [facility] [place] [address] documented in this encounter Visit Diagnoses Diagnosis [...] Until Tue06/26/19 at 0854, Recovery (Recovery-Hospital Unit) New Bag [...] Tue06/25/19 at 1743, Until Tue06/28/19 at 1821, flush, Flush pertains to all [...] Ramos RN)1834 (Given - Provider: Alia Ramos RN)2121 (Given - Provider: Gucci Elmore RN) 0925 (Given - Provider: Sandrine Morton, DAVID)1339 (Given - Provider: Sandrine Morton, DAVID) cyclobenzaprine (Flexeril) tablet 10 mg 10 mg, Oral, 2 TIMES DAILY, First dose on Tue06/26/19 at 0900, Until Discontinued, Routine 0859 (Given - Provider: Macy Gamez, DAVID)2100 (Not Given - Provider: Adelina Mills RN - Reason: Patient/family refused) 09 (Not Given - Provider: Alia Ramos RN - Reason: Patient/family refused)2120 (Given - Provider: Gucci Elmore, RN) 09 (Given - Provider: Sandrine Morton, DAVID) hydroCHLOROthiazide (Hydrodiuril) tablet 25 mg 25 mg, Oral, DAILY, First dose on Tue06/26/19 at 0900, Until Discontinued, Routine 0859 (Given - Provider: Macy Gamez, DAVID) 09 (Given - Provider: Alia Ramos RN - Comment: BP 155/87, okay vance VARNER) 09 (Given - Provider: Sandrine Morton, DAVID) potassium chloride ER (K-Dur/Klor-Con) tablet 20 mEq 20 mEq, Oral, 3 TIMES DAILY, 6 doses, First dose on Tue06/27/19 at 1000, Last dose on Tue06/28/19 at 2100, 20 mEq tablet may be dissolved in water for administration, Routine 1030 (Given - Provider: Alia Ramos RN)1450 (Given - Provider: Alia Ramos RN)2119 (Given - Provider: Gucci Elmore, DAVID) 09 (Given - Provider: Sandrine Morton, DAVID)1531 (Given - Provider: Sandrine Morton, DAVID) sodium chloride 0.9 % (flush) flush 5 mL 5 mL, Intravenous, 2 TIMES DAILY, First dose on Tue06/25/19 at 2100, Until Discontinued, Recovery (Recovery-Hospital Unit), Routine 0028 (Given - Provider: Adelina Everett RN)09 (Given - Provider: Macy Gamez RN)2024 (Given - Provider: Adelina Mills RN) 09 (Given - Provider: Alia Ramos, DAVID)2120 (Given - Provider: Gucci Elmore, RN) 0926 (Given - Provider: Sandrine Morton, DAVID) Continuous Medication Order 06/26/2019 06/27/2019 06/28/2019 lactated ringers infusion (CANCELED) 1,000 mL, at 100 mL/hr, Intravenous, CONTINUOUS, Starting on Tue06/25/19 at 1630, Until Tue06/26/19 at 0854, Recovery (Recovery-Hospital Unit) 0030 (New Bag - Provider: Adelina Everett, RN) PRN Medication Order 06/26/2019 06/27/2019 06/28/2019 [...] ordered., Routine 0028 (Given - Provider: Adelina Everett, RN)1804 (Given - Provider: Ruby Cowan RN) [...] medications, Routine 0351 (Given - Provider: Adelina Everett, DAVID) iohexoL (OMNIPAQUE) 350 mg/mL solution 0-200 mL (COMPLETED) 0-200 mL, Intravenous, ONCE PRN, 1 dose, Starting on Tue06/27/19 at 1710, Until Tue06/27/19 at 1710, Per Protocol, Warning Vesicant/Irritant Medication , Radiology Contrast, Routine 1709 (Given - Provider: Maggie Kraus) lidocaine (XYLOCAINE) [...] 2127 (Not Given - Provider: Gucci Elmore, DAVID - Reason: Patient/family refused - Comment: pt states gives her h.a.) oxyCODONE (Roxicodone) (1 mg/mL) oral liquid 5 mg 5 mg, Oral, EVERY 4 HOURS PRN, Starting on 06/25/19 at 1631, Until Bev 06/28/19 at 1821, Pain, Moderate pain 4-10, Routine 0028 (Given - Provider: Adelina Everett RN)0659 (Given - Provider: Adelina Everett RN)1229 (Given - Provider: Macy Gamez RN)1804 (Given - Provider: Ruby Cowan RN)2212 (Given - Provider: Adelina Mills RN) 0208 (Given - Provider: Adelina Mills RN)0614 (Given - Provider: Adelina Mills RN)1030 (Given - Provider: Alia Ramos, DAVID)1450 (Given - Provider: Alia Ramos, DAVID)1944 (Given - Provider: Gucci Elmore, RN) 0221 (Given - Provider: Gucci Elmore, RN)0931 (Given - Provider: Sandrine Morton, DAVID)1520 (Given - Provider: Darling Connelly, DAVID) prochlorperazine (COMPAZINE) injection 10 mg 10 mg, Intravenous, EVERY 6 HOURS PRN, Starting on 06/25/19 at 2128, Until Bev 06/28/19 at 1821, Nausea, Routine 0048 (Given - Provider: Adelina Everett RN) 2137 (Given - Provider: Gucci Elmore, RN) sodium chloride 0.9 % (flush) flush [...] Unit) documented in this encounter Care Teams Top Screw Relationship Specialty Start Date End Date Talisha Treviño MD [address] [place] [address] PCP - General Family Medicine 12/05/17 10/27/20 documented as of this encounter
--- OUTSIDE RECORDS SUMMARY | 2024-02-03 13:03 | XMS_ITS | Encounter Summary ---
Author Organization [facility] Address [facility] Chris [address] [place] [address] Care Team Providers Care Pipe And Test Supervisor Name Role Phone Talisha Treviño MD Primary Care Provider [phone] Reason for Visit * Auth/Cert Specialty Diagnoses [...] Expiration Date Visits Re quested Visits Authorized [id number] 1 1 Encounter Details Date Type Department Care Team (Late st Contact Info) Description 06/25/2019 11:09 AM EDT Anesthesia Event [place] [address] Lakshmi Elise MD [facility] [place] [address] Anesthesia Record Procedure Summary Procedure Name Responsible [...] aware 1247 Quick Note EGD by surgical instrument repair specialist 1254 Break/Relief In I assumed ca re [...] 1027; metacarpal vein (top of hand), left; tcty-zys-[id number] catheter system; 20 gauge; Concepción Miles; distraction, [...] 1132; metacarpal vein (top of hand), right; feyb-wly-xuanlf catheter system; 18 gauge; YESSI Yadav; (under [...] Procedure Summary Date: 06/25/19 Room / Location: [address] MAIN OR Anesthesia Start: 1109 Anesthesia [...] All Anesthesia Providers: Anesthesiologist: Lakshmi Elise MD BUMP GRADER OPERATOR: Angelic Ponce CRNA Vitals Value Taken Time BP 144/76 06/25/2019 2:44 PM Temp 36 ??C (96.8 ??F) 06/25/2019 1:51 PM Pulse 99 06/25/2019 2:44 PM Resp SpO2 99 % 06/25/2019 2:44 PM Pain Level Patient Location: PACU/[facility] Level of Consciousness: Conscious but Sleepy [...] 18.1) performed by César Barron MD at [facility] MAIN OR ??? PRO UPPER GI ENDOSCOPY, BIOPSY N/A 07/30/2016 EGD WITH BIOPSY (WRVU 2.49) performed by Jovani Treviño MD at [facility] ENDOSCOPY ??? UMBILICAL HERNIA REPAIR Social History [...] risks discussed with patient. Plan discussed with BUMP GRADER OPERATOR and attending. PAT Clinic Note documented in [...] mg documented in this encounter Care Teams Pipe And Test Supervisor Relationship Specialty Start Date End Date Talisha Treviño MD [address] [place] [address] PCP - General Family Medicine 12/05/17 10/27/20 documented as of this encounter
--- OUTSIDE RECORDS SUMMARY | 2024-02-03 13:03 | XMS_ITS | Encounter Summary ---
Author Organization [facility] [place] [address] Care Team Providers Care Maintenance Groundman Name Role Phone Talisha Treviño MD Primary Care Provider [phone] Encounter Details Date Type Department Care Team (Late st Contact Info) Description 02/05/2019 [place] [phone] Tawana Newell RN Social History Tobacco Use [...] Telephone Encounter - Tawana Newell RN - 02/20/2019 9:40 AM EST Returned call to patient to advise that probiotics prescribed. Send patient hand outs on SIBO diet for her review. * Telephone Encounter - Tawana Newlel RN - 02/19/2019 9:58 AM EST Returned [...] on filedocumented in this encounter Care Teams Maintenance Groundman Relationship Specialty Start Date End Date Talisha Treviño MD [address] [place] [address] PCP - General Family Medicine 12/05/17 10/27/20 documented as of this encounter
--- OUTSIDE RECORDS SUMMARY | 2024-02-03 13:03 | XMS_ITS | Encounter Summary ---
Author Organization [facility] [place] [address] Care Team Providers Care Indirect Sales Exec Name Role Phone Talisha Treviño MD Primary Care Provider [phone] Reason for Visit * Reason Onset Date Comments Prior Authorization 12/20/2018 Encounter Details Date Type Department Care Team (Late st Contact Info) Description 12/20/2018 Telephone [place] [phone] Bety S[facility]chez, [facility] Prior Authorization Social History Tobacco Use Types [...] Prior Authorization 4L Gastroenterology / [place] [address] Subscriber Insurance: Equivalent DATA Phone: Fax: Physician: John Garner Return Pharmacy: [...] overgrowth documented in this encounter Care Teams Indirect Sales Exec Relationship Specialty Start Date End Date Talisha Treviño MD [address] [place] [address] PCP - General Family Medicine 12/05/17 10/27/20 documented as of this encounter
--- OUTSIDE RECORDS SUMMARY | 2024-02-03 13:03 | XMS_ITS | Encounter Summary ---
Author Organization [facility] [place] [address] Care Team Providers Care Frame Table Operator Helper Name Role Phone Talisha Treviño MD Primary Care Provider [phone] Encounter Details Date Type Department Care Team (Late st Contact Info) Description 01/26/2019 Telephone [place] [phone] Ezequiel Brantley MD Social History Tobacco Use Types Packs/Day Years [...] on filedocumented in this encounter Care Teams Frame Table Operator Helper Relationship Specialty Start Date End Date Talisha Treviño MD [address] [place] [address] PCP - General Family Medicine 12/05/17 10/27/20 documented as of this encounter
--- OUTSIDE RECORDS SUMMARY | 2024-02-03 13:03 | XMS_ITS | Encounter Summary ---
Author Organization [facility] [place] [address] Care Team Providers Care Retail Sales Consultant Name Role Phone Talisha Treviño MD Primary Care Provider [phone] Encounter Details Date Type Department Care Team (Late st Contact Info) Description 01/26/2019 [place] [phone] Hodan Singleton RN Social History Tobacco Use [...] on filedocumented in this encounter Care Teams Retail Sales Consultant Relationship Specialty Start Date End Date Talisha Treviño MD [address] [place] [address] PCP - General Family Medicine 12/05/17 10/27/20 documented as of this encounter
--- OUTSIDE RECORDS SUMMARY | 2024-02-03 13:03 | XMS_ITS | Encounter Summary ---
Author Organization [facility] [place] [address] Care Team Providers Care Yam Curer Name Role Phone Talisha Treviño MD Primary Care Provider [phone] Encounter Details Date Type Department Care Team (Late st Contact Info) Description 09/19/2018 Telephone [place] [address] Serenity Pacheco Social History Tobacco Use Types [...] CLINICAL SAFETY CHECKLIST 09/19/2018 Serenity Sprague [address] [facility] [address] [facility] [address] [id number] : 1980 REFERRING PROVIDER: John PRIMARY CARE [...] on filedocumented in this encounter Care Teams Yam Curer Relationship Specialty Start Date End Date Talisha Treviño MD [address] [place] [id number] PCP - General Family Medicine 12/05/17 10/27/20 documented as of this encounter
--- OUTSIDE RECORDS SUMMARY | 2024-02-03 13:03 | XMS_ITS | Encounter Summary ---
Author Organization [facility] Address [facility] [address] Care Team Providers Care Bilingual Operator Name Role Phone Talisha Treviño MD Primary Care Provider [phone] Reason for Referral * Consultation (Routine) - Closed Specialty Diagnoses / Procedures Referred By Contac t Referred To Contact Pain Management Diagnoses Chronic bilateral low back pain without sciatica Leonardo Burris APRN [facility] [place] [address] [facility] [address] [place] [address] Referral ID Status Reason Start Date Expiration Date V isits Requested Visits Authorized [id number] Closed Consult, Test & Treat 06/22/2018 06/22/2019 1 1 Reason for Visit * Reason Comments Back Pain Neck Pain Encounter Details Date Type Department Care Team (Late st Contact Info) Description 06/22/2018 10:00 AM EDT Office [place] [address] Leonardo Burris APRN Chronic bilateral low back pain without sciatica [...] this encounter Progress Notes * Leonardo Burris, DETONATOR MAKER - 06/22/2018 10:00 AM EDT SUBJECTIVE: Ruby [...] 2 years ago. She is also trialed primary care nurse not helpful. Review of systems is negative constitutional, GI, symptoms. Patient smokes 5 cigarettes a day although is working to quit and begin using nicotine patches, shedenies alcohol use, and lives in [facility] with her fianc??. She is on [...] patient does report having had x-rays in [facility] in the past and was not advised [...] sciatica documented in this encounter Care Teams Bilingual Operator Relationship Specialty Start Date End Date Talisha Treviño MD [address] [place] [address] PCP - General Family Medicine 12/05/17 10/27/20 documented as of this encounter
--- OUTSIDE RECORDS SUMMARY | 2024-02-03 13:03 | XMS_ITS | Encounter Summary ---
Author Organization [facility] Address [facility] [place] [address] Care Team Providers Care Metal Fabricating Shop Helper Name Role Phone Mary Carmenkdprashant Shital JANET Primary Care Provider [phone] Reason for Visit * Reason Comments Advice Only panni * Consultation (Routine) - Closed Specialty Diagnoses / Procedures Referred By Dayan parker Referred To Contact Plastic Surgery Diagnoses Bloated abdomen John Garner APRN [facility] [address] [place] [address] [facility] [address] [place] [address] Referral ID Status Reason Start Date Expiration Date V isits Requested Visits Authorized [id number] Closed Consult, Test & Treat 03/28/2017 03/28/2018 1 1 Encounter Details Date Type Department Care Team (Late st Contact Info) Description 04/07/2017 10:15 AM EST Office [place] [address] [facility] [place] [address] Abdominal panniculus Social History Tobacco [...] back pain but has not consulted a citizen participation specialist for this. She denies hx of [...] 18.1) performed by César Barron MD at [facility] MAIN OR ??? PRO UPPER GI ENDOSCOPY, BIOPSY N/A 07/30/2016 EGD WITH BIOPSY (WRVU 2.49) performed by Jovani Treviño MD at [facility] ENDOSCOPY Social History Social History ??? Marital [...] adiposity documented in this encounter Care Teams Metal Fabricating Shop Helper Relationship Specialty Start Date End Date Shital Brooke, ASPHALT TAMPING MACHINE OPERATOR [address] [place] [address] PCP - General Family Medicine 07/20/16 12/04/17 documented as of this encounter
--- OUTSIDE RECORDS SUMMARY | 2024-02-03 13:03 | XMS_ITS | Encounter Summary ---
Author Organization [facility] [place] [address] Care Team Providers Care Yeast Culture Operator Name Role Phone Talisha Treviño MD Primary Care Provider [phone] Reason for Visit * Auth/Cert Specialty Diagnoses [...] Expiration Date Visits Re quested Visits Authorized [id number] 1 1 Encounter Details Date Type Department Care Team (Late st Contact Info) Description 06/25/2019 10:06 AM EDT - 06/25/2019 2:04 PM EDT Surgery [place] [phone] Mariaelena Godinez MD LAPAROSCOPIC REVISION OF BECCA FUNDOPLASTY (WRVU 48.75) [...] PM Mariaelena Godinez MD General Surgery at [facility] Arrive at: Administrator Social Welfare Area [phone] Future Orders Complete By Madalyn Aguirre standard [EQ135 Custom] As directed Process Instructions: Scheduling Instructions: Comments: Ruby Sprague [address] [address] Telephone Information: Diagnosis: Recent surgery with Unsteady gait Significant weakness, ataxia or gait abnormality Patient's: Hgt: 4'11Wgt : 141 lbs VENDOR: [facility] Ordering: Front wheel walker Deliver to [facility] hospital room #: 318a cadence- nd today Questions: Vendor Name/Contact information: [facility] Instructions [...] HOLIDAYS: ASK FOR THE GENERAL SURGERY RESIDENT HEEL LIFT GOUGER IF ANY OF THE ABOVE OCCUR. Activity [...] post Becca diet, as instructed by the cotton cleaner in the hospital for a period of [...] place, such as a locked cabinet or [employer]. -Unused opioids should be disposed of appropriately. [...] at the General Surgery Outpatient Clinic - Administrator Social Welfare 4, on Tuesday, August 01, 2019 at 3:20pm. You will receive a letter in the mail confirming the appointment date and time. Your follow-up is very important to us. Please call [phone] if you do not hear from us [...] 06/28/2019 Primary Care Physician: Talisha Treviño MD [address] / [facility] [id number] documented in this encounter Discharge Instructions * Discharge Instructions* Margaret Riso PA - 06/28/2019 1:55 PM EDT Scheduled Appointments: Future Appointments and Orders Future Appointments and Orders Future Appointments Provider Department Dept Phone 08/01/2019 3:20 PM Mariaelena Godinez MD General Surgery at [facility] Arrive at: Administrator Social Welfare Area Instructions Given to Patient [...] HOLIDAYS: ASK FOR THE GENERAL SURGERY RESIDENT HEEL LIFT GOUGER IF ANY OF THE ABOVE OCCUR. Activity [...] post Becca diet, as instructed by the cotton cleaner in the hospital for a period of [...] at the General Surgery Outpatient Clinic - Administrator Social Welfare 4L, on Thursday, August 01, 2019 at 3:20pm. You will receive a letter in the mail confirming the appointment date and time. Your follow-up is very important to us. Please call [phone] if you do not hear from us [...] through Care Everywhere. * Becca Fundoplication: Post-op (Ukrainian) * Becca Fundoplication Surgery: General Info (Ukrainian) documented in this encounter Medications at Time [...] answered. Peripheral IV x 2 removed per CORN PICKER, cath tips intact. Patient tachycardic 100-120's at [...] Patient requested walker for use at home, mental health case manager notified. [facility] delivered walker prior to discharge. Incision sitesGUILLEITELLY removed bandaids prior to discharge. Patient left unit via wheelchair with CORN PICKER. Fiance to transport patient home at this [...] of care, and assist with discharge planning. Insulation Engineman: Vale Solis Pager [phone] * Vale Solis RN - 06/28/2019 1:30 PM EDT The patient/footwear sales representative has been provided a list of Home Health Agencies/DME vendors which servetheir preferred geographic area. A letter describing our affiliations was reviewed with them and they were educated about their right to choose where referrals are placed. Patient requests referral to : [facility] for walker Expected date of discharge: now. Referral routed to the Porcelain Waxer for matching with agency/vendor and to provide [...] progress. TELLY ALFARO 06/27/2019 * Karson Madison Wang - 06/26/2019 10:38 AM EDT Nutrition Services [...] not allowed list for 3 full weeks. After School Program Teacher and patient discussed all foods on the allowed not allowed list in great detail. Patient had a list of questions, lyric writer answered all questions patient had. Discussed incorporating supplemental shakes for additional calories and protein consumption. After School Program Teacher will also provide 2 Boost Plus shakes [...] soda after 3 days of her procedure. After School Program Teacher encouraged patient to avoid soda for 3 weeks and if any concern, to check with her PA. Patient expressed good understanding. Patient consumed cream of rice cereal, and apple juice for breakfast. After School Program Teacher collected patient???s diet appropriate lunch choices to promote and encourage PO Intake with foods patient likes. Encouraged strained soup, patient states that she does not have a bindery library technical assistant at home. Suggested pre made broth soup [...] consulted in the interim. NAVIN Crook Pager #[phone] * Margaret Rios PA - 06/26/2019 7:46 [...] four extremities spontaneously Labs: Recent Labs 06/26/19 033 WBC 15.4* HGB 8.2* HCT 28.2* PLATELET [...] quietly with even and unlabored respirations. PACU vice president medical affairs notified. Labs ordered. Will continue to monitor. [...] with her today the entire time in znoa-de-wlka conversation regarding these issues PMH: Past Medical History: Diagnosis Date ??? Anxiety ??? Asthma ??? Back spasm ??? GERD (gastroesophageal reflux disease) ??? Hiatal hernia ??? HTN (hypertension) ??? Umbilical hernia PSH: Past Surgical History: Procedure Laterality Date ??? PRO LAP, ESOPHAGOGAST FUNDOPLASTY N/A 09/09/2016 LAPAROSCOPIC BECCA FUNDOPLASTY (WRVU 18.1) performed by Mariaelena Godinez MD at [facility] MAIN OR ??? PRO UPPER GI ENDOSCOPY, BIOPSY N/A 07/30/2016 EGD WITH BIOPSY (WRVU 2.49) performed by Jovani Treviño MD at [facility] ENDOSCOPY Medications: No current facility-administered medications [...] file Gets together: Not on file Attends mandaeism service: Not on file Active member of [...] provided Goal: Fall Prevention-Safe Patient Handling 06/27/19 0806/27/19231906/28/19220 Daily Care Interventions Self-Care Promotion independence encouraged [...] front-wheel walker -- Goal: Infection Control 06/27/19 0806/28/19220 Safety Interventions Isolation Precautions standard precautions maintained -- Infection Prevention rest/sleep promoted -- Coping Strategies Supportive Measures -- active listening utilized Goal: Discharge Needs Assessment 06/26/195 06/26/19 1454 Discharge Needs Assessment Readmission Within [...] care. Outcome: Ongoing (Interventions Implemented as Appropriate) 06/26/195 Pain, Acute (Adult) Acceptable Pain Control/Comfort Level [...] care. Outcome: Ongoing (Interventions Implemented as Appropriate) 06/26/19 0445 Nausea/Vomiting (Adult) Adequate Hydration making progress toward outcome Problem: Pain, Acute (Adult) Goal: Acceptable Pain Control/Comfort Level Patient will demonstrate the desired outcomes by discharge/transition of care. Outcome: Ongoing (Interventions Implemented as Appropriate) 06/26/19 0445 Pain, Acute (Adult) Acceptable Pain Control/Comfort Level [...] file: MEDICARE Secondary Insurance on file: MEDICAID MD Primary care provider on file: Talisha Treviño MD [phone] Advance Directive on file and Code Status: <no information>, Full Code HAS ADVANCED DIRECTIVE, REQUESTED COPY. MOTHER SPEAKS FOR DAUGHTER Patient???s Functional Status: bedrest, independent prior Living Situation:lives with velasquez, and mother lives [place] [address] in [facility]. Mother and velasqueze will be with her 24-7 [address] [facility] [address] [facility] [address] Supports:Mother and carmen Assessment: Patient with no apparent RNCM/SW needs at this time. No housing, transportation, insurance, resources concerns identified at this time. Supports in place to achieve a safe post-hospital transition. No identified barriers to accessing necessary care and/or follow-up after discharge. Plan: Patient to d/c to home via private car tomorrow if pain controlled and medically ready. night order selector/Instructor Ground Services will continue to follow patient???s progress and remain available if situation changes for coordination of care, psychosocial support and/or discharge planning. Vale Solis RN Pager [phone] * Op Note - Mariaelena Godinez MD - 06/26/2019 1:43 PM EDT [facility] Operative Note Patient Name: Ruby Sprague : [id number] MR#: [id number] Case Date: 06/25/2019 Surgeon: Surgeon(s) and Role: [...] and reformed a fundoplication over a 60 Mongolian bougie there were no complications. Details of [...] the esophagus and thiswas encircled with a Trezevant drain was was held in place using [...] direction posterior to the esophagus a 60 Mongolian bougie was passed by anesthesia down the [...] is irrigated excellent hemostasis was assured the Trezevant drain was cut and removed the liver [...] Handling Outcome: Ongoing (Interventions Implemented as Appropriate) 06/25/19 192 Perera Fall Risk History of Falling 0 [...] Nausea/Vomiting (Adult) Intervention: Minimize Nausea Triggers/Manage Symptoms 06/26/19 0050 06/26/19444 Coping/Psychosocial Interventions Environmental Support -- calm [...] Operative Note Patient Name: Ruby Sprague : [id number] MR#: [id number] Case Date: 06/25/2019 Surgeon: Surgeon(s) and Role: [...] recurrent hiatal hernia Upper GI Endoscopy, Diagnostic (60985) Yes 06/25/2019 11:14 AM EDT recurrent hiatal hernia Unlisted Laparoscopic Procedure Esophagus (57902) Yes 06/25/2019 11:14 AM EDT recurrent hiatal hernia Unlisted Laparoscopic Procedure Esophagus (28005) Yes 06/25/2019 11:14 AM EDT recurrent hiatal hernia ABORH RECHECK STATUS STAT 06/25/2019 9:59 AM EDT HC ABO-MICROTITER STAT 06/25/2019 9:5 9 AM EDT ABO/RH TYPING STAT 06/25/2019 9:59 AM EDT ANTIBODY SCREEN STAT 06/25/2019 9:59 AM EDT documented in this encounter Results * (ABNORMAL) Differential, Automated (06/28/2019 7:21 AM EDT) [facility] Neutrophil % 62.7 % [facility] Neutrophil Absolute 5.66 1.70 - 6.10 x10(3)/[facility] Lymph % 23.1 % [facility] Lymphocytes Abs 2.1 0.9 - 3.2 x10(3)/[facility] Monocyte % 11.2 % [facility] Monocyte Abs 1.0(H) 0.3 - 0.9 x10(3)/[facility] Eos % 2.1 % [facility] Eosinophils Abs 0.2 0.0 - 0.4 x10(3)/[facility] Basophil % 0.7 % [facility] Baso Absolute 0.1 0.0 - 0.1 x10(3)/[facility] Immature Gran % 0.20 % [facility] Comment: Immature granulocytes(IG's)percentage and absolute count will include metamyelocytes, myelocytes, and promyelocytes. Blood smears from CBCs yielding IG's will be scanned manually for concordance. If this scan disagrees with the automated IG or if promyelocytes are noted, a manual differential will be performed. Immature Gran Absolute 0.02 0.00 - 0.04 x10(3)/[facility] Blood specimen (specimen) 06/28/2019 7:21 AM EDT 06/28/2019 7:26 AM EDT Narrative Resulting Agency Comment Spec In Lab Margaert VARNER HEMATOLOGY ORDERABLE S [facility] [place] [address] * (ABNORMAL) Hemogram (06/28/2019 7:21 AM EDT) [facility] White Blood Cell 9.0 4.0 - 9.5 x10(3)/[facility] Red Blood Cell 4.38 4.00 - 5.21 x10(6)/[facility] Hemoglobin 9.0(L) 11.7 - 15.5 gm/dL [facility] Hematocrit 29.7(L) 35.7 - 45.8 % [facility] Mean Cell Volume 67.8(L) 82.6 - 94.4 fL [facility] Mean Cell Hemoglobin 20.5(L) 27.1 - 32.0 pg [facility] Mean Cell Hemoglobin Concentration 30.3(L) 31.7 - 35.0 gm/dL [facility] Platelet 384(H) 145 - 357 x10(3)/mc L [facility] RDW Standard Deviation 48.1(H) 37.0 - 46.0 [facility] RDW coefficient of variation 19.8(H) 11.5 - 14.1 % [facility] Mean Platelet Volume 9.4 7.6 - 12.9 [facility] NRBC% auto 0.0 % [facility] NRBC Absolute 0.000 0.000 - 0.000 x10(3)/mc L [facility] Blood specimen (specimen) 06/28/2019 7:21 AM EDT 06/28/2019 7:26 AM EDT Narrative Resulting Agency Comment Spec In Lab Margaret VARNER HEMATOLOGY ORDERABLE S Performing Organization Address City/State/[facility] Co de Phone Number [facility] [place] [address] * Phosphorus (06/28/2019 7:21 AM EDT) Phosphorus 4.0 2.5 - 4.5 mg/dL [facility] Comment:result rechecked-sabrina Blood specimen (specimen) 06/28/2019 7:21 AM EDT 06/28/2019 7:26 AM EDT Narrative Resulting Agency Comment Spec In Lab Mariaelena Godinez MD CHEMISTRY ORDERABLE S [facility] [place] [address] * Magnesium (06/28/2019 7:21 AM EDT) Pathologist [facility] Magnesium 0.86 0.69 - 1.07 mmol/L [facility] Blood specimen (specimen) 06/28/2019 7:21 AM EDT 06/28/2019 7:26 AM EDT Narrative Resulting Agency Comment Spec In Lab Mariaelena Godinez MD CHEMISTRY ORDERABLE S [facility] [place] [address] * (ABNORMAL) Basic Metabolic Panel (non-fasting) (06/28/2019 7:21 AM EDT) [facility] Glucose 99 65 - 199 mg/dL [facility] Comment:Diabetes: >=200 mg/d L plus symptoms Blood Urea Nitrogen 7(L) 8 - 18 mg/dL [facility] Creatinine 0.55(L) 0.70 - 1.20 mg/dL [facility] Sodium 138 135 - 145 mmol/L [facility] Potassium 2.9(Criti navneet) 3.5 - 5.0 mmol/L [facility] Comment: Called by: sabrina, Read back by: Ruby Morton, Date/Time:06/28/19 08:12. Please note: ??Patients with WBC >100,000 may have falsely elevated Potassium levels. ??For accurate Potassium quantification in these patients send serum separator tube (gold top) for subsequent determinations. ??Contact the Clinical Chemistry Laboratory if there are any questions. Chloride 99 98 - 107 mmol/L [facility] Carbon Dioxide 26 22 - 31 mmol/L [facility] Anion Gap 13 5 - 15 mmol/L [facility] Calcium 9.1 8.5 - 10.5 mg/dL [facility] Est Glomerular Filtration Rate 116 >=60 mL/min/1. 73 m?? [facility] Comment: The eGFR was calculated using the CKD-EPI equation. As with all creatinine based estimates of kidney function, eGFR values calculated with the CKD-EPI equation are not accurate in patients with acute kidney failure, extremes of body mass or the acutely ill. [email or web address] eGFR 135 >=60 mL/min/1. 73 m?? [facility] Comment: The eGFR was calculated using the CKD-EPI equation. As with all creatinine based estimates of kidney function, eGFR values calculated with the CKD-EPI equation are not accurate in patients with acute kidney failure, extremes of body mass or the acutely ill. [email or web address] Blood specimen (specimen) 06/28/2019 7:21 AM EDT 06/28/2019 7:26 AM EDT Narrative Resulting Agency Comment Spec In Lab Mariaelena Godinez MD CHEMISTRY ORDERABLE S [facility] [place] [id number] * CT Angiogram Chest for Pulmonary Embolus [...] report, please contact the number below. ? Electronically signed by: PAUL Sykes [facility] ([phone]), at 06/27/2019 5:43 PM Narrative 06/27/2019 5:43 PM EDT EXAMINATION: CTA [...] * (ABNORMAL) Phosphorus (06/27/2019 8:11 AM EDT) Phosphorus 2.2(L) 2.5 - 4.5 mg/dL [facility] Blood specimen (specimen) Venous Draw / Unknown 06/27/2019 8:11 AM EDT 06/27/2019 8:35 AM EDT Narrative Resulting Agency Comment Spec In Lab Atif Mendez MD CHEMISTRY ORDERABLES [facility] [place] [address] * Magnesium (06/27/2019 8:11 AM EDT) Magnesium 0.74 0.69 - 1.07 mmol/L [facility] Blood specimen (specimen) Venous Draw / Unknown 06/27/2019 8:11 AM EDT 06/27/2019 8:35 AM EDT Narrative Resulting Agency Comment Spec In Lab Atif Mendez MD CHEMISTRY ORDERABLES Performing Organization Address [facility] Co de Phone Number [facility] [place] [address] * Troponin (06/27/2019 8:11 AM EDT) Pathologist [facility] Troponin-T <0.01 0.00 - 0.00 ng/mL [facility] Comment: The 99th percentile for [...] ischemia ?? New or presumed new significant RX-[id number] wave (ST-T) changes or new left bundle [...] additional sample may be indicated. Reference: [place] Definition of Myocardial Infarction. Journal of the [place] [employer] 2012;60:1581-98 Blood specimen (specimen) 06/27/2019 8:11 AM EDT 06/27/2019 8:35 AM EDT Narrative Resulting Agency Comment Spec In Lab Mariaelena Godinez MD CHEMISTRY ORDERABLE S Performing Organization Address [facility] Co de Phone Number [facility] [place] [address] * (ABNORMAL) Differential, Automated (06/27/2019 8:11 AM EDT) [facility] Neutrophil % 68.3 % [facility] Neutrophil Absolute 7.46(H) 1.70 - 6.10 x10(3)/[facility] Lymph % 20.0 % [facility] Lymphocytes Abs 2.2 0.9 - 3.2 x10(3)/[facility] Monocyte % 10.1 % [facility] Monocyte Abs 1.1(H) 0.3 - 0.9 x10(3)/[facility] Eos % 0.6 % [facility] Eosinophils Abs 0.1 0.0 - 0.4 x10(3)/[facility] Basophil % 0.5 % [facility] Baso Absolute 0.0 0.0 - 0.1 x10(3)/[facility] Immature Gran % 0.50 % [facility] Comment: Immature granulocytes(IG's)percentage and absolute count will include metamyelocytes, myelocytes, and promyelocytes. Blood smears from CBCs yielding IG's will be scanned manually for concordance. If this scan disagrees with the automated IG or if promyelocytes are noted, a manual differential will be performed. Immature Gran Absolute 0.05(H) 0.00 - 0.04 x10(3)/[facility] Blood specimen (specimen) 06/27/2019 8:11 AM EDT 06/27/2019 8:35 AM EDT Narrative Resulting Agency Comment Spec In Lab Margaret VARNER HEMATOLOGY ORDERABLE S [facility] [place] [address] * (ABNORMAL) Hemogram (06/27/2019 8:11 AM EDT) White Blood Cell 10.9(H) 4.0 - 9.5 x10(3)/[facility] Red Blood Cell 4.13 4.00 - 5.21 x10(6)/[facility] Hemoglobin 8.3(L) 11.7 - 15.5 gm/dL [facility] Hematocrit 28.3(L) 35.7 - 45.8 % [facility] Mean Cell Volume 68.5(L) 82.6 - 94.4 fL [facility] Mean Cell Hemoglobin 20.1(L) 27.1 - 32.0 pg [facility] Mean Cell Hemoglobin Concentration 29.3(L) 31.7 - 35.0 gm/dL [facility] Platelet 415(H) 145 - 357 x10(3)/mc L [facility] RDW Standard Deviation 48.4(H) 37.0 - 46.0 fL [facility] RDW coefficient of variation 20.0(H) 11.5 - 14.1 % [facility] Mean Platelet Volume 10.3 7.6 - 12.9 fL [facility] NRBC% auto 0.0 % [facility] NRBC Absolute 0.000 0.000 - 0.000 x10(3)/mc L [facility] Blood specimen (specimen) 06/27/2019 8:11 AM EDT 06/27/2019 8:35 AM EDT Narrative Resulting Agency Comment Spec In Lab Margaret VARNER HEMATOLOGY ORDERABLE S [facility] [place] [address] * (ABNORMAL) Basic Metabolic Panel (non-fasting) (06/27/2019 8:11 AM EDT) Glucose 111 65 - 199 mg/dL [facility] Comment:Diabetes: >=200 mg/d L plus symptoms Blood Urea Nitrogen 5(L) 8 - 18 mg/dL [facility] Creatinine 0.65(L) 0.70 - 1.20 mg/dL [facility] Sodium 140 135 - 145 mmol/L [facility] Potassium 2.7(Criti navneet) 3.5 - 5.0 mmol/L [facility] Comment: Results rechecked Called by: tamy, Read back by: Laurel Ayoub, Date/Time:06/27/19 09:21. Please note: ??Patients with WBC >100,000 may have falsely elevated Potassium levels. ??For accurate Potassium quantification in these patients send serum separator tube (gold top) for subsequent determinations. ??Contact the Clinical Chemistry Laboratory if there are any questions. Chloride 104 98 - 107 mmol/L [facility] Carbon Dioxide 25 22 - 31 mmol/L [facility] Anion Gap 11 5 - 15 mmol/L [facility] Calcium 8.8 8.5 - 10.5 mg/dL [facility] Est Glomerular Filtration Rate 110 >=60 mL/min/1. 73 m?? [facility] Comment: The eGFR was calculated using the CKD-EPI equation. As with all creatinine based estimates of kidney function, eGFR values calculated with the CKD-EPI equation are not accurate in patients with acute kidney failure, extremes of body mass or the acutely ill. [email or web address] eGFR 128 >=60 mL/min/1. 73 m?? [facility] Comment: The eGFR was calculated using the CKD-EPI equation. As with all creatinine based estimates of kidney function, eGFR values calculated with the CKD-EPI equation are not accurate in patients with acute kidney failure, extremes of body mass or the acutely ill. [email or web address] Blood specimen (specimen) 06/27/2019 8:11 AM EDT 06/27/2019 8:35 AM EDT Narrative Resulting Agency Comment Spec In Lab Mariaelena Godinez MD CHEMISTRY ORDERABLE S [facility] [place] [address] * EKG 12 Lead (06/27/2019 7:21 AM EDT) Ventricular rate 109 BPM MUSE SYSTEM Atrial Rate 109 BPM MUSE SYSTEM P-R Interval 162 ms MUSE SYSTEM QRS Duration 80 ms MUSE SYSTEM Q-T Interval 328 ms MUSE SYSTEM QTC Calculated (Bezet) 441 ms MUSE SYSTEM Calculated P [place] 49 degrees MUSE SYSTEM Calculated R [place] 17 degrees MUSE SYSTEM Calculated T [place] -64 degrees MUSE SYSTEM INTERPRETATION Sinus tachycardia ST & T wave abnormality, consider anterolateral ischemia Abnormal ECG When compared with ECG of 06-OCT-2016 09:47, ST & T wave inversion now evident in Anterolateral leads I personally reviewed the tracing and edited the fellows interpretation Confirmed by fellow SenserJose Carlos ([id number]) on 06/27/2019 1:44:51 PM Confirmed by Kiera Woodard ([id number]) on 06/27/2019 3:12:50 PM MUSE SYSTEM 06/27/2019 7:21 AM EDT 06/27/2019 3:12 PM EDT Atif Mendez MD ECG ORDERABLES Performing Organization Address City/[facility]/ZIP Co de Phone Number MUSE SYSTEM * Scan, Peripheral Blood (06/26/2019 11:36 AM EDT) Plat estimate Increased [facility] RBC Morphology Abnormal [facility] Microcyte 1-5 /HPF [facility] Hypochromia Slight [facility] Ovalocytes 1-5 /HPF [facility] Blood specimen (specimen) 06/26/2019 11:36 AM EDT 06/26/2019 11:50 AM EDT Narrative Resulting Agency Comment Spec In Lab Margaret VARNER HEMATOLOGY ORDERABLE S [facility] [place] [address] * (ABNORMAL) Differential, Automated (06/26/2019 11:36 AM EDT) Neutrophil % 77.7 % [facility] Neutrophil Absolute 11.02(H) 1.70 - 6.10 x10(3)/mc L [facility] Lymph % 11.0 % [facility] Lymphocytes Abs 1.6 0.9 - 3.2 x10(3)/ L [facility] Monocyte % 10.6 % [facility] Monocyte Abs 1.5(H) 0.3 - 0.9 x10(3)/ L [facility] Eos % 0.1 % [facility] Eosinophils Abs 0.0 0.0 - 0.4 x10(3)/[facility] Basophil % 0.1 % [facility] Baso Absolute 0.0 0.0 - 0.1 x10(3)/[facility] Immature Gran % 0.50 % [facility] Comment: Immature granulocytes(IG's)percentage and absolute count will include metamyelocytes, myelocytes, and promyelocytes. Blood smears from CBCs yielding IG's will be scanned manually for concordance. If this scan disagrees with the automated IG or if promyelocytes are noted, a manual differential will be performed. Immature Gran Absolute 0.07(H) 0.00 - 0.04 x10(3)/[facility] Blood specimen (specimen) 06/26/2019 11:36 AM EDT 06/26/2019 11:50 AM EDT Narrative Resulting Agency Comment Spec In Lab Margaret VARNER HEMATOLOGY ORDERABLE S [facility] [place] [address] * (ABNORMAL) Hemogram (06/26/2019 11:36 AM EDT) White Blood Cell 14.2(H) 4.0 - 9.5 x10(3)/[facility] Red Blood Cell 4.14 4.00 - 5.21 x10(6)/[facility] Hemoglobin 8.3(L) 11.7 - 15.5 gm/dL [facility] Hematocrit 28.2(L) 35.7 - 45.8 % [facility] Mean Cell Volume 68.1(L) 82.6 - 94.4 fL [facility] Mean Cell Hemoglobin 20.0(L) 27.1 - 32.0 pg [facility] Mean Cell Hemoglobin Concentration 29.4(L) 31.7 - 35.0 gm/dL [facility] Platelet 417(H) 145 - 357 x10(3)/mc L [facility] RDW Standard Deviation 48.2(H) 37.0 - 46.0 fL [facility] RDW coefficient of variation 20.0(H) 11.5 - 14.1 % [facility] Mean Platelet Volume 9.7 7.6 - 12.9 fL [facility] NRBC% auto 0.0 % [facility] NRBC Absolute 0.000 0.000 - 0.000 x10(3)/mc L [facility] Blood specimen (specimen) 06/26/2019 11:36 AM EDT 06/26/2019 11:50 AM EDT Narrative Resulting Agency Comment Spec In Lab Margaret VARNER HEMATOLOGY ORDERABLE S [facility] [place] [address] * Scan, Peripheral Blood (06/26/2019 3:39 AM EDT) Plat estimate Increased [facility] RBC Morphology Abnormal [facility] Microcyte 1-5 /HPF [facility] Hypochromia Slight [facility] Ovalocytes 6-10 /HPF [facility] [place] Cells 1-5 /HPF [facility] Blood specimen (specimen) 06/26/2019 3:39 AM EDT 06/26/2019 4:38 AM EDT Narrative Resulting Agency Comment Spec In Lab Atif Mendez MD HEMATOLOGY ORDERABLE S Performing Organization Address City/[facility]/ZIP Co de Phone Number [facility] [place] [address] * (ABNORMAL) Differential, Automated (06/26/2019 3:39 AM EDT) Neutrophil % 83.9 % [facility] Neutrophil Absolute 12.93(H) 1.70 - 6.10 x10(3)/mc L [facility] Lymph % 6.9 % [facility] Lymphocytes Abs 1.1 0.9 - 3.2 x10(3)/ L [facility] Monocyte % 8.4 % [facility] Monocyte Abs 1.3(H) 0.3 - 0.9 x10(3)/ L [facility] Eos % 0.0 % [facility] Eosinophils Abs 0.0 0.0 - 0.4 x10(3)/[facility] Basophil % 0.1 % [facility] Baso Absolute 0.0 0.0 - 0.1 x10(3)/[facility] Immature Gran % 0.70 % [facility] Comment: Immature granulocytes(IG's)percentage and absolute count will include metamyelocytes, myelocytes, and promyelocytes. Blood smears from CBCs yielding IG's will be scanned manually for concordance. If this scan disagrees with the automated IG or if promyelocytes are noted, a manual differential will be performed. Immature Gran Absolute 0.11(H) 0.00 - 0.04 x10(3)/ L [facility] Blood specimen (specimen) 06/26/2019 3:39 AM EDT 06/26/2019 4:38 AM EDT Narrative Resulting Agency Comment Spec In Lab Atif Mendez MD HEMATOLOGY ORDERABLE S Performing Organization Address [facility]/ZIP Co de Phone Number [facility] [place] [address] * (ABNORMAL) Hemogram (06/26/2019 3:39 AM EDT) White Blood Cell 15.4(H) 4.0 - 9.5 x10(3)/[facility] Red Blood Cell 4.01 4.00 - 5.21 x10(6)/[facility] Hemoglobin 8.2(L) 11.7 - 15.5 gm/dL [facility] Hematocrit 28.2(L) 35.7 - 45.8 % [facility] Mean Cell Volume 70.3(L) 82.6 - 94.4 fL [facility] Mean Cell Hemoglobin 20.4(L) 27.1 - 32.0 pg [facility] Mean Cell Hemoglobin Concentration 29.1(L) 31.7 - 35.0 gm/dL [facility] Platelet 419(H) 145 - 357 x10(3)/[facility] RDW Standard Deviation 49.9(H) 37.0 - 46.0 [facility] RDW coefficient of variation 19.8(H) 11.5 - 14.1 % [facility] Mean Platelet Volume 10.3 7.6 - 12.9 [facility] NRBC% auto 0.0 % [facility] NRBC Absolute 0.000 0.000 - 0.000 x10(3)/[facility] Blood specimen (specimen) 06/26/2019 3:39 AM EDT 06/26/2019 4:38 AM EDT Narrative Resulting Agency Comment Spec In Lab Atif Mendez MD HEMATOLOGY ORDERABLE S [facility] [place] [address] * (ABNORMAL) Basic Metabolic Panel (non-fasting) (06/26/2019 3:39 AM EDT) Pathologist [facility] Glucose 144 65 - 199 mg/dL [facility] Comment:Diabetes: >=200 mg/d L plus symptoms Blood Urea Nitrogen 11 8 - 18 mg/dL [facility] Creatinine 0.64(L) 0.70 - 1.20 mg/dL [facility] Sodium 139 135 - 145 mmol/L [facility] Potassium 3.5 3.5 - 5.0 mmol/L [facility] Comment: Please note: ??Patients with WBC >100,000 may have falsely elevated Potassium levels. ??For accurate Potassium quantification in these patients send serum separator tube (gold top) for subsequent determinations. ??Contact the Clinical Chemistry Laboratory if there are any questions. Chloride 109(H) 98 - 107 mmol/L [facility] Carbon Dioxide 21(L) 22 - 31 mmol/L [facility] Anion Gap 9 5 - 15 mmol/L [facility] Calcium 8.5 8.5 - 10.5 mg/dL [facility] Est Glomerular Filtration Rate 111 >=60 mL/min/1. 73 m?? [facility] Comment: The eGFR was calculated using the CKD-EPI equation. As with all creatinine based estimates of kidney function, eGFR values calculated with the CKD-EPI equation are not accurate in patients with acute kidney failure, extremes of body mass or the acutely ill. [email or web address]/DHMCnkf eGFR 128 >=60 mL/min/1. 73 m?? [facility] Comment: The eGFR was calculated using the CKD-EPI equation. As with all creatinine based estimates of kidney function, eGFR values calculated with the CKD-EPI equation are not accurate in patients with acute kidney failure, extremes of body mass or the acutely ill. [email or web address] Blood specimen (specimen) 06/26/2019 3:39 AM EDT 06/26/2019 4:38 AM EDT Narrative Resulting Agency Comment Spec In Lab Atif Mendez MD CHEMISTRY ORDERABLES [facility] [place] [address] * Phosphorus (06/25/2019 2:52 PM EDT) Phosphorus 3.4 2.5 - 4.5 mg/dL [facility] Blood specimen (specimen) 06/25/2019 2:52 PM EDT 06/25/2019 3:11 PM EDT Narrative Resulting Agency Comment Spec In Lab Mariaelena Godinez MD CHEMISTRY ORDERABLE S Performing Organization Address [facility]/ZIP Co de Phone Number [facility] [place] [address] * Magnesium (06/25/2019 2:52 PM EDT) Pathologist [facility] Magnesium 0.79 0.69 - 1.07 mmol/L [facility] Blood specimen (specimen) 06/25/2019 2:52 PM EDT 06/25/2019 3:11 PM EDT Narrative Resulting Agency Comment Spec In Lab Mariaelena Godinez MD CHEMISTRY ORDERABLE S Performing Organization Address City/[facility]/ZIP Co de Phone Number [facility] [place] [address] * (ABNORMAL) Basic Metabolic Panel (non-fasting) (06/25/2019 2:52 PM EDT) Pathologist [facility] Glucose 281(H) 65 - 199 mg/dL [facility] Comment:Diabetes: >=200 mg/d L plus symptoms Blood Urea Nitrogen 13 8 - 18 mg/dL [facility] Creatinine 0.88 0.70 - 1.20 mg/dL [facility] Sodium 138 135 - 145 mmol/L [facility] Potassium 3.6 3.5 - 5.0 mmol/L [facility] Comment: Please note: ??Patients with WBC >100,000 may have falsely elevated Potassium levels. ??For accurate Potassium quantification in these patients send serum separator tube (gold top) for subsequent determinations. ??Contact the Clinical Chemistry Laboratory if there are any questions. Chloride 106 98 - 107 mmol/L [facility] Carbon Dioxide 20(L) 22 - 31 mmol/L [facility] Anion Gap 12 5 - 15 mmol/L [facility] Calcium 8.6 8.5 - 10.5 mg/dL [facility] Est Glomerular Filtration Rate 82 >=60 mL/min/1. 73 m?? [facility] Comment: The eGFR was calculated using the CKD-EPI equation. As with all creatinine based estimates of kidney function, eGFR values calculated with the CKD-EPI equation are not accurate in patients with acute kidney failure, extremes of body mass or the acutely ill. http://Crowdmark/[employer] eGFR 95 >=60 mL/min/1. 73 m?? [facility] Comment: The eGFR was calculated using the CKD-EPI equation. As with all creatinine based estimates of kidney function, eGFR values calculated with the CKD-EPI equation are not accurate in patients with acute kidney failure, extremes of body mass or the acutely ill. http://[email or web address]/DHMCnkf Blood specimen (specimen) 06/25/2019 2:52 PM EDT 06/25/2019 3:11 PM EDT Narrative Resulting Agency Comment Spec In Lab Mariaelena Godinez MD CHEMISTRY ORDERABLE S Performing Organization Address City/[facility]/ZIP Co de Phone Number [facility] [place] [address] * ABORH Recheck Status (06/25/2019 9:59 AM EDT) ABORH Type Recheck Completed [facility] Blood specimen (specimen) 06/25/2019 9:59 AM EDT 06/25/2019 10:01 AM EDT Narrative Resulting Agency Comment Spec In Lab Mariaelena Godinez MD BLOOD BANK LAB ORDE RABLES [facility] [place] [address] * Antibody screen (06/25/2019 9:59 AM EDT) Ab Screen Interp Negative [facility] Expires at 2359 on: 06/28/2019 [facility] Blood specimen (specimen) 06/25/2019 9:59 AM EDT 06/25/2019 10:01 AM EDT Narrative Resulting Agency Comment Spec In Lab Mariaelena Godinez MD BLOOD BANK LAB ORDE SHAREE [facility] [place] [address] * ABO/Rh Typing (06/25/2019 9:59 AM EDT) ABORH Type A Pos [facility] Blood specimen (specimen) 06/25/2019 9:59 AM EDT 06/25/2019 10:01 AM EDT Narrative Resulting Agency Comment Spec In Lab Mariaelena Godinez MD BLOOD BANK LAB ORDE SHAREE Performing Organization Address City/[facility]/ZIP Co de Phone Number [facility] [place] [address] documented in this encounter Visit Diagnoses Not [...] Tue06/25/19 at 1743, Until Tue06/28/19 at 1821, Nausea, May repeat times one [...] RN)202 (Given - Provider: Adelina Mills RN) 0920 (Given - Provider: Alia Ramos RN)1308 (Given - Provider: Alia Ramos RN)1834 (Given - Provider: Alia Ramos RN)212 (Given - Provider: Gucci Elmore, DAVID) 0925 (Given - Provider: Sandrine Morton, DAVID)1339 (Given - Provider: Sandrine Morton RN) cyclobenzaprine (Flexeril) tablet 10 mg 10 mg, Oral, 2 TIMES DAILY, First dose on Tue06/26/19 at 0900, Until Discontinued, Routine 0859 (Given - Provider: Macy Gamez RN)2100 (Not Given - Provider: Adelina Mills RN - Reason: Patient/family refused) 0920 (Not Given - Provider: Alia Ramos RN - Reason: Patient/family refused)212 (Given - Provider: Gucci [place]more, DAVID) 0925 (Given - Provider: Sandrine Morton RN) hydroCHLOROthiazide (Hydrodiuril) tablet 25 mg 25 mg, Oral, DAILY, First dose on Tue06/26/19 at 0900, Until Discontinued, Routine 0859 (Given - Provider: Macy Gamez, DAVID) 09 (Given - Provider: Alia Ramos RN - Comment: BP 155/87, kristin VARNER) 09 (Given - Provider: Sandrine Morton, DAVID) potassium chloride ER (K-Dur/Klor-Con) tablet 20 mEq 20 mEq, Oral, 3 TIMES DAILY, 6 doses, First dose on Tue06/27/19 at 1000, Last dose on Tue06/28/19 at 2100, 20 mEq tablet may be dissolved in water for administration, Routine 1030 (Given - Provider: Alia Ramos RN)1450 (Given - Provider: Alia Ramos RN)212 (Given - Provider: Gucci Elmore, DAVID) 09 (Given - Provider: Sandrine Morton, DAVID)153 (Given - Provider: Sandrine Morton RN) sodium chloride 0.9 % (flush) flush 5 mL 5 mL, Intravenous, 2 TIMES DAILY, First dose on Tue06/25/19 at 2100, Until Discontinued, Recovery (Recovery-Hospital Unit), Routine 0028 (Given - Provider: Adelina Everett RN)09 (Given - Provider: Macy Gamez RN)2024 (Given - Provider: Adelina Mills RN) 09 (Given - Provider: Alia Ramos, DAVID)2120 (Given - Provider: Gucci Elmore, DAVID) 0926 (Given - Provider: Sandrine Morton RN) Continuous Medication Order 06/26/2019 06/27/2019 06/28/2019 lactated [...] Adelina Everett RN)1804 (Given - Provider: Ruby Cowan, DAVID) 1307 (Given - Provider: Alia Ramos RN) [...] Ruby Cowan RN)2212 (Given - Provider: Adelina Mills, DAVID) 0208 (Given - Provider: Adelina Mills RN)0614 (Given - Provider: Adelina Mills RN)1030 (Given - Provider: Alia Ramos RN)1450 (Given - Provider: Alia Ramos RN)1944 (Given - Provider: Gucci Elmore RN) 0221 (Given - Provider: Gucci Elmore RN)0931 (Given - Provider: Sandrine R Markwed, RN)1520 (Given - Provider: Darling Connelly RN) prochlorperazine (COMPAZINE) injection 10 mg 10 mg, Intravenous, EVERY 6 HOURS PRN, Starting on Tue06/25/19 at 2128, Until Bev 06/28/19 at 1821, Nausea, Routine 0048 (Given - Provider: Adelina Everett RN) 2137 (Given - Provider: Gucci Elmore RN) sodium [...] Unit) documented in this encounter Care Teams Yeast Culture Operator Relationship Specialty Start Date End Date Talisha Treviño MD [address] [place] [address] PCP - General Family Medicine 12/05/17 10/27/20 documented as of this encounter
--- OUTSIDE RECORDS SUMMARY | 2024-02-03 13:03 | XMS_ITS | Encounter Summary ---
Author Organization [facility] Address [facility] [place] [address] Care Team Providers Care Remedial Masseur Name Role Phone Talisha Treviño MD Primary Care Provider [phone] Reason for Visit * Reason Onset Date Comments Abdominal Pain 01/19/2019 from Neomycin Encounter Details Date Type Department Care Team (Late st Contact Info) Description 01/19/2019 Tele[place] [address] Nadia Myers Abdominal Pain (from Neomycin) Social [...] - 01/22/2019 9:10 AM EST Call returned. [facility] requesting call back. * Telephone [...] on filedocumented in this encounter Care Teams Remedial Masseur Relationship Specialty Start Date End Date Talisha Treviño MD [address] [place] [address] PCP - General Family Medicine 12/05/17 10/27/20 documented as of this encounter
--- OUTSIDE RECORDS SUMMARY | 2024-02-03 13:03 | XMS_ITS | Encounter Summary ---
Author Organization [facility] [place] [address] Care Team Providers Care Counter Stacker Name Role Phone Talisha Treviño MD Primary Care Provider [phone] Reason for Visit * Reason Comments Hernia Encounter Details Date Type Department Care Team (Latest Contact Info) Description 06/13/2019 1:20 PM EDT Office [place] [address] César Barron MD Paraesophageal hernia Social History [...] with her today the entire time in [id number] conversation regarding these issues documented in this encounter Plan of Treatment Not on file documented as of this encounter Visit Diagnoses Diagnosis Paraesophageal hernia Diaphragmatic hernia without mention of obstruction or gangrene documented in this encounter Care Teams Counter Stacker Relationship Specialty Start Date End Date Talisha Treviño MD [address] [place] [address] PCP - General Family Medicine 12/05/17 10/27/20 documented as of this encounter
--- OUTSIDE RECORDS SUMMARY | 2024-02-03 13:03 | XMS_ITS | Encounter Summary ---
Author Organization [facility] [place] [address] Care Team Providers Care Police Commissioner Name Role Phone Talisha Treviño MD Primary Care Provider [phone] Encounter Details Date Type Department Care Team (Late st Contact Info) Description 01/08/2019 [place] [phone] Tawana Newell RN Social History Tobacco Use [...] on filedocumented in this encounter Care Teams Police Commissioner Relationship Specialty Start Date End Date Talisha Treviño MD [address] [place] [address] PCP - General Family Medicine 12/05/17 10/27/20 documented as of this encounter
--- OUTSIDE RECORDS SUMMARY | 2024-02-03 13:03 | XMS_ITS | Encounter Summary ---
Author Organization [place] [address] Care Team Providers Care Haulpak Driver Name Role Phone Talisha Treviño MD Primary Care Provider [phone] Encounter Details Date Type Department Care Team (Late st Contact Info) Description 06/06/2019 Telephone [place] [phone] Geri Avalos Social History Tobacco Use Types [...] on filedocumented in this encounter Care Teams Haulpak Driver Relationship Specialty Start Date End Date Talisha Treviño MD [address] [place] [address] PCP - General Family Medicine 12/05/17 10/27/20 documented as of this encounter
--- OUTSIDE RECORDS SUMMARY | 2024-02-03 13:03 | XMS_ITS | Encounter Summary ---
Author Organization [facility] Address [facility] [place] [address] Care Team Providers Care Cold Press Loader Name Role Phone Talisha Treviño MD Primary Care Provider [phone] Reason for Visit * Reason Onset Date Comments Medication Refill 01/08/2019 Medication Refill 01/16/2019 Encounter Details Date Type Department Care Team (Late st Contact Info) Description 01/08/2019 Refill [place] [address] John Garner APRN [facility] [place] [address] Small intestinal bacterial overgrowth Social History Tobacco [...] overgrowth documented in this encounter Care Teams Cold Press Loader Relationship Specialty Start Date End Date Talisha Treviño MD [address] [place] [address] PCP - General Family Medicine 12/05/17 10/27/20 documented as of this encounter
--- OUTSIDE RECORDS SUMMARY | 2024-02-03 13:03 | XMS_ITS | Encounter Summary ---
Author Organization [place] [address] Care Team Providers Care Curtain Stitcher Name Role Phone Talisha Treviño MD Primary Care Provider [phone] Encounter Details Date Type Department Care Team (Late st Contact Info) Description 11/20/2018 Telephone [place] [phone] Tawana Newell RN Social History Tobacco Use [...] on filedocumented in this encounter Care Teams Curtain Stitcher Relationship Specialty Start Date End Date Talisha Treviño MD [address] [place] [address] PCP - General Family Medicine 12/05/17 10/27/20 documented as of this encounter
--- OUTSIDE RECORDS SUMMARY | 2024-02-03 13:03 | XMS_ITS | Encounter Summary ---
Author Organization [facility] Address [facility] [place] [address] Care Team Providers Care Clean Out Driller Helper Name Role Phone Edwardo Shital GONZALES Primary Care Provider [phone] Reason for Visit * Reason Onset Date Comments Constipation 08/09/2017 Encounter Details Date Type Department Care Team (Late st Contact Info) Description 08/09/2017 Telephone [place] [phone] Emmanuel Morel RN Constipation Social History Tobacco [...] 08/10/2017 9:17 AM EDT Received x-rays from [facility], these were faxed down to be scanned into the patients chart and originals were given to John Garner APRN for her review and to advise. * Telephone Encounter - Emmanuel Morel RN - 08/09/2017 1:42 PM EDT Patient calls complaining of severe constipation. No significant bowel movement for 1 month. Seen recently by urologist, Dr. David Felton in [facility], for removal of kidney stones. After an [...] x- ray first X-ray urgently requested from [facility]. Advised patient of above. Patient states she will probably go to ED in [place] to be seen instead. documented in this encounter Plan of Treatment Not on file documented as of this encounter Visit Diagnoses Not on filedocumented in this encounter Care Teams Clean Out Driller Helper Relationship Specialty Start Date End Date Shital Brooke APRN [address] [place] [address] PCP - General Family Medicine 07/20/16 12/04/17 documented as of this encounter
--- OUTSIDE RECORDS SUMMARY | 2024-02-03 13:03 | XMS_ITS | Encounter Summary ---
Author Organization [facility] [place] [address] Care Team Providers Care Roll Cutting Operator Name Role Phone Talisha Treviño MD Primary Care Provider [phone] Reason for Visit * Surgical (Routine) - Closed Specialty Diagnoses / Procedures Referred By Dayan parker Referred To Contact Gastroenterology Diagnoses Gas/bloat/distention Procedures Lactulose breath test John Garner APRN [facility] [address] [place] [address] [facility] [address] [address] [place] [address] Referral ID Status Reason Start Date Expiration Date Visits Re quested Visits Authorized [id number] Closed 09/18/2018 09/18/2019 1 1 Encounter Details Date Type Department Care Team (Latest Contact Info) Description 12/05/2018 8:00 AM EDT Procedure visit [place] [address] Small intestinal bacterial overgrowth; Bloating Social History [...] Breath Testing in Gastrointestinal Disorders: The [place] Consensus (Am J Gastroenterol 2017; 112(5):775-84. Apositive breath test is defined as a rise in hydrogen production >20 ppm compared to baseline within 90 minutes. Methane-positive is defined by at least 10 ppm production of methane. Signed, Angelic Villarreal APRN Gastroenterology and Hepatology [place] [id number] P: [phone] F: [phone] Copy: John Treviño MD documented in this encounter Plan of Treatment Not on file documented as of this encounter Visit Diagnoses Diagnosis Small intestinal bacterial overgrowth Bloating Flatulence, eructation, and gas pain documented in this encounter Care Teams Roll Cutting Operator Relationship Specialty Start Date End Date Talisha Treviño MD [address] [place], [place] [address] PCP - General Family Medicine 12/05/17 10/27/20 documented as of this encounter
--- OUTSIDE RECORDS SUMMARY | 2024-02-03 13:03 | XMS_ITS | Encounter Summary ---
Author Organization [facility] [place] [address] Care Team Providers Care Personal Injury Law Specialist Name Role Phone Talisha Treviño MD Primary Care Provider [phone] Encounter Details Date Type Department Care Team (Late st Contact Info) Description 05/30/2018 Telephone [place] [phone] Kaila Fontanez Social History Tobacco Use Types [...] Left a VM for PT to call [phone] to re-schedule June 21 appt with Leonadro Burris. documented in this encounter Plan of Treatment Not on file documented as of this encounter Visit Diagnoses Not on filedocumented in this encounter Care Teams Personal Injury Law Specialist Relationship Specialty Start Date End Date Talisha Treviño MD [address] [place] [address] PCP - General Family Medicine 12/05/17 10/27/20 documented as of this encounter
--- OUTSIDE RECORDS SUMMARY | 2024-02-03 13:03 | XMS_ITS | Encounter Summary ---
Author Organization [facility] [place] [address] Care Team Providers Care Gauge Controller Name Role Phone Talisha Treviño MD Primary Care Provider [phone] Encounter Details Date Type Department Care Team (Late st Contact Info) Description 06/11/2019 Telephone [place] [phone] Helena Kraus Social History Tobacco Use Types [...] on filedocumented in this encounter Care Teams Gauge Controller Relationship Specialty Start Date End Date Talisha Treviño MD [address] [place] [address] PCP - General Family Medicine 12/05/17 10/27/20 documented as of this encounter
--- OUTSIDE RECORDS SUMMARY | 2024-02-03 13:03 | XMS_ITS | Encounter Summary ---
Author Organization [facility] Address [facility] [address] [place] [address] Care Team Providers Care Unloading Checker Name Role Phone Talisha Treviño MD Primary Care Provider [phone] Encounter Details Date Type Department Care Team (Late st Contact Info) Description 12/18/2018 8:30 AM EST Office [place] [phone] John Garner APRN [facility] [place] [address] Small intestinal bacterial overgrowth Social History Tobacco [...] overgrowth documented in this encounter Care Teams Unloading Checker Relationship Specialty Start Date End Date Talisha Treviño MD [address] [place] [address] PCP - General Family Medicine 12/05/17 10/27/20 documented as of this encounter
--- OUTSIDE RECORDS SUMMARY | 2024-02-03 13:03 | XMS_ITS | Encounter Summary ---
Author Organization [facility] Address [facility] [place] [address] Care Team Providers Care Licensed Midwife Name Role Phone Talisha Treviño MD Primary Care Provider [phone] Reason for Visit * Reason Comments Pain Management new patient Back Pain * Consultation (Routine) - Closed Specialty Diagnoses / Procedures Referred By Dayan parker Referred To Contact Pain Management Diagnoses Chronic bilateral low back pain without sciatica Leonardo Burris [place] [facility] [place] [address] [facility] [address] [place] [phone] Referral ID Status Reason Start Date Expiration Date V isits Requested Visits Authorized [id number] Closed Consult, Test & Treat 06/22/2018 06/22/2019 1 1 Encounter Details Date Type Department Care Team (Late st Contact Info) Description 06/29/2018 10:00 AM EDT Office [place] [address] Angelic Hammond APRN Chronic bilateral low back pain without [...] Qi Gong 6) See handout for Functional Orthodoxy Program documented in this encounter Progress Notes [...] HISTORY: Lives with velasquez, velasquez works for [employer] She states she has been on disability [...] file Gets together: Not on file Attends roman catholic service: Not on file Active member of [...] LAPAROSCOPIC BECCA FUNDOPLASTY (WRVU 18.1) performed by Cséar Barron MD at [facility] MAIN OR ??? PRO UPPER GI ENDOSCOPY, BIOPSY N/A 07/30/2016 EGD WITH BIOPSY (WRVU 2.49) performed by Jovani Treviño MD at [facility] ENDOSCOPY ALLERGIES: Patient has no known [...] equal bilaterally; no skin breakdown ?? Palpation: tenderness points, Bilateral thoracic and lumbar spine [...] cessation and anti-inflammatory diet. Other considerations include resident care manager rn and cognitive behavioral therapy. If patient continues to have functional goals that she is not meeting I would recommend the Functional mormon program which she discussed with Leonardo Burris [...] - cognitive beavioral therapy 7) Consider Functional Orthodoxy Program Ruby Sprague had the opportunity to ask questions and indicated that all questions were answeredto her satisfaction. Thank you for the opportunity to participate in Ruby Sprague's care. Thank you for this referral, [place] [address]. Angelic Hammond, MSN, SACK FILLER- C, LOOM CONTROL CHAIN BUILDER Nurse Practitioner [facility] [address] [address] [facility] documented in this encounter Plan of Treatment Scheduled Referrals Name Type Priority Associated Diagnoses Orde r Schedule Referral to Pain Clinic Outpatient Referral Routine Chronic bilateral low back pain without sciatica Ordered: 06/22/2018 documented as of this encounter Visit Diagnoses Diagnosis Chronic bilateral low back pain without sciatica documented in this encounter Care Teams Licensed Midwife Relationship Specialty Start Date End Date Talisha Treviño MD [address] [place] [address] PCP - General Family Medicine 12/05/17 10/27/20 documented as of this encounter
--- OUTSIDE RECORDS SUMMARY | 2024-02-03 13:03 | XMS_ITS | Encounter Summary ---
Author Organization [facility] [place] [address] Care Team Providers Care Bee Keeper Name Role Phone Talisha Treviño MD Primary Care Provider [phone] Encounter Details Date Type Department Care Team (Late st Contact Info) Description 06/12/2019 Telephone Gastroenterology [place] [phone] Hodan Singleton RN Social History Tobacco Use [...] medication. Before returning call to patient, this typewriter aligner reviewed the chart. Patient had a positive [...] that she is seeing a surgeon at [facility] tomorrow, 06/13/19, for her hernia. Explained to [...] on filedocumented in this encounter Care Teams Bee Keeper Relationship Specialty Start Date End Date Talisha Treviño MD [address] [place] [address] PCP - General Family Medicine 12/05/17 10/27/20 documented as of this encounter
--- OUTSIDE RECORDS SUMMARY | 2024-02-03 13:03 | XMS_ITS | Encounter Summary ---
Author Organization [facility] Address [facility] Chris [address] [address] Care Team Providers Care Adult Nurse Practitioner Name Role Phone Talisha Treviño MD Primary Care Provider [phone] Reason for Visit * Reason Onset Date Comments Medication Refill 01/23/2019 Encounter Details Date Type Department Care Team (Late st Contact Info) Description 01/23/2019 Refill [place] [address] John Garner APRN [facility] [place] [address] Small intestinal bacterial overgrowth Social History Tobacco [...] overgrowth documented in this encounter Care Teams Adult Nurse Practitioner Relationship Specialty Start Date End Date Talisha Treviño MD [address] [place] [address] PCP - General Family Medicine 12/05/17 10/27/20 documented as of this encounter
--- OUTSIDE RECORDS SUMMARY | 2024-02-03 13:03 | XMS_ITS | Encounter Summary ---
Author Organization [facility] [place] [address] Care Team Providers Care Olive Brine Tester Name Role Phone Talisha Treviño MD Primary Care Provider [phone] Encounter Details Date Type Department Care Team (Late st Contact Info) Description 09/15/2018 [place] [phone] Maria Guadalupe Turner Social History Tobacco Use [...] on filedocumented in this encounter Care Teams Olive Brine Tester Relationship Specialty Start Date End Date Talisha Treviño MD [address] [place], [place] [address] PCP - General Family Medicine 12/05/17 10/27/20 documented as of this encounter
--- OUTSIDE RECORDS SUMMARY | 2024-02-03 13:03 | XMS_ITS | Encounter Summary ---
Author Organization [place] [address] Care Team Providers Care Supervisor Cook Room Name Role Phone Talisha Treviño MD Primary Care Provider [phone] Encounter Details Date Type Department Care Team (Late st Contact Info) Description 12/18/2018 Telephone [place] [phone] Tawana Newell, RN Social History Tobacco Use [...] filedocumented in this encounter Care Teams Supervisor Cook Room Relationship Specialty Start Date End Date Talisha Treviño MD [address] [place] [address] PCP - General Family Medicine 12/05/17 10/27/20 documented as of this encounter
--- OUTSIDE RECORDS SUMMARY | 2024-02-03 13:03 | XMS_ITS | Encounter Summary ---
Author Organization [facility] Address [facility] [place] [address] Care Team Providers Care Medical Delivery Technician Name Role Phone Talisha Treviño MD Primary Care Provider [phone] Encounter Details Date Type Department Care Team (Late st Contact Info) Description 06/08/2019 Ancillary Procedure Radiology Library at [facility] [place] [phone] César Barron MD Social History Tobacco Use Types Packs/Day [...] DX Study (06/08/2019 12:00 AM EDT) Narrative [facility] - 06/11/2019 2:06 PM EDT This exam is auto-finalizing. It's purpose is for storage only. César Barron MD IMG FILM LIBRARY OR DERABLES [facility] [place], [place] documented in this encounter Visit Diagnoses Not on filedocumented in this encounter Care Teams Medical Delivery Technician Relationship Specialty Start Date End Date Talisha Treviño MD [address] [place] [address] PCP - General Family Medicine 12/05/17 10/27/20 documented as of this encounter
--- OUTSIDE RECORDS SUMMARY | 2024-02-03 13:04 | XMS_ITS | Encounter Summary ---
Author Organization [facility] Address [facility] [place] [address] Care Team Providers Care Central Office Installer Name Role Phone Shital Brooke APRN Primary Care Provider [phone] Reason for Visit * Reason Comments Other Encounter Details Date Type Department Care Team (Late st Contact Info) Description 09/22/2016 Telephone [place] [address] Lakshmi Duckworth RN Other Social History Tobacco [...] on filedocumented in this encounter Care Teams Central Office Installer Relationship Specialty Start Date End Date Shital Brooke, FIELD COORDINATOR [address] [place] [address] PCP - General Family Medicine 07/20/16 12/04/17 documented as of this encounter
--- OUTSIDE RECORDS SUMMARY | 2024-02-03 13:04 | XMS_ITS | Encounter Summary ---
Author Organization [facility] Address [facility] [place] [address] Care Team Providers Care Medical Laboratory Manager Name Role Phone Shital Brooke APRN Primary Care Provider [phone] Encounter Details Date Type Department Care Team (Late st Contact Info) Description 09/26/2016 Telephone [place] [phone] Ricardo Hwang MD Social History Tobacco Use Types Packs/Day [...] needs it. Ricardo Hwang M.D. PGY2-General Surgery 4588 documented in this encounter Plan of Treatment Not on file documented as of this encounter Visit Diagnoses Not on filedocumented in this encounter Care Teams Medical Laboratory Manager Relationship Specialty Start Date End Date Shital Brooke APRN [address] [place] [address] PCP - General Family Medicine 07/20/16 12/04/17 documented as of this encounter
--- OUTSIDE RECORDS SUMMARY | 2024-02-03 13:04 | XMS_ITS | Encounter Summary ---
Author Organization [facility] Address [facility] [address] [place] [address] Care Team Providers Care Drop Shipment Clerk Name Role Phone Shital Brooke APRN Primary Care Provider Encounter Details Date Type Department Care Team (Late st Contact Info) Description 07/30/2016 8:00 AM EDT - 07/30/2016 8:30 AM EDT Surgery [place] [address] Jovani Treviño MD [facility] [place] [address] EGD WITH BIOPSY (WRVU 2.39) Social History [...] - 07/30/2016 8:49 AM EDT Please call [phone] before 8pm with problems, questions or concerns, after 5pm call the Hospital at [phone] and ask to speak to the Bank Note Designer residential subcontractor and the record press operator will contact that person for you. [...] Care Everywhere. * EGD (UPPER ENDOSCOPY): POST-OP ([place]) documented in this encounter Medications at Time [...] GI ENDOSCOPY (07/30/2016 8:03 AM EDT) Pathologist [facility] UPPER GI ENDOSCOPY [facility] Endoscopy Procedure Date: 07/30/2016 8:03 AM ? Patient Name: Ruby Sprague ? N: [id number] ? Date of : 1980 ? Age: 36 ? Order #: [id number] ? Instrument Name: [id number] ? Procedure: ? Upper GI endoscopy Indications: ? Heartburn, Abnormal PHELPS pH capsule ? results Providers: ? Jovani Treviño MD, Marco A ? Bc, DAIVD, Nellie Gonzalez, ? Articulation Officer Referring : ?Yefri Hare Medicines: ? Fentanyl [...] Procedure Code(s): ?? --- Professional --- ? 97615, Esophagogastroduoden oscopy, ? flexible, transoral; diagnostic, ? including collection of specimen(s) ? by brushing or washing, when ? performed (separate procedure) ? --- Technical --- ? 84796, 59, ? Esophagogastroduoden oscopy, flexible, ? transoral; diagnostic, including ? collection of specimen(s) by brushing ? or washing, when performed (separate ? procedure) ? 63355, TC, Esophagus, ? gastroesophageal reflux test; with ? mucosal attached telemetry pH ? electrode placement, recording, ? analysis and interpretation CPT copyright 2016 [employer]. All rights reserved. The codes documented in this report are preliminary and upon skid wrapper review may be revised to meet current [...] DAVID) documented in this encounter Care Teams Drop Shipment Clerk Relationship Specialty Start Date End Date Shital Brooke, SENIOR ASIC DESIGN ENGINEER [address] [place] [address] PCP - General Family Medicine 07/20/16 12/04/17 documented as of this encounter
--- OUTSIDE RECORDS SUMMARY | 2024-02-03 13:04 | XMS_ITS | Encounter Summary ---
[place] [address] Care Team Providers Care Drill Punch Operator Name Role Phone Shital Brooke APRN Primary Care Provider [phone] Encounter Details Date Type Department Care Team (Latest Contact Info) Description 07/30/2016 8:00 AM EDT Procedure visit [place] [address] Gastroesophageal reflux disease, esophagitis presence not specified [...] of Petersen procedure and use of the toy parts former supervisor. documented in this encounter Plan of Treatment Not on file documented as of this encounter Visit Diagnoses Diagnosis Gastroesophageal reflux disease, esophagitis presence not specified documented in this encounter Care Teams Drill Punch Operator Relationship Specialty Start Date End Date Shital Brooke, JANET [address] [place] [address] PCP - General Family Medicine 07/20/16 12/04/17 documented as of this encounter
--- OUTSIDE RECORDS SUMMARY | 2024-02-03 13:04 | XMS_ITS | Encounter Summary ---
Author Organization [facility] [place] [address] Care Team Providers Care Tree Care Foreman Name Role Phone Shital Brooke APRN Primary Care Provider [phone] Reason for Visit * Reason Onset Date Comments Other 09/13/2016 Encounter Details Date Type Department Care Team (Late st Contact Info) Description 09/13/2016 Telephone [place] [address] Concepción Michel, RN Other Social History Tobacco [...] []Hide copied text []Hover for attribution information [facility] Operative Note ?? Patient Name: Ruby Sprague DOB: [id number] MR#: [id number] ?? Case Date: 09/09/2016 ?? Surgeon: Surgeon(s) [...] a 3-stitch, 2.5-cm fundoplication performed over a 60-Portuguese bougie. There were no intraoperative complications. ?? [...] emergency department. CALLER AGREES: Yes PCP: Shital Brokoe APRN documented in this encounter Plan of Treatment Not on file documented as of this encounter Visit Diagnoses Not on filedocumented in this encounter Care Teams Tree Care Foreman Relationship Specialty Start Date End Date Shital Brooke APRN [facility] [place] [address] PCP - General Family Medicine 07/20/16 12/04/17 documented as of this encounter
--- OUTSIDE RECORDS SUMMARY | 2024-02-03 13:04 | XMS_ITS | Encounter Summary ---
Author Organization [facility] Address [facility] [place] [address] Care Team Providers Care Mutual Fund Sales Agent Name Role Phone Shital Brooke APRN Primary Care Provider Encounter Details Date Type Department Care Team (Latest Contact Info) Description 02/25/2017 - 02/25/2017 11:59 PM [facility] Hospital Encounter Radiology Library at [facility] [place] [place] [address] Leonardo Burris APRN Discharge Disposition: Home Social History Tobacco Use [...] Lower Extremity (02/25/2017 12:00 AM EST) Narrative [facility] - 12/05/2017 8:39 AM EDT This exam is for storage only and is auto-finalizing. Leonardo Burris APRN IMG FILM LIBRARY ORDERABLES Performing Organization Address City/State/[facility] Co de Phone Number [place], [place] documented in this encounter Visit Diagnoses Not on filedocumented in this encounter Care Teams Mutual Fund Sales Agent Relationship Specialty Start Date End Date Shital Brooke APRN [address] [place] [address] PCP - General Family Medicine 07/20/16 12/04/17 documented as of this encounter
--- OUTSIDE RECORDS SUMMARY | 2024-02-03 13:04 | XMS_ITS | Encounter Summary ---
[place] [address] Care Team Providers Care Imaging Science Professor Name Role Phone Shital Brooke APRN Primary Care Provider [phone] Encounter Details Date Type Department Care Team (Latest Contact Info) Description 07/29/2016 8:00 PM EDT Tech [place] [address] Eric Martinez MD Gastroesophageal reflux disease, esophagitis presence not specified; [...] EDT HIGH-RESOLUTION ESOPHAGEAL MANOMETRY Ruby Sprague [address] [address] : 1980 STUDY DATE: 07-29-2016 PROVIDER: Eric [place] ([id number]) INDICATION GERD; preoperative evaluation METHODS Stationary esophageal [...] measured. Water swallows were provided after a 7-me-5-minute accommodation period to assess LES function andfunction [...] esophageal clearance. *Measurements and diagnostic criteria per Acton 3.0 Classification. Eric Martinez, PhD, MD senior investigator, [facility] [employer] Chief, Section of Gastroenterology and Hepatology [facility] [place] [address] V: [phone] F: [phone] CC/EC: PCP documented in this encounter Plan of Treatment Not on file documented as of this encounter Visit Diagnoses Diagnosis Gastroesophageal reflux disease, esophagitis presence not specified Jackhammer esophagus documented in this encounter Care Teams Imaging Science Professor Relationship Specialty Start Date End Date Shital Brooke, JANET [address] [place] [address] PCP - General Family Medicine 07/20/16 12/04/17 documented as of this encounter
--- OUTSIDE RECORDS SUMMARY | 2024-02-03 13:04 | XMS_ITS | Encounter Summary ---
Author Organization [facility] [place] [address] Care Team Providers Care Store Lead Name Role Phone Shital Brooke APRN Primary Care Provider [phone] Encounter Details Date Type Department Care Team (Late st Contact Info) Description 09/21/2016 Telephone [place] [address] Concepción Michel, RN Social History Tobacco Use [...] PERTINENT PAST MEDICAL HISTORY: Pt to the [facility] Operative Note ?? Patient Name: Ruby Sprague : [id number] MR#: [id number] ?? Case Date: 09/09/2016 ?? Surgeon: Surgeon(s) [...] on filedocumented in this encounter Care Teams Store Lead Relationship Specialty Start Date End Date Shital Brooke APRN [address] [place] [address] [place] [address] PCP - General Family Medicine 07/20/16 12/04/17 documented as of this encounter
--- OUTSIDE RECORDS SUMMARY | 2024-02-03 13:04 | XMS_ITS | Encounter Summary ---
Author Organization [facility] Address [facility] [place] [id number] Care Team Providers Care Integration Consultant Name Role Phone Edwardo Shital JANET Primary Care Provider [phone] Reason for Visit * Diagnostic Test (Routine) - Canceled Specialty Diagnoses / Procedures Referred By Dayan parker Referred To Contact Gastroenterology Diagnoses Gastroesophageal reflux disease, esophagitis presence not specified GERD Procedures Manometry Esophageal HREM - sched by John Manjarrez APRN [facility] DR GASTROENTER[place]Y [place] [address] [facility] [address] [place] [address] Referral ID Status Reason Start Date Expiration Date Visits Requested Visits Authorized [id number] Canceled Specialty Service Requested 07/01/2016 07/01/2017 1 1 Encounter Details Date Type Department Care Team (Latest Contact Info) Description 07/29/2016 3:00 PM EDT Procedure visit [place] [address] Gastroesophageal reflux disease, esophagitis presence not specified [...] specified documented in this encounter Care Teams Integration Consultant Relationship Specialty Start Date End Date Shital Brooke, JNAET [address] [place] [address] PCP - General Family Medicine 07/20/16 12/04/17 documented as of this encounter
--- OUTSIDE RECORDS SUMMARY | 2024-02-03 13:04 | XMS_ITS | Encounter Summary ---
Author Organization [facility] Address [facility] [place] [address] Care Team Providers Care Baling Press Operator Name Role Phone Yefri Hare MD Primary Care Provider [phone] Reason for Visit * Reason Onset Date Comments Other 07/06/2016 Encounter Details Date Type Department Care Team (Late st Contact Info) Description 07/06/2016 Telephone [place] [phone] Emmanuel Morel RN Other Social History Tobacco [...] call to patient. Per Dr. John Garner, FUN HOUSE OPERATOR: Ok, 4 days is really not [...] on filedocumented in this encounter Care Teams Baling Press Operator Relationship Specialty Start Date End Date Yefri Hare MD PCP - General Family Medicine 11/10/15 07/19/16 documented as of this encounter
--- OUTSIDE RECORDS SUMMARY | 2024-02-03 13:04 | XMS_ITS | Encounter Summary ---
[place] [address] Care Team Providers Care Children'S Literature Professor Name Role Phone Shital Brooke APRN Primary Care Provider [phone] Reason for Visit * Auth/Cert Specialty Diagnoses / Procedures Referred By Contac t Referred To Contact Diagnoses GERD (gastroesophageal reflux disease) GERD Procedures PRO LAP, ESOPHAGOGAST FUNDOPLASTY LAPAROSCOPIC BECCA FUNDOPLASTY (WRVU 18.1) MODIFIER, HIATAL HERNIA Referral ID Status Reason Start Date Expiration Date Visits Re quested Visits Authorized [id number] 1 1 Encounter Details Date Type Department Care Team (Late st Contact Info) Description 09/09/2016 12:54 PM EDT Anesthesia Event [place] [address] Helena Spicer MD Martinson, Francis E, MD Anesthesia Record Procedure Summary Procedure Name Responsible [...] Note Bougie out 1508 Break/Relief In Helena Vee suero MD 1538 Procedure Stop 1540 Extubation/LMA [...] basilic vein (medial side of arm), left; qogx-cjo-linoou catheter system; 20 gauge, 1 in length; DAVDI Lopes; intradermal injection, tolerated well, appears comfortable; [...] Notes * Anesthesia Postprocedure Evaluation - Rodri Mathews MD - 09/09/2016 5:45 PM EDT [facility] Department of Anesthesiology Post-procedure Note Patient: Ruby Sprague Procedure Summary Date Anesthesia Start Anesthesia Stop Room / Location 09/09/16 1254 1554 [facility] MAIN OR Procedure Diagnosis Surgeon Responsible Provider LAPAROSCOPIC BECCA FUNDOPLASTY (WRVU 18.1) (N/A Abdomen); MODIFIER, HIATAL HERNIA (N/A ) (GERD) César Barron MD Peters, Julia C, MD All Anesthesia Providers: Anesthesiologist: Helena Spicer MD Neurosurgical Physician Assistant: Rodri Mathews MD Last (1hr) Vitals: BP 161/86 (09/09/16 1730) Temp Pulse 95 (09/09/16 1730) Resp 16 (09/09/16 1730) SpO2 92 % (09/09/16 1730) Patient Location: PACU/[facility] Level of Consciousness: Conscious but Sleepy [...] 2.49) performed by Jovani Treviño MD at [facility] ENDOSCOPY Social History Substance Use Topics [...] discussed with patient. Plan discussed with resident. [facility] Staff Note documented in this encounter Plan [...] g dexamethasone (DECADRON) injection PRN, Starting on Bev 09/09/16 at 1331, Until Bev 09/09/16 at 1554, Anesthesia Intra-op, Routine Given 09/09/2016 1:31 PM EDT 8 mg fentaNYL 50 mcg/mL multi-dose injection PRN, Starting on Ebv 09/09/16 at 1329, Until Bev 09/09/16 at 1554, Pain, Anesthesia Intra-op, Routine Given 09/09/2016 3:31 PM EDT 25 mcg Given 09/09/2016 1:45 PM EDT 50 mcg Given 09/09/2016 1:38 PM EDT 50 mcg glycopyrrolate (ROBINUL) multi-dose injection PRN, Starting on Bev 09/09/16 at 1518, Until Bev 09/09/16 at 1554, Anesthesia Intra-op, Routine Given 09/09/2016 3:18 PM EDT 0.2 mg labetalol (NORMODYNE,TRANDATE) multi-dose injection PRN, Starting on Bev 09/09/16 at 1349, Until Bev 09/09/16 at 1554, High Blood Pressure, Anesthesia Intra-op, Routine Given 09/09/2016 1:49 PM EDT 10 mg midazolam (PF) (VERSED) 1 mg/mL multi-dose injection PRN, Starting on Bev 09/09/16 at 1252, Until Tue09/09/16 at 1554, Sleep, Anesthesia Intra-op, Routine Given 09/09/2016 12:52 PM EDT 2 mg neostigmine (BLOXIVERZ) injection PRN, Starting on Bev 09/09/16 at 1518, Until Tue09/09/16 at 1554, Anesthesia Intra-op, Routine Given 09/09/2016 3:18 PM EDT 2 mg ondansetron (ZOFRAN) injection PRN, Starting on Bev 09/09/16 at 1457, Until Tue09/09/16 at 1554, Nausea, Anesthesia Intra-op, Routine Given 09/09/2016 2:57 PM EDT 4 mg PHENYLephrine HCl in NS (PF) (CHET-SYNEPHRINE) 0.8 mg/10 mL (80 mcg/mL) multi-dose injection Syrg PRN, Starting on Bev 09/09/16 at 1434, Until Tue09/09/16 at 1554, Anesthesia Intra-op, Routine [...] mg documented in this encounter Care Teams Children'S Literature Professor Relationship Specialty Start Date End Date Shital Brooke APRN [address] [place] [address] PCP - General Family Medicine 07/20/16 12/04/17 documented as of this encounter
--- OUTSIDE RECORDS SUMMARY | 2024-02-03 13:04 | XMS_ITS | Encounter Summary ---
Author Organization [facility] Address [place] [address] Care Team Providers Care Automatic Paint Sprayer Operator Name Role Phone Yefri Hare MD Primary Care Provider [phone] Encounter Details Date Type Department Care Team (Latest Contact Info) Description 03/20/2016 - 03/20/2016 11:59 PM EST Hospital Encounter Radiology Library at [facility] [place] [address] Leonardo Burris APRN Discharge Disposition: Home Social [...] DX Shoulder (03/20/2016 12:00 AM EST) Narrative RAD - 12/05/2017 8:38 AM EDT This exam is for storage only and is auto-finalizing. Leonardo Burris APRN IMG FILM LIBRARY ORDERABLES [place], [place] documented in this encounter Visit Diagnoses Not on filedocumented in this encounter Care Teams Automatic Paint Sprayer Operator Relationship Specialty Start Date End Date Yefri Hare MD PCP - General Family Medicine 11/10/15 07/19/16 documented as of this encounter
--- OUTSIDE RECORDS SUMMARY | 2024-02-03 13:04 | XMS_ITS | Encounter Summary ---
Author Organization [facility] [place] [address] Care Team Providers Care Leather Tanner Name Role Phone Shital Brooke APRN Primary Care Provider Encounter Details Date Type Department Care Team (Late st Contact Info) Description 03/31/2017 Telephone [place] [phone] Hodan Singleton RN Social History Tobacco Use [...] Patient returned call to the office. This business writer returned her call , but was unable to reach her. Left message on patients VM asking her to leave a good time to reach her or to have the city secretary put the call through to the [...] on filedocumented in this encounter Care Teams Leather Tanner Relationship Specialty Start Date End Date Shital Brooke APRN [address] [place] [address] PCP - General Family Medicine 07/20/16 12/04/17 documented as of this encounter
--- OUTSIDE RECORDS SUMMARY | 2024-02-03 13:04 | XMS_ITS | Encounter Summary ---
[place] [address] Care Team Providers Care Brazing Machine Operator Name Role Phone Yefri Hare MD Primary Care Provider [phone] Reason for Referral * Consultation (Routine) - Closed Specialty Diagnoses / Procedures Referred By Dayan t Referred To Contact General Surgery Diagnoses Gastroesophageal reflux disease, esophagitis presence not specified John Garner APRN [facility] [place] [address] [facility] Gen Surgery [address] [place] [phone] Referral ID Status Reason Start Date Expiration Date V isits Requested Visits Authorized [id number] Closed Consult, Test & Treat 07/01/2016 07/01/2017 1 1 Reason for Visit * Reason Comments GI Problem * Consultation (Routine) - Closed Specialty Diagnoses / Procedures Referred By Contjessi t Referred To Contact Gastroenterology Diagnoses IBS; GERD Yefri Hare MD [address] [place] [address] [place] [address] [facility] Gastro [address] [place] [phone] Referral ID Status Reason Start Date Expiration Date V isits Requested Visits Authorized [id number] Closed Consult, Test & Treat [facility] PCP Updated and/or Approved 11/10/2015 11/09/2016 1 1 Encounter Details Date Type Department Care Team (Latest Contact Info) Description 07/01/2016 8:00 AM EDT Office Visit [place] [address] John Garner APRN [facility] [place] [address] Gastroesophageal reflux disease, esophagitis presence not specified [...] AM EDT Section of Gastroenterology and Hepatology [address] [place] [address] .Ruby Sprague : 1980 Patient is here [...] specified documented in this encounter Care Teams Brazing Machine Operator Relationship Specialty Start Date End Date Yefri Hare MD PCP - General Family Medicine 11/10/15 07/19/16 documented as of this encounter
--- OUTSIDE RECORDS SUMMARY | 2024-02-03 13:04 | XMS_ITS | Encounter Summary ---
Author Organization [facility] [place] [address] Care Team Providers Care Form Setter Name Role Phone Shital Brooke APRN Primary Care Provider [phone] Encounter Details Date Type Department Care Team (Late st Contact Info) Description 09/19/2016 Orders Only [place] [phone] Miguel Avila MD Social History Tobacco Use Types Packs/Day [...] Surgery Telephone Note Received call from Ruby Sprague who reports she has been doing relatively [...] concerns. Adriane Avila Vascular Surgery, PGY2 Pager #[phone] documented in this encounter Plan of Treatment Not on file documented as of this encounter Visit Diagnoses Not on filedocumented in this encounter Care Teams Form Setter Relationship Specialty Start Date End Date Shital Brooke, JANET [address] [place] [address] PCP - General Family Medicine 07/20/16 12/04/17 documented as of this encounter
--- OUTSIDE RECORDS SUMMARY | 2024-02-03 13:04 | XMS_ITS | Encounter Summary ---
Author Organization [facility] Address [facility] [place] [address] Care Team Providers Care Construction Site Crossing Guard Name Role Phone Shital Brooke APRN Primary Care Provider [phone] Encounter Details Date Type Department Care Team (Late st Contact Info) Description 09/27/2016 Telephone [place] [phone] Ricardo Hwang MD Social History Tobacco Use [...] this plan. Ricardo Hwang M.D. PGY2-General Surgery 8613 documented in this encounter Plan of Treatment Not on file documented as of this encounter Visit Diagnoses Not on filedocumented in this encounter Care Teams Construction Site Crossing Guard Relationship Specialty Start Date End Date Shital Brooke, JANET [address] [place] [address] PCP - General Family Medicine 07/20/16 12/04/17 documented as of this encounter
--- OUTSIDE RECORDS SUMMARY | 2024-02-03 13:04 | XMS_ITS | Encounter Summary ---
Author Organization [facility] [place] [address] Care Team Providers Care Cork Insulation Setter Name Role Phone Shital Brooke APRN Primary Care Provider [phone] Encounter Details Date Type Department Care Team (Late st Contact Info) Description 09/20/2016 Telephone [place] [phone] Poonam Palomino RN Social History Tobacco Use [...] changed to oral pain medications and the EM PHYSICIAN was discontinued on POD# 1. She was [...] on filedocumented in this encounter Care Teams Cork Insulation Setter Relationship Specialty Start Date End Date Shital Brooke, JANET [address] [place] [address] PCP - General Family Medicine 07/20/16 12/04/17 documented as of this encounter
--- OUTSIDE RECORDS SUMMARY | 2024-02-03 13:04 | XMS_ITS | Encounter Summary ---
Author Organization [facility] [place] [address] Care Team Providers Care Senior Research Scientist Name Role Phone Shital Brooke APRN Primary Care Provider [phone] Encounter Details Date Type Department Care Team (Late st Contact Info) Description 10/25/2016 Telephone [place] [phone] Alannah Maza Social History Tobacco Use Types [...] your appointment. Please have them faxed to [phone]. Please provide any imaging (x-rays, CT Scans, [...] regarding your appointment, please contact us at [phone]. If they are yes for BPPV they should see PT (Here at [facility] no outside PT ) first and no VNG Date Mailed Vertigo Information: documented in this encounter Plan of Treatment Not on file documented as of this encounter Visit Diagnoses Not on filedocumented in this encounter Care Teams Senior Research Scientist Relationship Specialty Start Date End Date Shital Brooke APRN [address] [place] [address] PCP - General Family Medicine 07/20/16 12/04/17 documented as of this encounter
--- OUTSIDE RECORDS SUMMARY | 2024-02-03 13:04 | XMS_ITS | Encounter Summary ---
Author Organization [facility] Address [facility] [address] [address] Care Team Providers Care Parimutuel Ticket Checker Name Role Phone Shital Brooke APRN Primary Care Provider Reason for Visit * Reason Comments Chest Pain Encounter Details Date Type Department Care Team (Late st Contact Info) Description 10/06/2016 9:38 AM EDT - 10/06/2016 12:33 PM EDT Emergency [place] [address] Dione Silveira MD [facility] [place] [address] Atypical chest pain; Chest pain, unspecified type; [...] week with her surgery team here at [facility] and to also follow up with her [...] the pt This note was written using Glowpoint dictation software Cholo Richards MD Resident 10/06/16 6449 Associated attestation - Dione Silveira MD - [...] EDT) Lipase 17 0 - 60 unit/L [facility] Blood specimen (specimen) Venous Draw / Unknown 10/06/2016 10:07 AM EDT 10/06/2016 10:16 AM EDT Narrative Resulting Agency Comment Spec In Lab Dione Silveira MD CHEMISTRY ORDERABLE S [facility] [place] [address] * Hepatic Function Panel (10/06/2016 10:07 AM EDT) Protein, Total 7.0 6.1 - 8.0 gm/dL [facility] Albumin 4.1 3.2 - 5.2 gm/dL [facility] Aspartate Aminotransferase 13 0 - 30 unit/L [facility] Alanine Aminotransferase 12 0 - 30 unit/L [facility] Alkaline Phosphatase 77 40 - 104 unit/L [facility] Bilirubin, Total 0.2 0.2 - 1.3 mg/dL [facility] Bilirubin, Direct 0.1 0.0 - 0.3 mg/dL [facility] Blood specimen (specimen) Venous Draw / Unknown 10/06/2016 10:07 AM EDT 10/06/2016 10:16 AM EDT Narrative Resulting Agency Comment Spec In Lab Dione Silveira MD CHEMISTRY ORDERABLE S Performing Organization Address [facility]/ZIP Co de Phone Number [facility] [place] [address] * Gold Tube HOLD (10/06/2016 10:07 AM EDT) Gold Hold Sample in lab. [facility] Blood specimen (specimen) No Charge / Unknown 10/06/2016 10:07 AM EDT 10/06/2016 10:14 AM EDT Dione Silveira MD CHEMISTRY ORDERABLE S Performing Organization Address City/[facility] Co de Phone Number [facility] [place] [address] * Differential, Automated (10/06/2016 10:07 AM EDT) Neutrophil % 61.2 % [facility] Neutrophil Absolute 5.29 1.70 - 6.10 x10(3)/[facility] Lymph % 24.8 % [facility] Lymphocytes Abs 2.1 0.9 - 3.2 x10(3)/[facility] Monocyte % 10.9 % [facility] Monocyte Abs 0.9 0.3 - 0.9 x10(3)/[facility] LABOR[facility] Eos % 1.9 % [facility] Eosinophils Abs 0.2 0.0 - 0.4 x10(3)/[facility] LAB[facility] Basophil % 0.9 % [facility] Baso Absolute 0.1 0.0 - 0.1 x10(3)/[facility] LABOR[facility]ORY Immature Gran % 0.30 % [facility] Comment: Immature granulocytes(IG's)percentage and absolute count will include metamyelocytes, myelocytes, and promyelocytes. Blood smears from CBCs yielding IG's will be scanned manually for concordance. If this scan disagrees with the automated IG or if promyelocytes are noted, a manual differential will be performed. Immature Gran Absolute 0.03 0.00 - 0.04 x10(3)/[facility] Blood specimen (specimen) 10/06/2016 10:07 AM EDT 10/06/2016 10:13 AM EDT Narrative Resulting Agency Comment Spec In Lab Dione Silveira MD HEMATOLOGY ORDERABL ES [facility] [place] [address] * (ABNORMAL) Hemogram (10/06/2016 10:07 AM EDT) White Blood Cell 8.6 4.0 - 9.5 x10(3)/[facility]ORATORY Red Blood Cell 4.87 4.00 - 5.21 x10(6)/[facility] Hemoglobin 12.1 11.7 - 15.5 gm/dL [facility] Hematocrit 37.1 35.7 - 45.8 % [facility] Mean Cell Volume 76.2(L) 82.6 - 94.4 fL [facility] Mean Cell Hemoglobin 24.8(L) 27.1 - 32.0 pg [facility] Mean Cell Hemoglobin Concentration 32.6 31.7 - 35.0 gm/dL [facility] Platelet 383(H) 145 - 357 x10(3)/ L [facility] RDW Standard Deviation 48.0(H) 37.0 - 46.0 fL [facility] RDW coefficient of variation 17.4(H) 11.5 - 14.1 % [facility] Mean Platelet Volume 10.8 7.6 - 12.9 fL [facility] NRBC% auto 0.0 % [facility] NRBC Absolute 0.000 0.000 - 0.000 x10(3)/mc L [facility] Blood specimen (specimen) 10/06/2016 10:07 AM EDT 10/06/2016 10:13 AM EDT Narrative Resulting Agency Comment Spec In Lab Dione Silveira MD HEMATOLOGY ORDERABL ES [facility] [place] [address] * (ABNORMAL) Basic Metabolic Panel (non-fasting) (10/06/2016 10:07 AM EDT) Glucose 102 65 - 199 mg/dL [facility] Comment:Diabetes: >=200 mg/d L plus symptoms Blood Urea Nitrogen 9 8 - 18 mg/dL [facility] Creatinine 0.66(L) 0.70 - 1.20 mg/dL [facility] Comment: Please note that the pediatric reference intervals supplied above were not validated at [facility]. Results from pediatric patients should be interpreted in conjunction to the patient's age, height and muscle mass. Sodium 143 135 - 145 mmol/L [facility] Potassium 3.7 3.5 - 5.0 mmol/L [facility] Comment: Please note: ??Patients with WBC >100,000 may have falsely elevated Potassium levels. ??For accurate Potassium quantification in these patients send serum separator tube (gold top) for subsequent determinations. ??Contact the Clinical Chemistry Laboratory if there are any questions. Chloride 108(H) 98 - 107 mmol/L [facility] Carbon Dioxide 21(L) 22 - 31 mmol/L [facility] Anion Gap 14 5 - 15 mmol/L [facility] Calcium 9.5 8.5 - 10.5 mg/dL [facility] Est Glomerular Filtration Rate >60 >=60 [facility] Comment: This estimated GFR (eGFR) [...] the following links into your internet browser. [email or web address] Blood specimen (specimen) 10/06/2016 10:07 AM EDT 10/06/2016 10:13 AM EDT Narrative Resulting Agency Comment Spec In Lab Dione Silveira MD CHEMISTRY ORDERABLE S [facility] [place] [address] * Troponin T (10/06/2016 10:07 AM EDT) Troponin-T <0.01 0.00 - 0.00 ng/mL [facility] Comment: The 99th percentile for Troponin T is less than 0.01 ng/mL, any detectable cTnT concentration using this assay should be considered elevated. According to the third universal definition of myocardial infarction the following criteria with a clinical presentation consistent with acute myocardial ischemia meets the diagnosis for a myocardial infarction (MA). Detection of a rise and/or fall of cTnT, with at least one value greater than the 99th percentile (> or = 0.01) and with at least one of the following ?? Symptoms of ischemia ?? New or presumed new significant TE-ltoqhca-Q wave (ST-T) changes or new left bundle [...] additional sample may be indicated. Reference: Third [place] Definition of Myocardial Infarction. Journal of the [place] [employer] 2012;60:1581-98 Blood specimen (specimen) 10/06/2016 10:07 AM EDT 10/06/2016 10:13 AM EDT Narrative Resulting Agency Comment Spec In Lab Dione Silveira MD CHEMISTRY ORDERABLE S Performing Organization Address [facility] Co de Phone Number [facility] [place] [address] * Blue Tube HOLD (10/06/2016 10:07 AM EDT) Blue Hold Sample in lab. [facility] Blood specimen (specimen) 10/06/2016 10:07 AM EDT 10/06/2016 10:13 AM EDT Dione Silveira MD HEMATOLOGY ORDERABL ES Performing Organization Address [facility] Co de Phone Number [facility] [place] [address] * EKG 12 Lead (10/06/2016 9:47 AM EDT) Ventricular rate 75 BPM MUSE SYSTEM Atrial Rate 75 BPM MUSE SYSTEM P-R Interval 122 ms MUSE SYSTEM QRS Duration 78 ms MUSE SYSTEM Q-T Interval 394 ms MUSE SYSTEM QTC Calculated (Bezet) 439 ms MUSE SYSTEM Calculated P Bryant 37 degrees MUSE SYSTEM Calculated R Bryant 5 degrees MUSE SYSTEM Calculated T Bryant -22 degrees MUSE SYSTEM INTERPRETATION Normal sinus rhythm Minimal voltage criteria for LVH, may be normal variant Nonspecific T wave abnormality Abnormal ECG When compared with ECG of 09-SEP-2016 20:56, Vent. rate has decreased BY ??39 BPM Confirmed by MD ERIN, RAJENDRA ([id number]) on 10/06/2016 6:10:48 PM MUSE SYSTEM 10/06/2016 9:47 AM EDT 10/06/2016 6:10 PM EDT iDone Silveira MD ECG ORDERABLES Performing Organization Address [facility]/ZIP Co de Phone Number MUSE SYSTEM [...] route) documented in this encounter Care Teams Parimutuel Ticket Checker Relationship Specialty Start Date End Date Shital Brooke, CARBONIZER TESTER [address] [place] [address] PCP - General Family Medicine 07/20/16 12/04/17 documented as of this encounter
--- OUTSIDE RECORDS SUMMARY | 2024-02-03 13:04 | XMS_ITS | Encounter Summary ---
Author Organization [facility] Address [facility] [place] [address] Care Team Providers Care Aco Coordinator Name Role Phone Shital Brooke APRN Primary Care Provider [phone] Reason for Referral * Consultation (Routine) - Closed Specialty Diagnoses / Procedures Referred By Dayan parker Referred To Contact Otolaryngology Diagnoses Lichen planus Jovani Treviño MD [facility] [place] [address] [facility] [address] [place] [phone] Referral ID Status Reason Start Date Expiration Date V isits Requested Visits Authorized [id number] Closed Consult, Test & Treat 07/30/2016 07/30/2017 1 1 Encounter Details Date Type Department Care Team (Late st Contact Info) Description 07/30/2016 Orders [place] [address] Jovani Treviño MD [facility] [place] [address] Lichen planus Social History Tobacco [...] planus documented in this encounter Care Teams Aco Coordinator Relationship Specialty Start Date End Date Shital Brooke, SALON COORDINATOR [address] [place] [address] PCP - General Family Medicine 07/20/16 12/04/17 documented as of this encounter
--- OUTSIDE RECORDS SUMMARY | 2024-02-03 13:04 | XMS_ITS | Encounter Summary ---
Author Organization [facility] [place] [address] Care Team Providers Care Surgical Manager Name Role Phone Shital Brooke APRN Primary Care Provider [phone] Encounter Details Date Type Department Care Team (Latest Contact Info) Description 08/02/2016 9:00 PM EDT Tech Visit Gastroenterology at [place] [id number] Eric Martinez MD Gastroesophageal reflux disease, esophagitis presence not specified [...] Martinez MD - 08/02/2016 9:00 PM EDT [id number] WIRELESS pH CAPSULE STUDY AFTER UPPER ENDOSCOPY Ruby Sprague Female, 36 y.o., 1980 , SR None PCP: Shital Brooke APRN STUDY DATES: 07/30/16 to 08/01/16 INTERPRETATION DATE: 08/02/16 PROVIDER: Eric Martinez, [place] ([id number]) INDICATION Reflux symptoms. Upper endoscopy on 07/30/16 [...] 14.72) Day Two Calculated DeMeester Score: 54.3 Vcejh-Jynzp-Uped (Total) Fraction of Time with pH Less Than 4%: 12.7% Offmr-Sneyf-Yfrg DeMeester Score (Total): 44.2 Day One Symptoms Association Probability (SAP) for Heartburn: 0% Chest pain: 0% Regurgitation: 96% Day Two SAP for Heartburn: 0% Chest pain: 0% Regurgitation: 100% Dylhx-Vrlzz-Mszk SAP for Heartburn: 0% Chest pain: 0% [...] 95% are positive. Eric Martinez, PhD, MD electric track switch maintainer, [facility] [employer] Chief, Section of Gastroenterology and Hepatology [facility] [place] [address] V: [phone] F: [phone] BEL/bcchandra EC/CC: PCP - fax copy 08/03/16 John Garner APRN - staff msg copy 08/03/16 documented in this encounter Plan of Treatment Not on file documented as of this encounter Visit Diagnoses Diagnosis Gastroesophageal reflux disease, esophagitis presence not specified documented in this encounter Care Teams Surgical Manager Relationship Specialty Start Date End Date Shital Brooke APRN [address] [place] [address] PCP - General Family Medicine 07/20/16 12/04/17 documented as of this encounter
--- OUTSIDE RECORDS SUMMARY | 2024-02-03 13:04 | XMS_ITS | Encounter Summary ---
Author Organization [facility] Address [facility] [address] [place] [address] Care Team Providers Care Air Bag Buffer Name Role Phone Shital Brooke JANET Primary Care Provider [phone] Reason for Visit * Reason Comments Gastroesophageal Reflux * Consultation (Routine) - Closed Specialty Diagnoses / Procedures Referred By Dayan parker Referred To Contact General Surgery Diagnoses Gastroesophageal reflux disease, esophagitis presence not specified John Garner PLANT INSPECTOR [facility] [place] [address] [facility] [address] [place] [address] Referral ID Status Reason Start Date Expiration Date V isits Requested Visits Authorized [id number] Closed Consult, Test & Treat 07/01/2016 07/01/2017 1 1 Encounter Details Date Type Department Care Team (Latest Contact Info) Description 08/25/2016 9:20 AM EDT Office [place] [address] César Barron MD Gastroesophageal reflux disease with esophagitis Social History [...] esophagitis documented in this encounter Care Teams Air Bag Buffer Relationship Specialty Start Date End Date Shital Brooke APRN [address] [place] [place] [address] PCP - General Family Medicine 07/20/16 12/04/17 documented as of this encounter
--- OUTSIDE RECORDS SUMMARY | 2024-02-03 13:04 | XMS_ITS | Encounter Summary ---
Author Organization [facility] [place] [address] Care Team Providers Care Tin Cutter Name Role Phone Shital Brooke APRN Primary Care Provider [phone] Encounter Details Date Type Department Care Team (Latest Contact Info) Description 11/03/2016 4:40 PM EDT Office [place] [id number] César Barron MD Paraesophageal hernia Social History [...] gangrene documented in this encounter Care Teams Tin Cutter Relationship Specialty Start Date End Date Shital Brooke, JANET [address] [place] [address] PCP - General Family Medicine 07/20/16 12/04/17 documented as of this encounter
--- OUTSIDE RECORDS SUMMARY | 2024-02-03 13:04 | XMS_ITS | Encounter Summary ---
Author Organization [facility] Address [facility] [address] [place] [address] Care Team Providers Care Supervisor Sandblaster Name Role Phone Shital Brooke APRN Primary Care Provider [phone] Encounter Details Date Type Department Care Team (Latest Contact Info) Description 07/30/2016 6:46 AM EDT - 07/30/2016 9:47 AM EDT Hospital Encounter [place] [address] Jovani Treviño MD [facility] [place] [address] Discharge Disposition: Home Social History Tobacco Use [...] - 07/30/2016 8:49 AM EDT Please call [phone] before 8pm with problems, questions or concerns, after 5pm call the Hospital at [phone] and ask to speak to the Sales Producer construction sales representative and the foundation drill operator helper will contact that person for you. Discharge [...] Care Everywhere. * EGD (UPPER ENDOSCOPY): POST-OP (MACANESE) documented in this encounter Medications at Time [...] EDT) Pathologist [facility] UPPER GI ENDOSCOPY [facility] Endoscopy Procedure Date: 07/30/2016 8:03 AM ? Patient Name: Ruby Sprague ? N: [id number] ? Date of : 1980 ? Age: 36 ? Order #: [id number] ? Instrument Name: [id number] ? Procedure: ? Upper GI endoscopy Indications: ? Heartburn, Abnormal PHELPS pH capsule ? results Providers: ? Jovani Treviño MD, Marco A ? Bc, DAVID, Nellie Gonzalez, ? Agricultural Mechanic Referring : ?Yefri Hare Medicines: ? Fentanyl [...] Procedure Code(s): ?? --- Professional --- ? 65283, Esophagogastroduoden oscopy, ? flexible, transoral; diagnostic, ? including collection of specimen(s) ? by brushing or washing, when ? performed (separate procedure) ? --- Technical --- ? 98790, 59, ? Esophagogastroduoden oscopy, flexible, ? transoral; diagnostic, including ? collection of specimen(s) by brushing ? or washing, when performed (separate ? procedure) ? 21158, TC, Esophagus, ? gastroesophageal reflux test; with ? mucosal attached telemetry pH ? electrode placement, recording, ? analysis and interpretation CPT copyright 2016 [employer]. All rights reserved. The codes documented in this report are preliminary and upon knot cutter review may be revised to meet current [...] RN) documented in this encounter Care Teams Supervisor Sandblaster Relationship Specialty Start Date End Date Shital Brooke APRN [address] [place] [address] PCP - General Family Medicine 07/20/16 12/04/17 documented as of this encounter
--- OUTSIDE RECORDS SUMMARY | 2024-02-03 13:04 | XMS_ITS | Encounter Summary ---
[place] [address] Care Team Providers Care Lab Coordinator Name Role Phone Shital Brooke APRN Primary Care Provider [phone] Reason for Visit * Auth/Cert Specialty Diagnoses / Procedures Referred By Contac t Referred To Contact Diagnoses GERD (gastroesophageal reflux disease) GERD Procedures PRO LAP, ESOPHAGOGAST FUNDOPLASTY LAPAROSCOPIC MIRTHA FUNDOPLASTY (WRVU 18.1) MODIFIER, HIATAL HERNIA Referral ID Status Reason Start Date Expiration Date Visits Re quested Visits Authorized [id number] 1 1 Encounter Details Date Type Department Care Team (Late st Contact Info) Description 09/09/2016 11:28 AM EDT - 09/09/2016 2:56 PM EDT Surgery [place] [address] Mariaelena Godinez MD LAPAROSCOPIC MIRTHA FUNDOPLASTY (WRVU 18.1) Social History [...] changed to oral pain medications and the FOOD AND NUTRITION SERVICES SUPERVISOR was discontinued on POD# 1. She was [...] 09/14/2016 9:00 AM John Garner APRN Gastroenterology [phone] 10/13/2016 4:20 PM Mariaelena Godinez MD General Surgery [phone] 10/20/2016 1:40 PM Adelina Howard MD Otolaryngology [phone] Instructions Given to Patient at Discharge: Call your doctor if you develop: Fever greater than 101.3 degrees Farenheit (38.5 degrees Celcius), chills, nausea or vomiting. Alsocall if you develop severe pain not relieved by your prescribed oral pain medicine. CALL THE GENERAL SURGERY CLINIC DURING WORKING HOURS AT , OR CALL AFTERCLINIC HOURS, WEEKENDS AND HOLIDAYS: ASK FOR THE GENERAL SURGERY RESIDENT FAC ENGINEER IF ANY OF THE ABOVE OCCUR. Activity level: Increase your activity slowly. You may tire easily, so frequent rest periods may be necessary. Do not lift more than 10 pounds for 4 weeks. Walk three times a day. Use common sense. Don't exhaust yourself. Diet: You should follow a post Mirtha diet, as instructed by the chef german in the hospital for a period of [...] at the [facility], on Thursday, October 13, 2016 at 4:20pm. You need to follow-up with your PCP regarding your blood pressure in the next 1- 2 weeks. Please call if you have any issues. You will receive a letter in the mail confirming the appointment date and time. Your follow-up is very important to us. Please call [phone] if you do not hear from us within 7 days of discharge or if you need to change the appointment date/time. Signed: INOCENCIA MENDEZ MD 09/11/2016 Primary Care Physician: JANET Krishnan DR / [facility] [id number] documented in this encounter Medications at Time [...] course unless consulted in the interim. NAVIN Cardenas * Margaret Rios PA - 09/10/2016 7:06 [...] 93 % SpO2: [91 %-100 %] 09/09 0701 - 09/10 0700 In: 2365.2 [P.O.:60; I.V.:2305.2] [...] four extremities spontaneously Labs: Recent Labs 09/10/16 0515 WBC 23.2* HGB 11.9 HCT 36.0 PLATELET 419* Recent Labs 09/10/16 0515 09/09/16 2124 NA 137 134* K 3.9 4.0 CL [...] to monitor. PLAN: NEURO: Pain control with FOOD AND NUTRITION SERVICES SUPERVISOR Dilaudid and IV Tylenol; transition to elixir [...] now s/p laparoscopic Mirtha fundoplication. Complaining of 810 constant chest tightness of 1 hour duration [...] use of call wilkerson system. BP elevated 170s'/90'sMD made aware. Will continue to monitor and assess. * Enid Hunter RN - 09/09/2016 5:28 PM EDT C/o thirst , pain, wanting , and needing to urinate 1730 On bedpan twice in twenty minutes Medicated for pain and FOOD AND NUTRITION SERVICES SUPERVISOR set up... NPO status maintained 1800 Report to floor Asked again for Bedpan Placed on prior to transfer to floor * Marylin Hand, RN - 09/09/2016 4:14 PM EDT Break coverage. documented in this encounter H&P Notes * Inocencia Mendez Jacklyn - 09/09/2016 12:20 PM EDT Interval H&P [...] 2.49) performed by Jovani Treviño MD at [facility] Medications: No current facility-administered medications [...] Pt hoping to go home in AM. FOOD AND NUTRITION SERVICES SUPERVISOR dc'd, pt tolerating pain control w/10mg oxy [...] of call wilkerson. Surveillance [continuous indirect monitoring]: Masimo, staff rounding Patient-specific fall prevention interventions for [...] Home Environment: Currently staying in [facility] until permanent housing available. Social & Family Supports/Community Resources: Lives with boyfriend/Gissell eng. Behavioral Health History: Denies any Substance Use/Abuse: No Other Pertinent/Service Specific Information: No Health/Prescription Coverage: Primary Insurance: MEDICARE A+B Secondary Insurance: MEDICAID [place] Prescription Coverage: Medicaid Preferred Pharmacy: [facility] in [place], [place] Other: No Primary Care Provider: Shital Brooke APRN [phone] Patient/Caregiver Goals of Treatment: Control pain & [...] needed for discharge. Uma Carcamo RN Pager: [phone] * Plan of Care - Loretta Hendrickson [...] care throughout shift. Pain well controlled with FOOD AND NUTRITION SERVICES SUPERVISOR.Pt c/o intermittent nausea; treated with zofran and [...] Godinez MD - 09/09/2016 3:18 PM EDT [facility] Operative Note Patient Name: Ruby Sprague : [id number] MR#: [id number] Case Date: 09/09/2016 Surgeon: Surgeon(s) and Role: [...] a 3-stitch, 2.5-cm fundoplication performed over a 60-Frisian bougie. There were no intraoperative complications. Details [...] then mobilized the fundus of the s tomach by beginning approximately one-half the way down [...] stomach posterior to the esophagus and a 60-Frisian bougie was passed by Anesthesiology down the [...] Absolute 11.23(H) 1.70 - 6.10 x10(3)/mc L [facility] Lymph % 15.3 % [facility] Lymphocytes Abs 2.4 0.9 - 3.2 x10(3)/mc L [facility] Monocyte % 10.5 % [facility] Monocyte Abs 1.6(H) 0.3 - 0.9 x10(3)/mc L [facility] Eos % 0.2 % [facility] Eosinophils Abs 0.0 0.0 - 0.4 x10(3)/mc L [facility] Basophil % 0.4 % [facility] Baso Absolute 0.1 0.0 - 0.1 x10(3)/mc L [facility] Immature Gran % 0.60 % [facility] Comment: Immature granulocytes(IG's)percentage and absolute count will include metamyelocytes, myelocytes, and promyelocytes. Blood smears from CBCs yielding IG's will be scanned manually for concordance. If this scan disagrees with the automated IG or if promyelocytes are noted, a manual differential will be performed. Immature Gran Absolute 0.10(H) 0.00 - 0.04 x10(3)/[facility] Blood specimen (specimen) 09/11/2016 4:31 AM EDT 09/11/2016 4:50 AM EDT Narrative Resulting Agency Comment Spec In Lab Mariaelena Godinez MD HEMATOLOGY ORDERABL ES [facility] [place] [address] * (ABNORMAL) Hemogram (09/11/2016 4:31 AM EDT) White Blood Cell 15.4(H) 4.0 - 9.5 x10(3)/[facility] Red Blood Cell 4.57 4.00 - 5.21 x10(6)/[facility] Hemoglobin 11.5(L) 11.7 - 15.5 gm/dL [facility] Hematocrit 35.1(L) 35.7 - 45.8 % [facility] Mean Cell Volume 76.8(L) 82.6 - 94.4 fL [facility] Mean Cell Hemoglobin 25.2(L) 27.1 - 32.0 pg [facility] Mean Cell Hemoglobin Concentration 32.8 31.7 - 35.0 gm/dL [facility] Platelet 337 145 - 357 x10(3)/[facility] RDW Standard Deviation 49.5(H) 37.0 - 46.0 fL [facility] RDW coefficient of variation 17.9(H) 11.5 - 14.1 % [facility] Mean Platelet Volume 10.2 7.6 - 12.9 fL [facility] NRBC% auto 0.0 % [facility] NRBC Absolute 0.000 0.000 - 0.000 x10(3)/mc L [facility] Blood specimen (specimen) 09/11/2016 4:31 AM EDT 09/11/2016 4:50 AM EDT Narrative Resulting Agency Comment Spec In Lab Mariaelena Godinez MD HEMATOLOGY ORDERABL ES Performing Organization Address [facility] Phone Number [facility] [place] [address] * Phosphorus (09/11/2016 4:31 AM EDT) Phosphorus 3.9 2.5 - 4.5 mg/dL [facility] Blood specimen (specimen) 09/11/2016 4:31 AM EDT 09/11/2016 4:50 AM EDT Narrative Resulting Agency Comment Spec In Lab Mariaelena Godinez MD CHEMISTRY ORDERABLE S Performing Organization Address [facility] Phone Number [facility] [place] [address] * Magnesium (09/11/2016 4:31 AM EDT) Magnesium 0.83 0.69 - 1.07 mmol/L [facility] Blood specimen (specimen) 09/11/2016 4:31 AM EDT 09/11/2016 4:50 AM EDT Narrative Resulting Agency Comment Spec In Lab Mariaelena Godinez MD CHEMISTRY ORDERABLE S Performing Organization Address [facility] de Phone Number [facility] [place] [address] * (ABNORMAL) Basic Metabolic Panel (non-fasting) (09/11/2016 4:31 AM EDT) Glucose 144 65 - 199 mg/dL [facility] Comment:Diabetes: >=200 mg/d L plus symptoms Blood Urea Nitrogen 8 8 - 18 mg/dL [facility] Creatinine 0.74 0.70 - 1.20 mg/dL [facility] Comment: Please note that the pediatric reference intervals supplied above were not validated at [facility]. Results from pediatric patients should be interpreted in conjunction to the patient's age, height and muscle mass. Sodium 138 135 - 145 mmol/L [facility] Potassium 4.0 3.5 - 5.0 mmol/L [facility] Comment: Please note: ??Patients with WBC >100,000 may have falsely elevated Potassium levels. ??For accurate Potassium quantification in these patients send serum separator tube (gold top) for subsequent determinations. ??Contact the Clinical Chemistry Laboratory if there are any questions. Chloride 101 98 - 107 mmol/L [facility] Carbon Dioxide 20(L) 22 - 31 mmol/L [facility] Anion Gap 17(H) 5 - 15 mmol/L [facility] Calcium 8.9 8.5 - 10.5 mg/dL [facility] Est Glomerular Filtration Rate >60 >=60 [facility] Comment: This estimated GFR [...] the following links into your internet browser. [email or web address] Blood specimen (specimen) 09/11/2016 4:31 AM EDT 09/11/2016 4:50 AM EDT Narrative Resulting Agency Comment Spec In Lab Mariaelena Godinez MD CHEMISTRY ORDERABLE S [facility] [place] [address] * (ABNORMAL) Differential, Automated (09/10/2016 2:40 PM EDT) Neutrophil % 76.7 % [facility] Neutrophil Absolute 17.12(H) 1.70 - 6.10 x10(3)/[facility] Lymph % 11.0 % [facility] Lymphocytes Abs 2.5 0.9 - 3.2 x10(3)/[facility] Monocyte % 11.1 % [facility] Monocyte Abs 2.5(H) 0.3 - 0.9 x10(3)/[facility] Eos % 0.0 % [facility] Eosinophils Abs 0.0 0.0 - 0.4 x10(3)/[facility] Basophil % 0.2 % [facility] Baso Absolute 0.0 0.0 - 0.1 x10(3)/[facility] Immature Gran % 1.00 % [facility] Comment: Immature granulocytes(IG's)percentage and absolute count will include metamyelocytes, myelocytes, and promyelocytes. Blood smears from CBCs yielding IG's will be scanned manually for concordance. If this scan disagrees with the automated IG or if promyelocytes are noted, a manual differential will be performed. Immature Gran Absolute 0.22(H) 0.00 - 0.04 x10(3)/[facility] Blood specimen (specimen) 09/10/2016 2:40 PM EDT 09/10/2016 2:47 PM EDT Narrative Resulting Agency Comment Spec In Lab Mariaelena Godinez MD HEMATOLOGY ORDERABL ES [facility] [place] [address] * (ABNORMAL) Hemogram (09/10/2016 2:40 PM EDT) White Blood Cell 22.3(H) 4.0 - 9.5 x10(3)/[facility] Red Blood Cell 4.81 4.00 - 5.21 x10(6)/[facility] Hemoglobin 12.0 11.7 - 15.5 gm/dL [facility] Hematocrit 36.1 35.7 - 45.8 % [facility] Mean Cell Volume 75.1(L) 82.6 - 94.4 fL [facility] Mean Cell Hemoglobin 24.9(L) 27.1 - 32.0 pg [facility] Mean Cell Hemoglobin Concentration 33.2 31.7 - 35.0 gm/dL [facility] Platelet 446(H) 145 - 357 x10(3)/mc L [facility] RDW Standard Deviation 47.6(H) 37.0 - 46.0 fL [facility] RDW coefficient of variation 17.6(H) 11.5 - 14.1 % [facility] Mean Platelet Volume 10.4 7.6 - 12.9 fL [facility] NRBC% auto 0.0 % [facility] NRBC Absolute 0.000 0.000 - 0.000 x10(3)/mc L [facility] Blood specimen (specimen) 09/10/2016 2:40 PM EDT 09/10/2016 2:47 PM EDT Narrative Resulting Agency Comment Spec In Lab Mariaelena Godinez MD HEMATOLOGY ORDERABL ES Performing Organization Address [facility]/ZIP Co de Phone Number [facility] [place] [address] * Phosphorus (09/10/2016 2:40 PM EDT) Phosphorus 4.1 2.5 - 4.5 mg/dL [facility] Comment:result rechecked-MARIAH Blood specimen (specimen) 09/10/2016 2:40 PM EDT 09/10/2016 2:47 PM EDT Narrative Resulting Agency Comment Spec In Lab Mariaelena Godinez MD CHEMISTRY ORDERABLE S Performing Organization Address City/[facility]/ZIP Co de Phone Number [facility] [place] [address] * Magnesium (09/10/2016 2:40 PM EDT) Magnesium 0.93 0.69 - 1.07 mmol/L [facility] Blood specimen (specimen) 09/10/2016 2:40 PM EDT 09/10/2016 2:47 PM EDT Narrative Resulting Agency Comment Spec In Lab Mariaelena Godinez MD CHEMISTRY ORDERABLE S [facility] [place] [address] * (ABNORMAL) Comprehensive metabolic panel (non-fasting) (09/10/2016 2:40 PM EDT) Glucose 150 65 - 199 mg/dL [facility] Comment:Diabetes: >=200 mg/d L plus symptoms Blood Urea Nitrogen 8 8 - 18 mg/dL [facility] Creatinine 0.88 0.70 - 1.20 mg/dL [facility] Comment: Please note that the pediatric reference intervals supplied above were not validated at [facility]. Results from pediatric patients should be interpreted in conjunction to the patient's age, height and muscle mass. Sodium 140 135 - 145 mmol/L [facility] Potassium 4.0 3.5 - 5.0 mmol/L [facility] Comment: Please note: ??Patients with WBC >100,000 may have falsely elevated Potassium levels. ??For accurate Potassium quantification in these patients send serum separator tube (gold top) for subsequent determinations. ??Contact the Clinical Chemistry Laboratory if there are any questions. Chloride 102 98 - 107 mmol/L [facility] Carbon Dioxide 20(L) 22 - 31 mmol/L [facility] Anion Gap 18(H) 5 - 15 mmol/L [facility] Calcium 9.4 8.5 - 10.5 mg/dL [facility] Protein, Total 7.2 6.1 - 8.0 gm/dL [facility] Albumin 4.0 3.2 - 5.2 gm/dL [facility] Aspartate Aminotransferase 54(H) 0 - 30 unit/L [facility] Alanine Aminotransferase 73(H) 0 - 30 unit/L [facility] Alkaline Phosphatase 99 40 - 104 unit/L [facility] Bilirubin, Total 0.3 0.2 - 1.3 mg/dL [facility] Est Glomerular Filtration Rate >60 >=60 [facility] Comment: This estimated GFR [...] the following links into your internet browser. [email or web address] Blood specimen (specimen) 09/10/2016 2:40 PM EDT 09/10/2016 2:47 PM EDT Narrative Resulting Agency Comment Spec In Lab Mariaelena Godinez MD CHEMISTRY ORDERABLE S Performing Organization Address City/[facility] Co de Phone Number [facility] [place] [address] * Calcium (09/10/2016 2:40 PM EDT) Calcium 9.4 8.5 - 10.5 mg/dL [facility] Blood specimen (specimen) 09/10/2016 2:40 PM EDT 09/10/2016 2:47 PM EDT Narrative Resulting Agency Comment Spec In Lab Mariaelena Godinez MD CHEMISTRY ORDERABLE S Performing Organization Address City/[facility]/ZIP Co de Phone Number [facility] [place] [address] * Scan, Peripheral Blood (09/10/2016 5:15 AM EDT) Plat estimate Normal [facility] RBC Morphology Abnormal [facility] Microcyte 1-5 /HPF [facility] Ovalocytes 1-5 /HPF [facility] Blood specimen (specimen) 09/10/2016 5:15 AM EDT 09/10/2016 5:51 AM EDT Narrative Resulting Agency Comment Spec In Lab Mariaelena Godinez MD HEMATOLOGY ORDERABL ES [facility] [place] [address] * (ABNORMAL) Differential, Automated (09/10/2016 5:15 AM EDT) Pathologist [facility] Neutrophil % 84.2 % [facility] Neutrophil Absolute 19.49(H) 1.70 - 6.10 x10(3)/mc L [facility] Lymph % 6.5 % [facility] Lymphocytes Abs 1.5 0.9 - 3.2 x10(3)/mc L [facility] Monocyte % 8.2 % [facility] Monocyte Abs 1.9(H) 0.3 - 0.9 x10(3)/mc L [facility] Eos % 0.0 % [facility] Eosinophils Abs 0.0 0.0 - 0.4 x10(3)/mc L [facility] Basophil % 0.1 % [facility] Baso Absolute 0.0 0.0 - 0.1 x10(3)/mc L [facility] Immature Gran % 1.00 % [facility] Comment: Immature granulocytes(IG's)percentage and absolute count will include metamyelocytes, myelocytes, and promyelocytes. Blood smears from CBCs yielding IG's will be scanned manually for concordance. If this scan disagrees with the automated IG or if promyelocytes are noted, a manual differential will be performed. Immature Gran Absolute 0.23(H) 0.00 - 0.04 x10(3)/ L [facility] Blood specimen (specimen) 09/10/2016 5:15 AM EDT 09/10/2016 5:51 AM EDT Narrative Resulting Agency Comment Spec In Lab Mariaelena Godinez MD HEMATOLOGY ORDERABL ES [facility] [place] [address] * (ABNORMAL) Hemogram (09/10/2016 5:15 AM EDT) White Blood Cell 23.2(H) 4.0 - 9.5 x10(3)/[facility] Red Blood Cell 4.78 4.00 - 5.21 x10(6)/[facility] Hemoglobin 11.9 11.7 - 15.5 gm/dL [facility] Hematocrit 36.0 35.7 - 45.8 % [facility] Mean Cell Volume 75.3(L) 82.6 - 94.4 fL [facility] Mean Cell Hemoglobin 24.9(L) 27.1 - 32.0 pg [facility] Mean Cell Hemoglobin Concentration 33.1 31.7 - 35.0 gm/dL [facility] Platelet 419(H) 145 - 357 x10(3)/[facility] RDW Standard Deviation 47.5(H) 37.0 - 46.0 [facility] RDW coefficient of variation 17.3(H) 11.5 - 14.1 % [facility] Mean Platelet Volume 10.5 7.6 - 12.9 fL [facility] NRBC% auto 0.0 % [facility] NRBC Absolute 0.000 0.000 - 0.000 x10(3)/[facility] Blood specimen (specimen) 09/10/2016 5:15 AM EDT 09/10/2016 5:51 AM EDT Narrative Resulting Agency Comment Spec In Lab Mariaelena Godinez MD HEMATOLOGY ORDERABL ES Performing Organization Address [facility] de Phone Number [facility] [place] [address] * (ABNORMAL) Phosphorus (09/10/2016 5:15 AM EDT) Phosphorus 1.3(Critic al) 2.5 - 4.5 mg/dL [facility] Comment:Called by: tang, Read back by: loretta hendrickson, Date/Time:09/10/16 06:42. Blood specimen (specimen) 09/10/2016 5:15 AM EDT 09/10/2016 5:51 AM EDT Narrative Resulting Agency Comment Spec In Lab Mariaelena Godinez MD CHEMISTRY ORDERABLE S Performing Organization Address [facility] de Phone Number [facility] [place] [address] * Magnesium (09/10/2016 5:15 AM EDT) Magnesium 0.98 0.69 - 1.07 mmol/L [facility] Blood specimen (specimen) 09/10/2016 5:15 AM EDT 09/10/2016 5:51 AM EDT Narrative Resulting Agency Comment Spec In Lab Mariaelena Godinez MD CHEMISTRY ORDERABLE S Performing Organization Address [facility] Co de Phone Number [facility] [place] [address] * (ABNORMAL) Basic Metabolic Panel (non-fasting) (09/10/2016 5:15 AM EDT) Glucose 167 65 - 199 mg/dL [facility] Comment:Diabetes: >=200 mg/d L plus symptoms Blood Urea Nitrogen 9 8 - 18 mg/dL [facility] Creatinine 0.79 0.70 - 1.20 mg/dL [facility] Comment: Please note that the pediatric reference intervals supplied above were not validated at [facility]. Results from pediatric patients should be interpreted in conjunction to the patient's age, height and muscle mass. Sodium 137 135 - 145 mmol/L [facility] Potassium 3.9 3.5 - 5.0 mmol/L [facility] Comment: Please note: ??Patients with WBC >100,000 may have falsely elevated Potassium levels. ??For accurate Potassium quantification in these patients send serum separator tube (gold top) for subsequent determinations. ??Contact the Clinical Chemistry Laboratory if there are any questions. Chloride 103 98 - 107 mmol/L [facility] Carbon Dioxide 20(L) 22 - 31 mmol/L [facility] Anion Gap 14 5 - 15 mmol/L [facility] Calcium 9.6 8.5 - 10.5 mg/dL [facility] Est Glomerular Filtration Rate >60 >=60 [facility] Comment: This estimated GFR [...] the following links into your internet browser. [email or web address] Blood specimen (specimen) 09/10/2016 5:15 AM EDT 09/10/2016 5:51 AM EDT Narrative Resulting Agency Comment Spec In Lab Mariaelena Godinez MD CHEMISTRY ORDERABLE S [facility] [place] [address] * (ABNORMAL) Phosphorus (09/09/2016 9:24 PM EDT) Phosphorus 1.1(Critic al) 2.5 - 4.5 mg/dL [facility] Comment:Called by: pv, Read back by: Eladia Dominique, Date/Time:09/09/16 22:39_. Blood specimen (specimen) 09/09/2016 9:24 PM EDT 09/09/2016 9:38 PM EDT Narrative Resulting Agency Comment Spec In Lab Mariaelena Godinez MD CHEMISTRY ORDERABLE S Performing Organization Address [facility] Co de Phone Number [facility] [place] [address] * Magnesium (09/09/2016 9:24 PM EDT) Magnesium 0.73 0.69 - 1.07 mmol/L [facility] Blood specimen (specimen) 09/09/2016 9:24 PM EDT 09/09/2016 9:38 PM EDT Narrative Resulting Agency Comment Spec In Lab Mariaelena Godinez MD CHEMISTRY ORDERABLE S Performing Organization Address [facility] [facility] Co de Phone Number [facility] [place] [address] * (ABNORMAL) Basic Metabolic Panel (non-fasting) (09/09/2016 9:24 PM EDT) Glucose 236(H) 65 - 199 mg/dL [facility] Comment:Diabetes: >=200 mg/d L plus symptoms Blood Urea Nitrogen 10 8 - 18 mg/dL [facility] Creatinine 0.80 0.70 - 1.20 mg/dL [facility] Comment: Please note that the pediatric reference intervals supplied above were not validated at [facility]. Results from pediatric patients should be interpreted in conjunction to the patient's age, height and muscle mass. Sodium 134(L) 135 - 145 mmol/L [facility] Potassium 4.0 3.5 - 5.0 mmol/L [facility] Comment: Please note: ??Patients with WBC >100,000 may have falsely elevated Potassium levels. ??For accurate Potassium quantification in these patients send serum separator tube (gold top) for subsequent determinations. ??Contact the Clinical Chemistry Laboratory if there are any questions. Chloride 100 98 - 107 mmol/L [facility] Carbon Dioxide 19(L) 22 - 31 mmol/L [facility] Anion Gap 15 5 - 15 mmol/L [facility] Calcium 9.0 8.5 - 10.5 mg/dL [facility] Est Glomerular Filtration Rate >60 >=60 [facility] Comment: This estimated GFR [...] the following links into your internet browser. [email or web address] Blood specimen (specimen) 09/09/2016 9:24 PM EDT 09/09/2016 9:38 PM EDT Narrative Resulting Agency Comment Spec In Lab Mariaelena Godinez MD CHEMISTRY ORDERABLE S [facility] [place] [address] * (ABNORMAL) Cardiac Enzymes (09/09/2016 9:24 PM EDT) Troponin-T <0.03 <=0.03 ng/mL [facility] Comment: 0.03 ng/mL: Represents the [...] consensus document of the Joint Society of Cardiology/[place] College [employer] Committee for the redefinition of myocardial infarction. ??Journal of the [place] College [employer]iology 2000; 36: 959-969] Creatine Kinase 161(H) 0 - 160 unit/L [facility] Blood specimen (specimen) 09/09/2016 9:24 PM EDT 09/09/2016 9:38 PM EDT Narrative Resulting Agency Comment Spec In Lab Mariaelena Godinez MD CHEMISTRY ORDERABLE S Performing Organization Address [facility] Co de Phone Number [facility] [place] [address] * EKG 12 Lead (09/09/2016 8:56 PM EDT) Ventricular rate 114 BPM MUSE SYSTEM Atrial Rate 114 BPM MUSE SYSTEM P-R Interval 122 ms MUSE SYSTEM QRS Duration 84 ms MUSE SYSTEM Q-T Interval 346 ms MUSE SYSTEM QTC Calculated (Bezet) 476 ms MUSE SYSTEM Calculated P Mcdavid 37 degrees MUSE SYSTEM Calculated R Mcdavid 9 degrees MUSE SYSTEM Calculated T Mcdavid 9 degrees MUSE SYSTEM INTERPRETATION Sinus tachycardia Minimal voltage criteria for LVH, may be normal variant ST & T wave abnormality, consider anterolateral ischemia Abnormal ECG No previous ECGs available Confirmed by MD GARCIA ARMIN ([id number]) on 09/10/2016 2:22:59 PM MUSE SYSTEM 09/09/2016 8:56 PM EDT 09/10/2016 2:22 PM EDT Mariaelena Godinez MD ECG ORDERABLES Performing Organization Address [facility] Co de Phone Number MUSE SYSTEM documented [...] EDT 12.5 mg HYDROmorphone (DILAUDID) 1 mg/mL [employer] SUPERVISOR 50 mL Intravenous, FO[employer] AND NUTRITION SERVICES SUPERVISOR ONLY, Starting on Bev 09/09/16 at 1645, [...] & NIGHTLY, 4 doses, First dose on Bev 09/09/16 at 2345, Last dose on Tue09/10/16 at [...] Minutes 0224 (New Bag - Provider: Loretta Hendrickson RN) potassium phosphate (monobasic) (K-PHOS) tablet 500 mg [...] 09/09/2016 09/10/2016 09/11/2016 HYDROmorphone (DILAUDID) 1 mg/mL [employer] SUPERVISOR 50 mL (CANCELED) Intravenous, [employer]UTRITION SERVICES SUPERVISOR ONLY, Starting on Bev 09/09/16 at 1645, [...] hours., Routine 1252 (Given - Provider: Gia Barnes RN)1658 (Given - Provider: Gia Barnes RN) BUpivacaine (PF) (MARCAINE) 0.25 % (2.5 mg/mL) injection (CANCELED) ONCE PRN, Starting on Bev 09/09/16 at 1353, Until 09/11/16 at 1519, Intra-Operative (Intra-Procedure), Routine 1353 (Given - Provider: Mariaelena Godinez MD) diphenhydrAMINE (BENADRYL) injection 25 mg 25 mg, Intravenous, EVERY 30 MIN PRN, 2 doses, Starting on Bev 09/09/16 at 1850, Until 7/29/17 at 1519, Itching, May repeat dose in 30 minutes if pruritis not relieved. Per [employer]ITION SERVICES SUPERVISOR order., Recovery (Recovery-Hospital Unit), Routine hydrALAZINE (APRESOLINE) [...] PACU Recovery 1608 (Given - Provider: Enid Hunter, DAVID)1634 (Given - Provider: Marylin Hand RN)1653 (Given - Provider: Enid Hunter, DAVID)1724 (Given - Provider: Enid Hunter, RN) lidocaine (XYLOCAINE) 10 mg/mL (1 %) injection [...] NOT exceed 2 mg total dose. Per [employer] AND NUTRITION SERVICES SUPERVISOR order., Recovery (Recovery-Hospital Unit), Routine ondansetron (ZOFRAN) [...] (Recovery-Hospital Unit) 2235 (Given - Provider: Loretta Hendrickson, DAVID) ondansetron (ZOFRAN) tablet 4 mg(Linked Group 1) [...] Routine 2235 (See Alternative - Provider: Loretta Hendrickson, DAVID) oxyCODONE (ROXICODONE) 5 mg/5 mL solution 5 [...] 10mg, Routine 1411 (Given - Provider: Gia Barnes RN)1810 (Given - Provider: Wandy Leiva RN)2228 (Given - Provider: Adelina Pradhan, DAVID) 0311 (Given - Provider: Brook Iraheta, RN)0819 (Given - Provider: Bianka Mccabe RN) prochlorperazine [...] Routine 0105 (See Alternative - Provider: Loretta Hendrickson RN) sodium chloride 0.9 % flush 5-20 mL [...] Routine documented in this encounter Care Teams Lab Coordinator Relationship Specialty Start Date End Date Shital Brooke, JANET [address] [place] [address] PCP - General Family Medicine 07/20/16 12/04/17 documented as of this encounter
--- OUTSIDE RECORDS SUMMARY | 2024-02-03 13:04 | XMS_ITS | Encounter Summary ---
Author Organization Counts Include [facility] Address [facility] [place] [address] Care Team Providers Care Director Smb Sales Name Role Phone Shital Brooke APRN Primary Care Provider [phone] Encounter Details Date Type Department Care Team (Late st Contact Info) Description 09/25/2016 Telephone [place] [phone] Marybeth Barnes MD Social History Tobacco Use Types Packs/Day [...] Barnes MD - 09/25/2016 3:20 PM EDT [employer] Telephone Note Pt is s/p lap Molly [...] on filedocumented in this encounter Care Teams Director Smb Sales Relationship Specialty Start Date End Date Shital Brooke, JANET [address] [place] [address] PCP - General Family Medicine 07/20/16 12/04/17 documented as of this encounter
--- OUTSIDE RECORDS SUMMARY | 2024-02-03 13:04 | XMS_ITS | Encounter Summary ---
Author Organization [facility] Address [facility] [address] [place] [address] Care Team Providers Care Enterprise Architect Manager Name Role Phone Edwardo Shital JANET Primary Care Provider [phone] Reason for Referral * Consultation (Routine) - Closed Specialty Diagnoses / Procedures Referred By Dayan parker Referred To Contact Plastic Surgery Diagnoses Bloated abdomen John Garner APRN [facility] [place] [address] [facility] [address] [place] [address] Referral ID Status Reason Start Date Expiration Date V isits Requested Visits Authorized [id number] Closed Consult, Test & Treat 03/28/2017 03/28/2018 1 1 Encounter Details Date Type Department Care Team (Late st Contact Info) Description 03/28/2017 9:30 AM EST Office [place] [phone] John Garner APRN [facility] [place] [address] Chronic idiopathic constipation; Bloated abdomen [...] pain documented in this encounter Care Teams Enterprise Architect Manager Relationship Specialty Start Date End Date Shital Brooke, JANET [address] [place] [address] PCP - General Family Medicine 07/20/16 12/04/17 documented as of this encounter
--- OUTSIDE RECORDS SUMMARY | 2024-02-03 13:04 | XMS_ITS | Encounter Summary ---
[place] [address] Care Team Providers Care Computer Science Intern Name Role Phone Shital Brooke APRN Primary Care Provider Reason for Visit * Auth/Cert Specialty Diagnoses / Procedures Referred By Contac t Referred To Contact Diagnoses GERD (gastroesophageal reflux disease) GERD Procedures PRO LAP, ESOPHAGOGAST FUNDOPLASTY LAPAROSCOPIC MIRTHA FUNDOPLASTY (WRVU 18.1) MODIFIER, HIATAL HERNIA Referral ID Status Reason Start Date Expiration Date Visits Re quested Visits Authorized [id number] 1 1 Encounter Details Date Type Department Care Team (Latest Contact Info) Description 09/09/2016 10:06 AM EDT - 09/11/2016 1:19 PM EDT Hospital Encounter [address] [place] [address] Mariaelena Godinez MD Gastroesophageal reflux disease, esophagitis presence not [...] changed to oral pain medications and the DIRECTOR OF SOCIAL SERVICES was discontinued on POD# 1. She was [...] 09/14/2016 9:00 AM John Garner APRN Gastroenterology [phone] 10/13/2016 4:20 PM Mariaelena Godinez MD General Surgery [phone] 10/20/2016 1:40 PM Adelina Howard MD Otolaryngology [phone] Instructions Given to Patient at Discharge: Call your doctor if you develop: Fever greater than 101.3 degrees Farenheit (38.5 degrees Celcius), chills, nausea or vomiting. Alsocall if you develop severe pain not relieved by your prescribed oral pain medicine. CALL THE GENERAL SURGERY CLINIC DURING WORKING HOURS AT , OR CALL AFTERCLINIC HOURS, WEEKENDS AND HOLIDAYS: ASK FOR THE GENERAL SURGERY RESIDENT ORNAMENTAL IRONWORKING SUPERVISOR IF ANY OF THE ABOVE OCCUR. Activity level: Increase your activity slowly. You may tire easily, so frequent rest periods may be necessary. Do not lift more than 10 pounds for 4 weeks. Walk three times a day. Use common sense. Don't exhaust yourself. Diet: You should follow a post Mirtha diet, as instructed by the home care chaplain in the hospital for a period of [...] at the [facility], on Thursday, October 13, 2016 at 4:20pm. You need to follow-up with your PCP regarding your blood pressure in the next 1- 2 weeks. Please call if you have any issues. You will receive a letter in the mail confirming the appointment date and time. Your follow-up is very important to us. Please call [phone] if you do not hear from us within 7 days of discharge or if you need to change the appointment date/time. Signed: INOCENCIA MENDEZ MD 09/11/2016 Primary Care Physician: Shital Brooke APRN [address] / [facility] [id number] documented in this encounter Medications at Time [...] 09/10 0700 In: 2365.2 [P.O.:60; I.V.:2305.2] Out: 2081 [Urine:2074] Physical Exam: General: NAD, resting comfortably, [...] to monitor. PLAN: NEURO: Pain control with DIRECTOR OF SOCIAL SERVICES Dilaudid and IV Tylenol; transition to elixir [...] now s/p laparoscopic Mirtha fundoplication. Complaining of 09/23 constant chest tightness of 1 hour duration [...] in twenty minutes Medicated for pain and DIRECTOR OF SOCIAL SERVICES set up... NPO status maintained 1800 Report [...] 2.49) performed by Jovani Treviño MD at [facility] Medications: No current facility-administered medications [...] Pt hoping to go home in AM. DIRECTOR OF SOCIAL SERVICES dc'd, pt tolerating pain control w/10mg oxy [...] Admission: Independent Home Environment: Currently staying in [facility] until permanent housing available. Social & Family Supports/Community Resources: Lives with boyfriend/Gissell eng. Behavioral Health History: Denies any Substance Use/Abuse: No Other Pertinent/Service Specific Information: No Health/Prescription Coverage: Primary Insurance: MEDICARE A+B Secondary Insurance: MEDICAID [place] Prescription Coverage: Medicaid Preferred Pharmacy: [facility] in [place], [place] Other: No Primary Care Provider: Shital Brooke APRN [phone] Patient/Caregiver Goals of Treatment: Control pain & [...] needed for discharge. Uma Carcamo RN Pager: [phone] * Plan of Care - Loretta Hendrickson [...] care throughout shift. Pain well controlled with DIRECTOR OF SOCIAL SERVICES.Pt c/o intermittent nausea; treated with zofran and [...] Godinez MD - 09/09/2016 3:18 PM EDT [facility] Operative Note Patient Name: Ruby Sprague : [id number] MR#: [id number] Case Date: 09/09/2016 Surgeon: Surgeon(s) and Role: [...] a 3-stitch, 2.5-cm fundoplication performed over a 60-Persian bougie. There were no intraoperative complications. Details [...] The esophagus was then encircled using a Export which was held in place using Endoloop. Further paraesophageal dissection was performed until we had obtained approximately 3 cm of tension- free intraabdominal esophagus. At this point, the diaphragmatic hiatus was approximated using interrupted sutures of 0 Nurolon tied over David pledgets. We then wrapped the stomach posterior to the esophagus and a 60-Persian bougie was passed by Anesthesiology down the [...] 4:31 AM EDT) Neutrophil % 73.0 % [facility] Neutrophil Absolute 11.23(H) 1.70 - 6.10 x10(3)/mc L [facility] Lymph % 15.3 % [facility] Lymphocytes Abs 2.4 0.9 - 3.2 x10(3)/mc L [facility] Monocyte % 10.5 % [facility] Monocyte Abs 1.6(H) 0.3 - 0.9 x10(3)/mc L [facility] Eos % 0.2 % [facility] Eosinophils Abs 0.0 0.0 - 0.4 x10(3)/mc L [facility] Basophil % 0.4 % [facility] Baso Absolute 0.1 0.0 - 0.1 x10(3)/mc L [facility] Immature Gran % 0.60 % [facility] Comment: Immature granulocytes(IG's)percentage and absolute count will include metamyelocytes, myelocytes, and promyelocytes. Blood smears from CBCs yielding IG's will be scanned manually for concordance. If this scan disagrees with the automated IG or if promyelocytes are noted, a manual differential will be performed. Immature Gran Absolute 0.10(H) 0.00 - 0.04 x10(3)/ L [facility] Blood specimen (specimen) 09/11/2016 4:31 AM EDT 09/11/2016 4:50 AM EDT Narrative Resulting Agency Comment Spec In Lab Mariaelena Godinez MD HEMATOLOGY ORDERABL ES [facility] [place] [address] * (ABNORMAL) Hemogram (09/11/2016 4:31 AM EDT) White Blood Cell 15.4(H) 4.0 - 9.5 x10(3)/[facility] Red Blood Cell 4.57 4.00 - 5.21 x10(6)/[facility] Hemoglobin 11.5(L) 11.7 - 15.5 gm/dL [facility] Hematocrit 35.1(L) 35.7 - 45.8 % [facility] Mean Cell Volume 76.8(L) 82.6 - 94.4 fL [facility] Mean Cell Hemoglobin 25.2(L) 27.1 - 32.0 pg [facility] Mean Cell Hemoglobin Concentration 32.8 31.7 - 35.0 gm/dL [facility] Platelet 337 145 - 357 x10(3)/[facility] RDW Standard Deviation 49.5(H) 37.0 - 46.0 fL [facility] RDW coefficient of variation 17.9(H) 11.5 - 14.1 % [facility] Mean Platelet Volume 10.2 7.6 - 12.9 fL [facility] NRBC% auto 0.0 % [facility] NRBC Absolute 0.000 0.000 - 0.000 x10(3)/ L [facility] Blood specimen (specimen) 09/11/2016 4:31 AM EDT 09/11/2016 4:50 AM EDT Narrative Resulting Agency Comment Spec In Lab Mariaelena Godinez MD HEMATOLOGY ORDERABL ES Performing Organization Address [facility] de Phone Number [facility] [place] [address] * Phosphorus (09/11/2016 4:31 AM EDT) Phosphorus 3.9 2.5 - 4.5 mg/dL [facility] Blood specimen (specimen) 09/11/2016 4:31 AM EDT 09/11/2016 4:50 AM EDT Narrative Resulting Agency Comment Spec In Lab Mariaelena Godinez MD CHEMISTRY ORDERABLE S Performing Organization Address [facility] Phone Number [facility] [place] [address] * Magnesium (09/11/2016 4:31 AM EDT) Magnesium 0.83 0.69 - 1.07 mmol/L [facility] Blood specimen (specimen) 09/11/2016 4:31 AM EDT 09/11/2016 4:50 AM EDT Narrative Resulting Agency Comment Spec In Lab Mariaelena Godinez MD CHEMISTRY ORDERABLE S Performing Organization Address [facility] de Phone Number [facility] [place] [address] * (ABNORMAL) Basic Metabolic Panel (non-fasting) (09/11/2016 4:31 AM EDT) Glucose 144 65 - 199 mg/dL [facility] Comment:Diabetes: >=200 mg/d L plus symptoms Blood Urea Nitrogen 8 8 - 18 mg/dL [facility] Creatinine 0.74 0.70 - 1.20 mg/dL [facility] Comment: Please note that the pediatric reference intervals supplied above were not validated at [facility]. Results from pediatric patients should be interpreted in conjunction to the patient's age, height and muscle mass. Sodium 138 135 - 145 mmol/L [facility] Potassium 4.0 3.5 - 5.0 mmol/L [facility] Comment: Please note: ??Patients with WBC >100,000 may have falsely elevated Potassium levels. ??For accurate Potassium quantification in these patients send serum separator tube (gold top) for subsequent determinations. ??Contact the Clinical Chemistry Laboratory if there are any questions. Chloride 101 98 - 107 mmol/L [facility] Carbon Dioxide 20(L) 22 - 31 mmol/L [facility] Anion Gap 17(H) 5 - 15 mmol/L [facility] Calcium 8.9 8.5 - 10.5 mg/dL [facility] Est Glomerular Filtration Rate >60 >=60 [facility] Comment: This estimated GFR (eGFR) [...] the following links into your internet browser. http://Food on the Table/DHnkdep http://Food on the Table/DHMCnkf Blood specimen (specimen) 09/11/2016 4:31 AM EDT 09/11/2016 4:50 AM EDT Narrative Resulting Agency Comment Spec In Lab Mariaelena Godinez MD CHEMISTRY ORDERABLE S [facility] [place] [place] [address] * (ABNORMAL) Differential, Automated (09/10/2016 2:40 PM EDT) Neutrophil % 76.7 % [facility] Neutrophil Absolute 17.12(H) 1.70 - 6.10 x10(3)/ L [facility] Lymph % 11.0 % [facility] Lymphocytes Abs 2.5 0.9 - 3.2 x10(3)/[facility] Monocyte % 11.1 % [facility] Monocyte Abs 2.5(H) 0.3 - 0.9 x10(3)/[facility] Eos % 0.0 % [facility] Eosinophils Abs 0.0 0.0 - 0.4 x10(3)/[facility] Basophil % 0.2 % [facility] Baso Absolute 0.0 0.0 - 0.1 x10(3)/[facility] Immature Gran % 1.00 % [facility] Comment: Immature granulocytes(IG's)percentage and absolute count will include metamyelocytes, myelocytes, and promyelocytes. Blood smears from CBCs yielding IG's will be scanned manually for concordance. If this scan disagrees with the automated IG or if promyelocytes are noted, a manual differential will be performed. Immature Gran Absolute 0.22(H) 0.00 - 0.04 x10(3)/[facility] Blood specimen (specimen) 09/10/2016 2:40 PM EDT 09/10/2016 2:47 PM EDT Narrative Resulting Agency Comment Spec In Lab Mariaelena Godinez MD HEMATOLOGY ORDERABL ES [facility] [place] [place] [address] * (ABNORMAL) Hemogram (09/10/2016 2:40 PM EDT) White Blood Cell 22.3(H) 4.0 - 9.5 x10(3)/[facility] Red Blood Cell 4.81 4.00 - 5.21 x10(6)/[facility] Hemoglobin 12.0 11.7 - 15.5 gm/dL [facility] Hematocrit 36.1 35.7 - 45.8 % [facility] Mean Cell Volume 75.1(L) 82.6 - 94.4 fL [facility] Mean Cell Hemoglobin 24.9(L) 27.1 - 32.0 pg [facility] Mean Cell Hemoglobin Concentration 33.2 31.7 - 35.0 gm/dL [facility] Platelet 446(H) 145 - 357 x10(3)/mc L [facility] RDW Standard Deviation 47.6(H) 37.0 - 46.0 fL [facility] RDW coefficient of variation 17.6(H) 11.5 - 14.1 % [facility] Mean Platelet Volume 10.4 7.6 - 12.9 fL [facility] NRBC% auto 0.0 % [facility] NRBC Absolute 0.000 0.000 - 0.000 x10(3)/mc L [facility] Blood specimen (specimen) 09/10/2016 2:40 PM EDT 09/10/2016 2:47 PM EDT Narrative Resulting Agency Comment Spec In Lab Mariaelena Godinez MD HEMATOLOGY ORDERABL ES Performing Organization Address [facility] Co de Phone Number [facility] [place] [address] * Phosphorus (09/10/2016 2:40 PM EDT) Phosphorus 4.1 2.5 - 4.5 mg/dL [facility] Comment:result rechecked-MARIAH Blood specimen (specimen) 09/10/2016 2:40 PM EDT 09/10/2016 2:47 PM EDT Narrative Resulting Agency Comment Spec In Lab Mariaelena Godinez MD CHEMISTRY ORDERABLE S Performing Organization Address City/[facility]/ZIP Co de Phone Number [facility] [place] [address] * Magnesium (09/10/2016 2:40 PM EDT) Magnesium 0.93 0.69 - 1.07 mmol/L [facility] Blood specimen (specimen) 09/10/2016 2:40 PM EDT 09/10/2016 2:47 PM EDT Narrative Resulting Agency Comment Spec In Lab Mariaelena Godinez MD CHEMISTRY ORDERABLE S [facility] [place] [address] * (ABNORMAL) Comprehensive metabolic panel (non-fasting) (09/10/2016 2:40 PM EDT) Pathologist [facility] Glucose 150 65 - 199 mg/dL [facility] Comment:Diabetes: >=200 mg/d L plus symptoms Blood Urea Nitrogen 8 8 - 18 mg/dL [facility] Creatinine 0.88 0.70 - 1.20 mg/dL [facility] Comment: Please note that the pediatric reference intervals supplied above were not validated at [facility]. Results from pediatric patients should be interpreted in conjunction to the patient's age, height and muscle mass. Sodium 140 135 - 145 mmol/L [facility] Potassium 4.0 3.5 - 5.0 mmol/L [facility] Comment: Please note: ??Patients with WBC >100,000 may have falsely elevated Potassium levels. ??For accurate Potassium quantification in these patients send serum separator tube (gold top) for subsequent determinations. ??Contact the Clinical Chemistry Laboratory if there are any questions. Chloride 102 98 - 107 mmol/L [facility] Carbon Dioxide 20(L) 22 - 31 mmol/L [facility] Anion Gap 18(H) 5 - 15 mmol/L [facility] Calcium 9.4 8.5 - 10.5 mg/dL [facility] Protein, Total 7.2 6.1 - 8.0 gm/dL [facility] Albumin 4.0 3.2 - 5.2 gm/dL [facility] Aspartate Aminotransferase 54(H) 0 - 30 unit/L [facility] Alanine Aminotransferase 73(H) 0 - 30 unit/L [facility] Alkaline Phosphatase 99 40 - 104 unit/L [facility] Bilirubin, Total 0.3 0.2 - 1.3 mg/dL [facility] Est Glomerular Filtration Rate >60 >=60 [facility] Comment: This estimated GFR (eGFR) [...] the following links into your internet browser. http://Food on the Table/DHnkdep http://Food on the Table/DHMCnkf Blood specimen (specimen) 09/10/2016 2:40 PM EDT 09/10/2016 2:47 PM EDT Narrative Resulting Agency Comment Spec In Lab Mariaelena Godinez MD CHEMISTRY ORDERABLE S Performing Organization Address City/[facility] Co de Phone Number [facility] [place] [address] * Calcium (09/10/2016 2:40 PM EDT) Calcium 9.4 8.5 - 10.5 mg/dL [facility] Blood specimen (specimen) 09/10/2016 2:40 PM EDT 09/10/2016 2:47 PM EDT Narrative Resulting Agency Comment Spec In Lab Mariaelena Godinez MD CHEMISTRY ORDERABLE S Performing Organization Address City/[facility]/ZIP Co de Phone Number [facility] [place] [address] * Scan, Peripheral Blood (09/10/2016 5:15 AM EDT) Pathologist [facility] Plat estimate Normal [facility] RBC Morphology Abnormal [facility] Microcyte 1-5 /HPF [facility] Ovalocytes 1-5 /HPF [facility] Blood specimen (specimen) 09/10/2016 5:15 AM EDT 09/10/2016 5:51 AM EDT Narrative Resulting Agency Comment Spec In Lab Mariaelena Godinez MD HEMATOLOGY ORDERABL ES [facility] [place] [place] [address] * (ABNORMAL) Differential, Automated (09/10/2016 5:15 AM EDT) Pathologist [facility] Neutrophil % 84.2 % [facility] Neutrophil Absolute 19.49(H) 1.70 - 6.10 x10(3)/mc L [facility] Lymph % 6.5 % [facility] Lymphocytes Abs 1.5 0.9 - 3.2 x10(3)/mc L [facility] Monocyte % 8.2 % [facility] Monocyte Abs 1.9(H) 0.3 - 0.9 x10(3)/mc L [facility] Eos % 0.0 % [facility] Eosinophils Abs 0.0 0.0 - 0.4 x10(3)/mc L [facility] Basophil % 0.1 % [facility] Baso Absolute 0.0 0.0 - 0.1 x10(3)/mc L [facility] Immature Gran % 1.00 % [facility] Comment: Immature granulocytes(IG's)percentage and absolute count will include metamyelocytes, myelocytes, and promyelocytes. Blood smears from CBCs yielding IG's will be scanned manually for concordance. If this scan disagrees with the automated IG or if promyelocytes are noted, a manual differential will be performed. Immature Gran Absolute 0.23(H) 0.00 - 0.04 x10(3)/ L [facility] Blood specimen (specimen) 09/10/2016 5:15 AM EDT 09/10/2016 5:51 AM EDT Narrative Resulting Agency Comment Spec In Lab Mariaelena Godinez MD HEMATOLOGY ORDERABL ES [facility] [place] [address] * (ABNORMAL) Hemogram (09/10/2016 5:15 AM EDT) White Blood Cell 23.2(H) 4.0 - 9.5 x10(3)/[facility] Red Blood Cell 4.78 4.00 - 5.21 x10(6)/[facility] Hemoglobin 11.9 11.7 - 15.5 gm/dL [facility] Hematocrit 36.0 35.7 - 45.8 % [facility] Mean Cell Volume 75.3(L) 82.6 - 94.4 fL [facility] Mean Cell Hemoglobin 24.9(L) 27.1 - 32.0 pg [facility] Mean Cell Hemoglobin Concentration 33.1 31.7 - 35.0 gm/dL [facility] Platelet 419(H) 145 - 357 x10(3)/[facility] RDW Standard Deviation 47.5(H) 37.0 - 46.0 [facility] RDW coefficient of variation 17.3(H) 11.5 - 14.1 % [facility] Mean Platelet Volume 10.5 7.6 - 12.9 fL [facility] NRBC% auto 0.0 % [facility] NRBC Absolute 0.000 0.000 - 0.000 x10(3)/[facility] Blood specimen (specimen) 09/10/2016 5:15 AM EDT 09/10/2016 5:51 AM EDT Narrative Resulting Agency Comment Spec In Lab Mariaelena Godinez MD HEMATOLOGY ORDERABL ES Performing Organization Address [facility] de Phone Number [facility] [place] [address] * (ABNORMAL) Phosphorus (09/10/2016 5:15 AM EDT) Phosphorus 1.3(Critic al) 2.5 - 4.5 mg/dL [facility] Comment:Called by: tang, Read back by: loretta hendrickson, Date/Time:09/10/16 06:42. Blood specimen (specimen) 09/10/2016 5:15 AM EDT 09/10/2016 5:51 AM EDT Narrative Resulting Agency Comment Spec In Lab Mariaelena Godinez MD CHEMISTRY ORDERABLE S Performing Organization Address [facility] de Phone Number [facility] [place] [address] * Magnesium (09/10/2016 5:15 AM EDT) Magnesium 0.98 0.69 - 1.07 mmol/L [facility] Blood specimen (specimen) 09/10/2016 5:15 AM EDT 09/10/2016 5:51 AM EDT Narrative Resulting Agency Comment Spec In Lab Mariaelena Godinez MD CHEMISTRY ORDERABLE S Performing Organization Address [facility] de Phone Number [facility] [place] [address] * (ABNORMAL) Basic Metabolic Panel (non-fasting) (09/10/2016 5:15 AM EDT) Glucose 167 65 - 199 mg/dL [facility] Comment:Diabetes: >=200 mg/d L plus symptoms Blood Urea Nitrogen 9 8 - 18 mg/dL [facility] Creatinine 0.79 0.70 - 1.20 mg/dL [facility] Comment: Please note that the pediatric reference intervals supplied above were not validated at [facility]. Results from pediatric patients should be interpreted in conjunction to the patient's age, height and muscle mass. Sodium 137 135 - 145 mmol/L [facility] Potassium 3.9 3.5 - 5.0 mmol/L [facility] Comment: Please note: ??Patients with WBC >100,000 may have falsely elevated Potassium levels. ??For accurate Potassium quantification in these patients send serum separator tube (gold top) for subsequent determinations. ??Contact the Clinical Chemistry Laboratory if there are any questions. Chloride 103 98 - 107 mmol/L [facility] Carbon Dioxide 20(L) 22 - 31 mmol/L [facility] Anion Gap 14 5 - 15 mmol/L [facility] Calcium 9.6 8.5 - 10.5 mg/dL [facility] Est Glomerular Filtration Rate >60 >=60 [facility] Comment: This estimated GFR (eGFR) [...] the following links into your internet browser. http://Food on the Table/DHnkdep http://Food on the Table/DHMCnkf Blood specimen (specimen) 09/10/2016 5:15 AM EDT 09/10/2016 5:51 AM EDT Narrative Resulting Agency Comment Spec In Lab Mariaelena Godinez MD CHEMISTRY ORDERABLE S [facility] [place] [address] * (ABNORMAL) Phosphorus (09/09/2016 9:24 PM EDT) Phosphorus 1.1(Critic al) 2.5 - 4.5 mg/dL [facility] Comment:Called by: pv, Read back by: Eladia Dominique, Date/Time:09/09/16 22:39_. Blood specimen (specimen) 09/09/2016 9:24 PM EDT 09/09/2016 9:38 PM EDT Narrative Resulting Agency Comment Spec In Lab Mariaelena Godinez MD CHEMISTRY ORDERABLE S Performing Organization Address [facility] Co de Phone Number [facility] [place] [address] * Magnesium (09/09/2016 9:24 PM EDT) Magnesium 0.73 0.69 - 1.07 mmol/L [facility] Blood specimen (specimen) 09/09/2016 9:24 PM EDT 09/09/2016 9:38 PM EDT Narrative Resulting Agency Comment Spec In Lab Mariaelena Godinez MD CHEMISTRY ORDERABLE S Performing Organization Address [facility] [facility] Co de Phone Number [facility] [place] [address] * (ABNORMAL) Basic Metabolic Panel (non-fasting) (09/09/2016 9:24 PM EDT) Glucose 236(H) 65 - 199 mg/dL [facility] Comment:Diabetes: >=200 mg/d L plus symptoms Blood Urea Nitrogen 10 8 - 18 mg/dL [facility] Creatinine 0.80 0.70 - 1.20 mg/dL [facility] Comment: Please note that the pediatric reference intervals supplied above were not validated at [facility]. Results from pediatric patients should be interpreted in conjunction to the patient's age, height and muscle mass. Sodium 134(L) 135 - 145 mmol/L [facility] Potassium 4.0 3.5 - 5.0 mmol/L [facility] Comment: Please note: ??Patients with WBC >100,000 may have falsely elevated Potassium levels. ??For accurate Potassium quantification in these patients send serum separator tube (gold top) for subsequent determinations. ??Contact the Clinical Chemistry Laboratory if there are any questions. Chloride 100 98 - 107 mmol/L [facility] Carbon Dioxide 19(L) 22 - 31 mmol/L [facility] Anion Gap 15 5 - 15 mmol/L [facility] Calcium 9.0 8.5 - 10.5 mg/dL [facility] Est Glomerular Filtration Rate >60 >=60 [facility] Comment: This estimated GFR (eGFR) [...] the following links into your internet browser. http://Food on the Table/DHnkdep http://Food on the Table/DHMCnkf Blood specimen (specimen) 09/09/2016 9:24 PM EDT 09/09/2016 9:38 PM EDT Narrative Resulting Agency Comment Spec In Lab Mariaelena Godinez MD CHEMISTRY ORDERABLE S [facility] [place] [address] * (ABNORMAL) Cardiac Enzymes (09/09/2016 9:24 PM EDT) Troponin-T <0.03 <=0.03 ng/mL [facility] Comment: 0.03 ng/mL: Represents the 99th percentile upper reference limit for normals. >0.03 ng/mL: Elevated cardiac troponin T level indicative of myocardial damage. Diagnosis of acute, evolving or recent SD requires a typical rise and gradual fall [...] consensus document of the Joint Society of Cardiology/[employer] College of Cardiology Committee for the redefinition of myocardial infarction. ??Journal of the [employer] College of Cardiology 2000; 36: 959-969] Creatine Kinase 161(H) 0 - 160 unit/L [facility] Blood specimen (specimen) 09/09/2016 9:24 PM EDT 09/09/2016 9:38 PM EDT Narrative Resulting Agency Comment Spec In Lab Mariaelena Godinez MD CHEMISTRY ORDERABLE S Performing Organization Address [facility] Co de Phone Number [facility] [place] [address] * EKG 12 Lead (09/09/2016 8:56 PM EDT) Ventricular rate 114 BPM MUSE SYSTEM Atrial Rate 114 BPM MUSE SYSTEM P-R Interval 122 ms MUSE SYSTEM QRS Duration 84 ms MUSE SYSTEM Q-T Interval 346 ms MUSE SYSTEM QTC Calculated (Bezet) 476 ms MUSE SYSTEM Calculated P [place] 37 degrees MUSE SYSTEM Calculated R [place] 9 degrees MUSE SYSTEM Calculated T [place] 9 degrees MUSE SYSTEM INTERPRETATION Sinus tachycardia Minimal voltage criteria for LVH, may be normal variant ST & T wave abnormality, consider anterolateral ischemia Abnormal ECG No previous ECGs available Confirmed by MD GARCIA ARMIN ([id number]) on 09/10/2016 2:22:59 PM MUSE SYSTEM 09/09/2016 8:56 PM EDT 09/10/2016 2:22 PM EDT Mariaelena Godinez MD ECG ORDERABLES Performing Organization Address [facility] Co de Phone Number MUSE SYSTEM [...] EDT 12.5 mg HYDROmorphone (DILAUDID) 1 mg/mL DIRECTOR OF SOCIAL SERVICES 50 mL Intravenous, DIRECTOR OF SOCIAL SERVICES ONLY, Starting on Bev 09/09/16 at 1645, Until Tue09/10/16 at 0932, Recovery (Recovery-Hospital Unit) New Syringe/Cartridge 09/09/2016 4:45 PM EDT HYDROmorphone (DILAUDID) syringe 0.2-0.4 mg 0.2-0.4 mg, Intravenous, EVERY 5 MIN PRN, Pain, Starting on Bev 09/09/16 at 1544, Until Tue09/09/16 at 1810, For moderate pain (4-6) give: [...] 1615, Until 09/10/16 at 1249, Pain, Routine Given 09/10/2016 9:55 [...] NIGHTLY, 4 doses, First dose on Bev 7/27/17 at 2345, Last dose on Tue09/10/16 at [...] Leiva RN) 0818 (Given - Provider: Bianka Mccabe RN) magnesium sulfate 1g in dextrose 5% [...] Hendrickson, DAVID) 0900 (Given - Provider: Wandy Leiva, DAVID)2100 (Given - Provider: Adelina Pradhan, DAVID) 0821 (Given - Provider: Bianka Mccabe, DAVID) Continuous Medication Order 09/09/2016 09/10/2016 09/11/2016 HYDROmorphone (DILAUDID) 1 mg/mL DIRECTOR OF SOCIAL SERVICES 50 mL (CANCELED) Intravenous, DIRECTOR OF SOCIAL SERVICES ONLY, Starting on Bev 09/09/16 at 1645, [...] Starting on Bev 09/09/16 at 1645, Until 09/10/16 at 0932, Recovery (Recovery-Hospital Unit) 1630 (New [...] 30 minutes if pruritis not relieved. Per DIRECTOR OF SOCIAL SERVICES order., Recovery (Recovery-Hospital Unit), Routine hydrALAZINE (APRESOLINE) [...] NOT exceed 2 mg total dose. Per DIRECTOR OF SOCIAL SERVICES order., Recovery (Recovery-Hospital Unit), Routine ondansetron (ZOFRAN) injection 4 mg (CANCELED) 4 mg, Intravenous, EVERY 30 MIN PRN, Starting on Bev 09/09/16 at 1544, Until Bev 09/09/16 at 1810, Nausea, May repeat 4 mg once in 30 minutes. If multiple antiemetics ordered, use ondansetron first and if ineffective use prochlorperazine second and if ineffective use promethazine, PACU Recovery 1633 (Given - Provider: Marylin Hand, RN) ondansetron (ZOFRAN) injection 4 mg(Linked Group 1) 4 mg, Intravenous, EVERY 8 HOURS PRN, Starting on Bev 09/09/16 at 1850, Until 09/11/16 at 1519, Nausea, May repeat times one in 30 minutes if ineffective. If multiple antiemetics are ordered, use ondanstron first, Recovery (Recovery-Hospital Unit) 2235 (Given - Provider: Loretta Hendrickson, RN) ondansetron (ZOFRAN) tablet 4 mg(Linked Group [...] Pradhan RN) 0311 (Given - Provider: Brook Iraheta RN)0819 (Given - Provider: Bianka Mccabe RN) prochlorperazine (COMPAZINE) injection 10 mg(Linked Group 2) 10 mg, Intravenous, EVERY 6 HOURS PRN, Starting on Bev 09/09/16 at 1850, Until 09/11/16 at 1519, Nausea, Vomiting, If multiple antiemetics are ordered, use ondansetron first. If ondansetron ineffective use prochlorperazine. , Recovery (Recovery-Hospital Unit), Routine 0105 (Given - Provider: Loretta Hendrickson RN) prochlorperazine (COMPAZINE) tablet 10 mg(Linked Group 2) [...] Routine documented in this encounter Care Teams Computer Science Intern Relationship Specialty Start Date End Date Shital Brooke, AJNET [address] [place] [address] PCP - General Family Medicine 07/20/16 12/04/17 documented as of this encounter
--- OUTSIDE RECORDS SUMMARY | 2024-02-03 13:05 | XMS_ITS | Encounter Summary ---
Author Organization [facility] Address [address] [place] [address] Care Team Providers Care Concrete Vibrator Operator Name Role Phone Caleb Ballard RPA Primary Care Provider [phone] Reason for Visit * Reason Onset Date Comments Patient Information Update 07/08/2020 Encounter Details Date Type Department Care Team (Late st Contact Info) Description 07/08/2020 Telephone [facility] [place] [address] [place] [address] Edie Ellis NP [address] [place] [phone] Patient Information Update Social History Tobacco Use Types Packs/Day Years Used Date Smoking Tobacco: Every Day Cigarettes Smokeless Tobacco: Never Comments:02/29/20 - Pt down t o 5 cigs/day. Alcohol Use Standard Drinks/Week Comments Yes 1 (1 standard drink = 0.6 oz pur e alcohol) Interpersonal Safety Answer Date Record ed Physically Hurt Never 09/16/2019 Verbally Threaten Not on file 09/16/2019 Comments Unknown Sex and Gender Information Value Date Recorded Sex Assigned at Not on file Legal Sex Female 17:45 EST Gender Identity Female 02/27/2020 19:23 EST Sexual Orientation Not on file documented as of this encounter Miscellaneous Notes * Telephone Encounter - Renu Nassar - 07/08/2020 1208 EDT [facility] 07/08/20 Right wrist sprain. Discharged home. documented in this encounter Plan of Treatment Not on file documented as of this encounter Visit Diagnoses Not on filedocumented in this encounter Care Teams Concrete Vibrator Operator Relationship Specialty Start Date End Date Caleb Ballard RPA [address] [place] [address] PCP - General 02/27/20 documented as of this encounter
--- OUTSIDE RECORDS SUMMARY | 2024-02-03 13:05 | XMS_ITS | Encounter Summary ---
Author Organization [facility] Address [address] [place] [address] Care Team Providers Care Cpa Tax Name Role Phone ElioCaleb Augustine BERGER Primary Care Provider [phone] Encounter Details Date Type Department Care Team (Late st Contact Info) Description 09/12/2020 Lab Requisition [facility] Pathology & Laboratory Medicine - [address] [address] Miguel Vaughn MD [address] [place] [phone] Gastro-esophageal reflux disease without esophagitis; Other [...] explore management options, if applicable. 09/16/2020 13:23 [facility] Final Diagnosis A. DUODENUM, BIOPSY: [...] with no significant pathologic abnormality 09/16/2020 13:23 [facility] Attestation By the signature below, the attending physician certifies that they have 1) personally conducted a gross and/or microscopic examination of the described specimen(s), and/or personally interpreted the results of laboratory testing of the described specimen(s), and 2) personally rendered or confirmed the above diagnosis. 09/16/2020 13:23 [facility] at 1323 Clinical History GERD, nausea, slipped mirtha fundoplication, gastric erosions; clinical diagnosis code: K21.9, K91.89, R11 09/16/2020 13:23 [facility] Gross Description A. Received in [...] F1. TELLY CAZARES(ASCP) 09/12/2020 11:29 09/16/2020 13:23 [facility] Performing Lab [facility] 09/16/2020 13:23 T [facility] Scanned Images 09/16/2020 13:23 [facility] Tissue ENTIRE ESOPHAGUS / Unknown [...] Unknown 09/11/2020 11:00 EDT 09/12/2020 9:43 EDT us Miguel Vaughn MD PATHOLOGY ORDERABLES Final Result [facility] [address] [place] [address] documented in this encounter Visit Diagnoses Diagnosis Gastro-esophageal reflux disease without esophagitis Esophageal reflux Other postprocedural complications and disorders of digestive system documented in this encounter Care Teams Cpa Tax Relationship Specialty Start Date End Date Caleb Ballard RPA [address] [place] [address] PCP - General 02/27/20 documented as of this encounter
--- OUTSIDE RECORDS SUMMARY | 2024-02-03 13:05 | XMS_ITS | Encounter Summary ---
Author Organization [facility] Address [address] [place] [address] Care Team Providers Care 8Th Grade Teacher Name Role Phone Caleb Ballard RPA Primary Care Provider [phone] Encounter Details Date Type Department Care Team (Late st Contact Info) Description 05/30/2021 Lab Requisition [facility] Pathology & Laboratory Medicine - [facility] [address] [place], [place] [address] Outr Resulting Lab, Provider Social History Tobacco [...] 4th Generation Negative Negative 06/01/2021 15:20 EDT [facility] Comment:If acute HIV-1 infec tion is suspected in a high risk patient, submit plasma specimen for HIV-1 RNA quantitation test. Blood VENOUS BLOOD / Unknown 05/29/2021 10:14 EDT 05/30/2021 22:06 EDT Narrative [facility] - 06/01/2021 15:20 EDT Fourth Generation assay performed on the Innolightaur XPT. us Provider Outr Resulting Lab IMMUNOLOGY AND SEROL OGY ORDERABLES Final Result [facility] [address] [place] [address] documented in this encounter Visit Diagnoses Not on filedocumented in this encounter Care Teams 8Th Grade Teacher Relationship Specialty Start Date End Date Caleb Ballard RPA [address] [place] [address] PCP - General 02/27/20 documented as of this encounter
--- OUTSIDE RECORDS SUMMARY | 2024-02-03 13:05 | XMS_ITS | Encounter Summary ---
Author Organization [facility] Address [address] [place] [address] Care Team Providers Care Accreditation Manager Name Role Phone Shital Brooke HOGSHEAD DUMPER Primary Care Provider [phone] Reason for Visit * Reason Onset Date Comments Other 06/21/2019 Encounter Details Date Type Department Care Team (Late st Contact Info) Description 06/21/2019 Telephone [facility] Ophthalmology - Main [place] [address] [place] [address] Jayden Roger MD [address] [place] [address] [address] [place] [address] Other Social History Tobacco Use Types Packs/Day Years Used Date Smoking Tobacco: Every Day Cigarettes Smokeless Tobacco: Never Alcohol Use Standard Drinks/Week Comments Yes 1 (1 standard drink = 0.6 oz pur e alcohol) Comments Unknown Sex and Gender Information Value Date Recorded Sex Assigned at Not on file Legal Sex Female 17:45 EST Gender Identity Female 02/27/2020 19:23 EST Sexual Orientation Not on file documented as of this encounter Miscellaneous Notes * Telephone Encounter - Corinne Strickland - 06/22/2019 1611 EDT Pt having should [...] on filedocumented in this encounter Care Teams Accreditation Manager Relationship Specialty Start Date End Date Shital Brooke NP [address] [place] [place] [address] PCP - General 02/26/16 02/26/20 documented as of this encounter
--- OUTSIDE RECORDS SUMMARY | 2024-02-03 13:05 | XMS_ITS | Encounter Summary ---
Author Organization [facility] Address [facility] [place] [address] Care Team Providers Care Mandolin Repair Person Name Role Phone Braydon Casillas APRN Primary Care Provider [phone] Encounter Details Date Type Department Care Team (Latest Contact Info) Description 06/26/2015 - 06/26/2015 11:59 PM EDT Hospital Encounter Radiology Library at [facility] [place] [place] [address] Leonardo Burris APRN Discharge Disposition: Home Social [...] DX Knee (06/26/2015 12:00 AM EDT) Narrative [facility] - 12/05/2017 8:23 AM EDT This exam is for storage only and is auto-finalizing. Leonardo Burris APRN IMG FILM LIBRARY ORDERABLES [facility] [place], [place] documented in this encounter Visit Diagnoses Not on filedocumented in this encounter Care Teams Mandolin Repair Person Relationship Specialty Start Date End Date Braydon Casillas APRN PCP - General 08/15/12 11/09/15 documented as of this encounter
--- OUTSIDE RECORDS SUMMARY | 2024-02-03 13:05 | XMS_ITS | Encounter Summary ---
Author Organization [facility] Address [address] [place] [address] Care Team Providers Care Home Planning Consultant Salesperson Name Role Phone Caleb Ballard CELINE Primary Care Provider [phone] Reason for Visit * Reason Comments Follow-up Encounter Details Date Type Department Care Team (Late st Contact Info) Description 03/26/2020 9:45 EST Telemedicine [facility] Ophthalmology - Main [place] [address] [place] [address] Jayden Roger MD [address] [place] [address] [address] [place] [address] Visual field defect (Primary Dx) Social History [...] inquired about patient assistance for transportation to [facility] documented in this encounter Progress Notes * Jayden Roger MD - 03/26/2020 0945 EST DIVISION OF OPHTHALMOLOGY [facility] NEURO-OPHTHALMOLOGY TELEMEDICINE FOLLOW-UP 03/26/2020 Due to the priorities of social distancing and minimization of infectious exposure during the COVID-19 pandemic, this encounter was completed via telephone-based visit, with on-site follow up at a later date, as deemed necessary. The clinical encounter was conducted virtually using HIPAA-compliant videoconferencing technology, Drivy. At the time of the encounter, the patient was located at their [place] residence of record, please refer to the EMR for address details. Jayden Roger MD, the provider, was located at home [facility] . Verbal informed consent for telemedicine services [...] and as such when seen by me onJan 15, in the context of persisting symptoms, [...] concerns. Sincerely, Jayden Roger MD Diplomate, the [place] [employer]rology dip tanker Department of Ophthalmology documented in this encounter Plan of Treatment Not on file documented as of this encounter Visit Diagnoses Diagnosis Visual field defect- Primary Visual field defect, unspecified documented in this encounter Care Teams Home Planning Consultant Salesperson Relationship Specialty Start Date End Date Caleb Ballard RPA [address] [place] [address] PCP - General 02/27/20 documented as of this encounter
--- OUTSIDE RECORDS SUMMARY | 2024-02-03 13:05 | XMS_ITS | Encounter Summary ---
Author Organization [facility] Address [address] [place] [address] Care Team Providers Care Genetics Teacher Name Role Phone Naty Ballardrick Augustine BERGER Primary Care Provider [phone] Reason for Visit * Reason Onset Date Comments Appointment Related 04/30/2020 cancellation for today 04/30 Encounter Details Date Type Department Care Team (Late st Contact Info) Description 04/30/2020 Telephone [facility] Ophthalmology - [address] [address] Yoni Vega MD [address] [facility], [address] [place] [address] Appointment Related (cancellation for today [...] on filedocumented in this encounter Care Teams Genetics Teacher Relationship Specialty Start Date End Date Caleb Ballard RPA [address] [place] [address] PCP - General 02/27/20 documented as of this encounter
--- OUTSIDE RECORDS SUMMARY | 2024-02-03 13:05 | XMS_ITS | Encounter Summary ---
Author Organization [facility] Address [facility] [place] [address] Care Team Providers Care Consumer Product Advisor Name Role Phone Braydon Casillas APRN Primary Care Provider [phone] Encounter Details Date Type Department Care Team (Latest Contact Info) Description 09/16/2015 - 09/16/2015 11:59 PM EDT Hospital Encounter Radiology Library at [facility] [place] [address] Leonardo Burris APRN Discharge Disposition: Home Social [...] DX Knee (09/16/2015 12:00 AM EDT) Narrative [facility] - 12/05/2017 8:35 AM EDT This exam is for storage only and is auto-finalizing. Leonardo Burris APRN IMG FILM LIBRARY ORDERABLES [facility] [place], [place] documented in this encounter Visit Diagnoses Not on filedocumented in this encounter Care Teams Consumer Product Advisor Relationship Specialty Start Date End Date Braydon Casillas APRN PCP - General 08/15/12 11/09/15 documented as of this encounter
--- OUTSIDE RECORDS SUMMARY | 2024-02-03 13:05 | XMS_ITS | Encounter Summary ---
Author Organization [facility] Address [address] [place] [address] Care Team Providers Care Greaser Helper Name Role Phone Shital Brooke PRINCIPAL CLERK TYPIST Primary Care Provider [phone] Reason for Visit * Reason Onset Date Comments Other 04/26/2016 Pt is at the [facility] ER and the Nurse has questions about Pain med, and to touch base please call Encounter Details Date Type Department Care Team (Late st Contact Info) Description 04/26/2016 Telephone [facility] General Surgery - [address] [address] Maegan Horton MD [address] [place] [phone] Other ( Pt is at the [place] ER and the Nurse has questions about [...] 1247 EDT Spoke with nurse Ambreen in [place], [place] ER. She has questions regarding care [...] on filedocumented in this encounter Care Teams Greaser Helper Relationship Specialty Start Date End Date Shital Brooke NP [address] [place] [address] PCP - General 02/26/16 02/26/20 documented as of this encounter
--- OUTSIDE RECORDS SUMMARY | 2024-02-03 13:05 | XMS_ITS | Encounter Summary ---
Author Organization [facility] Address [address] [place] [address] Care Team Providers Care Staffing Analyst Name Role Phone Shital Brooke WRAPPING CLERK Primary Care Provider [phone] Reason for Visit * Reason Onset Date Comments Abdominal Pain 05/24/2016 S/P Primary repa ir of umbilical hernia ON 04/14/16. Patient went to [facility] in [place] for pain, call patient for more details. Encounter Details Date Type Department Care Team (Late st Contact Info) Description 05/24/2016 Telephone [facility] General Surgery - Main [place] [address] [place] [address] Maegan Horton MD [address] [place] [phone] Abdominal Pain (S/P Primary repair of umbilical hernia ON 04/14/16. Patient went to [facility] in [place] for pain, call patient for more details.) [...] she has gone to the ER in [place] a couple of times in the past [...] on filedocumented in this encounter Care Teams Staffing Analyst Relationship Specialty Start Date End Date Shital [place] [address] [place] [address] PCP - General 02/26/16 02/26/20 documented as of this encounter
--- OUTSIDE RECORDS SUMMARY | 2024-02-03 13:05 | XMS_ITS | Encounter Summary ---
Author Organization [facility] Address [address] [place] [address] Care Team Providers Care Filtrose Crusher Name Role Phone Caleb Ballard RPA Primary Care Provider [phone] Encounter Details Date Type Department Care Team (Late st Contact Info) Description 05/30/2021 Lab Requisition [facility] Pathology & Laboratory Medicine - [facility] [address] [place] [address] Outr Resulting Lab, Provider Social History Tobacco [...] Syphilis Serology Negative Negative 06/01/2021 9:41 EDT [facility] Blood VENOUS BLOOD / Unknown 05/29/2021 10:14 EDT 05/30/2021 22:05 EDT us Provider Outr Resulting Lab IMMUNOLOGY AND SEROL OGY ORDERABLES Final Result Performing Organization Address City/[facility]/ZIP Co de Phone Number [facility] [address] [place] [address] * HEPATITIS C AB W REFLEX TO HCV RNA BY PCR (05/29/2021 10:14 EDT) Hep C Antibody Negative Negative 06/01/2021 10:07 EDT [facility] Blood VENOUS BLOOD / Unknown 05/29/2021 10:14 EDT 05/30/2021 22:05 EDT us Provider Outr Resulting Lab CHEMISTRY & BLOOD GA S ORDERABLES Final Result Performing Organization Address City/[facility]/ZIP Co de Phone Number [facility] [address] [place] [address] documented in this encounter Visit Diagnoses Not on filedocumented in this encounter Care Teams Filtrose Crusher Relationship Specialty Start Date End Date Caleb Ballard RPA [address] [place] [address] PCP - General 02/27/20 documented as of this encounter
--- OUTSIDE RECORDS SUMMARY | 2024-02-03 13:05 | XMS_ITS | Encounter Summary ---
Author Organization [facility] Address [address] [place] [address] Care Team Providers Care Draughtsman Name Role Phone Shital Brooke BOTANY PROFESSOR Primary Care Provider [phone] Reason for Visit * Reason Onset Date Comments Other 05/24/2016 Wants to discuss patient as this is her 3rd trip to ER asking for pain meds. Please call Encounter Details Date Type Department Care Team (Late st Contact Info) Description 05/24/2016 Telephone [facility] General Surgery - Main [address] [address] Maegan Horton MD [address] [place] [address] Other (Wants to discuss patient as [...] Unable to reach. Electronically signed by Ekaterina Hunter RN CBN documented in this encounter Plan of Treatment Not on file documented as of this encounter Visit Diagnoses Not on filedocumented in this encounter Care Teams Draughtsman Relationship Specialty Start Date End Date Shital Brooke NP [address] [place] [address] PCP - General 02/26/16 02/26/20 documented as of this encounter
--- OUTSIDE RECORDS SUMMARY | 2024-02-03 13:05 | XMS_ITS | Encounter Summary ---
Author Organization [facility] Address [address] [place] [address] Care Team Providers Care Head Of Quality Name Role Phone Caleb Ballard RPA Primary Care Provider [phone] Encounter Details Date Type Department Care Team (Late st Contact Info) Description 05/30/2021 Lab Requisition [facility] Pathology & Laboratory Medicine - [facility] [address] [place], [place] [id number] Outr Resulting Lab, Provider Social History Tobacco [...] gonorrhoeae Result Negative Negative 05/31/2021 13:10 EDT [facility] Chlamydia trachomatis Result Negative Negative 05/31/2021 13:10 EDT [facility] Urine URINE / Unknown 05/29/2021 1 0:14 EDT 05/30/2021 22:25 EDT Narrative [facility] - 05/31/2021 13:10 EDT A first catch urine specimen is acceptable for detection of Gonorrhea and Chlamydia, but might detect up to 10% fewer infections when compared with vaginal and endocervical swab samples. us Provider Outr Resulting Lab MICROBIOLOGY - GENER AL ORDERABLES Final Result [facility] [address] [place] [address] documented in this encounter Visit Diagnoses Not on filedocumented in this encounter Care Teams Head Of Quality Relationship Specialty Start Date End Date Caleb Ballard RPA [address] [place] [address] PCP - General 02/27/20 documented as of this encounter
--- OUTSIDE RECORDS SUMMARY | 2024-02-03 13:05 | XMS_ITS | Encounter Summary ---
Author Organization [facility] Address [facility] [place] [address] Care Team Providers Care Blast Hole Driller Name Role Phone Braydon Casillas APRN Primary Care Provider [phone] Encounter Details Date Type Department Care Team (Latest Contact Info) Description 07/05/2015 - 07/05/2015 11:59 PM EDT Hospital Encounter Radiology Library [place] [address] Leonardo Burris APRN Discharge Disposition: Home Social [...] DX Knee (07/05/2015 12:00 AM EDT) Narrative [facility] - 12/05/2017 8:26 AM EDT This exam is for storage only and is auto-finalizing. Leonardo Burris APRN IMG FILM LIBRARY ORDERABLES [place], [place] documented in this encounter Visit Diagnoses Not on filedocumented in this encounter Care Teams Blast Hole Driller Relationship Specialty Start Date End Date Braydon Casillas APRN PCP - General 08/15/12 11/09/15 documented as of this encounter
--- OUTSIDE RECORDS SUMMARY | 2024-02-03 13:05 | XMS_ITS | Encounter Summary ---
Author Organization [facility] Address [address] [place] [address] Care Team Providers Care Incident Analyst Name Role Phone Caleb Ballard CELINE Primary Care Provider [phone] Reason for Visit * Reason Comments Eye Problem Encounter Details Date Type Department Care Team (Late st Contact Info) Description 04/16/2020 9:15 EST Office Visit [facility] Ophthalmology - [address] [id number] Yoni Vega MD [address] [facility], Level 5 [place] [address] Social History Tobacco Use Types [...] - LEFT EYE (04/16/2020 12:50 EST) Narrative [facility] POINT OF CARE - 04/16/2020 12:50 EST [...] or tears based on bscan done today us Yoni Vega MD OPHTH ULTRASOUND Final Result [facility] POINT OF CARE documented in this encounter [...] no holes, tears or lesions Care Teams Incident Analyst Relationship Specialty Start Date End Date Caleb Ballard, CELINE [address] [place] [address] PCP - General 02/27/20 documented as of this encounter
--- OUTSIDE RECORDS SUMMARY | 2024-02-03 13:05 | XMS_ITS | Encounter Summary ---
Author Organization [facility] Address [facility] [place] [address] Care Team Providers Care Cow Tester Name Role Phone Regina Correa MD Primary Care Provider [phone] Encounter Details Date Type Department Care Team (Latest Contact Info) Description 04/04/2012 - 04/04/2012 11:59 PM EST Hospital Encounter Radiology Library at [facility] [place] [address] Leonardo Burris APRN Discharge Disposition: Home Social [...] DX Spine (04/04/2012 12:00 AM EST) Narrative RAD - 12/05/2017 8:19 AM EDT This exam is for storage only and is auto-finalizing. Leonardo Burris APRN IMG FILM LIBRARY ORDERABLES [place], [place] documented in this encounter Visit Diagnoses Not on filedocumented in this encounter Care Teams Cow Tester Relationship Specialty Start Date End Date Regina Correa MD [address] [place] [address] PCP - General 01/06/10 08/14/12 documented as of this encounter
--- OUTSIDE RECORDS SUMMARY | 2024-02-03 13:05 | XMS_ITS | Encounter Summary ---
Author Organization [facility] Address [address] [place] [address] Care Team Providers Care Community Relations Liaison Name Role Phone Caleb Ballard RPA Primary Care Provider [phone] Encounter Details Date Type Department Care Team (Latest Contact Info) Description 02/09/2021 Lab Requisition [facility] Pathology & Laboratory Medicine - [facility] [address] [place] [address] Caleb Ballard, RPA [address] [place] [address] Encounter for general adult medical examination [...] Risk types, PCR Negative Negative 02/19/2021 15:15 EST [facility] Comment:No E6 or E7 mRNA is detected from HPV types 16,18,31,33,35,39,45,51,52,56,58,59,66, and 68 by oil sprayer mediated amplification. Papanicolaou smear specimen (specimen) CERVIX UTERI STRUCTURE / Unknown 02/04/2021 14:24 EST 02/17/2021 11:33 EST Caleb Ballard [facility] MICROBIOLOGY - GENERAL OR DERABLES Final Result [facility] [address] [place] [address] * PAP TEST (02/04/2021 14:24 EST) Specimens A. Cervix and/or Endocervix , ThinPrep Imaging System with Manual Evaluation 02/19/2021 15:15 EST [facility] Specimen Adequacy Satisfactory for Evaluation - transformation zone component present 02/19/2021 15:15 EST [facility] General Categorization Negative for intraepithelial lesion or malignancy 02/19/2021 15:15 EST [facility] Attestation . 02/19/2021 15:15 [facility] at 1515 Clinical History See below 02/19/19 15:15 EST [facility] HPV The result for the Human Papillomavirus (HPV) Detection-High Risk Types is Negative. No E6 or E7 mRNA is detected from HPV types 16,18,31,33,35,39 ,45,51,52,56,58,5 9,66, and 68 by oil sprayer mediated amplification.Eugenia ting was performed on specimen [id number] and was resulted on 02/19/2021 0708 EST by CHERIE, LAB INSTRUMENT RESULTS IN 02/19/2021 15:15 EST [facility] Performing Lab [facility] 02/19/2021 15:15 EST [facility] Scanned Images 02/19/2021 15:15 EST [facility] Papanicolaou smear specimen (specimen) CERVIX UTERI STRUCTURE / Unknown 02/04/2021 14:24 EST 02/09/2021 15:20 EST us Caleb Ballard RPA PATHOLOGY ORDERABLES Madeline l Result [facility] [address] [place] [address] documented in this encounter Visit Diagnoses Diagnosis Encounter for general adult medical examination without abnormal findings Unspecified general medical examination Encounter for screening for malignant neoplasm of cervix Screening for malignant neoplasm of the cervix Encounter for screening for human papillomavirus (HPV) Special screening examination for human papillomavirus (HPV) documented in this encounter Care Teams Community Relations Liaison Relationship Specialty Start Date End Date Caleb Ballard RPA [address] [place] [address] PCP - General 02/27/20 documented as of this encounter
--- OUTSIDE RECORDS SUMMARY | 2024-02-03 13:05 | XMS_ITS | Encounter Summary ---
Author Organization [facility] Address [address] [place] [address] Care Team Providers Care Signal Tower Director Name Role Phone Caleb Ballard RPA Primary Care Provider [phone] Reason for Referral * Office Procedure (Routine) - Specialty Report Received Specialty Diagnoses / Procedures Referred By Dayan parker Referred To Contact Neurology Diagnoses Visual field defect Procedures VISUAL EVOKED POTENTIAL (VEP) Jayden [place] MD Phone: tel: fax: [facility] Neurophysiology [facility] (Caleb [address]) [address] [place] [address] Phone: tel: fax: Referral ID Status Reason Start Date Expiration Date V isits Requested Visits Authorized [id number] Specialty Report Received 02/29/2020 1 1 * Office Procedure (Routine) - Specialty Report Received Specialty Diagnoses / Procedures Referred By Dayan parker Referred To Contact Neurology Diagnoses Visual field defect Procedures ELECTRORETINOGRAM (ERG) Jayden [place] MD Phone: tel: fax: [facility] Neurophysiology [facility] (Caleb [address]) [address] [place] [address] Phone: tel: fax: Referral ID Status Reason Start Date Expiration Date V isits Requested Visits Authorized [id number] Specialty Report Received 02/29/2020 1 1 Reason for Visit * Reason Comments Referral Request Eye Problem Encounter Details Date Type Department Care Team (Late st Contact Info) Description 02/29/2020 10:00 EST Office Visit [facility] Ophthalmology - Main [address] [phone] Jayden [place] MD 1 [facility], Level 2 [place] [address] Social History Tobacco Use Types Packs/Day Years [...] 02/29/2020 1000 EST DIVISION OF OPHTHALMOLOGY [facility] NEURO-OPHTHALMOLOGY FOLLOW-UP 02/29/2020 Ms. Sprague returned for [...] has tried artificial tears she reports that [id number] medications provide minimal relief. A trial of [...] at least stable when compared to studies [id number] and the patient has previously had negative neuroimaging. Please do not hesitate to contact me with any further questions or concerns. Sincerely, Jayden [place] MD Diplomate, the [place] [employer] manager math Department of Ophthalmology documented in this encounter [...] EVOKED POTENTIAL (VEP) (03/20/2020 12:30 EST) Narrative [facility] POINT OF CARE - 03/20/2020 12:30 EST [...] disturbance Luis Aranda MD, PhD ABPN Neurology [facility] Clinical Neurophysiology Jayden [place] MD NEUROLOGY ORDERABLES Fin al Result [facility] POINT OF CARE * ELECTRORETINOGRAM (ERG) (03/20/2020 12:30 EST) Narrative [facility] POINT OF CARE - 03/20/2020 12:30 EST [...] MD, PhD ABPN Neurology [facility] Clinical Neurophysiology us Jayden [place] MD NEUROLOGY ORDERABLES Fin al Result [facility] POINT OF CARE documented in this encounter Visit Diagnoses Diagnosis Visual field defect- Primary Visual field defect, unspecified Visual field defect Visual field defect, unspecified Decreased peripheral vision of left eye Pain of left eye Pain in or around eye documented in this encounter Historical Medications * This list may reflect changes made after this encounter. linaCLOtide (LINZESS) 145 mcg capsule Take 145 [...] quiet mod, quiet Wearing Rx Sphere Cylinder [place] Right eye -3.75 +1.75 129 Left eye -2.25 +0.50 089 Age: 1yr Type: SVL - distanc Care Teams Signal Tower Director Relationship Specialty Start Date End Date Caleb Ballard RPA [address] [place] [address] PCP - General 02/27/20 documented as of this encounter
--- OUTSIDE RECORDS SUMMARY | 2024-02-03 13:05 | XMS_ITS | Encounter Summary ---
Author Organization [facility] Address [address] [place] [address] Care Team Providers Care Fabrication And Assembly Supervisor Name Role Phone Naty Ballardrick Augustine BERGER Primary Care Provider [phone] Reason for Visit * Reason Onset Date Comments Appointment Related 03/19/2020 Encounter Details Date Type Department Care Team (Late st Contact Info) Description 03/19/2020 Telephone [facility] Neurophysiology - [facility] (Caleb [facility]) [address] [place] [address] Norberto Daly MD Appointment Related Social History [...] on filedocumented in this encounter Care Teams Fabrication And Assembly Supervisor Relationship Specialty Start Date End Date Caleb Ballard RPA [address] [place] [address] PCP - General 02/27/20 documented as of this encounter
--- OUTSIDE RECORDS SUMMARY | 2024-02-03 13:05 | XMS_ITS | Encounter Summary ---
Author Organization [facility] Address [address] [place] [address] Care Team Providers Care Batter Scaler Name Role Phone Edwardo Shital BAKER Primary Care Provider [phone] Caleb Ballard RPA Primary Care Provider [phone] Encounter Details Date Type Department Care Team (Late st Contact Info) Description 02/18/2019 Lab Requisition [facility] Pathology & Laboratory Medicine - [address] [address] Unknown, Provider, Social History Tobacco Use Types [...] gonorrhoeae Result Negative Negative 02/19/2019 13:10 EST [facility] Chlamydia trachomatis Result Negative Negative 02/19/2019 13:10 EST [facility] Swab SPECIMEN FROM UTERINE CERVIX / Unknown 02/17/2019 11:05 EST 02/18/2019 16:17 EST us Provider Unknown MICROBIOLOGY - GENERAL ORDER ROSENDO Final Result [facility] [address] [place] [address] documented in this encounter Visit Diagnoses Not on filedocumented in this encounter Care Teams Batter Scaler Relationship Specialty Start Date End Date Shital Brooke NP [address] [place], [place] [phone] PCP - General 02/26/16 02/26/20 Caleb Ballard RPA [address] [phone] PCP - General 02/27/20 documented as of this encounter
--- OUTSIDE RECORDS SUMMARY | 2024-02-03 13:05 | XMS_ITS | Referral Summary ---
Author Organization [facility] Address [address] [place] [address] Care Team Providers Care Sand Worker Name Role Phone ElioCaleb Augustine [facility] Primary Care Provider [phone] Allergies No known active allergies Medications amitriptyline (ELAVIL) 100 mg tablet Take 100 mg by mouth at bedtime as needed for Sleep. Reported on 03/08/2016 Active meclizine (ANTIVERT) 25 mg tabletIndicatio ns:vertigo Take 25 mg by mouth 3 times [...] Date Diagnosed Date Periumbilical abdominal pain 05/25/2016 Overview (05/25/2016): Chronic, Has been referred to GI Pain [...] 05/25/2016 1139 EDT Respiratory Rate 16 05/25/2016 191 EDT Oxygen Saturation 98% 05/25/2016 1916 EDT [...] C Antibody Negative Negative 06/01/2021 10:07 EDT [facility] Blood VENOUS BLOOD / Unknown 05/29/2021 10:14 EDT 05/30/2021 22:05 EDT us Provider Outr Resulting Lab CHEMISTRY & BLOOD GA S ORDERABLES Final Result [facility] [address] [place] [address] from Last 3 Months or Most Recently Relevant to Health Maintenance Insurance [address] [place] [address] [place] [address] [place] [address] [address] [place] [address] [address] [place] [address] Care Teams Sand Worker Relationship Specialty Start Date End Date Caleb Ballard RPA [address] [facility] [address] [place] [address] PCP - General 02/27/20
--- OUTSIDE RECORDS SUMMARY | 2024-02-03 13:05 | XMS_ITS | Encounter Summary ---
Author Organization [facility] Address [address] [place] [address] Care Team Providers Care Mold Blower Name Role Phone Naty Ballardrick Augustine BERGER Primary Care Provider [phone] Reason for Visit * Reason Onset Date Comments Follow-up 04/01/2020 Encounter Details Date Type Department Care Team (Late st Contact Info) Description 04/01/2020 Telephone [facility] Ophthalmology - Main [address] [address] Jayden [place] MD [address] [place] [address] [address] [place] [address] Follow-up Social History Tobacco Use Types Packs/Day [...] on filedocumented in this encounter Care Teams Mold Blower Relationship Specialty Start Date End Date Caleb Ballard RPA [address] [place] [address] PCP - General 02/27/20 documented as of this encounter
--- OUTSIDE RECORDS SUMMARY | 2024-02-03 13:05 | XMS_ITS | Encounter Summary ---
Author Organization [facility] Address [address] [place] [address] Care Team Providers Care Manager Sourcing Name Role Phone EdwardoNiaprashant BAKER Primary Care Provider [phone] Caleb Ballard RPA Primary Care Provider [phone] Encounter Details Date Type Department Care Team (Late st Contact Info) Description 03/02/2019 Lab Requisition [facility] Pathology & Laboratory Medicine - [address] [address] Betty Treviño MD [address] [place] [address] Periumbilical pain Social History Tobacco Use Types [...] adipose tissue with focal fibrosis. 03/06/2019 5:52 [facility] at 0552 Clinical History Periumbilical mesh Excised umbilical mesh 03/06/2019 5:52 EST [facility] Attestation There was significant resident/fellow involvement in the diagnostic evaluation of this case. By the signature below, the attending physician certifies that they have personally conducted a gross and/or microscopic examination of the described specimens and rendered or confirmed the above diagnosis. 03/06/2019 5:52 [facility] at 0552 Gross Description A. [...] small amount of attached green suture material. Master Control Supervisor sections of the fibrofatty tissue are submitted in A1. Nilsa Nieto 03/02/2019 10:51 03/06/2019 5:52 EST [facility] Resident/Luciano w: Patti Walsh MD 03/06/2019 5:52 EST [facility] Scanned Images 03/06/2019 5:52 [facility] Tissue FOREIGN BODY / Unknown 03/01/2019 8:30 EST 03/02/2019 8:48 EST us Betty Treviño MD PATHOLOGY ORDERABLES Final Resul t [facility] [address] [place] [address] documented in this encounter Visit Diagnoses Diagnosis Periumbilical pain Abdominal pain, periumbilic documented in this encounter Care Teams Manager Sourcing Relationship Specialty Start Date End Date Shital Brooke NP [address] [place] [address] PCP - General 02/26/16 02/26/20 Caleb Ballard RPA [address] [facility] [address] [place] [address] PCP - General 02/27/20 documented as of this encounter
--- OUTSIDE RECORDS SUMMARY | 2024-02-03 13:05 | XMS_ITS | Encounter Summary ---
Author Organization [facility] Address [address] [place] [address] Care Team Providers Care Coper Hand Name Role Phone MerryShital cerda SAMUEL Primary Care Provider [phone] Caleb Ballard RPA Primary Care Provider [phone] Reason for Visit * Reason Onset Date Comments Post-op Problem 04/26/2016 S/P Umbilical he rnia on 04/14/16. Patient c/o constant abdominal pain, unable to sleep. Has no pain medicaiton. Encounter Details Date Type Department Care Team (Late st Contact Info) Description 04/26/2016 Telephone [facility] General Surgery - Main [place] [address] [place] [address] Maegan Horton MD [address] [place] [address] Post-op Problem (S/P Umbilical hernia on [...] on filedocumented in this encounter Care Teams Coper Hand Relationship Specialty Start Date End Date Shital Brooke NP [address] [place] [address] PCP - General 02/26/16 02/26/20 Caleb Ballard RPA [address] [address] PCP - General 02/27/20 documented as of this encounter
--- OUTSIDE RECORDS SUMMARY | 2024-02-03 13:05 | XMS_ITS | Encounter Summary ---
Author Organization [facility] Address [address] [place] [address] Care Team Providers Care Coal Screener Name Role Phone EloisedraganShital plunkett SAMUEL Primary Care Provider [phone] Reason for Visit * Reason Comments Post-OP Follow Up POV Umb Hernia f/u E D 04/26 * Follow Up (Routine) - Closed Specialty Diagnoses / Procedures Referred By Dayan t Referred To Contact General Surgery Diagnoses Umbilical hernia without obstruction and without gangrene Mariela Lou MD Phone: tel: fax: Referral ID Status Reason Start Date Expiration Date V isits Requested Visits Authorized [id number] Closed Specialty Services Required 2016 1 1 Encounter Details Date Type Department Care Team (Late st Contact Info) Description 04/30/2016 13:00 EDT Office Visit [facility] General Surgery - Main [place] [address] [place], [place] [address] Maegan Horton MD [address] [place] [address] S/P umbilical hernia repair, follow-up exam [...] may reflect changes made after this encounter. traMADol (ULTRAM) 50 mg tablet Take 50 mg by mouth every 6 hours. Reported on 05/25/2016 added in this encounter Care Teams Coal Screener Relationship Specialty Start Date End Date Shital [place] [address] [place] [address] PCP - General 02/26/16 02/26/20 documented as of this encounter
--- OUTSIDE RECORDS SUMMARY | 2024-02-03 13:05 | XMS_ITS | Encounter Summary ---
Author Organization [facility] Address [address] [place] [address] Care Team Providers Care Relief Worker Name Role Phone Shital Brooke GIS INSTRUCTOR Primary Care Provider [phone] Reason for Visit * Reason Onset Date Comments Provider Referred 02/21/2020 Encounter Details Date Type Department Care Team (Late st Contact Info) Description 02/21/2020 Telephone [facility] Ophthalmology - Main [place] [address] [place] [address] Jayden Roger MD [address] [place] [address] [address] [place] [address] Provider Referred Social History Tobacco Use Types [...] RN - 02/22/[address] Roger okay to see next week. Dr. Lizarraga is out. Gladis to call and schedule. Rommel Gordillo RN 02/22/2020 8:39 * Telephone Encounter - Rommel Ashraf RN - 02/21/[address] Lizarraga. He would like Dr Roger to review. 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 Will fax exam notes to [facility]. documented in this encounter Plan of Treatment Not on file documented as of this encounter Visit Diagnoses Not on filedocumented in this encounter Care Teams Relief Worker Relationship Specialty Start Date End Date [place] [address] PCP - General 02/26/16 02/26/20 documented as of this encounter
--- OUTSIDE RECORDS SUMMARY | 2024-02-03 13:05 | XMS_ITS | Encounter Summary ---
Author Organization [facility] Address [address] [place] [address] Care Team Providers Care Business Administrator Name Role Phone Shital Brooke NP Primary Care Provider [phone] Caleb Ballard RPA Primary Care Provider [phone] Encounter Details Date Type Department Care Team (Late st Contact Info) Description 07/12/2019 Lab Requisition [facility] Pathology & Laboratory Medicine - [facility] [address] [address], [place] [id number] Outr Resulting Lab, Provider Social History Tobacco [...] gonorrhoeae Result Negative Negative 07/16/2019 13:13 EDT [facility] Chlamydia trachomatis Result Negative Negative 07/16/2019 13:13 EDT [facility] Swab ENTIRE WALL OF CERVIX / Unknown 07/12/2019 9:18 EDT 07/12/2019 17:01 EDT us Provider Outr Resulting Lab MICROBIOLOGY - GENER AL ORDERABLES Final Result [facility] [address] [place] [address] documented in this encounter Visit Diagnoses Not on filedocumented in this encounter Care Teams Business Administrator Relationship Specialty Start Date End Date Shital Brooke NP [address] [place] [address] PCP - General 02/26/16 02/26/20 Caleb Ballard RPA [address] [address] PCP - General 02/27/20 documented as of this encounter
--- OUTSIDE RECORDS SUMMARY | 2024-02-03 13:05 | XMS_ITS | Encounter Summary ---
Author Organization [facility] Address [address] [place] [address] Care Team Providers Care Molybdenum Steamer Operator Name Role Phone Shital Brooke RN NEW GRADUATE Primary Care Provider [phone] Reason for Visit * Reason Onset Date Comments Other 05/25/2016 Patient called. Extremely uncomfortable, wants to know if she comes [facility] if they can help her. Please call Encounter Details Date Type Department Care Team (Late st Contact Info) Description 05/25/2016 Telephone [facility] General Surgery - [facility] [address] [place] [address] Maegan Horton MD [address] [place] [phone] Other (Patient called. Extremely uncomfortable, wants [...] of pain and she keeps going to [place] [facility] and they aren't doing anything.Wants to know if she should come to [facility] ER. I also asked if patient had an ultrasound to see if recurrent hernia, and patient couldn't recall. Advised patient to go to ER for evaluation. Patient agrees with plan. Electronically signed by Ekaterina Hunter RN CBN documented in this encounter Plan of Treatment Not on file documented as of this encounter Visit Diagnoses Not on filedocumented in this encounter Care Teams Molybdenum Steamer Operator Relationship Specialty Start Date End Date Shital Brooke NP [address] [place] [address] PCP - General 02/26/16 02/26/20 documented as of this encounter
--- OUTSIDE RECORDS SUMMARY | 2024-02-03 13:05 | XMS_ITS | Encounter Summary ---
Author Organization [facility] Address [address] [place] [address] Care Team Providers Care Distribution Center Manager Name Role Phone Shital Brooke OPTICAL GLASS SILVERER Primary Care Provider Encounter Details Date Type Department Care Team (Late st Contact Info) Description 12/28/2019 Results Only [facility] - [address] [place] [id number] Unknown, Provider, Social History Tobacco Use Types [...] (12/28/2019) 12/28/2019 12/31/2019 8:5 4 EST Narrative [facility] - 01/01/2020 15:01 EST ----- ------- Name: RAUL SPRAGUE ?: 76 ?Age/Sex: 39/F ?Unit#: [id number] ? Loc: LAB.POP ? Status: REG REF ?? Reg Date: 12/28/19 ? Pt.Phone Number: ? ----- ------- Specimen: [id number] ? STATUS: SOUT ?Spec Date:12/28/19 ? Physician Copies: ?NONE,NONE ? Tissues: A ?? Endoscopy specimen (DUODENAL BX) ? JAYLEN YOUSSEF ? B ?? Endoscopy specimen (SHALLOW GASTRIC ULCER BX) ?CANDICE FLANAGAN ?? CPT: 07928 ?? Units: ??2 ?FINAL DIAGNOSIS ? A. [...] dysplasia and malignancy. ----- ------- ?COMMENT ? [id number] ? GROSS DESCRIPTION ? Received in formalin [...] confirmed the above diagnosis. Test Performed by [facility], [address] [place] [id number] Physics Technician: Padma Strickland MD PHD ----- ------- us Provider Unknown PATHOLOGY ORDERABLES Final R esult [facility] [address] [place] [address] documented in this encounter Visit Diagnoses Not on filedocumented in this encounter Care Teams Distribution Center Manager Relationship Specialty Start Date End Date Shital Brooke NP [address] [facility], [place] [id number] PCP - General 02/26/16 02/26/20 documented as of this encounter
--- OUTSIDE RECORDS SUMMARY | 2024-02-03 13:05 | XMS_ITS | Encounter Summary ---
Author Organization [facility] Address [address] [place] [address] Care Team Providers Care Account Planner Name Role Phone Caleb Ballard RPA Primary Care Provider [phone] Encounter Details Date Type Department Care Team [...] on filedocumented in this encounter Care Teams Account Planner Relationship Specialty Start Date End Date Caleb Ballard RPA [address] [place], [place] [phone] PCP - General 02/27/20 documented as of this encounter
--- OUTSIDE RECORDS SUMMARY | 2024-02-03 13:05 | XMS_ITS | Encounter Summary ---
Author Organization [facility] Address [address] [place] [address] Care Team Providers Care Psychologist Experimental Name Role Phone Caleb Ballard RPA Primary Care Provider [phone] Encounter Details Date Type Department Care Team (Late st Contact Info) Description 12/15/2020 Lab Requisition [facility] Pathology & Laboratory Medicine - [facility] [address] [place], [place] [address] Outr Resulting Lab, Provider Social History Tobacco [...] Priority Date/Time Associated Diagnosis Comments ZZCOVID-19 TEST [facility] PCR Today 12/15/2020 9:32 EDT COVID-19 TESTING Routine 12/15/2020 9:32 EDT documented in this encounter Results * COVID-19 TEST [facility] PCR (12/15/2020 9:32 EDT) Swab ENTIRE NASOPHARYNX / Unknown 12/15/2020 9:32 EDT 12/16/2020 16:45 EDT us Provider Outr Resulting Lab MICROBIOLOGY - GENER AL ORDERABLES Final Result [facility] [address] [place] [address] * COVID-19 TESTING (12/15/2020 9:32 EDT) COVID-19 rt-PCR Result Negative Negative 12/17/2020 12:01 EDT [facility] Comment: This test has not [...] performed using the goldie SARS-CoV-2 assay ([employer] on the Goldie 6800 System Performing Lab Goldie 6800 [facility] 12/17/2020 12:01 EDT [facility] Swab 12/15/2020 9:32 EDT 12/16/2020 16:45 EDT us Provider Outr Resulting Lab MICROBIOLOGY - GENER AL ORDERABLES Final Result [facility] [address] [place] [address] documented in this encounter Visit Diagnoses Not on filedocumented in this encounter Care Teams Psychologist Experimental Relationship Specialty Start Date End Date Caleb Ballard RPA [address] [place] [address] PCP - General 02/27/20 documented as of this encounter
--- OUTSIDE RECORDS SUMMARY | 2024-02-03 13:05 | XMS_ITS | Encounter Summary ---
Author Organization [facility] Address [address] [place] [address] Care Team Providers Care Dairy Truck Driver Name Role Phone Shital Brooke MARKETING MGR Primary Care Provider [phone] Reason for Visit * Reason Comments Abdominal Pain Surgery 04/14/16 for u mbilical hernia. Increasing pain since surgery. Encounter Details Date Type Department Care Team (Late st Contact Info) Description 05/25/2016 11:32 EDT - 05/25/2016 19:17 EDT Emergency [facility] Emergency Department - [address] [id number] Laurel Reza PA-C [address] [place] [phone] Geronimo Sarmiento PA-C [address] [place] [phone] Abdi Vital MD [address] [place] [phone] Emergency, MD Iza Epigastric pain (Primary Dx) [...] - Weight 63.5 kg (140 lb) 05/25/2016 113 EDT Height 147.3 cm (4' 10) 05/25/2016 1139 EDT Body Mass Index 29.26 05/25/2016 1139 EDT documented in this encounter Discharge Diagnoses Diagnosis R10.33 Periumbilical pain-R10.33[ICD-10-CM] G89.29 Other chronic pain-G89.29[ICD-10-CM] R10.10 Upper abdominal pain, unspecified-R10.10[ICD-10-CM] F17.210 Nicotine dependence, cigarettes, uncomplicated-F17.210[ICD-10-CM] Z98.890 Other specified postprocedural states-Z98.890[ICD-10-CM] Z79.899 Other shelter (current) drug therapy-Z79.899[ICD-10-CM] documented in this encounter [...] sent through Care Everywhere. * ABDOMINAL PAIN (TUNISIAN) documented in this encounter Medications at Time of Discharge amitriptyline (ELAVIL) 100 mg tablet Take 100 mg by mouth at bedtime as needed for Sleep. Reported on 03/08/2016 dicyclomine (BENTYL) 10 mg capsule Take 1 Cap by mouth 4 times daily (before meals and at bedtime). 15 Cap 05/25/2016 lisinopril (PRINIVIL, ZESTRIL) 10 mg tablet Take 10 mg by mouth daily. meclizine (ANTIVERT) 25 mg tabletIndications :vertigo Take 25 mg by mouth 3 times daily as needed. oxyCODONE (ROXICODONE) 5 mg immediate release tablet Take 1-2 Tabs by mouth every 6 hours as needed for Pain. Daily Max: 40 mg 20 Tab 2016 traMADol (ULTRAM) 50 mg tablet Take 50 mg by mouth every 6 hours. Reported on 05/25/2016 documented as of this encounter Ordered Prescriptions Prescription Sig Dispense Quantity Refills Last Filled Start Date End Date dicyclomine (BENTYL) 10 mg capsule Take 1 Cap by mouth 4 times daily (before meals and at bedtime). 15 Cap 05/25/2016 documented in this encounter Discharge Disposition Disposition Code Departure Means Destination Home or Self Long Term documented in this encounter Consult Notes * Migel Rhodes MD - 05/25/2016 1534 EDT Emergency Department Surgical Consult Admit Date: 05/25/2016 Date of Service: 05/25/2016 Hospital day: LOS: 0 days Chief Complaint: Pain at prior Hernia Site HPI: (The history is obtained from the chart, providers, and the patient.) Ms. Ruby Sprague is a 36 y.o. female who presents to the [facility] ED with worsening abdominal pain for 3-4 weeks after having an umbilical hernia repaired by Dr. Horton on 04/14/16. The patient presented on 04/14 for an outpatient repair of her umbilical hernia. It was discovered while seeing her PCP for chronic upper abdominal pain for which she had been referred to GI at [facility] however has not seen. The repair was uncomplicated, without mesh, and she was discharged home from PACU on POD 0. On 04/21, she called the general surgery clinic and asked for more pain medications since the oxycodone she was prescribed made her nauseated; however, she was told she should no longer be needing painmeds and agreed with that. However, she presents to an [facility] ER on 04/26 requesting more pain medication [...] worsened, and she now presented to the [facility] ED. She states her pain has been [...] or exam. Migel Rhodes MD 16:32, 05/25/16 Cosigned by Christopher Shah MD at 05/26/2016 13:32 EDT documented in this encounter ED Notes * [...] pain medications. Shestates that she went to [facility] had recent ultrasound which was normal. She [...] Glucose Neg Final Bilirubin Neg Final Specific [place] >=1.030 Final Blood Neg Final pH 5.5 Final Urobilinogen 0.2 Final Nitrite Neg Final Leuk Esterase Neg Final Tech ID [id number] Final BASIC METABOLIC PANEL Sodium 142 Final Potassium 4.1 Final Chloride 109 Final CO2 23 Final BUN 13 Final Creatinine 0.72 Final GFR, Calculated 107 Final Calcium 9.3 Final Calculated Calcium 9.2 Final Glucose, Serum 79 Final Fasting? Unknown Final POCT TEST, [facility]ITE[facility] UPT Result Neg Final Tech ID [id number] Final Relevant Data Procedures Imaging Results CT [...] Lakshmi Crowe RN (triage nurse) at the [facility], who will relay the findings and recommendation [...] Lakshmi Crowe RN (triage nurse) at the [facility], who will relay the findings and recommendation [...] Lakshmi Crowe RN (triage nurse) at the [facility], who will relay the findings and recommendation [...] Carcamo discussed with Dr. Lei Winslow, senior vice president pharmacy. Preliminary result Narrative: PRELIMINARY RESIDENT REPORT PRELIMINARY [...] Carcamo discussed with Dr. Lei Winslow, senior vice president pharmacy. ED COURSE A medical screening exam was performed. Patient was seen by surgical team they recommended doing a CT chest to clear that there is no other surgical intervention needed. This was performed which was read as normal with no surgical complications. ASSESSMENT AND PLAN Final diagnoses: Epigastric pain ED Current Prescriptions Medication Dispense Auth. Provider dicyclomine (BENTYL) 10 mg capsule 15 Cap [place], TELLY Richey DISPOSITION: Discharged The patient's pain was managed to an adequate level weighing risk vs. benefit of further medications. Upon departure from the Emergency Department, the patient's pain was 5 on a zero to ten scale. Condition at departure from the Emergency Department: Good PCP: Shital Brooke [facility] 05/28/2016 22:04 No flowsheet data found. * Abdi Vital MD - 05/25/2016 6627 EDT I, Rama Prescott, am scribing for [...] and medical decision making. * Seble Delong, DAVID - 05/25/2016 0091 EDT Pt amb to bathroom for urine [...] Lakshmi Crowe, RN (triage nurse) at the [facility], who will relay the findings and recommendation [...] Lakshmi Crowe RN (triage nurse) at the [facility], who will relay the findings and recommendation for urology consult to Shital Obrien (PCP) on 05/26/2016 10:30 AM. I have personally reviewed the images and the above interpretation and agree with the findings. us Geronimo Sarmiento PA-C IMG CT ORDERABLES Final Resul t * (ABNORMAL) HEMAGRAM AND DIFFERENTIAL (05/25/2016 16:01 EDT) WBC 10.06 4.0 - 12.4 K/cmm 05/25/2016 16:31 [facility] RBC 4.99 3.86 - 5.04 M/cmm 05/25/2016 16:31 [facility] Hemoglobin 12.0 11.6 - 15.2 gm/dl 05/25/2016 16:31 [facility] HCT 37.4 34.9 - 44.4 % 05/25/2016 16:31 [facility] MCV 75(L) 81 - 98 fl 05/25/2016 16:31 [facility] MCH 24.0(L) 26.7 - 33.3 pg 05/25/2016 16:31 [facility] Hypochromia 1+ 05/25/2016 16:31 [facility] MCHC 32.1 32.1 - 35.9 gm/dl 05/25/2016 16:31 [facility] RDW-CV 18.6(H) 11.7 - 14.6 % 05/25/2016 16:31 [facility] RDW-SD 49.6 37.6 - 50.3 fl 05/25/2016 16:31 [facility] Anisocytosis 1+ 05/25/2016 16:31 [facility] PLT 406(H) 141 - 377 K/cmm 05/25/2016 16:31 [facility] MPV 10.7 9.5 - 12.7 fl 05/25/2016 16:31 [facility] % Neutrophils 61.2 % 05/25/2016 16:31 [facility] % Lymphocytes 27.2 % 05/25/2016 16:31 [facility] % Monocytes 8.4 % 05/25/2016 16:31 [facility] % Eosinophils 1.8 % 05/25/2016 16:31 [facility] % Basophils 0.9 % 05/25/2016 16:31 [facility] % Immature Grans 0.5 % 05/26/19 17 16:31 [facility] ABS Neutrophils 6.15 2.20 - 8.85 K/cmm 05/25/2016 16:31 [facility] ABS Lymphs 2.74 1.09 - 3.30 K/cmm 05/25/2016 16:31 [facility] ABS Monocytes 0.85(H) 0.1 - 0.8 K/cmm 05/25/2016 16:31 [facility] ABS Eosinophils 0.18 0.03 - 0.61 K/cmm 05/25/2016 16:31 [facility] ABS Basophils 0.09 0.01 - 0.11 K/cmm 05/25/2016 16:31 [facility] ABS Immature Grans 0.05 0 - 0.06 K/cmm 05/25/2016 16:31 T [facility] Type of Diff: Automated 05/25/2016 16:31 [facility] Blood specimen (specimen) BLOOD SPECIMEN / Unknown 05/25/2016 16:01 EDT 05/25/2016 16:17 EDT us Geronimo Sarmiento PA-C PACKAGES & DNA PROBE ORDERABL ES Final Result [facility] [address] [place] [address] * BASIC METABOLIC PANEL (05/25/2016 16:01 EDT) Sodium 142 136 - 145 mEq/L 05/25/2016 16:46 [facility] Potassium 4.1 3.5 - 5.0 mEq/L 05/25/2016 16:46 [facility] Chloride 109 96 - 110 mEq/L 05/25/2016 16:46 [facility] CO2 23 22 - 32 mEq/L 05/25/2016 16:46 [facility] BUN 13 10 - 26 mg/dl 05/25/2016 16:46 [facility] Creatinine 0.72 0.52 - 1.04 mg/dl 05/25/2016 16:46 [facility] GFR, Calculated 107 >60 ml/min/1.7 3m2 05/25/2016 16:46 [facility] Comment: eGFR calculated using CKD-EPI equation for non Americans. Multiply eGFR by 1.16 for Americans. Calcium 9.3 8.5 - 10.5 mg/dl 05/25/2016 16:46 [facility] Calculated Calcium 9.2 8.5 - 10.5 mg/dl 05/25/2016 16:46 [facility] Glucose, Serum 79 70 - 100 mg/dl 05/25/2016 16:46 [facility] Fasting? Unknown 05/25/2016 16:18 [facility] Blood specimen (specimen) BLOOD SPECIMEN / Unknown 05/25/2016 16:01 EDT 05/25/2016 16:17 EDT us Geronimo Sarmiento PA-C CHEMISTRY & BLOOD GAS ORDERAB LES Final Result Performing Organization Address [facility] Co de Phone Number [facility] [address] [place] [address] * POCT TEST, [facility] (05/25/2016 15:02 EDT) UPT Result Neg Neg 05/25/2016 15:20 EDT [facility] restaurant managing partner ID [id number] 05/25/2016 15:20 EDT [facility] Comment:Test performed at [facility] Department Urine specimen (specimen) URINE / Unknown 05/25/2016 15:02 EDT 05/25/2016 15:20 EDT us Laurel Reza PA-C POINT OF CARE TEST O RDERABLES Final Result Performing Organization Address City/[facility] Co de Phone Number [facility] [address] [place] [address] * (ABNORMAL) POCT URINE DIPSTICK (05/25/2016 15:00 EDT) Color YELLOW 05/25/2016 15:13 EDT [facility] Clarity, UA Clear 05/25/2016 15:13 EDT [facility] Glucose Neg Neg 05/25/2016 15:13 EDT [facility] Bilirubin Neg Neg 05/25/2016 15:13 T [facility] Ketones Trace(A) Neg 05/25/2016 15:13 T [facility] Specific [place] >=1.030 1.001 - 1.035 05/25/2016 15:13 EDT [facility] Blood Neg Neg 05/25/2016 15:13 T [facility] pH 5.5 4.6 - 8.0 05/25/2016 15:13 T [facility] Protein Trace(A) Neg 05/25/2016 15:13 EDT [facility] Urobilinogen 0.2 0.2 - 1.0 E.U./dl 05/25/2016 15:13 EDT [facility] Nitrite Neg Neg 05/25/2016 15:13 EDT [facility] Leuk Esterase Neg Neg 05/25/2016 15:13 EDT [facility] restaurant managing partner ID [id number] 05/25/2016 15:13 EDT [facility] Comment:Test performed at [facility] Department Urine specimen (specimen) URINE / Unknown 05/25/2016 15:00 EDT 05/25/2016 15:13 EDT us Laurel Reza PA-C POINT OF CARE TEST O RDERABLES Final Result [facility] [address] [place] [address] documented in this encounter Visit Diagnoses Diagnosis Epigastric pain- Primary Abdominal pain, epigastric Periumbilical abdominal pain Abdominal pain, periumbilic documented in this encounter Administered Medications Inactive Administered Medications - up to 3 most recent administrations Medication Order MAR Action Action Date Dose Rate Site ketOROLAC (TORADOL) injection 30 mg 30 mg, intravenous, NOW X1, 1 dose, On Tue05/25/16 at 1845, STAT Given 05/25/2016 18:36 EDT [...] STAT 1836 (Given - Provid er: Seble Delong RN) traMADol (ULTRAM) tablet 50 mg (COMPLETED) 50 mg, oral, NOW X1, 1 dose, On Tue05/25/16 at 1915, STAT 1916 (Given - Provid er: Seble Delong RN) documented in this encounter Orders Nursing Count Last Ordered Date First Orde red Date INSERT PERIPHERAL IV 1 05/25/2016 documented in this encounter Care Teams Dairy Truck Driver Relationship Specialty Start Date End Date Shital Brooke NP [address] [place] [address] PCP - General 02/26/16 02/26/20 documented as of this encounter
--- OUTSIDE RECORDS SUMMARY | 2024-02-03 13:05 | XMS_ITS | Encounter Summary ---
Author Organization [facility] Address [address] [place] [address] Care Team Providers Care Press Manager Name Role Phone Caleb Ballard RPA Primary Care Provider [phone] Reason for Referral * Office Procedure (Routine) - Specialty Report Received Specialty Diagnoses / Procedures Referred By Dayan parker Referred To Contact Neurology Diagnoses Visual field defect Procedures VISUAL EVOKED POTENTIAL (VEP) Jayden Roger MD Phone: tel: fax: [facility] Neurophysiology [facility] (Caleb [address]) [address] [place] [address] Phone: tel: fax: Referral ID Status Reason Start Date Expiration Date V isits Requested Visits Authorized [id number] Specialty Report Received 02/29/2020 1 1 * Office Procedure (Routine) - Specialty Report Received Specialty Diagnoses / Procedures Referred By Dayan parker Referred To Contact Neurology Diagnoses Visual field defect Procedures ELECTRORETINOGRAM (ERG) Jayden Roger MD Phone: tel: fax: [facility] Neurophysiology [facility] (Caleb 5) [address] [place] [address] Phone: tel: fax: Referral ID Status Reason Start Date Expiration Date V isits Requested Visits Authorized [id number] Specialty Report Received 02/29/2020 1 1 Reason for Visit * Office Procedure (Routine) - Specialty Report Received Specialty Diagnoses / Procedures Referred By Dayan parker Referred To Contact Neurology Diagnoses Visual field defect Procedures ELECTRORETINOGRAM (ERG) Jayden Roger MD Phone: tel: fax: [facility] Neurophysiology [facility] (Caleb 5) [address] [place] [address] Phone: tel: fax: Referral ID Status Reason Start Date Expiration Date V isits Requested Visits Authorized [id number] Specialty Report Received 02/29/2020 1 1 Encounter Details Date Type Department Care Team (Latest Contact Info) Description 03/20/2020 12:28 EST - 03/20/2020 23:59 EST Hospital Encounter [facility] Neurophysiology [facility] (Caleb 5) [address] [place] [address] Norberto Daly MD Visual field defect; Decreased [...] or scotopic state. Luis Aranda MD, PhD [facility] Neurology [facility] Clinical Neurophysiology Pattern Visual Evoked Potential Report [...] a chiasmatic disturbance Luis Aranda MD, PhD [facility] Neurology [facility] Clinical Neurophysiology documented in this encounter Plan of Treatment Not on file documented as of this encounter Procedures Procedure Name Priority Date/Time Associated Diagnosis Comments ELECTRORETINOGRAM (ERG) Routine 03/20/19 12:30 EST Visual field defect VISUAL EVOKED POTENTIAL (VEP) Routine 03/20/2020 12:30 EST Visual field defect documented in this encounter Results * VISUAL EVOKED POTENTIAL (VEP) (03/20/2020 12:30 EST) Narrative [facility] POINT OF CARE - 03/20/2020 12:30 [...] ABCN Clinical Neurophysiology Jayden Roger MD NEUROLOGY ORDERABLES Fin al Result [facility] POINT OF CARE * ELECTRORETINOGRAM (ERG) (03/20/2020 12:30 EST) Narrative [facility] POINT OF CARE - 03/20/2020 12:30 [...] ABCN Clinical Neurophysiology Jayden Roger MD NEUROLOGY ORDERABLES Fin al Result [facility] POINT OF CARE documented in this encounter Visit Diagnoses Diagnosis Visual field defect Visual field defect, unspecified Decreased peripheral vision of left eye Pain of left eye Pain in or around eye documented in this encounter Care Teams Press Manager Relationship Specialty Start Date End Date Caleb Ballard RPA [address] [place] [address] PCP - General 02/27/20 documented as of this encounter
--- OUTSIDE RECORDS SUMMARY | 2024-02-03 13:05 | XMS_ITS | Encounter Summary ---
Author Organization [facility] Address [address] [place] [address] Care Team Providers Care Window And Siding Craftsman Name Role Phone ElioCaleb Augustine BERGER Primary Care Provider [phone] Reason for Visit * Reason Onset Date Comments Results 03/21/2020 Encounter Details Date Type Department Care Team (Late st Contact Info) Description 03/21/2020 Telephone [facility] Ophthalmology - Main [place] [address] [place] [address] Jayden Roger MD [address] [place] [address] 2 [place] [address] Results Social History Tobacco Use Types Packs/Day [...] on filedocumented in this encounter Care Teams Window And Siding Craftsman Relationship Specialty Start Date End Date aCleb Ballard RPA [address] [place] [address] PCP - General 02/27/20 documented as of this encounter
--- OUTSIDE RECORDS SUMMARY | 2024-02-03 13:05 | XMS_ITS | Encounter Summary ---
Author Organization [facility] Address [address] [place] [address] Care Team Providers Care Technical Rep Name Role Phone Shital Brooke SAMUEL Primary Care Provider [phone] Reason for Visit * Reason Onset Date Comments Medication Management 04/21/2016 Encounter Details Date Type Department Care Team (Late st Contact Info) Description 04/21/2016 Telephone [facility] General Surgery [address] [address] Maegan Horton MD [address] [place] [phone] Medication Management Social History Tobacco Use [...] medication for Tramadol. Would like called into [facility] in [facility]. documented in this encounter Plan of Treatment Not on file documented as of this encounter Visit Diagnoses Not on filedocumented in this encounter Care Teams Technical Rep Relationship Specialty Start Date End Date Shital Brooke NP [place] [address] [place] [facility] [address] PCP - General 02/26/16 02/26/20 documented as of this encounter
--- OUTSIDE RECORDS SUMMARY | 2024-02-03 13:05 | XMS_ITS | Clinical Summary ---
Author Organization [facility] Address [address] [place] [address] Care Team Providers Care Vehicle Upholsterer Name Role Phone ElioaCleb Augustine [facility] Primary Care Provider [phone] Allergies No known active allergies Medications amitriptyline [...] - 19+ 3-dose series) 04/14 COVID-19 Vaccine ( - 2023- season) 2023 Hepatitis C Screen Completed 05/29/2021 Procedures Procedure Name Priority Date/Time Associated Diagnosis Comments HEPATITIS C AB W REFLEX TO HCV RNA BY PCR Routine 05/29/2021 10:14 EDT from Last 3 Months or Most Recently Relevant to Health Maintenance Results * HEPATITIS C AB W REFLEX TO HCV RNA BY PCR (05/29/2021 10:14 EDT) Hep C Antibody Negative Negative 06/01/2021 10:07 EDT [facility] Blood VENOUS BLOOD / Unknown 05/29/2021 10:14 EDT 05/30/2021 22:05 EDT us Provider Outr Resulting Lab CHEMISTRY & BLOOD GA S ORDERABLES Final Result [facility] [address] [place] [address] from Last 3 Months or Most Recently Relevant to Health Maintenance Insurance [address] [place] [address] [place] [address] [place] [address] [address] [place] [address] [address] [place] [address] [address] [place] [address] [address] [place] [address] [address] [place] [address] [address] [place] [address] Care Teams Vehicle Upholsterer Relationship Specialty Start Date End Date Caleb Ballard RPA [address] [facility] [address] [place] [address] PCP - General 02/27/20
--- OUTSIDE RECORDS SUMMARY | 2024-02-03 13:05 | XMS_ITS | Encounter Summary ---
Author Organization [facility] Address [address] [place] [address] Care Team Providers Care Trapper Animal Name Role Phone EloisedraganShital plunkett SAMUEL Primary Care Provider [phone] Reason for Visit * Reason Comments Neurologic Problem * Consult, Test and Treat (Routine) - Closed Specialty Diagnoses / Procedures Referred By Dayan parker Referred To Contact Ophthalmology Diagnoses Other localized visual field defect, bilateral Xanthelasma of right upper eyelid Xanthelasma of left upper eyelid Myopia, bilateral Regular astigmatism, bilateral Shippee, Vanessa, OD [address] [facility] [address] [place] [address] Phone: tel: fax: Kimani Lizarraga MD Phone: tel: fax: Referral ID Status Reason Start Date Expiration Date Visits Re quested Visits Authorized [id number] Closed 1 1 Encounter Details Date Type Department Care Team (Late st Contact Info) Description 05/31/2019 10:00 EDT Telemedicine [facility] Ophthalmology - Main [place] [address] [place], [place] [phone] Jayden Roger MD [address] [place] [address], [facility] [address] [place] [phone] Pain of left eye (Primary Dx); Visual [...] encounter, the patient was located at their [place] residence of record, please refer to the EMR for address details. Jayden Roger MD, the provider, was located at home [facility] . Verbal informed consent for telemedicine [...] Roger MD - 05/31/2019 0000 EDT [facility] NEURO-OPHTHALMOLOGY CONSULTATION - 05/31/2019 TELEMEDICINE VISIT [...] headaches. The patient recently was seen at [facility] for evaluation of ongoing blurry vision inthe left eye, and was prescribed correction for distance and near, as well as tint due to her significant light sensitivity. However, due to the [id number] cost of these spectacles, the patient has [...] reports that her primary care doctor and day camp unit leader are aware of her headaches, but because [...] from her right foot when she erin . In addition, her surgical history includes multiple [...] records forwarded from the patient's evaluation at [facility]; these date to January 30, 2019. At that time, the patient was found to have best corrected visual acuities on the order of 20/30 in each eye, with normal pressures and report of normal [id number]. I reviewed the automated solorio were obtained at her visit with [facility], these demonstratean inferior nasal defect with features [...] or concerns. Jayden Roger MD Diplomate, the [place] [employer] & Neurology kidney trimmer Department of Ophthalmology NEURO-OPHTHALMOLOGY documented in this encounter Plan of Treatment Not on file documented as of this encounter Visit Diagnoses Diagnosis Pain of left eye- Primary Pain in or around eye Visual field defects Visual field defect, unspecified documented in this encounter Care Teams Trapper Animal Relationship Specialty Start Date End Date Shital Brooke NP [facility] [place] [address] PCP - General 02/26/16 02/26/20 documented as of this encounter
--- OUTSIDE RECORDS SUMMARY | 2024-02-03 13:05 | XMS_ITS | Encounter Summary ---
Author Organization [facility] Address [address] [place] [address] Care Team Providers Care Health And Wellness Coordinator Name Role Phone Caleb Ballard RPA Primary Care Provider [phone] Reason for Visit * Reason Onset Date Comments Appointment Related 05/07/2020 Encounter Details Date Type Department Care Team (Late st Contact Info) Description 05/07/2020 Telephone [facility] Ophthalmology - [address] [phone] Yoni Vega MD [address] [facility], Level [address] [place] [address] Appointment Related Social History Tobacco [...] on filedocumented in this encounter Care Teams Health And Wellness Coordinator Relationship Specialty Start Date End Date Caleb Ballard RPA [address] [place] [address] PCP - General 02/27/20 documented as of this encounter
--- OUTSIDE RECORDS SUMMARY | 2024-02-03 13:06 | XMS_ITS | Encounter Summary ---
Author Organization [facility] Address [address] [place] [address] Care Team Providers Care Floor Sanding Machine Operator Name Role Phone Shital Crockett INSURANCE ADJUSTOR Primary Care Provider [phone] Reason for Visit * Reason Comments Hernia npv/umbilical hernia on ct Encounter Details Date Type Department Care Team (Late st Contact Info) Description 03/08/2016 15:00 EST Office Visit [facility] General Surgery [address] [phone] Maegan Horton MD [address] [place] [phone] Umbilical hernia without obstruction and without [...] Maegan Horton MD - 03/08/2016 1500 EST [facility] General Surgery Consultation Note - Initial Visit [...] She is scheduled to see GI @ [facility] on April. Patient complains of a bulge [...] be taken when reading/interpreting unformatted reports. Name: ARUL SPRAGUE : 1980 (Age: 35) F Collect Date: 02/19/2016 Location: [facility] Receive Date: 02/20/2016 Provider: MARGARET [...] HPV types 16,18,31,33,35, 39,45,51,52,56,58,59,66, and 68 by ladle liner helper mediated amplification. Comments Document reviewed and electronically [...] 12.05 4.0 - 12.4 K/cmm 03/08/2016 18:32 [facility] RBC 4.70 3.86 - 5.04 M/cmm 03/08/2016 18:32 [facility] Hemoglobin 11.4(L) 11.6 - 15.2 gm/dl 03/08/2016 18:32 [facility] HCT 36.1 34.9 - 44.4 % 03/08/2016 18:32 [facility] MCV 77(L) 81 - 98 fl 03/08/2016 18:32 [facility] MCH 24.3(L) 26.7 - 33.3 pg 03/08/2016 18:32 [facility] Hypochromia 1+ 03/08/2016 18:32 [facility] MCHC 31.6(L) 32.1 - 35.9 gm/dl 03/08/2016 18:32 [facility] RDW-CV 17.5(H) 11.7 - 14.6 % 03/08/2016 18:32 [facility] RDW-SD 48.4 37.6 - 50.3 fl 03/08/2016 18:32 [facility] Anisocytosis 1+ 03/08/2016 18:32 [facility] PLT 471(H) 141 - 377 K/cmm 03/08/2016 18:32 [facility] MPV 10.0 9.5 - 12.7 fl 03/08/2016 18:32 [facility] Blood specimen (specimen) BLOOD SPECIMEN / Unknown 03/08/2016 15:18 EST 03/08/2016 18:19 EST us Maegan Horton MD HEMATOLOGY & PF4 ORDERABLES Fi nal Result [facility] [address] [place] [address] documented in this encounter Visit Diagnoses Diagnosis Umbilical hernia without obstruction and without gangrene- Primary documented in this encounter Historical Medications * This list may reflect changes made after this encounter. meclizine (ANTIVERT) 25 mg tabletIndication s:vertigo Take 25 mg by mouth 3 times daily as needed. UNABLE TO FIND daily. Med Name: high blood pressure medication 7 added in this encounter Care Teams Floor Sanding Machine Operator Relationship Specialty Start Date End Date Shital Crockett [place] [address] [place] [address] PCP - General 02/26/16 02/26/20 documented as of this encounter
--- OUTSIDE RECORDS SUMMARY | 2024-02-03 13:06 | XMS_ITS | Encounter Summary ---
Author Organization [facility] Address [address] [place] [address] Care Team Providers Care Student Advisor Name Role Phone Shital Brooke INFORMATION CLERK [employer] Primary Care Provider [phone] Encounter Details Date Type Department Care Team (Lorna Contact Info) Description 03/02/2016 Results Only Imaging [facility] [phone] Unknown, Provider, MD Social History Tobacco Use Types Packs/Day [...] on filedocumented in this encounter Care Teams Student Advisor Relationship Specialty Start Date End Date Shital [place] [address] [place] [address] PCP - General 02/26/16 02/26/20 documented as of this encounter
--- OUTSIDE RECORDS SUMMARY | 2024-02-03 13:06 | XMS_ITS | Encounter Summary ---
Author Organization [facility] Address [address] [place] [address] Care Team Providers Care Milling Machine Set Up Operator Name Role Phone Unknown, Provider MD Primary Care Provider Unava ilable Encounter Details Date Type Department Care Team (Latest Contact Info) Description 10/08/2014 10:14 EDT - 10/08/2014 23:59 EDT Hospital Encounter [address] [address] Unknown, Provider, Discharge Disposition: Home or Self Care Social History Tobacco Use Types Packs/Day Years Used Date Smoking Tobacco: Never Assessed Comments Unknown Sex and Gender Information Value Date Recorded Sex Assigned at Not on file Legal Sex Female 17:45 EST Gender Identity Female 02/27/2020 19:23 EST Sexual Orientation Not on file documented as of this encounter Discharge Disposition Disposition Code Departure Means Destination Home or Self Senior Living documented in this encounter Plan of Treatment Not on file documented as of this encounter Visit Diagnoses Not on filedocumented in this encounter Care Teams Milling Machine Set Up Operator Relationship Specialty Start Date End Date Unknown, Provider, PCP - General 09/06/14 10/10/14 documented as of this encounter
--- OUTSIDE RECORDS SUMMARY | 2024-02-03 13:06 | XMS_ITS | Encounter Summary ---
Author Organization [facility] Address [address] [place] [address] Care Team Providers Care Head Operator Sulfide Name Role Phone Unknown, Provider Primary Care Provider Unava ilable Encounter Details Date Type Department Care Team (Late st Contact Info) Description 10/08/2014 Results Only [facility] [phone] Gianni Veras MD [address] [address] Social History Tobacco Use Types Packs/Day [...] ? RAUL SPRAGUE ? Accession #: ? [id number] ? : ? 1980 (Age: 34) ??F ? Collect Date: ? 10/08/2014 ? Location: ? [facility] ? Receive Date: ? 10/09/2014 ? Provider: CINDA VERAS MD Copy to: [facility]IA[facility]RE[facility] [employer] ? Final Pathologic Diagnosis: A. SMALL BOWEL, [...] B. antrum + body is one light stalney tissue and one white tissue (0.2 x [...] Garay 10/10/2014 9:35 AM End of Report [facility] 10/08/2014 6:56 EDT 10/09/2014 6:56 EDT us Gianni Veras MD PATHOLOGY ORDERABLES Final Resul t [facility] [address] [place] [address] documented in this encounter Visit Diagnoses Not on filedocumented in this encounter Care Teams Head Operator Sulfide Relationship Specialty Start Date End Date Unknown, Provider, PCP - General 09/06/14 10/10/14 documented as of this encounter
--- OUTSIDE RECORDS SUMMARY | 2024-02-03 13:06 | XMS_ITS | Encounter Summary ---
Author Organization [facility] Address [address] [place] [address] Care Team Providers Care Fingerprint Technician Name Role Phone KnowlesRenee fernández SAMUEL Primary Care Provider [phone] Reason for Visit * Reason Comments Eye Problem decreased vision/ ey e pain Encounter Details Date Type Department Care Team (Late st Contact Info) Description 12/17/2014 15:00 EST Office Visit [facility] Ophthalmology - [address] [address] Kimani Lizarraga MD [address] [place] [address], [address] [place] [address] Discharge Disposition: Auto Discharge Social [...] No TI Refraction Wearing Rx Sphere Cylinder Brinson Right -2.25 +0.25 120 Left -1.75 +0.25 075 Age: 1yrs Type: SVL Manifest Refraction (Retinoscopy) Sphere Cylinder Brinson Dist Right Left -1.50 +0.75 080 20/80 [...] Notes * Kimani Lizarraga MD - 12/18/2014 2956 EST [facility] OPHTHALMOLOGY CONSULTATION - 12/17/2014 Renee Knowles NP [address] [address] Dear Ms Knowles: Our mutual patient returns [...] them done before the snow falls in [place]. I am going to leave things a [...] - Kimani Lizarraga MD cn Dictation ID: [id number] cc: Renee Knowles HEALTH DIAGNOSTICS TEACHER, [address] [address] Samuel Melgar OD, [facility] [address] [place] [address], [address], [place] [address] documented in this encounter Plan of Treatment [...] Color Right eye Left eye AO PIP 14 0/14 Stereo Fly: + Circles: 0/9 Slit Lamp Exam Right eye Left eye Lids/Lashes Rosacea Rosacea Conjunctiva/Sclera Trace - 1+ LG Stain Trace - 1 + LG Stain Cornea No Stain, TBUT 2 No Stain, TBUT 2 Anterior Chamber Deep and quiet Deep and quiet Iris No TI No TI Wearing Rx Sphere Cylinder Brinson Right eye -2.25 +0.25 120 Left eye -1.75 +0.25 075 Age: 1yrs Type: SVL Manifest Refraction (Retinoscopy) Sphere Cylinder Brinson Dist [place] Right eye Left eye -1.50 +0.75 080 20/80 Unrefined Care Teams Fingerprint Technician Relationship Specialty Start Date End Date Renee Knowles NP PCP - General 10/11/14 02/25/16 documented as of this encounter
--- OUTSIDE RECORDS SUMMARY | 2024-02-03 13:06 | XMS_ITS | Encounter Summary ---
Author Organization [facility] Address [address] [place] [address] Care Team Providers Care Cv/Cvn Cv Tsc System Operator Name Role Phone Shital Brooke CRYSTAL MOUNTER Primary Care Provider [phone] Encounter Details Date Type Department Care Team (Late st Contact Info) Description 03/08/2016 Phlebotomy Only [address] [address] [employer], Outpatient Umbilical hernia without obstruction and without [...] 12.05 4.0 - 12.4 K/cmm 03/08/2016 18:32 [facility] RBC 4.70 3.86 - 5.04 M/cmm 03/08/2016 18:32 [facility] Hemoglobin 11.4(L) 11.6 - 15.2 gm/dl 03/08/2016 18:32 [facility] HCT 36.1 34.9 - 44.4 % 03/08/2016 18:32 [facility] MCV 77(L) 81 - 98 fl 03/08/2016 18:32 [facility] MCH 24.3(L) 26.7 - 33.3 pg 03/08/2016 18:32 [facility] Hypochromia 1+ 03/08/2016 18:32 [facility] MCHC 31.6(L) 32.1 - 35.9 gm/dl 03/08/2016 18:32 [facility] RDW-CV 17.5(H) 11.7 - 14.6 % 03/08/2016 18:32 [facility] RDW-SD 48.4 37.6 - 50.3 fl 03/08/2016 18:32 [facility] Anisocytosis 1+ 03/08/2016 18:32 [facility] PLT 471(H) 141 - 377 K/cmm 03/08/2016 18:32 [facility] MPV 10.0 9.5 - 12.7 fl 03/08/2016 18:32 [facility] Blood specimen (specimen) BLOOD SPECIMEN / Unknown 03/08/2016 15:18 EST 03/08/2016 18:19 EST us Maegan Horton MD HEMATOLOGY & PF4 ORDERABLES Fi nal Result [facility] [address] [place] [address] documented in this encounter Visit Diagnoses Diagnosis Umbilical hernia without obstruction and without gangrene- Primary documented in this encounter Care Teams Cv/Cvn Cv Tsc System Operator Relationship Specialty Start Date End Date Shital Brooke [place] [address] PCP - General 02/26/16 02/26/20 documented as of this encounter
--- OUTSIDE RECORDS SUMMARY | 2024-02-03 13:06 | XMS_ITS | Encounter Summary ---
Author Organization [facility] Address [address] [place] [address] Care Team Providers Care Tool Hardener Name Role Phone Shital Brooke CUSTOMER LEADER Primary Care Provider [phone] Reason for Visit * Reason Onset Date Comments Appointment Related 04/13/2016 Encounter Details Date Type Department Care Team (Late st Contact Info) Description 04/13/2016 Telephone [facility] Bariatric Surgery - [address] [phone] Maegan Horton MD [address] [place] [phone] Appointment Related Social History Tobacco Use [...] Telephone Encounter - Padma Bruce - 04/13/2016 3322 EST Called Ruby to confirm surgery check-in time with Dr. Mckeon. Surgery is scheduled on 2017 at 10:15 am. She will check-in with Level 3 Registration at the [facility] [place] [facility] by 08:15 am. Reminder, nothing by mouth after midnight, except medications with small sips of water. documented in this encounter Plan of Treatment Not on file documented as of this encounter Visit Diagnoses Not on filedocumented in this encounter Care Teams Tool Hardener Relationship Specialty Start Date End Date Shital Brokoe NP [address] [place] [address] PCP - General 02/26/16 02/26/20 documented as of this encounter
--- OUTSIDE RECORDS SUMMARY | 2024-02-03 13:06 | XMS_ITS | Encounter Summary ---
Author Organization [facility] Address [address] [place] [address] Care Team Providers Care Customer Account Specialist Name Role Phone Unavailable Primary Care Provider Unavailabl e Encounter Details Date Type Department Care Team (Late st Contact Info) Description 08/20/2009 Abstract Used for ABSTRACTING Data [phone] Unknown, Doctor Social History Tobacco Use Types [...]
--- OUTSIDE RECORDS SUMMARY | 2024-02-03 13:06 | XMS_ITS | Encounter Summary ---
Author Organization [facility] Address [address] [place] [address] Care Team Providers Care Extruder Operator Horizontal Name Role Phone Benson Renee BAKER Primary Care Provider [phone] Encounter Details Date Type Department Care Team (Late st Contact Info) Description 11/05/2014 Phlebotomy Only [facility], [place], [facility] [address] [place] [address] Software Quality Assurance Engineer, Outpatient VFD (visual field defect); Eye pain, [...] encounter Results * HOMOCYSTEINE (11/05/2014 12:58 EDT) [facility] Homocysteine 11.8 4.5 - 12.4 umol/L 11/06/2014 12:38 EDT [facility] Comment: Reference range may not [...] EDT Kimani Lizarraga MD CHEMISTRY & BLOOD GAS ORDER ROSENDO Final Result Performing Organization Address [facility] Co de Phone Number [facility] [address] [place] [address] * VITAMIN A, S (11/05/2014 12:57 EDT) Pathologist [facility] Vitamin A 33.8 32.5 - 78.0 mcg/dL 11/08/2014 13:10 EDT [facility] Comment: Performed by: [facility], [address], [place] [address], Senior Cobol Developer: Candace Kim, Ph.D. Blood specimen (specimen) BLOOD SPECIMEN / Unknown 11/05/2014 12:57 EDT 11/05/2014 13:18 EDT Kimani Lizarraga MD CHEMISTRY & BLOOD GAS ORDER ROSENDO Final Result Performing Organization Address [facility] de Phone Number [facility] [address] [place] [address] * PROTEIN C ACTIVITY (11/05/2014 12:57 EDT) [facility] Protein C Clot >150 71 - 199 % 11/07/2014 11:18 EDT [facility] Comment: a. ??Acquired Protein C [...] EDT Kimani Lizarraga MD HEMATOLOGY & PF4 ORDERABLES Final Result Performing Organization Address City/[facility]/ZIP Co de Phone Number [facility] [address] [place] [address] * PROTEIN S ACTIVITY (11/05/2014 12:57 EDT) Pathologist [facility] Protein S Activity 139 64 - 147 % 2014 9:57 EDT [facility] Comment: a. ??Acquired Protein S [...] EDT Kimani Lizarraga MD HEMATOLOGY & PF4 ORDERABLES Final Result Performing Organization Address [facility] Co de Phone Number [facility] [address] [place] [address] * METHYLMALONIC ACID (11/05/2014 12:57 EDT) Pathologist [facility] Methylmalonic Acid 0.25 <=0.40 nmol/mL 11/08/2014 13:10 EDT [facility] Comment: Performed or Referred by: [facility]: [facility], [address] [facility], [place] [address], Lab Dir: Earl Vance III, MD Blood specimen (specimen) BLOOD SPECIMEN / Unknown 11/05/2014 12:57 EDT 11/05/2014 13:18 EDT Kimani Lizarraga MD CHEMISTRY & BLOOD GAS ORDER ROSENDO Final Result [facility] [address] [place] [address] * (ABNORMAL) HEMAGRAM AND DIFFERENTIAL (11/05/2014 12:57 EDT) WBC 10.19 4.0 - 12.4 K/cmm 11/05/2014 13:27 [facility] RBC 4.37 3.86 - 5.04 M/cmm 11/05/2014 13:27 [facility] Hemoglobin 12.0 11.6 - 15.2 gm/dl 11/05/2014 13:27 [facility] HCT 36.2 34.9 - 44.4 % 11/05/2014 13:27 [facility] MCV 83 81 - 98 fl 11/05/2014 13:27 [facility] MCH 27.6 26.7 - 33.3 pg 11/05/2014 13:27 [facility] MCHC 33.2 32.1 - 35.9 gm/dl 11/05/2014 13:27 [facility] RDW-CV 16.6(H) 11.7 - 14.6 % 11/05/2014 13:27 [facility] RDW-SD 47.7 37.6 - 50.3 fl 11/05/2014 13:27 [facility] Anisocytosis 1+ 11/05/2014 13:27 [facility] PLT 397(H) 141 - 320 K/cmm 11/05/2014 13:27 [facility] MPV 8.3 7.5 - 11.2 fl 11/05/2014 13:27 [facility] % Neutrophils 65.6 45.5 - 79.7 % 11/05/2014 13:27 [facility] % Lymphocytes 22.9 15.0 - 46.8 % 11/05/2014 13:27 [facility] % Monocytes 7.6 1.8 - 12.0 % 11/05/2014 13:27 [facility] % Eosinophils 2.7 0.6 - 6.9 % 11/05/2014 13:27 [facility] % Basophils 1.2 0.2 - 1.4 % 11/05/2014 13:27 [facility] ABS Neutrophils 6.69 2.20 - 8.85 K/cm 11/05/2014 13:27 [facility] ABS Lymphs 2.33 1.09 - 3.30 K/cm 11/05/2014 13:27 [facility] ABS Monocytes 0.78 0.1 - 0.8 K/cm 11/05/2014 13:27 [facility] ABS Eosinophils 0.28 0.03 - 0.61 K/cm 11/05/2014 13:27 [facility] ABS Basophils 0.12(H) 0.01 - 0.11 K/cm 11/05/2014 13:27 [facility] Type of Diff: Automated 11/05/2014 13:27 [facility] Blood specimen (specimen) BLOOD SPECIMEN / Unknown 11/05/2014 12:57 EDT 11/05/2014 13:18 EDT Kimani Lizarraga MD PACKAGES & DNA PROBE ORDERA BLES Final Result [facility] [address] [place] [address] * SSB ANTIBODIES BY DEBORAH (11/05/2014 12:57 EDT) SSB Antibody 1.9 <20 Units 11/08/2014 8:32 T [facility] Comment: Negative: <20 Units Weak Positive: 20 - 29 Units Moderate Positive: 40 - 80 Units Strong Positive: >80 Units The following results were obtained with the [facility] SS-B DEBORAH. SS-B values obtained with different manufacturers'assay methods may not be used interchangeably. The magnitude of the reported IgG levels cannot be correlated to an endpoint titer. Blood specimen (specimen) BLOOD SPECIMEN / Unknown 11/05/2014 12:57 EDT 11/05/2014 13:18 EDT us Kimani Lizarraga MD IMMUNOLOGY AND SEROLOGY ORD ERABLES Final Result Performing Organization Address [facility]/ZIP Co de Phone Number [facility] [address] [place] [address] * SSA ANTIBODIES BY DEBORAH (11/05/2014 12:57 EDT) Pathologist [facility] SSA Antibody 2.0 <20 Units 11/08/2014 8:30 EDT [facility] Comment: Negative: <20 Units Weak Positive: 20 - 29 Units Moderate Positive: 40 - 80 Units Strong Positive: >80 Units The following results were obtained with the [facility] Lite SS-A DEBORAH. SS-A values obtained with different manufacturers' assay methods may not be used interchangeably. The magnitude of the reported IgG levels cannot be correlated to an endpoint titer. Blood specimen (specimen) BLOOD SPECIMEN / Unknown 11/05/2014 12:57 EDT 11/05/2014 13:18 EDT us Kimani Lizarraga MD IMMUNOLOGY AND SEROLOGY ORD ERABLES Final Result Performing Organization Address [facility] Co de Phone Number [facility] [address] [place] [address] * RHEUMATOID FACTOR (11/05/2014 12:57 EDT) [facility] Rheumatoid Factor <20 <20 IU/ml 11/05/2014 15:12 EDT [facility] Blood specimen (specimen) BLOOD SPECIMEN / Unknown 11/05/2014 12:57 EDT 11/05/2014 13:18 EDT Kimani Lizarraga MD CHEMISTRY & BLOOD GAS ORDER ROSENDO Final Result Performing Organization Address [facility]/ZIP Co de Phone Number [facility] [address] [place] [address] * SYPHILIS SEROLOGY (11/05/2014 12:57 EDT) Pathologist [facility] Syphilis Serology Negative 11/06/2014 13:40 EDT [facility] Comment:Reference Range: Neg ative Blood specimen (specimen) BLOOD SPECIMEN / Unknown 11/05/2014 12:57 EDT 11/05/2014 13:18 EDT Kimani Lizarraga MD IMMUNOLOGY AND SEROLOGY ORD ERABLES Final Result Performing Organization Address [facility]/ZIP Co de Phone Number [facility] [address] [place] [address] * LYME AB (11/05/2014 12:57 EDT) Lyme AB Negative 11/06/2014 13:39 EDT [facility] Comment:Reference Range: Neg ative Blood specimen (specimen) BLOOD SPECIMEN / Unknown 11/05/2014 12:57 EDT 11/05/2014 13:18 EDT Kimani Lizarraga MD IMMUNOLOGY AND SEROLOGY ORD ERABLES Final Result Performing Organization Address [facility] Co de Phone Number [facility] [address] [place] [address] * ANGIOTENSIN CONVERTING ENZYME (KING) (11/05/2014 12:57 EDT) [facility] Angiotensin Converting Enzyme 38 8 - 53 U/L 11/08/2014 13:10 EDT [facility] Comment: Performed by: [facility], [address], [place] [address], Senior Cobol Developer: Candace Kim, Ph.D. Blood specimen (specimen) BLOOD SPECIMEN / Unknown 11/05/2014 12:57 EDT 11/05/2014 13:18 EDT Kimani Lizarraga MD CHEMISTRY & BLOOD GAS ORDER ROSENDO Final Result Performing Organization Address [facility]/ZIP Co de Phone Number [facility] [address] [place] [address] * (ABNORMAL) SED. RATE:FALLONERGREN (11/05/2014 12:57 EDT) Pathologist [facility] Sed. Rate Westergren 36(H) 0 - 20 mm/hr 11/05/2014 13:34 EDT [facility] Blood specimen (specimen) BLOOD SPECIMEN / Unknown 11/05/2014 12:57 EDT 11/05/2014 13:18 EDT us Kimani Lizarraga MD HEMATOLOGY & PF4 ORDERABLES Final Result Performing Organization Address [facility]/ZIP Co de Phone Number [facility] [address] [place] [address] * VITAMIN B12 (11/05/2014 12:57 EDT) Vitamin B-12 277 211 - 911 pg/ml 11/05/2014 14:48 EDT [facility] Blood specimen (specimen) BLOOD SPECIMEN / Unknown 11/05/2014 12:57 EDT 11/05/2014 13:18 EDT us Kimani Lizarraga MD CHEMISTRY & BLOOD GAS ORDER ROSENDO Final Result Performing Organization Address [facility]/ZIP Co de Phone Number [facility] [address] [place] [address] * BUN (11/05/2014 12:57 EDT) BUN 10 10 - 26 mg/dl 11/05/2014 14:14 EDT [facility] Blood specimen (specimen) BLOOD SPECIMEN / Unknown 11/05/2014 12:57 EDT 11/05/2014 13:18 EDT Kimani Lizarraga MD CHEMISTRY & BLOOD GAS ORDER ROSENDO Final Result Performing Organization Address [facility] Co de Phone Number [facility] [address] [place] [address] * FOLATE (11/05/2014 12:57 EDT) Folate 8.9 ng/mL 11/05/2014 14:47 EDT [facility] Comment: Deficient: ??Less than 3.4 ng/mL Indeterminate: ??3.4-5.4 ng/mL Normal: ??Greater than 5.4 ng/mL Blood specimen (specimen) BLOOD SPECIMEN / Unknown 11/05/2014 12:57 EDT 11/05/2014 13:18 EDT Kimani Lizarraga MD CHEMISTRY & BLOOD GAS ORDER ROSENDO Final Result Performing Organization Address [facility] Co de Phone Number [facility] [address] [place] [address] * CREATININE (11/05/2014 12:57 EDT) Pathologist [facility] Creatinine 0.77 0.52 - 1.04 mg/dl 11/05/2014 14:14 EDT [facility] GFR, Calculated 100 >60 ml/min/1.7 3m2 11/05/2014 14:14 EDT [facility] Comment: eGFR calculated using CKD-EPI equation for non Americans. Multiply eGFR by 1.16 for Americans. Blood specimen (specimen) BLOOD SPECIMEN / Unknown 11/05/2014 12:57 EDT 11/05/2014 13:18 EDT Kimani Lizarraga MD CHEMISTRY & BLOOD GAS ORDER ROSENDO Final Result Performing Organization Address [facility] Co de Phone Number [facility] [address] [place] [address] * (ABNORMAL) C REACTIVE PROTEIN (11/05/2014 12:57 EDT) [facility] C Reactive Protein 10.7(H) <10.0 mg/L 11/05/2014 14:17 EDT [facility] Comment: Note units change to mg/L. Values will be 10 fold higher than with previous units of mg/dl. Blood specimen (specimen) BLOOD SPECIMEN / Unknown 11/05/2014 12:57 EDT 11/05/2014 13:18 EDT Kimani Lizarraga MD CHEMISTRY & BLOOD GAS ORDER ROSENDO Final Result Performing Organization Address [facility] Co de Phone Number [facility] [address] [place] [address] * ANTI NUCLEAR ANTIBODY (11/05/2014 12:57 EDT) Pathologist [facility] Anti Nuclear Ab <40 0 - 40 Dils 11/06/2014 15:25 EDT [facility] Blood specimen (specimen) BLOOD SPECIMEN / Unknown 11/05/2014 12:57 EDT 11/05/2014 13:18 EDT us Kimani Lizarraga MD IMMUNOLOGY AND SEROLOGY ORD ERABLES Final Result [facility] [address] [place] [address] documented in this encounter Visit Diagnoses Diagnosis VFD (visual field defect) Visual field defect, unspecified Eye pain, left Decreased peripheral vision of left eye Visual field contraction, left documented in this encounter Care Teams Extruder Operator Horizontal Relationship Specialty Start Date End Date Renee Knowles NP PCP - General 10/11/14 02/25/16 documented as of this encounter
--- OUTSIDE RECORDS SUMMARY | 2024-02-03 13:06 | XMS_ITS | Encounter Summary ---
Author Organization [facility] Address [address] [place] [address] Care Team Providers Care Operations Manager/Coordinator Name Role Phone KnowlesRenee fernández SAMUEL Primary Care Provider [phone] Encounter Details Date Type Department Care Team (Late st Contact Info) Description 02/19/2016 Results Only [facility] [phone] Margaret Waldron MD [facility] [place], [place] [id number] Social History Tobacco Use Types Packs/Day Years [...] ? RAUL SPRAGUE ? Accession #: ? [id number] ? : ? 1980 (Age: 35) ??F ?Collect Date: ? 02/19/2016 ? Location: ? [facility] ? Receive Date: ? 02/20/2016 ? Provider: MARGARET WALDRON MD Copy to: CLAIR CROCKETT SUPERVISOR LEAD REFINERY ? Final Report SPECIMEN ADEQUACY ? Satisfactory [...] types 16,18,31,33,35, 39,45,51,52,56,58, 59,66, and 68 by submersible pilot mediated amplification. Comments Document reviewed and electronically signed by: ? System Interface ? Report date: 02/27/2016 By the signature above, the attending physician certifies that he/she has personally conducted a gross and/or microscopic examination of the described specimens and rendered or confirmed the above diagnosis. End of Report [facility] 02/19/2016 02/20/2016 us Margaret Waldron MD PATHOLOGY ORDERABLES Final Res ult [facility] [address] [place] [address] documented in this encounter Visit Diagnoses Not on filedocumented in this encounter Care Teams Operations Manager/Coordinator Relationship Specialty Start Date End Date Renee Knowles NP PCP - General 10/11/14 02/25/16 documented as of this encounter
--- OUTSIDE RECORDS SUMMARY | 2024-02-03 13:06 | XMS_ITS | Encounter Summary ---
Author Organization [facility] Address [address] [place] [address] Care Team Providers Care Fuel Oil Clerk Name Role Phone Shital Brooke PLANT SAFETY ENGINEER Primary Care Provider [phone] Reason for Visit * Reason Onset Date Comments Other 03/12/2016 Encounter Details Date Type Department Care Team (Late st Contact Info) Description 03/12/2016 Telephone [facility] General Surgery - [address] [address] Maegan Horton MD [address] [place] [phone] Other Social History Tobacco Use Types [...] Telephone Encounter - Rangel Garvey - 03/12/2016 [id number] EST Attemempted to leave voicemail but none of the contact numbers we have are working. documented in this encounter Plan of Treatment Not on file documented as of this encounter Visit Diagnoses Not on filedocumented in this encounter Care Teams Fuel Oil Clerk Relationship Specialty Start Date End Date Shital Brooke [place] [address] [place] [address] PCP - General 02/26/16 02/26/20 documented as of this encounter
--- OUTSIDE RECORDS SUMMARY | 2024-02-03 13:06 | XMS_ITS | Encounter Summary ---
Author Organization [facility] Address [address] [place] [address] Care Team Providers Care Human Resource Consultant Name Role Phone Unavailable Primary Care Provider Unavailabl e Encounter Details Date Type Department Care Team (Late st Contact Info) Description 04/05/2013 Results Only [facility] Services - [facility] ([facility]) [address] [place] [address] Liliana Barreto NP [address] [place] [address] [...] ng unformatted reports. Name: ? MAU, RAUL ? Accession #: ? [id number] ? : ? 1980 (Age: 32) ??F ?Collect Date: ? 04/05/2013 ? Location: ? [facility] ? Receive Date: ? 04/09/2013 ? Provider: LILIANA BARRETO GAME MASTER Copy to: ? Final Report SPECIMEN ADEQUACY [...] types 16,18,31,33,35, 39,45,51,52,56,58, 59,66, and 68 by drying supervisor mediated amplification. Comments Document reviewed and electronically signed by: ? System Interface ? Report date: 04/16/2013 By the signature above, the attending physician certifies that he/she has personally conducted a gross and/or microscopic examination of the described specimens and rendered or confirmed the above diagnosis. End of Report MÓNICA DUFFY 04/05/2013 04/09/2013 us Liliana Barreto NP PATHOLOGY ORDERABLES Final Res ult MÓNICA DUFFY [address] [place] [address] documented in this encounter Visit Diagnoses Not on filedocumented in this encounter
--- OUTSIDE RECORDS SUMMARY | 2024-02-03 13:06 | XMS_ITS | Encounter Summary ---
Author Organization [facility] Address [address] [place] [address] Care Team Providers Care Parts Department Supervisor Name Role Phone Renee Knowles NP Primary Care Provider [phone] Reason for Referral * (Routine) - Closed Specialty Diagnoses / Procedures Referred By Contac t Referred To Contact Diagnoses VFD (visual field defect) Eye pain, left Decreased peripheral vision of left eye Visual field contraction, left Procedures OCT (OPHTHALMIC DIGITAL IMAGING, POSTERIOR SEGMENT) Kimani Lizarraga MD Phone: tel: fax: Referral ID Status Reason Start Date Expiration Date Visits Re quested Visits Authorized [id number] Closed 11/05/2014 1 1 * (Routine) - Closed Specialty Diagnoses / Procedures Referred By Contjessi t Referred To Contact Diagnoses VFD (visual field defect) Eye pain, left Decreased peripheral vision of left eye Visual field contraction, left Procedures VISUAL FIELD EXAM, EXTENDED Kimani Lizarraga MD Phone: tel: fax: Referral ID Status Reason Start Date Expiration Date Visits Re quested Visits Authorized [id number] Closed 11/05/2014 1 1 Reason for Visit [...] Info) Description 11/05/2014 9:00 EDT Office Visit [facility] Ophthalmology - [address] [address] Kimani Lizarraga MD [address] [facility], [address] [place] [address] Social History Tobacco Use Types [...] Lizarraga MD Refraction Wearing Rx Sphere Cylinder Uehling Right -2.25 +0.50 120 Left -1.75 +0.25 080 Age: 1yrs Type: SVL Manifest Refraction (Retinoscopy) Sphere Cylinder Uehling Dist Right -2.75 +1.00 120 20/25+ Left [...] Kimani Lizarraga MD - 11/05/20142124 EDT [facility] OPHTHALMOLOGY CONSULTATION - 11/05/2014 [facility], [address] [place] [address] Melgar: I had the privilege [...] 0/14 in the left eye with the [employer] pseudoisochromatic plates. It is important that [...] - Kimani Lizarraga MD cn Dictation ID: [id number] cc: Renee Knowles RECREATION ADVISER, [address] [address] Saumel Melgar OD, [facility] [address] [place] [address], [address], [place] [address] documented in this encounter Plan of Treatment [...] 2:57 PM Clinical History/Comments: 368.40-Visual field defect, [id number]-6-CM 379.91-Pain in or around snr-ECO-4-CM; patient with unexplained vision loss left eye [...] 2:57 PM Clinical History/Comments: 368.40-Visual field defect, xbosuntyeqb-DFM-2-CM 379.91-Pain in or around fvh-RNF-9-CM; patient with unexplained vision loss left eye [...] cavernous sinuses. Impression: No orbital abnormality identified. us Kimani Lizarraga MD [facility] [place] ORDERABLES Final Re sult * HOMOCYSTEINE (11/05/2014 12:58 EDT) [facility] Homocysteine 11.8 4.5 - 12.4 umol/L 11/06/2014 12:38 EDT [facility] Comment: Reference range may [...] ORDER ROSENDO Final Result Performing Organization Address [facility] de Phone Number [facility] [address] [place] [address] * VITAMIN A, S (11/05/2014 12:57 EDT) [facility] Vitamin A 33.8 32.5 - 78.0 mcg/dL 11/08/2014 13:10 EDT [facility] Comment: Performed by: [facility], [address] [facility], [place] [address], Outsole Rounder: Candace Kim, Ph.D. Blood specimen (specimen) BLOOD SPECIMEN / Unknown 11/05/2014 12:57 EDT 11/05/2014 13:18 EDT Kimani Lizarraga MD CHEMISTRY & BLOOD GAS ORDER ROSENDO Final Result Performing Organization Address [facility] Co de Phone Number [facility] [address] [place] [address] * PROTEIN C ACTIVITY (11/05/2014 12:57 EDT) [facility] Protein C Clot >150 71 - 199 % 11/07/2014 11:18 EDT [facility] Comment: a. ??Acquired Protein [...] PF4 ORDERABLES Final Result Performing Organization Address [facility] de Phone Number [facility] [address] [place] [address] * PROTEIN S ACTIVITY (11/05/2014 12:57 EDT) [facility] Protein S Activity 139 64 - 147 % 2014 9:57 EDT [facility] Comment: a. ??Acquired Protein [...] PF4 ORDERABLES Final Result Performing Organization Address [facility] Co de Phone Number [facility] [address] [place] [address] * METHYLMALONIC ACID (11/05/2014 12:57 EDT) Pathologist [facility] Methylmalonic Acid 0.25 <=0.40 nmol/mL 11/08/2014 13:10 [facility] Comment: Performed or Referred by: [facility] Labs: [facility], [address] , [place] [address], Lab Dir: Earl Vance III, MD Blood specimen (specimen) BLOOD SPECIMEN / Unknown 11/05/2014 12:57 EDT 11/05/2014 13:18 EDT us Kimani Lizarraga MD CHEMISTRY & BLOOD GAS ORDER ROSENDO Final Result [facility] [address] [place] [address] * (ABNORMAL) HEMAGRAM AND DIFFERENTIAL (11/05/2014 12:57 EDT) Pathologist [facility] WBC 10.19 4.0 - 12.4 K/cmm 11/05/2014 13:27 [facility] RBC 4.37 3.86 - 5.04 M/cmm 11/05/2014 13:27 [facility] Hemoglobin 12.0 11.6 - 15.2 gm/dl 11/05/2014 13:27 [facility] HCT 36.2 34.9 - 44.4 % 11/05/2014 13:27 [facility] MCV 83 81 - 98 fl 11/05/2014 13:27 [facility] MCH 27.6 26.7 - 33.3 pg 11/05/2014 13:27 [facility] MCHC 33.2 32.1 - 35.9 gm/dl 11/05/2014 13:27 [facility] RDW-CV 16.6(H) 11.7 - 14.6 % 11/05/2014 13:27 [facility] RDW-SD 47.7 37.6 - 50.3 fl 11/05/2014 13:27 [facility] Anisocytosis 1+ 11/05/2014 13:27 [facility] PLT 397(H) 141 - 320 K/cmm 11/05/2014 13:27 [facility] MPV 8.3 7.5 - 11.2 fl 11/05/2014 13:27 [facility] % Neutrophils 65.6 45.5 - 79.7 % 11/05/2014 13:27 [facility] % Lymphocytes 22.9 15.0 - 46.8 % 11/05/2014 13:27 [facility] % Monocytes 7.6 1.8 - 12.0 % 11/05/2014 13:27 [facility] % Eosinophils 2.7 0.6 - 6.9 % 11/05/2014 13:27 [facility] % Basophils 1.2 0.2 - 1.4 % 11/05/2014 13:27 [facility] ABS Neutrophils 6.69 2.20 - 8.85 K/[facility] 11/05/2014 13:27 [facility] ABS Lymphs 2.33 1.09 - 3.30 K/[facility] 11/05/2014 13:27 [facility] ABS Monocytes 0.78 0.1 - 0.8 K/cm 11/05/2014 13:27 [facility] ABS Eosinophils 0.28 0.03 - 0.61 K/cm 11/05/2014 13:27 [facility] ABS Basophils 0.12(H) 0.01 - 0.11 K/cm 11/05/2014 13:27 [facility] Type of Diff: Automated 11/05/2014 13:27 [facility] Blood specimen (specimen) BLOOD SPECIMEN / Unknown 11/05/2014 12:57 EDT 11/05/2014 13:18 EDT us Kimani Lizarraga MD PACKAGES & DNA PROBE ORDERA BLES Final Result [facility] [address] [place] [address] * SSB ANTIBODIES BY DEBORAH (11/05/2014 12:57 EDT) Pathologist [facility] SSB Antibody 1.9 <20 Units 11/08/2014 8:32 EDT [facility] Comment: Negative: <20 Units [...] ORD ERABLES Final Result Performing Organization Address [facility] de Phone Number [facility] [address] [place] [address] * SSA ANTIBODIES BY DEBORAH (11/05/2014 12:57 EDT) [facility] SSA Antibody 2.0 <20 Units 11/08/2014 8:30 EDT [facility] Comment: Negative: <20 Units [...] ORD ERABLES Final Result Performing Organization Address [facility] Co de Phone Number [facility] [address] [place] [address] * RHEUMATOID FACTOR (11/05/2014 12:57 EDT) [facility] Rheumatoid Factor <20 <20 IU/ml 11/05/2014 15:12 EDT [facility] Blood specimen (specimen) BLOOD SPECIMEN / Unknown 11/05/2014 12:57 EDT 11/05/2014 13:18 EDT Kimani Lizarraga MD CHEMISTRY & BLOOD GAS ORDER ROSENDO Final Result Performing Organization Address [facility] Co de Phone Number [facility] [address] [place] [address] * SYPHILIS SEROLOGY (11/05/2014 12:57 EDT) Syphilis Serology Negative 11/06/2014 13:40 EDT [facility] Comment:Reference Range: Neg ative Blood specimen (specimen) BLOOD SPECIMEN / Unknown 11/05/2014 12:57 EDT 11/05/2014 13:18 EDT Kimani Lizarraga MD IMMUNOLOGY AND SEROLOGY ORD ERABLES Final Result Performing Organization Address [facility] de Phone Number [facility] [address] [place] [address] * LYME AB (11/05/2014 12:57 EDT) Lyme AB Negative 11/06/2014 13:39 EDT [facility] Comment:Reference Range: Neg ative Blood specimen (specimen) BLOOD SPECIMEN / Unknown 11/05/2014 12:57 EDT 11/05/2014 13:18 EDT Kimani Lizarraga MD IMMUNOLOGY AND SEROLOGY ORD ERABLES Final Result Performing Organization Address [facility] de Phone Number [facility] [address] [place] [address] * ANGIOTENSIN CONVERTING ENZYME (KING) (11/05/2014 12:57 EDT) Angiotensin Converting Enzyme 38 8 - 53 U/L 11/08/2014 13:10 EDT [facility] Comment: Performed by: [facility], [address], [place] [address], Outsole Rounder: Candace Kim, Ph.D. Blood specimen (specimen) BLOOD SPECIMEN / Unknown 11/05/2014 12:57 EDT 11/05/2014 13:18 EDT us Kimani Lizarraga MD CHEMISTRY & BLOOD GAS ORDER ROSENDO Final Result Performing Organization Address [facility] Co de Phone Number [facility] [address] [place] [address] * (ABNORMAL) SED. RATE:WESTERGREN (11/05/2014 12:57 EDT) Sed. Rate Westergren 36(H) 0 - 20 mm/hr 11/05/2014 13:34 EDT [facility] Blood specimen (specimen) BLOOD SPECIMEN / Unknown 11/05/2014 12:57 EDT 11/05/2014 13:18 EDT us Kimani Lizarraga MD HEMATOLOGY & PF4 ORDERABLES Final Result Performing Organization Address [facility] Co de Phone Number [facility] [address] [place] [address] * VITAMIN B12 (11/05/2014 12:57 EDT) Pathologist [facility] Vitamin B-12 277 211 - 911 pg/ml 11/05/2014 14:48 EDT [facility] Blood specimen (specimen) BLOOD SPECIMEN / Unknown 11/05/2014 12:57 EDT 11/05/2014 13:18 EDT us Kimani Lizarraga MD CHEMISTRY & BLOOD GAS ORDER ROSENDO Final Result Performing Organization Address City/[facility]/ZIP Co de Phone Number [facility] [address] [place] [address] * BUN (11/05/2014 12:57 EDT) BUN 10 10 - 26 mg/dl 11/05/2014 14:14 EDT [facility] Blood specimen (specimen) BLOOD SPECIMEN / Unknown 11/05/2014 12:57 EDT 11/05/2014 13:18 EDT us Kimani Lizarraga MD CHEMISTRY & BLOOD GAS ORDER ROSENDO Final Result [facility] [address] [place] [address] * FOLATE (11/05/2014 12:57 EDT) Pathologist [facility] Folate 8.9 ng/mL 11/05/2014 14:47 EDT [facility] Comment: Deficient: ??Less than 3.4 ng/mL Indeterminate: ??3.4-5.4 ng/mL Normal: ??Greater than 5.4 ng/mL Blood specimen (specimen) BLOOD SPECIMEN / Unknown 11/05/2014 12:57 EDT 11/05/2014 13:18 EDT Kimani Lizarraga MD CHEMISTRY & BLOOD GAS ORDER ROSENDO Final Result Performing Organization Address [facility] Co de Phone Number [facility] [address] [place] [address] * CREATININE (11/05/2014 12:57 EDT) [facility] Creatinine 0.77 0.52 - 1.04 mg/dl 11/05/2014 14:14 EDT [facility] GFR, Calculated 100 >60 ml/min/1.7 3m2 11/05/2014 14:14 EDT [facility] Comment: eGFR calculated using CKD-EPI equation for non Americans. Multiply eGFR by 1.16 for Americans. Blood specimen (specimen) BLOOD SPECIMEN / Unknown 11/05/2014 12:57 EDT 11/05/2014 13:18 EDT us Kimani Lizarraga MD CHEMISTRY & BLOOD GAS ORDER ROSENDO Final Result Performing Organization Address City/[facility] Co de Phone Number [facility] [address] [place] [address] * (ABNORMAL) C REACTIVE PROTEIN (11/05/2014 12:57 EDT) [facility] C Reactive Protein 10.7(H) <10.0 mg/L 11/05/2014 14:17 EDT [facility] Comment: Note units change to mg/L. Values will be 10 fold higher than with previous units of mg/dl. Blood specimen (specimen) BLOOD SPECIMEN / Unknown 11/05/2014 12:57 EDT 11/05/2014 13:18 EDT Kimani Lizarraga MD CHEMISTRY & BLOOD GAS ORDER ROSENDO Final Result Performing Organization Address City/[facility]/ZIP Co de Phone Number [facility] [address] [place] [address] * ANTI NUCLEAR ANTIBODY (11/05/2014 12:57 EDT) Anti Nuclear Ab <40 0 - 40 Dils 11/06/2014 15:25 EDT [facility] Blood specimen (specimen) BLOOD SPECIMEN / Unknown 11/05/2014 12:57 EDT 11/05/2014 13:18 EDT Kimani Lizarraga MD IMMUNOLOGY AND SEROLOGY ORD ERABLES Final Result Performing Organization Address City/[facility] Co de Phone Number [facility] [address] [place] [address] documented in this encounter Visit Diagnoses Diagnosis VFD (visual field defect)- Primary Visual field defect, unspecified Eye pain, left Decreased peripheral vision of left eye Visual field contraction, left documented in this encounter Historical Medications * This list may reflect changes made after this encounter. amitriptyline (ELAVIL) 100 mg tablet Take 100 mg by mouth at bedtime as needed for Sleep. Reported on 03/08/2016 Ibuprofen-Diphen hydramine HCl 200-25 mg capsule Take by mouth [...] no pigment abnormalities Wearing Rx Sphere Cylinder Uehling Right eye -2.25 +0.50 120 Left eye -1.75 +0.25 080 Age: 1yrs Type: SVL Manifest Refraction (Retinoscopy) Sphere Cylinder Uehling Dist [place] Right eye -2.75 +1.00 120 20/25+ Left eye -1.50 +0.50 080 20/40+ Care Teams Parts Department Supervisor Relationship Specialty Start Date End Date Renee Knowles NP PCP - General 10/11/14 02/25/16 documented as of this encounter
--- OUTSIDE RECORDS SUMMARY | 2024-02-03 13:06 | XMS_ITS | Encounter Summary ---
Author Organization [facility] Address [address] [place] [address] Care Team Providers Care Supervisor Capacitor Processing Name Role Phone Shital Brooke NP Primary Care Provider [phone] Reason for Referral * (Routine) - Closed Specialty Diagnoses / Procedures Referred By Contac t Referred To Contact Mariela Lou MD Phone: tel: fax: Referral ID Status Reason Start Date Expiration Date V isits Requested Visits Authorized [id number] Closed Specialty Services Required 2016 1 1 [...] t Referred To Contact Mariela Lou MD Phone: tel: fax: Referral ID Status Reason Start Date Expiration Date V isits Requested Visits Authorized [id number] Closed Specialty Services Required 2016 1 1 [...] Expiration Date V isits Requested Visits Authorized [id number] Closed Specialty Services Required 2016 1 1 Question Answer Reason for Request: s/p umbilical hernia repair Scheduling Comments (optional ? describe specific scheduling needs if applicable): 4 weeks s/p dc Encounter Details Date Type Department Care Team (Latest Contact Info) Description 2016 8:17 EST - 2016 14:12 EST Hospital Encounter [facility] [place] [address] Maegan Horton MD [address] [place] [phone] Umbilical hernia without obstruction and without [...] by mouth daily. meclizine (ANTIVERT) 25 mg tabletIndication s:vertigo Take 25 mg by mouth 3 times daily as needed. oxyCODONE (ROXICODONE) 5 mg immediate release tablet Take 1-2 Tabs by mouth every 6 hours as needed for Pain. Daily Max: 40 mg 20 Tab 2016 DM/PSEUDOEPHED/A CETAMINOPHEN (VICKS DAYQUIL ORAL) Take by mouth. Reported on 04/30/2016 04/30/2016 documented as of this encounter Ordered Prescriptions Prescription Sig Dispense Quantity Refills Last Filled Start Date End Date oxyCODONE (ROXICODONE) 5 mg immediate release tablet Take 1-2 Tabs by mouth every 6 hours as needed for Pain. Daily Max: 40 mg 20 Tab 2016 documented in this encounter Discharge Disposition Disposition Code Departure Means Destination Home or Self Care documented in this encounter Progress Notes * Carmen Elias RN - 04/02/2016 0949 EST Ruby Sprague [...] She is scheduled to see GI @ [facility] on April. Patient complains of a [...] chart ?? Mariela Fairchild MD 2016 9:10 Cosigned by Maegan Horton MD at 2016 17:07 EST documented in this encounter OR Notes * OR Surgeon - Maegan Horton MD - 2016 0000 EST OPERATIVE REPORT SERVICE DATE: 2016 SURGEON: Maegan Mckeon MD, FACS, FASS CHILD CARE LEADER: Mariela Lou MD PREOPERATIVE DIAGNOSIS: Reducible ventral [...] grasped with 2 Arielle clamps. One interrupted [id number]-gd-[id number] Ethibond suture was utilized. The area was [...] Maegan Mckeon MD, LINDA LOVELL rn Confirmation: [id number] Dictation ID: [id number] documented in this encounter Miscellaneous Notes * [...] SCANNED (04/19/2016 8:42 EST) 04/19/2016 8:42 EST us Scan 2 Transportation Services Representative PROCEDURE/MINOR SURGICAL OR DERABLES Final Result documented in this encounter Visit Diagnoses Diagnosis [...] may reflect changes made after this encounter. lisinopril (PRINIVIL, ZESTRIL) 10 mg tablet Take 10 mg by mouth daily. DM/PSEUDOEPHED/A CETAMINOPHEN (VICKS DAYQUIL ORAL) Take by mouth. Reported [...] Date First Orde red Date ACTIVITY INSTRUCTIONS 2016 APPLY WARMING BLANKET 1 2016 INSERT PERIPHERAL IV [address] SEQUENTIAL COMPRESSION DEVICE 1 04/14 WOUND CARE INSTRUCTIONS 2016 Transfer Count Last Ordered Date First Orde red Date NOTIFY PPS PACU PATIENT DISCHARGE 017 NOTIFY PPS PATIENT ARRIVAL IN PACU 1 2016 Discharge Count Last Ordered Date First Orde red Date DISCHARGE PATIENT 1 2016 Legal Count Last Ordered Date First Orde red Date MISCELLANEOUS DISCHARGE INSTRUCTIONS 1 02/2016 documented in this encounter Care Teams Supervisor Capacitor Processing Relationship Specialty Start Date End Date Shital Brooke NP [address] [place] [address] PCP - General 02/26/16 02/26/20 documented as of this encounter
--- OUTSIDE RECORDS SUMMARY | 2024-02-03 13:06 | XMS_ITS | Encounter Summary ---
Author Organization [facility] Address [address] [place] [address] Care Team Providers Care Jetting Machine Operator Name Role Phone BarretoLiliana fernández SAMUEL Primary Care Provider [phone] Encounter Details Date Type Department Care Team (Late st Contact Info) Description 10/15/2014 Results Only [facility] [phone] Gianni Veras MD [address] [facility] [address] [place] [address] Social History Tobacco Use Types [...] when reading/interpret ing unformatted reports. Name: ? MAU, RAUL ? Accession #: ? [id number] ? : ? 1980 (Age: 34) ??F ? Collect Date: ? 10/15/2014 ? Location: ? [facility] ? Receive Date: ? 10/16/2014 ? Provider: CINDA VERAS MD Copy to: LILIANA BARRETO HOME EXTENSION AGENT ? Final Pathologic Diagnosis: A. COLON, ASCENDING, [...] C1. 10/17/2014 11:31 AM End of Report [facility] 10/15/2014 19:0 1 EDT 10/16/2014 19:01 EDT us Gianni Veras MD PATHOLOGY ORDERABLES Final Resul t [facility] [address] [place] [address] documented in this encounter Visit Diagnoses Not on filedocumented in this encounter Care Teams Jetting Machine Operator Relationship Specialty Start Date End Date Liliana Barreto NP PCP - General 10/11/14 02/25/16 documented as of this encounter
--- OUTSIDE RECORDS SUMMARY | 2024-02-03 13:06 | XMS_ITS | Encounter Summary ---
Author Organization [facility] Address [address] [place] [address] Care Team Providers Care Doctor Chiropractic Name Role Phone Renee Knowles NP Primary Care Provider [phone] Encounter Details Date Type Department Care Team (Late st Contact Info) Description 12/07/2014 13:13 EDT - 12/07/2014 23:59 EDT Hospital Encounter [facility] [address] [place] [address] Kimani Lizarraga MD [address] [facility], [address] [place] [phone] Discharge Disposition: Home or Self Care Social [...] Code Departure Means Destination Home or Self Skilled Nursing documented in this encounter Plan of Treatment Not on file documented as of this encounter Visit Diagnoses Not on filedocumented in this encounter Care Teams Doctor Chiropractic Relationship Specialty Start Date End Date Renee Knowles NP PCP - General 10/11/14 02/25/16 documented as of this encounter
--- OUTSIDE RECORDS SUMMARY | 2024-02-03 13:06 | XMS_ITS | Encounter Summary ---
Author Organization [facility] Address [address] [place] [address] Care Team Providers Care Health Practice Manager Name Role Phone Renee Knowles VINYL CUTTER Primary Care Provider [phone] Encounter Details Date Type Department Care Team (Latest Contact Info) Description 10/15/2014 11:00 EDT - 10/15/2014 23:59 EDT Hospital Encounter [facility] - [address] [address] Unknown, Provider, MD Discharge Disposition: Home or Self Care Social [...] filedocumented in this encounter Care Teams Health Practice Manager Relationship Specialty Start Date End Date Renee Knowles NP PCP - General 10/11/14 02/25/16 documented as of this encounter
--- OUTSIDE RECORDS SUMMARY | 2024-02-03 13:06 | XMS_ITS | Encounter Summary ---
Author Organization [facility] Address [address] [place] [address] Care Team Providers Care Theatre Arts Professor Name Role Phone BensonDeneenmargi BAKER Primary Care Provider [phone] Reason for Visit * Reason Onset Date Comments Appointment Related 11/13/2014 Encounter Details Date Type Department Care Team (Late st Contact Info) Description 11/13/2014 Telephone [facility] - [address] [phone] Kimani Lizarraga MD [address] [facility], [address] [place] [address] Appointment Related Social History Tobacco [...] encounter Miscellaneous Notes * Telephone Encounter - Isabella Martinez - 11/13/2014 1321 EDT Called and spoke to Ruby with date and time of MRI, which is scheduled on Tuesday, December 07, 2014 at 2 pm, at [facility] with check in time at 1:30 pm at 3-rd floor registration. Ruby will return to see Dr Lizarraga to review MRI and labs on Thursday, December 11, 2014 at 8 am. documented in this encounter Plan of Treatment Not on file documented as of this encounter Visit Diagnoses Not on filedocumented in this encounter Care Teams Theatre Arts Professor Relationship Specialty Start Date End Date Renee Knowles NP PCP - General 10/11/14 02/25/16 documented as of this encounter
== END 2024-02-03 12:58 | disposition home or self-care (01) ==
LOC: LBO 13:00
PROVIDERS: PCP Physician Assistant; Visit Provider Podiatrist
DX: M86.9 Osteomyelitis, unspecified (principal)
CPT/HCPCS: 36415; 80053; 85652; 85025; 86140

== ENCOUNTER 2024-03-01 13:05 | Emergency (ER) | payer MEDICARE, MEDICAID, SELFPAY ==
[2024-03-01 13:16] VITALS: BP 143/79; PULSE 81; RESP 16; TEMP 36.9; O2SAT 99
--- NOTE | 2024-03-01 13:20 | ED.GENADUL_ITS ---
Discharge Plan Disposition Patient Disposition: Home Condition: Stable Discharge Details Clinical Impression: Vulvovaginal candidiasis Primary Care Provider: Caleb Ballard ED Provider: Jurgen Arce Meds and New Rx's Prescriptions: New fluconazole 200 mg tablet 200 mg PO DAILY Qty: 1 0RF nystatin 100,000 unit/gram cream 1 applic topical BID 7 Days Qty: 30 0RF Continued mecobalamin (vitamin B12) 1,000 mcg tablet,chewable 1,000 mcg PO DAILY ibuprofen 800 mg tablet 800 mg PO TID PRN zolpidem [Ambien] 5 mg tablet 5 mg PO QHS PRN cholecalciferol (vitamin D3) 25 mcg (1,000 unit) tablet 25 mcg PO DAILY cyclobenzaprine 10 mg tablet 10 mg PO TID metformin 500 mg tablet 500 mg PO BID albuterol sulfate 90 mcg/actuation HFA aerosol inhaler 1 inh inhalation ONCE atorvastatin 20 mg tablet 20 mg PO DAILY pregabalin [Lyrica] 150 mg Capsule 150 mg PO DAILY folic acid 1 mg tablet 1 mg PO DAILY Patient Comments: TAKE 1 TABLET BY MOUTH DAILY propranolol 20 mg tablet 20 mg PO DAILY Patient Comments: TAKE 1 TABLET BY MOUTH TWICE DAILY NEEDED FOR ANXIETY Linzess 290 mcg capsule 290 mcg PO DAILY Patient Comments: TAKE 1 CAPSULE BY MOUTH DAILY ferrous sulfate [iron] 325 mg (65 mg iron) Tablet 325 mg PO DAILY topiramate 100 mg tablet 1 tab PO HS Patient Comments: TAKE 1 TABLET BY MOUTH EVERY NIGHT duloxetine 60 mg capsule,delayed release(DR/EC) 60 mg PO DAILY Patient Comments: TAKE ONE CAPSULE BY MOUTH EVERY DAY Discharge Instructions Instructions: Vulvovaginal yeast infection, Vaginal Yeast Infection, Adult ED Discharge Data Discharge Date/Time-TO BE ENTERED AT DEPARTURE: 03/01/24 15:43 Discharge Physician: Jurgen Arce HPI General Date/Time Provider Initiated Documentation: 03/01/24 13:19 . HPI Narrative: Patient presents emergency department complaining of vaginal itching for 3 days after she started having sex for the last 2 months with a new partner. Also reports urinary frequency urgency and burning. Denies fever chills denies back pain denies any lower abdominal pain denies any discharge Related Data Home Medications ?Medication ?Instructions ?Recorded ?Confirmed pregabalin 150 mg capsule (Lyrica) 150 mg PO DAILY 05/30/20 03/01/24 atorvastatin 20 mg tablet 20 mg PO DAILY 06/18/20 03/01/24 folic acid 1 mg tablet 1 mg PO DAILY 12/20/20 03/01/24 linaclotide 290 mcg capsule 290 mcg PO DAILY 12/20/20 03/01/24 (Linzess) propranolol 20 mg tablet 20 mg PO DAILY 12/20/20 03/01/24 ferrous sulfate 325 mg (65 mg 325 mg PO DAILY 08/03/21 03/01/24 iron) tablet (iron) topiramate 100 mg tablet 1 tab PO HS 08/03/21 03/01/24 ibuprofen 800 mg tablet 800 mg PO TID PRN 04/02/22 03/01/24 mecobalamin (vitamin B12) 1,000 1,000 mcg PO DAILY 04/02/22 03/01/24 mcg chewable tablet zolpidem 5 mg tablet (Ambien) 5 mg PO QHS PRN 04/02/22 03/01/24 duloxetine 60 mg capsule,delayed 60 mg PO DAILY 11/07/23 03/01/24 release albuterol sulfate 90 mcg/actuation 1 inh inhalation ONCE 11/11/23 03/01/24 aerosol inhaler cholecalciferol (vitamin D3) 25 25 mcg PO DAILY 11/11/23 03/01/24 mcg (1,000 unit) tablet cyclobenzaprine 10 mg tablet 10 mg PO TID 11/11/23 03/01/24 metformin 500 mg tablet 500 mg PO BID 11/11/23 03/01/24 fluconazole 200 mg tablet 200 mg PO DAILY #1 tab 03/01/24 nystatin 100,000 unit/gram topical 1 applic topical BID 7 days #30 03/01/24 cream grams Previous Rx's ?Medication ?Instructions ?Recorded fluconazole 200 mg tablet 200 mg PO DAILY #1 tab 03/01/24 nystatin 100,000 unit/gram topical 1 applic topical BID 7 days #30 03/01/24 cream grams Allergies Allergy/AdvReac Type Severity Reaction Status Date / Time lisinopril AdvReac Mild cough Verified 03/01/24 13:23 hydrocodone AdvReac Headache Verified 03/01/24 13:23 General CLIFFORD: 4 Review of Systems Narrative: Review of Systems: Constitutional: No fevers, chills, sweats Eye: No recent visual problems ENT: No ear pain, nasal congestion, sore throat Respiratory: No shortness of breath, cough Cardiovascular: No Chest pain, palpitations, syncope Gastrointestinal: No nausea, vomiting, diarrhea Roney/Lymph: Negative for bruising tendency, swollen lymph glands Endocrine: Negative for excessive thirst, excessive hunger Musculoskeletal: No back pain, neck pain, joint pain, muscle pain, decreased range of motion Integumentary: No rash, pruritus, abrasions Neurologic: Alert & oriented X 4 Psychiatric: No anxiety, depression Exam Narrative Exam Narrative: Exam; vitals signs as reported above normal Constitutional; In no acute distress, afebrile General: cooperative, healthy appearing, comfortable and no acute distress HEENT: Head: normal to inspection, no palpable skull fracture and normocephalic atraumatic Eyes: : appearance normal, both eyes and all related structures EOM intact bilaterally Pupils: PERRL : conjunctiva normal Direct ophthalmoscopy: normal light reflex, normal conjunctiva, normal visual acuity Ears: Normal TM, normal external canal Nose: normal no rhinorreha Neck no JVD, supple non tender Neck: normal visual inspection, full ROM and no lymphadenopathy Chest: normal inspection of the chest Respiratory : normal respiratory effort and able to speak in complete sentences no wheezing no rales Cardio Rate: regular rate, rhythm: regular rhythm normal heart sounds S1 and S2 no murmurs, gallops, or rubs GI : normal to inspection, normal bowel sounds, soft, non tender, non distended, no organomegaly Back/Spine/ no CVA tenderness Thoracic/Lumbar Spine: no tenderness or deformities Skin no rashes or lesions Neuro: patient alert oriented x 4 and no meningeal signs, Cranial Nerves: CN's II-XI intact bilaterally, Cognition: normal cognition, Speech: speech normal, Gait: normal gait, Depp tendon reflexes normal 2+ muscle strength 5/5 bilaterally Extremities, no edema, full range of motion, normal strength : Pelvic exam shows excoriation erythema in the labia minora no discharge no cervical motion tenderness Medical Decision Making MDM: Summary: Patient resents to the emergency department with vaginal itching but no discharge exam shows just mild erythema excretion of the labia majora and minora. Patient will be treated with fluconazole p.o. and nystatin intravaginal for most likely vulvovaginitis Data Review Analysis All the data on this patient was reviewed by me including laboratory and imaging studies as well as bedside studies performed by me Independent review of Studies Imaging Lab: Risk Stratification: Patient with low vaginitis will be discharged home with follow-up with her [employer] Differential Diagnosis: 1. Vulvovaginitis 2. Candidiasis 3. Herpes 4. 5. Consultants: Shared disposition: Patient is status her disposition will do accordingly Impression: Medical Records Medical records reviewed: Yes I reviewed the patient's medical records. Quality:SDOH Health Related Social Needs: No Data to Display PFSH All Active Problems (Updated 03/01/24 @ 15:44 by Jurgen Arce MD) Vulvovaginal candidiasis (Acute) Osteomyelitis (Acute) Dystrophy of nail due to trauma (Acute) Contusion of left foot (Acute) Displaced fracture of proximal phalanx of left lesser toe(s), initial encounter for closed fracture (Acute) Acute oral pain (Acute) Jaw pain (Acute) Right carpal tunnel syndrome (Acute) S/P ECTR: 08/13/2020 Right wrist sprain (Acute) Sprain of forearm, right (Acute) Vitamin B12 deficiency (Acute) Acute pain of right wrist (Acute) Carpal tunnel syndrome (Acute) Gastric ulcer (Acute) Knee sprain (Acute) Knee contusion (Acute) Knee fracture (Acute) Bilateral kidney stones (Acute 11/04/15) Abdominal wall cellulitis (Acute) Constipation due to pain medication (Acute) Neuropathic pain (Acute) Abdominal pain (Acute) Patellofemoral syndrome, right (Acute) Right knee pain (Acute) History of hernia surgery (Chronic) Abdominal hernia (Acute) just above umbilicus Recurrent umbilical hernia with incarceration (Acute) Medical History Headache Phantosmia Hyperlipidemia Hair loss Radicular pain Smoker History of IBS History of prediabetes Low back pain Obesity Tobacco dependence Generalized anxiety disorder Myofascial pain syndrome Pain, joint, knee, left Vitamin B12 deficiency (non anemic) Vitamin D deficiency Peripheral neuropathy Diarrhea due to drug Postoperative seroma Hematuria Hiatal hernia IBS (irritable bowel syndrome) GERD (gastroesophageal reflux disease) Insomnia Prediabetes Bilateral lower extremity edema Asthma stable. no exacerbations for 1 yr. Hypertension Abdominal pain chronic RLQ pain that did not improve with ureteroscopy. LUQ pain. W/U at [facility]. Pt thinks that she has hiatal hernia. No evidence on imaging studies. 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 Surgical History Hx of esophagogastroduodenoscopy History of hernia repair Status post Molly fundoplication bone spur R foot. Ligation of fallopian tube Tooth extraction Family History Mother Diabetes Father Epilepsy Social History Smoking/Tobacco Use Status: Current every day Tobacco Type: e-cigarettes Smoking risk assessment performed?: Yes Alcohol Intake: never Drug use: Never Substance use type: does not use Housing: apartment Number of Children: 4 current occupation: Disabled Current gender identity: female What is your relationship status?: living with partner Panel score (0-1 are the most socially isolated patients): 1 Do you feel safe at home: Yes Do you feel safe in your relationship?: Yes Additional Social history: lives with boyfriend History History Para 0 Hx # Term Pregnancies Multiple births Hx # Pregnancies Ectopic pregnancies AB induced Hx Number of Living Children AB spontaneous
[2024-03-01 14:14] LABS: Bilirubin Negative (Negative); Blood Moderate (Negative); Clarity Clear (Clear); Glucose Negative (Negative); Ketones Negative (Negative); Leukocyte Esterase Negative (Negative); Nitrite Negative (Negative); Specific Gravity >= 1.030 (1.005-1.025); Urobilinogen 0.2 mg/dL (Up to 0.2)
[2024-03-01 14:21] LABS: Bacteria Few HPF (Negative); C & S Indicated? No; Casts 0-2 Hyaline LPF (Negative); Crystals Negative HPF (Negative); Epithelial Cells Many HPF (Negative); Mucus Heavy (Negative); WBC 0-2 HPF (0-5)
== END 2024-03-01 15:43 | disposition home or self-care (01) ==
PROVIDERS: Emergency Provider Emergency Medicine Emergency Medical Services; PCP Physician Assistant
DX: B37.31 Acute candidiasis of vulva and vagina (principal); I10 Essential (primary) hypertension; E78.5 Hyperlipidemia, unspecified; Z87.891 Personal history of nicotine dependence
CPT/HCPCS: 99283; 81003; 81015

== ENCOUNTER → 2024-03-28 11:29 | Outpatient (BNVA) | payer MEDICARE, MEDICAID, SELFPAY | PROVIDERS: PCP Physician Assistant; Referring Provider Physician Assistant; Visit Provider Podiatrist | DX: S92.512D Displaced fracture of proximal phalanx of left lesser toe(s), subsequent encounter for fracture with routine healing (principal); L60.3 Nail dystrophy; S90.32XD Contusion of left foot, subsequent encounter; M79.672 Pain in left foot; M86.9 Osteomyelitis, unspecified | CPT/HCPCS: 99214; 73630 ==

== ENCOUNTER 2024-03-28 13:08 | Outpatient (CLI) | payer MEDICARE, MEDICAID, SELFPAY ==
--- NOTE | 2024-03-28 11:30 | DI.RAD_ITS ---
Exam(s) XR FOOT LT COMPLETE EXAM: XR FOOT LT COMPLETE CLINICAL HISTORY: S92.512A consolidated? 5th met head?. TECHNIQUE: 2D digital imaging was performed. COMPARISON: CR XR TOE LT FIFTH from 12/22/2023 CR XR FOOT LT COMPLETE from 01/31/2024 FINDINGS: 3 views Again noted is the previously described transverse/mildly oblique fracture in the proximal aspect of the proximal phalanx of 5th toe. Appearance is unchanged from 01/31/24. Fracture line is still visi ble. The adjacent head of the 5th metatarsal is again noted to be somewhat prominent in size and hypodense which is suspicious for osteomyelitis. However, on the present images there does appear to be a mor e intact appearing cortex over the head of the 5th metatarsal than on the previous images of 01/31/20. There is no obvious skin ulcer at this level nor gas in the soft tissues. There is no radiopaqu e foreign body. There are also subtle lucencies noted in the other metatarsal heads without cortical loss. These are probably related to osteopenia. Incidentally noted is some mild degenerative change in the metatarsophalangeal joint of the great toe . IMPRESSION: Stable appearance at the fracture site in the proximal phalanx of the 3rd toe. Abnormal appearance of the head of the 5th metatarsal which may indicate osteomyelitis although if th ere has been no puncture wound or skin ulcer than nonuse adjacent osteopenia would be significant con sideration. DATA REPOSITORY: RADIATION DOSE DELIVERED:
== END 2024-03-28 13:28 ==
LOC: DI 13:09
PROVIDERS: PCP Physician Assistant; Visit Provider Podiatrist
DX: S92.512D Displaced fracture of proximal phalanx of left lesser toe(s), subsequent encounter for fracture with routine healing (principal); X58.XXXD Exposure to other specified factors, subsequent encounter
CPT/HCPCS: 73630

== ENCOUNTER 2024-04-25 03:27 | Outpatient (CLI) | payer MEDICARE, MEDICAID, SELFPAY ==
--- NOTE | 2024-04-25 06:45 | DI.RAD_ITS ---
Exam(s) XR FOOT LT COMPLETE EXAM: XR FOOT LT COMPLETE CLINICAL HISTORY: ? Healing,DISPLACED FX PROXIMAL PHALANX,S92.512A. TECHNIQUE: 2D digital imaging was performed of the left foot. Three images were obtained. AP, obli que and lateral views were obtained. COMPARISON: CR XR TOE LT FIFTH from 11/07/2023 CR XR TOE LT FIFTH from 12/22/2023 CR XR FOOT LT COMPLETE from 01/31/2024 CR XR FOOT LT COMPLETE from 03/28/2024 FINDINGS: BONES: There has been no change in alignment of the fracture involving the proximal phalanx of the 5t h toe. There is incomplete healing of the fracture at its medial aspect. This is unchanged. There is a stable deformity involving the head of the 5th metatarsal. There is an erosion seen at the base of the 5th metatarsal bone. Differential considerations include infection versus arthrosis. JOINTS: No dislocation present. SOFT TISSUE: There is soft tissue swelling around the 5th MTP joint. IMPRESSION: 1. Stable appearance of the fracture of the proximal phalanx of the 5th toe. 2. Erosion seen at the base of the 5th metatarsal bone. Infection versus arthrosis. MRI may be cons idered for further evaluation. 3. Soft tissue swelling laterally at the level of the 5th MTP. 4. Stable osteopenia involving the head of the 5th metatarsal bone. No definite cortical disruption is seen. DATA REPOSITORY: RADIATION DOSE DELIVERED:
== END 2024-04-25 03:47 ==
LOC: DI 03:27
PROVIDERS: PCP Physician Assistant; Visit Provider Podiatrist
DX: S92.512D Displaced fracture of proximal phalanx of left lesser toe(s), subsequent encounter for fracture with routine healing (principal); X58.XXXD Exposure to other specified factors, subsequent encounter
CPT/HCPCS: 73630

== ENCOUNTER 2024-06-11 12:40 | Emergency (ER) | payer MEDICARE, MEDICAID, SELFPAY ==
[2024-06-11 12:43] VITALS: BP 136/64; PULSE 75; RESP 20; TEMP 37; O2SAT 99
[2024-06-11 12:48] VITALS: BP 136/64; PULSE 75; RESP 20; TEMP 37; O2SAT 99
--- NOTE | 2024-06-11 12:53 | ED.GENADUL_ITS ---
Discharge Plan Disposition Patient Disposition: Home Discharge Details Clinical Impression: Epidermoid cyst Primary Care Provider: Caleb Ballard ED Provider: Allison Nice Home Meds and New Rx's Prescriptions: No Action mecobalamin (vitamin B12) 1,000 mcg tablet,chewable 1,000 mcg PO DAILY ibuprofen 800 mg tablet 800 mg PO TID PRN zolpidem [Ambien] 5 mg tablet 5 mg PO QHS PRN cholecalciferol (vitamin D3) 25 mcg (1,000 unit) tablet 25 mcg PO DAILY cyclobenzaprine 10 mg tablet 10 mg PO TID metformin 500 mg tablet 500 mg PO BID albuterol sulfate 90 mcg/actuation HFA aerosol inhaler 1 inh inhalation ONCE atorvastatin 20 mg tablet 20 mg PO DAILY pregabalin [Lyrica] 150 mg Capsule 150 mg PO DAILY folic acid 1 mg tablet 1 mg PO DAILY Patient Comments: TAKE 1 TABLET BY MOUTH DAILY propranolol 20 mg tablet 20 mg PO DAILY Patient Comments: TAKE 1 TABLET BY MOUTH TWICE DAILY NEEDED FOR ANXIETY Linzess 290 mcg capsule 290 mcg PO DAILY Patient Comments: TAKE 1 CAPSULE BY MOUTH DAILY ferrous sulfate [iron] 325 mg (65 mg iron) Tablet 325 mg PO DAILY topiramate 100 mg tablet 1 tab PO HS Patient Comments: TAKE 1 TABLET BY MOUTH EVERY NIGHT duloxetine 60 mg capsule,delayed release(DR/EC) 60 mg PO DAILY Patient Comments: TAKE ONE CAPSULE BY MOUTH EVERY DAY Discharge Instructions Instructions: Epidermal Cyst (DC) Additional Instructions: Please follow-up with general surgery to have your cyst removed Use a heating pad for 15 to 20 minutes at a time every couple of hours. You may continue to use Tylenol ibuprofen as needed. Follow-up with surgery, express care, emergency dept if you develop new rash/ overlying redness, drainage from the cyst, or if you need to have it rechecked again. Return to emergency care if you develop new fevers, generalized feeling of unwellness, or if you are very worried and need to be rechecked again immdiately. Referrals: [facility] [Provider Group] HPI General Date/Time Provider Initiated Documentation: 06/11/24 12:53 . HPI Narrative: Ruby is a 44 year old female who presented to the ED today with sudden onset abdominal pain after lifting a heavy laundry bag last night. She describes a bulge or pop in her abdomen, followed by severe soreness rated at 10/10. Denies fever/chills, congestion, sore throat, cough, vomiting (though h/o Molly fundoplication prevents vomiting), change in bowel or bladder function, hematuria, dysuria, vaginal symptoms, leg numbness/pain or other masses/swelling. Mild nausea since onset of symptoms, has been able to tolerate some coffee and crackers today, but has had decreased appetite. Past medical history significant for prediabetes, hernias, and multiple abdominal surgeries, including emergency hernia repair. Attempted manual reduction of lump was painful and unsuccessful. Pain managed with ibuprofen 600 mg tonight and this AM with minimal relief. Related Data Home Medications ?Medication ?Instructions ?Recorded ?Confirmed pregabalin 150 mg capsule (Lyrica) 150 mg PO DAILY 05/30/20 06/11/24 atorvastatin 20 mg tablet 20 mg PO DAILY 06/18/20 06/11/24 folic acid 1 mg tablet 1 mg PO DAILY 12/20/20 06/11/24 linaclotide 290 mcg capsule 290 mcg PO DAILY 12/20/20 06/11/24 (Linzess) propranolol 20 mg tablet 20 mg PO DAILY 12/20/20 06/11/24 ferrous sulfate 325 mg (65 mg 325 mg PO DAILY 08/03/21 06/11/24 iron) tablet (iron) topiramate 100 mg tablet 1 tab PO HS 08/03/21 06/11/24 ibuprofen 800 mg tablet 800 mg PO TID PRN 04/02/22 06/11/24 mecobalamin (vitamin B12) 1,000 1,000 mcg PO DAILY 04/02/22 06/11/24 mcg chewable tablet zolpidem 5 mg tablet (Ambien) 5 mg PO QHS PRN 04/02/22 06/11/24 duloxetine 60 mg capsule,delayed 60 mg PO DAILY 11/07/23 06/11/24 release albuterol sulfate 90 mcg/actuation 1 inh inhalation ONCE 11/11/23 06/11/24 aerosol inhaler cholecalciferol (vitamin D3) 25 25 mcg PO DAILY 11/11/23 06/11/24 mcg (1,000 unit) tablet cyclobenzaprine 10 mg tablet 10 mg PO TID 11/11/23 06/11/24 metformin 500 mg tablet 500 mg PO BID 11/11/23 06/11/24 Allergies Allergy/AdvReac Type Severity Reaction Status Date / Time lisinopril AdvReac Mild cough Verified 06/11/24 12:49 hydrocodone AdvReac Headache Verified 06/11/24 12:49 General Stated Complaint: Abd Prob CLIFFORD: 3 Exam Narrative Exam Narrative: General Appearance: Normal, no acute distress. Vital signs: Within normal limits. Respiratory: Lungs clear to auscultation, easy work of breathing. Patient able to speak in full sentences. Cardiac: Regular rate and rhythm. Gastrointestinal: Abdomen remarkable for approximately 1 cm diameter tender mass noted inferior to umbilicus, no overlying skin changes or openings in the skin. Abdomen is soft, nondistended, otherwise nontender to palpation with normoactive bowel sounds. Skin: Warm and dry, no rash. Psychiatric: Normal. Course Vital Signs Vital signs: Vital Signs Temperature 37.0 C 06/11/24 12:43 Pulse 75 06/11/24 12:43 Respiratory Rate 20 06/11/24 12:43 Blood Pressure 136/64 06/11/24 12:43 Pulse Oximetry 99 06/11/24 12:43 Temperature 37.0 C 06/11/24 12:48 Temperature Source Oral 06/11/24 12:48 Pulse 75 06/11/24 12:48 Respiratory Rate 20 06/11/24 12:48 Blood Pressure 136/64 06/11/24 12:48 Blood Pressure Position Sitting 06/11/24 12:48 Pulse Oximetry 99 06/11/24 12:48 Oxygen Delivery Method Room Air 06/11/24 12:48 Oxygen Flow Rate 0 06/11/24 12:48 Medical Decision Making Initial Assessment: Patient presents with severe abdominal pain following lifting a heavy bag, with a history of hernias and recent bulge in the abdomen. Differential Diagnosis: - Possible cutaneous cyst: Considered due to proximity to the skin, no cutaneous findings suggestive of overlying cellulitis. Plan to perform an ultrasound to assess. - Hernia: History of hernias and bulge noted. Plan to perform an ultrasound and consider CT scan if inconclusive. ED Course: - Administered Tylenol and ibuprofen for pain management. - Ordered ultrasound to assess skin and abdominal wall. - Plan to consider CT scan if ultrasound is inconclusive or if any concerning findings. I independently interpreted the following tests: CBC, BMP, lactate. All reassuring. Consulted with Dr. Connelly, general surgeon. Reviewed patient presentation and imaging, he is in agreement with diagnosis of epidermoid cyst, this can be removed in office. Recommend calling general surgery office to schedule appointment in the next week or two. Final Assessment: Patient with severe abdominal pain and bulge in the abdomen. Ultrasound ordered to assess for cutaneous cyst or hernia. Pain management with Tylenol and ibuprofen initiated. Clinical Impression: - Cutaneous cyst without overlying cellulitis Disposition: - Discharge: Reviewed discharge instructions with patient, including surgery follow-up, warm compresses, and red flags indicate need for return to care. She voices agreement with plan of care. MDM Components Evaluation: - Number of Differential Diagnoses or Management Options: Possible cutaneous cyst, hernia - Amount and Complexity of Data Reviewed: Ultrasound ordered, consideration of CT scan - Risk of Complication and Morbidity or Mortality: Moderate risk due to history of hernias and severe pain Patient consented to the use of NEO Imaging Data Radiologic Study: Radiologist's impression: Exam(s) US SOFT TISS ABD WALL/LOW BACK EXAM: US SOFT TISS ABD WALL/LOW BACK CLINICAL HISTORY: painful mass inferior to umbilicus ?cyst vs hernia. TECHNIQUE: Ultrasound was performed using standard protocol. COMPARISON: CT CT ABDOMEN PELVIS W from 12/20/2019 FINDINGS: Sonographic assessment utilizing grayscale and color Doppler imaging was performed and targeted to the area of clinical concern. The area of concern corresponds cystic- appearing circumscribed collection in the subcutaneous measuring 7 x 6 x 8 millimeters. It appears to communicate with the skin. There is mild overlying skin thickening. Superimposed infection is not excluded. There is no evidence of a hernia. IMPRESSION: 8 millimeter subcutaneous fluid collection versus abscess. Quality:SDOH Health Related Social Needs: No Data to Display PFSH All Active Problems (Updated 06/11/24 @ 14:38 by Allison Schuster) Epidermoid cyst (Acute) 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 (Acute) Osteomyelitis (Acute) Dystrophy of nail due to trauma (Acute) Contusion of left foot (Acute) Displaced fracture of proximal phalanx of left lesser toe(s), initial encounter for closed fracture (Acute) Acute oral pain (Acute) Jaw pain (Acute) Right carpal tunnel syndrome (Acute) S/P ECTR: 08/13/2020 Right wrist sprain (Acute) Sprain of forearm, right (Acute) Vitamin B12 deficiency (Acute) Acute pain of right wrist (Acute) Carpal tunnel syndrome (Acute) Gastric ulcer (Acute) Knee sprain (Acute) Knee contusion (Acute) Knee fracture (Acute) Bilateral kidney stones (Acute 11/04/15) Abdominal wall cellulitis (Acute) Constipation due to pain medication (Acute) Neuropathic pain (Acute) Abdominal pain (Acute) Patellofemoral syndrome, right (Acute) Right knee pain (Acute) History of hernia surgery (Chronic) Abdominal hernia (Acute) just above umbilicus Recurrent umbilical hernia with incarceration (Acute) Medical History Headache Phantosmia Hyperlipidemia Hair loss Radicular pain Smoker History of IBS History of prediabetes Low back pain Obesity Tobacco dependence Generalized anxiety disorder Myofascial pain syndrome Pain, joint, knee, left Vitamin B12 deficiency (non anemic) Vitamin D deficiency Peripheral neuropathy Diarrhea due to drug Postoperative seroma Hematuria Hiatal hernia IBS (irritable bowel syndrome) GERD (gastroesophageal reflux disease) Insomnia Prediabetes Bilateral lower extremity edema Asthma stable. no exacerbations for 1 yr. Hypertension Abdominal pain chronic RLQ pain that did not improve with ureteroscopy. LUQ pain. W/U at [facility]. Pt thinks that she has hiatal hernia. No evidence on imaging studies. 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 Surgical History Hx of esophagogastroduodenoscopy History of hernia repair Status post Molly fundoplication bone spur R foot. Ligation of fallopian tube Tooth extraction Family History Mother Diabetes Father Epilepsy Social History Smoking/Tobacco Use Status: Current every day Tobacco Type: e-cigarettes Smoking risk assessment performed?: Yes Alcohol Intake: never Drug use: Never Substance use type: does not use Housing: apartment Number of Children: 4 current occupation: Disabled Current gender identity: female What is your relationship status?: living with partner Panel score (0-1 are the most socially isolated patients): 1 Do you feel safe at home: Yes Do you feel safe in your relationship?: Yes Additional Social history: lives with boyfriend History History Para 0 Hx # Term Pregnancies Multiple births Hx # Pregnancies Ectopic pregnancies AB induced Hx Number of Living Children AB spontaneous
--- NOTE | 2024-06-11 13:05 | DI.US_ITS ---
Exam(s) US SOFT TISS ABD WALL/LOW BACK EXAM: US SOFT TISS ABD WALL/LOW BACK CLINICAL HISTORY: painful mass inferior to umbilicus ?cyst vs hernia. TECHNIQUE: Ultrasound was performed using standard protocol. COMPARISON: CT CT ABDOMEN PELVIS W from 12/20/2019 FINDINGS: Sonographic assessment utilizing grayscale and color Doppler imaging was performed and targeted to th e area of clinical concern. The area of concern corresponds cystic- appearing circumscribed collection in the subcutaneous measur ing 7 x 6 x 8 millimeters. It appears to communicate with the skin. There is mild overlying skin th ickening. Superimposed infection is not excluded. There is no evidence of a hernia. IMPRESSION: 8 millimeter subcutaneous fluid collection versus abscess. DATA REPOSITORY:
[2024-06-11 13:24] LABS: Lactate 1.4 mmol/L (<or=2.0)
[2024-06-11 13:31] LABS: Abs Immature Grans 0.04 10^3/uL (0.0-0.06); Absolute Basophil Count 0.09 10^3/uL (0.0-0.2); Absolute Eosinophil Count 0.08 10^3/uL (0.0-0.7); Absolute Lymphocyte Count 1.81 10^3/uL (1.2-3.4); Absolute Monocyte Count 0.83 10^3/uL (0.1-0.8); Absolute Neutrophil Count 7.23 10^3/uL (1.2-6.7); Basophils % 0.9 %; Eosinophils % 0.8 %; HCT 32.8 % (36.0-46.0); HGB 9.9 g/dL (11.2-15.7); Immature Grans % 0.4 %; MCH 21.3 pg (27.0-33.0); MCHC 30.2 % (32.0-36.0); MCV 71 fL (80-95); Monocytes % 8.2 %; Neutrophils % 71.7 %; RBC 4.64 10^6/uL (3.93-5.22); RDW-SD 47.7 fL; WBC 10.08 10^3/uL (4.4-10.8)
[2024-06-11 13:37] LABS: Anion Gap 13.9 mmol/L (3-11); BUN 12 mg/dL (7-18); CO2 18.1 mmol/L (21.0-32.0); CREATININE 0.7 mg/dL (0.55-1.02); Calcium 9.1 mg/dL (8.5-10.1); Chloride 111 mmol/L (98-107); Estimated GFR 107.95 (mL/min/1.73m2); Glucose 129 mg/dL (74-106); Sodium 143 mmol/L (136-145)
[2024-06-11 13:48] LABS: Diff Comment Diff Reviewed
[2024-06-11 13:49] LABS: Microcytosis 2+
[2024-06-11] MEDS: Acetaminophen 325 MG TAB 650 MG PO (14:20)
[2024-06-11 14:39] VITALS: BP 120/56; PULSE 65; O2SAT 100
== END 2024-06-11 14:41 | disposition home or self-care (01) ==
PROVIDERS: Emergency Provider Nurse Practitioner Family; PCP Physician Assistant
DX: R10.9 Unspecified abdominal pain (principal); L72.0 Epidermal cyst; I11.0 Hypertensive heart disease with heart failure; E78.5 Hyperlipidemia, unspecified; F17.290 Nicotine dependence, other tobacco product, uncomplicated
CPT/HCPCS: 80048; 99284; 76705; 83605; 85025

== ENCOUNTER → 2024-06-13 15:12 | Outpatient (BNVA) | payer MEDICARE, MEDICAID, SELFPAY | PROVIDERS: PCP Physician Assistant; Referring Provider Physician Assistant; Visit Provider Surgery | DX: L72.0 Epidermal cyst (principal) | CPT/HCPCS: 99213 ==

== ENCOUNTER 2024-06-25 01:53 | Outpatient (CLI) | payer MEDICARE, MEDICAID, SELFPAY ==
--- NOTE | 2024-06-25 07:03 | DI.RAD_ITS ---
Exam(s) XR FOOT LT COMPLETE EXAM: XR FOOT LT COMPLETE CLINICAL HISTORY: ? HEALING,DISPLACED FX S92.502k. TECHNIQUE: 2D digital imaging was performed of the left foot. Three images were obtained. AP, obli que and lateral views were obtained. COMPARISON: CR XR FOOT LT COMPLETE from 04/25/2024 FINDINGS: BONES: There has been no change in alignment/appearance of the fracture through the proximal phalanx of the 5th toe. There has been interval increase in size of the erosion in the base of the 5th metat arsal. There is a small enthesophyte at the posterior calcaneus. Osteopenia. JOINTS: No dislocation present. SOFT TISSUE: Normal. IMPRESSION: 1. Stable appearance of the fracture involving the proximal phalanx of the 5th toe. 2. Interval increase in the erosion at the base of the 5th metatarsal. DATA REPOSITORY: RADIATION DOSE DELIVERED:
== END 2024-06-25 02:13 ==
LOC: DI 01:53
PROVIDERS: PCP Physician Assistant; Visit Provider Podiatrist
DX: S92.512D Displaced fracture of proximal phalanx of left lesser toe(s), subsequent encounter for fracture with routine healing (principal); X58.XXXD Exposure to other specified factors, subsequent encounter
CPT/HCPCS: 73630

== ENCOUNTER → 2024-06-27 11:02 | Outpatient (BNVA) | payer MEDICARE, MEDICAID, SELFPAY | PROVIDERS: PCP Physician Assistant; Referring Provider Physician Assistant; Visit Provider Podiatrist | DX: S92.502K Displaced unspecified fracture of left lesser toe(s), subsequent encounter for fracture with nonunion (principal); S92.512D Displaced fracture of proximal phalanx of left lesser toe(s), subsequent encounter for fracture with routine healing; L60.3 Nail dystrophy; S90.32XD Contusion of left foot, subsequent encounter; M79.672 Pain in left foot; M86.9 Osteomyelitis, unspecified; X58.XXXD Exposure to other specified factors, subsequent encounter | CPT/HCPCS: 99213 ==

== ENCOUNTER 2024-07-01 11:41 | Emergency (ER) | payer MEDICARE, MEDICAID, SELFPAY ==
[2024-07-01 11:49] VITALS: BP 116/78; PULSE 83; RESP 15; O2SAT 97
--- NOTE | 2024-07-01 12:15 | DI.CT_ITS ---
Exam(s) CT ABDOMEN PELVIS W EXAM: CT ABDOMEN PELVIS W CLINICAL HISTORY: Lower abdominal pain, abnormal vaginal bleeding TECHNIQUE: Imaging Protocol: Axial computed tomography images with coronal and sagittal reformatted images were created and reviewed. CONTRAST MATERIAL: Intravenous: Omnipaque 350 Contrast volume:75 mL Oral: No COMPARISON: CT CT ABDOMEN PELVIS W from 12/20/2019 FINDINGS: ABDOMEN: Lung Bases: No acute abnormality. Liver: Normal density. No measurable mass. Portal, Superior Mesenteric, and Splenic Veins: Unremarkable. Gallbladder and Biliary Tract: No radiodense calculus or dilation. Pancreas: Normal density, no abnormal calcifications or inflammatory process. Spleen: Normal. Adrenals: No masses seen. Kidneys: Normal size, contour and axis. There are nonobstructing stones seen in the kidneys bilateral ly. There are bilateral renal cysts. No follow-up is recommended. Abdominal Aorta: Abdominal portion non-dilated. Atherosclerotic calcification is present. Bowel: No obstruction or bowel wall thickening. Appendix is unremarkable. Peritoneal Cavity: No ascites, collection or mesenteric inflammatory response. No free air. Lymph Nodes: Within normal limits. Bones: Within normal limits for the patient's age. Soft Tissues: Unremarkable. PELVIS: Bladder: The urinary bladder is incompletely distended limiting evaluation. No gross abnormalities a re identified. Reproductive Organs: Unremarkable as visualized. Lymph Nodes: Within normal limits. Bones: Within normal limits for the patient's age. IMPRESSION: 1. No acute abdominal or pelvic process. 2. Bilateral nephrolithiasis. No hydronephrosis. 3. Unremarkable appearance of the reproductive organs on the CT examination. If symptoms persist, a pelvic ultrasound should be considered for further evaluation. RADIATION DOSE DELIVERED: 576.76mGy.cm Total DLP DATA REPOSITORY: All CT scans at this facility are submitted to the National Radiology Data Registry (NRDR) Dose Index Registry (DIR) with the [employer] (ACR). RADIATION OPTIMIZATION: All CT scans at this facility use at least one of these dose optimization te chniques: automated exposure control; mA and/or kV adjustment per patient size (includes targeted exa ms where dose is matched to clinical indication); or iterative reconstruction.
--- NOTE | 2024-07-01 12:25 | W.ED.GENAD ---
Discharge Plan Disposition Patient Disposition: Home Condition: Stable Discharge Details Clinical Impression: Abnormal vaginal bleeding in premenopausal patient, Abdominal pain Primary Care Provider: Caleb Ballard ED Provider: Vandana Amanda Home Meds and New Rx's Prescriptions: New doxycycline hyclate 100 mg capsule 100 mg PO BID 5 Days Qty: 10 0RF Rx Instructions: Take 1 capsule by mouth twice daily for the next 5 days Continued mecobalamin (vitamin B12) 1,000 mcg tablet,chewable 1,000 mcg PO DAILY ibuprofen 800 mg tablet 800 mg PO TID PRN zolpidem [Ambien] 5 mg tablet 5 mg PO QHS PRN cholecalciferol (vitamin D3) 25 mcg (1,000 unit) tablet 25 mcg PO DAILY metformin 500 mg tablet 500 mg PO BID albuterol sulfate 90 mcg/actuation HFA aerosol inhaler 1 inh inhalation ONCE cyclobenzaprine 10 mg tablet 10 mg PO TID PRN atorvastatin 20 mg tablet 20 mg PO DAILY pregabalin [Lyrica] 150 mg Capsule 150 mg PO DAILY folic acid 1 mg tablet 1 mg PO DAILY Patient Comments: TAKE 1 TABLET BY MOUTH DAILY propranolol 20 mg tablet 20 mg PO DAILY Patient Comments: TAKE 1 TABLET BY MOUTH TWICE DAILY NEEDED FOR ANXIETY Linzess 290 mcg capsule 290 mcg PO DAILY Patient Comments: TAKE 1 CAPSULE BY MOUTH DAILY ferrous sulfate [iron] 325 mg (65 mg iron) Tablet 325 mg PO DAILY topiramate 100 mg tablet 1 tab PO HS Patient Comments: TAKE 1 TABLET BY MOUTH EVERY NIGHT duloxetine 60 mg capsule,delayed release(DR/EC) 60 mg PO DAILY Patient Comments: TAKE ONE CAPSULE BY MOUTH EVERY DAY Discharge Instructions Instructions: Absent or irregular periods, Abdominal Pain, Adult ED Additional Instructions: At this time CT shows no acute abnormality. 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 I will place you on a few more days of the antibiotics you were previously given for the abdominal wall cyst. A prescription for 5 more days of the antibiotic was sent to the pharmacy on file. Please take this as directed. Follow up with primary care provider in 3-5 days. Return to ED sooner if any worsening or concerns. No evidence of urinary tract infection Please take Tylenol or Ibuprofen with food every 4-6 hours as needed for pain and swelling. Referrals: [facility] [Provider Group] - 1 week (For abnormal vaginal bleeding) Caleb Ballard [Primary Care Provider] - 3 days Discharge Data Discharge Date/Time-TO BE ENTERED AT DEPARTURE: 07/01/24 14:58 HPI General Mode of arrival: ambulatory. Date/Time Provider Initiated Documentation: 07/01/24 11:59. Limitations to Documentation: no limitations. Information obtained by: patient, RN notes reviewed and old records reviewed. HPI Narrative: 44-year-old female presents to the ER with a chief complaint of abnormal vaginal bleeding, pelvic pain. She also reports that she recently finished antibiotics yesterday she had taken doxycycline for the last 7 days for an epidermal cyst to her suprapubic area. She was seen by general surgery and had been scheduled for procedure to drain the cyst under anesthesia however, she was told per patient report that the surgery will have to wait until the infection is completely treated. She reports that she has been vaginal bleeding since June 17. She does have a history of heavy periods and is not currently on any control. She denies any dysuria fever chills nausea vomiting or diarrhea. Related Data Home Medications ?Medication ?Instructions ?Recorded ?Confirmed pregabalin 150 mg capsule (Lyrica) 150 mg PO DAILY 05/30/20 07/01/24 atorvastatin 20 mg tablet 20 mg PO DAILY 06/18/20 07/01/24 folic acid 1 mg tablet 1 mg PO DAILY 12/20/20 07/01/24 linaclotide 290 mcg capsule 290 mcg PO DAILY 12/20/20 07/01/24 (Linzess) propranolol 20 mg tablet 20 mg PO DAILY 12/20/20 07/01/24 ferrous sulfate 325 mg (65 mg 325 mg PO DAILY 08/03/21 07/01/24 iron) tablet (iron) topiramate 100 mg tablet 1 tab PO HS 08/03/21 07/01/24 ibuprofen 800 mg tablet 800 mg PO TID PRN 04/02/22 07/01/24 mecobalamin (vitamin B12) 1,000 1,000 mcg PO DAILY 04/02/22 07/01/24 mcg chewable tablet zolpidem 5 mg tablet (Ambien) 5 mg PO QHS PRN 04/02/22 07/01/24 duloxetine 60 mg capsule,delayed 60 mg PO DAILY 11/07/23 07/01/24 release albuterol sulfate 90 mcg/actuation 1 inh inhalation ONCE 11/11/23 07/01/24 aerosol inhaler cholecalciferol (vitamin D3) 25 25 mcg PO DAILY 11/11/23 07/01/24 mcg (1,000 unit) tablet metformin 500 mg tablet 500 mg PO BID 11/11/23 07/01/24 cyclobenzaprine 10 mg tablet 10 mg PO TID PRN 06/13/24 07/01/24 doxycycline hyclate 100 mg capsule 100 mg PO BID Cellulitis 5 days 07/01/24 #10 caps Previous Rx's ?Medication ?Instructions ?Recorded doxycycline hyclate 100 mg capsule 100 mg PO BID Cellulitis 5 days 07/01/24 #10 caps Allergies Allergy/AdvReac Type Severity Reaction Status Date / Time lisinopril AdvReac Mild cough Verified 07/01/24 11:53 hydrocodone AdvReac Headache Verified 07/01/24 11:53 General Stated Complaint: 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 Appears stated age. Normal body habitus. Head: Normocephalic, no trauma. Eyes: Pupils PERRL, Red reflex noted, EOM's intact. Eyelids symmetrical without lesions, discharge, or swelling. ENT: Bilateral TM's WNL, External ear normal to inspection, no mastoid TTP, swelling, or erythema, Nasal turbinates WNL, no nasal discharge. Normal dentition, Posterior pharynx WNL, no exudate. Chest: RRR, Normal S1, S2, distal pulses intact. Resp: Lungs clear to auscultation bilaterally, no wheezes, rales, or rhonchi. Abdomen: Soft, non-distended, Normoactive bowel sounds all 4 quads. Small area of healed scarring to lower mid suprapubic region. Mildly tender with palpation no surrounding erythema or induration. Musculoskeletal: Normal gait, Moves all 4 extremities without difficulty. Skin: No suspicious rashes or lesions. Capillary refill less than 2 sec. Neurologic: Cranial nerves II-XII intact. Alert and oriented x 3. Motor: No deficits noted. Sensory: Intact bilaterally all 4 extremities. Hematologic/Lymphatic: No ecchymosis, no lymphadenopathy. Course Vital Signs Vital signs: Vital Signs Pulse 83 07/01/24 11:49 Respiratory Rate 15 07/01/24 11:49 Blood Pressure 116/78 07/01/24 11:49 Pulse Oximetry 97 07/01/24 11:49 Pulse 83 07/01/24 11:49 Respiratory Rate 15 07/01/24 11:49 Blood Pressure 116/78 07/01/24 11:49 Blood Pressure Position Sitting 07/01/24 11:49 Pulse Oximetry 97 07/01/24 11:49 Oxygen Delivery Method Room Air 07/01/24 11:49 Oxygen Flow Rate 0 07/01/24 11:49 Medical Decision Making 44-year-old female presents to the ER with a chief complaint of abnormal vaginal bleeding, pelvic pain. She also reports that she recently finished antibiotics yesterday she had taken doxycycline for the last 7 days for an epidermal cyst to her suprapubic area. She was seen by general surgery and had been scheduled for procedure to drain the cyst under anesthesia however, she was told per patient report that the surgery will have to wait until the infection is completely treated. She reports that she has been vaginal bleeding since June 17. She does have a history of heavy periods and is not currently on any control. She denies any dysuria fever chills nausea vomiting or diarrhea. On exam there is no significant induration or surrounding erythema to the epidermal cyst, it is tender with palpation. I did discuss with patient that the abnormal vaginal bleeding could be related to perimenopause. She denies soaking through any pads an hour. I did discuss options such as few more days of antibiotics versus labs and imaging. Will go ahead with basic labs and imaging I do suspect discharged with few more days of antibiotics and follow-up with general surgery and her PCP. CBC shows white blood cell count of 12.04 hemoglobin 10.7 hematocrit 35.1 which is at patient's baseline, sodium 140 potassium slightly low at 3.3 glucose 165, urinalysis is pending at this time. CT abdomen shows no acute abdominal or pelvic process, will have patient follow-up as an outpatient for a pelvic ultrasound and follow-up with primary care provider for abnormal vaginal bleeding. This text was generated using Dryadation system, please disregard any oddities of phrase or misspellings. Imaging Data Radiologic Study: Imaging: CT Scan Radiologist's impression: FINDINGS: ABDOMEN: Lung Bases: No acute abnormality. Liver: Normal density. No measurable mass. Portal, Superior Mesenteric, and Splenic Veins: Unremarkable. Gallbladder and Biliary Tract: No radiodense calculus or dilation. Pancreas: Normal density, no abnormal calcifications or inflammatory process. Spleen: Normal. Adrenals: No masses seen. Kidneys: Normal size, contour and axis. There are nonobstructing stones seen in the kidneys bilaterally. There are bilateral renal cysts. No follow-up is recommended. Abdominal Aorta: Abdominal portion non-dilated. Atherosclerotic calcification is present. Bowel: No obstruction or bowel wall thickening. Appendix is unremarkable. Peritoneal Cavity: No ascites, collection or mesenteric inflammatory response. No free air. Lymph Nodes: Within normal limits. Bones: Within normal limits for the patient's age. Soft Tissues: Unremarkable. PELVIS: Bladder: The urinary bladder is incompletely distended limiting evaluation. No gross abnormalities are identified. Reproductive Organs: Unremarkable as visualized. Lymph Nodes: Within normal limits. Bones: Within normal limits for the patient's age. IMPRESSION: 1. No acute abdominal or pelvic process. 2. Bilateral nephrolithiasis. No hydronephrosis. 3. Unremarkable appearance of the reproductive organs on the CT examination. If symptoms persist, a pelvic ultrasound should be considered for further evaluation. Lab Data Lab results reviewed: Yes I reviewed the patient's lab results. Labs: Laboratory Tests Range/Units 07/01/24 12:38 WBC (4.4-10.8) 10^3/uL 12.04 H RBC (3.93-5.22) 10^6/uL 4.94 Hgb (11.2-15.7) g/dL 10.7 L Hct (36.0-46.0) % 35.1 L MCV (80-95) fL 71 L MCH (27.0-33.0) pg 21.7 L MCHC (32.0-36.0) % 30.5 L RDW (11.7-14.6) % 19.8 H Plt Count (130-400) 10^3/uL 392 MPV (8.0-11.0) fL 11.0 Immature Gran % % 0.4 Neutrophils % % 70.3 Lymphocytes % % 19.2 Monocytes % % 8.5 Eosinophils % % 0.9 Basophils % % 0.7 Nucleated RBC % (0.0-0.3) % 0.0 Absolute Neutrophils (1.2-6.7) 10^3/uL 8.46 H Absolute Lymphocytes (1.2-3.4) 10^3/uL 2.31 Absolute Monocytes (0.1-0.8) 10^3/uL 1.02 H Absolute Eosinophils (0.0-0.7) 10^3/uL 0.11 Absolute Basophils (0.0-0.2) 10^3/uL 0.08 Sodium (136-145) mmol/L 140 Potassium (3.5-5.1) mmol/L 3.3 L Chloride (98-107) mmol/L 107 Carbon Dioxide (21.0-32.0) mmol/L 21.4 Anion Gap (3-11) mmol/L 11.6 H BUN (7-18) mg/dL 18 Creatinine (0.55-1.02) mg/dL 0.9 Est GFR (CKD-EPI 2020) (mL/min/1.73m2) 79.85 Glucose (74-106) mg/dL 165 H Calcium (8.5-10.1) mg/dL 8.6 Total Bilirubin (0.2-1.0) mg/dL 0.4 AST (15-37) U/L 15 ALT (14-59) U/L 22 Alkaline Phosphatase (46-116) U/L 105 Total Protein (6.4-8.2) g/dL 7.0 Albumin (3.4-5.0) g/dL 3.3 L Quality:SDOH Health Related Social Needs: No Data to Display PFSH All Active Problems (Updated 07/01/24 @ 13:55 by Vandana Amanda NP) Abdominal pain (Acute) Abnormal vaginal bleeding in premenopausal patient (Acute) Epidermoid cyst (Acute) 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 (Acute) Osteomyelitis (Acute) Dystrophy of nail due to trauma (Acute) Contusion of left foot (Acute) Displaced fracture of proximal phalanx of left lesser toe(s), initial encounter for closed fracture (Acute) Acute oral pain (Acute) Jaw pain (Acute) Right carpal tunnel syndrome (Acute) S/P ECTR: 08/13/2020 Right wrist sprain (Acute) Sprain of forearm, right (Acute) Vitamin B12 deficiency (Acute) Acute pain of right wrist (Acute) Carpal tunnel syndrome (Acute) Gastric ulcer (Acute) Knee sprain (Acute) Knee contusion (Acute) Knee fracture (Acute) Bilateral kidney stones (Acute 11/04/15) Abdominal wall cellulitis (Acute) Constipation due to pain medication (Acute) Neuropathic pain (Acute) Abdominal pain (Acute) Patellofemoral syndrome, right (Acute) Right knee pain (Acute) History of hernia surgery (Chronic) Abdominal hernia (Acute) just above umbilicus Recurrent umbilical hernia with incarceration (Acute) Medical History Headache Phantosmia Hyperlipidemia Hair loss Radicular pain Smoker History of IBS History of prediabetes Low back pain Obesity Tobacco dependence Generalized anxiety disorder Myofascial pain syndrome Pain, joint, knee, left Vitamin B12 deficiency (non anemic) Vitamin D deficiency Peripheral neuropathy Diarrhea due to drug Postoperative seroma Hematuria Hiatal hernia IBS (irritable bowel syndrome) GERD (gastroesophageal reflux disease) Insomnia Prediabetes Bilateral lower extremity edema Asthma stable. no exacerbations for 1 yr. Hypertension Abdominal pain chronic RLQ pain that did not improve with ureteroscopy. LUQ pain. W/U at [facility]. Pt thinks that she has hiatal hernia. No evidence on imaging studies. 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 Surgical History Hx of esophagogastroduodenoscopy History of hernia repair Status post Molly fundoplication bone spur R foot. Ligation of fallopian tube Tooth extraction Family History Mother Diabetes Father Epilepsy Social History Smoking/Tobacco Use Status: Current every day Tobacco Type: e-cigarettes Smoking risk assessment performed?: Yes Alcohol Intake: never Drug use: Never Substance use type: does not use Housing: apartment Number of Children: 4 current occupation: Disabled Current gender identity: female What is your relationship status?: living with partner Panel score (0-1 are the most socially isolated patients): 1 Do you feel safe at home: Yes Do you feel safe in your relationship?: Yes Additional Social history: lives with boyfriend History History Para 0 Hx # Term Pregnancies Multiple births Hx # Pregnancies Ectopic pregnancies AB induced Hx Number of Living Children AB spontaneous
[2024-07-01 12:48] VITALS: BP 116/78; PULSE 83; RESP 15; TEMP 36.5; O2SAT 97
[2024-07-01 12:49] LABS: Abs Immature Grans 0.05 10^3/uL (0.0-0.06); Absolute Eosinophil Count 0.11 10^3/uL (0.0-0.7); Absolute Lymphocyte Count 2.31 10^3/uL (1.2-3.4); Absolute Monocyte Count 1.02 10^3/uL (0.1-0.8); Absolute Neutrophil Count 8.46 10^3/uL (1.2-6.7); Basophils % 0.7 %; Eosinophils % 0.9 %; HCT 35.1 % (36.0-46.0); HGB 10.7 g/dL (11.2-15.7); Immature Grans % 0.4 %; Lymphocytes % 19.2 %; MCH 21.7 pg (27.0-33.0); MCHC 30.5 % (32.0-36.0); MCV 71 fL (80-95); Monocytes % 8.5 %; Neutrophils % 70.3 %; Platelet Count 392 10^3/uL (130-400); RBC 4.94 10^6/uL (3.93-5.22); RDW 19.8 % (11.7-14.6); WBC 12.04 10^3/uL (4.4-10.8)
[2024-07-01 12:54] LABS: Absolute Basophil Count 0.08 10^3/uL (0.0-0.2)
[2024-07-01] MEDS: Omnipaque 350 MG/ML 100 ML BTL 75 ML IJ (13:01)
[2024-07-01] MEDS: Normal Saline - Diluent 50 ML VIAL IJ (13:02)
[2024-07-01 13:05] LABS: ALT 22 U/L (14-59); AST 15 U/L (15-37); Albumin 3.3 g/dL (3.4-5.0); Alkaline Phosphatase 105 U/L (46-116); Anion Gap 11.6 mmol/L (3-11); BUN 18 mg/dL (7-18); Bilirubin, Total 0.4 mg/dL (0.2-1.0); CO2 21.4 mmol/L (21.0-32.0); CREATININE 0.9 mg/dL (0.55-1.02); Calcium 8.6 mg/dL (8.5-10.1); Chloride 107 mmol/L (98-107); Estimated GFR 79.85 (mL/min/1.73m2); Glucose 165 mg/dL (74-106); Potassium 3.3 mmol/L (3.5-5.1); Sodium 140 mmol/L (136-145)
[2024-07-01 14:27] LABS: Bilirubin Negative (Negative); Blood Large (Negative); Clarity Clear (Clear); Glucose Negative (Negative); Ketones Negative (Negative); Leukocyte Esterase Negative (Negative); Nitrite Negative (Negative); Specific Gravity <= 1.005 (1.005-1.025); Urobilinogen 0.2 mg/dL (Up to 0.2)
[2024-07-01 14:45] LABS: RBC >50 HPF (0-2); WBC 0-2 HPF (0-5)
[2024-07-01 14:46] LABS: Bacteria Rare HPF (Negative); C & S Indicated? No; Casts Negative LPF (Negative); Crystals Negative HPF (Negative); Epithelial Cells Few HPF (Negative); Mucus Negative (Negative)
[2024-07-01 14:54] VITALS: PULSE 71; RESP 16; TEMP 36.5; O2SAT 98
== END 2024-07-01 14:58 | disposition home or self-care (01) ==
PROVIDERS: Emergency Provider Registered Nurse Emergency; PCP Physician Assistant
DX: R10.2 Pelvic and perineal pain (principal); N93.8 Other specified abnormal uterine and vaginal bleeding; N13.2 Hydronephrosis with renal and ureteral calculous obstruction; I10 Essential (primary) hypertension; E78.5 Hyperlipidemia, unspecified; F17.290 Nicotine dependence, other tobacco product, uncomplicated
CPT/HCPCS: 36415; 80053; 99285; 74177; 81003; 81015; 85025; 99284; J3490

== ENCOUNTER 2024-07-17 07:45 | Day surgery (SDC) | payer MEDICARE, MEDICAID, SELFPAY ==
--- NOTE | 2024-07-16 19:57 | W.PM.DSUDISC ---
Date of service: 07/17/24 Discharge Plan Disposition Patient Disposition: Home Condition: Good Discharge Details Reason For Visit: Excision and closure of periumbilical cyst Attending Provider: Eric Connelly Primary Care Provider: Caleb Ballard Home Meds and New Rx's Prescriptions: Continued norethindrone acetate 5 mg tablet 5 mg PO DAILY Qty: 30 1RF ibuprofen 800 mg tablet 800 mg PO Q8H PRN (Reason: pain) Qty: 90 2RF mecobalamin (vitamin B12) 1,000 mcg tablet,chewable 1,000 mcg PO DAILY zolpidem [Ambien] 5 mg tablet 5 mg PO QHS PRN cholecalciferol (vitamin D3) 25 mcg (1,000 unit) tablet 25 mcg PO DAILY metformin 500 mg tablet 500 mg PO BID albuterol sulfate 90 mcg/actuation HFA aerosol inhaler 1 inh inhalation ONCE atorvastatin 20 mg tablet 20 mg PO DAILY pregabalin [Lyrica] 150 mg Capsule 150 mg PO DAILY folic acid 1 mg tablet 1 mg PO DAILY Patient Comments: TAKE 1 TABLET BY MOUTH DAILY propranolol 20 mg tablet 20 mg PO DAILY Patient Comments: TAKE 1 TABLET BY MOUTH TWICE DAILY NEEDED FOR ANXIETY Linzess 290 mcg capsule 290 mcg PO DAILY Patient Comments: TAKE 1 CAPSULE BY MOUTH DAILY ferrous sulfate [iron] 325 mg (65 mg iron) Tablet 325 mg PO DAILY topiramate 100 mg tablet 1 tab PO HS Patient Comments: TAKE 1 TABLET BY MOUTH EVERY NIGHT Discharge Instructions Additional Instructions: Ruby was great seeing you today, and I hope you feel well after the procedure. Things went very smoothly. I made a small incision, and removed the cyst just like we talked about beforehand. It appears all consistent with an epidermal inclusion cyst. That poses no risk to your health or wellbeing, and excision should be a definitive treatment. I was able to get this closed with a few stitches underneath of your skin that will be absorbed over time, and some surgical skin glue, so you do not have any stitches that need to be removed. The surgical glue has a little bit of a purple tint to it, and you will notice that as you wash the incision. You can use warm soapy water all over this, and you do not need to put any bandages on it. As we talked about beforehand, it is probably smart to use some ice packs over the incision over the next 24 to 48 hours to help with swelling and pain. Tylenol and ibuprofen will also be very useful. It will probably take a week or 2 for all of that surgical glue to rinse off in the shower. As long as the incision feels okay, and there is no redness or any drainage, you do not need any specific follow-up in the office. Certainly, if you have any questions at all, please do not hesitate to call 1. Resume all of your regular medications. 2. Use ice packs over the incision for pain and swelling for the next 48 hours 3. Alternate over the counter tylenol and ibuprofen every 6 hours for the first 2 days. Then use as needed. 4. Starting on Tuesday, shower with warm soapy water. Pat dry. 5. Call the office (or go directly to the emergency room after hours) if you notice any of the following: Develop chills (warm to touch), or if you have a thermometer and your temperature is above 101 Difficulty breathing or difficultly swallowing Persistent vomiting Any bleeding ? exceeding one tablespoon 6. Call your physician if the site where your intravenous was started becomes red, swollen, painful, and warm to touch. Activity:: Activity as Tolerated Remove Dressings/Wound Care:: 24 hours Shower/Bathe:: 24 hours Diet:: As Tolerated Discharge Orders Discharge Orders: Discharge Order (Routine); Ordered 07/16/24 Ordered By: Eric Connelly
--- NOTE | 2024-07-16 20:00 | W.PM.OP ---
Operative Note Operative Note PRE-OP DIAGNOSIS: Epidermoid cyst POST-OP DIAGNOSIS: same PROCEDURE: Excision and closure of suprapubic epidermal inclusion cyst SURGEON: Eric Connelly ANESTHESIA TYPE: Local By Surgeon and General:No Airway Refer to Anesthesia Record ESTIMATED BLOOD LOSS: 5 PATHOLOGY: none sent COMPLICATIONS: None Patient was transported to: same day Patient's condition: stable Indications: Ruby is a 44-year-old woman with a painful epidermal inclusion cyst in the suprapubic area Procedure Description: I met with Ruby in the preoperative area, and we reviewed the interval history. We identified the lesion together, and it was marked. I explained the procedure for excision and closure, and what to expect afterwards. She had the chance to ask any other questions. After that, we moved back to the operating room. She stayed on the hospital stretcher, and after initiation of anesthesia, I prepped the suprapubic area. This was draped appropriately. I established a generous field block using local anesthetic with epinephrine. Next, I made semielliptical incisions on each side of the lesion. I dissected down sharply into the subcutaneous fat, and the skin and what appeared all consistent with an epidermal inclusion cyst from the surrounding fat. This was all sharply excised. The incision length was 1 cm x 0.75 cm wide. With the wound bed clean, it was carefully examined. It was hemostatic. Skin was reapproximated with interrupted Vicryl stitches, and the skin layer was closed with surgical glue. The patient was then brought back to the same-day surgery unit. Date of Procedure: 07/17/24
[2024-07-17] VITALS (11 sets, daily range): BP systolic 80–112; BP diastolic 41–64; PULSE 60–69; RESP 16–18; TEMP 36.3–36.5; O2SAT 94–99; BMI 27.3
--- NOTE | 2024-07-17 08:13 | W.PREOPHP ---
Assessment and Plan Assessment and plan (1) Abdominal wall cellulitis: Status: Acute Assessment and plan: We reviewed the plan for excision and primary closure of an anterior abdominal wall epidermoid cyst. For back identified the location in question, and affirmed that that was the correct lesion. We can proceed with excision as planned. History of Present Illness History of Present Illness Chief Complaint: Suprapubic cyst Narrative: Ruby is 44 years old. She has a cyst on the anterior abdominal wall that causes pain, especially with various movements, such as bending over. Although it has drained some fluid in the past, since her last office visit has been relatively stable. 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 (Acute) Osteomyelitis (Acute) Dystrophy of nail due to trauma (Acute) Contusion of left foot (Acute) Displaced fracture of proximal phalanx of left lesser toe(s), initial encounter for closed fracture (Acute) Acute oral pain (Acute) Jaw pain (Acute) Right carpal tunnel syndrome (Acute) S/P ECTR: 08/13/2020 Right wrist sprain (Acute) Sprain of forearm, right (Acute) Vitamin B12 deficiency (Acute) Acute pain of right wrist (Acute) Carpal tunnel syndrome (Acute) Gastric ulcer (Acute) Knee sprain (Acute) Knee contusion (Acute) Knee fracture (Acute) Bilateral kidney stones (Acute 11/04/15) Abdominal wall cellulitis (Acute) Constipation due to pain medication (Acute) Neuropathic pain (Acute) Abdominal pain (Acute) Patellofemoral syndrome, right (Acute) Right knee pain (Acute) History of hernia surgery (Chronic) Abdominal hernia (Acute) just above umbilicus Recurrent umbilical hernia with incarceration (Acute) Medical History Headache Phantosmia Hyperlipidemia Hair loss Radicular pain Smoker History of IBS History of prediabetes Low back pain Obesity Tobacco dependence Generalized anxiety disorder Myofascial pain syndrome Pain, joint, knee, left Vitamin B12 deficiency (non anemic) Vitamin D deficiency Peripheral neuropathy Diarrhea due to drug Postoperative seroma Hematuria Hiatal hernia IBS (irritable bowel syndrome) GERD (gastroesophageal reflux disease) Insomnia Prediabetes Bilateral lower extremity edema Asthma stable. no exacerbations for 1 yr. Hypertension Abdominal pain chronic RLQ pain that did not improve with ureteroscopy. LUQ pain. W/U at [facility]. Pt thinks that she has hiatal hernia. No evidence on imaging studies. 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 Surgical History Hx of esophagogastroduodenoscopy History of hernia repair Status post Molyl fundoplication bone spur R foot. Ligation of fallopian tube Tooth extraction Family History Mother Diabetes Father Epilepsy Social History (Updated 07/04/24 @ 11:32 by Demetra Eli) Smoking/Tobacco Use Status: Current every day Tobacco Type: e-cigarettes Second Hand Exposure: No Smoking risk assessment performed?: Yes Alcohol Intake: never Drug use: Never Substance use type: does not use Household members: none Housing: apartment Number of Children: 4 current occupation: Disabled Sexually active: Yes Current gender identity: female What is your relationship status?: living with partner Panel score (0-1 are the most socially isolated patients): 1 What type of physical activity do you participate in: none Additional Social history: [employer] Female Reproductive History Menstrual Age of Menarche: 10 Duration of menses: 6-7 days control method: none History History 4 Para Hx # Term Pregnancies Multiple births Hx # Pregnancies Ectopic pregnancies AB induced Hx Number of Living Children AB spontaneous Past Pregnancies Del. Date GA/Weeks # Preg Succ Route Wgt Sex Labor Lgth Anesthesia Location Prov Complic 05/12/94 vaginal 04/21/96 vaginal 04/12/97 vaginal 05/06/99 vaginal Meds Allergies and Home Medications Allergies Allergy/AdvReac Type Severity Reaction Status Date / Time lisinopril AdvReac Mild cough Verified 07/17/24 08:11 hydrocodone AdvReac Headache Verified 07/17/24 08:11 Penicillins AdvReac Other (See Verified 07/17/24 08:11 Comment) Home Medications ?Medication ?Instructions ?Recorded ?Confirmed ?Type pregabalin 150 mg capsule (Lyrica) 150 mg PO DAILY 05/30/20 07/17/24 History atorvastatin 20 mg tablet 20 mg PO DAILY 06/18/20 07/17/24 History folic acid 1 mg tablet 1 mg PO DAILY 12/20/20 07/17/24 History linaclotide 290 mcg capsule 290 mcg PO DAILY 12/20/20 07/17/24 History (Linzess) propranolol 20 mg tablet 20 mg PO DAILY 12/20/20 07/17/24 History ferrous sulfate 325 mg (65 mg 325 mg PO DAILY 08/03/21 07/17/24 History iron) tablet (iron) topiramate 100 mg tablet 1 tab PO HS 08/03/21 07/17/24 History mecobalamin (vitamin B12) 1,000 1,000 mcg PO DAILY 04/02/22 07/17/24 History mcg chewable tablet zolpidem 5 mg tablet (Ambien) 5 mg PO QHS PRN 04/02/22 07/17/24 History albuterol sulfate 90 mcg/actuation 1 inh inhalation ONCE 11/11/23 07/17/24 History aerosol inhaler cholecalciferol (vitamin D3) 25 25 mcg PO DAILY 11/11/23 07/17/24 History mcg (1,000 unit) tablet metformin 500 mg tablet 500 mg PO BID 11/11/23 07/17/24 History ibuprofen 800 mg tablet 800 mg PO Q8H PRN pain #90 tabs 07/04/24 07/17/24 Rx norethindrone acetate 5 mg tablet 5 mg PO DAILY #30 tabs 07/04/24 07/17/24 Rx Exam Const General: cooperative and not in acute distress Neck Neck: normal visual inspection, no lymphadenopathy and supple Resp Effort & Inspection: normal respiratory effort Auscultation: clear to auscultation bilaterally Cardio Jugular venous pressure: no JVD Rate: regular rate Rhythm: regular rhythm Heart Sounds: S1 normal and S2 normal GI Inspection: normal to inspection Palpation: soft, no guarding, no hernias and nontender Percussion: normal to percussion Auscultation: normal bowel sounds Skin Other: There is a small less than 1 cm cyst in the suprapubic region with some surrounding erythema. Neuro General: patient alert, patient awake and patient oriented x3 Psych Appearance: grossly normal
--- NOTE | 2024-07-17 08:40 | W.ANESPRE ---
General Info Date of Service Date Performed: 07/17/24 Height: 4 ft 11 in Weight: 61.3 kg Body Mass Index (BMI): 27.3 Surgical Procedure: Operation Date: 07/17/24 09:40 Proposed Procedure Side Surgeon p Excision of Sebaceous Cyst Suprapubic Eric Connelly MD Actual Procedure Side Surgeon p Excision of Sebaceous Cyst Suprapubic Eric Connelly MD Pre-Op Diagnosis Post-Op Diagnosis Anterior abdominal wall epidermoid cyst Anterior abdominal wall epidermoid cyst Meds Allergies and Home Medications Allergies Allergy/AdvReac Type Severity Reaction Status Date / Time lisinopril AdvReac Mild cough Verified 07/17/24 08:11 hydrocodone AdvReac Headache Verified 07/17/24 08:11 Penicillins AdvReac Other (See Verified 07/17/24 08:11 Comment) Home Medication ?Medication ?Instructions ?Recorded pregabalin 150 mg capsule (Lyrica) 150 mg PO DAILY 05/30/20 atorvastatin 20 mg tablet 20 mg PO DAILY 06/18/20 folic acid 1 mg tablet 1 mg PO DAILY 12/20/20 linaclotide 290 mcg capsule 290 mcg PO DAILY 12/20/20 (Linzess) propranolol 20 mg tablet 20 mg PO DAILY 12/20/20 ferrous sulfate 325 mg (65 mg 325 mg PO DAILY 08/03/21 iron) tablet (iron) topiramate 100 mg tablet 1 tab PO HS 08/03/21 mecobalamin (vitamin B12) 1,000 1,000 mcg PO DAILY 04/02/22 mcg chewable tablet zolpidem 5 mg tablet (Ambien) 5 mg PO QHS PRN 04/02/22 albuterol sulfate 90 mcg/actuation 1 inh inhalation ONCE 11/11/23 aerosol inhaler cholecalciferol (vitamin D3) 25 25 mcg PO DAILY 11/11/23 mcg (1,000 unit) tablet metformin 500 mg tablet 500 mg PO BID 11/11/23 ibuprofen 800 mg tablet 800 mg PO Q8H PRN pain #90 tabs 07/04/24 norethindrone acetate 5 mg tablet 5 mg PO DAILY #30 tabs 07/04/24 Current Visit Medications: Current Medications Generic Name Dose Route Start Last Admin Trade Name Freq PRN Reason Stop Dose Admin Ringer's Solution 1,000 mls @ 80 mls/hr 07/17/24 06:00 IV 07/17/24 23:59 [facility] IV Miscellaneous Supplies 1 each 07/17/24 06:00 Iv Access IV 07/17/24 23:59 DIRECTED JANETT Morphine Sulfate 2 mg 07/16/24 20:00 Morphine 4 Mg/Ml Syr IVP 08/15/24 19:59 Q1H PRN PRN Sodium Chloride 0 ml 07/17/24 06:00 Normal Saline Flush 10 Ml Syr IV 07/17/24 23:59 PRN PRN Sodium Chloride 0 ml 07/17/24 06:00 Normal Saline 10 Ml Vial IJ 07/17/24 23:59 DIRECTED PRN Sterile Water 0 ml 07/17/24 06:00 Water,Injection,Sterile 10 Ml Vial IJ 07/17/24 23:59 DIRECTED PRN Tramadol HCl 50 mg 07/16/24 20:00 Tramadol 50 Mg Tab PO 08/15/24 19:59 Q6H PRN PRN Pain PFSH Active Problems Active Problems: Problem Status Onset Code Abdominal pain Acute R10.9 Abnormal vaginal bleeding in premenopausal patient Acute N92.4 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 Acute S92.502K Osteomyelitis Acute M86.9 Dystrophy of nail due to trauma Acute L60.3 Contusion of left foot Acute S90.32XA Displaced fracture of proximal phalanx of left lesser toe(s), initial encounter for closed fracture Acute S92.512A Acute oral pain Acute K13.79 Jaw pain Acute R68.84 Right carpal tunnel syndrome Acute G56.01 Right wrist sprain Acute S63.501A Sprain of forearm, right Acute S63.501A Vitamin B12 deficiency Acute E53.8 Acute pain of right wrist Acute M25.531 Carpal tunnel syndrome Acute G56.00 Gastric ulcer Acute K25.9 Knee sprain Acute S83.90XA Knee contusion Acute S80.00XA Knee fracture Acute [id number] Bilateral kidney stones Acute 11/04/15 N20.0 Abdominal wall cellulitis Acute L03.311 Constipation due to pain medication Acute K59.03 Neuropathic pain Acute M79.2 Abdominal pain Acute R10.9 Patellofemoral syndrome, right Acute M22.2X1 Right knee pain Acute M25.561 History of hernia surgery Chronic Z98.890, Z87.19 Abdominal hernia Acute K46.9 Recurrent umbilical hernia with incarceration Acute K42.0 Medical History Medical History Headache Phantosmia Hyperlipidemia Hair loss Radicular pain Smoker History of IBS History of prediabetes Low back pain Obesity Tobacco dependence Generalized anxiety disorder Myofascial pain syndrome Pain, joint, knee, left Vitamin B12 deficiency (non anemic) Vitamin D deficiency Peripheral neuropathy Diarrhea due to drug Postoperative seroma Hematuria Hiatal hernia IBS (irritable bowel syndrome) GERD (gastroesophageal reflux disease) Insomnia Prediabetes Bilateral lower extremity edema Asthma stable. no exacerbations for 1 yr. Hypertension Abdominal pain chronic RLQ pain that did not improve with ureteroscopy. LUQ pain. W/U at [facility]. Pt thinks that she has hiatal hernia. No evidence on imaging studies. 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 Surgical History Surgical History Hx of esophagogastroduodenoscopy History of hernia repair Status post Molly fundoplication bone spur R foot. Ligation of fallopian tube Tooth extraction Tobacco Smoking/Tobacco Use Status: Current every day Tobacco Type: e-cigarettes Second hand exposure: No Alcohol Alcohol Intake: never Substance Use Substance use: Never Substance use type: does not use Prental History History 4 Para Hx # Term Pregnancies Multiple births Hx # Pregnancies Ectopic pregnancies AB induced Hx Number of Living Children AB spontaneous Past Pregnancies Del. Date GA/Weeks # Preg Succ Route Wgt Sex Labor Lgth Anesthesia Location Prov Complic 05/12/94 vaginal 04/21/96 vaginal 04/12/97 vaginal 05/06/99 vaginal Vital Signs and Lab Results Vital Signs Most Recent Vital Signs in EMR: Most Recent Vital Signs Temp Pulse Resp BP Pulse Ox 36.4 C L 60 18 112/64 99 07/17/24 08:15 07/17/24 08:15 07/17/24 08:15 07/17/24 08:15 07/17/24 08:15 Point of Care Results Point of Care Results: POC- Test(urine) Negative 07/17/24 08:24 Lab Results Blood Type / Crossmatch: No Data to Display Complete Blood Count: White Blood Count 12.04 10^3/uL (4.4-10.8) H 07/01/24 12:38 Red Blood Count 4.94 10^6/uL (3.93-5.22) 07/01/24 12:38 Hemoglobin 10.7 g/dL (11.2-15.7) L 07/01/24 12:38 Hematocrit 35.1 % (36.0-46.0) L 07/01/24 12:38 Platelet Count 392 10^3/uL (130-400) 07/01/24 12:38 Complete Metabolic Panel: Sodium 140 mmol/L (136-145) 07/01/24 12:38 Potassium 3.3 mmol/L (3.5-5.1) L 07/01/24 12:38 Chloride 107 mmol/L (98-107) 07/01/24 12:38 Carbon Dioxide 21.4 mmol/L (21.0-32.0) 07/01/24 12:38 BUN 18 mg/dL (7-18) 07/01/24 12:38 Creatinine 0.9 mg/dL (0.55-1.02) 07/01/24 12:38 Est GFR (CKD-EPI 2020) 79.85 (mL/min/1.73m2) 07/01/24 12:38 Calcium 8.6 mg/dL (8.5-10.1) 07/01/24 12:38 Albumin 3.3 g/dL (3.4-5.0) L 07/01/24 12:38 Glucose 165 mg/dL (74-106) H 07/01/24 12:38 Liver Function Panel: Alanine Aminotransferase (ALT/SGPT) 22 U/L (14-59) 07/01/24 12:38 Aspartate Amino Transf (AST/SGOT) 15 U/L (15-37) 07/01/24 12:38 Coagulation Panel: No Data to Display Cardiac Panel: No Data to Display Arterial Blood Gas: No Data to Display Venous Blood Gas: No Data to Display Pancreas Panel: No Data to Display Thyroid Panel: No Data to Display Infectious Disease: No Data to Display Blood Cultures: No Data to Display Toxicology Panel: No Data to Display Panel: No Data to Display Anesthesia Assessment and Plan Anesthesia History Personal History: No History of Anesthesia Complications Family History: No Family History of Anesthesia Complications Exercise Tolerance Exercise Tolerance: Metabolic Equivalents>4 Pertinent Negatives Pertinent Negatives: No Symptoms of GERD Cardiac & Pulmonary Exam Cardiac Exam: Normal S1/S2 Heart Sounds Pulmonary Exam: Clear Bilateral Breath Sounds Implantable Cardiac Device Does patient have a Pacemaker or an ICD?: No Airway Exam Known Difficult Airway: No Mallampati Class: 2 Mouth Opening: Normal (> 3cm) Thyromental Distance: Greater than 3 cm Neck Range of Motion: Full ROM Neck Circumference: Normal Teeth Condition: Normal Dentition (Poor dentition on bottom) and Removable Dentures/Plates Upper (Upper) ASA Classification ASA Score: ASA 2 Emergency Case?: No NPO Status NPO Status: NPO Clears >2 hours, Solids >8 hours Status Status: Negative HCG Anesthesia Plan Resuscitation Status: Full Code Anesthesia Technique: General Anesthesia Airway Planned: Natural Airway Monitors Used: Standard Monitors
[2024-07-17] MEDS: Normal Saline 1,000 ML 80 ML IV (08:46)
[2024-07-17] MEDS: Lactated Ringers 1,000 ML 80 ML IV (08:47)
[2024-07-17] MEDS: Bupivacaine 0.25% Pres-Free W/EPI 30 ML VIAL (09:03)
--- NOTE | 2024-07-17 09:42 | W.ANESPOSTOP ---
Postoperative Evaluation Date, Time and Location Date Performed: 07/17/24 Time Performed: 09:42 Patient Location: Day Surgery Unit Vital Signs Most Recent Imported Vital Signs: Most Recent Vital Signs Temp Pulse Resp BP Pulse Ox 36.3 C L 62 16 89/46 L 94 07/17/24 09:21 07/17/24 09:37 07/17/24 09:21 07/17/24 09:37 07/17/24 09:32 Pain Score Most Recent Pain Score: Most Recent Pain Score Pain Level 7 07/17/24 09:32 Assessment Mental Status: Awake (Alert & Oriented to Patient Baseline) Airway and Respiratory Function: Patent airway with normal (patient baseline) respiratory exam Cardiovascular Function: Hemodynamically Stable Hydration Status: Adequately Hydrated Nausea & Vomiting: No Nausea or Vomiting Pain: Pt. Denies Any Pain Peripheral Nerve Block: Patient did not receive a nerve block
== END 2024-07-17 11:00 | disposition home or self-care (01) ==
LOC: SUR 07:46
PROVIDERS: PCP Physician Assistant; Visit Provider Surgery
PROC: (CPT 11401; principal; 2024-07-17 09:30)
DX: L72.0 Epidermal cyst (principal)
CPT/HCPCS: 11401; J2250; J2704

== ENCOUNTER 2024-07-30 00:20 | Outpatient (CLI) | payer MEDICARE, MEDICAID, SELFPAY ==
--- NOTE | 2024-07-30 08:30 | DI.US_ITS ---
Exam(s) US PELVIS TRANSVAGINAL EXAM: US PELVIS TRANSVAGINAL CLINICAL HISTORY: abnl uterine bleeding,n92.4 TECHNIQUE: Transabdominal and transvaginal imaging was performed using standard protocol. COMPARISON: CT CT ABDOMEN PELVIS W from 07/01/2024 FINDINGS: UTERUS: Anteverted. 8.4 x 5.8 by 7.3 cm Endometrium: 7 mm Myometrium: Mildly heterogeneous peer Cervix: Single small nabothian cyst. OVARIES: Right: Cyst or mass: 1.8 centimeter follicle. Left: Cyst or mass: 1.2 centimeter follicle. DOPPLER: Color: Symmetric and uniform flow to both ovaries. No hyperemia. CUL-DE-SAC: Free fluid: None. IMPRESSION: 1. Mildly heterogeneous myometrium. Endometrial stripe within normal limits. 2. Unremarkable bilateral ovaries. DATA REPOSITORY:
== END 2024-07-30 00:40 ==
LOC: DI 00:20
PROVIDERS: PCP Physician Assistant; Visit Provider Nurse Practitioner Women's Health
DX: N92.4 Excessive bleeding in the premenopausal period (principal); N85.2 Hypertrophy of uterus
CPT/HCPCS: 76830; 76856

== ENCOUNTER 2024-08-08 00:21 | Outpatient (CLI) | payer MEDICARE, MEDICAID, SELFPAY ==
--- NOTE | 2024-08-08 11:34 | DI.RAD_ITS ---
Exam(s) XR TOE LT FIFTH XR FOOT LT COMPLETE EXAM: XR FOOT LT COMPLETE CLINICAL HISTORY: 5th met head displaced fx toe lt foot, s92.502k. TECHNIQUE: 2D digital imaging was performed. Three views. COMPARISON: CR XR FOOT LT COMPLETE from 01/31/2024 CR XR FOOT LT COMPLETE from 04/25/2024 CR XR FOOT LT COMPLETE from 06/25/2024 CR XR TOE LT FIFTH from 08/08/2024 FINDINGS: BONES: The fracture at the proximal phalanx of the the 5th toe appears to have healed. There is dist the diffuse periarticular osteopenia. The findings appear similar to the more recent exam appeared of the increasing over time. There is a stable erosion at the base of the 5th metatarsal. No acute fracture is present. No bony destructive lesion is seen. JOINTS: No dislocation present. SOFT TISSUE: Normal. IMPRESSION: The 5th proximal phalangeal fracture appears healed DATA REPOSITORY: RADIATION DOSE DELIVERED:
== END 2024-08-08 00:41 ==
LOC: DI 00:22
PROVIDERS: PCP Physician Assistant; Visit Provider Podiatrist
DX: S92.512D Displaced fracture of proximal phalanx of left lesser toe(s), subsequent encounter for fracture with routine healing (principal); X58.XXXD Exposure to other specified factors, subsequent encounter
CPT/HCPCS: 73630; 73660

== ENCOUNTER → 2024-08-15 11:11 | Outpatient (BNVA) | payer MEDICARE, MEDICAID, SELFPAY | PROVIDERS: PCP Physician Assistant; Referring Provider Physician Assistant; Visit Provider Podiatrist | DX: S92.512K Displaced fracture of proximal phalanx of left lesser toe(s), subsequent encounter for fracture with nonunion (principal); S90.32XD Contusion of left foot, subsequent encounter; D49.2 Neoplasm of unspecified behavior of bone, soft tissue, and skin; L60.3 Nail dystrophy; M79.672 Pain in left foot; M86.8X7 Other osteomyelitis, ankle and foot; G57.92 Unspecified mononeuropathy of left lower limb; X58.XXXD Exposure to other specified factors, subsequent encounter | CPT/HCPCS: 99214 ==

== ENCOUNTER 2024-08-21 14:48 | Outpatient (REF) | payer MEDICARE, MEDICAID, SELFPAY | END 2024-08-21 14:49 | disposition home or self-care (01) | LOC: LBN 14:48 | PROVIDERS: PCP Physician Assistant; Visit Provider Obstetrics & Gynecology | DX: R10.9 Unspecified abdominal pain (principal); N85.8 Other specified noninflammatory disorders of uterus | CPT/HCPCS: 88305; 87086 ==

== ENCOUNTER 2024-09-07 00:03 | Outpatient (CLI) | payer MEDICARE, MEDICAID, SELFPAY ==
--- NOTE | 2024-09-07 07:15 | DI.MRI_ITS ---
Exam(s) MR LOWER EXTREMITY LT WO/W CLINICAL HISTORY: Osteopenia vs osteoporosis vs bone tumor 5 met head. TECHNIQUE: Multiplanar multisequence MRI was performed. CONTRAST MATERIAL: IV Contrast: 12 mL of Dotarem contrast administered. COMPARISON: Plain films 08 August 2024 FINDINGS: BONES/JOINTS: No acute fracture or contusion pattern. The marrow signal appears homogeneous. Old fracture deformity of the proximal phalanx of the 5th toe. No suspicious bone lesions identified. No bony erosions. MUSCULOTENDINOUS STRUCTURES: Achilles tendon is intact. The planar fascia is unremarkable. The medial flexor, anterior extensor, and peroneal tendons are intact. SOFT TISSUES: Unremarkable. ENHANCEMENT: No suspicious enhancement identified. IMPRESSION: No evidence of lesion in the 5th metatarsal head. No evidence of erosion at the base of the proximal phalanx. 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 DATA REPOSITORY:
[2024-09-07] MEDS: Normal Saline Flush 10 ML SYR IVP (12:46)
[2024-09-07] MEDS: Gadoterate meglumine 20 ML SYRINGE 12 ML IVP (12:47)
== END 2024-09-07 00:23 ==
LOC: DI 00:03
PROVIDERS: PCP Physician Assistant; Visit Provider Podiatrist
DX: M81.0 Age-related osteoporosis without current pathological fracture (principal); D49.2 Neoplasm of unspecified behavior of bone, soft tissue, and skin
CPT/HCPCS: 73720